=== PATIENT | female | born 1940 | race Caucasian/White ===

== ENCOUNTER 2021-09-23 14:32 | Emergency (ER) | payer MEDICARE, BC, SELFPAY ==
[2021-09-23 15:03] VITALS: BP 169/68; PULSE 57; RESP 18; TEMP 36.4; O2SAT 97; BMI 26.0
--- NOTE | 2021-09-23 16:29 | CRLHL7_ITS ---
For Patients: As a result of the Century Cures Act, medical imaging exams and procedure reports are released immediately into your electronic medical record. You may view this report before your referring provider. If you have questions, please contact your health care provider. Indication: Trauma. Technique: Three views of the left shoulder. Comparison: None. Findings/impression: Bones: Generalized demineralization of visualized bones. Displaced mildly comminuted fracture of the proximal humerus.. The humeral head appears to be in alignment with the glenoid. The fractured neck of the humerus is displace superior medially. Joint spaces: Unremarkable. Soft tissues: Soft tissue swelling surrounding the fracture site.. Dictated by Melissa De La Cruz MD @ 09/23/2021 6:46:20 PM (Electronically Signed)
--- NOTE | 2021-09-23 16:29 | CRLHL7_ITS ---
For Patients: As a result of the Century Cures Act, medical imaging exams and procedure reports are released immediately into your electronic medical record. You may view this report before your referring provider. If you have questions, please contact your health care provider. Indication: Wrist injury. Technique: Three views. Comparison: . Findings/impression: Bones: Demineralization of the visualized bones. There is comminuted intra-articular minimally displaced fracture of the distal radius and ulna.. Joint spaces: Severe degenerative changes in the visualized wrist and hand. . Soft tissues: Soft tissue swelling surrounding the fracture site.. Dictated by Melissa De La Cruz MD @ 09/23/2021 6:43:53 PM (Electronically Signed)
[2021-09-23] MEDS: ACETAMINOPHEN 500 MG TABLET 1000 MG PO (16:37)
[2021-09-23 17:14] VITALS: BP 135/79; PULSE 61; O2SAT 98
[2021-09-23 17:41] VITALS: BP 184/58; PULSE 59; O2SAT 98
[2021-09-23 18:00] VITALS: BP 177/54; PULSE 61; O2SAT 97
[2021-09-23 18:30] VITALS: BP 173/59; PULSE 60; O2SAT 96
[2021-09-23 19:00] VITALS: BP 176/61; PULSE 63; O2SAT 95
--- NOTE | 2021-09-23 19:06 | ED_ITS ---
HPI - General Adult General Date Seen: 09/23/21 Chief complaint: Shoulder Injury/Pain Stated complaint: Fall w/Head Lac, Left Shoulder Pain Time Seen by Provider: 09/23/21 16:21 Source: patient History of Present Illness HPI narrative: Patient is an 80-year-old woman who is here with her fiance, arrives from home after having a fall. She says that her legs got twisted together and she fell, she caught herself with her left arm, she complains of pain primarily in the left shoulder although her left wrist hurts as well. She hit her face on the ground as well and the left side of her glasses cut her eyebrow as well. She denies any loss of consciousness, she does not have any headache or neck pain. She does not take any blood thinners. She is right-handed. She denies any other traumatic complaints, such as chest or back pain, shortness of breath, abdominal pain. She does not have any complaints of weakness or numbness in the left arm. Related Data Home Medications Medication Instructions Recorded Confirmed alendronate 70 mg tablet mg PO 09/23/21 cefdinir 300 mg capsule mg 09/23/21 furosemide 40 mg tablet mg 09/23/21 hydroxychloroquine 200 mg tablet mg PO 09/23/21 methotrexate sodium 2.5 mg tablet mg 09/23/21 prednisone 1 mg tablet mg 09/23/21 Allergies Allergy/AdvReac Type Severity Reaction Status Date / Time Opioids - Morphine Analogues Allergy Verified 09/23/21 16:37 Review of Systems Status of ROS: Reports: 10 or more systems reviewed and unremarkable except as noted in History and below [facility] Social History Smoking Status: Never smoker Do you use any of these nicotine containing products: None Second hand tobacco smoke exposure: No How often do you have a drink containing alcohol: never How often do you have six or more drinks on one occasion: Never AUDIT-C Alcohol total score: 0 Non-prescribed substance use: denies use Exam Narrative: Exam Narrative: Vital signs as noted below. In general, an alert, nontoxic elderly woman. Head: Normocephalic. She has a 1 cm laceration along the left brow ridge laterally. The knee is controlled. Eyes: Pupils are equal reactive. Extraocular movements are full. Conjunctivae are normal. ENT: Mucous membranes are moist. She has bruising noted lateral to the left eye. She has no bony tenderness or deformity. Dentition is intact. Jaws nontender. Neck: Supple without lymphadenopathy. No bony tenderness. Heart: Regular rate and rhythm. No murmur or rub. Lungs: Clear bilaterally. No increased work of breathing, crackles or wheezes. Chest is atraumatic. Abdomen: Soft and nontender. No organomegaly. Back: Nontender to palpation. Extremities: Well perfused. Pulses intact bilaterally. On the left, she has swelling and tenderness of the left shoulder, swelling, bruising and tenderness of the left wrist. Radial pulses intact, distal CMS normal. Pain with range of motion of the left hand. Neurologic: Patient is alert and oriented to person and place. Speech is fluent. Face is symmetric. Moves all extremities equally. Affect: Normal. Skin: Warm and dry. Well perfused. Const: Vital Signs, click to edit/add: Vital Signs - 24 hr 09/23/21 15:03 09/23/21 17:14 09/23/21 17:41 Temperature 97.6 F Pulse Rate [Right Pulse Oximeter] 57 L 61 59 L Respiratory Rate 18 Blood Pressure [Ri ght Upper Arm] 169/68 H 135/79 184/58 H Pulse Oximetry 97 98 98 09/23/21 18:00 Temperature Pulse Rate [Right Pulse Oximeter] 61 Respiratory Rate Blood Pressure [Ri ght Upper Arm] 177/54 H Pulse Oximetry 97 Documenting provider has reviewed patient's vital signs: yes Course Course Hospital Course: Following initial evaluation, I ordered x-rays of the left shoulder and left wrist. In terms of pain management, she says she does not do well with anything stronger than Tylenol. She did have Tylenol 1000 mg here, and we had ice on her shoulder as well. X-rays of the shoulder by my review show a proximal humerus fracture. Final radiology report is likewise read as showing a mildly displaced proximal humerus fracture. With regard to the wrist, by my review she has a minimally displaced fracture of the radius and ulna, she does not have significant angulation. This does involve the articular surface. Final radi ology review is of a comminuted intra-articular minimally displaced fracture of the distal radius and ulna. I do not think this requires any reduction, therefore I splinted it in place, sandwich splint using Ortho Glass and to Narendra wraps. She tolerated this well. CMS is intact. Procedure note: The laceration on her eyebrow was amenable to Dermabond. I cleaned it using normal saline, approximated the edges and closed with Dermabond. She tolerated this well. No immediate complication. We discussed routine wound care, return for signs of infection. Orthopedic follow-up early to mid next week. Tylenol and ice as needed. Vital Signs Vital signs: Initial Vital Signs Temperature 97.6 F 09/23/21 15:03 Temperature Source Temporal Artery Scan 09/23/21 15:03 Pulse Rate 57 L 09/23/21 15:03 Respiratory Rate 18 09/23/21 15:03 Blood Pressure 169/68 H 09/23/21 15:03 Blood Pressure Mean 101 09/23/21 15:03 Pulse Oximetry 97 09/23/21 15:03 Oxygen Delivery Method 09/23/21 15:03 Vital Signs Temperature 97.6 F 09/23/21 15:03 Pulse Rate 57 L 09/23/21 15:03 Respiratory Rate 18 09/23/21 15:03 Blood Pressure 169/68 H 09/23/21 15:03 Pulse Oximetry 97 09/23/21 15:03 Temperature 97.6 F 09/23/21 15:03 Pulse Rate 61 09/23/21 18:00 Respiratory Rate 18 09/23/21 15:03 Blood Pressure 177/54 H 09/23/21 18:00 Pulse Oximetry 97 09/23/21 18:00 Discharge Plan Discharge Clinical Impression: Closed fracture of left distal radius, Closed fracture of left proximal humerus, Laceration of eyebrow, left Patient Disposition: Home, Self-Care Condition: Improved Instructions: Arm Fracture in Adults (ED), Wrist Fracture in Adults (ED), Skin Adhesive Care (ED) Additional Instructions: Splint to remain in place until follow-up with Orthopedics. Sling to left arm as well for shoulder fracture. Tylenol as needed for pain, ice will help with your shoulder fracture as well. Return for signs of infection of your laceration. Glue will slough off on its own, but if this is taking longer than you would like, acetone nail Azerbaijani remover will help with dissolving the glue. Laceration should be healed in 7-10 days. Prescriptions: No Action furosemide 40 mg tablet 0RF Label Comments: TAKE 1/2 TABLET BY MOUTH TWICE DAILY alendronate 70 mg tablet PO 0RF Label Comments: TAKE ONE TABLET BY MOUTH EVERY 7 DAYS TAKE WITH 8OZ OF WATER ON AN. EMPTY STOMACH REMAIN UPRIGHT FOR 30MIN methotrexate sodium 2.5 mg tablet 0RF Label Comments: TAKE 5 TABLETS BY MOUTH EVERY WEEK prednisone 1 mg tablet 0RF Label Comments: TAKE 1 TABLET BY MOUTH EVERY DAY hydroxychloroquine 200 mg tablet PO 0RF Label Comments: TAKE 1 TABLET BY MOUTH TWICE DAILY cefdinir 300 mg capsule 0RF Label Comments: TAKE 1 CAPSULE (300 MG TOTAL) BY MOUTH EVERY 12 (TWELVE) HOURS FOR 10 DAYS. Follow Up/Referrals: Provider,Not a Local [Primary Care Provider] - Stand Alone Forms: MyHealth Info Instructions
== END 2021-09-23 19:56 | disposition home or self-care (01) ==
PROVIDERS: Emergency Provider Emergency Medicine
DX: S01.112A Laceration without foreign body of left eyelid and periocular area, initial encounter (principal); S52.502A Unspecified fracture of the lower end of left radius, initial encounter for closed fracture; S42.202A Unspecified fracture of upper end of left humerus, initial encounter for closed fracture; W01.0XXA Fall on same level from slipping, tripping and stumbling without subsequent striking against object, initial encounter
CPT/HCPCS: 29105; 73030; 73110; 99284; A9270

== ENCOUNTER 2021-10-04 05:08 | Inpatient (IN) | payer MEDICARE, BC, SELFPAY ==
[2021-10-04] VITALS (14 sets, daily range): BP systolic 107–196; BP diastolic 46–73; PULSE 62–80; RESP 14–20; TEMP 36.1–37; O2SAT 94–100; BMI 27.8
--- NOTE | 2021-10-04 05:55 | ED.NAVMDI ---
HPI - Nausea/Vomiting/Diarrhea General Time Seen by Provider: 05:40 Date Seen: 10/04/21 Chief complaint: Nausea/Vomiting Stated complaint: nausea Time Seen by Provider: 10/04/21 05:17 Source: patient, RN notes reviewed and old records reviewed Mode of arrival: wheelchair History of Present Illness HPI Narrative: Vanessa is a very pleasant female with a history rheumatoid arthritis who comes to the emergency room with her niece for evaluation regarding nausea. Patient unfortunately fell on September 23 at which time she fractured her forearm as well as her left shoulder. She followed up with a preoperative physical but was told by orthopedics that her sodium was too low and therefore they could not operate. She initially attempted to control her pain with narcotics but these made her very sick and that she has been taking Tylenol every 4 hours. She notes at that nausea was intermittent but is now been persistent and she has not been eating. She also notes that she has not had a bowel movement in 4 days. She denies abdominal pain at this time. She has not had any vomiting. She denies a fever or chills. Patient also has continued left arm pain definitely worsened with any sort of movement. She also has itching of the skin on the volar distal humerus and volar forearm. Patient states that she is ?a mess?. She notes that she is not doing well alone at home but does not want to go to a chcf at this time. Associated nausea: Yes Related Data Home Medications Medication Instructions Recorded Confirmed alendronate 70 mg tablet 70 mg PO Q7D 09/23/21 10/04/21 cefdinir 300 mg capsule 300 mg PO Q12H 09/23/21 10/04/21 furosemide 40 mg tablet 20 mg PO BID 09/23/21 10/04/21 hydroxychloroquine 200 mg tablet 200 mg PO DAILY 09/23/21 10/04/21 methotrexate sodium 2.5 mg tablet 12.5 mg PO .weekly 09/23/21 10/04/21 prednisone 1 mg tablet 1 mg PO DAILY 09/23/21 10/04/21 carvedilol 25 mg tablet 25 mg PO BID 09/28/21 10/04/21 Previous Rx's Medication Instructions Recorded hydrocodone 5 mg-acetaminophen 325 1 - 2 tab PO Q4-6H PRN #25 tab 09/28/21 mg tablet Allergies Allergy/AdvReac Type Severity Reaction Status Date / Time Opioids - Morphine Analogues Allergy Verified 09/28/21 10:34 Review of Systems Status of ROS: Reports: 10 or more systems reviewed and unremarkable except as noted in History and below Const: Denies: fever or chills ENMT: Denies: throat pain Cardio: Denies: chest pain or shortness of breath with exertion Resp: Denies: shortness of breath or cough GI: Reports: nausea; Denies: abdominal pain or vomiting : Reports: other (Must cath herself.) Musculo: Denies: back pain Neuro: Denies: headache PFSH PFSH Medical History Back problem High blood pressure Osteoarthritis Rheumatoid arthritis Family History Mother Stroke Brother Diabetes Father No problems noted. Social History Smoking Status: Never smoker Do you use any of these nicotine containing products: None Second hand tobacco smoke exposure: No How often do you have a drink containing alcohol: never How often do you have six or more drinks on one occasion: Never AUDIT-C Alcohol total score: 0 Non-prescribed substance use: denies use Exam Const: Vital Signs, click to edit/add: Vital Signs - 24 hr 10/04/21 05:16 10/04/21 06:57 10/04/21 07:44 Temperature 98.6 F Pulse Rate [Right Pulse Oximeter] 62 65 68 Respiratory Rate 20 20 18 Blood Pressure [Ri ght Upper Arm] 186/62 H 162/58 H 149/57 H Pulse Oximetry 97 96 97 Documenting provider has reviewed patient's vital signs: yes Common normals: average body habitus and oriented x3 General appearance: other (Patient appears uncomfortable and is very guarded in movement of the left a) Other: Patient is very fatigued in appearance. HENMT: Common normals: normocephalic, head/scalp atraumatic and external ears normal Head and scalp: normocephalic and atraumatic External ear: external ears normal Eye: Common normals: PERRL and EOMs intact bilaterally Pupil: PERRL Other: healing laceration at left eyebrow. Resolving ecchymosis around left eye Neck & C-Spine: Common normals: full ROM and supple Resp: Common normals: normal respiratory effort and clear to auscultation bilaterally Effort & inspection: able to speak in complete sentences Auscultation: clear to auscultation bilaterally Cardio: Common normals: regular rate and regular rhythm Rate: regular rate Rhythm: regular rhythm GI: Common normals: Normal to inspection, nondistended, normoactive bowel sounds present, soft to palpation and non-tender Palpation: soft : Common normals: no CVA tenderness Bladder/kidney exam: no CVA tenderness Back & Pelvis: Common normals: no CVA tenderness Extremity: General: normal exam except as noted and other findings (Left arm ecchymosis and dependent hematoma left) Neuro: Anjana Coma Scale: document GCS findings [place] coma scale eye opening: Spontaneous (4) [place] coma scale verbal response: Orientated (5) [place]jana coma scale motor response: Obey commands (6) Anjana coma scale total score: 15 Common normals: oriented x3 Speech: speech normal Psych: Common normals: speech normal Appearance: grossly normal Activity/motor behavior: appropriate eye contact Speech: normal speech Insight: insight good Judgement: judgment good Course Course Hospital Course: Patient is noted to have had a fall 11 days ago and was told that she would not be able to have surgery because of hyponatremia. Unfortunately I cannot find any record of those values. Today we will check a comprehensive panel, CBC, amylase and lipase. Will also have an IV placed in give patient normal saline as she has had poor p.o. intake the past few days as well as Zofran. We did talk about the use of morphine and that she is intolerant to the narcotics but I do think with the Zofran pre dosing we may be able to adequately control her pain. In regards to her nausea this certainly could be related to constipation but may also be related to pain and consistent use of Tylenol. Will ensure recheck liver function test. Reevaluation(s) Reevaluation #1: Patient has had mild relief with 2 mg of morphine and 4 mg of Zofran. We will give her an additional 2 mg of morphine. Time: 06:50 Reevaluation #2: Patient noted to be feeling somewhat improved but nausea is returning. Will follow with 0 0.25 mg of Ativan. Laboratory values are returning but somewhat slowly. Will hold off on any abdominal radiological studies at this time. Patient does not think she can manage at home and yet is not interested in the possibility of chcf placement. Time: 07:15 Reevaluation #3: 0800: patient noted to now be vomiting. Will administer an additional 4mg of zofran. Sodium returns at 123. Awaiting POC creatinine as lab analyzer is down. patient signed out to Dr Lee for further lab and CT results Vital Signs Vital signs: Initial Vital Signs Temperature 98.6 F 10/04/21 05:16 Temperature Source Temporal Artery Scan 10/04/21 05:16 Pulse Rate 62 10/04/21 05:16 Respiratory Rate 20 10/04/21 05:16 Blood Pressure 186/62 H 10/04/21 05:16 Blood Pressure Mean 103 10/04/21 05:16 Blood Pressure Position Supine 10/04/21 05:16 Pulse Oximetry 97 10/04/21 05:16 Vital Signs Temperature 98.6 F 10/04/21 05:16 Pulse Rate 62 10/04/21 05:16 Respiratory Rate 20 10/04/21 05:16 Blood Pressure 186/62 H 10/04/21 05:16 Pulse Oximetry 97 10/04/21 05:16 Temperature 98.6 F 10/04/21 05:16 Pulse Rate 68 10/04/21 07:44 Respiratory Rate 18 10/04/21 07:44 Blood Pressure 149/57 H 10/04/21 07:44 Pulse Oximetry 97 10/04/21 07:44 MDM - Nausea/Vomiting/Diarrhea MDM Narrative Medical decision making narrative: Due to machine dysfunction in the lab we are still awaiting a lot of our chemistry values. Of note white count within normal limits with the exception of hemoglobin which is low at 9.2. Patient started vomiting in the ED. This had not been present previously. Will obtain CT of the abdomen and pelvis with contrast. Point of care troponin pending Given patient's hyponatremia will admit to the floor. Will speak with Dr. Oliva hospitalist. 1. Hyponatremia -123. Patient is receiving normal saline a 1000 mils over 2 hours. 2. Nausea vomiting-abdominal CT results pending 3. Pain from fracture-patient fractured left humerus and left forearm on September 23. Intolerant to narcotics at home and has been using Tylenol every 4 hours. Awaiting LFTs. Unable to tolerate NSAIDs given the use of methotrexate and prednisone for her rheumatoid arthritis. She has received morphine 2 mg x 2, Ativan 0.25 mg x 1, Zofran 4 mg x 2, and finally fentanyl 25 mcg IV. 4. Disposition-admit to [facility]. I have great concerns regarding her discharge status. I do believe she is in need of more care in the form of a chcf but she is adamant that she does not want to to the chcf. This patient is signed out to my partner Dr. Lee, for review of further available laboratory values and CT. Medical Records Attestation: I reviewed the patient's medical records. Medical records narrative: Have reviewed previous labs. Lab Data Lab results narrative: Laboratory values of CBC and lactate have been reviewed. Labs: Lab Results 10/04/21 10/04/21 10/04/21 Range/Units 06:17 06:17 06:17 WBC 6.34 (4.50-11.00) K/uL RBC 2.94 L (4.00-5.20) m/uL Hgb 9.2 L (12.0-16.0) gm/dL Hct 27.4 L (33.0-51.0) % MCV 93 (80-100) fL MCH 31 (26-34) pg MCHC 34 (32-36) gm/dL RDW Coeff of Randa 15.1 (11.5-15.5) % Plt Count 375 (140-440) K/uL Neut % (Auto) 72.2 H (42.0-72.0) % Lymph % (Auto) 16.1 L (20-44) % [place] % (Auto) 7.4 (0.0-11.0) % Eos % (Auto) 3.0 (0.0-7.0) % Baso % (Auto) 0.8 (0.0-3.0) % Neut # (Auto) 4.60 (1.7-7.0) K/uL Lymph # (Auto) 1.00 (0.90-2.90) K/uL [place] # (Auto) 0.50 (0.00-0.90) K/UL Eos # (Auto) 0.19 (0.00-0.50) K/uL Baso # (Auto) 0.05 (0.00-0.30) K/uL Abs Immat Gran (auto) 0.03 (0.00-0.30) K/uL Sodium 123 L* (135-149) mmol/L Potassium 3.8 (3.6-5.1) mmol/L Chloride 91 L (96-114) mmol/L Carbon Dioxide 25 (20-32) mmol/L Glucose 110 (60-115) mg/dL Lactate 0.7 (0.5-1.9) mmol/L POC Creatinine (0.6-1.3) mg/dl 10/04/21 Range/Units 08:30 WBC (4.50-11.00) K/uL RBC (4.00-5.20) m/uL Hgb (12.0-16.0) gm/dL Hct (33.0-51.0) % MCV (80-100) fL MCH (26-34) pg MCHC (32-36) gm/dL RDW Coeff of Randa (11.5-15.5) % Plt Count (140-440) K/uL Neut % (Auto) (42.0-72.0) % Lymph % (Auto) (20-44) % [place] % (Auto) (0.0-11.0) % Eos % (Auto) (0.0-7.0) % Baso % (Auto) (0.0-3.0) % Neut # (Auto) (1.7-7.0) K/uL Lymph # (Auto) (0.90-2.90) K/uL [place] # (Auto) (0.00-0.90) K/UL Eos # (Auto) (0.00-0.50) K/uL Baso # (Auto) (0.00-0.30) K/uL Abs Immat Gran (auto) (0.00-0.30) K/uL Sodium (135-149) mmol/L Potassium (3.6-5.1) mmol/L Chloride (96-114) mmol/L Carbon Dioxide (20-32) mmol/L Glucose (60-115) mg/dL Lactate (0.5-1.9) mmol/L POC Creatinine 0.8 (0.6-1.3) mg/dl Discharge Plan Discharge Clinical Impression: Pain due to fracture, Hyponatremia, Vomiting Patient Disposition: Admitted As Inpatient
[2021-10-04] MEDS: ONDANSETRON 2 MG/ML inj 4 MG IVP ×2 (06:10→08:22)
[2021-10-04] MEDS: 0.9 % SODIUM CHLORIDE 1000 ml 1,000 ML 500 ML IV (06:10)
[2021-10-04] MEDS: MORPHINE 4 MG/ML INJ 2 MG IVP (06:10)
[2021-10-04 06:25] LABS: Lactate* 0.7 mmol/L (0.5-1.9)
[2021-10-04 06:27] LABS: Basophils Absolute Auto 0.05 K/uL (0.00-0.30); Basophils Percent Auto 0.8 % (0.0-3.0); Eosinophils Absolute Auto 0.19 K/uL (0.00-0.50); Hematocrit 27.4 % (33.0-51.0); Hemoglobin* 9.2 gm/dL (12.0-16.0); Immature Granulocytes Abs Auto 0.03 K/uL (0.00-0.30); Lymphocytes Percent Auto 16.1 % (20-44); Mean Corpuscular HGB Conc 34 gm/dL (32-36); Mean Corpuscular Hemoglobin 31 pg (26-34); Mean Corpuscular Volume 93 fL (80-100); Monocytes Percent Auto 7.4 % (0.0-11.0); Neutrophils Percent Auto 72.2 % (42.0-72.0); Platelet Count* 375 K/uL (140-440); RDW Coefficient of Variation % 15.1 % (11.5-15.5); Red Blood Count 2.94 m/uL (4.00-5.20); White Blood Count* 6.34 K/uL (4.50-11.00)
[2021-10-04 06:29] LABS: Slide Review Reflex No
[2021-10-04] MEDS: MORPHINE 2 MG/ML inj IVP (06:56)
[2021-10-04] MEDS: LORazepam 2 MG/ML inj 0.25 MG IVP (07:41)
[2021-10-04 08:08] LABS: Chloride* 91 mmol/L (96-114); Potassium* 3.8 mmol/L (3.6-5.1)
[2021-10-04 08:09] LABS: Carbon Dioxide* 25 mmol/L (20-32); Sodium* 123 mmol/L (135-149)
--- NOTE | 2021-10-04 08:11 | ED.NURSE ---
dr house informed of na of 123. jean delgado aware of admission. was nauseated and retching. dr house was informed.
[2021-10-04 08:15] LABS: Glucose* 110 mg/dL (60-115)
--- NOTE | 2021-10-04 08:39 | CRLHL7_ITS ---
For Patients: As a result of the Century Cures Act, medical imaging exams and procedure reports are released immediately into your electronic medical record. You may view this report before your referring provider. If you have questions, please contact your health care provider. Indication: Abdominal pain and vomiting Technique: Postcontrast CT abdomen and pelvis. 69 cc Isovue 370 intravenous contrast. Please note that all CT scans at this facility use dose modulation, iterative reconstruction, and/or weight-based dosing when appropriate to reduce radiation dose to as low as reasonably achievable. Comparison: None Findings: In the right middle lobe, there is focal masslike opacity measuring 1.5 cm, series 3, image 21. Thickening of the interlobular septa in both lung bases also noted along with dependent atelectasis. No pleural effusion. There is cardiomegaly. Intrahepatic and extrahepatic biliary duct dilation is present with the common bile duct measuring up to 1.2 cm and the common hepatic duct measuring up to 2.3 cm. Gallbladder absent. Mild prominence of the pancreatic duct is also present. The pancreatic parenchyma is normal. The spleen is not enlarged. Adrenal glands normal. No hydronephrosis or solid renal mass. No adenopathy or free air. No free fluid or abscess. Bladder is distended. Postop changes to the pelvis noted including hysterectomy. Sigmoid diverticulosis. No bowel obstruction. No diverticulitis. Small bowel loops appear normal. Grade 1 degenerative spondylolisthesis of L4 on L5. Multilevel degenerative disc disease and facet degeneration. Fusion of the L1-2 vertebral bodies. Impression: Mild sigmoid diverticulosis. No diverticulitis. Moderate colonic stool particularly in the right abdomen. No mechanical bowel obstruction. Intrahepatic and extrahepatic biliary duct dilation. Recommend correlation with LFTs. 1.5 cm masslike opacity right middle lobe, indeterminate. Mild CHF. Please note that all CT scans at this facility use dose modulation, iterative reconstruction, and/or weight-based dosing when appropriate to reduce radiation dose to as low as reasonably achievable. Dictated by Eliseo Gutierrez MD @ 10/04/2021 9:49:25 AM (Electronically Signed)
[2021-10-04 08:43] LABS: Creatinine, Point-of-Care* 0.8 mg/dl (0.6-1.3)
[2021-10-04] MEDS: fentaNYL 100 MCG/2 ML inj 25 MCG IVP (09:22)
[2021-10-04 10:36] LABS: Appearance Urine Cloudy (Clear); Bilirubin Urine Negative (Negative); Blood Urine Trace-intact (Negative); Color Urine Yellow (Yellow); Glucose Urine Negative (Negative); Ketones Urine Negative (Negative); Nitrite Urine Positive (Negative); Protein Urine Negative (Negative); Urobilinogen Urine 0.2 (0.2-1.0)
[2021-10-04 10:37] LABS: Bacteria Urine Many; Leukocyte Esterase Urine 3+ (Negative); RBC Urine 0-2 (0-2); WBC Urine 25-50 (0-5)
[2021-10-04 11:18] LABS: SARS PCR* Negative SARS-CoV-2 (Negative)
[2021-10-04] MEDS: PROCHLORPERAZINE 10 MG TABLET 5 MG PO (11:23)
[2021-10-04 11:24] LABS: Alanine Aminotransferase* 60 U/L (4-35); Albumin* 2.9 g/dL (3.3-5.0); Aspartate Amino Transferase* 58 U/L (12-35); Bilirubin Total* 0.6 mg/dL (0.1-1.5); Blood Urea Nitrogen* 16 mg/dL (7-30); Calcium* 7.8 mg/dL (8.4-10.6); Creatinine* 0.8 mg/dL (0.5-1.5); Estimated Glomerular Filt Rate 73.98; Total Protein* 6.4 g/dL (6.0-8.3)
[2021-10-04 11:25] LABS: Alkaline Phosphatase* 75 U/L (40-150); Lipase* 163 U/L (23-300)
[2021-10-04 11:26] LABS: Amylase* 70 U/L (18-89)
--- NOTE | 2021-10-04 12:48 | ED.NURSE ---
awaiting admission. higginbotham catheter emptied of 1000 ml of cloudy urine.
--- NOTE | 2021-10-04 13:20 | ED.NURSE ---
report was given to adri houser to 256 via cart. abigail has gone home.
--- NOTE | 2021-10-04 14:51 | PC.NURSE ---
End of Shift: Patient arrived to the floor in a cart at about 1322, A/Ox3. Patient was two assist to ambulate to the floor, patient ambulates very slowly. Patient hypertensive but stable, lungs clear, BS WNL, IV intact. Patient rated left shoulder/arm pain a 3/10, active ice applied to left arm. Patient has a higginbotham, intact and draining. Patient has a cast on left arm. Patient's left arm is swollen above the arm and at the fingers. Patient has several bruises throughout the body, bilateral legs, arms, left arm.
--- NOTE | 2021-10-04 16:37 | PM.IMHP1 ---
Hospitalist- H&P: HPI History of Present Illness Time Seen by Provider: 16:37 Date Seen: 10/04/21 Chief complaint: nausea Narrative: Vanessa Andino is a 80 year old female who presents with 1 day of feeling poorly with fatigue, malaise, nausea, vomiting, weakness. She had fallen and fractured her proximal humerus and distal radius and ulna of her left upper extremity on September 23. She was managing at home with a sling and a splint on her forearm. She was seen in clinic 6 days ago where she had a cast put on her arm and a recommendation for conservative management of her proximal humerus fracture. She was also prescribed hydrocodone acetaminophen. It caused her to be quite nauseated so she stopped taking it after a couple days. she has only been taking acetaminophen for the last few days. Her pain is not well controlled but she is otherwise managing okay until the last day when she got severe nausea and recurrent dry heaving. She is not having abdominal pain. She is not having a fever. She has not had a recent bowel movement but she is not eating or drinking much. She has possibly going to have shoulder surgery this week for her humerus fracture. Review of Systems Narrative: She reports no recent illness, fever, cold, cough, chest pain, shortness of breath. She has no abdominal pain but severe nausea and loss of appetite. She has not had a bowel movement recently. She has not had any blood in her emesis. She reports she is primarily having dry heaves. Her stools have been normal but infrequent recently. No urinary problems. [facility] Medical History Back problem High blood pressure History of DVT (deep vein thrombosis) Hyperlipidemia Osteoarthritis Recurrent urinary tract infection Rheumatoid arthritis Sacral nerve stimulator present Stage 3 chronic kidney disease Surgical History H/O hysterectomy with oophorectomy History of cholecystectomy S/P total knee arthroplasty Family History (Updated 10/04/21 @ 16:50 by Jose Oliva MD) Mother Stroke Rheumatoid arthritis Brother Diabetes Coronary artery disease Father Pancreatic cancer Social History (Updated 10/04/21 @ 16:52 by Jose Oliva MD) Narrative: patient lives independently with her significant other, Cirilo Chambers. She has a niece, Peg. Those 2 would be healthcare power of personal injury attorney. Code status is full. Highest level of school completed/degree received: some college, no degree Smoking Status: Never smoker Do you use any of these nicotine containing products: None Second hand tobacco smoke exposure: No How often do you have a drink containing alcohol: never How often do you have six or more drinks on one occasion: Never AUDIT-C Alcohol total score: 0 Non-prescribed substance use: denies use Caffeine: Yes (1/2 cup of coffee a day) Gender Identity: female service: No Meds Home Medications and Allergies Home Medications Medication Instructions Recorded Confirmed Type alendronate 70 mg tablet 70 mg PO Q7D 09/23/21 10/04/21 History furosemide 40 mg tablet 20 mg PO BID 09/23/21 10/04/21 History hydroxychloroquine 200 mg tablet 200 mg PO BID 09/23/21 10/04/21 History methotrexate sodium 2.5 mg tablet 12.5 mg PO .weekly 09/23/21 10/04/21 History prednisone 1 mg tablet 1 - 2 mg PO DAILY 09/23/21 10/04/21 History carvedilol 25 mg tablet 25 mg PO BID 09/28/21 10/04/21 History aspirin 81 mg tablet,delayed 81 mg PO DAILY 10/04/21 10/04/21 History release (Adult Aspirin Regimen) calcium carbonate 600 mg-vitamin 1 tab PO DAILY 10/04/21 10/04/21 History D3 10 mcg (400 unit) tablet (Calcium 600 + D(3)) multivitamin 1 tab PO DAILY 10/04/21 10/04/21 History Allergies Allergy/AdvReac Type Severity Reaction Status Date / Time Opioids - Morphine Analogues Allergy Verified 09/28/21 10:34 Exam Narrative: Exam Narrative: She is alert and appears in no distress. She gives her own history. She is oriented to her circumstances. Head is notable for bruising and a laceration around her left eye. This has been repaired with medical glue. No other head trauma. Eyes are normal. Oropharynx with dry mucous membranes. Neck is supple without mass or adenopathy. Respirations are clear to auscultation. Left upper extremity has marked bruising from the glenohumeral joint all the way down to the elbow. This area is tender to fairly light touch. No gross malalignment. No evidence of infection or break in the skin. The forearm on the left is in a fiberglass cast. Fingers are with normal sensation and motion and capillary refill. Right upper extremity is normal. Cardiovascular: S1, S2, regular rate and rhythm. Abdomen: Bowel sounds active. Abdomen is soft without tenderness or mass. Lower extremities are normal. No significant edema. Intact pedal pulses. She moves her lower extremities well and symmetric strength. Const: Vital Signs, click to edit/add: Vital Signs - 24 hr 10/04/21 05:16 10/04/21 06:57 10/04/21 07:44 Temperature 98.6 F Pulse Rate [Pulse Oximeter] Pulse Rate [Right Brachial] Pulse Rate [Right Pulse Oximeter] 62 65 68 Respiratory Rate 20 20 18 Blood Pressure [Ri ght Arm] Blood Pressure [Ri ght Upper Arm] 186/62 H 162/58 H 149/57 H Pulse Oximetry 97 96 97 10/04/21 08:00 10/04/21 09:41 10/04/21 10:00 Temperature Pulse Rate [Pulse Oximeter] Pulse Rate [Right Brachial] Pulse Rate [Right Pulse Oximeter] 72 74 72 Respiratory Rate Blood Pressure [Ri ght Arm] Blood Pressure [Ri ght Upper Arm] 151/54 H 169/65 H 160/58 H Pulse Oximetry 97 94 97 10/04/21 11:00 10/04/21 12:35 10/04/21 13:38 Temperature 98.5 F Pulse Rate [Pulse Oximeter] 80 Pulse Rate [Right Brachial] Pulse Rate [Right Pulse Oximeter] 71 74 Respiratory Rate 18 20 14 Blood Pressure [Ri ght Arm] 196/73 H Blood Pressure [Ri ght Upper Arm] 148/55 H 158/69 H Pulse Oximetry 96 100 96 10/04/21 15:00 Temperature 98.4 F Pulse Rate [Pulse Oximeter] 80 Pulse Rate [Right Brachial] 71 Pulse Rate [Right Pulse Oximeter] Respiratory Rate 16 Blood Pressure [Ri ght Arm] 184/73 H Blood Pressure [Ri ght Upper Arm] Pulse Oximetry 96 Documenting provider has reviewed patient's vital signs: yes Hospitalist - H&P: Result Labs Labs: Short CBC 10/04/21 Range/Units 06:17 WBC 6.34 (4.50-11.00) K/uL Hgb 9.2 L (12.0-16.0) gm/dL Hct 27.4 L (33.0-51.0) % Plt Count 375 (140-440) K/uL BMP 10/04/21 06:17 Sodium 123 L* Potassium 3.8 Chloride 91 L Carbon Dioxide 25 BUN 16 Creatinine 0.8 Glucose 110 Calcium 7.8 L Liver Function 10/04/21 Range/Units 06:17 Total Bilirubin 0.6 (0.1-1.5) mg/dL AST 58 H (12-35) U/L ALT 60 H (4-35) U/L Alkaline Phosphatase 75 (40-150) U/L Albumin 2.9 L (3.3-5.0) g/dL Urine 10/04/21 Range/Units 10:20 Urine Color Yellow (Yellow) Urine Appearance Cloudy A (Clear) Urine pH 7.0 (5.0-8.5) Ur Specific [place] 1.020 (1.000-1.030) Urine Protein Negative (Negative) Urine Glucose (UA) Negative (Negative) Assessment and Plan Assessment and plan (1) Intractable vomiting: Problem comment: Cause is uncertain. Clearly she has poor tolerance for opioid medicines but has had none for the last few days. Status: Acute (2) Urinary retention: Problem comment: She does self catheterization at home. She tells me she is able to do it at home with some difficulty with her fracture. Status: Acute (3) Pain due to fracture: Problem comment: Pain control is not optimal. I am going to start a lower dose of naproxen to see if that will help. Very poorly tolerant of opioids Status: Acute (4) Hyponatremia: Problem comment: fluid restriction with normal saline and monitoring for recovery. Sodium 4 days ago was 129 Status: Acute (5) Closed fracture of left distal radius: Problem comment: 1. Closed treatment of a closed, acute left distal radius fracture, minimal displacement, neutral alignment on lateral view, dorsal comminution (date of injury 09/23/2021) Status: Acute (6) Closed fracture of left proximal humerus: Problem comment: 2. Closed treatment of a closed, acute left proximal humerus fracture (date of injury 09/23/2021) consult Ortho Status: Acute (7) Laceration of eyebrow, left: Problem comment: appears to be healing well Status: Acute
[2021-10-04] MEDS: predniSONE 1 MG TABLET PO (17:30)
[2021-10-04] MEDS: OMEPRAZOLE 20 MG CAPSULE DR PO (17:30)
[2021-10-04] MEDS: cefTRIAXone 1 GM in 0.9 % SODIUM CHLORIDE Mini-bag 100 ML IVPB (17:35)
[2021-10-04] MEDS: NAPROXEN 250 MG TABLET PO (17:36)
[2021-10-04 18:09] LABS: Sodium* 125 mmol/L (135-149)
[2021-10-04] MEDS: 0.9 % SODIUM CHLORIDE 1000 ml 1,000 ML 75 ML IV (19:13)
[2021-10-04] MEDS: carvediloL 25 MG TABLET PO (20:58)
[2021-10-04] MEDS: HYDROXYCHLOROQUINE 200 MG TABLET PO (20:58)
[2021-10-04] MEDS: ACETAMINOPHEN 325 MG TABLET 650 MG PO (20:58)
--- NOTE | 2021-10-04 22:53 | PC.NURSE ---
Patient has Vizcarra catheter in place that is patent and draining clear yellow urine. Encouraged to sit up in the chair - However patient is reluctant to move due to the pain in her left shoulder. Patient is turned and repositioned every 2 hours in bed. Denies nausea this evening and is able to have a yogurt and Ensure.
[2021-10-05] VITALS (7 sets, daily range): BP systolic 119–152; BP diastolic 32–59; PULSE 59–90; RESP 16–20; TEMP 36.6–36.8; O2SAT 97–98
[2021-10-05] MEDS: hydrOXYzine pamoate 25 MG CAPSULE PO (01:20)
--- NOTE | 2021-10-05 05:29 | PC.NURSE ---
Shift note 23-: Pt is A&O. Afebrile. Oxygen saturations >90% on RA. Pt initially restless and uncomfortable despite Tylenol, ice pack, and repositioning. Pt was unable to fall asleep and having pain to left shoulder/arm. updated and order received for PRN Vistaril x1, given to pt and pt has been sleeping soundly since. Vizcarra patent and draining. Denied N/V, SOB, and CP.
[2021-10-05] MEDS: OMEPRAZOLE 20 MG CAPSULE DR PO (06:16)
[2021-10-05] MEDS: ACETAMINOPHEN 325 MG TABLET 650 MG PO ×2 (06:18→21:40)
[2021-10-05 07:00] LABS: Basophils Absolute Auto 0.04 K/uL (0.00-0.30); Basophils Percent Auto 0.7 % (0.0-3.0); Eosinophils Absolute Auto 0.14 K/uL (0.00-0.50); Eosinophils Percent Auto 2.4 % (0.0-7.0); Hematocrit 26.2 % (33.0-51.0); Hemoglobin* 8.5 gm/dL (12.0-16.0); Immature Granulocytes Abs Auto 0.03 K/uL (0.00-0.30); Lymphocytes Absolute Auto 1.42 K/uL (0.90-2.90); Lymphocytes Percent Auto 24.8 % (20-44); Mean Corpuscular HGB Conc 32 gm/dL (32-36); Mean Corpuscular Hemoglobin 31 pg (26-34); Mean Corpuscular Volume 96 fL (80-100); Monocytes Percent Auto 9.8 % (0.0-11.0); Neutrophils Absolute Auto 3.54 K/uL (1.7-7.0); Neutrophils Percent Auto 61.8 % (42.0-72.0); Platelet Count* 351 K/uL (140-440); RDW Coefficient of Variation % 15.6 % (11.5-15.5); Red Blood Count 2.72 m/uL (4.00-5.20); White Blood Count* 5.73 K/uL (4.50-11.00)
[2021-10-05 07:24] LABS: Slide Review Reflex No
--- NOTE | 2021-10-05 07:31 | CRLHL7_ITS ---
For Patients: As a result of the Cures Act, medical imaging exams and procedure reports are released immediately into your electronic medical record. You may view this report before your referring provider. If you have questions, please contact your health care provider. Indication: Evaluate fracture Technique: Two views left humerus Comparison: Left shoulder 09/23/2021 Findings: Displaced proximal humeral fracture with mild comminution. The fracture is located at the surgical neck and does not appear to involve the tuberosities. Intact elbow with chronic spurring at lateral humeral epicondyle. Impression: Displaced and mildly comminuted fracture of the surgical neck proximal humerus. Dictated by Eliseo Gutierrez MD @ 10/05/2021 9:54:37 AM (Electronically Signed)
[2021-10-05 07:50] LABS: Chloride* 100 mmol/L (96-114)
[2021-10-05 07:51] LABS: Sodium* 128 mmol/L (135-149)
[2021-10-05 07:53] LABS: Est. Creatinine Clearance* 33.29
[2021-10-05 07:54] LABS: Blood Urea Nitrogen* 18 mg/dL (7-30); Calcium* 7.5 mg/dL (8.4-10.6); Carbon Dioxide* 26 mmol/L (20-32); Glucose* 95 mg/dL (60-115)
[2021-10-05 08:05] LABS: Albumin* 2.8 g/dL (3.3-5.0)
[2021-10-05 08:08] LABS: Alanine Aminotransferase* 39 U/L (4-35); Alkaline Phosphatase* 77 U/L (40-150); Aspartate Amino Transferase* 46 U/L (12-35); Bilirubin Direct* 0.4 mg/dL (0.0-0.5); Bilirubin Total* 0.5 mg/dL (0.1-1.5); Total Protein* 5.1 g/dL (6.0-8.3)
[2021-10-05] MEDS: MULTIVITAMIN/MINERALS 1 TABLET 1 TAB PO (08:54)
[2021-10-05] MEDS: HYDROXYCHLOROQUINE 200 MG TABLET PO ×2 (08:54→21:39)
[2021-10-05] MEDS: carvediloL 25 MG TABLET PO ×2 (08:54→21:39)
[2021-10-05] MEDS: predniSONE 1 MG TABLET 2 MG PO (08:55)
[2021-10-05] MEDS: NAPROXEN 250 MG TABLET PO ×2 (08:55→18:09)
[2021-10-05] MEDS: ASPIRIN 81 MG TABLET EC PO (08:55)
[2021-10-05] MEDS: 0.9 % SODIUM CHLORIDE 1000 ml 1,000 ML 75 ML IV (08:56)
[2021-10-05 10:13] LABS: Magnesium* 2.1 mg/dL (1.5-2.6)
--- NOTE | 2021-10-05 11:54 | PM.IMPN1 ---
Progress Note: A&P Assessment and plan (1) Intractable vomiting: Problem details: Appears to have resolved overnight. The cause remains uncertain. Continue to observe whether she can take in p.o. food and fluid today. Status: Acute (2) Urinary retention: Problem details: Vizcarra catheter removed today. Will assess whether she can self catheterization or needs nursing assistance. She does self catheterization at home. She tells me she is able to do it at home with some difficulty with her fracture. Status: Acute (3) Pain due to fracture: Problem details: Pain control is not optimal. I am going to start a lower dose of naproxen to see if that will help. Very poorly tolerant of opioids Status: Acute (4) Hyponatremia: Problem details: Gradually improving. DC normal saline. Monitor sodium. Sodium 4 days ago was 129 Status: Acute (5) Closed fracture of left distal radius: Problem details: 1. Closed treatment of a closed, acute left distal radius fracture, minimal displacement, neutral alignment on lateral view, dorsal comminution (date of injury 09/23/2021) Status: Acute (6) Closed fracture of left proximal humerus: Problem details: 2. Closed treatment of a closed, acute left proximal humerus fracture (date of injury 09/23/2021) consult Ortho Status: Acute (7) Laceration of eyebrow, left: Problem details: appears to be healing well Status: Acute (8) Prolonged QT interval: Problem details: Will use Phenergan for antiemetic. QTc is a 482. Status: Acute Time Spent With Patient Total time spent: Total time spent today is 40 minutes, 30 minutes in coordination of care and discussing with patient management of nausea vomiting, low sodium, humeral fracture. Subjective Date Seen: 10/05/21 Interval history: 80-year-old female seen in followup of hyponatremia, profound weakness, intractable nausea and vomiting, left humerus, distal radius and distal ulna fractures. She reports she slept well last night. This morning she reports her severe nausea and vomiting is better and she was able to eat breakfast. She feels stronger today. She has been seen by Physical therapy who sees that she needs the assist of 2 to get up and move. Exam Narrative: Exam Narrative: She is alert and appears in no distress. Mood and affect are brighter today. Respirations are clear to auscultation. Cardiovascular: S1, S2, regular rate and rhythm. Abdomen is soft without tenderness. Left upper extremity with marked bruising and swelling noted previously. Intact pulses and sensation. Const: Vital Signs, click to edit/add: Vital Signs - 24 hr 10/04/21 12:35 10/04/21 13:38 10/04/21 15:00 Temperature 98.5 F 98.4 F Pulse Rate [Pulse Oximeter] 80 80 Pulse Rate [Right Brachial] 71 Pulse Rate [Right Pulse Oximeter] 74 Respiratory Rate 20 14 16 Blood Pressure [Ri ght Arm] 196/73 H 184/73 H Blood Pressure [Ri ght Upper Arm] 158/69 H Pulse Oximetry 100 96 96 10/04/21 19:00 10/04/21 20:58 10/04/21 22:33 Temperature 97.0 F L 97.5 F L 97.5 F L Pulse Rate [Pulse Oximeter] 80 Pulse Rate [Right Brachial] Pulse Rate [Right Pulse Oximeter] Respiratory Rate 16 Blood Pressure [Ri ght Arm] 172/62 H Blood Pressure [Ri ght Upper Arm] Pulse Oximetry 97 10/04/21 23:45 10/05/21 03:00 10/05/21 07:34 Temperature 97.8 F 98.2 F Pulse Rate [Pulse Oximeter] 76 Pulse Rate [Right Brachial] 76 63 Pulse Rate [Right Pulse Oximeter] Respiratory Rate 18 16 20 Blood Pressure [Ri ght Arm] 107/46 L 152/55 H Blood Pressure [Ri ght Upper Arm] Pulse Oximetry 96 97 10/05/21 07:42 10/05/21 07:46 Temperature 98.2 F Pulse Rate [Pulse Oximeter] Pulse Rate [Right Brachial] 63 Pulse Rate [Right Pulse Oximeter] Respiratory Rate 20 Blood Pressure [Ri ght Arm] Blood Pressure [Ri ght Upper Arm] Pulse Oximetry Documenting provider has reviewed patient's vital signs: yes Labs Labs: Laboratory Results - last 24 hr 10/04/21 10/04/21 10/05/21 10:20 17:38 04:00 WBC RBC Hgb Hct MCV MCH MCHC RDW Coeff of Randa Plt Count Neut % (Auto) Lymph % (Auto) [place] % (Auto) Eos % (Auto) Baso % (Auto) Neut # (Auto) Lymph # (Auto) [place] # (Auto) Eos # (Auto) Baso # (Auto) Abs Immat Gran (auto) Sodium 125 L 128 L Potassium 4.0 Chloride 100 Carbon Dioxide 26 BUN 18 Creatinine 1.0 Estimated Creat Clear 33.29 Glucose 95 Calcium 7.5 L Magnesium 2.1 Total Bilirubin Direct Bilirubin AST ALT Alkaline Phosphatase Total Protein Albumin SARS-CoV-2 (PCR) Negative SARS-CoV-2 10/05/21 10/05/21 06:30 06:30 WBC 5.73 RBC 2.72 L Hgb 8.5 L Hct 26.2 L MCV 96 MCH 31 MCHC 32 RDW Coeff of Randa 15.6 H Plt Count 351 Neut % (Auto) 61.8 Lymph % (Auto) 24.8 [place] % (Auto) 9.8 Eos % (Auto) 2.4 Baso % (Auto) 0.7 Neut # (Auto) 3.54 Lymph # (Auto) 1.42 [place] # (Auto) 0.60 Eos # (Auto) 0.14 Baso # (Auto) 0.04 Abs Immat Gran (auto) 0.03 Sodium Potassium Chloride Carbon Dioxide BUN Creatinine Estimated Creat Clear Glucose Calcium Magnesium Total Bilirubin 0.5 Direct Bilirubin 0.4 AST 46 H ALT 39 H Alkaline Phosphatase 77 Total Protein 5.1 L Albumin 2.8 L SARS-CoV-2 (PCR)
--- NOTE | 2021-10-05 14:25 | PC.NURSE ---
Pt pain controlled with Naproxen and ice pack to shoulder. She is up with 2 assist cane and belt, unsteady this afternoon. Requires direction to move from chair to bed, puts weight on her heels and not towards her toes or the balls of her feet when standing. Updated shahnaz OBRIEN re plan of labs in AM and Thierno RINCON has spoken to dtr re: Monday shoulder surgery. Vizcarra cath removed at ~1230, after pt was up in the chair.
[2021-10-05 14:45] LABS: Sodium* 129 mmol/L (135-149)
--- NOTE | 2021-10-05 15:21 | PC.SOCIAL ---
Met with pt. to discuss discharge plans. Pt. normally is independent with all ADL's prior to her fall and arm fracture. Since then pt. has been getting assistance from her niece, great niece, and fiance. Pt. plans to discharge home and is scheduled for surgery on Monday. Therapies are recommending home care for PT, OT and senior care. Waiting to hear from the physician on his recommendations and if home care should be set up prior to surgery on Monday or after. Pt. knows a nurse at [facility] so prefers them for services. A message was left with [facility] on availability. consumer services consultant will continue to work on discharge planning needs.
[2021-10-05] MEDS: cefTRIAXone 1 GM in 0.9 % SODIUM CHLORIDE Mini-bag 100 ML IVPB (17:08)
[2021-10-05] MEDS: DOCUSATE SODIUM 100 MG CAPSULE PO (21:38)
[2021-10-05] MEDS: MELATONIN 3 MG TABLET PO (21:40)
--- NOTE | 2021-10-05 22:53 | PC.NURSE ---
Patient is up to the chair/BR this evening with assist of 1, cane and gait belt. Pt was assisted with self catheterization this evening - pt was unable to complete task independently due to the flexibility of our catheter supplied here. She states that at home she is able to due it with one hand due to the type of catheter she uses. Pt denies nausea. Rates pain in her arm 0-1/10. Scheduled Naproxen and PRN tylenol given for pain.
[2021-10-06] VITALS (9 sets, daily range): BP systolic 98–143; BP diastolic 36–65; PULSE 32–69; RESP 16–18; TEMP 36.4–36.8; O2SAT 92–98
--- NOTE | 2021-10-06 05:46 | PC.NURSE ---
Shift Note -: Pt pleasant and cooperative. Pt had difficulty sleeping last night, straight cath was performed by nurse @ 0300 with 250mL output. Pt has stated that she would like to start her home medication dose of Lasix as she's noticed her urinary output is low. L upper arm and fingers remain edematous and painful with motion. Pt consistently rates pain 0/10 @ rest. See eMAR for medication administration.
[2021-10-06] MEDS: OMEPRAZOLE 20 MG CAPSULE DR PO (06:39)
[2021-10-06 07:10] LABS: Chloride* 102 mmol/L (96-114); Potassium* 4.8 mmol/L (3.6-5.1); Sodium* 129 mmol/L (135-149)
[2021-10-06 07:12] LABS: Creatinine* 1.2 mg/dL (0.5-1.5); Est. Creatinine Clearance* 27.75; Estimated Glomerular Filt Rate 45.48
[2021-10-06 07:13] LABS: Blood Urea Nitrogen* 38 mg/dL (7-30); Calcium* 7.3 mg/dL (8.4-10.6); Carbon Dioxide* 23 mmol/L (20-32); Glucose* 100 mg/dL (60-115)
[2021-10-06] MEDS: NAPROXEN 250 MG TABLET PO (08:47)
[2021-10-06] MEDS: ASPIRIN 81 MG TABLET EC PO (08:47)
[2021-10-06] MEDS: predniSONE 1 MG TABLET PO (08:47)
[2021-10-06] MEDS: HYDROXYCHLOROQUINE 200 MG TABLET PO ×2 (08:48→20:42)
[2021-10-06] MEDS: carvediloL 25 MG TABLET PO (08:48)
[2021-10-06] MEDS: ACETAMINOPHEN 325 MG TABLET 650 MG PO ×2 (08:48→20:42)
[2021-10-06] MEDS: MULTIVITAMIN/MINERALS 1 TABLET 1 TAB PO (08:49)
--- NOTE | 2021-10-06 12:29 | PC.SOCIAL ---
Pt. will be able to have home care prior to surgery. A referral was made to [facility] and they can open pt. to home care on or Monday. [facility] just needs to be updated when pt. discharges to home.
--- NOTE | 2021-10-06 16:37 | P.IMPN_ITS ---
Progress Note: A&P Assessment and plan (1) Intractable vomiting: Problem details: Appears to have resolved. The cause remains uncertain. Continue to observe whether she can take in p.o. food and fluid today. Status: Acute (2) Urinary retention: Problem details: Continue self catheterization Status: Acute (3) Pain due to fracture: Problem details: Pain control is not optimal. acetaminophen and ice for pain. Surgery plans ORIF on Monday Status: Acute (4) Hyponatremia: Problem details: Sodium at 129 and stable. continue to monitor Status: Acute (5) Closed fracture of left distal radius: Problem details: 1. Closed treatment of a closed, acute left distal radius fracture, minimal displacement, neutral alignment on lateral view, dorsal comminution (date of injury 09/23/2021) Conservative management with cast Status: Acute (6) Closed fracture of left proximal humerus: Problem details: 2. Closed treatment of a closed, acute left proximal humerus fracture (date of injury 09/23/2021). ortho plans ORIF on Monday Status: Acute (7) Laceration of eyebrow, left: Problem details: appears to be healing well Status: Acute (8) Prolonged QT interval: Problem details: Will use Phenergan for antiemetic. QTc is a 482. Status: Acute (9) Lung mass: Problem details: Incidental 1.5 cm right middle lobe lung mass seen on abdominal CT scan at [facility] 02/13/2022. Needs outpatient follow-up Status: Acute (10) Urinary tract infection: Status: Acute Assessment and Plan: amoxicillin on discharge Time Spent With Patient Total time spent: total time spent today is 1 hour, 40 minutes in coordination of care and discussing with patient and other providers management of bradycardia, humerus fracture, pain Subjective Date Seen: 10/06/21 Interval history: patient was seen in followup of hospitalization for hyponatremia and weakness and left humerus fracture. She has been doing better for the last day and a half and the plan was to go home. Around noon today she appeared to be very pale and nursing noted that her pulse was 30. Electrocardiogram was obtained and showed that she had sinus bradycardia with premature atrial beats. By the time the electrocardiogram was obtained her heart rate was up to 54. Her bradycardia improved but did not completely resolve without specific treatment. Her carvedilol was discontinued at that time and she is placed on telemetry. Exam Narrative: Exam Narrative: She is alert and appears in Tired and pale. Speech is normal. She gives her own history. Respirations are clear to auscultation. Cardiovascular: S1, S2, bradycardic with somewhat irregular pulse. Abdomen is soft without tenderness or mass. Const: Vital Signs, click to edit/add: Vital Signs - 24 hr 10/05/21 20:45 10/06/21 00:12 10/06/21 04:14 Temperature 98.3 F 97.8 F 97.9 F Pulse Rate Pulse Rate [Pulse Oximeter] 66 68 67 Pulse Rate [Right Brachial] 68 67 Respiratory Rate 20 16 16 Blood Pressure [Ri ght Arm] 131/47 L 127/41 L 127/51 L Pulse Oximetry 97 96 97 10/06/21 08:28 10/06/21 12:19 10/06/21 12:20 Temperature 97.5 F L 98.0 F Pulse Rate 53 L Pulse Rate [Pulse Oximeter] 55 L 32 L Pulse Rate [Right Brachial] 55 L 32 L Respiratory Rate 16 16 Blood Pressure [Ri ght Arm] 143/44 H 98/65 Pulse Oximetry 98 92 10/06/21 15:38 10/06/21 15:48 Temperature 98.1 F 98.0 F Pulse Rate 65 Pulse Rate [Pulse Oximeter] 60 Pulse Rate [Right Brachial] 60 Respiratory Rate 18 Blood Pressure [Ri ght Arm] 136/65 Pulse Oximetry 95 Documenting provider has reviewed patient's vital signs: yes Labs Labs: Laboratory Results - last 24 hr 10/06/21 06:30 Sodium 129 L Potassium 4.8 Chloride 102 Carbon Dioxide 23 BUN 38 H Creatinine 1.2 Estimated Creat Clear 27.75 Glucose 100 Calcium 7.3 L
[2021-10-06] MEDS: cefTRIAXone 1 GM in 0.9 % SODIUM CHLORIDE Mini-bag 100 ML IVPB (17:11)
[2021-10-06 17:29] LABS: Troponin I* 0.01 ng/mL (0.01-0.04)
[2021-10-06 17:34] LABS: Troponin I* 0.01 ng/mL (0.01-0.04)
--- NOTE | 2021-10-06 18:37 | PC.NURSE ---
end of shift. Pt pleasant and cooperative. no pain. @ 1200 she was very weak and tired. BP was 90/50 and HR was 30's. EKG was done and tele was started. trop was done. md was updated. she is up with 1 assist she was a lift when HR was 30. she is doing better now. she got up and walked to chair,. she self caths once @ 0700 and again @ 1830. left arm is in a sling and a cast. she might have surgery on Monday per ortho.
[2021-10-06] MEDS: SODIUM CHLORIDE 0.9 % (FLUSH) 10 ML SYRINGE IVF (20:44)
--- NOTE | 2021-10-06 22:36 | PC.NURSE ---
19- Pt states improvement in weakness and drowsiness but still noted, tele remains 55-70 nsr w freq pac, pt unable to self cath thus helped straight cath with 850cc yellow output around 2100. Tylenol given at hs per request to help sleep. Left arm remains in sling/elevated, pain mild.
[2021-10-06] MEDS: MELATONIN 3 MG TABLET PO (23:42)
[2021-10-07 03:00] VITALS: PULSE 64; RESP 16
[2021-10-07] MEDS: OMEPRAZOLE 20 MG CAPSULE DR PO (06:41)
--- NOTE | 2021-10-07 06:52 | PC.NURSE ---
Shift Note -: Pt pleasant and cooperative, VSS, afebrile. Tele shows sinus arrhythmia. HR has remained in the mid 60s while asleep and 70s while awake. Pt denies pain and declines pain medication. Straight cath @ 0630 with 600mL output of clear yellow urine.
[2021-10-07 07:00] VITALS: BP 146/45; PULSE 60; PULSE 63; PULSE 97; RESP 16; TEMP 36.8; O2SAT 97
[2021-10-07 07:25] LABS: Basophils Absolute Auto 0.08 K/uL (0.00-0.30); Basophils Percent Auto 1.3 % (0.0-3.0); Eosinophils Absolute Auto 0.26 K/uL (0.00-0.50); Eosinophils Percent Auto 4.2 % (0.0-7.0); Hematocrit 25.7 % (33.0-51.0); Hemoglobin* 8.3 gm/dL (12.0-16.0); Immature Granulocytes Abs Auto 0.02 K/uL (0.00-0.30); Lymphocytes Percent Auto 16.7 % (20-44); Mean Corpuscular HGB Conc 32 gm/dL (32-36); Mean Corpuscular Hemoglobin 31 pg (26-34); Mean Corpuscular Volume 97 fL (80-100); Monocytes Percent Auto 8.8 % (0.0-11.0); Neutrophils Absolute Auto 4.29 K/uL (1.7-7.0); Neutrophils Percent Auto 68.7 % (42.0-72.0); Platelet Count* 324 K/uL (140-440); RDW Coefficient of Variation % 16.7 % (11.5-15.5); Red Blood Count 2.64 m/uL (4.00-5.20); White Blood Count* 6.24 K/uL (4.50-11.00)
[2021-10-07 07:31] LABS: Slide Review Reflex No
[2021-10-07 07:51] LABS: Chloride* 104 mmol/L (96-114); Potassium* 5.2 mmol/L (3.6-5.1); Sodium* 132 mmol/L (135-149)
[2021-10-07 07:54] LABS: Blood Urea Nitrogen* 37 mg/dL (7-30); Carbon Dioxide* 24 mmol/L (20-32); Creatinine* 1.1 mg/dL (0.5-1.5); Est. Creatinine Clearance* 30.27; Estimated Glomerular Filt Rate 50.48; Glucose* 105 mg/dL (60-115)
[2021-10-07 07:55] LABS: Calcium* 7.9 mg/dL (8.4-10.6)
[2021-10-07 08:09] LABS: Troponin I* < 0.01 ng/mL (0.01-0.04)
[2021-10-07] MEDS: carvediloL 25 MG TABLET 12.5 MG PO (08:58)
[2021-10-07] MEDS: HYDROXYCHLOROQUINE 200 MG TABLET PO (08:59)
[2021-10-07] MEDS: ASPIRIN 81 MG TABLET EC PO (08:59)
[2021-10-07] MEDS: MULTIVITAMIN/MINERALS 1 TABLET 1 TAB PO (09:00)
[2021-10-07] MEDS: predniSONE 1 MG TABLET 2 MG PO (09:00)
--- NOTE | 2021-10-07 09:18 | P.DS_ITS ---
DS: Providers Provider Date Seen: 10/07/21 Date of admission: 10/04/21 12:59 Primary care physician: Constanza Cardozo MD Admitting Clinician: Jose Oliva MD Consults: 10/04/21 16:31 Consult to Physician [CONS] Routine Comment: Consulting Provider: Luan Fregoso Has provider been notified: No Attending Physician on discharge: Jose Oliva MD Date of Discharge: 10/07/21 DS: Diagnosis Discharge Diagnosis (1) Neurocardiogenic pre-syncope: Status: Acute Problem details: Patient had an episode yesterday where she was feeling weak and appeared pale and diaphoretic. She did not lose consciousness. Her blood pressure was low and her pulse dropped to the 30s. She recovered fairly quickly without any intervention. Her carvedilol was reduced to 12.5 mg twice daily. This can probably be increased to 25 mg daily in the next few weeks if she is doing well. (2) Lung mass: Status: Acute Problem details: Incidental 1.5 cm right middle lobe lung mass seen on abdominal CT scan at [facility] 02/13/2022. Needs outpatient follow-up (3) Urinary tract infection: Status: Acute Problem details: Pansensitive E coli. Treat with amoxicillin. (4) Prolonged QT interval: Status: Acute Problem details: Will use Phenergan for antiemetic. QTc is a 482. (5) Intractable vomiting: Status: Acute Problem details: Appears to have resolved. The cause remains uncertain. Continue to observe whether she can take in p.o. food and fluid today. (6) Urinary retention: Status: Acute Problem details: Continue self catheterization (7) Pain due to fracture: Status: Acute Problem details: Pain control is not optimal. acetaminophen and ice for pain. Surgery plans ORIF on Monday (8) Hyponatremia: Status: Acute Problem details: Sodium at 129 and stable. continue to monitor (9) Vomiting: Status: Acute Problem details: Resolved, cause of this is unknown (10) Closed fracture of left distal radius: Status: Acute Problem details: 1. Closed treatment of a closed, acute left distal radius fracture, minimal displacement, neutral alignment on lateral view, dorsal comminution (date of injury 09/23/2021) Conservative management with cast (11) Closed fracture of left proximal humerus: Status: Acute Problem details: 2. Closed treatment of a closed, acute left proximal humerus fracture (date of injury 09/23/2021). ortho plans ORIF on Monday (12) Laceration of eyebrow, left: Status: Acute Problem details: appears to be healing well DS: Summary Hospital Course Hospital Course: Patient is noted to have had a fall 11 days ago and was told that she would not be able to have surgery because of hyponatremia. Unfortunately I cannot find any record of those values. Today we will check a comprehensive panel, CBC, amylase and lipase. Will also have an IV placed in give patient normal saline as she has had poor p.o. intake the past few days as well as Zofran. We did talk about the use of morphine and that she is intolerant to the narcotics but I do think with the Zofran pre dosing we may be able to adequately control her pain. In regards to her nausea this certainly could be related to constipation but may also be related to pain and consistent use of Tylenol. Will ensure recheck liver function test. Status at Discharge Overall status at discharge: patient is back to baseline Time Spent with Patient Time attestation: Total time spent providing and/or coordinating discharge services: 35 mins Time spent: Greater than 30 minutes Exam Narrative: Exam Narrative: She is alert and appears in no distress. Mood and affect are brighter today. Speech is normal. Respirations are clear to auscultation. Cardiovascular: S1, S2, regular rate and rhythm. Left upper extremity with marked bruising. Intact motion, sensation and capillary refill in her fingers Const: Vital Signs, click to edit/add: Vital Signs - 24 hr 10/06/21 12:19 10/06/21 12:20 10/06/21 15:38 Temperature 98.0 F 98.1 F Pulse Rate 53 L 65 Pulse Rate [Pulse Oximeter] 32 L 60 Pulse Rate [Right Brachial] 32 L 60 Respiratory Rate 16 18 Blood Pressure [Ri ght Arm] 98/65 136/65 Pulse Oximetry 92 95 10/06/21 15:48 10/06/21 19:44 10/06/21 23:00 Temperature 98.0 F 98.0 F 98.3 F Pulse Rate 69 Pulse Rate [Pulse Oximeter] 63 64 Pulse Rate [Right Brachial] 63 64 Respiratory Rate 18 18 Blood Pressure [Ri ght Arm] 121/36 L 135/43 L Pulse Oximetry 95 97 10/07/21 03:00 Temperature Pulse Rate Pulse Rate [Pulse Oximeter] Pulse Rate [Right Brachial] 64 Respiratory Rate 16 Blood Pressure [Ri ght Arm] Pulse Oximetry Documenting provider has reviewed patient's vital signs: yes DS: Data Data Completed and Pending Labs on day of discharge: Labs from last 24 hours 10/07/21 10/07/21 10/06/21 06:40 06:40 16:32 WBC 6.24 RBC 2.64 L Hgb 8.3 L Hct 25.7 L MCV 97 MCH 31 MCHC 32 RDW Coeff of Randa 16.7 H Plt Count 324 Neut % (Auto) 68.7 Lymph % (Auto) 16.7 L [place] % (Auto) 8.8 Eos % (Auto) 4.2 Baso % (Auto) 1.3 Neut # (Auto) 4.29 Lymph # (Auto) 1.00 [place] # (Auto) 0.50 Eos # (Auto) 0.26 Baso # (Auto) 0.08 Abs Immat Gran (auto) 0.02 Sodium 132 L Potassium 5.2 H Chloride 104 Carbon Dioxide 24 BUN 37 H Creatinine 1.1 Estimated Creat Clear 30.27 Glucose 105 Calcium 7.9 L Troponin I < 0.01 L 0.01 POC Troponin I 10/06/21 10/06/21 13:12 13:12 WBC RBC Hgb Hct MCV MCH MCHC RDW Coeff of Randa Plt Count Neut % (Auto) Lymph % (Auto) [place] % (Auto) Eos % (Auto) Baso % (Auto) Neut # (Auto) Lymph # (Auto) [place] # (Auto) Eos # (Auto) Baso # (Auto) Abs Immat Gran (auto) Sodium Potassium Chloride Carbon Dioxide BUN Creatinine Estimated Creat Clear Glucose Calcium Troponin I 0.01 POC Troponin I 0.00 L Discharge Plan Discharge Disposition: Home, Self-Care Date of Admission: 10/04/21 12:59 Attending Provider on Discharge: Jose Oliva Consulting Providers: Luan Fregoso Primary Care Provider: Constanza Cardozo I Condition: Improved Anticipated Discharge Date/Time: 10/07/21 00:30 Discharge Medications: New acetaminophen 325 mg Tablet 650 mg PO Q4H PRNQty: 100 0RF promethazine 25 mg Tablet 25 mg PO Q4H PRN (Reason: Nausea) Qty: 10 0RF amoxicillin 500 mg capsule 500 mg PO BID Qty: 10 0RF Continued calcium carbonate-vitamin D3 [Calcium 600 + D(3)] 600 mg-10 mcg (400 unit) tablet 1 tab PO DAILY 0RF multivitamin Tablet 1 tab PO DAILY 0RF furosemide 40 mg tablet 20 mg PO BID 0RF Label Comments: TAKE 1/2 TABLET BY MOUTH TWICE DAILY alendronate 70 mg tablet 70 mg PO Q7D 0RF Label Comments: TAKE ONE TABLET BY MOUTH EVERY 7 DAYS TAKE WITH 8OZ OF WATER ON AN. EMPTY STOMACH REMAIN UPRIGHT FOR 30MIN prednisone 1 mg tablet 1 - 2 mg PO DAILY 0RF Label Comments: PATIENT REPORTS THAT SHE TAKES 1-2 MG ON ALTERNATING DAYS TAKE 1 TABLET BY MOUTH EVERY DAY Rx Instructions: 1 MG DUE TODAY 10/04/21 hydroxychloroquine 200 mg tablet 200 mg PO BID 0RF Label Comments: TAKE 1 TABLET BY MOUTH TWICE DAILY Changed carvedilol 25 mg tablet 12.5 mg PO BID Qty: 30 0RF Rx Instructions: must administer with a meal/food Held aspirin [Adult Aspirin Regimen] 81 mg tablet,delayed release (DR/EC) 81 mg PO DAILY 0RF Hold Instructions: Resume on 10/12/21. methotrexate sodium 2.5 mg tablet 12.5 mg PO .weekly 0RF Hold Instructions: Resume on 10/15/21. Label Comments: TAKE 5 TABLETS BY MOUTH EVERY WEEK Discontinued hydrocodone-acetaminophen 5-325 mg tablet 1 - 2 tab PO Q4-6H PRN (Reason: pain) Qty: 25 0RF Rx Instructions: 1 tablet mild-moderate pain, 2 tablets severe pain. Discharge Orders: Discharge Order (Routine); Ordered 10/07/21 Ordered By: Jose Oliva Patient Education: Acetaminophen (By mouth), Promethazine (By mouth), Amoxicillin (By mouth) Activity Level: Activity as Tolerated and Wear Brace Discharge Diet: Regular Diet Detail: do not eat after midnight on Monday for surgery on Monday Follow Up Appointments: Luan Fregoso MD [Staff Physician] - ( follow-up with Dr. Fregoso on Monday at the hospital for surgery) Constanza Cardozo MD [Primary Care Provider] - Provider,Not a Local [Referring] - 10/14/21 Forms: [employer] Info Instructions
--- NOTE | 2021-10-07 12:38 | PC.NURSE ---
pt d/c via w/c accompanied by spouse. pt d/c home. IV removed and cath intact. d/c education and instructions reviewed, all questions answered. belongings form reviewed and signs. MD noted bradycardic episode during d/c education. MD decided to discontinue carvedilol and follow up with pt next week.
--- NOTE | 2021-10-07 14:09 | PC.SOCIAL ---
Discharge plan: Spoke with [facility]. They will be able to start ordered home care care on , 10/14/21, following surgery on Monday. MD aware and agrees with this plan.
--- NOTE | 2021-10-27 15:21 | P.ORCN_ITS ---
History of Present Illness HPI Date Seen: 10/05/21 Consult date: 10/05/21 Requesting physician: Jose Oliva Consult reason: fracture Chief complaint: LEFT DISTAL RADIUS/PROXIMAL HUMERUS Narrative: Pleasant 80-year-old presents to [facility] with feelings of fatigue, malaise, nausea vomiting, and weakness. This is accompanied by recent fracture to the left humerus and left wrist. I recently saw her in clinic the week prior. Decision at that time was to pursue non operative management of her fractures. Per staff, she has had difficulty with managing at home especially with pain management. Per the niece, she has not been taking the oral narcotics for pain due to nausea and vomiting. Because of these additional symptoms, she was brought to [facility] ED, and admitted for care, mostly due to intractable vomiting. Orthopedics was asked to consult the patient regarding the fractures. Patient tells me that she is feeling a little better since getting medication for her nausea and vomiting. Her left upper extremity, especially the shoulder is most painful. She reports feeling weak. Review of Systems Narrative: No recent fevers, chills, or aches; no numbness or tingling distally PFSH PFSH Medical History Back problem High blood pressure History of DVT (deep vein thrombosis) Hyperlipidemia Osteoarthritis Recurrent urinary tract infection Rheumatoid arthritis Sacral nerve stimulator present Stage 3 chronic kidney disease Surgical History H/O hysterectomy with oophorectomy History of cholecystectomy S/P total knee arthroplasty Family History Mother Stroke Rheumatoid arthritis Brother Diabetes Coronary artery disease Father Pancreatic cancer Social History Narrative: patient lives independently with her significant other, Cirilo Chambers. She has a niece, Peg. Those 2 would be healthcare power of claims attorney. Code status is full. Highest level of school completed/degree received: some college, no degree Smoking Status: Never smoker Do you use any of these nicotine containing products: None Second hand tobacco smoke exposure: No How often do you have a drink containing alcohol: never How often do you have six or more drinks on one occasion: Never AUDIT-C Alcohol total score: 0 Non-prescribed substance use: denies use Caffeine: Yes (1/2 cup of coffee a day) Gender Identity: female service: No Meds Home Medications and Allergies Home Medications Medication Instructions Recorded Confirmed Type alendronate 70 mg tablet 70 mg PO Q7D 09/23/21 10/21/21 History furosemide 40 mg tablet 20 mg PO BID 09/23/21 10/21/21 History hydroxychloroquine 200 mg tablet 200 mg PO BID 09/23/21 10/21/21 History methotrexate sodium 2.5 mg tablet 12.5 mg PO .weekly 09/23/21 10/21/21 History prednisone 1 mg tablet 1 - 2 mg PO DAILY 09/23/21 10/21/21 History aspirin 81 mg tablet,delayed 81 mg PO DAILY 10/04/21 10/21/21 History release (Adult Aspirin Regimen) calcium carbonate 600 mg-vitamin 1 tab PO DAILY 10/04/21 10/21/21 History D3 10 mcg (400 unit) tablet (Calcium 600 + D(3)) multivitamin 1 tab PO DAILY 10/04/21 10/21/21 History Home Medication Comments: Hydroxychloroquine, methotrexate and prednisone all for her rheumatoid arthritis. Allergies Allergy/AdvReac Type Severity Reaction Status Date / Time acetaminophen Allergy Unknown Vomiting Verified 10/21/21 10:53 hydrocodone Allergy Unknown Vomiting Verified 10/21/21 10:53 oxycodone Allergy Unknown Verified 10/21/21 10:53 Opioids - Morphine Analogues Allergy Verified 10/21/21 10:53 sulfa Allergy Unknown Uncoded 10/21/21 10:53 Ortho Exam Narrative Exam Narrative: General: Patient is A&O x3; she is a bit disheveled; patient typically has her hair done with makeup, and comments that she is embarrassed by her local today. Color is slightly pale. She appears well-nourished Pulmonary: Breathing pattern regular, even, without apparent distress or audible wheeze present. Left upper extremity: Ecchymosis throughout the upper arm and elbow, which is improved from our visit in clinic the week prior; prominent swelling throughout the same region Obvious deformity to the proximal humerus, valgus position of the proximal humerus Significantly tender palpation over the surgical neck of the proximal humerus No range of motion performed; no manipulation performed Short-arm non waterproof cast on the left wrist 2+ radial pulse, pink, warm digits with appropriate cap refill; intact dermatomes and myotomes including the radial, ulnar, median, and axillary nerve distributions Results Diagnostic results Shoulder x-ray: report reviewed and image reviewed Additional Comments: AP, lateral views of the left humerus ordered by different provider, obtained [facility] dated 10/05/2021. These images were reviewed (compared to previous images as of date 09/23/2021) and corroborated with the radiology report showing displaced proximal humerus surgical neck fracture. The diaphysis of the humerus is medial and anterior relative to the humeral head. Displacement appears to be approximately 50%. This is unchanged compared to previous images on 09/23/2021, as today's images show an increase in fracture displacement. Glenohumeral joint reduced concentrically. Assessment and Plan Assessment and plan (1) Closed fracture of left proximal humerus: Problem comment: 80-year-old female acute, closed left proximal humerus surgical neck fracture with significant displacement (date of injury 09/23/2021) - radiographically worsened since previous images. Status: Acute (2) Closed fracture of distal radius and ulna: Problem comment: One month post closed treatment of a closed, acute left distal radius and ulna fractures, with dorsal comminution of the distal radius and ulna; intra- articular distal radius into the lunate fossa (date of injury 09/23/2021) Status: Acute Plan We had a thorough discussion regarding pathology. Again, had a lengthy conversation with the patient regarding her fractures. We will continue non operative management for the wrist fracture. I also conversed with Dr. Fregoso regarding her proximal humerus, and my assessment of patient looking much weaker, and my concern that she will have an issue thriving at home due to both fractures, the proximal humerus being the greatest concern. Thus, we find it appropriate and indicated to pursue surgical intervention for her left proximal humerus fracture. Risk, benefits, and alternatives were provided in detail which include but not limited to neurovascular injury, bleeding risk, malunion of fracture, malreduction of fracture, failed components, anesthesia complications, infection, stroke, heart attack, and . The benefits include anatomic alignment of the fracture. Alternatives include non operative management, which patient is failing to thrive with this treatment modality. Patient understands the above risks, benefits, and alternatives, and would like to proceed with left proximal humerus ORIF. Our scheduling team will help coordinate this. Plan for same-day surgery left shoulder proximal humerus ORIF, performed under anesthesia, with Dr. Fregoso. She will be discharged from [facility] once medically appropriate, and follow-up same-day surgery next week for surgery. Remain in the sling left arm, and remain in the short-arm cast left arm. She has already had her preop history and physical. Thank you for allowing me to participate in this patient's care.
== END 2021-10-07 12:30 | disposition home or self-care (01) | DRG 641 ==
LOC: ED 12:18 → MEDSURG 10-06 10:46
PROVIDERS: Family Medicine; Admitting Provider Family Medicine; Emergency Provider Family Medicine; PCP Family Medicine; Visit Provider Family Medicine
DX: E87.1 Hypo-osmolality and hyponatremia (principal); N39.0 Urinary tract infection, site not specified; R10.9 Unspecified abdominal pain; R11.2 Nausea with vomiting, unspecified; R00.1 Bradycardia, unspecified; M06.9 Rheumatoid arthritis, unspecified; Z79.52 Long term (current) use of systemic steroids; I12.9 Hypertensive chronic kidney disease with stage 1 through stage 4 chronic kidney disease, or unspecified chronic kidney disease; N18.30 Chronic kidney disease, stage 3 unspecified; R33.9 Retention of urine, unspecified; S42.202D Unspecified fracture of upper end of left humerus, subsequent encounter for fracture with routine healing; S52.502D Unspecified fracture of the lower end of left radius, subsequent encounter for closed fracture with routine healing; S52.602D Unspecified fracture of lower end of left ulna, subsequent encounter for closed fracture with routine healing; R91.8 Other nonspecific abnormal finding of lung field; E78.5 Hyperlipidemia, unspecified; Z86.718 Personal history of other venous thrombosis and embolism; B96.20 Unspecified Escherichia coli [E. coli] as the cause of diseases classified elsewhere; R94.31 Abnormal electrocardiogram [ECG] [EKG]
CPT/HCPCS: 36415; 51702; 73060; 74177; 80048; 80053; 80076; 81001; 82150; 82565; 83605; 83690; 83735; 84295; 84484; 85025; 87086; 87186; 87635; 93005; 97116; 97161; 97166; 97535; 99284; 99285; G0378; A9153; A9270; J0696; J2060; J2270; J2405; J3010; J7030; J7512; Q9967

== ENCOUNTER 2021-10-11 08:42 | Day surgery (SDC) | payer MEDICARE, BC, SELFPAY ==
[2021-10-11] VITALS (7 sets, daily range): BP systolic 124–187; BP diastolic 52–88; PULSE 58–80; RESP 16; TEMP 36.2–36.8; O2SAT 94–100; BMI 26.4
[2021-10-11] MEDS: fentaNYL 100 MCG/2 ML inj IVP (08:53)
[2021-10-11] MEDS: LACTATED RINGERS 1000 ML 1,000 ML 35 ML IV ×2 (09:30→11:32)
[2021-10-11] MEDS: MIDAZOLAM HCL 1 MG/ML inj IVP (09:42)
--- NOTE | 2021-10-11 10:08 | CRLHL7_ITS ---
For Patients: As a result of the Cures Act, medical imaging exams and procedure reports are released immediately into your electronic medical record. You may view this report before your referring provider. If you have questions, please contact your health care provider. Indication: orif left shoulder Technique: Three fluoroscopic images of the left shoulder. Fluoroscopic time 44.9 seconds. IMPRESSION: Fluoroscopic guidance for ORIF left proximal humerus. Dictated by Eliseo Gutierrez MD @ 10/11/2021 4:04:43 PM (Electronically Signed)
--- NOTE | 2021-10-11 10:33 | W.PM.NB ---
Nerve Block Nerve Block Time Seen by Provider: 09:40 Date Seen: 10/11/21 Type of block requested by surgeon for post-operative analgesia: supraclavicular Side: left Time out performed: Yes Verification of patient name: Yes Verification of date of : Yes Site marking: site marked Name of person performing procedure: Ngozi Brooks Continuous monitoring Was continuous monitoring of O2 sat, B/P, monitor and storage bin tender, recorded every 15 minutes?: Yes Procedure Checklist: sterile prep, needles and gloves Ultrasound guided. Images saved: Yes Medications given in 5ml increments after negative aspiration: Ropivicaine %: 0.5 mL: 15 Needle gauge: 22 Decadron (mg): 10 Precedex (mcg): 20 Patient tolerated procedure well: Yes
[2021-10-11] MEDS: CEFAZOLIN 2 GM INJ IVP (10:35)
--- NOTE | 2021-10-11 12:15 | PM.ORPRC ---
Procedure Note Date of procedure: 10/11/21 Procedure: PREOPERATIVE DIAGNOSES: 1. Left proximal humerus fracture - comminuted, surgical neck. Three-part. Extra-articular. POSTOPERATIVE DIAGNOSES: 1. Left proximal humerus fracture - comminuted, surgical neck. Three-part. Extra-articular. NAME OF OPERATION: 1. Left proximal humerus open reduction internal fixation 2. 07226 - intraoperative fluoroscopy up to 1 hour. SURGEON: Luan Fregoso MD INDUSTRIAL MAINTENANCE REPAIRER: Mendle Carreno - Of note, a skilled help desk assistant was critical for this case to aide in patient positioning, limb manipulation, tissue retraction, closure, and splinting. ANESTHESIA: General endotracheal anesthetic plus supraclavicular block EBL: 100 mL IMPLANTS: Arthrex L of proximal humeral locking plate with 3.5 mm cortical locking and nonlocking shaft screws and 4.0 mm fully-threaded locking screws for proximal humeral head fixation TOURNIQUET: None. INDICATIONS: The patient is a pleasant, 80-year-old female who sustained a left distal radius fracture and proximal humerus fracture after a fall. They presented to [facility] where x-rays were obtained and revealed a proximal humerus fracture with significant translation of the shaft relative to the head. Initially, nonoperative management was elected as the fracture alignment seem to still be acceptable. However, upon follow-up radiographs, the shaft was found to be displaced further. In addition to her non tolerance of the nonoperative management, surgery was indicated. FINDINGS: Closed, three-part proximal humerus fracture primarily to the surgical neck. Comminution was noted with very thin frail humeral head eggshell like parts. PROCEDURE: Following a thorough discussion of risks, benefits, and alternatives, consent was obtained and the operative extremity was marked. The patient was brought to the operating room and placed supine on the operating table. Induction of anesthesia was achieved. Appropriate time out was performed identifying proper patient, site and procedure. 1 g IV Ancef was administered within 1 hour of incision preoperatively. The left upper extremity was prepped and draped in the appropriate sterile fashion using ChloraPrep prep. A longitudinal incision made for a deltopectoral approach. Sharp incision through skin and blunt dissection through subcutaneous tissue allowed us to identify the cephalic vein. The vein was spared in present at the end of the case and retracted laterally throughout the case.The vein was very fragile and up having a small rent within it and thus ligation was performed of the cephalic pain. The fracture was encountered and cleared of interposed periosteum and fracture hematoma. Early callus was visualized and cleared as well to help mobilize the fracture fragments and improve the alignment. Multiple splits within the humeral head were identified. After mobilizing the fragments, were able to close down these fracture gaps with the pointed tenaculum. This was temporally held with a K-wire. The Arthrex self of plate was then applied to the lateral humeral head and curved around to the slight anterolateral portion of the humeral shaft. Our dissection carried this down near to the deltoid insertion. We were able to stay anterior to the deltoid insertion and yet lateral to the biceps/pectoralis due to the plates contour. It cortical diaphyseal screw was 1st placed and the plate alignment and height assessed. It was found to be appropriate but the shaft of the humerus was still medialized relative the head. Thus, a 2nd cortical screw was placed slightly further proximal and with its threads engaging the far cortex allowed shaft to be brought lateral and opposed against the plate and improving the overall humerus alignment. Rotation was assessed and felt to be appropriate based on the long head of the biceps location and the bicipital groove which was readily palpable. C-arm fluoroscopic imaging in both AP and lateral planes was utilized throughout the case to help with identification of fracture improvement and plate location. Shoulder was placed through range of motion with no crepitation noted. At this stage, the wound was thoroughly irrigated with normal saline. Closure performed with 0 Vicryl for the deltoid reapproximation. Then, 3-0 Vicryl for the subcutaneous, and 4-0 Monocryl for subcuticular closure. Dressings were applied and the patient was awoken from anesthesia and transferred to PACU in stable condition. A skilled help desk assistant was critical for this case to aid in patient positioning, tissue retraction, limb manipulation/positioning, awareness and protection of critical structures, and closure. Of note, PA and lateral views of the left wrist were also obtained intraoperatively to confirm fracture alignment is still be in acceptable position. Indeed it was. Nonoperative management for this will be continued. We will remove her short-arm cast today and reapplied a short-arm splint with better compression and molding given swelling subsidence around the wrist and forearm. PLAN: 1. Sling to operative extremity. May come out of this for elbow, forearm, wrist, digit range of motion and pendulums of the shoulder. 2. Ice, acetominphen or ibuprofen PRN. 3. Tramadol for pain as needed. 4. Follow up with PA visit in 7-10 days for wound check and initiation of physical therapy for passive range of motion and edema control and periscapular strengthening.
--- NOTE | 2021-10-11 12:32 | SUR.OPER ---
LOWER ARM SPLINTED AFTER PROCEDURE COMPLETED AND POSITIONED INTO SLING
--- NOTE | 2021-10-11 12:47 | W.ANESCHARGE ---
Anesthesia Charges Start Date/Time Anesthesia Start Date: 10/11/21 Anesthesia Start Time: 10:19 Stop Date/Time Anesthesia Stop Date: 10/11/21 Anesthesia Stop Time: 12:43 Summary Emergency: No Extremes of Age: Over 69-CPT 90011
--- NOTE | 2021-10-27 15:21 | P.ORCN_ITS ---
History of Present Illness HPI Date Seen: 10/05/21 Consult date: 10/05/21 Requesting physician: Jose Oliva Consult reason: fracture Chief complaint: LEFT DISTAL RADIUS/PROXIMAL HUMERUS Narrative: Pleasant 80-year-old presents to [facility] with feelings of fatigue, malaise, nausea vomiting, and weakness. This is accompanied by recent fracture to the left humerus and left wrist. I recently saw her in clinic the week prior. Decision at that time was to pursue non operative management of her fractures. Per staff, she has had difficulty with managing at home especially with pain management. Per the niece, she has not been taking the oral narcotics for pain due to nausea and vomiting. Because of these additional symptoms, she was brought to [facility] ED, and admitted for care, mostly due to intractable vomiting. Orthopedics was asked to consult the patient regarding the fractures. Patient tells me that she is feeling a little better since getting medication for her nausea and vomiting. Her left upper extremity, especially the shoulder is most painful. She reports feeling weak. Review of Systems Narrative: No recent fevers, chills, or aches; no numbness or tingling distally PFSH PFSH Medical History Back problem High blood pressure History of DVT (deep vein thrombosis) Hyperlipidemia Osteoarthritis Recurrent urinary tract infection Rheumatoid arthritis Sacral nerve stimulator present Stage 3 chronic kidney disease Surgical History H/O hysterectomy with oophorectomy History of cholecystectomy S/P total knee arthroplasty Family History Mother Stroke Rheumatoid arthritis Brother Diabetes Coronary artery disease Father Pancreatic cancer Social History Narrative: patient lives independently with her significant other, Cirilo Chambers. She has a niece, Peg. Those 2 would be healthcare power of finance attorney. Code status is full. Highest level of school completed/degree received: some college, no degree Smoking Status: Never smoker Do you use any of these nicotine containing products: None Second hand tobacco smoke exposure: No How often do you have a drink containing alcohol: never How often do you have six or more drinks on one occasion: Never AUDIT-C Alcohol total score: 0 Non-prescribed substance use: denies use Caffeine: Yes (1/2 cup of coffee a day) Gender Identity: female service: No Meds Home Medications and Allergies Home Medications Medication Instructions Recorded Confirmed Type alendronate 70 mg tablet 70 mg PO Q7D 09/23/21 10/21/21 History furosemide 40 mg tablet 20 mg PO BID 09/23/21 10/21/21 History hydroxychloroquine 200 mg tablet 200 mg PO BID 09/23/21 10/21/21 History methotrexate sodium 2.5 mg tablet 12.5 mg PO .weekly 09/23/21 10/21/21 History prednisone 1 mg tablet 1 - 2 mg PO DAILY 09/23/21 10/21/21 History aspirin 81 mg tablet,delayed 81 mg PO DAILY 10/04/21 10/21/21 History release (Adult Aspirin Regimen) calcium carbonate 600 mg-vitamin 1 tab PO DAILY 10/04/21 10/21/21 History D3 10 mcg (400 unit) tablet (Calcium 600 + D(3)) multivitamin 1 tab PO DAILY 10/04/21 10/21/21 History Home Medication Comments: Hydroxychloroquine, methotrexate and prednisone all for her rheumatoid arthritis. Allergies Allergy/AdvReac Type Severity Reaction Status Date / Time acetaminophen Allergy Unknown Vomiting Verified 10/21/21 10:53 hydrocodone Allergy Unknown Vomiting Verified 10/21/21 10:53 oxycodone Allergy Unknown Verified 10/21/21 10:53 Opioids - Morphine Analogues Allergy Verified 10/21/21 10:53 sulfa Allergy Unknown Uncoded 10/21/21 10:53 Ortho Exam Narrative Exam Narrative: General: Patient is A&O x3; she is a bit disheveled; patient typically has her hair done with makeup, and comments that she is embarrassed by her local today. Color is slightly pale. She appears well-nourished Pulmonary: Breathing pattern regular, even, without apparent distress or audible wheeze present. Left upper extremity: Ecchymosis throughout the upper arm and elbow, which is improved from our visit in clinic the week prior; prominent swelling throughout the same region Obvious deformity to the proximal humerus, valgus position of the proximal humerus Significantly tender palpation over the surgical neck of the proximal humerus No range of motion performed; no manipulation performed Short-arm non waterproof cast on the left wrist 2+ radial pulse, pink, warm digits with appropriate cap refill; intact dermatomes and myotomes including the radial, ulnar, median, and axillary nerve distributions Results Diagnostic results Shoulder x-ray: report reviewed and image reviewed Additional Comments: AP, lateral views of the left humerus ordered by different provider, obtained [facility] dated 10/05/2021. These images were reviewed (compared to previous images as of date 09/23/2021) and corroborated with the radiology report showing displaced proximal humerus surgical neck fracture. The diaphysis of the humerus is medial and anterior relative to the humeral head. Displacement appears to be approximately 50%. This is unchanged compared to previous images on 09/23/2021, as today's images show an increase in fracture displacement. Glenohumeral joint reduced concentrically. Assessment and Plan Assessment and plan (1) Closed fracture of left proximal humerus: Problem comment: 80-year-old female acute, closed left proximal humerus surgical neck fracture with significant displacement (date of injury 09/23/2021) - radiographically worsened since previous images. Status: Acute (2) Closed fracture of distal radius and ulna: Problem comment: One month post closed treatment of a closed, acute left distal radius and ulna fractures, with dorsal comminution of the distal radius and ulna; intra- articular distal radius into the lunate fossa (date of injury 09/23/2021) Status: Acute Plan We had a thorough discussion regarding pathology. Again, had a lengthy conversation with the patient regarding her fractures. We will continue non operative management for the wrist fracture. I also conversed with Dr. Fregoso regarding her proximal humerus, and my assessment of patient looking much weaker, and my concern that she will have an issue thriving at home due to both fractures, the proximal humerus being the greatest concern. Thus, we find it appropriate and indicated to pursue surgical intervention for her left proximal humerus fracture. Risk, benefits, and alternatives were provided in detail which include but not limited to neurovascular injury, bleeding risk, malunion of fracture, malreduction of fracture, failed components, anesthesia complications, infection, stroke, heart attack, and . The benefits include anatomic alignment of the fracture. Alternatives include non operative management, which patient is failing to thrive with this treatment modality. Patient understands the above risks, benefits, and alternatives, and would like to proceed with left proximal humerus ORIF. Our scheduling team will help coordinate this. Plan for same-day surgery left shoulder proximal humerus ORIF, performed under anesthesia, with Dr. Fregoso. She will be discharged from [facility] once medically appropriate, and follow-up same-day surgery next week for surgery. Remain in the sling left arm, and remain in the short-arm cast left arm. She has already had her preop history and physical. Thank you for allowing me to participate in this patient's care.
== END 2021-10-11 14:03 | disposition home or self-care (01) ==
PROVIDERS: PCP Family Medicine; Visit Provider Orthopaedic Surgery Sports Medicine
PROC: (CPT 23615; principal; 2021-10-11 11:00)
DX: S42.232A 3-part fracture of surgical neck of left humerus, initial encounter for closed fracture (principal)
CPT/HCPCS: 23615; 01630; 64415; 73030; 76942; 99100; A4565; C1713; J0690; J1100; J2250; J2704; J2795; J3010; J7120

== ENCOUNTER 2021-12-06 06:53 | Day surgery (SDC) | payer MEDICARE, BC, SELFPAY ==
[2021-12-06] VITALS (24 sets, daily range): BP systolic 130–170; BP diastolic 57–75; PULSE 76–94; RESP 16; TEMP 36.4–36.9; O2SAT 88–97; BMI 29.0
[2021-12-06] MEDS: SODIUM CHLORIDE 0.9 % (FLUSH) 10 ML SYRINGE IVF (07:30)
[2021-12-06] MEDS: LACTATED RINGERS 1000 ML 1,000 ML 100 ML IV (07:30)
--- NOTE | 2021-12-06 08:30 | CRLHL7_ITS ---
For Patients: As a result of the Cures Act, medical imaging exams and procedure reports are released immediately into your electronic medical record. You may view this report before your referring provider. If you have questions, please contact your health care provider. Indication: ORIF REVISION Technique: Two fluoroscopic images of the left shoulder. Fluoroscopic time 4.5 seconds. IMPRESSION: Fluoroscopic guidance for open reduction internal fixation left proximal humerus. Dictated by Eliseo Gutierrez MD @ 12/06/2021 9:50:09 AM (Electronically Signed)
[2021-12-06] MEDS: CEFAZOLIN 1 GM in 0.9 % SODIUM CHLORIDE Mini-bag 100 ML IVPB (08:50)
[2021-12-06] MEDS: BUPIVACAINE 0.5% 30 ML INJECTION (09:31)
--- NOTE | 2021-12-06 09:45 | PM.ORPRC ---
Procedure Note Date of procedure: 12/06/21 Procedure: PREOPERATIVE DIAGNOSES: 1. Left proximal humerus fracture with prominent screws following previous ORIF 10/11/2021 2. Left shoulder stiffness following previous ORIF 10/11/2021 POSTOPERATIVE DIAGNOSES: 1. Left proximal humerus fracture with prominent screws following previous ORIF 10/11/2021 2. Left shoulder stiffness following previous ORIF 10/11/2021 NAME OF OPERATION: 1. Left proximal humerus revision open reduction internal fixation ( exchange of proud, prominent screws and replacement with shorter screws for ongoing stabilization 2. Left shoulder manipulation under anesthesia 3. 28583 - intraoperative fluoroscopy up to 1 hour. SURGEON: Luan Fregoso MD OUTPATIENT CODING SPECIALIST: Mendel Carreno - Of note, a skilled technical services assistant was critical for this case to aide in patient positioning, limb manipulation, tissue retraction, closure, and splinting. ANESTHESIA: General anesthetic EBL: 25 mL IMPLANTS: Arthrex alpha proximal humerus plating system with removal of proximal humeral locking screws and replacement by shorter proximal humeral locking screws TOURNIQUET: None. INDICATIONS: The patient is a pleasant, 81-year-old female who sustained a left shoulder injury after a fall. she originally underwent ORIF 10/11/2021. The plate and screws were in appropriate, acceptable position helping stabilize the proximal humeral fracture. Unfortunately, given poor bone quality, the humeral head articular surface impacted onto the cancellous bone into the metaphyseal region. This caused the proximal humeral screws to not be proud and extend out the humerus. She was at risk for wearing down the articular glenoid chondral surface. Thus, we discussed the pros and cons of ongoing nonoperative management verses ORIF revision verses transition to reverse shoulder arthroplasty. It was felt most appropriate to transition to revision ORIF. FINDINGS: Multiple prominent screws that remained proud by just a couple mm at most. It is possible these could still have been in the cartilage. However, on physical exam there was some reproducible crepitus felt with rotation of the shoulder consistent with prominent screws. Therefore, the screws removed without difficulty and exchanged for shorter screws. The diaphyseal screws remain intact. Overall, the shoulder. Healthy without any signs of infection. There was abundant scar tissue both of the surgical plane but also of the subdeltoid space. the shoulder was able to elevate approximately 45? after prominent screws removed. After gentle manipulation under anesthesia she could elevate to approximately 100?. Access to her head was now possible (which was not the case initially) PROCEDURE: Following a thorough discussion of risks, benefits, and alternatives, consent was obtained and the operative extremity was marked. The patient was brought to the operating room and placed supine on the operating table. Induction of anesthesia was achieved. Appropriate time out was performed identifying proper patient, site and procedure. 1 g IV Ancef was administered within 1 hour of incision preoperatively. The left upper extremity was prepped and draped in the appropriate sterile fashion using ChloraPrep prep. A longitudinal incision made for a deltopectoral approach. The same skin incision was utilized. The cephalic vein was identified and retracted laterally. The coracoid was palpated. This allowed us to find the deltopectoral interval proximally this was carried down distally. We were able to elevate the deltoid off of the humerus. The plate was readily palpable. Deltoid was elevated off of the proximal humeral plate. The proximal locking screws were removed without difficulty. New, shorter screws were placed. We elected to go 8 mm shorter in each of the screws to ensure that there is still some support of the humeral head but that they would not become prominent/ proud in the future. Following this, C-arm fluoroscopic imaging was utilized intraoperatively to confirm the screws to be in appropriate position and no evidence of prominence to the screw tips now. This is how he left the operating room last time, but I do believe that the humerus is now settled into a more stable position. At this stage, manipulation under anesthesia of the left shoulder was performed. This was done with 1 hand on the proximal humerus provided majority the force. It was gentle slow manipulation. Rotation was avoided. Elevation improved significantly as noted above. At this stage, the wound was thoroughly irrigated with normal saline. Closure performed with 0 Vicryl for the deltoid reapproximation. Then, 3-0 Vicryl for the subcutaneous, and 4-0 Monocryl for subcuticular closure. Dressings were applied and the patient was awoken from anesthesia and transferred to PACU in stable condition. A skilled technical services assistant was critical for this case to aid in patient positioning, tissue retraction, limb manipulation/positioning, awareness and protection of critical structures, and closure. PLAN: 1. Sling to operative extremity. May come out of this for elbow, forearm, wrist, digit range of motion and pendulums of the shoulder. 2. Ice, acetominphen or ibuprofen PRN. 3. Tramadol for pain as needed. 4. Follow up with PA visit in 7-10 days for wound check and initiation of physical therapy for passive range of motion and edema control and periscapular strengthening.
--- NOTE | 2021-12-06 10:07 | W.ANESCHARGE ---
Anesthesia Charges Start Date/Time Anesthesia Start Date: 12/06/21 Anesthesia Start Time: 08:35 Stop Date/Time Anesthesia Stop Date: 12/06/21 Anesthesia Stop Time: 10:03 Summary Emergency: No Extremes of Age: Over 69-CPT 32170
--- NOTE | 2021-12-06 10:55 | W.ANESCHARGE ---
Anesthesia Charges Start Date/Time Anesthesia Start Date: 12/06/21 Anesthesia Start Time: 08:35 Stop Date/Time Anesthesia Stop Date: 12/06/21 Anesthesia Stop Time: 10:03 Summary Emergency: No Extremes of Age: Over 69-CPT 40172
== END 2021-12-06 12:15 | disposition home or self-care (01) ==
PROVIDERS: PCP Family Medicine; Visit Provider Orthopaedic Surgery Sports Medicine
PROC: (CPT 23615; principal; 2021-12-06 08:30)
DX: T84.121A Displacement of internal fixation device of left humerus, initial encounter (principal); M25.612 Stiffness of left shoulder, not elsewhere classified
CPT/HCPCS: 23615; 23700; 20680; 01630; 73030; 99100; C1713; J0330; J0690; J1100; J2405; J2704; J2795; J3010; J3490; J7120

== ENCOUNTER 2022-01-24 10:07 | Outpatient (CLI) | payer MEDICARE, BC, SELFPAY ==
--- NOTE | 2022-01-24 10:15 | CRLHL7_ITS ---
For Patients: As a result of the Century Cures Act, medical imaging exams and procedure reports are released immediately into your electronic medical record. You may view this report before your referring provider. If you have questions, please contact your health care provider. INDICATION : Right thyroid lobe nodule TECHNIQUE : Routine fine needle aspiration of thyroid nodule. Comparison : 12/29/2021 FINDINGS : PROCEDURE: After the informed consent and time-out, multiple fine needle aspirations were obtained from the thyroid nodule. Fine needle performed. 25 gauge needles were used. An 18 gauge needle was used for the final pass. The 1st 3 passes with a 25 gauge needle were excellent. The 4th and 5th passes needed to be repeated several times due to lack of sample. Lidocaine was used for local anesthesia. The preliminary cytology was adequate for interpretation. Real-time imaging was used for guidance and needle placement. Post imaging ultrasound demonstrates no immediate complication. IMPRESSION : Successful fine needle aspiration of thyroid nodule. Dictated by Eliseo Gutierrez MD @ 01/24/2022 11:48:01 AM (Electronically Signed)
== END 2022-01-24 10:08 | disposition home or self-care (01) ==
LOC: US 10:07
PROVIDERS: PCP Family Medicine; Visit Provider Surgery
DX: E04.1 Nontoxic single thyroid nodule (principal)
CPT/HCPCS: 10005; 88173

== ENCOUNTER 2022-02-16 11:15 | Outpatient (RCR) | payer MEDICARE, BC, SELFPAY ==
--- NOTE | 2021-10-27 15:21 | PM.ORCN ---
History of Present Illness HPI Date Seen: 10/05/21 Consult date: 10/05/21 Requesting physician: Jose Oliva Consult reason: fracture Chief complaint: LEFT DISTAL RADIUS/PROXIMAL HUMERUS Narrative: Pleasant 80-year-old presents to [facility] with feelings of fatigue, malaise, nausea vomiting, and weakness. This is accompanied by recent fracture to the left humerus and left wrist. I recently saw her in clinic the week prior. Decision at that time was to pursue non operative management of her fractures. Per staff, she has had difficulty with managing at home especially with pain management. Per the niece, she has not been taking the oral narcotics for pain due to nausea and vomiting. Because of these additional symptoms, she was brought to [facility] ED, and admitted for care, mostly due to intractable vomiting. Orthopedics was asked to consult the patient regarding the fractures. Patient tells me that she is feeling a little better since getting medication for her nausea and vomiting. Her left upper extremity, especially the shoulder is most painful. She reports feeling weak. Review of Systems Narrative: No recent fevers, chills, or aches; no numbness or tingling distally PFSH PFSH Medical History Back problem High blood pressure History of DVT (deep vein thrombosis) Hyperlipidemia Osteoarthritis Recurrent urinary tract infection Rheumatoid arthritis Sacral nerve stimulator present Stage 3 chronic kidney disease Surgical History H/O hysterectomy with oophorectomy History of cholecystectomy S/P total knee arthroplasty Family History Mother Stroke Rheumatoid arthritis Brother Diabetes Coronary artery disease Father Pancreatic cancer Social History Narrative: patient lives independently with her significant other, Cirilo Chambers. She has a niece, Peg. Those 2 would be healthcare power of workers compensation attorney. Code status is full. Highest level of school completed/degree received: some college, no degree Smoking Status: Never smoker Do you use any of these nicotine containing products: None Second hand tobacco smoke exposure: No How often do you have a drink containing alcohol: never How often do you have six or more drinks on one occasion: Never AUDIT-C Alcohol total score: 0 Non-prescribed substance use: denies use Caffeine: Yes (1/2 cup of coffee a day) Gender Identity: female service: No Meds Home Medications and Allergies Home Medications Medication Instructions Recorded Confirmed Type alendronate 70 mg tablet 70 mg PO Q7D 09/23/21 10/21/21 History furosemide 40 mg tablet 20 mg PO BID 09/23/21 10/21/21 History hydroxychloroquine 200 mg tablet 200 mg PO BID 09/23/21 10/21/21 History methotrexate sodium 2.5 mg tablet 12.5 mg PO .weekly 09/23/21 10/21/21 History prednisone 1 mg tablet 1 - 2 mg PO DAILY 09/23/21 10/21/21 History aspirin 81 mg tablet,delayed 81 mg PO DAILY 10/04/21 10/21/21 History release (Adult Aspirin Regimen) calcium carbonate 600 mg-vitamin 1 tab PO DAILY 10/04/21 10/21/21 History D3 10 mcg (400 unit) tablet (Calcium 600 + D(3)) multivitamin 1 tab PO DAILY 10/04/21 10/21/21 History Home Medication Comments: Hydroxychloroquine, methotrexate and prednisone all for her rheumatoid arthritis. Allergies Allergy/AdvReac Type Severity Reaction Status Date / Time acetaminophen Allergy Unknown Vomiting Verified 10/21/21 10:53 hydrocodone Allergy Unknown Vomiting Verified 10/21/21 10:53 oxycodone Allergy Unknown Verified 10/21/21 10:53 Opioids - Morphine Analogues Allergy Verified 10/21/21 10:53 sulfa Allergy Unknown Uncoded 10/21/21 10:53 Ortho Exam Narrative Exam Narrative: General: Patient is A&O x3; she is a bit disheveled; patient typically has her hair done with makeup, and comments that she is embarrassed by her local today. Color is slightly pale. She appears well-nourished Pulmonary: Breathing pattern regular, even, without apparent distress or audible wheeze present. Left upper extremity: Ecchymosis throughout the upper arm and elbow, which is improved from our visit in clinic the week prior; prominent swelling throughout the same region Obvious deformity to the proximal humerus, valgus position of the proximal humerus Significantly tender palpation over the surgical neck of the proximal humerus No range of motion performed; no manipulation performed Short-arm non waterproof cast on the left wrist 2+ radial pulse, pink, warm digits with appropriate cap refill; intact dermatomes and myotomes including the radial, ulnar, median, and axillary nerve distributions Results Diagnostic results Shoulder x-ray: report reviewed and image reviewed Additional Comments: AP, lateral views of the left humerus ordered by different provider, obtained [facility] dated 10/05/2021. These images were reviewed (compared to previous images as of date 09/23/2021) and corroborated with the radiology report showing displaced proximal humerus surgical neck fracture. The diaphysis of the humerus is medial and anterior relative to the humeral head. Displacement appears to be approximately 50%. This is unchanged compared to previous images on 09/23/2021, as today's images show an increase in fracture displacement. Glenohumeral joint reduced concentrically. Assessment and Plan Assessment and plan (1) Closed fracture of left proximal humerus: Problem comment: 80-year-old female acute, closed left proximal humerus surgical neck fracture with significant displacement (date of injury 09/23/2021) - radiographically worsened since previous images. Status: Acute (2) Closed fracture of distal radius and ulna: Problem comment: One month post closed treatment of a closed, acute left distal radius and ulna fractures, with dorsal comminution of the distal radius and ulna; intra-articular distal radius into the lunate fossa (date of injury 09/23/2021) Status: Acute Plan We had a thorough discussion regarding pathology. Again, had a lengthy conversation with the patient regarding her fractures. We will continue non operative management for the wrist fracture. I also conversed with Dr. Fregoso regarding her proximal humerus, and my assessment of patient looking much weaker, and my concern that she will have an issue thriving at home due to both fractures, the proximal humerus being the greatest concern. Thus, we find it appropriate and indicated to pursue surgical intervention for her left proximal humerus fracture. Risk, benefits, and alternatives were provided in detail which include but not limited to neurovascular injury, bleeding risk, malunion of fracture, malreduction of fracture, failed components, anesthesia complications, infection, stroke, heart attack, and . The benefits include anatomic alignment of the fracture. Alternatives include non operative management, which patient is failing to thrive with this treatment modality. Patient understands the above risks, benefits, and alternatives, and would like to proceed with left proximal humerus ORIF. Our scheduling team will help coordinate this. Plan for same-day surgery left shoulder proximal humerus ORIF, performed under anesthesia, with Dr. Fregoso. She will be discharged from [facility] once medically appropriate, and follow-up same-day surgery next week for surgery. Remain in the sling left arm, and remain in the short-arm cast left arm. She has already had her preop history and physical. Thank you for allowing me to participate in this patient's care.
--- NOTE | 2021-11-12 12:05 | OT.OPOE ---
OT Outpatient Ortho Eval OT Outpatient Ortho Eval Start: 11/11/21 18:06 Freq: Status: Active Protocol: Document 11/12/21 11:39 AMB (Rec: 11/12/21 11:56 AMB [id number]) E-signed By Aliza Downey, OTR/L, CLT, [employer] SUPERVISOR OT OP Ortho Eval Details Type Type Eval Complexity Medium Outpatient History/Precautions Insurance Information Insurance Information Medicare B Current Condition/Medical Diagnosis Referring Provider Dr Fregoso Treatment Diagnosis Closed DR fx LUE, proximal hum fx with ORIF LUE Date of Onset DOi: 09/23/21, DOS: 10/11/21 Precautions Lifting Restrictions,Range of Motion Other Precautions Pt states the doctor told her she should not lift her arm yet but she could hang it at her side. Medical/Functional History Medical History Reviewed Yes Prior Level of Function/Mobility PMH includes urinary dysfunction (self caths), neurogenic bladder with stimulater, RLE TKA 4 years ago, Left knee pain, gastritis , encephalopathy due to infection, cellulitis of LLE, DVT left femoral vein, acute adrenal insufficiency, neurocardiogenic pre-syncompe, lung mass, needs f/u, UTI, pronlonged QT interval, urinary retention, hyponatremia, hx of back pain, high BP, hyperlipidemia, OA, RA, sacral nn stimulator, stage 3 CKD. 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 Pt states she really is not in any pain today, has pain when trying to lay in bed or with transitional movements. Average pain is 0/10 with transitional movements is 10/ 10. Pt and SO live in private home, niece has been assisting with bathing and cleaning. SO assists with dressing on a daily basis, also has taken over grocery shopping and cooking. Prior to injury, pt was able to do all of the cooking, cleaning and shopping and was independent with all self cares and transfers. Pt is currently using a SE in her RUE for gait and needs assistance with all transfers. SO has been needing to assist with cathetorization as well. 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 AAROM of the LUE shoulder flexion is 45 , abd is 30, ER is 20, IR is 20. All measurements were taken in supine. Rotations were measured with 30 deg of abduction. OT Objective Data Hand Hand Dominance Right Skin/Wounds Skin Integrity Comments Skin is very dry and scaley throughout the LUE. Upper arm is swollen and bruised as expected after surgery. OT Problems Problems Problems Decreased Strength,Decreased Range of Motion,Decreased Dexterity,Decreased Fine Motor ,Decreased Coordination,Other, Lifting,Gripping,Pinching Problems Comments Pt demonstrates significant deficts in self care activities such as bathing, dressing and toileting. Pt is also impaired with mobility, requires use of SEC and needs assist with all transfers. Other Problems Opening Containers,Dressing Patient Potential Good Assessment Assessment Assessment Pt demonstrates significant limitations in ROM and strength throughout the LUE. Pt also has pain with any and all attempts at shoulder ROM. These deficits impair pts ability to care for self and to complete IADLs around the home. Pt will benefit from skilled OT intervention to restore full, pain-free use of LUE in order to resume indepence in self care, mobility, and IADLs. OT Outpatient Treatment Plan Ortho Barriers Barriers to Goal Attainment Age, deconditioning. Occupational Therapy Treatment Plan - OP Potential Rehabilitation Potential Good Goals Goals 1. Pt will be independent and compliant with HEP in order to resume full, pain-free use of the involved UE. 3 weeks 2. Pt will demonstrate full, pain-free AROM of the involved UE in order to improve ability to grasp and hold. 6 weeks 3. 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 8 weeks. 4. Pt will be independent and safe in all aspectes of self care and ADL related mobility / transfers. 10 weeks. Target Date 02/12/22 Progress set Treatment Plan Treatment Plan Evaluation,Edema Control,Joint Mobilization,Manual Therapy, Splinting,Wound Care/Scar Management,Therapeutic Exercise,Therapeutic Activities,Self-Care/Home Management,Caregiver Training, Education Expected Frequency 1-2x Week Expected Duration 10-12 wks Certification Certification I Certify That: Therapy Services Provided, Therapy Plan Established, Therapy Plan Reviewed
== END 2022-06-10 16:02 | disposition home or self-care (01) ==
PROVIDERS: PCP Family Medicine; Visit Provider Physician Assistant Surgical
DX: S42.202A Unspecified fracture of upper end of left humerus, initial encounter for closed fracture (principal); S52.509A Unspecified fracture of the lower end of unspecified radius, initial encounter for closed fracture; S52.609A Unspecified fracture of lower end of unspecified ulna, initial encounter for closed fracture; Z51.89 Encounter for other specified aftercare
CPT/HCPCS: 97110; 97140; 97166; X5282

== ENCOUNTER 2022-02-27 23:37 | Outpatient (CLI) | payer MEDICARE, BC, SELFPAY | END 2022-02-27 23:38 | disposition home or self-care (01) | LOC: AMB 03-10 14:19 | PROVIDERS: PCP Family Medicine; Visit Provider Family Medicine | DX: R06.09 Other forms of dyspnea (principal) | CPT/HCPCS: A0425; A0427 ==

== ENCOUNTER 2022-02-28 00:10 | Inpatient (IN) | payer MEDICARE, BC, SELFPAY ==
[2022-02-28] VITALS (34 sets, daily range): BP systolic 90–155; BP diastolic 40–79; PULSE 72–104; RESP 18–25; TEMP 36.6–38.5; O2SAT 91–97; BMI 29.0
--- NOTE | 2022-02-28 00:17 | CRLHL7_ITS ---
For Patients: As a result of the Cures Act, medical imaging exams and procedure reports are released immediately into your electronic medical record. You may view this report before your referring provider. If you have questions, please contact your health care provider. INDICATION: Chest pain. TECHNIQUE: Chest 1 views. COMPARISON: None. FINDINGS: Cardiovascular and mediastinum: Heart size and vasculature are normal in caliber and appearance. Lungs and pleural spaces: Patchy right airspace opacity. No sign of pleural effusion. No pneumothorax. Bones and soft tissues: No significant findings. IMPRESSION: Patchy right airspace opacities concerning for pneumonia. Dictated by Timo Handley MD @ 02/28/2022 1:28:36 AM (Electronically Signed)
--- NOTE | 2022-02-28 00:25 | ED_ITS ---
HPI - General Adult General Time Seen by Provider: 00:25 Date Seen: 02/28/22 Chief complaint: Shortness of Breath/Dyspnea Stated complaint: Difficulty Breathing Time Seen by Provider: 02/28/22 00:16 Source: patient, EMS and RN notes reviewed Mode of arrival: EMS History of Present Illness HPI narrative: Edie is an 81-year-old female brought in by EMS from home where she was ill, O2 sats were found to be 76% on room air. She was initiated on BiPAP and brought to the ED. on arrival here, patient was alert albeit ill and frail- appearing. She was able to talk, we did initiate a trial off the BiPAP. We were able to transition her to 2 L nasal cannula oxygen at this time. She was in her bed, her fiance called 911. She states she has been sick with a respiratory infection coughing for 2 weeks. She was too weak to get out of bed. She was incontinent of stool in the bed. She is denying any pain anywhere. She states she has not fallen. She brings up that she did fall this summer and indeed she did have a fall with a fracture this summer I believe in August. She developed a flu-like illness about 2 weeks ago and has been in bed. She is telling me the last time she ate or drank anything was about 7:00 p.m. and is requesting water. I am not sure if that is the case given the appearance of her oropharynx, completely dry and parched, cracked lips. Her significant other does come back into the room a bit later. He states that she indeed has been sick for couple weeks, really feels like she worsened today. Gave her a little bit of whiskey was 7 up in it helped clear her throat. Related Data Home Medications Medication Instructions Recorded Confirmed methotrexate sodium 2.5 mg tablet 12.5 mg PO .weekly 09/23/21 02/28/22 prednisone 1 mg tablet 1 mg PO DAILY 09/23/21 02/28/22 aspirin 81 mg tablet,delayed 81 mg PO DAILY 10/04/21 02/28/22 release (Adult Aspirin Regimen) multivitamin (Multiple Vitamins 1 tab PO QDAY 11/26/21 02/28/22 tablet) amlodipine 10 mg tablet (Norvasc) 5 mg PO DAILY 12/03/21 02/28/22 acetaminophen 325 mg tablet 650 mg PO Q4H PRN 02/28/22 02/28/22 alendronate 70 mg tablet 70 mg PO SILVA 02/28/22 02/28/22 calcium carbonate 600 mg-vitamin 2 cap PO DAILY 02/28/22 02/28/22 D3 12.5 mcg (500 unit) capsule (Calcium 600 with Vitamin D3) ferrous sulfate 325 mg (65 mg 325 mg PO DAILY 02/28/22 02/28/22 iron) tablet,delayed release furosemide 20 mg tablet 20 mg PO DAILY 02/28/22 02/28/22 hydroxychloroquine 200 mg tablet 200 mg PO BID 02/28/22 02/28/22 losartan 50 mg tablet 50 mg PO DAILY 02/28/22 02/28/22 sennosides 8.6 mg-docusate sodium 1 tab-cap PO DAILY 02/28/22 02/28/22 50 mg tablet (Laxative Stool Softener With Senna) Previous Rx's Medication Instructions Recorded cephalexin 500 mg capsule 500 mg PO TID #21 caps 03/03/22 Allergies Allergy/AdvReac Type Severity Reaction Status Date / Time clonidine Allergy Mild Hallucinati Verified 02/28/22 01:15 ng leflunomide Allergy Mild Hallucinati Verified 02/28/22 01:15 ng lisinopril Allergy Mild increased Verified 02/28/22 01:15 creatinine methotrexate Allergy Mild did not Verified 02/28/22 01:15 feel well hydrocodone Allergy Unknown Vomiting Verified 02/28/22 01:15 oxycodone Allergy Unknown Verified 02/28/22 01:15 Opioids - Morphine Analogues Allergy Verified 02/28/22 01:15 Sulfa (Sulfonamide Allergy Verified 02/28/22 01:15 Antibiotics) surgical glue Allergy Uncoded 01/25/22 14:43 Review of Systems Status of ROS: Reports: 10 or more systems reviewed and unremarkable except as noted in History and below [facility] Medical History (Updated 03/03/22 @ 12:07 by Jose Oliva MD) Back problem Gram-negative bacteremia High blood pressure History of DVT (deep vein thrombosis) Hyperlipidemia Lung nodules Osteoarthritis Prediabetes Presence of neurostimulator Recurrent urinary tract infection Rheumatoid arthritis Sacral nerve stimulator present Sensorineural hearing loss, bilateral Sepsis Stage 3 chronic kidney disease Surgical History H/O hysterectomy with oophorectomy History of cholecystectomy S/P ORIF (open reduction internal fixation) fracture S/P total knee arthroplasty Family History Mother Stroke Rheumatoid arthritis Brother Diabetes Coronary artery disease Father Pancreatic cancer Social History Narrative: patient lives independently with her significant other, Cirilo Chambers. She has a niece, Peg. 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 Code status is full. Highest level of school completed/degree received: some college, no degree Smoking Status: Never smoker Do you use any of these nicotine containing products: None Second hand tobacco smoke exposure: No How often do you have a drink containing alcohol: never How often do you have six or more drinks on one occasion: Never AUDIT-C Alcohol total score: 0 Non-prescribed substance use: denies use Caffeine: Yes (1/2 cup of coffee a day) Gender Identity: female Are you using contraception or practicing any form of control: No service: No Exam Const: Vital Signs, click to edit/add: Vital Signs - 24 hr 02/28/22 00:10 02/28/22 01:45 02/28/22 01:00 Temperature 101.3 F H Pulse Rate Pulse Rate [Left P ulse Oximeter] 104 H 104 H Respiratory Rate 24 20 Blood Pressure Blood Pressure [Ri ght Upper Arm] 155/64 H 147/79 H Pulse Oximetry 91 94 Oxygen Delivery Me thod Room Air Oxygen Flow Rate 02/28/22 01:30 02/28/22 01:45 02/28/22 02:00 Temperature Pulse Rate Pulse Rate [Left P ulse Oximeter] 103 H 96 98 Respiratory Rate 25 H 24 25 H Blood Pressure Blood Pressure [Ri ght Upper Arm] 132/55 L 104/45 L 106/43 L Pulse Oximetry 95 95 95 Oxygen Delivery Me thod Nasal Cannula Nasal Cannula Nasal Cannula Oxygen Flow Rate 2 2 02/28/22 02:15 02/28/22 02:30 02/28/22 03:15 Temperature Pulse Rate Pulse Rate [Left P ulse Oximeter] 95 97 89 Respiratory Rate 25 H Blood Pressure Blood Pressure [Ri ght Upper Arm] 97/40 L 100/46 L 94/67 Pulse Oximetry 95 96 96 Oxygen Delivery Me thod Nasal Cannula Nasal Cannula Nasal Cannula Oxygen Flow Rate 2 1 1 02/28/22 03:39 02/28/22 03:29 02/28/22 03:30 Temperature 98.0 F Pulse Rate 85 85 Pulse Rate [Left P ulse Oximeter] Respiratory Rate Blood Pressure Blood Pressure [Ri ght Upper Arm] Pulse Oximetry 94 95 Oxygen Delivery Me thod Oxygen Flow Rate 02/28/22 03:35 02/28/22 03:45 02/28/22 04:00 Temperature Pulse Rate 85 83 85 Pulse Rate [Left P ulse Oximeter] Respiratory Rate Blood Pressure 90/48 L Blood Pressure [Ri ght Upper Arm] Pulse Oximetry 94 95 95 Oxygen Delivery Me thod Oxygen Flow Rate 02/28/22 04:15 02/28/22 04:30 02/28/22 04:45 Temperature Pulse Rate 84 83 81 Pulse Rate [Left P ulse Oximeter] Respiratory Rate Blood Pressure Blood Pressure [Ri ght Upper Arm] Pulse Oximetry 93 92 94 Oxygen Delivery Me thod Oxygen Flow Rate 02/28/22 05:00 02/28/22 05:06 02/28/22 05:15 Temperature Pulse Rate 83 83 79 Pulse Rate [Left P ulse Oximeter] Respiratory Rate Blood Pressure 113/55 L Blood Pressure [Ri ght Upper Arm] Pulse Oximetry 93 94 92 Oxygen Delivery Me thod Oxygen Flow Rate 02/28/22 05:46 02/28/22 05:17 02/28/22 05:30 Temperature Pulse Rate 79 81 Pulse Rate [Left P ulse Oximeter] Respiratory Rate Blood Pressure 103/50 L Blood Pressure [Ri ght Upper Arm] Pulse Oximetry 94 92 94 Oxygen Delivery Me thod Room Air Oxygen Flow Rate 02/28/22 05:31 02/28/22 05:45 02/28/22 05:46 Temperature Pulse Rate 80 80 80 Pulse Rate [Left P ulse Oximeter] Respiratory Rate Blood Pressure 114/54 L 106/61 Blood Pressure [Ri ght Upper Arm] Pulse Oximetry 94 95 95 Oxygen Delivery Me thod Oxygen Flow Rate On arrival, was on BiPAP. Was transitioned over to nasal cannula oxygen. Patient is frail and ill-appearing but is able to talk. Her voice is soft. She had stool down her lower extremities which nursing staff did clean up. Documenting provider has reviewed patient's vital signs: yes Common normals: average body habitus, oriented x3, no limitations and alert General appearance: cooperative, comfortable, ill appearing and frail appearing HENMT: Common normals: normocephalic, head/scalp atraumatic, hearing grossly normal bilaterally, external ears normal, external nose normal and nasal mucous membranes and turbinates normal Head and scalp: normocephalic and atraumatic Nose: external nose normal and nasal mucous membranes and turbinates normal External ear: external ears normal Other: Tongue and oral mucosa significantly dry. Lips with some cracking. Eye: Common normals: PERRL, EOMs intact bilaterally, conjunctivae normal and no scleral icterus Conjunctiva: conjunctiva(e) normal Pupil: PERRL Neck & C-Spine: Common normals: full ROM, no lymphadenopathy, supple, no meningeal signs, no JVD and thyroid normal Thyroid: thyroid normal Lymph: Lymphatic: no lymphadenopathy noted Chest: Common normals: inspection of chest normal and palpation of chest normal Resp: Common normals: normal respiratory effort, no retractions and no use of accessory muscles Effort & inspection: able to speak in complete sentences Auscultation: crackles and rhonchi Other: Crackles and rhonchi heard throughout lungs. Cardio: Common normals: no JVD, regular rate, regular rhythm, S1 normal heart sound, S2 normal heart sound, no gallops, no clicks and no murmurs (Do not appreciate any murmur but in context of respiratory sounds) Rate: regular rate Rhythm: regular rhythm Heart sounds: S1 normal and S2 normal GI: Common normals: Normal to inspection, nondistended, normoactive bowel sounds present, soft to palpation, non-tender, no hepatosplenomegaly, no masses and no bruits Palpation: soft and no hepatosplenomegaly Neuro: Common normals: oriented x3, CN's II-XII intact bilaterally, moves all extremities, no focal motor deficits and no sensory deficits noted Sensorium/orientation: alert Meningeal signs: no meningeal signs Course Course Hospital Course: Will get full complement of labs, she will be on pulse oximetry, cardiac monitoring and supplemental oxygen as needed. Seems to be stable off BiPAP at this point but will keep a close eye on her. If she has had an influenza like illness, could have a secondary pneumonia, sepsis, dehydration, metabolic derangements. Would like to look at a portable chest x-ray quickly so that I may see status of her lungs. Do wonder if she might be in possibly some congestive heart failure. Reevaluation(s) Reevaluation #1: Have reviewed with patient that she has COVID. She is quite upset about this. She states that when she goes out she has been wearing a mask, she does not think that there has been anywhere where she could of obtain this. I reviewed with her that it is highly contagious and can be easily caught. Reviewed that she will be getting a chest CT PE protocol to further look at her lungs in to rule out any pulmonary emboli. After talking to her, did call [facility] to see if any of the local hospitals surrounding might have beds. Everything in the [facility] is reportedly full. I know that all of the [facility] facilities are full as well. Contacted [facility] as they have some of the regional smaller hospital surrounding us but unfortunately these are full. We are currently full at our hospital as well. Patient is going to have to board in the ED until we can find a facility or place her in our hospital. Will initiate dexamethasone and remdesivir as she is with COVID pneumonia and hypoxic. Time: 01:54 Reevaluation #2: Have received her chest CT results. Will put her on DVT prophylaxis at this time. Will have ultrasound of both lower extremities done just to ensure no DVT. If DVT seen, will need to increase to treatment dosage obviously. Patient does potentially have a UTI, we will cover with IV Rocephin for the time being while we await the urine culture. She has COVID pneumonia with hypoxia, have initiated dexamethasone and remdesivir already. She is on low does nasal cannula oxygen at this time. We are still awaiting bed placement or facility that has capacity for admission. Will recheck point of care troponin. The troponin most definitely represents strain. Patient has no active chest pain. Time: 04:02 Reevaluation #3: The preliminary report on patient's lower extremity Dopplers is negative for DVT. Her follow-up point of care troponin is further up at 0.48. Repeat EKG actually looks better. Will discuss the case with Cardiology, marcin robison photographic platemaker at 5:12 a.m.. Patient is not symptomatic as far as chest pain. Time: 05:16 Consultations Consultation #1: Spoke with photographic platemaker on-call from [facility]. He agrees with management of this patient. He did remind me to order aspirin which I did do so. Patient is on a baseline 81 mg aspirin. He would obtain an echo, I have subsequently ordered 1. I do know her early on in COVID we were attempting to minimize exposure but he feels we should obtain the echo. If there was a significant regional wall motion abnormality, if patient has decompensation or symptoms concerning for ischemic disease, we are to contact their Cardiology back. Time: 05:52 Consultation #2: Have spoken with Dr. Oliva the hospitalist. They do not have beds at this time but he knows that they will have 1 later today. He agrees with management, did want to make sure the echo was ordered and I reviewed with him that I had already put that order in. Once there is a bed, she can move down to the floor, Dr. Morris does accept her. She will be in the ED until that time we have a bed for her. Time: 07:44 Vital Signs Vital signs: Initial Vital Signs Temperature 101.3 F H 02/28/22 00:10 Temperature Source Axillary 02/28/22 00:10 Pulse Rate 104 H 02/28/22 00:10 Respiratory Rate 24 02/28/22 00:10 Blood Pressure 155/64 H 02/28/22 00:10 Blood Pressure Mean 94 02/28/22 00:10 Blood Pressure Position Semi-Fowlers 02/28/22 00:10 Pulse Oximetry 91 02/28/22 00:10 Oxygen Delivery Method 02/28/22 00:10 Vital Signs Temperature 101.3 F H 02/28/22 00:10 Pulse Rate 104 H 02/28/22 00:10 Respiratory Rate 24 02/28/22 00:10 Blood Pressure 155/64 H 02/28/22 00:10 Pulse Oximetry 91 02/28/22 00:10 Oxygen Delivery Method 02/28/22 00:10 Temperature 98 F 03/03/22 07:58 Pulse Rate 64 03/03/22 07:58 Respiratory Rate 18 03/03/22 07:58 Blood Pressure 133/58 L 03/03/22 07:58 Pulse Oximetry 97 03/03/22 07:58 Oxygen Delivery Method 03/03/22 07:58 Oxygen Flow Rate 1 02/28/22 03:15 Fraction of Inspired Oxygen 0.40 02/28/22 08:27 Medical Decision Making Lab Data Lab results reviewed: Yes I reviewed the patient's lab results Labs: Lab Results 02/28/22 02/28/22 02/28/22 Range/Units 00:18 00:24 00:45 WBC 10.71 (4.50-11.00) K/uL RBC 3.46 L (4.00-5.20) m/uL Hgb 10.3 L (12.0-16.0) gm/dL Hct 31.7 L (33.0-51.0) % MCV 92 (80-100) fL MCH 30 (26-34) pg MCHC 33 (32-36) gm/dL RDW Coeff of Randa 15.3 (11.5-15.5) % Plt Count 299 (140-440) K/uL Neut % (Auto) 95.4 H (42.0-72.0) % Lymph % (Auto) 3.3 L (20-44) % Story % (Auto) 0.4 (0.0-11.0) % Eos % (Auto) 0.1 (0.0-7.0) % Baso % (Auto) 0.1 (0.0-3.0) % Neut # (Auto) 10.20 H (1.7-7.0) K/uL Lymph # (Auto) 0.40 L (0.90-2.90) K/uL Story # (Auto) 0.00 (0.00-0.90) K/UL Eos # (Auto) 0.01 (0.00-0.50) K/uL Baso # (Auto) 0.01 (0.00-0.30) K/uL Abs Immat Gran (auto) 0.08 (0.00-0.30) K/uL Imm/Tot Granulo (auto) 0.7 % D-Dimer Quant (PE/DVT) (0.00-0.50) ug/ml VBG pH (7.32-7.43) VBG pCO2 (40-50) mmHG VBG pO2 (25-47) mmHG VBG HCO3 (21-28) mmol/L Sodium (135-149) mmol/L Potassium (3.6-5.1) mmol/L Chloride (96-114) mmol/L Carbon Dioxide (20-32) mmol/L BUN (7-30) mg/dL Creatinine (0.5-1.5) mg/dL Estimated GFR ml/min Glucose (60-115) mg/dL Lactate (0.5-1.9) mmol/L Calcium (8.4-10.6) mg/dL Magnesium (1.5-2.6) mg/dL Total Bilirubin (0.1-1.5) mg/dL AST (12-35) U/L ALT (4-35) U/L Alkaline Phosphatase (40-150) U/L Total Creatine Kinase (41-117) U/L Troponin I (0.01-0.04) ng/mL C-Reactive Protein (0.5-1.0) mg/dL NT-Pro-B Natriuret Pep (0-450) PG/mL Total Protein (6.0-8.3) g/dL Albumin (3.3-5.0) g/dL Urine Color (Yellow) Urine Appearance (Clear) Urine pH (5.0-8.5) Ur Specific [place] (1.000-1.030) Urine Protein (Negative) Urine Glucose (UA) (Negative) Urine Ketones (Negative) Urine Blood (Negative) Urine Nitrite (Negative) Urine Bilirubin (Negative) Urine Urobilinogen (0.2-1.0) Ur Leukocyte Esterase (Negative) Urine RBC (0-2) Urine WBC (0-5) Ur Squamous Epith Cells (None-Few) Amorphous Sediment (None) Urine Bacteria (None) Ethyl Alcohol (0.01-0.03) % SARS-CoV-2 (PCR) POSITIVE SARS-CoV-2 A (Negative) Influenza Type A (PCR) Negative PCR FLU A (Negative) Influenza Type B (PCR) Negative PCR FLU B (Negative) RSV (PCR) Negative PCR RSV (Negative) POC Troponin I 0.12 H (0.01-0.04) ng/ml 02/28/22 02/28/22 02/28/22 Range/Units 00:45 00:45 00:45 WBC (4.50-11.00) K/uL RBC (4.00-5.20) m/uL Hgb (12.0-16.0) gm/dL Hct (33.0-51.0) % MCV (80-100) fL MCH (26-34) pg MCHC (32-36) gm/dL RDW Coeff of Randa (11.5-15.5) % Plt Count (140-440) K/uL Neut % (Auto) (42.0-72.0) % Lymph % (Auto) (20-44) % Story % (Auto) (0.0-11.0) % Eos % (Auto) (0.0-7.0) % Baso % (Auto) (0.0-3.0) % Neut # (Auto) (1.7-7.0) K/uL Lymph # (Auto) (0.90-2.90) K/uL Story # (Auto) (0.00-0.90) K/UL Eos # (Auto) (0.00-0.50) K/uL Baso # (Auto) (0.00-0.30) K/uL Abs Immat Gran (auto) (0.00-0.30) K/uL Imm/Tot Granulo (auto) % D-Dimer Quant (PE/DVT) 17.15 H (0.00-0.50) ug/ml VBG pH (7.32-7.43) VBG pCO2 (40-50) mmHG VBG pO2 (25-47) mmHG VBG HCO3 (21-28) mmol/L Sodium 133 L (135-149) mmol/L Potassium 3.8 (3.6-5.1) mmol/L Chloride 107 (96-114) mmol/L Carbon Dioxide 19 L (20-32) mmol/L BUN 18 (7-30) mg/dL Creatinine 1.0 (0.5-1.5) mg/dL Estimated GFR 56 ml/min Glucose 124 H (60-115) mg/dL Lactate 1.9 (0.5-1.9) mmol/L Calcium 8.0 L (8.4-10.6) mg/dL Magnesium 1.9 (1.5-2.6) mg/dL Total Bilirubin 0.8 (0.1-1.5) mg/dL AST 45 H (12-35) U/L ALT 30 (4-35) U/L Alkaline Phosphatase 214 H (40-150) U/L Total Creatine Kinase (41-117) U/L Troponin I (0.01-0.04) ng/mL C-Reactive Protein 8.0 H (0.5-1.0) mg/dL NT-Pro-B Natriuret Pep 2480 H (0-450) PG/mL Total Protein 6.5 (6.0-8.3) g/dL Albumin 3.4 (3.3-5.0) g/dL Urine Color (Yellow) Urine Appearance (Clear) Urine pH (5.0-8.5) Ur Specific [place] (1.000-1.030) Urine Protein (Negative) Urine Glucose (UA) (Negative) Urine Ketones (Negative) Urine Blood (Negative) Urine Nitrite (Negative) Urine Bilirubin (Negative) Urine Urobilinogen (0.2-1.0) Ur Leukocyte Esterase (Negative) Urine RBC (0-2) Urine WBC (0-5) Ur Squamous Epith Cells (None-Few) Amorphous Sediment (None) Urine Bacteria (None) Ethyl Alcohol < 0.01 L (0.01-0.03) % SARS-CoV-2 (PCR) (Negative) Influenza Type A (PCR) (Negative) Influenza Type B (PCR) (Negative) RSV (PCR) (Negative) POC Troponin I (0.01-0.04) ng/ml 02/28/22 02/28/22 02/28/22 Range/Units 00:45 00:45 02:00 WBC (4.50-11.00) K/uL RBC (4.00-5.20) m/uL Hgb (12.0-16.0) gm/dL Hct (33.0-51.0) % MCV (80-100) fL MCH (26-34) pg MCHC (32-36) gm/dL RDW Coeff of Randa (11.5-15.5) % Plt Count (140-440) K/uL Neut % (Auto) (42.0-72.0) % Lymph % (Auto) (20-44) % Story % (Auto) (0.0-11.0) % Eos % (Auto) (0.0-7.0) % Baso % (Auto) (0.0-3.0) % Neut # (Auto) (1.7-7.0) K/uL Lymph # (Auto) (0.90-2.90) K/uL Story # (Auto) (0.00-0.90) K/UL Eos # (Auto) (0.00-0.50) K/uL Baso # (Auto) (0.00-0.30) K/uL Abs Immat Gran (auto) (0.00-0.30) K/uL Imm/Tot Granulo (auto) % D-Dimer Quant (PE/DVT) (0.00-0.50) ug/ml VBG pH 7.429 (7.32-7.43) VBG pCO2 31 L (40-50) mmHG VBG pO2 40.9 (25-47) mmHG VBG HCO3 21 (21-28) mmol/L Sodium (135-149) mmol/L Potassium (3.6-5.1) mmol/L Chloride (96-114) mmol/L Carbon Dioxide (20-32) mmol/L BUN (7-30) mg/dL Creatinine (0.5-1.5) mg/dL Estimated GFR ml/min Glucose (60-115) mg/dL Lactate (0.5-1.9) mmol/L Calcium (8.4-10.6) mg/dL Magnesium (1.5-2.6) mg/dL Total Bilirubin (0.1-1.5) mg/dL AST (12-35) U/L ALT (4-35) U/L Alkaline Phosphatase (40-150) U/L Total Creatine Kinase 82 (41-117) U/L Troponin I (0.01-0.04) ng/mL C-Reactive Protein (0.5-1.0) mg/dL NT-Pro-B Natriuret Pep (0-450) PG/mL Total Protein (6.0-8.3) g/dL Albumin (3.3-5.0) g/dL Urine Color Yellow (Yellow) Urine Appearance Cloudy A (Clear) Urine pH 6.0 (5.0-8.5) Ur Specific [place] 1.015 (1.000-1.030) Urine Protein 2+ A (Negative) Urine Glucose (UA) Negative (Negative) Urine Ketones Negative (Negative) Urine Blood 2+ A (Negative) Urine Nitrite Positive A (Negative) Urine Bilirubin Negative (Negative) Urine Urobilinogen 0.2 (0.2-1.0) Ur Leukocyte Esterase 2+ A (Negative) Urine RBC 2-5 A (0-2) Urine WBC 10-25 A (0-5) Ur Squamous Epith Cells Few (None-Few) Amorphous Sediment Moderate A (None) Urine Bacteria Few A (None) Ethyl Alcohol (0.01-0.03) % SARS-CoV-2 (PCR) (Negative) Influenza Type A (PCR) (Negative) Influenza Type B (PCR) (Negative) RSV (PCR) (Negative) POC Troponin I (0.01-0.04) ng/ml 02/28/22 02/28/22 Range/Units 03:49 10:30 WBC (4.50-11.00) K/uL RBC (4.00-5.20) m/uL Hgb (12.0-16.0) gm/dL Hct (33.0-51.0) % MCV (80-100) fL MCH (26-34) pg MCHC (32-36) gm/dL RDW Coeff of Randa (11.5-15.5) % Plt Count (140-440) K/uL Neut % (Auto) (42.0-72.0) % Lymph % (Auto) (20-44) % Story % (Auto) (0.0-11.0) % Eos % (Auto) (0.0-7.0) % Baso % (Auto) (0.0-3.0) % Neut # (Auto) (1.7-7.0) K/uL Lymph # (Auto) (0.90-2.90) K/uL Story # (Auto) (0.00-0.90) K/UL Eos # (Auto) (0.00-0.50) K/uL Baso # (Auto) (0.00-0.30) K/uL Abs Immat Gran (auto) (0.00-0.30) K/uL Imm/Tot Granulo (auto) % D-Dimer Quant (PE/DVT) (0.00-0.50) ug/ml VBG pH (7.32-7.43) VBG pCO2 (40-50) mmHG VBG pO2 (25-47) mmHG VBG HCO3 (21-28) mmol/L Sodium (135-149) mmol/L Potassium (3.6-5.1) mmol/L Chloride (96-114) mmol/L Carbon Dioxide (20-32) mmol/L BUN (7-30) mg/dL Creatinine (0.5-1.5) mg/dL Estimated GFR ml/min Glucose (60-115) mg/dL Lactate (0.5-1.9) mmol/L Calcium (8.4-10.6) mg/dL Magnesium (1.5-2.6) mg/dL Total Bilirubin (0.1-1.5) mg/dL AST (12-35) U/L ALT (4-35) U/L Alkaline Phosphatase (40-150) U/L Total Creatine Kinase (41-117) U/L Troponin I 0.36 H* (0.01-0.04) ng/mL C-Reactive Protein (0.5-1.0) mg/dL NT-Pro-B Natriuret Pep (0-450) PG/mL Total Protein (6.0-8.3) g/dL Albumin (3.3-5.0) g/dL Urine Color (Yellow) Urine Appearance (Clear) Urine pH (5.0-8.5) Ur Specific [place] (1.000-1.030) Urine Protein (Negative) Urine Glucose (UA) (Negative) Urine Ketones (Negative) Urine Blood (Negative) Urine Nitrite (Negative) Urine Bilirubin (Negative) Urine Urobilinogen (0.2-1.0) Ur Leukocyte Esterase (Negative) Urine RBC (0-2) Urine WBC (0-5) Ur Squamous Epith Cells (None-Few) Amorphous Sediment (None) Urine Bacteria (None) Ethyl Alcohol (0.01-0.03) % SARS-CoV-2 (PCR) (Negative) Influenza Type A (PCR) (Negative) Influenza Type B (PCR) (Negative) RSV (PCR) (Negative) POC Troponin I 0.48 H (0.01-0.04) ng/ml Imaging Data Chest x-ray: Attestation: I have reviewed the pertinent imaging results. My impression: See right greater than left patchy opacities, parents concerns me for COVID like etiology. Will await Radiology over-read. Radiologist's impression: Patient: JACOB SINHA Facility:?[facility] Patient ID:?[id number] Site Patient ID:?[id number]. Site :?[id number] Study:?XRay Chest AP PORTABLE-02/28/2022 12:54:12 AM Ordering Physician:Klarissa Beck Final Report: INDICATION: Chest pain. TECHNIQUE: Chest 1 views. COMPARISON: None. FINDINGS: Cardiovascular and mediastinum: Heart size and vasculature are normal in caliber and appearance. Lungs and pleural spaces: Patchy right airspace opacity. No sign of pleural effusion. No pneumothorax. Bones and soft tissues: No significant findings. IMPRESSION: Patchy right airspace opacities concerning for pneumonia. Dictated by Timo Handley MD @ 02/28/2022 1:28:36 AM (Electronic Signature) CT scan - chest: Attestation: I have reviewed the pertinent imaging results. Radiologist's impression: Patient: JACOB SINHA Facility:?[facility] Patient ID:?[id number] Site Patient ID:?[id number]. Site :?[id number] Study:?CT Chest Angio with 95cc [id number] PE Protocol-02/28/2022 3:25:33 AM Ordering Physician:?Rosetta Beck Final Report: INDICATION: COVID positive, elevated D-dimer, hypoxia TECHNIQUE: CT chest pulmonary PE protocol acquired with 95 cc Isovue 370 IV contrast. COMPARISON: Chest CT December 17, 2021. This is under FINDINGS: Cardiovascular structures: Normal vascular enhancement of the pulmonary arteries, no sign of pulmonary embolism. Cardiomegaly. No sign of aneurysm in the thoracic aorta. Mediastinum and andres: No mass or adenopathy. Right thyroid lobe nodule measuring 2.4 cm in diameter. This has already been biopsied by ultrasound. Lungs: New ground-glass opacities in the right lung. 1.5 x 1.7 cm pulmonary mass in the right middle lobe, stable. 1.4 by 1.3 cm pulmonary nodule in the right lower lobe, previously 0.9 x 0.8 cm. Pleura and pericardium: Small right pleural effusion. Chest wall and axilla: No mass or adenopathy. Upper abdomen: Unremarkable. Bones: Internal fixation hardware in the proximal left humerus. Increased kyphosis of the thoracic spine. IMPRESSION: No pulmonary embolism. New ground-glass opacities in the right lung may represent COVID pneumonia. Stable pulmonary mass in the right upper middle lobe. Interval increase in size of pulmonary mass in the right lower lobe. PET-CT or CT-guided biopsy of these nodules would be useful for further evaluation. Small right pleural effusion. Right thyroid lobe nodule. This has already been biopsied. Correlate with biopsy results. Cardiomegaly. Please note that all CT scans at this facility use dose modulation, iterative reconstruction, and/or weight-based dosing when appropriate to reduce radiation dose to as low as reasonably achievable. Dictated by Kortney Ross MD @ 02/28/2022 3:57:07 AM (Electronic Signature) Venous US: Attestation: I have reviewed the pertinent imaging results. Radiologist's impression: Patient: JACOB SINHA Facility:?[facility] Patient ID:?[id number] Site Patient ID:?[id number]. Site :?[id number] Study:?US Extremity Bilateral -02/28/2022 5:18:25 AM Ordering Physician:?Rosetta Beck Final Report: INDICATION: COVID positive. Elevated D-dimer. History of DVT. TECHNIQUE: Ultrasound venous duplex bilateral lower extremity. Compression venous exam was performed using jacobsen-scale, color Doppler, and spectral Doppler analysis. COMPARISON: None. FINDINGS: Deep veins: Sonographic imaging demonstrates the right common femoral, deep femoral, superficial femoral, popliteal, posterior tibial and the contralateral right common femoral veins to be fully compressible with normal color Doppler blood flow. Superficial veins: Greater saphenous vein is fully compressible. No popliteal cyst. IMPRESSION: Normal bilateral lower extremity venous ultrasound, no sign of deep venous thrombosis. Dictated by Marcel Jc MD @ 02/28/2022 5:21:34 AM (Electronic Signature) ECG Data Attestation: I personally reviewed and interpreted this ECG as follows: (Sinus tachycardia, 105 beats per minute, nonspecific ST and T-wave abnormality.) Interpretation: Repeat EKG at 4:28 a.m. shows sinus rhythm 83 beats per minute. Prolonged QT at 491 milliseconds. No ischemic change. There are no ST T wave changes which were seen on arrival with her mild tachycardia. Critical Care Time Critical Care Time Critical Care Time: Yes Attestation: The patient required my highest level preparedness to intervene emergently and I personally spent this critical care time directly and personally managing the patient. This critical care time included: Obtaining a history; Examining the patient; Pulse oximetry; Ordering and reviewing of studies; Arranging urgent treatment with development of a management plan; Evaluation of patients response to treatment; Frequent reassessment discussions with other providers. This critical care time was performed to assess and manage the high probability of imminent life-threatening deterioration that could result in multiorgan failure. It was exclusive of separate billable procedures and treating other patients and teaching time. Total Critical Care Time in Minutes: 30 (Initial time in the ED was critical care as patient did come in from EMS on BiPAP, 1st 30 minutes were used for stabilization and obtaining appropriate history.) Discharge Plan Discharge Clinical Impression: Pneumonia due to COVID-19 virus, Elevated troponin I level, Hypoxia Patient Disposition: Admitted As Inpatient Condition: Improved Activity Level: Activity as Tolerated Discharge Diet: Regular
[2022-02-28 01:01] LABS: HCO3 VBG 21 mmol/L (21-28); PCO2 VBG 31 mmHG (40-50); PO2 VBG 40.9 mmHG (25-47); pH VBG 7.429 (7.32-7.43)
[2022-02-28 01:03] LABS: Basophils Absolute Auto 0.01 K/uL (0.00-0.30); Basophils Percent Auto 0.1 % (0.0-3.0); Eosinophils Absolute Auto 0.01 K/uL (0.00-0.50); Eosinophils Percent Auto 0.1 % (0.0-7.0); Hematocrit 31.7 % (33.0-51.0); Hemoglobin* 10.3 gm/dL (12.0-16.0); Immature Granulocytes Abs Auto 0.08 K/uL (0.00-0.30); Immature Granulocytes Pct Auto 0.7 %; Lymphocytes Percent Auto 3.3 % (20-44); Mean Corpuscular HGB Conc 33 gm/dL (32-36); Mean Corpuscular Hemoglobin 30 pg (26-34); Mean Corpuscular Volume 92 fL (80-100); Monocytes Percent Auto 0.4 % (0.0-11.0); Neutrophils Percent Auto 95.4 % (42.0-72.0); Platelet Count* 299 K/uL (140-440); RDW Coefficient of Variation % 15.3 % (11.5-15.5); Red Blood Count 3.46 m/uL (4.00-5.20); White Blood Count* 10.71 K/uL (4.50-11.00)
[2022-02-28 01:07] LABS: PCR FLU A Negative PCR FLU A (Negative); PCR FLU B Negative PCR FLU B (Negative); PCR RSV Negative PCR RSV (Negative)
[2022-02-28 01:09] LABS: Slide Review Reflex No
[2022-02-28 01:09] LABS: SARS PCR* POSITIVE SARS-CoV-2 (Negative)
[2022-02-28 01:10] LABS: Lactate* 1.9 mmol/L (0.5-1.9)
[2022-02-28 01:15] LABS: Troponin, Point-of-Care* 0.12 ng/ml (0.01-0.04)
[2022-02-28] MEDS: 0.9 % SODIUM CHLORIDE 250 ml 250 ML IV (01:21)
[2022-02-28] MEDS: ACETAMINOPHEN 325 MG TABLET 650 MG PO (01:24)
[2022-02-28 01:27] LABS: Creatine Kinase* 82 U/L (41-117)
[2022-02-28 01:35] LABS: D Dimer Quantitative* 17.15 ug/ml (0.00-0.50)
--- OUTSIDE RECORDS SUMMARY | 2022-02-28 01:36 | XMS_ITS | Encounter Summary ---
:1940 Author Organization [facility] Address [address] [place] [address] Care Team Providers Name Role Phone Vicente Plummer M.D. Primary Care Provider Encounter Details Date Type Department Care Team Description 09/30/2021 Clinical Communication Department of Rusty Alaniz, Medicine, Nicolasa Soria [facility], in [address], [address] [facility] [address] [place], [place] [phone] (Work) [phone] Social History Tobacco Use Types Packs/Day Years Used Date Smoking Tobacco: Never Smokeless Tobacco: Never Alcohol Use Standard Drinks/Week Comments No 0 (1 standard drink = 0.6 oz pure alcoho l) Sex Assigned at Date Recorded Female 09/25/2017 1:20 PM CDT documented as of this encounter Miscellaneous Notes Telephone Encounter - Shea Chapman, C.M.A. - 10/01/2021 5:01 PM CDT SUBJECTIVE CHIEF COMPLAINT / REASON FOR CALL No chief complaint on file. PLAN The following information was provided: Notified of recommendation. And per Dr. Batista was advised to increase salt intake to helpwith sodium. If no improvement after this weekend was told to call [facility] to get in to be seen. No further questions or concerns at this time. Information/Education: patient/caller able to teach back The following references were used: provider Dr. Batista/Dr. Thapa Telephone Encounter - Apple Guerin L.P.N. - 10/01/2021 3:29 PM CDT Need to speak with the patient and inform her that if she has any of the following symptoms: nausea,vomiting, headache or confusion: she needs to go to the ER. This is not normal. If she does not wantto be treated for this, then she needs to increase her Sodium intake this weekend. This can get bad.Where does she want to be treated for this? [facility] or [place]? Telephone Encounter - Jenny Thapa M.D. - 10/01/2021 3:19 PM CDT Please call this patient and let her know that her low sodium should be followed. Sounds like she does not want to be seen for this in [place] or [place]? Electronically signed by: Jenny Thapa M.D. 10/01/21 3:20 PM CDT Telephone Encounter - Netta Daugherty L.P.N. - 10/01/2021 1:32 PM CDT Any of the provider here could see her. Would just have to get her an appointment. How soon are you wanting her seen? Telephone Encounter - Jenny Thapa M.D. - 10/01/2021 1:24 PM CDT This patient is elderly with a sick elderly . She lives in [place]. She cannot wait until 10/25/[address] Plummer who is her listed PCP. Is there anyone in that clinic who can help this patient with her hyponatremia so that she doesn't have to drive to [place] to get her labs and follow up appointments done? Thanks. Electronically signed by: Jenny Thapa M.D. 10/01/21 1:21 PM CDT Telephone Encounter - Apple Guerin L.P.NRegina - 10/01/2021 8:[address] Thapa has sent a message to Dr. Plummer as well. So Dr. Thapa is wondering if she can transfer the care to Dr. Plummer (who is the PCP) because patient will be needing more follow up care and she lives in [place] with her elderly . Patient was seen with Dr. Thapa and her Sodium level is at 129 and not sure how long this has been going on for. Patient was brought in by her niece in a wheelchair. Telephone Encounter - Jenny Thapa M.D. - 09/30/2021 9:43 PM CDT Nurse: Please try to contact Dr. Vicente Plummer for me. I am not sure if she is located here in [place] or in [place]. I need to speak with her regarding this patient's hyponatremia. Thanks. Electronically signed by: Jenny Thapa M.D. 09/30/21 9:44 PM CDT documented in this encounter Plan of Treatment Not on filedocumented as of this encounter Visit Diagnoses Not on filedocumented in this encounter Care Teams Sales Branch Manager Relationship Specialty Start Date End Date Vicente Plummer M.D. PCP - General Family Medicine 12/15/[address] [place] [phone] documented as of this encounter
--- OUTSIDE RECORDS SUMMARY | 2022-02-28 01:36 | XMS_ITS | Encounter Summary ---
:1940 Author Organization [facility] Address [address] [place] [address] Care Team Providers Name Role Phone Vicente Plummer M.D. Primary Care Provider Reason for Visit Reason Comments Med Refill Encounter Details Date Type Department Care Team Description 01/12/2021 Refill Division of [facility], Noemi Lombardi M.D., Med Refill Internal Medicine, [facility] [place], [address] [place] [phone] [place] [address] [place] [address] [phone] Social History Tobacco Use Types Packs/Day Years Used Date Smoking Tobacco: Never Smokeless Tobacco: Never Alcohol Use Standard Drinks/Week Comments No 0 (1 standard drink = 0.6 oz pure alcoho l) Sex Assigned at Date Recorded Female 09/25/2017 1:20 PM CDT documented as of this encounter Plan of Treatment Not on filedocumented as of this encounter Visit Diagnoses Not on filedocumented in this encounter Care Teams Senior Analyst Relationship Specialty Start Date End Date Vicente Plummer M.D. PCP - General Family Medicine 12/15/[address] [place] [phone] documented as of this encounter
--- OUTSIDE RECORDS SUMMARY | 2022-02-28 01:36 | XMS_ITS | Encounter Summary ---
:1940 Author Organization [facility] Address [address] [place] [address] Care Team Providers Name Role Phone Vicente Plummer M.D. Primary Care Provider Reason for Referral Specialty Diagnoses / Procedures Referred By Contact Refer red To Contact Vicente Plummer M.D . [facility] [address] [place] [address] Referral ID Status Reason Start Date Expiration Date Visits Requ ested Visits Authorized Encounter Details Date Type Department Care Team Description 10/23/2021 Orders Only [facility] Therese Plummer M.D. [address] [place], [place] [phone] (Wo rk) Social History Tobacco Use Types Packs/Day Years Used Date Smoking Tobacco: Never Smokeless Tobacco: Never Alcohol Use Standard Drinks/Week Comments No 0 (1 standard drink = 0.6 oz pure alcoho l) Sex Assigned at Date Recorded Female 09/25/2017 1:20 PM CDT documented as of this encounter Plan of Treatment Scheduled Referrals Name Type Priority Associated Order Schedule Diagnoses Covid immunization Outpatient Referral Routine Ex pected: office visit 10/23/2021 Immuno/Booster (Approximate) , Expires: 10/23/2022 documented as of this encounter Visit Diagnoses Not on filedocumented in this encounter Care Teams Technical Aid Relationship Specialty Start Date End Date Vicente Plummer M.D. PCP - General Family Medicine 12/15/20 [address] [place] [address] documented as of this encounter
--- OUTSIDE RECORDS SUMMARY | 2022-02-28 01:36 | XMS_ITS | Encounter Summary ---
:1940 Author Organization [facility] Address [address] [place] [address] Care Team Providers Name Role Phone Vicente Plummer M.D. Primary Care Provider Reason for Referral Outpatient (Routine) - Closed Specialty Diagnoses / Procedures Referred By Contact Refer red To Contact Diagnoses Retention Urinary Infection Urinary Tract Recurrent Verónica Escalante APRN, [facility] Procedures US Kidneys Bilateral with Bladder C.N.P. [address] [place] [phone] Referral ID Status Reason Start Date Expiration Date Visits Requ ested Visits Authorized [id number] Closed 03/16/2020 03/16/2021 1 1 OSAL MANAGER Reason for Visit Outpatient (Routine) - Closed Specialty Diagnoses / Procedures Referred By Contact Refer red To Contact Diagnoses Retention Urinary Infection Urinary Tract Recurrent Verónica Escalante APRN, [facility] [place] [facility] Procedures US Kidneys Bilateral with Bladder C.N.P. [address] [place] [phone] Referral ID Status Reason Start Date Expiration Date Visits Requ ested Visits Authorized [id number] Closed 03/16/2020 03/16/2021 1 1 Encounter Details Date Type Department Care Team Description 03/22/2021 Hospital Encounter Department of Verónica Escalante Urinary; Radiology in [place], C.N.PRegina Infection Urinary Tract Recurrent [place], [address] [place] [address] [address] [facility] [address] [address] [place] [phone] (Work) [phone] Social History Tobacco Use Types Packs/Day Years Used Date Smoking Tobacco: Never Smokeless Tobacco: Never Alcohol Use Standard Drinks/Week Comments No 0 (1 standard drink = 0.6 oz pure alcoho l) Sex Assigned at Date Recorded Female 09/25/2017 1:20 PM CDT documented as of this encounter Medications at Time of Discharge Medication Sig Dispensed Refills Start Date End Date aspirin [address] tablet Take 81 mg by 0 mouth daily. CALCIUM CARB/VIT D3/MINERALS Take 1 tablet by 0 1 (CALCIUM-VITAMIN D ORAL) mouth daily. carvediloL (COREG) 25 mg TAKE 1 TABLET(25 180 tablet 3 01/17 tablet MG TOTAL) BY MOUTH 2(TWO) TIMES A DAY WITH MEALS. furosemide (LASIX) 40 mg TAKE ONE-HALF 90 tablet 3 01/16/20 21 tablet TABLET TWICE DAILY hydroxychloroquine 2 (two) times a 0 03/02/2018 (PLAQUENIL) 200 mg tablet day. methotrexate 2.5 mg tablet once a week. 0 019 MULTIVITAMIN ORAL Take 1 tablet by 0 01/11/2010 mouth daily. predniSONE (DELTASONE) 1 mg daily. 0 01/25/20 18 tablet alendronate (FOSAMAX) 70 mg Take 1 tablet 12 tablet 11 10/1412/10/2021 tablet (70 mg total) by mouth every 7 (seven) days. Take with 8oz of water, on an empty stomach. Remain upright for 30min. documented as of this encounter Plan of Treatment Not on filedocumented as of this encounter Procedures Procedure Name Priority Date/Time Associated Comments Diagnosis US KIDNEYS RAD - Routine 03/22/2021 1:52 Retention Urinar y Results for this BILATERAL WITH (most inpatients PM PROPOSAL MANAGER Infection Urinary proc edure are in BLADDER and all Tract Recurrent the results outpatients) section. documented in this encounter Results US Kidneys Bilateral with Bladder (03/22/2021 1:52 PM PROPOSAL MANAGER) Anatomical Region Laterality Modality Abdomen, Renal, Ultrasound RST LOS, Ultrasound ARZ LOS, Bila teral Ultrasound Ultrasound FLA LOS Specimen (Source) Anatomical Collection Method Collection Time Re ceived Time Location / / Volume Laterality 03/22/2021 2:11 PM PROPOSAL MANAGER Impressions 03/22/2021 2:14 PM PROPOSAL MANAGER No hydronephrosis. Narrative 03/22/2021 2:14 PM PROPOSAL MANAGER EXAM: US KIDNEYS BILATERAL WITH BLADDER COMPARISON: Prior ultrasound 12/07/2015 FINDINGS: Right kidney: 9.2 cm compared to 9.4 cm on the prior ultrasound Cortical thickness: Normal. ?? Parenchymal echogenicity: Normal. Collecting system: No hydronephrosis. Masses: None detected. Left kidney: 8.7 cm compared to 10.2 cm on the prior ultrasound Cortical thickness: Normal. ?? Parenchymal echogenicity: Normal. Collecting system: No hydronephrosis. Masses: None detected. Bladder: Small volume of urine in the ur inary bladder Procedure Note Ilir Lowery M.D. - 03/22/2021Formatti ng of this note might be different from the original. EXAM: US KIDNEYS BILATERAL WITH BLADDER COMPARISON: Prior ultrasound 12/07/2015 FINDINGS: Right kidney: 9.2 cm compared to 9.4 cm on the prior ultrasound Cortical thickness: Normal. Parenchymal echogenicity: Normal. Collecting system: No hydronephrosis. Masses: None detected. Left kidney: 8.7 cm compared to 10.2 cm on the prior ultrasound Cortical thickness: Normal. Parenchymal echogenicity: Normal. Collecting system: No hydronephrosis. Masses: None detected. Bladder: Small volume of urine in the ur inary bladder IMPRESSION: No hydronephrosis. Verónica Escalante APRN, C.N.P. IMG US PROCEDURES documented in this encounter Visit Diagnoses Diagnosis Retention Urinary Infection Urinary Tract Recurrent documented in this encounter Care Teams Buffing Turner And Counter Relationship Specialty Start Date End Date Vicente Plummer M.D. PCP - General Family Medicine 12/15/[address] [place] [phone] documented as of this encounter
--- OUTSIDE RECORDS SUMMARY | 2022-02-28 01:36 | XMS_ITS | Encounter Summary ---
:1940 Author Organization [facility] Address [address] [place] [address] Care Team Providers Name Role Phone Vicente Plummer M.D. Primary Care Provider Reason for Visit Reason Comments Form Review [employer] [id number] Encounter Details Date Type Department Care Team Description 01/22/2021 Clinical Communication Department of [facility], Form Review Community Internal Noemi Lombardi ([facility] [id number]) Medicine in M.DRegina, [facility] [place], [address] [place] [address] [address] [facility] [address] [place], [place] [phone] (Work) [phone] Social History Tobacco Use Types Packs/Day Years Used Date Smoking Tobacco: Never Smokeless Tobacco: Never Alcohol Use Standard Drinks/Week Comments No 0 (1 standard drink = 0.6 oz pure alcoho l) Sex Assigned at Date Recorded Female 09/25/2017 1:20 PM CDT documented as of this encounter Miscellaneous Notes Telephone Encounter - Joann Gutierrez - 01/25/2021 11:06 AM CDT Received back completed form. Form faxed back to the listed facility. Scanned into [facility] Telephone Encounter - Joann Gutierrez - 01/22/2021 2:16 PM CDT Form was emailed to Vicente Plummer M.D. for electronic review/signature. JAMMER OPERATOR: [facility] (Home Health Agency) PHONE NUMBER: [phone] INFO REQUESTED: Initial Date: 12-30-20 INSTRUCTIONS: Fax information to [phone] documented in this encounter Plan of Treatment Not on filedocumented as of this encounter Visit Diagnoses Not on filedocumented in this encounter Care Teams Oil Operator Relationship Specialty Start Date End Date Vicente Plummer M.D. PCP - General Family Medicine 12/15/[address] [place] [phone] documented as of this encounter
--- OUTSIDE RECORDS SUMMARY | 2022-02-28 01:36 | XMS_ITS | Encounter Summary ---
:[address] [facility] Address [address] [place] [address] Care Team Providers Name Role Phone Vicente Plummer M.D. Primary Care Provider Reason for Visit Reason Comments Med Refill Encounter Details Date Type Department Care Team Description 01/12/2021 Refill Department of Family Medicine, Jyalan Haines P.A.-C. Med Refill [facility], in [address] [place] [address] [place] [phone] [address] [facility] [place] [place] [address] [phone] Social History Tobacco Use Types Packs/Day Years [...] on filedocumented in this encounter Care Teams Reimbursement Analyst Relationship Specialty Start Date End Date Vicente Plummer M.D. PCP - General Family Medicine 12/15/[address] [place] [phone] documented as of this encounter
--- OUTSIDE RECORDS SUMMARY | 2022-02-28 01:36 | XMS_ITS | Encounter Summary ---
:1940 Author Organization [facility] Address [address] [place] [address] Care Team Providers Name Role Phone Vicente Plummer M.D. Primary Care Provider Reason for Visit Reason Comments [facility] ([facility] - Closed Specialty Diagnoses / Procedures Referred By Contact Refer red To Contact Urology Verónica Escalante APRN, C.N.P. [facility] [address] [phone] Referral ID Status Reason Start Date Expiration Date Visits Requ ested Visits Authorized [id number] Closed 03/16/2020 03/16/2021 1 1 Encounter Details Date Type Department Care Team Description 03/29/2021 Office Visit Department of Urology Verónica Escalante, Retention Urinary (Primary Dx); in [place], C.N.P. Infection Urinary Tract Recurrent [place] [address] [phone] Social History Tobacco Use Types Packs/Day Years Used Date Smoking Tobacco: Never Smokeless Tobacco: Never Alcohol Use Standard Drinks/Week Comments No 0 (1 standard drink = 0.6 oz pure alcoho l) Sex Assigned at Date Recorded Female 09/25/2017 1:20 PM CDT documented as of this encounter Last Filed Vital Signs Vital Sign Reading Time Taken Comments Blood Pressure - - Pulse 56 03/29/2021 10:17 AM SUBSCRIPTION CLERK Temperature - - Respiratory Rate - - Oxygen Saturation 97% 03/29/2021 10:17 AM SUBSCRIPTION CLERK RA Inhaled Oxygen Concentration - - Weight - - Height - - Body Mass Index - - documented in this encounter Progress Notes Verónica Escalante APRN, C.N.P. - 03/29/2021 10:30 AM CST SUBJECTIVE CHIEF COMPLAINT/REASON FOR VISIT Chief Complaint Patient presents with ??? 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 She does have InterStim in place that is working, she is able to feel stimulation. It is currently on program 3 at 2.2 ma. She performs intermittent catheterization 4-6 times daily. She usually does not urinate on her own. She has had some difficulty with DME supplies, her current supply company has been charging much more than previous, she wonders if there are more inexpensive options for this. She had four UTI's this year, the last in December. She does not feel that she has an infection at this time. Renal ultrasound and abdominal x-ray were performed prior to this visit, no abnormalities were noted. The following portions of the patient's history were reviewed and updated as appropriate: allergies,current medications, family history, medical history, social history, surgical history and problem list. REVIEW OF SYSTEMS Gastrointestinal: Negative for constipation. Musculoskeletal: Positive for arthralgias, pain or stiffness in the joints and joint swelling. OBJECTIVE Vitals: 03/29/21 1017 Pulse: (!) 56 SpO2: 97% PHYSICAL EXAM Vitals and nursing note reviewed. General: Well developed, well nourished, well groomed elderly female in no acute distress. Neurological: Alert, cooperative, oriented x3. Appropriate mood and affect. Head: Normal appearance, no abnormalities, normocephalic. Neck: Symmetrical and supple, trachea is midline. Cardiac: regular rate, regular rhythm Respiratory: Respirations are unlabored with normal respiratory rate and normal respiratory movements. Normal chest wall expansion without use of accessory muscles. Abdomen: Soft, non-tender, non-distended Extremities: Warm, without edema or ulcerations. ASSESSMENT / PLAN #1 Retention Urinary #2 Infection Urinary Tract Recurrent She should continue to perform intermittent catheterization 6 times daily, 180 per month, she has adequate refills of DME supplies. She is concerned that her current DME supplier is charging quite a bit more than her previous supplier. We can send referral to our colleagues at [employer] for mail orderdelivery for her at a better rich. Orders are placed for UA UC, this is a standing order and if shehas symptoms of infection she should bring a urine sample to the lab. Specimen cups are provided forher. Follow-up in 1 year with renal ultrasound and abdominal x-ray prior to visit, sooner if needed.All questions are answered today. Signed by: Verónica Escalante APRN, C.N.P. 03/30/2021 8:43 PM SUBSCRIPTION CLERK CRIPTION CLERK documented in this encounter Plan of Treatment Not on filedocumented as of this encounter Visit Diagnoses Diagnosis Retention Urinary - Primary Infection Urinary Tract Recurrent documented in this encounter Care Teams Cement Grinding Mill Operator Relationship Specialty Start Date End Date Vicente Plummer M.D. PCP - General Family Medicine 12/15/[address] [place], [place] [address] [phone] documented as of this encounter
--- OUTSIDE RECORDS SUMMARY | 2022-02-28 01:36 | XMS_ITS | Encounter Summary ---
:1940 Author Organization [facility] Address [address] [place] [address] Care Team Providers Name Role Phone Vicente Plummer M.D. Primary Care Provider Reason for Visit Reason Comments Pre-op Exam Left shoulder surgery at [facility] either 10/04 or 10/06. Appointment Request (Routine) - Closed Specialty Diagnoses / Procedures Referred By Contact Refer red To Contact Family Medicine Referral ID Status Reason Start Date Expiration Date Visits Requ ested Visits Authorized [id number] Closed 09/28/2021 09/28/2022 1 1 Encounter Details Date Type Department Care Team Description 09/30/2021 Office Visit Department of Family Monty Thapa Pre operative Exam (Primary Dx); Nicolasa Gann M.D. Hyponatremia; Clinic, in [facility] [address] Fracture Humerus Proximal Closed Initial Left; [facility] [place], Arthritis Rheumatoid (HCC); [address] [place] [address] Hypertension And Chronic Kidney Disease Stage 3 ([facility]); [place], [place] [phone] Infection Urina ry Tract Recurrent [id number] (Work) [phone] Social History Tobacco Use Types Packs/Day Years Used Date Smoking Tobacco: Never Smokeless Tobacco: Never Alcohol Use Standard Drinks/Week Comments No 0 (1 standard drink = 0.6 oz pure alcoho l) Sex Assigned at Date Recorded Female 09/25/2017 1:20 PM CDT documented as of this encounter Last Filed Vital Signs Vital Sign Reading Time Taken Comments Blood Pressure 152/68 09/30/2021 10:49 AM CDT Pulse 56 09/30/2021 10:49 AM CDT Temperature 36 ??C (96.8 ??F) 09/30/2021 10:49 AM CDT Respiratory Rate - - Oxygen Saturation - - Inhaled Oxygen Concentration - - Weight 65.8 kg (145 lb) 09/30/2021 10:49 AM CDT Height 157 cm (5' 1.81) 09/30/2021 10:49 AM CDT Body Mass Index 26.68 09/30/2021 10:49 AM CDT documented in this encounter Patient Instructions Patient InstructionsMonty Thapa M.D. - 09/30/2021 11:49 AM CDT Ur Stop all aspirin, ibuprofen, Aleve, fish oil, or herbal medicines from now until surgery date. documented in this encounter H&P Notes Monty Thapa M.D. - 09/30/2021 11:00 AM CDT DATE OF PREOPERATIVE EXAMINATION: 09/30/21 SURGEON'S NAME: Patient does not know. SURGERY DATE: Per patient, either 10/04/2021 or 10/06/2021 PROCEDURE: per patient, ORIF of left shoulder HISTORY OF PRESENT ILLNESS: This is a 80 y.o. female who is new to me. Her listed PCP is Dr. Scanlon. This patient was seen at [facility] last week where she was diagnosed with a fractured left wrist and left shoulder due to a fall a week ago. There are no records available for review on Care Everywhere. Patient states that she is scheduled for left shoulder surgery on either 10/04/2021 or 10/06/2021 at the [facility]. Patient does not know the name of the orthopedic surgeon who will be operating. REVIEW OF SYSTEMS: General: No recent fever, weight loss, or extreme fatigue. Eyes: No double vision or sudden loss of vision. ENT: No sore throat, runny nose, ear pain, or hearing loss. Heart:: No chest pain, pain in legs relieved with rest, irregular heartbeats Respiratory: No cough, wheezing, shortness of breath, or excessive snoring. Digestion: No nausea, vomiting, heartburn, abdominal pain, bloating, constipation, diarrhea, or blood in stools. Genito/Urinary: No irregular menses, vaginal bleeding after menopause, frequent or painful urination, or bloody urine. Patient self catheterizes. Skin: No rash, sores, excessive bruising, or change of a mole. Nerves/Brain: No headache, persistent weakness or numbness on one side of the body, or falling Muscle/Bone: No back pain. Mental Health: No depression, anxiety, or suicidal thoughts. Endocrine: No excessive thirst or urination, cold or heat intolerance, breast mass, swelling in legs, feet, or hands. Blood: No unusual bruising or bleeding, or enlarged lymph nodes. SURGICAL RISKS: 1. Sleep apnea: No, Stop Bang Total Score: 3 2. Cardiac risk: None 3. Stent in the past 12 months: No 4. History of bacterial endocarditis: No 5. History of heart valve replacement: No 6. History of joint replacement: Yes, right knee replacement in 2018. 7. Special diet: No 8. Dental issues: None 9. Oxygen at home: No 10. Anesthesia problems: Yes, vomiting when waking up from anesthesia. 11. Asthma: No 12. Recent cough: No 13. Reflux: No 14. Need antibiotics prior to surgery or dental procedures: No 15. Walking aid: Usually not except occasional cane. Today, on a wheelchair since unstable from the shoulder pain. 16: Steroids in the last 6 months: Yes, low dose for rheumatoid arthritis. 17. History of blood clots: Yes, in 2019. Was on Lovenox shots for a few weeks. 18. Anticoagulation: Baby aspirin daily. Patient will discontinue today. 19. History of MRSA skin infections: No 20. Diabetes: No , just prediabetes. 21. : No MEDICATIONS: Current Outpatient Medications Medication Sig Dispense Refill ??? alendronate (FOSAMAX) 70 mg tablet Take 1 tablet (70 mg total) by mouth every 7 (seven) days. Take with 8oz of water, on an empty stomach. Remain upright for 30min. 12 tablet 11 ??? aspirin [address] tablet Take 81 mg by mouth daily. ??? CALCIUM CARB/VIT D3/MINERALS (CALCIUM-VITAMIN D ORAL) Take 1 tablet by mouth daily. ??? carvediloL (COREG) 25 mg tablet TAKE 1 TABLET(25 MG TOTAL) BY MOUTH 2(TWO) TIMES A DAY WITH MEALS. 180 tablet 3 ??? furosemide (LASIX) 40 mg tablet TAKE ONE-HALF TABLET TWICE DAILY 90 tablet 3 ??? HYDROcodone-acetaminophen (NORCO) 5-325 mg per tablet Take 1 tablet by mouth every 6 (six) hoursas needed for pain (Taking as tolerated.). ??? hydroxychloroquine (PLAQUENIL) 200 mg tablet 2 (two) times a day. 0 ??? MULTIVITAMIN ORAL Take 1 tablet by mouth daily. ??? predniSONE (DELTASONE) 1 mg tablet daily. 0 ??? methotrexate 2.5 mg tablet once a week. 0 No current facility-administered medications for this visit. Allergies Allergen Reactions ??? Clonidine Hallucinations ??? Leflunomide Hallucinations ??? Lisinopril Other (see comments) Increased creatinine ??? Methotrexate Other (see comments) Did not feel well ??? Oxycodone Other (see comments) No reaction listed in Cerner ??? Sulfa (Sulfonamide Antibiotics) Other (see comments) No reaction listed in [facility]ner Patient Active Problem List Diagnosis ??? Hypertension And Chronic Kidney Disease Stage 3 ??? Hyperlipidemia Mixed ??? Pain Knee Left ??? Retention Urinary ??? Arthritis Rheumatoid (HCC) ??? Obesity Body Mass Index 30-39.9 Adult ??? Infection Urinary Tract Recurrent ??? Thrombosis Deep Vein Personal History ??? Loss Hearing Sensorineural Bilateral ??? Edema Leg ??? Primary Osteoarthritis Multiple Sites ??? PreDiabetes ??? Presence Of Neurostimulator PAST MEDICAL HISTORY: Past Medical History: Diagnosis Date ??? Cataract ??? Epicondylitis Medial Right 04/04/2017 ??? Fatigue 08/07/2013 ??? Gallbladder Disorder ??? Hyperlipidemia Mixed ??? Osteopenia 10/17/2018 Confirmed on DEXA scan ??? Other Specified Hearing Loss Bilateral Has hearing aids ??? Polymyalgia Rheumatica (HCC) ??? Presence Of Right Artificial Knee Joint 07/12/2017 ??? 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 Retention Urinary 02/01/2016 ??? Varicose Vein Lower Extremity With Edema 08/13/2013 PAST SURGICAL HISTORY: Past Surgical History: Procedure Laterality Date ??? BREAST BIOPSY Right 1971 ??? BREAST BIOPSY Right 1970 ??? BREAST SURGERY Right 1983 Benign x 2 ??? CATARACT EXTRACTION AND INSERTION OF INTRAOCULAR LENS Bilateral ??? CHOLECYSTECTOMY ??? FLEXIBLE SIGMOIDOSCOPY 11/2003 ??? HYSTERECTOMY ABDOMINAL WITH SALPINGO - OOPHORECTOMY Bilateral 1992 Nonmalignant reasons with associated bladder repair ??? REPLACEMENT TOTAL KNEE Right 06/2017 ??? SACRAL NERVE STIMULATOR PLACEMENT 05/04/2016 Advanced trial of InterStim SOCIAL HISTORY: Social History Socioeconomic History ??? Marital status: Spouse name: Not on file ??? Number of children: 5 ??? Years of education: Not on file ??? Highest education level: Not on file Occupational History Employer: [employer] Comment: REtired Tobacco Use ??? Smoking status: Never Smoker ??? Smokeless tobacco: Never Used Vaping Use ??? Vaping Use: never used Substance and Sexual Activity ??? Alcohol use: No ??? Drug use: No ??? Sexual activity: Not Currently Partners: Male control/protection: Post-menopausal Other Topics Concern ??? 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 Her from prostate cancer around 1994. [employer]: Bahai Social Determinants of Health Financial Resource Strain: Not on file Food Insecurity: Not on file Transportation Needs: Not on file Physical Activity: Not on file Stress: Not on file Social Connections: Not on file Intimate Partner Violence: Not on file Housing Stability: Not on file FAMILY HISTORY: Family History Problem Relation Age of Onset ??? Hypertension Brother ??? Diabetes Brother ??? Coronary artery disease Brother ??? Heart attack Brother In his 40s ??? Cataracts Father ??? Rheum arthritis Mother ??? Stroke Son Due to blood clot. ??? No Known Problems Son VITALS: Vitals: 09/30/21 1049 BP: 152/68 Pulse: (!) 56 Temp: 36 ??C Ht 157 cm Wt 65.8 kg Body mass index is 26.68 kg/m??. PHYSICAL EXAMINATION: General:: Well developed, well nourished female in no acute distress. She is sitting on a wheelchair. Skin:: No significant rashes. Eyes: No eyelid lesions. Conjunctiva clear. No eye discharge. Pupils equal, round and reactive to light. Extraocular movements intact. ENT: No external ear lesions. Wears hearing aids bilaterally. Right ear canal ceruminous. Left tympanic membrane clear with good light reflex, no erythema. Nasal passages patent. No sinus tenderness. Pharynx is clear with no erythema or tonsillar exudates. No postnasal drainage. Neck is supple. Trachea at midline. Lymph Nodes: No cervical lymphadenopathy. Thyroid: No masses/nodules. Nontender. Heart:: Regular rate and rhythm. No murmurs. No chest wall tenderness. Lungs: Clear to auscultation bilaterally with fair airflow. Abdomen: Nontender, soft. No masses. Back: No CVA tenderness. Extremities: Wearing a sling on her left arm. Left wrist is bandaged. No cyanosis or clubbing. Left ankle mildly edematous.. Gait:: Using a wheelchair today due to pain. Per niece who is with her today, she normally can walk with a cane. Mental Status: Affect appropriate. Recent and remote memory intact. Neuro: Alert, oriented. LABS: Recent Results (from the past 72 hour(s)) Urinalysis with Microscopic: Urine, Straight Catheter Collection Time: 09/30/21 12:55 PM Result Value Source Urine, Urine, Straight Catheter Clarity Cloudy (A) Color Yellow Blood Negative Nitrite Positive (A) Leukocyte Esterase Large (A) Protein Negative Glucose Negative Ketone Negative Bilirubin Negative pH 6.0 Specific [place] 1.009 Urobilinogen 0.2 White Blood Cells 51-100 (A) Red Blood Cells None Seen Bacteria Present (A) Basic Metabolic Panel Collection Time: 09/30/21 12:55 PM Result Value Potassium, P 4.8 Sodium, P 129 (L) Chloride, P 94 (L) Bicarbonate, P 24 Anion Gap, P 11 BUN (Blood Urea Nitrogen), P 16 Creatinine, P 0.94 eGFR-Black/ 66 eGFR Non-Black/ 57 (L) Calcium, Total, P 9.1 Glucose, P 142 (H) IMPRESSION / REPORT / PLAN: #1 Hyponatremia . Mild to moderate hyponatremia with sodium level at 129. . For comparison, sodium level in 04/16/2021 was 138 (normal range). It is unclear when her sodium level decreased, whether this is acute or chronic. . Since this is a late dictation, I did call this patient (approx 9PM today) to see how she is doing. She denied respiratory problems, headache, nausea, vomiting, tremors, confusion or increased gait problems. She also informed me that she had received a call from the orthopedic surgeon who had informed her that they are not going to do surgery in the next several days. She was instructed to continuewearing her sling and doing her exercises for now and she will follow-up with the orthopedic surgeonin 3 weeks to re-x-ray her shoulder. . Patient stated that she drinks about 42 oz of water per day. . Since patient is asymptomatic with no concerns tonight, I did inform this patient that I will contact her PCP, Dr. Plummer, tomorrow to discuss treatment of this patient's hyponatremia. #2 Preoperative Exam . As above, patient's surgery has been cancelled. #3 Fracture Humerus Proximal Closed Initial Left . In preparation for her surgery, COVID test was ordered today. - SARS Coronavirus-2 RNA, V Asymptomatic; Future; Expected date: This COVID-19 Screening Test is forhigh-risk outpatient appointments and procedures; test is to be done 2-5 days before any high-risk appointment or procedure. #4 Arthritis Rheumatoid (HCC) . Patient will hold methotrexate for surgery. . Surgeon was planning to discuss with her devops solutions architect whether she should hold Plaquenil for surgery as well. . Patient was to continue her low dose prednisone. #5 Hypertension And Chronic Kidney Disease Stage 3 (HCC) . Since she is on Lasix, basic metabolic panel was ordered today. - Basic Metabolic Panel; Future; Expected date: 09/30/2021 #6 Infection Urinary Tract Recurrent . Urinalysis and urine culture ordered today. - Urinalysis with Microscopic: Urine, Straight Catheter; Future; Expected date: 09/30/2021 - Bacterial Culture, Aerobic + Susc, Urine; Future; Expected date: 09/30/2021 - Urinalysis with Microscopic: Urine, Straight Catheter Total time spent with this patient was over 90 minutes, more than half the time was spent in recordsreview, counselling, documentation, and coordination of care. documented in this encounter Miscellaneous Notes Addendum Note - Monty Thapa M.D. - 09/30/2021 11:00 AM CDT Addended by: MONTY THAPA on: 10/04/2021 06:06 PM Modules accepted: Orders documented in this encounter Plan of Treatment Not on filedocumented as of this encounter Procedures Procedure Name Priority Date/Time Associated Diagnosis Comme nts URINALYSIS WITH Routine 09/30/2021 12:55 Preoperative Ex am Results for this MICROSCOPIC PM CDT Infection Urinary procedure are in Tract Recurrent the results section. documented in this encounter Results (ABNORMAL) Bacterial Culture, Aerobic + Susc, Urine (09/30/2021 12:55 PM CDT) [facility] gist Method Time Signature Urine Culture ESCHERICHIA COLI 10/03/2021 [place] >100,000 cfu/mL 9:01 AM CDT (A) Specimen Anatomical Collection Method Collection Time Receive d Time (Source) Location / / Volume Laterality Urine (Urine, 09/30/2021 12:55 09/30/2021 7:13 Straight PM CDT PM CDT Catheter) Comment: Specimen Source Site: Urine Organism Antibiotic Method Susceptibility Escherichia coli Ampicillin SUSCEPTIBILITY, REJI <=2 mcg/mL: Susceptible (MCG/ML) Escherichia coli Ampicillin + Sulbactam SUSCEPTIBILITY, REJI <=2 mcg/mL: Susceptible (MCG/ML) Escherichia coli Piperacillin + Tazobactam SUSCEPTIBILITY, REJI < =4 mcg/mL: Susceptible (MCG/ML) Escherichia coli Cefazolin SUSCEPTIBILITY, REJI <=4 mcg/mL: Susceptible (MCG/ML) Comment: The interpretation applies t o uncomplicated urinary tract infections only. It al so applies to these oral cephalosporins: cefuroxime, cephalexin, and cefprozil. Escherichia coli Ceftazidime SUSCEPTIBILITY, REJI <=1 mcg/mL: (MCG/ML) Susceptible Escherichia coli Ceftriaxone SUSCEPTIBILITY, REJI <=1 mcg/mL: (MCG/ML) Susceptible Escherichia coli Cefepime SUSCEPTIBILITY, REJI <=1 mcg/mL: (MCG/ML) Susceptible Escherichia coli Aztreonam SUSCEPTIBILITY, REJI <=1 mcg/mL: (MCG/ML) Susceptible Escherichia coli Ertapenem SUSCEPTIBILITY, REJI <=0.5 mcg/m L: (MCG/ML) Susceptible Escherichia coli Meropenem SUSCEPTIBILITY, REJI <=0.25 mcg/ mL: (MCG/ML) Susceptible Escherichia coli Gentamicin SUSCEPTIBILITY, REJI <=1 mcg/mL: (MCG/ML) Susceptible Escherichia coli Tobramycin SUSCEPTIBILITY, REJI <=1 mcg/mL: (MCG/ML) Susceptible Escherichia coli Levofloxacin SUSCEPTIBILITY, REJI <=0.12 mcg/ mL: (MCG/ML) Susceptible Escherichia coli Nitrofurantoin SUSCEPTIBILITY, REJI <=16 mcg/mL : (MCG/ML) Susceptible Escherichia coli Trimethoprim + SUSCEPTIBILITY, REJI <=20 mcg/mL : Sulfamethoxazole (MCG/ML) Susceptible Monty Thapa M.D. LAB MICROBIOLOGY - GENERAL O RDJOSUÉ Performing Organization Address City/State/ZIP Code Phon e Number [facility]- [address] [place] [id number] [place] [address] [address] (ABNORMAL) Urinalysis with Microscopic: Urine, Straight Catheter (09/30/2021 12:55 PM CDT) P athologist Signature Source Urine, Urine, 09/30/2021 [place] Straight 1:33 PM CDT Catheter Clarity Cloudy (A) Clear 09/30/2021 [place] 1:33 PM CDT Color Yellow 09/30/2021 [place] 1:33 PM CDT Comment: ----REFERENCE VALUE---- Colorless Yellow Janeth Blood Negative Negative 09/30/2021 1:33 PM CDT OW[facility] Nitrite Positive (A) Negative 09/30/2021 1:33 PM CDT OW[facility] Leukocyte Esterase Large (A) Negative 09/30/2021 1:33 PM CD T OW[facility] Protein Negative mg/dL 09/30/2021 1:33 PM CDT OWAT Comment: ----REFERENCE VALUE---- Negative Trace Glucose Negative Negative mg/dL 09/30/2021 1:33 PM CDT OW AT Ketone Negative Negative mg/dL 09/30/2021 1:33 PM CDT OW AT Bilirubin Negative Negative 09/30/2021 1:33 PM CDT OW[place] pH 6.0 5.0 - 8.0 09/30/2021 1:33 PM CDT [place] Specific [place] 1.009 1.001 - 1.035 09/30/2021 1:33 PM CDT OW[facility] Urobilinogen 0.2 0.2 - 1.0 mg/dL 09/30/2021 1:33 PM CD T OW[facility] White Blood Cells 51-100 (A) /hpf 09/30/2021 1:35 PM CD T OWAT Comment: ----REFERENCE VALUE---- Males: 0-3 Females: 0-10 Unknown: 0-10 Red Blood Cells None Seen 0 - 2 /hpf 09/30/2021 1:35 PM CDT [facility] Bacteria Present (A) None Seen 09/30/2021 1:35 PM CDT OW[facility] Specimen Anatomical Collection Method Collection Time Receive d Time (Source) Location / / Volume Laterality Urine (Urine, 09/30/2021 12:55 09/30/2021 1:26 Straight PM CDT PM CDT Catheter) Monty Thapa M.D. LAB URINE ORDERABLES Performing Organization Address City/State/ZIP Code Phon e Number [facility]- [address] [place] [address] [place] [address] System in [place] [address] (ABNORMAL) Basic Metabolic Panel (09/30/2021 12:55 PM CDT) P athologist Signature Potassium, P 4.8 3.6 - 5.2 09/30/2021 [facility] mmol/L 2:21 PM CDT Sodium, P 129 (L) 135 - 145 09/30/2021 [place] mmol/L 2:21 PM CDT Chloride, P 94 (L) 98 - 107 09/30/2021 [place] mmol/L 2:21 PM CDT Bicarbonate, P 24 22 - 29 09/30/2021 [facility] mmol/L 2:21 PM CDT Anion Gap, P 11 7 - 15 09/30/2021 [facility] 2:21 PM CDT BUN (Blood Urea 16 6 - 21 09/30/2021 [facility] Nitrogen), P mg/dL 2:21 PM CDT Creatinine 0.94 0.59 - 09/30/2021 [place] 1.04 mg/dL 2:21 PM CDT eGFR-Black/Afri 66 >=60 09/30/2021 [facility] can [place] mL/min/BSA 2:21 PM CDT Comment: ----ADDITIONAL INFORMATION---- Estimated GFR calculated using the 2009 CKD_EPI creatinine equation. eGFR Non-Black/ 57 (L) >=60 mL/min/BSA 09/30/2021 2:21 PM CDT [facility] [place] Comment: ----ADDITIONAL INFORMATION---- Estimated GFR calculated using the 2009 CKD_EPI creatinine equation. Calcium, Total, P 9.1 8.8 - 10.2 mg/dL 09/30/2021 2:21 PM CDT OW[place] Glucose, P 142 (H) 70 - 140 mg/dL 09/30/2021 2:21 PM CDT O KENNEDY Specimen Anatomical Collection Method Collection Time Receive d Time (Source) Location / / Volume Laterality Blood (Blood, 09/30/2021 12:55 09/30/2021 1:35 Venous) PM CDT PM CDT Monty Thapa M.D. 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 PCP - General Family Medicine 12/15/[address] [place] [address] [place] [id number] documented as of this encounter
--- OUTSIDE RECORDS SUMMARY | 2022-02-28 01:36 | XMS_ITS | Encounter Summary ---
:1940 Author Organization [facility] Address [address] [place] [address] Care Team Providers Name Role Phone Vicente Plummer M.D. Primary Care Provider Encounter Details Date Type Department Care Team Description 01/05/2021 Hospital Encounter Department of Verónica Escalante D ysuria Laboratory Medicine in [place], [place] [address] [address] [phone] Social History Tobacco Use Types Packs/Day Years [...] 0 1 (CALCIUM-VITAMIN D ORAL) mouth daily. hydroxychloroquine 2 (two) times a 0 03/02/2018 (PLAQUENIL) 200 mg tablet day. methotrexate 2.5 mg tablet once a week. 0 019 MULTIVITAMIN ORAL Take 1 tablet by 0 01/11/2010 mouth daily. predniSONE (DELTASONE) 1 mg daily. 0 01/25/20 18 tablet cefdinir (OMNICEF) 300 mg Take 1 capsule 20 capsule 0 202001/15/2021 capsule (300 mg total) by mouth every 12 (twelve) hours for 10 days. alendronate (FOSAMAX) 70 mg Take 1 tablet 12 tablet 11 10/1412/10/2021 tablet (70 mg total) by mouth every 7 (seven) days. Take with 8oz of water, on an empty stomach. Remain upright for 30min. carvediloL (COREG) 25 mg TAKE 1 TABLET 180 tablet 0 10/31/19 21 01/14/2021 tablet (25 MG TOTAL) BY MOUTH 2 (TWO) TIMES A DAY WITH MEALS. furosemide (LASIX) 40 mg TAKE ONE-HALF 90 tablet 2 07/02/19 21 01/14/2021 tablet TABLET TWICE DAILY documented as of this encounter Plan of Treatment Not on filedocumented as of this encounter Procedures Procedure Name Priority Date/Time Associated Comments Diagnosis BACTERIAL CULTURE, Routine 01/05/2021 8:20 AM Dysuria Res ults for this AEROBIC + SUSC, URINE CDT proced ure are in the results section. URINALYSIS WITH Routine 01/05/2021 8:20 AM Dysuria Result s for this MICROSCOPIC CDT procedure are i n the results section. documented in this encounter Results (ABNORMAL) Urinalysis with Microscopic: Urine, Straight Catheter (01/05/2021 8:20 AM CDT) P athologist Signature Source Catheter 01/05/2021 FB60 10:13 AM CDT Clarity Cloudy (A) Clear 01/05/2021 FB60 10:15 AM CDT Color Yellow 01/05/2021 FB60 10:15 AM CDT Comment: ----REFERENCE VALUE---- Colorless Yellow Janeth Blood Trace (A) Negative 01/05/2021 10:15 AM CDT FB60 Nitrite Positive (A) Negative 01/05/2021 10:15 AM CDT FB6 0 Leukocyte Esterase Large (A) Negative 01/05/2021 10:15 AM C DT FB60 Protein 30 (A) mg/dL 01/05/2021 10:15 AM CDT FB60 Comment: ----REFERENCE VALUE---- Negative Trace Glucose Negative Negative mg/dL 01/05/2021 10:15 AM CDT F B60 Ketones, QI(U) Negative Negative mg/dL 01/05/2021 10:15 AM CDT FB60 Bilirubin Negative Negative 01/05/2021 10:15 AM CDT FB60 pH 7.5 5.0 - 8.0 01/05/2021 10:15 AM CDT FB60 Specific [place] 1.015 1.001 - 1.035 01/05/2021 10:15 AM CDT FB60 Urobilinogen 0.2 0.2 - 1.0 mg/dL 01/05/2021 10:15 AM C DT FB60 White Blood Cells 31-40 (A) /hpf 01/05/2021 10:15 AM CD T FB60 Comment: ----REFERENCE VALUE---- Males: 0-3 Females: 0-10 Unknown: 0-10 Red Blood Cells 41-50 (A) 0 - 2 /hpf 01/05/2021 10:15 AM CDT FB60 Dysmorphic Red Blood Cells <=25 <=25 % 01/05/2021 10 :15 AM CDT FB60 Bacteria Present (A) None Seen 01/05/2021 10:15 AM CDT FB60 Specimen Anatomical Collection Method Collection Time Receive d Time (Source) Location / / Volume Laterality Urine (Urine, 01/05/2021 8:20 AM 01/06/20 21 Straight CDT 10:05 AM CDT Catheter) Verónica Escalante APRN C.N.P. LAB URINE ORDERABLES Performing Organization Address City/State/ZIP Code Phon e Number [place] [address] [place] [address] [facility] FB60 [place] [address] System [address] (ABNORMAL) Bacterial Culture, Aerobic + Susc, Urine (01/05/2021 8:20 AM CDT) [facility] Method Time Signature Urine Culture with mixed 01/08/2021 MKTO miriam (A) 7:07 AM CDT Urine Culture KLEBSIELLA PNEUMONIAE 01/08/2021 MKT O 10,000-100,000 cfu/mL 7:07 AM CDT (A) Urine Culture ESCHERICHIA COLI 01/08/2021 MKTO 10,000-100,000 cfu/mL 7:07 AM CDT (A) Specimen Anatomical Collection Method Collection Time Receive d Time (Source) Location / / Volume Laterality Urine (Urine, 01/05/2021 8:20 AM 01/06/20 21 2:23 Straight CDT PM CDT Catheter) Comment: Specimen Source Site: Urine Organism Antibiotic Method Susceptibility Klebsiella pneumoniae Ampicillin SUSCEPTIBILITY, >=32 mcg/m L: Resistant REJI (MCG/ML) Klebsiella pneumoniae Ampicillin + Sulbactam SUSCEPTIBILITY, 8 m cg/mL: Susceptible REJI (MCG/ML) Klebsiella pneumoniae Piperacillin + Tazobactam SUSCEPTIBILITY, <=4 mcg/mL: Susceptible REJI (MCG/ML) Klebsiella pneumoniae Cefazolin SUSCEPTIBILITY, <=4 mcg/mL : Susceptible REJI (MCG/ML) Klebsiella pneumoniae Ceftazidime SUSCEPTIBILITY, <=1 mcg/mL : Susceptible REJI (MCG/ML) Klebsiella pneumoniae Ceftriaxone SUSCEPTIBILITY, <=1 mcg/mL : Susceptible REJI (MCG/ML) Klebsiella pneumoniae Cefepime SUSCEPTIBILITY, <=1 mcg/mL : Susceptible REJI (MCG/ML) Klebsiella pneumoniae Aztreonam SUSCEPTIBILITY, <=1 mcg/mL : Susceptible REJI (MCG/ML) Klebsiella pneumoniae Ertapenem SUSCEPTIBILITY, <=0.5 mcg/ mL: REJI (MCG/ML) Susceptible Klebsiella pneumoniae Meropenem SUSCEPTIBILITY, <=0.25 mcg /mL: REJI (MCG/ML) Susceptible Klebsiella pneumoniae Gentamicin SUSCEPTIBILITY, <=1 mcg/mL : Susceptible REJI (MCG/ML) Klebsiella pneumoniae Tobramycin SUSCEPTIBILITY, <=1 mcg/mL : Susceptible REJI (MCG/ML) Klebsiella pneumoniae Levofloxacin SUSCEPTIBILITY, <=0.12 mcg /mL: REJI (MCG/ML) Susceptible Klebsiella pneumoniae Nitrofurantoin SUSCEPTIBILITY, 32 mcg/mL: Susceptible REJI (MCG/ML) Klebsiella pneumoniae Trimethoprim + SUSCEPTIBILITY, <=20 mcg/m L: Sulfamethoxazole REJI (MCG/ML) Susceptible Escherichia coli Ampicillin SUSCEPTIBILITY, <=2 mcg/mL: Rica ceptible REJI (MCG/ML) Escherichia coli Ampicillin + Sulbactam SUSCEPTIBILITY, <=2 mcg/ mL: Susceptible REJI (MCG/ML) Escherichia coli Piperacillin + Tazobactam SUSCEPTIBILITY, <=4 m cg/mL: Susceptible REJI (MCG/ML) Escherichia coli Cefazolin SUSCEPTIBILITY, <=4 mcg/mL: Rica ceptible REJI (MCG/ML) Escherichia coli Ceftazidime SUSCEPTIBILITY, <=1 mcg/mL: Rica ceptible REJI (MCG/ML) Escherichia coli Ceftriaxone SUSCEPTIBILITY, <=1 mcg/mL: Rica ceptible REJI (MCG/ML) Escherichia coli Cefepime SUSCEPTIBILITY, <=1 mcg/mL: Rica ceptible REJI (MCG/ML) Escherichia coli Aztreonam SUSCEPTIBILITY, <=1 mcg/mL: Rica ceptible REJI (MCG/ML) Escherichia coli Ertapenem SUSCEPTIBILITY, <=0.5 mcg/mL: REJI (MCG/ML) Susceptible Escherichia coli Meropenem SUSCEPTIBILITY, <=0.25 mcg/mL: REJI (MCG/ML) Susceptible Escherichia coli Gentamicin SUSCEPTIBILITY, <=1 mcg/mL: Rica ceptible REJI (MCG/ML) Escherichia coli Tobramycin SUSCEPTIBILITY, <=1 mcg/mL: Rica ceptible REJI (MCG/ML) Escherichia coli Levofloxacin SUSCEPTIBILITY, <=0.12 mcg/mL: REJI (MCG/ML) Susceptible Escherichia coli Nitrofurantoin SUSCEPTIBILITY, 32 mcg/mL: Susc eptible REJI (MCG/ML) Escherichia coli Trimethoprim + SUSCEPTIBILITY, <=20 mcg/mL: Sulfamethoxazole REJI (MCG/ML) Susceptible Verónica Escalante APRN CReginaNReginaPRegina LAB MICROBIOLOGY - GENE [facility] ORDERABLES Performing Organization Address City/State/[facility] Code Phon e Number [facility]- [address] [place] [address] [place] [address] System in [address] documented in this encounter Visit Diagnoses Diagnosis Dysuria documented in this encounter Care Teams Cleat Maker Relationship Specialty Start Date End Date Vicente Plummer M.D. PCP - General Family Medicine 12/15/[address] [place] [address] [place] [phone] documented as of this encounter
--- OUTSIDE RECORDS SUMMARY | 2022-02-28 01:36 | XMS_ITS | Encounter Summary ---
:1939 Author Organization [facility] Address [address] [place] [address] Care Team Providers Name Role Phone Vicente Plummer M.D. Primary Care Provider Reason for Referral Outpatient (Routine) - Closed Specialty Diagnoses / Procedures Referred By Contact Refer red To Contact Diagnoses Pain Low Back Chronic Sharif Nunez M.D. [facility] [place] [facility] Procedures DX Lumbar Spine 2-[address], [place] [address] [place] [address] Referral ID Status Reason Start Date Expiration Date Visits Requ ested Visits Authorized [id number] Closed 06/04/2021 06/04/2022 1 1 Reason for Visit Outpatient (Routine) - Closed Specialty Diagnoses / Procedures Referred By Contact Refer red To Contact Diagnoses Pain Low Back Chronic [facility]. [facility] [place] [facility] Procedures DX Lumbar Spine 2-[address], [place] [address] [place] [address] Referral ID Status Reason Start Date Expiration Date Visits Requ ested Visits Authorized [id number] Closed 06/04/2021 06/04/2022 1 1 Encounter Details Date Type Department Care Team Description 06/07/2021 Hospital Encounter Department of Sharif Nunez Low Back Radiology baldo Phipps M.D. [place], [place] [address], [place] [address] [place], [place] [address] [place] [address] [place] [address] [phone] Social History Tobacco Use Types Packs/Day Years [...] Procedure Name Priority Date/Time Associated Comments Diagnosis DX LUMBAR SPINE RAD - Routine 06/07/2021 2:19 Pain Low Back Results for this 2-3 VIEWS (most inpatients PM CDT Chronic procedure a re in and all the results outpatients) section. documented in this encounter Results DX Lumbar Spine 2-3 Views (06/07/2021 2:19 PM CDT) Anatomical Region Laterality Modality Lumbar Spine, Musculoskeletal RST LOS, Neuroradiology N/A Digital Radiography ARZ LOS, Muskuloskeletal FLA LOS Specimen (Source) Anatomical Collection Method Collection Time Re ceived Time Location / / Volume Laterality 06/07/2021 2:58 PM CDT Impressions 06/07/2021 2:59 PM CDT Compared to 12/14/2020. Very severe osteopenia is present. Marked disc space narrowing at the L2-L5 interspaces with hypertroph ic changes and lumbosacral facet arthritis. 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 Stimulator device is present traversing the sacrum at S3 on the right . No significant interval change. Narrative 06/07/2021 2:59 PM CDT EXAM: ??DX LUMBAR SPINE 2-3 VIEWS Procedure Note Lisa Rosenberg M.D. - 06/07/2021For matting of this note might be different from the original. EXAM: DX LUMBAR SPINE 2-3 VIEWS IMPRESSION: Compared to 12/14/2020. Very severe oste openia is present. Marked disc space narrowing at the L2-L5 interspaces with hypertroph ic changes and lumbosacral facet arthritis. 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 Stimulator device is present traversing the sacrum at S3 on the right . No significant interval change. Sharif SHER DIAGNOSTIC IMAGING PROCE SIRI documented in this encounter Visit Diagnoses Diagnosis Pain Low Back Chronic documented in this encounter Care Teams Surveillance Analyst Relationship Specialty Start Date End Date Vicente Plummer M.D. PCP - General Family Medicine 12/15/[address] [place] [phone] documented as of this encounter
--- OUTSIDE RECORDS SUMMARY | 2022-02-28 01:36 | XMS_ITS | Encounter Summary ---
:1939 Author Organization [facility] Address [address] [place] [address] Care Team Providers Name Role Phone Vicente Plummer M.D. Primary Care Provider Encounter Details Date Type Department Care Team Description 12/14/2020 Clinical Communication Department of Noemi Lopez M.D., M.P. H. Medicine in [address] [place] [address] [address] [facility] [address] [place], [place] [phone] [address] (Work) [phone] Social History Tobacco Use Types Packs/Day Years [...] on filedocumented in this encounter Care Teams Photo Retoucher Relationship Specialty Start Date End Date Vicente Plummer M.D. PCP - General Family Medicine 12/15/[address] [place] [phone] documented as of this encounter
--- OUTSIDE RECORDS SUMMARY | 2022-02-28 01:36 | XMS_ITS | Encounter Summary ---
:1939 Author Organization [facility] Address [address] [place] [address] Care Team Providers Name Role Phone Vicente Plummer M.D. Primary Care Provider Encounter Details Date Type Department Care Team Description 09/30/2021 Hospital Encounter Department of Jenny Thapa Hype rtension And Chronic Kidney Disease Stage 3 (HCC); Laboratory Medicine M.DRegina Preoperative Exam; in [facility] [address] Infection Urinary Tract Recurrent [facility], [address] [facility] [address] [place], [place] [phone] [address] (Work) [phone] Social History Tobacco Use Types Packs/Day Years [...] 3 01/16/20 21 tablet TABLET TWICE DAILY HYDROcodone-acetaminophen Take 1 tablet by 0 /0 07/2021 (NORCO) 5-325 mg per tablet mouth every 6 (six) hours as needed for pain (Taking as tolerated.). hydroxychloroquine 2 (two) times a 0 03/02/2018 (PLAQUENIL) 200 mg tablet day. methotrexate 2.5 mg tablet once a week. 0 019 MULTIVITAMIN ORAL Take 1 tablet by 0 01/11/2010 mouth daily. nitrofurantoin monohydrate Take 1 capsule 10 capsule 0 10/04 (MACROBID) 100 mg (100 mg total) capsuleIndications: by mouth 2 (two) Infection Urinary Tract times a day. Recurrent predniSONE (DELTASONE) 1 mg daily. 0 01/25/20 [...] Name Priority Date/Time Associated Diagnosis Comme nts BACTERIAL CULTURE, Routine 09/30/2021 12:55 Preoperative Exam Results for this AEROBIC + SUSC, PM CDT Infection Urinary procedu re are in URINE Tract Recurrent the results section. BASIC METABOLIC Routine 09/30/2021 12:55 Hypertension And Resu lts for this PANEL, S/P PM CDT Chronic Kidney procedure are in Disease Stage 3 (HCC) the re sults section. documented in this encounter Results (ABNORMAL) Bacterial Culture, Aerobic + Susc, Urine (09/30/2021 12:55 PM CDT) [facility] gist Method Time Signature Urine Culture [...] REJI <=20 mcg/mL : Sulfamethoxazole (MCG/ML) Susceptible Jenny Thapa M.D. LAB MICROBIOLOGY - GENERAL O RDERABLES Performing Organization Address City/State/ZIP Code Phon e Number [facility]- [address] [place] [address] [place] [address] System [address] (ABNORMAL) Basic Metabolic Panel (09/30/2021 12:55 PM [...] CDT eGFR-Black/Afri 66 >=60 09/30/2021 [place] can [place] mL/min/BSA 2:21 PM CDT Comment: ----ADDITIONAL INFORMATION---- Estimated GFR calculated using the 2009 CKD_EPI creatinine equation. eGFR Non-Black/ 57 (L) >=60 mL/min/BSA 09/30/2021 2:21 PM CDT [place] [place] Comment: ----ADDITIONAL INFORMATION---- Estimated GFR calculated using [...] 09/30/2021 1:35 Venous) PM CDT PM CDT Jenny Thapa M.D. LAB BLOOD ADD-ON Performing Organization Address City/State/ZIP Code Phon e Number [facility]- [address] [place] [address] [facility] [place] [address] System in [place] [address] documented in this encounter Visit Diagnoses Diagnosis Hypertension And Chronic Kidney Disease Stage 3 (HCC) Preoperative Exam Infection Urinary Tract Recurrent documented in this encounter Care Teams Opener Verifier Packer Customs Relationship Specialty Start Date End Date Vicente Plummer M.D. PCP - General Family Medicine 12/15/[address] [place] [address] [place] [phone] documented as of this encounter
--- OUTSIDE RECORDS SUMMARY | 2022-02-28 01:36 | XMS_ITS | Encounter Summary ---
:1939 Author Organization [facility] Address [address] [place] [address] Care Team Providers Name Role Phone Vicente Plummer M.D. Primary Care Provider Encounter Details Date Type Department Care Team Description 04/16/2021 Hospital Encounter Department of Noemi Lopez [facility] And Laboratory Medicine Estella Lombardi, M.P .H. Chronic Kidney in [place], [address] [place] [address] Disease Stage 3 (HCC) [place], [place] [address] [facility] [address] [place], [place] [phone] [address] (Work) [phone] Social History Tobacco Use Types Packs/Day Years [...] Name Priority Date/Time Associated Diagnosis Comme nts BASIC METABOLIC Routine 04/16/2021 9:37 AM Hypertension And Re sults for this PANEL, S/P RN DOCUMENT IMPROVEMENT SPECIALIST Chronic Kidney procedure are in Disease Stage 3 (HCC) the re sults section. documented in this encounter Results (ABNORMAL) Basic Metabolic Panel (04/16/2021 9:37 AM RN DOCUMENT IMPROVEMENT SPECIALIST) Analysis Performed At Patho logist Time Signature Potassium, P 4.4 3.6 - 5.2 04/16/2021 [place] mmol/L 11:20 AM RN DOCUMENT IMPROVEMENT SPECIALIST Sodium, P 138 135 - 145 04/16/2021 [place] mmol/L 11:20 AM RN DOCUMENT IMPROVEMENT SPECIALIST Chloride, P 101 98 - 107 04/16/2021 [place] mmol/L 11:20 AM RN DOCUMENT IMPROVEMENT SPECIALIST Bicarbonate, P 27 22 - 29 04/16/2021 [place] mmol/L 11:20 AM RN DOCUMENT IMPROVEMENT SPECIALIST Anion Gap, P 10 7 - 15 04/16/2021 [place] 11:20 AM RN DOCUMENT IMPROVEMENT SPECIALIST BUN (Blood Urea 29 (H) 6 - 21 04/16/2021 [place] Nitrogen), P mg/dL 11:20 AM RN DOCUMENT IMPROVEMENT SPECIALIST Creatinine 1.17 (H) 0.59 - 04/16/2021 [place] 1.04 mg/dL 11:20 AM RN DOCUMENT IMPROVEMENT SPECIALIST eGFR-Black/Afri 50 (L) >=60 04/16/2021 OW[place] can [place] Citizen mL/min/BSA 11:20 AM RN DOCUMENT IMPROVEMENT SPECIALIST Comment: ----ADDITIONAL INFORMATION---- Estimated GFR calculated using the 2009 CKD_EPI creatinine equation. eGFR Non-Black/ 44 (L) >=60 mL/min/BSA 04/16/2021 11:20 AM RN DOCUMENT IMPROVEMENT SPECIALIST [place] Citizen Comment: ----ADDITIONAL INFORMATION---- Estimated GFR calculated using the 2009 CKD_EPI creatinine equation. Calcium, Total, P 8.9 8.8 - 10.2 mg/dL 04/16/2021 11:2 0 AM RN DOCUMENT IMPROVEMENT SPECIALIST [place] Glucose, P 113 70 - 140 mg/dL 04/16/2021 11:20 AM RN DOCUMENT IMPROVEMENT SPECIALIST [place] Specimen Anatomical Collection Method Collection Time Receive d Time (Source) Location / / Volume Laterality Blood (Blood, 04/16/2021 9:37 AM 04/16/19 22 Venous) RN DOCUMENT IMPROVEMENT SPECIALIST 10:34 AM RN DOCUMENT IMPROVEMENT SPECIALIST Noemi Lopez M.D., M.P.H. LAB BLOOD ADD-ON Performing Organization Address City/State/ZIP Code Phon e Number [facility]- [address] [place] [address] [facility] [place] [address] System in [place] [address] documented in this encounter Visit Diagnoses Diagnosis Hypertension And Chronic Kidney Disease Stage 3 (HCC) documented in this encounter Care Teams Solar Installation Manager Relationship Specialty Start Date End Date Vicente Plummer M.D. PCP - General Family Medicine 12/15/[address] [place] [address] [place] [address] documented as of this encounter
--- OUTSIDE RECORDS SUMMARY | 2022-02-28 01:36 | XMS_ITS | Encounter Summary ---
:1939 Author Organization [facility] Address [address] [place] [address] Care Team Providers Name Role Phone Vicente Plummer M.D. Primary Care Provider Encounter Details Date Type Department Care Team Description 09/01/2021 Clinical Communication Department of Urology Ashely Escalante in [place] APRN, C.N.PRegina [place] [address] [place] [address] Social History Tobacco Use Types Packs/Day Years Used Date Smoking Tobacco: Never Smokeless Tobacco: Never Alcohol Use Standard Drinks/Week Comments No 0 (1 standard drink = 0.6 oz pure alcoho l) Sex Assigned at Date Recorded Female 09/25/2017 1:20 PM CDT documented as of this encounter Miscellaneous Notes Telephone Encounter - Yuliana Basilio R.N. - 09/03/2021 9:12 AM CDT Jazmin notified of response message,verbalized understanding. Will call back if any further questions. Telephone Encounter - Yuliana Basilio R.N. - 09/03/2021 9:02 AM CDT Left message for Jazmin to call back. Telephone Encounter - Verónica Escalante APRN, C.N.P. - 09/02/2021 4:25 PM CDT Evaluate and treat hip and back pain, increase strength and mobility. Telephone Encounter - Lizet Chavez - 09/01/2021 12:11 PM CDT Reason for Communication: Spoke with Jazmin Toure, physical therapist. She met with the patient yesterday for evaluation and is wondering what the expectations are for physical therapy are. Requesting a call back. Current - Request they page Jazmin Toure Can Nursing/Provider leave a detailed message?: yes Did the patient refuse triage through Nurse line? (for symptom based concerns): na Action Needed: Call back Name of Medication (if relevant): na Please send all scheduling replies to scheduling pool. documented in this encounter Plan of Treatment Not on filedocumented as of this encounter Visit Diagnoses Not on filedocumented in this encounter Care Teams Cross Country Coach Relationship Specialty Start Date End Date Vicente Plummer M.D. PCP - General Family Medicine 12/15/[address] [place] [phone] documented as of this encounter
--- OUTSIDE RECORDS SUMMARY | 2022-02-28 01:36 | XMS_ITS | Encounter Summary ---
:1939 Author Organization [facility] Address [address] [place] [address] Care Team Providers Name Role Phone Vicente Plummer M.D. Primary Care Provider Encounter Details Date Type Department Care Team Description 09/30/2021 Clinical Communication Department of Rusty Alaniz, Medicine, [facility], in [address], [address] [facility] [address] [place], [place] [phone] (Work) [phone] Social History Tobacco Use Types Packs/Day Years Used Date Smoking Tobacco: Never Smokeless Tobacco: Never Alcohol Use Standard Drinks/Week Comments No 0 (1 standard drink = 0.6 oz pure alcoho l) Sex Assigned at Date Recorded Female 09/25/2017 1:20 PM CDT documented as of this encounter Miscellaneous Notes Telephone Encounter - Jenny Thapa M.D. - 09/30/2021 9:[address] Plummer, I saw this patient for a preop visit today. She was originally scheduled for left shoulder surgery in [place] early next week. She did not know any details of the surgery or who was doing the surgery. However, during her preop work-up, she was found to be hyponatremic with a sodium level of 129. Her prior sodium level in March of this year was 138 (normal). She is completely asymptomatic except for her left shoulder and wrist pain. Since [facility] I was able to call her up around 9PM today. She indicated that her orthopedic surgeon had informed her today that she will not be undergoing surgery next week. I am contacting you regarding her hyponatremia and recommendations for treatment since it is unclear how long she has been hyponatremic. I am not sure if you are located here in [place] or in [place]. I will have one of the nurses tryto contact you by phone in the AM. Thanks. Electronically signed by: Jenny Thapa M.D. 09/30/21 9:41 PM CDT documented in this encounter Plan of Treatment Not on filedocumented as of this encounter Visit Diagnoses Not on filedocumented in this encounter Care Teams Mechanical Planner Relationship Specialty Start Date End Date Vicente Plummer M.D. PCP - General Family Medicine 12/15/[address] [place] [phone] documented as of this encounter
--- OUTSIDE RECORDS SUMMARY | 2022-02-28 01:36 | XMS_ITS | Encounter Summary ---
:1939 Author Organization [facility] Address [address] [place] [address] Care Team Providers Name Role Phone Vicente Pulmmer M.D. Primary Care Provider Reason for Visit Reason Comments Communication Encounter Details Date Type Department Care Team Description 08/31/2021 Clinical Communication Department of Urology Priti Cintron Communication in [facility] michelle Jain, R.N. [address] [place] [phone] Social History Tobacco Use Types Packs/Day Years Used Date Smoking Tobacco: Never Smokeless Tobacco: Never Alcohol Use Standard Drinks/Week Comments No 0 (1 standard drink = 0.6 oz pure alcoho l) Sex Assigned at Date Recorded Female 09/25/2017 1:20 PM CDT documented as of this encounter Miscellaneous Notes Telephone Encounter - Priti Cintron RPietro - 08/31/2021 12:44 PM CDT Patient called urology to inquire about cranberry pills or D mannose tablets in addition to her cranberry juice. Per therapist suggested the mentioned tablets and wanted to check with Provider Kaur. Provider Ava states either is ok, patient aware and no further needs at this time. documented in this encounter Plan of Treatment Not on filedocumented as of this encounter Visit Diagnoses Not on filedocumented in this encounter Care Teams Mine Manager Relationship Specialty Start Date End Date Vicente Plummer M.D. PCP - General Family Medicine 12/15/[address] [place] [address] [place] [phone] documented as of this encounter
--- OUTSIDE RECORDS SUMMARY | 2022-02-28 01:36 | XMS_ITS | Encounter Summary ---
:1939 Author Organization [facility] Address [address] [place] [address] Care Team Providers Name Role Phone Vicente Plummer M.D. Primary Care Provider Encounter Details Date Type Department Care Team Description 01/05/2021 Orders Only Department of Urology Verónica Escalante, Dysuria (Primary Dx) in [facility] CANCER REGISTRY MANAGER, C.N.P. [address] [place] [phone] (Wo rk) Social History Tobacco Use Types Packs/Day Years Used Date Smoking Tobacco: Never Smokeless Tobacco: Never Alcohol Use Standard Drinks/Week Comments No 0 (1 standard drink = 0.6 oz pure alcoho l) Sex Assigned at Date Recorded Female 09/25/2017 1:20 PM CDT documented as of this encounter Plan of Treatment Not on filedocumented as of this encounter Results (ABNORMAL) Urinalysis with Microscopic: [...] 8.0 01/05/2021 10:15 AM CDT FB60 Specific [place] 1.015 1.001 - 1.035 01/05/2021 10:15 AM [...] CDT 10:05 AM CDT Catheter) Verónica Escalante APRN, C.N.P. LAB URINE ORDERABLES Performing Organization Address City/State/ZIP Code Phon e Number [facility]- [address] [place] [address] [facility] [address] [place] [address] System in [place] [address] (ABNORMAL) Bacterial Culture, Aerobic + Susc, Urine (01/05/2021 8:20 AM CDT) [facility] gist Method Time Signature Urine Culture with [...] Klebsiella pneumoniae Levofloxacin SUSCEPTIBILITY, <=0.12 mcg /mL: RJEI (MCG/ML) Susceptible Klebsiella pneumoniae Nitrofurantoin SUSCEPTIBILITY, 32 [...] SUSCEPTIBILITY, <=20 mcg/mL: Sulfamethoxazole REJI (MCG/ML) Susceptible Bailee Brito APRNNSena LAB MICROBIOLOGY - GENE [facility] ORDERABLES Performing Organization Address City/[facility]/ZIP Code Phon e Number [facility]- [address] [place] [address] [place] [address] [address] documented in this encounter Visit Diagnoses Diagnosis Dysuria - Primary documented in this encounter Care Teams Pharmacy Operations Manager Relationship Specialty Start Date End Date Vicente Plummer M.D. PCP - General Family Medicine 12/15/[address] [place] [address] [place] [phone] documented as of this encounter
--- OUTSIDE RECORDS SUMMARY | 2022-02-28 01:36 | XMS_ITS | Encounter Summary ---
:1939 Author Organization [facility] Address [address] [place] [address] Care Team Providers Name Role Phone Vicente lPummer M.D. Primary Care Provider Encounter Details Date Type Department Care Team Description 03/22/2021 Hospital Encounter Department of Verónica Escalante Urinary; Radiology in A, COMPUTER VIDEO GAME DESIGNER, C.N.P. Infection Urinary Tract Recurrent [place], [address] [place], [place] [address] [facility] [address] [place], [place] [phone] (Work) [phone] Social History Tobacco Use Types Packs/Day Years [...] Name Priority Date/Time Associated Comments Diagnosis DX ABDOMEN 1 VIEW RAD - Routine 03/22/2021 2:10 Retention Urin gutierrez Results for this (most inpatients PM PRICING CLERK Infection Urinary proced ure are in and all Tract Recurrent the results outpatients) section. documented in this encounter Results DX Abdomen 1 View (03/22/2021 2:10 PM PRICING CLERK) Anatomical Region Laterality Modality Abdomen, Abdominal RST LOS, Abdominal ARZ LOS, N/A Digital Radiography Abdominal FLA LOS Specimen (Source) Anatomical Collection Method Collection Time Re ceived Time Location / / Volume Laterality 03/22/2021 3:57 PM PRICING CLERK Impressions 03/22/2021 4:03 PM PRICING CLERK 1. Implanted electronic generator device projected over the right iliac wing with the lead tip projected over the low er right sacrum. 2. 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 Narrative 03/22/2021 4:03 PM PRICING CLERK EXAM: DX ABDOMEN 1 VIEW COMPARISON: Lumbar spine 12/14/2020 FINDINGS: There is an implanted electron ic generator device projected over the right iliac wing with the lead tip proje cted over the lower right sacrum. There is some sclerosis about the iliac side o f both sacroiliac joints. 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 The vis ualized skeleton is demineralized. Procedure Note Mario Silverman M.D. - 03/22/2021Format ting of this note might be different from the original. EXAM: DX ABDOMEN 1 VIEW COMPARISON: Lumbar spine 12/14/2020 FINDINGS: There is an implanted electron ic generator device projected over the right iliac wing with the lead tip proje cted over the lower right sacrum. There is some sclerosis about the iliac side o f both sacroiliac joints. 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 The vis ualized skeleton is demineralized. IMPRESSION: 1. Implanted electronic generator device projected over the right iliac wing with the lead tip projected over the low er right sacrum. 2. 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 Verónica Escalante APRN C.N.PRegina IMG DIAGNOSTIC IMAGING PROCEDURES documented in this encounter Visit Diagnoses Diagnosis Retention Urinary Infection Urinary Tract Recurrent documented in this encounter Care Teams Ward Assistant Relationship Specialty Start Date End Date Vicente Plummer M.D. PCP - General Family Medicine 12/15/[address] [place] [phone] documented as of this encounter
--- OUTSIDE RECORDS SUMMARY | 2022-02-28 01:36 | XMS_ITS | Encounter Summary ---
:1939 Author Organization [facility] Address [address] [place] [address] Care Team Providers Name Role Phone Vicente Plummer M.D. Primary Care Provider Encounter Details Date Type Department Care Team Description 12/31/2020 Clinical Communication Department of [facility] Amilcar Plummer MedicineShyla M.D. [facility], in [address] [address] [place], [place] [phone] (Work) [phone] Social History Tobacco Use Types Packs/Day Years [...] on filedocumented in this encounter Care Teams Resource Teacher Relationship Specialty Start Date End Date Vicente Plummer M.D. PCP - General Family Medicine 12/15/[address] [place] [phone] documented as of this encounter
--- OUTSIDE RECORDS SUMMARY | 2022-02-28 01:36 | XMS_ITS | Encounter Summary ---
:1939 Author Organization [facility] Address [address] [place] [address] Care Team Providers Name Role Phone Vicente Plummer M.D. Primary Care Provider Encounter Details Date Type Department Care Team Description 09/21/2021 Clinical Communication Department of Urology Ashely Escalante in Ivan Baldwin APRN, C.N.P. [place] [address] [place] [phone] Social History Tobacco Use Types Packs/Day Years Used Date Smoking Tobacco: Never Smokeless Tobacco: Never Alcohol Use Standard Drinks/Week Comments No 0 (1 standard drink = 0.6 oz pure alcoho l) Sex Assigned at Date Recorded Female 09/25/2017 1:20 PM CDT documented as of this encounter Miscellaneous Notes Telephone Encounter - Yuliana Basilio R.N. - 09/21/2021 3:05 PM CDT Patient notified of response message,verbalized understanding. Telephone Encounter - Verónica Escalante APRN, C.N.P. - 09/21/2021 2:55 PM CDT Have her complete the antibiotics as prescribed. I am not sure why she is having such terrible flankpain. She may need to see primary care or be seen in same day care or emergency room if the pain is severe. Telephone Encounter - Yuliana Basilio R.N. - 09/21/2021 1:06 PM CDT Patient called Uro nurse and stated that she is having right sided back pain. The pain is worse whenshe gets up from laying down. She stated that she tried to call her physical therapist and was told that they couldn't help her. She also didn't realize that her antibiotics were supposed to be taken twice daily, so she was only taking one per day. Patient stated that she has four left. Also she can not tell if she is having any urinary symptoms. Please advise. documented in this encounter Plan of Treatment Not on filedocumented as of this encounter Visit Diagnoses Not on filedocumented in this encounter Care Teams Switchboard Operator Helper Relationship Specialty Start Date End Date Vicente Plummer M.D. PCP - General Family Medicine 12/15/[address] [place] [address] [place] [phone] documented as of this encounter
--- OUTSIDE RECORDS SUMMARY | 2022-02-28 01:36 | XMS_ITS | Encounter Summary ---
:1939 Author Organization [facility] Address [address] [place] [address] Care Team Providers Name Role Phone Vicente Plummer M.D. Primary Care Provider Reason for Visit Reason Comments Communication Encounter Details Date Type Department Care Team Description 08/09/2021 Clinical Communication Department of Urology Priti Cintron Communication in [facility] michelle C, R.N. [address] [place] [phone] Social History Tobacco Use Types Packs/Day Years Used Date Smoking Tobacco: Never Smokeless Tobacco: Never Alcohol Use Standard Drinks/Week Comments No 0 (1 standard drink = 0.6 oz pure alcoho l) Sex Assigned at Date Recorded Female 09/25/2017 1:20 PM CDT documented as of this encounter Miscellaneous Notes Telephone Encounter - Priti Cintron RReginaN. - 08/09/2021 1:35 PM CDT Patient encouraged to turn interstim to off and is scheduled with Provider Ava tomorrow, 08/10/21.Patient denies infection concerns. Telephone Encounter - Verónica Escalante APRN, C.N.P. - 08/09/2021 10:16 AM CDT First have her try to turn it off. If she isn't having any signs of infection, have her follow-up here in clinic with me this week if possible. Telephone Encounter - Priti Cintron R.N. - 08/09/2021 9:31 AM CDT Patient was called back, it's on, unsure what level, and has not trialed it off, I just can't do it; I don't know how to work it like her Verónica adjusts it and I just leave it. Telephone Encounter - Verónica Escalante APRN, C.N.P. - 08/09/2021 9:18 AM CDT Does she have it on or off? Telephone Encounter - Priti Cintron R.N. - 08/09/2021 8:48 AM CDT Patient called urology, hurt so bad where the stimulator is went to therapy that helped a little bit but it's back, I can't stand it pain and when it gets touched, I about go through the ceiling.Denies any other complains such as UTI, fever, site skin discoloration, numbness or tingling. I just don't know what to do, maybe it should come out; I get in bed and can hardly get out. Will forward to Provider Ava to review and contact patient back. documented in this encounter Plan of Treatment Not on filedocumented as of this encounter Visit Diagnoses Not on filedocumented in this encounter Care Teams Supply Chain Vice President Relationship Specialty Start Date End Date Vicente Plummer M.D. PCP - General Family Medicine 12/15/[address] [place] [address] [place], [place] [phone] documented as of this encounter
--- OUTSIDE RECORDS SUMMARY | 2022-02-28 01:36 | XMS_ITS | Encounter Summary ---
:1939 Author Organization [facility] Address [address] [place] [address] Care Team Providers Name Role Phone Vicente Plummer M.D. Primary Care Provider Reason for Referral Outpatient (Routine) - Closed Specialty Diagnoses / Procedures Referred By Contact Refer red To Contact Diagnoses Dyspnea On Exertion Noemi Lopez M.D., [facility] Procedures ECG 12 Lead M.[facility] [address] [place] [address] [phone] Referral ID Status Reason Start Date Expiration Date Visits Requ ested Visits Authorized [id number] Closed 12/14/2020 12/14/2021 1 1 Reason for Visit Outpatient (Routine) - Closed Specialty Diagnoses / Procedures Referred By Contact Refer red To Contact Diagnoses Dyspnea On Exertion Noemi Lopez M.D., [facility] Procedures ECG 12 Lead M[facility] [address] [place] [phone] Referral ID Status Reason Start Date Expiration Date Visits Requ ested Visits Authorized [id number] Closed 12/14/2020 12/14/2021 1 1 Encounter Details Date Type Department Care Team Description 12/30/2020 Hospital Encounter Department of Noemi Lopez wayne On Exertion Laboratory Medicine Estella Lombardi, M.P .H. in [address] [address] [place], [place] [phone] (Work) [phone] Social History Tobacco Use Types Packs/Day Years [...] Name Priority Date/Time Associated Diagnosis Comme nts ECG Routine 12/30/2020 9:31 AM Dyspnea On Exertion Re sults for this CDT procedure are i n the results section . documented in this encounter Results ECG 12 Lead (12/30/2020 9:31 AM CDT) P athologist Signature Ventricular Rate 59 BPM MUSE ECG/Min OR Interval 230 ms MUSE QRSD Interval 102 ms MUSE QT Interval 468 ms MUSE QTC Interval 463 ms MUSE P Ophelia 82 degrees MUSE R Ophelia 54 degrees MUSE T Wave Ophelia 30 degrees MUSE Specimen Anatomical Collection Method Collection Time Receive d Time (Source) Location / / Volume Laterality 12/30/2020 9:31 AM 9:36 CDT AM CDT Impressions MUSE - 12/30/2020 9:36 AM CDT Sinus bradycardia with 1st degree A-V block Otherwise normal ECG When compared with ECG of 29-AUG-2018 13 :13, No significant change was found Reviewed by OLI Garcia Narrative This result has an attachment that is no t available. Procedure Note Matt Jacobson M.D. - 12/30/2020Formatt ing of this note might be different from the original. IMPRESSION: Sinus bradycardia with 1st degree A-V bl ock Otherwise normal ECG When compared with ECG of 29-AUG-2018 13 :13, No significant change was found Reviewed by OLI Garcia Noemi Lopez M.D., M.P.H. ECG ORDERABLES Performing Organization Address City/State/ZIP Code Phon e Number MUSE MUSE NA documented in this encounter Visit Diagnoses Diagnosis Dyspnea On Exertion documented in this encounter Care Teams Loan And Credit Manager Relationship Specialty Start Date End Date Vicente Plummer M.D. PCP - General Family Medicine 12/15/[address] [place] [address] [place] [phone] documented as of this encounter
--- OUTSIDE RECORDS SUMMARY | 2022-02-28 01:36 | XMS_ITS | Encounter Summary ---
:1939 Author Organization [facility] Address [address] [place] [address] Care Team Providers Name Role Phone Vicente Plummer M.D. Primary Care Provider Encounter Details Date Type Department Care Team Description 01/05/2021 Orders Only [place] SUPERINTENDENT CONCRETE MIXING PLANT, C.N.P. [address] [place] [phone] [place] [phone] (Wo rk) Social History Tobacco Use Types [...] on filedocumented in this encounter Care Teams Life Tester [employer] Relationship Specialty Start Date End Date Vicente Plummer M.D. PCP - General Family Medicine 12/15/[address] [place] [phone] documented as of this encounter
--- OUTSIDE RECORDS SUMMARY | 2022-02-28 01:36 | XMS_ITS | Clinical Summary ---
:1940 Author Organization [facility] Address [address] [place] [address] Care Team Providers Name Role Phone Vicente Plummer M.D. Primary Care Provider Source Comments Patient records contain information from all sites at [facility]. For routine questions regarding patient records, call [phone] during business hours, M-F 8:00 AM - 5:00 PM Central Time. Record requests for emergency care only can be directed to [phone] at any time.[facility] Allergies Active Allergy Reactions Severity Noted Date Comments Clonidine Hallucinations 05/03/2018 Leflunomide Hallucinations 12/21/2017 Lisinopril Other (see comments) 05/23/2018 Increas ed creatinine Methotrexate Other (see comments) 12/21/2017 Did not feel well Oxycodone Other (see comments) 08/11/2011 No reac tion listed in [facility] Sulfa (Sulfonamide Other (see comments) 12/03/2015 N o reaction listed in Antibiotics) [facility] Medications Medication Sig Dispensed Refills Start Date End Date Status CALCIUM CARB/VIT Take 1 tablet 0 01/11/2010 Active D3/MINERALS by mouth (CALCIUM-VITAMIN D ORAL) daily. MULTIVITAMIN ORAL Take 1 tablet 0 01/11/2010 Active by mouth daily. predniSONE (DELTASONE) 1 daily. 0 01/24/2018 Active mg tablet hydroxychloroquine 2 (two) times 0 03/02/2018 Active (PLAQUENIL) 200 mg tablet a day. aspirin [address] tablet Take 81 mg by 0 Active mouth daily. methotrexate 2.5 mg once a week. 0 02/16/2019 Active tablet furosemide (LASIX) 40 mg TAKE ONE-HALF 90 tablet 3 01/15/2021 Active tablet TABLET TWICE DAILY carvediloL (COREG) 25 mg TAKE 1 180 tablet 3 01/17/2021 Active tablet TABLET(25 MG TOTAL) BY MOUTH 2(TWO) TIMES A DAY WITH MEALS. HYDROcodone-acetaminophen Take 1 tablet 0 09/28/2021 Active (NORCO) 5-325 mg per by mouth every tablet 6 (six) hours as needed for pain (Taking as tolerated.). nitrofurantoin Take 1 capsule 10 capsule 0 10/04/2021 Active monohydrate (MACROBID) (100 mg total) 100 mg by mouth 2 capsuleIndications: (two) times a Infection Urinary Tract day. Recurrent alendronate (FOSAMAX) 70 TAKE ONE 12 tablet 11 12/10/2021 Active mg tablet TABLET BY MOUTH EVERY 7 DAYS TAKE WITH 8OZ OF WATER ON AN. EMPTY STOMACH REMAIN UPRIGHT FOR 30MIN Active Problems Patient Care Coordination Note Formatting of this note might be differe nt from the original. Spouse: cirilo Children:2, 2 grandkids Work: no DIONNE on file for: cirilo Cell #: [phone] Problem Noted Date Presence Of Neurostimulator 08/25/2021 PreDiabetes 08/27/2020 Primary Osteoarthritis Multiple Sites 10/26/2018 Edema Leg 07/25/2018 Overview: She has intermittent chronic right leg s welling (knee replacement), which is managed with furosemide. Thrombosis Deep Vein Personal History 06/29/2018 Loss Hearing Sensorineural Bilateral 06/29/2018 Overview: She has hearing aids ([facility] [place]). Infection Urinary Tract Recurrent 02/07/2018 Last Assessment & Plan: Formatting of th is note might be different from the original. Last UTI months ago. If she starts to robles ve frequent UTIs again (less than every 6 months), then I recommend starting vaginal estrogen. Obesity Body Mass Index 30-39.9 Adult 12/21/2017 Arthritis Rheumatoid 08/17/2017 Overview: RA Sees Dr. Nunez at [facility] [phone] fax [phone] Last Assessment & Plan: I went over the results of her bone dens ity test and LS x ray done 09/30/20 She was glad to hear she did not have os teoporosis. I will forward the results per fax to Dr Regina Nunez Pain Knee Left 02/23/2017 Overview: She has intermittent left knee pain but defers replacement for now. She is s/p right knee replacement. Hyperlipidemia Mixed 12/26/2016 Overview: Hyperlipidemia Mixed Retention Urinary 02/01/2016 Overview: She has a medical need to catheterize 6x /day to prevent UTIs, to prevent kidney failure related to urinary retention, and to prevent discomfort related to urinary retention. Last Assessment & Plan: She is here today because [facility] will not supply her with 6 catheters /day. They told her that medicare would only cover 4 catheters/day. She only has 10 catheters left and needs a supply. I contacted Verónica Escalante MOTORCYCLE TECHNICIAN [facility]. She sees her on a routine basis. She will provide Vanessa with enough catheters to get by until her order from [employer] is delivered. She will drive to [place] to turkey picker th e catheters. I had sent Dr. Lopez's order and visit note to [facility] in [place]. Renay Renee will process the order and have the catheters sent to her home. She felt that they would arrive by next Monday. Vanessa had been up since 5:00 very conc erned that she would not be able to get the catheters. She voiced being grateful for the care today. Hypertension And Chronic Kidney Disease Stage 3 2009 Overview: She has had increased Cr with lisinopril /ARBs and hallucinations once with clonidine. In 2018, she saw Dr. Butler for high blood pressures. At that time, carvedilol was started with the intention to s top diltiazem. However, she continues on both medications. Furosemide was increase to bid at that time for blood pressure benefit. She had been on it once daily for leg edema. Currently blood pressures are optimized 120s/60s on: Carvedilol 25mg bid Furosemide 20mg bid Diltiazem 240mg daily I don't have current vital signs, but we should start reducing the dilitazem. If additional blood pressure control is needed, we could add amlodipine. I don't see that this has ever been trialed. With t he CKD, I would favor trying a low dose UGILLERMO/ARB if she is willing. Resolved Problems Problem Noted Date Resolved Date Other Specified Hearing Loss Bilateral 10/26/2018 0 08/27/2020 Care Home Anticoagulant Treatment [Z79.01] 03/30/2018 08/27/2020 Monitoring For Therapeutic Drug Therapy [Z51.81] 03/30/2018 08/27/2020 Thrombosis Deep Vein Acute Lower Leg Left 03/29/2018 07/05/2018 Arthroplasty Total Knee Replacement Status Post Left 018 06/29/2018 Neurogenic Bladder 12/21/2017 05/02/2018 Gastroesophageal Reflux Disease 12/21/2017 05/02/19 19 Presence Of Right Artificial Knee Joint 07/12/2017 08/27/2020 Epicondylitis Medial Right 04/04/2017 08/27/2020 Diabetes Mellitus Type 2 04/22/2015 08/27/2020 Overview: Diabetes Mellitus Type 2 Polymyalgia Rheumatica 03/18/2015 08/17/2017 Overview: Polymyalgia Rheumatica (PMR) Primary Osteoarthritis Knee Right 12/02/20132020 Varicose Vein Lower Extremity Bilateral 08/13/2013 08/08/2018 Fatigue 08/07/2013 05/02/2018 Encounters Date Type Specialty Care Team Description 01/25/2022 Orders Only Vicente Plummer M.D. 12/09/2021 Refill Community Internal Noemi Lopez Me d Refill Medicine MAbdoul, M.P.H. from Last 3 Months Immunizations Name Administration Dates Next Due DT, Pediatric 07/09/2005 Influenza, Quadrivalent, Adjuvanted, 01/02/2020 Preservative Free Influenza, Seasonal, Injectable 01/13/2014, 01/22/2013, 12/26 Influenza, Unspecified 12/24/2015, 01/19/2015 PCV13 01/19/2015 PPSV23 07/09/2005 SARS-COV-2 (COVID-19) - MODERNA 08/03/2020, 07/06/2020 Tdap 02/03/2016 influenza high dose (65 years or older) 01/21/2019, 01/12/20 18, 02/06/2017 (PF) Family History Medical History Relation Name Comments Coronary artery disease Brother Diabetes Brother Heart attack Brother In his 40s Hypertension Brother Cataracts Father Rheum arthritis Mother Stroke Son 1 Due to blood james t. No Known Problems Son 2 Relation Name Status Comments Brother Father Mother Son 1 Son 2 Social History Tobacco Use Types Packs/Day Years Used Date Smoking Tobacco: Never Smokeless Tobacco: Never Tobacco Cessation: Counseling Given: Yes Alcohol Use Standard Drinks/Week Comments No 0 (1 standard drink = 0.6 oz pure alcoho l) Sex Assigned at Date Recorded Female 09/25/2017 1:20 PM CDT Last Filed Vital Signs Vital Sign Reading Time Taken Comments Blood Pressure 152/68 09/30/2021 10:49 AM CDT Pulse 56 09/30/2021 10:49 AM CDT Temperature 36 ??C (96.8 ??F) 09/30/2021 10:49 AM CDT Respiratory Rate 16 12/30/2020 10:03 AM CDT Oxygen Saturation 97% 03/29/2021 10:17 AM CONDUIT CLEANER RA Inhaled Oxygen Concentration - - Weight 65.8 kg (145 lb) 09/30/2021 10:49 AM CDT Height 157 cm (5' 1.81) 09/30/2021 10:49 AM CDT Body Mass Index 26.68 09/30/2021 10:49 AM CDT Plan of Treatment Health Maintenance Due Date Last Done Comments Zoster Vaccines (1 of 2) 12/04/1959 Hepatitis B Vaccines (1 of 1999 3 - Risk 3-dose series) Depression Screening 03/27/2021 (Annual PHQ-2) COVID-19 Vaccine (5 - 10/20/2021 08/25/2021, 02/23/2021, Booster for Moderna series) 08/03/2020, Addition al history exists Influenza Vaccine (#1) 2021 01/26/2021, 01/02/2020, 01/02/2020, Additional history exists Office Visit for Blood 12/31/2021 09/30/2021 Pressure Check / Re-check Creatinine Level 09/30/2022 09/30/2021, 04/16/2021, 08/26/2020, Additional history exists Fasting Glucose for 09/30/2022 09/30/2021, 04/16/2021, Diabetes Screening 08/26/2020, Additional history exists Sodium Level 09/30/2022 09/30/2021, 04/16/2021, 08/26/2020, Additional history exists Visit: Chronic Disease, age 0709/30/2022 09/30/2021 18+ Potassium Level 12/02/2022 12/02/2021, 10/21/2021, 09/30/2021, Additional history exists DTaP,Tdap,and Td Vaccines 02/02/2026 02/03/2016, 07/09/2005 (3 - Td or Tdap) Pneumococcal vaccine (65+ Completed 01/19/2015, 07/09/2005 years) Fall Risk Screen (Annual) Completed 03/29/2021 HPV Vaccines Aged Out No longer eligib le based on patient 's age to complete this topic Medical Devices Implanted Type Area Feed Research Aide Device Shelf Model / Identifier Expiration Serial / Lot Date Knee Implant-07/12/2017 Knee Right: Dylan TRIATHLON / Implanted: 07/12/2017 by Ignacio Mead M.D. (Quantity not o n file) Implant Knee / Insurance Payer Benefit Plan Subscriber ID Effective Phone Address Typ e / Group Dates MEDICARE MEDICARE A [id number] 2011-Pre [address] [place] [address] BLUE CROSS BCBS TELIDA [id number] 2017-Pres [phone] PO KATHARINA X Cost Share BLUE SHIELD BLUE COST ent [phone] [place] [id number] (Home) N [phone] [place] (Work) [id number] Advance Directives For more information, please contact: [phone] Documents on File Type Date Recorded Patient Master Baker Explanati on Advance Directives 01/16/2017 12:00 AM Legacy do cument. See document viewer. Advance Directives 01/16/2017 12:00 AM Legacy do cument. See document viewer. Advance Directives 05/04/2016 12:00 AM Legacy docu ment. See document viewer. Care Teams Curtain Framer Relationship Specialty Start Date End Date Vicente Plummer M.D. PCP - General Family Medicine 12/15/[address] [place] [address] [place] [phone]
--- OUTSIDE RECORDS SUMMARY | 2022-02-28 01:36 | XMS_ITS | Encounter Summary ---
:1940 Author Organization [facility] Address [address] [place] [address] Care Team Providers Name Role Phone Vicente Plummer M.D. Primary Care Provider Reason for Referral Physical Therapy (Routine) - Authorized Specialty Diagnoses / Procedures Referred By Contact Carlos quinn To Contact Physical Therapy Diagnoses Infection Urinary Tract [facility] [address] [place], [place] [phone] Phone: [phone] Referral ID Status Reason Start Expiration Visits Visits Date Date Requested Authorized [id number] Authorized Continuity of 08/10/2021 08/10/2022 99 99 Care Reason for Visit Reason Comments Other Appointment Request (Routine) - Closed Specialty Diagnoses / Procedures Referred By Contact Carlos quinn To Contact Urology Referral ID Status Reason Start Date Expiration Date Visits Requ ested Visits Authorized [id number] Closed 08/09/2021 08/09/2022 1 Encounter Details Date Type Department Care Team Description 08/10/2021 Office Visit Department of Verónica Escalante Infection Urinary Tract Recurrent (Primary Dx); Urology in [place] APRN, C. N.P. Presence Of Neurostimulator [place] [address] [place] [phone] Social History Tobacco Use Types Packs/Day Years Used Date Smoking Tobacco: Never Smokeless Tobacco: Never Alcohol Use Standard Drinks/Week Comments No 0 (1 standard drink = 0.6 oz pure alcoho l) Sex Assigned at Date Recorded Female 09/25/2017 1:20 PM CDT documented as of this encounter Last Filed Vital Signs Vital Sign Reading Time Taken Comments Blood Pressure 147/43 08/10/2021 3:02 PM CDT Pulse 64 08/10/2021 3:02 PM CDT Temperature - - Respiratory Rate - - Oxygen Saturation - - Inhaled Oxygen Concentration - - Weight - - Height - - Body Mass Index - - documented in this encounter Progress Notes Verónica Escalante, LARS, C.N.P. - 08/10/2021 3:00 PM CDT SUBJECTIVE CHIEF COMPLAINT/REASON FOR VISIT Chief Complaint Patient presents with ??? Other HISTORY OF PRESENT ILLNESS Zoe is a pleasant 80-year-old female here today with her for an acute visit. She has history of chronic urinary retention, recurrent urinary tract infections, InterStim device. She also has significant rheumatoid arthritis and osteoarthritis. She recently completed physical therapy which wasvery helpful for her, since stopping physical therapy she is having more back and hip pain. She has been having pain at the site of her InterStim, she denies any redness or purulence drainage. When shewas doing physical therapy her pain was much better controlled. She has had recent imaging of her hips and low back which show InterStim has not been displaced. She has not had any falls or injuries. The following portions of the patient's history were reviewed and updated as appropriate: allergies,current medications, family history, medical history, social history, surgical history and problem list. REVIEW OF SYSTEMS Gastrointestinal: Negative for constipation. Genitourinary: Positive for difficulty urinating. Musculoskeletal: Positive for arthralgias, back pain, pain or stiffness in the joints and muscle pain/stiffness. OBJECTIVE Vitals: 08/10/21 1502 BP: (!) 147/43 Patient Position: Sitting Pulse: 64 PHYSICAL EXAM Vitals and nursing note reviewed. [...] use of accessory muscles. Abdomen: Soft, non-tender, non-distended. InterStim site is tender to palpation, clean, dry, no drainage, no redness, no erythema. Extremities: Warm, without edema or ulcerations. ASSESSMENT / PLAN 1. Infection Urinary Tract Recurrent 2. Presence Of Neurostimulator At this time, we will turn off her InterStim for a few weeks. She is assisted with this and will turn this back on when she starts feeling better. Prescription for Keflex 250 mg tablet twice daily for 7 days is sent to her pharmacy. She is also given orders for continued physical therapy. If her pain d oes not improve, she should contact us and we will discuss next steps going forward. All questions answered today. - External referral PT (non-[facility]) Signed by: Verónica Escalante APRN, C.N.P. 08/25/2021 8:54 AM CDT documented in this encounter Plan of Treatment Not on filedocumented as of this encounter Visit Diagnoses Diagnosis Infection Urinary Tract Recurrent - Prim gutierrez Presence Of Neurostimulator documented in this encounter Care Teams Coal Cutting Machine Operator Relationship Specialty Start Date End Date Vicente Plummer M.D. PCP - General Family Medicine 12/15/[address] [place] [phone] documented as of this encounter
--- OUTSIDE RECORDS SUMMARY | 2022-02-28 01:36 | XMS_ITS | Encounter Summary ---
:1940 Author Organization [facility] Address [address] [place] [address] Care Team Providers Name Role Phone Vicente Plummer M.D. Primary Care Provider Reason for Visit Reason Comments Med Refill Encounter Details Date Type Department Care Team Description 12/09/2021 Refill Division of [facility], Noemi Lombardi M.D., Med Refill Internal Medicine, [facility] in [place], [address] [place] [phone] [place] [address] [place] [address] [phone] Social History Tobacco Use Types Packs/Day Years [...] on filedocumented in this encounter Care Teams Computer Lab Para Professional Relationship Specialty Start Date End Date Vicente Plummer M.D. PCP - General Family Medicine 12/15/[address] [place] [phone] documented as of this encounter
--- OUTSIDE RECORDS SUMMARY | 2022-02-28 01:36 | XMS_ITS | Encounter Summary ---
:1940 Author Organization [facility] Address [address] [place] [address] Care Team Providers Name Role Phone Vicente Plummer M.D. Primary Care Provider Reason for Visit Reason Comments Communication Encounter Details Date Type Department Care Team Description 08/17/2021 Clinical Communication Department of Urology Priti Cintron Communication in [facility] michelle C, R.N. [address] [place] [phone] Social History Tobacco Use Types Packs/Day Years Used Date Smoking Tobacco: Never Smokeless Tobacco: Never Alcohol Use Standard Drinks/Week Comments No 0 (1 standard drink = 0.6 oz pure alcoho l) Sex Assigned at Date Recorded Female 09/25/2017 1:20 PM CDT documented as of this encounter Miscellaneous Notes Telephone Encounter - Verónica Escalante APRN, C.N.P. - 08/19/2021 7:38 AM CDT Noted Telephone Encounter - Priti Cintron, R.N. - 08/17/2021 8:22 AM CDT Patient called to inform urology feeling so much better! but I think the druggist made a mistake,I have 7 extra pills. When inquired, patient states she took one tablet daily for 7 days. Provider Ava aware, patient informed to take one tablet today and tomorrow and keep the remaining for laterdate, verbalized understanding. Patient then read aloud the pill bottle, oh my gosh, I took it wrong!. Patient reassured, reinformed to take one today and tomorrow and call if further concerns. Patient further states, I think I figured it out, I have it at 2.5, is that ok? regarding InterStim. Will inform Provider Ava. Patient appreciative. documented in this encounter Plan of Treatment Not on filedocumented as of this encounter Visit Diagnoses Not on filedocumented in this encounter Care Teams Cook Morning Relationship Specialty Start Date End Date Vicente Plummer M.D. PCP - General Family Medicine 12/15/[address] [place] [address] [place] [address] documented as of this encounter
--- OUTSIDE RECORDS SUMMARY | 2022-02-28 01:36 | XMS_ITS | Encounter Summary ---
:1940 Author Organization [facility] Address [address] [place] [address] Care Team Providers Name Role Phone Vicente Plummer M.D. Primary Care Provider Reason for Referral Outpatient (Routine) - Authorized Specialty Diagnoses / Procedures Referred By Contact Refer red To Contact Vicente Plummer M.D . [facility] [address] [place] [address] Referral ID Status Reason Start Date Expiration Date Visits V isits Requested Authorized [id number] Authorized 01/25/2022 01/24/2025 1 1 Encounter Details Date Type Department Care Team Description 01/25/2022 [facility] Therese Plummer M.D. [address] [place], [place] [phone] (Wo rk) Social History Tobacco Use Types Packs/Day Years Used Date Smoking Tobacco: Never Smokeless Tobacco: Never Alcohol Use Standard Drinks/Week Comments No 0 (1 standard drink = 0.6 oz pure alcoho l) Sex Assigned at Date Recorded Female 09/25/2017 1:20 PM CDT documented as of this encounter Plan of Treatment Scheduled Referrals Name Type Priority Associated Diagnoses Order S alex Primary Care nurse Outpatient Referral Routine Ex pected: visit (clinic) - 02/08/2022, [facility]; Expires: BP check; BP check 3 only (COMMUNITY MUSIC THERAPIST) documented as of this encounter Visit Diagnoses Not on filedocumented in this encounter Care Teams Industrial Maintenance Repairer Relationship Specialty Start Date End Date Vicente Plummer M.D. PCP - General Family Medicine 12/15/[address] [place] [address] [place] [phone] documented as of this encounter
--- OUTSIDE RECORDS SUMMARY | 2022-02-28 01:37 | XMS_ITS | Encounter Summary ---
:1940 Author Organization [facility] Address [address] [place] [address] Care Team Providers Name Role Phone Noemi Lopez M.D., M.P.H. Primary Care Provider [phone] Reason for Referral Outpatient (Routine) - Closed Specialty Diagnoses / Procedures Referred By Referred To Contact Contact Physical Medicine and Diagnoses Primary Osteoarthritis Knee Left Gurjit Batisat [facility] Danielle Holloway M.D. [address] [place] [address] Referral ID Status Reason Start Date Expiration Date Visits Requ ested Visits Authorized [id number] Closed 01/01/2020 12/31/2020 1 1 Reason for Visit Reason Comments Leg Pain L leg and knee pain Appointment Request (Routine) - Closed Specialty Diagnoses / Procedures Referred By Contact Refer red To Contact Community Internal Medicine Referral ID Status Reason Start Date Expiration Date Visits Requ ested Visits Authorized [id number] Closed 01/01/2020 12/31/2020 1 1 Encounter Details Date Type Department Care Team Description 01/01/2020 Office Visit [facility] of [facility] Gurjit Batista Osteoarthritis Medicine, Joey AguirreBReginaSRegina, Knee Le ft (Primary Dx) Clinic, in [place] [address] [facility] [address] [place] [phone] Social History Tobacco Use Types Packs/Day Years Used Date Smoking Tobacco: Never Smokeless Tobacco: Never Alcohol Use Standard Drinks/Week Comments No 0 (1 standard drink = 0.6 oz pure alcoho l) Sex Assigned at Date Recorded Female 09/25/2017 1:20 PM CDT documented as of this encounter Last Filed Vital Signs Vital Sign Reading Time Taken Comments Blood Pressure 134/72 01/01/2020 2:09 PM CDT Pulse 68 01/01/2020 2:09 PM CDT Temperature 36.7 ??C (98.1 ??F) 01/01/2020 2:09 PM CDT Respiratory Rate - - Oxygen Saturation - - Inhaled Oxygen Concentration - - Weight 66 kg (145 lb 8.1 oz) 01/01/2020 2:09 PM CDT Height - - Body Mass Index 26.78 10/26/2018 2:05 PM CDT documented in this encounter Progress Notes Gurjit Batista M.B.B.S., MAbdoul - 01/01/2020 2:15 PM CDT SUBJECTIVE CHIEF COMPLAINT / REASON FOR VISIT Vanessa Andino is a 79 y.o. female who presents for evaluation of Leg Pain (L leg and knee pain). HISTORY OF PRESENT ILLNESS Vanessa Andino is a pleasant 79-year-old female with a history of osteoarthritis here with left knee pain. She reports pain is worse with movement and now interferes with sleep. She has tried managing it with Tylenol on warm compresses. This works most of the time but occasionally is unsuccessful. History is significant for trauma to that knee. She received a cortisone injection in the left knee 1 year ago and she reports this worked well for several months. She has also had right knee arthroplasty for similar symptoms. The following portions of the patient's history were reviewed and updated as appropriate: allergies,current medications, family history, medical history, social history, surgical history and problem list. REVIEW OF SYSTEMS Pertinent items are noted in HPI. OBJECTIVE BP 134/72 (BP Location: Left arm, Patient Position: Sitting, Cuff Size: Regular) Pulse 68 Temp 36.7 ??C Wt 66 kg BMI 26.78 kg/m?? PHYSICAL EXAM General Appearance: healthy, alert, no distress, cooperative. Skin: skin color, texture, turgor normal, no suspicious rashes or lesions. Head: normocephalic, no masses, lesions, tenderness or abnormalities. Eyes: Anicteric sclera. Pupils are equally round and reactive to light. Extraocular movements are intact. Extremities: Discoloration noted on left knee. There is tenderness over the lateral and medial jointlines with some swelling. Range of motion is preserved. ASSESSMENT / PLAN #1 Primary Osteoarthritis Knee Left Patient has left knee pain with a history of osteoarthritis involving that knee. Pain responds well to Tylenol and warm compresses. However it has been getting worse. Reviewed her history, she received a cortisone injection in that knee in February 2019. I believe itwould be appropriate to attempt this again. I have referred to Physical Medicine for knee joint injection. In the meantime, she will continue with Tylenol and warm compresses. documented in this encounter Plan of Treatment Scheduled Referrals Name Type Priority Associated Diagnoses Order S chedule Physical Medicine and Outpatient Routine Primary Expect ed: Rehabilitation - Referral Osteoarthritis Knee 09/2019 General consult Left (Approximate ), (clinic) Expires: 12/31/2022 documented as of this encounter Visit Diagnoses Diagnosis Primary Osteoarthritis Knee Left - Prima ry documented in this encounter Care Teams [employer] Program Coordinator Relationship Specialty Start Date End Date Noemi Lopez M.D., M.P.H. PCP - General 12/27/19 12/14/20 [address] [place] [address] documented as of this encounter
--- OUTSIDE RECORDS SUMMARY | 2022-02-28 01:37 | XMS_ITS | Encounter Summary ---
:1940 Author Organization [facility] Address [address] [place] [address] Care Team Providers Name Role Phone Noemi Lopez M.D., M.P.H. Primary Care Provider [phone] Reason for Visit Reason Comments Urinary Symptom burning with cathing 5-6 eliud es but usually only does 4 times self cathing Follow-up interstim adjustment Encounter Details Date Type Department Care Team Description 05/13/2020 Office Visit Department of Urology Verónica Escalante, Retention Urinary (Primary Dx); in [place], C.N.P. Dysuria; [place] [address] [facility] [address] [place] [address] [phone] Social History Tobacco Use Types Packs/Day Years Used Date Smoking Tobacco: Never Smokeless Tobacco: Never Alcohol Use Standard Drinks/Week Comments No 0 (1 standard drink = 0.6 oz pure alcoho l) Sex Assigned at Date Recorded Female 09/25/2017 1:20 PM CDT documented as of this encounter Last Filed Vital Signs Vital Sign Reading Time Taken Comments Blood Pressure - - Pulse 62 05/13/2020 8:54 AM MINERAL SURVEYING TECHNICIAN Temperature 36.3 ??C (97.3 ??F) 05/13/2020 8:54 AM MINERAL SURVEYING TECHNICIAN Respiratory Rate - - Oxygen Saturation 98% 05/13/2020 8:54 AM MINERAL SURVEYING TECHNICIAN Inhaled Oxygen Concentration - - Weight - - Height - - Body Mass Index - - documented in this encounter Progress Notes Verónica Escalante APRN, C.N.P. - 05/13/2020 9:00 AM CST SUBJECTIVE CHIEF COMPLAINT/REASON FOR VISIT Chief Complaint Patient presents with ??? Urinary Symptom ??? Follow-up interstim adjustment HISTORY OF PRESENT ILLNESS Zoe is a very pleasant 79 year old female here today for an acute visit for dysuria, bladder pain,and increased urgency frequency. She states that she has been having to perform intermittent catheterization more often and her urethra has been more sensitive. She wonders if she has another infection. She also made some changes on her InterStim device and wonders if she needs to have this checked aswell. Her device is currently on program 3 and seems to be working well. We did increase this slightly during her visit today which she tolerated well. The following portions of the patient's history were reviewed and updated as appropriate: allergies,current medications, family history, medical history, social history, surgical history and problem list. REVIEW OF SYSTEMS Gastrointestinal: Negative for constipation and diarrhea. Genitourinary: Positive for difficulty urinating, pain with urination, urgency and frequent urination. OBJECTIVE Vitals: 05/13/20 0854 Pulse: 62 Temp: 36.3 ??C SpO2: 98% TempSrc: Temporal PHYSICAL EXAM Vitals and nursing note reviewed. General: Well developed, well nourished, well groomed female in no acute distress. Neurological: Alert, [...] edema or ulcerations. ASSESSMENT / PLAN #1 Atonic Bladder #2 Urinary Retention #3 Dysuria Increase catheterization to 6 times daily, revised DME prescription will be sent to her supply company. Urine sample is collected for urinalysis and urine culture, prescription for 10 day course of cefdinir is sent to her pharmacy. We will contact her if we need to make any changes when culture results are available. She should contact us if she has any other urological concerns. We will see her again at previously scheduled appointment. Signed by: Verónica Escalante APRN, C.N.P. 05/13/2020 8:54 AM MINERAL SURVEYING TECHNICIAN RAL SURVEYING TECHNICIAN documented in this encounter Plan of Treatment Not on filedocumented as of this encounter Procedures Procedure Name Priority Date/Time Associated Comments Diagnosis BACTERIAL CULTURE, Routine 05/13/2020 9:31 AM Retention Urinary Results for this AEROBIC + SUSC, URINE MINERAL SURVEYING TECHNICIAN Dysuria proced ure are in the results section. URINALYSIS WITH Routine 05/13/2020 9:31 AM Retention Uri nary Results for this MICROSCOPIC MINERAL SURVEYING TECHNICIAN Dysuria procedure are i n the results section. documented in this encounter Results (ABNORMAL) Urinalysis with Microscopic: Urine, Straight Catheter (05/13/2020 9:31 AM MINERAL SURVEYING TECHNICIAN) P athologist Signature Source Urine, Urine, 05/13/2020 [place] Straight 9:39 AM MINERAL SURVEYING TECHNICIAN Catheter Clarity Clear Clear 05/13/2020 [place] 9:39 AM MINERAL SURVEYING TECHNICIAN Color Yellow 05/13/2020 [place] 9:39 AM MINERAL SURVEYING TECHNICIAN Comment: ----REFERENCE VALUE---- Colorless Yellow Janeth Blood Negative Negative 05/13/2020 9:39 AM MINERAL SURVEYING TECHNICIAN [facility] Nitrite Negative Negative 05/13/2020 9:39 AM MINERAL SURVEYING TECHNICIAN OW[place] Leukocyte Esterase Large (A) Negative 05/13/2020 9:39 AM CS T OW[place] Protein Negative mg/dL 05/13/2020 9:39 AM MINERAL SURVEYING TECHNICIAN [facility] Comment: ----REFERENCE VALUE---- Negative Trace Glucose Negative Negative mg/dL 05/13/2020 9:39 AM MINERAL SURVEYING TECHNICIAN [place] Ketone Negative Negative mg/dL 05/13/2020 9:39 AM MINERAL SURVEYING TECHNICIAN OW [place] Bilirubin Negative Negative 05/13/2020 9:39 AM MINERAL SURVEYING TECHNICIAN [facility] pH 7.0 5.0 - 8.0 05/13/2020 9:39 AM MINERAL SURVEYING TECHNICIAN [facility] Specific Jonancy 1.007 1.001 - 1.035 05/13/2020 9:39 AM MINERAL SURVEYING TECHNICIAN [facility] Urobilinogen 0.2 0.2 - 1.0 mg/dL 05/13/2020 9:39 AM CS T OW[place] White Blood Cells 21-30 (A) /hpf 05/13/2020 9:55 AM MINERAL SURVEYING TECHNICIAN OW[place] Comment: ----REFERENCE VALUE---- Males: 0-3 Females: 0-10 Unknown: 0-10 Red Blood Cells None Seen 0 - 2 /hpf 05/13/2020 9:55 AM MINERAL SURVEYING TECHNICIAN [facility] Crystals Amorphous None Seen /lpf 05/13/2020 9:55 AM MINERAL SURVEYING TECHNICIAN [place] Bacteria Present (A) None Seen 05/13/2020 9:55 AM MINERAL SURVEYING TECHNICIAN OW[facility] Specimen Anatomical Collection Method Collection Time Receive d Time (Source) Location / / Volume Laterality Urine (Urine, 05/13/2020 9:31 AM 05/13/19 9:36 Straight MINERAL SURVEYING TECHNICIAN AM MINERAL SURVEYING TECHNICIAN Catheter) Verónica Escalante APRN CReginaNReginaPRegina LAB URINE ORDERABLES Performing Organization Address City/State/ZIP Code Phon e Number [facility]- [address] [place] [address] [place] [address] System in [place] [address] (ABNORMAL) Bacterial Culture, Aerobic + Susc, Urine (05/13/2020 9:31 AM MINERAL SURVEYING TECHNICIAN) Patholo gist Method Time Signature Urine Culture with mixed 05/17/2020 MKTO miriam (A) 8:33 AM MINERAL SURVEYING TECHNICIAN Urine Culture KLEBSIELLA PNEUMONIAE 05/17/2020 MKT O >100,000 cfu/mL 8:33 AM MINERAL SURVEYING TECHNICIAN (A) Urine Culture ESCHERICHIA COLI 05/17/2020 MKTO >100,000 cfu/mL 8:33 AM MINERAL SURVEYING TECHNICIAN (A) Comment: ??Unable to perform susceptibility test ing due to insufficient growth in positive test con trol well. Notify Microbiology if organism is to be referred to [facility] for further testin g. Specimen Anatomical Collection Method Collection Time Receive d Time (Source) Location / / Volume Laterality Urine (Urine, 05/13/2020 9:31 AM 05/13/19 2:37 Straight MINERAL SURVEYING TECHNICIAN PM MINERAL SURVEYING TECHNICIAN Catheter) Comment: Specimen Source Site: Urine Organism Antibiotic Method Susceptibility Klebsiella Ampicillin SUSCEPTIBILITY, >=32 mcg/mL: Res istant pneumoniae REJI (MCG/ML) Klebsiella Ampicillin + Sulbactam SUSCEPTIBILITY, 8 mcg/mL: Susceptible pneumoniae RJEI (MCG/ML) Klebsiella Piperacillin + Tazobactam SUSCEPTIBILITY, <=4 mc g/mL: Susceptible pneumoniae REJI (MCG/ML) Klebsiella Cefazolin SUSCEPTIBILITY, <=4 mcg/mL: Susc eptible pneumoniae REJI (MCG/ML) Klebsiella Ceftazidime SUSCEPTIBILITY, <=1 mcg/mL: Susc eptible pneumoniae REJI (MCG/ML) Klebsiella Ceftriaxone SUSCEPTIBILITY, <=1 mcg/mL: Susc eptible pneumoniae REJI (MCG/ML) Klebsiella Cefepime SUSCEPTIBILITY, <=1 mcg/mL: Susc eptible pneumoniae REJI (MCG/ML) Klebsiella Aztreonam SUSCEPTIBILITY, <=1 mcg/mL: Susc eptible pneumoniae REJI (MCG/ML) Klebsiella Ertapenem SUSCEPTIBILITY, <=0.5 mcg/mL: pneumoniae REJI (MCG/ML) Susceptible Klebsiella Meropenem SUSCEPTIBILITY, <=0.25 mcg/mL: pneumoniae REJI (MCG/ML) Susceptible Klebsiella Gentamicin SUSCEPTIBILITY, <=1 mcg/mL: Susc eptible pneumoniae REJI (MCG/ML) Klebsiella Tobramycin SUSCEPTIBILITY, <=1 mcg/mL: Susc eptible pneumoniae REJI (MCG/ML) Klebsiella Levofloxacin SUSCEPTIBILITY, <=0.12 mcg/mL: pneumoniae REJI (MCG/ML) Susceptible Klebsiella Nitrofurantoin SUSCEPTIBILITY, 64 mcg/mL: Inter mediate pneumoniae REJI (MCG/ML) Klebsiella Trimethoprim + SUSCEPTIBILITY, <=20 mcg/mL: pneumoniae Sulfamethoxazole REJI (MCG/ML) Susceptible Verónica Escalante APRN CReginaNReginaPRegina LAB MICROBIOLOGY - GENE RAL ORDERABLES Performing Organization Address City/State/ZIP Code Phon e Number [facility]- [address] [place] [address] [place] [address] System in [address] documented in this encounter Visit Diagnoses Diagnosis Retention Urinary - Primary Dysuria Atonic Bladder documented in this encounter Care Teams Surface Grinder Relationship Specialty Start Date End Date Noemi Lopez M.D., M.P.H. PCP - General 12/27/19 12/14/20 [address] [place] [address] documented as of this encounter
--- OUTSIDE RECORDS SUMMARY | 2022-02-28 01:37 | XMS_ITS | Encounter Summary ---
:1940 Author Organization [facility] Address [address] [place] [address] Care Team Providers Name Role Phone Noemi Lopez M.D., M.P.H. Primary Care Provider [phone] Encounter Details Date Type Department Care Team Description 05/28/2020 Orders Only Department of Urology Verónica Escalante, Retention Urinary (Primary Dx); in [facility] C.N.PRegina Atonic Bladder [place] [address] [place] [phone] Social History Tobacco Use Types Packs/Day Years Used Date Smoking Tobacco: Never Smokeless Tobacco: Never Alcohol Use Standard Drinks/Week Comments No 0 (1 standard drink = 0.6 oz pure alcoho l) Sex Assigned at Date Recorded Female 09/25/2017 1:20 PM CDT documented as of this encounter Plan of Treatment Not on filedocumented as of this encounter Visit Diagnoses Diagnosis Retention Urinary - Primary Atonic Bladder documented in this encounter Care Teams Bioinformatics Associate Relationship Specialty Start Date End Date Noemi Lopez M.D., M.P.H. PCP - General 12/27/19 12/14/20 [address] [place] [address] documented as of this encounter
--- OUTSIDE RECORDS SUMMARY | 2022-02-28 01:37 | XMS_ITS | Encounter Summary ---
:1940 Author Organization [facility] Address [address] [place] [address] Care Team Providers Name Role Phone Noemi Lopez M.D., M.P.H. Primary Care Provider [phone] Reason for Visit Reason Comments Med Refill Encounter Details Date Type Department Care Team Description 04/28/2020 Refill Department of Family Medicine, Gurjit Batista I., Med Refill [facility], in [place], [place] [address] [facility] [address] [place] [address] [place] [address] [phone] Social History Tobacco Use Types Packs/Day Years [...] on filedocumented in this encounter Care Teams Technology Resource Teacher Relationship Specialty Start Date End Date Noemi Lopez M.D., M.P.H. PCP - General 12/27/19 12/14/20 [address] [place] [address] documented as of this encounter
--- OUTSIDE RECORDS SUMMARY | 2022-02-28 01:37 | XMS_ITS | Encounter Summary ---
:[address] [facility] Address [address] [place] [address] Care Team Providers Name Role Phone Noemi Lopez M.D., M.P.H. Primary Care Provider [phone] Encounter Details Date Type Department Care Team Description 08/26/2020 Hospital Encounter Department of Noemi Lopez Arth diane Rheumatoid (HCC); Laboratory Medicine Estella Lombardi, M.P .H. Diabetes Mellitus Type 2 (HCC) in [place], [address] [place] [address] 300 [facility] [address] [place], [place] [phone] [address] (Work) [phone] Social History Tobacco Use Types Packs/Day Years [...] daily. 0 01/25/20 18 tablet alendronate (FOSAMAX) 35 mg TAKE ONE TABLET 12 tablet 0 08/27/2020 tablet BY MOUTH EVERY WEEK TAKE WITH 8OZ OF WATER ON AN. EMPTY STOMACH REMAIN UPRIGHT FOR 30 MINUTES carvediloL (COREG) 25 mg TAKE 1 TABLET 180 tablet 1 05/02/19 21 10/30/2020 tablet (25 MG TOTAL) BY MOUTH 2 (TWO) TIMES A DAY WITH MEALS. dilTIAZem (TIAZAC/TAZTIA XT) Take 240 mg by 0 12/30/2020 240 mg ER capsule mouth. furosemide (LASIX) 40 mg TAKE ONE-HALF 90 tablet 2 07/02/19 21 01/14/2021 tablet TABLET TWICE DAILY documented as of this encounter Plan of Treatment Not on filedocumented as of this encounter Procedures Procedure Name Priority Date/Time Associated Comments Diagnosis PERNICIOUS ANEMIA Routine 08/26/2020 10:02 Arthritis Result s for this CASCADE, S AM CDT Rheumatoid (HCC) procedure a re in the results section. CBC WITH DIFFERENTIAL, Routine 08/26/2020 10:02 Arthritis R esults for this B AM CDT Rheumatoid (HCC) procedure a re in the results section. HEMOGLOBIN A1C, B Routine 08/26/2020 10:02 Arthritis Result s for this AM CDT Rheumatoid (HCC) procedure are in Diabetes Mellitus the result s Type 2 (HCC) section. FOLATE, S Routine 08/26/2020 10:02 Arthritis Results for this AM CDT Rheumatoid (HCC) procedure a re in the results section. COMPREHENSIVE Routine 08/26/2020 10:02 Arthritis Results fo r this METABOLIC PANEL, S/P AM CDT Rheumatoid (HCC) pro cedure are in the results section. documented in this encounter Results (ABNORMAL) Hemoglobin A1c (08/26/2020 10:02 AM CDT) P athologist Signature Hemoglobin A1c, 6.0 (H) 4.2 - 5.6 08/26/2020 [place] B % 2:25 PM CDT Comment: Hemoglobin A1c values of 5.7-6.4 percent indicate an increased risk for developing diabetes cluadia cabral. In diabetic patients, HbA1c goals should be discussed with healthcare provider. Specimen Anatomical Collection Method Collection Time Receive d Time (Source) Location / / Volume Laterality Blood (Blood, 08/26/2020 10:02 08/26/2020 1:29 Venous) AM CDT PM CDT Noemi Lopez M.D., M.P.H. LAB BLOOD ADD-ON Performing Organization Address City/State/ZIP Code Phon e Number [facility]- [address] [place] [address] [place] [address] System in [place] [address] Pernicious Anemia [place] (08/26/2020 10:02 AM CDT) athologist Signature Vitamin B12 597 180 - 914 08/27/2020 [facility] Assay, S ng/L 8:57 AM CDT Specimen Anatomical Collection Method Collection Time Receive d Time (Source) Location / / Volume Laterality Blood (Blood, 08/26/2020 10:02 08/27/2020 7:18 Venous) AM CDT AM CDT Noemi Lopez M.D., M.P.H. LAB BLOOD NON ADD-ON Performing Organization Address City/[facility]/ZIP Code Phon e Number [facility] [address] [place], [place] [address] [place] [address] [place] [address] Laboratory Medicine and Pathology [address] [place] Folate (08/26/2020 10:02 AM CDT) athologist Signature Folate, S >20.0 >=4.0 mcg/L 08/26/2020 4:20 [place] PM CDT Comment: Biotin has been identified by the gwen mendez as a potential interfering substance. ??Higher concentr ations of biotin may be found in multivitamins, hair/nail supple ments, and workout supplements. ??If the result does not [facility] clinical observations, repeat testing after patient refrains fr om the use of supplements for at least 12 hours. Specimen Anatomical Collection Method Collection Time Receive d Time (Source) Location / / Volume Laterality Blood (Blood, 08/26/2020 10:02 08/26/2020 3:13 Venous) AM CDT PM CDT Noemi Lopez M.D., M.P.H. LAB BLOOD ADD-ON Performing Organization Address City/State/ZIP Code Phon e Number [facility]- [address] [place] [address] [facility] [place] [address] [facility] [address] (ABNORMAL) CBC with Differential, Blood (08/26/2020 10:02 AM CDT) [facility] gist Method Time Signature Hemoglobin 11.7 11.6 - 08/26/2020 FB60 15.0 g/dL 11:09 AM CDT Hematocrit 35.6 35.5 - 08/26/2020 FB60 44.9 % 11:09 AM CDT Erythrocytes 3.78 (L) 3.92 - 08/26/2020 FB60 5.13 11:09 AM CDT x10(12)/L MCV 94.2 78.2 - 08/26/2020 FB60 97.9 fL 11:09 AM CDT RBC Distrib Width 14.5 12.2 - 08/26/2020 FB60 16.1 % 11:09 AM CDT Platelet Count 291 157 - 371 08/26/2020 FB60 x10(9)/L 11:09 AM CDT Leukocytes 7.7 3.4 - 9.6 08/26/2020 FB60 x10(9)/L 11:09 AM CDT Neutrophils 5.07 1.56 - 08/26/2020 FB60 6.45 11:09 AM CDT x10(9)/L Lymphocytes 1.68 0.95 - 08/26/2020 FB60 3.07 11:09 AM CDT x10(9)/L Monocytes 0.67 0.26 - 08/26/2020 FB60 0.81 11:09 AM CDT x10(9)/L Eosinophils 0.20 0.03 - 08/26/2020 FB60 0.48 11:09 AM CDT x10(9)/L Basophils 0.06 0.01 - 08/26/2020 FB60 0.08 11:09 AM CDT x10(9)/L Specimen Anatomical Collection Method Collection Time Receive d Time (Source) Location / / Volume Laterality Blood (Blood, 08/26/2020 10:02 08/26/2020 Venous) AM CDT 10:03 AM CDT Noemi Lopez M.D., M.P.H. LAB BLOOD ADD-ON Performing Organization Address City/State/ZIP Code Phon e Number [facility]- [address] [place] [address] [facility] [address] [place] [address] System in [place] [address] (ABNORMAL) Comprehensive Metabolic Panel (08/26/2020 10:02 AM CDT) Analysis Performed At Patho logist Time Signature Potassium, P 4.1 3.6 - 5.2 08/26/2020 [place] mmol/L 2:15 PM CDT Sodium, P 140 135 - 145 08/26/2020 [place] mmol/L 2:15 PM CDT Chloride, P 101 98 - 107 08/26/2020 [place] mmol/L 2:15 PM CDT Bicarbonate, P 30 (H) 22 - 29 08/26/2020 [place] mmol/L 2:15 PM CDT Anion Gap, P 9 7 - 15 08/26/2020 [place] 2:15 PM CDT BUN (Blood Urea 26 (H) 6 - 21 08/26/2020 [place] Nitrogen), P mg/dL 2:15 PM CDT Creatinine 1.25 (H) 0.59 - 08/26/2020 [place] 1.04 mg/dL 2:15 PM CDT eGFR-Black/Afri 47 (L) >=60 08/26/2020 [facility] can [place] mL/min/BSA 2:15 PM CDT Comment: ----ADDITIONAL INFORMATION---- Estimated GFR calculated using the 2009 CKD_EPI creatinine equation. eGFR Non-Black/ 41 (L) >=60 mL/min/BSA 08/26/2020 2:15 PM CDT [place] Comment: ----ADDITIONAL INFORMATION---- Estimated GFR calculated using the 2009 CKD_EPI creatinine equation. Calcium, Total, P 8.8 8.8 - 10.2 mg/dL 08/26/2020 2:15 PM CDT [place] Glucose, P 114 70 - 140 mg/dL 08/26/2020 2:15 PM CDT O KENNEDY Protein, Total, P 6.8 6.3 - 7.9 g/dL 08/26/2020 2:15 P M CDT [place] Albumin, P 4.0 3.5 - 5.0 g/dL 08/26/2020 2:15 PM CDT O KENNEDY Aspartate Aminotransferase 40 8 - 43 U/L 08/26/2020 2 :15 PM CDT [place] (AST), P Alkaline Phosphatase, P 78 35 - 104 U/L 08/26/2020 2: 15 PM CDT [place] Alanine Aminotransferase (ALT), 22 7 - 45 U/L 021 2:15 PM CDT [place] P Bilirubin, Total, P 0.4 <=1.2 mg/dL 08/26/2020 2:15 PM CDT [place] Specimen Anatomical Collection Method Collection Time Receive d Time (Source) Location / / Volume Laterality Blood (Blood, 08/26/2020 10:02 08/26/2020 1:29 Venous) AM CDT PM CDT Noemi Lopez M.D., M.P.H. LAB BLOOD ADD-ON Performing Organization Address City/State/ZIP Code Phon e Number [facility]- [address] [place] [address] [place] [address] System in [place] [address] documented in this encounter Visit Diagnoses Diagnosis Arthritis Rheumatoid (HCC) Diabetes Mellitus Type 2 (HCC) documented in this encounter Care Teams Hearing Screener Relationship Specialty Start Date End Date Noemi Lopez M.D., M.P.H. PCP - General 12/27/19 12/14/[address] [place] [phone] documented as of this encounter
--- OUTSIDE RECORDS SUMMARY | 2022-02-28 01:37 | XMS_ITS | Encounter Summary ---
:1940 Author Organization [facility] Address [address] [place] [address] Care Team Providers Name Role Phone Noemi Lopez M.D., M.P.H. Primary Care Provider Encounter Details Date Type Department Care Team Description 02/07/2020 Clinical Communication Department of Urology Ashely Escalante in [place] APRN, C.N.P. [place] [address] [place] [phone] Social History Tobacco Use Types Packs/Day Years Used Date Smoking Tobacco: Never Smokeless Tobacco: Never Alcohol Use Standard Drinks/Week Comments No 0 (1 standard drink = 0.6 oz pure alcoho l) Sex Assigned at Date Recorded Female 09/25/2017 1:20 PM CDT documented as of this encounter Miscellaneous Notes Telephone Encounter - Aliza England L.P.N. - 02/07/2020 2:55 PM CST Contacted patient and she is aware of the recommendations and medication sent in. Patient will call if needing to have a urine sample collected. No further questions at time of call end. T MARKER Telephone Encounter - Verónica Escalante APRN, C.N.P. - 02/07/2020 2:42 PM SHIRT MARKER I sent a prescription for cefdinir to her pharmacy. If her symptoms do not improve, we will collect urine sample. Please notify the patient. T MARKER Telephone Encounter - Aliza England L.P.N. - 02/07/2020 7:59 AM CST Patient is calling today in regards to having UTI symptoms and needing to get some medication. Patient self catheterizes 3 times a day but has had to do more lately, has pain when cathing. Patient denies any fever, chills, abdomen pain, back pain or blood in urine. Patient would like to get this taken care of, as she does not wish to end up in the ER for this overthe weekend. Nurse will send message to Verónica Escalante and let patient know. Nurse did state to patient she will more than likely need to give a urine sample to make sure we cangive her the correct antibiotics. Patient verbalized understandings and will await a call. T MARKER documented in this encounter Plan of Treatment Not on filedocumented as of this encounter Visit Diagnoses Not on filedocumented in this encounter Care Teams Hand Candle Dipper Relationship Specialty Start Date End Date Noemi Lopez M.D., M.P.H. PCP - General 12/27/19 12/14/[address] [place] [address] documented as of this encounter
--- OUTSIDE RECORDS SUMMARY | 2022-02-28 01:37 | XMS_ITS | Encounter Summary ---
:[address] [facility] Address [address] [place] [address] Care Team Providers Name Role Phone Noemi Lopez M.D., M.P.H. Primary Care Provider Encounter Details Date Type Department Care Team Description 03/03/2020 Orders Only Department of Urology Verónica Escalante, Retention Urinary (Primary Dx); in [facility], C.N.P. Atonic Bladder [place] [address] [place] [phone] Social History Tobacco Use Types Packs/Day Years [...] Bladder documented in this encounter Care Teams Fnp Relationship Specialty Start Date End Date Noemi Lopez M.D., M.P.H. PCP - General 12/27/19 12/14/20 [address] [place] [address] documented as of this encounter
--- OUTSIDE RECORDS SUMMARY | 2022-02-28 01:37 | XMS_ITS | Encounter Summary ---
:1940 Author Organization [facility] Address [address] [place] [address] Care Team Providers Name Role Phone Noemi Lopez M.D., M.P.H. Primary Care Provider [phone] Encounter Details Date Type Department Care Team Description 10/14/2020 Clinical Communication Division of Noemi Hager Internal MedicineHarjit M.D., M.P. H. [place], in [address] [place] [address] [place] [address] [place], [place] [phone] [address] (Work) [phone] Social History Tobacco Use Types Packs/Day Years Used Date Smoking Tobacco: Never Smokeless Tobacco: Never Alcohol Use Standard Drinks/Week Comments No 0 (1 standard drink = 0.6 oz pure alcoho l) Sex Assigned at Date Recorded Female 09/25/2017 1:20 PM CDT documented as of this encounter Miscellaneous Notes Telephone Encounter - Netta Dauhgerty L.P.N. - 10/14/2020 2:50 PM CDT SUBJECTIVE CHIEF COMPLAINT / REASON FOR CALL No chief complaint on file. Information Discussed Called and spoke to patient she is going to increase her weekly dose to 70mg and will call to make an appointment for her labs in March of 2021. PLAN Disposition/Recommendation: patient to schedule appointment and will call Information/Education: patient/caller able to teach back Caller agreeable to plan of care: yes The following references were used: provider John Telephone Encounter - Noemi Lopez M.D., M.P.H. - 10/14/2020 2:35 PM CDT Please let Mrs. Andino know that endocrinology reviewed her care. As far as the osteoporosis and bone health, they feel we can continue with the fosamax, and increase the dose to 70mg weekly. I havesent the new dose to the [place] pharmacy. We will check her kidney function every 6 months to make sure she can continue to safely use this medication. documented in this encounter Plan of Treatment Not on filedocumented as of this encounter Results (ABNORMAL) Basic Metabolic Panel (04/16/2021 9:37 AM EVENTS ASSOCIATE) Analysis Performed At Patho logist Time Signature Potassium, P 4.4 3.6 - 5.2 04/16/2021 [place] mmol/L 11:20 AM EVENTS ASSOCIATE Sodium, P 138 135 - 145 04/16/2021 [place] mmol/L 11:20 AM EVENTS ASSOCIATE Chloride, P 101 98 - 107 04/16/2021 [place] mmol/L 11:20 AM EVENTS ASSOCIATE Bicarbonate, P 27 22 - 29 04/16/2021 [place] mmol/L 11:20 AM EVENTS ASSOCIATE Anion Gap, P 10 7 - 15 04/16/2021 [place] 11:20 AM EVENTS ASSOCIATE BUN (Blood Urea 29 (H) 6 - 21 04/16/2021 [place] Nitrogen), P mg/dL 11:20 AM EVENTS ASSOCIATE Creatinine 1.17 (H) 0.59 - 04/16/2021 [place] 1.04 mg/dL 11:20 AM EVENTS ASSOCIATE eGFR-Black/Afri 50 (L) >=60 04/16/2021 [place] can [place] mL/min/BSA 11:20 AM EVENTS ASSOCIATE Comment: ----ADDITIONAL INFORMATION---- Estimated GFR calculated using the 2009 CKD_EPI creatinine equation. eGFR Non-Black/ 44 (L) >=60 mL/min/BSA 04/16/2021 11:20 AM EVENTS ASSOCIATE [facility] Comment: ----ADDITIONAL INFORMATION---- Estimated GFR calculated using the 2009 CKD_EPI creatinine equation. Calcium, Total, P 8.9 8.8 - 10.2 mg/dL 04/16/2021 11:2 0 AM EVENTS ASSOCIATE [place] Glucose, P 113 70 - 140 mg/dL 04/16/2021 11:20 AM EVENTS ASSOCIATE [place] Specimen Anatomical Collection Method Collection Time Receive d Time (Source) Location / / Volume Laterality Blood (Blood, 04/16/2021 9:37 AM 04/16/19 22 Venous) EVENTS ASSOCIATE 10:34 AM EVENTS ASSOCIATE Noemi Lopez M.D., M.P.H. LAB BLOOD ADD-ON Performing Organization Address City/State/ZIP Code Phon e Number [facility]- [address] [place] [address] [facility] [place] [address] System in [place] [address] documented in this encounter Visit Diagnoses Diagnosis Hypertension And Chronic Kidney Disease Stage 3 (HCC) - Primary documented in this encounter Care Teams Property Analyst Relationship Specialty Start Date End Date Noemi Lopez M.D., M.P.H. PCP - General 12/27/19 12/14/[address] [place] [address] documented as of this encounter
--- OUTSIDE RECORDS SUMMARY | 2022-02-28 01:37 | XMS_ITS | Encounter Summary ---
:1940 Author Organization [facility] Address [address] [place] [address] Care Team Providers Name Role Phone Noemi Lopez M.D., M.P.H. Primary Care Provider [phone] Encounter Details Date Type Department Care Team Description 11/10/2020 Orders Only [facility] PCP [facility] Sa jerad Santizo M.D. [address] [place] [phone] (Wo rk) Social History Tobacco Use Types [...] filedocumented in this encounter Care Teams Oil And Gas Recruiter Relationship Specialty Start Date End Date Noemi Lopez M.D., M.P.H. PCP - General 12/27/19 12/14/[address] [place] [phone] documented as of this encounter
--- OUTSIDE RECORDS SUMMARY | 2022-02-28 01:37 | XMS_ITS | Encounter Summary ---
:1940 Author Organization [facility] Address [address] [place] [address] Care Team Providers Name Role Phone Noemi Lopez M.D., M.P.H. Primary Care Provider [phone] Reason for Referral Outpatient (Routine) - Closed Specialty Diagnoses / Procedures Referred By Contact Refer red To Contact Diagnoses Osteoporosis Noemi Lopez M.D., [facility] Procedures BMD Bone Density Spine Hips M.P.H. [address] [place] [phone] Referral ID Status Reason Start Date Expiration Date Visits Requ ested Visits Authorized [id number] Closed 08/27/2020 08/27/2021 1 1 Reason for Visit Reason Comments Follow-up review labs. Outpatient (Routine) - Closed Specialty Diagnoses / Procedures Referred By Contact Refer red To Contact Community Internal Noemi Lopez, [facility] Medicine [place], M.P.H. [address] [place] [phone] Referral ID Status Reason Start Date Expiration Date Visits Requ ested Visits Authorized [id number] Closed 08/20/2020 08/20/2021 1 1 Encounter Details Date Type Department Care Team Description 08/27/2020 Virtual Visit Video Medicine Noemi Lopez (Primary Dx); Department in [place] Lombardi, M.P.H. Hypertension And Chronic Kidney Disease Stage 3; [place], [place] [address] [facility] Arthritis Rheumatoid (HCC); [address] [place], [place] Hyperlipidemia Mixed; [place] [address] Infection Urinary Tract Recurrent; [phone] Retention Urina ry; (Work) Pain Knee Left; [phone] Loss Hearing Se nsorineural Bilateral; (Fax) Edema Leg; PreDiabetes Social History Tobacco Use Types Packs/Day Years Used Date Smoking Tobacco: Never Smokeless Tobacco: Never Alcohol Use Standard Drinks/Week Comments No 0 (1 standard drink = 0.6 oz pure alcoho l) Sex Assigned at Date Recorded Female 09/25/2017 1:20 PM CDT documented as of this encounter Progress Notes Noemi Lopez M.D., M.P.H. - 08/27/2020 10:15 AM CDT SUBJECTIVE Ms. Andino is a 79 y.o. female who presents via telephone visit for evaluation of Follow-up (review labs.). She follows with Dr. Nunez in [place] (private practice at [address] [place] [address]) every 3 months with labs. She is due to see him in October 15. She reports she has never been on folic acid. She sees Dr. Sanches in Urology and self caths 4 times a day. No dysuria. She isn't able to empty urine on her own. She was having frequent UTIs for a while. She hasn't had one for several months. Shehas started drinking cranberry juice. She has no symptoms of atrophic vaginitis and has never used vaginal estrogen for prevention of UTIs. She takes furosemide 20mg twice daily with a mild to moderate response. She occasionally has overflow incontinence. Home blood pressures are around 120/60. She has a history of difficult to control blood pressure while on higher doses of prednisone. In 2018, carvedilol was started with the intention to stop diltiazem. However, she continues on both medications. Blood sugars dropped to the prediabetes range with the decrease in prednisone dose. She has chronic left knee pain due to OA and defers further treatment for now. ROS as in HPI, all others negative. The patient's allergies, current medications, problem list and medical history portions of the patient's history were reviewed and updated as appropriate. ASSESSMENT / PLAN #1 Osteoporosis - BMD Bone Density Spine Hips; Future; Expected date: 08/27/2020 Osteopenia in 10/16/2018 with elevated fracture risk. She iwas started on fosamax 35mg weekly, which she has tolerated without side effects. Given the high fracture risk, she should be receiving treatment doses of alendronate, rather than the preventive dose. Her CrCl is 37 based on an old body weight m easurement. Bisphophonates should only be used on a case by case bases when CrCl 25-35. --obtain current weight --if CrCl remains > 35, increase fosamax to 70mg weekly --if CrCl 25-35, obtain endocrinology e-consult for input on risks/benefits of bisphosphonates vs. Need to utilize prolia --repeat DEXA 10/16/2020 for f/u; if bone denisity stable to improving and therapy is continued, willuse for 5 years, with every 6 month monitoring of CrCl. #2 Hypertension And Chronic Kidney Disease Stage 3 She has had increased Cr with lisinopril/ARBs and hallucinations once with clonidine. In 2019, she saw Dr. Butler for high blood pressures. At that time, carvedilol was started with the intention to stop diltiazem. However, she continues on both medications. [...] that this has ever been trialed. With the CKD, I would favor trying a low dose GUILLERMO/ARB if she is willing. #3 Arthritis Rheumatoid (HCC) Managed by Dr. Nunez in [facility]. She reports labs every 3 months and well controlled symptoms on methotrexate, prednisone 1mg bid, and plaquenil. Serum Folic Acid > 20, though she has never takenfolic acid with the methotrexate. I will defer the need for folic acid to Dr. Nunez. She doesn'thave an anemia or any liver function abnormalities on today's labs. #4 Hyperlipidemia Mixed #5 Infection Urinary Tract Recurrent Last UTI months ago. If she starts to have frequent UTIs again (less than every 6 months), then I recommend starting vaginal estrogen. #6 Retention Urinary She straight caths 4x/day. #7 Left Knee Pain --consider voltaren gel QID and steroid injections if pain worsens #8 Prediabetes Since reducing prednisone to 1mg bid, A1C is down to 6.0, in the prediabetes range. Reassess annually. BILLIN minutes spent in a combination of the following activities: phone visit with the patient; reviewing records; interpreting test results; discussing plans with the patient and/or family; discussing and coordinating care with other team members. Noemi Lopez M.D., M.P.H. documented in this encounter Consult Notes Jody Huynh R.MJose Manuel. - 08/27/2020 10:15 AM CDT The patient was present for a consult via real-time audio/video technology by Dr. Noemi Lopez on08/27/2020.. documented in this encounter Miscellaneous Notes Assessment & Plan Note - Noemi Lopez M.D., M.P.H. - 08/27/2020 1:45 PM CDTAssociated Problem(s): Infection Urinary Tract Recurrent Last UTI months ago. If she starts to have frequent UTIs again (less than every 6 months), then I recommend starting vaginal estrogen. documented in this encounter Plan of Treatment Not on filedocumented as of this encounter Results BMD Bone Density Spine Hips (10/01/2020 1:47 PM CDT) Anatomical Region Laterality Modality Hip, Lumbar Spine, Nuclear Medicine RST LOS, N/A Radiographic Imaging Musculoskeletal ARZ LOS, Muskuloskeletal FLA LOS Specimen (Source) Anatomical Collection Method Collection Time Re ceived Time Location / / Volume Laterality 10/01/2020 2:14 PM CDT Impressions 10/01/2020 2:14 PM CDT Low bone density (Osteopenia) DualFemur (region: Total Right) ?? Narrative 10/01/2020 2:14 PM CDT EXAM: ??BMD BONE DENSITY SPINE HIPS Bone Mineral Density (BMD) analysis perf ormed on TotalTakeout with serial number [id number]. COMPARISON: Serial Comparisons Left Total Hip results: Exam Date ? BMD ? T-sco re ? 02/25/2008 ?0.918 g/cm2 ?? -0.7 ? 10/16/2018 ?0.766 g/cm2 ?? -1.9 ? 10/01/2020 ?0.779 g/cm2 ?? -1.8 ? Change vs. Previous (difference): 0.013 g/cm2 Change vs. Previous (%): 1.7 % The absolute BMD change from previous, 0 .013 g/cm2, is greater than least significant change : No The absolute BMD change from baseline, - 0.139 g/cm2, is greater than least significant change : Yes Right Total Hip results: Exam Date ? BMD ? T-sco re ? 02/25/2008 ?0.900 g/cm2 ?? -0.9 ? 10/16/2018 ?0.784 g/cm2 ?? -1.8 ? 10/01/2020 ?0.738 g/cm2 ?? -2.1 ? Change vs. Previous (difference): -0.046 g/cm2 *Change vs. Previous (%): -5.9 % The absolute BMD change from previous, - 0.046 g/cm2, is greater than least significant change : Yes The absolute BMD change from baseline, - 0.162 g/cm2, is greater than least significant change : Yes Combined Total Hip results: Exam Date ? BMD ? T-sco re ? 02/25/2008 ?0.900 g/cm2 ?? -0.9 ? 10/16/2018 ?0.784 g/cm2 ?? -1.8 ? 10/01/2020 ?0.738 g/cm2 ?? -2.1 ? Change vs. Previous (difference): -0.046 g/cm2 *Change vs. Previous (%): -5.9 % The absolute BMD change from previous, - 0.046 g/cm2, is greater than least significant change : Yes The absolute BMD change from baseline, - 0.162 g/cm2, is greater than least significant change : Yes Spine results: Exam Date ? BMD ? T-sco re ? 02/25/2008 ?1.128 g/cm2 ?? -0.5 ? 10/16/2018 ?1.137 g/cm2 ?? -0.5 ? 10/01/2020 ?1.211 g/cm2 ?? 0.1 ? Change vs. Previous (difference): 0.074 g/cm2 Change vs. Previous (%): 6.5 % The absolute BMD change from previous, 0 .074 g/cm2, is greater than the least significant ch justen: Yes The absolute BMD change from baseline, 0 .083 g/cm2, is greater than the least significant ch justen: Yes FINDINGS: Left Hip: Femur Neck: BMD = 0.844 g/cm2 T-score = -1.4 ?Z-score = 0.8 Total Hip: BMD = 0.779 g/cm2 T-score = -1.8 ?Z-score = 0.2 Right Hip: Femur Neck: BMD = 0.837 g/cm2 T-score = -1.4 ?? Z-score = 0.7 Total Hip: BMD = 0.738 g/cm2 T-score = -2.1 ?Z-score = -0.1 Lumbar Spine: L1: BMD = 0.925 g/cm2 L2: BMD = 1.240 g/cm2 L3: BMD = 1.454 g/cm2 L4: BMD = 1.148 g/cm2 Total Lumbar Spine (L1-L4): BMD = 1.211 g/cm2 T-score = 0.1 ?Z-score = 2.0 Trabecular Bone Score: ??L1-L4: TBS = 1.368 Please note: A more comprehensive DXA re port, including images and graphs, is available in Digify. In the absence of other causes of low BM D or demonstrated skeletal fragility, osteoporosis may be diagnosed in post-me nopausal women and men at or above age 50 when the T-score is at or below -2.5 as defined by the WHO. Low bone density is present at T-scores between -1 and -2 .5. The diagnosis in pre-menopausal women and men < age 50 can be based on l ow bone density or evidence of skeletal fragility in the appropriate clinical se tting. Based on the bone density results, and o n the patient's answers to the Fracture Risk Assessment questionnaire (please re nicola to appropriate image stored in the BMD study in WebaloEAVillij), the calculated ten year probability of fracture is: FRAX Risk Factors: Rheumatoid Arthritis FRAX (10 yr probability) adjusted for TB S: Major Osteoporotic Fracture: ??15.4 % Hip Fracture: ?4.8 % ?? Procedure Note Janie Hill M.D. - 10/01/2020Form atting of this note might be different from the original. EXAM: BMD BONE DENSITY SPINE HIPS Bone Mineral Density (BMD) analysis perf ormed on TotalTakeout with serial number [id number]. COMPARISON: Serial Comparisons Left Total Hip results: Exam Date BMD T-score 02/25/2008 0.918 g/cm2 -0.7 10/16/2018 0.766 g/cm2 -1.9 10/01/2020 0.779 g/cm2 -1.8 Change vs. Previous (difference): 0.013 g/cm2 Change vs. Previous (%): 1.7 % The absolute BMD change from previous, 0 .013 g/cm2, is greater than least significant change : No The absolute BMD change from baseline, - 0.139 g/cm2, is greater than least significant change : Yes Right Total Hip results: Exam Date BMD T-score 02/25/2008 0.900 g/cm2 -0.9 10/16/2018 0.784 g/cm2 -1.8 10/01/2020 0.738 g/cm2 -2.1 Change vs. Previous (difference): -0.046 g/cm2 *Change vs. Previous (%): -5.9 % The absolute BMD change from previous, - 0.046 g/cm2, is greater than least significant change : Yes The absolute BMD change from baseline, - 0.162 g/cm2, is greater than least significant change : Yes Combined Total Hip results: Exam Date BMD T-score 02/25/2008 0.900 g/cm2 -0.9 10/16/2018 0.784 g/cm2 -1.8 10/01/2020 0.738 g/cm2 -2.1 Change vs. Previous (difference): -0.046 g/cm2 *Change vs. Previous (%): -5.9 % The absolute BMD change from previous, - 0.046 g/cm2, is greater than least significant change : Yes The absolute BMD change from baseline, - 0.162 g/cm2, is greater than least significant change : Yes Spine results: Exam Date BMD T-score 02/25/2008 1.128 g/cm2 -0.5 10/16/2018 1.137 g/cm2 -0.5 10/01/2020 1.211 g/cm2 0.1 Change vs. Previous (difference): 0.074 g/cm2 Change vs. Previous (%): 6.5 % The absolute BMD change from previous, 0 .074 g/cm2, is greater than the least significant ch justen: Yes The absolute BMD change from baseline, 0 .083 g/cm2, is greater than the least significant ch justen: Yes FINDINGS: Left Hip: Femur Neck: BMD = 0.844 g/cm2 T-score = -1.4 Z-score = 0.8 Total Hip: BMD = 0.779 g/cm2 T-score = -1.8 Z-score = 0.2 Right Hip: Femur Neck: BMD = 0.837 g/cm2 T-score = -1.4 Z-score = 0.7 Total Hip: BMD = 0.738 g/cm2 T-score = -2.1 Z-score = -0.1 Lumbar Spine: L1: BMD = 0.925 g/cm2 L2: BMD = 1.240 g/cm2 L3: BMD = 1.454 g/cm2 L4: BMD = 1.148 g/cm2 Total Lumbar Spine (L1-L4): BMD = 1.211 g/cm2 T-score = 0.1 Z-score = 2.0 Trabecular Bone Score: L1-L4: TBS = 1.368 Please note: A more comprehensive DXA re port, including images and graphs, is available in Digify. In the absence of other causes of low BM D or demonstrated skeletal fragility, osteoporosis may be diagnosed in post-me nopausal women and men at or above age 50 when the T-score is at or below -2.5 as defined by the WHO. Low bone density is present at T-scores between -1 and -2 .5. The diagnosis in pre-menopausal women and men < age 50 can be based on l ow bone density or evidence of skeletal fragility in the appropriate clinical se tting. Based on the bone density results, and o n the patient's answers to the Fracture Risk Assessment questionnaire (please re nicola to appropriate image stored in the BMD study in QREADS), the calculated ten year probability of fracture is: FRAX Risk Factors: Rheumatoid Arthritis FRAX (10 yr probability) adjusted for TB S: Major Osteoporotic Fracture: 15.4 % Hip Fracture: 4.8 % IMPRESSION: Low bone density (Osteopenia) DualFemur (region: Total Right) Noemi Lopez M.D., M.P.H. IMG DXA PROCEDURES documented in this encounter Visit Diagnoses Diagnosis Osteoporosis - Primary Hypertension And Chronic Kidney Disease Stage 3 (HCC) Arthritis Rheumatoid (HCC) Hyperlipidemia Mixed Infection Urinary Tract Recurrent Retention Urinary Pain Knee Left Loss Hearing Sensorineural Bilateral Edema Leg PreDiabetes Osteoporosis documented in this encounter Care Teams Foreign Legal Consultant Relationship Specialty Start Date End Date Noemi Lopez M.D., M.P.H. PCP - General 12/27/19 12/14/20 [address] [place] [address] documented as of this encounter
--- OUTSIDE RECORDS SUMMARY | 2022-02-28 01:37 | XMS_ITS | Encounter Summary ---
:1940 Author Organization [facility] Address [address] [place] [address] Care Team Providers Name Role Phone Noemi Lopez M.D., M.P.H. Primary Care Provider [phone] Reason for Visit Reason Comments Med Refill Encounter Details Date Type Department Care Team Description 06/30/2020 Refill Division of Community Internal T Pedro villeda M.D. Med Refill Medicine, [facility] [address] [place] [address] [place] [address] [place] [facility] [place] [address] Social History Tobacco Use Types Packs/Day Years [...] on filedocumented in this encounter Care Teams Field Radio Operator Relationship Specialty Start Date End Date Noemi Lopez M.D., M.P.H. PCP - General 12/27/19 12/14/[address] [place] [phone] documented as of this encounter
--- OUTSIDE RECORDS SUMMARY | 2022-02-28 01:37 | XMS_ITS | Encounter Summary ---
:1940 Author Organization [facility] Address [address] [place] [address] Care Team Providers Name Role Phone Noemi Lopez M.D., M.P.H. Primary Care Provider [phone] Encounter Details Date Type Department Care Team Description 02/07/2020 Orders Only [facility] [place] [employer]ER [employer] GR[employer], C.N.P. [address] [place] [address] [place] [address] [phone] (Wo rk) Social History Tobacco Use Types [...] on filedocumented in this encounter Care Teams Fiberglass Autobody Repairer Relationship Specialty Start Date End Date Noemi Lopez M.D., M.P.H. PCP - General 12/27/19 12/14/20 [address] [place] [address] documented as of this encounter
--- OUTSIDE RECORDS SUMMARY | 2022-02-28 01:37 | XMS_ITS | Encounter Summary ---
:1940 Author Organization [facility] Address [address] [place] [address] Care Team Providers Name Role Phone Noemi Lopez M.D., M.P.H. Primary Care Provider [phone] Reason for Referral Outpatient (Routine) - Closed Specialty Diagnoses / Procedures Referred By Contact Refer red To Contact Diagnoses Osteoporosis Noemi Lopez M.D., [facility] Region Procedures BMD Bone Density Spine Hips [facility] 200 [place] [address] Referral ID Status Reason Start Date Expiration Date Visits Requ ested Visits Authorized [id number] Closed 08/27/2020 08/27/2021 1 1 Reason for Visit Outpatient (Routine) - Closed Specialty Diagnoses / Procedures Referred By Contact Refer red To Contact Diagnoses Osteoporosis Noemi Lopez M.D., [facility] Region Procedures BMD Bone Density Spine Hips [facility] 200 [place] [address] Referral ID Status Reason Start Date Expiration Date Visits Requ ested Visits Authorized [id number] Closed 08/27/2020 08/27/2021 1 1 Encounter Details Date Type Department Care Team Description 10/01/2020 Hospital Encounter Department of Radiology Anne-Marie Lopez, Osteoporosis in [place], Radha martinez M.D., M.P.H. [address] [place] [address] [place], [place] [phone] (Wo rk) Social History Tobacco Use Types [...] 1 mg daily. 0 01/25/20 18 tablet carvediloL (COREG) 25 mg TAKE 1 TABLET [...] Procedure Name Priority Date/Time Associated Comments Diagnosis BMD BONE DENSITY RAD - Routine 10/01/2020 1:47 Osteoporosis Results for this SPINE HIPS (most inpatients PM CDT procedure a re in and all the results outpatients) section. documented in this encounter Results BMD Bone Density Spine [...] Mineral Density (BMD) analysis perf ormed on VouchAR with serial number [id number]. COMPARISON: Serial Comparisons Left Total Hip results: [...] including images and graphs, is available in Pathable. In the absence of other causes of [...] image stored in the BMD study in MulliganPlusEADS), the calculated ten year probability of fracture is: FRAX Risk Factors: Rheumatoid Arthritis FRAX (10 yr probability) adjusted for TB S: Major Osteoporotic Fracture: ??15.4 % Hip Fracture: ?4.8 % ?? Procedure Note Janie Hill M.D. - 10/01/2020Form atting of this note might be different from the original. EXAM: BMD BONE DENSITY SPINE HIPS Bone Mineral Density (BMD) analysis perf Loteritymed on VouchAR with serial number [id number]. COMPARISON: Serial Comparisons Left Total Hip results: [...] including images and graphs, is available in MulliganPlusEAZapnip. In the absence of other causes of [...] in this encounter Visit Diagnoses Diagnosis Osteoporosis documented in this encounter Care Teams Pattern Vault Clerk Relationship Specialty Start Date End Date Noemi Lopez M.D., M.P.H. PCP - General 12/27/19 12/14/20 [address] [place] [address] documented as of this encounter
--- OUTSIDE RECORDS SUMMARY | 2022-02-28 01:37 | XMS_ITS | Encounter Summary ---
:1940 Author Organization [facility] Address [address] [place] [address] Care Team Providers Name Role Phone Noemi Lopez M.D., M.P.H. Primary Care Provider Reason for Visit Reason Comments Med Refill Encounter Details Date Type Department Care Team Description 08/03/2020 Refill Department of [facility] Noemi Lopez M.D., Med Refill Internal Medicine in [facility] [place], [place] [address] [place] [phone] [place] [address] [phone] Social History Tobacco Use Types Packs/Day Years Used Date Smoking Tobacco: Never Smokeless Tobacco: Never Alcohol Use Standard Drinks/Week Comments No 0 (1 standard drink = 0.6 oz pure alcoho l) Sex Assigned at Date Recorded Female 09/25/2017 1:20 PM CDT documented as of this encounter Miscellaneous Notes Telephone Encounter - Jeri Morales - 08/04/2020 7:58 AM CDT Pharmacy notes on request that they last filled 05/04/20 so they should have refill remaining from 05/02/20 RX of 180 tabs/1 refills escribed to [facility] pharmacy. documented in this encounter Plan of Treatment Not on filedocumented as of this encounter Visit Diagnoses Not on filedocumented in this encounter Care Teams Pipe Insulator Helper Relationship Specialty Start Date End Date Noemi Lopez M.D., M.P.H. PCP - General 12/27/19 12/14/20 [address] [place] [phone] documented as of this encounter
--- OUTSIDE RECORDS SUMMARY | 2022-02-28 01:37 | XMS_ITS | Encounter Summary ---
:1940 Author Organization [facility] Address [address] [place] [address] Care Team Providers Name Role Phone Joseph Lopez M.D., M.P.H. Primary Care Provider [phone] Reason for Referral Outpatient (Routine) - Closed Specialty Diagnoses / Procedures Referred By Contact Refer red To Contact Endocrinology Diagnoses [facility]osis [facility]ology - Osteoporosis eConsult Estella, M.P.H. [address] [place] [phone] Referral ID Status Reason Start Date Expiration Date Visits Requ ested Visits Authorized [id number] Closed 10/01/2020 10/01/2021 1 1 Encounter Details Date Type Department Care Team Description 10/01/2020 Clinical Communication Division of [facility] Joseph Lopez Internal MedicineHarjit M.D., M.P. H. [place], in [address] [place] [address] [place] [address] [place], [place] [phone] (Work) [phone] Social History Tobacco Use Types Packs/Day Years Used Date Smoking Tobacco: Never Smokeless Tobacco: Never Alcohol Use Standard Drinks/Week Comments No 0 (1 standard drink = 0.6 oz pure alcoho l) Sex Assigned at Date Recorded Female 09/25/2017 1:20 PM CDT documented as of this encounter Miscellaneous Notes Telephone Encounter - Nissa lOson L.PReginaN. - 10/02/2020 8:27 AM CDT SUBJECTIVE CHIEF COMPLAINT / REASON FOR CALL No chief complaint on file. PLAN The following information was provided: Notified Vanessa of Dr Lopez's information and she informed me of her weight this morning being 135lbs/61kg Information/Education: patient/caller able to teach back The following references were used: provider Dr Lopez Addendum Note - Joseph Lopez M.D., M.P.H. - 10/01/2020 4:33 PM CDT Addended by: JOSEPH LOPEZ on: 10/01/2020 04:33 PM Modules accepted: Orders Telephone Encounter - Joseph Lopez M.D., M.P.H. - 10/01/2020 4:30 PM CDT Please call Mrs. Andino and let her know that I've placed an e-consult to endocrinology to comment on whether we should continue the fosamax (alendronate) or switch to a different therapy, based on the kidney function. I will reach out to her again once I hear back from Endocrinology. Telephone Encounter - Kriss Marcus L.P.N. - 10/01/2020 3:37 PM CDT Contacted patient and she stated that they took her weight today and did not know what it was. Foundin Qreads on report. Weight was 64.7 and Height was 154.0. Telephone Encounter - Joseph Lopez M.D., M.P.H. - 10/01/2020 2:36 PM CDT I was not able to reach Mrs. Andino at her listed telephone number to review the DEXA Scan results. The DEXA shows continued decline of her bone density. Density remains in the osteopenia range, but she has an elevated fracture risk. I need to determine her current body weight to calculate an accurate creatinine clearance and assesswhether it is appropriate to continue bisphosphonate therapy. Please call Mrs. Andnio. If she can provide us with a weight from her home scale, that will work.Otherwise, we should bring her into click for a blood pressure and weight check. Her CrCl is 37 based on an old body weight measurement, and bisphophonates should only be used on a case by case bases when CrCl 25-35. ?? --obtain current weight --if CrCl remains > 35, increase fosamax to 70mg weekly --if CrCl 25-35, obtain endocrinology e-consult for input on risks/benefits of bisphosphonates vs. Need to utilize prolia Electronically signed by: Joseph Lopez M.D., M.P.H. 10/01/20 2:41 PM CDT documented in this encounter Plan of Treatment Not on filedocumented as of this encounter Visit Diagnoses Diagnosis Osteoporosis - Primary documented in this encounter Care Teams Movable Bulkhead Installer Relationship Specialty Start Date End Date Joseph Lopez M.D., M.P.H. PCP - General 12/27/19 12/14/20 [address] [place] [address] documented as of this encounter
--- OUTSIDE RECORDS SUMMARY | 2022-02-28 01:37 | XMS_ITS | Encounter Summary ---
:1940 Author Organization [facility] Address [address] [place] [address] Care Team Providers Name Role Phone Noemi Lopez M.D., M.P.H. Primary Care Provider [phone] Encounter Details Date Type Department Care Team Description 09/03/2020 Orders Only Department of Urology in [facility] Verónica[place], [place] SHORT HAUL DRIVER, C.N.P. [address] [place] [address] [place] [address] [phone] (Wo rk) Social History Tobacco Use Types [...] on filedocumented in this encounter Care Teams Wind Turbine Erector Relationship Specialty Start Date End Date Noemi Lopez M.D., M.P.H. PCP - General 12/27/19 12/14/20 [address] [place] [address] documented as of this encounter
--- OUTSIDE RECORDS SUMMARY | 2022-02-28 01:37 | XMS_ITS | Encounter Summary ---
:1940 Author Organization [facility] Address [address] [place] [address] Care Team Providers Name Role Phone Noemi Lopez M.D., M.P.H. Primary Care Provider [phone] Reason for Referral Outpatient (Routine) - Closed Specialty Diagnoses / Procedures Referred By Contact Refer red To Contact Community Internal Noemi Lopez, [facility] Estella, M.P.H. [address] [place] [address] Referral ID Status Reason Start Date Expiration Date Visits Requ ested Visits Authorized [id number] Closed 08/20/2020 08/20/2021 1 1 Scheduling Instructions F/u chronic conditions. Visit jamilah royal ded to safely prescribe medications. If she is getting care outside of [facility], then we can update that in our records. Reason for Visit Reason Comments Med Refill Encounter Details Date Type Department Care Team Description 08/19/2020 Refill Department of Internal Monse Stern M.D. Med Refill Medicine in [place], [address] [facility] [place] [address] [address] [facility] THOMAS ELIZAB[place] [address] [phone] Social History Tobacco Use Types Packs/Day Years Used Date Smoking Tobacco: Never Smokeless Tobacco: Never Alcohol Use Standard Drinks/Week Comments No 0 (1 standard drink = 0.6 oz pure alcoho l) Sex Assigned at Date Recorded Female 09/25/2017 1:20 PM CDT documented as of this encounter Plan of Treatment Scheduled Referrals Name Type Priority Associated Diagnoses Order [facility] Internal Outpatient Referral Routine Ex pected: Medicine Video 08/20/2020 facility or phone ([place] [facility]), visit (clinic) Expires: 08/21/2023 documented as of this encounter Results (ABNORMAL) Hemoglobin A1c (08/26/2020 10:02 AM CDT) athologist Signature Hemoglobin A1c, 6.0 (H) 4.2 - 5.6 08/26/2020 [facility] B % 2:25 PM CDT Comment: Hemoglobin A1c values of 5.7-6.4 percent indicate an increased risk for developing diabetes claudia cabral. In diabetic patients, HbA1c goals should be discussed with healthcare provider. Specimen Anatomical Collection Method Collection Time Receive d Time (Source) Location / / Volume Laterality Blood (Blood, 08/26/2020 10:02 08/26/2020 1:29 Venous) AM CDT PM CDT Noemi Lopez M.D., M.P.H. LAB BLOOD ADD-ON Performing Organization Address City/[facility]/ZIP Code Phon e Number [facility]- [address] [place] [address] [facility] [place] [address] System in [place] [address] Pernicious Anemia Hegins (08/26/2020 10:02 AM CDT) athologist Signature Vitamin B12 597 180 - 914 08/27/[address] [facility] Assay, S ng/L 8:57 AM CDT Specimen Anatomical Collection Method Collection Time Receive d Time (Source) Location / / Volume Laterality Blood (Blood, 08/26/2020 10:02 08/27/2020 7:18 Venous) AM CDT AM CDT Noemi Lopez M.D., M.P.H. LAB BLOOD NON ADD-ON Performing Organization Address City/[facility]/ZIP Code Phon e Number [facility] [address] [place] [phone] [facility] [place] [address] Laboratory Medicine and Pathology [address] [place] Folate (08/26/2020 10:02 AM CDT) P athologist Signature Folate, S >20.0 >=4.0 mcg/L 08/26/2020 4:20 AUST PM CDT Comment: Biotin has been identified by the gwen mendez as a potential interfering substance. ??Higher concentr ations of biotin may be found in multivitamins, hair/nail supple ments, and workout supplements. ??If the result does not ma [facility] clinical observations, repeat testing after patient refrains fr om the use of supplements for at least 12 hours. Specimen Anatomical Collection Method Collection Time Receive d Time (Source) Location / / Volume Laterality Blood (Blood, 08/26/2020 10:02 08/26/2020 3:13 Venous) AM CDT PM CDT Noemi Lopez M.D., M.P.H. LAB BLOOD ADD-ON Performing Organization Address City/State/ZIP Code Phon e Number [facility]- [address] [place] [address] [facility] [place] [address] [facility] [address] (ABNORMAL) CBC with Differential, Blood (08/26/2020 10:02 AM CDT) [facility] gist Method Time Signature Hemoglobin 11.7 11.6 [...] Organization Address City/State/ZIP Code Phon e Number [address] [place] [address] [facility] [place] [address] System [address] (ABNORMAL) Comprehensive Metabolic Panel (08/26/2020 10:02 AM [...] eGFR-Black/Afri 47 (L) >=60 08/26/2020 [facility] can [place] mL/min/BSA 2:15 PM CDT Comment: ----ADDITIONAL INFORMATION---- Estimated GFR calculated using the 2009 CKD_EPI creatinine equation. eGFR Non-Black/ 41 (L) >=60 mL/min/BSA 08/26/2020 2:15 PM CDT [facility] [place] Comment: ----ADDITIONAL INFORMATION---- Estimated GFR calculated using [...] Address City/State/ZIP Code Phon e Number [facility]- [address] [place] [address] [place] [address] System in [place] [address] documented in this encounter Visit Diagnoses Diagnosis Arthritis Rheumatoid (HCC) - Primary Diabetes Mellitus Type 2 (HCC) documented in this encounter Care Teams Java Portal Developer Relationship Specialty Start Date End Date Noemi Lopez M.D., M.P.H. PCP - General 12/27/19 12/14/[address] [place] [address] documented as of this encounter
--- OUTSIDE RECORDS SUMMARY | 2022-02-28 01:37 | XMS_ITS | Encounter Summary ---
:1940 Author Organization [facility] Address [address] [place] [address] Care Team Providers Name Role Phone Noemi Lopez M.D., M.P.H. Primary Care Provider [phone] Encounter Details Date Type Department Care Team Description 08/25/2020 Clinical Communication Department of Noemi Lopez M.D., M.P. H. Medicine in [address] [place] [address] 300 [facility] [address] [place], [place] [phone] (Work) [phone] Social History Tobacco Use Types Packs/Day Years Used Date Smoking Tobacco: Never Smokeless Tobacco: Never Alcohol Use Standard Drinks/Week Comments No 0 (1 standard drink = 0.6 oz pure alcoho l) Sex Assigned at Date Recorded Female 09/25/2017 1:20 PM CDT documented as of this encounter Miscellaneous Notes Telephone Encounter - Eun Simon - 08/25/2020 9:38 AM CDT Patient is scheduled for a phone visit with Dr. Lopez on 08/27/20. Telephone Encounter - Nicole Christensen - 08/25/2020 8:52 AM CDT Reason for Communication: Patient called in and scheduled labs and wants to do a follow up visit viaphone. Please call the patient back to schedule the phone visit. Current Can Nursing/Provider leave a detailed message?: n/a Did the patient refuse triage through Nurse line? (for symptom based concerns): n/a Action Needed: Please call patient to schedule a phone follow up visit after labs. Name of Medication (if relevant): n/a documented in this encounter Plan of Treatment Not on filedocumented as of this encounter Visit Diagnoses Not on filedocumented in this encounter Care Teams Hospital Admissions Clerk Relationship Specialty Start Date End Date Noemi Lopez M.D., M.P.H. PCP - General 12/27/19 12/14/20 [address] [place] [address] documented as of this encounter
--- OUTSIDE RECORDS SUMMARY | 2022-02-28 01:37 | XMS_ITS | Encounter Summary ---
:1940 Author Organization [facility] Address [address] [place] [address] Care Team Providers Name Role Phone Noemi Lopez M.D., M.P.H. Primary Care Provider [phone] Reason for Visit Reason Comments Communication Encounter Details Date Type Department Care Team Description 09/01/2020 Clinical Communication Department of Urology Priti Cintron Communication in [facility] michelle Jain, R.N. [address] [place] [phone] Social History Tobacco Use Types Packs/Day Years Used Date Smoking Tobacco: Never Smokeless Tobacco: Never Alcohol Use Standard Drinks/Week Comments No 0 (1 standard drink = 0.6 oz pure alcoho l) Sex Assigned at Date Recorded Female 09/25/2017 1:20 PM CDT documented as of this encounter Miscellaneous Notes Telephone Encounter - Priti Cintron RJeff. - 09/01/2020 8:19 AM CDT Patient called urology stating having burning and frequency. UA/UC orders have been placed. Patient will self cath for sample collection and go to [place] lab. Will look for results. documented in this encounter Plan of Treatment Not on filedocumented as of this encounter Results (ABNORMAL) Bacterial Culture, Aerobic + Susc, Urine (09/01/2020 9:00 AM CDT) Patholo gist Method Time Signature Urine Culture with mixed 09/03/2020 MKTO miriam (A) 8:25 AM CDT Urine Culture KLEBSIELLA PNEUMONIAE 09/03/2020 MKT O 10,000-100,000 cfu/mL 8:25 AM CDT (A) Specimen Anatomical Collection Method Collection Time Receive d Time (Source) Location / / Volume Laterality Urine (Urine, 09/01/2020 9:00 AM 09/02/19 21 2:21 Straight CDT PM CDT Catheter) Comment: Specimen Source Site: Urine Organism Antibiotic Method Susceptibility Klebsiella Ampicillin SUSCEPTIBILITY, >=32 mcg/mL: Res istant pneumoniae REJI (MCG/ML) Klebsiella Ampicillin + Sulbactam SUSCEPTIBILITY, 8 mcg/mL: Susceptible pneumoniae REJI (MCG/ML) Klebsiella Piperacillin + Tazobactam SUSCEPTIBILITY, <=4 [...] pneumoniae Sulfamethoxazole REJI (MCG/ML) Susceptible Verónica Escalante APRN, C.N.P. LAB MICROBIOLOGY - GENE RAL ORDERABLES Performing Organization Address City/State/ZIP Code Phon e Number [facility]- [address] [place] [address] [place] [address] System in [place] [address] [place] [address] (ABNORMAL) Urinalysis with Microscopic if Indicated (09/01/2020 9:00 AM CDT) P athologist Signature Source Catheter 09/01/2020 FB60 9:47 AM CDT Clarity Cloudy (A) Clear 09/01/2020 FB60 9:49 AM CDT Color Yellow 09/01/2020 FB60 9:49 AM CDT Comment: ----REFERENCE VALUE---- Colorless Yellow Janeth Blood Trace (A) Negative 09/01/2020 9:49 AM CDT FB60 Nitrite Positive (A) Negative 09/01/2020 9:49 AM CDT FB60 Leukocyte Esterase Large (A) Negative 09/01/2020 9:49 AM CD T FB60 Protein 30 (A) mg/dL 09/01/2020 9:49 AM CDT FB60 Comment: ----REFERENCE VALUE---- Negative Trace Glucose Negative Negative mg/dL 09/01/2020 9:49 AM CDT FB 60 Ketones, QI(U) Negative Negative mg/dL 09/01/2020 9:49 AM C DT FB60 Bilirubin Negative Negative 09/01/2020 9:49 AM CDT FB60 pH 8.5 (A) 5.0 - 8.0 09/01/2020 9:49 AM CDT FB60 Specific Norton 1.015 1.001 - 1.035 09/01/2020 9:49 AM CDT FB60 Urobilinogen 0.2 0.2 - 1.0 mg/dL 09/01/2020 9:49 AM CD T FB60 Specimen Anatomical Collection Method Collection Time Receive d Time (Source) Location / / Volume Laterality Urine (Urine, 09/01/2020 9:00 AM 09/02/19 9:40 Straight CDT AM CDT Catheter) Verónica Escalante APRN, C.N.P. LAB URINE ORDERABLES Performing Organization Address City/State/ZIP Code Phon e Number [facility]- [address] [facility] [address] [place] [address] [facility] [address] [place] [address] System in [place] [address] documented in this encounter Visit Diagnoses Diagnosis Symptom Urinary - Primary documented in this encounter Care Teams Value Analysis Coordinator Relationship Specialty Start Date End Date Noemi Lopez M.D., M.P.H. PCP - General 12/27/19 12/14/[address] [place] [address] documented as of this encounter
--- OUTSIDE RECORDS SUMMARY | 2022-02-28 01:37 | XMS_ITS | Encounter Summary ---
:1940 Author Organization [facility] Address [address] [place] [address] Care Team Providers Name Role Phone Noemi Lopez M.D., M.P.H. Primary Care Provider [phone] Encounter Details Date Type Department Care Team Description 03/04/2020 Clinical Communication Department of Noemi Lopez M.D., M.P. H. Medicine in [address] [place] [address] 300 [facility] [address] [place], [place] [phone] (Work) [phone] Social History Tobacco Use Types Packs/Day Years [...] on filedocumented in this encounter Care Teams Bottom Buffer Relationship Specialty Start Date End Date Noemi Lopez M.D., M.P.H. PCP - General 12/27/19 12/14/[address] [place] [phone] documented as of this encounter
--- OUTSIDE RECORDS SUMMARY | 2022-02-28 01:37 | XMS_ITS | Encounter Summary ---
:1940 Author Organization [facility] Address [address] [place] [address] Care Team Providers Name Role Phone Noemi Lopez M.D., M.P.H. Primary Care Provider [phone] Encounter Details Date Type Department Care Team Description 04/21/2020 Orders Only [facility] PCP [facility] Sa jerad Santizo M.D. [address] [place] [phone] (Wo rk) Social History Tobacco [...] on filedocumented in this encounter Care Teams Educational Aid Relationship Specialty Start Date End Date Noemi Lopez M.D., M.P.H. PCP - General 12/27/19 12/14/[address] [place] [phone] documented as of this encounter
--- OUTSIDE RECORDS SUMMARY | 2022-02-28 01:37 | XMS_ITS | Encounter Summary ---
:1940 Author Organization [facility] Address [address] [place] [address] Care Team Providers Name Role Phone Noemi Lopez M.D., M.P.H. Primary Care Provider [phone] Reason for Visit Reason Comments Med Refill Encounter Details Date Type Department Care Team Description 10/30/2020 Refill Video Medicine Department in Lluvia Lopez M.D., Med Refill [place], [place] M.P.H. 300 [facility] [address] [place] [address] [place] [phone] (Wo rk) Social History Tobacco Use Types [...] on filedocumented in this encounter Care Teams Dining Services Manager Relationship Specialty Start Date End Date Noemi Lopez M.D., M.P.H. PCP - General 12/27/19 12/14/20 [address] [place] [phone] documented as of this encounter
--- OUTSIDE RECORDS SUMMARY | 2022-02-28 01:37 | XMS_ITS | Encounter Summary ---
:1940 Author Organization [facility] Address [address] [place] [address] Care Team Providers Name Role Phone Noemi Lopez M.D., M.P.H. Primary Care Provider [phone] Reason for Visit Outpatient (Routine) - Closed Specialty Diagnoses / Procedures Referred By Contact Refer red To Contact Endocrinology Diagnoses Osteoporosis Noemi Lopez, [facility] Procedures Endocrinology - Osteoporosis eConsult Estella, M.P.H. [address] [place] [phone] Referral ID Status Reason Start Date Expiration Date Visits Requ ested Visits Authorized [id number] Closed 10/01/2020 10/01/2021 1 1 Encounter Details Date Type Department Care Team Description 10/09/2020 Internal E-Consult Division of Endocrinology Gage Cannon, Osteoporosis in [facility] herve [place] [address] [facility] [address] [place] [address] [place], [place] [phone] Social History Tobacco Use Types Packs/Day Years Used Date Smoking Tobacco: Never Smokeless Tobacco: Never Alcohol Use Standard Drinks/Week Comments No 0 (1 standard drink = 0.6 oz pure alcoho l) Sex Assigned at Date Recorded Female 09/25/2017 1:20 PM CDT documented as of this encounter Consult Notes Lewis Cannon M.D. - 10/09/2020 11:45 AM CDT SUBJECTIVE REFERRAL SOURCE Noemi Lopez MD, Division of Community Internal Medicine. This is an e-Consultation. REASON FOR CONSULT Moderate postmenopausal osteopenia, without recent fractures. HISTORY OF PRESENT ILLNESS The patient is an 79-year-old female referred for evaluation and management of moderate postmenopausal osteopenia, without recent fractures. The patient's most recent bone density test at home at [facility] on October 01, 2020, showed her lowest T-score to be -2.1 at her right total hip site, diagnostic of moderate osteopenia. Her remaining hip T-scores ranged between - 1.4 and -1.8, in the mildly to moderately osteopenic range. Her L1-L4 lumbar spine T-score was +0.1, diagnostic of normal bone density. Comparison to her previous values there on October 16, 2018, showed that her left total hip bone density increased by 1.7%, right total hip bone density decreased by 5.9%, and lumbar spine bone density increased by 6.5%. The decrease at her right total hip site and the increase at her lumbar spine were both statistically significant, indicating mild right hip bone loss with increased lumbar spine bone density. The smaller change at her left total hip site was nonsignificant and, therefore, stable. The patient's L1-L4 lumbar spine trabecular bone score was 1.368, above the upper limit of the normal range for women her age. The patient's FRAX 10-year estimate of absolute hip fracture risk was 4.8%, with 10-year absolute risk of major osteoporotic fracture 15.4%. U.[place]. National Osteoporosis guidelines recommend treatment ifrisk of hip fracture is greater than 3.0%, or risk of major osteoporotic fracture greater than 20.0%. The patient has not had recent low-trauma fractures by report. She previously underwent right total knee arthroplasty, presumably for osteoarthritis. She has not had recent spine films to document asymptomatic vertebral compression fractures or rib fractures. The patient has continued alendronate 35 mg once a week since October 16, 2018, without side effects. Fosamax is safe to take if EGFR is greater than 35 mL/minute. The patient currently takes calcium carbonate + D unknown doses one tablet each day, with one multivitamin each day. She also takes prednisone 2 mg a day, with hydroxychloroquine 200 mg two times a day, with methotrexate 2.5 mg once a week. Her serum 25-hydroxyvitamin D has not been checked recently. The patient's laboratory studies on August 26, 2020, showed low-normal serum calcium at 8.8 mg/dL, phosphorus not checked, creatinine increased at 1.25 mg/dL, eGFR 41 mL/minute, and albumin 4.0 g/dL. Her parathyroid hormone and TSH levels were not checked. The patient's family history is apparently unremarkable for osteoporosis, other metabolic bone disease, calcium-containing kidney stones, blue sclerae, or hyperextensible joints. She has not previouslyhad calcium-containing kidney stones. No previous treatment with high-dose glucocorticoid therapy, anti- seizure medication, or over-replacement with L-thyroxine therapy. ASSESSMENT / PLAN #1 Moderate postmenopausal osteopenia, without recent fractures The patient has been treated with alendronate 35 mg once a week since October 16, 2018. Her left total hip bone density has increased by 1.7%, right total hip bone density decreased by 5.9%, and lumbar spine bone density increased by 6.5%. Given that her current lowest T-score is only -2.1, it appears that Fosamax has increased her bone density at her left total hip and lumbar spine sites. It is not clear why her right total hip bone density decreased, but sometimes this is due to right hip pain or right leg pain causing difficulty with weightbearing. Right hip or leg pain is not mentioned in her recent clinical notes. Given her current findings, and given her current [facility] eGFR of 41 mL/minute, noreason not to continue Fosamax and to increase this to 70 mg once a week. Normally Fosamax should becontinued for five years before taking a 3-5 year drug holiday. [facility] uses the Cockcroft-Gault equation to estimate eGFR to my knowledge, whereas the [facility] uses the MDRD or CKD-EPI equation, which not infrequently give discrepant results. I usually rely on the [facility] estimated GFR for clinical purposes, but the [facility] uses the MDRD equation to my knowledge. If Fosamax is felt to be unsafe for any reason, her next best option in this range of stage 3 chronic kidney disease would be Prolia 60 mg by subcutaneous injection twice a year. She is advised to maintain total daily calcium intake at 1200 mg elemental calcium, with vitamin D intake of at least 800 International Units each day. Presumably she is receiving these doses through her unspecified calcium carbonate + D and multivitamin doses. Her serum 25-hydroxyvitamin D should be c hecked with her next blood draw to make sure that this is in the optimal range of 20 to 50 ng/mL. She is advised to continue to use care in situations likely to provoke falls. She will be cautious when lifting more than 15-20 pounds. Walking for exercise 3-4 days each week for 30-45 minutes each day should help protect her skeletal integrity. Her bone density test should be rechecked in two years. No additional recommendations for now. Lewis Cannon M.D. CT CT Job ID: [id number] documented in this encounter Plan of Treatment Not on filedocumented as of this encounter Visit Diagnoses Diagnosis Osteoporosis documented in this encounter Care Teams Riveter Hand Relationship Specialty Start Date End Date Noemi Lopez M.D., M.P.H. PCP - General 12/27/19 12/14/20 [address] [place] [address] documented as of this encounter
--- OUTSIDE RECORDS SUMMARY | 2022-02-28 01:37 | XMS_ITS | Encounter Summary ---
:1940 Author Organization [facility] Address [address] [place] [address] Care Team Providers Name Role Phone Noemi Lopez M.D., M.P.H. Primary Care Provider [phone] Reason for Referral Outpatient (Routine) - Closed Specialty Diagnoses / Procedures Referred By Contact Refer red To Contact Diagnoses Retention Urinary Infection Urinary Tract Recurrent Verónica Escalante APRN, [facility] Region Procedures US Kidneys Bilateral with Bladder C.N.P. [address] [place] [address] Referral ID Status Reason Start Date Expiration Date Visits Requ ested Visits Authorized [id number] Closed 03/16/2020 03/16/2021 1 1 utpatient (Routine) - Closed Specialty Diagnoses / Procedures Referred By Contact Refer red To Contact Urology Verónica Escalante APRN, C.N.P. [facility] Region [address] [place] [phone] Referral ID Status Reason Start Date Expiration Date Visits Requ ested Visits Authorized [id number] Closed 03/16/2020 03/16/2021 1 1 OON ARTIST Reason for Visit Reason Comments Follow-up 9 month cathing 3 times a da y Outpatient (Routine) - Closed Specialty Diagnoses / Procedures Referred By Contact Refer red To Contact Urology Verónica Escalante APRN C.N.P. [facility] [address] [place] [phone] Referral ID Status Reason Start Date Expiration Date Visits Requ ested Visits Authorized [id number] Closed 01/21/2019 01/21/2020 1 1 Encounter Details Date Type Department Care Team Description 03/16/2020 Office Visit Department of Urology Verónica Escalante, Retention Urinary (Primary Dx); in [place] [facility] Infection Urinary Tract Recurrent [place] [address] [place] [address] [place] [address] [phone] Social History Tobacco Use Types Packs/Day Years Used Date Smoking Tobacco: Never Smokeless Tobacco: Never Alcohol Use Standard Drinks/Week Comments No 0 (1 standard drink = 0.6 oz pure alcoho l) Sex Assigned at Date Recorded Female 09/25/2017 1:20 PM CDT documented as of this encounter Last Filed Vital Signs Vital Sign Reading Time Taken Comments Blood Pressure - - Pulse 64 03/16/2020 3:19 PM CARTOON ARTIST Temperature 36.4 ??C (97.5 ??F) 03/16/2020 3:19 PM CARTOON ARTIST Respiratory Rate - - Oxygen Saturation 98% 03/16/2020 3:19 PM CARTOON ARTIST Inhaled Oxygen Concentration - - Weight - - Height - - Body Mass Index - - documented in this encounter Progress Notes Verónica Escalante APRN, C.N.P. - 03/16/2020 3:30 PM CST SUBJECTIVE CHIEF COMPLAINT/REASON FOR VISIT Chronic Urinary Retention HISTORY OF PRESENT ILLNESS Zoe is a pleasant 79-year-old female here today for follow-up for chronic urinary retention. She had difficulty with a cluster of urinary tract infections this fall, she does feel that her infectionsis completely resolved at this time. Her driver medic has been titrating her prednisone and at 1 point she was requiring catheterization 4 or 5 times daily. We have increased her catheterization to 4times daily. She rarely urinates on her own, she typically caths 500-800 mL of urine each day. She does not get up in the night to urinate. She does have an InterStim in place, this is working well. She keeps it on program 3 at 2.9 and has not had any difficulties with this. She can feel some tapping or fluttering at times. The following portions of the patient's history were reviewed and updated as appropriate: allergies,current medications, family history, medical history, social history, surgical history and problem list. REVIEW OF SYSTEMS Gastrointestinal: Negative for constipation and diarrhea. Genitourinary: Positive for difficulty urinating. Negative for incontinence, pain with urination, hematuria, urgency and frequent urination. OBJECTIVE Vitals: 03/16/20 1519 Pulse: 64 Temp: 36.4 ??C SpO2: 98% TempSrc: Temporal PHYSICAL EXAM [...] edema or ulcerations. ASSESSMENT / PLAN #1 Chronic Urinary Retention Continue intermittent catheterization 4 times daily. If she has need for more catheters she will contact us. She will also contact us if she has signs and symptoms of urinary tract infection. She is due for upper tract imaging, renal ultrasound and abdominal x-ray ordered for 1 year from now. We will follow up in 1 year, sooner if needed. Signed by: Veórnica Escalante APRN, C.N.P. 03/16/2020 3:19 PM CARTOON ARTIST OON ARTIST documented in this encounter Plan of Treatment Scheduled Referrals Name Type Priority Associated Diagnoses Order S [facility] Urology office Outpatient Referral Routine Expect ed: visit (clinic) 03/16/2021 (Approximate), Expires: 03/16/2023 documented as of this encounter Results DX Abdomen 1 View (03/22/2021 2:10 PM CARTOON ARTIST) Anatomical Region Laterality Modality Abdomen, Abdominal RST LOS, Abdominal ARZ LOS, N/A Digital Radiography Abdominal FLA LOS Specimen (Source) Anatomical Collection Method Collection Time Re ceived Time Location / / Volume Laterality 03/22/2021 3:57 PM CARTOON ARTIST Impressions 03/22/2021 4:03 PM CARTOON ARTIST 1. Implanted electronic generator device projected over the right iliac wing with the lead tip projected over the low er right sacrum. 2. 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 Narrative 03/22/2021 4:03 PM CARTOON ARTIST EXAM: DX ABDOMEN 1 VIEW COMPARISON: Lumbar [...] spine and both sacroiliac joints. Verónica Escalante APRN, C.N.P. IMG DIAGNOSTIC IMAGING PROCEDURES US Kidneys Bilateral with Bladder (03/22/2021 1:52 PM CARTOON ARTIST) Anatomical Region Laterality Modality Abdomen, Renal, Ultrasound RST LOS, Ultrasound ARZ LOS, Bila teral Ultrasound Ultrasound FLA LOS Specimen (Source) Anatomical Collection Method Collection Time Re ceived Time Location / / Volume Laterality 03/22/2021 2:11 PM CARTOON ARTIST Impressions 03/22/2021 2:14 PM CARTOON ARTIST No hydronephrosis. Narrative 03/22/2021 2:14 PM CARTOON ARTIST EXAM: US KIDNEYS BILATERAL WITH BLADDER COMPARISON: [...] Urinary - Primary Infection Urinary Tract Recurrent Retention Urinary Infection Urinary Tract Recurrent Retention Urinary Infection Urinary Tract Recurrent documented in this encounter Care Teams Jogger Operator Relationship Specialty Start Date End Date Noemi Lopez M.D., M.P.H. PCP - General 12/27/19 12/14/[address] [place] [address] documented as of this encounter
--- OUTSIDE RECORDS SUMMARY | 2022-02-28 01:37 | XMS_ITS | Encounter Summary ---
:1940 Author Organization [facility] Address [address] [place] [address] Care Team Providers Name Role Phone Noemi Lopez M.D., M.P.H. Primary Care Provider [phone] Encounter Details Date Type Department Care Team Description 09/01/2020 Hospital Encounter Department of Verónica Escalante Urinary Laboratory Medicine [facility] [place] C.N ReginaPRegina in [facility] [address] [place] [address] [address] [facility] [address] [place], [place] [phone] [address] (Work) [phone] Social History Tobacco Use Types Packs/Day Years [...] Procedure Name Priority Date/Time Associated Comments Diagnosis URINALYSIS WITH Routine 09/01/2020 9:00 AM Symptom Urinary Res ults for this MICROSCOPIC IF CDT procedure are in INDICATED, U the results section. AR URINALYSIS AUTO WO Routine 09/01/2020 9:00 AM Results for this MICRO CDT procedure are i n the results section. BACTERIAL CULTURE, Routine 09/01/2020 9:00 AM Symptom Urinary Results for this AEROBIC + SUSC, URINE CDT proced ure are in the results section. documented in this encounter Results (ABNORMAL) Microscopic Manual (09/01/2020 9:00 AM CDT) Analysis Performed At Patho logist Time Signature White Blood 41-50 (A) /hpf 09/01/2020 FB60 Cells 9:54 AM CDT Comment: ----REFERENCE VALUE---- Males: 0-3 Females: 0-10 Unknown: 0-10 Red Blood Cells 3-10 (A) 0 - 2 /hpf 09/01/2020 9:54 AM CDT FB60 Dysmorphic Red Blood Cells <=25 <=25 % 09/01/2020 9: 54 AM CDT FB60 Squamous Cells Occ-3 /hpf 09/01/2020 9:54 AM CDT FB 60 Bacteria Present (A) None Seen 09/01/2020 9:54 AM CDT FB60 Specimen Anatomical Collection Method Collection Time Receive d Time (Source) Location / / Volume Laterality Urine 09/01/2020 9:00 AM 9:40 CDT AM CDT Verónica Escalante APRN, C.N.P. LAB URINE ORDERABLES Performing Organization Address City/State/ZIP Code Phon e Number [facility] [address] [place] [address] [facility] FB60 [facility] [place] [address] System in [place] [address] (ABNORMAL) Bacterial Culture, Aerobic + Susc, Urine (09/01/2020 9:00 AM CDT) [facility] Method Time Signature Urine Culture with mixed [...] Escalante APRN, C.N.P. LAB MICROBIOLOGY - GENE [facility] ORDERABLES Performing Organization Address City/State/ZIP Code Phon e Number [facility]- [address] [place] [address] [place] [address] System [address] (ABNORMAL) Urinalysis with Microscopic if Indicated (09/01/2020 [...] 8.0 09/01/2020 9:49 AM CDT FB60 Specific [place] 1.015 1.001 - 1.035 09/01/2020 9:49 AM CDT FB60 Urobilinogen 0.2 0.2 - 1.0 mg/dL 09/01/2020 9:49 AM CD T FB60 Specimen Anatomical Collection Method Collection Time Receive d Time (Source) Location / / Volume Laterality Urine (Urine, 09/01/2020 9:00 AM 09/02/19 9:40 Straight CDT AM CDT Catheter) Verónica Escalante APRN, C.N.P. LAB URINE ORDERABLES Performing Organization Address City/State/ZIP Code Phon e Number [facility]- [address] [place], [place] [id number] [place] [address] LAB [address] [place] [address] System in [place] [address] documented in this encounter Visit Diagnoses Diagnosis Symptom Urinary documented in this encounter Care Teams Clerical Receptionist Relationship Specialty Start Date End Date Noemi Lopez M.D., M.P.H. PCP - General 12/27/19 12/14/[address] [place] [address] documented as of this encounter
--- OUTSIDE RECORDS SUMMARY | 2022-02-28 01:37 | XMS_ITS | Encounter Summary ---
:1940 Author Organization [facility] Address [address] [place] [address] Care Team Providers Name Role Phone Noemi Lopez M.D., M.P.H. Primary Care Provider [phone] Reason for Referral Outpatient (Routine) - Closed Specialty Diagnoses / Procedures Referred By Contact Refer red To Contact Diagnoses Dyspnea On Exertion Noemi Lopez M.D., [facility] Procedures ECG 12 Lead M.P.H. [address] [place] [address] Referral ID Status Reason Start Date Expiration Date Visits Requ ested Visits Authorized [id number] Closed 12/14/2020 12/14/2021 1 1 Reason for Visit Reason Comments Results would like to go over bone d ensity results. Appointment Request (Routine) - Closed Specialty Diagnoses / Procedures Referred By Contact Refer red To Contact Community Internal Medicine Referral ID Status Reason Start Date Expiration Date Visits Requ ested Visits Authorized [id number] Closed 12/14/2020 12/14/2021 1 1 Encounter Details Date Type Department Care Team Description 12/14/2020 Telemedicine Video Medicine Noemi Lopez Pain Low Back Unspecified (Primary Dx); Department in Estella Lombardi, M.P.H. Infection Urinary Tract Recurrent; [place], [place] [address] [facility] Retention Urinary; [address] [place], [place] Dyspnea On Exertion; [place] [address] Thrombosis Deep Vein Personal History [id number] Social History Tobacco Use Types Packs/Day [...] Sign Reading Time Taken Comments Blood Pressure 126/74 12/14/2020 10:09 AM CDT Pulse 69 12/14/2020 10:09 AM CDT Temperature 36.4 ??C (97.5 ??F) 12/14/2020 10:09 AM CDT Respiratory Rate 16 12/14/2020 10:09 AM CDT Oxygen Saturation - - Inhaled Oxygen Concentration - - Weight 65 kg (143 lb 4.8 oz) 12/14/2020 10:09 AM CDT Height 157 cm (5' 1.81) 12/14/2020 10:09 AM CDT Body Mass Index 26.37 12/14/2020 10:09 AM CDT documented in this encounter Progress Notes Noemi Lopez M.D., M.P.H. - 12/14/2020 10:15 AM CDT SUBJECTIVE CHIEF COMPLAINT / REASON FOR VISIT Vanessa Andino is a 80 y.o. who presents for Results (would like to go over bone density results.). HISTORY OF PRESENT ILLNESS #1 Back Pain She reports several months of right low back pain. She is down to prednisone 1mg. She thinks this has gotten worse as the prednisone has tapered. The pain is worse with walking and bending over. This is making it hard to do the gardening. She has tried tylenol with minimal benefit and pain patches. She isn't interested in physical therapy. She does home exercises daily. She isn't interested in acupuncture. #2 Bladder discomfort Going to the restroom is also difficult as she is only allowed to self cath 4x/day (medicare won't cover more than 4 per day). She is having increased urinary urgency. She has been drinking more water since April. No blood in the urine. She needs to catheterize 6x/day to avoid this discomfort. #3 Osteoporosis Using Fosamax 70mg without problem. OBJECTIVE BP 126/74 (BP Location: Left arm, Patient Position: Sitting, Cuff Size: Regular) Pulse 69 Temp 36.4 ??C (Temporal) Resp 16 Ht 157 cm Wt 65 kg No BMI 26.37 kg/m?? ASSESSMENT / PLAN #1 Pain Low Back She has chronic low back pain, currently managed with daily exercise, tylenol 1000mg/day, and lidocaine patches. She defers PT, acupuncture, and advanced interventions such as injections. Xray today did not show any fractures or lytic lesions. --trial of voltaren gel to low back --follow up for in person visit with musculoskeletal exam --consider facet joint injections (can refer for this without MRI, can discuss with spine clinic after exam to get input on recommended joint to target) --consider PT, acupuncture, restorative care technician, massage when pt willing - DX Lumbar Spine 2-3 Views; Future; Expected date: 12/14/2020 #2 Infection Urinary Tract Recurrent #3 Retention Urinary She has a medical need to catheterize 6x/day to prevent UTIs, to prevent kidney failure related to urinary retention, and to prevent discomfort related to urinary retention. I have reordered the supplies and referenced the medical need. #4 Osteoporosis Continue fosamax 70mg weekly for 3-5 years then stop Other orders - Return to provider in another specialty; Future; Expected date: 12/14/2020 - [facility] [place] supplies; Intermittent; Catheters; Coloplast Self-Cath straight tip, General (non-product); Female Coloplast Self-Cath straight tip, luer end 14 FR/6 in A4351 (240); Every 4 hours; 30 days; 180; sterile water soluble lubricant A4402... - DME Medical Justification: Urological supplies BILLIN minutes spent in a combination of the following activities: visit with the patient; reviewing records; interpreting test results; discussing plans with the patient and/or family; discussingand coordinating care with other team members. documented in this encounter Plan of Treatment Not on filedocumented as of this encounter Results ECG 12 Lead (12/30/2020 9:31 AM CDT) P athologist Signature Ventricular Rate 59 BPM MUSE ECG/Min SC Interval 230 ms MUSE QRSD Interval 102 ms MUSE QT Interval 468 ms MUSE QTC Interval 463 ms MUSE P [place] 82 degrees MUSE R [place] 54 degrees MUSE T Wave [place] 30 degrees MUSE Specimen Anatomical Collection Method [...] Code Phon e Number MUSE MUSE NA DX Lumbar Spine 2-3 Views (12/14/2020 11:51 AM CDT) Anatomical Region Laterality Modality Lumbar Spine, Musculoskeletal RST LOS, Neuroradiology N/A Digital Radiography ARZ LOS, Muskuloskeletal FLA LOS Specimen (Source) Anatomical Collection Method Collection Time Re ceived Time Location / / Volume Laterality 12/14/2020 1:38 PM CDT Impressions 12/14/2020 1:39 PM CDT Osteopenia. Thoracolumbar curve. Multilevel lumbar degenerative disk disease with associated hypertrophi c changes, facet arthropathy and low-grade subluxations, most marked at L 4 on L5. Degenerative changes both SI joints. Sacral stimulation device. Narrative 12/14/2020 1:39 PM CDT EXAM: ??DX LUMBAR SPINE 2-3 VIEWS Procedure Note Riley Drummond M.D. - 12/14/2020Format ting of this note might be different from the original. EXAM: DX LUMBAR SPINE 2-3 VIEWS IMPRESSION: Osteopenia. Thoracolumbar curve. Multile birgit lumbar degenerative disk disease with associated hypertrophi c changes, facet arthropathy and low-grade subluxations, most marked at L 4 on L5. Degenerative changes both SI joints. Sacral stimulation device. Noemi Lopez M.D., M.P.H. IMG DIAGNOSTIC IMAGING PROCEDURES documented in this encounter Visit Diagnoses Diagnosis Pain Low Back Unspecified - Primary Infection Urinary Tract Recurrent Retention Urinary Dyspnea On Exertion Thrombosis Deep Vein Personal History Pain Low Back Unspecified Dyspnea On Exertion documented in this encounter Care Teams Scrap Hooker Relationship Specialty Start Date End Date Noemi Lopez M.D., M.P.H. PCP - General 12/27/19 12/14/[address] [place] [address] documented as of this encounter
--- OUTSIDE RECORDS SUMMARY | 2022-02-28 01:37 | XMS_ITS | Encounter Summary ---
:1940 Author Organization [facility] Address [address] [place] [address] Care Team Providers Name Role Phone Neomi Lopez M.D., M.P.H. Primary Care Provider [phone] Encounter Details Date Type Department Care Team Description 05/12/2020 Clinical Communication Department of Urology Ashely Escalante in Ivan Baldwin APRN, C.N.P. [place] [address] [place] [phone] Social History Tobacco Use Types Packs/Day Years Used Date Smoking Tobacco: Never Smokeless Tobacco: Never Alcohol Use Standard Drinks/Week Comments No 0 (1 standard drink = 0.6 oz pure alcoho l) Sex Assigned at Date Recorded Female 09/25/2017 1:20 PM CDT documented as of this encounter Miscellaneous Notes Telephone Encounter - Verónica Escalante APRN, C.N.P. - 05/12/2020 4:17 PM CARBONATING STONE CLEANER Noted. ONATING STONE CLEANER Telephone Encounter - Aliza England L.P.N. - 05/12/2020 2:55 PM CST Called patient today and asked her about her concerns. Patient stated she just finished with a infection and antibiotics a couple of weeks ago and is having burning with urination at catheter times. Patient is self cathing 5-6 times a day and is normally doing it 4 times a day. Patient stated she does not have any odor or blood in urine. Patient stated her urine is cloudy thisafternoon. No pain in abdomen or back. Patient has been drinking plenty of water and cranberry juice. Patient also stated she adjusted her Interstim as it was too high and now it is not working well. Nurse stated she will speak with Verónica Escalante for any recommendations. Nurse stated she will schedule patient with Verónica tomorrow morning to check her Interstim and maycollect a urine at time of visit. Patient is aware of this and will bring her controller for her Interstim. Nurse will call patient is there is anything changing from the current plan of care. Patient had no further questions at time of call end. ONATING STONE CLEANER Telephone Encounter - Na Ross - 05/12/2020 8:19 AM CST Reason for Communication: Patient calling, is having burning pain from using catheter. Is also having problems with her battery. Current Can Nursing/Provider leave a detailed message?: yes Did the patient refuse triage through Nurse line? (for symptom based concerns): Action Needed: Name of Medication (if relevant): ONATING STONE CLEANER documented in this encounter Plan of Treatment Not on filedocumented as of this encounter Visit Diagnoses Not on filedocumented in this encounter Care Teams Data Migration Lead Relationship Specialty Start Date End Date Noemi Lopez M.D., M.P.H. PCP - General 12/27/19 12/14/20 [address] [place] [address] documented as of this encounter
--- OUTSIDE RECORDS SUMMARY | 2022-02-28 01:37 | XMS_ITS | Encounter Summary ---
:1940 Author Organization [facility] Address [address] [place] [address] Care Team Providers Name Role Phone Noemi Lopez M.D., M.P.H. Primary Care Provider [phone] Encounter Details Date Type Department Care Team Description 12/14/2020 Hospital Encounter Department of Noemi Lopez Pain Low Back Radiology in Estella Lombardi, M.P.H. Unspecified [place], [address] [place] [address] [address] [facility] [address] [place], [place] [phone] [address] (Work) [phone] Social History Tobacco Use Types Packs/Day Years [...] Diagnosis DX LUMBAR SPINE RAD - Routine 12/14/2020 11:51 Pain Low Back Result s for this 2-3 VIEWS (most inpatients AM CDT Unspecified procedure a re in and all the results outpatients) section. documented in this encounter Results DX Lumbar Spine 2-3 Views (12/14/2020 11:51 [...] Visit Diagnoses Diagnosis Pain Low Back Unspecified documented in this encounter Care Teams Blender Machine Operator Relationship Specialty Start Date End Date Noemi Lopez M.D., M.P.H. PCP - General 12/27/19 12/14/[address] [place] [address] documented as of this encounter
--- OUTSIDE RECORDS SUMMARY | 2022-02-28 01:37 | XMS_ITS | Encounter Summary ---
:1940 Author Organization [facility] Address [address] [place] [address] Care Team Providers Name Role Phone Noemi Lopez M.D., M.P.H. Primary Care Provider Reason for Visit Reason Comments Knee Pain Left Outpatient (Routine) - Closed Specialty Diagnoses / Procedures Referred By Referred To Contact Contact Physical Medicine and Diagnoses Primary Osteoarthritis Knee Left Gurjit Batista [facility] Rehabilitation Danielle Ny M.D. [address] [place] [address] Referral ID Status Reason Start Date Expiration Date Visits Requ ested Visits Authorized [id number] Closed 01/01/2020 12/31/2020 1 1 Encounter Details Date Type Department Care Team Description 01/06/2020 Comprehensive Visit Department of Johnathan Lowery, Pain K nee Left (Primary Dx); Physical Medicine D.O. Primary Osteoarthritis Knee Left; and Rehabilitation [id number] [address] eg; [place] Thrombosis Deep Vein Personal History [place], [place] [address] [facility] [address] [place], [place] [phone] [address] (Work) [phone] Social History Tobacco Use Types Packs/Day Years Used Date Smoking Tobacco: Never Smokeless Tobacco: Never Alcohol Use Standard Drinks/Week Comments No 0 (1 standard drink = 0.6 oz pure alcoho l) Sex Assigned at Date Recorded Female 09/25/2017 1:20 PM CDT documented as of this encounter Last Filed Vital Signs Vital Sign Reading Time Taken Comments Blood Pressure 145/48 01/06/2020 11:46 AM CDT Pulse 59 01/06/2020 11:46 AM CDT Temperature 36.4 ??C (97.5 ??F) 01/06/2020 11:46 AM CDT Respiratory Rate - - Oxygen Saturation - - Inhaled Oxygen Concentration - - Weight 66.5 kg (146 lb 9.7 oz) 01/06/2020 11:46 AM CDT Height - - Body Mass Index 26.98 10/26/2018 2:05 PM CDT documented in this encounter Patient Instructions Patient InstructionsJohnathan Lowery D.O. - 01/06/2020 11:30 AM CDT Follow-Up Plan: __ Prescription medication(s): None __ Sport/school/work note __ Referrals/labs/imaging/procedures/DME (orders): None __ Follow-up phone call/portal message: If interested in aqua therapy, physical therapy, repeat or further injection therapy, etc as discussed __ Follow-up clinic appointment: As needed for further evaluation/medical care __ Scheduling desk Please feel free to call ([phone]) or message me on the [facility] Patient Portal if you have any questions related to your medical care/treatment (clinic days - Monday-). Call Patient Account Services ( ) if you have questions regarding your account. Your feedback is very important to us. You may soon receive either a paper survey by mail or an electronic survey. Please complete this survey if you are able as your input provides us information to improve the services we provide to you and other patients at [facility]. I want to thank you for coming into the clinic today. I enjoyed meeting you and am happy that you have trusted us to provide medical care for you today and beyond. I take pride in getting to know to mypatients and understanding their medical history and conditions. This allows me to work with each individual patient on designing an individualized treatment plan to provide the best medical care to optimize improving pain and/or function. As a PM&R (physical medicine & rehabilitation) and sports medicine physician/lay out machine operator (expert in bone, joint, ligament, tendon, muscle, and nerve), my main goal is to help patients like you restore movement and function so you can remain as active as possible. I treat non-surgical/non-operative musculoskeletal, orthopedic, and sports medicine conditions including, but not limited to: ??? Neck pain (disc disease/arthritis, herniated disc, spinal stenosis, strain) ??? Shoulder pain (rotator cuff tears, tendonitis, bursitis, frozen shoulder, impingement) ??? Elbow pain (tennis elbow, golfers elbow, bursitis) ??? Wrist/hand pain (tendonitis, trigger finger, ganglion cysts) ??? Low back pain (disc disease/arthritis, herniated disc, spinal stenosis, strain) ??? Hip pain (bursitis, tendonitis, piriformis syndrome, impingement, strain) ??? Foot/ankle pain (sprains, tendonitis, plantar fasciitis, mo splints) ??? Fractures (stress fractures, compression fractures) ??? Arthritis (knee, shoulder, hip, wrist/hand, elbow, foot/ankle) ??? Adult and pediatric sports medicine ??? Sports-related concussions ??? Ligament, joint and tendon injuries, conditions and disorders ??? Nerve disorders (sciatica, carpal tunnel, tarsal tunnel) Advanced technology that I use to treat patients like yourself includes musculoskeletal ultrasound, steroid injections, platelet rich plasma (PRP) injections, and TENEX, that have benefits that includeimproving pain and providing faster recovery times. For more information about the services I offer or for my full profile, I invite you to visit [email or web address]. If you are in need of a clinic appointment for any of the additional services I provide, please call to schedule an appointment at your convenience. documented in this encounter Consult Notes Johnathan Lowery D.O. - 01/06/2020 11:30 AM CDT Physical Medicine & Rehabilitation Clinic Note Vanessa Andino (Vanessa) is a 79 y.o. female who is seen in consultation [id number] at the request of Joey Matias* for evaluation of left knee pain/swelling/bruising. SUBJECTIVE Symptoms began approximately 1 month ago, came on gradually, and have been staying about the same. Does note that she fell approximately 2 years ago with bruising/discoloration noted at that time of the left lower extremity. Has had left knee intra-articular corticosteroid injections completed in July 2017, May 2017, and most recently in February 2019 with improvement of symptoms for a couple monthsper the patient with orthopedic surgery. Currently notes diffuse left knee pain that is worse in the morning, with stairs, with kneeling, in the evening, when in bed at night, and with walking and better with rest, heat, ice, and medication use which has included Tylenol as needed. Denies any weakness of the lower extremities. Notes bruising/swelling of the left leg. Denies any fevers or chills. Denies any numbness/tingling of the left lower extremity. Denies any recent weight loss. Denies any locking, popping, catching, or clicking of theleft knee. History of a right total knee arthroplasty with Dr. Mead in the past. Currently on Plaquenil, Prednisone, and Methotrexate for her outsole compressor for treatment of arthritis. Denies any curre nt long periods of immobilization in a car/plain/train, etc. History of cellulitis in the past alongwith a deep venous thrombosis of the left leg. Denies any previous left knee surgeries. Constitutional: Negative for fever. Skin: Negative for skin rash. Eyes: Negative for visual problems. ENT: Negative for difficulty hearing. Respiratory: Negative for dyspnea. Cardiovascular: Negative for chest pain, pressure or tightness. Hematologic: Positive for bruises or bleeds easily. Musculoskeletal: Positive for arthralgias and pain or stiffness in the joints. Neurological: Negative for numbness or shooting pain in hands, arms, legs, or feet. Psychiatric/Behavioral: Negative for sleep disturbance. The following systems were negative: GI, The following portions of the patient's history were reviewed and updated as appropriate: allergies,social history, current medications, surgical history, family history, problem list and medical history OBJECTIVE Vitals: 01/06/20 1146 BP: (!) 145/48 Pulse: (!) 59 Temp: 36.4 ??C BMI Readings from Last 3 Encounters: 01/06/20 26.98 kg/m?? 10/07/20 26.78 kg/m?? 10/26/18 28.34 kg/m?? Wt Readings from Last 3 Encounters: 01/01/20 66 kg 10/26/18 69.8 kg 08/08/18 74 kg Physical Exam General: alert and in no acute distress Eyes: anicteric eyes ENT: mucous membranes moist Skin: no suspicious lesions or rashes Hematologic: no bruising or ecchymosis Psych: no acute distress Cardiovascular: no pedal edema Respiratory: normal respiratory effort without conversational dyspnea Neurologic: motor strength as noted below Musculoskeletal: Left knee Inspection: Swelling along with diffuse discoloration noted of the anterior knee/leg region Palpation: Tenderness - medial joint line and medial tibial plateau No tenderness - patellar tendon, distal quadriceps insertion, lateral femoral condyle, lateral jointline and lateral tibial plateau Effusion - absent Active Range of Motion: -5 0 extension Passive Range of Motion: 105-110 0 flexion Strength: Extension - 5/5 Extensor mechanism intact Special Tests: Positive: Catie's Negative: lateral patella apprehension, patellar grind, ballottement, Mayela's, valgus stress (Grade I), varus stress (Grade I) and bounce home Diagnostics no x-rays indicated during today's clinical visit and previous film(s) were reviewed today, independent interpretation/visualization of images was completed, and results were discussed with the patient Right knee x-rays - 08/07/18 IMPRESSION: Right TKA. No evidence for hardware failure. Small knee effusion versus synovitis. Left knee arthropathy and chondrocalcinosis. Lab Results Component Value Date HGBA1C 6.4 (H) 12/26/2016 HGBA1C 6.7 (H) 07/05/2016 HGBA1C 6.5 (H) 05/24/2016 Lab Results Component Value Date NA 140 05/23/2018 K 4.1 05/23/2018 CL 101 05/23/2018 HCO3 28 05/23/2018 CREATININE 1.18 (H) 02/26/2019 EGFR 44 (L) 02/26/2019 BUN 20 05/23/2018 ANIONGAP 11 05/23/2018 GLUCOSE 120 05/23/2018 CALCIUM 9.2 05/23/2018 Lab Results Component Value Date ALT 16 02/26/2019 AST 32 02/26/2019 ALKPHOS 86 02/03/2018 BILITOT 0.5 02/03/2018 ASSESSMENT / PLAN #1 Left knee pain #2 Primary left knee osteoarthrosis #3 Chondrocalcinosis of the left knee #4 History of cellulitis and deep venous thrombosis Patient's primary concern at this time is discoloration of the left lower extremity, not pain/discomfort. Offered treatment options to the patient today for improvement of pain/function including medication management, formal physical therapy, aqua therapy, repeat injection therapy (left knee intra-art icular corticosteroid injection with ultrasound guidance), further injection therapy (left knee intra-articular viscosupplementation injection with ultrasound guidance), etc along potential need for further diagnostic imaging and operative intervention. Patient wished to proceed forward to be using Tyl enol as needed for improvement pain/discomfort. Instructed the patient to call if interested in moving forward with any of the treatment options as noted above moving forward. Patient is not interestedin any operative intervention including a left total knee arthroplasty at this time, thus will deferreferral back to orthopedic surgery for consideration of operative intervention. Follow-up in clinicas needed at this time for further evaluation/medical care. Johnathan Lowery DO, ARIANNA Instructor/Screen Printing Machine Operator Helper Bark Spudder Department of Physical Medicine & Rehabilitation Division of Sports Medicine, Department of Orthopedics PPE use information for possible contact monitoring: PPE used during visit: Provider was wearing a mask and eye protection throughout entire session. Patient was wearing a mask throughout entire session. documented in this encounter Plan of Treatment Not on filedocumented as of this encounter Visit Diagnoses Diagnosis Pain Knee Left - Primary Primary Osteoarthritis Knee Left Edema Leg Thrombosis Deep Vein Personal History documented in this encounter Care Teams Java Grails Developer Relationship Specialty Start Date End Date Noemi Lopez M.D., M.P.H. PCP - General 12/27/19 12/14/20 [address] [place] [address] documented as of this encounter
--- OUTSIDE RECORDS SUMMARY | 2022-02-28 01:38 | XMS_ITS | Encounter Summary ---
:1940 Author Organization [facility] Address [address] [place] [address] Care Team Providers Name Role Phone Kathy Gibson M.D. Primary Care Provider Reason for Visit Appointment Request (Routine) - Closed Specialty Diagnoses / Procedures Referred By Contact Refer red To Contact Family Medicine Referral ID Status Reason Start Date Expiration Date Visits Requ ested Visits Authorized [id number] Closed 11/06/2018 11/06/2019 1 1 Encounter Details Date Type Department Care Team Description 11/07/2018 Office Visit Department of Family [place] Person Instruction Exam Medicine, Jules FontenotPReginaNRegina (Primary Dx) Clinic, in [facility] [address] [place] [address] [place], [place] [phone] (Work) [phone] Social History Tobacco Use Types Packs/Day Years Used Date Smoking Tobacco: Never Smokeless Tobacco: Never Alcohol Use Standard Drinks/Week Comments No 0 (1 standard drink = 0.6 oz pure alcoho l) Sex Assigned at Date Recorded Female 09/25/2017 1:20 PM CDT documented as of this encounter Last Filed Vital Signs Vital Sign Reading Time Taken Comments Blood Pressure 131/46 11/07/2018 2:08 PM CDT Pulse 69 11/07/2018 2:08 PM CDT Temperature 36.3 ??C (97.3 ??F) 11/07/2018 2:03 PM CDT Respiratory Rate 16 11/07/2018 2:03 PM CDT Oxygen Saturation 96% 11/07/2018 2:03 PM CDT Inhaled Oxygen Concentration - - Weight - - Height - - Body Mass Index - - documented in this encounter Progress Notes [place] Person L.P.N. - 11/07/2018 2:15 PM CDT The patient came in today with her home B/P machine. We waited five minutes took her B/P and it was 148/44 p 71. Wh waited one minute and checked her B/P with her machine which was 138/71 p 68. We thenwaited another minute and rechecked with ort unit and her reading was 131/46 p 69. The patient wanted Dr. Gibson to know the two readings she took at home today, this am prior to her coreg. At 0730 her 1st reading was 144/63 p 64, 2nd reading 138/59 p 63. documented in this encounter Plan of Treatment Not on filedocumented as of this encounter Visit Diagnoses Diagnosis Health Instruction Exam - Primary documented in this encounter Care Teams Cam Specialist Relationship Specialty Start Date End Date Kathy Gibson M.D. PCP - General Family Medicine 12/15/17 02/24/19 documented as of this encounter
--- OUTSIDE RECORDS SUMMARY | 2022-02-28 01:38 | XMS_ITS | Encounter Summary ---
:1939 Author Organization [facility] Address [address] [place] [address] Care Team Providers Name Role Phone Kathy Gibson M.D. Primary Care Provider Encounter Details Date Type Department Care Team Description 01/15/2019 Hospital Encounter Department of Kathy Gibson Mammogram Radiology in [facility] [place], [place] [address] [facility] [address] [place], [place] [phone] Social History Tobacco Use Types Packs/Day [...] mg by 0 mouth daily. CALCIUM CARB/VIT Take 1 tablet by 0 01/11/2010 D3/MINERALS mouth daily. (CALCIUM-VITAMIN D ORAL) hydroxychloroquine 2 (two) times a 0 03/02/2018 (PLAQUENIL) 200 mg tablet day. MULTIVITAMIN ORAL Take 1 tablet by 0 01/11/2010 mouth daily. predniSONE (DELTASONE) 1 mg daily. 0 01/25/20 18 tablet alendronate (FOSAMAX) 35 mg Take 1 tablet (35 4 tablet 11 0 10/26/2018 09/18/2019 tablet mg total) by mouth once a week. Take with 8oz of water, on an empty stomach. Remain upright for 30min. carvedilol (COREG) 25 mg Take 1 tablet (25 360 tablet 1 10/2510/29/2019 tablet mg total) by mouth 2 (two) times a day with meals. diclofenac sodium 1 01/03/2019 020 (VOLTAREN) 1 % gel furosemide (LASIX) 40 mg Take 0.5 tablets 90 tablet 1 10/0303/28/2019 tabletIndications: (20 mg total) by Hypertension And Chronic mouth 2 (two) Kidney Disease Stage 3 times a day. (HCC) predniSONE (DELTASONE) 5 mg Start 17.5 mg( 109 tablet 3 08/2601/01/2020 tabletIndications: 3.5 tablets) on Rheumatoid Arthritis With September 24, 2017 Rheumatoid Factor Multiple then 15 mg(3 Sites Without Organ Or tablets daily) Systems Involvement (HCC) daily for Oct 2017 then 12.5 mg(2.5 tablets) daily in November . documented as of this encounter Plan of Treatment Not on filedocumented as of this encounter Procedures Procedure Name Priority Date/Time Associated Comments Diagnosis BI BREAST RAD - Routine 01/15/2019 2:23 Screening Results for this SCREENING (most inpatients PM CDT Mammogram Breast procedu re are in BILATERAL and all Cancer the results outpatients) section. documented in this encounter Results BI Breast Screening Bilateral (01/15/2019 2:23 PM CDT) Anatomical Region Laterality Modality Breast, Breast Imaging RST LOS, Breast Imaging ARZ LOS, [address] Bilateral Mammography Imaging [facility] Specimen (Source) Anatomical Collection Method Collection Time Re ceived Time Location / / Volume Laterality 01/15/2019 2:53 PM CDT Impressions 01/15/2019 2:53 PM CDT Negative. RECOMMENDATION: ??Annual Screening Mammo gram ASSESSMENT: ??BI-RADS: 1: Negative. Narrative 01/15/2019 2:53 PM CDT EXAM: ??BI BREAST SCREENING BILATERAL Current study was evaluated with a Compu ter Aided Detection (CAD) system. INDICATION: ??Screening mammogram. COMPARISON: ??Prior exam(s) were availab le and reviewed for comparison. DENSITY: ??c. The breast(s) are heteroge neously dense, which may obscure small masses. FINDINGS: ??No mammographic findings of malignancy. Procedure Note Johnathan Walsh M.D. - 01/15/2019Forma tting of this note might be different from the original. EXAM: BI BREAST SCREENING BILATERAL Current study was evaluated with a Compu ter Aided Detection (CAD) system. INDICATION: Screening mammogram. COMPARISON: Prior exam(s) were available and reviewed for comparison. DENSITY: c. The breast(s) are heterogene ously dense, which may obscure small masses. FINDINGS: No mammographic findings of ma lignancy. IMPRESSION: Negative. RECOMMENDATION: Annual Screening Mammogr am ASSESSMENT: BI-RADS: 1: Negative. Kathy Gibson M.D. IMG BI PROCEDURES documented in this encounter Visit Diagnoses Diagnosis Screening Mammogram Breast Cancer documented in this encounter Care Teams Director Retail Brand Development Relationship Specialty Start Date End Date Kathy Gibson M.D. PCP - General Family Medicine 12/15/17 02/24/19 documented as of this encounter
--- OUTSIDE RECORDS SUMMARY | 2022-02-28 01:38 | XMS_ITS | Encounter Summary ---
:1939 Author Organization [facility] Address [address] [place] [address] Care Team Providers Name Role Phone Terrence Christine M.D. Primary Care Provider Reason for Visit Reason Comments Communication Encounter Details Date Type Department Care Team Description 12/03/2019 Clinical Communication Department of Urology Priti Cintron Communication in [facility] C, R.N. [address] [place] [phone] Social History Tobacco Use Types Packs/Day Years Used Date Smoking Tobacco: Never Smokeless Tobacco: Never Alcohol Use Standard Drinks/Week Comments No 0 (1 standard drink = 0.6 oz pure alcoho l) Sex Assigned at Date Recorded Female 09/25/2017 1:20 PM CDT documented as of this encounter Miscellaneous Notes Telephone Encounter - Aliza England L.P.N. - 12/03/2019 1:06 PM CDT Spoke with patient and she is aware of the recommendations. Patient will call with any questions or concerns. No further questions at time of call end. Telephone Encounter - Verónica Escalante APRN, C.N.P. - 12/03/2019 8:33 AM CDT If symptoms of UTI don't improve, she should let us know and we can discuss options. Telephone Encounter - Priti Cintron R.N. - 12/03/2019 8:23 AM CDT Patient called to update urology, Provider Ava, that she was seen in [place] ED on 11/30/19 just couldn't take it anymore, the pain and pressure was so bad waiting for the culture results to come back but was prescribed and taking ciprofloxacin 500 mg BID and noticing improvement. She is also taking stool softener to control constipation. Self cathing three times daily, which DME orders are for. Patient does state she occasionally self caths more frequently. Patient informed will call her back if Provider Ava would like a follow up or make any changes, otherwise continue set out by [place] ED team. Verbalized understanding. documented in this encounter Plan of Treatment Not on filedocumented as of this encounter Visit Diagnoses Not on filedocumented in this encounter Care Teams Knitting Machine Fixer Head Relationship Specialty Start Date End Date Terrence Christine M.D. PCP - General 02/25/19 12/26/19 documented as of this encounter
--- OUTSIDE RECORDS SUMMARY | 2022-02-28 01:38 | XMS_ITS | Encounter Summary ---
:[address] [facility] Address [address] [place] [address] Care Team Providers Name Role Phone Terrence Christine M.D. Primary Care Provider Reason for Visit Reason Onset Date Comments injection follow up 03/13/2019 Encounter Details Date Type Department Care Team Description 03/13/2019 Clinical Communication Department of fanny Polanco follow up Orthopedic Surgery Nic Lund M.D. in [facility] [address] [place] [address] [address] [place] [phone] Social History Tobacco Use Types Packs/Day Years Used Date Smoking Tobacco: Never Smokeless Tobacco: Never Alcohol Use Standard Drinks/Week Comments No 0 (1 standard drink = 0.6 oz pure alcoho l) Sex Assigned at Date Recorded Female 09/25/2017 1:20 PM CDT documented as of this encounter Miscellaneous Notes Telephone Encounter - Sigrid Bonner - 03/13/2019 4:41 PM CST Patient returning call to nurse Santoyo. Unable to reach nurse. Patient wishing to state her left knee is doing good and Doctor Sherri did a fine job (very good). Patient stating she may be reached regarding this at [phone]. Patient stating a detailed message may be left at this number SUPPRESSION CAPTAIN Telephone Encounter - Jeanne Antonio, C.M.ARegina - 03/13/2019 1:36 PM FIRE SUPPRESSION CAPTAIN S - Cortisone injection follow up B - Patient had left kneecortisone injection on 02/27/[address] Polanco. A - Courtesy call R - Left message for patient to call back. SUPPRESSION CAPTAIN documented in this encounter Plan of Treatment Not on filedocumented as of this encounter Visit Diagnoses Not on filedocumented in this encounter Care Teams Quick Mixer Operator Relationship Specialty Start Date End Date Terrence Christine M.D. PCP - General 02/25/19 12/26/19 documented as of this encounter
--- OUTSIDE RECORDS SUMMARY | 2022-02-28 01:38 | XMS_ITS | Encounter Summary ---
:1939 Author Organization [facility] Address [address] [place] [address] Care Team Providers Name Role Phone Kathy Gibson M.D. Primary Care Provider Reason for Visit Reason Onset Date Comments pharm need rx dosage clarification 01/28/2019 Encounter Details Date Type Department Care Team Description 01/28/2019 Clinical Department of Kathy Gibson pharm need rx dosage Communication Family Medicine, [facility] clarification [facility], [address] [place] [address] in [facility] [address] [address] [facility] [phone] [place], [place] (Work) [phone] Social History Tobacco Use Types Packs/Day Years Used Date Smoking Tobacco: Never Smokeless Tobacco: Never Alcohol Use Standard Drinks/Week Comments No 0 (1 standard drink = 0.6 oz pure alcoho l) Sex Assigned at Date Recorded Female 09/25/2017 1:20 PM CDT documented as of this encounter Miscellaneous Notes Telephone Encounter - Martha Loomis R.N. - 01/29/2019 10:27 AM ENERGY ECONOMIST SUBJECTIVE CHIEF COMPLAINT / REASON FOR CALL pharm need rx dosage clarification INFORMATION DISCUSSED Contacted pharmacy to inform they should contact the yarn weight and strength tester to clarify the dose. PLAN Disposition/Recommendation: pharmacy notified Education: patient/caller able to teach back Caller agreeable to plan of care: yes The following references were used: provider Dr. Gibson GY ECONOMIST Telephone Encounter - Kathy Gibson M.D. - 01/28/2019 5:13 PM CST Please forward to yarn weight and strength tester who has prescribed this medication. GY ECONOMIST Telephone Encounter - Pat Schmid - 01/28/2019 2:10 PM CST Reason for Communication: [facility] called. Pt's Coreg rx, pt says she is taking 2 tablets twice a day of 25 mg tablets. Pharmacy will need need to clarify dosage and a new order. Current ext 0 Can Nursing/Provider leave a detailed message: no please speak with pharmacist Did the patient refuse triage through Nurse line? (for symptom based concerns): Action Needed: please call Name of Medication (if relevant): GY ECONOMIST documented in this encounter Plan of Treatment Not on filedocumented as of this encounter Visit Diagnoses Not on filedocumented in this encounter Care Teams Ball Points Inspector Relationship Specialty Start Date End Date Kathy Gibson M.D. PCP - General Family Medicine 12/15/17 02/24/19 documented as of this encounter
--- OUTSIDE RECORDS SUMMARY | 2022-02-28 01:38 | XMS_ITS | Encounter Summary ---
:1939 Author Organization [facility] Address [address] [place] [address] Care Team Providers Name Role Phone Kathy Gibson M.D. Primary Care Provider Reason for Visit Reason Onset Date Comments blood pressure readings 10/29/2018 Encounter Details Date Type Department Care Team Description 10/29/2018 Clinical Department of Luke blood pressure Communication Cardiovascular Tarsha Joseph M.D. readings Diseases in [address] [address] [place], [place] [phone] (Work) [phone] Social History Tobacco Use Types Packs/Day Years Used Date Smoking Tobacco: Never Smokeless Tobacco: Never Alcohol Use Standard Drinks/Week Comments No 0 (1 standard drink = 0.6 oz pure alcoho l) Sex Assigned at Date Recorded Female 09/25/2017 1:20 PM CDT documented as of this encounter Miscellaneous Notes Addendum Note - Tarsha Nascimento M.D. - 11/05/2018 2:39 PM CDT Addended by: TARSHA NASCIMENTO on: 11/05/2018 02:39 PM Modules accepted: Orders Telephone Encounter - Tarsha Nascimento M.D. - 11/05/2018 2:39 PM CDT Refilled. Addendum Note - Analy Swanson R.N. - 11/05/2018 2:07 PM CDT Addended by: ANALY SWANSON on: 11/05/2018 02:07 PM Modules accepted: Orders Telephone Encounter - Analy Swanson R.N. - 11/05/2018 2:06 PM CDT Spoke with Vanessa on the phone. Patient in agreement with Dr. Nascimento's recommendation of 25 mg twice a day and to recheck his blood pressure/heart rate log 2-3 weeks. No further questions or concerns at this time. Telephone Encounter - Tarsha Nascimento M.D. - 11/05/2018 1:08 PM CDT Yes it does. Please propose up titration of the dose of carvedilol to 25 mg p.o. twice a day. She should call me back with blood pressure/heart rate log in 2-3 weeks. Thank you, Tarsha Nascimento Telephone Encounter - Julia Stallings L.P.N. - 11/05/2018 11:50 AM CDT I spoke with Vanessa today and she confirmed that she is already taking 18.75 mg Carvedilol twice daily. Does this change what you recommend that she titrate up to? Please advise. Thanks, Julia Telephone Encounter - Tarsha Nascimento M.D. - 11/04/2018 12:09 PM CDT Please confirm the patient's currently taking carvedilol 12.5 mg twice a day. If that is the case and she is having side effects, please offer further up titration of carvedilol to 18.75 mg twice a day(or 1 table and a half twice a day). Call me with another repeat blood pressure log in 2-3 weeks. Thank you, Tarsha Nascimento Telephone Encounter - Pat Schmid - 10/29/2018 1:27 PM CDT Reason for Communication: Patient called. 10/07 133/72 65 pulse 140/70 64 pulse 133/63 64 pulse 10/08 141/70 72 pulse 139/70 69 pulse, 134/67 62 pulse 10/09 152/73 70 pulse 145/72 69 pulse 142/69 67 pulse 10/10 150/73 67 pulse, 145/67 65 pulse 136/66 66 pulse 10/11 140/70 66 pulse, 134/68 67 pulse 131/66 66 pulse 10/12 129/68 64 pulse, 131/61 61 pulse 124/63 62 pulse 10/13 142/69 63 pulse, 142/66 62 poulse 140/69 61 pulse 10/14 152/72 76 pulse 144/68 71 pulse 144/65 68 pulse 10/15 137/65 62 pulse 10/16 140/71 71 pulse 10/17 144/67 69 pulse 10/18 140/77 66 pulse 145/68 63 pulse 135/67 61 pulse 10/19 145/74 67 pulse 145/68 63 pulse 142/70 66 pulse 10/20 143/69 60 pulse 130/65 59 pulse 134/65 60 pulse 10/21 138/69 61 pulse, 140/68 60 pulse 129/63 62 pulse 7 138/74 63 pulse 139/62 62 pulse 128/65 65 pulse 7/ 137/68 67 pulse 145/67 66 pulse 132/64 66 pulse 7/ 142/65 68 125/69 66 pulse 133/60 62 pulse 8/1 148/72 62 pulse 142/66 65 pulse 139/70 63 pulse 8/2 143/68 69 pulse 139/68 68 pulse 136/65 65 pulse 8/3 157/77 68 pulse 146/69 63 pulse 152/68 62 pulse 10/4136/68 62 pulse 129/68 62 pulse 128/65 61 pulse 8/5 141/63 62 pulse 138/61 60 pulse 132/62 60 pulse Current Can Nursing/Provider leave a detailed message: Did the patient refuse triage through Nurse line? (for symptom based concerns): Action Needed: Name of Medication (if relevant): documented in this encounter Plan of Treatment Not on filedocumented as of this encounter Visit Diagnoses Not on filedocumented in this encounter Care Teams Customer Support Assistant Relationship Specialty Start Date End Date Kathy Gibson M.D. PCP - General Family Medicine 12/15/17 02/24/19 documented as of this encounter
--- OUTSIDE RECORDS SUMMARY | 2022-02-28 01:38 | XMS_ITS | Encounter Summary ---
:1939 Author Organization [facility] Address [address] [place] [address] Care Team Providers Name Role Phone Kathy Gibson M.D. Primary Care Provider Reason for Referral Outpatient (Routine) - Closed Specialty Diagnoses / Procedures Referred By Contact Refer red To Contact Urology Verónica Escalante APRN, C.N.P. [facility] [address] [phone] Referral ID Status Reason Start Date Expiration Date Visits Requ ested Visits Authorized [id number] Closed 01/21/2019 01/21/2020 1 1 Reason for Visit Reason Comments Follow-up 6 month, self cath 3x daily Outpatient (Routine) - Closed Specialty Diagnoses / Procedures Referred By Contact Refer red To Contact Urology Verónica Escalante APRN, C.N.P. [facility] [address] [phone] Referral ID Status Reason Start Date Expiration Date Visits Requ ested Visits Authorized [id number] Closed 05/28/2018 05/28/2019 1 1 Encounter Details Date Type Department Care Team Description 01/21/2019 Office Visit Department of Urology Veróncia Escalante, Retention Urinary (Primary Dx); in [place], C.N.PRegina Infection Urinary Tract Recurrent [place] [address] [address] [phone] Social History Tobacco Use Types Packs/Day Years Used Date Smoking Tobacco: Never Smokeless Tobacco: Never Alcohol Use Standard Drinks/Week Comments No 0 (1 standard drink = 0.6 oz pure alcoho l) Sex Assigned at Date Recorded Female 09/25/2017 1:20 PM CDT documented as of this encounter Last Filed Vital Signs Vital Sign Reading Time Taken Comments Blood Pressure 107/39 01/21/2019 8:50 AM CDT Pulse 67 01/21/2019 8:50 AM CDT Temperature 36.9 ??C (98.4 ??F) 01/21/2019 8:50 AM CDT Respiratory Rate - - Oxygen Saturation - - Inhaled Oxygen Concentration - - Weight - - Height - - Body Mass Index - - documented in this encounter Progress Notes Verónica Escalante, LARS, C.N.P. - 01/21/2019 9:00 AM CDT SUBJECTIVE CHIEF COMPLAINT/REASON FOR VISIT Chief Complaint Patient presents with ??? Follow-up 6 month, self cath 3x daily HISTORY OF PRESENT ILLNESS Zoe is a pleasant 78 year old female here today with her significant other, Arun, for a follow-up of urinary retention. She has an InterStim in place, she typically does not adjust this. She does feel this intermittently. She performs self intermittent catheterization 3 times daily, this has been going well for her and she denies any symptoms of urinary tract infection. She states that she does of occasionally void a small amount of urine. She is currently on a steroid taper and sees her home lending officer later this week. She is in significant amount of pain today and is not her usual self. The following portions of the patient's history were reviewed and updated as appropriate: allergies,current medications, family history, medical history, social history, surgical history and problem list. REVIEW OF SYSTEMS Gastrointestinal: Negative for constipation and diarrhea. Genitourinary: Positive for difficulty urinating. Negative for incontinence, pain with urination, hematuria, urgency and frequent urination. Musculoskeletal: Positive for arthralgias, pain or stiffness in the joints and joint swelling. OBJECTIVE Vitals: 10/28/19 0850 BP: (!) 107/39 Patient Position: Sitting Pulse: 67 Temp: 36.9 ??C TempSrc: Temporal PHYSICAL EXAM Vitals and nursing note reviewed. General: Well developed, well nourished, well groomed elderly female in no acute distress. Neurological: Alert, cooperative, oriented x3. Appropriate mood and affect. She is moving slowly today, it is obvious that she is stiff and in pain. Head: Normal appearance, no abnormalities, normocephalic. Neck: Symmetrical and supple, trachea is midline. Cardiac: regular rate, regular rhythm Respiratory: Respirations are unlabored with normal respiratory rate and normal respiratory movements. Normal chest wall expansion without use of accessory muscles. Abdomen: Soft, non-tender, non-distended Extremities: Warm, without edema or ulcerations. ASSESSMENT / PLAN #1 Atonic Bladder #2 Urinary Retention She should continue to perform self intermittent catheterization 3 times daily, 90 catheters per month. We will send refills to her catheter company when necessary. She understands that she will likelyneed to perform self intermittent catheterization for the rest of her life. We will see her again inclinic in approximately 9 months, sooner if needed. All of her questions are answered today and she is in agreement plans we have made. Signed by: Verónica Escalante APRN, C.N.P. 01/21/2019 8:58 AM documented in this encounter Plan of Treatment Scheduled Referrals Name Type Priority Associated Diagnoses Order S [facility] Urology office Outpatient Referral Routine Expect ed: visit (clinic) 10/22/2019 (Approximate), Expires: 01/21/2022 documented as of this encounter Visit Diagnoses Diagnosis Retention Urinary - Primary Infection Urinary Tract Recurrent documented in this encounter Care Teams Life Insurance Specialist Relationship Specialty Start Date End Date Kathy Gibson M.D. PCP - General Family Medicine 12/15/17 02/24/19 documented as of this encounter
--- OUTSIDE RECORDS SUMMARY | 2022-02-28 01:38 | XMS_ITS | Encounter Summary ---
:1939 Author Organization [facility] Address [address] [place] [address] Care Team Providers Name Role Phone Kathy Gibson M.D. Primary Care Provider Reason for Visit Appointment Request (Routine) - Closed Specialty Diagnoses / Procedures Referred By Contact Refer red To Contact Family Medicine Referral ID Status Reason Start Date Expiration Date Visits Requ ested Visits Authorized [id number] Closed 01/09/2019 01/09/2020 1 1 Encounter Details Date Type Department Care Team Description 01/21/2019 Immunization Department of [facility] Dawn Mcrae L.P.N. Medicine, [facility], [address] [place], [place] [address] [facility] [place] [address] [place] [address] [phone] Social History Tobacco Use Types Packs/Day Years [...] on filedocumented in this encounter Care Teams Lumber Loader Relationship Specialty Start Date End Date Kathy Gibson M.D. PCP - General Family Medicine 12/15/17 02/24/19 documented as of this encounter
--- OUTSIDE RECORDS SUMMARY | 2022-02-28 01:38 | XMS_ITS | Encounter Summary ---
:1939 Author Organization [facility] Address [address] [place] [address] Care Team Providers Name Role Phone Kathy Gibson M.D. Primary Care Provider Encounter Details Date Type Department Care Team Description 11/20/2018 Clinical Communication Department of Brando Butler Cardiovascular Diseases Estella Joseph in [address], [place] [address] [facility] [phone] Social History Tobacco Use Types Packs/Day Years Used Date Smoking Tobacco: Never Smokeless Tobacco: Never Alcohol Use Standard Drinks/Week Comments No 0 (1 standard drink = 0.6 oz pure alcoho l) Sex Assigned at Date Recorded Female 09/25/2017 1:20 PM CDT documented as of this encounter Miscellaneous Notes Telephone Encounter - Analy Swanson R.N. - 11/22/2018 3:51 PM CDT Spoke with patient on the phone. Informed her of the information from Dr. Butler regarding no changes at this time. Patient verbalized understanding. No further questions or concerns at this time. Telephone Encounter - Brando Butler M.D. - 11/22/2018 3:40 PM CDT The blood pressure seems improved on carvedilol. We would not make any additional changes at this time. Thank you, Brando Butler Telephone Encounter - Ngozi Amin R.N. - 11/20/2018 11:49 AM CDT 10/30/18 146/69 P64 Julio Butler, Please see attached blood pressure log per patient verbal report via phone: 10/31/18 144/73 P 63 11/01/18 138/67 P 69 11/02/18 142/78 P 64 11/03/18 144/65 P 62 11/04/18 145/70 P 66 11/05/18 133/63 P 63 11/06/18 142/65 P 62 11/07/18 138/59 P 63 11/08/18 132/66 P 58 11/09/18 124/62 P 58 11/10/18 118/59 P 59 (medication change, carvedilol increased) 11/11/18 128/70 P 65 11/12/18 122/60 P 58 11/13/18 127/65 P 63 11/14/18 135/66 P 62 11/15/18 143/70 P 62 (patient stated did not sleep well night before) 11/16/18 130/65 P 66 11/17/18 132/73 P 57 11/18/18 132/65 P 61 11/19/18 137/68 P 59 11/20/18 130/64 P 63 (notes slept well last night, remains on prednisone) Thank you, Ngozi Telephone Encounter - Na Ross - 11/20/2018 11:27 AM CDT Reason for Communication: Patient calling, is needing to let you know about blood pressure readings. Current Can Nursing/Provider leave a detailed message: yes Did the patient refuse triage through Nurse line? (for symptom based concerns): Action Needed: Name of Medication (if relevant): documented in this encounter Plan of Treatment Not on filedocumented as of this encounter Visit Diagnoses Not on filedocumented in this encounter Care Teams Corporate Strategy Analyst Relationship Specialty Start Date End Date Kathy Gibson M.D. PCP - General Family Medicine 12/15/17 02/24/19 documented as of this encounter
--- OUTSIDE RECORDS SUMMARY | 2022-02-28 01:38 | XMS_ITS | Encounter Summary ---
:1939 Author Organization [facility] Address [address] [place] [address] Care Team Providers Name Role Phone Kathy Gibson M.D. Primary Care Provider Encounter Details Date Type Department Care Team Description 02/15/2019 Clinical Communication Department of Bibi Murray, Medicine, [facility], in [address] [phone] (Work) [phone] Social History Tobacco Use Types Packs/Day Years Used Date Smoking Tobacco: Never Smokeless Tobacco: Never Alcohol Use Standard Drinks/Week Comments No 0 (1 standard drink = 0.6 oz pure alcoho l) Sex Assigned at Date Recorded Female 09/25/2017 1:20 PM CDT documented as of this encounter Miscellaneous Notes Telephone Encounter - Nissa Olson, L.P.N. - 02/19/2019 1:34 PM CERTIFIED MEDICAL RECORDS CODER SUBJECTIVE CHIEF COMPLAINT / REASON FOR CALL No chief complaint on file. PLAN The following information was provided: Verified with Rena that her lab appt is set for 02/26 Information/Education: patient/caller able to teach back The following references were used: none IFIED MEDICAL RECORDS CODER Telephone Encounter - Shea Chapman C.M.A. - 02/15/2019 1:19 PM CERTIFIED MEDICAL RECORDS CODER Left message to figure out labs that patient is exactly needing. IFIED MEDICAL RECORDS CODER Telephone Encounter - Jacquelin Cheung - 02/15/2019 1:09 PM CST Reason for Communication: [place]she would like them down here instead, she said a lipid panel and for her arthritis Current Can Nursing/Provider leave a detailed message: na Did the patient refuse triage through Nurse line? (for symptom based concerns): na Action Needed: please call pt and advise Name of Medication (if relevant): na IFIED MEDICAL RECORDS CODER documented in this encounter Plan of Treatment Not on filedocumented as of this encounter Visit Diagnoses Not on filedocumented in this encounter Care Teams Peoplesoft Fscm Developer Relationship Specialty Start Date End Date Kathy Gibson M.D. PCP - General Family Medicine 12/15/17 02/24/19 documented as of this encounter
--- OUTSIDE RECORDS SUMMARY | 2022-02-28 01:38 | XMS_ITS | Encounter Summary ---
:1939 Author Organization [facility] Address [address] [place] [address] Care Team Providers Name Role Phone Terrence Christine M.D. Primary Care Provider Reason for Referral Outpatient (Routine) - Closed Specialty Diagnoses / Procedures Referred By Contact Refer red To Contact Diagnoses Primary Osteoarthritis Knee Left Nic Polanco M.D. [facility] Region Procedures frs-xdac-wpfbrkdf-elbow arthrocentesis: L knee joint [address] [place] [address] Referral ID Status Reason Start Date Expiration Date Visits Requ ested Visits Authorized [id number] Closed 02/27/2019 02/27/2020 1 1 ET OPENINGS INSPECTOR Reason for Visit Reason Comments Injection Visit left knee, pain started retu rning last month gradually getting worse Pain Appointment Request (Routine) - Closed Specialty Diagnoses / Procedures Referred By Contact Refer red To Contact Orthopedic Surgery Referral ID Status Reason Start Date Expiration Date Visits Requ ested Visits Authorized [id number] Closed 02/25/2019 02/25/2020 1 1 Encounter Details Date Type Department Care Team Description 02/27/2019 Office Visit Department of Nic Polanco Primary Os teoarthritis Orthopedic Surgery in Estella Lund Knee Left (Primary Dx) [place], [place] [address] [place] [phone] Social History Tobacco Use Types Packs/Day Years Used Date Smoking Tobacco: Never Smokeless Tobacco: Never Alcohol Use Standard Drinks/Week Comments No 0 (1 standard drink = 0.6 oz pure alcoho l) Sex Assigned at Date Recorded Female 09/25/2017 1:20 PM CDT documented as of this encounter Progress Notes Nic Polanco M.D. - 02/27/2019 3:45 PM CST HPI: Vanessa is a pleasant 78-year-old female comes in today for evaluation of left knee pain. She has previously been a patient of Dr. Mead. She underwent a right total knee arthroplasty about a year and half ago. She has known degenerative changes in her left knee. She last had an injection 2 years ago that worked very well. This has since worn off in the past month or so has been quite painful. She would like another injection today. PHYSICAL EXAM: She is a healthy-appearing female in no acute distress. Examination of her left knee reveals benign skin. Range of motion is 5-105 degrees. She has significant tenderness over both medial and lateral joint lines. She is neurovascular intact. IMAGING: X-rays demonstrate moderate degenerative changes of her left knee. ASSESSMENT AND PLAN: Vanessa is a pleasant 78-year-old female with moderate left knee osteoarthritis. We discussed options and she elected to proceed with a cortisone injection today. ET OPENINGS INSPECTOR documented in this encounter Procedure Notes Nic Polanco M.D. - 02/27/2019 3:45 PM CSTAssociated Order(s): cjm-nxpj-nrgxjnpg-elbow arthrocentesis: L knee joint Post-Procedure Diagnose(s): Primary Osteoarthritis Knee Left Knee site- L knee joint : injection only Date/Time: 02/27/2019 12:25 PM Performed by: Nic Polanco M.D. Authorized by: Nic Polanco M.D. PROCEDURE DETAILS Procedure Location knee Knee site: L knee joint Site prep: patient was prepped and draped in usual sterile fashion Patient position: seated Procedural approach: anterolateral Procedure performed: injection only Needle gauge: 21 G Procedural Medication The following medications were administered at the target site(s) Local anesthetic: 8 mL lidocaine 10 mg/mL (1 %) Corticosteroid: 40 mg triamcinolone acetonide 40 mg/mL CONSENT Consent obtained: written UNIVERSAL PROTOCOL All relevant documentation and testing were reviewed and available. All required blood products, implants, devices and or special equipment were made available as applicable. Pre-procedure verificationwas conducted and the correct site was marked if required. A fire risk assessment was done as applicable. The procedural time-out was conducted prior to performing the procedure and confirmed in a procedural pause. PRE-PROCEDURE DETAILS Procedure purpose: therapeutic Indications: Pain Appropriate hand hygiene, gown, cap, mask, protective eyewear, sterile gloves, skin preparation, sterile drape, and strict aseptic technique were utilized as applicable for the procedure: yes Skin preparation: chlorhexidine SEDATION / ANESTHESIA Anesthesia method: none POST-PROCEDURE DETAILS Procedure completed successfully: yes Complications: no apparent complications Discharge instructions: ice area as needed for comfort ET OPENINGS INSPECTOR documented in this encounter Plan of Treatment Not on filedocumented as of this encounter Procedures Procedure Name Priority Date/Time Associated Diagnosis Comme nts OK ARTHCS ASP/INJ Routine 02/27/2019 3:45 PM Primary Osteoarth ritis Results for this MJR JT WO US STREET OPENINGS INSPECTOR Knee Left procedure are i n the results section. documented in this encounter Results OK ARTHCS ASP/INJ MJR JT WO US (02/27/2019 3:[address] OPENINGS INSPECTOR) Narrative MMODAL - 02/27/2019 3:[address] OPENINGS INSPECTOR Nic Polanco M.D. ? 02/27/2019 ??3:46 PM Knee site- L knee joint : injection only Date/Time: 02/27/2019 12:25 PM Performed by: Nic Polanco M.D. Authorized by: Nic Polanco M.D. PROCEDURE DETAILS Procedure Location knee Knee site: L knee joint Site prep: patient was prepped and drape d in usual sterile fashion ?? Patient position: seated Procedural approach: anterolateral Procedure performed: injection only Needle gauge: 21 G Procedural Medication The following medications were administe red at the target site(s) Local anesthetic: 8 mL lidocaine 10 mg/m L (1 %) Corticosteroid: 40 mg triamcinolone acet onide 40 mg/mL CONSENT Consent obtained: written UNIVERSAL PROTOCOL All relevant documentation and testing w ere reviewed and available. All required blood products, implants, devic es and or special equipment were made available as applicable. Pre-proced ure verification was conducted and the correct site was marked if required. A fire risk assessment was done as applicable. The procedural time-out w as conducted prior to performing the procedure and confirmed in a procedu ral pause. PRE-PROCEDURE DETAILS Procedure purpose: therapeutic Indications: Pain Appropriate hand hygiene, gown, cap, mas k, protective eyewear, sterile gloves, skin preparation, sterile drape, and strict aseptic technique were utilized as applicable for the procedure : yes ?? Skin preparation: chlorhexidine SEDATION / ANESTHESIA Anesthesia method: none POST-PROCEDURE DETAILS Procedure completed successfully: yes Complications: no apparent complications ?? Discharge instructions: ice area as need ed for comfort Nic Polanco M.D. PROCEDURE/MINOR SURGICAL ORD ERABLES Performing Organization Address City/State/ZIP Code Phon e Number MMODAL MMODAL NA documented in this encounter Visit Diagnoses Diagnosis Primary Osteoarthritis Knee Left - Prima ry documented in this encounter Administered Medications Inactive Administered Medications - up to 3 most recent administrations Medication Order MAR Action Action Date Dose Rate Site lidocaine 10 mg/mL (1 %) injection Given 02/27/2019 12:[address] OPENINGS INSPECTOR 8 mL 8 mL (XYLOCAINE) 8 mL, infiltration, One-Time Injection, Starting on Mon02/27/19 at 1225, For 1 dose triamcinolone acetonide injection 40 mg Given 02/27/2019 12:[address] OPENINGS INSPECTOR 40 mg (KENALOG-40) 40 mg, intra-articular, One-Time Injection, Starting on Mon02/27/19 at 1225, For 1 dose documented in this encounter Care Teams Manufacture Specialist Relationship Specialty Start Date End Date Terrence Christine M.D. PCP - General 02/25/19 12/26/19 documented as of this encounter
--- OUTSIDE RECORDS SUMMARY | 2022-02-28 01:38 | XMS_ITS | Encounter Summary ---
:1939 Author Organization [facility] Address [address] [place] [address] Care Team Providers Name Role Phone Terrence Christine M.D. Primary Care Provider Encounter Details Date Type Department Care Team Description 03/22/2019 Clinical Communication Department of Urology [place]he[place]alante [place] APRN, C.N.P. [place] [address] [place] [phone] Social History Tobacco Use Types Packs/Day Years Used Date Smoking Tobacco: Never Smokeless Tobacco: Never Alcohol Use Standard Drinks/Week Comments No 0 (1 standard drink = 0.6 oz pure alcoho l) Sex Assigned at Date Recorded Female 09/25/2017 1:20 PM CDT documented as of this encounter Miscellaneous Notes Telephone Encounter - Soheila Vides L.PReginaN. - 03/22/2019 4:40 PM CST Faxed to [facility] at [phone] OXIDE MILL TENDER Telephone Encounter - Verónica Escalante APRN, C.N.P. - 03/22/2019 4:25 PM LEAD OXIDE MILL TENDER Orders written for catheter supplies, please fax to her supplier. OXIDE MILL TENDER Telephone Encounter - Soheila Vides L.P.N. - 03/22/2019 4:12 PM CST Pt calling in and she states that she did not receive her catheters from [place] [employer]. I contacted pt and she states they need documentation from the provider. She is catheterizing three times daily. Her last rx was sent in 2018. OXIDE MILL TENDER documented in this encounter Plan of Treatment Not on filedocumented as of this encounter Visit Diagnoses Not on filedocumented in this encounter Care Teams Upper Lining Cementer Relationship Specialty Start Date End Date Terrence Christine M.D. PCP - General 02/25/19 12/26/19 documented as of this encounter
--- OUTSIDE RECORDS SUMMARY | 2022-02-28 01:38 | XMS_ITS | Encounter Summary ---
:1939 Author Organization [facility] Address [address] [place] [address] Care Team Providers Name Role Phone Terrence Christine M.D. Primary Care Provider Encounter Details Date Type Department Care Team Description 11/15/2019 Hospital Encounter Department of Verónica Escalante Urinary; Laboratory Medicine LARS Love C.N ReginaPRegina Dysuria in [place], [address] [place], [place] [address] [facility] [address] [address] [place], [place] [phone] [phone] (Work) [phone] Social History Tobacco Use Types Packs/Day Years [...] mg Take 1 capsule 20 capsule 0 201911/25/2019 capsule (300 mg total) by mouth every 12 (twelve) hours for 10 days. alendronate (FOSAMAX) 35 mg Take 1 tablet (35 12 tablet 3 0 09/18/2019 08/20/2020 tablet mg total) by mouth once a week. Take with 8oz of water, on an empty stomach. Remain upright for 30min. carvediloL (COREG) 25 mg TAKE 1 TABLET (25 180 tablet 0 06/201901/01/2020 tablet MG TOTAL) BY MOUTH 2 (TWO) TIMES A DAY WITH MEALS. diclofenac sodium 1 01/03/2019 020 (VOLTAREN) 1 % gel furosemide (LASIX) 40 mg TAKE ONE-HALF 90 tablet 3 06/24/19 20 07/01/2020 tabletIndications: TABLET BID Hypertension And Chronic Kidney Disease Stage 3 (HCC) predniSONE (DELTASONE) 5 mg Start 17.5 [...] Date/Time Associated Comments Diagnosis BACTERIAL CULTURE, Routine 11/15/2019 10:30 Retention Ur inary Results for this AEROBIC + SUSC, URINE AM CDT Dysuria proced ure are in the results section. URINALYSIS WITH Routine 11/15/2019 10:30 Retention Urina ry Results for this MICROSCOPIC AM CDT Dysuria procedure are i n the results section. documented in this encounter Results (ABNORMAL) Urinalysis with Microscopic: Urine, Catheter (11/15/2019 10:30 AM CDT) P athologist Signature Source Midstream 11/15/2019 FB60 5:28 PM CDT Clarity Cloudy (A) Clear 11/15/2019 FB60 5:33 PM CDT Color Yellow 11/15/2019 FB60 5:33 PM CDT Comment: ----REFERENCE VALUE---- Colorless Yellow Jaenth Blood Trace (A) Negative 11/15/2019 5:33 PM CDT FB60 Nitrite Negative Negative 11/15/2019 5:33 PM CDT FB60 Leukocyte Esterase Large (A) Negative 11/15/2019 5:33 PM CD T FB60 Protein Negative mg/dL 11/15/2019 5:33 PM CDT FB60 Comment: ----REFERENCE VALUE---- Negative Trace Glucose Negative Negative mg/dL 11/15/2019 5:33 PM CDT FB 60 Ketones, QI(U) Negative Negative mg/dL 11/15/2019 5:33 PM C DT FB60 Bilirubin Negative Negative 11/15/2019 5:33 PM CDT FB60 pH 7.0 5.0 - 8.0 11/15/2019 5:33 PM CDT FB60 Specific [place] 1.010 1.001 - 1.035 11/15/2019 5:33 PM CDT FB60 Urobilinogen 0.2 0.2 - 1.0 mg/dL 11/15/2019 5:33 PM CD T FB60 White Blood Cells 11-20 (A) /hpf 11/15/2019 5:33 PM CDT FB60 Comment: ----REFERENCE VALUE---- Males: 0-3 Females: 0-10 Unknown: 0-10 Red Blood Cells None Seen 0 - 2 /hpf 11/15/2019 5:33 PM CDT FB60 Squamous Cells Occ-3 /hpf 11/15/2019 5:33 PM CDT FB 60 Bacteria Present (A) None Seen 11/15/2019 5:33 PM CDT FB60 Specimen Anatomical Collection Method Collection Time Receive d Time (Source) Location / / Volume Laterality Urine (Urine, 11/15/2019 10:30 11/15/2019 5:18 Catheter) AM CDT PM CDT Verónica Escalante APRN C.N.P. LAB URINE ORDERABLES Performing Organization Address City/State/ZIP Code Phon e Number [facility]- [address] [place] [address] [facility] [address] [place] [address] System in [place] [address] (ABNORMAL) Bacterial Culture, Aerobic + Susc, Urine (11/15/2019 10:30 AM CDT) [facility] gist Method Time Signature Urine Culture ESCHERICHIA COLI 11/17/2019 MKTO >100,000 cfu/mL 10:45 AM CDT (A) Specimen Anatomical Collection Method Collection Time Receive d Time (Source) Location / / Volume Laterality Urine (Urine, 11/15/2019 10:30 11/15/2019 7:11 Straight AM CDT PM CDT Catheter) Comment: Specimen Source Site: Urine Organism Antibiotic Method Susceptibility Escherichia coli Ampicillin SUSCEPTIBILITY, >=32 mcg/mL: Re sistant REJI (MCG/ML) Escherichia coli Ampicillin + Sulbactam SUSCEPTIBILITY, 16 mcg/m L: Intermediate REJI (MCG/ML) Escherichia coli Piperacillin + Tazobactam [...] REJI (MCG/ML) Susceptible Escherichia coli Gentamicin SUSCEPTIBILITY, 8 mcg/mL: Inter mediate REJI (MCG/ML) Escherichia coli Tobramycin SUSCEPTIBILITY, 4 mcg/mL: Susce ptible REJI (MCG/ML) Escherichia coli Levofloxacin SUSCEPTIBILITY, 0.25 mcg/mL: Xie sceptible REJI (MCG/ML) Escherichia coli Nitrofurantoin SUSCEPTIBILITY, <=16 mcg/mL: Xie sceptible REJI (MCG/ML) Escherichia coli Trimethoprim + SUSCEPTIBILITY, >=320 mcg/mL: R esistant Sulfamethoxazole REJI (MCG/ML) Verónica Escalante APRN C.N.PRegina LAB MICROBIOLOGY - GENE RAL ORDERABLES Performing Organization Address City/State/ZIP Code Phon e Number [facility]- [address] [place] [address] [facility] [address] System [address] documented in this encounter Visit Diagnoses Diagnosis Retention Urinary Dysuria documented in this encounter Care Teams Plasterer Spot Relationship Specialty Start Date End Date Terrence Christine M.D. PCP - General 02/25/19 12/26/19 documented as of this encounter
--- OUTSIDE RECORDS SUMMARY | 2022-02-28 01:38 | XMS_ITS | Encounter Summary ---
:1939 Author Organization [facility] Address [address] [place] [address] Care Team Providers Name Role Phone Terrence Christine M.D. Primary Care Provider Reason for Visit Reason Comments Med Refill Encounter Details Date Type Department Care Team Description 09/18/2019 Refill Department of [facility] Minh Christine M.D. Med Refill Internal Medicine in [address] [place] [address], [facility] [address] [place] [address] [address] [facility] [address] Social History Tobacco Use Types Packs/Day Years Used Date Smoking Tobacco: Never Smokeless Tobacco: Never Alcohol Use Standard Drinks/Week Comments No 0 (1 standard drink = 0.6 oz pure alcoho l) Sex Assigned at Date Recorded Female 09/25/2017 1:20 PM CDT documented as of this encounter Miscellaneous Notes Telephone Encounter - Arielle Boyd - 09/18/2019 3:16 PM CDT Nurse review: Unable to forward request to provider; Former Dr. Gibson patient Primary Provider: Terrence Christine M.D. documented in this encounter Plan of Treatment Not on filedocumented as of this encounter Visit Diagnoses Not on filedocumented in this encounter Care Teams Career Services Manager Relationship Specialty Start Date End Date Terrence Christine M.D. PCP - General 02/25/19 12/26/19 documented as of this encounter
--- OUTSIDE RECORDS SUMMARY | 2022-02-28 01:38 | XMS_ITS | Encounter Summary ---
:1939 Author Organization [facility] Address [address] [place] [address] Care Team Providers Name Role Phone Terrence Christine M.D. Primary Care Provider Reason for Visit Reason Comments Med Refill Encounter Details Date Type Department Care Team Description 10/28/2019 Refill Department of Cardiovascular Pes Brando duran M.D. Med Refill Diseases in [place], [place] [address] [address] [facility] [phone] (Wo rk) Social History Tobacco Use Types Packs/Day Years Used Date Smoking Tobacco: Never Smokeless Tobacco: Never Alcohol Use Standard Drinks/Week Comments No 0 (1 standard drink = 0.6 oz pure alcoho l) Sex Assigned at Date Recorded Female 09/25/2017 1:20 PM CDT documented as of this encounter Miscellaneous Notes Telephone Encounter - Analy Swanson R.N. - 10/31/2019 11:00 AM CDT I informed patient of the information provided by Elbert Henry. Telephone Encounter - Elbert Henry APRN, C.N.P. - 10/29/2019 4:07 PM CDT I refilled her medication for three months. Her last visit with Dr. Butler was over a year ago andhe was not planning on seeing her back for continued follow- up. This medicine needs to be renewed byher primary care physician moving forward. Telephone Encounter - Analy Swanson R.N. - 10/29/2019 3:27 PM CDT Elbert, Would you be able to fill in Dr. Butler's absence? Thank you, Analy HILLS Telephone Encounter - Jeri Morales - 10/29/2019 3:08 PM CDT Luke appears to be out of office-please forward to covering provider documented in this encounter Plan of Treatment Not on filedocumented as of this encounter Visit Diagnoses Not on filedocumented in this encounter Care Teams Butadiene Converter Helper Relationship Specialty Start Date End Date Terrence Christine M.D. PCP - General 02/25/19 12/26/19 documented as of this encounter
--- OUTSIDE RECORDS SUMMARY | 2022-02-28 01:38 | XMS_ITS | Encounter Summary ---
:1940 Author Organization [facility] Address [address] [place] [address] Care Team Providers Name Role Phone Terrence Christine M.D. Primary Care Provider Encounter Details Date Type Department Care Team Description 11/15/2019 Orders Only Department of Urology Verónica Escalante, Retention Urinary (Primary Dx[facility] Dysuria [place] [address] [place] [id number] [phone] Social History Tobacco Use Types Packs/Day Years [...] Colorless Yellow Janeth Blood Trace (A) Negative 11/15/2019 5:33 PM [...] 8.0 11/15/2019 5:33 PM CDT FB60 Specific Penrose 1.010 1.001 - 1.035 11/15/2019 5:33 PM [...] C.N.P. LAB URINE ORDERABLES Performing Organization Address City/[facility]/ZIP Code Phon e Number [place] [address] [place] [address] [facility]60 [place] [address] System [address] (ABNORMAL) Bacterial Culture, Aerobic + Susc, Urine (11/15/2019 10:30 AM CDT) [facility] gist Method Time Signature Urine Culture ESCHERICHIA [...] >=320 mcg/mL: R esistant Sulfamethoxazole REJI (MCG/ML) Bailee Brito APRNNSena LAB MICROBIOLOGY - GENE RAL ORDERABLES Performing Organization Address City/State/ZIP Code Phon e Number [facility]- [address] [place] [address] [place] [address] System [address] documented in this encounter Visit Diagnoses Diagnosis Retention Urinary - Primary Dysuria documented in this encounter Care Teams Second Facing Baster Relationship Specialty Start Date End Date Terrence Christine M.D. PCP - General 02/25/19 12/26/19 documented as of this encounter
--- OUTSIDE RECORDS SUMMARY | 2022-02-28 01:38 | XMS_ITS | Encounter Summary ---
:1940 Author Organization [facility] Address [address] [place] [address] Care Team Providers Name Role Phone Terrence Christine M.D. Primary Care Provider Encounter Details Date Type Department Care Team Description 03/28/2019 Orders Only Department of Family Kristy Hunter, Hyp ertension And Medicine, [place] [facility], in [place], [address] Stage 3 (HCC) [address] [address] [place], [place] [phone] (Work) [phone] Social History Tobacco Use Types Packs/Day Years Used Date Smoking Tobacco: Never Smokeless Tobacco: Never Alcohol Use Standard Drinks/Week Comments No 0 (1 standard drink = 0.6 oz pure alcoho l) Sex Assigned at Date Recorded Female 09/25/2017 1:20 PM CDT documented as of this encounter Plan of Treatment Not on filedocumented as of this encounter Visit Diagnoses Diagnosis Hypertension And Chronic Kidney Disease Stage 3 (HCC) documented in this encounter Care Teams Animal Nursery Worker Relationship Specialty Start Date End Date Terrence Christine M.D. PCP - General 02/25/19 12/26/19 documented as of this encounter
--- OUTSIDE RECORDS SUMMARY | 2022-02-28 01:38 | XMS_ITS | Encounter Summary ---
:1940 Author Organization [facility] Address [address] [place] [address] Care Team Providers Name Role Phone Terrence Christine M.D. Primary Care Provider Reason for Visit Reason Comments Med Refill Encounter Details Date Type Department Care Team Description 01/28/2019 Refill Department of Family Medicine, Kathy joyner M.D. Med Refill [facility], in [address] [place] [address] [place] [address] [place] [address] [place] [address] [phone] Social History Tobacco Use Types Packs/Day Years Used Date Smoking Tobacco: Never Smokeless Tobacco: Never Alcohol Use Standard Drinks/Week Comments No 0 (1 standard drink = 0.6 oz pure alcoho l) Sex Assigned at Date Recorded Female 09/25/2017 1:20 PM CDT documented as of this encounter Miscellaneous Notes Telephone Encounter - Arielle Boyd - 01/29/2019 9:49 AM CST Patient now says 2 tabs bid. Please verify and send new Rx if correct. Last filled by Dr. Butler. OR REPORT DEVELOPER documented in this encounter Plan of Treatment Not on filedocumented as of this encounter Visit Diagnoses Not on filedocumented in this encounter Care Teams Engineering Group Leader Relationship Specialty Start Date End Date Terrence Christine M.D. PCP - General 02/25/19 12/26/19 documented as of this encounter
--- OUTSIDE RECORDS SUMMARY | 2022-02-28 01:38 | XMS_ITS | Encounter Summary ---
:1940 Author Organization [facility] Address [address] [place] [address] Care Team Providers Name Role Phone Terrence Christine M.D. Primary Care Provider Reason for Visit Appointment Request (Routine) - Closed Specialty Diagnoses / Procedures Referred By Contact Refer red To Contact Family Medicine Referral ID Status Reason Start Date Expiration Date Visits Requ ested Visits Authorized [id number] Closed 02/18/2019 02/18/2020 1 1 Encounter Details Date Type Department Care Team Description 02/26/2019 Hospital Encounter Department of Sharif Nunez ation Therapy Custodial Not Anticoagulant; Laboratory Medicine F, MAbdoul Arthritis Rheumatoid (HCC) in [address] [phone] Social History Tobacco Use Types Packs/Day Years [...] Procedure Name Priority Date/Time Associated Comments Diagnosis MISCELLANEOUS SENT OUT Routine 02/26/2019 12:44 Medication The rapy Results for this LAB TEST PM [facility] Custodial Not procedure are in Anticoagulant the results Arthritis section. Rheumatoid (HCC) CBC WITH DIFFERENTIAL, B Routine 02/26/2019 12:44 Medication T herapy Results for this PM [facility] Spike Driver Not procedure are in Anticoagulant the results Arthritis section. Rheumatoid (HCC) ALANINE AMINOTRANSFERASE Routine 02/26/2019 12:44 Medication T herapy Results for this (ALT), S/P PM [facility] Spike Driver Not procedure are in Anticoagulant the results Arthritis section. Rheumatoid (HCC) ASPARTATE Routine 02/26/2019 12:44 Medication Therapy Resul ts for this AMINOTRANSFERASE (AST), PM [facility] Spike Driver Not pro cedure are in S/P Anticoagulant the results Arthritis section. Rheumatoid (HCC) CREATININE WITH EGFR, Routine 02/26/2019 12:44 Medication Ther apy Results for this S/P PM [facility] Custodial Not procedure are in Anticoagulant the results Arthritis section. Rheumatoid (HCC) ALBUMIN, S/P Routine 02/26/2019 12:44 Medication Therapy Resul ts for this PM [facility] Spike Driver Not procedure are in Anticoagulant the results Arthritis section. Rheumatoid (HCC) documented in this encounter Results ALT (Alanine Aminotransferase) (02/26/2019 12:44 PM [facility]) Patholo gist Method Time Signature Alanine 16 7 - 45 02/26/2019 [facility] Aminotransferase U/L 4:24 PM [facility] (ALT), S Specimen Anatomical Collection Method Collection Time Receive d Time (Source) Location / / Volume Laterality Blood (Blood, 02/26/2019 12:44 02/26/2019 3:48 Venous) PM [facility] PM [facility] Sharif Nunez M.D. LAB BLOOD ADD-ON Performing Organization Address City/State/ZIP Code Phon e Number [facility]- [address] [place] [address] [facility] [place] [address] System in [place] [address] AST (Aspartate Aminotransferase) (02/26/2019 12:44 PM [facility]) [facility] gist Method Time Signature Aspartate 32 8 - 43 02/26/2019 [place] Aminotransferase U/L 4:24 PM [facility] (AST), S Specimen Anatomical Collection Method Collection Time Receive d Time (Source) Location / / Volume Laterality Blood (Blood, 02/26/2019 12:44 02/26/2019 3:48 Venous) PM [facility] PM [facility] Sharif Nunez M.D. LAB BLOOD ADD-ON Performing Organization Address City/State/ZIP Code Phon e Number [facility]- [address] [place] [address] [facility] [place] [address] System in [place] [address] (ABNORMAL) Creatinine with Estimated GFR (02/26/2019 12:44 PM [facility]) Analysis Performed At Patho logist Time Signature Creatinine 1.18 (H) 0.59 - 02/26/2019 [place] 1.04 mg/dL 4:24 PM [facility] eGFR-Non 44 (L) >=60 02/26/2019 [facility] Black/ mL/min/BSA 4:24 PM [facility] [place] Comment: ----ADDITIONAL INFORMATION---- Estimated GFR calculated using the 2009 CKD_EPI creatinine equation. eGFR-Black/ 51 (L) >=60 mL/min/BSA 2018 4:24 PM [facility] Comment: ----ADDITIONAL INFORMATION---- Estimated GFR calculated using the 2009 CKD_EPI creatinine equation. Specimen Anatomical Collection Method Collection Time Receive d Time (Source) Location / / Volume Laterality Blood (Blood, 02/26/2019 12:44 02/26/2019 3:48 Venous) PM [facility] PM [facility] Sharif Nunez M.D. LAB BLOOD ADD-ON Performing Organization Address City/State/ZIP Code Phon e Number [facility]- [address] [place] [address] [place] [address] System [address] Albumin (02/26/2019 12:44 PM [facility]) P athologist Signature Albumin, S 3.8 3.5 - 5.0 02/26/2019 [place] g/dL 4:24 PM [facility] Specimen Anatomical Collection Method Collection Time Receive d Time (Source) Location / / Volume Laterality Blood (Blood, 02/26/2019 12:44 02/26/2019 3:48 Venous) PM [facility] PM [facility] Sharif Nunez M.D. LAB BLOOD ADD-ON Performing Organization Address City/State/ZIP Code Phon e Number [facility]- [address] [place] [address] [place] [address] System [address] (ABNORMAL) CBC with Differential, Blood (02/26/2019 12:44 PM [facility]) Patholo gist Method Time Signature Hemoglobin 11.1 (L) 11.6 - 02/26/2019 FB60 15.0 g/dL 1:54 PM [facility] Hematocrit 35.8 35.5 - 02/26/2019 FB60 44.9 % 1:54 PM [facility] Erythrocytes 4.03 3.92 - 02/26/2019 FB60 5.13 1:54 PM [facility] x10(12)/L MCV 88.8 78.2 - 02/26/2019 FB60 97.9 fL 1:54 PM [facility] RBC Distrib Width 14.5 12.2 - 02/26/2019 FB60 16.1 % 1:54 PM [facility] Platelet Count 456 (H) 157 - 371 02/26/2019 FB60 x10(9)/L 1:54 PM [facility] Leukocytes 10.9 (H) 3.4 - 9.6 02/26/2019 FB60 x10(9)/L 1:54 PM [facility] Neutrophils 8.53 (H) 1.56 - 02/26/2019 FB60 6.45 1:54 PM [facility] x10(9)/L Lymphocytes 1.30 0.95 - 02/26/2019 FB60 3.07 1:54 PM [facility] x10(9)/L Monocytes 0.92 (H) 0.26 - 02/26/2019 FB60 0.81 1:54 PM [facility] x10(9)/L Eosinophils 0.09 0.03 - 02/26/2019 FB60 0.48 1:54 PM [facility] x10(9)/L Basophils 0.05 0.01 - 02/26/2019 FB60 0.08 1:54 PM [facility] x10(9)/L Specimen Anatomical Collection Method Collection Time Receive d Time (Source) Location / / Volume Laterality Blood (Blood, 02/26/2019 12:44 02/26/2019 Venous) PM [facility] 12:44 PM [facility] Sharif Nunez M.D. LAB BLOOD ADD-ON Performing Organization Address City/State/ZIP Code Phon e Number [address] [place] [address] [facility] [address] [place] [address] System [address] CRP - Miscellaneous Test (02/26/2019 12:44 PM [facility]) athologist Signature Test Name crp 02/26/2019 [facility] 7:17 PM [facility] Result 25.7 mg/L 02/26/2019 [facility] 7:17 PM [facility] Comment: Reference Range <=8 mg/L Performing Site: [facility] [address], [place] [address] Kitchen Steward: Meena Merida M.D. Specimen Anatomical Collection Method Collection Time Receive d Time (Source) Location / / Volume Laterality Varies (Blood, 02/26/2019 12:44 9 Venous) PM [facility] 12:44 PM [facility] Sharif Nunez M.D. LAB MISC ORDERABLES Performing Organization Address City/State/ZIP Code Phon e Number [facility]- [address] [place] [address] [facility] [place] [address] System in [place] [address] documented in this encounter Visit Diagnoses Diagnosis Medication Therapy Spike Driver Not Anticoa gulant Arthritis Rheumatoid (HCC) documented in this encounter Care Teams Straightener Hand Relationship Specialty Start Date End Date Terrence Christine M.D. PCP - General 02/25/19 12/26/19 documented as of this encounter
--- OUTSIDE RECORDS SUMMARY | 2022-02-28 01:38 | XMS_ITS | Encounter Summary ---
:1939 Author Organization [facility] Address [address] [place] [address] Care Team Providers Name Role Phone Kathy Gibson M.D. Primary Care Provider Reason for Visit Reason Comments Results Bone Density Appointment Request (Routine) - Closed Specialty Diagnoses / Procedures Referred By Contact Refer red To Contact Family Medicine Referral ID Status Reason Start Date Expiration Date Visits Requ ested Visits Authorized [id number] Closed 10/24/2018 10/24/2019 1 1 Encounter Details Date Type Department Care Team Description 10/26/2018 Office Visit Department of [facility] Kathy Gibson Obe sity Body Mass Index 30-39.9 Adult (Primary Dx); Medicine, Shyla Soria Osteopenia; Clinic, in [address] Hypertension And Chronic Kidney Disease Stage 3 ([facility]); [place], [place] Arthritis Rheumatoid (HCC); [address] [facility] [address] Other Specified Hearing Loss Bilateral; [place], [place] [phone] Primary Osteoa rthritis Multiple Sites [id number] (Work) [phone] Social History Tobacco Use Types Packs/Day Years Used Date Smoking Tobacco: Never Smokeless Tobacco: Never Alcohol Use Standard Drinks/Week Comments No 0 (1 standard drink = 0.6 oz pure alcoho l) Sex Assigned at Date Recorded Female 09/25/2017 1:20 PM CDT documented as of this encounter Last Filed Vital Signs Vital Sign Reading Time Taken Comments Blood Pressure 152/64 10/26/2018 2:10 PM CDT Pulse 64 10/26/2018 2:10 PM CDT Temperature 36.8 ??C (98.2 ??F) 10/26/2018 2:05 PM CDT Respiratory Rate 20 10/26/2018 2:05 PM CDT Oxygen Saturation - - Inhaled Oxygen Concentration - - Weight 69.8 kg (153 lb 15.9 oz) 10/26/2018 2:05 PM CDT Height 157 cm (5' 1.81) 10/26/2018 2:05 PM CDT Body Mass Index 28.34 10/26/2018 2:05 PM CDT documented in this encounter Progress Notes Kathy Gibson M.D. - 10/26/2018 2:15 PM CDT CHIEF COMPLAINT/REASON FOR VISIT Several issues HISTORY OF PRESENT ILLNESS This 77-year old female presents to clinic secondary to review her DEXA scan. Her study reveals osteopenia. She has known rheumatoid arthritis and is being treated for this issue. She has a follow-up appointment with her pot annealer Dr. Nunez 11/22/2018. She continues to have back pain. She trialed tramadol but it led to GI distress despite cutting it in quarters. She wonders what her options might be. Her blood pressure has been elevated in the clinic, but she brings in a reading of 135/65 from her home unit which she obtained this a.m.. She has not had her home unit correlated to a clinic unit. She would be happy to consider this option. She is taking other medications as prescribed. DAMASO whitten. CURRENT MEDICATIONS Current Outpatient Medications: ??? aspirin [address] tablet, Take 81 mg by mouth daily., Disp: , Rfl: ??? CALCIUM CARB/VIT D3/MINERALS (CALCIUM-VITAMIN D ORAL), Take 1 tablet by mouth daily. , Disp: , Rfl: ??? carvedilol (COREG) 12.5 mg tablet, Take 1 tablet (12.5 mg total) by mouth 2 (two) times a day with meals., Disp: 180 tablet, Rfl: 1 ??? furosemide (LASIX) 40 mg tablet, Take 0.5 tablets (20 mg total) by mouth 2 (two) times a day., Disp: 90 tablet, Rfl: 1 ??? hydroxychloroquine (PLAQUENIL) 200 mg tablet, , Disp: , Rfl: 0 ??? MULTIVITAMIN ORAL, Take 1 tablet by mouth daily. , Disp: , Rfl: ??? predniSONE (DELTASONE) 1 mg tablet, , Disp: , Rfl: 0 ??? predniSONE (DELTASONE) 5 mg tablet, Start 17.5 mg( 3.5 tablets) on September 24, 2017 then 15 mg(3 tablets daily) daily for Oct 2017 then 12.5 mg(2.5 tablets) daily in November . (Patient taking differently: Take 5 mg by mouth daily. Start 17.5 mg( 3.5 tablets) on September 24, 2017 then 15 mg(3 tablets daily) daily for Oct 2017 then 12.5 mg(2.5 tablets) daily in November . ), Disp: 109 tablet, Rfl: 3 ??? alendronate (FOSAMAX) 35 mg tablet, Take 1 tablet (35 mg total) by mouth once a week. Take with 8oz of water, on an empty stomach. Remain upright for 30min., Disp: 4 tablet, Rfl: 11 Allergies Allergen Reactions ??? Clonidine Hallucinations ??? Leflunomide Hallucinations ??? Lisinopril Other (see comments) Increased creatinine ??? Methotrexate Other (see comments) Did not feel well ??? Oxycodone Other (see comments) No reaction listed in [facility] ??? Sulfa (Sulfonamide Antibiotics) Other (see comments) No reaction listed in [facility] REVIEW OF SYSTEMS Negative review of major organ systems apart from that noted in the HPI and past medical surgical history. Past Medical History: Diagnosis Date ??? Cataract ??? Diabetes Mellitus NOS ??? Epicondylitis Medial Right 04/04/2017 ??? Fatigue 08/07/2013 ??? Gallbladder Disorder ??? Hyperlipidemia Mixed ??? Hypertension And Chronic Kidney Disease Stage 3 (HCC) ??? Osteopenia 10/17/2018 Confirmed on DEXA scan ??? Polymyalgia Rheumatica (HCC) ??? 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 Retention Urinary 02/01/2016 ??? Varicose Vein Lower Extremity With Edema 08/13/2013 Past Surgical History: Procedure Laterality Date ??? BREAST BIOPSY Right 1971 ??? BREAST BIOPSY Right 1970 ??? BREAST SURGERY Right 1983 Benign x 2 ??? CATARACT EXTRACTION AND INSERTION OF INTRAOCULAR LENS Bilateral ??? CHOLECYSTECTOMY ??? FLEXIBLE SIGMOIDOSCOPY 11/2003 ??? HYSTERECTOMY ABDOMINAL WITH SALPINGO - OOPHORECTOMY Bilateral 1991 Nonmalignant reasons with associated bladder repair ??? REPLACEMENT TOTAL KNEE Right 06/2017 ??? SACRAL NERVE STIMULATOR PLACEMENT 05/04/2016 Advanced trial of InterStim PREVENTIVE SERVICES Tobacco none Mammogram 01/11/2018 Pap smear nonapplicable secondary to stated age Colon screen 11/19/[address] Dominguez low risk,??currently declining additional evaluation?? Depression no Asthma no Lipids 12/26/2016,??increased Tdap 02/03/2016 Pneumovax 07/09/2005 Prevnar 01/19/2015 Influenza 01/11/2018 DEXA scan 10/16/2018, osteopenia ?? SOCIAL HISTORY Alcohol none Caffeine 1 cup of coffee each day with occasional tea Family History Problem Relation Age of Onset ??? Hypertension Brother ??? Diabetes Brother ??? Coronary artery disease Brother ??? Heart attack Brother In his 40s ??? Cataracts Father ??? Rheum arthritis Mother ??? Stroke Son Due to blood clot. ??? No Known Problems Son Vitals: 10/26/18 1405 10/26/18 1410 BP: (!) 170/64 152/64 BP Location: Left arm Left arm Patient Position: Sitting Sitting Cuff Size: Regular Regular Pulse: 64 64 Resp: 20 Temp: 36.8 ??C TempSrc: Temporal Weight: 69.8 kg Height: 157 cm PHYSICAL EXAM General: Neatly dressed well groomed. HEENT: Ears:TMs are jacobsen, good visualization of landmarks. Subjectively decreased hearing despite the use of hearing aids. Nose: Mucosal membranes pink and moist. Oral: No exudates. Teeth in fair/poor condition. No pharyngeal erythema. Neck: Range of motion consistent with patient's stated age body hab itus. Trachea midline. Lymph nodes: No cervical adenopathy. Thyroid: No thyroid masses, tenderness or enlargement. Heart: Regular rate and rhythm. No clicks, rubs or murmurs. Lungs: Clear to auscultation. No palpable chest wall masses. Abdomen: Soft, nontender, bowel sounds present, no organomegaly. Extremities: obvious degenerative changes of major and minor joints ASSESSMENT/PLAN 1. Rheumatoid arthritis superimposed on osteopenia and primary osteoarthritis with treatment and evaluation in process 2. Hypertension superimposed on chronic renal disease stage III with evaluation and treatment in process 3. Bilateral hearing loss with some but limited improvement with hearing aids 4. Obesity-stable Supportive measures discussed in detail. Reviewed her recent evaluations in detail. [facility] is given. Will consider trialing [id number] lidocaine patch. Hand wrote out this option for patient to purchase at the pharmacy. Follow up with her pot annealer as planned. She will have her blood pressure cuff correlated to a clinic unit. If it is stable she will continue onher current dose. If it is not correlating well will recommend increasing her carvedilol to 25 mg orally twice per day Risks and benefits of medications discussed. All questions answered. Signs and symptoms to lead to emergent evaluation are reviewed. See the medication reconciliation and preventive services. She will consider her options. Spent 15 of the 25 minute visit in discussion. documented in this encounter Plan of Treatment Not on filedocumented as of this encounter Visit Diagnoses Diagnosis Obesity Body Mass Index 30-39.9 Adult - Primary Osteopenia Hypertension And Chronic Kidney Disease Stage 3 (HCC) Arthritis Rheumatoid (HCC) Other Specified Hearing Loss Bilateral Primary Osteoarthritis Multiple Sites documented in this encounter Care Teams Irrigationist Relationship Specialty Start Date End Date Kathy Gibson M.D. PCP - General Family Medicine 12/15/17 02/24/19 documented as of this encounter
--- OUTSIDE RECORDS SUMMARY | 2022-02-28 01:38 | XMS_ITS | Encounter Summary ---
:1940 Author Organization [facility] Address [address] [place] [address] Care Team Providers Name Role Phone Noemi Lopez M.D., M.P.H. Primary Care Provider [phone] Reason for Visit Reason Comments Leg Pain Encounter Details Date Type Department Care Team Description 01/01/2020 Nurse Triage Department of [facility] Candi Morales R.N. Leg Pain Medicine, [facility], in [place], [place] [address] [place] [address] Social History Tobacco Use Types Packs/Day Years Used Date Smoking Tobacco: Never Smokeless Tobacco: Never Alcohol Use Standard Drinks/Week Comments No 0 (1 standard drink = 0.6 oz pure alcoho l) Sex Assigned at Date Recorded Female 09/25/2017 1:20 PM CDT documented as of this encounter Miscellaneous Notes Telephone Encounter - Candi Morales R.N. - 01/01/2020 9:07 AM CDT COVID-19 Nurse Line Screening ASSESSMENT COVID 19 Screening Have you had close contact with a person who has a LABORATORY CONFIRMED case of COVID-19 in the past14 days?: No - Continue screening. In the last 48 hours have you had any of the following symptoms?: No - Complete screening. Testing is not recommended at this time. May consider asymptomatic testing if advised for public health, work,school and travel related purposes PLAN Endpoint recommendation: Screening negative, testing not indicated at this time Care Points provided: STANDARD PRECAUTIONS FOR ALL PATIENTS: Wash hands often with soap and water for at least 20 seconds, especially after blowing your nose, coughing, sneezing, or having been in a public place. If soap and water aren't available, use a hand diagnostic radiologic technologist that contains at least 60% alcohol. Avoid close contact with anyone who may be exhibiting respiratory symptoms such as coughing and sneezing. Avoid touching your eyes, nose and mouth. Clean and disinfect frequently touched surfaces daily. Cover your mouth and nose with a cloth face cover when around others or in public. The cloth face cover is not a substitute for social distancing. Continue to keep about 6 feet between yourself andothers. Monitor for symptoms. Do not take your temperature within 30 minutes of exercise. If your test or screen is negative and new symptoms develop please contact your provider if it has been greaterthan 72 hours since you were tested. Educational Resource: https://www.cdc.gov/coronavirus/2019-ncov/ pvjleea-aiyunvc-hvfc/index.html Education: Patient/caregiver able to teach back Patient agreeable to plan of care: Yes The following references were used: [facility] novel coronavirus (COVID- 19) resources Telephone Encounter - Candi Morales R.N. - 01/01/2020 9:01 AM CDT Chief Complaint / Reason for Call Patient is a 79 y.o. female calling regarding Leg Pain. Assessment Concern: Ongoing LLE pain, burning sensation, for quite awhile. She reports red discoloration to same. Denies warmth, drainage, or swelling. Reports hx of prior cellulitis to area. Present for: awhile Home cares tried: Tylenol Calling to request: visit The recommended disposition is See a health care provider within 4 hours. Call warm transferred to scheduling to arrange visit. SEE PCP WITHIN 4 HOURS (OR PCP TRIAGE): * IF OFFICE WILL BE OPEN: You need to be seen within the next 3 or 4 hours. CALL BACK IF: * You become worse. Patient/Caregiver understands and will follow care advice? Yes, able to teach back Reason for Disposition ??? History of prior blood clot in leg or lungs (i.e., deep vein thrombosis, pulmonary embolism) Protocols used: LEG [id number]-SE documented in this encounter Plan of Treatment Not on filedocumented as of this encounter Visit Diagnoses Not on filedocumented in this encounter Care Teams Scanning Supervisor Relationship Specialty Start Date End Date Noemi Lopez M.D., M.P.H. PCP - General 12/27/19 12/14/[address] [place] [address] documented as of this encounter
--- OUTSIDE RECORDS SUMMARY | 2022-02-28 01:38 | XMS_ITS | Encounter Summary ---
:1940 Author Organization [facility] Address [address] [place] [address] Care Team Providers Name Role Phone Terrence Christine M.D. Primary Care Provider Reason for Visit Reason Comments Med Refill Encounter Details Date Type Department Care Team Description 03/28/2019 Refill Department of Family Medicine, Megha Hunter APRN, Med Refill [facility], in [place], [place] [address] [address] [place] [address] [phone] Social History Tobacco Use Types Packs/Day Years Used Date Smoking Tobacco: Never Smokeless Tobacco: Never Alcohol Use Standard Drinks/Week Comments No 0 (1 standard drink = 0.6 oz pure alcoho l) Sex Assigned at Date Recorded Female 09/25/2017 1:20 PM CDT documented as of this encounter Miscellaneous Notes Telephone Encounter - Yue Baldwin - 03/29/2019 10:31 AM CST 90 day suppply given 03/28/19 REPORT DEVELOPER documented in this encounter Plan of Treatment Not on filedocumented as of this encounter Visit Diagnoses Diagnosis Hypertension And Chronic Kidney Disease Stage 3 (HCC) documented in this encounter Care Teams Front Desk Representative Relationship Specialty Start Date End Date Terrence Christine M.D. PCP - General 02/25/19 12/26/19 documented as of this encounter
--- OUTSIDE RECORDS SUMMARY | 2022-02-28 01:38 | XMS_ITS | Encounter Summary ---
:1939 Author Organization [facility] Address [address] [place] [address] Care Team Providers Name Role Phone Terrence Christine M.D. Primary Care Provider Encounter Details Date Type Department Care Team Description 01/28/2019 Clinical Communication Department of Bibi Murray, Medicine, [place] [facility], in [address] [phone] [address] (Work) [phone] Social History Tobacco Use Types Packs/Day Years [...] on filedocumented in this encounter Care Teams Cat Driver Relationship Specialty Start Date End Date Terrence Christine M.D. PCP - General 02/25/19 12/26/19 documented as of this encounter
--- OUTSIDE RECORDS SUMMARY | 2022-02-28 01:38 | XMS_ITS | Encounter Summary ---
:1940 Author Organization [facility] Address [address] [place] [address] Care Team Providers Name Role Phone Terrence Christine M.D. Primary Care Provider Reason for Visit Reason Onset Date Comments Medication Question 01/28/2019 Encounter Details Date Type Department Care Team Description 01/28/2019 Clinical Communication Department of Kathy Gibson ication Question Family MedicineMonse M.D. [facility], [address] [place] [address] [facility] [address] [address] [facility] [phone] [place], [place] (Work) [phone] Social History Tobacco Use Types Packs/Day Years Used Date Smoking Tobacco: Never Smokeless Tobacco: Never Alcohol Use Standard Drinks/Week Comments No 0 (1 standard drink = 0.6 oz pure alcoho l) Sex Assigned at Date Recorded Female 09/25/2017 1:20 PM CDT documented as of this encounter Miscellaneous Notes Telephone Encounter - Julia Stallings, LReginaP.N. - 01/29/2019 9:41 AM CST Patient notified that she should be taking Coreg 25 mg in the morning and Coreg 25 mg in the pm. [facility] is aware of this information as well. ER AUTOMATIC Telephone Encounter - Denilson Burkett - 01/28/2019 4:55 PM CST Patient would like a call tonight so she know what to take, please advise. ER AUTOMATIC Telephone Encounter - Brando Butler M.D. - 01/28/2019 3:54 PM CST I would like the patient to be on Coreg 25 mg p.o. twice a day. Please refill at that dosage. Ask the patient call me with blood pressure and pulse log in a week so that we can decide if additional adjustments are needed. In regards to labs, she can check with her primary care provider to see if they would order Rheumatology labs in [place]. Thank you, Brando Butler ER AUTOMATIC Telephone Encounter - Julia Stallings L.P.N. - 01/28/2019 3:20 PM CST Vanessa called today because she is unable to get refills of her Coreg. Apparently she is taking two25 mg tablets in the morning and two 25 mg tablets in the afternoon/evening. According to what I last see, she was instructed to take one 25 mg tablet in the morning and one 25 tablet in the evening so essentially she is taking twice what was recommended. Her last three day BP readings are as follows: Monday: 129/60 Monday: 128/68 Monday: 138/73 Because she has been taking twice as much medication as recommended, she has exceeded the quantity limit on which insurance will pay. Please advise on recommendations. We will likely need to contact her pharmacy on this. Julia Em ER AUTOMATIC Telephone Encounter - Jacquelin Cheung - 01/28/2019 8:14 AM CST Reason for Communication: Pt called and and is confused about her Coreg 25 mg and 12.5 mg dose, and also she stated that her science analyst would like some blood work done But it is expensive for her to go to the [facility] and she was wondering if she could have those test done in [place] Current Can Nursing/Provider leave a detailed message: na Did the patient refuse triage through Nurse line? (for symptom based concerns): na Action Needed: please call pt and advise Name of Medication (if relevant): Coreg ER AUTOMATIC documented in this encounter Plan of Treatment Not on filedocumented as of this encounter Visit Diagnoses Not on filedocumented in this encounter Care Teams Data Warehouse Manager Relationship Specialty Start Date End Date Terrence Christine M.D. PCP - General 02/25/19 12/26/19 documented as of this encounter
--- OUTSIDE RECORDS SUMMARY | 2022-02-28 01:38 | XMS_ITS | Encounter Summary ---
:1939 Author Organization [facility] Address [address] [place] [address] Care Team Providers Name Role Phone Terrence Christine M.D. Primary Care Provider Encounter Details Date Type Department Care Team Description 04/23/2019 Clinical Communication Department of Urology Ashely Escalante in [place], , LIME PLANT OPERATOR, C.N.P. [place] [address] [place] [address] Social History Tobacco Use Types Packs/Day Years Used Date Smoking Tobacco: Never Smokeless Tobacco: Never Alcohol Use Standard Drinks/Week Comments No 0 (1 standard drink = 0.6 oz pure alcoho l) Sex Assigned at Date Recorded Female 09/25/2017 1:20 PM CDT documented as of this encounter Miscellaneous Notes Telephone Encounter - Soheila Vides LReginaP.N. - 04/23/2019 3:12 PM CST Urine catheter prescription faxed to [facility] [place] DEFENCE OFFICER documented in this encounter Plan of Treatment Not on filedocumented as of this encounter Visit Diagnoses Not on filedocumented in this encounter Care Teams Statistics Intern Relationship Specialty Start Date End Date Terrence Christine M.D. PCP - General 02/25/19 12/26/19 documented as of this encounter
--- OUTSIDE RECORDS SUMMARY | 2022-02-28 01:38 | XMS_ITS | Encounter Summary ---
:1939 Author Organization [facility] Address [address] [place] [address] Care Team Providers Name Role Phone Kathy Gibson M.D. Primary Care Provider Encounter Details Date Type Department Care Team Description 01/24/2019 Abstract [facility] THOMAS Aguayo ea Provider, Historical [address] [place] [address] Social History Tobacco Use Types Packs/Day Years [...] Name Priority Date/Time Associated Diagnosis Comme nts CBC WITH Routine 11/22/2018 9:10 AM Results f or this DIFFERENTIAL, B CDT procedure ar e in the results section. C-REACTIVE PROTEIN Routine 11/22/2018 9:10 AM Res ults for this (CRP), S/P CDT procedure are i n the results section. HEPATIC FUNCTION Routine 11/22/2018 9:10 AM Resul ts for this PANEL CDT procedure are i n the results section. BASIC METABOLIC Routine 11/22/2018 9:10 AM Result s for this PANEL, S/P CDT procedure are i n the results section. documented in this encounter Results CRP (C-Reactive Protein) (11/22/2018 9:10 AM CDT) P athologist Signature C-Reactive 2.07 EXTERNAL Protein (CRP), NON-INTERFACED S LAB Specimen (Source) Anatomical Location Collection Method / Collectio n Time Received Time / Laterality Volume Blood (Blood, Venous) Ordering Provider External M.D. LAB BLOOD ADD-ON Performing Organization Address [facility] Phon e Number EXTERNAL NON-INTERFACED LAB [address] [place], [place] [address] Hepatic function panel (11/22/2018 9:10 AM CDT) [facility] Method Time Signature Alanine 18 7 - 35 EXTERNAL Amniotransferase, LD NON-INTER FACE D LAB Aspartate 31 13 - 35 EXTERNAL Aminotransferase NON-INTERFACE (AST), S D LAB Specimen (Source) Anatomical Location Collection Method / Collectio n Time Received Time / Laterality Volume Blood (Blood, Venous) Ordering Provider External M.D. LAB BLOOD ADD-ON Performing Organization Address [facility] Phon e Number EXTERNAL NON-INTERFACED LAB [address] [place], [place] [address] (ABNORMAL) Basic Metabolic Panel (11/22/2018 9:10 AM CDT) athologist Signature Creatinine 1.110 (A) 0.5 - 1.1 EXTERNAL NON-INTERFACED LAB Specimen (Source) Anatomical Location Collection Method / Collectio n Time Received Time / Laterality Volume Blood (Blood, Venous) Ordering Provider External M.D. LAB BLOOD ADD-ON Performing Organization Address [facility] Phon e Number EXTERNAL NON-INTERFACED LAB [address] [place], [place] [address] (ABNORMAL) CBC with Differential, Blood (11/22/2018 9:10 AM CDT) [facility] Method Time Signature Hemoglobin 12.0 12.0 - EXTERNAL 16.0 NON-INTERFACE D LAB Hematocrit 35 (A) 36 - 46 % EXTERNAL NON-INTERFACE D LAB Absolute 9.26 (A) 1.30 - EXTERNAL Neutrophils 8.30 NON-INTERFACE D LAB Platelet Count 387 150 - 399 EXTERNAL NON-INTERFACE D LAB Auto WBC 11.7 (A) 3.3 - 10.0 EXTERNAL 10*3/mL NON-INTERFACE D LAB Specimen (Source) Anatomical Location Collection Method / Collectio n Time Received Time / Laterality Volume Blood (Blood, Venous) Ordering Provider External M.D. LAB BLOOD ADD-ON Performing Organization Address [facility] Phon e Number EXTERNAL NON-INTERFACED LAB [address] [place], [place] [address] documented in this encounter Visit Diagnoses Not on filedocumented in this encounter Care Teams Lens Polisher Hand Relationship Specialty Start Date End Date Kathy Gibson M.D. PCP - General Family Medicine 12/15/17 02/24/19 documented as of this encounter
--- OUTSIDE RECORDS SUMMARY | 2022-02-28 01:38 | XMS_ITS | Encounter Summary ---
:1939 Author Organization [facility] Address [address] [place] [address] Care Team Providers Name Role Phone Terrence Christine M.D. Primary Care Provider Encounter Details Date Type Department Care Team Description 11/15/2019 Orders Only Department of [place]rology [place], [place] RADIOISOTOPE TECHNOLOGIST, C.N.P. [address] [place] [address] [place] [address] (Wo rk) Social History Tobacco Use Types [...] on filedocumented in this encounter Care Teams Database Analyst Relationship Specialty Start Date End Date Terrence Christine M.D. PCP - General 02/25/19 12/26/19 documented as of this encounter
--- OUTSIDE RECORDS SUMMARY | 2022-02-28 01:38 | XMS_ITS | Encounter Summary ---
:[address] [facility] Address [address] [place] [address] Care Team Providers Name Role Phone Terrence Christine M.D. Primary Care Provider Encounter Details Date Type Department Care Team Description 03/22/2019 Orders Only Department of Urology Verónica Escalante, Retention Urinary (Primary Dx); in [facility] LARS, C.N.P. Atonic Bladder [place] [address] [place] [address] [phone] Social History Tobacco Use Types Packs/Day Years [...] Bladder documented in this encounter Care Teams Glass Products Inspector Relationship Specialty Start Date End Date Terrence Christine M.D. PCP - General 02/25/19 12/26/19 documented as of this encounter
--- OUTSIDE RECORDS SUMMARY | 2022-02-28 01:38 | XMS_ITS | Encounter Summary ---
:1939 Author Organization [facility] Address [address] [place] [address] Care Team Providers Name Role Phone Kathy Gibson M.D. Primary Care Provider Reason for Visit Reason Comments Med Refill Encounter Details Date Type Department Care Team Description 01/26/2019 Refill Department of Cardiovascular Kathy Madsen M.D. Med Refill Diseases in [place], [place] [address], [place] [address] [place] [address] [facility] [phone] Social History Tobacco Use Types Packs/Day Years Used Date Smoking Tobacco: Never Smokeless Tobacco: Never Alcohol Use Standard Drinks/Week Comments No 0 (1 standard drink = 0.6 oz pure alcoho l) Sex Assigned at Date Recorded Female 09/25/2017 1:20 PM CDT documented as of this encounter Miscellaneous Notes Telephone Encounter - Analy Swanson R.N. - 01/28/2019 10:59 AM HORSE STUD MANAGER Patient reports that she is currently taking carvedilol 50 mg (2 tablets) twice a day. She is not having any symptoms. E STUD MANAGER Telephone Encounter - Brando Butler M.D. - 01/28/2019 10:17 AM HORSE STUD MANAGER Please confirm with the patient the current dosage of carvedilol she is using so that we can properly refill the medication. My impression was that she was taking 25 mg twice a day but the dosage may be higher (based on routing comments received). Please also confirm if she is having any side effects with the medication. Thank you, Brando Butler. E STUD MANAGER Telephone Encounter - Kathy Gibson M.D. - 01/28/2019 8:10 AM CST Please forward to Cardiology who ordered the medication. E STUD MANAGER documented in this encounter Plan of Treatment Not on filedocumented as of this encounter Visit Diagnoses Not on filedocumented in this encounter Care Teams Meal Temperer Relationship Specialty Start Date End Date Kathy Gibson M.D. PCP - General Family Medicine 12/15/17 02/24/19 documented as of this encounter
--- OUTSIDE RECORDS SUMMARY | 2022-02-28 01:38 | XMS_ITS | Encounter Summary ---
:1939 Author Organization [facility] Address [address] [place] [address] Care Team Providers Name Role Phone Kathy Gibson M.D. Primary Care Provider Encounter Details Date Type Department Care Team Description 10/03/2018 Orders Only Department of [facility] Kathy Gibson, Hyp ertension And Medicine, [facility], in [address] Stage 3 (HCC) [place], [place] [address] [address] [place], [place] [phone] [address] (Work) [phone] Social History Tobacco Use Types Packs/Day Years [...] (HCC) documented in this encounter Care Teams Marketing Project Manager Relationship Specialty Start Date End Date Kathy Gibson M.D. PCP - General Family Medicine 12/15/17 02/24/19 documented as of this encounter
--- OUTSIDE RECORDS SUMMARY | 2022-02-28 01:38 | XMS_ITS | Encounter Summary ---
:1940 Author Organization [facility] Address [address] [place] [address] Care Team Providers Name Role Phone Kathy Gibson M.D. Primary Care Provider Encounter Details Date Type Department Care Team Description 10/16/2018 Hospital Encounter Department of Kathy Gibson Radiology in [facility] Shea Osteoporosis [place], [place] [address] [address] [phone] Social History Tobacco Use Types Packs/Day Years [...] 1 mg daily. 0 01/25/20 18 tablet carvedilol (COREG) 12.5 mg Take 1 tablet 180 tablet 1 201811/05/2018 tablet (12.5 mg total) by mouth 2 (two) times a day with meals. furosemide (LASIX) 40 mg Take 0.5 tablets [...] Diagnosis BMD BONE DENSITY RAD - Routine 10/16/2018 1:13 Screening Results for this SPINE HIPS (most inpatients PM CDT Osteoporosis procedure a re in and all the results outpatients) section. documented in this encounter Results BMD Bone Density Spine Hips (10/16/2018 1:13 PM CDT) Anatomical Region Laterality Modality Hip, Lumbar Spine, Nuclear Medicine RST LOS, N/A Radiographic Imaging Musculoskeletal ARZ LOS, Muskuloskeletal FLA LOS Specimen (Source) Anatomical Collection Method Collection Time Re ceived Time Location / / Volume Laterality 10/16/2018 1:15 PM CDT Impressions 10/16/2018 1:17 PM CDT Low bone density (osteopenia). Narrative 10/16/2018 1:17 PM CDT EXAM: BMD BONE DENSITY SPINE HIPS COMPARISON: 02/25/2008 Clinical Informatics Physician/Model: [facility] FINDINGS: ?? LUMBAR SPINE L1-L4 included unless otherwise indicate d. Lumbar BMD: 1.137 gm/cm2 T-score: -0.5 HIP(S) Lowest femoral BMD: 0.834 gm/cm 2 Lowest T-score: -1.5 FRAX 10 year probability of major osteop orotic fracture 24.4 % FRAX 10 year probability of hip fracture ??7.0 % FRAX scores: Not clinically validated fo r patients with history of therapy with bisphosphonates in the past two years, c alcitonin in the last year, PTH in the last year, Denosumab in the last year. ? ?Calcium and vitamin D do NOT constitute treatment' in this context. ??All treat ment decisions require clinical judgement and consideration of individual patient factors which may not be captured in the FRAX model and the risk of fracture may be over- or under-estimated by FRAX. Treatment recommended for: Patients with hip or vertebral fracture (clinical or morphometric). Patients with osteoporosis at the spine and/or hip as defined by T-score <= -2.5. Postmenopausal women or men age 50 and o lder with low bone mass (T-score -1 to -2.5, osteopenia) at the femoral neck, t otal hip, or spine and 10 year hip fracture probability >3% or a 10 year al l major osteoporosis related fracture probability of >20% based on the [place] ad apted WHO absolute risk model. Exclude secondary causes of low bone den sity in the appropriate clinical setting. Follow-up exams should be performed at n o sooner than two-year intervals. Direct comparison can only be performed on exams performed at the same facility. World Health Organization T-score criter ia: 0 to -1.0 ?? Normal range < -1.0 to > -2.5 ?? Low bone density (os teopenia) -2.5 or less ?? Osteoporosis Procedure Note Johnathan Walsh M.D. - 10/16/2018Forma tting of this note might be different from the original. EXAM: BMD BONE DENSITY SPINE HIPS COMPARISON: 02/25/2008 Clinical Informatics Physician/Model: [facility] FINDINGS: LUMBAR SPINE L1-L4 included unless otherwise indicate d. Lumbar BMD: 1.137 gm/cm2 T-score: -0.5 HIP(S) Lowest femoral BMD: 0.834 gm/cm 2 Lowest T-score: -1.5 FRAX 10 year probability of major osteop orotic fracture 24.4 % FRAX 10 year probability of hip fracture 7.0 % FRAX scores: Not clinically validated fo r patients with history of therapy with bisphosphonates in the past two years, c alcitonin in the last year, PTH in the last year, Denosumab in the last year. C alcium and vitamin D do NOT constitute treatment' in this context. All treatme nt decisions require clinical judgement and consideration of individual patient factors which may not be captured in the FRAX model and the risk of fracture may be over- or under-estimated by FRAX. Treatment recommended for: Patients with hip or vertebral fracture (clinical or morphometric). Patients with osteoporosis at the spine and/or hip as defined by T-score <= -2.5. Postmenopausal women or men age 50 and o lder with low bone mass (T-score -1 to -2.5, osteopenia) at the femoral neck, t otal hip, or spine and 10 year hip fracture probability >3% or a 10 year al l major osteoporosis related fracture probability of >20% based on the [place] ad apted WHO absolute risk model. Exclude secondary causes of low bone den sity in the appropriate clinical setting. Follow-up exams should be performed at n o sooner than two-year intervals. Direct comparison can only be performed on exams performed at the same facility. World Health Organization T-score criter ia: 0 to -1.0 Normal range < -1.0 to > -2.5 Low bone density (osteo penia) -2.5 or less Osteoporosis IMPRESSION: Low bone density (osteopenia). Kathy Gibson M.D. IMG DXA PROCEDURES documented in this encounter Visit Diagnoses Diagnosis Screening Osteoporosis documented in this encounter Care Teams Wax Pattern Assembler Relationship Specialty Start Date End Date Kathy Gibson M.D. PCP - General Family Medicine 12/15/17 02/24/19 documented as of this encounter
--- OUTSIDE RECORDS SUMMARY | 2022-02-28 01:38 | XMS_ITS | Encounter Summary ---
:1940 Author Organization [facility] Address [address] [place] [address] Care Team Providers Name Role Phone Kathy Gibson M.D. Primary Care Provider Encounter Details Date Type Department Care Team Description 10/03/2018 Clinical Communication Department of Brando Butler Cardiovascular Diseases [place] in [address], [place] [address] [facility] [phone] Social History Tobacco Use Types Packs/Day Years Used Date Smoking Tobacco: Never Smokeless Tobacco: Never Alcohol Use Standard Drinks/Week Comments No 0 (1 standard drink = 0.6 oz pure alcoho l) Sex Assigned at Date Recorded Female 09/25/2017 1:20 PM CDT documented as of this encounter Miscellaneous Notes Telephone Encounter - Teetee Cespedes R.N. - 10/03/2018 5:08 PM CDT INFORMATION DISCUSSED Reviewed Dr. Butler's note with patient. Patient states she has no side effects from increase in carvedilol. Patient stated she is already taking 18.75mg per day (1.5 tabs of 12.5mg of carvedilol twice a day). Patient states she was informed by a nurse to do this last time. Unable to find this docu mentation. Had patient read carvedilol bottle - confirmed it was 12.5mg tabs. Did not propose increase in carvedilol. Patient notes she is taking 20mg of lasix twice a day. She is splitting her 40mg tabs to do so. Patient states she is eating healthier and lost ten pounds of weight in the last 2 months. Patient states she feels healthier at this time. Patient stated her last systolic blood pressure in a clinic setting (rheumatology) was 126 when it was previously 140 at home. Informed patient to keep a daily weight diary along with a blood pressure log for the next 2-3 weeks as referred to in Dr. Butler's note. Reviewed how to take daily weights. Encouraged patient to continue with good documentation of vital signs. PLAN Disposition/Recommendation: Will notify Dr. Butler - await further instruction Education: patient/caller able to teach back Caller agreeable to plan of care: yes The following references were used: provider - Dr. Butler Telephone Encounter - Brando Butler M.D. - 10/03/2018 4:09 PM CDT I just received the patient's blood pressure log from August 2018. She has done a good job documentingher vitals. The log shows that the patient's blood pressure has been persistently elevated, around 140 over 60-70 mmHg. Heart rate has been around 60-70 beats per minute. Please check with the patient on how she is tolerating the higher dosage of carvedilol. Any side effects? Please confirm she is currently taking 12.5 mg p.o. twice a day. If that is the case, I will recommend further up titration to18.75 mg twice a day with repeat blood pressure log in 2-3 weeks. Please propose. Also make sure sheis taking furosemide 20 mg twice a day. If blood pressure is persistently elevated, may consider ambulatory blood pressure monitor to make sure we are not missing a white coat hypertension component. Thank you, Brando Butler documented in this encounter Plan of Treatment Not on filedocumented as of this encounter Visit Diagnoses Not on filedocumented in this encounter Care Teams Retention Representative Relationship Specialty Start Date End Date Kathy Gibson M.D. PCP - General Family Medicine 12/15/17 02/24/19 documented as of this encounter
--- OUTSIDE RECORDS SUMMARY | 2022-02-28 01:38 | XMS_ITS | Encounter Summary ---
:1940 Author Organization [facility] Address [address] [place] [address] Care Team Providers Name Role Phone Terrence Christine M.D. Primary Care Provider Reason for Visit Reason Comments Med Refill Encounter Details Date Type Department Care Team Description 06/24/2019 Refill Department of Family Medicine, Megha Hunter APRN, Med Refill [facility], in [place], [place] [address] [address] [place] [address] [phone] Social History Tobacco Use Types Packs/Day Years Used Date Smoking Tobacco: Never Smokeless Tobacco: Never Alcohol Use Standard Drinks/Week Comments No 0 (1 standard drink = 0.6 oz pure alcoho l) Sex Assigned at Date Recorded Female 09/25/2017 1:20 PM CDT documented as of this encounter Miscellaneous Notes Telephone Encounter - Jrei Morales - 06/24/2019 3:16 PM CDT Nurse review: Unable to forward request to provider; Previous Dr. Gibson patient whom has yet to see new assigned PCP documented in this encounter Plan of Treatment Not on filedocumented as of this encounter Visit Diagnoses Diagnosis Hypertension And Chronic Kidney Disease Stage 3 (HCC) documented in this encounter Care Teams Maintenance Repairman Relationship Specialty Start Date End Date Terrence Christine M.D. PCP - General 02/25/19 12/26/19 documented as of this encounter
[2022-02-28 01:39] LABS: Blood Urea Nitrogen* 18 mg/dL (7-30); Carbon Dioxide* 19 mmol/L (20-32); Chloride* 107 mmol/L (96-114); Estimated Glomerular Filt Rate 56 ml/min; Glucose* 124 mg/dL (60-115); Potassium* 3.8 mmol/L (3.6-5.1); Sodium* 133 mmol/L (135-149)
--- OUTSIDE RECORDS SUMMARY | 2022-02-28 01:39 | XMS_ITS | Encounter Summary ---
:1940 Author Organization [facility] Address [address] [place] [address] Care Team Providers Name Role Phone Kathy Gibson M.D. Primary Care Provider Reason for Visit Reason Onset Date Comments Communication 07/26/2018 Encounter Details Date Type Department Care Team Description 07/26/2018 Clinical Communication Department of Urology Priti Cintron Communication in [facility] michelle Jain, R.N. [address] [place] [phone] Social History Tobacco Use Types Packs/Day Years Used Date Smoking Tobacco: Never Smokeless Tobacco: Never Alcohol Use Standard Drinks/Week Comments No 0 (1 standard drink = 0.6 oz pure alcoho l) Sex Assigned at Date Recorded Female 09/25/2017 1:20 PM CDT documented as of this encounter Miscellaneous Notes Telephone Encounter - Soheila Vides L.P.NRegina - 07/27/2018 9:34 AM CDT Pt notified of recommendations Telephone Encounter - Priti Cintron, RReginaNRegina - 07/26/2018 4:44 PM CDT Patient left a message inquiring about having to turn interstim battery off for upcoming bone density scan or echocardiogram. Discussed with Provider Ava, no need to turn batter off for either tests. Attempted to call patient back and inform, but received busy signal. documented in this encounter Plan of Treatment Not on filedocumented as of this encounter Visit Diagnoses Not on filedocumented in this encounter Care Teams Heel Seat Laster Relationship Specialty Start Date End Date Kathy Gibson M.D. PCP - General Family Medicine 12/15/17 02/24/19 documented as of this encounter
--- OUTSIDE RECORDS SUMMARY | 2022-02-28 01:39 | XMS_ITS | Encounter Summary ---
:1940 Author Organization [facility] Address [address] [place] [address] Care Team Providers Name Role Phone Kathy Gibson M.D. Primary Care Provider Encounter Details Date Type Department Care Team Description 08/07/2018 Hospital Encounter Department of Ignacio Mead Arthmoriah plasty Total Radiology in [place] Knee Replacement [place], [address]t [facility] [address] [place], [place] [phone] Social History Tobacco Use Types Packs/Day [...] daily. 0 01/25/20 18 tablet carvedilol (COREG) 6.25 mg Take 1 tablet 60 tablet 11 201808/10/2018 tablet (6.25 mg total) by mouth 2 (two) times a day with meals. furosemide (LASIX) 40 mg Take 0.5 tablets 90 tablet 3 07/2510/03/2018 tabletIndications: (20 mg total) by Hypertension And [...] Name Priority Date/Time Associated Comments Diagnosis DX KNEE RIGHT RAD - Routine 08/07/2018 10:25 Arthroplasty Total Res ults for this STANDING RIGHT 3 (most inpatients AM CDT Knee Replacement pro cedure are in VIEWS and all Status Post Right the result s outpatients) section. documented in this encounter Results DX Knee Right Standing Right 3 Views (08/07/2018 10:25 AM CDT) Anatomical Region Laterality Modality Lower Extremity, Knee, Musculoskeletal RST LOS, Right Digital Radiography Musculoskeletal ARZ LOS, Muskuloskeletal FLA LOS Specimen (Source) Anatomical Collection Method Collection Time Re ceived Time Location / / Volume Laterality 08/07/2018 10:52 AM CDT Impressions 08/07/2018 10:54 AM CDT IMPRESSION: Right TKA. No evidence for hardware failure. Small knee effusion versus synovitis. Left knee arthropathy and chondrocalcino sis. Narrative 08/07/2018 10:54 AM CDT EXAM: DX KNEE RIGHT STANDING RIGHT 3 VIEWS Procedure Note Robson Carver M.D. - 08/07/2018Formatt ing of this note might be different from the original. EXAM: DX KNEE RIGHT STANDING RIGHT 3 VIE WS IMPRESSION: Right TKA. No evidence for h ardware failure. Small knee effusion versus synovitis. Left knee arthropathy and chondrocalcino sis. Ignacio Mead M.D. [facility]JA HORNER documented in this encounter Visit Diagnoses Diagnosis Arthroplasty Total Knee Replacement Stat us Post Right documented in this encounter Care Teams Metal Moulder Relationship Specialty Start Date End Date Kathy Gibson M.D. PCP - General Family Medicine 12/15/17 02/24/19 documented as of this encounter
--- OUTSIDE RECORDS SUMMARY | 2022-02-28 01:39 | XMS_ITS | Encounter Summary ---
:[address] [facility] Address [address] [place] [address] Care Team Providers Name Role Phone Kathy Gibson M.D. Primary Care Provider Encounter Details Date Type Department Care Team Description 06/22/2018 Clinical Communication Department of Sheyla Aguilar, Orthopedic Surgery [place], [place] [address] [phone] Social History Tobacco Use Types Packs/Day Years Used Date Smoking Tobacco: Never Smokeless Tobacco: Never Alcohol Use Standard Drinks/Week Comments No 0 (1 standard drink = 0.6 oz pure alcoho l) Sex Assigned at Date Recorded Female 09/25/2017 1:20 PM CDT documented as of this encounter Miscellaneous Notes Telephone Encounter - Sheyla Aguilar L.PReginaN. - 06/22/2018 8:22 AM CDT Completed 1 year right TKA OKS form documented in this encounter Plan of Treatment Not on filedocumented as of this encounter Visit Diagnoses Not on filedocumented in this encounter Care Teams Tractor Trailer Driver Relationship Specialty Start Date End Date Kathy Gibson M.D. PCP - General Family Medicine 12/15/17 02/24/19 documented as of this encounter
--- OUTSIDE RECORDS SUMMARY | 2022-02-28 01:39 | XMS_ITS | Encounter Summary ---
:1940 Author Organization [facility] Address [address] [place] [address] Care Team Providers Name Role Phone Kathy Gibson M.D. Primary Care Provider Reason for Referral Outpatient (Routine) - Closed Specialty Diagnoses / Procedures Referred By Contact Refer red To Contact Urology Verónica Escalante APRN, C.N.P. [facility] [address] [place] [phone] Referral ID Status Reason Start Date Expiration Date Visits Requ ested Visits Authorized [id number] Closed 05/28/2018 05/28/2019 1 1 ESTING MANAGER Reason for Visit Reason Comments Follow-up 3 month, urinary retention, self cath tid Appointment Request (Routine) - Closed Specialty Diagnoses / Procedures Referred By Contact Refer red To Contact Urology Referral ID Status Reason Start Date Expiration Date Visits Requ ested Visits Authorized [id number] Closed 05/09/2018 05/09/2019 1 1 Encounter Details Date Type Department Care Team Description 05/28/2018 Office Visit Department of Urology Verónica Escalante, Retention Urinary (Primary Dx); in [place], C.N.PRegina Infection Urinary Tract Recurrent [place] [address] [phone] Social History Tobacco Use Types Packs/Day Years Used Date Smoking Tobacco: Never Smokeless Tobacco: Never Alcohol Use Standard Drinks/Week Comments No 0 (1 standard drink = 0.6 oz pure alcoho l) Sex Assigned at Date Recorded Female 09/25/2017 1:20 PM CDT documented as of this encounter Last Filed Vital Signs Vital Sign Reading Time Taken Comments Blood Pressure 166/67 05/28/2018 11:17 AM HARVESTING MANAGER Pulse 78 05/28/2018 11:17 AM HARVESTING MANAGER Temperature 36.8 ??C (98.2 ??F) 05/28/2018 11:17 AM HARVESTING MANAGER Respiratory Rate - - Oxygen Saturation - - Inhaled Oxygen Concentration - - Weight - - Height - - Body Mass Index - - documented in this encounter Progress Notes Verónica Escalante, LARS, C.N.P. - 05/28/2018 11:30 AM CST SUBJECTIVE CHIEF COMPLAINT/REASON FOR VISIT Urinary Retention, Self intermittent catheterization HISTORY OF PRESENT ILLNESS Zoe is a very pleasant 77 year old female here today for a follow-up for urinary retention, recurrent UTI, and self intermittent catheterization. She also had InterStim implantation, this has been onprogram 3 at 1.8. She states that she has not felt any stimulation, she does have her net developer programmer with her today. She has not had any symptoms of urinary tract infection. She did have a fall earlier this year and is now on Coumadin. The following portions of the patient's history were reviewed and updated as appropriate: allergies,current medications, family history, medical history, social history, surgical history and problem list. REVIEW OF SYSTEMS Gastrointestinal: Negative for constipation and diarrhea. Genitourinary: Positive for difficulty urinating. Negative for incontinence, pain with urination, hematuria, urgency and frequent urination. She caths 3 times daily, only voids a few drops before cathing. OBJECTIVE Vitals: 05/28/18 1117 BP: (!) 166/67 Patient Position: Sitting Pulse: 78 Temp: 36.8 ??C PHYSICAL EXAM Vitals and nursing note reviewed. [...] edema or ulcerations. ASSESSMENT / PLAN #1 Urinary Retention, InterStim in place At this time, she is doing quite well. She is cathing 3 times each day and is satisfied with her supplies. She did use her controller to increase her InterStim voltage to 2.4. She does not have any issues or concerns at this time. We will see her again in 6 months, sooner if needed. Signed by: Verónica Escalante APRN, C.N.P. 05/28/2018 11:55 AM ESTING MANAGER documented in this encounter Plan of Treatment Scheduled Referrals Name Type Priority Associated Diagnoses Order S [facility] Urology office Outpatient Referral Routine Expect ed: visit (clinic) 11/28/2018 (Approximate), Expires: 05/28/2021 documented as of this encounter Visit Diagnoses Diagnosis Retention Urinary - Primary Infection Urinary Tract Recurrent documented in this encounter Care Teams Package Handler Relationship Specialty Start Date End Date Kathy Gibson M.D. PCP - General Family Medicine 12/15/17 02/24/19 documented as of this encounter
--- OUTSIDE RECORDS SUMMARY | 2022-02-28 01:39 | XMS_ITS | Encounter Summary ---
:1940 Author Organization [facility] Address [address] [place] [address] Care Team Providers Name Role Phone Kathy Gibson M.D. Primary Care Provider Reason for Referral Outpatient (Routine) - Closed Specialty Diagnoses / Referred By Contact Referred To Contact Procedures Cardiovascular Diseases / Diagnoses Hypertension And Chronic Kidney Disease Stage 3 (HCC) Kathy Gibson, [facility] Cardiovascular Disease [place] [address] [place] [address] Referral ID Status Reason Start Date Expiration Date Visits Requ ested Visits Authorized [id number] Closed 05/23/2018 05/23/2019 1 1 LANCE GRAPHIC DESIGNER Reason for Visit Reason Comments Follow-up Encounter Details Date Type Department Care Team Description 05/23/2018 Office Visit Department of Family Kathy Gibson, Hyp ertension And Chronic Kidney Disease Stage 3 (HCC) (Primary Dx); Medicine, Shyla Soria Arthritis Rheumatoid ([facility]); Clinic, in [address] Diabetes Mellitus Type 2 ([facility]); [place], [place] Hyperlipidemia Mixed; [address] [facility] [address] Obesity Body Mass Index 30-39.9 Adult; [place], [place] [phone] Senior [facility] Anti coagulant Treatment [Z79.01]; [address] (Work) Thrombosis Deep Vein Personal History [phone] Social History Tobacco Use Types Packs/Day Years Used Date Smoking Tobacco: Never Smokeless Tobacco: Never Alcohol Use Standard Drinks/Week Comments No 0 (1 standard drink = 0.6 oz pure alcoho l) Sex Assigned at Date Recorded Female 09/25/2017 1:20 PM CDT documented as of this encounter Last Filed Vital Signs Vital Sign Reading Time Taken Comments Blood Pressure 178/80 05/23/2018 10:19 AM FREELANCE GRAPHIC DESIGNER Pulse 76 05/23/2018 10:16 AM FREELANCE GRAPHIC DESIGNER Temperature 36.1 ??C (97 ??F) 05/23/2018 10:16 AM FREELANCE GRAPHIC DESIGNER Respiratory Rate 16 05/23/2018 10:16 AM FREELANCE GRAPHIC DESIGNER Oxygen Saturation - - Inhaled Oxygen Concentration - - Weight 76.6 kg (168 lb 14 oz) 05/23/2018 10:16 AM FREELANCE GRAPHIC DESIGNER Height - - Body Mass Index 31.88 04/05/2018 10:00 AM FREELANCE GRAPHIC DESIGNER documented in this encounter Progress Notes Kathy Gibson M.D. - 05/23/2018 10:30 AM CST CHIEF COMPLAINT/REASON FOR VISIT Follow-up HISTORY OF PRESENT ILLNESS This 77-year old female presents to clinic secondary to follow-up of her blood pressure. She has marked sensitivities to multiple medications. She has increased her diltiazem to 300 mg and so far is tolerating it fairly well although she continues to have labile hypertension. This is been a longstanding problem. She has never seen a wall worker for this issue. She is having no shortness of breath. She is having no palpitations. She is having no change in her bowel or bladder function. She is in process of having a prednisone wean in terms of her rheumatoid arthritis and has an appointment to see her carton forming machine adjuster to 11/13/2018. She is taking her medications as prescribed EMR reviewed. CURRENT MEDICATIONS Current Outpatient Prescriptions: ??? CALCIUM CARB/VIT D3/MINERALS (CALCIUM-VITAMIN D ORAL), Take 1 tablet by mouth daily. , Disp: , Rfl: ??? dilTIAZem CD (CARDIZEM CD/CARTIA XT) 300 mg 24 hr capsule, Take 1 capsule (300 mg total) by mouth daily., Disp: 30 capsule, Rfl: 0 ??? furosemide (LASIX) 40 mg tablet, Take 1 tablet (40 mg total) by mouth daily., Disp: 90 tablet, Rfl: 3 ??? hydroxychloroquine (PLAQUENIL) 200 mg tablet, , [...] in November . (Patient taking differently: Take 8 mg by mouth daily. Start 17.5 mg( 3.5 tablets) on September 24, 2017 then 15 mg(3 tablets daily) daily for Oct 2017 then 12.5 mg(2.5 tablets) daily in November . ), Disp: 109 tablet, Rfl: 3 ??? raNITIdine (ZANTAC) 150 mg tablet, Take 1 tablet (150 mg total) by mouth 2 (two) times a day., Disp: 60 tablet, Rfl: 0 ??? warfarin (COUMADIN) 2.5 mg tablet, 2tab(5mg) Mon,Sat and 3 tab(7.5mg) all the other days of weekTake warfarin in evening, Disp: 60 tablet, Rfl: 1 ??? amoxicillin-pot clavulanate (AUGMENTIN) 875-125 mg per tablet, , Disp: , Rfl: 0 Allergies Allergen Reactions ??? Clonidine Hallucinations ??? Leflunomide Hallucinations ??? Methotrexate Other (see comments) Did not [...] Chronic Kidney Disease Stage 3 (HCC) ??? Polymyalgia Rheumatica (HCC) ??? Primary Osteoarthritis [...] secondary to stated age Colon screen 11/19/[address] Dominguez low risk,??currently declining additional evaluation?? Depression no Asthma no Lipids 12/26/2016,??increased Tdap 02/03/2016 Pneumovax 07/09/2005 Prevnar 01/19/2015 Influenza 01/11/2018 DEXA scan 07/18/2005 ?? SOCIAL HISTORY Alcohol none Caffeine a cup of coffee each day Family History Problem Relation Age of Onset ??? Hypertension Brother ??? Diabetes Brother ??? Coronary artery disease Brother ??? Heart attack Brother In his 40s ??? Cataracts Father ??? Rheum arthritis Mother ??? Stroke Son Due to blood clot. ??? No Known Problems Son Vitals: 05/23/18 1016 05/23/18 1019 BP: (!) 170/74 (!) 178/80 Patient Position: Sitting Sitting Pulse: 76 Temp: 36.1 ??C Resp: 16 Weight: 76.6 kg TempSrc: Temporal Repeat blood pressure 178/80 PHYSICAL EXAM General: Neatly dressed well groomed. HEENT: PERRL. EOMs are full. Ears: TMs are jacobsen, good visualization of landmarks. Nose: Mucosal membranes pink and moist. Oral: No exudates. Teeth in good condition. No pharyngeal erythema. Neck: Rangeof motion consistent with patient's stated age body habitus. Trachea midline. Lymph nodes: No cervical adenopathy. Thyroid: No thyroid masses, tenderness or enlargement. Heart: Regular rate and rhythm. No clicks, rubs or murmurs. Lungs: Clear to auscultation. No palpable chest wall masses. Abdomen: Soft, nontender, bowel sounds present, no organomegaly although exam is somewhat limited secondary to body habitus. ASSESSMENT/PLAN 1. Hypertension superimposed on chronic renal disease stage III with evaluation in process 2. Rheumatoid arthritis in process of a steroid wean followed closely by her carton forming machine adjuster 3. Diabetes mellitus type 2 currently clinically stable with periodic evaluations in process 4. Mixed hyperlipidemia at baseline 5. Obesity-progressive 6. 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 She does recall when she increase the diltiazem to higher dosages she had hallucinations and did not feel well and is not interested in trialing this option. Diana did have marked increased renal insufficiency with an GUILLERMO-inhibitor space scheduler is somewhat hesitant to trial an ARB. Will recheck her basic metabolic profile since she has discontinued the GUILLERMO-inhibitor to be sure it does return to her former stable baseline. She had been followed for many years by her internal medicine provider and has never had stabilized blood pressure. As she is 77 she has obviously tolerated it fairly well. Will arrange for additional evaluation with Cardiology for opinions in regards to her treatment protocol as she is a vibrant 77-year-old female. Risks and benefitsof medications discussed. All questions answered. Signs and symptoms to lead to emergent evaluation are reviewed. See the medication reconciliation and preventive services. She will consider her options. LANCE GRAPHIC DESIGNER documented in this encounter Plan of Treatment Scheduled Referrals Name Type Priority Associated Diagnoses Order S chedule Cardiovascular Disease Outpatient Routine Hypertension And E xpected: - General cardiology Referral Chronic Kidney 05/23 consult (clinic) Disease Stage 3 (Approxi mate), (HCC) Expires: 05/23/2021 documented as of this encounter Procedures Procedure Name Priority Date/Time Associated Diagnosis Comme nts BASIC METABOLIC Routine 05/23/2018 10:45 Hypertension And Resu lts for this PANEL, S/P AM FREELANCE GRAPHIC DESIGNER Chronic Kidney procedure are in Disease Stage 3 (HCC) the results Diabetes Mellitus section. Type 2 (HCC) Hyperlipidemia M ixed Obesity Body Mass Index 30-39.9 Adult documented in this encounter Results (ABNORMAL) BMP (Basic Metabolic Panel) (05/23/2018 10:45 AM FREELANCE GRAPHIC DESIGNER) Analysis Performed At Patho logist Time Signature Potassium, S 4.1 3.6 - 5.2 05/23/2018 [facility] mmol/L 1:57 PM [facility] Sodium, S 140 135 - 145 05/23/2018 [facility] mmol/L 1:57 PM FREELANCE GRAPHIC DESIGNER [facility] Chloride, S 101 98 - 107 05/23/2018 [facility] mmol/L 1:57 PM [facility] Bicarbonate, S 28 22 - 29 05/23/2018 [facility] mmol/L 1:[address] [facility] Anion Gap 11 7 - 15 05/23/2018 [facility] 1:[address] [facility] BUN (Blood Urea 20 6 - 21 05/23/2018 [facility] Nitrogen), S mg/dL 1:[address] [facility] Creatinine 1.18 (H) 0.59 - 05/23/2018 [facility] 1.04 mg/dL 1:[address] [facility] eGFR-Non 44 (L) >=60 05/23/2018 [facility] Black/ mL/min/BSA 1:57 PM [facility] Comment: ----ADDITIONAL INFORMATION---- Estimated GFR calculated using the 2009 CKD_EPI creatinine equation. eGFR-Black/ 51 (L) >=60 mL/min/BSA 05/23/2018 1:57 [facility] [place] PM [facility] Comment: ----ADDITIONAL INFORMATION---- Estimated GFR calculated using the 2009 CKD_EPI creatinine equation. Calcium, Total, S 9.2 8.8 - 10.2 mg/dL 05/23/2018 1 :57 PM [facility] Glucose, S 120 70 - 140 mg/dL 05/23/2018 1:57 PM [facility] Specimen Anatomical Collection Method Collection Time Receive d Time (Source) Location / / Volume Laterality Blood (Blood, 05/23/2018 10:45 05/23/2018 1:04 Venous) AM FREELANCE GRAPHIC DESIGNER PM FREELANCE GRAPHIC DESIGNER Kathy Gibson M.D. LAB BLOOD ADD-ON Performing Organization Address City/State/ZIP Code Phon e Number [facility] [address] [place] [address] LAB documented in this encounter Visit Diagnoses Diagnosis Hypertension And Chronic Kidney Disease Stage 3 (HCC) - Primary Arthritis Rheumatoid (HCC) Diabetes Mellitus Type 2 (HCC) Hyperlipidemia Mixed Obesity Body Mass Index 30-39.9 Adult Senior Care Anticoagulant Treatment [Z79.0 1] Thrombosis Deep Vein Personal History documented in this encounter Care Teams Dope Edger Relationship Specialty Start Date End Date Kathy Gibson M.D. PCP - General Family Medicine 12/15/17 02/24/19 documented as of this encounter
--- OUTSIDE RECORDS SUMMARY | 2022-02-28 01:39 | XMS_ITS | Encounter Summary ---
:1940 Author Organization [facility] Address [address] [place] [address] Care Team Providers Name Role Phone Kathy Gibson M.D. Primary Care Provider Encounter Details Date Type Department Care Team Description 06/08/2018 Anticoagulation Visit Department of Yonas Gibson Deep Vein Acute Lower Leg Left (HCC); Anticoagulation in Kathy Shea, Care Home Anticoagulant Treatment; Bruce Mansfield M.D. Monitoring For Therapeutic Drug Therapy [address] [facility] [place] [address] [facility] [phone] [place] [address] Social History Tobacco Use Types Packs/Day Years Used Date Smoking Tobacco: Never Smokeless Tobacco: Never Alcohol Use Standard Drinks/Week Comments No 0 (1 standard drink = 0.6 oz pure alcoho l) Sex Assigned at Date Recorded Female 09/25/2017 1:20 PM CDT documented as of this encounter Progress Notes Mónica Knox, R.N. - 06/08/2018 10:00 AM CDT Warfarin Maintenance Nursing Protocol Goal Range 2.0-3.0 (version approved 11/25/16) Visit Type: Patient presents for Dzvd-ik-Djvh visit in Anticoagulation Service. Primary reason for visit: Routine f/u OR f/u per previous visit recommendations Information provided by: patient Inclusion Criteria: All inclusion criteria met. Proceeded to exclusion criteria. Exclusion Criteria: No exclusion criteria, proceeded to screening criteria. Screening Criteria: -Current INR value has changed by = or > 1 since last INR check: Dose change was made within last7 days. Protocol does not apply. Provider input required. Additional info: INR decrease of 2.1 over 3 days due to dose change. Denies any bleeding at this time. Previous INR was supratherapeutic. 4.1 Today???s INR is Therapeutic. 2.0 Dosing and follow up recommendation: INR 2.0-3.0 MMador-RPh consulted. Dose ordered: Decrease 10% from weekly dose of 45mg.. Next INR: 10 days per PharmD/Rph consulted Warfarin 40mg/week. 7.5mg x 2 days and 5mg x 5 days/week. Pt on LMWH: No Patient Visit summary provided to: Patient provided with handout of warfarin dosing and next INR appointment. patient repeats back dosing instructions and has no further questions at this time. Patient is agreeable to the plan of care . documented in this encounter Plan of Treatment Not on filedocumented as of this encounter Procedures Procedure Name Priority Date/Time Associated Diagnosis Comme nts INR, POCT, B Routine 06/08/2018 9:42 AM Results f or this CDT procedure are i n the results section . documented in this encounter Results INR, POCT (06/08/2018 9:42 AM CDT) P athologist Signature INR, POCT, B 2.0 06/08/2018 [facility] 9:42 AM CDT [facility] Comment: ----ADDITIONAL INFORMATION---- Standard intensity warfarin therapeutic range: 2.0 to 3.0 ?? High intensity warfarin therapeutic rang e: 2.5 to 3.5 Specimen Anatomical Collection Method Collection Time Receive d Time (Source) Location / / Volume Laterality 06/08/2018 9:42 AM 9 9:44 CDT AM CDT Generic [facility] LAB POCT ORDERABLES - DEVICE Performing Organization Address City/State/ZIP Code Phon e Number [facility] [address] [place] [address] LAB documented in this encounter Visit Diagnoses Diagnosis Thrombosis Deep Vein Acute Lower Leg Lef t (HCC) Laundrette Owner (Current) Anticoagulant Treatm ent Monitoring For Therapeutic Drug Therapy documented in this encounter Care Teams Server Service Assistant Relationship Specialty Start Date End Date Kathy Gibson M.D. PCP - General Family Medicine 12/15/17 02/24/19 documented as of this encounter
--- OUTSIDE RECORDS SUMMARY | 2022-02-28 01:39 | XMS_ITS | Encounter Summary ---
:1940 Author Organization [facility] Address [address] [place] [address] Care Team Providers Name Role Phone Kathy Gibson M.D. Primary Care Provider Reason for Visit Reason Onset Date Comments Anticoagulation 06/19/2018 duration of anticoag therapy Encounter Details Date Type Department Care Team Description 06/19/2018 Clinical Department of Joana Knox Communication Anticoagulation in Mónica Lozano (duratio n of anticoag [place], [place] R.N. therapy) [address] [facility] [address] [place], [place] [phone] [address] Social History Tobacco Use Types Packs/Day Years Used Date Smoking Tobacco: Never Smokeless Tobacco: Never Alcohol Use Standard Drinks/Week Comments No 0 (1 standard drink = 0.6 oz pure alcoho l) Sex Assigned at Date Recorded Female 09/25/2017 1:20 PM CDT documented as of this encounter Miscellaneous Notes Telephone Encounter - Kathy Gibson M.D. - 07/04/2018 7:05 AM CDT Thank you for your care. Telephone Encounter - Mónica Knox, R.N. - 07/03/2018 2:[address] Gibson, I see in your 06/29/18 pt visit note anticoagulation was discontinued. I will resolve the anticoag episode and complete warfarin in med record if you agree. Thank you. Telephone Encounter - Emma Crocker - 06/21/2018 9:55 AM CDT Patient is scheduled for 06/[address] at [address] Gibson Telephone Encounter - Mónica Knox R.N. - 06/21/2018 8:06 AM CDT Please call pt and schedule appt with Dr Ray for reassessment of Left Lower Leg DVT status. You may tell the pt this in addition to- this is to determine the duration of time anticoagulation therapy(warfarin) is needed. Between now and first week of June if poss. Thank you Telephone Encounter - Kathy Gibson M.D. - 06/20/2018 7:07 AM CDT Yes, follow-up would be advised. Telephone Encounter - Mónica Knox R.N. - 06/19/2018 3:[address] Gibson Indication for anticoagulation - DVT LLE Range 2.0-3.0 Duration - Per your 03/29/18 Office Visit with pt - Anticipate treatment with warfarin for 3-6 months. Will reassess the DVT status in about 3 months to determine whether not a 6 month treatment coursewould be appropriate. Pt will be at 3 months anticoagulation 03/30/18. Would you like to see her for assessment of dvt, anticoag treatment, duration? Thank you. documented in this encounter Plan of Treatment Not on filedocumented as of this encounter Visit Diagnoses Diagnosis Marketing Co Op (Current) Anticoagulant Treatm ent Monitoring For Therapeutic Drug Therapy Thrombosis Deep Vein Acute Lower Leg Lef t (HCC) documented in this encounter Care Teams Business Ethics Professor Relationship Specialty Start Date End Date Kathy Gibson M.D. PCP - General Family Medicine 12/15/17 02/24/19 documented as of this encounter
--- OUTSIDE RECORDS SUMMARY | 2022-02-28 01:39 | XMS_ITS | Encounter Summary ---
:1940 Author Organization [facility] Address [address] [place] [address] Care Team Providers Name Role Phone Kathy Gibson M.D. Primary Care Provider Encounter Details Date Type Department Care Team Description 06/18/2018 Anticoagulation Visit Department of Yonas Gibson Deep Vein Acute Lower Leg Left (HCC); Anticoagulation in Kathy Shea, [place] Anticoagulant Treatment; Bruce Mansfield M.D. Monitoring For Therapeutic Drug Therapy [address] 200 [facility] [address] [facility] [phone] [place] [address] Social History Tobacco Use Types Packs/Day Years Used Date Smoking Tobacco: Never Smokeless Tobacco: Never Alcohol Use Standard Drinks/Week Comments No 0 (1 standard drink = 0.6 oz pure alcoho l) Sex Assigned at Date Recorded Female 09/25/2017 1:20 PM CDT documented as of this encounter Progress Notes Mónica Knox, R.N. - 06/18/2018 1:30 PM CDT Warfarin Maintenance Nursing Protocol Goal Range 2.0-3.0 (version approved 11/25/16) Visit Type: Patient presents for Vfiz-oc-Scrt visit in Anticoagulation Service. Primary reason for visit: Routine f/u OR f/u per previous visit recommendations Information provided by: patient Inclusion Criteria: All inclusion criteria met. Proceeded to exclusion criteria. Exclusion Criteria: No exclusion criteria, proceeded to screening criteria. Screening Criteria: All screening criteria negative. Proceeded to maintenance warfarin dosing and follow-up Additional info: None Previous INR was therapeutic.2.0 Today???s INR is Therapeutic. 2.6 Dosing and follow up recommendation: INR 2.0-3.0 No change in weekly dose. Next INR: Twice amount oftime since last INR (max 4-6 weeks): 21 days warfarin 7.5mg mon,Fri and 5mg all the other days of week. Recheck 3 week Pt on LMWH: No Patient Visit summary [...] Diagnosis Comme nts INR, POCT, B Routine 06/18/2018 1:51 PM Results f or this CDT procedure are i n the results section . documented in this encounter Results INR, POCT (06/18/2018 1:51 PM CDT) P athologist Signature INR, POCT, B 2.6 06/18/2018 [facility] 1:[address] [facility] Comment: ----ADDITIONAL INFORMATION---- Standard intensity warfarin therapeutic range: 2.0 to 3.0 ?? High intensity warfarin therapeutic rang e: 2.5 to 3.5 Specimen Anatomical Collection Method Collection Time Receive d Time (Source) Location / / Volume Laterality 06/18/2018 1:51 PM 9 1:54 CDT PM CDT Generic [facility] LAB POCT ORDERABLES - DEVICE Performing Organization Address City/State/ZIP Code Phon e Number [facility] [address] [place] [address] LAB documented in this encounter Visit Diagnoses Diagnosis Thrombosis Deep Vein Acute Lower Leg Lef t (HCC) Horticultural Therapist (Current) Anticoagulant Treatm ent Monitoring For Therapeutic Drug Therapy documented in this encounter Care Teams Seed Core Operator Relationship Specialty Start Date End Date Kathy Gibson M.D. PCP - General Family Medicine 12/15/17 02/24/19 documented as of this encounter
--- OUTSIDE RECORDS SUMMARY | 2022-02-28 01:39 | XMS_ITS | Encounter Summary ---
:1939 Author Organization [facility] Address [address] [place] [address] Care Team Providers Name Role Phone Kathy Gibson M.D. Primary Care Provider Encounter Details Date Type Department Care Team Description 08/29/2018 Hospital Encounter Department of Riki Butler And Laboratory Medicine Demetrius Márquez Chronic Kidney in [address] Disease Stage 3 (HCC) [place], [place] [address] [facility] [address] [place], [place] [phone] [address] (Work) [phone] Social History Tobacco Use Types Packs/Day Years [...] Date/Time Associated Diagnosis Comme nts ECG Routine 08/29/2018 1:13 PM Hypertension And Resul ts for this CDT Chronic Kidney Disease proce dure are in Stage 3 (HCC) the results section. documented in this encounter Results ECG 12 Lead (08/29/2018 1:13 PM CDT) P athologist Signature Ventricular Rate 71 BPM MUSE ECG/Min MT Interval 212 ms MUSE QRSD Interval 100 ms MUSE QT Interval 448 ms MUSE QTC Interval 486 ms MUSE P [place] 66 degrees MUSE R [place] 49 degrees MUSE T Wave [place] 43 degrees MUSE Specimen Anatomical Collection Method Collection Time Receive d Time (Source) Location / / Volume Laterality 08/29/2018 1:13 PM 9 1:26 CDT PM CDT Impressions MUSE - 08/29/2018 1:26 PM CDT Sinus rhythm with 1st degree A-V block Prolonged QT When compared with ECG of 04-JUL-2017 15 :29, Significant changes have occurred Narrative This result has an attachment that is no t available. Procedure Note Dean Ross M.D., Ph.D. - 9 IMPRESSION: Sinus rhythm with 1st degree A-V block Prolonged QT When compared with ECG of 04-JUL-2017 15 :29, Significant changes have occurred Brando Butler M.D. ECG ORDERABLES Performing Organization Address City/State/ZIP Code Phon e Number MUSE MUSE NA documented in this encounter Visit Diagnoses Diagnosis Hypertension And Chronic Kidney Disease Stage 3 (HCC) documented in this encounter Care Teams Carpenter Assistant Relationship Specialty Start Date End Date Kathy Gibson M.D. PCP - General Family Medicine 12/15/17 02/24/19 documented as of this encounter
--- OUTSIDE RECORDS SUMMARY | 2022-02-28 01:39 | XMS_ITS | Encounter Summary ---
:1939 Author Organization [facility] Address [address] [place] [address] Care Team Providers Name Role Phone Kathy Gibson M.D. Primary Care Provider Reason for Visit Reason Comments Post-op 1 YR postop right TKA done o n 07/12/17 Follow-up Post-op Arthroplasty Outpatient (Routine) - Closed Specialty Diagnoses / Procedures Referred By Contact Refer red To Contact Orthopedic Surgery Ignacio Mead M.D. [facility] Region [address], [address] [place] [address] Referral ID Status Reason Start Date Expiration Date Visits Requ ested Visits Authorized [id number] Closed 08/22/2017 08/22/2018 1 1 Encounter Details Date Type Department Care Team Description 08/07/2018 Office Visit Department of Ignacio Mead, Primary Oste oarthritis Orthopedic Surgery in M.DRegina Knee Right (Primary Dx) [place], [place] [address], [address] [place] [address] 1 [place] [id number] [phone] Social History Tobacco Use Types Packs/Day Years Used Date Smoking Tobacco: Never Smokeless Tobacco: Never Alcohol Use Standard Drinks/Week Comments No 0 (1 standard drink = 0.6 oz pure alcoho l) Sex Assigned at Date Recorded Female 09/25/2017 1:20 PM CDT documented as of this encounter Last Filed Vital Signs Vital Sign Reading Time Taken Comments Blood Pressure 130/60 08/07/2018 10:35 AM CDT Pulse 60 08/07/2018 10:35 AM CDT Temperature - - Respiratory Rate 20 08/07/2018 10:35 AM CDT Oxygen Saturation - - Inhaled Oxygen Concentration - - Weight - - Height - - Body Mass Index - - documented in this encounter Progress Notes Ignacio Mead M.D. 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 She has no complaints. Objective: Her knee has full extension with good stability. Flexion well past 110?? also with good stability. X-rays show her implants to be in good position well aligned and well fixed. No areas of lucency or lysis. Patellofemoral joint is well centered. Assessment: Doing very well. Plan: Continue activity as tolerated. Follow-up about every 2 years for x-rays. documented in this encounter Plan of Treatment Not on filedocumented as of this encounter Visit Diagnoses Diagnosis Primary Osteoarthritis Knee Right - Prim gutierrez documented in this encounter Care Teams Silver Buffer Relationship Specialty Start Date End Date Kathy Gibson M.D. PCP - General Family Medicine 12/15/17 02/24/19 documented as of this encounter
--- OUTSIDE RECORDS SUMMARY | 2022-02-28 01:39 | XMS_ITS | Encounter Summary ---
:1939 Author Organization [facility] Address [address] [place] [address] Care Team Providers Name Role Phone Kathy Gibson M.D. Primary Care Provider Reason for Visit Reason Onset Date Comments Medication Question 07/18/2018 Encounter Details Date Type Department Care Team Description 07/18/2018 Clinical Communication Department of Kathy Gibson ication Question Family MedicineMonse M.D. [facility], [address] [place] [address] in [facility] [id number] [place] [address] [place], [place] (Work) [phone] Social History Tobacco Use Types Packs/Day Years Used Date Smoking Tobacco: Never Smokeless Tobacco: Never Alcohol Use Standard Drinks/Week Comments No 0 (1 standard drink = 0.6 oz pure alcoho l) Sex Assigned at Date Recorded Female 09/25/2017 1:20 PM CDT documented as of this encounter Miscellaneous Notes Telephone Encounter - [place] Person LReginaPReginaNRegina - 07/18/2018 10:13 AM CDT SUBJECTIVE CHIEF COMPLAINT / REASON FOR CALL Medication Question Patient is requesting the following information: Asprin PLAN The following information was provided : Per Dr. Gibson okay to resume Aspirin. Information: patient/caller able to repeat back in their own words The following references were used: provider Kathy Gibson MD Telephone Encounter - Kathy Gibson M.D. - 07/18/2018 9:58 AM CDT Yes, she should resume The aspirin. Telephone Encounter - Eun Simon - 07/18/2018 9:13 AM CDT Patient is wondering if she should go back to taking baby aspirin?She is seeing Dr. Butler 07/25/18,patient stated she called last week and hasn't heard back, please call her. documented in this encounter Plan of Treatment Not on filedocumented as of this encounter Visit Diagnoses Not on filedocumented in this encounter Care Teams Professor Of Biology Relationship Specialty Start Date End Date Kathy Gibson M.D. PCP - General Family Medicine 12/15/17 02/24/19 documented as of this encounter
--- OUTSIDE RECORDS SUMMARY | 2022-02-28 01:39 | XMS_ITS | Encounter Summary ---
:1939 Author Organization [facility] Address [address] [place] [address] Care Team Providers Name Role Phone Kathy Gibson M.D. Primary Care Provider Encounter Details Date Type Department Care Team Description 08/29/2018 Clinical Communication Department of Brando Butler Cardiovascular Diseases Estella Joseph in [address], [place] [address] [facility] [phone] Social History Tobacco Use Types Packs/Day Years Used Date Smoking Tobacco: Never Smokeless Tobacco: Never Alcohol Use Standard Drinks/Week Comments No 0 (1 standard drink = 0.6 oz pure alcoho l) Sex Assigned at Date Recorded Female 09/25/2017 1:20 PM CDT documented as of this encounter Miscellaneous Notes Telephone Encounter - Ericka Yao, C.M.A. - 08/29/2018 4:37 PM CDT See echo result note Telephone Encounter - Na Ross - 08/29/2018 4:13 PM CDT Patient returning call, documented in this encounter Plan of Treatment Not on filedocumented as of this encounter Visit Diagnoses Not on filedocumented in this encounter Care Teams Mailroom Personnel Relationship Specialty Start Date End Date Kathy Gibson M.D. PCP - General Family Medicine 12/15/17 02/24/19 documented as of this encounter
--- OUTSIDE RECORDS SUMMARY | 2022-02-28 01:39 | XMS_ITS | Encounter Summary ---
:1939 Author Organization [facility] Address [address] [place] [address] Care Team Providers Name Role Phone Kathy Gibson M.D. Primary Care Provider Encounter Details Date Type Department Care Team Description 08/09/2018 Clinical Communication Department of Brando Butler Cardiovascular Diseases Estella Joseph in [address], [place] [address] [facility] [phone] Social History Tobacco Use Types Packs/Day Years Used Date Smoking Tobacco: Never Smokeless Tobacco: Never Alcohol Use Standard Drinks/Week Comments No 0 (1 standard drink = 0.6 oz pure alcoho l) Sex Assigned at Date Recorded Female 09/25/2017 1:20 PM CDT documented as of this encounter Miscellaneous Notes Telephone Encounter - Brando Butler M.D. - 08/10/2018 8:54 AM CDT Refilled. Telephone Encounter - Yasmin Mansfield R.N. - 08/10/2018 8:28 AM CDT Spoke to patient via telephone call. Reviewed Dr. Butler's notes/recommendations with patient. Sheis in agreement to increase her dose of Carvedilol to 12.5 mg, 2 times daily with meals. She stated her edema is good. She is just worried about getting her blood pressures down. She will turn in another blood pressure log after 2 weeks. She will contact Cardiology if her edema increases or worsens. Telephone Encounter - Brando Butler M.D. - 08/09/2018 4:33 PM CDT Blood pressure log reviewed. Her blood pressure could be further optimized. Please propose up titration of carvedilol to 12.5 mg twice a day (make sure she is currently taking 6.25 mg twice a day). Repeat blood pressure log 2 weeks after the medication is changed. Please ask her to let us know how hislower extremity edema is doing as well as I could potentially increase his furosemide dosage further. Thank you, Brando Butler documented in this encounter Plan of Treatment Not on filedocumented as of this encounter Visit Diagnoses Not on filedocumented in this encounter Care Teams Clinical Coordinator Relationship Specialty Start Date End Date Kathy Gibson M.D. PCP - General Family Medicine 12/15/17 02/24/19 documented as of this encounter
--- OUTSIDE RECORDS SUMMARY | 2022-02-28 01:39 | XMS_ITS | Encounter Summary ---
:1939 Author Organization [facility] Address [address] [place] [address] Care Team Providers Name Role Phone Kathy Gibson M.D. Primary Care Provider Reason for Visit Reason Comments Med Refill Encounter Details Date Type Department Care Team Description 07/05/2018 Refill Department of Anticoagulation in Jam[place]ónica rankin, RReginaNRegina Med Refill [place], [place] [address] [address] [place] [address] [phone] Social History Tobacco Use Types Packs/Day Years [...] on filedocumented in this encounter Care Teams Automatic Profile Sander Operator Relationship Specialty Start Date End Date Kathy Gibson M.D. PCP - General Family Medicine 12/15/17 02/24/19 documented as of this encounter
--- OUTSIDE RECORDS SUMMARY | 2022-02-28 01:39 | XMS_ITS | Encounter Summary ---
:1939 Author Organization [facility] Address [address] [place] [address] Care Team Providers Name Role Phone Kathy Gibson M.D. Primary Care Provider Encounter Details Date Type Department Care Team Description 05/14/2018 Anticoagulation Visit Department of Yonas Gibson Deep Vein Acute Lower Leg Left (HCC); Anticoagulation in Kathy Shea, Health Workers Anticoagulant Treatment; Bruce Mansfield M.D. Monitoring For Therapeutic Drug Therapy [address] [facility] [place] [address] [place], [place] [address] Social History Tobacco Use Types Packs/Day Years Used Date Smoking Tobacco: Never Smokeless Tobacco: Never Alcohol Use Standard Drinks/Week Comments No 0 (1 standard drink = 0.6 oz pure alcoho l) Sex Assigned at Date Recorded Female 09/25/2017 1:20 PM CDT documented as of this encounter Progress Notes Paulette Chaudhary - 05/14/2018 11:15 AM CST Warfarin Maintenance Nursing Protocol Goal Range 2.0-3.0 (version approved 11/25/16) Visit Type: Patient presents for Qdrt-io-Acgq visit in Anticoagulation Service. Primary reason for visit: Routine f/u OR f/u per previous visit recommendations Information provided by: patient and spouse Inclusion Criteria: All inclusion criteria met. Proceeded to exclusion criteria. Exclusion Criteria: No exclusion criteria, proceeded to screening criteria. Screening Criteria: -Patient within first 12 weeks of warfarin therapy: INR in range, check weekly for 2 checks Additional info: Coordinated her appointment with others. Previous INR was subtherapeutic. Today???s INR is Therapeutic. Dosing and follow up recommendation: INR 2.0-3.0 No change in weekly dose. Next INR: 7 days per Screening Criteria because prompts INR recheck sooner than indicated by maintenance warfarin dosing and follow-up table. Pt on LMWH: No Patient Visit summary provided to: Patient provided with handout of warfarin dosing and next INR appointment. patient and spouse repeats back dosing instructions and has no further questions at this time. Patient is agreeable to the plan of care Yes. INSTALLER documented in this encounter Plan of Treatment Not on filedocumented as of this encounter Procedures Procedure Name Priority Date/Time Associated Diagnosis Comme nts INR, POCT, B Routine 05/14/2018 11:11 AM Results for this TIRE INSTALLER procedure are i n the results section . documented in this encounter Results INR, POCT (05/14/2018 11:11 AM TIRE INSTALLER) P athologist Signature INR, POCT, B 2.5 05/14/2018 [facility] 11:11 AM TIRE INSTALLER [facility] Comment: ----ADDITIONAL INFORMATION---- Standard intensity warfarin therapeutic range: 2.0 to 3.0 ?? High intensity warfarin therapeutic rang e: 2.5 to 3.5 Specimen Anatomical Collection Method Collection Time Receive d Time (Source) Location / / Volume Laterality 05/14/2018 11:11 05/14/2018 AM TIRE INSTALLER 11:12 AM TIRE INSTALLER [facility] POCT ORDERABLES - DEVICE Performing Organization Address City/State/ZIP Code Phon e Number [facility] [address] [place] [address] LAB documented in this encounter Visit Diagnoses Diagnosis Thrombosis Deep Vein Acute Lower Leg Lef t (HCC) Health Workers (Current) Anticoagulant Treatm ent Monitoring For Therapeutic Drug Therapy documented in this encounter Care Teams Ledger Poster Relationship Specialty Start Date End Date Kathy Gibson M.D. PCP - General Family Medicine 12/15/17 02/24/19 documented as of this encounter
--- OUTSIDE RECORDS SUMMARY | 2022-02-28 01:39 | XMS_ITS | Encounter Summary ---
:1939 Author Organization [facility] Address [address] [place] [address] Care Team Providers Name Role Phone Kathy Gibson M.D. Primary Care Provider Reason for Visit Reason Comments Follow-up Appointment Request (Routine) - Closed Specialty Diagnoses / Procedures Referred By Contact Refer red To Contact Family Medicine Referral ID Status Reason Start Date Expiration Date Visits Requ ested Visits Authorized [id number] Closed 06/21/2018 06/21/2019 1 Encounter Details Date Type Department Care Team Description 06/29/2018 Office Visit Department of Family Kathy Gibson, Shanda savage Impacted Left (Primary Dx); MedicineShyla M.D. Thrombosis Deep Vein Personal History; Clinic, in [address] Arthritis Rheumatoid (HCC); [place], [place] Diabetes Mellitus Type 2 (HC C); [address] [facility] [address] Hypertension And Chronic Kidney Disease Stage 3 (HCC); [place], [place] [phone] Obesity Body M ass Index 30-39.9 Adult; [address] (Work) Presence Of Right Artificial Knee Joint; [phone] Loss Hearing Se nsorineural Bilateral (Fax) Social History Tobacco Use Types Packs/Day Years Used Date Smoking Tobacco: Never Smokeless Tobacco: Never Alcohol Use Standard Drinks/Week Comments No 0 (1 standard drink = 0.6 oz pure alcoho l) Sex Assigned at Date Recorded Female 09/25/2017 1:20 PM CDT documented as of this encounter Last Filed Vital Signs Vital Sign Reading Time Taken Comments Blood Pressure 160/76 06/29/2018 10:58 AM CDT Pulse 84 06/29/2018 10:55 AM CDT Temperature 36.4 ??C (97.5 ??F) 06/29/2018 10:55 AM CDT Respiratory Rate 16 06/29/2018 10:55 AM CDT Oxygen Saturation - - Inhaled Oxygen Concentration - - Weight 76.1 kg (167 lb 10.6 oz) 06/29/2018 10:55 AM CDT Height - - Body Mass Index 31.65 04/05/2018 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 - 06/29/2018 11:15 AM CDT CHIEF COMPLAINT/REASON FOR VISIT Multiple issues HISTORY OF PRESENT ILLNESS This 77-year old female presents to clinic secondary to multiple issues. She would like to discontinue anticoagulation with warfarin as it has been over 3 months since she had her DVT associated with cellulitis in her left lower extremity in February of 2018. She is doing all of her activities of daily living. She is wearing her support stockings. She has had no recurrence. Her blood pressures been elevated but her e commerce merchandising coordinator has made no changes in her medication regimen as she is currently being weaned from prednisone. She has no shortness of breath, palpitations or chest pain. She has follow-upplanned for September 2018 with Cardiology. She will be seeing her flue gas analyst in a couple of weeks. She has decreased hearing and is trying to have her hearing aid refitted but she had so much wax this was not possible. She has been working on an outpatient basis to eliminate the wax and was advised byher hearing aid provider to have this rechecked when she came in the clinic today. She is accompanied by her significant other. EMR reviewed. CURRENT MEDICATIONS Current Outpatient Prescriptions on File Prior to Visit Medication Sig Dispense Refill ??? CALCIUM CARB/VIT D3/MINERALS (CALCIUM-VITAMIN D ORAL) Take 1 tablet by mouth daily. ??? dilTIAZem CD (CARDIZEM CD/CARTIA XT) 300 mg 24 hr capsule Take 1 capsule (300 mg total) by mouthdaily. 90 capsule 3 ??? furosemide (LASIX) 40 mg tablet Take 1 tablet (40 mg total) by mouth daily. 90 tablet 3 ??? hydroxychloroquine (PLAQUENIL) 200 mg tablet 0 ??? MULTIVITAMIN ORAL Take 1 tablet by mouth daily. ??? predniSONE (DELTASONE) 5 mg tablet Start 17.5 mg( 3.5 tablets) on September 24, 2017 then 15 mg(3 tablets daily) daily for Oct 2017 then 12.5 mg(2.5 tablets) daily in November . (Patient taking differently: Take 6 mg by mouth daily. Start 17.5 mg( 3.5 tablets) on September 24, 2017 then 15 mg(3 tablets daily) daily for Oct 2017 then 12.5 mg(2.5 tablets) daily in November . ) 109 tablet 3 ??? warfarin (COUMADIN) 2.5 mg tablet 7.5mg PO Monday/Monday; 5mg PO all other days of the week. 192tablet 0 ??? predniSONE (DELTASONE) 1 mg tablet 0 No current facility-administered medications on file prior to visit. Allergies Allergen Reactions ??? Clonidine Hallucinations [...] NERVE STIMULATOR PLACEMENT 05/04/2016 Advanced trial of [facility] PREVENTIVE SERVICES Tobacco none Mammogram 01/11/2018 Pap smear nonapplicable secondary to stated age Colon screen 11/19/[address] Dominguez low risk,??currently declining additional [...] clot. ??? No Known Problems Son Vitals: 06/29/18 1055 06/29/18 1058 BP: 160/80 160/76 Patient Position: Sitting Sitting Pulse: 84 Temp: 36.4 ??C Resp: 16 Weight: 76.1 kg TempSrc: Temporal PHYSICAL EXAM General: Neatly dressed well groomed. HEENT: PERRL. EOMs are full. Ears: TMs are jacobsen, good visualization of landmarks after a moderate amount of cerumen is irrigated from the left ear by nursing staff. Subjectively decreased hearing despite her hearing aid on the right. Nose: Mucosal membranes pink and moist. Oral: No exudates. Teeth in fair condition. No pharyngeal erythema. Neck: Range of motion consistent with patient's stated age body habitus. Trachea midline. Lymph nodes: No cervical adenopathy. Thyroid: No thyroid masses, tenderness or enlargement. Heart: Regular rate and rhythm. No clicks, rubs or murmurs. Lungs: Clear to auscultation. No palpable chest wall masses. Musculoskeletal: Marked degenerative changes of major and minor joints. Support stockings are in place.. Neuro: Slow steady gait. Peripheral pulses: Positive femoral, dorsal pedal, and posterior tibial pulses. ASSESSMENT/PLAN 1. Personal history of provoked DVT with 4 months of anticoagulation with plans for discontinuation of this treatment in the near future 2. Rheumatoid arthritis with plans for wean off the prednisone in process 3. Hypertension superimposed on chronic renal disease stage III-elevated with multifactorial etiology with no change in medications advised by Cardiology at this time 4. Diabetes mellitus type 2 at clinical baseline 5. Obesity-progressive 6. 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 Cerumen impaction on the left with sensorineural bilateral hearing loss-with treatment in process Supportive measures discussed in detail. Follow up with all of her specialty care providers as planned. Will discontinue the anticoagulation as her DVT was provoked and she has had nearly 4 months of treatment. Did discuss possibility she could have recurrence and this may need to be reconsidered in the future. Risks and benefits of medications discussed. All questions answered. Signs and symptoms tolead to emergent evaluation are reviewed. See the medication reconciliation and preventive services.She and her significant other comfortable with plan. Spent 15 of the 25 minute visit in discussion. documented in this encounter Procedure Notes Yoana Rossi L.P.N. - 06/29/2018 11:15 AM CDTAssociated Order(s): EAR CERUMEN REMOVAL Post-Procedure Diagnose(s): Cerumen Impacted Left Ear cerumen removal Date/Time: 06/29/2018 11:43 AM Performed by: YOANA ROSSI Authorized by: KATHY GIBSON Pre-procedural details: Indication: cerumen impaction Procedure details: Location: Left ear Procedure type: irrigation Microscope used: no Post-procedure details: Inspection: Complete impaction removal Hearing quality: Normal Procedure completed successfully: yes Complications: no immediate complications documented in this encounter Plan of Treatment Not on filedocumented as of this encounter Procedures Procedure Name Priority Date/Time Associated Diagnosis Comme nts MO RMVL IMPACT Routine 06/29/2018 11:15 AM Cerumen Impacted Re sults for this CERUMEN IRRIG CDT Left procedure are in UNILAT the results section. documented in this encounter Results MO RMVL IMPACT CERUMEN IRRIG UNILAT (06/29/2018 11:15 AM CDT) Narrative [facility]AL - 06/29/2018 11:15 AM CDT Yoana Rossi L.P.N. ? 06/29/2018 ??6:49 PM Ear cerumen removal Date/Time: 06/29/2018 11:43 AM Performed by: YOANA ROSSI Authorized by: KATHY GIBSON Pre-procedural details: ??Indication: cerumen impaction ?? Procedure details: ??Location: ??Left ear ??Procedure type: irrigation ?Microscope used: no ?? Post-procedure details: ??Inspection: ??Complete impaction dina franky ??Hearing quality: ??Normal ??Procedure completed successfully: yes ?Complications: no immediate complicat ions ?? Kathy Gibson M.D. PROCEDURE/MINOR SURGICAL ORD ERABLES Performing Organization Address City/State/ZIP Code Phon e Number [facility] NA documented in this encounter Visit Diagnoses Diagnosis Cerumen Impacted Left - Primary Thrombosis Deep Vein Personal History Arthritis Rheumatoid (HCC) Diabetes Mellitus Type 2 (HCC) Hypertension And Chronic Kidney Disease Stage 3 (HCC) Obesity Body Mass Index 30-39.9 Adult Presence Of Right Artificial Knee Joint Loss Hearing Sensorineural Bilateral documented in this encounter Care Teams Electrical Power Station Technician Relationship Specialty Start Date End Date Kathy Gibson M.D. PCP - General Family Medicine 12/15/17 02/24/19 documented as of this encounter
--- OUTSIDE RECORDS SUMMARY | 2022-02-28 01:39 | XMS_ITS | Encounter Summary ---
:1939 Author Organization [facility] Address [address] [place] [address] Care Team Providers Name Role Phone Kathy Gibson M.D. Primary Care Provider Reason for Visit Reason Comments Med Refill Encounter Details Date Type Department Care Team Description 10/01/2018 Refill Department of Family Medicine, Kathy joyner M.D. Med Refill [facility], in [address] [place] [address] [address] [place] [address] [place] [address] [phone] Social History Tobacco Use Types Packs/Day Years Used Date Smoking Tobacco: Never Smokeless Tobacco: Never Alcohol Use Standard Drinks/Week Comments No 0 (1 standard drink = 0.6 oz pure alcoho l) Sex Assigned at Date Recorded Female 09/25/2017 1:20 PM CDT documented as of this encounter Miscellaneous Notes Telephone Encounter - Brando Butler M.D. - 10/03/2018 8:01 AM CDT During my previous note I suggest patient to take furosemide 20 mg twice a day. This will help better control blood pressure levels. The prescription should be filled by her primary care provider who initially ordered the medication. Thank you, Brando Butler Telephone Encounter - Yasmin Mansfield R.N. - 10/02/2018 3:[address] Butler, Current med list states furosemide 40 mg tablets, take 0.5 tablet (20 mg) two times daily and the requested medication refill is for Furosemide 40 mg, take one tablet daily. Please clarify furosemide dose. Telephone Encounter - Jeri Morales - 10/02/2018 10:51 AM CDT Appears this medication may have been attempted to be refilled 07/25/18 but it was neither e-scribed or printed so it did not go to a pharmacy Nurse review: Unable to pend medication sent via [employer]; discrepancy in dose and frequency Provider: Gail Butler Name of medication: Furosemide Pharmacy: [facility] documented in this encounter Plan of Treatment Not on filedocumented as of this encounter Visit Diagnoses Diagnosis Hypertension And Chronic Kidney Disease Stage 3 (HCC) documented in this encounter Care Teams Line Assigner Relationship Specialty Start Date End Date Kathy Gibson M.D. PCP - General Family Medicine 12/15/17 02/24/19 documented as of this encounter
--- OUTSIDE RECORDS SUMMARY | 2022-02-28 01:39 | XMS_ITS | Encounter Summary ---
:1940 Author Organization [facility] Address [address] [place] [address] Care Team Providers Name Role Phone Kathy Gibson M.D. Primary Care Provider Encounter Details Date Type Department Care Team Description 07/27/2018 Clinical Communication Department of Bibi Murray, Medicine, Nicolasa Soria [facility], in [address] [facility] [address] [place], [place] [phone] (Work) [phone] Social History Tobacco Use Types Packs/Day Years Used Date Smoking Tobacco: Never Smokeless Tobacco: Never Alcohol Use Standard Drinks/Week Comments No 0 (1 standard drink = 0.6 oz pure alcoho l) Sex Assigned at Date Recorded Female 09/25/2017 1:20 PM CDT documented as of this encounter Miscellaneous Notes Telephone Encounter - Dawn Olivia L.P.N. - 07/30/2018 5:25 PM CDT SUBJECTIVE CHIEF COMPLAINT / REASON FOR CALL No chief complaint on file. Patient is requesting the following information: Referral request PLAN The following information was provided : Patient was notified that she would need to have an appointment with provider. Patient agreed to call back tomorrow morning to schedule the appointment. Information: patient/caller able to repeat back in their own words The following references were used: provider Kathy Gibson Telephone Encounter - Kathy Gibson M.D. - 07/30/2018 7:10 AM CDT She will need an appointment has a waiver needs to be completed for her insurance. Telephone Encounter - Dawn Olivia L.P.N. - 07/27/2018 4:52 PM CDT Patient is requesting a bone density test to be completed in [place]. Please advise Telephone Encounter - Dawn Olivia L.P.N. - 07/27/2018 4:29 PM CDT Attempted to return call to patient, phone is busy Telephone Encounter - Belen Waggoner - 07/27/2018 10:14 AM CDT Reason for Communication: Patient called, stated her industrial chemistry teacher, Dr. Nunez, was going to contact Dr. Gibson about getting a bone density order. Current Can Nursing/Provider leave a detailed message: Did the patient refuse triage through Nurse line? (for symptom based concerns): Action Needed: Please call patient back. Name of Medication (if relevant): documented in this encounter Plan of Treatment Not on filedocumented as of this encounter Visit Diagnoses Not on filedocumented in this encounter Care Teams Child Development Director Relationship Specialty Start Date End Date Kathy Gibson M.D. PCP - General Family Medicine 12/15/17 02/24/19 documented as of this encounter
--- OUTSIDE RECORDS SUMMARY | 2022-02-28 01:39 | XMS_ITS | Encounter Summary ---
:1940 Author Organization [facility] Address [address] [place] [address] Care Team Providers Name Role Phone Kathy Gibson M.D. Primary Care Provider Encounter Details Date Type Department Care Team Description 05/23/2018 Anticoagulation Visit Department of Yonas Gibson Deep Vein Acute Lower Leg Left (HCC); Anticoagulation in [facility], [facility] Anticoagulant Treatment; Bruce Mansfield M.D. Monitoring For Therapeutic Drug Therapy [address] [facility] [id number] [place], [place] [address] Social History Tobacco Use Types Packs/Day Years Used Date Smoking Tobacco: Never Smokeless Tobacco: Never Alcohol Use Standard Drinks/Week Comments No 0 (1 standard drink = 0.6 oz pure alcoho l) Sex Assigned at Date Recorded Female 09/25/2017 1:20 PM CDT documented as of this encounter Progress Notes Paulette Chaudhary - 05/23/2018 10:00 AM CST Warfarin Maintenance Nursing Protocol Goal Range 2.0-3.0 (version approved 11/25/16) Visit Type: Patient presents for [id number] visit in Anticoagulation Service. Primary reason for visit: Routine f/u OR f/u per previous visit recommendations Information provided by: patient and spouse Inclusion Criteria: All inclusion criteria met. Proceeded to exclusion criteria. Exclusion Criteria: No exclusion criteria, proceeded to screening criteria. Screening Criteria: -Patient within first 12 weeks of warfarin therapy: Weekly INRs remained in goal range, check every other week (biweekly) for 2 checks Additional info: Due to the 0.5 increase in value and being at the upper limit, I encouraged patientto have one serving of a high vitamin K product in the next day or two. She likes [employer]. Previous INR was therapeutic. Today???s INR is Therapeutic. Dosing and follow up recommendation: INR 2.0-3.0 No change in weekly dose. Next INR: 14 days per Screening Criteria because prompts INR recheck sooner than indicated by maintenance warfarin dosing and follow-up table. Pt on LMWH: No Patient Visit summary provided to: Patient provided with handout of warfarin dosing and next INR appointment. patient and spouse repeats back dosing instructions and has no further questions at this time. Patient is agreeable to the plan of care Yes. IFIED MEDICAL ASSISTANT documented in this encounter Plan of Treatment Not on filedocumented as of this encounter Procedures Procedure Name Priority Date/Time Associated Diagnosis Comme nts INR, POCT, B Routine 05/23/2018 9:53 AM Results f or this CERTIFIED MEDICAL ASSISTANT procedure are i n the results section . documented in this encounter Results INR, POCT (05/23/2018 9:53 AM CERTIFIED MEDICAL ASSISTANT) P athologist Signature INR, POCT, B 3.0 05/23/2018 [facility] 9:53 AM CERTIFIED MEDICAL ASSISTANT [facility] Comment: ----ADDITIONAL INFORMATION---- Standard intensity warfarin therapeutic range: 2.0 to 3.0 ?? High intensity warfarin therapeutic rang e: 2.5 to 3.5 Specimen Anatomical Collection Method Collection Time Receive d Time (Source) Location / / Volume Laterality 05/23/2018 9:53 AM 9 9:55 CERTIFIED MEDICAL ASSISTANT AM CERTIFIED MEDICAL ASSISTANT [facility] POCT ORDERABLES - DEVICE Performing Organization Address City/State/ZIP Code Phon [facility] Number [facility] [address] [facility] [place] [address] LAB documented in this encounter Visit Diagnoses Diagnosis Thrombosis Deep Vein Acute Lower Leg Lef t (HCC) Product Architect (Current) Anticoagulant Treatm ent Monitoring For Therapeutic Drug Therapy documented in this encounter Care Teams Data Modeler Relationship Specialty Start Date End Date Kathy Gibson M.D. PCP - General Family Medicine 12/15/17 02/24/19 documented as of this encounter
--- OUTSIDE RECORDS SUMMARY | 2022-02-28 01:39 | XMS_ITS | Encounter Summary ---
:1940 Author Organization [facility] Address [address] [place] [address] Care Team Providers Name Role Phone Kathy Gibson M.D. Primary Care Provider Reason for Visit Reason Comments New Patient Dr Gibson Outpatient (Routine) - Closed Specialty Diagnoses / Referred By Contact Referred To Contact Procedures Cardiovascular Diseases / Diagnoses Hypertension And Chronic Kidney Disease Stage 3 (HCC) Kathy Gibson, [facility] Cardiovascular Disease Nichole[address] [place] [address] Referral ID Status Reason Start Date Expiration Date Visits Requ ested Visits Authorized [id number] Closed 05/23/2018 05/23/2019 1 1 Encounter Details Date Type Department Care Team Description 07/25/2018 Comprehensive Visit Department of Jesscia Butler eg (Primary Dx); Cardiovascular Brando Joseph M.D. Hypertension And Chronic Kidney Disease Stage 3 (HCC) Diseases in [address] [address] [place], [place] [phone] (Work) [phone] Social History Tobacco Use Types Packs/Day Years Used Date Smoking Tobacco: Never Smokeless Tobacco: Never Alcohol Use Standard Drinks/Week Comments No 0 (1 standard drink = 0.6 oz pure alcoho l) Sex Assigned at Date Recorded Female 09/25/2017 1:20 PM CDT documented as of this encounter Last Filed Vital Signs Vital Sign Reading Time Taken Comments Blood Pressure 176/61 07/25/2018 11:55 AM CDT Pulse 78 07/25/2018 11:55 AM CDT Temperature - - Respiratory Rate - - Oxygen Saturation 96% 07/25/2018 11:53 AM CDT Inhaled Oxygen Concentration - - Weight 76 kg (167 lb 8.8 oz) 07/25/2018 11:53 AM CDT Height 159 cm (5' 2.6) 07/25/2018 11:53 AM CDT Body Mass Index 30.06 07/25/2018 11:53 AM CDT documented in this encounter Consult Notes Brando Butler M.D. - 07/25/2018 12:15 PM CDT ASSESSMENT / PLAN 1. Hypertension, difficult to control. 2. Lower extremity edema. - Anticoagulated for DVT and cellulitis 02/2018, provoked based on records ([place]). Anticoagulation discontinued and now on aspirin. 3. Diabetes mellitus type 2 4. Chronic kidney disease, stage III 5. Obesity, BMI 30. 6. Rheumatoid arthritis 6. 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 Hypertension. Difficult to control. This may have at least a partial secondary cause from prednisoneuse. This is being slowly weaned off but still using 4 mg daily. Issues with worsening renal function with GUILLERMO inhibitors. Already careful with her diet. She reports no symptoms to suggest sleep apnea.I believe there is room for improvement on her pharmacologic therapy. I have proposed discontinuing diltiazem and starting the patient on carvedilol twice a day. This should help decrease the patient'sblood pressure, heart rate and minimize lower extremity edema (which could be a side effect of the calcium channel jason). I have also suggested utilizing short-acting furosemide twice a day to potentiate reduction of the blood pressure. The patient agrees to call us back with blood pressure in 2 weeks and, if not improved after optimization of beta-blockers, additional diuresis may need to take place. We will consider spironolactone use. She had used chlorthalidone in the past but was switched tofurosemide for lower extremity edema, based on records. If the addition of spironolactone is needed, we will assess for the possibility of hyperaldosteronism as well as renal artery stenosis prior to initiation of the medication. Even though ideally blood pressure be less than 130/80, would accept a blood pressure less than 140/90 on this patient while she is on prednisone, which hopefully will indeed be used short-term. I recommended continued follow-up with her primary care provider and consideration of repeating the lipid profile (last done in 2017) for additional risk stratification. This should help determine if statin therapy is required for primary prevention. No indication for secondary prevention at this time. Lower extremity edema. This possibly secondary to postoperative changes, venous insufficiency, post phlebitic syndrome and medication side effects. Still, I would like to rule out the possibility of a cardiac etiology. Other than for her lower extremity edema, she is euvolemic otherwise. An echocardiogram and electrocardiogram will be performed to assess the patient's systolic as well as diastolic function and look for any significant valvular abnormalities. Otherwise, no additional cardiovascular workup is needed at this time. PLAN: 1. Check and electrocardiogram has well as echocardiogram. 2. Stop diltiazem and start carvedilol 6.25 mg twice a day. Switch furosemide to 20 mg twice a day. 3. Call me with a BP log and symptoms (including weight/lower extremity edema) in 2 weeks. I will leave follow-up cardiology open at this time, may reconsider depending on test results and response to treatment. Continue regular follow-up primary care provider. CARDIOLOGY CONSULTATION Location: [facility] [place] Referring Provider: Kathy Gibson M.D. CHIEF COMPLAINT/REASON FOR CONSULT New Patient (Dr Gibson) HISTORY OF PRESENT ILLNESS Ms. Vanessa Andino is a very pleasant 77 y.o. female who presents to [facility] for hypertension. Her primary care provider is Kathy Gibson M.D.. Previously seen by Cardiology: No. Presenting with her fiance. The patient presents today reporting that she is having difficulty with her blood pressure control. Hypertension has been present for the past 2 years or so. Blood pressures at home are around 140-150 mmHg. She describes lower extremity edema but no chest pain, lightheadedness, shortness of breath, pal pitations or loss of consciousness. She states she has never had a myocardial infarction or stroke. She is compliant with medical therapy. She reports being unable to tolerate GUILLERMO inhibitors due to worsening renal function. She does not recall being on a beta-jason in the past. She is careful and following a low sodium diet already. She has been diagnosed with rheumatoid arthritis and has been on prednisone for the past 4 years. She states the dosages being slowly weaned off. Currently she is on 4mg daily and her veneer splicer decreasing the dosage or mg per month. She is also on Plaquenil. Herlast lipids were performed on 2016 and showed LDL 75, HDL 71, triglycerides 108. No snoring or daytime sleepiness. She describes worsening of her lower extremity edema, particularly on the right, aftertotal knee replacement performed June 2017. History of DVT and cellulitis in February based on records. Cardiovascular Risk Factors: 1. Smoking status: has never smoked 2. Type II Diabetes Mellitus: no. 3. Hypertension: no 4. Dyslipidemia: no. 5. Family history of early Coronary Artery Disease in a first degree relative (Male less than 55 years of age; Female less than 65 years of age): no 6. Obesity and/or Metabolic Syndrome: yes 7. Sedentary lifestyle: yes 8. Menopausal status: postmenopausal Current Outpatient Medications Medication Sig ??? aspirin [address] tablet Take 81 mg by mouth daily. ??? CALCIUM CARB/VIT D3/MINERALS (CALCIUM-VITAMIN D ORAL) Take 1 tablet by mouth daily. ??? dilTIAZem CD (CARDIZEM CD/CARTIA XT) 300 mg 24 hr capsule Take 1 capsule (300 mg total) by mouthdaily. ??? furosemide (LASIX) 40 mg tablet Take 1 tablet (40 mg total) by mouth daily. ??? hydroxychloroquine (PLAQUENIL) 200 mg tablet ??? MULTIVITAMIN ORAL Take 1 tablet by [...] mg(2.5 tablets) daily in November . ) ??? predniSONE (DELTASONE) 1 mg tablet Allergies Allergen Reactions ??? Clonidine Hallucinations ??? Leflunomide Hallucinations ??? Lisinopril Other (see comments) Increased creatinine ??? Methotrexate Other (see comments) Did not feel well ??? Oxycodone Other (see comments) No reaction listed in [facility] ??? Sulfa (Sulfonamide Antibiotics) Other (see comments) No reaction listed in [employer] Social History Social History ??? Marital status: Spouse name: N/A ??? Number of children: 5 ??? Years of education: N/A Occupational History ??? [employer] Social History Main Topics ??? Smoking status: Never Smoker ??? Smokeless tobacco: Never Used ??? Alcohol use No ??? Drug use: No ??? Sexual activity: Not Currently Partners: Male control/ protection: Post-menopausal Other Topics Concern ??? 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 Her from prostate cancer around 1994. Family History Problem Relation Age of Onset ??? Hypertension Brother ??? Diabetes Brother ??? Coronary artery disease Brother ??? Heart attack Brother In his 40s ??? Cataracts Father ??? Rheum arthritis Mother ??? Stroke Son Due to blood clot. ??? No Known Problems Son REVIEW OF SYSTEMS Constitutional: Negative for fatigue, fever, weight gain of more than 10 pounds and weight loss of more than 10 pounds. Skin: Negative for skin rash. Eyes: Negative for double vision and visual problems. ENT: Negative for persistent hoarse voice. Respiratory: Negative for coughing up blood, coughing up mucus (phlegm), dry cough, dyspnea and sleep disturbances due to breathing. Cardiovascular: Negative for chest pain, pressure or tightness, swelling in the legs or feet, rapid or fluttering heart beat, pain in the calf muscles when walking and shortness of breath when lying flat. Gastrointestinal: Negative for abdominal (belly) pain or cramping, blood in stool, heartburn and difficulty swallowing. Genitourinary: Negative for hematuria. Hematologic: Positive for bruises or bleeds easily. Musculoskeletal: Positive for arthralgias and pain or stiffness in the joints. Negative for muscle pain/stiffness. Neurological: Negative for seizures, loss of consciousness, light-headedness, numbness or shooting pain in hands, arms, legs, or feet, excessive daytime sleepiness, loss of balance or tendency to fall easily, headaches and weakness in arms or legs. Psychiatric/Behavioral: Negative for excessive daytime sleepiness/tiredness, snores loudly and stop breathing, choking, or gasping while asleep. The following systems were negative: Eyes The following portions of the patient's history were reviewed and updated as appropriate: allergies,current medications, family history, medical history, social history, surgical history and problem list. OBJECTIVE Vitals: 07/25/18 1153 07/25/18 1155 BP: (!) 168/57 (!) 176/61 BP Location: Left arm Right arm Patient Position: Sitting Sitting Cuff Size: Regular Regular Pulse: 76 78 SpO2: 96% Weight: 76 kg Height: 159 cm BP Readings from Last 3 Encounters: 07/25/18 (!) 176/61 06/29/18 160/76 05/28/18 (!) 166/67 Body mass index is 30.06 kg/m??. PHYSICAL EXAMINATION GENERAL: Patient is awake, alert, oriented x3. No acute distress. EYES: Pupils are equal and symmetric in size, normal extraocular movements. No pallor. No icterus. No xanthelasma. ENT: Normal dentition, tongue is not enlarged. No drainage from the ear canals bilaterally. NECK: No jugular venous distention. No carotid bruits, 2+ carotid upstroke bilaterally. CHEST/LUNGS: No chest deformity. Normal respiratory effort. Good entry bilaterally. No adventitious sounds. CARDIOVASCULAR: Normal rate and regular rhythm. Normal S1 and S2. There is a 2/6 systolic ejection murmur at the right upper sternal border, early peaking, no radiation. No rubs, or gallops. Negative hepatojugular reflux. ABDOMEN: Soft, nontender, nondistended. Positive bowel sounds. No pulsatile masses. LOWER EXTREMITIES: Lower extremity warm with 2+ pitting edema on the right and 1+ on the left. Wearing compression stockings. UPPER EXTREMITIES: 2+ Radial pulses bilaterally. Normal capillary refill. No clubbing, no cyanosis. NEUROLOGIC: Weakness in the joints, particularly in the hands. DIAGNOSTICS I have reviewed the patient's current laboratory, imaging, and other diagnostic studies. Pertinent laboratory studies have been reviewed and are notable for: Anticoagulation Visit on 06/18/2018 Component Date Value ??? INR, POCT, B 06/18/2018 2.6 Anticoagulation Visit on 06/08/2018 Component Date Value ??? INR, POCT, B 06/08/2018 2.0 Anticoagulation Visit on 06/05/2018 Component Date Value ??? INR, POCT, B 06/05/2018 4.1 Office Visit on 05/23/2018 Component Date Value ??? Potassium, S 05/23/2018 4.1 ??? Sodium, S 05/23/2018 140 ??? Chloride, S 05/23/2018 101 ??? Bicarbonate, S 05/23/2018 28 ??? Anion Gap 05/23/2018 11 ??? Bld Urea Nitrog(BUN), S 05/23/2018 20 ??? Creatinine, S 05/23/2018 1.18* ??? eGFR-Non Black 05/23/2018 44* ??? eGFR-Black 05/23/2018 51* ??? Calcium, Total 05/23/2018 9.2 ??? Glucose, S 05/23/2018 120 Anticoagulation Visit on 05/23/2018 Component Date Value ??? INR, POCT, B 05/23/2018 3.0 Anticoagulation Visit on 05/14/2018 Component Date Value ??? INR, POCT, B 05/14/2018 2.5 Anticoagulation Visit on 05/09/2018 Component Date Value ??? INR, POCT, B 05/09/2018 1.9 Anticoagulation Visit on 05/02/2018 Component Date Value ??? INR, POCT, B 05/02/2018 3.5 Office Visit on 05/02/2018 Component Date Value ??? Potassium, S 05/02/2018 4.5 ??? Sodium, S 05/02/2018 139 ??? Chloride, S 05/02/2018 102 ??? Bicarbonate, S 05/02/2018 27 ??? Anion Gap 05/02/2018 10 ??? Bld Urea Nitrog(BUN), S 05/02/2018 31* ??? Creatinine, S 05/02/2018 1.28* ??? eGFR-Non Black 05/02/2018 40* ??? eGFR-Black 05/02/2018 46* ??? Calcium, Total 05/02/2018 9.7 ??? Glucose, S 05/02/2018 115 Anticoagulation Visit on 04/27/2018 Component Date Value ??? INR, POCT, B 04/27/2018 3.1 There may be more visits with results that are not included. Lab Results Component Value Date CHOL 168 12/26/2016 TRIG 108 12/26/2016 HDL 71 12/26/2016 Pertinent cardiac (or related) studies have been reviewed and are notable for: Electrocardiogram June 2017: Sinus rhythm, 87 BPM, Premature ventricular complexes Nonspecific ST and T wave abnormality When compared with ECG of 27-APR-2016 13:27, Premature ventricular complexes are now present IMPRESSION/REPORT/PLAN See above. documented in this encounter Plan of Treatment Not on filedocumented as of this encounter Results ECG 12 Lead (08/29/2018 1:13 PM CDT) P athologist Signature Ventricular Rate 71 BPM MUSE ECG/Min CA Interval 212 ms MUSE QRSD Interval 100 ms MUSE QT Interval 448 ms MUSE QTC Interval 486 ms MUSE P [place] 66 degrees MUSE R [place] 49 degrees MUSE T Wave [place] 43 degrees MUSE Specimen Anatomical Collection Method [...] Code Phon e Number MUSE MUSE NA (TTE) 2D ECHO DOPPLER COLOR (08/29/2018 1:08 PM CDT) Patholo gist Method Time Signature Ejection Fraction 61 MC CV EIMS Sinus of Valsalva 34 MC CV EIMS Mid-Ascending Aorta 32 MC CV EIMS LV Mass Index 69 MC CV EIMS LV End-Diastolic 47 MC CV EIMS Diameter LV End-Systolic 31 MC CV EIMS Diameter LV End-Diastolic 106 MC CV EIMS Volume LV End-Systolic 45 MC CV EIMS Volume MV E Velocity 0.8 MC CV EIMS MV A Velocity 1.1 MC CV EIMS MV E/A 0.73 MC CV EIMS MV e' Velocity 0.08 MC CV EIMS Medial MV e' Velocity 0.11 MC CV EIMS Lateral MV E/e' Medial 10.0 MC CV EIMS MV E/e' Lateral 7.3 MC CV EIMS Left ventricular 48 MC CV EIMS stroke volume index Cardiac Output 6.09 MC CV EIMS Cardiac Index 3.44 MC CV EIMS LV Interventricular 8 MC CV EIMS Septal Wall Thickness LV Posterior Wall 8 MC CV EIMS Thickness LV Relative Wall 34 MC CV EIMS Thickness Tricuspid Annular S? 0.14 MC CV EIMS TR Vmax 2.72 MC CV EIMS RA Pressure 5 MC CV EIMS RV Systolic Pressure 35 MC CV EIM S AV mean gradient 6 MC CV EIMS Aortic valve area 2.14 MC CV EIMS Aortic Valve 0.68 MC CV EIMS Dimensionless Index MV regurgitant 24 MC CV EIMS volume LA Volume Index 41 MC CV EIMS Anatomical Region Laterality Modality Echocardiography Specimen (Source) Anatomical Collection Method Collection Time Re ceived Time Location / / Volume Laterality 08/29/2018 12:16 PM CDT Narrative 08/29/2018 2:46 PM CDT For the complete report, see the [employer] Documents below. Final Impressions 1. Normal left ventricular chamber size. ??Calculated ejection fraction 61%. ??No regional wall motion abnormalities. 2. Findings consistent with normal left ventricular filling pressure. 3. Normal right ventricular size and sys tolic function. ??Estimated right ventricular systolic pressure 35 mmHg. 4. Normal inferior vena cava size with n ormal inspiratory collapse (>50%). 5. Mild-moderate left atrial enlargement . ??Left atrial volume index 41 ml/m^2. 6. Mildly thickened mitral valve with mi ld (possibly [id number]) mitral regurgitation. 7. No pericardial effusion. Findings Transthoracic outreach echo interpretati on. ??LEFT VENTRICLE: ??Normal left ventricular chamber size. ??Normal left ventricular wall thi ckness. ??Calculated left ventricular ejection fraction 61 %. ??Left ventricular volumes were pe rformed but not reported based on site interpreter's judgment. ??No regional wall motion abno rmalities. ??Findings consistent with normal left ventricular filling pressure. ??Anomalou s left ventricular chord. ??RIGHT VENTRICLE: ??Normal right ventricular size. ??Normal right v entricular systolic function. ??Estimated right ventricular systolic pressure 35 mmHg (s ystolic blood pressure 154 mmHg). ??ATRIA: Mild-moderate left atrial enlargement. ? ?Left atrial volume index 41 ml/m^2. ??Mild right atrial enlargement. ??CARDIAC VALVES: ??Trileaf let aortic valve. ??Mildly thickened aortic valve. ??No aortic valve regurgitation. ??Mildly thi ckened mitral valve. ??Mild mitral valve regurgitation. Mitral regurgitation ERO (PISA) 0.12 cm^ 2. ??Mitral regurgitant volume (PISA) 24 ml. ??Mildly thickened pulmonary valve. ??Normal pulm onary valve systolic velocity. ??Trivial pulmonary valve regurgitation. ??Normal tricuspid valve. ??Mild tricuspid valve regurgitation. ??OTHER ECHO FINDINGS: ??Normal inferior vena cava si ze with normal inspiratory collapse (>50%). ??Normal ascending aorta dimension. ??No abdomina l aortic aneurysm. ??Normal abdominal aorta Doppler flow pattern. ??No atrial level shunt by colo r flow imaging. ??No intracardiac mass or thrombus, but the left atrial appendage cannot be visu alized adequately with transthoracic echo to exclude thrombus in this location. ??No pericard ial effusion. For the complete report, see the [facility] Documents below. See PDF For Result Procedure Note Brando Butler M.D. - 08/29/2018Form atting of this note might be different from the original. For the complete report, see the [employer] Documents below. Final Impressions 1. Normal left ventricular chamber size. Calculated ejection fraction 61%. No regional wall motion abnormalities. 2. Findings consistent with normal left ventricular filling pressure. 3. Normal right ventricular size and sys tolic function. Estimated right ventricular systolic pressure 35 mmHg. 4. Normal inferior vena cava size with n ormal inspiratory collapse (>50%). 5. Mild-moderate left atrial enlargement . Left atrial volume index 41 ml/m^2. 6. Mildly thickened mitral valve with mi ld (possibly [id number]) mitral regurgitation. 7. No pericardial effusion. Findings Transthoracic outreach echo interpretati on. LEFT VENTRICLE: Normal left ventricular chamber size. Normal left ventricular wall thick ness. Calculated left ventricular ejection fraction 61 %. Left ventricular volumes were perf ormed but not reported based on site interpreter's judgment. No regional wall motion abnorm alities. Findings consistent with normal left ventricular filling pressure. Anomalous left ventricular chord. RIGHT VENTRICLE: Normal right ventricular size. Normal right alonso tricular systolic function. Estimated right ventricular systolic pressure 35 mmHg (s ystolic blood pressure 154 mmHg). ATRIA: Mild-moderate left atrial enlargement. L eft atrial volume index 41 ml/m^2. Mild right atrial enlargement. CARDIAC VALVES: Trileaflet aortic valve. Mildly thickened aortic valve. No aortic valve regurgitation. Mildly thick ened mitral valve. Mild mitral valve regurgitation. Mitral regurgitation ERO (PISA) 0.12 cm^ 2. Mitral regurgitant volume (PISA) 24 ml. Mildly thickened pulmonary valve. Normal pulmon gutierrez valve systolic velocity. Trivial pulmonary valve regurgitation. Normal tricuspid valve. M ild tricuspid valve regurgitation. OTHER ECHO FINDINGS: Normal inferior vena cava size with normal inspiratory collapse (>50%). Normal ascending aorta dimension. No abdominal aortic aneurysm. Normal abdominal aorta Doppler flow pattern. No atrial level shunt by color flow imaging. No intracardiac mass or thrombus, but the left atrial appendage cannot be visu alized adequately with transthoracic echo to exclude thrombus in this location. No pericardia l effusion. For the complete report, see the [employer] [facility] Documents below. See PDF For Result Brando Butler M.D. CV ECHO PROCEDURES documented in this encounter Visit Diagnoses Diagnosis Edema Leg - Primary Hypertension And Chronic Kidney Disease Stage 3 (HCC) Hypertension And Chronic Kidney Disease Stage 3 (HCC) Edema Leg Hypertension And Chronic Kidney Disease Stage 3 (HCC) documented in this encounter Care Teams Loss Prevention/Safety District Manager Relationship Specialty Start Date End Date Kathy Gibson M.D. PCP - General Family Medicine 12/15/17 02/24/19 documented as of this encounter
--- OUTSIDE RECORDS SUMMARY | 2022-02-28 01:39 | XMS_ITS | Encounter Summary ---
:1940 Author Organization [facility] Address [address] [place] [address] Care Team Providers Name Role Phone Kathy Gibson M.D. Primary Care Provider Encounter Details Date Type Department Care Team Description 08/29/2018 Hospital Encounter Department of Pessanha, Hyperten alona And Chronic Kidney Disease Stage 3 (HCC); Cardiovascular Diseases Brando Joseph M.D. Edema Leg in [facility] [address] [facility] [address] [place] [phone] Social History Tobacco Use [...] Taken Comments Blood Pressure - - Pulse - - Temperature - - Respiratory Rate - - Oxygen Saturation - - Inhaled Oxygen Concentration - - Weight - - Height 159 cm (5' 2.6) 08/29/2018 12:16 PM CDT Body Mass Index - - documented in this encounter Medications at Time of Discharge [...] November . documented as of this encounter Miscellaneous Notes Result Encounter Note - Ericka Yao CReginaMReginaARegina - 08/29/2018 4:36 PM CDT Name of person contacted: Patient Relationship to patient: Not applicable Call back number: [phone] Medical Officer: Not applicable Information provided: patient notifed of results and Doctors recommendations She said she has enough pills to increase to 1.5 tabs twice a day. storeperson/patient received and understood education/information provided: Yes storeperson/patient agreed to the Plan of Care: Yes Result Encounter Note - Ericka Yao C.M.A. - 08/29/2018 2:58 PM CDT Left message for Patient to call back No need to ask about BP Dr. Butler has reviewed her BP log that she has dropped off she will need to increase her carvedilol to 9.375 taking one and a half tabs twice a day. Make sure she is taking 6.25mg twice a day first. Result Encounter Note - Brando Butler M.D. - 08/29/2018 2:51 PM CDT Please call the patient with stable results on electrocardiogram. Echo showed no significant abnormalities. Please check with the patient how his blood pressure is running at home. If blood pressures are persistently above 140/90, please propose further up titration of carvedilol to 9.375 mg twice a day (the patient should be currently taking 6.25 mg twice a day; if the dosages different, please let me know). If we have to change the medication, please ask the patient to call me with blood pressure log in 3 weeks (start measuring blood pressures 1 week after the dosage has been increased). Thank you, rBando Butler documented in this encounter Plan of Treatment Not on filedocumented as of this encounter Procedures Procedure Name Priority Date/Time Associated Diagnosis Comme nts (TTE) 2D ECHO Routine 08/29/2018 1:08 PM Hypertension And Resu lts for this DOPPLER COLOR CDT Chronic Kidney procedure ar e in Disease Stage 3 (HCC) the results Edema Leg section. documented in this encounter Results (TTE) 2D ECHO DOPPLER COLOR (08/29/2018 1:08 PM CDT) [facility] Method Time Signature Ejection Fraction 61 MC [...] thickened mitral valve with mi ld (possibly lhfo-yn-ertzoily) mitral regurgitation. 7. No pericardial effusion. Findings Transthoracic outreach echo interpretati on. ??LEFT VENTRICLE: ??Normal left ventricular chamber size. ??Normal left ventricular wall thi ckness. ??Calculated left ventricular ejection fraction 61 %. ??Left ventricular volumes were pe rformed but not reported based on electrician office's judgment. ??No regional wall motion abno rmalities. [...] effusion. For the complete report, see the [employer] Documents below. See PDF For Result Procedure Note Brando Butler M.D. - 08/29/2018Form atting of this note might be different from the original. For the complete report, see the [employer] Documents below. Final Impressions 1. Normal left [...] thickened mitral valve with mi ld (possibly fexn-dm-cqekxxkz) mitral regurgitation. 7. No pericardial effusion. Findings Transthoracic outreach echo interpretati on. LEFT VENTRICLE: Normal left ventricular chamber size. Normal left ventricular wall thick ness. Calculated left ventricular ejection fraction 61 %. Left ventricular volumes were perf ormed but not reported based on electrician office's judgment. No regional wall motion abnorm alities. [...] Kidney Disease Stage 3 (HCC) Edema Leg documented in this encounter Care Teams Bench Lay Out Technician Relationship Specialty Start Date End Date Kathy Gibson M.D. PCP - General Family Medicine 12/15/17 02/24/19 documented as of this encounter
--- OUTSIDE RECORDS SUMMARY | 2022-02-28 01:39 | XMS_ITS | Encounter Summary ---
:1940 Author Organization [facility] Address [address] [place] [address] Care Team Providers Name Role Phone Kathy Gibson M.D. Primary Care Provider Reason for Visit Reason Comments Follow-up Appointment Request (Routine) - Closed Specialty Diagnoses / Procedures Referred By Contact Refer red To Contact Family Medicine Referral ID Status Reason Start Date Expiration Date Visits Requ ested Visits Authorized [id number] Closed 07/31/2018 07/31/2019 1 Encounter Details Date Type Department Care Team Description 08/08/2018 Office Visit Department of [facility] Kathy Gibson Obe sity Body Mass Index 30-39.9 Adult (Primary Dx); MedicineShyla M.D. Primary Osteoarthritis Multiple Sites; Clinic, [address] Arthritis Rheumatoid ([facility]); [place], [place] Hypertension And Chronic Kid oracio Disease Stage 3 (HCC); [address] [facility] [address] Thrombosis Deep Vein Personal History; [place], [place] [phone] Screening Oste oporosis [phone] (Work) [phone] Social History Tobacco Use Types Packs/Day Years Used Date Smoking Tobacco: Never Smokeless Tobacco: Never Alcohol Use Standard Drinks/Week Comments No 0 (1 standard drink = 0.6 oz pure alcoho l) Sex Assigned at Date Recorded Female 09/25/2017 1:20 PM CDT documented as of this encounter Last Filed Vital Signs Vital Sign Reading Time Taken Comments Blood Pressure 154/72 08/08/2018 1:45 PM CDT Pulse 76 08/08/2018 1:42 PM CDT Temperature 36.6 ??C (97.9 ??F) 08/08/2018 1:42 PM CDT Respiratory Rate 16 08/08/2018 1:42 PM CDT Oxygen Saturation - - Inhaled Oxygen Concentration - - Weight 74 kg (163 lb 2.3 oz) 08/08/2018 1:42 PM CDT Height - - Body Mass Index 29.27 07/25/2018 11:53 AM CDT documented in this encounter Progress Notes Kathy Gibson M.D. - 08/08/2018 2:00 PM CDT CHIEF COMPLAINT/REASON FOR VISIT Multiple issues HISTORY OF PRESENT ILLNESS This 77-year old female presents to clinic secondary to multiple issues. She states her vegetable specker advises a bone density study. She would be happy to pursue this recommendation. She is on a prednisone wean and is planning to go down to 4 mg of prednisone from 5 mg 08/25/2018. Blood pressure has been quite variable and she has a telephone call planned for later today with her Cardiology Department. She states her blood pressure was stable yesterday when she was seen in the orthopedist department. She is taking all of her medications as prescribed. She is not short of breath. She is having no palpitations. She has multiple comorbidities. EMR reviewed. CURRENT MEDICATIONS Current Outpatient Prescriptions: ??? aspirin [address] tablet, Take 81 mg by mouth daily., Disp: , Rfl: ??? CALCIUM CARB/VIT D3/MINERALS (CALCIUM-VITAMIN D ORAL), Take 1 tablet by mouth daily. , Disp: , Rfl: ??? carvedilol (COREG) 6.25 mg tablet, Take 1 tablet (6.25 mg total) by mouth 2 (two) times a day with meals., Disp: 60 tablet, Rfl: 11 ??? furosemide (LASIX) 40 mg tablet, Take 0.5 tablets (20 mg total) by mouth 2 (two) times a day., Disp: 90 tablet, Rfl: 3 ??? hydroxychloroquine (PLAQUENIL) 200 mg tablet, , Disp: , Rfl: 0 ??? MULTIVITAMIN ORAL, Take 1 tablet by mouth daily. , Disp: , Rfl: ??? predniSONE (DELTASONE) 5 mg tablet, Start [...] ), Disp: 109 tablet, Rfl: 3 ??? predniSONE (DELTASONE) 1 mg tablet, , Disp: , Rfl: 0 Allergies [...] Procedure Laterality Date ??? BREAST BIOPSY Right 1972 ??? BREAST BIOPSY Right 1971 ??? BREAST SURGERY Right 1983 Benign x 2 ??? CATARACT EXTRACTION AND INSERTION OF INTRAOCULAR LENS Bilateral ??? CHOLECYSTECTOMY ??? FLEXIBLE SIGMOIDOSCOPY 11/2003 ??? HYSTERECTOMY ABDOMINAL WITH SALPINGO - OOPHORECTOMY Bilateral 1991 Nonmalignant reasons with associated bladder repair ??? REPLACEMENT TOTAL KNEE Right 06/2017 ??? SACRAL NERVE STIMULATOR PLACEMENT 05/04/2016 Advanced trial of [facility] PREVENTIVE SERVICES Tobacco none Mammogram 01/11/2018 Pap smear nonapplicable secondary to stated age Colon screen 11/19/[address] Dominguez low risk,??currently declining additional [...] clot. ??? No Known Problems Son Vitals: 08/08/18 1342 08/08/18 1345 BP: 160/70 154/72 Patient Position: Sitting Sitting Pulse: 76 Temp: 36.6 ??C Resp: 16 Weight: 74 kg TempSrc: Temporal Repeat blood pressure 154/72 PHYSICAL EXAM General: Neatly dressed well groomed. HEENT: Ears: TMs are jacobsen, good visualization of landmarks. Nose: Mucosal membranes pink and moist. Oral: No exudates. Teeth in fair condition. No pharyngeal erythema. Neck: Range of motion consistent with patient's stated age body habitus. Trachea midline. Lymph nodes: No cervical adenopathy. Thyroid: No thyroid masses, tenderness or enlargement. Heart: Regular rate and rhythm. No clicks, rubs or murmurs. Lungs: Clear to auscultation with slightly increased expiratory phase. No palpable chest wall masses. Abdomen: Soft, nontender, bowel sounds present, no organomegaly. Extremities: 1+ ankle edema with support stockings in place ASSESSMENT/PLAN 1. Hypertension superimposed on chronic kidney disease stage 3 with evaluation and treatment in process 2. Rheumatoid arthritis superimposed on primary osteoarthritis multiple sites with steroid wean in process with plans for bone density study in the near future 3. Obesity-progressive 4. Personal history of DVTs currently clinically stable Supportive measures discussed in detail. As patient does have cardiology involved in the phone call is planned for later today MD will defer the decision making in terms of her medication adjustments to that department. Will arrange for bone density study. EMR documentation is completed. Follow-up is planned with her vegetable specker September 20, 2018. She will continue on her other medications in the interim. Risks and benefits of medications discussed. All questions answered. Signs and symptoms to lead to emergent evaluation are reviewed. See the medication reconciliation and preventive services. She is comfortable with the above plan. documented in this encounter Plan of Treatment [...] BMD BONE DENSITY SPINE HIPS COMPARISON: 02/25/2008 Clay Plant Treater/Model: GE FINDINGS: ?? LUMBAR SPINE L1-L4 included unless [...] BMD BONE DENSITY SPINE HIPS COMPARISON: 02/25/2008 Clay Plant Treater/Model: GE FINDINGS: LUMBAR SPINE L1-L4 included unless otherwise [...] documented in this encounter Visit Diagnoses Diagnosis Obesity Body Mass Index 30-39.9 Adult - Primary Primary Osteoarthritis Multiple Sites Arthritis Rheumatoid (HCC) Hypertension And Chronic Kidney Disease Stage 3 (HCC) Thrombosis Deep Vein Personal History Screening Osteoporosis Screening Osteoporosis documented in this encounter Care Teams Dehydrogenation Supervisor Relationship Specialty Start Date End Date Kathy Gibson M.D. PCP - General Family Medicine 12/15/17 02/24/19 documented as of this encounter
--- OUTSIDE RECORDS SUMMARY | 2022-02-28 01:39 | XMS_ITS | Encounter Summary ---
:1940 Author Organization [facility] Address [address] [place] [address] Care Team Providers Name Role Phone Kathy Gibson M.D. Primary Care Provider Reason for Visit Reason Comments Med Refill Encounter Details Date Type Department Care Team Description 06/14/2018 Refill Department of Family Medicine, Kathy joyner M.D. Med Refill [facility], in [address] [place] [id number] [place] [address] [place] [address] [phone] Social History Tobacco Use Types Packs/Day Years Used Date Smoking Tobacco: Never Smokeless Tobacco: Never Alcohol Use Standard Drinks/Week Comments No 0 (1 standard drink = 0.6 oz pure alcoho l) Sex Assigned at Date Recorded Female 09/25/2017 1:20 PM CDT documented as of this encounter Miscellaneous Notes Telephone Encounter - Jeri Morales - 06/14/2018 12:40 PM CDT Nurse review: Unable to pend medication; anti-coag request sent via [employer] Note it appears this may have been attempted to be re-ordered 06/08/18 but it was but it was neither e-scribed or printed so it did not go to a pharmacy Primary Provider: Kathy Gibson M.D. Name of medication: Warfarin Pharmacy: [facility] documented in this encounter Plan of Treatment Not on filedocumented as of this encounter Visit Diagnoses Not on filedocumented in this encounter Care Teams Manager Of Case Management Relationship Specialty Start Date End Date Kathy Gibson M.D. PCP - General Family Medicine 12/15/17 02/24/19 documented as of this encounter
--- OUTSIDE RECORDS SUMMARY | 2022-02-28 01:39 | XMS_ITS | Encounter Summary ---
:1940 Author Organization [facility] Address [address] [place] [address] Care Team Providers Name Role Phone Kathy Gibson M.D. Primary Care Provider Reason for Visit Reason Comments Med Refill Encounter Details Date Type Department Care Team Description 05/25/2018 Refill Department of Family Medicine, Kathy joyner M.D. Med Refill [facility], in [address] [place] [address] [place] [address] [place] [address] [phone] Social History Tobacco Use Types Packs/Day Years [...] on filedocumented in this encounter Care Teams Aviation Technical Systems Specialist Relationship Specialty Start Date End Date Kathy Gisbon M.D. PCP - General Family Medicine 12/15/17 02/24/19 documented as of this encounter
--- OUTSIDE RECORDS SUMMARY | 2022-02-28 01:39 | XMS_ITS | Encounter Summary ---
:1940 Author Organization [facility] Address [address] [place] [address] Care Team Providers Name Role Phone Kathy Gibson M.D. Primary Care Provider Encounter Details Date Type Department Care Team Description 06/05/2018 Anticoagulation Visit Department of Yonas Gibson Deep Vein Acute Lower Leg Left (HCC); Anticoagulation in [facility], Group Home Anticoagulant Treatment; Bruce Mansfield M.D. Monitoring For Therapeutic Drug Therapy [address] [facility] [address] [facility] [phone] [place] [address] Social History Tobacco Use Types Packs/Day Years Used Date Smoking Tobacco: Never Smokeless Tobacco: Never Alcohol Use Standard Drinks/Week Comments No 0 (1 standard drink = 0.6 oz pure alcoho l) Sex Assigned at Date Recorded Female 09/25/2017 1:20 PM CDT documented as of this encounter Progress Notes Mónica Knox, R.N. - 06/05/2018 11:00 AM CDT Warfarin Maintenance Nursing Protocol Goal Range 2.0-3.0 (version approved 11/25/16) Visit Type: Patient presents for Ncyq-ii-Mgzi visit in Anticoagulation Service. Primary reason for visit: Routine f/u OR f/u per previous visit recommendations Information provided by: patient Inclusion Criteria: All inclusion criteria met. Proceeded to exclusion criteria. Exclusion Criteria: No exclusion criteria, proceeded to screening criteria. Screening Criteria: -Patient has had a change in diet, lifestyle, alcohol intake, or health status in the last 3 days. Proceeded to maintenance warfarin dosing. Patient to return for follow-up INR in 7-10 days or sooner if indicated by protocol follow-up. Additional info: - Pt reports 05/28/18 visit with her eye drRegina Solo, [place], [place]. States she was told she has blood in her eye and this is due to warfarin. States she did have blood tinged mucous in her nose. Denies any other bleeding. Reviewed signs/symptoms of bleeding and what to do if this occurs. Reviewed with Dr Gibson, pts PCP. Will request notes from 05/28/18 Dr Solo visit for PCP review. Pharm consult due to plan out of protocol. Previous INR was therapeutic. Today???s INR is Supratherapeutic, Causes: Unknown. Dosing and follow up recommendation: INR 4.1-5 MMador-RPh consulted. Dose ordered: Hold warfarin today and decrease 50%x1 dose. .. Next INR: Recheck within 5 days No warfarin today then 5mg Mon, and recheck inr Mon. Pt on LMWH: No Patient Visit summary [...] Diagnosis Comme nts INR, POCT, B Routine 06/05/2018 11:02 AM Results for this CDT procedure are i n the results section . documented in this encounter Results INR, POCT (06/05/2018 11:02 AM CDT) P athologist Signature INR, POCT, B 4.1 06/05/2018 [facility] 11:02 AM CDT [facility] Comment: ----ADDITIONAL INFORMATION---- Standard intensity warfarin therapeutic range: 2.0 to 3.0 ?? High intensity warfarin therapeutic rang e: 2.5 to 3.5 Specimen Anatomical Collection Method Collection Time Receive d Time (Source) Location / / Volume Laterality 06/05/2018 11:02 06/05/2018 AM CDT 11:10 AM CDT [facility] POCT ORDERABLES - DEVICE Performing Organization Address City/State/ZIP Code Phon e Number [facility] [address] [facility] [place] [address] LAB documented in this encounter Visit Diagnoses Diagnosis Thrombosis Deep Vein Acute Lower Leg Lef t (HCC) Group Home (Current) Anticoagulant Treatm ent Monitoring For Therapeutic Drug Therapy documented in this encounter Care Teams Stone Polisher Relationship Specialty Start Date End Date Kathy Gibson M.D. PCP - General Family Medicine 12/15/17 02/24/19 documented as of this encounter
[2022-02-28 01:40] LABS: Alanine Aminotransferase* 30 U/L (4-35); Albumin* 3.4 g/dL (3.3-5.0); Alkaline Phosphatase* 214 U/L (40-150); Aspartate Amino Transferase* 45 U/L (12-35); Bilirubin Total* 0.8 mg/dL (0.1-1.5); Ethanol* < 0.01 % (0.01-0.03); Magnesium* 1.9 mg/dL (1.5-2.6); NT Pro B Type NatriureticPept* 2480 PG/mL (0-450); Total Protein* 6.5 g/dL (6.0-8.3)
--- OUTSIDE RECORDS SUMMARY | 2022-02-28 01:40 | XMS_ITS | Encounter Summary ---
:1940 Author Organization [facility] Address [address] [place] [address] Care Team Providers Name Role Phone Kathy Gibson M.D. Primary Care Provider Reason for Referral Outpatient (Routine) - Closed Specialty Diagnoses / Procedures Referred By Contact Refer red To Contact Urology Diagnoses Retention Urinary Infection Urinary Tract Recurrent Kathy Gibson M.D. [facility] Region [address] [place] [address] Referral ID Status Reason Start Date Expiration Date Visits Requ ested Visits Authorized [id number] Closed 02/07/2018 02/07/2019 1 1 NT BABYSITTER Reason for Visit Reason Comments Post Hospital Follow-up bladder infection Encounter Details Date Type Department Care Team Description 02/07/2018 Office Visit Department of [facility] Kathy Gibson Dia betes Mellitus Type 2 (HCC) (Primary Dx); Medicine, Shyla Soria Arthritis Rheumatoid (HCC); Clinic, in [address] Hypertension And Chronic Kidney Disease Stage 3 (HCC); [place], [place] Obesity Body Mass Index 30-3 9.9 Adult; [address] [address] Retention Urinary; [place], [place] [phone] Infection Urin gutierrez Tract Recurrent [id number] (Work) [phone] Social History Tobacco Use Types Packs/Day Years Used Date Smoking Tobacco: Never Smokeless Tobacco: Never Alcohol Use Standard Drinks/Week Comments No 0 (1 standard drink = 0.6 oz pure alcoho l) Sex Assigned at Date Recorded Female 09/25/2017 1:20 PM CDT documented as of this encounter Last Filed Vital Signs Vital Sign Reading Time Taken Comments Blood Pressure 170/56 02/07/2018 2:02 PM INFANT BABYSITTER Pulse 78 02/07/2018 1:58 PM INFANT BABYSITTER Temperature - - Respiratory Rate 16 02/07/2018 1:58 PM INFANT BABYSITTER Oxygen Saturation - - Inhaled Oxygen Concentration - - Weight 77.2 kg (170 lb 1.4 oz) 02/07/2018 1:58 PM INFANT BABYSITTER Height - - Body Mass Index 30.33 01/11/2018 10:23 AM CDT documented in this encounter Progress Notes Kathy Gibson M.D. - 02/07/2018 2:00 PM CST CHIEF COMPLAINT/REASON FOR VISIT Hospital follow-up HISTORY OF PRESENT ILLNESS [id number] old female presents to clinic secondary to hospital follow-up. She was admitted with urinary tract infection. It came on quite suddenly and quite severe to the point her significant other dialed 911 [address] her to the [facility]. She is currently taking cefadroxil twice per dayand is feeling much better. 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 She straight caths 3-4 times per day on average but occasionally will be up to 6-7 times per day if she feels uncomfortable. She has had no additional fevers or chills. She last saw her urology nurse practitioner in November. Follow-up was planned about 6 months. She is not short of breath. She is having no palpitations. Her musculoskeletal issues are being stabilized with her residential sales manager and she has an appointment coming up with Dr. Nunez in February 2018. Her prednisone has been increased to 9 mg each day. EMR reviewed. MEDICATION RECONCILIATION Current Outpatient Prescriptions: ??? ASPIRIN ORAL, Take 1 tablet by mouth daily. , Disp: , Rfl: ??? CALCIUM CARB/VIT D3/MINERALS (CALCIUM-VITAMIN D ORAL), Take 1 tablet by mouth daily. , Disp: , Rfl: ??? cefadroxil (DURICEF) 500 mg capsule, , Disp: , Rfl: 0 ??? dilTIAZem CD (for_CARDIZEM CD/CARTIA XT) 240 mg 24 hr capsule, Take 1 capsule (240 mg total) by mouth every morning., Disp: 90 capsule, Rfl: 3 ??? furosemide (LASIX) 40 mg tablet, Take 1 tablet (40 mg total) by mouth daily., Disp: 90 tablet, Rfl: 3 ??? MULTIVITAMIN ORAL, Take 1 tablet by mouth daily. , Disp: , Rfl: ??? predniSONE (DELTASONE) 1 mg tablet, , Disp: , Rfl: 0 ??? predniSONE (DELTASONE) 5 mg tablet, Start 17.5 mg( 3.5 tablets) on September 24, 2017 then 15 mg(3 tablets daily) daily for Oct 2017 then 12.5 mg(2.5 tablets) daily in November . (Patient taking differently: Take 10 mg by mouth daily. Start 17.5 mg( 3.5 tablets) on September 24, 2017 then 15 mg(3 tabletsdaily) daily for Oct 2017 then 12.5 mg(2.5 tablets) daily in November . ), Disp: 109 tablet, Rfl: 3 ??? raNITIdine (ZANTAC) 150 mg tablet, Take 1 tablet (150 mg total) by mouth 2 (two) times a day., Disp: 60 tablet, Rfl: 0 Allergies Allergen Reactions ??? Leflunomide Hallucinations ??? Methotrexate Other (see [...] NERVE STIMULATOR PLACEMENT 05/04/2016 Advanced trial of InterSti PREVENTIVE SERVICES Tobacco none Mammogram 01/11/2018 Pap smear nonapplicable secondary to stated age Colon screen 11/19/[address] Dominguez low risk Depression no Asthma no Lipids 12/26/2016 increased Tdap 02/03/2016 Pneumovax 07/09/2005 Prevnar 01/19/2015 Influenza [...] clot. ??? No Known Problems Son Vitals: 02/07/18 1358 02/07/18 1402 BP: (!) 180/64 (!) 170/56 Patient Position: Sitting Sitting Pulse: 78 Resp: 16 Weight: 77.2 kg Repeat blood pressure 170/56 but please note she has had stable blood pressure readings in recent past PHYSICAL EXAM General: Neatly dressed well groomed. HEENT: PERRL. EOMs are full. Ears: TMs are jacobsen, good visualization of landmarks. Nose: Mucosal membranes pink and moist. Oral: No exudates. Teeth in fair condition. No pharyngeal erythema. Neck: Rangeof motion consistent with patient's stated age body habitus. Trachea midline. Lymph nodes: No cervical adenopathy. Thyroid: No thyroid masses, tenderness or enlargement. Heart: Regular rate and rhythm. No clicks, rubs or murmurs. Lungs: Clear to auscultation. No palpable chest wall masses. Abdomen: Soft, nontender, bowel sounds present, no organomegaly. ASSESSMENT/PLAN 1. Recent rare urinary tract infection with hospitalizations superimposed on urinary retention with evaluation and treatment in process 2. Hypertension superimposed on chronic renal disease stage III with flare aggravated by 1. 3. Diabetes mellitus type 2-stable 4. Rheumatoid arthritis with treatment regimen in process with close follow-up with her urologist inplace Supportive measures discussed in detail. Reviewed her recent hospitalization records and copy will be made for her EMR record. Complete her course of antibiotics. Follow up with her specialty care providers as planned and arrange for an earlier appointment with her urology provider. Will defer the decision whether not prophylactic antibiotics might be appropriate to her Urology Department. Risks and benefits of medications discussed. All questions answered. Signs and symptoms to lead to emergent evaluation are reviewed. See the medication reconciliation and preventive services. She and her significant other are comfortable with the plan. Spent 15 of the 25 minute visit in discussion. NT BABYSITTER documented in this encounter Plan of Treatment Scheduled Referrals Name Type Priority Associated Diagnoses Order S [facility] Urology - General Outpatient Referral Routine Retention Urinary Expected: - lower urinary Infection Urinary 018 symptoms consult Tract Recurrent (Approxi mate), (clinic) Expires: 02/07/2021 documented as of this encounter Visit Diagnoses Diagnosis Diabetes Mellitus Type 2 (HCC) - Primary Arthritis Rheumatoid (HCC) Hypertension And Chronic Kidney Disease Stage 3 (HCC) Obesity Body Mass Index 30-39.9 Adult Retention Urinary Infection Urinary Tract Recurrent documented in this encounter Care Teams Finishing Tunnel Operator Relationship Specialty Start Date End Date Kathy Gibson M.D. PCP - General Family Medicine 12/15/17 02/24/19 documented as of this encounter
--- OUTSIDE RECORDS SUMMARY | 2022-02-28 01:40 | XMS_ITS | Encounter Summary ---
:1940 Author Organization [facility] Address [address] [place] [address] Care Team Providers Name Role Phone Kathy Gibson M.D. Primary Care Provider Reason for Visit Reason Comments Follow-up Appointment Request (Routine) - Closed Specialty Diagnoses / Procedures Referred By Contact Refer red To Contact Family Medicine Referral ID Status Reason Start Date Expiration Date Visits Requ ested Visits Authorized [id number] Closed 03/29/2018 03/29/2019 1 Encounter Details Date Type Department Care Team Description 04/05/2018 Office Visit Department of [facility] Kathy Gibson, Art hroplasty Total Knee Replacement Status Post Left (Primary Dx); MedicineShyla M.D. Assisted Anticoagulant Treatment [Z79.0 1]; Clinic, in [address] Hypertension And Chronic Kidney Disease Stage 3 ([facility]); [place], [place] Obesity Body Mass Index 30-3 9.9 Adult; [address] [address] Thrombosis Deep Vein Acute Lower Leg Lef t ([facility]); [place], [place] [phone] Diabetes Melli tus Type 2 ([facility]); [address] (Work) Arthritis Rheumatoid ([facility]) [phone] Social History Tobacco Use Types Packs/Day Years Used Date Smoking Tobacco: Never Smokeless Tobacco: Never Alcohol Use Standard Drinks/Week Comments No 0 (1 standard drink = 0.6 oz pure alcoho l) Sex Assigned at Date Recorded Female 09/25/2017 1:20 PM CDT documented as of this encounter Last Filed Vital Signs Vital Sign Reading Time Taken Comments Blood Pressure 156/68 04/05/2018 10:07 AM MOTOR HOTEL MANAGER Pulse 80 04/05/2018 10:00 AM MOTOR HOTEL MANAGER Temperature 36.3 ??C (97.3 ??F) 04/05/2018 10:00 AM MOTOR HOTEL MANAGER Respiratory Rate 16 04/05/2018 10:00 AM MOTOR HOTEL MANAGER Oxygen Saturation - - Inhaled Oxygen Concentration - - Weight 77.5 kg (170 lb 13.7 oz) 04/05/2018 10:00 AM MOTOR HOTEL MANAGER Height 155 cm (5' 1.02) 04/05/2018 10:00 AM MOTOR HOTEL MANAGER Body Mass Index 32.26 04/05/2018 10:00 AM MOTOR HOTEL MANAGER documented in this encounter Progress Notes Kathy Gibson M.D. - 04/05/2018 10:15 AM CST CHIEF COMPLAINT/REASON FOR VISIT Follow-up multiple issues HISTORY OF PRESENT ILLNESS This 77-year old female presents to clinic secondary to follow-up multiple issues. She is slowly improving. The area at the site of her former biopsy continues to be a bit scaly but it is slowly improving. She has not been applying any emollients to this area as she was fearful she might injure the are a. She is not short of breath. She is having no palpitations. She continues on Lovenox. She has an appointment with the INR clinic later today. She is in process of weaning off her prednisone and has an appointment with her brusher and shearer Dr. Nunez 05/02/2018. Her blood pressure continues to be oren vated. She is taking her medications as prescribed. EMR reviewed. CURRENT MEDICATIONS Current Outpatient Prescriptions: ??? CALCIUM CARB/VIT D3/MINERALS (CALCIUM-VITAMIN D ORAL), Take 1 tablet by mouth daily. , Disp: , Rfl: ??? dilTIAZem CD (for_CARDIZEM CD/CARTIA XT) 240 [...] day., Disp: 60 tablet, Rfl: 0 ??? amoxicillin-pot clavulanate (AUGMENTIN) 875-125 mg per tablet, , Disp: , Rfl: 0 ??? enoxaparin (LOVENOX) 80 mg/0.8 mL injection, Give 70mg enoxaparin subq every 12 hour., Disp: 10 Syringe, Rfl: 1 ??? lisinopril (PRINIVIL,ZESTRIL) 10 mg tablet, Take 1 tablet (10 mg total) by mouth daily., Disp: 90 tablet, Rfl: 0 ??? warfarin (COUMADIN) 2.5 mg tablet, 2 tab(5mg) Mon,Mon,Mon and 3tab(7.5mg) all the other days of week Take warfarin in evening, Disp: 30 tablet, Rfl: 1 Allergies Allergen Reactions ??? Leflunomide Hallucinations ??? [...] BIOPSY Right 1972 ??? BREAST BIOPSY Right 1970 ??? BREAST [...] secondary to stated age Colon screen 11/19/[address] Dominguez low risk, currently declining additional evaluation Depression no Asthma no Lipids 12/26/2016, increased Tdap 02/03/2016 Pneumovax 07/09/2005 Prevnar 01/19/2015 [...] clot. ??? No Known Problems Son Vitals: 04/05/18 1000 04/05/18 1007 BP: 154/74 156/68 Patient Position: Sitting Sitting Pulse: 80 Temp: 36.3 ??C Resp: 16 Height: 155 cm Weight: 77.5 kg TempSrc: Temporal PHYSICAL EXAM General: Neatly dressed well groomed. HEENT: Neck: Range of motion consistent with patient's stated age body habitus. Trachea midline. Lymph nodes: No cervical adenopathy. Thyroid: No thyroid masses, tenderness or enlargement. Heart: Regular rate and rhythm. No clicks, rubs or murmurs. Lungs: Clear to auscultation. No palpable chest wall masses. Abdomen: Soft, nontender, bowel sounds present, no organomegaly. Neuro: Slow steady gait with the use of her walker Musculoskeletal: Chronic venous stasis changes noted in the left lower extremity. The scaly eschar at the site of the former biopsy site is slowly resolving. The foot is warm and dry. Support stocking is in place on the right leg. ASSESSMENT/PLAN 1. 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 Cellulitis slowly stabilizing 3. Hypertension superimposed on chronic renal disease with treatment in process 4. Rheumatoid arthritis with follow-up planned with her brusher and shearer 5. Diabetes mellitus type 2- stable Supportive measures discussed in detail. Agree with follow-up with the INR clinic. Will add a low dose of lisinopril. Recheck is planned for about a month and will recheck her labs at that time. As sheis on a calcium channel jason, a beta-jason would not be appropriate. She is already on a diuretic. Therefore the options in terms of an additional blood pressure medication were limited at best. Given her kidney disease this may need to be reconsidered, but close follow-up is planned. Increased emollients are planned. Area of concern is healing but consideration for follow-up with wound specialty care may need to be reconsidered in the future. Risks and benefits of medications discussed. All questions answered. Signs and symptoms to lead to emergent evaluation are reviewed. See the medication reconciliation and preventive services. She will consider her options. R HOTEL MANAGER documented in this encounter Plan of Treatment Not on filedocumented as of this encounter Visit Diagnoses Diagnosis Arthroplasty Total Knee Replacement Stat us Post Left - Primary Assisted Anticoagulant Treatment [Z79.0 1] Hypertension And Chronic Kidney Disease Stage 3 (HCC) Obesity Body Mass Index 30-39.9 Adult Thrombosis Deep Vein Acute Lower Leg Lef t (HCC) Diabetes Mellitus Type 2 (HCC) Arthritis Rheumatoid (HCC) documented in this encounter Care Teams Coil Assembler Relationship Specialty Start Date End Date Kathy Gibson M.D. PCP - General Family Medicine 12/15/17 02/24/19 documented as of this encounter
--- OUTSIDE RECORDS SUMMARY | 2022-02-28 01:40 | XMS_ITS | Encounter Summary ---
:1940 Author Organization [facility] Address [address] [place] [address] Care Team Providers Name Role Phone Kathy Gibson M.D. Primary Care Provider Encounter Details Date Type Department Care Team Description 04/16/2018 Anticoagulation Visit Department of [facility] Gibson Deep Vein Acute Lower Leg Left (HCC); Anticoagulation in Kathy Shea, Alf Anticoagulant Treatment; Bruce Mansfield M.D. Monitoring For Therapeutic Drug Therapy [address] [facility] [address] [facility] [phone] [facility] Social History Tobacco Use Types Packs/Day Years Used Date Smoking Tobacco: Never Smokeless Tobacco: Never Alcohol Use Standard Drinks/Week Comments No 0 (1 standard drink = 0.6 oz pure alcoho l) Sex Assigned at Date Recorded Female 09/25/2017 1:20 PM CDT documented as of this encounter Progress Notes Mónica Knox, R.N. - 04/16/2018 10:15 AM CST Warfarin Maintenance Nursing Protocol Goal Range 2.0-3.0 (version approved 11/25/16) Visit Type: Patient presents for [id number] visit in Anticoagulation Service. Primary reason for visit: Routine f/u OR f/u per previous visit recommendations Information provided by: patient Inclusion Criteria: All inclusion criteria met. Proceeded to exclusion criteria. Exclusion Criteria: No exclusion criteria, proceeded to screening criteria. Screening Criteria: -Patient within first 12 weeks of warfarin therapy: INR out of range. Proceed to maintenance warfarin dosing and follow up for dosing. Additional info: None Previous INR was therapeutic. 2.3 Today???s INR is 3.1 Supratherapeutic, Causes: Unknown. Dosing and follow up recommendation: INR 3.1-3.2 No change in weekly dose. . Next INR: Patient is inthe first 12 weeks of warfarin therapy, recheck in 8-10 days. Warfarin 7.5mg daily. Pt requests to continue with 2.5mg tabs. Recheck one week Pt on LMWH: No Patient Visit summary provided to: Patient provided with handout of warfarin dosing and next INR appointment. patient and caregiver repeats back dosing instructions and has no further questions at thistime. Patient is agreeable to the plan of care . NTURE EDUCATION TEACHER documented in this encounter Plan of Treatment Not on filedocumented as of this encounter Procedures Procedure Name Priority Date/Time Associated Diagnosis Comme nts INR, POCT, B Routine 04/16/2018 10:26 AM Results for this ADVENTURE EDUCATION TEACHER procedure are i n the results section . documented in this encounter Results INR, POCT (04/16/2018 10:26 AM ADVENTURE EDUCATION TEACHER) P athologist Signature INR, POCT, B 3.1 04/16/2018 [facility] 10:26 AM ADVENTURE EDUCATION TEACHER [facility]- [facility] Comment: ----ADDITIONAL INFORMATION---- Standard intensity warfarin therapeutic range: 2.0 to 3.0 ?? High intensity warfarin therapeutic rang e: 2.5 to 3.5 Specimen Anatomical Collection Method Collection Time Receive d Time (Source) Location / / Volume Laterality 04/16/2018 10:26 04/16/2018 AM ADVENTURE EDUCATION TEACHER 10:28 AM ADVENTURE EDUCATION TEACHER Generic [facility] POCT ORDERABLES - DEVICE Performing Organization Address City/State/ZIP Code Phon e Number [facility] [address] [place] [address] LAB documented in this encounter Visit Diagnoses Diagnosis Thrombosis Deep Vein Acute Lower Leg Lef t (HCC) Alf (Current) Anticoagulant Treatm ent Monitoring For Therapeutic Drug Therapy documented in this encounter Care Teams Intern Product Marketing Manager Relationship Specialty Start Date End Date Kathy Gibson M.D. PCP - General Family Medicine 12/15/17 02/24/19 documented as of this encounter
--- OUTSIDE RECORDS SUMMARY | 2022-02-28 01:40 | XMS_ITS | Encounter Summary ---
:1940 Author Organization [facility] Address [address] [place] [address] Care Team Providers Name Role Phone Kathy Gibson M.D. Primary Care Provider Encounter Details Date Type Department Care Team Description 03/08/2018 Abstract [facility] THOMAS Aguayo ea Provider, Historical [address] [place] [address] Social History Tobacco Use Types Packs/Day [...] Associated Diagnosis Comme nts CBC WITH Routine 02/03/2018 6:38 AM Results f or this DIFFERENTIAL, B SET UP INSPECTOR procedure ar e in the results section. C-REACTIVE PROTEIN Routine 02/03/2018 6:38 AM Res ults for this (CRP), S/P SET UP INSPECTOR procedure are i n the results section. HEPATIC FUNCTION Routine 02/03/2018 6:38 AM Resul ts for this PANEL SET UP INSPECTOR procedure are i n the results section. BASIC METABOLIC Routine 02/03/2018 6:38 AM Result s for this PANEL, S/P SET UP INSPECTOR procedure are i n the results section. documented in this encounter Results CRP (C-Reactive Protein) (02/03/2018 6:38 AM SET UP INSPECTOR) P athologist Signature C-Reactive 2.30 EXTERNAL Protein (CRP), NON-INTERFACED S LAB Specimen (Source) Anatomical Location Collection Method / Collectio n Time Received Time / Laterality Volume Blood (Blood, Venous) Ordering Provider External M.D. LAB BLOOD ADD-ON Performing Organization Address [facility] Phon e Number EXTERNAL NON-INTERFACED LAB [address] [place], [place] [address] Hepatic function panel (02/03/2018 6:38 AM SET UP INSPECTOR) [facility] Method Time Signature Alkaline 86 25 - 125 EXTERNAL Phosphatase, S NON-INTERFACE D LAB Alanine 26 7 - 35 EXTERNAL Amniotransferase, LD NON-INTER FACE D LAB Aspartate 27 13 - 35 EXTERNAL Aminotransferase NON-INTERFACE (AST), S D LAB Bilirubin, Total, S 0.5 0.1 - 1.4 EXTERNAL NON-INTERFACE D LAB Bilirubin, Direct, S 0.3 0.01 - EXTERNAL 0.4 NON-INTERFACE D LAB Specimen (Source) Anatomical Location Collection Method / Collectio n Time Received Time / Laterality Volume Blood (Blood, Venous) Ordering Provider External M.D. LAB BLOOD ADD-ON Performing Organization Address [facility] Phon e Number EXTERNAL NON-INTERFACED LAB [address] [place], [place] [address] (ABNORMAL) Basic Metabolic Panel (02/03/2018 6:38 AM SET UP INSPECTOR) athologist Signature Glucose 158 mg/dL EXTERNAL NON-INTERFACE D LAB BUN (Blood Urea 30 (A) 4 - 21 EXTERNAL Nitrogen), S NON-INTERFACE D LAB Creatinine 0.8 0.5 - 1.1 EXTERNAL NON-INTERFACE D LAB Potassium, S 4.3 3.4 - 5.3 EXTERNAL NON-INTERFACE D LAB Sodium, S 136 (A) 137 - 147 EXTERNAL NON-INTERFACE D LAB Specimen (Source) Anatomical Location Collection Method / Collectio n Time Received Time / Laterality Volume Blood (Blood, Venous) Ordering Provider External M.D. LAB BLOOD ADD-ON Performing Organization Address [facility] Phon e Number EXTERNAL NON-INTERFACED LAB [address] [place], [place] [address] (ABNORMAL) CBC with Differential, Blood (02/03/2018 6:38 AM SET UP INSPECTOR) [facility] gist Method Time Signature Hemoglobin 11.0 (A) 12.0 - EXTERNAL 16.0 NON-INTERFACE D LAB Hematocrit 35 (A) 36 - 46 % EXTERNAL NON-INTERFACE D LAB Absolute 9.38 (A) 1.30 - EXTERNAL Neutrophils 8.30 NON-INTERFACE D LAB Platelet Count 285 150 - 399 EXTERNAL NON-INTERFACE D LAB Auto WBC 11.6 (A) 3.3 - 10.0 EXTERNAL 10*3/mL NON-INTERFACE D LAB Specimen (Source) Anatomical Location Collection Method / Collectio n Time Received Time / Laterality Volume Blood (Blood, Venous) Ordering Provider External M.D. LAB BLOOD ADD-ON Performing Organization Address City/State/ZIP Code Phon e Number EXTERNAL NON-INTERFACED LAB [address] [place], [place] [address] documented in this encounter Visit Diagnoses Not on filedocumented in this encounter Care Teams Hydroelectric Station Operator Relationship Specialty Start Date End Date Kathy Gibson M.D. PCP - General Family Medicine 12/15/17 02/24/19 documented as of this encounter
--- OUTSIDE RECORDS SUMMARY | 2022-02-28 01:40 | XMS_ITS | Encounter Summary ---
:1939 Author Organization [facility] Address [address] [place] [address] Care Team Providers Name Role Phone Kathy Gibosn M.D. Primary Care Provider Encounter Details Date Type Department Care Team Description 04/09/2018 Anticoagulation Visit Department of Yonas Gibson Deep Vein Acute Lower Leg Left (HCC); Anticoagulation in Kathy Shea, [facility] Anticoagulant Treatment; Bruce Mansfield M.D. Monitoring For Therapeutic Drug Therapy [address] [facility] [id number] [facility] [phone] [place] [address] Social History Tobacco Use Types Packs/Day Years Used Date Smoking Tobacco: Never Smokeless Tobacco: Never Alcohol Use Standard Drinks/Week Comments No 0 (1 standard drink = 0.6 oz pure alcoho l) Sex Assigned at Date Recorded Female 09/25/2017 1:20 PM CDT documented as of this encounter Progress Notes Mónica Knox, RReginaN. - 04/09/2018 10:30 AM CST Warfarin Maintenance Nursing Protocol Goal Range 2.0-3.0 (version approved 11/25/16) Visit Type: Patient presents for Ejga-mg-Hfgg visit in Anticoagulation Service. Primary reason for visit: Routine f/u OR f/u per previous visit recommendations Information provided by: patient Inclusion Criteria: All inclusion criteria met. Proceeded to exclusion criteria. Exclusion Criteria: No exclusion criteria, proceeded to screening criteria. Screening Criteria: All screening criteria negative. Proceeded to maintenance warfarin dosing and follow-up Additional info: stop enoxaparin Previous INR was subtherapeutic.1.6 Today???s INR is Therapeutic. 2.3 Dosing and follow up recommendation: INR 2.0-3.0 No change in weekly dose. Next INR: Twice amount oftime since last INR (max 4-6 weeks): 7 days warfarin 7.5mg daily. Recheck one week Plan to change to 5mg tab when completes current 2.5mg she has at home Pt on LMWH: No Patient Visit summary provided to: Patient provided with handout of warfarin dosing and next INR appointment. patient and friend repeats back dosing instructions and has no further questions at this time. Patient is agreeable to the plan of care . HASING INTERN documented in this encounter Plan of Treatment Not on filedocumented as of this encounter Procedures Procedure Name Priority Date/Time Associated Diagnosis Comme nts INR, POCT, B Routine 04/09/2018 10:44 AM Results for this PURCHASING INTERN procedure are i n the results section . documented in this encounter Results INR, POCT (04/09/2018 10:44 AM PURCHASING INTERN) P athologist Signature INR, POCT, B 2.3 04/09/2018 [facility] 10:44 AM PURCHASING INTERN [employer] LAB Comment: ----ADDITIONAL INFORMATION---- Standard intensity warfarin therapeutic range: 2.0 to 3.0 ?? High intensity warfarin therapeutic rang e: 2.5 to 3.5 Specimen Anatomical Collection Method Collection Time Receive d Time (Source) Location / / Volume Laterality 04/09/2018 10:44 04/09/2018 AM PURCHASING INTERN 10:46 AM PURCHASING INTERN Generic Rals LAB POCT ORDERABLES - DEVICE Performing Organization Address City/State/ZIP Code Phon e Number [facility] [address] [place] [address] LAB documented in this encounter Visit Diagnoses Diagnosis Thrombosis Deep Vein Acute Lower Leg Lef t (HCC) Gas Brazer (Current) Anticoagulant Treatm ent Monitoring For Therapeutic Drug Therapy documented in this encounter Care Teams Web Press Operator Relationship Specialty Start Date End Date Kathy Gibson M.D. PCP - General Family Medicine 12/15/17 02/24/19 documented as of this encounter
--- OUTSIDE RECORDS SUMMARY | 2022-02-28 01:40 | XMS_ITS | Encounter Summary ---
:1939 Author Organization [facility] Address [address] [place] [address] Care Team Providers Name Role Phone Kathy Gibson M.D. Primary Care Provider Encounter Details Date Type Department Care Team Description 04/02/2018 Clinical Communication Department of Hetal Mead, Orthopedic Surgery in [place], [place] [address], [address] [place], [place] [phone] Social History Tobacco Use Types Packs/Day Years Used Date Smoking Tobacco: Never Smokeless Tobacco: Never Alcohol Use Standard Drinks/Week Comments No 0 (1 standard drink = 0.6 oz pure alcoho l) Sex Assigned at Date Recorded Female 09/25/2017 1:20 PM CDT documented as of this encounter Miscellaneous Notes Telephone Encounter - Sheyla Aguilar L.PReginaNRegina - 04/03/2018 12:50 PM ASSISTANT PROFESSOR OF SPANISH Called pt and notified her that Dr Mead sent Augmentin rx into [facility] for her upcomingdental appt, pt states that she already went and picked up rx. STANT PROFESSOR OF SPANISH Addendum Note - Hetal Mead M.D. - 04/02/2018 1:59 PM ASSISTANT PROFESSOR OF SPANISH Addended by: HETAL MEAD on: 04/02/2018 01:59 PM Modules accepted: Orders STANT PROFESSOR OF SPANISH Telephone Encounter - Sheyla Aguilar L.P.N. - 04/02/2018 10:35 AM ASSISTANT PROFESSOR OF SPANISH Pt presents to clinic today to ask about taking an antibiotic before she goes to the dentist, pt states that she went to the dentist in December and took an antibiotic from Dr Uribe, informed pt that sheneeds to take an antibiotic before each dental appt until she is one year past her right TKA done on07/12/17, pt verbalized understanding and agreement, she is unsure if she has refills on the antibiotic that was given to her, she will check her bottle at home, and I will call [facility] where she had this refilled to check. Called [facility] and they state that pt was given Augmentin 500 mg 1 tablet before dental appt 1 tablet and no refills on 12/05/[address] Mead pt is requesting refills of antibiotics for upcoming dental appt, please review and advise STANT PROFESSOR OF SPANISH documented in this encounter Plan of Treatment Not on filedocumented as of this encounter Visit Diagnoses Not on filedocumented in this encounter Care Teams Quiller Runner Relationship Specialty Start Date End Date Kathy Gibson M.D. PCP - General Family Medicine 12/15/17 02/24/19 documented as of this encounter
--- OUTSIDE RECORDS SUMMARY | 2022-02-28 01:40 | XMS_ITS | Encounter Summary ---
:1939 Author Organization [facility] Address [address] [place] [address] Care Team Providers Name Role Phone Kathy Gibson M.D. Primary Care Provider Reason for Visit Reason Onset Date Comments Post Hospital Follow-up 03/26/2018 Encounter Details Date Type Department Care Team Description 03/26/2018 Clinical Communication Department of Kathy Gibson [facility] Family MedicineMonse M.D. Follow-up [facility], [address] [place] [address] in [facility] [address] [address] [facility] [phone] [place], [place] (Work) [phone] Social History Tobacco Use Types Packs/Day Years Used Date Smoking Tobacco: Never Smokeless Tobacco: Never Alcohol Use Standard Drinks/Week Comments No 0 (1 standard drink = 0.6 oz pure alcoho l) Sex Assigned at Date Recorded Female 09/25/2017 1:20 PM CDT documented as of this encounter Miscellaneous Notes Telephone Encounter - Giselle Cabrera - 03/26/2018 11:24 AM CST Hospital: [facility] Diagnosis: Cellulitis and DVT Discharge date: 03/26/18 When to be seen: 03/29/18 Comments: WELL PUMPER documented in this encounter Plan of Treatment Not on filedocumented as of this encounter Visit Diagnoses Not on filedocumented in this encounter Care Teams Care Transition Manager Relationship Specialty Start Date End Date Kathy Gibson M.D. PCP - General Family Medicine 12/15/17 02/24/19 documented as of this encounter
--- OUTSIDE RECORDS SUMMARY | 2022-02-28 01:40 | XMS_ITS | Encounter Summary ---
:1939 Author Organization [facility] Address [address] [place] [address] Care Team Providers Name Role Phone Kathy Gibson M.D. Primary Care Provider Reason for Visit Reason Comments Follow-up Appointment Request (Routine) - Closed Specialty Diagnoses / Procedures Referred By Contact Refer red To Contact Family Medicine Referral ID Status Reason Start Date Expiration Date Visits Requ ested Visits Authorized [id number] Closed 04/05/2018 04/05/2019 1 1 Encounter Details Date Type Department Care Team Description 05/02/2018 Office Visit Department of [facility] Kahty Gibson, Hyp ertension And Chronic Kidney Disease Stage 3 (HCC) (Primary Dx); Medicine, Shyla Soria Arthritis Rheumatoid ([facility]); Clinic, in [address] Diabetes Mellitus Type 2 ([facility]); [place], [place] Thrombosis Deep Vein Acute L ower Extremity Left (HCC); [address] [address] Primary Osteoarthritis Multiple Sites [place], [place] [phone] (Work) [phone] Social History Tobacco Use Types Packs/Day Years Used Date Smoking Tobacco: Never Smokeless Tobacco: Never Alcohol Use Standard Drinks/Week Comments No 0 (1 standard drink = 0.6 oz pure alcoho l) Sex Assigned at Date Recorded Female 09/25/2017 1:20 PM CDT documented as of this encounter Last Filed Vital Signs Vital Sign Reading Time Taken Comments Blood Pressure 150/66 05/02/2018 10:19 AM HIDE SORTER Pulse 76 05/02/2018 10:08 AM HIDE SORTER Temperature 36.4 ??C (97.5 ??F) 05/02/2018 10:08 AM HIDE SORTER Respiratory Rate 16 05/02/2018 10:08 AM HIDE SORTER Oxygen Saturation - - Inhaled Oxygen Concentration - - Weight 76.8 kg (169 lb 3.3 oz) 05/02/2018 10:08 AM HIDE SORTER Height - - Body Mass Index 31.95 04/05/2018 10:00 AM HIDE SORTER documented in this encounter Progress Notes Kathy Gibson M.D. - 05/02/2018 10:15 AM CST CHIEF COMPLAINT/REASON FOR VISIT Multiple issues HISTORY OF PRESENT ILLNESS This 77-year old female presents to clinic secondary to multiple issues. Her INR is stabilizing. Shewill be seeing the INR clinic following her appointment today. She has a new DVT which is slowly resolving and giving her no pain in her left lower leg at this time. She has known renal disease stage III with uncontrolled hypertension. She was recently trialed on a low dose of an GUILLERMO- inhibitor. She ishaving no side effects of which she can recall. She is regaining her energy but with the recent weather has not started her exercise program. She is not short of breath. She is having no palpitations. She is having no true bowel or bladder changes of which she can recall. She is taking her other medications as prescribed. She is accompanied by her support system. EMR reviewed. CURRENT MEDICATIONS Current Outpatient Prescriptions: [...] tablet, , Disp: , Rfl: 0 ??? cloNIDine (CATAPRES) 0.1 mg tablet, Take 1 tablet (0.1 mg total) by mouth daily., Disp: 30 tablet, Rfl: 0 Allergies Allergen Reactions ??? [...] BIOPSY Right 1971 ??? BREAST BIOPSY Right 1971 ??? BREAST [...] secondary to stated age Colon screen 11/19/[address] Dominguez low risk,??currently declining additional [...] clot. ??? No Known Problems Son Vitals: 05/02/18 1008 05/02/18 1012 05/02/18 1019 BP: 150/76 148/68 150/66 Patient Position: Sitting Sitting Sitting Pulse: 76 Temp: 36.4 ??C Resp: 16 Weight: 76.8 kg TempSrc: Temporal PHYSICAL EXAM General: Neatly [...] expiratory phase. No palpable chest wall masses. LABS AND PROCEDURES Results for orders placed or performed in visit on 05/02/18 BMP (Basic Metabolic Panel) Result Value Ref Range Potassium, S 4.5 3.6 - 5.2 mmol/L Sodium, S 139 135 - 145 mmol/L Chloride, S 102 98 - 107 mmol/L Bicarbonate, S 27 22 - 29 mmol/L Anion Gap 10 7 - 15 Bld Urea Nitrog(BUN), S 31 (H) 6 - 21 mg/dL Creatinine, S 1.28 (H) 0.59 - 1.04 mg/dL eGFR-Non Black 40 (L) >=60 mL/min/BSA eGFR-Black 46 (L) >=60 mL/min/BSA Calcium, Total 9.7 8.8 - 10.2 mg/dL Glucose, S 115 70 - 140 mg/dL ASSESSMENT/PLAN 1. Hypertension with chronic renal disease stage III with treatment in process 2. Rheumatoid arthritis slowly weaning off prednisone with plans to cancel appointment today plannedfor tomorrow secondary to weather conditions 3. DVT in the left lower extremities slowly resolving on anticoagulation followed by the INR clinic 4. Diabetes mellitus type 2 currently clinically stable 5. Primary osteoarthritis multiple sites-progressive Supportive measures discussed in detail. Various options of managing her blood pressure are reviewed. As her creatinine has become worse with the addition of the GUILLERMO-inhibitor will discontinue the product and changed to clonidine. New Rx for clonidine given. This information was sent a letter and reviewed with her over the telephone with nursing staff as well when the lab report was available. Follow-up is planned for 3-4 weeks with green hide inspector. Close follow-up with the INR clinic is in process.Risks and benefits of medications discussed. All questions answered. Signs and symptoms to lead to emergent evaluation are reviewed. See the medication reconciliation and preventive services. She will c onsider her options. SORTER documented in this encounter Miscellaneous Notes Addendum Note - Kathy Gibson M.D. - 05/02/2018 10:15 AM HIDE SORTER Addended by: KATHY GIBSON on: 05/03/2018 09:19 AM Modules accepted: Orders SORTER documented in this encounter Plan of Treatment Not on filedocumented as of this encounter Procedures Procedure Name Priority Date/Time Associated Diagnosis Comme nts BASIC METABOLIC Routine 05/02/2018 10:38 Hypertension And Resu lts for this PANEL, S/P AM HIDE SORTER Chronic Kidney procedure are in Disease Stage 3 (HCC) the re sults section. documented in this encounter Results (ABNORMAL) BMP (Basic Metabolic Panel) (05/02/2018 10:38 AM HIDE SORTER) Analysis Performed At Patho logist Time Signature Potassium, S 4.5 3.6 - 5.2 05/02/2018 [facility] mmol/L 1:44 PM [facility] Sodium, S 139 135 - 145 05/02/2018 [facility] mmol/L 1:44 PM [facility] Chloride, S 102 98 - 107 05/02/2018 [facility] mmol/L 1:44 PM [facility] Bicarbonate, S 27 22 - 29 05/02/2018 [facility] mmol/L 1:44 PM [facility] Anion Gap 10 7 - 15 05/02/2018 [facility] 1:44 PM [facility] BUN (Blood Urea 31 (H) 6 - 21 05/02/2018 [facility] Nitrogen), S mg/dL 1:44 PM [facility] Creatinine 1.28 (H) 0.59 - 05/02/2018 [facility] 1.04 mg/dL 1:44 PM [facility] eGFR-Non 40 (L) >=60 05/02/2018 [facility] Black/ mL/min/BSA 1:[address] [facility] Comment: ----ADDITIONAL INFORMATION---- Estimated GFR calculated using the 2009 CKD_EPI creatinine equation. eGFR-Black/ 46 (L) >=60 mL/min/BSA 05/02/2018 1:44 [facility] Comment: ----ADDITIONAL INFORMATION---- Estimated GFR calculated using the 2009 CKD_EPI creatinine equation. Calcium, Total, S 9.7 8.8 - 10.2 mg/dL 05/02/2018 1 :44 PM [facility] Glucose, S 115 70 - 140 mg/dL 05/02/2018 1:44 PM [facility] Specimen Anatomical Collection Method Collection Time Receive d Time (Source) Location / / Volume Laterality Blood (Blood, 05/02/2018 10:38 05/02/2018 1:26 Venous) AM [facility] PM HIDE SORTER Kathy Gibson M.D. LAB BLOOD ADD-ON Performing Organization Address City/State/ZIP Code Phon e Number [facility] [address] [place] [address] LAB documented in this encounter Visit Diagnoses Diagnosis Hypertension And Chronic Kidney Disease Stage 3 (HCC) - Primary Arthritis Rheumatoid (HCC) Diabetes Mellitus Type 2 (HCC) Thrombosis Deep Vein Acute Lower Extremi ty Left (HCC) Primary Osteoarthritis Multiple Sites documented in this encounter Care Teams Continuous Washer Operator Relationship Specialty Start Date End Date Kathy Gibson M.D. PCP - General Family Medicine 12/15/17 02/24/19 documented as of this encounter
--- OUTSIDE RECORDS SUMMARY | 2022-02-28 01:40 | XMS_ITS | Encounter Summary ---
:1939 Author Organization [facility] Address [address] [place] [address] Care Team Providers Name Role Phone Kathy Gibson M.D. Primary Care Provider Encounter Details Date Type Department Care Team Description 03/29/2018 Orders Only Department of Mónica Knox Thrombosis D eep Vein Anticoagulation in D, R.N. Acute Lower Leg Left [place], [place] [address] [facility] (Primary Dx) [address] [place] [phone] Social History Tobacco Use Types Packs/Day Years Used Date Smoking Tobacco: Never Smokeless Tobacco: Never Alcohol Use Standard Drinks/Week Comments No 0 (1 standard drink = 0.6 oz pure alcoho l) Sex Assigned at Date Recorded Female 09/25/2017 1:20 PM CDT documented as of this encounter Plan of Treatment Not on filedocumented as of this encounter Visit Diagnoses Diagnosis Thrombosis Deep Vein Acute Lower Leg Lef t (HCC) - Primary documented in this encounter Care Teams National Sales Relationship Specialty Start Date End Date Kathy Gibson M.D. PCP - General Family Medicine 12/15/17 02/24/19 documented as of this encounter
--- OUTSIDE RECORDS SUMMARY | 2022-02-28 01:40 | XMS_ITS | Encounter Summary ---
:1939 Author Organization [facility] Address [address] [place] [address] Care Team Providers Name Role Phone Kathy Gibson M.D. Primary Care Provider Encounter Details Date Type Department Care Team Description 04/24/2018 Anticoagulation Visit Department of Benji Gibson For Therapeutic Drug Therapy (Primary Dx); Anticoagulation in Noni Valero s Deep Vein Acute Lower Leg Left (HCC); Bruce Mansfield M.D. Half-Way Anticoagulant Treatment [address] [place] [address] [facility] [phone] [place] [address] Social History Tobacco Use Types Packs/Day Years Used Date Smoking Tobacco: Never Smokeless Tobacco: Never Alcohol Use Standard Drinks/Week Comments No 0 (1 standard drink = 0.6 oz pure alcoho l) Sex Assigned at Date Recorded Female 09/25/2017 1:20 PM CDT documented as of this encounter Progress Notes Mónica Knox, R.N. - 04/24/2018 10:30 AM CST Warfarin Maintenance Nursing Protocol Goal Range 2.0-3.0 (version approved 11/25/16) Visit Type: Patient presents for Mamc-ie-Ezwk visit in Anticoagulation Service. Primary reason for visit: Routine f/u OR f/u per previous visit recommendations Information provided by: patient Inclusion Criteria: All inclusion criteria met. Proceeded to exclusion criteria. Exclusion Criteria: No exclusion criteria, proceeded to screening criteria. Screening Criteria: -Patient within first 12 weeks of warfarin therapy: INR out of range. Proceed to maintenance warfarin dosing and follow up for dosing. -Current INR value has changed by = or > 1 since last INR check: NO dose change was made within the last 7 days. Proceeded to maintenance warfarin dosing and follow-up -Patient has had vomiting and/or diarrhea that lasted longer than 24 hours in the last 3 days. Proceeded to maintenance warfarin dosing. Patient to return for follow-up INR in 7-10 days or sooner if indicated by protocol follow-up. Additional info: pt reports diarrhea twice within the last few days. Also had 2 tylenol 2 days ago, which should not affect inr. INR/POC >5.0 Pt sent for INR per venous draw for verification. Tenative plan, pt will hold warfarin today, Once venous draw resulted today I will call her with further instruction. Pt denies bleeding. Denies epistaxis, hematemesis, hemoptysis, hematuria, melana. Reviewed signs/symptoms of bleeding and what to do if this occurs. Pharm consult due to pt within first 12 week, establishing dose. Previous INR was supratherapeutic. 3.1 Today???s INR is Supratherapeutic, Causes: Health change: diarrhea x 2 episodes within the last few days. and New to warfarin, still establishing dose. INR /POC>5.0 Venous draw result 5.1 Dosing and follow up recommendation: INR 5.1-6. Confirmatory draw: yes. MMador- RPh consulted. Dose ordered: Hold warfarin today, decrease weekly dose 25%.. Next INR: within 3 days. Pt on LMWH: No Patient Visit summary provided to: Patient provided with handout of warfarin dosing and next INR appointment. patient repeats back dosing instructions and has no further questions at this time. and patient repeats back dosing instructions and has no further questions at this time. Patient is agreeable to the plan of care . PROJECT MANAGER documented in this encounter Plan of Treatment Not on filedocumented as of this encounter Procedures Procedure Name Priority Date/Time Associated Diagnosis Comme nts PROTHROMBIN TIME Routine 04/24/2018 10:43 Thrombosis Deep Vein Results for this (PT), P AM SAP PROJECT MANAGER Acute Lower Leg Left procedu re are in (HCC) the results Fingerprint Technician section. Anticoagulant Treatment Monitoring For Therapeutic Drug Therapy INR, POCT, B Routine 04/24/2018 10:24 Results for this AM SAP PROJECT MANAGER procedure are i n the results section. documented in this encounter Results (ABNORMAL) PT (Prothrombin Time) with INR (04/24/2018 10:43 AM SAP PROJECT MANAGER) Patholo gist Method Time Signature Prothrombin 57.6 (H) 8.8 - 11.9 04/24/2018 [facility] ER Time, P sec 2:27 PM [facility] INR 5.1 (CH) 0.9 - 1.2 04/24/2018 [facility] ER 2:27 PM [facility] Comment: Standard intensity warfarin therapeutic range: 2.0 to 3.0 High intensity warfarin therapeutic rang e: 2.5 to 3.5 Results repeated. Specimen Anatomical Collection Method Collection Time Receive d Time (Source) Location / / Volume Laterality Blood (Blood, 04/24/2018 10:43 04/24/2018 1:02 Venous) AM SAP PROJECT MANAGER PM SAP PROJECT MANAGER Kathy Gibson M.D. LAB BLOOD ADD-ON Performing Organization Address City/[facility]/ZIP Code Phon e Number [facility] [employer] [address] [place] [address] LAB (ABNORMAL) INR, POCT (04/24/2018 10:24 AM SAP PROJECT MANAGER) P athologist Signature INR, POCT, B >5.0 (CH) 04/24/2018 [facility] ER 10:24 AM [facility] Comment: ----ADDITIONAL INFORMATION---- Standard intensity warfarin therapeutic range: 2.0 to 3.0 ?? High intensity warfarin therapeutic rang e: 2.5 to 3.5 Specimen Anatomical Collection Method Collection Time Receive d Time (Source) Location / / Volume Laterality 04/24/2018 10:24 04/24/2018 AM SAP PROJECT MANAGER 10:25 AM SAP PROJECT MANAGER Generic Rals LAB POCT ORDERABLES - DEVICE Performing Organization Address City/[facility]/ZIP [facility] Phon e Number [facility] Tooling [facility] [address] [facility] [place] [address] LAB documented in this encounter Visit Diagnoses Diagnosis Monitoring For Therapeutic Drug Therapy - Primary Thrombosis Deep Vein Acute Lower Leg Lef t (HCC) Half-Way (Current) Anticoagulant Treatm ent documented in this encounter Care Teams Lead Software Tester Relationship Specialty Start Date End Date Kathy Gibson M.D. PCP - General Family Medicine 12/15/17 02/24/19 documented as of this encounter
--- OUTSIDE RECORDS SUMMARY | 2022-02-28 01:40 | XMS_ITS | Encounter Summary ---
:1940 Author Organization [facility] Address [address] [place] [address] Care Team Providers Name Role Phone Kathy Gibson M.D. Primary Care Provider Encounter Details Date Type Department Care Team Description 05/09/2018 Anticoagulation Visit Department of Yonas Gibson Deep Vein Acute Lower Leg Left (HCC); Anticoagulation in Kathy Shea, Director Market Intelligence Anticoagulant Treatment; Bruce Mansfield M.D. Monitoring For Therapeutic Drug Therapy [address] [facility] [id number] [place], [place] [address] Social History Tobacco Use Types Packs/Day Years Used Date Smoking Tobacco: Never Smokeless Tobacco: Never Alcohol Use Standard Drinks/Week Comments No 0 (1 standard drink = 0.6 oz pure alcoho l) Sex Assigned at Date Recorded Female 09/25/2017 1:20 PM CDT documented as of this encounter Progress Notes Rosemary Aldridge R.N. - 05/09/2018 9:30 AM CST Warfarin Maintenance Nursing Protocol Goal Range 2.0-3.0 (version approved 11/25/16) Visit Type: Patient presents for Wthh-tv-Jnmr visit in Anticoagulation Service. Primary reason for [...] not apply. Provider input required. Additional info: Diarrhea has improved, Pt thinks the oranges she was eating had caused that. Previous INR was supratherapeutic. Today???s INR is Subtherapeutic, Causes: New to warfarin, still establishing dose. Dosing and follow up recommendation: INR 1.8-1.9 S. Kary-RPh consulted. Dose ordered: 7.5mg Mon, , Sat, 5 mg Mon, Mon, recheck Mon. Next INR: 5 days per PharmD/Rph consulted Pt on LMWH: No Patient Visit summary provided to: Patient provided with handout of warfarin dosing and next INR appointment. patient repeats back dosing instructions and has no further questions at this time. Patient is agreeable to the plan of care ,yes documented in this encounter Plan of Treatment Not on filedocumented as of this encounter Procedures Procedure Name Priority Date/Time Associated Diagnosis Comme nts INR, POCT, B Routine 05/09/2018 9:21 AM Results f or this PSYCH THERAPIST procedure are i n the results section . documented in this encounter Results INR, POCT (05/09/2018 9:21 AM PSYCH THERAPIST) P athologist Signature INR, POCT, B 1.9 05/09/2018 [facility] 9:21 AM [facility]Out[facility] Water SolutionsAD[facility] Comment: ----ADDITIONAL INFORMATION---- Standard intensity warfarin therapeutic range: 2.0 to 3.0 ?? High intensity warfarin therapeutic rang e: 2.5 to 3.5 Specimen Anatomical Collection Method Collection Time Receive d Time (Source) Location / / Volume Laterality 05/09/2018 9:21 AM 9 9:23 PSYCH THERAPIST AM PSYCH THERAPIST Generic Rals LAB POCT ORDERABLES - DEVICE Performing Organization Address City/State/ZIP Code Phon e Number [facility] [employer] [address] [place] [address] LAB documented in this encounter Visit Diagnoses Diagnosis Thrombosis Deep Vein Acute Lower Leg Lef t (HCC) Director Market Intelligence (Current) Anticoagulant Treatm ent Monitoring For Therapeutic Drug Therapy documented in this encounter Care Teams Electrical Tester Relationship Specialty Start Date End Date Kathy Gibson M.D. PCP - General Family Medicine 12/15/17 02/24/19 documented as of this encounter
--- OUTSIDE RECORDS SUMMARY | 2022-02-28 01:40 | XMS_ITS | Encounter Summary ---
:1940 Author Organization [facility] Address [address] [place] [address] Care Team Providers Name Role Phone Kathy Gibson M.D. Primary Care Provider Encounter Details Date Type Department Care Team Description 05/02/2018 Clinical Communication Department of Bibi Murray, MedicineShyla M.D. [facility], in [address] [phone] (Work) [phone] Social History Tobacco Use Types Packs/Day Years [...] on filedocumented in this encounter Care Teams Business Analysis Professional Relationship Specialty Start Date End Date Kathy Gibson M.D. PCP - General Family Medicine 12/15/17 02/24/19 documented as of this encounter
--- OUTSIDE RECORDS SUMMARY | 2022-02-28 01:40 | XMS_ITS | Encounter Summary ---
:[address] [facility] Address [address] [place] [address] Care Team Providers Name Role Phone Kathy Gibson M.D. Primary Care Provider Reason for Visit Reason Onset Date Comments q 05/02/2018 Question Encounter Details Date Type Department Care Team Description 05/02/2018 Clinical Communication Department of [facility] Negro Escalante (Question) Medicine, Shyla Love APRN, C.N .P. [facility], in [address] [address] [place], [place] [phone] (Work) [phone] Social History Tobacco Use Types Packs/Day Years Used Date Smoking Tobacco: Never Smokeless Tobacco: Never Alcohol Use Standard Drinks/Week Comments No 0 (1 standard drink = 0.6 oz pure alcoho l) Sex Assigned at Date Recorded Female 09/25/2017 1:20 PM CDT documented as of this encounter Miscellaneous Notes Telephone Encounter - Soheila Vides L.PReginaNRegina - 05/04/2018 8:28 AM CST Pt notified and she will call to set up appt with Verónica Escalante. R WINDER Telephone Encounter - Verónica Escalante APRN, C.N.PRegina - 05/03/2018 3:03 PM PAPER WINDER We can wait on the ultrasound if that works better for her. If she is having any other urinary tractinfections or other issues, we would want to get the renal ultrasound done. We can talk about it further at her appointment. R WINDER Telephone Encounter - Priti Cintron R.N. - 05/02/2018 11:08 AM CST Forwarding to Provider Ava to review and advise. R WINDER Telephone Encounter - Eun Simon - 05/02/2018 10:41 AM CST Patient is wondering if she can just see Verónica in May and not do the Ultrasound at this time due to cost, she has been having to do a lot of lab work at this time, please advise and call her. R WINDER documented in this encounter Plan of Treatment Not on filedocumented as of this encounter Visit Diagnoses Not on filedocumented in this encounter Care Teams Business Process Consultant Relationship Specialty Start Date End Date Kathy Gibson M.D. PCP - General Family Medicine 12/15/17 02/24/19 documented as of this encounter
--- OUTSIDE RECORDS SUMMARY | 2022-02-28 01:40 | XMS_ITS | Encounter Summary ---
:1940 Author Organization [facility] Address [address] [place] [address] Care Team Providers Name Role Phone Kathy Gibson M.D. Primary Care Provider Reason for Visit Reason Onset Date Comments medication alternative needed, cannot take one that was pres 05/02/2018 Encounter Details Date Type Department Care Team Description 05/02/2018 Clinical Communication Department of Kathy Gibson [facility] Family MedicineMonse M.D. alternative needed, [facility], in [address] [place] [address] Av e cannot take one [place], [place] that was pres [address] [address] [place], [place] [phone] (Work) [phone] Social History Tobacco Use Types Packs/Day Years Used Date Smoking Tobacco: Never Smokeless Tobacco: Never Alcohol Use Standard Drinks/Week Comments No 0 (1 standard drink = 0.6 oz pure alcoho l) Sex Assigned at Date Recorded Female 09/25/2017 1:20 PM CDT documented as of this encounter Miscellaneous Notes Telephone Encounter - Jacquelin Rossi L.P.N. - 05/03/2018 9:46 AM OIL BURNER SUBJECTIVE CHIEF COMPLAINT / REASON FOR CALL medication alternative needed, cannot take one that was pres INFORMATION DISCUSSED: Notified of Dr. Gibson's recommendations. PLAN Disposition/Recommendation: NA Information: patient/caller able to repeat back in their own words Caller agreeable to plan of care: yes The following references were used: provider Dr. Gibson BURNER Telephone Encounter - Kathy Gibson M.D. - 05/03/2018 9:19 AM CST We will discontinue the clonidine and update her allergy/sensitivity records. Options are limited secondary to her kidney disease. Therefore we will give trial to increasing the diltiazem. She should take the new dose only. She should not take both diltiazem tablets together only the new diltiazem CD 300 mg tablet orally once each day. Follow-up as planned. BURNER Telephone Encounter - Nidhi Skelton L.P.N. - 05/03/2018 9:07 AM CST SUBJECTIVE CHIEF COMPLAINT / REASON FOR CALL medication alternative needed, cannot take one that was pres Patient is requesting the following information: Wants Clonidine changed to something different PLAN The following information was provided : Pharmacist states that when patient came to the pharmacy to diamond picker the medication she stated that she has been on Clonidine in the past and it caused her to hallucinate. Patient refused to take the medication and states it needs to be changed to something different. Please advise. Information: patient/caller able to repeat back in their own words The following references were used: other Pharmacist BURNER Telephone Encounter - Pat Schmid - 05/03/2018 8:48 AM CST Reason for Communication: Patient called and said she went to pharmacy yesterday and the rx prescribed is one she cannot take. She needs something different Current Can Nursing/Provider leave a detailed message: yes Did the patient refuse triage through Nurse line? (for symptom based concerns) Action Needed: Name of Medication (if relevant): Colnidine BURNER Telephone Encounter - Madison Chavez - 05/02/2018 4:00 PM CST Reason for Communication: [facility] calling concerning a Rx ordered today with a drug interaction with another medication Current Phone Number: rob- [phone] Can Nursing/Provider leave a detailed message: yes Did the patient refuse triage through Nurse line? (for symptom based concerns) Action Needed: Please call Name of Medication (if relevant): Colnidine BURNER documented in this encounter Plan of Treatment Not on filedocumented as of this encounter Visit Diagnoses Not on filedocumented in this encounter Care Teams Ic Designer Custom Relationship Specialty Start Date End Date Kathy Gibson M.D. PCP - General Family Medicine 12/15/17 02/24/19 documented as of this encounter
--- OUTSIDE RECORDS SUMMARY | 2022-02-28 01:40 | XMS_ITS | Encounter Summary ---
:1939 Author Organization [facility] Address [address] [place] [address] Care Team Providers Name Role Phone Kathy Gibson M.D. Primary Care Provider Encounter Details Date Type Department Care Team Description 03/29/2018 Abstract [facility] THOMAS Aguayo ea Provider, Historical [address] [place] [address] Social History Tobacco Use Types Packs/Day [...] on filedocumented in this encounter Care Teams Explosive Operator Bomb Relationship Specialty Start Date End Date Kathy Gibson M.D. PCP - General Family Medicine 12/15/17 02/24/19 documented as of this encounter
--- OUTSIDE RECORDS SUMMARY | 2022-02-28 01:40 | XMS_ITS | Encounter Summary ---
:1940 Author Organization [facility] Address [address] [place] [address] Care Team Providers Name Role Phone Kathy Gibson M.D. Primary Care Provider Encounter Details Date Type Department Care Team Description 05/03/2018 Orders Only Department of Family Stacey Gibson M.D. Medicine, [facility], [address] [place] [address] [address] [facility] [place] [address] [phone] Social History Tobacco Use Types Packs/Day Years [...] filedocumented in this encounter Care Teams Senior Applications Architect Relationship Specialty Start Date End Date Kathy Gibson M.D. PCP - General Family Medicine 12/15/17 02/24/19 documented as of this encounter
--- OUTSIDE RECORDS SUMMARY | 2022-02-28 01:40 | XMS_ITS | Encounter Summary ---
:1940 Author Organization [facility] Address [address] [place] [address] Care Team Providers Name Role Phone Kathy Gibson M.D. Primary Care Provider Reason for Visit Reason Onset Date Comments returning your call 03/28/2018 Encounter Details Date Type Department Care Team Description 03/28/2018 Clinical Communication Department of Kathy Gibson ret urning your call Family MedicineMonse M.D. [facility], in [address] [place] [phone] [place] [address] [phone] (Work) [phone] Social History Tobacco Use Types Packs/Day Years Used Date Smoking Tobacco: Never Smokeless Tobacco: Never Alcohol Use Standard Drinks/Week Comments No 0 (1 standard drink = 0.6 oz pure alcoho l) Sex Assigned at Date Recorded Female 09/25/2017 1:20 PM CDT documented as of this encounter Miscellaneous Notes Telephone Encounter - Jacquelin Rossi, L.P.N. - 03/28/2018 5:19 PM BUSINESS INTELLIGENCE CONSULTANT SUBJECTIVE CHIEF COMPLAINT / REASON FOR CALL returning your call Patient is requesting the following information: Returning call PLAN The following information was provided : Notified that no one from Dr. Gibson's office tried to call her. She will keep her appointment on 03-29-[address] Gibson as planned. Information: patient/caller able to repeat back in their own words The following references were used: provider Dr. Gibson NESS INTELLIGENCE CONSULTANT Telephone Encounter - Pat Schmid - 03/28/2018 12:16 PM CST Reason for Communication: Patient called, returning your call, she thought it was from a Jaelyn. Pt is aware she has a post hosp appt tomorrow. She thought the hospital said she would have an INR appt also but none is scheduled for tomorrow. Current Can Nursing/Provider leave a detailed message: no Did the patient refuse triage through Nurse line? (for symptom based concerns)NA Action Needed: please call again Name of Medication (if relevant): NA NESS INTELLIGENCE CONSULTANT documented in this encounter Plan of Treatment Not on filedocumented as of this encounter Visit Diagnoses Not on filedocumented in this encounter Care Teams Rail Car Painter/Sandblaster Relationship Specialty Start Date End Date Kathy Gibson M.D. PCP - General Family Medicine 12/15/17 02/24/19 documented as of this encounter
--- OUTSIDE RECORDS SUMMARY | 2022-02-28 01:40 | XMS_ITS | Encounter Summary ---
:1940 Author Organization [facility] Address [address] [place] [address] Care Team Providers Name Role Phone Kathy Gibson M.D. Primary Care Provider Reason for Referral Outpatient (Routine) - Closed Specialty Diagnoses / Referred By Contact Referred To Contact Procedures Hematology / Diagnoses Thrombosis Deep Vein Acute Lower Leg Left (HCC) Kathy Gibson Anticoagulation M.D. [address] [place] [address] Referral ID Status Reason Start Date Expiration Date Visits V isits Requested Authorized [id number] Closed Specialty 03/29/2018 03/29/2019 1 1 Services Required RETE SWIMMING POOL INSTALLER Reason for Visit Reason Comments Post Hospital Follow-up Encounter Details Date Type Department Care Team Description 03/29/2018 Office Visit Department of [employer] Kathy Gibson, Hyp ertension And Chronic Kidney Disease Stage 3 (HCC) (Primary Dx); MedicineShyla M.D. Diabetes Mellitus Type 2 ([facility]); Clinic, in [address] [facility] Primary Osteoarthritis Knee Right; [place], [place] Retention Urinary; [address] [address] Varicose Vein Lower Extremity Bilateral; [place], [place] [phone] Presence Of Ri ght Artificial Knee Joint; [phone] (Work) Obesity Body Mass Index 30-39.9 Adult; [phone] Arthroplasty To cassie Knee Replacement Status Post Left; (Fax) Gastroesophagea l Reflux Disease; Arthritis Rheum atoid (HCC); Cellulitis Leg Left; Thrombosis Deep Vein Acute Lower Leg Left (HCC) Social History Tobacco Use Types Packs/Day Years Used Date Smoking Tobacco: Never Smokeless Tobacco: Never Alcohol Use Standard Drinks/Week Comments No 0 (1 standard drink = 0.6 oz pure alcoho l) Sex Assigned at Date Recorded Female 09/25/2017 1:20 PM CDT documented as of this encounter Last Filed Vital Signs Vital Sign Reading Time Taken Comments Blood Pressure 156/68 03/29/2018 10:05 AM CONCRETE SWIMMING POOL INSTALLER Pulse 80 03/29/2018 10:01 AM CONCRETE SWIMMING POOL INSTALLER Temperature 36.3 ??C (97.3 ??F) 03/29/2018 10:01 AM CONCRETE SWIMMING POOL INSTALLER Respiratory Rate 16 03/29/2018 10:01 AM CONCRETE SWIMMING POOL INSTALLER Oxygen Saturation - - Inhaled Oxygen Concentration - - Weight 78.4 kg (172 lb 15.2 oz) 03/29/2018 10:01 AM CONCRETE SWIMMING POOL INSTALLER Height - - Body Mass Index 30.84 01/11/2018 10:23 AM CDT documented in this encounter Progress Notes Kathy Gibson M.D. - 03/29/2018 10:15 AM CST CHIEF COMPLAINT/REASON FOR VISIT Hospital follow-up HISTORY OF PRESENT ILLNESS This 77-year old female presents to clinic secondary to hospital follow-up. She was hospitalized at the [facility] 03/24/2018 through 03/26/2018 secondary to a cellulitis complicated by a DVT.Further discussion reveals she had fall, slipping on the ice about 2 weeks prior to her hospitalization. She was started on Lovenox and is in process of transitioning to warfarin for empiric treatment for a duration to be determined today. She has been holding her aspirin. She is seeing her mixing tank operator Dr. Nunez on a regular basis and has an appointment scheduled for 05/02/2018. Her prednisoneis being adjusted and she is currently taking 8 mg each day. She is tolerating the Augmentin which was prescribed for the cellulitis but she does feel a bit nauseated. While her cellulitis is healing she has had a bit peeling of the skin and has been applying some of anal lotion on a near daily basis.She does have some skin breakdown at the site of a formal biopsy of 20 years ago. This area is demarc ated with a skin pen line. She has a daily bowel regimen with no loose stools. Her her oral intake is adequate but decreased from her baseline. She is not short of breath. She is having no palpitations. She is taking her other medications as prescribed. EMR reviewed. CURRENT MEDICATIONS Current Outpatient Prescriptions: ??? amoxicillin-pot clavulanate (AUGMENTIN) 875-125 mg per tablet, , Disp: , Rfl: 0 ??? CALCIUM CARB/VIT D3/MINERALS (CALCIUM-VITAMIN D ORAL), [...] 0 ??? warfarin (COUMADIN) 2.5 mg tablet, , Disp: , Rfl: 0 ??? predniSONE (DELTASONE) 1 mg tablet, , Disp: , Rfl: 0 Allergies Allergen Reactions ??? Leflunomide [...] secondary to stated age Colon screen 11/19/[address] Dominguez low risk, currently declining [...] clot. ??? No Known Problems Son Vitals: 03/29/18 1001 03/29/18 1005 BP: (!) 170/76 156/68 Patient Position: Sitting Sitting Pulse: 80 Temp: 36.3 ??C Resp: 16 Weight: 78.4 kg TempSrc: Temporal Repeat blood pressure 156/68 blood pressure was stable during her recent hospitalization. PHYSICAL EXAM General: Neatly dressed well groomed. [...] nontender, bowel sounds present, no organomegaly. Extremities: Erythema with peeling of the skin of the left lower extremity with some dried eschar inthe medial aspect of the left ankle at the former biopsy site demarcated with a skin pen about 4 x 2in in diameter. Neuro: Gait slow but steady. ASSESSMENT/PLAN 1. Cellulitis with treatment in process superimposed on a wound infection 2. DVT of the left lower leg with anticoagulation in process 3. Primary osteoarthritis multiple sites aggravating above health issues 4. Diabetes mellitus type 2 currently stable 5. Hypertension superimposed on chronic renal disease stage III with flare today but in recent past has been stable 6. Urinary retention currently stable 7. Varicose veins at baseline 8. 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 Rheumatoid arthritis steroid dependent with treatment in process 10. Obesity-progressive 11. GERD aggravated by antibiotic treatment Supportive measures discussed in detail. Reviewed her recent hospitalized record in detail. Will arrange for follow-up in the INR clinic in and appointment is arranged for later today. Anticipate treatment with warfarin for 3-6 months. Will reassess the DVT status in about 3 months to determine whether not a 6 month treatment course would be appropriate. Will recheck the wound and reassess blood pressure in about 1 week. May need to see local hub inventory specialist if wound does not resolve in expected fashion. Continue on her current medication regimen in the interim. Risks and benefits of medications discussed. All questions answered. Signs and symptoms to lead to emergent evaluation are reviewed. Seethe medication reconciliation and preventive services. She will consider her options. Spent 20 of the 35 minute visit in discussion. RETE SWIMMING POOL INSTALLER documented in this encounter Plan of Treatment Scheduled Referrals Name Type Priority Associated Order Schedule Diagnoses Anticoagulation Outpatient Routine Thrombosis Deep Ordered: monitoring consult Referral Vein Acute Lower 03/29 (clinic) Leg Left (HCC) documented as of this encounter Visit Diagnoses Diagnosis Hypertension And Chronic Kidney Disease Stage 3 (HCC) - Primary Diabetes Mellitus Type 2 (HCC) Primary Osteoarthritis Knee Right Retention Urinary Varicose Vein Lower Extremity Bilateral Presence Of Right Artificial Knee Joint Obesity Body Mass Index 30-39.9 Adult Arthroplasty Total Knee Replacement Stat us Post Left Gastroesophageal Reflux Disease Arthritis Rheumatoid (HCC) Cellulitis Leg Left Thrombosis Deep Vein Acute Lower Leg Lef t (HCC) documented in this encounter Care Teams Supervisor Rough End Relationship Specialty Start Date End Date Kathy Gibson M.D. PCP - General Family Medicine 12/15/17 02/24/19 documented as of this encounter
--- OUTSIDE RECORDS SUMMARY | 2022-02-28 01:40 | XMS_ITS | Encounter Summary ---
:1940 Author Organization [facility] Address [address] [place] [address] Care Team Providers Name Role Phone Kathy Gibson M.D. Primary Care Provider Encounter Details Date Type Department Care Team Description 05/02/2018 Anticoagulation Visit Department of Yonas Gibson Deep Vein Acute Lower Leg Left (HCC); Anticoagulation in Kathy Shea, Consulting Business Developer Anticoagulant Treatment; Bruce Mansfield M.D. Monitoring For Therapeutic Drug Therapy [address] 200 [facility] [place] [facility] [address] [facility] [phone] [place] [address] Social History Tobacco Use Types Packs/Day Years Used Date Smoking Tobacco: Never Smokeless Tobacco: Never Alcohol Use Standard Drinks/Week Comments No 0 (1 standard drink = 0.6 oz pure alcoho l) Sex Assigned at Date Recorded Female 09/25/2017 1:20 PM CDT documented as of this encounter Progress Notes Mónica Knox, ReRginaN. - 05/02/2018 11:15 AM CST Warfarin Maintenance Nursing Protocol Goal Range 2.0-3.0 (version approved 11/25/16) Visit Type: Patient presents for Tduj-iv-Zfse visit in Anticoagulation Service. Primary reason for visit: Routine f/u OR f/u per previous visit recommendations Information provided by: patient Inclusion Criteria: All inclusion criteria met. Proceeded to exclusion criteria. Exclusion Criteria: No exclusion criteria, proceeded to screening criteria. Screening Criteria: -Patient within first 12 weeks of warfarin therapy: INR out of range. Proceed to maintenance warfarin dosing and follow up for dosing. -Patient has had vomiting and/or diarrhea that lasted longer than 24 hours in the last 3 days. Proceeded to maintenance warfarin dosing. Patient to return for follow-up INR in 7-10 days or sooner if indicated by protocol follow-up. Additional info: diarrhea x 1 episode yesterday. Pt denies bleeding. Previous INR was supratherapeutic.3.1 Today???s INR is 3.5 Supratherapeutic, Causes: Health change: diarrhea x 1.and establishing weekly dose Dosing and follow up recommendation: INR 3.3-3.5 Third (or more) consecutive INR above goal range. MMador-RPh consulted. Dose ordered: warfarin 7.5mg Mon and 5mg all the other days of week. .. Next INR: 7 days per PharmD/Rph consult. 42.5mg/last 7 days. Decrease 10% =37.5mg/week Pt on LMWH: No Patient Visit summary provided to: Patient provided with handout of warfarin dosing and next INR appointment. patient repeats back dosing instructions and has no further questions at this time. Patient is agreeable to the plan of care . SUBJECTIVE CHIEF COMPLAINT / REASON FOR CALL No chief complaint on file. INFORMATION DISCUSSED S - Pt reports she forgot to tell PCP about recent hallucinations she has had. B - Pt had visit with PCP today. States she forgot to tell Dr Gibson about recent hallucinations she has had at [facility]. PLAN Disposition/Recommendation: instructed pt to contact PCP and report this information today to her. Education: patient/caller able to teach back Caller agreeable to plan of care: yes The following references were used: nursing clinical judgement TORIAL ACCOUNT MANAGER documented in this encounter Plan of Treatment Not on filedocumented as of this encounter Procedures Procedure Name Priority Date/Time Associated Diagnosis Comme nts INR, POCT, B Routine 05/02/2018 10:51 AM Results for this JANITORIAL ACCOUNT MANAGER procedure are i n the results section . documented in this encounter Results INR, POCT (05/02/2018 10:51 AM JANITORIAL ACCOUNT MANAGER) P athologist Signature INR, POCT, B 3.5 05/02/2018 [facility] 10:51 AM [facility] Comment: ----ADDITIONAL INFORMATION---- Standard intensity warfarin therapeutic range: 2.0 to 3.0 ?? High intensity warfarin therapeutic rang e: 2.5 to 3.5 Specimen Anatomical Collection Method Collection Time Receive d Time (Source) Location / / Volume Laterality 05/02/2018 10:51 05/02/2018 AM JANITORIAL ACCOUNT MANAGER 10:53 AM JANITORIAL ACCOUNT MANAGER Generic [facility] POCT ORDERABLES - DEVICE Performing Organization Address City/State/ZIP Code Phon e Number [facility] [address] [place] [address] LAB documented in this encounter Visit Diagnoses Diagnosis Thrombosis Deep Vein Acute Lower Leg Lef t (HCC) Consulting Business Developer (Current) Anticoagulant Treatm ent Monitoring For Therapeutic Drug Therapy documented in this encounter Care Teams Behavioral Health Assistant Relationship Specialty Start Date End Date Kathy Gibson M.D. PCP - General Family Medicine 12/15/17 02/24/19 documented as of this encounter
--- OUTSIDE RECORDS SUMMARY | 2022-02-28 01:40 | XMS_ITS | Encounter Summary ---
:1940 Author Organization [facility] Address [address] [place] [address] Care Team Providers Name Role Phone Kathy Gibson M.D. Primary Care Provider Encounter Details Date Type Department Care Team Description 03/29/2018 Anticoagulation Visit Department of Benji Gibson For Therapeutic Drug Therapy (Primary Dx); Anticoagulation in Noni Valero Deep Vein Acute Lower Leg Left (HCC); Bruce Mansfield M.D. Custodial Anticoagulant Treatment [address] [place] [address] [facility] [phone] [place] [address] Social History Tobacco Use Types Packs/Day Years Used Date Smoking Tobacco: Never Smokeless Tobacco: Never Alcohol Use Standard Drinks/Week Comments No 0 (1 standard drink = 0.6 oz pure alcoho l) Sex Assigned at Date Recorded Female 09/25/2017 1:20 PM CDT documented as of this encounter Progress Notes Mónica Knox, R.N. - 03/29/2018 1:45 PM CST Warfarin Initiation Nursing Protocol Goal Range 2.0-3.0 (version approved 11/25/16) Visit Type: Patient presents for Olde-ek-Jxsk visit in Anticoagulation Service. Primary reason for visit: Post-hospital: Patient hospitalized from 03/24/18 to 03/26/18 for diagnosis of DVT LLE, cellulitis, wound infection. Information provided by: patient and friend Today is Day 4 warfarin initiation. . Inclusion Criteria: All inclusion criteria met. Proceeded to exclusion criteria. Exclusion Criteria: No exclusion criteria, proceed to screening criteria Screening Criteria: One or more screening criteria positive: Follow instructions of positive screening criteria: -[facility] Additional info: Warfarin initiated on 03/26/18 Baseline INR result was 1.1 Diet: reviewed food intake and vit k content affect on inr's. Need for consistency Patient has warfarin and confirms strength 2.5 mg and green color. Current Outpatient Medications Medication Sig ??? amoxicillin-pot clavulanate (AUGMENTIN) 875-125 mg per tablet ??? CALCIUM CARB/VIT D3/MINERALS (CALCIUM-VITAMIN D ORAL) Take 1 tablet by mouth daily. ??? dilTIAZem CD (for_CARDIZEM CD/CARTIA XT) 240 mg 24 hr capsule Take 1 capsule (240 mg total) by mouth every morning. ??? furosemide (LASIX) 40 mg tablet Take 1 tablet (40 mg total) by mouth daily. ??? hydroxychloroquine (PLAQUENIL) 200 mg tablet ??? MULTIVITAMIN ORAL Take 1 tablet by mouth daily. ??? predniSONE (DELTASONE) 1 mg tablet ??? predniSONE (DELTASONE) 5 mg tablet Start [...] tablets) daily in November . ) ??? raNITIdine (ZANTAC) 150 mg tablet Take 1 tablet (150 mg total) by mouth 2 (two) times a day. ??? warfarin (COUMADIN) 2.5 mg tablet Previous INR was subtherapeutic. Baseline inr 1.1 on 03/26/18 Today???s INR is 1.3 Subtherapeutic, Causes: New to warfarin, still establishing dose. Dosing and follow up recommendation: 1.2-1.5 Repeat starting dose until next INR check 2-4 days ?? 5mg daily. Continue with enoxaparin 70mg every 12 hour subq. Pt was given 80mg syringes and expelling 10mg to equal 70mg medication/injection. This was reordered and pt instructed to continue with this plan. Recheck 4 days- 04/02/18 Patient Visit summary provided to: Patient provided with handout of warfarin dosing and next INR appointment. patient and caregiver repeats back dosing instructions and has no further questions at thistime. and Other careproviders involved: patient and caregiver Patient is agreeable to the plan of care. D CROP GROWER documented in this encounter Plan of Treatment Not on filedocumented as of this encounter Procedures Procedure Name Priority Date/Time Associated Diagnosis Comme nts INR, POCT, B Routine 03/29/2018 1:39 PM Results f or this FIELD CROP GROWER procedure are i n the results section . documented in this encounter Results INR, POCT (03/29/2018 1:39 PM FIELD CROP GROWER) P athologist Signature INR, POCT, B 1.3 03/29/2018 [facility] 1:39 PM FIELD CROP GROWER [facility] Comment: ----ADDITIONAL INFORMATION---- Standard intensity warfarin therapeutic range: 2.0 to 3.0 ?? High intensity warfarin therapeutic rang e: 2.5 to 3.5 Specimen Anatomical Collection Method Collection Time Receive d Time (Source) Location / / Volume Laterality 03/29/2018 1:39 PM 9 1:44 FIELD CROP GROWER PM FIELD CROP GROWER Generic [facility] POCT ORDERABLES - DEVICE Performing Organization Address City/State/ZIP Code Phon e Number [facility] [employer] [address] [place] [address] LAB documented in this encounter Visit Diagnoses Diagnosis Monitoring For Therapeutic Drug Therapy - Primary Thrombosis Deep Vein Acute Lower Leg Lef t (HCC) Insole Coverer (Current) Anticoagulant Treatm ent documented in this encounter Care Teams Optometrist Relationship Specialty Start Date End Date Kathy Gibson M.D. PCP - General Family Medicine 12/15/17 02/24/19 documented as of this encounter
--- OUTSIDE RECORDS SUMMARY | 2022-02-28 01:40 | XMS_ITS | Encounter Summary ---
:1940 Author Organization [facility] Address [address] [place] [address] Care Team Providers Name Role Phone Kathy Gibson M.D. Primary Care Provider Reason for Visit Reason Comments Follow-up post hospital, urinary tract infection, self cath 3-4/daily Outpatient (Routine) - Closed Specialty Diagnoses / Procedures Referred By Contact Refer red To Contact Urology Diagnoses Retention Urinary Infection Urinary Tract Recurrent Kathy Gibson M.D. [facility] [address] [place] [address] Referral ID Status Reason Start Date Expiration Date Visits Requ ested Visits Authorized [id number] Closed 02/07/2018 02/07/2019 1 1 Encounter Details Date Type Department Care Team Description 02/19/2018 Comprehensive Visit Department of Juan Gibson M.D. [address] [place] [address] Retention Urinary (Primary Dx); Urology in Verónica Escalante APRN, C.N.P. [address] [place] [phone] Infection Urinary Tract Recurrent [place], [place] [address] [place] [phone] Social History Tobacco Use Types Packs/Day Years Used Date Smoking Tobacco: Never Smokeless Tobacco: Never Alcohol Use Standard Drinks/Week Comments No 0 (1 standard drink = 0.6 oz pure alcoho l) Sex Assigned at Date Recorded Female 09/25/2017 1:20 PM CDT documented as of this encounter Last Filed Vital Signs Vital Sign Reading Time Taken Comments Blood Pressure 140/64 02/19/2018 2:09 PM MEAL ROOM HAND Pulse - - Temperature 36.6 ??C (97.9 ??F) 02/19/2018 2:09 PM MEAL ROOM HAND Respiratory Rate - - Oxygen Saturation - - Inhaled Oxygen Concentration - - Weight - - Height - - Body Mass Index - - documented in this encounter Progress Notes Verónica Escalante, LARS, C.N.P. - 02/19/2018 2:30 PM CST SUBJECTIVE CHIEF COMPLAINT/REASON FOR VISIT Chief Complaint Patient presents with ??? Follow-up post hospital, urinary tract infection, self cath 3-4/daily HISTORY OF PRESENT ILLNESS Zoe is a pleasant 69-year-old female here today with her significant other for a follow-up after hospitalization. She was recently hospitalized and had elevated white count, urinary tract infection, and lactate elevation. She has been feeling much better and completed a prescription for Duricef 500 mg oral tablet, twice daily for 7 days. She has been cathing 3 times per day with volumes of 400-700 mL each time. She typically only voids 50-150 mL. Last night she cathed 800 at bedtime and 700 mL when she woke up this morning. She has an InterStim that she would like checked today as well. The following portions of the patient's history were reviewed and updated as appropriate: allergies,current medications, family history, medical history, social history, surgical history and problem list. REVIEW OF SYSTEMS Gastrointestinal: Negative for constipation and diarrhea. Genitourinary: Positive for difficulty urinating. Negative for incontinence, pain with urination, hematuria, urgency and frequent urination. OBJECTIVE Vitals: 02/19/18 1409 BP: 140/64 Patient Position: Sitting Temp: 36.6 ??C TempSrc: Temporal PHYSICAL EXAM Vitals and [...] non-distended Extremities: Warm, without edema or ulcerations. 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 This was turned back onprogram 3 at 1.8 and she was able to feel stimulation. She will continue to intermittent catheterization 3-5 times daily, she has adequate supplies of catheters. If she has any signs or symptoms of Urinary Tract Infection, she will contact us. We will see her again in approximately 3 months, she will have a renal ultrasound prior to that visit. If she has any other questions or concerns prior to thattime, she will contact us. Signed by: Verónica Escalante APRN, C.N.P. 02/19/2018 2:16 PM ROOM HAND documented in this encounter Plan of Treatment Not on filedocumented as of this encounter Visit Diagnoses Diagnosis Retention Urinary - Primary Infection Urinary Tract Recurrent documented in this encounter Care Teams Shop Fitter Relationship Specialty Start Date End Date Kathy Gibson M.D. PCP - General Family Medicine 12/15/17 02/24/19 documented as of this encounter
--- OUTSIDE RECORDS SUMMARY | 2022-02-28 01:40 | XMS_ITS | Encounter Summary ---
:1940 Author Organization [facility] Address [address] [place] [address] Care Team Providers Name Role Phone Kathy Gibson M.D. Primary Care Provider Encounter Details Date Type Department Care Team Description 04/27/2018 Anticoagulation Visit Department of Yonas Gibson Deep Vein Acute Lower Leg Left (HCC); Anticoagulation in Kathy Shea, Assisted Anticoagulant Treatment; Bruce Mansfield M.D. Monitoring For Therapeutic Drug Therapy [address] [facility] [address] [facility] [phone] [place] [address] Social History Tobacco Use Types Packs/Day Years Used Date Smoking Tobacco: Never Smokeless Tobacco: Never Alcohol Use Standard Drinks/Week Comments No 0 (1 standard drink = 0.6 oz pure alcoho l) Sex Assigned at Date Recorded Female 09/25/2017 1:20 PM CDT documented as of this encounter Progress Notes Mónica Knox, RReginaN. - 04/27/2018 10:30 AM CST Warfarin Maintenance Nursing Protocol Goal Range 2.0-3.0 (version approved 11/25/16) Visit Type: Patient presents for Kowa-vk-Npvm visit in Anticoagulation Service. Primary reason for [...] not apply. Provider input required. Additional info: - Pt denies bleeding. previous inr of >5.0 due to diarrhea x 2 episodes and fairly new pt/establishing weekly dose. Would like to decrease weekly dose 10% . Warfarin 5mg Mon,Sat and 7.5mg all the other days of week. Recheck 5 days(pt in clinic for pcp visit) Previous INR was supratherapeutic.5.1 Today???s INR is 3.1 Supratherapeutic, Causes: pt has been taking warfarin x a month, establishing weekly dose. . Dosing and follow up recommendation: INR 3.1-3.2 MMador-RPh consulted. Dose: Dose ordered: warfarin 5mg Mon,Sat and 7.5mg all the other days of week.. Next INR: 5 days per Rph consulted Pt on LMWH: No Patient Visit summary provided to: Patient provided with handout of warfarin dosing and next INR appointment. patient repeats back dosing instructions and has no further questions at this time. Patient is agreeable to the plan of care . S C DRIVER documented in this encounter Plan of Treatment Not on filedocumented as of this encounter Procedures Procedure Name Priority Date/Time Associated Diagnosis Comme nts INR, POCT, B Routine 04/27/2018 10:56 AM Results for this CLASS C DRIVER procedure are i n the results section . documented in this encounter Results INR, POCT (04/27/2018 10:56 AM CLASS C DRIVER) P athologist Signature INR, POCT, B 3.1 04/27/2018 [facility] 10:56 AM CLASS C DRIVER [facility] Comment: ----ADDITIONAL INFORMATION---- Standard intensity warfarin therapeutic range: 2.0 to 3.0 ?? High intensity warfarin therapeutic rang e: 2.5 to 3.5 Specimen Anatomical Collection Method Collection Time Receive d Time (Source) Location / / Volume Laterality 04/27/2018 10:56 04/27/2018 AM CLASS C DRIVER 10:59 AM CLASS C DRIVER Generic [facility] POCT ORDERABLES - DEVICE Performing Organization Address City/State/ZIP Code Phon e Number [facility] [address] [place] [address] LAB documented in this encounter Visit Diagnoses Diagnosis Thrombosis Deep Vein Acute Lower Leg Lef t (HCC) Ic Designer Gate Arrays (Current) Anticoagulant Treatm ent Monitoring For Therapeutic Drug Therapy documented in this encounter Care Teams Shoe Designer Relationship Specialty Start Date End Date Kathy Gibson M.D. PCP - General Family Medicine 12/15/17 02/24/19 documented as of this encounter
--- OUTSIDE RECORDS SUMMARY | 2022-02-28 01:40 | XMS_ITS | Encounter Summary ---
:[address] [facility] Address [address] [place] [address] Care Team Providers Name Role Phone Kathy Gibson M.D. Primary Care Provider Encounter Details Date Type Department Care Team Description 05/02/2018 Clinical Communication Department of Bibi Murray, Medicine, Shyla Soria [facility], in [address] [phone] (Work) [phone] Social History Tobacco Use Types Packs/Day Years Used Date Smoking Tobacco: Never Smokeless Tobacco: Never Alcohol Use Standard Drinks/Week Comments No 0 (1 standard drink = 0.6 oz pure alcoho l) Sex Assigned at Date Recorded Female 09/25/2017 1:20 PM CDT documented as of this encounter Miscellaneous Notes Telephone Encounter - Jacquelin Rossi LReginaP.N. - 05/02/2018 2:34 PM CENTER MACHINE SET UP OPERATOR SUBJECTIVE CHIEF COMPLAINT / REASON FOR CALL No chief complaint on file. Patient is requesting the following information: Returning call regarding lab work today. PLAN The following information was provided : Patient was notified per Dr. Gibson that she is not tolerating the lisinopril. Advised to discontinueand start new clonidine once daily at bedtime that was discussed at her appointment today and followup in 3-4 weeks as discussed. Information: patient/caller able to repeat back in their own words The following references were used: provider Dr. Gibson ER MACHINE SET UP OPERATOR Telephone Encounter - Sigrid Bonner - 05/02/2018 2:15 PM CST Reason for Communication: Patient stating she was in to see PCP today and was advised that PCP wouldbe calling her back later today. Patient received call but unsure who it was that called her. No note found regarding call. Unable to reach nurse for PCP Current Can Nursing/Provider leave a detailed message: No Did the patient refuse triage through Nurse line? (for symptom based concerns) N/A Action Needed: Please advise and contact patient Name of Medication (if relevant): N/A ER MACHINE SET UP OPERATOR documented in this encounter Plan of Treatment Not on filedocumented as of this encounter Visit Diagnoses Not on filedocumented in this encounter Care Teams Manager Water Relationship Specialty Start Date End Date Kahty Gibson M.D. PCP - General Family Medicine 12/15/17 02/24/19 documented as of this encounter
--- OUTSIDE RECORDS SUMMARY | 2022-02-28 01:40 | XMS_ITS | Encounter Summary ---
:1940 Author Organization [facility] Address [address] [place] [address] Care Team Providers Name Role Phone Kathy Gibson M.D. Primary Care Provider Encounter Details Date Type Department Care Team Description 04/05/2018 Anticoagulation Visit Department of Yonas Gibson Deep Vein Acute Lower Leg Left (HCC); Anticoagulation in Kathy Shea, Correction Anticoagulant Treatment; Bruce Mansfield M.D. Monitoring For Therapeutic Drug Therapy [address] 200 [facility] [address] [facility] [phone] [place] [address] Social History Tobacco Use Types Packs/Day Years Used Date Smoking Tobacco: Never Smokeless Tobacco: Never Alcohol Use Standard Drinks/Week Comments No 0 (1 standard drink = 0.6 oz pure alcoho l) Sex Assigned at Date Recorded Female 09/25/2017 1:20 PM CDT documented as of this encounter Progress Notes Mónica Knox, R.N. - 04/05/2018 11:30 AM CST Warfarin Initiation Nursing Protocol Goal Range 2.0-3.0 (version approved 11/25/16) Visit Type: Patient presents for Dnbk-jl-Kqly visit in Anticoagulation Service. Primary reason for visit: Warfarin initiation f/u Information provided by: patient and caregiver - Today is Day 11 warfarin initiation.. Inclusion Criteria: All inclusion criteria met. Proceeded to exclusion criteria. Exclusion Criteria: No exclusion criteria, proceed to screening criteria Screening Criteria: All screening criteria negative (Baseline INR completed or not applicable, has not had 2 consecutive outpatient INRs in goal range, no medication changes/added medication since initiation of warfarin (or amiodarone change in last 4 weeks), no change in warfarin adherence in last 3 days) Additional info: Diet: reviewed diet and vitK intake, need for consistency Patient has warfarin and confirms strength 2.5 mg and green color. Patient states understanding that a prescription is being sent to pharmacy and will be 2.5 mg, greencolor tabs. Pt reports a small bump under the skin at an injection site. Notes it is itchy. Small hematoma in subq, approximately size of a marble on mid/left portion of abdomen. Dry,Clean, no sign of infection. Reviewed sign/symptom of bleeding and infection and what to do if this occurs. Plan to change to 5mg tab in near future. Current Outpatient Medications Medication Sig ??? amoxicillin-pot clavulanate (AUGMENTIN) 875-125 mg per tablet ??? CALCIUM CARB/VIT D3/MINERALS (CALCIUM-VITAMIN D ORAL) Take 1 tablet by mouth daily. ??? dilTIAZem CD (for_CARDIZEM CD/CARTIA XT) 240 mg 24 hr capsule Take 1 capsule (240 mg total) by mouth every morning. ??? enoxaparin (LOVENOX) 80 mg/0.8 mL injection Give 70mg enoxaparin subq every 12 hour. ??? furosemide (LASIX) 40 mg tablet Take 1 tablet (40 mg total) by mouth daily. ??? hydroxychloroquine (PLAQUENIL) 200 mg tablet ??? lisinopril (PRINIVIL,ZESTRIL) 10 mg tablet Take 1 tablet (10 mg total) by mouth daily. ??? MULTIVITAMIN ORAL Take 1 tablet by [...] day. ??? warfarin (COUMADIN) 2.5 mg tablet 2 tab(5mg) daily, to be taken in the evening Previous INR was subtherapeutic.1.4 Today???s INR is 1.6 Subtherapeutic, Causes: New to warfarin, still establishing dose. Dosing and follow up recommendation: 1.5-1.7 Increase average daily dose by 50% x 1 dose and then resume current dose until next INR check. ?? If bridged at initiation and previous INR was therapeutic but current INR was below 2, seek providerinput for bridging 2-4 days Increase per Pharm consult to 7.5mg daily. Continue with enoxaparin as instructed. Recheck INR 4 days. Patient Visit summary provided to: Patient provided with handout of warfarin dosing and next INR appointment. patient and caregiver repeats back dosing instructions and has no further questions at thistime. and patient and caregiver repeats back dosing instructions and has no further questions at this time. Spoke with pt on the phone re dosing of 7.5mg daily. She did write this down and verbalized instructions accurately to me. Patient is agreeable to the plan of care. D CARE ATTENDANT Mónica Knox R.N. - 04/05/2018 11:30 AM CST That would be a 12.5mg/week increase. 30% correct. D CARE ATTENDANT documented in this encounter Plan of Treatment Not on filedocumented as of this encounter Procedures Procedure Name Priority Date/Time Associated Diagnosis Comme nts INR, POCT, B Routine 04/05/2018 10:43 AM Results for this CHILD CARE ATTENDANT procedure are i n the results section . INR, POCT, B Routine 04/05/2018 10:41 AM Results for this CHILD CARE ATTENDANT procedure are i n the results section . documented in this encounter Results INR, POCT (04/05/2018 10:43 AM CHILD CARE ATTENDANT) P athologist Signature INR, POCT, B 1.5 04/05/2018 [facility] 10:43 AM [facility] Comment: ----ADDITIONAL INFORMATION---- Standard intensity warfarin therapeutic range: 2.0 to 3.0 ?? High intensity warfarin therapeutic rang e: 2.5 to 3.5 Specimen Anatomical Collection Method Collection Time Receive d Time (Source) Location / / Volume Laterality 04/05/2018 10:43 04/05/2018 AM CHILD CARE ATTENDANT 10:45 AM CHILD CARE ATTENDANT [facility] POCT ORDERABLES - DEVICE Performing Organization Address City/State/ZIP Code Phon e Number [facility] [address] [place] [address] LAB INR, POCT (04/05/2018 10:41 AM CHILD CARE ATTENDANT) P athologist Signature INR, POCT, B 1.6 04/05/2018 [facility] 10:41 AM [facility]ILD CARE [facility]ENDANT [facility] Comment: ----ADDITIONAL INFORMATION---- Standard intensity warfarin therapeutic range: 2.0 to 3.0 ?? High intensity warfarin therapeutic rang e: 2.5 to 3.5 Specimen Anatomical Collection Method Collection Time Receive d Time (Source) Location / / Volume Laterality 04/05/2018 10:41 04/05/2018 AM CHILD CARE ATTENDANT 10:45 AM CHILD CARE ATTENDANT Generic [facility] POCT ORDERABLES - DEVICE Performing Organization Address City/[facility]/ZIP Code Phon e Number [facility] [address] [place] [address] LAB documented in this encounter Visit Diagnoses Diagnosis Thrombosis Deep Vein Acute Lower Leg Lef t (HCC) Ball Thread Machine Tender (Current) Anticoagulant Treatm ent Monitoring For Therapeutic Drug Therapy documented in this encounter Care Teams Monument Installer Relationship Specialty Start Date End Date Kathy Gibson M.D. PCP - General Family Medicine 12/15/17 02/24/19 documented as of this encounter
--- OUTSIDE RECORDS SUMMARY | 2022-02-28 01:40 | XMS_ITS | Encounter Summary ---
:1940 Author Organization [facility] Address [address] [place] [address] Care Team Providers Name Role Phone Kathy Gibson M.D. Primary Care Provider Encounter Details Date Type Department Care Team Description 05/02/2018 Orders Only Department of Family Stacey Gibson M.D. Medicine, [facility], [address] [place] [address] [address] [facility] [address] [phone] Social History Tobacco Use Types Packs/Day Years [...] on filedocumented in this encounter Care Teams General Partner Relationship Specialty Start Date End Date Kathy Gibson M.D. PCP - General Family Medicine 12/15/17 02/24/19 documented as of this encounter
--- OUTSIDE RECORDS SUMMARY | 2022-02-28 01:40 | XMS_ITS | Encounter Summary ---
:1940 Author Organization [facility] Address [address] [place] [address] Care Team Providers Name Role Phone Kathy Gibson M.D. Primary Care Provider Encounter Details Date Type Department Care Team Description 04/02/2018 Anticoagulation Visit Department of Yonas Gibson Deep Vein Acute Lower Leg Left (HCC); Anticoagulation in Kathy Shea, Fpc Anticoagulant Treatment; Bruce Mansfield M.D. Monitoring For Therapeutic Drug Therapy [address] [facility] [address] [facility] [phone] [place] [address] Social History Tobacco Use Types Packs/Day Years Used Date Smoking Tobacco: Never Smokeless Tobacco: Never Alcohol Use Standard Drinks/Week Comments No 0 (1 standard drink = 0.6 oz pure alcoho l) Sex Assigned at Date Recorded Female 09/25/2017 1:20 PM CDT documented as of this encounter Progress Notes Mónica Knox, RReginaN. - 04/02/2018 10:15 AM CST Warfarin Initiation Nursing Protocol Goal Range 2.0-3.0 (version approved 11/25/16) Visit Type: Patient presents for Lyvv-ux-Nuoz visit in Anticoagulation Service. Primary reason for visit: Warfarin initiation f/u Information provided by: patient and caregiver - Today is Day 8 warfarin initiation.. Inclusion Criteria: All inclusion criteria [...] adherence in last 3 days) Additional info: Warfarin initiated on 03/26/18. Site of zubq injections shows large ecchymotic areas present. Abdomen soft, non tender, clean, dry. No signs of infection or hematoma present. Current Outpatient Medications Medication Sig ??? amoxicillin-pot [...] taken in the evening Previous INR was subtherapeutic.1.3 Today???s INR is 1.4 Subtherapeutic, Causes: New to warfarin, still establishing dose. Dosing and follow up recommendation: 1.3 to 1.4 Increase average daily dose by 50% until next INR check. ?? If bridged at initiation and previous INR was therapeutic but current INR was below 2, seek providerinput for bridging 2-4 days Warfarin 7.5mg Mon,e,Wed and recheck INR 04/05/18. Same day as PCP appt. Continue with enoxaparin 70mg subq every 12hour until inr therapeutic. Patient Visit summary provided to: Patient provided with handout of warfarin dosing and next INR appointment. patient and caregiver repeats back dosing instructions and has no further questions at thistime. Patient is agreeable to the plan of care. GENCY RESPONSE COORDINATOR documented in this encounter Plan of Treatment Not on filedocumented as of this encounter Procedures Procedure Name Priority Date/Time Associated Diagnosis Comme nts INR, POCT, B Routine 04/02/2018 10:35 AM Results for this EMERGENCY RESPONSE COORDINATOR procedure are i n the results section . INR, POCT, B Routine 04/02/2018 10:32 AM Results for this EMERGENCY RESPONSE COORDINATOR procedure are i n the results section . documented in this encounter Results INR, POCT (04/02/2018 10:35 AM EMERGENCY RESPONSE COORDINATOR) P athologist Signature INR, POCT, B 1.4 04/02/2018 [facility] 10:35 AM EMERGENCY RESPONSE COORDINATOR [facility] Comment: ----ADDITIONAL INFORMATION---- Standard intensity warfarin therapeutic range: 2.0 to 3.0 ?? High intensity warfarin therapeutic rang e: 2.5 to 3.5 Specimen Anatomical Collection Method Collection Time Receive d Time (Source) Location / / Volume Laterality 04/02/2018 10:35 04/02/2018 AM EMERGENCY RESPONSE COORDINATOR 10:37 AM EMERGENCY RESPONSE COORDINATOR Generic [facility] POCT ORDERABLES - DEVICE Performing Organization Address City/State/ZIP Code Phon e Number [facility] [address] [place] [address] LAB INR, POCT (04/02/2018 10:32 AM EMERGENCY RESPONSE COORDINATOR) P athologist Signature INR, POCT, B 1.3 04/02/2018 [facility] 10:32 AM EMERGENCY RESPONSE COORDINATOR [facility] Comment: ----ADDITIONAL INFORMATION---- Standard intensity warfarin therapeutic range: 2.0 to 3.0 ?? High intensity warfarin therapeutic rang e: 2.5 to 3.5 Specimen Anatomical Collection Method Collection Time Receive d Time (Source) Location / / Volume Laterality 04/02/2018 10:32 04/02/2018 AM EMERGENCY RESPONSE COORDINATOR 10:37 AM EMERGENCY RESPONSE COORDINATOR Generic [facility] POCT ORDERABLES - DEVICE Performing Organization Address City/State/ZIP Code Phon e Number [facility] [address] [place] [address] LAB documented in this encounter Visit Diagnoses Diagnosis Thrombosis Deep Vein Acute Lower Leg Lef t (HCC) Fpc (Current) Anticoagulant Treatm ent Monitoring For Therapeutic Drug Therapy documented in this encounter Care Teams Supply Chain Analyst Relationship Specialty Start Date End Date Kathy Gibson M.D. PCP - General Family Medicine 12/15/17 02/24/19 documented as of this encounter
--- OUTSIDE RECORDS SUMMARY | 2022-02-28 01:41 | XMS_ITS | Encounter Summary ---
:1940 Author Organization [facility] Address [address] [place] [address] Care Team Providers Name Role Phone Eliseo Hoffman M.D. Primary Care Provider Encounter Details Date Type Department Care Team Description 11/06/2017 Clinical Communication Department of [facility] Sherry Murray, MedicineShyla M.D. Clinic, in [address] [facility] [address] [place], [place] [phone] [address] (Work) [phone] Social History Tobacco Use Types Packs/Day Years Used Date Smoking Tobacco: Never Smokeless Tobacco: Never Alcohol Use Standard Drinks/Week Comments No 0 (1 standard drink = 0.6 oz pure alcoho l) Sex Assigned at Date Recorded Female 09/25/2017 1:20 PM CDT documented as of this encounter Miscellaneous Notes Telephone Encounter - Angeles Person LReginaP.N. - 11/07/2017 9:07 AM CDT Patient is aware. She is out of the medication she thinks is causing the eye problems. Call was transferred to make an appointment with Dr. Murray prior to refilling the medication to see what the doctor suggest. Telephone Encounter - Sherry Murray M.D. - 11/07/2017 8:31 AM CDT She will need to schedule an appointment either this week or next week. Sherry Murray MD Telephone Encounter - Martha Loomis R.N. - 11/06/2017 5:01 PM CDT Patient wants to see you prior to you having your baby, when do you suggest she should schedule?? Telephone Encounter - Martha Loomis R.N. - 11/06/2017 4:48 PM CDT Called patient to get more information. Patient feels that the methotrexate is causing eye problems:focusing and feeling she is not all together. This has been going on about a month. Is due for a refill on this but wanted to talk to you first. Telephone Encounter - Emma Crocker - 11/06/2017 1:27 PM CDT Please contact patient on Tuesday 11/07, regarding a medication question. She said one of her medications is bothering her eyes. documented in this encounter Plan of Treatment Not on filedocumented as of this encounter Visit Diagnoses Not on filedocumented in this encounter Care Teams Primer Assembler Relationship Specialty Start Date End Date Eliseo Hoffman M.D. PCP - General 09/08/16 11/16/[address] [place], [place] [address] [address] documented as of this encounter
--- OUTSIDE RECORDS SUMMARY | 2022-02-28 01:41 | XMS_ITS | Encounter Summary ---
:1940 Author Organization [facility] Address [address] [place] [address] Care Team Providers Name Role Phone Eliseo Hoffman M.D. Primary Care Provider Encounter Details Date Type Department Care Team Description 10/09/2017 Clinical Communication Department of [facility] Negro Escalante [facility] LARS Love C.N .P. [facility], in [place], [address] [place], [place] [address] [address] [place], [place] [phone] [address] (Work) [phone] Social History Tobacco Use Types Packs/Day Years Used Date Smoking Tobacco: Never Smokeless Tobacco: Never Alcohol Use Standard Drinks/Week Comments No 0 (1 standard drink = 0.6 oz pure alcoho l) Sex Assigned at Date Recorded Female 09/25/2017 1:20 PM CDT documented as of this encounter Miscellaneous Notes Telephone Encounter - Teetee Villareal - 10/09/2017 4:04 PM CDT Left message for patient to call back and schedule her appointment. (with Verónica). documented in this encounter Plan of Treatment Not on filedocumented as of this encounter Visit Diagnoses Not on filedocumented in this encounter Care Teams Golf Ball Marker Relationship Specialty Start Date End Date Eliseo Hoffman M.D. PCP - General 09/08/16 11/16/[address] [place], [place] [phone] documented as of this encounter
--- OUTSIDE RECORDS SUMMARY | 2022-02-28 01:41 | XMS_ITS | Encounter Summary ---
:1940 Author Organization [facility] Address [address] [place] [address] Care Team Providers Name Role Phone Kathy Gibson M.D. Primary Care Provider Reason for Visit Appointment Request (Routine) - Closed Specialty Diagnoses / Procedures Referred By Contact Refer red To Contact Family Medicine Referral ID Status Reason Start Date Expiration Date Visits Requ ested Visits Authorized [id number] Closed 01/05/2018 01/05/2019 1 Encounter Details Date Type Department Care Team Description 01/11/2018 Office Visit Department of Family Martha Loomis al Medicare Examination Return (Primary Dx); MedicineShyla R.N. [facility], in [place] [address] [place] [phone] Social History Tobacco Use Types Packs/Day Years Used Date Smoking Tobacco: Never Smokeless Tobacco: Never Alcohol Use Standard Drinks/Week Comments No 0 (1 standard drink = 0.6 oz pure alcoho l) Sex Assigned at Date Recorded Female 09/25/2017 1:20 PM CDT documented as of this encounter Last Filed Vital Signs Vital Sign Reading Time Taken Comments Blood Pressure 170/58 01/11/2018 10:25 AM CDT Pulse 64 01/11/2018 10:25 AM CDT Temperature - - Respiratory Rate 16 01/11/2018 10:23 AM CDT Oxygen Saturation - - Inhaled Oxygen Concentration - - Weight 76.2 kg (168 lb 1.6 oz) 01/11/2018 10:23 AM CDT Height 159.5 cm (5' 2.8) 01/11/2018 10:23 AM CDT Body Mass Index 29.97 01/11/2018 10:23 AM CDT documented in this encounter Patient Instructions Patient InstructionsMartha Loomis R.N. - 01/11/2018 9:45 AM CDT Treatment plan: maintain a healthy diet and continue your daily exercise. see provider as needed. Follow up in one year for an annual wellness visit with an RN. Recommendations: see above Provider follow up appt: will schedule after rheumotologist visit documented in this encounter Progress Notes Martha Loomis R.N. - 01/11/2018 9:45 AM CDT HEALTH ASSESSMENT SUBJECTIVE REASON FOR VISIT: Subsequent Annual Wellness Visit REVIEW OF SYSTEMS: Patient reported pain symptoms: No Cardiovascular: none Respiratory:negative Gastrointestinal symptoms: None Genitourinary symptoms: patient self caths Arthritis LANGUAGES: Beninese VITALS: There were no vitals taken for this visit. ALLERGIES: Allergies Allergen Reactions ??? Leflunomide Hallucinations ??? Methotrexate Other (see comments) Did not feel well ??? Oxycodone Other (see comments) No reaction listed in [employer] ??? Sulfa (Sulfonamide Antibiotics) Other (see comments) No reaction listed in [employer] MEDICATION MANAGEMENT: How do you set up your medications? Without help On how may days over the past week did you forget to take 1 or more medications as prescribed? 0 Current Outpatient Prescriptions Medication Sig Dispense Refill ??? ASPIRIN ORAL Take 1 tablet by mouth daily. ??? CALCIUM CARB/VIT D3/MINERALS (CALCIUM-VITAMIN D ORAL) Take 1 tablet by mouth daily. ??? dilTIAZem CD (for_CARDIZEM CD/CARTIA XT) 240 mg 24 hr capsule Take 1 capsule (240 mg total) by mouth every morning. 90 capsule 3 ??? furosemide (LASIX) 40 mg tablet Take 1 tablet (40 mg total) by mouth daily. 90 tablet 3 ??? MULTIVITAMIN ORAL Take 1 tablet by [...] November . ) 109 tablet 3 ??? raNITIdine (ZANTAC) 150 mg tablet Take 1 tablet (150 mg total) by mouth 2 (two) times a day. 60 tablet 0 No current facility-administered medications for this visit. HISTORY: Past Medical History: Diagnosis Date ??? [...] Surgical History: Procedure Laterality Date ??? BREAST SURGERY Right 1983 Benign x 2 ??? CATARACT EXTRACTION AND INSERTION OF INTRAOCULAR LENS Bilateral ??? CHOLECYSTECTOMY ??? FLEXIBLE SIGMOIDOSCOPY 11/2003 ??? HYSTERECTOMY ABDOMINAL WITH SALPINGO - OOPHORECTOMY Bilateral 1992 Nonmalignant reasons with associated bladder repair ??? REPLACEMENT TOTAL KNEE Right 06/2017 ??? SACRAL NERVE STIMULATOR PLACEMENT 05/04/2016 Advanced trial of InterStim Family History Problem Relation Age of Onset ??? Hypertension Brother ??? Diabetes Brother ??? Coronary artery disease Brother ??? Heart attack Brother In his 40s ??? Cataracts Father ??? Rheum arthritis Mother ??? Stroke Son Due to blood clot. ??? No Known Problems Son DEPENDENT HABITS: Social History Substance Use Topics ??? Smoking status: Never Smoker ??? Smokeless tobacco: Never Used ??? Alcohol use No FAMILY/SOCIAL: Domestic abuse: Domestic Abuse Concerns: None Marital status: Marital Status: Years of Marriage: 17 years Emotional Support Available: yes Chronically or Terminally Ill with Frequent Visits: no Financial Concerns: no Occupation/Employment Status: Employment Status: Retired Stressors: none Education: College Graduate Limitations on the Ability to Enjoy Recreation: Other: no concerns PHQ-2 PHQ-2 Score: 0 PHQ-9 PHQ-9 Total Score (max 27): 0 Mini Cog Mini Cognitive Exam Word Version: 1 Clock Draw (CTD): CDT Normal Word Recall: 2 Mini Cog Exam Result: 4 Mini Cog Exam Comment: diana clock appropriately NUTRITION: Perception of body size: Too fat Nutrition risk factors by history: Active eating disorder Home diet: Low carbohydrate Meal pattern: Breakfast everyday or most days and 2-3 meals per day Feeding ability: Complete independence Eating difficulties:None Appetite: Good Nutritional Plan: Limit dietary fat/cholesterol EXERCISE: other - 7 days/week for 15 minutes/day FUNCTIONAL/HOME ENVIRONMENT History of falls: Fall Risk Scale and Assessments Have you fallen in the last year?: No Home Environment note: has handrails on steps at home, has a chairlift, has working smoke and carbonmonoxide detectors, uses seatbelts in vehicles, no guns. Lives in a rambler. Has a few rugs in home.Live in a safe environment. Timed Up and Go Test: Timed Up and Go (TUG): 11 seconds ADVANCE DIRECTIVE: Yes - not on file Goals None Treatment plan: maintain a healthy diet and continue your daily exercise. see provider as needed. Follow up in one year for an annual wellness visit with an RN. Recommendations: see above Provider follow up appt: will schedule after rheumotologist visit Preventative screening checklist reviewed and updated: yes Provider notified: No Margie Loomis R.N. documented in this encounter Plan of Treatment Not on filedocumented as of this encounter Visit Diagnoses Diagnosis Annual Medicare Examination Return - Thuy brendon Need Vaccine Immunization documented in this encounter Care Teams Waiter/Waitress Head Relationship Specialty Start Date End Date Kathy Gibson M.D. PCP - General Family Medicine 12/15/17 02/24/19 documented as of this encounter
--- OUTSIDE RECORDS SUMMARY | 2022-02-28 01:41 | XMS_ITS | Encounter Summary ---
:1940 Author Organization [facility] Address [address] [place] [address] Care Team Providers Name Role Phone Eliseo Hoffman M.D. Primary Care Provider Reason for Visit Reason Comments Urinary Catheter Change patient was unable to void a fter trial catheter placed back Appointment Request (Routine) - Closed Specialty Diagnoses / Procedures Referred By Contact Refer red To Contact Urology Referral ID Status Reason Start Date Expiration Date Visits Requ ested Visits Authorized [id number] Closed 10/09/2017 10/09/2018 1 1 Encounter Details Date Type Department Care Team Description 10/09/2017 Office Visit Department of Urology in Airam Monzon [place], [place] A, L.P.N. [address] [place] [address] [place], [place] [phone] Social History Tobacco Use Types Packs/Day Years Used Date Smoking Tobacco: Never Smokeless Tobacco: Never Alcohol Use Standard Drinks/Week Comments No 0 (1 standard drink = 0.6 oz pure alcoho l) Sex Assigned at Date Recorded Female 09/25/2017 1:20 PM CDT documented as of this encounter Progress Notes Zenaida Monzon L.P.N. - 10/09/2017 2:00 PM CDT 16F silicone straight urethral higginbotham catheter changed without difficulty. Urine return. Balloon inflated to 10 ml. Of sterile water. Catheter is secured with a leg strap and is connected to straight drainage with a leg bag. Patient tolerated procedure well. documented in this encounter Plan of Treatment Not on filedocumented as of this encounter Visit Diagnoses Diagnosis Retention Urinary documented in this encounter Care Teams Imagery Analyst Relationship Specialty Start Date End Date Eliseo Hoffman M.D. PCP - General 09/08/16 11/16/17 [address] [facility] [place] [address] documented as of this encounter
--- OUTSIDE RECORDS SUMMARY | 2022-02-28 01:41 | XMS_ITS | Encounter Summary ---
:1940 Author Organization [facility] Address [address] [place] [address] Care Team Providers Name Role Phone Kathy Gibson M.D. Primary Care Provider Encounter Details Date Type Department Care Team Description 01/08/2018 Clinical Communication Department of [facility] Bibi Gibson, Medicine, [place], in [address] [phone] (Work) [phone] Social History Tobacco Use Types Packs/Day Years Used Date Smoking Tobacco: Never Smokeless Tobacco: Never Alcohol Use Standard Drinks/Week Comments No 0 (1 standard drink = 0.6 oz pure alcoho l) Sex Assigned at Date Recorded Female 09/25/2017 1:20 PM CDT documented as of this encounter Miscellaneous Notes Letter - Kathy Gibson M.D. - 01/08/2018 12:00 PM CDT January 11, 2018 DR. NACHO JAMES [address] [place] [address], [address] [place] [address] RE: JACOB ANDINO #: [id number] : 1940 RE: Jacob Andino Dear Dr. James: This letter is in regards to Jacob Andino, a 77-year-old female, who will be seeing you secondary to an atypical arthritis. She has been on methotrexate and leflunomide in the past. She is interested in reassessment of her health issues. At the present time, she is currently taking prednisone. Her current medications include: aspirin 81 mg orally each day, calcium with vitamin D each day, diltiazem CD 240 mg each day, furosemide 40 mg each day, multivitamin each day, prednisone 12.5 mg dailyand ranitidine 150 mg twice per day. She has sensitivities to oxycodone and sulfa, but the details are not clear. She is status post cataract extraction, cholecystectomy, total abdominal hysterectomy, sacral nerve stimulator placement, as well as benign breast surgery x2. She has diabetes mellitus, epicondylitis, chronic fatigue, mixed hyperlipidemia, hypertension superimposed on chronic renal disease, polymyalgia rheumatica and the inflammatory arthritis, primary osteoarthritis, urinary retention, and varicose veins. She does not smoke or use alcohol. She is up to date in terms of her health care maintenance. Family history is pertinent for mother who has rheumatoid arthritis. Her father had cataracts. She has a brother with hypertension, diabetes, coronary artery disease, as well as an AK in his 40s. She has a son who has had a stroke due to blood clots. Thank you for your care in regards to this patient. If you have any questions, please contact our office. Sincerely, Kathy Gibson M.D. Job ID: [id number]/[id number] documented in this encounter Plan of Treatment Not on filedocumented as of this encounter Visit Diagnoses Not on filedocumented in this encounter Care Teams Communicable Disease Specialist Relationship Specialty Start Date End Date Kathy Gibson M.D. PCP - General Family Medicine 12/15/17 02/24/19 documented as of this encounter
--- OUTSIDE RECORDS SUMMARY | 2022-02-28 01:41 | XMS_ITS | Encounter Summary ---
:1940 Author Organization [facility] Address [address] [place] [address] Care Team Providers Name Role Phone Eliseo Hoffman M.D. Primary Care Provider Reason for Visit Reason Comments follow up ER patient stated she ended up with a catheter and she had 2.5 liters in her bladder Encounter Details Date Type Department Care Team Description 09/25/2017 Office Visit Department of Urology Verónica Escalante, Retention Urinary in [place], C.N.P. (Primary Dx) [address] [phone] Social History Tobacco Use Types Packs/Day Years Used Date Smoking Tobacco: Never Smokeless Tobacco: Never Alcohol Use Standard Drinks/Week Comments No 0 (1 standard drink = 0.6 oz pure alcoho l) Sex Assigned at Date Recorded Female 09/25/2017 1:20 PM CDT documented as of this encounter Last Filed Vital Signs Vital Sign Reading Time Taken Comments Blood Pressure 156/68 09/25/2017 1:11 PM CDT Pulse 68 09/25/2017 1:11 PM CDT Temperature 36.4 ??C (97.5 ??F) 09/25/2017 1:11 PM CDT Respiratory Rate - - Oxygen Saturation - - Inhaled Oxygen Concentration - - Weight - - Height - - Body Mass Index - - documented in this encounter Progress Notes Verónica Escalante APRN, C.N.P. - 09/25/2017 1:30 PM CDT SUBJECTIVE CHIEF COMPLAINT/REASON FOR VISIT Urinary Retention HISTORY OF PRESENT ILLNESS Zoe is a pleasant 76 year old female here today for an acute visit for Urinary Retention. She has a long history of urinary retention and actually has an InterStim device placed to assist with this. In June 2017, she had her knee replaced, her InterStim was turned off at this time. This caused her to have urinary retention well hospitalized. She was straight cathed several times but preferred to not have an indwelling Vizcarra catheter. Last month, she was started on methotrexate and prednisone for her rheumatoid arthritis. She was seen at the [facility] on September 16, 2017 as shewas having difficulty voiding and states that she was swollen all over. A full catheter was placed and more than 2 L of urine were removed from her bladder. She has had an indwelling Vizcarra catheter since that time. She has stopped taking her methotrexate because she feels this was what caused her inability to void. She would like to have her catheter removed today. The following portions of the patient's history were reviewed and updated as appropriate: allergies,current medications, family history, medical history, social history, surgical history and problem list. REVIEW OF SYSTEMS ENT: Positive for difficulty hearing. Gastrointestinal: Positive for constipation. Genitourinary: Positive for incontinence, urgency and frequent urination. Hematologic: Positive for bruises or bleeds easily. The following systems were negative: Constitutional, Skin, Eyes, CV, Respiratory, Musculoskeletal, Neuro, Psych OBJECTIVE Vitals: 09/25/17 1311 BP: 156/68 Patient Position: Sitting Pulse: 68 Temp: 36.4 ??C TempSrc: Temporal PHYSICAL EXAM Vitals and [...] non-distended Extremities: Warm, without edema or ulcerations. DIAGNOSTIC Postvoid residual 479 mL ASSESSMENT / PLAN #1 Retention Urinary, acute on chronic #2 Interstim Placement 05/11/2016 We had an in-depth discussion about her urinary retention. She does not feel that her bladder is full at this time, I agree with her. We discussed that she essentially has 3 options at this time. We can teach her to self intermittent catheterize, she can have an indwelling Vizcarra catheter, or we can give her more time to fill her bladder and therefore empty it. If she has difficulty emptying her bladder, she should contact us and we will see her in the morning to replace her Vizcarra or teach intermittent catheterization. All of her questions are answered today and she is in agreement with the plan that we have made. Signed by: Verónica Escalante APRN, C.N.P. 09/25/2017 3:38 PM documented in this encounter Plan of Treatment Not on filedocumented as of this encounter Visit Diagnoses Diagnosis Retention Urinary - Primary documented in this encounter Care Teams Strategic Solutions Consultant Relationship Specialty Start Date End Date Eliseo Hoffman M.D. PCP - General 09/08/16 11/16/[address] [place] [address] documented as of this encounter
--- OUTSIDE RECORDS SUMMARY | 2022-02-28 01:41 | XMS_ITS | Encounter Summary ---
:1940 Author Organization [facility] Address [address] [place] [address] Care Team Providers Name Role Phone Eliseo Hoffman M.D. Primary Care Provider Encounter Details Date Type Department Care Team Description 11/06/2017 Clinical Communication Department of [facility] Mirza L[facility], in [place], [place] [address] [place] [address] Social History Tobacco Use Types Packs/Day Years [...] on filedocumented in this encounter Care Teams Seo Strategist Relationship Specialty Start Date End Date Eliseo Hoffman M.D. PCP - General 09/08/16 11/16/17 [address] [place] [address] documented as of this encounter
--- OUTSIDE RECORDS SUMMARY | 2022-02-28 01:41 | XMS_ITS | Encounter Summary ---
:1940 Author Organization [facility] Address [address] [place] [address] Care Team Providers Name Role Phone Eliseo Hoffman M.D. Primary Care Provider Reason for Referral Outpatient (Routine) - Closed Specialty Diagnoses / Procedures Referred By Contact Refer red To Contact Urology Verónica Escalante APRN, C.N.P. [facility] [address] [place] [phone] Referral ID Status Reason Start Date Expiration Date Visits Requ ested Visits Authorized [id number] Closed 11/06/2017 11/06/2018 1 1 Reason for Visit Reason Comments Urinary Retention patient is wanting to do a t rial of void Outpatient (Routine) - Closed Specialty Diagnoses / Procedures Referred By Contact Carlos quinn To Contact Urology Verónica Escalante APRN, C.N.P. [facility] [address] [place] [phone] Referral ID Status Reason Start Date Expiration Date Visits Requ ested Visits Authorized [id number] Closed 10/09/2017 10/09/2018 1 1 Encounter Details Date Type Department Care Team Description 11/06/2017 Office Visit Department of Urology Verónica Escalante, Retention Urinary in [place], C.N.P. (Primary Dx) [address] [phone] Social History Tobacco Use Types Packs/Day Years Used Date Smoking Tobacco: Never Smokeless Tobacco: Never Alcohol Use Standard Drinks/Week Comments No 0 (1 standard drink = 0.6 oz pure alcoho l) Sex Assigned at Date Recorded Female 09/25/2017 1:20 PM CDT documented as of this encounter Last Filed Vital Signs Vital Sign Reading Time Taken Comments Blood Pressure 158/53 11/06/2017 1:58 PM CDT Pulse 80 11/06/2017 1:58 PM CDT Temperature 37 ??C (98.6 ??F) 11/06/2017 1:58 PM CDT Respiratory Rate - - Oxygen Saturation - - Inhaled Oxygen Concentration - - Weight - - Height - - Body Mass Index - - documented in this encounter Progress Notes Verónica Escalante, [place]ARS, C.N.P. - 11/06/2017 2:00 PM CDT SUBJECTIVE CHIEF COMPLAINT/REASON FOR VISIT Urinary retention HISTORY OF PRESENT ILLNESS Zoe is a pleasant 76-year-old female here today for a voiding trial. She has a long history urinary retention and urinary tract infections. She had InterStim placement in April 2016. She was stillhaving some retention at that point, but it was greatly improved and she was able to void without complication. She had knee replacement surgery in June 2017. Since that time, she has had urinary retention and has been completely unable to empty her bladder. She has had Vizcarra catheters placed at the emergency department. She failed trial of void twice in September. She would like a voiding trial today and to discuss the possibility of self intermittent catheterization. The following portions of the patient's history were reviewed and updated as appropriate: allergies,current medications, family history, medical history, social history, surgical history and problem list. REVIEW OF SYSTEMS ENT: Positive for difficulty hearing. Gastrointestinal: Positive for constipation. Genitourinary: Positive for difficulty urinating and frequent urination. Hematologic: Positive for bruises or bleeds easily. The following systems were negative: Constitutional, Skin, Eyes, CV, Respiratory, Musculoskeletal, Neuro, Psych OBJECTIVE Vitals: 11/06/17 1358 BP: (!) 158/53 Patient Position: Sitting Pulse: 80 Temp: 37 ??C TempSrc: Temporal PHYSICAL EXAM Vitals and [...] of accessory muscles. Abdomen: Soft, non-tender, non-distended : No abnormalities noted, no skin changes, no lesions or rashes. Extremities: Warm, without edema or ulcerations. ASSESSMENT / PLAN #1 Retention Urinary The patient's bladder was filled prior to removal of her catheter. She was unable to empty her bladder at all. Instruction and patient demonstration of mastery for self intermittent catheterization. She was able to perform this without any problems or issues. I would like her to self intermittent catheterize at least 3 times daily. I would like her to try tokeep track of the volume that is catheterized. If she has difficulty with catheterization, she will contact us. If she starts to urinate on her own and has catheterized residual of less than 200 mL, wewould discuss discontinuation of self intermittent catheterization. I would like to see her back in approximately 1 month to see how things are going and make any changes to her plan as needed at that time. If she has any questions or concerns prior to that end, she will contact us. Catheter supplies will be sent to [facility] in [place]. All of her questions are answered today and she is in agreement with the plan that we have made. More than 30 min is spent with this patient today, approximately 20 min spent with catheter education by this provider. Signed by: Verónica Escalante APRN, C.N.P. 11/07/2017 12:36 PM documented in this encounter Plan of Treatment Scheduled Referrals Name Type Priority Associated Diagnoses Order [facility] Urology office Outpatient Referral Routine Expect ed: visit (clinic) 12/07/2017 (Approximate), Expires: 11/06/2020 documented as of this encounter Visit Diagnoses Diagnosis Retention Urinary - Primary documented in this encounter Care Teams Enrollment Management Manager Relationship Specialty Start Date End Date Eliseo Hoffman M.D. PCP - General 09/08/16 11/16/[address] [place] [address] [place] [address] documented as of this encounter
--- OUTSIDE RECORDS SUMMARY | 2022-02-28 01:41 | XMS_ITS | Encounter Summary ---
:1940 Author Organization [facility] Address [address] [place] [address] Care Team Providers Name Role Phone Kathy Gibson M.D. Primary Care Provider Encounter Details Date Type Department Care Team Description 01/11/2018 Hospital Encounter Department of Kathy Gibson Mammogram Radiology in [facility] [place], [place] [address] [facility] [address] [place], [place] [phone] Social History Tobacco Use Types Packs/Day Years Used Date Smoking Tobacco: Never Smokeless Tobacco: Never Alcohol Use Standard Drinks/Week Comments No 0 (1 standard drink = 0.6 oz pure alcoho l) Sex Assigned at Date Recorded Female 09/25/2017 1:20 PM CDT documented as of this encounter Medications at Time of Discharge Medication Sig Dispensed Refills Start Date End Date CALCIUM CARB/VIT Take 1 tablet by 0 01/11/2010 D3/MINERALS mouth daily. (CALCIUM-VITAMIN D ORAL) MULTIVITAMIN ORAL Take 1 tablet by 0 01/11/2010 mouth daily. raNITIdine (ZANTAC) 150 Take 1 tablet (150 60 tablet 0 11/2606/19/2018 mg tablet mg total) by mouth 2 (two) times a day. ASPIRIN ORAL Take 1 tablet by 0 08/02/20162018 mouth daily. dilTIAZem CD Take 1 capsule (240 90 capsule 3 07/04/201709/2018 (for_CARDIZEM CD/CARTIA mg total) by mouth XT) 240 mg 24 hr capsule every morning. furosemide (LASIX) 40 mg Take 1 tablet (40 mg 90 tablet 3 0 09/22/2017 07/25/2018 tabletIndications: total) by mouth Hypertension And Chronic daily. Kidney Disease Stage 3 (HCC) predniSONE (DELTASONE) 5 Start 17.5 mg( 3.5 109 tablet 3 01/01/2020 mg tabletIndications: tablets) on September Rheumatoid Arthritis 2017 then 15 With Rheumatoid Factor mg(3 tablets daily) Multiple Sites Without daily for Oct 2017 [employer] then 12.5 mg(2.5 Involvement (HCC) tablets) daily in November . documented as of this encounter Plan of Treatment Not on filedocumented as of this encounter Procedures Procedure Name Priority Date/Time Associated Comments Diagnosis BI BREAST RAD - Routine 01/11/2018 11:08 Screening Results fo r this SCREENING (most inpatients AM CDT Mammogram Breast procedu re are in BILATERAL and all Cancer the results outpatients) section. documented in this encounter Results BI Breast Screening Bilateral (01/11/2018 11:08 AM CDT) Anatomical Region Laterality Modality Breast, Breast Imaging RST LOS, Breast Imaging ARZ LOS, [address] Bilateral Mammography Imaging FLA LOS Specimen (Source) Anatomical Collection Method Collection Time Re ceived Time Location / / Volume Laterality 01/11/2018 11:59 AM CDT Impressions 01/11/2018 12:00 PM CDT IMPRESSION: ??Negative. RECOMMENDATION: ??Annual Screening Mammo gram ASSESSMENT: ??BI-RADS: 1: Negative. Narrative 01/11/2018 12:00 PM CDT EXAM: ??BI BREAST SCREENING BILATERAL Current study was evaluated with a Cloud Direct[employer] HBCS Aided Detection (CAD) system. INDICATION: ??Screening mammogram. COMPARISON: ??Prior exam(s) were availab le and reviewed for comparison. DENSITY: ??b. There are scattered areas of fibroglandular density. FINDINGS: ??No mammographic findings of malignancy. Procedure Note Johnathan Walsh M.D. - 01/11/2018Forma tting of this note might be different from the original. EXAM: BI BREAST SCREENING BILATERAL Current study was evaluated with a [employer] HBCS Aided Detection (CAD) system. INDICATION: Screening mammogram. COMPARISON: Prior exam(s) were available and reviewed for comparison. DENSITY: b. There are scattered areas of fibroglandular density. FINDINGS: No mammographic findings of ma lignancy. IMPRESSION: Negative. RECOMMENDATION: Annual Screening Mammogr am ASSESSMENT: BI-RADS: 1: Negative. Kathy Gibson M.D. IMG BI PROCEDURES documented in this encounter Visit Diagnoses Diagnosis Screening Mammogram Breast Cancer documented in this encounter Care Teams Grease Worker Relationship Specialty Start Date End Date Kathy Gibson M.D. PCP - General Family Medicine 12/15/17 02/24/19 documented as of this encounter
--- OUTSIDE RECORDS SUMMARY | 2022-02-28 01:41 | XMS_ITS | Encounter Summary ---
:1940 Author Organization [facility] Address [address] [place] [address] Care Team Providers Name Role Phone Eliseo Hoffman M.D. Primary Care Provider Encounter Details Date Type Department Care Team Description 09/12/2017 Clinical Communication Department of [facility] Sherry Murray, Medicine, [facility], in [address] [address] [place], [place] [phone] (Work) [phone] Social History Tobacco Use Types Packs/Day Years Used Date Smoking Tobacco: Never Smokeless Tobacco: Never Alcohol Use Standard Drinks/Week Comments No 0 (1 standard drink = 0.6 oz pure alcoho l) Sex Assigned at Date Recorded Female 09/25/2017 1:20 PM CDT documented as of this encounter Miscellaneous Notes Telephone Encounter - Sherry Murray M.D. - 09/12/2017 9:25 AM CDT I called the patient and discussed with her regarding her symptoms. Patient reports she has been dealing with dysuria, urinary frequency, urgency and hematuria for the past 2 days. She feels like she has another urinary tract infection. Patient reports she has dealing with lower extremity swelling since she started methotrexate and cannot barely put her shoes on due to swelling. Explained to patient that I don't think methotrexate will cause peripheral edema, but its likely that peripheral edema is due to high-dose of prednisone that she is currently taking for RA(20 mg). Patient was offered to come to clinic for lab only appointment for dysuria, but she states she knows that she has UTI and wouldprefer to start antibiotic. She has an appointment with me next Monday. I have sent a prescription of Keflex 500 mg twice daily for 7 days to her pharmacy([facility]). Sherry Murray MD Telephone Encounter - Clemencia Sanches L.P.N. - 09/12/2017 8:34 AM CDT Spoke with patient, she states that she has been having a hard time urinating and when she does it parekh sometimes that started yesterday. She also states that her feet are so swollen that she can barely put shoes on, and she has a back ache. She feels that this is all being caused by the new medication that she has been taking. I suggested that she come in to the clinic for an appointment to discussthis with you but she would like you to call and talk with her about this instead. Telephone Encounter - Soheila Jose - 09/12/2017 8:11 AM CDT PT called about the new RX's she started 2 weeks ago. She is having bad side effects. Feet are swollen, back hurts, little blood when she goes to the bathroom. Olease call PT at [phone] documented in this encounter Plan of Treatment Not on filedocumented as of this encounter Visit Diagnoses Not on filedocumented in this encounter Care Teams [facility] Shift Lead Relationship Specialty Start Date End Date Eliseo Hoffman M.D. PCP - General 09/08/16 11/16/[address] [place] [address] THOM[place] Guajardo [id number] documented as of this encounter
--- OUTSIDE RECORDS SUMMARY | 2022-02-28 01:41 | XMS_ITS | Encounter Summary ---
:1940 Author Organization [facility] Address [address] [place] [address] Care Team Providers Name Role Phone Eliseo Hoffman M.D. Primary Care Provider Reason for Visit Outpatient (Routine) - Closed Specialty Diagnoses / Procedures Referred By Contact Refer red To Contact Family Medicine Diagnoses Polymyalgia Rheumatica (HCC) Sherry Murray M.D. [facility] [address] [place] [phone] Referral ID Status Reason Start Date Expiration Date Visits Requ ested Visits Authorized [id number] Closed 08/14/2017 02/10/2018 1 1 Encounter Details Date Type Department Care Team Description 09/14/2017 Office Visit Department of Sherry Padilla Cancel ed (Provider: Shyla Gann M.D. Request) Clinic, in [address] [facility] [address] [place], [place] [phone] (Work) [phone] Social History Tobacco Use Types Packs/Day Years [...] on filedocumented in this encounter Care Teams Strawhat Blocking Operator Relationship Specialty Start Date End Date Eliseo Hoffman M.D. PCP - General 09/08/16 11/16/[address] [place] [address] documented as of this encounter
--- OUTSIDE RECORDS SUMMARY | 2022-02-28 01:41 | XMS_ITS | Encounter Summary ---
:1940 Author Organization [facility] Address [address] [place] [address] Care Team Providers Name Role Phone Terrence Christine M.D. Primary Care Provider Reason for Visit Reason Comments Follow-up catheterizing up to 5x per d ay Urinary Retention Urinary Tract Infection Outpatient (Routine) - Closed Specialty Diagnoses / Procedures Referred By Contact Refer red To Contact Urology Verónica Escalante APRN, C.N.P. [facility] [address] [phone] Referral ID Status Reason Start Date Expiration Date Visits Requ ested Visits Authorized [id number] Closed 11/06/2017 11/06/2018 1 1 Encounter Details Date Type Department Care Team Description 12/04/2017 Office Visit Department of Urology Verónica Escalante, Retention Urinary in [place], C.N.P. (Primary Dx) [address] [phone] Social History Tobacco Use Types Packs/Day Years Used Date Smoking Tobacco: Never Smokeless Tobacco: Never Alcohol Use Standard Drinks/Week Comments No 0 (1 standard drink = 0.6 oz pure alcoho l) Sex Assigned at Date Recorded Female 09/25/2017 1:20 PM CDT documented as of this encounter Last Filed Vital Signs Vital Sign Reading Time Taken Comments Blood Pressure 138/62 12/04/2017 12:48 PM CDT Pulse 60 12/04/2017 12:48 PM CDT Temperature 36.7 ??C (98.1 ??F) 12/04/2017 12:48 PM CDT Respiratory Rate 14 12/04/2017 12:48 PM CDT Oxygen Saturation - - Inhaled Oxygen Concentration - - Weight - - Height - - Body Mass Index - - documented in this encounter Progress Notes Verónica Escalante APRN, CReginaNReginaP. - 12/04/2017 1:30 PM CDT SUBJECTIVE CHIEF COMPLAINT/REASON FOR VISIT Urinary Retention, Self-intermittent Catheterization HISTORY OF PRESENT ILLNESS Zoe is a pleasant 77 year old female here today for a recheck of self intermittent catheterization. 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 She has been performing self intermittent catheterization 4-5 times daily and is doing well. She feels the urge to urinate, for the first time today she was actually able to void a small amount. She denies any symptoms of urinary tract infection. The following portions of the patient's history [...] CV, Respiratory, Musculoskeletal, Neuro, Psych OBJECTIVE Vitals: 12/04/17 1248 BP: 138/62 Patient Position: Sitting Pulse: 60 Temp: 36.7 ??C Resp: 14 TempSrc: Temporal PHYSICAL EXAM Vitals and nursing [...] or ulcerations. ASSESSMENT / PLAN #1 Urinary Retention #2 Self intermittent Catheterization At this time, she will continue self-intermittent catheterization 5 times daily, 150 times per month. She had difficulty obtaining catheters at her local pharmacy and would like to be connected with the mail-order catheter supply company. If she has any signs or symptoms of UTI she will contact us. Otherwise we will see her in approximately 6 months. All of her questions have been answered, she is inagreement with this plan. Signed by: Verónica Escalante APRN, C.N.P. 12/04/2017 12:56 PM documented in this encounter Plan of Treatment Not on filedocumented as of this encounter Visit Diagnoses Diagnosis Retention Urinary - Primary documented in this encounter Care Teams Polisher Apprentice Relationship Specialty Start Date End Date Terrence Christine M.D. PCP - General Internal Medicine 11/17/17 12/14/17 documented as of this encounter
--- OUTSIDE RECORDS SUMMARY | 2022-02-28 01:41 | XMS_ITS | Encounter Summary ---
:1940 Author Organization [facility] Address [address] [place] [address] Care Team Providers Name Role Phone Eliseo Hoffman M.D. 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 [facility] Procedures Rheumatology - Management questions eConsult [address] [place] [phone] Referral ID Status Reason Start Date Expiration Date Visits Requ ested Visits Authorized [id number] Closed 11/12/2017 11/12/2018 1 1 Reason for Visit Reason Comments Blurred Vision Appointment Request (Routine) - Closed Specialty Diagnoses / Procedures Referred By Contact Refer red To Contact Family Medicine Referral ID Status Reason Start Date Expiration Date Visits Requ ested Visits Authorized [id number] Closed 11/07/2017 11/07/2018 1 1 Encounter Details Date Type Department Care Team Description 11/07/2017 Office Visit Department of Family Sherry Murray Rheuma toid Arthritis With Rheumatoid Factor Multiple Sites Without Organ Or Systems Involvement (HCC) (Primary Dx); MedicineShyla M.D. Hypertension And Chronic Kidney Disease Stage 3 (HCC) Clinic, in [address] [facility] [address] [address] [place], [place] [phone] (Work) [phone] Social History Tobacco Use Types Packs/Day Years Used Date Smoking Tobacco: Never Smokeless Tobacco: Never Alcohol Use Standard Drinks/Week Comments No 0 (1 standard drink = 0.6 oz pure alcoho l) Sex Assigned at Date Recorded Female 09/25/2017 1:20 PM CDT documented as of this encounter Last Filed Vital Signs Vital Sign Reading Time Taken Comments Blood Pressure 160/60 11/07/2017 2:09 PM CDT Pulse 80 11/07/2017 2:06 PM CDT Temperature 36.6 ??C (97.9 ??F) 11/07/2017 2:06 PM CDT Respiratory Rate 16 11/07/2017 2:06 PM CDT Oxygen Saturation - - Inhaled Oxygen Concentration - - Weight 74.6 kg (164 lb 9.2 oz) 11/07/2017 2:06 PM CDT Height - - Body Mass Index 30.29 07/04/2017 2:00 PM CDT documented in this encounter Patient Instructions Patient InstructionsSherry Murray M.D. - 11/07/2017 2:30 PM CDT 1. 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 -Will place E-consult for rheumatology to help medication management since you are having side-effect with methotrexate. -Continue prednisone taper( 12.5 mg(2.5 tablets) daily in October 2017 and 2 tablets(10 mg daily) in November 2017. 2. Hypertension And Chronic Kidney Disease Stage 3: Patient has been checking his blood pressure at home and has been less than 140/90. Goal of 150/90. -Continue Diltiazem and furosemide daily -If blood pressure is elevated and above 150/90 then schedule an appointment. documented in this encounter Progress Notes Sherry Murray M.D. - 11/07/2017 2:30 PM CDT DEPARTMENT OF FAMILY [facility]ICINE IN [place] Chief Complaint Chief Complaint Patient presents with ??? Blurred Vision HPI Rheumatoid arthritis: Patient reports she has been taking methotrexate 7.5 mg(3 tablets) every Monday and Folic 1 mg daily. Patient reports her vision has been getting blurry since she started taking methotrexate. Patient is having difficulty with reading books or newspaper. Patient states she did nothave any issues with her vision prior to taking methotrexate. Patient is currently on prednisone taper and has been taking 12.5 mg daily since Oct 25, 2017. Patient states she feels much better and does not have any joint pain. Denies any morning stiffness or joint swelling. Patient had an appointment with eye doctor last month and everything was good. Her eye doctor thinks her blurry vision is due to methotrexate. Patient reports she cannot travel to [place] to see a rheumatology and does not have anyone to drive her there. The following portions of the patient's history were reviewed and updated as appropriate in the EMR:allergies, current medications and problem list on 11/07/17 REVIEW OF SYSTEMS Negative review of major organ systems apart from that noted in the HPI PHSYCIAL EXAM Temperature: 36.6 ??C Resp Rate: 16 Blood Pressure: 160/60 Weight: 74.6 kg Constitutional: She is oriented to person, place, and time. She appears well- developed and well-nourished. No distress. HENT: Head: Normocephalic and atraumatic. Cardiovascular: Normal rate and regular rhythm. No murmur heard. Pulmonary/Chest: Effort normal and breath sounds normal. No respiratory distress. She has no wheezes. She has no rales. Musculoskeletal: Right shoulder: She exhibits normal range of motion, no tenderness and no bony tenderness. Left shoulder: She exhibits normal range of motion, no tenderness and no bony tenderness. Right wrist: She exhibits normal range of motion, no tenderness, no bony tenderness, no swelling and no effusion. Left wrist: She exhibits normal range of motion, no tenderness, no bony tenderness and no swelling. Neurological: She is alert and oriented to person, place, and time. LABS/IMAGING No results found for this or any previous visit (from the past 24 hour(s)). ASSESSMENT AND PLAN Patient Instructions 1. 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 Patient was started on prednisone 20 mg daily, methotrexate 7.5 mg weekly and folic acid 1 mg daily. Patient is currently on prednisone taper and she is taking 12.5 mg daily for the month of Oct and we are going down by 2.5mg every month. Patient has been dealing with blurry vision and has been getting worse. Her eye doctor feels this is due to methotrexate. She is doing well otherwise. She has no symptoms. Denies any joint pain, stiffness or swelling. -Hold off methotrexate and folic acid for now until we hear from rheumatology via E-consult -Will place E-consult for rheumatology to help with medication management since patient is having side-effect with methotrexate. -Continue prednisone taper( 12.5 mg(2.5 tablets) daily in October 2017 and 2 tablets(10 mg daily) in November 2017. 2. Hypertension And Chronic Kidney Disease Stage 3: Patient has been checking her blood pressure at home and has been less than 140/90. Goal of 150/90. -Continue Diltiazem and furosemide daily -If blood pressure is elevated and above 150/90 then schedule an appointment. Options for treatment and follow-up care were reviewed with the patient . Vanessa Andino and/or guardian engaged in the decision making process and verbalized understanding of the options discussed and agreed with the final plan. A total of 25 minutes were spent [id number] with the patient during this encounter and 20 minutes were spent on counseling, discussing the plan and coordination of care. Sherry Murray M.D. documented in this encounter Plan of Treatment Not on filedocumented as of this encounter Visit Diagnoses Diagnosis Rheumatoid Arthritis With Rheumatoid Fac tor Multiple Sites Without Organ Or Systems Involvement (HCC) - Primary Hypertension And Chronic Kidney Disease Stage 3 (HCC) documented in this encounter Care Teams Department [employer] Relationship Specialty Start Date End Date Eliseo Hoffman M.D. PCP - General 09/08/16 11/16/[address] [place] [phone] documented as of this encounter
--- OUTSIDE RECORDS SUMMARY | 2022-02-28 01:41 | XMS_ITS | Encounter Summary ---
:1940 Author Organization [facility] Address [address] [place] [address] Care Team Providers Name Role Phone Kathy Gibson M.D. Primary Care Provider Reason for Visit Reason Onset Date Comments Medicare Annual Wellness Visit 01/05/2018 Encounter Details Date Type Department Care Team Description 01/05/2018 Clinical Communication Department of Carla Rios Annual Community Internal L, R.NRegina Wellness Visit Medicine in [address] [address] [place], [place] [phone] (Work) [phone] Social History Tobacco Use Types Packs/Day Years Used Date Smoking Tobacco: Never Smokeless Tobacco: Never Alcohol Use Standard Drinks/Week Comments No 0 (1 standard drink = 0.6 oz pure alcoho l) Sex Assigned at Date Recorded Female 09/25/2017 1:20 PM CDT documented as of this encounter Miscellaneous Notes Telephone Encounter - Carla Rios R.N. - 01/05/2018 2:48 PM CDT Called patient to discuss scheduling a Medicare Annual Wellness Visit. Patient interested, transferred to scheduling to make appt. documented in this encounter Plan of Treatment Not on filedocumented as of this encounter Visit Diagnoses Not on filedocumented in this encounter Care Teams Outdoor Education Teacher Relationship Specialty Start Date End Date Kathy Gibson M.D. PCP - General Family Medicine 12/15/17 02/24/19 documented as of this encounter
--- OUTSIDE RECORDS SUMMARY | 2022-02-28 01:41 | XMS_ITS | Encounter Summary ---
:1940 Author Organization [facility] Address [address] [place] [address] Care Team Providers Name Role Phone Eliseo Hoffman M.D. Primary Care Provider Encounter Details Date Type Department Care Team Description 10/05/2017 Abstract [facility] THOMAS Aguayo ea Provider, Historical [address] [place] [address] Social History Tobacco Use Types Packs/Day [...] on filedocumented in this encounter Care Teams Development Expert Relationship Specialty Start Date End Date lEiseo Hoffman M.D. PCP - General 09/08/16 11/16/[address] [place] [address] documented as of this encounter
--- OUTSIDE RECORDS SUMMARY | 2022-02-28 01:41 | XMS_ITS | Encounter Summary ---
:1940 Author Organization [facility] Address [address] [place] [address] Care Team Providers Name Role Phone Terrence Christine M.D. Primary Care Provider Reason for Visit Reason Onset Date Comments returning call 12/04/2017 Encounter Details Date Type Department Care Team Description 12/04/2017 Clinical Communication Department of [facility] Mead, returning call MedicineNicolasa M.D. [facility], in [address] [place] [phone] Social History Tobacco Use Types Packs/Day Years Used Date Smoking Tobacco: Never Smokeless Tobacco: Never Alcohol Use Standard Drinks/Week Comments No 0 (1 standard drink = 0.6 oz pure alcoho l) Sex Assigned at Date Recorded Female 09/25/2017 1:20 PM CDT documented as of this encounter Miscellaneous Notes Telephone Encounter - Sheyla Aguilar L.PReginaN. - 12/04/2017 2:43 PM CDT Called pt see other encounter note from today Telephone Encounter - Jeanne Antonio C.MReginaARegina - 12/04/2017 2:41 PM CDT Please advise, there is also another full message on this in the messages :). I'll forward that to you also Telephone Encounter - Kortney Nguyễn - 12/04/2017 2:34 PM CDT Patient returned Nurse call, please call back [phone] documented in this encounter Plan of Treatment Not on filedocumented as of this encounter Visit Diagnoses Not on filedocumented in this encounter Care Teams Recreational Therapist Relationship Specialty Start Date End Date Terrence Christine M.D. PCP - General Internal Medicine 11/17/17 12/14/17 documented as of this encounter
--- OUTSIDE RECORDS SUMMARY | 2022-02-28 01:41 | XMS_ITS | Encounter Summary ---
:1940 Author Organization [facility] Address [address] [place] [address] Care Team Providers Name Role Phone Terrence Christine M.D. Primary Care Provider Encounter Details Date Type Department Care Team Description 12/04/2017 Clinical Communication Department of [facility] Sherry Murray, Medicine, [facility], in [address] [facility] [address] [place], [place] [phone] (Work) [phone] Social History Tobacco Use Types Packs/Day Years Used Date Smoking Tobacco: Never Smokeless Tobacco: Never Alcohol Use Standard Drinks/Week Comments No 0 (1 standard drink = 0.6 oz pure alcoho l) Sex Assigned at Date Recorded Female 09/25/2017 1:20 PM CDT documented as of this encounter Miscellaneous Notes Telephone Encounter - Sherry Murray M.D. - 12/11/2017 1:10 PM CDT I called the patient and discussed with her regarding rheumatology e-consult recommendations. Patient reports her blurry vision resolved when she stopped methotrexate. Reviewed with the patient that rheumatology would like to try new medication(leflunomide 10 mg daily for 4 weeks then increase it to 20 mg daily). Patient will need monthly labs(cbc with diff, AST, creatinine) for the first 3 months once she starts Leflunomide then every 3 months thereafter. Discussed with the patient that our goal isto taper down prednisone. Patient is currently taking 2.5 tablets of prednisone(12.5 mg daily) for the month of November. Goal is to go down by 2.5 mg every month. Prednisone taper down: 2.5 tablets(12.5 mg)-November 2017 2 tablets(10 mg) - December 2017 1.5 tablets( 7.5 mg)- January 2018 Discussed with the patient that I will send a prescription(leflunomide 10 mg daily) to her pharmacy.Advised to schedule an appt with Dr. Gibson in December 2017. Patient verbalized understanding the plan. Sherry Murray MD Telephone Encounter - Sherry Murray M.D. - 12/04/2017 11:37 AM CDT I called the patient but I couldn't leave any voicemail. I will try again this afternoon. Sherry Murray MD documented in this encounter Plan of Treatment Not on filedocumented as of this encounter Visit Diagnoses Not on filedocumented in this encounter Care Teams Knowledge Analyst Relationship Specialty Start Date End Date Terrence Christine M.D. PCP - General Internal Medicine 11/17/17 12/14/17 documented as of this encounter
--- OUTSIDE RECORDS SUMMARY | 2022-02-28 01:41 | XMS_ITS | Encounter Summary ---
:1939 Author Organization [facility] Address [address] [place] [address] Care Team Providers Name Role Phone Kathy Gibson M.D. Primary Care Provider Encounter Details Date Type Department Care Team Description 01/11/2018 Clinical Communication Department of [facility] Mirza Loomis [facility], Shyla Lund R.N. [facility], in [address] [phone] Social History Tobacco Use Types Packs/Day Years Used Date Smoking Tobacco: Never Smokeless Tobacco: Never Alcohol Use Standard Drinks/Week Comments No 0 (1 standard drink = 0.6 oz pure alcoho l) Sex Assigned at Date Recorded Female 09/25/2017 1:20 PM CDT documented as of this encounter Miscellaneous Notes Telephone Encounter - Martha Loomis R.N. - 01/11/2018 10:51 AM CDT Annual wellness visit done today. Patient states she should return to see you after she sees the health evaluator. Her blood pressures today were 176/66, 170/58, pulse 64, resp 16. She is on prednisone. She takes her Blood pressures at home daily and the systolic pressures run in the 140 or 150's. documented in this encounter Plan of Treatment Not on filedocumented as of this encounter Visit Diagnoses Not on filedocumented in this encounter Care Teams Stagecraft Professor Relationship Specialty Start Date End Date Kathy Gibson M.D. PCP - General Family Medicine 12/15/17 02/24/19 documented as of this encounter
--- OUTSIDE RECORDS SUMMARY | 2022-02-28 01:41 | XMS_ITS | Encounter Summary ---
:1939 Author Organization [facility] Address [address] [place] [address] Care Team Providers Name Role Phone Eliseo Hoffman M.D. 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 [facility] Procedures Rheumatology - Management questions eConsult [address] [place] [phone] Referral ID Status Reason Start Date Expiration Date Visits Requ ested Visits Authorized [id number] Closed 11/12/2017 11/12/2018 1 1 Encounter Details Date Type Department Care Team Description 11/13/2017 Internal E-Consult Division of Jen Rosas Rheumat oid Arthritis Rheumatology in [facility] With Rheumatoid [place], [place] [address] [facility] Factor Multiple [address] [place] [address] [place] [address] Or Systems [id number] Involvement ([facility]) Social History Tobacco Use Types Packs/Day Years Used Date Smoking Tobacco: Never Smokeless Tobacco: Never Alcohol Use Standard Drinks/Week Comments No 0 (1 standard drink = 0.6 oz pure alcoho l) Sex Assigned at Date Recorded Female 09/25/2017 1:20 PM CDT documented as of this encounter Consult Notes Jen Rosas M.B.B.S. - 11/13/2017 11:30 AM CDT SUBJECTIVE CHIEF COMPLAINT / REASON FOR CONSULT Vanessa Andino is a 76 y.o. female who was referred by Sherry Murray M.D. for evaluation ofrheumatoid arthritis. HISTORY OF PRESENT ILLNESS This is a virtual consultation. I have reviewed Mrs. Andino's [facility] record available to me electronically. I have not personally interviewed or examined the patient. Mrs. Andino is a 76 year old female with a diagnosis of seropositive rheumatoid arthritis. This was made on the basis of positive serologies, elevated inflammatory markers, polyarticular joint painand morning stiffness. A virtual consult was completed in July 2017 outlining management recommendations. Most recent primary care notes from November 07, 2017 indicate that she has been taking methotrexate 7.5 mg once per week and is on prednisone 12.5 mg per day. She has been seen recently by Ophthalmology elsewhere with concerns for blurry vision which has beenattributed to the side effect of methotrexate. Previous Reports Reviewed:outside records REVIEW OF SYSTEMS Pertinent positives and negatives as documented in the above history of present illness. REVIEW OF SYSTEMS OBJECTIVE PHYSICAL EXAM Physical Exam Documented physical examination findings from November 07, 2017 indicate that there is no tenderness on examination of the peripheral joint Lab: Lab investigations from August 25, 2017 show a normal AST and ALT. Complete blood count was last checked in June 2017 and at that time hemoglobin was normal. There was leukocytosis with a white cell count of 13.1. Platelet count was elevated to 588. The last documented ESR was on August 14 and was elevated at 62. CRP on August 14 was elevated at 22.5. Imaging: Disease Activity ASSESSMENT / PLAN #1 Seropositive rheumatoid arthritis #2 History of blurry vision since starting on methotrexate It is important for Mrs. Andino to establish care with a business office specialist for the purpose of monitoring response to treatment and making adjustments to treatment going forward. If the side effects of blurry vision have correlated with being on methotrexate it would be reasonable to initially hold the next dose of methotrexate to see if this improves. If so then an alternate disease modifying agent may need to be considered. If the blood revision does not improve it would be appropriate to be re-evaluated by Ophthalmology to determine if there may be an alternate explanation. One option for treatment would be leflunomide (10 mg daily for the 1st 4 weeks then increasing to 20 mg daily). The monitoring parameters would be similar to those with initially starting on methotrexate (complete blood count, AST and creatinine monthly for the 1st 3 months and then every 3 months thereafter). It will be important for her to have updated inflammatory markers as well to ensure that these improve once she does start on an alternate disease modifying agent. Recommendations for tapering prednisone as previously outlined would be appropriate to follow through with. documented in this encounter Plan of Treatment Not on filedocumented as of this encounter Visit Diagnoses Diagnosis Rheumatoid Arthritis With Rheumatoid Fac tor Multiple Sites Without Organ Or Systems Involvement (HCC) documented in this encounter Care Teams Vulcanizer Relationship Specialty Start Date End Date Eliseo Hoffman M.D. PCP - General 09/08/16 11/16/[address] [place] [phone] documented as of this encounter
--- OUTSIDE RECORDS SUMMARY | 2022-02-28 01:41 | XMS_ITS | Encounter Summary ---
:1940 Author Organization [facility] Address [address] [place] [id number] Care Team Providers Name Role Phone Eliseo Hoffman M.D. Primary Care Provider Reason for Visit Reason Comments Follow-up Outpatient (Routine) - Closed Specialty Diagnoses / Procedures Referred By Contact Refer red To Contact Family Medicine Diagnoses Polymyalgia Rheumatica (HCC) Sherry Murray M.D. 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 Hypertension And Chronic Kidney Disease Stage 3 (HCC) Clinic, in [address] [address] [place], [place] [phone] (Work) [phone] Social History Tobacco Use Types Packs/Day Years Used Date Smoking Tobacco: Never Smokeless Tobacco: Never Alcohol Use Standard Drinks/Week Comments No 0 (1 standard drink = 0.6 oz pure alcoho l) Sex Assigned at Date Recorded Female 09/25/2017 1:20 PM CDT documented as of this encounter Last Filed Vital Signs Vital Sign Reading Time Taken Comments Blood Pressure 144/62 09/22/2017 1:29 PM CDT Pulse 76 09/22/2017 1:19 PM CDT Temperature 36.7 ??C (98.1 ??F) 09/22/2017 1:19 PM CDT Respiratory Rate - - Oxygen Saturation - - Inhaled Oxygen Concentration - - Weight 72 kg (158 lb 11.7 oz) 09/22/2017 1:19 PM CDT Height - - Body Mass Index 29.21 07/04/2017 2:00 PM CDT documented in this encounter Patient Instructions Patient InstructionsSherry Murray M.D. - 09/22/2017 1:30 PM CDT 1. 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 -Encouraged to call if she develop side-effects related to methotrexate or folic acid - Family Medicine office visit (clinic) - Self - predniSONE (DELTASONE) 5 mg tablet; Start 17.5 mg( 3.5 tablets) on September 24, 2017 then 15 mg(3 tablets daily) daily for Oct 2017 then 12.5 mg(2.5 tablets) daily in November . Dispense: 109 tablet; Refill: 3 2. Urinary retention: Patient was seen on September 16, 2017 for urinary retention and 2000 ml urine output after higginbotham catheter was placed. She has an appointment with urology on Monday. Continue higginbotham catheter until the appointment on Monday. 3. Hypertension And Chronic Kidney Disease Stage 3 - Family Medicine office visit (clinic) - furosemide (LASIX) 40 mg tablet; Take 1 tablet (40 mg total) by mouth daily. Dispense: 90 tablet; Refill: 3 documented in this encounter Progress Notes Sherry Murray M.D. - 09/22/2017 1:30 PM CDT SUBJECTIVE Chief Complaint Chief Complaint Patient presents with ??? Follow-up HPI Rheumatoid arthritis follow-up: Patient is here for RA follow-up. Patient reports she was seen at [facility] emergency department on September 16, 2017. Patient states she notices she was having difficulty with urination and developed generalized body swelling since she was started on methotrexate 7.5 mg weekly and folic 1 mg daily. She has history of urinary retention and has InterStim assistance. Her device was on but did not help with her urinary retention. She took methotrexate 7.5 mg weekly and folic acid for only three weeks. Patient reports she was found to severe urinary retention and higginbotham saeed ter was placed. Based on records from [facility], bladder scan demonstrated over 999 ml [id number] ml of urine output after catheter was placed. Patient states she is feeling better since she stopped methotrexate and folic acid. She feels her symptoms are related to methotrexate and folic. She has an appointment with urology on Monday. She is currently taking prednisone 20 mg daily and feels her joint pain is getting better. Problem list Patient Active Problem List Diagnosis ??? Hypertension And Chronic Kidney Disease Stage 3 ??? Hyperlipidemia Mixed ??? Pain Knee Right ??? Primary Osteoarthritis Knee Right ??? Fatigue ??? Retention Urinary ??? Varicose Vein Lower Extremity With Edema ??? Epicondylitis Medial Right ??? Presence Of Right Artificial Knee Joint ??? 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 ASPIRIN ORAL Take 1 tablet by mouth daily. ??? CALCIUM CARB/VIT D3/MINERALS (CALCIUM-VITAMIN D ORAL) Take 1 tablet by mouth daily. ??? dilTIAZem CD (for_CARDIZEM CD/CARTIA XT) 240 mg 24 hr capsule Take 1 capsule (240 mg total) by mouth every morning. 90 capsule 3 ??? furosemide (for_LASIX) 40 mg tablet Take 0.5 tablets (20 mg total) by mouth every morning. 15 tablet 11 ??? MULTIVITAMIN ORAL Take 1 tablet by mouth daily. ??? folic acid 1 mg tablet Take 1 tablet (1 mg total) by mouth daily. (Patient not taking: Reported on 09/22/2017 ) 90 tablet 3 ??? methotrexate 2.5 mg tablet Take 3 tablets (7.5 mg total) by mouth once a week. (Patient not taking: Reported on 09/22/2017 ) 12 tablet 3 ??? predniSONE (DELTASONE) 5 mg tablet Take 4 tablets (20 mg total) by mouth daily with breakfast. 120 tablet 0 No current facility-administered medications for this visit. Past medical history Past Medical History: Diagnosis Date ??? Cataract ??? Diabetes Mellitus NOS ??? Epicondylitis Medial Right 04/04/2017 ??? Fatigue 08/07/2013 ??? Gallbladder Disorder ??? Hyperlipidemia Mixed ??? Hypertension And Chronic Kidney Disease Stage 3 ??? Polymyalgia Rheumatica (HCC) ??? 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 Retention Urinary 02/01/2016 ??? Varicose Vein Lower Extremity With Edema 08/13/2013 Past surgical history Past Surgical History: Procedure Laterality Date ??? BREAST SURGERY Right 1984 Benign x 2 ??? CATARACT EXTRACTION AND INSERTION OF INTRAOCULAR LENS Bilateral ??? CHOLECYSTECTOMY ??? FLEXIBLE SIGMOIDOSCOPY 11/2003 ??? HYSTERECTOMY ABDOMINAL WITH SALPINGO - OOPHORECTOMY Bilateral 1991 Nonmalignant reasons with associated bladder repair ??? SACRAL NERVE STIMULATOR PLACEMENT 05/04/2016 Advanced trial of InterStim Family History Family History Problem Relation Age of Onset ??? Hypertension Brother ??? Diabetes Brother ??? Coronary artery disease Brother ??? Heart attack Brother In his 40s ??? Cataracts Father ??? Rheum arthritis Mother ??? Stroke Son Due to blood clot. ??? No Known Problems Son Allergies Allergies Allergen Reactions ??? Oxycodone Other (see comments) No reaction listed in [employer] ??? Sulfa (Sulfonamide Antibiotics) Other (see comments) No reaction listed in [employer] SOCIAL HISTORY Social History Social History ??? Marital status: Spouse name: N/A ??? Number of children: 5 ??? Years of education: N/A Occupational History ??? [employer] Social History Main Topics ??? Smoking status: Never Smoker ??? Smokeless tobacco: Never Used ??? Alcohol use No ??? Drug use: No ??? Sexual activity: Not Currently Partners: Male control/ protection: Post-menopausal Other Topics Concern ??? 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 Her from prostate cancer around 1994. REVIEW OF SYSTEMS Negative review of major organ systems apart from that noted in the HPI and the Past Medical/Surgical History. PHSYCIAL EXAM Vitals: 09/22/17 1329 BP: 144/62 Pulse: Temp: Constitutional: She is oriented to person, place, and time. She appears well- developed and well-nourished. No distress. HENT: Head: Normocephalic and atraumatic. Cardiovascular: Normal rate, regular rhythm and normal heart sounds. She exhibits edema. No murmur heard. Pulmonary/Chest: Effort normal and breath sounds normal. No respiratory distress. She has no wheezes. She has no rales. Neurological: She is alert and oriented to person, place, and time. LABS/IMAGING No results found for this or any previous visit (from the past 24 hour(s)). ASSESSMENT AND PLAN Patient Instructions 1. 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 -Encouraged to call if she develop side-effects related to methotrexate or folic acid - Family Medicine office visit (clinic) - Self - predniSONE (DELTASONE) 5 mg tablet; Start 17.5 mg( 3.5 tablets) on September 24, 2017 then 15 mg(3 tablets daily) daily for Oct 2017 then 12.5 mg(2.5 tablets) daily in November . Dispense: 109 tablet; Refill: 3 2. Urinary retention, InterStim assistance: Patient was seen on September 16, 2017 at [facility] emergency department for urinary retention and 2000 ml urine output after higginbotham catheter was placed. She has an appointment with urology on Monday. Continue higginbotham catheter until the appointment on Monday. 3. Hypertension And Chronic Kidney Disease Stage 3: well-controlled. -Continue diltiazem and furosemide - [facility] Medicine office visit (clinic) - furosemide (LASIX) 40 mg tablet; Take 1 tablet (40 mg total) by mouth daily. Dispense: 90 tablet; Refill: 3 Options for treatment and follow-up care were reviewed with the patient . Vanessa Andino and/or guardian engaged in the decision making process and verbalized understanding of the options discussed and agreed with the final plan. A total of 40 minutes were spent [id number] with the patient during this encounter and 30 minutes were spent on counseling, discussing the plan and coordination of care. Sherry Murray M.D. ?? documented in this encounter Plan of Treatment Not on filedocumented as of this encounter Visit Diagnoses Diagnosis Rheumatoid Arthritis With Rheumatoid Fac tor Multiple Sites Without Organ Or Systems Involvement (HCC) - Primary Hypertension And Chronic Kidney Disease Stage 3 (HCC) documented in this encounter Care Teams Field Training Agent Relationship Specialty Start Date End Date Eliseo Hoffman M.D. PCP - General 09/08/16 11/16/[address] [place] [id number] documented as of this encounter
--- OUTSIDE RECORDS SUMMARY | 2022-02-28 01:41 | XMS_ITS | Encounter Summary ---
:1940 Author Organization [facility] Address [address] [place] [address] Care Team Providers Name Role Phone Kathy Gibson M.D. Primary Care Provider Encounter Details Date Type Department Care Team Description 12/15/2017 Clinical Communication Department of Terrence Camacho M.D. [address], in [address] [phone] Social History Tobacco Use Types Packs/Day Years Used Date Smoking Tobacco: Never Smokeless Tobacco: Never Alcohol Use Standard Drinks/Week Comments No 0 (1 standard drink = 0.6 oz pure alcoho l) Sex Assigned at Date Recorded Female 09/25/2017 1:20 PM CDT documented as of this encounter Miscellaneous Notes Telephone Encounter - Cristal Saldivar L.P.NRegina - 12/18/2017 9:46 AM CDT Patient notified. Telephone Encounter - Kathy Gibson M.D. - 12/18/2017 9:36 AM CDT She should consider follow-up prior to discontinuing the methotrexate. Telephone Encounter - Cristal Saldivar L.P.N. - 12/18/2017 9:09 AM CDT Patient says she is switching her PCP to Dr. Gibson. She is taking the med that Dr. Murray prescribed toher but it is upsetting her stomach too much so she is wondering what she should do? She wants to stop taking it. Telephone Encounter - Dacia Matta - 12/15/2017 12:54 PM CDT Patient is calling she has a new prescription that was being calling in by Dr. Murray before she was leaving. Patient isn't sure what the name is but it was new from someone in [place]- please call her back at [phone] today while she has no power at her home - documented in this encounter Plan of Treatment Not on filedocumented as of this encounter Visit Diagnoses Not on filedocumented in this encounter Care Teams Sales Representative Wire Rope Relationship Specialty Start Date End Date Kathy Gibson M.D. PCP - General Family Medicine 12/15/17 02/24/19 documented as of this encounter
--- OUTSIDE RECORDS SUMMARY | 2022-02-28 01:41 | XMS_ITS | Encounter Summary ---
:[address] [facility] Address [address] [place] [address] Care Team Providers Name Role Phone Eliseo Hoffman M.D. Primary Care Provider Reason for Visit Reason Onset Date Comments Communication 11/07/2017 Encounter Details Date Type Department Care Team Description 11/07/2017 Clinical Communication Department of Urology Priti Cintron Communication in [facility] michelle Jain, R.N. [address] [place] [phone] Social History Tobacco Use Types Packs/Day Years Used Date Smoking Tobacco: Never Smokeless Tobacco: Never Alcohol Use Standard Drinks/Week Comments No 0 (1 standard drink = 0.6 oz pure alcoho l) Sex Assigned at Date Recorded Female 09/25/2017 1:20 PM CDT documented as of this encounter Miscellaneous Notes Telephone Encounter - Priti Ramirez RReginaNRegina - 11/07/2017 1:00 PM CDT Patient informed catheter Rx has been faxed to [facility] in [place], verbalized understanding. Telephone Encounter - Priti Ramirez R.N. - 11/07/2017 12:59 PM CDT Faxed DME medical justification and urological supplies to [facility] with confirmation receipt received. Telephone Encounter - Verónica Escalante APRN, C.N.P. - 11/07/2017 12:33 PM CDT Completed please fax Telephone Encounter - Priti Ramirez R.N. - 11/07/2017 12:14 PM CDT Patient called inquiring about Rx for catheter supplies. Patient was at pharmacy and pharmacy informed her they did not receive a prescription. Patient states only has one catheter left. Michael Joseph. documented in this encounter Plan of Treatment Not on filedocumented as of this encounter Visit Diagnoses Not on filedocumented in this encounter Care Teams Health Social Work Professor Relationship Specialty Start Date End Date Eliseo Hoffman M.D. PCP - General 09/08/16 11/16/[address] [place] [phone] documented as of this encounter
--- OUTSIDE RECORDS SUMMARY | 2022-02-28 01:41 | XMS_ITS | Encounter Summary ---
:1940 Author Organization [facility] Address [address] [place] [address] Care Team Providers Name Role Phone Eliseo Hoffman M.D. Primary Care Provider Reason for Referral Outpatient (Routine) - Closed Specialty Diagnoses / Procedures Referred By Contact Refer red To Contact Urology Verónica Escalante APRN, C.N.P. [facility] [address] [place] [phone] Referral ID Status Reason Start Date Expiration Date Visits Requ ested Visits Authorized [id number] Closed 10/09/2017 10/09/2018 1 1 Reason for Visit Reason Comments Urinary Retention patient states she was unabl e to urinate and still has a higginbotham catheter in Outpatient (Routine) - Closed Specialty Diagnoses / Procedures Referred By Contact Carlos quinn To Contact Urology Verónica Escalante APRN, C.N.P. [facility] [address] [place] [phone] Referral ID Status Reason Start Date Expiration Date Visits Requ ested Visits Authorized [id number] Closed 04/03/2017 09/30/2017 1 1 Encounter Details Date Type Department Care Team Description 10/09/2017 Office Visit Department of Urology Verónica Escalante, Retention Urinary in [place], C.N.P. (Primary Dx) [place] [address] [place] [phone] Social History Tobacco Use Types Packs/Day Years Used Date Smoking Tobacco: Never Smokeless Tobacco: Never Alcohol Use Standard Drinks/Week Comments No 0 (1 standard drink = 0.6 oz pure alcoho l) Sex Assigned at Date Recorded Female 09/25/2017 1:20 PM CDT documented as of this encounter Last Filed Vital Signs Vital Sign Reading Time Taken Comments Blood Pressure 160/58 10/09/2017 1:18 PM CDT Pulse 78 10/09/2017 1:18 PM CDT Temperature 36.5 ??C (97.7 ??F) 10/09/2017 1:18 PM CDT Respiratory Rate - - Oxygen Saturation - - Inhaled Oxygen Concentration - - Weight - - Height - - Body Mass Index - - documented in this encounter Progress Notes Verónica Escalante, [facility], C.N.P. - 10/09/2017 1:30 PM CDT SUBJECTIVE CHIEF COMPLAINT/REASON FOR VISIT Chief Complaint Patient presents with ??? Urinary Retention patient states she was unable to urinate and still has a higginbotham catheter in HISTORY OF PRESENT ILLNESS Zoe is a pleasant 76-year-old female here today for a follow-up after urinary retention. Trial of void at her last visit was unsuccessful and she required placement of indwelling Higginbotham catheter again. She is very frustrated with this and is hopeful that she will be able to void. She does have a longhistory of urinary retention and has an InterStim device to assist with urinary retention. The following portions of the patient's history were reviewed and updated as appropriate: allergies,current medications, family history, medical history, social history, surgical history and problem list. REVIEW OF SYSTEMS ENT: Positive for difficulty hearing. Gastrointestinal: Positive for constipation. Genitourinary: Positive for incontinence, difficulty urinating, urgency and frequent urination. Hematologic: Positive for bruises or bleeds easily. The following systems were negative: Constitutional, Skin, Eyes, CV, Respiratory, Musculoskeletal, Neuro, Psych OBJECTIVE Vitals: 10/09/17 1318 BP: 160/58 Patient Position: Sitting Pulse: 78 Temp: 36.5 ??C TempSrc: Temporal PHYSICAL EXAM Vitals and nursing note reviewed. General: Well developed, well nourished, well groomed female in mild distress. Neurological: Alert, cooperative, oriented x3. Appropriate mood and affect. Head: Normal appearance, no abnormalities, normocephalic. Neck: Symmetrical and supple, trachea is midline. Cardiac: regular rate, regular rhythm Respiratory: Respirations are unlabored with normal respiratory rate and normal respiratory movements. Normal chest wall expansion without use of accessory muscles. Abdomen: Soft, non-tender, non-distended Extremities: Warm, without edema or ulcerations. DIAGNOSTIC Postvoid residual 632 mL ASSESSMENT / PLAN #1 Urinary Retention #2 Interstim Device Placement We had an in-depth discussion about her elevated residual of urine. We discussed indwelling Higginbotham catheter verses a self intermittent catheterization. At this time, she prefers to have a Higginbotham catheterplaced. We will see her back in approximately 4 weeks to have this changed. At that time, we will also have another voiding trial to see if she is able to void. We did make changes to her InterStim device. We switched her to program 3 at 2.6. She is able to feel stimulation and we will recheck this at her next visit as well. All of her questions have been answered today and she is in agreement with the plan that we have made. Signed by: Verónica Escalante APRN, C.N.P. 10/09/2017 1:51 PM documented in this encounter Plan of Treatment Scheduled Referrals Name Type Priority Associated Diagnoses Order [facility] Urology office Outpatient Referral Routine Expect ed: visit (clinic) 11/09/2017 (Approximate), Expires: 10/09/2020 documented as of this encounter Visit Diagnoses Diagnosis Retention Urinary - Primary documented in this encounter Care Teams Clerical Associate Relationship Specialty Start Date End Date Eliseo Hoffman M.D. PCP - General 09/08/16 11/16/[address] [place] [address] [place] Guajardo [id number] documented as of this encounter
--- OUTSIDE RECORDS SUMMARY | 2022-02-28 01:41 | XMS_ITS | Encounter Summary ---
:1940 Author Organization [facility] Address [address] [place] [address] Care Team Providers Name Role Phone Kathy Gibson M.D. Primary Care Provider Reason for Visit Reason Comments Medication Visit Appointment Request (Routine) - Closed Specialty Diagnoses / Procedures Referred By Contact Refer red To Contact Family Medicine Referral ID Status Reason Start Date Expiration Date Visits Requ ested Visits Authorized [id number] Closed 12/18/2017 12/18/2018 1 Encounter Details Date Type Department Care Team Description 12/21/2017 Office Visit Department of [facility] Kathy Gibson, Ret ention Urinary (Primary Dx); MedicineShyla M.D. Hypertension And Chronic Kidney Disease Stage 3 ([facility]); Clinic, in [address] Hyperlipidemia Mixed; [place], [place] Fatigue; [address] [address] Varicose Vein Lower Extremity Bilateral; [place], [place] [phone] Obesity Body M ass Index 30-39.9 Adult; [id number] (Work) Diabetes Mellitus Type 2 ([facility]); [phone] Neurogenic Blad bibiana; (Fax) Arthroplasty To cassie Knee Replacement Status Post Left; Gastroesophagea l Reflux Disease; Arthritis Rheum atoid ([facility]) Social History Tobacco Use Types Packs/Day Years Used Date Smoking Tobacco: Never Smokeless Tobacco: Never Alcohol Use Standard Drinks/Week Comments No 0 (1 standard drink = 0.6 oz pure alcoho l) Sex Assigned at Date Recorded Female 09/25/2017 1:20 PM CDT documented as of this encounter Last Filed Vital Signs Vital Sign Reading Time Taken Comments Blood Pressure 150/66 12/21/2017 10:33 AM CDT Pulse 76 12/21/2017 10:10 AM CDT Temperature 36.5 ??C (97.7 ??F) 12/21/2017 10:10 AM CDT Respiratory Rate 12 12/21/2017 10:10 AM CDT Oxygen Saturation - - Inhaled Oxygen Concentration - - Weight 76.3 kg (168 lb 3.4 oz) 12/21/2017 10:10 AM CDT Height - - Body Mass Index 30.95 07/04/2017 2:00 PM CDT documented in this encounter Progress Notes Kathy Gibson M.D. - 12/21/2017 10:15 AM CDT CHIEF COMPLAINT/REASON FOR VISIT Multiple issues HISTORY OF PRESENT ILLNESS This 77-year-old female presents to the clinic secondary to multiple issues. She is recently diagnosed with rheumatoid arthritis. She has trialed methotrexate and leflunomide, both with side effects. She has not had an appointment arranged to see meat press operator. She is not interested in driving to [place], but she does have a family member who will drive her to the [facility].?? She has been having more heartburn for which she takes Rolaids daily with some relief. She episodically will have a sensation of fevers and chills in the middle of the night which will slowly resolve and leave her feeling fatigued the next day on and off since her knee surgery. She has not sought evaluation for this issue during 1 of the spells. She recently saw urology specialist December 04, 2017 secondary to her urinary retention and neurogenic bladder aggravated by her recent knee surgery. She does episodic straight caths. Follow-up is planned for 6 months. She had a stable ophthalmological evaluation September 2017.She has a history of diabetes mellitus diet controlled. She has a history of polymyalgia rheumatica and has been on long-standing prednisone. She is planning to get her flu shot at the pharmacy next month. She had followed with Dr. Hobbs who was no longer in the clinic. She is not short of breath. She is having no palpitations. She is having no change in her bowel regimen. EMR reviewed. MEDICATIONS RECONCILIATION? Current Outpatient Prescriptions: ??? ASPIRIN ORAL, Take [...] then 12.5 mg(2.5 tablets) daily in November ., Disp: 109 tablet, Rfl: 3 ??? raNITIdine (ZANTAC) 150 mg tablet, Take 1 tablet (150 mg total) by mouth 2 (two) times a day., Disp: 60 tablet, Rfl: 0 Allergies Allergen Reactions ??? Oxycodone Other (see comments) No reaction listed in [employer] ??? Sulfa (Sulfonamide Antibiotics) Other (see comments) No reaction listed in [employer] REVIEW OF SYSTEMS CONSTITUTIONAL: No fevers, chills, night sweats, or weight change.?? EYES: No difficulties with blurred vision.?? ENT: No hearing loss or oral problems.?? CARDIOVASCULAR: No chest pain, palpitations, edema or true claudication.?? RESPIRATORY: No cough, wheeze, hemoptysis or shortness of breath.?? GASTR OINTESTINAL: No abdominal pain, hematemesis, melena, dysphagia or change in bowel habits.?? GENITOURINARY: No nocturia, hematuria, incontinence or dysuria.?? MUSCULOSKELETAL: No joint pain, swelling, stiffness or obvious deformities.?? INTEGUMENTARY: No rashes or pruritus.?? NEURO: No seizures or syncopal events.? PSYCHIATRIC: No history of anxiety or depression.?? No problems with sleep.?? ENDOCRINE: No history of diabetes or thyroid problems.?? HEMATOLOGIC/LYMPHATIC: No history of anemia or bleeding.?? ALLERGIC/IMMUNOLOGIC: Please see above Past Medical History: Diagnosis Date ??? Cataract [...] PLACEMENT 05/04/2016 Advanced trial of InterStim PREVENTIVE SERVICES: Tobacco none Mammogram 01/09/2017 planning to update in the near future Pap smear nonapplicable secondary to stated age Colon screen 11/19/[address] Dominguez low risk Depression no Asthma no Lipids 12/26/2016 increased Tdap 02/03/2016 Pneumovax 07/09/2005 Prevnar 01/19/2015 Influenza 02/06/2017 DEXA scan 07/18/2005 SOCIAL HISTORY Alcohol none Caffeine a cup of coffee each day Family History Problem Relation Age of Onset ??? Hypertension Brother ??? Diabetes Brother ??? Coronary artery disease Brother ??? Heart attack Brother In his 40s ??? Cataracts Father ??? Rheum arthritis Mother ??? Stroke Son Due to blood clot. ??? No Known Problems Son Vitals: 12/21/17 1010 12/21/17 1011 12/21/17 1033 BP: (!) 170/74 (!) 168/70 150/66 Patient Position: Sitting Sitting Sitting Pulse: 76 Temp: 36.5 ??C Resp: 12 Weight: 76.3 kg TempSrc: Temporal Repeat blood pressure 150/66 PHYSICAL EXAMINATION GENERAL:?? Neatly dressed.?? Well groo despite hearing in med. HEAD:?? No evidence of trauma, tenderness or masses.?? EYES: ??PERRL.?? Full EOM.?? Funduscopic examgrossly normal.??ENT:?? Ears: Tympanic membranes are jacobsen.?? Subjectively slightly decreased hearing, despite hearing aids.?? Nose: Mucosal membranes pink and moist.?? Septum is midline.?? Oral: No exudates.?? Teeth in fair condition with a large amount of dental work.?? No pharyngeal erythema.?? Neck: Range of motion consistent with patient's stated age body habitus. Trachea midline.?? LYMPH NODES:?? No cervical or femoral adenopathy.?? THYROID:?? No thyroid masses, tenderness or enlargement. HEART:?? Regular rate and rhythm.? No clicks, rubs or murmurs.?? LUNGS:?? Clear to auscultation.?? No palpable chest wall masses.?? ABDOMEN:?? Soft, nontender, bowel sounds present, no organomegaly although exam is somewhat limited secondary to body habitus.?? EXTREMITIES:?? Right ankle edema 2+ in nature. Healed incision site on the right knee. Obvious degenerative changes of major and minor joints. Bilateral lower extremity varicosities with no evidence ofthrombosis. MENTAL:?? Oriented times three. NEURO:?? Reflexes 2+ triceps, biceps, knees and ankles. ASSESSMENT/PLAN 1. Rheumatoid arthritis new onset with medication intolerance with treatment in process 2. History of PMR currently stable-steroid dependent 3. Hypertension superimposed on chronic renal disease stage III-with elevation noted today, multifactorial in nature with evaluation in process 4. Obesity-progressive 5. Diabetes mellitus type 2 dietary control 6. Urinary retention superimposed on neurogenic bladder with a multifactorial etiology 7. Total knee arthroplasty with postop bladder issues with treatment in process 8. GERD with treatment in process 9. Lower extremity bilateral varicosities-progressive 10. Chronic fatigue multifactorial 11. Mixed hyperlipidemia-stable Supportive measures discussed in detail. Reviewed her recent laboratory evaluations and evaluations with other providers. Will not begin any other rheumatologic medications secondary to her increased side effects as well as her ongoing use of prednisone at this time. Will arrange for follow-up with [facility] umatologist appointment is scheduled with Dr. Nunez January 24, 2018. Continue close follow-upwith her other specialty care providers. Update immunizations as planned. Risks and benefits of medications discussed. All questions answered. Signs and symptoms to lead to emergent evaluation are revie wed. See the medication reconciliation and preventive services. She will consider her options. Spent20 of the 35 minute visit in discussion. documented in this encounter Plan of Treatment Not on filedocumented as of this encounter Visit Diagnoses Diagnosis Retention Urinary - Primary Hypertension And Chronic Kidney Disease Stage 3 ([facility]) Hyperlipidemia Mixed Fatigue Varicose Vein Lower Extremity Bilateral Obesity Body Mass Index 30-39.9 Adult Diabetes Mellitus Type 2 ([facility]) Neurogenic Bladder Arthroplasty Total Knee Replacement Stat us Post Left Gastroesophageal Reflux Disease Arthritis Rheumatoid ([facility]) documented in this encounter Care Teams Paperhanger Apprentice Relationship Specialty Start Date End Date Kathy Gibson M.D. PCP - General Family Medicine 12/15/17 02/24/19 documented as of this encounter
--- OUTSIDE RECORDS SUMMARY | 2022-02-28 01:41 | XMS_ITS | Encounter Summary ---
:1940 Author Organization [facility] Address [address] [place] [address] Care Team Providers Name Role Phone Kathy Gibson M.D. Primary Care Provider Encounter Details Date Type Department Care Team Description 01/08/2018 Orders Only Department of Family Stacey Gibson M.D. Medicine, [facility], [address] [place] [address] [address] [place] [address] [phone] Social History Tobacco Use Types Packs/Day Years [...] filedocumented in this encounter Care Teams Statistics Professor Relationship Specialty Start Date End Date Kathy Gibson M.D. PCP - General Family Medicine 12/15/17 02/24/19 documented as of this encounter
--- OUTSIDE RECORDS SUMMARY | 2022-02-28 01:41 | XMS_ITS | Encounter Summary ---
:1940 Author Organization [facility] Address [address] [place] [address] Care Team Providers Name Role Phone Eliseo Hoffman M.D. Primary Care Provider Encounter Details Date Type Department Care Team Description 09/12/2017 Orders Only Department of [facility] Sherry Murray, Infect ion Urinary Tract Medicine, Shyla Soria (Primary Dx) Clinic, in [place], [address] [place] [address] [address] [address] [address] [place], [place] [phone] (Work) [phone] Social History Tobacco Use Types Packs/Day Years Used Date Smoking Tobacco: Never Smokeless Tobacco: Never Alcohol Use Standard Drinks/Week Comments No 0 (1 standard drink = 0.6 oz pure alcoho l) Sex Assigned at Date Recorded Female 09/25/2017 1:20 PM CDT documented as of this encounter Plan of Treatment Not on filedocumented as of this encounter Visit Diagnoses Diagnosis Infection Urinary Tract - Primary documented in this encounter Care Teams Powerhouse Laborer Relationship Specialty Start Date End Date Eliseo Hoffman M.D. PCP - General 09/08/16 11/16/[address] [place] [address] documented as of this encounter
--- OUTSIDE RECORDS SUMMARY | 2022-02-28 01:41 | XMS_ITS | Encounter Summary ---
:1940 Author Organization [facility] Address [address] [place] [address] Care Team Providers Name Role Phone Eliseo Hoffman M.D. Primary Care Provider Reason for Visit Reason Onset Date Comments Medication Question 09/22/2017 pharm needs clarific ation on med Encounter Details Date Type Department Care Team Description 09/22/2017 Clinical Communication Department of Sherry Murray, Med ication Question Family MedicineEstella (pharm needs [facility], [address] [place] [address] clarification on med) in [facility] [phone] [address] [place], [place] (Work) [phone] Social History Tobacco Use Types Packs/Day Years Used Date Smoking Tobacco: Never Smokeless Tobacco: Never Alcohol Use Standard Drinks/Week Comments No 0 (1 standard drink = 0.6 oz pure alcoho l) Sex Assigned at Date Recorded Female 09/25/2017 1:20 PM CDT documented as of this encounter Miscellaneous Notes Telephone Encounter - Nissa Martines, L.P.N. - 09/22/2017 2:26 PM CDT Clarified prednisone script with pharmacist Telephone Encounter - Pat Schmid - 09/22/2017 2:10 PM CDT [facility] called for clarification on rx, Perdisone. Please call [phone] documented in this encounter Plan of Treatment Not on filedocumented as of this encounter Visit Diagnoses Not on filedocumented in this encounter Care Teams Natural Resources Extension Educator Relationship Specialty Start Date End Date Eliseo Hoffman M.D. PCP - General 09/08/16 11/16/17 [address] [place] [address] documented as of this encounter
--- OUTSIDE RECORDS SUMMARY | 2022-02-28 01:41 | XMS_ITS | Encounter Summary ---
:1940 Author Organization [facility] Address [address] [place] [address] Care Team Providers Name Role Phone Kathy Gibson M.D. Primary Care Provider Reason for Visit Reason Onset Date Comments Post Hospital Follow-up 02/05/2018 Encounter Details Date Type Department Care Team Description 02/05/2018 Clinical Communication Department of Kathy Gibson [facility] Family MedicineMonse M.D. Follow-up [facility], in [address] [place] [address] [address] [address] [place], [place] [phone] (Work) [phone] Social History Tobacco Use Types Packs/Day Years Used Date Smoking Tobacco: Never Smokeless Tobacco: Never Alcohol Use Standard Drinks/Week Comments No 0 (1 standard drink = 0.6 oz pure alcoho l) Sex Assigned at Date Recorded Female 09/25/2017 1:20 PM CDT documented as of this encounter Miscellaneous Notes Telephone Encounter - Carla Rios R.N. - 02/05/2018 8:37 AM CST Not a TCM, patient not discharged from [facility] or [place]. Does not qualify. ETIC TAPE COMPOSER OPERATOR Telephone Encounter - Giselle Cabrera - 02/05/2018 8:16 AM CST Post Hospital F/up Appt date: 02/07/2018 Discharged: 02/03/2018 Diagnosis: Bladder infection ETIC TAPE COMPOSER OPERATOR documented in this encounter Plan of Treatment Not on filedocumented as of this encounter Visit Diagnoses Not on filedocumented in this encounter Care Teams Back Shoe Worker Relationship Specialty Start Date End Date Kathy Gibson M.D. PCP - General Family Medicine 12/15/17 02/24/19 documented as of this encounter
--- OUTSIDE RECORDS SUMMARY | 2022-02-28 01:41 | XMS_ITS | Encounter Summary ---
:1940 Author Organization [facility] Address [address] [place] [address] Care Team Providers Name Role Phone Terrence Christine M.D. Primary Care Provider Reason for Visit Reason Onset Date Comments Communication 12/07/2017 Encounter Details Date Type Department Care Team Description 12/07/2017 Clinical Communication Department of Urology Priti Cintron Communication in [facility] michelle Jain, R.N. [address] [place] [phone] Social History Tobacco Use Types Packs/Day Years Used Date Smoking Tobacco: Never Smokeless Tobacco: Never Alcohol Use Standard Drinks/Week Comments No 0 (1 standard drink = 0.6 oz pure alcoho l) Sex Assigned at Date Recorded Female 09/25/2017 1:20 PM CDT documented as of this encounter Miscellaneous Notes Telephone Encounter - Priti Ramirez RPietro - 12/07/2017 11:13 AM CDT DME medical justification and urological supplies and [employer] form has been faxed with confirmation receipt received. documented in this encounter Plan of Treatment Not on filedocumented as of this encounter Visit Diagnoses Not on filedocumented in this encounter Care Teams Narrow Gauge Operator Relationship Specialty Start Date End Date Terrence Christine M.D. PCP - General Internal Medicine 11/17/17 12/14/17 documented as of this encounter
--- OUTSIDE RECORDS SUMMARY | 2022-02-28 01:41 | XMS_ITS | Encounter Summary ---
:1940 Author Organization [facility] Address [address] [place] [address] Care Team Providers Name Role Phone Eliseo Hoffman M.D. Primary Care Provider Reason for Visit Reason Onset Date Comments Communication 09/26/2017 Encounter Details Date Type Department Care Team Description 09/26/2017 Clinical Communication Department of Urology Priti Cintron Communication in [facility] michelle Jain, R.N. [address] [place] [phone] Social History Tobacco Use Types Packs/Day Years Used Date Smoking Tobacco: Never Smokeless Tobacco: Never Alcohol Use Standard Drinks/Week Comments No 0 (1 standard drink = 0.6 oz pure alcoho l) Sex Assigned at Date Recorded Female 09/25/2017 1:20 PM CDT documented as of this encounter Miscellaneous Notes Telephone Encounter - Priti Ramirez RPietro - 09/26/2017 1:54 PM CDT Patient will keep indwelling catheter in place and plan prior arranged appointment of 10/09/17. Telephone Encounter - Verónica Escalante APRN, C.N.P. - 09/26/2017 1:37 PM CDT If she would like to discuss self intermittent catheterization prior to her upcoming visit, she can make an appointment. Otherwise, I will see her again on October 09 and we can discuss this further at that time. Telephone Encounter - Priti Ramirez R.N. - 09/26/2017 11:37 AM CDT Patient called urology phone line and left message stating went to the emergency room last night and had a catheter placed. Patient was called back. Patient states just couldn't go on my own; hurt so back; backache, pain infront they put in a catheter and got 1900 out. Patient currently has an indwelling catheter. Last visit, 09/25/17 with Provider Ava notes discussion with self cath and indwelling catheter. Patient then states I'm not a big fan of self cath but will think about it . Upcoming appointment 10/09/17 with Provider Ava. documented in this encounter Plan of Treatment Not on filedocumented as of this encounter Visit Diagnoses Not on filedocumented in this encounter Care Teams In School Suspension Coordinator Relationship Specialty Start Date End Date Eliseo Hoffman M.D. PCP - General 09/08/16 11/16/[address] [place] [address] documented as of this encounter
--- OUTSIDE RECORDS SUMMARY | 2022-02-28 01:41 | XMS_ITS | Encounter Summary ---
:1939 Author Organization [facility] Address [address] [place] [address] Care Team Providers Name Role Phone Kathy Gibson M.D. Primary Care Provider Encounter Details Date Type Department Care Team Description 12/12/2017 Orders Only Department of Family Stacey Gibson M.D. Medicine, [facility], [address] [place] [address] [address] [facility] [place] [address] [phone] Social History Tobacco Use Types Packs/Day Years [...] on filedocumented in this encounter Care Teams Mail Order Biller Relationship Specialty Start Date End Date Kathy Gibson M.D. PCP - General Family Medicine 12/15/17 02/24/19 documented as of this encounter
--- OUTSIDE RECORDS SUMMARY | 2022-02-28 01:41 | XMS_ITS | Encounter Summary ---
:1940 Author Organization [facility] Address [address] [place] [address] Care Team Providers Name Role Phone Eliseo Hoffman M.D. Primary Care Provider Reason for Visit Reason Onset Date Comments followup injection 08/29/2017 Encounter Details Date Type Department Care Team Description 08/29/2017 Clinical Communication Department of Ignacio Mead fo llowup injection Orthopedic Surgery [facility] in [address] [place] [phone] Social History Tobacco Use Types Packs/Day Years Used Date Smoking Tobacco: Never Smokeless Tobacco: Never Alcohol Use Standard Drinks/Week Comments No 0 (1 standard drink = 0.6 oz pure alcoho l) Sex Assigned at Date Recorded Female 09/25/2017 1:20 PM CDT documented as of this encounter Miscellaneous Notes Telephone Encounter - Sheyla Aguilar LReginaP.N. - 08/29/2017 9:19 AM CDT Called pt for followup of left knee cortisone injection done on 08/22/[address] Mead, pt reports that she has had no pain since injection. documented in this encounter Plan of Treatment Not on filedocumented as of this encounter Visit Diagnoses Not on filedocumented in this encounter Care Teams Telepathist Relationship Specialty Start Date End Date Eliseo Hoffman M.D. PCP - General 09/08/16 11/16/[address] [place] [address] Ijeoma [place], [place] [address] documented as of this encounter
--- NOTE | 2022-02-28 01:42 | CRLHL7_ITS ---
For Patients: As a result of the Century Cures Act, medical imaging exams and procedure reports are released immediately into your electronic medical record. You may view this report before your referring provider. If you have questions, please contact your health care provider. INDICATION: COVID positive, elevated D-dimer, hypoxia TECHNIQUE: CT chest pulmonary PE protocol acquired with 95 cc Isovue 370 IV contrast. COMPARISON: Chest CT December 17, 2021. This is under FINDINGS: Cardiovascular structures: Normal vascular enhancement of the pulmonary arteries, no sign of pulmonary embolism. Cardiomegaly. No sign of aneurysm in the thoracic aorta. Mediastinum and andres: No mass or adenopathy. Right thyroid lobe nodule measuring 2.4 cm in diameter. This has already been biopsied by ultrasound. Lungs: New ground-glass opacities in the right lung. 1.5 x 1.7 cm pulmonary mass in the right middle lobe, stable. 1.4 by 1.3 cm pulmonary nodule in the right lower lobe, previously 0.9 x 0.8 cm. Pleura and pericardium: Small right pleural effusion. Chest wall and axilla: No mass or adenopathy. Upper abdomen: Unremarkable. Bones: Internal fixation hardware in the proximal left humerus. Increased kyphosis of the thoracic spine. IMPRESSION: No pulmonary embolism. New ground-glass opacities in the right lung may represent COVID pneumonia. Stable pulmonary mass in the right upper middle lobe. Interval increase in size of pulmonary mass in the right lower lobe. PET-CT or CT-guided biopsy of these nodules would be useful for further evaluation. Small right pleural effusion. Right thyroid lobe nodule. This has already been biopsied. Correlate with biopsy results. Cardiomegaly. Please note that all CT scans at this facility use dose modulation, iterative reconstruction, and/or weight-based dosing when appropriate to reduce radiation dose to as low as reasonably achievable. Dictated by Kortney Ross MD @ 02/28/2022 3:57:07 AM (Electronically Signed)
--- OUTSIDE RECORDS SUMMARY | 2022-02-28 01:42 | XMS_ITS | Encounter Summary ---
:1940 Author Organization [facility] Address [address] [place] [address] Care Team Providers Name Role Phone Eliseo Hoffman M.D. 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 Comments Follow-up Hypertension Knee Pain Right knee pain last injecti on 02/23/17 Outpatient (Routine) - Closed Specialty Diagnoses / Procedures Referred By Contact Refer red To Contact [facility] Eliseo Hoffman [facility] Medicine [address] [place] [address] Referral ID Status Reason Start Date Expiration Date Visits Requ ested Visits Authorized [id number] Closed 05/04/2017 10/31/2017 1 1 Encounter Details Date Type Department Care Team Description 05/31/2017 Office Visit Department of Eliseo Hoffman Pain Knee R ight (Primary Dx); [facility] [place] Varela Hypertension And Chronic Kidney Disease Stage 3 (HCC); Medicine in [address] Polymyalgia Rheumatica (HCC) [place], [place] [address] [facility] [id number] [place] [phone] (Work) [phone] Social History Tobacco Use Types Packs/Day Years Used Date Smoking Tobacco: Never Smokeless Tobacco: Never Alcohol Use Standard Drinks/Week Comments No 0 (1 standard drink = 0.6 oz pure alcoho l) Sex Assigned at Date Recorded Female 09/25/2017 1:20 PM CDT documented as of this encounter Last Filed Vital Signs Vital Sign Reading Time Taken Comments Blood Pressure 206/74 05/31/2017 3:43 PM [employer]Y C[employer] WORKER Pulse 100 05/31/2017 3:36 PM [employer] C[employer] WORKER Temperature 37.6 ??C (99.7 ??F) 05/31/2017 3:36 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 - 05/31/2017 12:00 AM CST SUBJECTIVE CHIEF COMPLAINT/REASON FOR VISIT Swollen right knee and other issues. HISTORY OF PRESENT ILLNESS Patient has developed an acutely swollen right knee. It is very tender and painful for her. She did not know what to do. It makes her blood pressure go up, and her blood pressure certainly does go up. She has been intolerant of virtually every pill we try, and she cannot take the Cardura because she gets swelling in her legs, which is a side effect I have never heard of with Cardura. In any event, she was able to take clonidine. It was only that she had hallucinations at night, and then we had her up at one point to 0.3 mg. I will try her at 0.1 mg because she was able to tolerate half of that at 0.15. We have to get her on something. We will have to see her weekly until the blood pressure comes under control. She had prednisone 5 mg from her polymyalgia at home, and she took 5, and the pain is manageable today. The computer has changed, and we cannot really do joint injections until I get the computer fixed for the macro charge capture and so on, so I will temporize with prednisone and have her come back next week. I am going to get the computer fixed to this tomorrow and will inject in 1 week when she comes back, and then she can come off the prednisone. She tapered down to 1 mg, was going to come off prednisone completely for her PMR, which has been under control, but the flare of pain inthe knee caused her to go to a 5 mg pill she had at home, and that did work. CURRENT MEDICATIONS Per EMR. ALLERGIES/CONTRAINDICATIONS Per EMR. MEDICAL HISTORY Significant for: 1. 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 2. Degenerative arthritis in both knees. 3. Polymyalgia rheumatica. 4. 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 5. 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 6. Mixed hyperlipidemia. 7. Hyperglycemia exacerbated by steroids. SOCIAL HISTORY She is . She does not smoke or drink. OBJECTIVE PHYSICAL EXAMINATION Vital Signs: Temperature is 37.6, heart rate 96 on one check, then 100 on another. Blood pressure 206/74, weight 70.6, respiratory rate 16, O2 saturation 96%. HEENT: Eyes: Conjunctivae and lids normal. Pupils equal, round, reactive to light and accommodation.Extraocular movements normal. Sclerae nonicteric. Ophthalmologic exam grossly normal. ENT: Tympanic membranes look okay bilaterally. Nares without erythema or congestion. Mouth without erythema or exudate, no leuko or erythroplakia. Neck: Supple, no adenopathy or thyromegaly. Carotid upstrokes brisk, no bruits. Chest: Lung mitchell clear to auscultation and percussion with normal respiratory rate and effort. Cardiac: Central venous pressure is normal at 7 to 8 cm of water or less; there is a normal systoliccollapse of the jugular venous pulse; there is not a positive hepatojugular reflex. Heart tones are in sinus rhythm; S1 and S2 normal, physiologic splitting of the second heart tone, no third or fourthsound, no significant murmur, no gallop. Abdomen: Soft, nondistended. No organomegaly. No focal mass or tenderness. Extremities: Warm, dry, noncyanotic. She has swelling in her right knee, and it is obviously painfulto push over the joint sutures and move it. Neurologic: She is alert, oriented and grossly nonfocal. ASSESSMENT / PLAN #1 She has hypertension that is significant Will have to see her weekly until it is improved. Patient will go on clonidine 0.1 mg at bedtime today, maintaining her furosemide 40 mg a day and her diltiazem, Cartia XT 240 mg once a day. Her medicines are very simple, just prednisone 5 mg a day for 7 days. Then I will inject the knee, and she willstop prednisone altogether. Multivitamin once a day, Lasix 40 mg a day, Cardizem CD 240 mg a day, clonidine 0.1 mg at bedtime, calcium with D once a day and baby aspirin once a day. She is adamant about having a knee x-ray done, although there is no trauma, and it is going to show bland degenerative arthritis, but I will order that for her. #2 Pain in the right knee She will take prednisone 5 mg for 7 days, and when she returns in 1 week, I will inject the knee. #3 Polymyalgia rheumatica She had gotten down to 1 mg of prednisone before she had to go up to 5. In 1 week when I inject corticosteroid, she will stop prednisone altogether. 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 PCP - General 09/08/16 11/16/[address] [place] [address] [place] [address] documented as of this encounter
--- OUTSIDE RECORDS SUMMARY | 2022-02-28 01:42 | XMS_ITS | Encounter Summary ---
:1940 Author Organization [facility] Address [address] [place] [address] Care Team Providers Name Role Phone Eliseo Hoffman M.D. Primary Care Provider Encounter Details Date Type Department Care Team Description 08/22/2017 Hospital Encounter Department of Ignacio Mead Primar y Osteoarthritis Radiology in M.DRegina Knee Right [place], [address] [facility], [facility] [address] [place], [place] [phone] Social History Tobacco Use Types Packs/Day [...] 1 tablet by 0 01/11/2010 mouth daily. ASPIRIN ORAL Take 1 tablet by 0 08/02/20162018 mouth daily. dilTIAZem CD Take 1 capsule (240 90 capsule 3 07/04/201709/2018 (for_CARDIZEM CD/CARTIA mg total) by mouth XT) 240 mg 24 hr capsule every morning. docusate sodium (COLACE) Take 100 mg by 0 018 08/25/2017 100 mg capsule mouth. furosemide (for_LASIX) 40 Take 0.5 tablets 15 tablet 11 06/2509/22/2017 mg tablet (20 mg total) by mouth every morning. polyethylene glycol Take 1 packet (17 g 30 packet 0 018 08/25/2017 (MIRALAX) 17 gram powder total) by mouth 2 packetIndications: Drug (two) times a day. Induced Constipation predniSONE (DELTASONE) 5 Take 4 tablets (20 120 tablet 0 09/22/2017 mg tabletIndications: mg total) by mouth Polymyalgia Rheumatica daily with (HCC) breakfast. tiZANidine (ZANAFLEX) 2 Take 1 tablet (2 mg 30 tablet 0 08/25/2017 mg tabletIndications: total) by mouth at Arthroplasty Total Knee bedtime as needed Replacement Status Post for muscle spasms. Right documented as of this encounter Plan of Treatment Not on filedocumented as of this encounter Procedures Procedure Name Priority Date/Time Associated Diagnosis Comme nts DX KNEE RIGHT 3 RAD - Routine 08/22/2017 12:42 Primary Results for VIEWS (most inpatients PM CDT Osteoarthritis Knee this procedure and all Right are in the outpatients) results section. documented in this encounter Results DX Knee Right 3 Views (08/22/2017 12:42 PM CDT) Anatomical Region Laterality Modality Lower Extremity, Knee, Musculoskeletal RST LOS Right Computed Radiography Specimen (Source) Anatomical Collection Method Collection Time Re ceived Time Location / / Volume Laterality 08/22/2017 1:40 PM CDT Impressions 08/22/2017 1:41 PM CDT IMPRESSION: Right total knee arthroplast y. Narrative 08/22/2017 1:41 PM CDT EXAM: DX KNEE RIGHT 3 VIEWS COMPARISON: 07/12/2017 FINDINGS: Right total knee arthroplasty with patellar resurfacing, unchanged. No apparent hardware complication. ??Sof t tissue swelling and moderate right knee joint effusion. ??Mild degenerative jennings ge left knee. Procedure Note David Knott M.D. - 08/22/2017Formatti ng of this note might be different from the original. EXAM: DX KNEE RIGHT 3 VIEWS COMPARISON: 07/12/2017 FINDINGS: Right total knee arthroplasty with patellar resurfacing, unchanged. No apparent hardware complication. Soft tissue swelling and moderate right knee joint effusion. Mild degenerative change left knee. IMPRESSION: Right total knee arthroplast y. Anthony Alyce M.D. 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 PCP - General 09/08/16 11/16/[address] [place] [id number] documented as of this encounter
--- OUTSIDE RECORDS SUMMARY | 2022-02-28 01:42 | XMS_ITS | Encounter Summary ---
:1940 Author Organization [facility] Address [address] [place] [address] Care Team Providers Name Role Phone Eliseo Hoffman M.D. Primary Care Provider Reason for Visit Reason Comments Pre-op Exam right total knee replacement with Dr. Mead at [facility] on 07/12/2017 Arthritis patient had prednisone at [facility] at starting taking 5mg daily three days ago Outpatient (Routine) - Closed Specialty Diagnoses / Procedures Referred By Contact Refer red To Contact Family Medicine Diagnoses Primary Osteoarthritis Knee Right Ignacio Mead M.D. [facility] [address] [place] [address] Referral ID Status Reason Start Date Expiration Date Visits Requ ested Visits Authorized [id number] Closed 06/19/2017 12/16/2017 1 1 Encounter Details Date Type Department Care Team Description 07/04/2017 Office Visit Department of Ignacio Mead M .D. [address] [place] [address] Preoperative Exam (Primary Dx); [facility] Internal Terrence Christine M.D. 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); [place], [place] Polymyalgia Rheumatica (HCC) ; [facility] [address] Hypertension And Chronic Kid oracio Disease Stage 3 (HCC) [place] [address] Social History Tobacco Use Types Packs/Day Years Used Date Smoking Tobacco: Never Smokeless Tobacco: Never Alcohol Use Standard Drinks/Week Comments No 0 (1 standard drink = 0.6 oz pure alcoho l) Sex Assigned at Date Recorded Female 09/25/2017 1:20 PM CDT documented as of this encounter Last Filed Vital Signs Vital Sign Reading Time Taken Comments Blood Pressure 169/62 07/04/2017 2:03 PM CDT Pulse 91 07/04/2017 2:03 PM CDT Temperature 36.9 ??C (98.4 ??F) 07/04/2017 2:00 PM CDT Respiratory Rate 16 07/04/2017 2:00 PM CDT Oxygen Saturation 97% 07/04/2017 2:00 PM CDT Inhaled Oxygen Concentration - - Weight 71.7 kg (158 lb 1.1 oz) 07/04/2017 2:00 PM CDT Height 157 cm (5' 1.81) 07/04/2017 2:00 PM CDT Body Mass Index 29.09 07/04/2017 2:00 PM CDT documented in this encounter Patient Instructions Patient InstructionsTerrence Christine M.D. - 07/04/2017 2:15 PM CDT Please stop aspirin 7 days prior to the procedure. Please continue other medications until the evening before surgery, 07/11/2017. Please take clonidine, diltiazem and prednisone with sip of water on the morning of surgery, 07/12/2017. The hospitalist will restart all the medications following after hwang rgery. You will be given blood thinner after surgery to prevent blood clot formation in legs. Pleasecome back to see Dr. Eliseo Hoffman to discuss prednisone therapy and management of polymyalgia rheumatica or possible referral to turbogenerator operator. documented in this encounter Progress Notes Terrence Christine M.D. - 07/04/2017 2:15 PM CDT Please call. Electrolytes and kidney function are OK. Glucose is high. Sed rate (Test for inflammation) is high. Blood counts show high WBC. Terrence Christine M.D. - 07/04/2017 2:15 PM CDT Please call. EKG is OK. documented in this encounter H&P Notes Terrence Christine M.D. - 07/04/2017 2:15 PM CDT SUBJECTIVE CHIEF COMPLAINT/REASON FOR VISIT Proposed surgery date: 07/12/2017. Surgeon: Dr. Ignacio Mead. Proposed surgery: Right total knee arthroplasty. Location: [facility]. HISTORY OF PRESENT ILLNESS Vanessa Andino is a 76 y.o. female who presents to the clinic today for a preanesthetic medical evaluation. Her primary care provider is Dr. Eliseo Hoffman. I am asked by Dr. Mead to assess whether Vanessa Andino is an adequate candidate for anesthesia for right total knee arthroplasty on 07/12/2017. They discussed with Dr. Mead regarding risks, benefits, alternative therapy. Patient iswilling to proceed because the benefits outweigh the risks. She saw Dr. Ignacio Mead, Orthopedic Surgeon, on 06/19/2017 for right knee pain. She has bilateral degenerative joint disease. Right total knee arthroplasty was discussed and recommended. There have been no complications during or after previous surgeries. Patient denies any family history intolerance to general anesthesia. She had postoperative nausea. She denies any reaction to blood transfusions. There is no personal history of hepatitis, jaundice, bleeding disorder, or drug resistant infection like MRSA or VRE. There was no family or personal history of blood clots in legs or lungs. She has polymyalgia rheumatica. She was off Prednisone for about one month and then she developed body aches and pains, so she restarted Prednisone 5 mg daily three days ago. Her symptoms are improved after taking medication. She needs prescription refill. Patient has hypertension. She is on Clonidine, Diltiazem CD, and Lasix. Her systolic blood pressure is high today. She checks her blood pressure occasionally at home. It is usually controlled, 130/70 mmHg. She denies any chest pain or shortness of breath. She denies history of coronary artery disease and congestive heart failure. I reviewed and updated her medication list. We discussed potential side effects. There are no additional questions, concerns, or complaints. CURRENT MEDICATIONS Current Outpatient Prescriptions Medication Sig Dispense Refill ??? ASPIRIN ORAL Take 1 tablet by mouth daily. ??? CALCIUM CARB/VIT D3/MINERALS (CALCIUM-VITAMIN D ORAL) Take 1 tablet by mouth daily. ??? cloNIDine (for_CATAPRES) 0.1 mg tablet Take 0.2 mg by mouth every morning. At bedtime 30 tablet 5 ??? dilTIAZem CD (for_CARDIZEM CD/CARTIA XT) 240 mg 24 hr capsule Take 1 capsule (240 mg total) by mouth every morning. 90 capsule 3 ??? furosemide (for_LASIX) 40 mg tablet Take 0.5 tablets (20 mg total) by mouth every morning. 15 tablet 11 ??? MULTIVITAMIN ORAL Take 1 tablet by mouth daily. ??? predniSONE (for_DELTASONE) 5 mg tablet Take 1 tablet (5 mg total) by mouth daily with breakfast.90 tablet 0 ??? traMADol (for_ULTRAM) 50 mg tablet Take 0.5 tablets (25 mg total) by mouth every 6 (six) hours as needed for pain. (Patient not taking: Reported on 07/04/2017 ) 30 tablet 3 No current facility-administered medications for this visit. ALLERGIES/CONTRAINDICATIONS Allergies Allergen Reactions ??? Oxycodone Other (see comments) No reaction listed in [employer]ner ??? Sulfa (Sulfonamide Antibiotics) Other (see comments) No reaction listed in [employer] REVIEW OF SYSTEMS Please see history of present illness for pertinent positives, otherwise rest of review of systems negative. PAST MEDICAL/SURGICAL HISTORY Past Medical History: Diagnosis Date ??? Cataract [...] PLACEMENT 05/04/2016 Advanced trial of InterStim SOCIAL HISTORY Social History Social History ??? Marital status: Spouse name: N/A ??? Number of children: 5 ??? Years of education: N/A Occupational History ??? [employer] Social History Main Topics ??? Smoking status: Never Smoker ??? Smokeless tobacco: Never Used ??? Alcohol use No ??? Drug use: No ??? Sexual activity: Not Currently Partners: Male control/ protection: Post-menopausal Other Topics Concern ??? 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 Her from prostate cancer around 1994. FAMILY HISTORY Family History Problem Relation Age of Onset ??? Hypertension Brother ??? Diabetes Brother ??? Coronary artery disease Brother ??? Heart attack Brother In his 40s ??? Cataracts Father ??? Rheum arthritis Mother ??? Stroke Son Due to blood clot. ??? No Known Problems Son OBJECTIVE VITAL SIGNS Vitals: 07/04/17 1400 07/04/17 1403 BP: (!) 174/66 (!) 169/62 Patient Position: Sitting Sitting Pulse: 91 91 Temp: 36.9 ??C Resp: 16 Height: 157 cm Weight: 71.7 kg SpO2: 97% TempSrc: Temporal PHYSICAL EXAMINATION GENERAL: Patient is sitting. No distress. Able to talk without interruption. HEAD: No facial rash, asymmetry or sinus tenderness. EYES: PERRLA. EOMI. No pallor, icterus or conjunctivitis. Bilateral cataract surgery. ENT: No nasal congestion, discharge or bleeding. There is no ear infection or discharge. No mastoid tenderness. Tongue is moist and midline. No oral lesions. LYMPH NODES: No cervical or supraclavicular lymphadenopathy. THYROID: No thyromegaly. No thyroid thrill or bruit. PERIPHERAL VESSELS: Good radial pulses. HEART: No carotid bruit. No JVD. Regular rhythm. There is no S3, gallop, murmur or thrill. LUNGS: Normal respiratory effort. Clear to auscultation. Normal percussion. ABDOMEN: Moves with respiration. Bowel sounds present. Soft. No rebound tenderness, guarding or rigidity. No organomegaly. SPINE: No scoliosis or kyphosis. No spinous tenderness or mass. JOINTS: She has pain and swelling over right knee joint. EXTREMITIES: No clubbing, cyanosis, infection or calf tenderness. There is puffiness with mild pitting edema in bilateral lower extremities, more on the right. Compression stockings bilaterally. MENTAL: Alert and oriented x 3. Normal mood and affect. NEURO: Grossly nonfocal. ASSESSMENT / PLAN #1 Preoperative Exam #2 Primary Osteoarthritis Knee Right Preoperative medical evaluation prior to right total knee arthroplasty on 07/12/2017. The patient isstable from a cardiac and respiratory standpoint. There is no absolute contraindication for planned procedure. They discussed with Dr. Mead regarding risks, benefits and alternative therapy. Patient is willing to proceed because the benefits outweigh the risks. EKG from today showed sinus rhythm withventricular rate 87 BPM. In regards to medications, patient should stop over the counter medication and Aspirin 7 days prior to procedure. Need to be nothing by mouth the night before surgery. Patient will take Clonidine, Diltiazem, and Prednisone with a sip of water the morning of surgery and restart all medication after surgery. She will take blood thinner after surgery to prevent blood clot formation. #3 Diabetes Mellitus Type 2 Without Complication (HCC) She was advised to continue current [employer] diet, regular exercise, and lifestyle modification. Self-management goals of diabetes mellitus were reviewed. Follow with Dr. Hoffman for regular diabetic checks. #4 Polymyalgia Rheumatica (HCC) She can continue Prednisone 5 mg daily. She should discuss with Dr. Hoffman regarding continuing Prednisone and alternative medications. She may need to see [facility] in the near future. #5 Hypertension And Chronic Kidney Disease Stage 3 Her systolic blood pressure is high. Patient is stable from a cardiac standpoint. Need to continue sodium controlled diet and current medications. Monitor blood pressure regularly at home. Blood pressure goal is less than 140/90 mmHg. Need to continue cardiovascular risk factors modification. #6 Renew Medications The following medications were renewed: Diltiazem, Lasix, and Prednisone. #7 Today Studies Patient had following studies done today: BMP, CBC, Sedimentation rate, and EKG. Patient will be notified with results & recommendations. #8 Followup Visit Return to the clinic for followup with Dr. Hoffman. Please send a copy to Dr. Ignacio Mead and [facility]. Thank you for allowingme to participate in the care of this patient. Administrative Billing 30 minutes of this 35 minute visit was spent in face to face counseling and coordination of care. This document serves as a record of services personally performed by Dr. Terrence Christine. It was created on their behalf by Ambrose Contreras, a trained medical assisting instructor. The creation of this record is based on the scribe's personal observations and the provider's statements to them. This document has been checked and approved by the attending provider. documented in this encounter Plan of Treatment Not on filedocumented as of this encounter Procedures Procedure Name Priority Date/Time Associated Diagnosis Comme nts ECG Routine 07/04/2017 3:29 Preoperative Exam Results for this PM CDT procedure are i n the results section. SEDIMENTATION RATE, B Routine 07/04/2017 3:25 Preoperati ve Exam Results for this PM CDT Polymyalgia procedure are i n Rheumatica (HCC) the results section. CBC WITHOUT Routine 07/04/2017 3:25 Preoperative Exa m Results for this DIFFERENTIAL, B PM CDT Polymyalgia procedure ar e in Rheumatica (HCC) the results Hypertension And section. Chronic Kidney Disease Stage 3 (HCC) BASIC METABOLIC PANEL, Routine 07/04/2017 3:25 Preoperat edna Exam Results for this S/P PM CDT Diabetes Mellitus procedure are in Type 2 Without the results Complication (HC C) section. Hypertension And Chronic Kidney Disease Stage 3 (HCC) documented in this encounter Results ECG 12 Lead (07/04/2017 3:29 PM CDT) P athologist Signature Ventricular Rate 87 BPM MUSE ECG/Min W[place] Interval 178 ms MUSE QRSD Interval 88 ms MUSE QT Interval 394 ms MUSE QTC Interval 474 ms MUSE P Media 48 degrees MUSE R Media 50 degrees MUSE T Wave Media 43 degrees MUSE Specimen Anatomical Collection Method Collection Time Receive d Time (Source) Location / / Volume Laterality 07/04/2017 3:29 PM 8 3:36 CDT PM CDT Impressions MUSE - 07/04/2017 3:36 PM CDT Sinus rhythm Premature ventricular complexes Nonspecific ST and T wave abnormality When compared with ECG of 27-APR-2016 13 :27, Premature ventricular complexes are now present Narrative This result has an attachment that is no t available. Terrence Varela.D. ECG ORDERABLES Performing Organization Address City/State/ZIP Code Phon e Number [facility] NA (ABNORMAL) Sedimentation Rate (07/04/2017 3:25 PM CDT) Patholo gist Method Time Signature Sedimentation 88 (H) 0 - 29 07/04/2017 [facility] Rate, B mm/1 h 4:21 PM CDT [facility] [place] [facility] Specimen Anatomical Collection Method Collection Time Receive d Time (Source) Location / / Volume Laterality Blood (Blood, 07/04/2017 3:25 PM 07/05/19 18 3:28 Venous) CDT PM CDT Phpop Christine M.Marta. LAB BLOOD ADD-ON Performing Organization Address City/State/ZIP Code Phon e Number [facility] [address] [facility] [place] [address] [place] [facility] [address] [place] [address] [place] [address] [place] [facility] (ABNORMAL) BMP (Basic Metabolic Panel) (07/04/2017 3:25 PM CDT) P athologist Signature Potassium, S 4.5 3.6 - 5.2 07/04/2017 [facility] mmol/L 6:40 PM CDT [facility] [place] [facility] Sodium, S 139 135 - 145 07/04/2017 [facility] mmol/L 6:40 PM CDT [facility] [place] [facility] Chloride, S 96 (L) 98 - 107 07/04/2017 [facility] mmol/L 6:40 PM CDT [facility] [place] [facility] Bicarbonate, S 30 (H) 22 - 29 07/04/2017 [facility] mmol/L 6:40 PM CDT [facility] [place] [facility] Anion Gap 13 7 - 15 07/04/2017 [facility] 6:40 PM CDT [facility] [place] [facility] BUN (Blood Urea 21 6 - 21 07/04/2017 [facility] Nitrogen), S mg/dL 6:40 PM CDT [facility] [place] [facility] Creatinine 0.89 0.59 - 07/04/2017 [facility] 1.04 mg/dL 6:40 PM T [facility] [place] [facility] eGFR-Non 63 >=60 07/04/2017 [facility] Black/ mL/min/BSA 6:40 PM CDT [facility] [place] [facility] Comment: ----ADDITIONAL INFORMATION---- Estimated GFR calculated using the 2009 CKD_EPI creatinine equation. eGFR-Black/ 72 >=60 mL/min/BSA 2017 6:[address] [facility] [place] [facility] Comment: ----ADDITIONAL INFORMATION---- Estimated GFR calculated using the 2009 CKD_EPI creatinine equation. Calcium, Total, S 10.0 8.9 - 10.1 mg/dL 07/04/2017 6:40 PM [facility] [place] [facility] Glucose, S 180 (H) 70 - 140 mg/dL 07/04/2017 6:40 PM [facility] [place] [facility] Specimen Anatomical Collection Method Collection Time Receive d Time (Source) Location / / Volume Laterality Blood 07/04/2017 3:25 PM 8 6:28 CDT PM CDT Terrence Christine M.D. LAB BLOOD ADD-ON Performing Organization Address City/State/ZIP Code Phon e Number [facility] [employer] [facility] [address] [place] [address] LAB (ABNORMAL) CBC without Differential (07/04/2017 3:25 PM CDT) [facility] Method Time Signature Hemoglobin 12.9 11.6 - 07/04/2017 [facility] 15.0 g/dL 3:47 PM CDT [facility] Hematocrit 40.0 35.5 - 07/04/2017 [facility] 44.9 % 3:47 PM CDT [facility] Erythrocytes 4.47 3.92 - 07/04/2017 [facility] 5.13 3:47 PM CDT [facility](12[facility] [employer] LAB MCV 89.5 78.2 - 07/04/2017 [facility] 97.9 fL 3:47 PM CDT [facility] RBC Distrib Width 14.4 12.2 - 07/04/2017 [facility] 16.1 % 3:47 PM CDT [facility] [employer] [facility] Platelet Count 588 (H) 157 - 371 07/04/2017 [facility] x10(9)/L 3:[address] [facility] Leukocytes 13.1 (H) 3.4 - 9.6 07/04/2017 [facility] x10(9)/L 3:[address] [facility] Specimen Anatomical Collection Method Collection Time Receive d Time (Source) Location / / Volume Laterality Blood 07/04/2017 3:25 PM 8 3:28 CDT PM CDT Terrence Christine M.D. LAB BLOOD ADD-ON Performing Organization Address City/State/ZIP Code Phon e Number [facility]- [address] [place] [address] [facility] [facility]- [address] [place] [address] [place] [address] [employer] [facility] documented in this encounter Visit Diagnoses Diagnosis Preoperative Exam - Primary Primary Osteoarthritis Knee Right Diabetes Mellitus Type 2 Without Complic ation (HCC) Polymyalgia Rheumatica (HCC) Hypertension And Chronic Kidney Disease Stage 3 (HCC) documented in this encounter Care Teams Core Stripper Relationship Specialty Start Date End Date Eliseo Hoffman M.D. PCP - General 09/08/16 11/16/17 [address] [place] [address] documented as of this encounter
--- OUTSIDE RECORDS SUMMARY | 2022-02-28 01:42 | XMS_ITS | Encounter Summary ---
:1940 Author Organization [facility] Address [address] [place] [address] Care Team Providers Name Role Phone Eliseo Hoffman M.D. Primary Care Provider Encounter Details Date Type Department Care Team Description 05/31/2017 Hospital Encounter Department of Eliseo Hoffman Pain Knee Right Radiology in [place] Varela [place], [place] [address] [facility] [address] [place] [id number] Social History Tobacco Use Types Packs/Day [...] 1 tablet by 0 08/02/20162018 mouth daily. cloNIDine (for_CATAPRES) Take 1 tablet (0.1 30 tablet 5 09/201706/05/2017 0.1 mg tablet mg total) by mouth daily. At bedtime dilTIAZem CD Take 1 capsule (240 90 capsule 3 05/04/201712/2017 (for_CARDIZEM CD/CARTIA mg total) by mouth XT) 240 mg 24 hr capsule daily. furosemide (for_LASIX) 40 Take 0.5 tablets 15 tablet 11 03/2807/04/2017 mg tablet (20 mg total) by mouth daily. predniSONE Take 1 tablet (5 mg 7 tablet 0 05/31/201706/07 (for_DELTASONE) 5 mg total) by mouth tablet daily for 7 days. documented as of this encounter Plan of Treatment Not on filedocumented as of this encounter Procedures Procedure Name Priority Date/Time Associated Comments Diagnosis DX KNEE RIGHT 3 RAD - Routine 05/31/2017 4:33 Pain Knee Right Resul ts for this VIEWS (most inpatients PM RAIL GRINDER procedure a re in and all the results outpatients) section. documented in this encounter Results DX Knee Right 3 Views (05/31/2017 4:33 PM RAIL GRINDER) Anatomical Region Laterality Modality Lower Extremity, Knee Right Computed Radiograp hy Specimen (Source) Anatomical Collection Method Collection Time Re ceived Time Location / / Volume Laterality 05/31/2017 4:44 PM RAIL GRINDER Impressions 05/31/2017 4:45 PM RAIL GRINDER IMPRESSION: Degenerative changes bilateral knees and large right knee joint effusion. Narrative 05/31/2017 4:45 PM RAIL GRINDER EXAM: DX KNEE RIGHT 3 VIEWS COMPARISON: None FINDINGS: Moderate tricomponent mild deg enerative change bilateral knees, right greater than left. ??Large right knee aisha int effusion. ??No acute fracture. Procedure Note David Knott M.D. - 05/31/2017Formatti ng of this note might be different from the original. EXAM: DX KNEE RIGHT 3 VIEWS COMPARISON: None FINDINGS: Moderate tricomponent mild deg enerative change bilateral knees, right greater than left. Large right knee join t effusion. No acute fracture. IMPRESSION: Degenerative changes bilater al knees and large right knee joint effusion. Eliseo Hoffman M.D. [facility] documented in this encounter Visit Diagnoses Diagnosis Pain Knee Right documented in this encounter Care Teams Radio Station Manager Relationship Specialty Start Date End Date Eliseo Hoffman M.D. PCP - General 09/08/16 11/16/[address] [place], [place] [address] [address] documented as of this encounter
--- OUTSIDE RECORDS SUMMARY | 2022-02-28 01:42 | XMS_ITS | Encounter Summary ---
:1940 Author Organization [facility] Address [address] [place] [address] Care Team Providers Name Role Phone Eliseo Hoffman M.D. Primary Care Provider Encounter Details Date Type Department Care Team Description 04/29/2017 Orders Only Department of [facility] Eliseo Hoffman , Internal Medicine in [place], [place] 100 [facility] [address] [place] [address] [place] [address] [phone] Social History Tobacco Use Types Packs/Day Years [...] on filedocumented in this encounter Care Teams Supervisor Kennel Relationship Specialty Start Date End Date Eliseo Hoffman M.D. PCP - General 09/08/16 11/16/17 [address] [place] [address] documented as of this encounter
--- OUTSIDE RECORDS SUMMARY | 2022-02-28 01:42 | XMS_ITS | Encounter Summary ---
:1940 Author Organization [facility] Address [address] [place] [address] Care Team Providers Name Role Phone Eliseo Hoffman M.D. Primary Care Provider Reason for Referral Outpatient (Routine) - Closed Specialty Diagnoses / Procedures Referred By Contact Refer red To Contact [facility] Internal Eliseo Hoffman [facility] Medicine [place] [address] [place] [id number] Referral ID Status Reason Start Date Expiration Date Visits Requ ested Visits Authorized [id number] Closed 06/05/2017 12/02/2017 1 1 Reason for Visit Reason Comments Knee Pain Right knee injection Outpatient (Routine) - Closed Specialty Diagnoses / Procedures Referred By Contact Refer red To Contact [facility] Internal Eliseo Hoffman [facility] M.Dilan [address] [place] [id number] Referral ID Status Reason Start Date Expiration Date Visits Requ ested Visits Authorized [id number] Closed 05/31/2017 11/27/2017 1 1 Encounter Details Date Type Department Care Team Description 06/05/2017 Office Visit Department of Eliseo Hoffman Pain Knee R ight (Primary Dx); [facility] Graham Varela M.D. Hypertension And Chronic Kidney Disease Stage 3 (HCC) Medicine in [address] [phone] (Work) [phone] Social History Tobacco Use Types Packs/Day Years Used Date Smoking Tobacco: Never Smokeless Tobacco: Never Alcohol Use Standard Drinks/Week Comments No 0 (1 standard drink = 0.6 oz pure alcoho l) Sex Assigned at Date Recorded Female 09/25/2017 1:20 PM CDT documented as of this encounter Last Filed Vital Signs Vital Sign Reading Time Taken Comments Blood Pressure 200/90 06/05/2017 9:29 AM CDT Pulse 84 06/05/2017 9:22 AM CDT Temperature 37 ??C (98.6 ??F) 06/05/2017 9:22 AM CDT Respiratory Rate 16 06/05/2017 9:22 AM CDT Oxygen Saturation - - Inhaled Oxygen Concentration - - Weight 69.7 kg (153 lb 10.6 oz) 06/05/2017 9:22 AM CDT Height - - Body Mass Index 27.57 01/12/2017 2:16 PM CDT documented in this encounter Progress Notes Eliseo Hoffman M.D. - 06/05/2017 12:00 AM CDT SUBJECTIVE CHIEF COMPLAINT/REASON FOR VISIT Right knee pain and hypertension. HISTORY OF PRESENT ILLNESS The patient returns after starting clonidine 0.1 mg. She is tolerating that okay, but her blood pressure remains very elevated, 200/90, so I am going to increase it to 0.2 mg and have her come back in a week. Otherwise, she comes for right knee injection and this is performed today and please see the injection note separately. CURRENT MEDICATIONS Per EMR. ALLERGIES/CONTRAINDICATIONS Per EMR. REVIEW OF SYSTEMS Complete review of systems is negative. She does not really feel any symptoms from her hypertension but is concerned that it is so high. She is unfortunately intolerant to many medications. MEDICAL HISTORY 1. 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 2. Urinary retention with UROstim device. 3. Polymyalgia rheumatica and now finally off prednisone. 4. 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 5. Hypertension. 6. Chronic kidney disease, stage 3. 7. Mixed hyperlipidemia. SOCIAL HISTORY She is . She does not smoke or drink. OBJECTIVE PHYSICAL EXAMINATION Vital Signs: Temperature is 37, heart rate 84, blood pressure 200/90. Weight 69.7. Respiratory rate 16. Pain is 10 in the right knee. HEENT Eyes: Conjunctivae and lids normal. Pupils equal, round, reactive to light and accommodation. Extraocular movements normal. Sclerae nonicteric. Ophthalmologic exam grossly normal. ENT: Tympanic membranes look okay bilaterally. Nares without erythema or congestion. Mouth without erythema or exudate, noleuko or erythroplakia. NECK Supple, no adenopathy or thyromegaly. Carotid upstrokes brisk, no bruits. CHEST Lung mitchell clear to auscultation and percussion with normal respiratory rate and effort. CARDIAC Central venous pressure is normal at 7 to 8 cm of water or less; there is a normal systolic collapseof the jugular venous pulse; there is not a positive hepatojugular reflex. Heart tones are in sinus rhythm; S1 and S2 normal, physiologic splitting of the second heart tone, no third or fourth sound, no significant murmur, no gallop. Extremities: Her right knee is somewhat swollen. It is not red or warm. ASSESSMENT / PLAN #1 Formidable right knee degenerative joint disease It was injected today and she felt better immediately. #2 Hypertension Increase clonidine to 0.2 mg today by taking two 0.1 mg pills. The patient will return in 1 week to see the effect of the higher dose of clonidine. Job ID: [id number] documented in this encounter Procedure Notes Eliseo Hoffman M.D. - 06/05/2017 9:45 AM CDTAssociated Order(s): LARGE JOINT INJECTION Post-Procedure Diagnose(s): Pain Knee Right Large Joint Injection Date/Time: 06/05/2017 10:18 AM Performed by: Eliseo Hoffman Authorized by: Eliseo Hoffman Make Ready Worker utilized: translator/interpreter not needed Risks discussed with: patient Procedural risks discussed, including (but not limited to) the following: allergic reaction and infection The benefits, risks and alternatives to the procedure and the potential need for sedation or anesthesia as well as the names, roles, and responsibilities of healthcare team members performing significant interventional tasks were discussed with the patient and/or decision maker: yes The benefits, risks and alternatives to the possible need for blood products were discussed with thepatient and/or decision maker: not addressed All relevant documentation and testing were reviewed and available. All required blood products, implants, devices and/or special equipment were made available as applicable. The pre-procedure verification was conducted, the correct site was marked if required, and the procedural time out was conducted prior to performing the procedure and confirmed in a procedural pause: yes Procedure purpose: therapeutic Appropriate hand hygiene, gown, cap, mask, protective eyewear, sterile gloves, skin preparation, sterile drape, and strict aseptic technique were utilized as applicable for the procedure: yes Skin preparation: povidone-iodine Anesthesia method: pre-procedure local infiltration Procedure location: knee - Knee site: R knee joint Patient position: prone Procedural approach: medial Procedure performed: injection only Needle gauge: 22 G The following medications were administered at the target site(s): Local anesthetic: 3 mL lidocaine 10 mg/mL (1 %) Corticosteroid: 40 mg triamcinolone acetonide Procedure completed successfully: yes Complications: no apparent complications Post-procedure instructions: avoid strenuous activity for 2 days documented in this encounter Plan of Treatment Scheduled Referrals Name Type Priority Associated Diagnoses Order [facility] Internal Outpatient Referral Routine Ex pected: Medicine office 06/12/2017 visit (clinic) (Approximate) , Expires: 06/05/2020 documented as of this encounter Procedures Procedure Name Priority Date/Time Associated Diagnosis Comme nts DC ARTHCS ASP/INJ Routine 06/05/2017 9:45 AM Pain Knee Right R esults for this MJR JT WO US CDT procedure are i n the results section. documented in this encounter Results DC ARTHCS ASP/INJ MJR JT WO US (06/05/2017 9:45 AM CDT) Narrative MMODAL - 06/05/2017 9:45 AM CDT Eliseo Hoffman M.D. ? 06/06/2017 ??9:07 AM Large Joint Injection Date/Time: 06/05/2017 10:18 AM Performed by: Eliseo Hoffman Authorized by: Eliseo Hoffman Make Ready Worker utilized: translator/interpreter not ne eded ?? Risks discussed with: patient Procedural risks discussed, including (b ut not limited to) the following: allergic reaction and infection The benefits, risks and alternatives to the procedure and the potential need for sedation or anesthesia as well as the names, roles, and responsibilities of healthcare team memb ers performing significant interventional tasks were discussed with the patient and/or decision maker: yes ?? The benefits, risks and alternatives to the possible need for blood products were discussed with the patient and/or decision maker: not addressed All relevant documentation and testing w ere reviewed and available. All required blood products, implants, devic es and/or special equipment were made available as applicable. The pre-pr ocedure verification was conducted, the correct site was marked i f required, and the procedural time out was conducted prior to performi ng the procedure and confirmed in a procedural pause: yes ?? Procedure purpose: therapeutic Appropriate hand hygiene, gown, cap, mas k, protective eyewear, sterile gloves, skin preparation, sterile drape, and strict aseptic technique were utilized as applicable for the procedure : yes ?? Skin preparation: povidone-iodine Anesthesia method: pre-procedure local i nfiltration Procedure location: knee - Knee site: R knee joint Patient position: prone Procedural approach: medial Procedure performed: injection only Needle gauge: 22 G The following medications were administe red at the target site(s): ??Local anesthetic: 3 mL lidocaine 10 m g/mL (1 %) ??Corticosteroid: 40 mg triamcinolone a cetonide Procedure completed successfully: yes Complications: no apparent complications ?Post-procedure instructions: avoid st renuous activity for 2 days Eliseo Hoffman M.D. PROCEDURE/MINOR SURGICAL ORD ERABLES Performing Organization Address City/State/ZIP Code Phon e Number MMODAL MMODAL NA documented in this encounter Visit Diagnoses Diagnosis Pain Knee Right - Primary Hypertension And Chronic Kidney Disease Stage 3 (HCC) documented in this encounter Administered Medications Inactive Administered Medications - up to 3 most recent administrations Medication Order MAR Action Action Date Dose Rate Site lidocaine 10 mg/mL (1 %) injection Given 06/05/2017 10:18 AM CDT 3 mL 3 mL (for_XYLOCAINE) 3 mL, infiltration, One-Time, Starting on 06/05/17 at 1018, For 1 dose triamcinolone acetonide injection 40 mg Given 06/05/2017 10:18 A M CDT 40 mg (for_KENALOG-40) 40 mg, intra-articular, One-Time, Starting on 06/05/17 at 1018, For 1 dose documented in this encounter Care Teams Tire Molder Relationship Specialty Start Date End Date Eliseo Hoffman M.D. PCP - General 09/08/16 11/16/17 100 [facility] [place] [id number] documented as of this encounter
--- OUTSIDE RECORDS SUMMARY | 2022-02-28 01:42 | XMS_ITS | Encounter Summary ---
:1940 Author Organization [facility] Address [address] [place] [address] Care Team Providers Name Role Phone Eliseo Hoffman M.D. Primary Care Provider Encounter Details Date Type Department Care Team Description 07/25/2017 Orders Only Department of Ignacio Mead, Arthroplasty Total Knee Orthopedic Surgery in [place] Replacement Status Post [place], [place] [address], Right (Primary Dx) [address] [facility] [place] [phone] Social History Tobacco Use Types Packs/Day Years Used Date Smoking Tobacco: Never Smokeless Tobacco: Never Alcohol Use Standard Drinks/Week Comments No 0 (1 standard drink = 0.6 oz pure alcoho l) Sex Assigned at Date Recorded Female 09/25/2017 1:20 PM CDT documented as of this encounter Plan of Treatment Not on filedocumented as of this encounter Results DX Knee Right Standing [...] arthropathy and chondrocalcino sis. Ignacio Mead M.D. IMG DIAGNOSTIC IMAGING PROCE SIRI documented in this encounter Visit Diagnoses Diagnosis Arthroplasty Total Knee Replacement Stat us Post Right - Primary Arthroplasty Total Knee Replacement Stat us Post Right documented in this encounter Care Teams Control Room Operator Relationship Specialty Start Date End Date Eliseo Hoffman M.D. PCP - General 09/08/16 11/16/[address] [place] [id number] documented as of this encounter
--- OUTSIDE RECORDS SUMMARY | 2022-02-28 01:42 | XMS_ITS | Encounter Summary ---
:1940 Author Organization [facility] Address [address] [place] [address] Care Team Providers Name Role Phone Eliseo Hoffman M.D. Primary Care Provider Reason for Visit Reason Comments Follow-up post R knee replacement last Wed Encounter Details Date Type Department Care Team Description 07/18/2017 Office Visit Department of Sherry Padilla, Arthro plasty Total Knee Replacement Status Post Right (Primary Dx); Shyla Gann M.D. Drug [facility] Constipation [facility], in [address] [address] [place], [place] [phone] (Work) [phone] Social History Tobacco Use Types Packs/Day Years Used Date Smoking Tobacco: Never Smokeless Tobacco: Never Alcohol Use Standard Drinks/Week Comments No 0 (1 standard drink = 0.6 oz pure alcoho l) Sex Assigned at Date Recorded Female 09/25/2017 1:20 PM CDT documented as of this encounter Last Filed Vital Signs Vital Sign Reading Time Taken Comments Blood Pressure 154/80 07/18/2017 9:05 AM CDT Pulse 84 07/18/2017 8:58 AM CDT Temperature 36.7 ??C (98.1 ??F) 07/18/2017 8:58 AM CDT Respiratory Rate - - Oxygen Saturation - - Inhaled Oxygen - - Concentration Weight 72.6 kg (160 lb 0.9 07/18/2017 9:05 AM wt on 06/25 8 in oz) CDT hospital Height - - Body Mass Index 29.45 07/04/2017 2:00 PM CDT documented in this encounter Patient Instructions Patient InstructionsSherry Murray M.D. - 07/18/2017 9:15 AM CDT 1. Arthroplasty Total Knee Replacement Status Post Right -Continue [place] every 6 hours as needed for pain-control -Reviewed with the patient that she needs to take aspirin 325 mg twice daily for 30 days -Refill [place] today 2. Drug Induced Constipation _Will do aggressive bowel regimen. - lactulose (CHRONULAC) 10 gram/15 mL solution; Take 30 mL (20 g total) by mouth daily for 3 days. Dispense: 236 mL; Refill: 0 - polyethylene glycol (MIRALAX) 17 gram powder packet; Take 1 packet (17 g total) by mouth 2 (two) times a day. Dispense: 30 packet; Refill: 0 documented in this encounter Progress Notes Sherry Murray M.D. - 07/18/2017 9:15 AM CDT SUBJECTIVE Chief Complaint Chief Complaint Patient presents with ??? Follow-up post R knee replacement last Mon Post-op follow-up: Patient reports she underwent right knee replacement on July 12, [address] Mead. Patient states she did not have any bowel movements since Monday. She has been taking stool softener(Docusate 1 tablet daily). Endorses poor appetite. Her pain is getting better. She is currently staying at home and her friend(Ibis) is staying with her and helping with chores. Patient is able towalk to the bathroom and living room. Patient states she has been taking [place] 1 tablet every 6 hours as needed for pain-control. Her bladder stimulator was turned off and she has no issues with urinary retention. Patient states she has been taking aspirin 325 mg once daily even though she was supposed to take aspirin 325 mg twice daily for VTE prophylaxis. Denies any shortness of breath or difficulty with breathing. Problem list Patient Active Problem List Diagnosis ??? Hypertension And Chronic Kidney Disease Stage 3 ??? Polymyalgia Rheumatica (HCC) ??? Hyperlipidemia Mixed ??? Pain Knee Right ??? Primary Osteoarthritis Knee Right ??? Fatigue ??? Retention Urinary ??? Varicose Vein Lower Extremity With Edema ??? Epicondylitis Medial Right ??? Presence Of Right Artificial Knee Joint Current Medications Current Outpatient Prescriptions Medication Sig Dispense Refill ??? ASPIRIN ORAL Take 1 tablet by mouth daily. ??? CALCIUM CARB/VIT D3/MINERALS (CALCIUM-VITAMIN D ORAL) Take 1 tablet by mouth daily. ??? dilTIAZem CD (for_CARDIZEM CD/CARTIA XT) 240 mg 24 hr capsule Take 1 capsule (240 mg total) by mouth every morning. 90 capsule 3 ??? docusate sodium (COLACE) 100 mg capsule Take 100 mg by mouth. ??? furosemide (for_LASIX) 40 mg tablet Take 0.5 tablets (20 mg total) by mouth every morning. 15 tablet 11 ??? HYDROcodone-acetaminophen (NORCO) 5-325 mg per tablet Take 1 tablet by mouth. ??? MULTIVITAMIN ORAL Take 1 tablet by mouth daily. ??? predniSONE (for_DELTASONE) 5 mg tablet Take 1 tablet (5 mg total) by mouth daily with breakfast.90 tablet 0 ??? cloNIDine (for_CATAPRES) 0.1 mg tablet Take 0.2 mg by mouth every morning. At bedtime 30 tablet 5 No current facility-administered medications for this visit. [...] Years of education: N/A Occupational History ??? [employer] Social History Main Topics ??? Smoking status: Never Smoker ??? Smokeless tobacco: Never Used ??? Alcohol use No ??? Drug use: No ??? Sexual activity: Not Currently Partners: Male control/ protection: Post-menopausal Other Topics Concern ??? 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 Her from prostate cancer around 1994. REVIEW OF SYSTEMS Negative review of major organ systems apart from that noted in the HPI and the Past Medical/Surgical History. PHSYCIAL EXAM Vitals: 07/18/17 0905 BP: 154/80 Pulse: Temp: Constitutional: She appears well-developed and well-nourished. No distress. She is sitting on a wheelchair. Hard of hearing. HENT: Head: Normocephalic and atraumatic. Cardiovascular: Normal rate, regular rhythm and normal heart sounds. No murmur heard. Pulmonary/Chest: Effort normal and breath sounds normal. No respiratory distress. She has no wheezes. She has no rales. Abdominal: Soft. She exhibits no distension. Bowel sounds are decreased. There is no tenderness. There is no guarding. Musculoskeletal: Right knee: Limited range of motion. Sirena intact. Clear and no signs of infection. LABS/IMAGING No results found for this or any previous visit (from the past 24 hour(s)). Outside Dx Skeletal Result Date: 07/13/2017 Narrative: This order has been created and auto-finalized to support the import of outside images. If available, original interpretation can be found on the Media Tab in Chart Review or as an image in QREADS. If a re-interpretation or overread is required please follow defined workflow. ASSESSMENT AND PLAN Patient Instructions 1. Arthroplasty Total Knee Replacement Status Post Right: doing well. Her blood pressure is elevatedlikely due to pain. -Continue [place] every 6 hours as needed for pain-control -Reviewed with the patient that she needs to take aspirin 325 mg twice daily for 30 days -Refill Worcester today and patient was given 30 tablets of [place]. 2. Drug Induced Constipation _Will do aggressive bowel regimen to help with constipation. - lactulose (CHRONULAC) 10 gram/15 mL solution; Take 30 mL (20 g total) by mouth daily for 3 days. Dispense: 236 mL; Refill: 0 - polyethylene glycol (MIRALAX) 17 gram powder packet; Take 1 packet (17 g total) by mouth 2 (two) times a day. Dispense: 30 packet; Refill: 0 Options for treatment and follow-up care were reviewed with the patient . Vanessa Andino and/or guardian engaged in the decision making process and verbalized understanding of the options discussed and agreed with the final plan. Sherry Murray M.D. documented in this encounter Plan of Treatment Not on filedocumented as of this encounter Visit Diagnoses Diagnosis Arthroplasty Total Knee Replacement Stat us Post Right - Primary Drug Induced Constipation documented in this encounter Care Teams Whiskey Proof Reader Relationship Specialty Start Date End Date Eliseo Hoffman M.D. PCP - General 09/08/16 11/16/[address] [place] [address] [place] [id number] documented as of this encounter
--- OUTSIDE RECORDS SUMMARY | 2022-02-28 01:42 | XMS_ITS | Encounter Summary ---
:1940 Author Organization [facility] Address [address] [place] [address] Care Team Providers Name Role Phone Eliseo Hoffman M.D. Primary Care Provider Reason for Visit Reason Onset Date Comments Tramadol 06/06/2017 Encounter Details Date Type Department Care Team Description 06/06/2017 Clinical Communication Department of Donna Castillo Tramadol [facility] Internal L.P.N. Medicine in [address] [place] [address] [address] [facility] [address] [place], [place] [phone] (Wo rk) [address] [phone] Social History Tobacco Use Types Packs/Day Years Used Date Smoking Tobacco: Never Smokeless Tobacco: Never Alcohol Use Standard Drinks/Week Comments No 0 (1 standard drink = 0.6 oz pure alcoho l) Sex Assigned at Date Recorded Female 09/25/2017 1:20 PM CDT documented as of this encounter Miscellaneous Notes Telephone Encounter - Donna Castillo L.P.N. - 06/06/2017 11:08 AM CDT Rx faxed to pharmacy documented in this encounter Plan of Treatment Not on filedocumented as of this encounter Visit Diagnoses Not on filedocumented in this encounter Care Teams Family Law Specialist Relationship Specialty Start Date End Date Eliseo Hoffman M.D. PCP - General 09/08/16 11/16/17 [address] [place], [place] [id number] (work) documented as of this encounter
--- OUTSIDE RECORDS SUMMARY | 2022-02-28 01:42 | XMS_ITS | Encounter Summary ---
:1940 Author Organization [facility] Address [address] [place] [address] Care Team Providers Name Role Phone Eliseo Hoffman M.D. Primary Care Provider Encounter Details Date Type Department Care Team Description 07/24/2017 Orders Only Department of Orthopedic Ignacio Mead M.D. Surgery in [place], [address] [place] [address] [place], Carlos [address] [place] [address] [address] [facility] [address] [phone] Social History Tobacco Use Types Packs/Day Years [...] on filedocumented in this encounter Care Teams Mixing Machine Tender Relationship Specialty Start Date End Date Eliseo Hoffman M.D. PCP - General 09/08/16 11/16/17 [address] [place] [address] documented as of this encounter
--- OUTSIDE RECORDS SUMMARY | 2022-02-28 01:42 | XMS_ITS | Encounter Summary ---
:1940 Author Organization [facility] Address [address] [place] [address] Care Team Providers Name Role Phone Eliseo Hoffman M.D. Primary Care Provider Reason for Referral Outpatient (Routine) - Closed Specialty Diagnoses / Procedures Referred By Contact Refer red To Contact Family Medicine Diagnoses Primary Osteoarthritis Knee Right Ignacio Mead M.D. [facility] [place] [address] [facility], [address] [address] Referral ID Status Reason Start Date Expiration Date Visits Requ ested Visits Authorized [id number] Closed 06/19/2017 12/16/2017 1 1 utpatient (Routine) - Closed Specialty Diagnoses / Procedures Referred By Contact Refer red To Contact Orthopedic Surgery Diagnoses Primary Osteoarthritis Knee Right [facility] [address] [place] [address] [facility], [address] [address] Referral ID Status Reason Start Date Expiration Date Visits Requ ested Visits Authorized [id number] Closed 06/19/2017 12/16/2017 1 1 utpatient (Routine) - Closed Specialty Diagnoses / Procedures Referred By Contact Refer red To Contact Orthopedic Surgery Diagnoses Primary Osteoarthritis Knee Right Ignacio Mead M.D. [facility] [address] [facility], [address] [address] Referral ID Status Reason Start Date Expiration Date Visits Requ ested Visits Authorized [id number] Closed 06/19/2017 12/16/2017 1 1 Reason for Visit Reason Comments Knee Pain referral from Dr Hoffman- [place] ight knee pain x 2 years Pain Outpatient (Routine) - Closed Specialty Diagnoses / Procedures Referred By Contact Refer red To Contact Orthopedic Surgery Diagnoses Pain Knee Right Eliseo Hoffman, [facility] [place] [address] [place] [address] Referral ID Status Reason Start Date Expiration Date Visits Requ ested Visits Authorized [id number] Closed 06/15/2017 12/12/2017 1 1 Encounter Details Date Type Department Care Team Description 06/19/2017 Comprehensive Visit Department of Regulo Hoffman M.D. [address] [place] [address] Primary Osteoarthritis Knee Right (Prima ry Dx); Orthopedic Surgery Ignacio Mead M.D. [address] [address] Pain Knee Right in [place], [place] [address] [place] [address] Social History Tobacco Use Types Packs/Day Years Used Date Smoking Tobacco: Never Smokeless Tobacco: Never Alcohol Use Standard Drinks/Week Comments No 0 (1 standard drink = 0.6 oz pure alcoho l) Sex Assigned at Date Recorded Female 09/25/2017 1:20 PM CDT documented as of this encounter Last Filed Vital Signs Vital Sign Reading Time Taken Comments Blood Pressure 174/70 06/19/2017 12:47 PM CDT Pulse 84 06/19/2017 12:44 PM CDT Temperature - - Respiratory Rate - - Oxygen Saturation - - Inhaled Oxygen Concentration - - Weight 70.6 kg (155 lb 10.3 oz) 06/19/2017 12:44 PM CDT Height - - Body Mass Index 27.93 01/12/2017 2:16 PM CDT documented in this encounter Patient Instructions Patient InstructionsSheyla Aguilar L.P.N. - 06/19/2017 1:00 PM CDT Surgical Education was given to the patient today for R TKA, to be scheduled with Dr. Mead. All questions were answered and the pateint verbalized understanding of all information and instructions given. Patient was povided with the total joint packet including information about before and after surge ry, and temporary parking permit. Surgery scheduling then met with patient and scheduled surgery andpre and post operative appointments. documented in this encounter Consult Notes Ignacio Mead M.D. - 06/19/2017 1:00 PM CDT SUBJECTIVE Pain reported: REASON FOR CONSULT Vanessa Andino is a 76 y.o. female who presents for evaluation of Pain of the Right Knee and Knee Pain (referral from Dr Hoffman- right knee pain x 2 years) and is under the care of Eliseo Hoffman M.D.. HISTORY OF PRESENT ILLNESS This is a 76-year-old lady with complaints of right knee pain which has been present for several years and getting gradually worse. She has been treated with injections and oral medications. She uses [employer] to get around with home. She has a very difficult time even going grocery shopping and walking very short distances. She is not even sure she could walk 1 block. 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 BREAST SURGERY ??? GALLBLADDER SURGERY ??? HYSTERECTOMY Tobacco history is History Smoking Status ??? Never Smoker Smokeless Tobacco ??? Never Used . REVIEW OF SYSTEMS All other systems reviewed and are negative. OBJECTIVE PHYSICAL EXAM Orthopedic Physical Examination General Appearance She appears to be their stated age and healthy. Body habitus: normal. The patient's mood appears good. She seems reliable as a historian. The patient's affect is appropriate for situation. Patient's right knee has full extension can flex to about 100??. She has no laxity with varus or valgus stress. There is crepitus throughout the range of motion. She has global pain with palpation. Her skin is in generally good condition. Her motor and sensory exams distally are intact. DIAGNOSTICS Hemoglobin A1c, B Date Value Ref Range Status 12/26/2016 6.4 (H) <=5.6 A1C Final Sedimentation Rate, B Date Value Ref Range Status 02/06/2017 36 (H) 0 - 29 mm/1 h Final IMAGING He did have x-rays obtained which I reviewed personally independently and she does have advanced osteoarthritis in the right knee. ASSESSMENT / PLAN #1 Pain Knee Right #2 Primary Osteoarthritis Knee Right The patient had a very thorough course of conservative care and has disabling pain despite that. Think she would be a good candidate for total knee arthroplasty. I discussed with the patient the details of the total knee arthroplasty. We discussed alternative treatments such as physical therapy, NSAIDs, injections, braces, and ambulatory aids. We discussed some of the potential risks of the procedureincluding but not limited to wound complications, infection, venous thromboembolic disease which could be life threatening, nerve injury, bleeding which could require transfusion, swelling of the knee,partial or non-resolution of pain, stiffness, anesthetic complications, and that there is usually numbness on the lateral side of the knee after surgery which is generally permanent. We discussed that the expected benefit of surgery is improvement in pain and improvement in function, but that it will not restore the feeling of a normal unaffected knee. The patient had no questions after our discussion, voiced understanding, and wishes to proceed with surgical treatment. We will plan on using ASA forVTE prophylaxis and TXA for hemoconservation.The procedure will be scheduled at the patient's convenience. documented in this encounter Plan of Treatment Scheduled Referrals Name Type Priority Associated Diagnoses Order S chedule Orthopedic Surgery Outpatient Routine Primary Osteoarthritis 1 Occurrences Post Op (clinic) Referral Knee Right starting 06/19/2017 unti l 06/19/2020 Orthopedic Surgery Outpatient Routine Primary Osteoarthritis 1 Occurrences Post Op (clinic) Referral Knee Right starting 06/19/2017 unti l 12/20/2017 Primary Care - [facility] Outpatient Routine Primary Osteoarthritis Expected: consult (clinic) Referral Knee Right 06/19/2017 (Approximate), Expires: 06/19/2020 documented as of this encounter Visit Diagnoses Diagnosis Primary Osteoarthritis Knee Right - Prim gutierrez Pain Knee Right documented in this encounter Care Teams Weed Inspector Relationship Specialty Start Date End Date Eliseo Hoffman M.D. PCP - General 09/08/16 11/16/[address] [place] [id number] documented as of this encounter
--- OUTSIDE RECORDS SUMMARY | 2022-02-28 01:42 | XMS_ITS | Encounter Summary ---
:1940 Author Organization [facility] Address [address] [place] [address] Care Team Providers Name Role Phone Eliseo Hoffman M.D. Primary Care Provider Reason for Visit Reason Comments shuting off interstim patient is having surgery do ne and is needing it off Appointment Request (Routine) - Closed Specialty Diagnoses / Procedures Referred By Contact Refer red To Contact Urology Ignacio Mead M.D. [address] [address] Referral ID Status Reason Start Date Expiration Date Visits Requ ested Visits Authorized [id number] Closed 07/04/2017 12/31/2017 1 1 Encounter Details Date Type Department Care Team Description 07/11/2017 Office Visit Department of Urology Verónica Escalante, [facility] (Primary Dx) [place] [address] [place] [address] [phone] Social History Tobacco Use Types Packs/Day Years Used Date Smoking Tobacco: Never Smokeless Tobacco: Never Alcohol Use Standard Drinks/Week Comments No 0 (1 standard drink = 0.6 oz pure alcoho l) Sex Assigned at Date Recorded Female 09/25/2017 1:20 PM CDT documented as of this encounter Last Filed Vital Signs Vital Sign Reading Time Taken Comments Blood Pressure 158/88 07/11/2017 11:07 AM CDT Pulse 78 07/11/2017 11:07 AM CDT Temperature 36 ??C (96.8 ??F) 07/11/2017 11:07 AM CDT Respiratory Rate - - Oxygen Saturation - - Inhaled Oxygen Concentration - - Weight - - Height - - Body Mass Index - - documented in this encounter Progress Notes Verónica Escalante APRN, C.N.P. - 07/11/2017 11:00 AM CDT SUBJECTIVE CHIEF COMPLAINT/REASON FOR VISIT Interstim HISTORY OF PRESENT ILLNESS Zoe is a pleasant 76-year-old female here today with her fiancee to have her InterStim turned off.She of is having knee replacement and wants to verify that she is able to turn this off prior to hersurgery. She has no other urological concerns at this time. The following portions of the patient's history were reviewed and updated as appropriate: allergies,current medications, family history, medical history, social history, surgical history and problem list. REVIEW OF SYSTEMS Musculoskeletal: Positive for arthralgias and pain or stiffness in the joints. OBJECTIVE Vitals: 07/11/17 1107 BP: 158/88 Patient Position: Sitting Pulse: 78 Temp: 36 ??C TempSrc: Temporal PHYSICAL EXAM Vitals and [...] ulcerations. ASSESSMENT / PLAN #1 Urinary Retention, Interstim Assistance Her InterStim is turned off. Instructions are written out so that her fiancee can help her to restart this after surgery. If there are any questions or concerns when attempting to re-start her InterStim, they will contact us. We will see her again in the Urology Department at her next regularly scheduled appointment. All of their questions have been answered today and they are in agreement with the plan that we have made. Signed by: Verónica Escalante APRN, C.N.P. 08/07/2017 7:24 AM documented in this encounter Plan of Treatment Not on filedocumented as of this encounter Visit Diagnoses Diagnosis Retention Urinary - Primary documented in this encounter Care Teams Internet Project Manager Relationship Specialty Start Date End Date Eliseo Hoffman M.D. PCP - General 09/08/16 11/16/[address] [place] [id number] documented as of this encounter
--- OUTSIDE RECORDS SUMMARY | 2022-02-28 01:42 | XMS_ITS | Encounter Summary ---
:1940 Author Organization [facility] Address [address] [place] [address] Care Team Providers Name Role Phone Eliseo Hoffman M.D. Primary Care Provider Reason for Visit Reason Onset Date Comments Pre-op Faxed 07/11/2017 Encounter Details Date Type Department Care Team Description 07/11/2017 Clinical Communication Department of Nidhi Skelton, Pre-op Faxed [facility] Internal L.P.N. Medicine in [address] [address] [place], [place] [phone] (Work) [phone] Social History Tobacco Use Types Packs/Day Years Used Date Smoking Tobacco: Never Smokeless Tobacco: Never Alcohol Use Standard Drinks/Week Comments No 0 (1 standard drink = 0.6 oz pure alcoho l) Sex Assigned at Date Recorded Female 09/25/2017 1:20 PM CDT documented as of this encounter Miscellaneous Notes Telephone Encounter - Nidhi Skelton, L.P.N. - 07/11/2017 9:17 AM CDT Patient's pre-op information including office note from 07/04/2017, EKG, sleep apnea screening, and lab results faxed to [facility] for patient's upcoming surgery with Dr. Mead. documented in this encounter Plan of Treatment Not on filedocumented as of this encounter Visit Diagnoses Not on filedocumented in this encounter Care Teams Forging Press Setter Up Relationship Specialty Start Date End Date Eliseo Hoffman M.D. PCP - General 09/08/16 11/16/[address] [place] [address] [place] [address] documented as of this encounter
--- OUTSIDE RECORDS SUMMARY | 2022-02-28 01:42 | XMS_ITS | Encounter Summary ---
:1940 Author Organization [facility] Address [address] [place] [id number] Care Team Providers Name Role Phone Eliseo Hoffman M.D. Primary Care Provider Reason for Referral Outpatient (Routine) - Closed Specialty Diagnoses / Procedures Referred By Contact Refer red To Contact Rheumatology Diagnoses Polymyalgia Rheumatica (HCC) Dee Dee Murray M.D. [facility] Procedures Rheumatology - Diagnosis eConsult [address] [place] [phone] Referral ID Status Reason Start Date Expiration Date Visits Requ ested Visits Authorized [id number] Closed 08/17/2017 08/17/2018 1 1 utpatient (Routine) - Closed Specialty Diagnoses / Procedures Referred By Contact Refer red To Contact Family Medicine Diagnoses Polymyalgia Rheumatica (HCC) Dee Dee Murray M.D. [facility] [address] [place] [phone] Referral ID Status Reason Start Date Expiration Date Visits Requ ested Visits Authorized [id number] Closed 08/14/2017 02/10/2018 1 1 Scheduling Instructions Polymyalgia rheumatica Reason for Visit Reason Comments Other joint pain all over Encounter Details Date Type Department Care Team Description 08/14/2017 Office Visit Department of Family Dee Dee Murray, Polymy algia Rheumatica (HCC) (Primary Dx); Shyla Gann M.D. Arthroplasty Total Knee Replacement Stat us Post Right [facility], in [place], [address] [place] [address] [id number] THOMAS DUVAL [phone] (Work) [phone] Social History Tobacco Use Types Packs/Day Years Used Date Smoking Tobacco: Never Smokeless Tobacco: Never Alcohol Use Standard Drinks/Week Comments No 0 (1 standard drink = 0.6 oz pure alcoho l) Sex Assigned at Date Recorded Female 09/25/2017 1:20 PM CDT documented as of this encounter Last Filed Vital Signs Vital Sign Reading Time Taken Comments Blood Pressure 160/60 08/14/2017 1:48 PM CDT Pulse 84 08/14/2017 1:44 PM CDT Temperature 37 ??C (98.6 ??F) 08/14/2017 1:44 PM CDT Respiratory Rate 20 08/14/2017 1:44 PM CDT Oxygen Saturation - - Inhaled Oxygen Concentration - - Weight 72.9 kg (160 lb 11.5 oz) 08/14/2017 1:44 PM CDT Height - - Body Mass Index 29.58 07/04/2017 2:00 PM CDT documented in this encounter Patient Instructions Patient InstructionsDee Dee Murray M.D. - 08/14/2017 2:15 PM CDT 1. Polymyalgia Rheumatica (HCC) -Case discussed with Rheumatology on-call at [facility] and recommended to go up to 20 mg of prednisone and continue at that dose for one month -Will check inflammatory markers and added RA workup -Follow up in 2 weeks - predniSONE (DELTASONE) 5 mg tablet; Take 4 tablets (20 mg total) by mouth daily with breakfast. Dispense: 120 tablet; Refill: 0 - Rheumatoid Factor - Cyclic Citrullinated Peptide Antibodies, IgG - CRP (C-Reactive Protein) - Sedimentation Rate - Family Medicine office visit (clinic); Future 2. 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 Dispense: 30 tablet; Refill: 0 documented in this encounter Progress Notes Dee Dee Murray M.D. - 08/14/2017 2:15 PM CDT [facility]ILY [facility]IC[facility] IN [place], [place] Chief Complaint Chief Complaint Patient presents with ??? Other joint pain all over HPI Joint pain: Vanessa Torres is a 76 years old female who is here with her friend. Patient reportsshe has been dealing with pain all over shoulder joints, arm, pelvic and thighs for the past one week and pain has been getting worse. Patient has history of polymyalgia rheumatica and has been on prednisone 5 mg daily for the past one month. Patient reports she was diagnosed with PMR since 2014 and has been on prednisone since then. Her sed rate was elevated at 88 on July 04, 2017. Patient reports she went up to 15 mg of prednisone daily since she has pain all over her joint. Patient states the high dose of prednisone provides a relief until 12:00 pm then her symptoms starts all over again. Patien t states her pain is getting worse and not able to do anything due to pain. Patient states she notices a muscle spasm on the left knee pain since she had right knee replacement on 3.5 weeks ago. Positive for nausea. The following portions of the patient's history were reviewed and updated as appropriate in the EMR:allergies, current medications and problem list on 08/14/17 REVIEW OF SYSTEMS Negative review of major organ systems apart from that noted in the HPI PHSYCIAL EXAM Temperature: 37 ??C Resp Rate: 20 Blood Pressure: 160/60 Weight: 72.9 kg Constitutional: She is oriented to person, place, and time. She appears well- developed and well-nourished. Distressed: mild Cardiovascular: Normal rate, regular rhythm and normal heart sounds. No murmur heard. Pulmonary/Chest: Effort normal and breath sounds normal. No respiratory distress. She has no wheezes. She has no rales. Musculoskeletal: Right shoulder: She exhibits tenderness. Left shoulder: She exhibits tenderness. Right elbow: Tenderness found. Left elbow: Tenderness found. Right hip: She exhibits tenderness. Left hip: She exhibits tenderness. Right upper arm: She exhibits tenderness. Left upper arm: She exhibits tenderness. Right forearm: She exhibits bony tenderness. Left forearm: She exhibits tenderness. Right upper leg: She exhibits tenderness. She exhibits no bony tenderness. Left upper leg: She exhibits tenderness. Neurological: She is alert and oriented to person, place, and time. LABS/IMAGING No results found for this or any previous visit (from the past 24 hour(s)). ASSESSMENT AND PLAN Patient Instructions 1. Polymyalgia Rheumatica (HCC) -Case discussed with rheumatology on-call physician at [facility] and recommended to go up to 20 mg of prednisone and continue at that dose for one month. Will then taper down by 2.5 mg every 2 weeks. Once patient reaches at 10 mg then will continue on 10 mg for one month. Will taper by 1 mg every [address] Patient [address] drive to [place] and does not have anyone to drive to [facility] for rheumatology consult. -Will check inflammatory markers and added RA workup -Follow up in 2 weeks - predniSONE (DELTASONE) 5 mg tablet; Take 4 tablets (20 mg total) by mouth daily with breakfast. Dispense: 120 tablet; Refill: 0 - Rheumatoid Factor - Cyclic Citrullinated Peptide Antibodies, IgG - CRP (C-Reactive Protein) - Sedimentation Rate - [facility] Medicine office visit (clinic); Future 2. 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 Dispense: 30 tablet; Refill: 0 Options for treatment and follow-up care were reviewed with the patient . Vanessa Andino and/or guardian engaged in the decision making process and verbalized understanding of the options discussed and agreed with the final plan. A total of 40 minutes were spent [id number] with the patient during this encounter and 35 minutes were spent on counseling, discussing the plan and coordination of care. Dee Dee Murray M.D. ?? Dee Dee Murray M.D. - 08/14/2017 2:15 PM CDT I called the patient and discussed with her that her labs are abnormal and consistent with possible rheumatoid arthritis(positive RF and elevated CCP antibody). I have placed E-consult for rheumatologyfor the next step since patient cannot drive to [facility] for appointment. Discussed with the patient that her insurance will get charge for E-consult for rheumatology. Patient verbalized understandingthe plan and agrees with E-consult. Dee Dee Murray MD documented in this encounter Miscellaneous Notes Addendum Note - Dee Dee Murray M.D. - 08/14/2017 2:15 PM CDT Addended by: DEE DEE MURRAY on: 08/17/2017 09:04 AM Modules accepted: Orders documented in this encounter Plan of Treatment Scheduled Referrals Name Type Priority Associated Diagnoses Order S [facility] Medicine Outpatient Referral Routine Polymyalgia Expec sheryl: office visit Rheumatica (HCC) 08/14/2017 (clinic) (Approximate), Expires: 08/14/2020 documented as of this encounter Procedures Procedure Name Priority Date/Time Associated Comments Diagnosis CYCLIC CITRULLINATED Routine 08/14/2017 2:59 PM Polymyalgia R esults for this PEPTIDE ABS, IGG, S CDT Rheumatica ([facility]) proc edure are in the results section. SEDIMENTATION RATE, B Routine 08/14/2017 2:59 PM Polymyalgia Results for this CDT Rheumatica (HCC) procedure a re in the results section. RHEUMATOID FACTOR, S/P Routine 08/14/2017 2:59 PM Polymyalgia Results for this CDT Rheumatica (HCC) procedure a re in the results section. C-REACTIVE PROTEIN Routine 08/14/2017 2:59 PM Polymyalgia Res ults for this (CRP), S/P CDT Rheumatica ([facility]) procedure a re in the results section. documented in this encounter Results (ABNORMAL) Sedimentation Rate (08/14/2017 2:59 PM CDT) [facility] gist Method Time Signature Sedimentation 62 (H) 0 - 29 08/14/2017 [facility] Rate, B mm/1 h 3:46 PM CDT [facility] Specimen Anatomical Collection Method Collection Time Receive d Time (Source) Location / / Volume Laterality Blood (Blood, 08/14/2017 2:59 PM 08/15/19 18 3:00 Venous) CDT PM CDT Dee Dee Murray M.D. LAB BLOOD ADD-ON Performing Organization Address City/State/ZIP Code Phon e Number [facility]- [address] [place] [address] [place] [facility]- [address] [place], [place] [address], [facility] (ABNORMAL) CRP (C-Reactive Protein) (08/14/2017 2:59 PM CDT) P athologist Signature C-Reactive 22.5 (H) <=8.0 mg/L 08/14/2017 [facility] Protein (CRP), 9:36 PM CDT [facility] Specimen Anatomical Collection Method Collection Time Receive d Time (Source) Location / / Volume Laterality Blood (Blood, 08/14/2017 2:59 PM 08/15/19 18 9:17 Venous) CDT PM CDT Dee Dee Murray M.D. LAB BLOOD ADD-ON Performing Organization Address City/[facility]/ZIP Code Phon e Number [facility]- [address] [place] [address] [place] [facility] (ABNORMAL) Cyclic Citrullinated Peptide Antibodies, IgG (08/14/2017 2:59 PM CDT) [facility] gist Method Time Signature Cyclic 36.8 (H) <20.0 08/16/2017 [facility] Citrullinated (Negative 11:06 AM LABORATORIES - Peptide Ab, S ) U CDT [facility] Comment: Interpretation: Weak Positive ( 20.0-39.9) Specimen Anatomical Collection Method Collection Time Receive d Time (Source) Location / / Volume Laterality Blood (Blood, 08/14/2017 2:59 PM 08/17/19 18 6:27 Venous) CDT AM CDT Dee Dee Murray M.D. LAB BLOOD ADD-ON Performing Organization Address City/State/ZIP Code Phon e Number [facility] - [address] [place], [place] [address] [facility] (ABNORMAL) Rheumatoid Factor (08/14/2017 2:59 PM CDT) P athologist Signature Rheumatoid 95 (H) <15 IU/mL 08/14/2017 [facility] Factor, S 9:36 PM CDT [facility] Specimen Anatomical Collection Method Collection Time Receive d Time (Source) Location / / Volume Laterality Blood (Blood, 08/14/2017 2:59 PM 08/15/19 18 9:17 Venous) CDT PM CDT Dee Dee Murray M.D. LAB BLOOD ADD-ON Performing Organization Address City/State/ZIP Code Phon e Number [facility]- [address] [place] [address] [place] [facility] documented in this encounter Visit Diagnoses Diagnosis Polymyalgia Rheumatica (HCC) - Primary Arthroplasty Total Knee Replacement Stat us Post Right documented in this encounter Care Teams Industrial Maintenance Tech Relationship Specialty Start Date End Date Eliseo Hoffman M.D. PCP - General 09/08/16 11/16/[address] [place] [id number] documented as of this encounter
--- OUTSIDE RECORDS SUMMARY | 2022-02-28 01:42 | XMS_ITS | Encounter Summary ---
:1940 Author Organization [facility] Address [address] [place] [address] Care Team Providers Name Role Phone Eliseo Hoffman M.D. 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 [facility] [address] [place] [id number] Referral ID Status Reason Start Date Expiration Date Visits Requ ested Visits Authorized [id number] Closed 08/25/2017 08/25/2018 1 1 Scheduling Instructions Rheumatoid arthritis follow-up Reason for Visit Reason Comments Follow-up rheumatology recommendations Encounter Details Date Type Department Care Team Description 08/25/2017 Office Visit Department of Sherry Padilla Rheuma toid Arthritis MedicineShyla M.D. With [facility], in [address] Multiple Sites Without [place], [place] Organ Or Systems [address] [place] [phone] Involvement (HCC) [place], [place] [phone] (Primary Dx) [phone] (Work) [phone] Social History Tobacco Use Types Packs/Day Years Used Date Smoking Tobacco: Never Smokeless Tobacco: Never Alcohol Use Standard Drinks/Week Comments No 0 (1 standard drink = 0.6 oz pure alcoho l) Sex Assigned at Date Recorded Female 09/25/2017 1:20 PM CDT documented as of this encounter Last Filed Vital Signs Vital Sign Reading Time Taken Comments Blood Pressure 152/64 08/25/2017 1:20 PM CDT Pulse 72 08/25/2017 1:17 PM CDT Temperature 36.5 ??C (97.7 ??F) 08/25/2017 1:17 PM CDT Respiratory Rate 16 08/25/2017 1:17 PM CDT Oxygen Saturation - - Inhaled Oxygen Concentration - - Weight 72.2 kg (159 lb 2.8 oz) 08/25/2017 1:17 PM CDT Height - - Body Mass Index 29.29 07/04/2017 2:00 PM CDT documented in this encounter Patient Instructions Patient InstructionsSherry Murray M.D. - 08/25/2017 1:30 PM CDT 1. 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 Folic 1 mg daily. -Continue prednisone 20 mg daily for now until 4 weeks -Follow up in 4 weeks -Will check hepatic panel and hepatitis workup today. - Hepatic Function Panel - HCV Ab Scrn w/Reflex to HCV PCR, Serum - Hepatitis B Surface Antigen - Hepatitis B Core IgM Ab - HBs Antibody, Serum - Hepatitis B Core Total Ab - methotrexate 2.5 mg tablet; Take 3 tablets (7.5 mg total) by mouth once a week. Dispense: 12 tablet; Refill: 3 - folic acid 1 mg tablet; Take 1 tablet (1 mg total) by mouth daily. Dispense: 90 tablet; Refill: 3 - Family Medicine office visit (clinic) - Self; Future documented in this encounter Progress Notes Sherry Murray M.D. - 08/25/2017 1:30 PM CDT DEPARTMENT OF FAMILY MEDICINE IN [place] Chief Complaint Chief Complaint Patient presents with ??? Follow-up rheumatology recommendations HPI Rheumatoid arthritis: Patient was on August 14, 2017 for multiple joint pain and has been progressivelygetting worse. Patient states she has been feeling better since we increased her prednisone to 20 mgdaily. We did E-consult for rheumatology since she had laboratory blood testing revealed positive results for anti-CCP antibodies, rheumatoid factor, sed rate, C-reactive protein. Patient was diagnosedwith rheumatoid arthritis. Patient is not able to drive to [place] and does not have anyone to drive her to [place] for rheumatology appointment. Home Health Care Case Manager recommended to start methotrexate 7.5 mg weekly and titrate up by 2.5 mg every 2-4 weeks. Discussed manager port recommendations with the patient. We will continue prednisone and will start methotrexate. Will also check hepatitis serology and hepatic panel today. ?? The following portions of the patient's history were reviewed and updated as appropriate in the EMR:allergies, current medications, medical history and problem list on 08/25/17 REVIEW OF SYSTEMS Negative review of major organ systems apart from that noted in the HPI PHSYCIAL EXAM Temperature: 36.5 ??C Resp Rate: 16 Blood Pressure: 152/64 Weight: 72.2 kg Constitutional: She is oriented to person, place, and time. She appears well- developed and well-nourished. HENT: Head: Normocephalic and atraumatic. Cardiovascular: Normal rate, regular rhythm and normal heart sounds. No murmur heard. Pulmonary/Chest: Effort normal and breath sounds normal. No respiratory distress. She has no wheezes. She has no rales. Neurological: She is alert and oriented to person, place, and time. LABS/IMAGING Component Latest Ref Rng & Units 08/14/2017 Rheumatoid Factor, S <15 IU/mL 95 (H) Cyclic Citrullinated Peptide Ab, S <20.0 (Negative) U 36.8 (H) C-Reactive Protein (CRP), S <=8.0 mg/L 22.5 (H) Sedimentation Rate, B 0 - 29 mm/1 h 62 (H) ASSESSMENT AND PLAN Patient Instructions 1. 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 Anti CCP positive at 36.8 units. Rheumatoid factor 95 IU/mL. EGFR 63. E-consult manager port recommended to start methotrexate 7.5 mg weekly and titrate up by 2.5 mg every 2-4 weeks as needed. Discussed rheumatology recommendations with the patient. We will continue prednisone 20 mg daily and will start methotrexate 7.5 mg weekly. Will also check hepatitis serology and hepatic panel today. -Will start methotrexate 7.5 mg weekly. Added folic 1 mg daily. -Continue prednisone 20 mg daily for now until 4 weeks -Follow up in 4 weeks -Will check hepatic panel and hepatitis workup today. - Hepatic Function Panel - HCV Ab Scrn w/Reflex to HCV PCR, Serum - Hepatitis B Surface Antigen - Hepatitis B Core IgM Ab - HBs Antibody, Serum - Hepatitis B Core Total Ab - methotrexate 2.5 mg tablet; Take 3 tablets (7.5 mg total) by mouth once a week. Dispense: 12 tablet; Refill: 3 - folic acid 1 mg tablet; Take 1 tablet (1 mg total) by mouth daily. Dispense: 90 tablet; Refill: 3 - Family Medicine office visit (clinic) - Self; Future Options for treatment and follow-up care were reviewed with the patient . Vanessa Chowdaryt and/or guardian engaged in the decision making process and verbalized understanding of the options discussed and agreed with the final plan. A total of 25 minutes were spent [id number] with the patient during this encounter and 20 minutes were spent on counseling, discussing the plan and coordination of care. Sherry Murray M.D. documented in this encounter Plan of Treatment Scheduled Referrals Name Type Priority Associated Diagnoses Order S [facility] Medicine Outpatient Referral Routine Rheumatoid Arthrit is Expected: office visit With Rheumatoid 09/24/2017 (clinic) - Self Factor Multiple Sites (Ap proximate), Without Organ Or Expires: Systems Involvement 08/26/19 21 (HCC) documented as of this encounter Procedures Procedure Name Priority Date/Time Associated Diagnosis Comme nts HEPATIC FUNCTION Routine 08/25/2017 2:00 PM Rheumatoid Arthrit is Results for this PANEL, S CDT With Rheumatoid procedure ar e in Factor Multiple the results Sites Without Organ section. Or Systems Involvement (HCC) HCV AB SCRN Routine 08/25/2017 2:00 PM Rheumatoid Arthritis R esults for this W/REFLEX TO HCV CDT With Rheumatoid procedure are in PCR, S Factor Multiple the results Sites Without Organ section. Or Systems Involvement (HCC) HEP B CORE AB, IGM Routine 08/25/2017 2:00 PM Rheumatoid Arthr itis Results for this CDT With Rheumatoid procedure ar e in Factor Multiple the results Sites Without Organ section. Or Systems Involvement (HCC) HBC TOTAL AB, SERUM Routine 08/25/2017 2:00 PM Rheumatoid Arth ritis Results for this CDT With Rheumatoid procedure ar e in Factor Multiple the results Sites Without Organ section. Or Systems Involvement (HCC) HBS ANTIBODY, SERUM Routine 08/25/2017 2:00 PM Rheumatoid Arth ritis Results for this CDT With Rheumatoid procedure ar e in Factor Multiple the results Sites Without Organ section. Or Systems Involvement (HCC) HEPATITIS B SURFACE Routine 08/25/2017 2:00 PM Rheumatoid Arth ritis Results for this ANTIGEN CDT With Rheumatoid procedure ar e in Factor Multiple the results Sites Without Organ section. Or Systems Involvement (HCC) documented in this encounter Results Hepatitis B Core Total Ab (08/25/2017 2:00 PM CDT) athologist Signature HBc Total Ab, Negative Negative 08/26/2017 [facility] 8:11 AM CDT [facility] [place] Specimen Anatomical Collection Method Collection Time Receive d Time (Source) Location / / Volume Laterality Blood (Blood, 08/25/2017 2:00 PM 08/27/19 18 6:58 Venous) CDT AM CDT Sherry Murray M.D. LAB MICROBIOLOGY - BLOOD ORD ERABLES Performing Organization Address City/State/ZIP Code Phon e Number [facility] [address] [place], [place] [address] HBs Antibody, Serum (08/25/2017 2:00 PM CDT) athologist Signature HBs Antibody, Positive 08/25/2017 [facility] 10:19 PM CDT [facility] Comment: Biotin has been identified by the gwen mendez as a potential interfering substance. ??Higher concentr ations of biotin may be found in multivitamins, hair/nail supple ments, and workout supplements. ??If the result does not [facility] clinical observations, repeat testing after patient refrains fr om the use of supplements for at least 12 hours. ----REFERENCE VALUE---- Unvaccinated: Negative Vaccinated: Positive HBs Antibody, Quantitative, 252.5 08/25/2017 1 0:19 PM CDT [facility] Comment: ----REFERENCE VALUE---- <8.50: Negative 8.50-11.49: Indeterminate >=11.50: Positive Specimen Anatomical Collection Method Collection Time Receive d Time (Source) Location / / Volume Laterality Blood (Blood, 08/25/2017 2:00 PM 08/26/19 18 9:55 Venous) CDT PM CDT Sherry Murray M.D. LAB MICROBIOLOGY - BLOOD ORD ERAMATTY Performing Organization Address City/[facility]/ZIP Code Phon e Number [address] [address] [place] [facility] Hepatitis B Core IgM Ab (08/25/2017 2:00 PM CDT) athologist Signature HBc IgM Ab, S Negative Negative 08/26/2017 [facility] 7:58 AM CDT [facility] Specimen Anatomical Collection Method Collection Time Receive d Time (Source) Location / / Volume Laterality Blood (Blood, 08/25/2017 2:00 PM 08/27/19 18 6:58 Venous) CDT AM CDT Sherry Murray M.D. LAB MICROBIOLOGY - BLOOD ORD ERAMATTY Performing Organization Address [facility]/ZIP Code Phon e Number [facility] [address] [place], [place] [address] [place] [address] Hepatitis B Surface Antigen (08/25/2017 2:00 PM CDT) [facility] Method Time Signature HBs Antigen, Nonreactive Nonreactive 08/25/2017 [facility] S 10:19 PM CDT [facility] Comment: Biotin has been identified by the gwen mendez as a potential interfering substance. ??Higher concentr ations of biotin may be found in multivitamins, hair/nail supple ments, and workout supplements. ??If the result does not [facility] clinical observations, repeat testing after patient refrains fr om the use of supplements for at least 12 hours. Specimen Anatomical Collection Method Collection Time Receive d Time (Source) Location / / Volume Laterality Blood (Blood, 08/25/2017 2:00 PM 08/26/19 18 9:55 Venous) CDT PM CDT Sherry Murray M.D. LAB MICROBIOLOGY - BLOOD ORD JOSUÉ Performing Organization Address City/[facility]/ZIP Code Phon e Number [address] [address] [place] [facility] HCV Ab Scrn w/Reflex to HCV PCR, Serum (08/25/2017 2:00 PM CDT) athologist Signature HCV Ab Screen, Negative Negative 08/26/2017 [facility] S 8:11 AM CDT [facility] Comment: Kmoule-ka-ktpgae ratio is <1.00 . Specimen Anatomical Collection Method Collection Time Receive d Time (Source) Location / / Volume Laterality Blood (Blood, 08/25/2017 2:00 PM 08/27/19 18 6:58 Venous) CDT AM CDT Sherry Murray M.D. LAB MICROBIOLOGY - BLOOD ORD ERABLES Performing Organization Address City/State/[facility] Code Phon e Number [facility] [address] [place], [place] [address] [facility] Hepatic Function Panel (08/25/2017 2:00 PM CDT) [facility] gist Method Time Signature Bilirubin, Total, S 0.4 <=1.2 08/25/2017 [facility] mg/dL 3:55 PM CDT [facility] Bilirubin, Direct, S <0.2 0.0 - 0.3 08/25/2017 [facility] RAZ mg/dL 4:32 PM CDT [facility] Aspartate 21 8 - 43 08/25/2017 [facility] Aminotransferase U/L 3:55 PM CDT [facility] [place] [facility] Alanine 24 7 - 45 08/25/2017 [facility] Aminotransferase U/L 3:55 PM CDT [facility] [place] Alkaline 84 55 - 142 08/25/2017 [facility] Phosphatase, S U/L 3:55 PM CDT [facility] Albumin, S 4.0 3.5 - 5.0 08/25/2017 [facility] g/dL 3:55 PM CDT [facility] Protein, Total, S 6.9 6.3 - 7.9 08/25/2017 [facility] g/dL 3:55 PM CDT [facility] Specimen Anatomical Collection Method Collection Time Receive d Time (Source) Location / / Volume Laterality Blood (Blood, 08/25/2017 2:00 PM 08/26/19 18 3:35 Venous) CDT PM CDT Sherry Murray M.D. LAB BLOOD ADD-ON Performing Organization Address City/State/ZIP Code Phon e Number [facility] [address] [place] [address] LAB documented in this encounter Visit Diagnoses Diagnosis Rheumatoid Arthritis With Rheumatoid Fac tor Multiple Sites Without Organ Or Systems Involvement (HCC) - Primary documented in this encounter Care Teams Production Expert Relationship Specialty Start Date End Date Eliseo Hoffman M.D. PCP - General 09/08/16 11/16/17 [address] [facility] [place] [address] documented as of this encounter
--- OUTSIDE RECORDS SUMMARY | 2022-02-28 01:42 | XMS_ITS | Encounter Summary ---
:1940 Author Organization [facility] Address [address] [place] [address] Care Team Providers Name Role Phone Eliseo Hoffman M.D. Primary Care Provider Encounter Details Date Type Department Care Team Description 08/22/2017 Clinical Communication Department of [facility] Sherry Murray, Medicine, [facility], in [address] [facility] [address] [place], [place] [phone] [phone] (Work) [phone] Social History Tobacco Use Types Packs/Day Years Used Date Smoking Tobacco: Never Smokeless Tobacco: Never Alcohol Use Standard Drinks/Week Comments No 0 (1 standard drink = 0.6 oz pure alcoho l) Sex Assigned at Date Recorded Female 09/25/2017 1:20 PM CDT documented as of this encounter Miscellaneous Notes Telephone Encounter - Farhana Loomis L.PReginaNRegina - 08/22/2017 10:32 AM CDT Contacted patient. Transferred to scheduling. Telephone Encounter - Sherry Murray M.D. - 08/22/2017 10:09 AM CDT Please call the patient and ask her to schedule an appointment with me either tomorrow or next week if possible. We will need to go over rheumatology recommendations. Sherry Murray MD documented in this encounter Plan of Treatment Not on filedocumented as of this encounter Visit Diagnoses Not on filedocumented in this encounter Care Teams Marketing Ambassador Relationship Specialty Start Date End Date Eliseo Hoffman M.D. PCP - General 09/08/16 11/16/[address] [place] [address] [place] [address] documented as of this encounter
--- OUTSIDE RECORDS SUMMARY | 2022-02-28 01:42 | XMS_ITS | Encounter Summary ---
:1940 Author Organization [facility] Address [address] [place] [address] Care Team Providers Name Role Phone Eliseo Hoffman M.D. Primary Care Provider Reason for Visit Reason Onset Date Comments Medtronic Interstim device/Right TKA surgery on 07/12/17 with 07/04/2017 Encounter Details Date Type Department Care Team Description 07/04/2017 Clinical Department of Verónica Escalante Medtronic Interstim Communication Orthopedic Surgery LARS Love C.NRegina PRegina device/Right TKA in [address] surgery on 07/12/17 [place], [place] with [address] [address] [place], [place] [phone] [phone] (Work) [phone] Social History Tobacco Use Types Packs/Day Years Used Date Smoking Tobacco: Never Smokeless Tobacco: Never Alcohol Use Standard Drinks/Week Comments No 0 (1 standard drink = 0.6 oz pure alcoho l) Sex Assigned at Date Recorded Female 09/25/2017 1:20 PM CDT documented as of this encounter Miscellaneous Notes Telephone Encounter - Priti Ramirez R.N. - 07/05/2017 5:02 PM CDT Patient called urology and inquired about appointment with Verónica to turn off her device. Confirmed her appointment for July 11 at 11 am with 10:45 am check in time. Verbalized understanding and no further questions/concerns. Telephone Encounter - Sheyla Aguilar L.P.N. - 07/04/2017 3:00 PM CDT Pt notified in person at appt with Dr Christine that Verónica in Urology would be happy to see her to help shut off bladder device. Pt verbalized understanding and agreement, Echo from scheduling made apptfor 07/11/17 for this with Verónica Telephone Encounter - Kayleigh Nation CReginaN.ARegina - 07/04/2017 2:10 PM CDT [email or web address] Telephone Encounter - Verónica Escalante APRN CReginaN.PRegina - 07/04/2017 9:35 AM CDT I am more than willing to see her to help with this. Telephone Encounter - Sheyla Aguilar L.P.N. - 07/04/2017 8:33 AM CDT Vanessa Sanches is scheduled for a right TKA on 07/12/[address] Mead at [facility] and she is wondering if you could see her the day before surgery and help her shut off her Medtronic Interstim bladder device, she states she has a hard time doing it herself at home. Please advise. Pt has her pre-op physical with Dr Christine at 2 pm today and is wanting to know your advice by then documented in this encounter Plan of Treatment Not on filedocumented as of this encounter Visit Diagnoses Not on filedocumented in this encounter Care Teams Horse Race Timer Relationship Specialty Start Date End Date Eliseo Hoffman M.D. PCP - General 09/08/16 11/16/17 [address] [place] [id number] documented as of this encounter
--- OUTSIDE RECORDS SUMMARY | 2022-02-28 01:42 | XMS_ITS | Encounter Summary ---
:1940 Author Organization [facility] Address [address] [place] [address] Care Team Providers Name Role Phone Eliseo Hoffman M.D. Primary Care Provider Reason for Referral Outpatient (Routine) - Closed Specialty Diagnoses / Procedures Referred By Contact Refer red To Contact Orthopedic Surgery Hetal Mead M.D. [facility] [address] [facility] [address], [address] [place] [address] Referral ID Status Reason Start Date Expiration Date Visits Requ ested Visits Authorized [id number] Closed 08/22/2017 08/22/2018 1 1 Reason for Visit Reason Comments Post-op 6 WK right TKA done on Post-op Follow-up Outpatient (Routine) - Closed Specialty Diagnoses / Procedures Referred By Contact Refer red To Contact Orthopedic Surgery Diagnoses Primary Osteoarthritis Knee Right Hetal Mead M.D. [facility] [address] [facility] [address], [facility] [address] [place] [address] Referral ID Status Reason Start Date Expiration Date Visits Requ ested Visits Authorized [id number] Closed 06/19/2017 12/16/2017 1 1 Encounter Details Date Type Department Care Team Description 08/22/2017 Office Visit Department of Hetal Mead, Primary Oste oarthritis Knee Left (Primary Dx); Orthopedic Surgery in [place] Primary Osteoarthritis Knee Right [place], [place] [address], [address] [place] [address] [address] [place] [id number] Social History Tobacco Use Types Packs/Day Years Used Date Smoking Tobacco: Never Smokeless Tobacco: Never Alcohol Use Standard Drinks/Week Comments No 0 (1 standard drink = 0.6 oz pure alcoho l) Sex Assigned at Date Recorded Female 09/25/2017 1:20 PM CDT documented as of this encounter Progress Notes Hetal Mead M.D. - 08/22/2017 1:00 PM CDT Subjective: Patient is 6 weeks status post total knee and doing very well. She occasionally uses her cane but isoften going without any assistive device at this point. She thinks the physical therapy has been over doing it on her left knee. Objective: Right knee has full extension no extensor lag and flexion to about 120??. X-rays were taken today are reviewed these personally independently. There is a total knee arthroplasty in place. There is mild lateral tilt of the patella. Alignment otherwise are in good position. Assessment: Six weeks postop and doing very well. Plan: Continue activity as tolerated for her right knee. She may discontinue her physical therapy at this point. Her left knee was injected without difficulty. Follow-up at her 1 year anniversary. documented in this encounter Procedure Notes Hetal Mead M.D. - 08/22/2017 1:00 PM CDTAssociated Order(s): LARGE JOINT INJECTION Post-Procedure Diagnose(s): Primary Osteoarthritis Knee Right Large joint asp-inject Date/Time: 08/22/2017 12:59 PM Performed by: HETAL MEAD Authorized by: HETAL MEAD Chief Meteorologist utilized: interpreter and translator not needed Risks discussed with: patient Procedural risks discussed, including (but not limited to) the following: hyperglycemia, transient increased pain, bruising, possible continued pain, soft tissue reaction, stiffness, hematoma and bleeding Consent obtained: written All relevant documentation and testing were reviewed [...] applicable for the procedure: yes Skin preparation: alcohol Anesthesia method: none Procedure location: knee - Knee site: L knee joint Site prep: patient was prepped and draped in usual sterile fashion Patient position: seated Procedural approach: anteromedial Procedure performed: injection only Needle gauge: 21 G The following medications were administered at the target site(s): Local anesthetic: 4 mL lidocaine 10 mg/mL (1 %) Corticosteroid: 9 mg betamethasone acetate & sodium phosphate 6 mg/mL Procedure completed successfully: yes Complications: no apparent complications Discharge instructions: ice area as needed for comfort documented in this encounter Plan of Treatment Scheduled Referrals Name Type Priority Associated Order Schedule Diagnoses Orthopedic Surgery Outpatient Referral Routine Ex pected: office visit 08/22/2018 (clinic) (Approximate), Expires: 08/22/2020 documented as of this encounter Procedures Procedure Name Priority Date/Time Associated Diagnosis Comme nts [place] ARTHCS ASP/INJ Routine 08/22/2017 1:00 PM Primary Osteoarth ritis Results for this MJR JT WO US CDT Knee Right procedure are i n the results section. documented in this encounter Results [facility] ARTHCS ASP/INJ MJR JT WO US (08/22/2017 1:00 PM CDT) Narrative MMODAL - 08/22/2017 1:00 PM CDT Hetal Mead M.D. ? 08/22/2017 ??1:10 PM Large joint asp-inject Date/Time: 08/22/2017 12:59 PM Performed by: HETAL MEAD Authorized by: HETAL MEAD Chief Meteorologist utilized: interpreter and translator not ne eded ?? Risks discussed with: patient Procedural risks discussed, including (b ut not limited to) the following: hyperglycemia, transient increased pain, bruising, possible continued pain, soft tissue reaction, stiffness, h ematoma and bleeding Consent obtained: written All relevant documentation and testing w ere [...] the procedure : yes ?? Skin preparation: alcohol Anesthesia method: none Procedure location: knee - Knee site: L knee joint Site prep: patient was prepped and drape d in usual sterile fashion ?? Patient position: seated Procedural approach: anteromedial Procedure performed: injection only Needle gauge: 21 G The following medications were administe red at the target site(s): ??Local anesthetic: 4 mL lidocaine 10 m g/mL (1 %) ??Corticosteroid: 9 mg betamethasone ac etate & sodium phosphate 6 mg/mL Procedure completed successfully: yes Complications: no apparent complications ?Discharge instructions: ice area as n eeded for comfort Hetal Mead M.D. PROCEDURE/MINOR SURGICAL ORD ERABLES Performing Organization Address City/State/ZIP Code Phon e Number MMODAL MMODAL NA documented in this encounter Visit Diagnoses Diagnosis Primary Osteoarthritis Knee Left - Prima ry Primary Osteoarthritis Knee Right documented in this encounter Administered Medications Inactive Administered Medications - up to 3 most recent administrations Medication Order MAR Action Action Date Dose Rate Site betamethasone acetate & sodium Given 08/22/2017 12:59 PM CDT 9 m g phosphate injection 9 mg (CELESTONE SOLUSPAN) 9 mg, intra-articular, One-Time Injection, Starting on Mon08/22/17 at 1259, For 1 dose lidocaine 10 mg/mL (1 %) injection 4 mL Given 08/22/2017 12:59 P M CDT 4 mL (XYLOCAINE) 4 mL, infiltration, One-Time Injection, Starting on Mon08/22/17 at 1259, For 1 dose documented in this encounter Care Teams Plastic Welding Machine Operator Relationship Specialty Start Date End Date Eliseo Hoffman M.D. PCP - General 09/08/16 11/16/[address] [place] [phone] (work) documented as of this encounter
--- OUTSIDE RECORDS SUMMARY | 2022-02-28 01:42 | XMS_ITS | Encounter Summary ---
:1940 Author Organization [facility] Address [address] [place] [address] Care Team Providers Name Role Phone Eliseo Hoffman M.D. Primary Care Provider Reason for Visit Reason Comments Joint Swelling discussed with physician a ifrah rial of higher prednisone at 20 mg daily with taper by 2.5 mg every 2 -4 weeks. If no better, then consider GCA. Also recommended that she ch fred RF, CCP abs Encounter Details Date Type Department Care Team Description 08/14/2017 Clinical Division of Ernste, Joint Swelling Communication Rheumatology in [place] (discussed with [place], [place] Estella physician a trial [address] of higher [place], [place]one [place] 20 [phone] mg daily with [phone] taper by 2.5 mg (Work) every 2-4 weeks. [phone] If no better, t eduardo (Fax) consider GCA. A lso recommended roro t she check RF, C CP abs) Social History Tobacco Use Types Packs/Day Years [...] on filedocumented in this encounter Care Teams Equity Sales Assistant Relationship Specialty Start Date End Date Eliseo Hoffman M.D. PCP - General 09/08/16 11/16/[address] [place] [phone] documented as of this encounter
--- OUTSIDE RECORDS SUMMARY | 2022-02-28 01:42 | XMS_ITS | Encounter Summary ---
:1940 Author Organization [facility] Address [address] [place] [address] Care Team Providers Name Role Phone Eliseo Hoffman M.D. Primary Care Provider Reason for Referral Outpatient (Routine) - Closed Specialty Diagnoses / Procedures Referred By Contact Refer red To Contact Orthopedic Surgery Diagnoses Pain Knee Right Eliseo Hoffman [facility] M.[place] [address] [place] [address] Referral ID Status Reason Start Date Expiration Date Visits Requ ested Visits Authorized [id number] Closed 06/15/2017 12/12/2017 1 1 Scheduling Instructions Schedule after imaging orders Reason for Visit Reason Comments Follow-up on R knee pain- injected 10 days ago Outpatient (Routine) - Closed Specialty Diagnoses / Procedures Referred By Contact Refer red To Contact Community Internal Eliseo Hoffman [facility] Medicine [place] [address] [place] [address] Referral ID Status Reason Start Date Expiration Date Visits Requ ested Visits Authorized [id number] Closed 06/05/2017 12/02/2017 1 1 Encounter Details Date Type Department Care Team Description 06/15/2017 Office Visit Department of Eliseo Hoffman Pain Knee R ight (Primary Dx); [facility] Internal Estella Varela Hypertension And Chronic Kidney Disease Stage 3 (HCC); Medicine in [address] Retention Urinary [place], [place] [address] [phone] (Work) [phone] Social History Tobacco Use Types Packs/Day Years Used Date Smoking Tobacco: Never Smokeless Tobacco: Never Alcohol Use Standard Drinks/Week Comments No 0 (1 standard drink = 0.6 oz pure alcoho l) Sex Assigned at Date Recorded Female 09/25/2017 1:20 PM CDT documented as of this encounter Last Filed Vital Signs Vital Sign Reading Time Taken Comments Blood Pressure 160/64 06/15/2017 2:43 PM CDT Pulse 76 06/15/2017 2:38 PM CDT Temperature 36.8 ??C (98.2 ??F) 06/15/2017 2:38 PM CDT Respiratory Rate - - Oxygen Saturation - - Inhaled Oxygen Concentration - - Weight 70 kg (154 lb 5.2 oz) 06/15/2017 2:38 PM CDT Height - - Body Mass Index 27.69 01/12/2017 2:16 PM CDT documented in this encounter Progress Notes Eliseo Hoffman M.D. - 06/15/2017 12:00 AM CDT SUBJECTIVE CHIEF COMPLAINT/REASON FOR VISIT Vanessa has reached the point where she is probably going to consider right total knee arthroplasty. HISTORY OF PRESENT ILLNESS She has had Synvisc injections which only worked for 2 months. She has gone back to corticosteroid injections which have some effect but minimal. She thinks it is time to replace her knee and since herblood pressure has gradually come under control, I think she is medically stable to do that. She is currently taking 0.2 mg of clonidine and 240 mg of long-acting Cardizem and furosemide, and the blood pressures that she has from home are pretty good. Her blood pressure is a full 40 points better today than it was on the last 2 visits and clonidine has had a very salutary effect. She is tolerating the medicines without difficulty. CURRENT MEDICATIONS Per EMR. ALLERGIES/CONTRAINDICATIONS Per EMR. REVIEW OF SYSTEMS Complete review of systems is negative except for right knee pain. MEDICAL HISTORY Significant for: 1. Polymyalgia rheumatica. Burned out and off prednisone for some time now. 2. Urinary retention with InterStim device placed. 3. Varicose veins with edema. 4. Chronic knee pain and right knee pain in particular from osteoarthritis. 5. Hypertension, chronic renal disease stage 3. 6. Mixed hyperlipidemia. SOCIAL HISTORY She lives alone. She feels she can get lots of help her if she was to have a knee replacement from her children. She does not smoke. Does not drink. OBJECTIVE VITAL SIGNS Temperature is 36.8, heart rate 76, blood pressure 160/64. Weight 70 kg. PHYSICAL EXAMINATION EENT: Conjunctivae and lids normal. PERRLA. EOMs normal. Sclerae nonicteric. Ophthalmologic exam grossly normal. TMs look okay bilaterally. Nares without erythema or congestion. Mouth without erythema or exudate, no leuko or erythroplakia. Hearing grossly normal to scratch test bilaterally. Neck: Supple, no adenopathy or thyromegaly. Carotid [...] No organomegaly. No focal mass or tenderness. Right Knee: Minimal effusion. Is tender to flexion and extension. ASSESSMENT / PLAN #1 She has degenerative joint disease in both her knees but the right knee is quite formidable and she has reached the point she thinks this should be surgically replaced I will refer her to Dr. Mead and we will see what he thinks. She would like to do this a week when I am hospitalist and I have such a week in July and I have such a week in August, so when she decides what month she wants to operate, I can let her know those weeks and she can see if it can be scheduled on one of those weeks. We will have to do a preoperative as well. #2 Hypertension Her blood pressure is coming under control. We have no urgency at the moment. We can let the blood pressure medicines cook for a while, get used to these things before trying a higher dose of clonidine. I would like to see if we can go to 0.3 ultimately, but I do not care to do that yet today. #3 Urinary retention Her urinary stimulatory device is working very well and she no longer catheterizes for residual and she had no problems with the surgery to implant that. Vanessa is scheduled with the orthopedic surgeon. Job ID: [id number]/[id number] documented in this encounter Plan of Treatment Scheduled Referrals Name Type Priority Associated Order Schedule Diagnoses Orthopedic Surgery Outpatient Referral Routine Pain Knee Right 1 Occurrences - Knee (no prior starting replacement) until 1 surgical consult (clinic) documented as of this encounter Visit Diagnoses Diagnosis Pain Knee Right - Primary Hypertension And Chronic Kidney Disease Stage 3 (HCC) Retention Urinary documented in this encounter Care Teams Sagger Soak Relationship Specialty Start Date End Date Eliseo Hoffman M.D. PCP - General 09/08/16 11/16/[address] [place] [phone] documented as of this encounter
--- OUTSIDE RECORDS SUMMARY | 2022-02-28 01:42 | XMS_ITS | Encounter Summary ---
:1940 Author Organization [facility] Address [address] [place] [address] Care Team Providers Name Role Phone Eliseo Hoffman M.D. Primary Care Provider Reason for Visit Reason Comments Communication Encounter Details Date Type Department Care Team Description 07/05/2017 Clinical Communication Department of Eliseo Medrano MedicineNicolasa M.D. [facility], in [address] [address] [place], [place] [phone] (Work) [phone] Social History Tobacco Use Types Packs/Day Years Used Date Smoking Tobacco: Never Smokeless Tobacco: Never Alcohol Use Standard Drinks/Week Comments No 0 (1 standard drink = 0.6 oz pure alcoho l) Sex Assigned at Date Recorded Female 09/25/2017 1:20 PM CDT documented as of this encounter Miscellaneous Notes Telephone Encounter - Teetee Duron L.P.N. - 07/06/2017 4:25 PM CDT Patient called and informed she will receive IV antibiotics at the time of surgery. Nothing needed prior to arrival at the hospital. Telephone Encounter - Elsi Costa - 07/06/2017 2:00 PM CDT Patient called back about the antibiotic, please return call. Telephone Encounter - Terrence Christine M.D. - 07/06/2017 11:43 AM CDT Please call her. It is usually IV antibiotic given at the hospital prior to knee surgery. She needs to check with Orthopedic. Telephone Encounter - Juliette Bear RPietro - 07/05/2017 8:34 AM CDT Contacted patient and she is unsure of what antibiotic she has taken in the past prior to surgery. Aware Dr. Hoffman is out and would like Dr. Christine to advise when he is back in office on . Telephone Encounter - Brissa Ochoa - 07/05/2017 8:10 AM CDT Pt called was suppose to get an antibiotic before her knee surgery on the 12 of July. It is not at the pharmacy. Please call back at [phone] documented in this encounter Plan of Treatment Not on filedocumented as of this encounter Visit Diagnoses Not on filedocumented in this encounter Care Teams Shop Worker Relationship Specialty Start Date End Date Eliseo Hoffman M.D. PCP - General 09/08/16 11/16/[address] [place] [phone] documented as of this encounter
--- OUTSIDE RECORDS SUMMARY | 2022-02-28 01:42 | XMS_ITS | Encounter Summary ---
:1940 Author Organization [facility] Address [address] [place] [address] Care Team Providers Name Role Phone Eliseo Hoffman M.D. Primary Care Provider Reason for Visit Reason Comments Pain Appointment Request (Routine) - Closed Specialty Diagnoses / Procedures Referred By Contact Refer red To Contact Community Internal Medicine Referral ID Status Reason Start Date Expiration Date Visits Requ ested Visits Authorized [id number] Closed 06/20/2017 12/17/2017 1 1 Encounter Details Date Type Department Care Team Description 06/20/2017 Office Visit Department of Ignacio Mead, Primary Oste oarthritis Orthopedic Surgery in [place] Knee Left (Primary Dx) [place], [place] [address], [address] [place] [phone] Social History Tobacco Use Types Packs/Day Years Used Date Smoking Tobacco: Never Smokeless Tobacco: Never Alcohol Use Standard Drinks/Week Comments No 0 (1 standard drink = 0.6 oz pure alcoho l) Sex Assigned at Date Recorded Female 09/25/2017 1:20 PM CDT documented as of this encounter Progress Notes Ignacio Mead M.D. - 06/20/2017 10:15 AM CDT Subjective: This patient is known to have osteoarthritis in both of her knees somewhat more severe on the right and she actually some yesterday to have a total knee scheduled on the right side. However, her left knee yesterday after she left the office became quite a bit more painful. Objective: Limited range of motion and crepitus is noted in the left knee. Assessment: Acute exacerbation of osteoarthritis left knee Plan: Injection was recommended and the procedure carried out for her. documented in this encounter Procedure Notes Ignacio Mead M.D. - 06/20/2017 10:15 AM CDTAssociated Order(s): LARGE JOINT INJECTION Post-Procedure Diagnose(s): Primary Osteoarthritis Knee Left Large joint aspir-inject Date/Time: 06/20/2017 9:55 AM Performed by: Ignacio Mead Authorized by: Ignacio Mead Manager Emergency utilized: interpreter deaf not needed Risks discussed with: patient Procedural [...] prep: patient was prepped and draped in unsual sterile fashion Patient position: seated Procedural approach: [...] Name Priority Date/Time Associated Diagnosis Comme nts [place] ARTHCS ASP/INJ Routine 06/20/2017 10:15 Primary Osteoarthri tis Results for this MJR JT WO US AM CDT Knee Left procedure are i n the results section. documented in this encounter Results [place] ARTHCS ASP/INJ MJR JT WO US (06/20/2017 10:15 AM CDT) Narrative MMODAL - 06/20/2017 10:15 AM CDT Ignacio Mead M.D. ? 06/20/2017 ??9:56 AM Large joint aspir-inject Date/Time: 06/20/2017 9:55 AM Performed by: Ignacio Mead Authorized by: Ignacio Mead Manager Emergency utilized: interpreter deaf not ne eded ?? Risks discussed with: [...] patient was prepped and drape d in unsual sterile fashion ?? Patient position: seated Procedural [...] ice area as n eeded for comfort Ignacio Mead M.D. PROCEDURE/MINOR SURGICAL ORD ERABLES Performing Organization Address City/State/ZIP Code Phon e Number MMODAL MMODAL NA documented in this encounter Visit Diagnoses Diagnosis Primary Osteoarthritis Knee Left - Prima ry documented in this encounter Administered Medications Inactive Administered Medications - up to 3 most recent administrations Medication Order MAR Action Action Date Dose Rate Site betamethasone acetate & sodium Given 06/20/2017 9:55 AM CDT 9 mg phosphate injection 9 mg (for_CELESTONE SOLUSPAN) 9 mg, intra-articular, One-Time Injection, Starting on Mon06/20/17 at 0955, For 1 dose lidocaine 10 mg/mL (1 %) injection 4 mL Given 06/20/2017 9:55 AM CDT 4 mL (for_XYLOCAINE) 4 mL, infiltration, One-Time Injection, Starting on Mon06/20/17 at 0955, For 1 dose documented in this encounter Care Teams Scrape Gatherer Relationship Specialty Start Date End Date Eliseo Hoffman M.D. PCP - General 09/08/16 11/16/[address] [place], [place] [address] [address] documented as of this encounter
--- OUTSIDE RECORDS SUMMARY | 2022-02-28 01:42 | XMS_ITS | Encounter Summary ---
:1940 Author Organization [facility] Address [address] [place] [address] Care Team Providers Name Role Phone Eliseo Hoffman M.D. Primary Care Provider Reason for Visit Reason Onset Date Comments Surgery Date 06/19/2017 Encounter Details Date Type Department Care Team Description 06/19/2017 Clinical Communication Department of [facility] Abel Mead, Surgery Date MedicineShyla M.D. [facility], in [id number] [place] [address] [phone] (Work) [phone] Social History Tobacco Use Types Packs/Day Years Used Date Smoking Tobacco: Never Smokeless Tobacco: Never Alcohol Use Standard Drinks/Week Comments No 0 (1 standard drink = 0.6 oz pure alcoho l) Sex Assigned at Date Recorded Female 09/25/2017 1:20 PM CDT documented as of this encounter Miscellaneous Notes Telephone Encounter - Tracy West R.T.(Nicki) - 06/20/2017 9:50 AM CDT Knee images have been sent to [facility] Telephone Encounter - Echo Kennedy - 06/19/2017 2:55 PM CDT PHYSICIAN: Alyce REASON FOR CALL: Preop 07/04/17 Phyo S: SURG DATE: 07/12/17 Right TKA Alyce B: REQUEST FOR SURG: A: ANESTHESIA: General R: HOSP WILL CALL WITH TIME documented in this encounter Plan of Treatment Not on filedocumented as of this encounter Visit Diagnoses Not on filedocumented in this encounter Care Teams Inspector And Unloader Relationship Specialty Start Date End Date Eliseo Hoffman M.D. PCP - General 09/08/16 11/16/[address] [place] [address] [place] [address] documented as of this encounter
--- OUTSIDE RECORDS SUMMARY | 2022-02-28 01:42 | XMS_ITS | Encounter Summary ---
:1940 Author Organization [facility] Address [address] [place] [address] Care Team Providers Name Role Phone Eliseo Hoffman M.D. Primary Care Provider Reason for Visit Reason Comments Rheumatoid Arthritis Outpatient (Routine) - Closed Specialty Diagnoses / Procedures Referred By Contact Refer red To Contact Rheumatology Diagnoses Polymyalgia Rheumatica (HCC) Sherry Murray M.D. [facility] Procedures Rheumatology - Diagnosis eConsult [address] [place] [address] [phone] Referral ID Status Reason Start Date Expiration Date Visits Requ ested Visits Authorized [id number] Closed 08/17/2017 08/17/2018 1 1 Encounter Details Date Type Department Care Team Description 08/17/2017 Internal E-Consult Division of Ignacio England id Arthritis Rheumatology in [place] With Rheumatoid [place], [place] [address] [facility] Factor Multiple [address] [place] [address] [place] [address] Or Systems [id number] Involvement (HCC) (Primary Dx) Social History Tobacco Use Types Packs/Day Years Used Date Smoking Tobacco: Never Smokeless Tobacco: Never Alcohol Use Standard Drinks/Week Comments No 0 (1 standard drink = 0.6 oz pure alcoho l) Sex Assigned at Date Recorded Female 09/25/2017 1:20 PM CDT documented as of this encounter Consult Notes Ignacio England III, M.D. - 08/17/2017 4:00 PM CDT The patient was not personally interviewed or examined. The history and examination findings are based on the clinical documentation provided and/or discussed with a physician or provider who had personally interviewed and examined the patient. Referring Physician: Sherry Murray M.D. CHIEF COMPLAINT / REASON FOR VISIT Vanessa Andino is a 76 y.o. female with a history of polymyalgia rheumatica on steroids since 2014. HISTORY OF PRESENT ILLNESS During this past year, prednisone has been weaned down to 5 mg daily. Recently she complained of multiple joint pains and morning stiffness. Her prednisone was raised to 20 mg daily. Laboratory blood testing revealed positive results for anti-CCP antibodies, rheumatoid factor, sed rate, C-reactive protein. Apparently, the patient is unable to travel to [place] for consultation. She lives in [place], [place]. ASSESSMENT / PLAN Review the results of laboratory testing on August 14, 2017. Sed rate 62 mm/hour. Anti CCP positive at 36.8 units. Rheumatoid factor 95 IU/mL. EGFR 63. #1 Rheumatoid Arthritis With Rheumatoid Factor Multiple Sites Without Organ Or Systems Involvement (HCC) Based on the available data, it is likely that the best diagnosis is seropositive rheumatoid arthritis as opposed to polymyalgia rheumatica. Ideally this patient should be seen by sole cutter as soon as possible. If this is not feasible for the patient, then I would have the following recommendations. RECOMMENDATIONS 1. Check baseline AST, ALT, alkaline phosphatase, total bilirubin, direct bilirubin, and hepatitis Band C serologies. 2. Recommend updating PCV-13 and PPSV-23 pneumococcal vaccinations if not already done. Consider herpes zoster vaccination. 3. Would recommend initiating methotrexate 7.5 mg by mouth once weekly along with folic acid 1 mg daily. The dose of methotrexate can be titrated by 2.5 mg increments every 2-4 weeks as needed and tolerated. 4. Methotrexate laboratory monitoring protocol: Complete blood count with differential, AST and serum creatinine every month for 3 months, then every 3 months thereafter while taking methotrexate. 5. Happy to discuss with the referring physician. documented in this encounter Plan of Treatment Not on filedocumented as of this encounter Visit Diagnoses Diagnosis Rheumatoid Arthritis With Rheumatoid Fac tor Multiple Sites Without Organ Or Systems Involvement (HCC) - Primary documented in this encounter Care Teams Mining Plant Operator Relationship Specialty Start Date End Date Eliseo Hoffman M.D. PCP - General 09/08/16 11/16/17 [address] [place] [address] documented as of this encounter
--- OUTSIDE RECORDS SUMMARY | 2022-02-28 01:42 | XMS_ITS | Encounter Summary ---
:1939 Author Organization [facility] Address [address] [place] [address] Care Team Providers Name Role Phone Eliseo Hoffman M.D. Primary Care Provider Reason for Referral Outpatient (Routine) - Closed Specialty Diagnoses / Procedures Referred By Contact Refer red To Contact Community Internal Eliseo Hoffman, [facility] Medicine [place] [address] [place] [address] Referral ID Status Reason Start Date Expiration Date Visits Requ ested Visits Authorized [id number] Closed 05/04/2017 10/31/2017 1 1 EXAMINER Reason for Visit Reason Comments med check Encounter Details Date Type Department Care Team Description 05/04/2017 Office Visit Department of Eliseo Hoffman And Chronic Kidney Disease Stage 3 (HCC) (Primary Dx); [facility], [facility] Internal [place] Retention Urinary; Medicine in [address] Polymyalgia Rheumatica (HCC) [place], [place] [address] [facility] [id number] [place] [phone] (Work) [phone] Social History Tobacco Use Types Packs/Day Years Used Date Smoking Tobacco: Never Smokeless Tobacco: Never Alcohol Use Standard Drinks/Week Comments No 0 (1 standard drink = 0.6 oz pure alcoho l) Sex Assigned at Date Recorded Female 09/25/2017 1:20 PM CDT documented as of this encounter Last Filed Vital Signs Vital Sign Reading Time Taken Comments Blood Pressure 184/67 05/04/2017 4:15 PM LENS EXAMINER Pulse 96 05/04/2017 4:06 PM LENS EXAMINER Temperature 36.8 ??C (98.2 ??F) 05/04/2017 4:06 PM LENS EXAMINER Respiratory Rate 16 05/04/2017 4:06 PM LENS EXAMINER Oxygen Saturation 98% 05/04/2017 4:06 PM LENS EXAMINER Inhaled Oxygen Concentration - - Weight 72.2 kg (159 lb 2.8 oz) 05/04/2017 4:06 PM LENS EXAMINER Height - - Body Mass Index 28.56 01/12/2017 2:16 PM CDT documented in this encounter Progress Notes Eliseo Hoffman M.D. - 05/04/2017 12:00 AM CST SUBJECTIVE CHIEF COMPLAINT/REASON FOR VISIT Hypertension, poorly controlled. HISTORY OF PRESENT ILLNESS The patient presents today with her blood pressure high again. We have never really gotten it under control. She is intolerant or dystonic to practically every medicine we use. She cannot take clonidine. She cannot take nifedipine. She cannot take GUILLERMO inhibitor. She cannot take ARBs. It is very difficult. She is stuck at the dose of Cardizem she can take which is 240. When we went to 300 mg she couldnot take that. We were able to start doxazosin at 2 mg a day and she seems able to take that. That can be increased depending on her blood pressure at the next visit, but I am going to do it very slowly because she has all these intolerances. She is on a diuretic, an alpha jason and a calcium channel jason thus far The next problem is her polymyalgia rheumatica. She has no symptoms and we dropped her from 2.5 mg to 1 mg. probably discontinue her in 3 weeks when she comes back because it is probably time to get off that. I think that is completely resolved. She had urinary retention which I cannot understand when she went on nifedipine. She does have a UROstim device and is now urinating fine. CURRENT MEDICATIONS Per EMR. ALLERGIES/CONTRAINDICATIONS Per EMR. REVIEW OF SYSTEMS Complete review of systems is obtained and is negative. MEDICAL HISTORY Significant for: 1. Urinary retention with the UROstim device. 2. Polymyalgia rheumatica. 3. Hypertension and chronic kidney disease. 4. Mixed hyperlipidemia. 5. Type 2 diabetes treated with diet and somewhat exacerbated by prednisone which is another reason to get her off that. 6. Varicose veins in the lower extremity with edema. SOCIAL HISTORY She is . She does not smoke or drink to excess. OBJECTIVE PHYSICAL EXAMINATION Vital Signs: Temperature is 36.8, heart rate 96, blood pressure 180/67. Weight 72.2, respiratory rate 16, O2 saturation 98%. HEENT: Eyes: Conjunctivae and lids normal. Pupils [...] No organomegaly. No focal mass or tenderness. Genitourinary/Rectal: Deferred. Extremities: Warm, dry, noncyanotic. No clubbing or peripheral edema. Neurologic: She is alert, oriented, and grossly nonfocal. ASSESSMENT / PLAN #1 Hypertension, poorly controlled Because she is so intolerant to medicines, continue doxazosin at the dose it is currently at and have the patient come back in 3 weeks. Cautiously increase it if the blood pressure is not controlled. 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 #3 Polymyalgia rheumatica We will reduce from 2.5 mg of prednisone to 1 mg and potentially discontinue it when she returns. She was comfortable with that approach. I scheduled her for 3 weeks. Job ID: [id number] EXAMINER documented in this encounter Plan of Treatment Scheduled Referrals Name Type Priority Associated Diagnoses Order S [facility] Internal Outpatient Referral Routine Ex pected: Medicine office 05/30/2017 visit (clinic) (Approximate) , Expires: 05/04/2020 documented as of this encounter Visit Diagnoses Diagnosis Hypertension And Chronic Kidney Disease Stage 3 (HCC) - Primary Retention Urinary Polymyalgia Rheumatica (HCC) documented in this encounter Care Teams Skiver Blockers Relationship Specialty Start Date End Date Eliseo Hoffman M.D. PCP - General 09/08/16 11/16/[address] [place] [address] documented as of this encounter
--- OUTSIDE RECORDS SUMMARY | 2022-02-28 01:42 | XMS_ITS | Encounter Summary ---
:1940 Author Organization [facility] Address [address] [place] [address] Care Team Providers Name Role Phone Eliseo Hoffman M.D. Primary Care Provider Reason for Visit Reason Comments Post-op 2 WK postop R TKA on 07/12/[address] Mead Post-op Outpatient (Routine) - Closed Specialty Diagnoses / Procedures Referred By Contact Refer red To Contact Orthopedic Surgery Diagnoses Primary Osteoarthritis Knee Right Hetal Mead M.D. [facility] Region [address] [facility] [address], [facility] 1 [place] [address] Referral ID Status Reason Start Date Expiration Date Visits Requ ested Visits Authorized [id number] Closed 06/19/2017 12/16/2017 1 1 Encounter Details Date Type Department Care Team Description 07/25/2017 Office Visit Department of Hetal Mead, Primary Oste oarthritis Orthopedic Surgery in M.DRegina Knee Right [place], [place] [address] [facility] [address], [address] [place] [address] 1 [place] [phone] Social History Tobacco Use Types Packs/Day Years Used Date Smoking Tobacco: Never Smokeless Tobacco: Never Alcohol Use Standard Drinks/Week Comments No 0 (1 standard drink = 0.6 oz pure alcoho l) Sex Assigned at Date Recorded Female 09/25/2017 1:20 PM CDT documented as of this encounter Last Filed Vital Signs Vital Sign Reading Time Taken Comments Blood Pressure 182/70 07/25/2017 1:01 PM CDT Pulse 80 07/25/2017 12:59 PM CDT Temperature - - Respiratory Rate - - Oxygen Saturation - - Inhaled Oxygen Concentration - - Weight - - Height - - Body Mass Index - - documented in this encounter Progress Notes Hetal Mead M.D. - 07/25/2017 1:00 PM CDT Subjective: Patient is 2 weeks status post total knee arthroplasty and doing well. Objective: Her surgical incisions healing fine. Sirena were taken out. Range of motion is 0-99 degrees. Her foot is a bit swollen likely because of a compressive circumferential bandages she has been wearing up to her foot. Assessment: Two weeks postop doing well. Plan: Continue PT continue cane ambulation weaning from the cane as she is able to. Follow-up 1 month for x-rays. documented in this encounter Miscellaneous Notes Addendum Note - Hetal Mead M.D. - 07/25/2017 1:00 PM CDT Addended by: HETAL MEAD on: 07/25/2017 01:37 PM Modules accepted: Orders documented in this encounter Plan of Treatment Not on filedocumented as of this encounter Results DX Knee Right 3 [...] knee. IMPRESSION: Right total knee arthroplast y. Hetal Mead M.D. 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 PCP - General 09/08/16 11/16/[address] [place] [address] documented as of this encounter
--- OUTSIDE RECORDS SUMMARY | 2022-02-28 01:42 | XMS_ITS | Encounter Summary ---
:1939 Author Organization [facility] Address [address] [place] [address] Care Team Providers Name Role Phone Eliseo Hoffman M.D. Primary Care Provider Reason for Visit Reason Comments Communication Encounter Details Date Type Department Care Team Description 04/27/2017 Clinical Communication Department of Eliseo Medrano [place] M, M.D. [facility], in [address] [place] [id number] [place] [address] [phone] (Work) [phone] Social History Tobacco Use Types Packs/Day Years Used Date Smoking Tobacco: Never Smokeless Tobacco: Never Alcohol Use Standard Drinks/Week Comments No 0 (1 standard drink = 0.6 oz pure alcoho l) Sex Assigned at Date Recorded Female 09/25/2017 1:20 PM CDT documented as of this encounter Miscellaneous Notes Telephone Encounter - Carla Rios R.N. - 05/03/2017 10:40 AM CST Patient notified. She will bring her medications with her to her appointment. ANGIOGRAPHY Telephone Encounter - Eliseo Hoffman M.D. - 05/03/2017 10:12 AM RN ANGIOGRAPHY Be seen electively I cannot keep straight what she is taking. And bring her meds with. ANGIOGRAPHY Telephone Encounter - Carla Rios R.N. - 05/03/2017 9:06 AM CST Patient had stopped the Nifedipine. She was still taking all of the other medications. Since talking to her last week she decreased her Diltiazem back to her previous dose of 240 from [id number] it had been increased to. ANGIOGRAPHY Telephone Encounter - Eliseo Hoffman M.D. - 05/02/2017 6:38 PM CST Not really sure what this means. I was told she did not tolerate the pill. So I assume its stopped and sent the other? ANGIOGRAPHY Telephone Encounter - Carla Rios R.N. - 05/02/2017 9:17 AM CST Patient informed of the Cardura. She notes she decreased her Diltiazem back down to 240mg (her previous dose) on also. She said she couldn't take it anymore. She is still taking the Clonidine and Lasix as prescribed. 240 mg of diltiazem and will pickling operator the new Rx for Cardura. Has not taken Nifedipine since Monday. She notes she has an appointment scheduled for later this month. ANGIOGRAPHY Telephone Encounter - Eliseo Hoffman M.D. - 04/29/2017 10:26 AM RN ANGIOGRAPHY done ANGIOGRAPHY Telephone Encounter - Eliseo Hoffman M.D. - 04/27/2017 3:49 PM CST I will ty cardura ANGIOGRAPHY Telephone Encounter - Carla Rios R.N. - 04/27/2017 10:48 AM CST Patient has a few concerns in regards to her medications. She notes that the Nifedipine made her heart beat too fast and she couldn't take it anymore so she stopped taking it on Monday. She also notesthat while taking it her legs and feet swelled up. Since stopping it the swelling has gone down and her heart rate did also. She notes since increasing the Diltiazem she is noticing that she is not able to empty her bladder like she was able to prior. She is concerned about this. She took her BP this AM and it was 162/71 and her HR was 67. No symptoms but this high of a number scared her. She would like to know what you would recommend. She is taking the rest of her medications as you prescribed, only stopped the nifedipine. ANGIOGRAPHY Telephone Encounter - Carla Loomis - 04/27/2017 8:52 AM CST Patient talked with nurse line she is not taking the weight off like she though and not urinating asoften as she thinks she should be. She would like call back [phone] ANGIOGRAPHY documented in this encounter Plan of Treatment Not on filedocumented as of this encounter Visit Diagnoses Not on filedocumented in this encounter Care Teams Sand Slinger Operator Relationship Specialty Start Date End Date Eliseo Hoffman M.D. PCP - General 09/08/16 11/16/[address] [place], [place] [address] [place] [id number] documented as of this encounter
--- OUTSIDE RECORDS SUMMARY | 2022-02-28 01:42 | XMS_ITS | Encounter Summary ---
:1939 Author Organization [facility] Address [address] [place] [address] Care Team Providers Name Role Phone Eliseo Hoffman M.D. Primary Care Provider Reason for Visit Reason Comments Communication Encounter Details Date Type Department Care Team Description 07/04/2017 Clinical Communication Department of Ignacio Mead Co mmunication Orthopedic Surgery in [place], [place] [address], [address] [place] [address] [phone] Social History Tobacco Use Types Packs/Day Years Used Date Smoking Tobacco: Never Smokeless Tobacco: Never Alcohol Use Standard Drinks/Week Comments No 0 (1 standard drink = 0.6 oz pure alcoho l) Sex Assigned at Date Recorded Female 09/25/2017 1:20 PM CDT documented as of this encounter Miscellaneous Notes Telephone Encounter - Sheyla Aguilar L.PReginaNRegina - 07/04/2017 3:02 PM CDT Pt notified in person at [facility] Dr Mead;s recommendations, she would like to treat left knee conservatively for now. Dr Mead recommends Tylenol and ice, and topical analgesics. Telephone Encounter - Jeanne Antonio C.M.A. - 07/04/2017 12:20 PM CDT Left message for patient to call clinic back Telephone Encounter - Ignacio Mead M.D. - 07/04/2017 9:13 AM CDT She's scheduled for a right TKA next week. Is her left knee pain bad enough she wants to get both knees done? I'm not necessarily recommending it, but it's an option. I got the impression her left kneepain only became bad recently, so I'd probably recommend conservative care for now. Telephone Encounter - Sheyla Aguilar L.P.N. - 07/04/2017 8:31 AM CDT Called pt for followup of left knee cortisone injection done on 06/20/[address] Mead, pt states that pain improved after injection until last Monday, then pain came back with walking only, pt rates pain 5/10 today. documented in this encounter Plan of Treatment Not on filedocumented as of this encounter Visit Diagnoses Not on filedocumented in this encounter Care Teams X Ray Operator Relationship Specialty Start Date End Date Eliseo Hoffman M.D. PCP - General 09/08/16 11/16/[address] [place] [id number] documented as of this encounter
--- OUTSIDE RECORDS SUMMARY | 2022-02-28 01:43 | XMS_ITS | Encounter Summary ---
:1940 Author Organization [facility] Address [address] [place] [address] Care Team Providers Name Role Phone Eliseo Hoffman M.D. Primary Care Provider Reason for Referral Outpatient (Routine) - Closed Specialty Diagnoses / Procedures Referred By Contact Refer red To Contact Urology Verónica Escalante APRN, C.N.P. [facility] [address] [place] [address] Referral ID Status Reason Start Date Expiration Date Visits Requ ested Visits Authorized [id number] Closed 04/03/2017 09/30/2017 1 1 FILTER OPERATOR HELPER Reason for Visit Reason Comments Follow-up Interstem Outpatient (Routine) - Closed Specialty Diagnoses / Procedures Referred By Contact Refer red To Contact Diagnoses Retention Urinary Verónica Escalante APRN, C.N.P. [address] [place] [address] Referral ID Status Reason Start Date Expiration Date Visits Requ ested Visits Authorized [id number] Closed 01/06/2017 07/05/2017 1 1 Encounter Details Date Type Department Care Team Description 04/03/2017 Office Visit Department of Urology Verónica Escalante, Encounter For Adjustment And Management Of Unspecified Implanted Device (Primary Dx); in [place], C.N.P. Retention Urinary [place] [address] [phone] Social History Tobacco Use Types Packs/Day Years Used Date Smoking Tobacco: Never Smokeless Tobacco: Never Alcohol Use Standard Drinks/Week Comments No 0 (1 standard drink = 0.6 oz pure alcoho l) Sex Assigned at Date Recorded Female 09/25/2017 1:20 PM CDT documented as of this encounter Last Filed Vital Signs Vital Sign Reading Time Taken Comments Blood Pressure 160/70 04/03/2017 2:45 PM CHAR FILTER OPERATOR HELPER Pulse 88 04/03/2017 2:45 PM CHAR FILTER OPERATOR HELPER Temperature 36.9 ??C (98.4 ??F) 04/03/2017 2:45 PM CHAR FILTER OPERATOR HELPER Respiratory Rate - - Oxygen Saturation - - Inhaled Oxygen Concentration - - Weight - - Height - - Body Mass Index - - documented in this encounter Progress Notes Verónica Escalante, LARS, C.N.P. - 04/03/2017 2:45 PM CST SUBJECTIVE CHIEF COMPLAINT/REASON FOR VISIT Urinary Retention, Interstim management HISTORY OF PRESENT ILLNESS Zoe is a pleasant 76 year old female here today with her fiance for a recheck of her Interstim device. This was implanted on May 11, [address] Groves. She continues to have some urinary retention, but is having very little incontinence. She brings her device remote with her and has some qu estions about using it properly. The following portions of the patient's history were reviewed and updated as appropriate: allergies,current medications, family history, medical history, social history, surgical history and problem list. REVIEW OF SYSTEMS Gastrointestinal: Negative for constipation and diarrhea. Genitourinary: Negative for incontinence, difficulty urinating, pain with urination, hematuria, urgency and frequent urination. Musculoskeletal: Positive for arthralgias and pain or stiffness in the joints. All other systems reviewed and are negative. OBJECTIVE Vitals: 04/03/17 1445 BP: 160/70 Patient Position: Sitting Pulse: 88 Temp: 36.9 ??C TempSrc: Tympanic PHYSICAL EXAM Constitutional: She is oriented to person, place, and time. She appears well- developed and well-nourished. HENT: Head: Normocephalic and atraumatic. Eyes: Pupils are equal, round, and reactive to light. Neck: Normal range of motion. Neck supple. Cardiovascular: Regular rhythm. Abdominal: Abdomen appears normal. Musculoskeletal: Normal range of motion. Neurological: She is alert and oriented to person, place, and time. Skin: Skin is warm and dry. Psychiatric: She has a normal mood and affect. Her behavior is normal. Judgment and thought content normal. Vitals and nursing note reviewed. ASSESSMENT / PLAN #1 Retention Urinary #2 Encounter For Adjustment And Management Of Unspecified Implanted Device After the remote was activated, her Interstim device was actually turned off. The device was turned back on and she was able to feel stimulation in the sacral area. Labels were placed on the remote so that she would be able to easily make changes. She is generally happy with her urinary symptoms. We will see her again in 6 months, and will perform a postvoid residual at that time. If she has any difficulties with her device management or urinary issues, she will contact us. Otherwise, we will see her again in 6 months. All of their questions have been answered, they are in agreement with this plan. Signed by: Verónica Escalante APRN, C.N.P. 04/03/2017 6:48 PM FILTER OPERATOR HELPER documented in this encounter Plan of Treatment Scheduled Referrals Name Type Priority Associated Diagnoses Order S [facility] Urology office Outpatient Referral Routine Expect ed: visit (clinic) 10/01/2017 (Approximate), Expires: 04/03/2019 documented as of this encounter Visit Diagnoses Diagnosis Encounter For Adjustment And Management Of Unspecified Implanted Device - Primary Retention Urinary documented in this encounter Care Teams Director Economic Relationship Specialty Start Date End Date Eliseo Hoffman M.D. PCP - General 09/08/16 11/16/[address] [place] [phone] documented as of this encounter
--- OUTSIDE RECORDS SUMMARY | 2022-02-28 01:43 | XMS_ITS | Encounter Summary ---
:1940 Author Organization [facility] Address [address] [place] [address] Care Team Providers Name Role Phone Neda Hoffman M.D. Primary Care Provider Encounter Details Date Type Department Care Team Description 01/16/2017 Hospital Encounter HX [facility] Javier Knowles, HOT STONE SETTER, C.N.P. [address] [phone] (Wo rk) Social History Tobacco Use Types Packs/Day Years Used Date Smoking Tobacco: Never Sex Assigned at Date Recorded Female 09/25/2017 1:20 PM CDT documented as of this encounter Last Filed Vital Signs Vital Sign Reading Time Taken Comments Blood Pressure 186/72 01/16/2017 1:24 PM CDT Pulse 70 01/16/2017 1:18 PM CDT Temperature - - Respiratory Rate - - Oxygen Saturation - - Inhaled Oxygen Concentration - - Weight - - Height - - Body Mass Index - - documented in this encounter Medications at Time of Discharge Medication Sig Dispensed Refills Start Date End Date CALCIUM CARB/VIT Take 1 tablet by mouth 0 010 D3/MINERALS daily. (CALCIUM-VITAMIN D ORAL) MULTIVITAMIN ORAL Take 1 tablet by mouth 0 2009 daily. ASPIRIN ORAL Take 1 tablet by mouth 0 08/02/2016 03/29/2018 daily. cloNIDine Take 0.5 tablets by 0 05/24/201604/19 (for_CATAPRES) 0.3 mg mouth at bedtime. tablet desonide (for_DESOWEN) Apply 1 application 0 06/0 05/201205/04/2017 0.05 % cream topically 2 (two) times a day. dilTIAZem LA Take 1 tablet by mouth 0 01/12/2017 04/19/2017 (for_CARDIZEM LA) 240 daily. mg 24 hr tablet furosemide (for_LASIX) Take 0.5 tablets by 0 06/2504/19/2017 40 mg tablet mouth daily. labetalol Take 1 tablet by mouth 0 11/29/2016 (for_NORMODYNE) 200 mg 2 (two) times a day. tablet losartan (for_COZAAR) Take 1 tablet by mouth 0 02/09/2017 100 mg tablet daily. predniSONE Take 1.5 tablets by 0 05/11/201604/19 (for_DELTASONE) 5 mg mouth daily. tablet documented as of this encounter Progress Notes Chadwick Knowles, LARS, R.N. - 01/16/2017 1:48 PM CDT URO-LE CHIEF COMPLAINT/REASON FOR VISIT Check of Interstim HISTORY OF PRESENT ILLNESS Zoe is a pleasant 76 year old female here today for a recheck of her Interstim Device. 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 She is not currently able to feel the stimulator and is having trouble with her remote. MEDICATIONS aspirin 81 mg oral tablet, 81 mg, 1 tab(s), PO, Daily Calcium 600+D, PO, Daily cloNIDine 0.3 mg oral tablet, 1/2 tab(s), PO, Bedtime, 3 refills dilTIAZem 240 mg/24 hours oral tablet, extended release, 240 mg, 1 tab(s), PO, Daily, 1 refills furosemide 40 mg oral tablet, 40 mg, 1 tab(s), PO, Daily, 3 refills multivitamin, PO, Daily predniSONE 5 mg oral tablet, 5 mg, 1 tab(s), PO, Daily, 1 refills ALLERGIES oxyCODONE sulfa drugs PAST MEDICAL HISTORY Chronic Diabetes Mellitus Type 2 DJD (OA) NOS Fatigue* HTN [Hypertension] Hyperlipidemia Mixed Polymyalgia Rheumatica (PMR) Varicose veins of leg with edema Historical No historical problems PROCEDURES/SURGICAL HISTORY Implantable incontinence control 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 SOCIAL HISTORY Date Time: 01/16/2017 13:18 Tobacco: Smoking Status: Never smoker Exposure: Care provider denies smoking in home, Other: Never Alcohol: Use: No Results Found Recreational Drugs: Use: None Type: No Results Found FAMILY HISTORY Mother:Positive: Rheumatoid arthritis Father:Positive: Cataract Brother:Positive: Diabetes mellitus; Hypertension SYSTEMS REVIEW Negative except as stated above. VITAL SIGNS T: 36.9 ??C (Core) HR: 70 BP: 186 / 72 PHYSICAL EXAMINATION General: Well developed, well nourished, well groomed female in no acute distress. Neurological: Alert, cooperative, oriented x3. Appropriate mood and affect. Head: Normal appearance, no abnormalities, normocephalic. Neck: Symmetrical and supple, trachea is midline. Cardiac: regular rate, regular rhythm Respiratory: Respirations are unlabored with normal respiratory rate and normal respiratory movements. Abdomen: Soft, non-tender, non-distended Extremities: Warm, without edema or ulcerations. IMPRESSION/REPORT/PLAN Other MechComplic Implant Electr Neurostim Generator Init Ordered: OV Est Pt Level 3 - 56487 - 15 min Retention Urinary NOS Ordered: OV Est Pt Level 3 - 78148 - 15 min Orders: Return Visit Urology PLAN: When her remote was synced with the Interstim device, the device was actually turned off. We turnedthe device on, it is on Program 2 at 1.8 milliamps. She is able to feel this in her sacrum. I would like to see her again in about 2 months to see how her symptoms are. If she has any questions or issues, she will contact us. All of her questions are answered today, she is in agreement with this plan. Electronically Signed By: CHADWICK KNOWLES APRN, RN On: 01/16/2017 02:19 PM Source: [facility] POWERCHART Document Id: [id number] documented in this encounter Miscellaneous Notes Miscellaneous - Chadwick Knowles APRN, R.N. - 01/16/2017 1:38 PM CDT Ambulatory Patient Summary [address] [id number] Visit Information Name: VANESSA ANDINO [facility] Number: [id number] Current Date: 01/16/2017 13:38:40 Physicians Attending Provider: CHADWICK KNOWLES APRN tractor operator Provider: NEDA HOFFMAN MD VANESSA ANDINO has been given the following list of follow-up instructions, medication list, and patient education materials: Follow-up Instructions Your Medications Here is a list of your medications. It is important to take your medications as directed. Use a pillbox or chart to help remind you to take your medications. Please let your doctor or nurse know if you have problems taking your medications. Medication/Strength How to Take Indications/Special Instructions/Comments/Notes for Patient Medication Changes/Routing aspirin (aspirin 81 mg oral tablet) 1 Tablet(s), Oral, once a day calcium-vitamin D (Calcium 600+D) Oral, once a day cloNIDine (cloNIDine 0.3 mg oral tablet) 1/2 tab(s), Oral, once a day (at bedtime) dilTIAZem (dilTIAZem 240 mg/24 hours oral tablet, extended release) 1 Tablet(s), Oral, once a day furosemide (furosemide 40 mg oral tablet) 1 Tablet(s), Oral, once a day multivitamin (multivitamin) Oral, once a day predniSONE (predniSONE 5 mg oral tablet) 1 Tablet(s), Oral, once a day Stop Taking the Following Medications: Medication list as of 01-16-17 13:38 Attention: If you have any medications at home that are not on this list, DO NOT take them until youcontact your provider for clarification. Give a copy of your medication list to your primary care provider. Update your medication list any time medications or doses are changed and carry your medication list at all times in case of emergency. Electronically Signed By: CHADWICK KNOWLES APRN, RN Signed On:16-JAN-2017 13:38:07 Your Allergies & Intolerances Substance Reaction Symptoms Category Comments sulfa drugs Drug oxyCODONE Drug Your Problem List Problem Status Onset Comments Fatigue* Active 01/11/2010 HTN [Hypertension] Active 01/11/2010 Varicose veins of leg with edema Active 07/19/2010 DJD (OA) NOS Active Polymyalgia Rheumatica (PMR) Active Diabetes Mellitus Type 2 Active Retention Urinary NOS Active Hyperlipidemia Mixed Active Your Upcoming Appointments Date Time Location Provider 01/18/2017 10:45 [facility] Audiology Dawn Skinner 02/06/2017 10:45 [facility] 02/06[facility]2017 11[facility] Nurse Attention: Contact your local Clinic if further appointment detail needed. Consider Using Patient Online Services Patient Online Services is a secure online and Mobile application that lets you: ?? View lab and test results ?? View portions of your medical record including clinical notes, immunizations and discharge summaries ?? Request an appointment or medication refill ?? Review your appointment schedule ?? Send secure messages to your care team Its easy to create an account if you dont have one. Go to [email or web address] and click on Create Your Account. Then, follow the directions to complete the online form. Youll be asked for your [facility] number which you can find at the top of this document. Your Goals/Additional instructions: Source: [facility] POWERCHART Document Id: [id number] Miscellaneous - Chadwick Knowles APRN, R.N. - 01/16/2017 1:38 PM CDT Ambulatory Discharge Medication List [address] [id number] Visit Information Name: HARRISON ANDINOHRRAE ANDREW [facility] Number: [id number] Current Date: 01/16/2017 13:38:39 Attending Provider: CHADWICK KNOWLES APRN, tractor operator Provider: NEDA HOFFMAN MD VANESSA ANDINO KAMRAN has been given the following list of medications: Your Medications It is important to take your medications as directed. Use a pill box or chart to help remind you to take your medications. Please let your doctor or nurse know if you have problems taking your medications. Medication/Strength How to Take Indications/Special Instructions/Comments/Notes for Patient Medication Changes/Routing aspirin (aspirin 81 mg oral tablet) 1 Tablet(s), Oral, once a day calcium-vitamin D (Calcium 600+D) Oral, once a day cloNIDine (cloNIDine 0.3 mg oral tablet) 1/2 tab(s), Oral, once a day (at bedtime) dilTIAZem (dilTIAZem 240 mg/24 hours oral tablet, extended release) 1 Tablet(s), Oral, once a day furosemide (furosemide 40 mg oral tablet) 1 Tablet(s), Oral, once a day multivitamin (multivitamin) Oral, once a day predniSONE (predniSONE 5 mg oral tablet) 1 Tablet(s), Oral, once a day Stop Taking the Following Medications: Medication list as of 01-16-17 13:38 Attention: If you have any medications at home that are not on this list, DO NOT take them until youcontact your provider for clarification. Give a copy of your medication list to your primary care provider. Update your medication list any time medications or doses are changed and carry your medication list at all times in case of emergency. Electronically Signed By: CHADWICK KNOWLES APRN, RN Signed On:16-JAN-2017 13:38:07 Additional Information: Source: [employer] Document Id: [id number] Miscellaneous - Zenaida Kellogg, L.P.N. - 01/16/2017 1:24 PM CDT Ambulatory Vitals Height Weight Ambulatory Vitals Height Weight Entered On: 01/16/2017 13:24 CDT Performed On: 01/16/2017 13:24 CDT by ZENAIDA KELLOGG LPN Vitals/Ht/Wt Systolic Blood Pressure : 186 mmHg (>HHI) Diastolic Blood Pressure : 72 mmHg NIBP Mean : 110 mmHg BP Location : Right upper extremity Blood Pressure Cuff Size : Regular ZENAIDA EKLLOGG LPN - 01/16/2017 13:24 CDT [facility] Document Id: [id number] CDT!7 Miscellaneous - Zenaida Kellogg L.P.N. - 01/16/2017 1:18 PM CDT Adult Card Hanger Intake/History Adult Card Hanger Intake/History Entered On: 01/16/2017 13:21 CDT Performed On: 01/16/2017 13:18 CDT by ZENAIDA KELLOGG [facility] Intake Chief Complaint : recheck interstim-patient is needing help controlling the remote Temperature Core : 36.9 DegC(Converted to: 98.4 DegF) Peripheral Pulse Rate : 70 /min Systolic Blood Pressure : 193 mmHg (>HHI) Diastolic Blood Pressure : 56 mmHg NIBP Mean : 102 mmHg BP Location : Left upper extremity Blood Pressure Cuff Size : Regular BESSZENAIDA Ivan [facility] - 01/16/2017 13:18 CDT General Info Languages : Upper Sorbian Is Patient Female and 13-50 no hysterectomy : No ZENAIDA KELLOGG [facility] - 01/16/2017 13:18 CDT Subjective Pain Symptoms : No BESS, ZENAIDA Ivan CARRILLO - 01/16/2017 13:18 CDT Dependent Habits Exposure to Tobacco Smoke : Care provider denies smoking in home, Other: Never Smoking Status : Never smoker Tobacco 2A : No Tobacco Use/Currently Using : No Tobacco Use/Last 30 Days : No Tobacco Use/Last 12 months : No BESS ZENAIDA Ivan CARRILLO - 01/16/2017 13:18 CDT Caffeine Use Grid Caffeine Use : Current Type : Coffee Frequency : Daily ZENAIDA KELLOGG LPN - 01/16/2017 13:18 CDT Recreational Drug Use Grid Drug Use : None BESS ZENAIDA Ivan CARRILLO - 01/16/2017 13:18 CDT [facility] Document Id: [id number] CDT!30 documented in this encounter Plan of Treatment Not on filedocumented as of this encounter Visit Diagnoses Not on filedocumented in this encounter Additional Health Concerns Assessment Noted Time PHQ-9 Depression Total Score: 1 02/03/2016 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 PCP - General 09/08/16 11/16/17 [address] [facility] [place] [id number] documented as of this encounter
--- OUTSIDE RECORDS SUMMARY | 2022-02-28 01:43 | XMS_ITS | Encounter Summary ---
:1940 Author Organization [facility] Address [address] [place] [address] Care Team Providers Name Role Phone Eliseo Hoffman M.D. Primary Care Provider Reason for Visit Reason Comments Knee Pain Injection Outpatient (Routine) - Closed Specialty Diagnoses / Procedures Referred By Contact Refer red To Contact Community Internal Eliseo Hoffman Medicine M.D. [address] [place] [id number] Referral ID Status Reason Start Date Expiration Date Visits Requ ested Visits Authorized [id number] Closed 01/12/2017 07/11/2017 1 1 Encounter Details Date Type Department Care Team Description 02/09/2017 Office Visit Department of Eliseo Hoffman Knee R ight (Primary Dx); [facility] Graham Varela M.D. Hypertension And Chronic Kidney Disease Stage 3 (HCC) Medicine in [address] [facility] [id number] [place] [address] [phone] (Work) [phone] Social History Tobacco Use Types Packs/Day Years Used Date Smoking Tobacco: Never Smokeless Tobacco: Never Sex Assigned at Date Recorded Female 09/25/2017 1:20 PM CDT documented as of this encounter Last Filed Vital Signs Vital Sign Reading Time Taken Comments Blood Pressure 178/74 02/09/2017 1:29 PM PROJECT LEADER Pulse 78 02/09/2017 1:21 PM PROJECT LEADER Temperature 36.8 ??C (98.2 ??F) 02/09/2017 1:21 PM PROJECT LEADER Respiratory Rate 16 02/09/2017 1:21 PM PROJECT LEADER Oxygen Saturation - - Inhaled Oxygen Concentration - - Weight 71.7 kg (158 lb 2.9 oz) 02/09/2017 1:21 PM PROJECT LEADER Height - - Body Mass Index 28.38 01/12/2017 2:16 PM CDT documented in this encounter Progress Notes Eliseo Hoffman M.D. - 02/09/2017 12:00 AM CST SUBJECTIVE CHIEF COMPLAINT/REASON FOR VISIT Synvisc injection to the right knee. The patient has failed corticosteroid injections so she is a candidate for synthetic viscosity. She presents today to have that knee injected. She has very high blood pressure and it is not well controlled. She is unable to take losartan because she had some kind of back pain with it and she is unableto take labetalol because it made her nauseated. She is only able to take half of her clonidine dosebecause otherwise she hallucinates so it is a difficult problem. She does have Cardizem CD at 240 mga day, furosemide at 40 mg a day and clonidine at bedtime at 0.15 mg. It is very unusual to have side effects to GUILLERMO and ARB inhibitors and I am going to try her on lisinopril, maybe she will not get aside-effect and because we are doing 3 Synvisc injections at 1 week intervals, I will have plenty oftime, 2 visits, to recheck her, so I will give her 20 mg of lisinopril and we will see her in a week. I will send only 14 pills to the pharmacy because she often reacts to medicines. CURRENT MEDICATIONS Per EMR. ALLERGIES/CONTRAINDICATIONS Per EMR. 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 SOCIAL HISTORY She is . She does not smoke or drink. OBJECTIVE PHYSICAL EXAMINATION VITAL SIGNS: Temperature was 36.8, heart rate 78, blood pressure 178/74, weight 71.7 and respiratoryrate 16. EENT: Conjunctivae and lids normal. PERRLA. EOMs normal. Sclerae nonicteric. Ophthalmologic exam grossly normal. TMs look okay bilaterally. Nares without erythema or congestion. Mouth without erythema or exudate, no leuko or erythroplakia. Hearing grossly normal to scratch test bilaterally. NECK: Supple, no adenopathy or thyromegaly. Carotid upstrokes brisk, no bruits. CHEST: Lung mitchell clear to auscultation and percussion with normal respiratory rate and effort. CARDIAC: Central venous pressure is normal at 7 to 8 cm of water or less; there is a normal systoliccollapse of the jugular venous pulse; there is not a positive hepatojugular reflex. Heart tones are in sinus rhythm; S1 and S2 normal, physiologic splitting of the second heart tone, no third or fourthsound, no significant murmur, no gallop. MUSCULOSKELETAL: Her right knee is not red, warm or inflamed. It is tender to movement. ASSESSMENT / PLAN #1 RIGHT KNEE PAIN FROM DEGENERATIVE JOINT DISEASE OF THE RIGHT KNEE, FAILED CORTICOSTEROID INJECTIONS We will do Synvisc shot 1 today. Following universal protocol, we injected 2 mL of Synvisc into the medial aspect of the right knee. There was no complication. Band-Aid applied. She should not feel anyimprovement with that but maybe after the 2nd shot she will feel better. She is scheduled to come back in a week. #2 HYPERTENSION, POORLY CONTROLLED, THIS IS WITH RENAL DISEASE STAGE 3 The patient will try lisinopril 20 mg a day. Sent 14 pills and we will check her in a week when she returns. The dose could be increased if she tolerates it. If she does not tolerate it, we will have to find a different pill. Job ID: [id number] ECT LEADER documented in this encounter Procedure Notes Eliseo Hoffman M.D. - 02/09/2017 1:30 PM CSTAssociated Order(s): LARGE JOINT INJECTION Post-Procedure Diagnose(s): Pain Knee Right Large Joint Injection Date/Time: 02/09/2017 1:42 PM Performed by: Eliseo Hoffman Authorized by: Eliseo Hoffman Resource Engineer utilized: cv/cvn cv tsc system operator not needed Risks discussed with: patient Procedural risks discussed, including (but not limited to) the following: allergic reaction, infection and reaction to medication Consent obtained: verbal, given by: patient The benefits, risks and alternatives to the [...] a procedural pause: yes Procedure purpose: therapeutic Indications: knee pain Skin preparation: povidone-iodine Anesthesia method: none Procedure location: knee - Knee site: R knee joint Patient position: supine Procedure performed: injection only Needle gauge: 22 G, length: 1 1/2 in The following medications were administered at the target site(s): Viscosupplement: 16 mg hylan g-f 20 16 mg/2 mL Post-procedure instructions: avoid strenuous activity for 2 days Discharge instructions: follow-up with ordering provider ECT LEADER documented in this encounter Plan of Treatment Not on filedocumented as of this encounter Procedures Procedure Name Priority Date/Time Associated Diagnosis Comme nts [facility]CS ASP/INJ Routine 02/09/2017 1:30 PM Pain Knee Right R esults for this MJR JT WO US PROJECT LEADER procedure are i n the results section. documented in this encounter Results [facility] ARTHCS ASP/INJ MJR JT WO US (02/09/2017 1:30 PM PROJECT LEADER) Narrative MMODAL - 02/09/2017 1:30 PM PROJECT LEADER Eliseo Hoffman M.D. ? 02/09/2017 ??1:46 PM Large Joint Injection Date/Time: 02/09/2017 1:42 PM Performed by: Eliseo Hoffman Authorized by: Eliseo Hoffman Resource Engineer utilized: cv/cvn cv tsc system operator not ne eded ?? Risks discussed with: patient Procedural risks discussed, including (b ut not limited to) the following: allergic reaction, infection and reactio n to medication Consent obtained: verbal, given by: az ent The benefits, risks and alternatives to the [...] procedural pause: yes ?? Procedure purpose: therapeutic Indications: knee pain Skin preparation: povidone-iodine Anesthesia method: none Procedure location: knee - Knee site: R knee joint Patient position: supine Procedure performed: injection only Needle gauge: 22 G, length: 1 1/2 in The following medications were administe red at the target site(s): ??Viscosupplement: 16 mg hylan g-f 20 1 6 mg/2 mL ??Post-procedure instructions: avoid st renuous activity for 2 days ??Discharge instructions: follow-up wit h ordering provider Eliseo Hoffman M.D. PROCEDURE/MINOR SURGICAL ORD ERABLES Performing Organization Address City/State/ZIP Code Phon e Number MMODAL MMODAL NA documented in this encounter Visit Diagnoses Diagnosis Pain Knee Right - Primary Hypertension And Chronic Kidney Disease Stage 3 (HCC) documented in this encounter Administered Medications Inactive Administered Medications - up to 3 most recent administrations Medication Order MAR Action Action Date Dose Rate Site hylan g-f 20 injection 16 mg Given 02/09/2017 1:42 PM PROJECT LEADER 16 mg (for_SYNVISC) 16 mg, intra-articular, One-Time, Starting on Ria 02/09/17 at 1342, For 1 dose documented in this encounter Additional Health Concerns Assessment Noted Time PHQ-9 Depression Total Score: 1 02/03/2016 8:15 AM PROJECT LEADER documented as of this encounter Care Teams Refrigerated National Truck Driver Relationship Specialty Start Date End Date Eliseo Hoffman M.D. PCP - General 09/08/16 11/16/17 [address] [place] [address] documented as of this encounter
--- OUTSIDE RECORDS SUMMARY | 2022-02-28 01:43 | XMS_ITS | Encounter Summary ---
:1940 Author Organization [facility] Address [address] [place] [address] Care Team Providers Name Role Phone Eliseo Hoffman M.D. 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 PCP - General 09/08/16 11/16/[address] [place] [id number] documented as of this encounter
--- OUTSIDE RECORDS SUMMARY | 2022-02-28 01:43 | XMS_ITS | Encounter Summary ---
:[address] [facility] Address [address] [place] [address] Care Team Providers Name Role Phone Neda Hoffman M.D. Primary Care Provider Encounter Details Date Type Department Care Team Description 01/12/2017 Hospital Encounter HX [facility] INTERNMED Regulo Hoffman M.D. [address] [place] [address] [phone] (Wo rk) Social History Tobacco Use Types Packs/Day Years Used Date Smoking Tobacco: Never Sex Assigned at Date Recorded Female 09/25/2017 1:20 PM CDT documented as of this encounter Last Filed Vital Signs Vital Sign Reading Time Taken Comments Blood Pressure 152/78 01/12/2017 2:16 PM CDT Pulse 60 01/12/2017 2:07 PM CDT Temperature - - Respiratory Rate 16 01/12/2017 2:07 PM CDT Oxygen Saturation - - Inhaled Oxygen Concentration - - Weight 72.5 kg (159 lb 13.3 oz) 01/12/2017 2:07 PM CDT Height 159 cm (5' 2.6) 01/12/2017 2:16 PM CDT Body Mass Index 28.68 01/12/2017 2:07 PM CDT documented in this encounter Medications at Time [...] documented as of this encounter Progress Notes Neda Hoffman M.D. - 01/12/2017 1:56 PM CDT [id number] CHIEF COMPLAINT/REASON FOR VISIT Blood pressure not well controlled and side effects. The patient is being made sick by labetalol. She feels nausea and taking it even with milk and food does not make a difference. She is nauseated for several hours after taking the pill and wants to stop it. It is not really controlling her blood pressure anyway. We have tried all manner of pills and she seems to have side effects to all of them. In any event, she is able to take her 0.15 of clonidineat bedtime. She is able to take the furosemide. Will try diltiazem and see if that will work. It is not a very powerful blood pressure pill but on the other hand, it is largely devoid of any side effects so we will give it a try. I will check her in about 6 weeks on the blood pressure front. Her right knee is problematic for her and I have given her a cortisone injection there and within a month it had failed so she is a candidate for Synvisc. Synthetic viscosity gone through with the patient and she would like to make a try of that so I will schedule her in 3 weeks for her first Synvisc shot and then we will check the blood pressure weekly for 3 weeks while she comes in for those shots and that will give us a good way to check her blood pressure. She is going down to Urology to have a check of her urinary retention. She has an InterStim device and that is the one successful front that has worked very well for her. Finally she wishes to fill outan advanced directive and a POLST form was given to her. I signed it and will put it in the chart. MEDICATIONS Per EMR. ALLERGIES Per EMR. SYSTEMS REVIEW Complete review of systems is performed and is negative except as mentioned above. PAST MEDICAL/SURGICAL HISTORY 1. Chronic urinary retention with InterStim device. 2. Varicose veins of the lower extremity. 3. PMR. 4. Hypertension. 5. Mixed dyslipidemia. 6. DJD. 7. Type 2 diabetes. SOCIAL HISTORY She is . She does not smoke or drink. PHYSICAL EXAMINATION VITAL SIGNS: Temperature is 36.1, heart rate 60, respiratory rate 16, blood pressure 150/78, BMI 28.68. Actual weight 72.5. HEENT: Eyes: Conjunctivae and lids normal. Pupils equal, round, reactive to light and accommodation.Extraocular movements normal. Sclerae nonicteric. Ophthalmologic exam grossly normal. ENT: Tympanic membranes look okay bilaterally. Nares without erythema or congestion. Mouth without erythema or exudate, no leuko or erythroplakia. NECK: Supple, no adenopathy or thyromegaly. Carotid upstrokes plus 2 bilaterally, no bruits. CHEST: Lung mitchell clear to [...] or fourthsound, no significant murmur, no gallop. ABDOMEN: Soft, nondistended. No organomegaly. No focal mass or tenderness. EXTREMITIES: Warm, dry, noncyanotic. No clubbing or peripheral edema. NEUROLOGIC: Hard of hearing but otherwise alert, oriented and grossly nonfocal. IMPRESSION/REPORT/PLAN 1. Hypertension poor control and side effect. Stop labetalol. Put her on Cardizem long-acting 240 mgonce a day. Recheck her when she has her Synvisc shots. 2. 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 3. Hearing loss bilaterally. We will schedule with audiology as she would wish to consider hearing aids. 4. Pain in her right knee. Will schedule her for Synvisc shots. 5. Urinary retention. Continue to follow very closely with Nicolasa regarding her InterStim device. Neda Hoffman M.D./kimmie Electronically Signed By: NEDA HOFFMAN MD On: 01/12/2017 04:38 PM Source: [facility] MHSDOLBEYNONRADSYS Document Id: [id number] documented in this encounter Miscellaneous Notes Miscellaneous - Kary Pitts CReginaMReginaARegina - 01/16/2017 11:43 AM CDT Advance Directive Advance Directive Entered On: 01/16/2017 11:44 CDT Performed On: 01/16/2017 11:43 CDT by KARY PITTS CMA Advance Directive Advanced Directives : Yes Advance Directive Date : 01/16/2017 Advance Directive Type : Other: Health Care Directive , Provider Orders for Life- Sustaining Treatment Advance Directive Location : Scanned into EMR Advance Directive Comments : [place] [address] Phone# [phone] KARY Morel [facility] - 01/16/2017 11:43 CDT Source: [facility] POWERCHART Document Id: [id number] CDT!7 Miscellaneous - Kary Pitts C.MReginaARegina - 01/16/2017 11:41 AM CDT Advance Directive Advance Directive Entered On: 01/16/2017 11:43 CDT Performed On: 01/16/2017 11:41 CDT by KARY PITTS [facility] Advance Directive Advanced Directives : Yes Advance Directive Date : 01/16/2017 Advance Directive Type : Other: Health Care Directive Advance Directive Location : Scanned into EMR Advance Directive Comments : 1) Kary Elio 2) Cirilo Chambers KARY PITTS [facility] - 01/16/2017 11:41 CDT [facility] Document Id: [id number] CDT!7 Miscellaneous - Neda Hoffman M.D. - 01/12/2017 2:56 PM CDT Ambulatory Patient Summary [address] [id number] Visit Information Name: KELLEEVANESSA DE LEON KAMRAN [facility] Number: [id number] Current Date: 01/12/2017 14:56:55 Physicians Attending Provider: NEDA HOFFMAN MD Primary Care Provider: NEDA HOFFMAN MD BHARATH VANESSARAE ANDREW has been given the following list of [...] release) 1 Tablet(s), Oral, once a day New Routed to [address] [place] [address] furosemide (furosemide 40 mg oral tablet) 1 Tablet(s), Oral, once a day multivitamin (multivitamin) Oral, once a day predniSONE (predniSONE 5 mg oral tablet) 1 Tablet(s), Oral, once a day Stop Taking the Following Medications: Medication list as of 01-12-17 14:56 Attention: If you have any medications at home that are not on this list, DO NOT take them until youcontact your provider for clarification. Give a copy of your medication list to your primary care provider. Update your medication list any time medications or doses are changed and carry your medication list at all times in case of emergency. Electronically Signed By: NEDA HOFFMAN MD Signed On:12-JAN-2017 14:55:01 Your Allergies & Intolerances Substance Reaction Symptoms Category Comments sulfa drugs Drug oxyCODONE Drug Your Problem List Problem Status Onset Comments Combined hyperlipidemia Active 01/11/2010 Fatigue* Active 01/11/2010 HTN [Hypertension] Active 01/11/2010 Varicose veins of leg with edema Active 07/19/2010 DJD (OA) NOS Active Polymyalgia Rheumatica (PMR) Active Diabetes Mellitus Type 2 Active Retention Urinary NOS Active Hyperlipidemia Mixed Active Your Upcoming Appointments Date Time Location Provider 02/06/2017 10:45 [facility]06[facility]2017 11[facility] SENIOR PRODUCT MARKETING MANAGER Nurse Attention: Contact your local Clinic if [...] if you dont have one. Go to [email or web address] and click on Create Your Account. Then, follow the directions to complete the online form. Youll be asked for your [facility] number which you can find at the top of this document. Your Goals/Additional instructions: Source: [facility] POWERCHART Document Id: [id number] Miscellaneous - Neda Hoffman M.D. - 01/12/2017 2:56 PM CDT Ambulatory Discharge Medication List [address] [id number] Visit Information Name: VANESSA ANDINO [facility] Number: [id number] Current Date: 01/12/2017 14:56:54 Attending Provider: NEDA HOFFMAN MD Primary Care Provider: NEDA HOFFMAN MD VANESSA ANDINO has [...] release) 1 Tablet(s), Oral, once a day New Routed to [address] [address] furosemide (furosemide 40 mg oral tablet) 1 Tablet(s), Oral, once a day multivitamin (multivitamin) Oral, once a day predniSONE (predniSONE 5 mg oral tablet) 1 Tablet(s), Oral, once a day Stop Taking the Following Medications: Medication list as of 01-12-17 14:56 Attention: If you have any medications at home that are not on this list, DO NOT take them until youcontact your provider for clarification. Give a copy of your medication list to your primary care provider. Update your medication list any time medications or doses are changed and carry your medication list at all times in case of emergency. Electronically Signed By: NEDA HOFFMAN MD Signed On:12-JAN-2017 14:55:01 Additional Information: Source: [facility] Bubbl Document Id: [id number] Miscellaneous - Monica Caldera L.P.NRegina - 01/12/2017 2:16 PM CDT Ambulatory Vitals Height Weight Ambulatory Vitals Height Weight Entered On: 01/12/2017 14:16 CDT Performed On: 01/12/2017 14:16 CDT by MONICA CALDERA LPN Vitals/Ht/Wt Systolic Blood Pressure : 152 mmHg (HI) Diastolic Blood Pressure : 78 mmHg NIBP Mean : 103 mmHg BP Location : Left upper extremity Blood Pressure Cuff Size : Regular Height : 159 cm(Converted to: 5 ft 3 inch(es), 63 inch(es)) MONICA CALDERA LPN - 01/12/2017 14:16 CDT Source: [facility] Bubbl Document Id: [id number] CDT!8 Miscellaneous - Monica Caldera L.P.NRegina - 01/12/2017 2:07 PM CDT Adult Facility Operations Manager Intake/History Adult Facility Operations Manager Intake/History Entered On: 01/12/2017 14:14 CDT Performed On: 01/12/2017 14:07 CDT by MONICA CALDERA LPN Intake Chief Complaint : 1. Reaction from labetalol, nausea and lightheaded 2. Low back pain 3. Right knee pain Temperature Core : 36.1 DegC(Converted to: 97.0 DegF) (LOW) Peripheral Pulse Rate : 60 /min Respiratory Rate : 16 /min Systolic Blood Pressure : 150 mmHg (HI) Diastolic Blood Pressure : 72 mmHg NIBP Mean : 98 mmHg BP Location : Left upper extremity Blood Pressure Cuff Size : Regular Height : 159 cm(Converted to: 5 ft 3 inch(es), 63 inch(es)) Actual Weight : 72.50 kg(Converted to: 159 lb 13 oz) Dosing Weight Clinic : 72.5 kg Clinic BSA : 1.79 Body Mass Index : 28.68 kg/m2 MONICA CALDERA [facility] - 01/12/2017 14:07 CDT General Info Information Given By : Patient Preferred Communication Mode : Verbal, Written Languages : Danish Is Patient Female and 13-50 no hysterectomy : No MONICA CALDERA LPN - 01/12/2017 14:07 CDT Subjective Pain Symptoms : Yes MONICA CALDERA [facility] - 01/12/2017 14:07 CDT Pain Scale Pain Scale Verbal 0-10 : Open MONICA CALDERA [facility] - 01/12/2017 14:07 CDT Pain Pain Assessment Grid Pain 1 Pain 2 Location : Lower back Knee Laterality : Right MONICA CALDERA [facility] - 01/12/2017 14:07 CDT MONICA CALDERA [facility] - 01/12/2017 14:07 CDT Dependent Habits Exposure to Tobacco Smoke : Care provider denies smoking in home, Other: Never Smoking Status : Never smoker Tobacco 2A : No Tobacco Use/Currently Using : No Tobacco Use/Last 30 Days : No Tobacco Use/Last 12 months : No MONICA CALDERA [facility] - 01/12/2017 14:07 CDT Caffeine Use Grid Caffeine Use : Current Type : Coffee Frequency : Daily MONICA CALDERA SENIOR PRODUCT MARKETING MANAGER - 01/12/2017 14:07 CDT Recreational Drug Use Grid Drug Use : None MONICA CALDERA [facility] - 01/12/2017 14:07 CDT Source: [facility] Bubbl Document Id: [id number] CDT!47 documented in this encounter Plan of Treatment Not on filedocumented as of this encounter Visit Diagnoses Not on filedocumented in this encounter Additional Health Concerns Assessment Noted Time PHQ-9 Depression Total Score: 1 02/03/2016 8:15 AM 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 PCP - General 09/08/16 11/16/[address] [place] [address] [place] [address] documented as of this encounter
--- OUTSIDE RECORDS SUMMARY | 2022-02-28 01:43 | XMS_ITS | Encounter Summary ---
:1940 Author Organization [facility] Address [address] [place] [address] Care Team Providers Name Role Phone Eliseo Hoffman M.D. Primary Care Provider Encounter Details Date Type Department Care Team Description 12/15/2016 Hospital Encounter HX [facility] INTERNMED Franchesca Christine M.D. [address] [facility], [facility] [address] [address] 761 Social History Tobacco Use Types Packs/Day Years Used Date Smoking Tobacco: Never Sex Assigned at Date Recorded Female 09/25/2017 1:20 PM CDT documented as of this encounter Last Filed Vital Signs Vital Sign Reading Time Taken Comments Blood Pressure 179/59 12/15/2016 1:44 PM CDT Pulse 71 12/15/2016 1:41 PM CDT Temperature - - Respiratory Rate 20 12/15/2016 1:41 PM CDT Oxygen Saturation - - Inhaled Oxygen Concentration - - Weight 72.9 kg (160 lb 11.5 oz) 12/15/2016 1:41 PM CDT Height - - Body Mass Index 28.84 11/29/2016 11:14 AM CDT documented in this encounter Medications at [...] tablet desonide (for_DESOWEN) Apply 1 application 0 05/201205/04/2017 0.05 % cream topically 2 (two) times a day. furosemide (for_LASIX) Take 0.5 tablets by 0 06/2504/19/2017 40 mg tablet mouth daily. labetalol Take 1 tablet by mouth 0 11/29/2016 (for_NORMODYNE) 200 mg 2 (two) times a day. tablet losartan (for_COZAAR) Take 1 tablet by mouth 0 02/09/2017 100 mg tablet daily. predniSONE Take 1.5 tablets by 0 05/11/201604/19 (for_DELTASONE) 5 mg mouth daily. tablet documented as of this encounter Miscellaneous Notes Miscellaneous - Francehsca Christine M.D. - 12/19/2016 10:40 AM CDT Results Notification Document Contains Addenda Addendum by EDGAR KERN LPN on December 19, 2016 11:18:27 CDT Spoke with: ( x_ ) Patient ( _ ) Parent ( _ ) Spouse ( _ ) Child ( ) Other: _ Call back telephone number: _ Reason for Call: -Results_ Chief Complaint: patient was reached and notified of results _ Patient/Caller response to Education/Information given: ( _x ) Verbalizes understanding of instructions ( _ ) Provide intervention per provider instruction ( x_ ) Reinforce information already given ( _ ) Reinforce Plan of Care ( _ ) Provide preprinted information by mail (if applicable) Source/Reference used (if applicable): Dr. Christine_ OK to leave message on voice mail? _ OK to send message via patient portal? _ Patient told to expect return call: ( _ ) today ( _ ) tomorrow ( _ ) next work day Callers preferred language for Healthcare discussion: English_ Was an client advocate used for this call? no_ Other ( --_ ) From: FRANCHESCA CHRISTINE MD To: ANDRIA Christine Nurse; Sent: 12/19/2016 10:40:28 CDT ! Show up: 12/19/2016 10:41:00 CDT Subject: Results Notification Actions: Notify patient of results Please call. Urine culture showed mixed miriam, most likely contamination. 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 PCP - General 09/08/16 11/16/[address] [place] [address] documented as of this encounter
--- OUTSIDE RECORDS SUMMARY | 2022-02-28 01:43 | XMS_ITS | Encounter Summary ---
:1939 Author Organization [facility] Address [address] [place] [address] Care Team Providers Name Role Phone Eliseo Hoffman M.D. Primary Care Provider Reason for Visit Reason Comments Communication Encounter Details Date Type Department Care Team Description 04/19/2017 Clinical Communication Department of Eliseo Medrano MedicineNicolasa M.D. [facility], in [address] [id number] [place] [address] [phone] (Work) [phone] Social History Tobacco Use Types Packs/Day Years Used Date Smoking Tobacco: Never Smokeless Tobacco: Never Alcohol Use Standard Drinks/Week Comments No 0 (1 standard drink = 0.6 oz pure alcoho l) Sex Assigned at Date Recorded Female 09/25/2017 1:20 PM CDT documented as of this encounter Miscellaneous Notes Telephone Encounter - Juliette Bear RReginaN. - 04/20/2017 9:30 AM CST Pharmacy notified. ORT ELECTRICIAN Telephone Encounter - Eliseo Hoffman M.D. - 04/20/2017 7:28 AM CST Will not call him back. I know what I am doing. Fill the script. ORT ELECTRICIAN Telephone Encounter - Juliette Bear RReginaNRegina - 04/19/2017 4:48 PM CST Pharmacist wanted to verify that provider wants patient to be on 2 calcium channel blockers together, pharmacist notes that patient is not on a beta jason. Please call pharmacist back to verify. ORT ELECTRICIAN Telephone Encounter - Brissa Ochoa - 04/19/2017 3:47 PM CST Beulah from pharm called regarding RX diltiazem and nifedipine. These are both from the same family. Please call back ORT ELECTRICIAN documented in this encounter Plan of Treatment Not on filedocumented as of this encounter Visit Diagnoses Not on filedocumented in this encounter Care Teams Blind Eyeletter Relationship Specialty Start Date End Date Eliseo Hoffman M.D. PCP - General 09/08/16 11/16/[address] [place] [address] documented as of this encounter
--- OUTSIDE RECORDS SUMMARY | 2022-02-28 01:43 | XMS_ITS | Encounter Summary ---
:[address] [facility] Address [address] [place] [address] Care Team Providers Name Role Phone Eliseo Hoffman M.D. Primary Care Provider Encounter Details Date Type Department Care Team Description 02/06/2017 Hospital Encounter Department of Eliseo Hoffman Laboratory Medicine Estella Varela Rheumatica (HCC) in [address] [phone] (Work) [phone] Social History Tobacco Use Types Packs/Day Years [...] tablet desonide (for_DESOWEN) Apply 1 application 0 /0 05/201205/04/2017 0.05 % cream topically 2 (two) [...] documented as of this encounter Progress Notes Donna Castillo L.P.N. - 02/06/2017 11:59 PM CST Patient was advised CLERK documented in this encounter Plan of Treatment Not on filedocumented as of this encounter Procedures Procedure Name Priority Date/Time Associated Comments Diagnosis SEDIMENTATION RATE, B Routine 02/06/2017 10:57 Polymyalgia Re sults for this AM UNIT CLERK Rheumatica (HCC) procedure a re in the results section. documented in this encounter Results (ABNORMAL) Sedimentation Rate (02/06/2017 10:57 AM UNIT CLERK) [facility] gist Method Time Signature Sedimentation 36 (H) 0 - 29 02/06/2017 [facility] Rate, B mm/1 h 12:04 PM UNIT CLERK [facility] Specimen Anatomical Collection Method Collection Time Receive d Time (Source) Location / / Volume Laterality Blood 02/06/2017 10:57 02/06/2017 AM UNIT CLERK 11:11 AM UNIT CLERK Eliseo Hoffman M.D. LAB BLOOD ADD-ON Performing Organization Address City/State/ZIP Code Phon e Number [facility]- [address] [place] [address] [facility] [address] [place] [address] [place] [address] [place] [address] [facility] documented in this encounter Visit Diagnoses Diagnosis Polymyalgia Rheumatica (HCC) documented in this encounter Additional Health Concerns Assessment Noted Time PHQ-9 Depression Total Score: 1 02/03/2016 8:15 AM UNIT CLERK documented as of this encounter Care Teams Mutual Fund Accountant Relationship Specialty Start Date End Date Eliseo Hoffman M.D. PCP - General 09/08/16 11/16/[address] [place] [address] [place], [place] [address] documented as of this encounter
--- OUTSIDE RECORDS SUMMARY | 2022-02-28 01:43 | XMS_ITS | Encounter Summary ---
:1939 Author Organization [facility] Address [address] [place] [address] Care Team Providers Name Role Phone Eliseo Hoffman M.D. Primary Care Provider Reason for Visit Reason Comments Synvisc injection Outpatient (Routine) - Closed Specialty Diagnoses / Procedures Referred By Contact Refer red To Contact Community Internal Eliseo Hoffman Medicine M.D. [address] [place] [phone] Referral ID Status Reason Start Date Expiration Date Visits Requ ested Visits Authorized [id number] Closed 01/12/2017 07/11/2017 1 1 Encounter Details Date Type Department Care Team Description 02/15/2017 Office Visit Department of Eliseo Hoffman Pain Knee R ight (Primary Dx); [facility] Graham Varela M.D. Hypertension And Chronic Kidney Disease Stage 3 (HCC) Medicine in [address] [phone] [phone] (Work) [phone] Social History Tobacco Use Types Packs/Day Years Used Date Smoking Tobacco: Never Smokeless Tobacco: Never Sex Assigned at Date Recorded Female 09/25/2017 1:20 PM CDT documented as of this encounter Last Filed Vital Signs Vital Sign Reading Time Taken Comments Blood Pressure 150/66 02/15/2017 1:54 PM GAME TECHNICIAN Pulse 72 02/15/2017 1:49 PM GAME TECHNICIAN Temperature 36.8 ??C (98.2 ??F) 02/15/2017 1:49 PM GAME TECHNICIAN Respiratory Rate 16 02/15/2017 1:49 PM GAME TECHNICIAN Oxygen Saturation - - Inhaled Oxygen Concentration - - Weight 71.3 kg (157 lb 3 oz) 02/15/2017 1:49 PM GAME TECHNICIAN Height - - Body Mass Index 28.2 01/12/2017 2:16 PM CDT documented in this encounter Progress Notes Eliseo Hoffman M.D. - 02/15/2017 12:00 AM CST SUBJECTIVE She is coming for Synvisc #2. It is the right knee. The patient is also saying that the furosemide she has got is making her urinate all day and gives her a back ache. I told her to try a half pill. Her blood pressure remains elevated. If 20 mg is stillgiving her these kind of troubles, I am going to change her to spironolactone and see if we cannot get her blood pressure finally controlled. She has got to be able to take some kind of pill. Her knee is starting to feel better after 1 shot which is a good sign. CURRENT MEDICATIONS Per EMR. ALLERGIES/CONTRAINDICATIONS Per EMR. MEDICAL HISTORY 1. Hypertension. 2. Chronic kidney disease stage 3, 3. Polymyalgia rheumatica. 4. Type 2 diabetes. 5. Mixed dyslipidemia. 6. DJD of the right knee. SOCIAL HISTORY She is . She does not smoke or drink. OBJECTIVE PHYSICAL EXAMINATION Vital Signs: Her temperature is 36.8, heart rate 72, blood pressure 150/66, weight 71.3 and respiratory rate 16. Knee: Her knee reveals no warmth or redness. We followed the universal protocol and injected. Please see procedure note. ASSESSMENT / PLAN I have instructed her to take 1/2 of her furosemide pill and will see what her blood pressure is in a week when she comes back and whether her side effects have mitigated by a lower dose. Job ID: [id number] TECHNICIAN documented in this encounter Procedure Notes Eliseo Hoffman M.D. - 02/15/2017 2:00 PM CSTAssociated Order(s): LARGE JOINT INJECTION Post-Procedure Diagnose(s): Pain Knee Right Large Joint Injection Date/Time: 02/15/2017 2:06 PM Performed by: Eliseo Hoffman Authorized by: Eliseo Hoffman Waffle Machine Operator utilized: weed controller not needed Risks discussed with: patient Procedural risks discussed, including (but not limited to) the following: allergic reaction, hematoma and infection Consent obtained: verbal The benefits, risks and alternatives to the [...] a procedural pause: yes Procedure purpose: therapeutic Skin preparation: povidone-iodine Anesthesia method: none Procedure location: knee - Knee site: R knee joint Patient position: supine Procedural approach: medial Needle gauge: 22 G, length: 1 1/2 in The following medications were administered at the target site(s): Viscosupplement: 16 mg hylan g-f 20 16 mg/2 mL Procedure completed successfully: yes Complications: no apparent complications Post-procedure instructions: avoid strenuous activity for 2 days TECHNICIAN documented in this encounter Plan of Treatment Not on filedocumented as of this encounter Procedures Procedure Name Priority Date/Time Associated Diagnosis Comme nts CA ARTHCS ASP/INJ Routine 02/15/2017 2:00 PM Pain Knee Right R esults for this MJR JT WO US GAME TECHNICIAN procedure are i n the results section. documented in this encounter Results CA ARTHCS ASP/INJ MJR JT WO US (02/15/2017 2:00 PM GAME TECHNICIAN) Narrative MMODAL - 02/15/2017 2:00 PM GAME TECHNICIAN Eliseo Hoffman M.D. ? 02/20/2017 ??7:21 AM Large Joint Injection Date/Time: 02/15/2017 2:06 PM Performed by: Eliseo Hoffman Authorized by: Eliseo Hoffman Waffle Machine Operator utilized: weed controller not ne eded ?? Risks discussed with: patient Procedural risks discussed, including (b ut not limited to) the following: allergic reaction, hematoma and infectio n Consent obtained: verbal The benefits, risks and alternatives to the [...] procedural pause: yes ?? Procedure purpose: therapeutic Skin preparation: povidone-iodine Anesthesia method: none Procedure location: knee - Knee site: R knee joint Patient position: supine Procedural approach: medial Needle gauge: 22 G, length: 1 1/2 in The following medications were administe red at the target site(s): ??Viscosupplement: 16 mg hylan g-f 20 1 6 mg/2 mL Procedure completed successfully: yes Complications: no apparent [...] hylan g-f 20 injection 16 mg Given 02/15/2017 2:06 PM GAME TECHNICIAN 16 mg (for_SYNVISC) 16 mg, intra-articular, One-Time, Starting on Mon02/15/17 at 1406, For 1 dose documented in this encounter Care Teams Director Of Strategic Initiatives Relationship Specialty Start Date End Date Eliseo Hoffman M.D. PCP - General 09/08/16 11/16/[address] [place] [address] [place] [address] (work) documented as of this encounter
--- OUTSIDE RECORDS SUMMARY | 2022-02-28 01:43 | XMS_ITS | Encounter Summary ---
:1939 Author Organization [facility] Address [address] [place] [address] Care Team Providers Name Role Phone Eliseo Hoffman M.D. Primary Care Provider Encounter Details Date Type Department Care Team Description 01/18/2017 Hospital Encounter HX [facility] AUDIOLOGY Dawn Heredia Au.D., M.A. Social History Tobacco Use Types Packs/Day Years [...] tablet desonide (for_DESOWEN) Apply 1 application 0 /05/201205/04/2017 0.05 % cream topically 2 (two) times [...] daily. tablet documented as of this encounter Procedure Notes Dawn Heredia Au.D. - 01/18/2017 11:24 AM CDT Audiologic Evaluation CHIEF COMPLAINT/REASON FOR VISIT The patient was referred by Dr. Eliseo Hoffman for an audiologic evaluation. HISTORY The patient reported that she has noted gradually increasing difficulty with her hearing. 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 The patient denied experiencing any dizziness, tinnitus, or aural discomfort. PHYSICIAL EXAMINATION (EARS) Otoscopy revealed excessive, but non-occlusive cerumen on the left side such that the tympanic membrane could not be visualized. The right ear canal was clear. ASSESSMENT/ PLAN Today's audiogram indicated a moderate sensorineural hearing loss, bilaterally. Word recognition abilities were good. Immittance testing indicated normal middle ear pressure and slight hypercompliance at the tympanic membranes on both sides. CARE PLAN: The patient would likely benefit from amplification. Her insurance may include a hearing aid benefit and I advised her to check into that before she schedules a hearing aid consultation. A copy of today's audiogram was given to the patient. It is advised that her hearing be monitored every few years or sooner if symptoms increase. Results and recommendations were discussed with the patient and her spouse. Electronically Signed By: DAWN HEREDIA, C.C.C.-A On: 01/18/2017 11:28 AM Source: [facility] POWERCHART Document Id: [id number] documented in this encounter Plan of Treatment Not on filedocumented as of this encounter Visit Diagnoses Not on filedocumented in this encounter Additional Health Concerns Assessment Noted Time PHQ-9 Depression Total Score: 1 02/03/2016 8:15 AM SANDER PORTABLE MACHINE documented as of this encounter Care Teams Kerfer Machine Operator Relationship Specialty Start Date End Date Eliseo Hoffman M.D. PCP - General 09/08/16 11/16/17 [address] [place], [place] [address] documented as of this encounter
--- OUTSIDE RECORDS SUMMARY | 2022-02-28 01:43 | XMS_ITS | Encounter Summary ---
:1939 Author Organization [facility] Address [address] [place] [address] Care Team Providers Name Role Phone Eliseo Hoffman M.D. Primary Care Provider Encounter Details Date Type Department Care Team Description 02/25/2017 Orders Only Department of [facility] Eliseo Hoffman , Internal Medicine in [place], [place] 100 [facility] 300 [place] [address] [place] [address] [phone] Social History Tobacco Use Types Packs/Day Years Used Date Smoking Tobacco: Never Smokeless Tobacco: Never Sex Assigned at Date Recorded Female 09/25/2017 1:20 PM CDT documented as of this encounter Plan of Treatment Not on filedocumented as of this encounter Visit Diagnoses Not on filedocumented in this encounter Care Teams Digital Operations Analyst Relationship Specialty Start Date End Date Eliseo Hoffman M.D. PCP - General 09/08/16 11/16/17 100 [place] [address] documented as of this encounter
--- OUTSIDE RECORDS SUMMARY | 2022-02-28 01:43 | XMS_ITS | Encounter Summary ---
:1939 Author Organization [facility] Address [address] [place] [address] Care Team Providers Name Role Phone Eliseo Hoffman M.D. Primary Care Provider Encounter Details Date Type Department Care Team Description 02/09/2017 Orders Only Department of [facility] Eliseo Hoffman , Internal Medicine in [place], [place] 100 [facility] 300 [place] [address] [place] [address] [phone] Social History Tobacco Use Types Packs/Day Years Used Date Smoking Tobacco: Never Smokeless Tobacco: Never Sex Assigned at Date Recorded Female 09/25/2017 1:20 PM CDT documented as of this encounter Plan of Treatment Not on filedocumented as of this encounter Visit Diagnoses Not on filedocumented in this encounter Additional Health Concerns Assessment Noted Time PHQ-9 Depression Total Score: 1 02/03/2016 8:15 AM TARE WORKER documented as of this encounter Care Teams School Photographer Relationship Specialty Start Date End Date Eliseo Hoffman M.D. PCP - General 09/08/16 11/16/17 [address] [place] [address] documented as of this encounter
--- OUTSIDE RECORDS SUMMARY | 2022-02-28 01:43 | XMS_ITS | Encounter Summary ---
:1939 Author Organization [facility] Address [address] [place] [address] Care Team Providers Name Role Phone Eliseo Hoffman M.D. Primary Care Provider Reason for Referral Outpatient (Routine) - Closed Specialty Diagnoses / Procedures Referred By Contact Refer red To Contact Community Internal Eliseo Hoffman Medicine M.D. [address] [place] [address] Referral ID Status Reason Start Date Expiration Date Visits Requ ested Visits Authorized [id number] Closed 01/12/2017 07/11/2017 1 1 Outpatient (Routine) - Closed Specialty Diagnoses / Procedures Referred By Contact Refer red To Contact Diagnoses Retention Urinary Verónica Escalante APRN, C.N.P. [address] [place] [phone] Referral ID Status Reason Start Date Expiration Date Visits Requ ested Visits Authorized [id number] Closed 01/06/2017 07/05/2017 1 1 Encounter Details Date Type Department Care Team Description 01/06/2017 Orders Only Department of Eliseo Hoffman Polymyalgia Rheumatica (HCC); Community Internal Estella Varela Retention Urinary Medicine in [address] [phone] (Work) [phone] Social History Tobacco Use Types Packs/Day Years Used Date Smoking Tobacco: Never Sex Assigned at Date Recorded Female 09/25/2017 1:20 PM CDT documented as of this encounter Plan of Treatment Scheduled Referrals Name Type Priority Associated Diagnoses Order S chedule Urology office Outpatient Referral Routine Retention Urinary E xpected: visit (clinic) 07/25/2017 (Approximate), Expires: 07/29/2022 [facility] Internal Outpatient Referral Routine Ex pected: Medicine office 02/02/2017 visit (clinic) (Approximate) , Expires: 02/06/2022 documented as of this encounter Results (ABNORMAL) Sedimentation Rate (02/06/2017 10:57 AM CHANGE ATTENDANT) [facility] gist Method Time Signature Sedimentation 36 (H) 0 - 29 02/06/2017 [facility] Rate, B mm/1 h 12:04 PM CHANGE ATTENDANT [facility] [employer] [facility] Specimen Anatomical Collection Method Collection Time Receive d Time (Source) Location / / Volume Laterality Blood 02/06/2017 10:57 02/06/2017 AM CHANGE ATTENDANT 11:11 AM CHANGE ATTENDANT Eliseo Hoffman M.D. LAB BLOOD ADD-ON Performing Organization Address City/State/ZIP Code Phon e Number [facility] [address] [place] [address] [employer] [facility] [facility]- [address] [place] [address] [facility] documented in this encounter Visit Diagnoses Diagnosis Polymyalgia Rheumatica (HCC) Retention Urinary documented in this encounter Additional Health Concerns Assessment Noted Time PHQ-9 Depression Total Score: 1 02/03/2016 8:15 AM CHANGE ATTENDANT documented as of this encounter Care Teams Industrial Machine System Technician Relationship Specialty Start Date End Date Eliseo Hoffman M.D. PCP - General 09/08/16 11/16/17 [address] [place] [address] documented as of this encounter
--- OUTSIDE RECORDS SUMMARY | 2022-02-28 01:43 | XMS_ITS | Encounter Summary ---
:1939 Author Organization [facility] Address [address] [place] [address] Care Team Providers Name Role Phone Eliseo Hoffman M.D. Primary Care Provider Reason for Visit Reason Comments Communication Rx Clarification Encounter Details Date Type Department Care Team Description 02/23/2017 Clinical Communication Department of Yonny Hoffman (Rx Community Internal Eliseo Varela M.D. Clarification) Medicine in [address] [place] [address] [address] [facility] [phone] [place], [place] (Work) [phone] Social History Tobacco Use Types Packs/Day Years Used Date Smoking Tobacco: Never Smokeless Tobacco: Never Sex Assigned at Date Recorded Female 09/25/2017 1:20 PM CDT documented as of this encounter Miscellaneous Notes Telephone Encounter - Eliseo Hoffman M.D. - 02/25/2017 2:48 PM CST done SITTER Telephone Encounter - Carla Rios R.N. - 02/24/2017 10:40 AM CST Please clarify which medications the patient should be taking. Lisinopril is no longer on her active med list. SITTER Telephone Encounter - Nakia Shabazz - 02/23/2017 3:07 PM CST Jaelyn state an RX came through today for the pt to get Losartan 50 mg, pt was switched to Lisinopril on 02/09/17 20 mg. And she was told today that was being cut in half today to 10 mg. They need the rx for the lisinopril 10 mg. SITTER documented in this encounter Plan of Treatment Not on filedocumented as of this encounter Visit Diagnoses Not on filedocumented in this encounter Care Teams Document Control Assistant Relationship Specialty Start Date End Date Eliseo Hoffman M.D. PCP - General 09/08/16 11/16/[address] [place] [address] documented as of this encounter
--- OUTSIDE RECORDS SUMMARY | 2022-02-28 01:43 | XMS_ITS | Encounter Summary ---
:1940 Author Organization [facility] Address [address] [place] [address] Care Team Providers Name Role Phone Eliseo Hoffman M.D. Primary Care Provider Encounter Details Date Type Department Care Team Description 12/26/2016 Hospital Encounter HX NO MAPPING Sherif Hoffman M.D. [address] [place] [address] [phone] (Wo rk) Social History Tobacco [...] of this encounter Miscellaneous Notes Miscellaneous - Conversion, Historical Provider Ser - 12/26/2016 11:59 PM CDT Coding Summary-Paper Based CODING DATE: 01/05/2017 FINAL [facility] STATUS: * Discharged to Home or Self Care PAYOR: Medicare Advantage ADMIT DX: REASON FOR VISIT DX: FINAL DX: PRINCIPAL: I10 Essential (primary) hypertension SECONDARY: PROCEDURES DOCTOR NAME DATE NOTE: The code number assigned matches the documented diagnosis and / or procedure in the patient's chart. However, the narrative phrase printed from the coding software may appear abbreviated, or result in slightly different terminology. Coded By: MENDEZ PRIETO Date Saved: 01/05/2017 10:36 am Source: Quo[employer]ad[employer] Document Id: [id number] documented in this encounter Plan of Treatment Not on filedocumented as of this encounter Visit Diagnoses Not on filedocumented in this encounter Additional Health Concerns Assessment Noted Time PHQ-9 Depression Total Score: 1 02/03/2016 8:15 AM HAND LASTER documented as of this encounter Care Teams Rod Greaser Relationship Specialty Start Date End Date Eliseo Hoffman M.D. PCP - General 09/08/16 11/16/[address] [place] [phone] documented as of this encounter
--- OUTSIDE RECORDS SUMMARY | 2022-02-28 01:43 | XMS_ITS | Encounter Summary ---
:1940 Author Organization [facility] Address [address] [place] [address] Care Team Providers Name Role Phone Eliseo Hoffman M.D. Primary Care Provider Encounter Details Date Type Department Care Team Description 02/07/2017 Orders Only Department of Eliseo Hoffman Polymyalgia Rheumatica [facility] Estella Varela (HCC) (Primary Dx) Medicine in [address] [facility] [address] [place], [place] [phone] (Work) [phone] Social History Tobacco Use Types Packs/Day Years Used Date Smoking Tobacco: Never Sex Assigned at Date Recorded Female 09/25/2017 1:20 PM CDT documented as of this encounter Plan of Treatment Not on filedocumented as of this encounter Visit Diagnoses Diagnosis Polymyalgia Rheumatica (HCC) - Primary documented in this encounter Additional Health Concerns Assessment Noted Time PHQ-9 Depression Total Score: 1 02/03/2016 8:15 AM FIRE PREVENTION FORESTER documented as of this encounter Care Teams Electronic Assembler Relationship Specialty Start Date End Date Eliseo Hoffman M.D. PCP - General 09/08/16 11/16/17 [address] [place] [address] documented as of this encounter
--- OUTSIDE RECORDS SUMMARY | 2022-02-28 01:43 | XMS_ITS | Encounter Summary ---
:1940 Author Organization [facility] Address [address] [place] [address] Care Team Providers Name Role Phone Eliseo Hoffman M.D. Primary Care Provider Reason for Referral Outpatient (Routine) - Closed Specialty Diagnoses / Procedures Referred By Contact Refer red To Contact Community Internal Eliseo Hoffman [facility] Medicine [place] [address] [place] [address] Referral ID Status Reason Start Date Expiration Date Visits Requ ested Visits Authorized [id number] Closed 04/04/2017 10/01/2017 1 1 ILL EQUIPMENT OPERATOR Reason for Visit Reason Comments Follow-up 02/23/17 Arm Pain upper arm pain Outpatient (Routine) - Closed Specialty Diagnoses / Procedures Referred By Contact Refer red To Contact [facility] Internal Eliseo Hoffman [facility] Azeem Soria [address] [place] [address] Referral ID Status Reason Start Date Expiration Date Visits Requ ested Visits Authorized [id number] Closed 02/23/2017 08/22/2017 1 1 Encounter Details Date Type Department Care Team Description 04/04/2017 Office Visit Department of Eliseo Hoffman Epicondylit is Medial Right (Primary Dx); [facility] Graham Varela M.D. Retention Urinary; Medicine in [address] [place] [address] Hypertension And Chronic Kidney Disease Stage 3 (HCC) [place], [place] [address] [facility] [employer] [address] [place], [place] [phone] (Work) [phone] Social History Tobacco Use Types Packs/Day Years Used Date Smoking Tobacco: Never Smokeless Tobacco: Never Alcohol Use Standard Drinks/Week Comments No 0 (1 standard drink = 0.6 oz pure alcoho l) Sex Assigned at Date Recorded Female 09/25/2017 1:20 PM CDT documented as of this encounter Last Filed Vital Signs Vital Sign Reading Time Taken Comments Blood Pressure 154/72 04/04/2017 10:42 AM SAWMILL EQUIPMENT OPERATOR Pulse - - Temperature 36.9 ??C (98.4 ??F) 04/04/2017 10:35 AM SAWMILL EQUIPMENT OPERATOR Respiratory Rate 16 04/04/2017 10:35 AM SAWMILL EQUIPMENT OPERATOR Oxygen Saturation 96% 04/04/2017 10:35 AM SAWMILL EQUIPMENT OPERATOR Inhaled Oxygen Concentration - - Weight 69.6 kg (153 lb 7 oz) 04/04/2017 10:35 AM SAWMILL EQUIPMENT OPERATOR Height - - Body Mass Index 27.53 01/12/2017 2:16 PM CDT documented in this encounter Progress Notes Eliseo Hoffman M.D. - 04/04/2017 12:00 AM CST SUBJECTIVE CHIEF COMPLAINT/REASON FOR VISIT Intense pain in the right elbow region. Also hypertension. HISTORY OF PRESENT ILLNESS Her blood pressure is higher but she says she stopped one of her pills and I do not know exactly which pill she stopped. The med rec is completely confusing. She has had multiple interventions and whenshe returns in 2 weeks she is going to have to bring her pills so we can get clarity on this. The blood pressure is not urgent today but it is poorly controlled. She did not really do anything with her arm or hurt it in any way. There has been no trauma. CURRENT MEDICATIONS Per EMR. ALLERGIES/CONTRAINDICATIONS Per EMR. REVIEW OF SYSTEMS Otherwise negative. MEDICAL HISTORY Significant for: 1. 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 2. 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 3. Polymyalgia rheumatica. 4. Chronic knee pain, osteoarthritis. 5. Hypertension, chronic kidney disease stage 3. 6. Mixed hyperlipidemia. 7. Diabetes mellitus type 2. SOCIAL HISTORY She is . She does not smoke. Has rare social alcohol. OBJECTIVE VITAL SIGNS Temperature 36.9, blood pressure 154/72. Weight 69.6. Respiratory rate 16, O2 saturation 97. PHYSICAL EXAMINATION Examination of her arm reveals a medial epicondylitis. There is no lateral epicondylitis. There is no pain over the elbow joint. There is no warmth or redness. ASSESSMENT / PLAN #1 We will perform injection of that and for details please see the procedure note which is also in place #2 Hypertension with stage 3 kidney disease The patient should return in 2 weeks with her pills so we can sort out her medication record and make decisions on her hypertension. She was comfortable with that. Job ID: [id number] ILL EQUIPMENT OPERATOR documented in this encounter Procedure Notes Eliseo Hoffman M.D. - 04/04/2017 11:15 AM CSTAssociated Order(s): JOINT ASPIRATION/INJECTION; LARGE JOINT INJECTION Post-Procedure Diagnose(s): Epicondylitis Medial Right Arthrocentesis Date/Time: 04/04/2017 11:06 AM Performed by: Eliseo Hoffman Authorized by: Eliseo Hoffman Pre-procedure details: Location: Elbow Elbow: Right elbow Procedure details: Ultrasound guidance: no Approach: Medial Steroid injected: yes Large Joint Injection Date/Time: 04/04/2017 11:07 AM Performed by: Eliseo Hoffman Authorized by: Eliseo Hoffman Piece Dyeing Machine Tender utilized: newspaper peddler not needed Risks discussed with: patient Procedural risks discussed, including (but not limited to) the following: infection, allergic reaction and bleeding Consent obtained: verbal, given by: patient The [...] for the procedure: yes Skin preparation: chlorhexidine Anesthesia method: pre-procedure local infiltration Procedure location: knee and elbow - Elbow site: R medial epicondyle Patient position: seated Procedural approach: medial Procedure performed: injection only Needle gauge: 22 G, length: 1 1/2 in The following medications were administered at the target site(s): Local anesthetic: 3 mL lidocaine 10 mg/mL (1 %); 2 mL lidocaine 10 mg/mL (1 %) Corticosteroid: 40 mg triamcinolone acetonide 40 mg/mL Procedure completed successfully: yes Complications: no apparent complications Post-procedure instructions: avoid strenuous activity for 2 days ILL EQUIPMENT OPERATOR documented in this encounter Plan of Treatment Scheduled Referrals Name Type Priority Associated Diagnoses Order S [facility] Internal Outpatient Referral Routine Ex pected: Medicine office 04/24/2017 visit (clinic) (Approximate) , Expires: 04/04/2020 documented as of this encounter Procedures Procedure Name Priority Date/Time Associated Diagnosis Comme nts ID ARTHCS ASP/INJ Routine 04/04/2017 11:15 Epicondylitis Media l Results for this INT JT WO US AM SAWMILL EQUIPMENT OPERATOR Right procedure are i n the results section. JOINT Routine 04/04/2017 11:15 Epicondylitis Medial Res ults for this ASPIRATION/INJECTI AM SAWMILL EQUIPMENT OPERATOR Right procedure are in ON the results section. documented in this encounter Results ID ARTHCS ASP/INJ INT JT WO US (04/04/2017 11:15 AM SAWMILL EQUIPMENT OPERATOR) Narrative MMODAL - 04/04/2017 11:15 AM SAWMILL EQUIPMENT OPERATOR Eliseo Hoffman M.D. ? 04/04/2017 ??2:15 PM Large Joint Injection Date/Time: 04/04/2017 11:07 AM Performed by: Eliseo Hoffman Authorized by: Eliseo Hoffman Piece Dyeing Machine Tender utilized: newspaper peddler not ne eded ?? Risks discussed with: patient Procedural risks discussed, including (b ut not limited to) the following: infection, allergic reaction and bleedin g Consent obtained: verbal, given by: az ent [...] procedure : yes ?? Skin preparation: chlorhexidine Anesthesia method: pre-procedure local i nfiltration Procedure location: knee and elbow - Elbow site: R medial epicondyle Patient position: seated Procedural approach: medial Procedure performed: injection only Needle gauge: 22 G, length: 1 1/2 in The following medications were administe red at the target site(s): ??Local anesthetic: 3 mL lidocaine 10 m g/mL (1 %); 2 mL lidocaine 10 mg/mL (1 %) ??Corticosteroid: 40 mg triamcinolone a cetonide 40 mg/mL Procedure completed successfully: yes Complications: no apparent complications ?Post-procedure instructions: avoid st renuous activity for 2 days Eliseo Hoffman M.D. PROCEDURE/MINOR SURGICAL ORD ERABLES Performing Organization Address City/State/ZIP Code Phon e Number MMODAL MM[facility] NA JOINT ASPIRATION/INJECTION (04/04/2017 11:15 AM SAWMILL EQUIPMENT OPERATOR) Narrative MMODAL - 04/04/2017 11:15 AM SAWMILL EQUIPMENT OPERATOR Eliseo Hoffman M.D. ? 04/04/2017 ??2:15 PM Arthrocentesis Date/Time: 04/04/2017 11:06 AM Performed by: Eliseo Hoffman Authorized by: Eliseo Hoffman Pre-procedure details: ??Location: ??Elbow ??Elbow: ??Right elbow Procedure details: ??Ultrasound guidance: no ?Approach: ??Medial ??Steroid injected: yes ?? Eliseo Hoffman M.D. PROCEDURE/MINOR SURGICAL ORD ERABLES Performing Organization Address City/State/ZIP Code Phon e Number MMODAL MMODAL NA documented in this encounter Visit Diagnoses Diagnosis Epicondylitis Medial Right - Primary Retention Urinary Hypertension And Chronic Kidney Disease Stage 3 (HCC) documented in this encounter Administered Medications Inactive Administered Medications - up to 3 most recent administrations Medication Order MAR Action Action Date Dose Rate Site lidocaine 10 mg/mL (1 %) injection Given 04/04/2017 11:07 AM SAWMILL EQUIPMENT OPERATOR 2 mL 2 mL (for_XYLOCAINE) 2 mL, infiltration, One-Time, Starting on Mon04/04/17 at 1107, For 1 dose lidocaine 10 mg/mL (1 %) injection 3 mL Given 04/04/2017 11:07 A M SAWMILL EQUIPMENT OPERATOR 3 mL (for_XYLOCAINE) 3 mL, infiltration, One-Time, Starting on Mon04/04/17 at 1107, For 1 dose triamcinolone acetonide injection 40 mg Given 04/04/2017 11:07 A M SAWMILL EQUIPMENT OPERATOR 40 mg (for_KENALOG-40) 40 mg, intra-articular, One-Time, Starting on Mon04/04/17 at 1107, For 1 dose documented in this encounter Care Teams Church History Teacher Relationship Specialty Start Date End Date Eliseo Hoffman M.D. PCP - General 09/08/16 11/16/[address] [place] [phone] documented as of this encounter
--- OUTSIDE RECORDS SUMMARY | 2022-02-28 01:43 | XMS_ITS | Encounter Summary ---
:1940 Author Organization [facility] Address [address] [place] [address] Care Team Providers Name Role Phone Neda Hoffman M.D. Primary Care Provider Encounter Details Date Type Department Care Team Description 12/26/2016 Hospital Encounter HX [facility] INTERNMED Regulo Hoffman M.D. [address] [place] [address] [phone] (Wo rk) Social History Tobacco Use Types Packs/Day Years Used Date Smoking Tobacco: Never Sex Assigned at Date Recorded Female 09/25/2017 1:20 PM CDT documented as of this encounter Last Filed Vital Signs Vital Sign Reading Time Taken Comments Blood Pressure 130/82 12/26/2016 8:32 AM CDT Pulse 64 12/26/2016 8:32 AM CDT Temperature - - Respiratory Rate 16 12/26/2016 8:32 AM CDT Oxygen Saturation - - Inhaled Oxygen Concentration - - Weight 73.1 kg (161 lb 4.3 oz) 12/26/2016 8:32 AM CDT Height 159 cm (5' 2.6) 12/26/2016 8:32 AM CDT Body Mass Index 28.94 12/26/2016 8:32 AM CDT documented in this encounter Medications [...] daily. tablet documented as of this encounter H&P Notes Neda Hoffman M.D. - 12/26/2016 8:24 AM CDT [id number] CHIEF COMPLAINT/REASON FOR VISIT Preventive medicine with acute problems. ACUTE PROBLEMS: 1. Malaise and fatigue. The patient is experiencing some malaise and fatigue. She is not very concerned about this. She feels it is probably constitutional or related to aging, but she wants to be surethere are no metabolic abnormalities. 2. Polymyalgia rheumatica. She feels good and has no symptoms of polymyalgia rheumatica at the moment. A sedimentation rate will be checked and will reduce her prednisone if possible. 3. Hypertension. The blood pressure was anomalously very elevated on the last visit. It is completely normal today. I cannot recommend any change based on that. 4. Mixed dyslipidemia, controlled by diet. We will be monitoring her lipids today. 5. 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 Will check an A1c. She has no polyuria, polyphagia or polydipsia. MEDICATIONS Per EMR. ALLERGIES Per EMR. SYSTEMS REVIEW Review of systems in all areas is complete and is negative except as mentioned above. PAST MEDICAL/SURGICAL HISTORY 1. DJD. 2. Varicose veins of the lower extremity. 3. 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 4. PMR. 5. Hypertension. 6. Mixed dyslipidemia. 7. AODM type 2. FAMILY HISTORY/SOCIAL HISTORY She is . She does not smoke. Has rare social alcohol. PHYSICAL EXAMINATION VITAL SIGNS: Temperature 36.7, heart rate 64, respiratory rate 16, blood pressure 130/82. Actual weight 73.15. HEENT: Eyes: Conjunctivae and lids normal. Pupils equal, round, reactive to light and accommodation.Extraocular movements normal. Sclerae nonicteric. Ophthalmologic exam grossly normal. ENT: Tympanic membranes look okay bilaterally. Nares without erythema or congestion. Mouth without erythema or exudate, no leuko or erythroplakia. [place] teeth top and bottom. NECK: Supple, no adenopathy or thyromegaly. Carotid [...] or fourthsound, no significant murmur, no gallop. BREAST: Palpation of the breasts is without mass or discharge, there is no axillary supraclavicular adenopathy, there is no nipple inversion, or dimpling of the skin. ABDOMEN: Soft and nondistended. No organomegaly. No focal mass or tenderness. PERIPHERAL VASCULAR: There are good femoral, popliteal and dorsalis pedis pulses bilaterally; no bruits over the femoral arteries. GENITOURINARY: Deferred. RECTAL: Deferred. EXTREMITIES: Warm, dry, and noncyanotic without clubbing or peripheral edema. NEUROLOGICAL: Cranial nerves II to XII are grossly intact. Reflexes in the upper and lower extremities are bilaterally symmetric. Toes are downgoing. There is no dysmetria. Gait is normal. SKIN: Inspection of the skin and subcutaneous tissue reveals nothing inconsistent with age. IMPRESSION/REPORT/PLAN ACTIVE PROBLEMS: 1. Malaise and fatigue. The patient is experiencing some malaise and fatigue. She is not very concerned about this. She feels it is probably constitutional or related to aging, but she wants to be surethere are no metabolic abnormalities. 2. Mixed hyperlipidemia. She watches her diet. We will check lipid panel today. 3. Type 2 diabetes. Check A1c and urine microalbumin. She is asymptomatic. 4. Polymyalgia rheumatica. She has absolutely no symptoms so hopefully her sedimentation rate will be normal and we can reduce the prednisone. Since she has no symptoms, even if the sedimentation rate is minimally elevated, I would probably reduce the prednisone. Current dose is 7.5 mg. INACTIVE PROBLEMS: Please see Past Medical History. HEALTH MAINTENANCE CONCERNS Instructed to have a complete physical examination once a year, to see an machine sign writer or jammer operator once a year for glaucoma screening, and see the dentist at least once or twice a year. Instructed to wear seatbelts when in a motor vehicle . Questioned about symptoms of domestic abuse and there are none. She will have mammograms performed once a year and she will do breast self- examinations oncea month. She was instructed in the principles of breast self- examination and demonstrated competencyin the office. The patient was recommended to drink at least 6 glasses of plain water each day, have6 servings of fruits and vegetables each day, and get good aerobic exercise. I also recommended she take a generic multivitamin without iron once a day. She is scheduled for a mammogram. She is currenton colonoscopy and she had today the following labs: BMP, a hemoglobin, a hemoglobin A1c, a lipid panel, a sedimentation rate, a thyroid function cascade, a urine with reflex to culture and a urine microalbumin. We will call her with results. Recommended for a flu shot at the end of December. Neda Hoffman M.D./kimmie Electronically Signed By: NEDA HOFFMAN MD On: 12/26/2016 11:18 AM Source: [facility] MHSDOLBEYNONRADSYS Document Id: [id number] documented in this encounter Miscellaneous Notes Miscellaneous - Neda Hoffman M.D. - 12/27/2016 8:24 AM CDT Results Notification Document Contains Addenda Addendum by ARUN MAR CMA on December 27, 2016 15:30:21 CDT Patient was notified yesterday. No questions or concerns. From: NEDA HOFFMAN MD To: Neda Hoffman Nurse; Sent: 12/27/2016 08:24:07 CDT ! Show up: 12/27/2016 08:24:07 CDT Subject: Results Notification Actions: Notify patient of results Reminder Comments: normal Results: Date Result Name Value Ref Range 12/26/2016 09:29 TSH, Sensitive-Wick 0.8 mIU/L (0.3-4.2 - ) [facility] Document Id: [id number] Telephone Encounter - Conversion, Historical Provider Ser - 12/26/2016 2:54 PM CDT *Phone Message/Dr. Neda Hoffman Document Contains Addenda Addendum by ARUN MAR CMA on December 26, 2016 15:42:43 CDT Notified patient. No further questions or concerns Addendum by NEDA HOFFMAN MD on December 26, 2016 15:25:55 CDT From: NEDA HOFFMAN MD To: Neda Hoffman Nurse; Sent: 12/26/2016 15:25:55 CDT Subject: RE: *Phone Message/Dr. Neda Hoffman take 5 mg a day and recheck in 6 weeks with a sed rate. Addendum by ARUN MAR CMA on December 26, 2016 14:56:50 CDT From: ARUN MAR CMA ( Neda Hoffman Nurse) To: NEDA HOFFMAN MD; Sent: 12/26/2016 14:56:50 CDT Subject: FW: *Phone Message/Dr. Neda Hoffman Addendum by ARUN MAR CMA on December 26, 2016 14:56:44 CDT Please advise. From: AGNES LEA ( Boyce Mixer Machine Feeder) To: ANDRIA Hoffman Nurse; Sent: 12/26/2016 14:54:48 CDT Subject: *Phone Message/Dr. Neda Hoffman Caller is: ( x) Patient ( ) Mother ( ) Father ( ) Spouse ( ) Daughter ( ) Son ( ) Pharmacy ( ) Other: Physician: Dr. Neda Hoffman Patient MRN #: Reason for Call: Message: Patient states that she needs to speak with the nurse regarding her prednisone. She is not sure if she should be decreasing it. Please call her back at [phone] to advise. Advice/Action: Source used: ( ) Verbalizes understanding of instructions ( ) Instructed to call back if symptoms worsen or do not resolve ( ) Refused to see provider ( ) Appointment Scheduled ( ) OK to leave message on voice mail ( ) Patient told to expect return call: ( ) today ( ) tomorrow ( ) next work day ( ) Patient's email ( ) Patient told physician out of office, will call upon return call on ( ) ( ) Patient told physician out of office, routed to other physician ( ) Other ( ) Call back telephone number ( ) Call back cell phone number ( ) Source: [facility] [employer] Document Id: [id number] Miscellaneous - Ndea Hoffman M.D. - 12/26/2016 9:09 AM CDT Ambulatory Patient Summary [address] [id number] Visit Information Name: JACOB ANDINO [facility] Number: [id number] Current Date: 12/26/2016 09:09:19 Physicians Attending Provider: NEDA HOFFMAN MD Primary Care Provider: NEDA HOFFMAN MD JACOB ANDINO has been given the following list [...] tab(s), Oral, once a day (at bedtime) *desonide topical (desonide 0.05% topical cream) 1 ciara, Topical, two times a day furosemide (furosemide 40 mg oral tablet) 1 Tablet(s), Oral, once a day labetalol (labetalol 200 mg oral tablet) 1 Tablet(s), Oral, two times a day multivitamin (multivitamin) Oral, once a day predniSONE (predniSONE 5 mg oral tablet) 1.5 Tablet(s), Oral, once a day * You have let us know that you are not taking this medication as listed. Please talk with your primary care provider or the health care provider who prescribed the medication as soon as possible. Stop Taking the Following Medications: Medication list as of 12-26-16 09:09 Attention: If you have any medications at [...] Electronically Signed By: NEDA HOFFMAN MD Signed On:26-DEC-2016 09:06:56 Your Allergies & Intolerances Substance Reaction Symptoms [...] Your Upcoming Appointments Date Time Location Provider 01/09/2017 11:30 [facility] Mammo [facility] MA Exam RM 1 Attention: Contact your local Clinic if further [...] if you dont have one. Go to [email or web address] and click on Create Your Account. Then, follow the directions to complete the online form. Youll be asked for your [facility] number which you can find at the top of this document. Your Goals/Additional instructions: Source: [facility] POWERCHART Document Id: [id number] Miscellaneous - Neda Hoffman M.D. - 12/26/2016 9:09 AM CDT Ambulatory Discharge Medication List [address] [id number] Visit Information Name: JACOB ANDINO [facility] Number: [id number] Current Date: 12/26/2016 09:09:18 Attending Provider: NEDA HOFFMAN MD Primary Care Provider: NEDA HOFFMAN MD JACOB ANDINO has been given the following list [...] tab(s), Oral, once a day (at bedtime) *desonide topical (desonide 0.05% topical cream) 1 ciara, Topical, two times a day furosemide (furosemide 40 mg oral tablet) 1 Tablet(s), Oral, once a day labetalol (labetalol 200 mg oral tablet) 1 Tablet(s), Oral, two times a day multivitamin (multivitamin) Oral, once a day predniSONE (predniSONE 5 mg oral tablet) 1.5 Tablet(s), Oral, once a day * You have let us know that you are not taking this medication as listed. Please talk with your primary care provider or the health care provider who prescribed the medication as soon as possible. Stop Taking the Following Medications: Medication list as of 12-26-16 09:09 Attention: If you have any medications at [...] Electronically Signed By: NEDA HOFFMAN MD Signed On:26-DEC-2016 09:06:56 Additional Information: Source: [facility] POWERCHART Document Id: [id number] Miscellaneous - Arun Mar, C.MReginaARegina - 12/26/2016 8:32 AM CDT Adult Marketing Technologist Intake/History Adult Marketing Technologist Intake/History Entered On: 12/26/2016 8:37 CDT Performed On: 12/26/2016 8:32 CDT by ARUN MAR [facility] Intake Chief Complaint : 1. Physical 2. Saw Dr. Christine a couple weeks ago for being sick and bad UTI symptoms Temperature Core : 36.7 DegC(Converted to: 98.1 DegF) Peripheral Pulse Rate : 64 /min Respiratory Rate : 16 /min Heart Rhythm : Regular Systolic Blood Pressure : 130 mmHg Diastolic Blood Pressure : 82 mmHg NIBP Mean : 98 mmHg BP Location : Left upper extremity Blood Pressure Cuff Size : Regular Height : 159 cm(Converted to: 5 ft 3 inch(es), 63 inch(es)) Actual Weight : 73.15 kg(Converted to: 161 lb 4 oz) Weight Source : Standing scale Dosing Weight Clinic : 73.15 kg Clinic BSA : 1.8 Body Mass Index : 28.93 kg/m2 ARUN MAR [facility] - 12/26/2016 8:32 CDT General Info Information Given By : Patient Preferred Communication Mode : Verbal Languages : Kyrgyz Is Patient Female and 13-50 no hysterectomy : No ARUN MAR [facility] - 12/26/2016 8:32 CDT Subjective Pain Symptoms : No ARUN MAR [facility] - 12/26/2016 8:32 CDT Dependent Habits Exposure to Tobacco Smoke : Care provider denies smoking in home, Other: Never Smoking Status : Never smoker Tobacco 2A : No Tobacco Use/Currently Using : No Tobacco Use/Last 30 Days : No Tobacco Use/Last 12 months : No ARUN MAR [facility] 12/26/2016 8:32 CDT Caffeine Use Grid Caffeine Use : Current Type : Coffee Frequency : Daily ARUN MAR [facility] - 12/26/2016 8:32 CDT Recreational Drug Use Grid Drug Use : None ARUN MAR [facility] 12/26/2016 8:32 CDT Source: [employer] Document Id: [id number] documented in this encounter Plan of Treatment Not on filedocumented as of this encounter Procedures Procedure Name Priority Date/Time Associated Comments Diagnosis BACTERIAL CULTURE, Routine 12/26/2016 9:43 AM Res ults for this AEROBIC, URINE CDT procedure are in the results section. URINALYSIS, DIPSTICK Routine 12/26/2016 9:29 AM R esults for this CDT procedure are i n the results section. LIPID PANEL, S Routine 12/26/2016 9:29 AM Results for this CDT procedure are i n the results section. THYROID FUNCTION Routine 12/26/2016 9:29 AM Resul ts for this CASCADE, S CDT procedure are i n the results section. ALBUMIN, RANDOM, U Routine 12/26/2016 9:29 AM Res ults for this CDT procedure are i n the results section. SEDIMENTATION RATE, B Routine 12/26/2016 9:29 AM Results for this CDT procedure are i n the results section. HEMOGLOBIN, B Routine 12/26/2016 9:29 AM Results for this CDT procedure are i n the results section. HEMOGLOBIN A1C, B Routine 12/26/2016 9:29 AM Resu lts for this CDT procedure are i n the results section. BASIC METABOLIC PANEL, Routine 12/26/2016 9:29 AM Results for this S/P CDT procedure are i n the results section. documented in this encounter Results Bacterial Culture, Aerobic, Urine (12/26/2016 9:43 AM CDT) [facility] Bacterial POWERCHART Culture, Aerobic, Urine HXFinal No growth POWERCHART Specimen Anatomical Collection Method Collection Time Receive d Time (Source) Location / / Volume Laterality Urine, First 12/26/2016 9:43 AM 7 9:43 Voided CDT AM CDT Neda Hoffman M.D. LAB MICROBIOLOGY - GENERAL O RDERABLES Performing Organization Address City/[facility] Phon e Number POWERCHART POWERCHART NA (ABNORMAL) Sedimentation Rate (12/26/2016 9:29 AM CDT) [facility] Method Time Signature Sedimentation 31 (H) 0 - 29 POWERCHART Rate, B MMHR Specimen (Source) Anatomical Collection Method Collection Time Re ceived Time Location / / Volume Laterality Blood 12/26/2016 9:29 AM CDT Neda Hoffman M.D. LAB BLOOD ADD-ON Performing Organization Address City/[facility] Code Phon e Number POWERCHART POWERCHART NA Hemoglobin (12/26/2016 9:29 AM CDT) P athologist Signature Hemoglobin 12.3 12.0 - 15.5 POWERCHART GDL Specimen (Source) Anatomical Collection Method Collection Time Re ceived Time Location / / Volume Laterality Blood 12/26/2016 9:29 AM CDT Neda Hoffman M.D. LAB BLOOD ADD-ON Performing Organization Address [facility] Phon e Number POWERCHART POWERCHART NA Microalbumin, Random, Urine (12/26/2016 9:29 AM CDT) [facility] Method Time Signature Creatinine, 74 29 - 226 POWERCHART Random, U MGDL HXU Albumin % <7.0 MGL POWERCHART Albumin/Creati See Comment 0 - 25 POWERCHART nine Ratio MGG Comment: Result is below the linear limit of test method. No calculation performed. 12/26/2016 13:59:49 CDT ajb Specimen (Source) Anatomical Collection Method Collection Time Re ceived Time Location / / Volume Laterality Urine 12/26/2016 9:29 AM CDT Neda Hoffman M.D. LAB URINE ORDERABLES Performing Organization Address [facility] Code Phon e Number POWERCHART POWERCHART NA (ABNORMAL) Hemoglobin A1c (12/26/2016 9:29 AM CDT) athologist Signature Hemoglobin A1c, 6.4 (H) <=5.6 A1C POWERCHART B Specimen (Source) Anatomical Collection Method Collection Time Re ceived Time Location / / Volume Laterality Blood 12/26/2016 9:29 AM CDT Neda Hoffman M.D. LAB BLOOD ADD-ON Performing Organization Address [facility] Phon e Number POWERCHART POWERCHART NA (ABNORMAL) Urinalysis no Reflex (12/26/2016 9:29 AM CDT) [facility] gist Method Time Signature Clarity Slightly Clear POWERCHART Cloudy (A) HXUr Color Yellow Colorless POWERCHART Specific <=1.005 POWERCHART [place], POCT, U Comment: Reference Range Specific [place]: 1.000-1.035 pH, POCT, Urine 6.5 <5.0 POWERCHART Comment: Reference Range pH: 5.0-8.0 Protein, Ur, Dip Negative Negative MGDL POWERCHAR T Glucose Negative Negative MGDL POWERCHART Ketones, QL(U) Negative Negative MGDL POWERCHART HXBILIRUBIN Negative Negative POWERCHART HXBLOOD Negative Negative POWERCHART Leukocyte Esterase Moderate (A) Negative POWERCHA RT HXNITRITE Negative Negative POWERCHART Urobilinogen 0.2 0.2 MGDL POWERCHART Comment: Reference Range Urobilinogen: 0.2-1.0 mg/dL HXUR WBC. 11-20 (A) None Seen HPF POWERCHART HXUR RBC. Occ-2 None Seen HPF POWERCHART Transitional Cells Occ-3 (A) None Seen HPF POWERCH ART Squamous Epithelial 4-10 (A) None Seen HPF POWERC CIFUENTES HXUR Bacteria, None Seen None Seen POWERCHART Specimen (Source) Anatomical Collection Method Collection Time Re ceived Time Location / / Volume Laterality Urine, First 12/26/2016 9:29 AM Voided CDT Neda Hoffman M.D. LAB URINE ORDERABLES Performing Organization Address [facility] Phon e Number POWERCHART POWERCHART NA Thyroid Function [place] (12/26/2016 9:29 AM CDT) P athologist Signature TSH, Sensitive 0.8 0.3 - 4.2 POWERCHART ROBBIEUL Comment: Test Performed by: [address] [address] Specimen (Source) Anatomical Collection Method Collection Time Re ceived Time Location / / Volume Laterality Blood 12/26/2016 9:29 AM CDT Neda Hoffman M.D. LAB BLOOD ADD-ON Performing Organization Address City/State/ZIP Code Phon e Number POWERCHART POWERCHART NA Lipid Panel (12/26/2016 9:29 AM CDT) P athologist Signature Cholesterol, 168 <=199 MGDL POWERCHART Total Comment: 2013 National Lipid Association recommen dations for Total Cholesterol in adults ages 18 and up: Desirable <200 mg/dL Borderline high 200-239 mg/dL High 240 mg/dL 2014 National Lipid Association recommen dations for Total Cholesterol in children ages 2 to 17. Acceptable <170 mg/dL Borderline High 170-199 mg/dL High 200 mg/dL HX HDL 71 >=50 MGDL POWERCHART Comment: 2014 National Lipid Association recommen dations for HDL-C in adults ages 18 and up: Low <40 mg/dL (Men) Low <50 mg/dL (Women) 2014 National Lipid Association recommen dations for HDL-C in children ages 2 to 17. Low <40 mg/dL Borderline Low 40-45 mg/dL Acceptable >45 mg/dL Triglycerides 108 <=149 MGDL POWERCHART Comment: 2014 National Lipid Association recommen dations for Triglycerides in adults ages 18 and up: Normal <150 mg/dL Borderline High 150-199 mg/dL High 200-499 mg/dL Very High 500 mg/dL 2014 National Lipid Association recommen dations for Triglycerides in children ages 2 to 9. Acceptable <75 mg/dL Borderline High 75-99 mg/dL High 100 mg/dL 2014 National Lipid Association recommen dations for Triglycerides in children ages 10 to 17. Acceptable <90 mg/dL Borderline High 90-129 mg/dL High 130 mg/dL Trigs >400mg/dL: Triglycerides >400 mg/ dL. Calculated LDL cholesterol is not valid. Non-HDL cholesterol may be used for risk assessment when triglycerides are >400mg/dL. Calculated LDL 75 <=129 MGDL POWERCHART Comment: 2014 National Lipid Association recommen dations for LDL-C in adults ages 18 and up: Desirable <100 mg/dL Above desirable 100-129 mg/dL Borderline high 130-159 mg/dL High 160-189 mg/dL Very High 190 mg/dL 2014 National Lipid Association recommen dations for LDL-C in children ages 2 to 17. Acceptable <110 mg/dL Borderline High 110-129mg/dL High 130 mg/dL LDL-C >190mg/dL: The markedly elevated LDL level is suggestive of a genetic condition such as familial hypercholesterolemia(FH) or familial defective apolipoprotein B-100 (FDB). Molecular genetic t esting for FH and FDB is available [facility]: FH/ADH Genetic Reflex Pinedo el (test ADHP). Acquired (non-genetic) causes of markedly increased LDL cholesterol include cholestatic liver disease due to the presence of LpX. If a genetic form of hypercholesterolemia is suspected, family studies including biochemical testing fo r lipids (total cholesterol,triglycerides, LDL cholesterol and HDL cholesterol) are recommended. ??Please contact the laboratory at or the on-line test catalog at [employer] for information about how to order these [place] ts or to speak with a genetic counselor. Further interpretation would require clinical information. Total Cholesterol/HDL Ratio 2.00 PO WERCHART HXLDL/HDL 1 POWERCHART Specimen (Source) Anatomical Collection Method Collection Time Re ceived Time Location / / Volume Laterality Blood 12/26/2016 9:29 AM CDT Neda Hoffman M.D. LAB BLOOD ADD-ON Performing Organization Address City/State/ZIP Code Phon e Number POWERCHART POWERCHART NA (ABNORMAL) BMP (Basic Metabolic Panel) (12/26/2016 9:29 AM CDT) P athologist Signature Sodium, S 142 135 - 145 POWERCHART MMOLL Potassium, S 4.1 3.6 - 5.2 POWERCHART MMOLL Chloride, S 102 98 - 107 POWERCHART MMOLL CO2 Total 29 22 - 29 POWERCHART MMOLL Comment: Reference ranges have not been established for patients that are <12 months of age. Glucose, Fasting, S 109 (H) 70 - 99 MGDL POWERCH ART BUN (Blood Urea Nitrogen), S 24 (H) 6 - 21 MGDL POWERCHART Creatinine 0.97 0.60 - 1.10 MGDL POWERCHART Calcium, Total, S 9.2 8.8 - 10.3 MGDL POWERC CIFUENTES Anion Gap 11 7 - 15 MMOLL POWERCHART HXeGFR (MDRD) 56 (L) >=60 [id number] POWERCHART eGFR Black/ >60 >=60 [id number] POWERCHART Specimen (Source) Anatomical Collection Method Collection Time Re ceived Time Location / / Volume Laterality Blood 12/26/2016 9:29 AM CDT Neda Hoffman M.D. LAB BLOOD ADD-ON Performing Organization Address City/State/ZIP Code Phon e Number POWERCHART POWERCHART NA documented in this encounter Visit Diagnoses Not on filedocumented in this encounter Additional Health Concerns Assessment Noted Time PHQ-9 Depression Total Score: 1 02/03/2016 8:15 AM TOPSTITCHER LOCKSTITCH documented as of this encounter Care Teams Ambulance Driver Paramedic Relationship Specialty Start Date End Date Neda Hoffman M.D. PCP - General 09/08/16 11/16/[address] [place] [address] THOMAS Guajardo [id number] documented as of this encounter
--- OUTSIDE RECORDS SUMMARY | 2022-02-28 01:43 | XMS_ITS | Encounter Summary ---
:1940 Author Organization [facility] Address [address] [place] [address] Care Team Providers Name Role Phone Eliseo Hoffman M.D. Primary Care Provider Encounter Details Date Type Department Care Team Description 02/06/2017 Nurse Only Department of Family Kary Dennison, C.M .ARegina Medicine, [facility], in [facility] [address] [place] [address] Social History Tobacco Use Types Packs/Day Years Used Date Smoking Tobacco: Never Sex Assigned at Date Recorded Female 09/25/2017 1:20 PM CDT documented as of this encounter Plan of Treatment Not on filedocumented as of this encounter Visit Diagnoses Not on filedocumented in this encounter Additional Health Concerns Assessment Noted Time PHQ-9 Depression Total Score: 1 02/03/2016 8:15 AM PERMIT TECHNICIAN documented as of this encounter Care Teams Fitness And Wellness Manager Relationship Specialty Start Date End Date Eliseo Hoffman M.D. PCP - General 09/08/16 11/16/17 [address] [place] [address] documented as of this encounter
--- OUTSIDE RECORDS SUMMARY | 2022-02-28 01:43 | XMS_ITS | Encounter Summary ---
:1940 Author Organization [facility] Address [address] [place] [address] Care Team Providers Name Role Phone Eliseo Hoffman M.D. Primary Care Provider Encounter Details Date Type Department Care Team Description 01/09/2017 Hospital Encounter HX [facility] M[facility] Eliseo Hoffman M.D. [address] [place] [phone] (Wo rk) Social History Tobacco [...] furosemide (for_LASIX) Take 0.5 tablets by 0 /05/201604/19/2017 40 mg tablet mouth daily. labetalol Take 1 tablet by mouth 0 11/29/2016 (for_NORMODYNE) 200 mg 2 (two) times a day. tablet losartan (for_COZAAR) Take 1 tablet by mouth 0 02/09/2017 100 mg tablet daily. predniSONE Take 1.5 tablets by 0 05/11/201604/19 (for_DELTASONE) 5 mg mouth daily. tablet documented as of this encounter Plan of Treatment Not on filedocumented as of this encounter Procedures Procedure Name Priority Date/Time Associated Diagnosis Comme nts BI BREAST SCREENING Routine 01/09/2017 11:40 AM R esults for this BILATERAL CDT procedure are i n the results section. documented in this encounter Results BI Breast Screening Bilateral (01/09/2017 11:40 AM CDT) Anatomical Region Laterality Modality Breast Bilateral Mammography Specimen (Source) Anatomical Collection Method Collection Time Re ceived Time Location / / Volume Laterality 01/09/2017 11:40 AM CDT Addenda Addendum by Provider, Estella Kagn 01/09/2017 11:40 AM CDT RAD^^^OW MA Mammo Screening w ??CADD 01/09/2017 11:40:55 MA Mammo Screening w ??CADD Impressions 01/09/2017 2:11 PM CDT Negative. No mammographic findings of malignancy. ?? RECOMMENDATIONS: Annual screening mammog jory. ?? BI-RADS ASSESSMENT: CODE: 1-NEGATIVE Full field digital mammography is used a nd Computer Aided Detection is performed on the digital mammogram image s. LETTER SENT: L1/2 - negative screen Narrative 01/09/2017 2:11 PM CDT EXAM: MA Mammo Screening w/ CADD INDICATION: Screening. ? COMPARISON: Prior examination(s) are joaquina ilable for comparison. ?? DENSITY: b. There are scattered areas of fibroglandular density. FINDINGS: No findings of malignancy. No significant change since prior exams. Procedure Note Taty Paniagua M.D. / Provider, Jase mack M.D. - 01/18/2017 EXAM: MA Mammo Screening w/ CADD INDICATION: Screening. COMPARISON: Prior examination(s) are joaquina ilable for comparison. DENSITY: b. There are scattered areas of fibroglandular density. FINDINGS: No findings of malignancy. No significant change since prior exams. IMPRESSION: Negative. No mammographic fi ndings of malignancy. RECOMMENDATIONS: Annual screening mammog jory. BI-RADS ASSESSMENT: CODE: 1-NEGATIVE Full field digital mammography is used a nd Computer Aided Detection is performed on the digital mammogram image s. LETTER SENT: L1/2 - negative screen Lisa Tsang(R), Trinh(R)(M) IMG BI PROCEDU RES documented in this encounter Visit Diagnoses Not on filedocumented in this encounter Additional Health Concerns Assessment Noted Time PHQ-9 Depression Total Score: 1 02/03/2016 8:15 AM HANDLE ASSEMBLER documented as of this encounter Care Teams Cold Press Operator Relationship Specialty Start Date End Date Eliseo Hoffman M.D. PCP - General 09/08/16 11/16/[address] [place] [phone] documented as of this encounter
--- OUTSIDE RECORDS SUMMARY | 2022-02-28 01:43 | XMS_ITS | Encounter Summary ---
:1940 Author Organization [facility] Address [address] [place] [address] Care Team Providers Name Role Phone Eliseo Hoffman M.D. Primary Care Provider Reason for Referral Outpatient (Routine) - Closed Specialty Diagnoses / Procedures Referred By Contact Refer red To Contact Community Internal Eliseo Hoffman, [facility] [address] [place] [address] Referral ID Status Reason Start Date Expiration Date Visits Requ ested Visits Authorized [id number] Closed 02/23/2017 08/22/2017 1 1 MATIC BLOCKER Reason for Visit Reason Comments Synvisc injection Right knee Encounter Details Date Type Department Care Team Description 02/23/2017 Office Visit Department of Eliseo Hoffman Pain Knee R ight (Primary Dx); [facility] Internal Estella Varela Hypertension And Chronic Kidney Disease Stage 3 (HCC) Medicine in [address] [phone] (Work) [phone] Social History Tobacco Use Types Packs/Day Years Used Date Smoking Tobacco: Never Smokeless Tobacco: Never Sex Assigned at Date Recorded Female 09/25/2017 1:20 PM CDT documented as of this encounter Last Filed Vital Signs Vital Sign Reading Time Taken Comments Blood Pressure 142/62 02/23/2017 10:03 AM AUTOMATIC BLOCKER Pulse 72 02/23/2017 10:00 AM AUTOMATIC BLOCKER Temperature 36.4 ??C (97.5 ??F) 02/23/2017 10:00 AM AUTOMATIC BLOCKER Respiratory Rate - - Oxygen Saturation - - Inhaled Oxygen Concentration - - Weight 72.3 kg (159 lb 8 oz) 02/23/2017 10:00 AM AUTOMATIC BLOCKER Height - - Body Mass Index 28.62 01/12/2017 2:16 PM CDT documented in this encounter Progress Notes Eliseo Hoffman M.D. - 02/23/2017 12:00 AM CST SUBJECTIVE CHIEF COMPLAINT/REASON FOR VISIT Third Synvisc shot and hypertension. Her blood pressure is reasonable today at 142/62. I think we could finally got things under pretty good control. She is taking a half of everything, so she takes half of a losartan at 50 mg because shehas a 100 mg pill. She takes a half of clonidine, 0.3 mg pill, and half of a furosemide pill, which is half of a 40, which is 20 mg, so basically we have Lasix at 20 mg, Cozaar at 50 mg, and Catapres at 0.15 mg for her blood pressure and looks reasonable. I am going to tell her next time if it is borderline like this if she can tolerate to try a full Cozaar pill but will leave things be at the momentbecause it is looking good. Otherwise, she is here for Synvisc, too. CURRENT MEDICATIONS Per EMR. ALLERGIES/CONTRAINDICATIONS Per EMR. REVIEW OF SYSTEMS Otherwise negative. MEDICAL HISTORY Significant for: 1. Polymyalgia rheumatica. 2. Pain in the right knee from DJD. 3. Hypertension and chronic kidney disease. 4. Mixed dyslipidemia. 5. Type 2 diabetes. SOCIAL HISTORY She is . She does not smoke or drink. OBJECTIVE PHYSICAL EXAMINATION Vital signs: Her blood pressure is 142/60. Weight 72.3. Pulse 72. Temperature is 36.4. HEENT: Eyes: Conjunctivae and lids normal. Pupils [...] or fourthsound, no significant murmur, no gallop. Extremities: Right knee is non-swollen and looks good. She is feeling much better after 2 Synvisc shots. ASSESSMENT / PLAN #1 hypertension Control is excellent. Continue current medications. Recheck in a month. Make further adjustments at that point. #2 right knee pain Final Synvisc was given. The knee is better already, which is a good sign. Please see the procedure note. Job ID: [id number] MATIC BLOCKER documented in this encounter Procedure Notes Eliseo Hoffman M.D. - 02/23/2017 10:30 AM CSTAssociated Order(s): LARGE JOINT INJECTION Post-Procedure Diagnose(s): Pain Knee Right Large Joint Injection Date/Time: 02/23/2017 10:46 AM Performed by: Eliseo Hoffman Authorized by: Eliseo Hoffman Salesperson Parts utilized: paraprofessional interpreter not needed Risks discussed with: patient Procedural risks discussed, including (but not limited to) the following: infection, allergic reaction, bleeding and hematoma Consent obtained: verbal, given by: patient The [...] knee - Knee site: R knee joint Site prep: patient was prepped and draped in unsual sterile fashion Patient position: supine Procedural approach: medial Procedure performed: injection only Needle gauge: 21 G, length: 1 1/2 in The following medications were administered at the target site(s): Viscosupplement: 16 mg hylan g-f 20 16 mg/2 mL Procedure completed successfully: yes Complications: no apparent complications Post-procedure instructions: avoid strenuous activity for 2 days MATIC BLOCKER documented in this encounter Plan of Treatment Scheduled Referrals Name Type Priority Associated Diagnoses Order [facility] Internal Outpatient Referral Routine Ex pected: Medicine office 03/25/2017 visit (clinic) (Approximate) , Expires: 02/24/2020 documented as of this encounter Procedures Procedure Name Priority Date/Time Associated Diagnosis Comme nts [facility] ARTHCS ASP/INJ Routine 02/23/2017 10:30 AM Pain Knee Right Results for this MJR JT WO US AUTOMATIC BLOCKER procedure are i n the results section. documented in this encounter Results [place] ARTHCS ASP/INJ MJR JT WO US (02/23/2017 10:30 AM AUTOMATIC BLOCKER) Narrative [facility]AL - 02/23/2017 10:30 AM AUTOMATIC BLOCKER Eliseo Hoffman M.D. ? 02/25/2017 ??2:50 PM Large Joint Injection Date/Time: 02/23/2017 10:46 AM Performed by: Eliseo Hoffman Authorized by: Eliseo Hoffman Salesperson Parts utilized: paraprofessional interpreter not ne eded ?? Risks discussed with: patient Procedural risks discussed, including (b ut not limited to) the following: infection, allergic reaction, bleeding a nd hematoma Consent obtained: verbal, given by: az ent [...] knee - Knee site: R knee joint Site prep: patient was prepped and drape d in unsual sterile fashion ?? Patient position: supine Procedural approach: medial Procedure performed: injection only Needle gauge: 21 G, length: 1 1/2 in The following [...] hylan g-f 20 injection 16 mg Given 02/23/2017 10:46 AM AUTOMATIC BLOCKER 16 mg (for_SYNVISC) 16 mg, intra-articular, One-Time, Starting on Ria 02/23/17 at 1046, For 1 dose documented in this encounter Care Teams Chemical Plant Worker Relationship Specialty Start Date End Date Eliseo Hoffman M.D. PCP - General 09/08/16 11/16/[address] [place] [address] documented as of this encounter
--- OUTSIDE RECORDS SUMMARY | 2022-02-28 01:43 | XMS_ITS | Encounter Summary ---
:1940 Author Organization [facility] Address [address] [place] [address] Care Team Providers Name Role Phone Eliseo Hoffman M.D. Primary Care Provider Reason for Visit Reason Comments Follow-up BP Outpatient (Routine) - Closed Specialty Diagnoses / Procedures Referred By Contact Refer red To Contact Community Internal Eliseo Hoffman, [facility] Medicine [address] [address] [place] [address] Referral ID Status Reason Start Date Expiration Date Visits Requ ested Visits Authorized [id number] Closed 04/04/2017 10/01/2017 1 1 Encounter Details Date Type Department Care Team Description 04/19/2017 Office Visit Department of Eliseo Hoffman Hypertensclaire n And Chronic Kidney Disease Stage 3 (HCC) (Primary Dx); [facility] Internal Estella Varela Polymyalgia Rheumatica (HCC); Medicine in [address] Retention Urinary [place], [place] [address] [facility] [address] [place], [place] [phone] (Work) [phone] Social History Tobacco Use Types Packs/Day Years Used Date Smoking Tobacco: Never Smokeless Tobacco: Never Alcohol Use Standard Drinks/Week Comments No 0 (1 standard drink = 0.6 oz pure alcoho l) Sex Assigned at Date Recorded Female 09/25/2017 1:20 PM CDT documented as of this encounter Last Filed Vital Signs Vital Sign Reading Time Taken Comments Blood Pressure 158/72 04/19/2017 2:02 PM DRAFTER CIVIL ENGINEERING Pulse 80 04/19/2017 1:55 PM DRAFTER CIVIL ENGINEERING Temperature 36.6 ??C (97.9 ??F) 04/19/2017 1:55 PM DRAFTER CIVIL ENGINEERING Respiratory Rate 16 04/19/2017 1:55 PM DRAFTER CIVIL ENGINEERING Oxygen Saturation 98% 04/19/2017 1:55 PM DRAFTER CIVIL ENGINEERING Inhaled Oxygen Concentration - - Weight 70.4 kg (155 lb 1.5 oz) 04/19/2017 1:55 PM DRAFTER CIVIL ENGINEERING Height - - Body Mass Index 27.83 01/12/2017 2:16 PM CDT documented in this encounter Progress Notes Eliseo Hoffman M.D. - 04/19/2017 12:00 AM CST SUBJECTIVE CHIEF COMPLAINT/REASON FOR VISIT Hypertension and chronic kidney disease stage. The injection of her elbow worked very well. By 2 days she was pain-free and her knees are doing very well as well, so the injections that we have done have been very successful. The patient's blood pressure remains problematic. She cannot tolerate more than a certain dose of some of her pills. For example, it turns out that she can only take 0.15 of clonidine and still has some hallucination from itso I am going to drop her to a dose that she cannot do with her 0.3 mg pill, 0.1. I will send a new script for it; it is lower than what she is taking already. She is able to tolerate Cardizem without trouble so I am going to increase Cardizem to the maximum dose of 300 mg and a new script will be sent for that. She is able to take her Lasix as half of a 40 mg pill, or 20 mg a day. Not able to take losartan or lisinopril because of side effects. Will try Procardia XL 30 mg a day. She has never had that before and at that dose is reasonably free of side effects and any propensity to tachycardia fromit should be balanced by the increase in her Cardizem to 300 mg a day. So I think that would be a nice combination if she can take those 2 calcium blockers. We will have a lower dose of Catapres and will continue her diuretic at the same strength. She is not really having any symptoms consistent with polymyalgia rheumatica at the moment. Sed rates have been minimally elevated in the 30 to 50 range. I am going to have her drop from her current 5 mg to 2.5 mg of prednisone and will see her in a month and see how she is doing. Her urinary retention is doing very well and she has got a UROstim device and follows with Urology so she passes urine and has not any big residuals. CURRENT MEDICATIONS Per EMR. ALLERGIES/CONTRAINDICATIONS Per EMR. REVIEW OF SYSTEMS Complete review of systems is obtained, is negative except as mentioned above. MEDICAL HISTORY Significant for: 1. Urinary retention with a UROstim device. 2. Polymyalgia rheumatica. 3. Osteoarthritis of the knees. 4. Hypertension, chronic kidney disease stage III. 5. Mixed hyperlipidemia. 6. Type 2 diabetes treated with diet but improving very much as she gets off prednisone. 7. 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 SOCIAL HISTORY She is . She does not smoke or drink to excess. OBJECTIVE PHYSICAL EXAMINATION Vital Signs: Her temperature is 36.6, heart rate 80, blood pressure 158/72, weight 70.4, respiratoryrate 16, O2 saturation 98%. HEENT: Eyes: Conjunctivae [...] percussion with normal respiratory rate and effort. Abdomen: Soft, nondistended. No organomegaly. No focal mass or tenderness. Extremities: Warm, dry, noncyanotic. No clubbing or peripheral edema. Neurologic: She is alert, oriented and grossly nonfocal. ASSESSMENT / PLAN #1 Hypertension, chronic kidney disease stage 3, not meeting goals We reduced Catapres because of side effects to a single 0.1 mg tablet at bedtime. Increased CardizemCD to 300 mg capsule once a day and will keep her furosemide at the same dose and add Procardia XL 30 mg a day. #2 Polymyalgia rheumatica, very stable Drop from 5 to 2.5 mg a day and drop further when I see her in a month. #3 Urinary retention Continue to follow with her UROstim device down at [place]. Job ID: [id number] TER CIVIL ENGINEERING documented in this encounter Plan of Treatment Not on filedocumented as of this encounter Visit Diagnoses Diagnosis Hypertension And Chronic Kidney Disease Stage 3 (HCC) - Primary Polymyalgia Rheumatica (HCC) Retention Urinary documented in this encounter Care Teams Talent Advisor Relationship Specialty Start Date End Date Eliseo Hoffman M.D. PCP - General 09/08/16 11/16/[address] [place] [phone] documented as of this encounter
--- OUTSIDE RECORDS SUMMARY | 2022-02-28 01:44 | XMS_ITS | Encounter Summary ---
:1939 Author Organization [facility] Address [address] [place] [address] Care Team Providers Name Role Phone Unavailable Primary Care Provider Unavailable Encounter Details Date Type Department Care Team Description 05/16/2016 Hospital Encounter HX [facility] UROLOGY Javier Knowles, LARS, C.N.P. [address] [phone] (Wo rk) Social History Tobacco Use Types Packs/Day Years Used Date Smoking Tobacco: Never Sex Assigned at Date Recorded Female 09/25/2017 1:20 PM CDT documented as of this encounter Last Filed Vital Signs Vital Sign Reading Time Taken Comments Blood Pressure 128/52 05/16/2016 1:55 PM DIRECTOR HR COMMUNICATIONS Pulse 76 05/16/2016 1:26 PM DIRECTOR HR COMMUNICATIONS Temperature - - Respiratory Rate - - [...] 1 tablet by mouth 0 2009 daily. desonide (for_DESOWEN) Apply 1 application 0 /0 05/201205/04/2017 0.05 % cream topically 2 (two) times a day. predniSONE Take 1.5 tablets by 0 05/11/201604/19 (for_DELTASONE) 5 mg mouth daily. tablet documented as of this encounter Progress Notes Chadwick Knowles APRN, R.N. - 05/16/2016 12:36 PM CST [id number] CHIEF COMPLAINT/REASON FOR VISIT Follow up status post InterStim placement. HISTORY OF PRESENT ILLNESS Zoe is a pleasant 75-year-old female here today for a postoperative check after full InterStim implantation. She is doing fairly well with this. She is using the bathroom quite regularly. She states that she voids between 200 and 300 mL every 2 hours. She does use Crede maneuvers at the end of her stream. She feels like this is helping. MEDICATIONS Reviewed per EMR. ALLERGIES Reviewed per EMR. PAST MEDICAL/SURGICAL HISTORY Reviewed per EMR. VITAL SIGNS Temperature 36.2, heart rate 76, blood pressure 128/52. Not a tobacco user. PHYSICAL EXAMINATION GENERAL: Well-developed well-nourished well-groomed 75-year-old female in no acute distress. Alert, cooperative, oriented x3. HEAD: Normal appearance. No abnormalities. NECK: Symmetrical and supple. CARDIAC: Regular rate regular rhythm. RESPIRATORY: Respirations unlabored. Normal respiratory rate. Normal respiratory movement. ABDOMEN: Soft, nontender, nondistended. Incision is clean, dry, and intact. Dressing is removed. DIAGNOSTICS Postvoid residual 428 mL. IMPRESSION/REPORT/PLAN Status post InterStim placement. At this time she is still having a bit of urinary retention. We didmake adjustments. She is still on program 1. Increased her to voltage of 2.1. We did review usage ofher remote control. If she has issues or questions she will contact us. Otherwise we will see her inclinic in 1 month. All of her questions are answered. She is in agreement with the plans that we have made. Chadwick Knowles N.P./kimmie Electronically Signed By: CHADWICK KNOWLES APRN, RN On: 05/23/2016 09:22 AM Source: [facility] MHSDOLBEYNONRADSYS Document Id: [id number] CTOR HR COMMUNICATIONS documented in this encounter Miscellaneous Notes Miscellaneous - Dexter Santana L.P.N. - 05/16/2016 1:55 PM CST Ambulatory Vitals Height Weight Ambulatory Vitals Height Weight Entered On: 05/16/2016 13:55 DIRECTOR HR COMMUNICATIONS Performed On: 05/16/2016 13:55 DIRECTOR HR COMMUNICATIONS by DEXTER SANTANA LPN Vitals/Ht/Wt Systolic Blood Pressure : 128 mmHg Diastolic Blood Pressure : 52 mmHg NIBP Mean : 77 mmHg BP Location : Left upper extremity Blood Pressure Cuff Size : Regular DEXTER SANTANA LPN - 05/16/2016 13:55 DIRECTOR HR COMMUNICATIONS [facility] Document Id: [id number] DIRECTOR HR COMMUNICATIONS!7 CTOR HR COMMUNICATIONS Miscellaneous - Dexter Santana L.P.N. - 05/16/2016 1:26 PM CST Adult Dairy Husbandman Intake/History Adult Dairy Husbandman Intake/History Entered On: 05/16/2016 13:29 DIRECTOR HR COMMUNICATIONS Performed On: 05/16/2016 13:26 DIRECTOR HR COMMUNICATIONS by DEXTER SANTANA LPN Intake Chief Complaint : Interstim follow up ,voiding frequently Temperature Core : 36.2 DegC(Converted to: 97.2 DegF) (LOW) Peripheral Pulse Rate : 76 /min Heart Rhythm : Regular Systolic Blood Pressure : 160 mmHg (HI) Diastolic Blood Pressure : 52 mmHg NIBP Mean : 88 mmHg BP Location : Left upper extremity Blood Pressure Cuff Size : Regular DEXTER SANTANA LPN - 05/16/2016 13:26 DIRECTOR HR COMMUNICATIONS General Info Information Given By : Patient Preferred Communication Mode : Verbal Languages : Luxembourgish Is Patient Female and 13-50 no hysterectomy : No DEXTER SANTANA LPN - 05/16/2016 13:26 DIRECTOR HR COMMUNICATIONS Subjective Pain Symptoms : No DEXTER SANTANA LPN - 05/16/2016 13:26 DIRECTOR HR COMMUNICATIONS Dependent Habits Exposure to Tobacco Smoke : Care provider denies smoking in home, Other: Never Smoking Status : Never smoker Tobacco 2A : No Tobacco Use/Currently Using : No Tobacco Use/Last 30 Days : No Tobacco Use/Last 12 months : No DEXTER SANTANA LPN - 05/16/2016 13:26 DIRECTOR HR COMMUNICATIONS Caffeine Use Grid Caffeine Use : Current Type : Coffee Frequency : Daily DEXTER SANTANA LPN - 05/16/2016 13:26 DIRECTOR HR COMMUNICATIONS Recreational Drug Use Grid Drug Use : None DEXTER SANTANA LPN - 05/16/2016 13:26 DIRECTOR HR COMMUNICATIONS Source: [facility] POWERCHART Document Id: [id number] DIRECTOR HR COMMUNICATIONS!33 CTOR HR COMMUNICATIONS documented in this encounter Plan of Treatment Not on filedocumented as of this encounter Visit Diagnoses Not on filedocumented in this encounter Additional Health Concerns Assessment Noted Time PHQ-9 Depression Total Score: 1 02/03/2016 8:15 AM DIRECTOR HR COMMUNICATIONS documented as of this encounter
--- OUTSIDE RECORDS SUMMARY | 2022-02-28 01:44 | XMS_ITS | Encounter Summary ---
:1940 Author Organization [facility] Address [address] [place] [address] Care Team Providers Name Role Phone Unavailable Primary Care Provider Unavailable Encounter Details Date Type Department Care Team Description 05/04/2016 Hospital Encounter HX NO MAPPING Susy Groves M.D. [address] [place], [place] [phone] (Wo rk) Social History Tobacco Use Types [...] daily. desonide (for_DESOWEN) Apply 1 application 0 06/0 05/201205/04/2017 0.05 % cream topically 2 (two) times a day. documented as of this encounter Plan of Treatment Not on filedocumented as of this encounter Visit Diagnoses Not on filedocumented in this encounter Additional Health Concerns Assessment Noted Time PHQ-9 Depression Total Score: 1 02/03/2016 8:15 AM PROJECT DESIGNER documented as of this encounter
--- OUTSIDE RECORDS SUMMARY | 2022-02-28 01:44 | XMS_ITS | Encounter Summary ---
:[address] [facility] Address [address] [place] [address] Care Team Providers Name Role Phone Unavailable Primary Care Provider Unavailable Encounter Details Date Type Department Care Team Description 05/11/2016 Hospital Encounter HX NO MAPPING Susy Groves M.D. [address] [place], [place] [phone] (Wo rk) Social History [...] daily. desonide (for_DESOWEN) Apply 1 application 0 06/05/201205/04/2017 0.05 % cream topically 2 (two) times a day. predniSONE Take 1.5 tablets by 0 05/11/201604/19 (for_DELTASONE) 5 mg mouth daily. 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
--- OUTSIDE RECORDS SUMMARY | 2022-02-28 01:44 | XMS_ITS | Encounter Summary ---
:1940 Author Organization [facility] Address [address] [place] [address] Care Team Providers Name Role Phone Unavailable Primary Care Provider Unavailable Encounter Details Date Type Department Care Team Description 05/05/2016 Hospital Encounter HX [facility] Tory Groves M.D. [address] [place] [address] (Wo rk) Social History Tobacco Use Types Packs/Day Years Used Date Smoking Tobacco: Never Sex Assigned at Date Recorded Female 09/25/2017 1:20 PM CDT documented as of this encounter Last Filed Vital Signs Vital Sign Reading Time Taken Comments Blood Pressure 138/68 05/05/2016 9:52 AM BARREL ROLLER OPERATOR Pulse 84 05/05/2016 9:52 AM BARREL ROLLER OPERATOR Temperature - - Respiratory Rate - - [...] a day. documented as of this encounter Progress Notes Tory Groves M.D. - 05/05/2016 10:23 AM CST Free Text Note Chief complaint: Urinary retention She is 1 day status post placement of sacral nerve stimulator leads. The actual control device was not passed, as we do not yet have evidence of at least 50% improvement in her bladder emptying. When a postvoid residual was checked in the immediate postoperative period it was 600 mL. She has no complaints. She brings in a voiding diary indicating that she is voiding between 102 100 mL at anyone time. She tells me that she does not feel of the electrical impulses at all. The original settings were at 1.0. She is instructed to go to the bathroom, to lean forward and proceed with a coude maneuver. A bladder scan postvoid residual documents a residual of 444 mL, this in essence represent 25% improvement. The voltage on her device was increased to 1.7 at which time she was beginning to notice some perirectal fluttering. We have asked her to return to clinic tomorrow to check another postvoid residual, and if necessary readjust her electrical settings. Electronically Signed By: TORY GROVES MD On: 05/05/2016 10:27 AM Source: [facility] POWERCHART Document Id: [id number] EL ROLLER OPERATOR documented in this encounter Miscellaneous Notes Miscellaneous - Tory Groves M.D. - 05/05/2016 10:21 AM CST Ambulatory Patient Summary [place] [id number] [place] [phone] Visit Information Name: JACOB ANDINO [facility] Number: [id number] Current Date: 05/05/2016 10:21:52 Physicians Attending Provider: TORY GROVES MD Primary Care Provider: NEDA BECK MD JCAOB ANDINO has been given the following list [...] day cloNIDine (cloNIDine 0.3 mg oral tablet) 1 Tablet(s), Oral, once a day (at bedtime) desonide topical (desonide 0.05% topical cream) 1 ciara, Topical, two times a day furosemide (furosemide 40 mg oral tablet) 1 Tablet(s), Oral, once a day losartan (losartan 100 mg oral tablet) 1 Tablet(s), Oral, once a day multivitamin (multivitamin) Oral, once a day predniSONE (predniSONE 5 mg oral tablet) 2 Tablet(s), Oral, once a day spironolactone (spironolactone 50 mg oral tablet) 1 Tablet(s), Oral, once a day Stop Taking the Following Medications: Medication list as of 05-05-16 10:21 Attention: If you have any medications at home that are not on this list, DO NOT take them until youcontact your provider for clarification. Give a copy of your medication list to your primary care provider. Update your medication list any time medications or doses are changed and carry your medication list at all times in case of emergency. Electronically Signed By: TORY GROVES MD Signed On:05-MAY-2016 10:21:47 Your Allergies & Intolerances Substance Reaction Symptoms Category Comments sulfa drugs Drug oxyCODONE Drug Your Problem List Problem Status Onset Comments Combined hyperlipidemia Active 01/11/2010 Fatigue* Active 01/11/2010 HTN [Hypertension] Active 01/11/2010 Varicose veins of leg with edema Active 07/19/2010 DJD (OA) NOS Active Polymyalgia Rheumatica (PMR) Active Diabetes Mellitus Type 2 Active Retention Urinary NOS Active Your Upcoming Appointments Date Time Location Provider 05/09/2016 09:15 [facility] Verónica Escalante CNP 05/16/2016 13:15 [facility] Verónica Escalante CNP 05/24/2016 13:30 [facility] GENTILE, Neda Varela Attention: Contact your local Clinic if further [...] online form. Youll be asked for your [facility] number which you can find at the top of this document. Your Goals/Additional instructions: Source: [facility] POWERCHART Document Id: [id number] EL ROLLER OPERATOR Miscellaneous - Tory Groves M.D. - 05/05/2016 10:21 AM CST Ambulatory Discharge Medication List [facility] [address] [place] [phone] Visit Information Name: JACOB ANDINO [facility] Number: [id number] Current Date: 05/05/2016 10:21:51 Attending Provider: TORY GROVES MD Primary Care Provider: NEDA BECK MD JACOB ANDINO has been given the [...] day cloNIDine (cloNIDine 0.3 mg oral tablet) 1 Tablet(s), Oral, once a day (at bedtime) desonide topical (desonide 0.05% topical cream) 1 ciara, Topical, two times a day furosemide (furosemide 40 mg oral tablet) 1 Tablet(s), Oral, once a day losartan (losartan 100 mg oral tablet) 1 Tablet(s), Oral, once a day multivitamin (multivitamin) Oral, once a day predniSONE (predniSONE 5 mg oral tablet) 2 Tablet(s), Oral, once a day spironolactone (spironolactone 50 mg oral tablet) 1 Tablet(s), Oral, once a day Stop Taking the Following Medications: Medication list as of 05-05-16 10:21 Attention: If you have any medications at home that are not on this list, DO NOT take them until youcontact your provider for clarification. Give a copy of your medication list to your primary care provider. Update your medication list any time medications or doses are changed and carry your medication list at all times in case of emergency. Electronically Signed By: TORY GROVES MD Signed On:05-MAY-2016 10:21:47 Additional Information: Source: [facility] POWERCHART Document Id: [id number] EL ROLLER OPERATOR Miscellaneous - Shelby Agarwal L.P.N. - 05/05/2016 9:52 AM CST Adult Poultry Pinner Intake/History Adult Poultry Pinner Intake/History Entered On: 05/05/2016 9:55 BARREL ROLLER OPERATOR Performed On: 05/05/2016 9:52 BARREL ROLLER OPERATOR by SHELBY AGARWAL LPN Intake Chief Complaint : Per GZ, PVR Temperature Core : 36.4 DegC(Converted to: 97.5 DegF) (LOW) Peripheral Pulse Rate : 84 /min Systolic Blood Pressure : 138 mmHg Diastolic Blood Pressure : 68 mmHg NIBP Mean : 91 mmHg BP Location : Left upper extremity Blood Pressure Cuff Size : Large SHELBY AGARWAL LPN - 05/05/2016 9:52 BARREL ROLLER OPERATOR General Info Information Given By : Patient Preferred Communication Mode : Verbal Languages : Icelandic Is Patient Female and 13-50 no hysterectomy : No SHELBY AGARWAL LPN - 05/05/2016 9:52 BARREL ROLLER OPERATOR Subjective Pain Symptoms : SHELBY Posadas LPN - 05/05/2016 9:52 BARREL ROLLER OPERATOR Dependent Habits Exposure to Tobacco Smoke : Care provider denies smoking in home, Other: Never Smoking Status : Never smoker Tobacco 2A : No Tobacco Use/Currently Using : No Tobacco Use/Last 30 Days : No Tobacco Use/Last 12 months : No SHELBY AGARWAL LPN - 05/05/2016 9:52 BARREL ROLLER OPERATOR Caffeine Use Grid Caffeine Use : Current Type : Coffee Frequency : Daily SHELBY AGARWAL LPN - 05/05/2016 9:52 BARREL ROLLER OPERATOR Recreational Drug Use Grid Drug Use : None SHELBY GAARWAL LPN - 05/05/2016 9:52 BARREL ROLLER OPERATOR Source: [facility] Instilling Values Document Id: [id number] BARREL ROLLER OPERATOR!32 EL ROLLER OPERATOR documented in this encounter Plan of Treatment Not on filedocumented as of this encounter Visit Diagnoses Not on filedocumented in this encounter Additional Health Concerns Assessment Noted Time PHQ-9 Depression Total Score: 1 02/03/2016 8:15 AM BARREL ROLLER OPERATOR documented as of this encounter
--- OUTSIDE RECORDS SUMMARY | 2022-02-28 01:44 | XMS_ITS | Encounter Summary ---
:1940 Author Organization [facility] Address [address] [place] [address] Care Team Providers Name Role Phone Unavailable Primary Care Provider Unavailable Encounter Details Date Type Department Care Team Description 04/27/2016 Hospital Encounter HX NO MAPPING Sherif Hoffman M.D. [address] [place] [address] [phone] (Wo rk) Social History Tobacco Use [...] daily. desonide (for_DESOWEN) Apply 1 application 0 /05/201205/04/2017 0.05 % cream topically 2 (two) times a day. documented as of this encounter Miscellaneous Notes Miscellaneous - Conversion, Historical Provider Ser - 04/27/2016 11:59 PM MUSIC MINISTRIES DIRECTOR Coding Summary-Paper Based CODING DATE: 05/09/2016 FINAL [facility] STATUS: * Discharged to Home or Self Care PAYOR: Medicare Advantage ADMIT DX: REASON FOR VISIT DX: FINAL DX: PRINCIPAL: Z01.818 Encounter for other preprocedural examination SECONDARY: R33.9 Retention of urine, unspecified PROCEDURES DOCTOR NAME DATE NOTE: The code number assigned matches the documented diagnosis and / or procedure in the patient's chart. However, the narrative phrase printed from the coding software may appear abbreviated, or result in slightly different terminology. Coded By: MENDEZ PRIETO Date Saved: 05/09/2016 01:44 pm Source: [facility] POWERCHART Document Id: [id number] documented in this encounter Plan of Treatment Not on filedocumented as of this encounter Visit Diagnoses Not on filedocumented in this encounter Additional Health Concerns Assessment Noted Time PHQ-9 Depression Total Score: 1 02/03/2016 8:15 AM MUSIC MINISTRIES DIRECTOR documented as of this encounter
--- OUTSIDE RECORDS SUMMARY | 2022-02-28 01:44 | XMS_ITS | Encounter Summary ---
:1940 Author Organization [facility] Address [address] [place] [address] Care Team Providers Name Role Phone Unavailable Primary Care Provider Unavailable Encounter Details Date Type Department Care Team Description 07/25/2016 Hospital Encounter HX [facility] Javier Knowles, SHAP[employer] MACHINE [employer], C.N.P. [address] [id number] (Wo rk) Social History Tobacco Use Types Packs/Day Years Used Date Smoking Tobacco: Never Sex Assigned at Date Recorded Female 09/25/2017 1:20 PM CDT documented as of this encounter Last Filed Vital Signs Vital Sign Reading Time Taken Comments Blood Pressure 132/60 07/25/2016 2:05 PM CDT Pulse 80 07/25/2016 1:20 PM CDT Temperature - - Respiratory Rate 16 07/25/2016 1:20 PM CDT Oxygen Saturation - - Inhaled Oxygen Concentration - - Weight - - Height - - Body Mass Index - - documented in this encounter Medications at Time of Discharge Medication Sig Dispensed Refills Start Date End Date CALCIUM CARB/VIT Take 1 tablet by mouth 0 010 D3/MINERALS daily. (CALCIUM-VITAMIN D ORAL) MULTIVITAMIN ORAL Take 1 tablet by mouth 0 2009 daily. cloNIDine Take 0.5 tablets by 0 05/24/201604/19 (for_CATAPRES) 0.3 mg mouth at bedtime. tablet desonide (for_DESOWEN) Apply 1 application 0 06/0 05/201205/04/2017 0.05 % cream topically 2 (two) times a day. furosemide (for_LASIX) Take 0.5 tablets by 0 04/1 05/201604/19/2017 40 mg tablet mouth daily. losartan (for_COZAAR) Take 1 tablet by mouth 0 02/09/2017 100 mg tablet daily. predniSONE Take 1.5 tablets by 0 05/11/201604/19 (for_DELTASONE) 5 mg mouth daily. tablet documented as of this encounter Progress Notes Chadwick Knowles APRN, RReginaN. - 07/25/2016 5:21 PM CDT Clinic Full Note CHIEF COMPLAINT/REASON FOR VISIT Rck: interstim - pt states that she is doing well HISTORY OF PRESENT ILLNESS This is a pleasant 75-year-old female here today for a recheck of her InterStim. She has urinary retention for which we have been utilizing sacral nerve stimulator. She states that she can feel the stimulator and it is not painful. She was previously hospitalized for some knee pain and they wanted todo an MRI. She had her card with her from [facility] and an MRI was not performed. She states that most often she is double voiding where she will void 3 or 400 mL is. Approximately 15 minutes later shewill void another 200 mL or more. She is only having trouble with leakage if she has outside working. If she is bending and lifting it causes her to leak more. She is otherwise very happy with her results and is glad that things are going so well. She is currently on program 3 at 2.54 and she feels this under her rectum. MEDICATIONS aspirin 81 mg oral tablet, 1 tab(s), PO, Daily Calcium 600+D, PO, Daily cloNIDine 0.3 mg oral tablet, 0.3 mg, 1 tab(s), PO, Bedtime, 3 refills desonide 0.05% topical cream, 1 ciara, Topical, 2xDay, 1 refills furosemide 40 mg oral tablet, 40 mg, 1 tab(s), PO, Daily, 3 refills losartan 100 mg oral tablet, 100 mg, 1 tab(s), PO, Daily, 3 refills multivitamin, PO, Daily predniSONE 5 mg oral tablet, 10 mg, 2 tab(s), PO, Daily, 1 refills ALLERGIES oxyCODONE sulfa drugs PAST MEDICAL HISTORY Chronic Combined hyperlipidemia Diabetes Mellitus Type 2 DJD (OA) NOS Fatigue* HTN [Hypertension] Polymyalgia Rheumatica (PMR) Varicose veins of leg with edema Historical No historical problems PROCEDURES/SURGICAL HISTORY Colonoscopy (11/19/2007). SOCIAL HISTORY Date Time: 07/25/2016 13:20 Tobacco: Smoking Status: Never smoker Exposure: Care provider denies smoking in home, Other: Never Alcohol: Use: No Results Found Recreational Drugs: Use: None Type: No Results Found FAMILY HISTORY Mother:Positive: Rheumatoid arthritis Negative: Alzheimer's disease; Amyotrophic lateral sclerosis; Aneurysm; Asthma; Bipolar disorder; Bleeding disorder; Blindness AND/OR vision impairment level; CA - Breast cancer; CA - Cancer of colon;CA - Cancer of ovary; CA - Cancer of prostate; CA - Lung cancer; CA - Renal cancer; Cataract; Celiacdisease; Congestive heart failure; Coronary artery disease; Crohn's disease; Deep vein thrombosis; Degenerative joint disease; Dementia; Depression; Diabetes mellitus; Diabetic retinopathy; Ear infection; Eczema; Endometriosis; GERD - Gastro- esophageal reflux disease; Glaucoma; Gout; Hay fever; Hearing loss; Kathy's chorea; Hypertension; Hyperthyroidism; Hypothyroidism; IBS - Irritable bowel syndrome; Incontinence; Kidney disease; Kidney stone; Leukemia; Lupus erythematosus; Lymphoma; Macular disease; Myocardial infarction; Osteoporosis; Parkinson's disease; Peripheral vascular disease; Psoriasis; Rosacea; Schizophrenia; Seizure disorder; Skin cancer; Sleep apnea; Stroke; Ulcerative colitis; Vertigo; Vitamin B12 deficiency Father:Positive: Cataract Negative: Alzheimer's disease; Amyotrophic lateral sclerosis; Aneurysm; Asthma; Bipolar disorder; Bleeding disorder; Blindness AND/OR vision impairment level; CA - Breast cancer; CA - Cancer of colon;CA - Cancer of ovary; CA - Cancer of prostate; CA - Lung cancer; CA - Renal cancer; Celiac disease; Congestive heart failure; Coronary artery disease; Crohn's disease; Deep vein thrombosis; Degenerative joint disease; Dementia; Depression; Diabetes mellitus; Diabetic retinopathy; Ear infection; Eczema; Endometriosis; GERD - Gastro-esophageal reflux disease; Glaucoma; Gout; Hay fever; Hearing loss; Cyrus's chorea; Hypertension; Hyperthyroidism; Hypothyroidism; IBS - Irritable bowel syndrome; Incontinence; Kidney disease; Kidney stone; Leukemia; Lupus erythematosus; Lymphoma; Macular disease; Myocardial infarction; Osteoporosis; Parkinson's disease; Peripheral vascular disease; Psoriasis; Rheumatoid arthritis; Rosacea; Schizophrenia; Seizure disorder; Skin cancer; Sleep apnea; Stroke; Ulcerative colitis; Vertigo; Vitamin B12 deficiency Sister: Negative: Alzheimer's disease; Amyotrophic lateral sclerosis; Aneurysm; Asthma; Bipolar disorder; Bleeding disorder; Blindness AND/OR vision impairment level; CA - Breast cancer; CA - Cancer of colon;CA - Cancer of ovary; CA - Cancer of prostate; CA - Lung cancer; CA - Renal cancer; Cataract; Celiacdisease; Congestive heart failure; Coronary artery disease; Crohn's disease; Deep vein thrombosis; Degenerative joint disease; Dementia; Depression; Diabetes mellitus; Diabetic retinopathy; Ear infection; Eczema; Endometriosis; GERD - Gastro- esophageal reflux disease; Glaucoma; Gout; Hay fever; Hearing loss; Cyrus's chorea; Hypertension; Hyperthyroidism; Hypothyroidism; IBS - Irritable bowel syndrome; Incontinence; Kidney disease; Kidney stone; Leukemia; Lupus erythematosus; Lymphoma; Macular disease; Myocardial infarction; Osteoporosis; Parkinson's disease; Peripheral vascular disease; Psoriasis; Rheumatoid arthritis; Rosacea; Schizophrenia; Seizure disorder; Skin cancer; Sleep apnea; Stroke; Ulcerative colitis; Vertigo; Vitamin B12 deficiency Brother:Positive: Diabetes mellitus; Hypertension Negative: Alzheimer's disease; Amyotrophic lateral sclerosis; Aneurysm; Asthma; Bipolar disorder; Bleeding disorder; Blindness AND/OR vision impairment level; CA - Breast cancer; CA - Cancer of colon;CA - Cancer of ovary; CA - Cancer of prostate; CA - Lung cancer; CA - Renal cancer; Cataract; Celiacdisease; Congestive heart failure; Coronary artery disease; Crohn's disease; Deep vein thrombosis; Degenerative joint disease; Dementia; Depression; Diabetic retinopathy; Ear infection; Eczema; Endometriosis; GERD - Gastro-esophageal reflux disease; Glaucoma; Gout; Hay fever; Hearing loss; Kathy's chorea; Hyperthyroidism; Hypothyroidism; IBS - Irritable bowel syndrome; Incontinence; Kidney disease; Kidney stone; Leukemia; Lupus erythematosus; Lymphoma; Macular disease; Myocardial infarction; Osteoporosis; Parkinson's disease; Peripheral vascular disease; Psoriasis; Rheumatoid arthritis; Rosacea; Schizophrenia; Seizure disorder; Skin cancer; Sleep apnea; Stroke; Ulcerative colitis; Vertigo; Vitamin B12 deficiency SYSTEMS REVIEW Negative except for stated above VITAL SIGNS HR: 80 RR: 16 BP: 132 / 60 PHYSICAL EXAMINATION General: Well developed, well nourished, [...] Extremities: Warm, without edema or ulcerations. DIAGNOSTIC RESULTS Postvoid residual 554 mL IMPRESSION/REPORT/PLAN Retention Urinary NOS At this time she is doing quite well even though she has double voiding. With double voiding it seems that that is how she is able to empty her bladder. She does not have any concerns and would like to keep things as they are. She will contact us if she needs anything further otherwise we will see her again in 1 year for a recheck of her InterStim device. If she has any questions or concerns prior to that time she will let us know. Ordered: OV Est Pt Level 4 - 27659 - 25 min Orders: Return Visit Urology Electronically Signed By: CHADWICK KNOWLES APRN, RN On: 07/25/2016 05:26 PM Source: [facility] Document Id: [id number] documented in this encounter Miscellaneous Notes Miscellaneous - Chadwick Knowles APRN, R.N. - 07/25/2016 5:21 PM CDT Ambulatory Patient Summary [facility] [address] [place] [id number] Visit Information Name: VANESSA ANDINO [facility] Number: [id number] Current Date: 07/25/2016 17:21:06 Physicians Attending Provider: CHADWICK KNOWLES APRN, finish carpenter Provider: NEDA BECK MD VANESSA ANDINO KAMRAN has been given [...] tablet) 2 Tablet(s), Oral, once a day Stop Taking the Following Medications: Medication list as of 07-25-16 17:21 Attention: If you have any medications at home that are not on this list, DO NOT take them until youcontact your provider for clarification. Give a copy of your medication list to your primary care provider. Update your medication list any time medications or doses are changed and carry your medication list at all times in case of emergency. Electronically Signed By: Signed On: Your Allergies & Intolerances Substance Reaction Symptoms [...] Your Upcoming Appointments Date Time Location Provider 08/02/2016 13:15 [facility] GENTILE, Neda Varela Attention: Contact [...] if you dont have one. Go to [email or web address] and click on Create Your Account. Then, follow the directions to complete the online form. Youll be asked for your [facility] number which you can find at the top of this document. Your Goals/Additional instructions: Source: [facility] POWERCHART Document Id: [id number] Miscellaneous - Chadwick Knowles APRN RJeff. - 07/25/2016 5:21 PM CDT Ambulatory Discharge Medication List [address] [phone] Visit Information Name: VANESSA ANDINO [facility] Number: [id number] Current Date: 07/25/2016 17:21:05 Attending Provider: CHADWICK KNOWLES APRN finish carpenter Provider: NEDA BECK MD VANESSA ANDINOEN has been given the following list of [...] tablet) 2 Tablet(s), Oral, once a day Stop Taking the Following Medications: Medication list as of 07-25-16 17:21 Attention: If you have any medications at home that are not on this list, DO NOT take them until youcontact your provider for clarification. Give a copy of your medication list to your primary care provider. Update your medication list any time medications or doses are changed and carry your medication list at all times in case of emergency. Electronically Signed By: Signed On: Additional Information: [facility] Document Id: [id number] Miscellaneous - Dexter Santana L.PReginaNRegina - 07/25/2016 2:05 PM CDT Ambulatory Vitals Height Weight Ambulatory Vitals Height Weight Entered On: 07/25/2016 14:06 CDT Performed On: 07/25/2016 14:05 CDT by DEXTER SANTANA LPN Vitals/Ht/Wt Systolic Blood Pressure : 132 mmHg Diastolic Blood Pressure : 60 mmHg NIBP Mean : 84 mmHg BP Location : Left upper extremity Blood Pressure Cuff Size : Regular DEXTER SANTANA LPN - 07/25/2016 14:05 CDT [facility] Document Id: [id number] CDT!7 Miscellaneous - Jaja Still CReginaMEliane - 07/25/2016 1:20 PM CDT Adult Transition Program Manager Intake/History Adult Transition Program Manager Intake/History Entered On: 07/25/2016 13:24 CDT Performed On: 07/25/2016 13:20 CDT by JAJA STILL [facility] Intake Chief Complaint : Rck: interstim - pt states that she is doing well Peripheral Pulse Rate : 80 /min Respiratory Rate : 16 /min Heart Rhythm : Regular Systolic Blood Pressure : 140 mmHg Diastolic Blood Pressure : 60 mmHg NIBP Mean : 87 mmHg BP Location : Left upper extremity Blood Pressure Cuff Size : Large [facility] - 07/25/2016 13:20 CDT General Info Information Given By : Patient Preferred Communication Mode : Verbal Languages : Tamazight Is Patient Female and 13-50 no hysterectomy : No [facility] - 07/25/2016 13:20 CDT Subjective Pain Symptoms : No [facility] - 07/25/2016 13:20 CDT Dependent Habits Exposure to Tobacco Smoke : Care provider denies smoking in home, Other: Never Smoking Status : Never smoker Tobacco 2A : No Tobacco Use/Currently Using : No Tobacco Use/Last 30 Days : No Tobacco Use/Last 12 months : No [facility] - 07/25/2016 13:20 CDT Caffeine Use Grid Caffeine Use : Current Type : Coffee Frequency : Daily [facility] - 07/25/2016 13:20 CDT Recreational Drug Use Grid Drug Use : None [facility] - 07/25/2016 13:20 CDT [facility] Document Id: [id number] CDT!33 documented in this encounter Plan of Treatment Not on filedocumented as of this encounter Visit Diagnoses Not on filedocumented in this encounter Additional Health Concerns Assessment Noted Time PHQ-9 Depression Total Score: 1 02/03/2016 8:15 AM TRUCK LOADER documented as of this encounter
--- OUTSIDE RECORDS SUMMARY | 2022-02-28 01:44 | XMS_ITS | Encounter Summary ---
:1940 Author Organization [facility] Address [address] [place] [address] Care Team Providers Name Role Phone Unavailable Primary Care Provider Unavailable Encounter Details Date Type Department Care Team Description 08/02/2016 Hospital Encounter HX [facility] JAMESMED Regulo Hoffman M.D. [address] [place] [address] [phone] (Wo rk) Social History Tobacco Use Types Packs/Day Years Used Date Smoking Tobacco: Never Sex Assigned at Date Recorded Female 09/25/2017 1:20 PM CDT documented as of this encounter Last Filed Vital Signs Vital Sign Reading Time Taken Comments Blood Pressure 130/46 08/02/2016 12:54 PM CDT Pulse 64 08/02/2016 12:54 PM CDT Temperature - - Respiratory Rate 16 08/02/2016 12:54 PM CDT Oxygen Saturation - - Inhaled Oxygen Concentration - - Weight 73.7 kg (162 lb 7.7 oz) 08/02/2016 12:54 PM CDT Height 159 cm (5' 2.6) 08/02/2016 12:54 PM CDT Body Mass Index 29.15 08/02/2016 12:54 PM CDT documented in this encounter Medications [...] tablet desonide (for_DESOWEN) Apply 1 application 0 06/05/201205/04/2017 0.05 % cream topically 2 (two) times a day. furosemide (for_LASIX) Take 0.5 tablets by 0 06/2504/19/2017 40 mg tablet mouth daily. losartan (for_COZAAR) Take 1 tablet by mouth 0 02/09/2017 100 mg tablet daily. predniSONE Take 1.5 tablets by 0 05/11/201604/19 (for_DELTASONE) 5 mg mouth daily. tablet documented as of this encounter Progress Notes Neda Hoffman M.D. - 08/02/2016 12:36 PM CDT [id number] Recheck on polymyalgia rheumatica. The patient returns today to recheck on her PMR. She has other issues as well. In any event, her sedimentation rate was high at 71, but she has had a lot of unusual difficulties on the last visit. Her knee had swollen without reason and it got better within 2 days without reason. She had bladder stimulator placed and so on. So I do not know that, that sed rate reflects her PMR. Now, today she has no symptoms reflective of PMR. It would appear an opportune time for her to lower her prednisone and follow symptoms more than sed rate. She can go to 7-1/2 mg today. We will check a sed rate today and then I will schedule 1 in 6 weeks and we will see what that 1 is and make decisions then. I am inclined if it does not budge going up or down simply to taper her off over 2 to 3 months. Her diabetes is well controlled. She does not use any medications and her A1c is 6.7, so that is quite acceptable and if we can get off the prednisone it would be much improved. Her knee for whatever reason is staying quite normal and has not swollen again. If it does, I shouldtry to do an aspiration. It could be gout. The only thing I can think of that would have been consistent with her symptom complex is speed of onset and speed of resolution would be a crystal arthropathy. Her urinary retention is the big success. She is not having to see the urologist for a year and she feels very good because it is totally resolved and she does not do any cathing anymore. Finally, her blood pressure is under good control and we will leave the medicines there alone. MEDICATIONS Per EMR. ALLERGIES Per EMR. SYSTEMS REVIEW In others is negative. PAST MEDICAL/SURGICAL HISTORY Significant for: 1. Hypertension. 2. Mixed dyslipidemia. 3. Varicose veins of the lower extremity. 4. Chronic fatigue. 5. DJD. 6. PMR. 7. AODM, type 2 diabetes. 8. Urinary retention treated with an InterStim device. FAMILY HISTORY/SOCIAL HISTORY She is . She does not smoke or drink. She lives in [place] and is retired. PHYSICAL EXAMINATION VITAL SIGNS: The temperature is 36.6, heart rate 64, respiratory rate 16, blood pressure 130/70, weight is 73.1, BMI 29.15. HEENT: Eyes: Conjunctivae and lids normal. Pupils [...] or fourthsound, no significant murmur, no gallop. IMPRESSION/REPORT/PLAN Doing very well. Problems as follows: 1. Hypertension under excellent control. Continue current medications. 2. Polymyalgia rheumatica, sedimentation rate elevated but no symptoms at all. Reduce prednisone. Check sedimentation rate today and in 6 weeks. Reduce again if sedimentation rate unchanged. 3. Adult-onset diabetes mellitus. Excellent control with A1c at 6.7 and 6.4. No need for medicines at this point. Try to taper the prednisone. 4. Urinary retention, tremendous improvement with InterStim with great success. She has blood today,a sedimentation rate. She has a sedimentation rate, in 6 weeks and I will see her in 3 months. Neda Hoffman M.D./kimmie Electronically Signed By: NEDA HOFFMAN MD On: 08/03/2016 08:59 AM Source: [facility] MHSDOLBEYNONRADSYS Document Id: [id number] documented in this encounter Miscellaneous Notes Miscellaneous - Neda Hoffman M.D. - 08/02/2016 3:46 PM CDT Results Notification Document Contains Addenda Addendum by LEVI OLIVAS LPN on August 02, 2016 16:44:30 CDT Spoke with: ( _x ) Patient ( _ ) Parent ( _ ) Spouse ( _ ) Child ( ) Other: _ Call back telephone number: _ Reason for Call: -_ test results Chief Complaint: called with results _ Patient/Caller response to Education/Information given: ( x ) Verbalizes understanding of instructions ( _ ) Provide intervention per provider instruction ( _ ) Reinforce information already given ( _ ) Reinforce Plan of Care ( _ ) Provide preprinted information by mail (if applicable) Source/Reference used (if applicable): _ OK to leave message on voice mail? _ OK to send message via patient portal? _ Patient told to expect return call: ( _ ) today ( _ ) tomorrow ( _ ) next work day Callers preferred language for Healthcare discussion: _ Was an wide area network administrator used for this call? _ Other ( --x_ ) no further action needed From: NEDA HOFFMAN MD To: ANDRIA Hoffman Nurse; Sent: 08/02/2016 15:46:39 CDT ! Show up: 08/02/2016 15:46:39 CDT Subject: Results Notification Actions: Notify patient of results Reminder Comments: good Results: Date Result Name Ind Value Ref Range 08/02/2016 13:49 Sed Rate (H) 48 mm/hr (0 - 29) Source: [facility] POWERCHART Document Id: [id number] Electronically signed by [facility] Early Childhood Services Coordinator [id number] at 09/06/2016 4:40 AM CDT Miscellaneous - Neda Hoffman M.D. - 08/02/2016 1:39 PM CDT Ambulatory Patient Summary [address] [id number] Visit Information Name: JACOB ANDINO [facility] Number: [id number] Current Date: 08/02/2016 13:39:47 Physicians Attending Provider: NEDA HOFFMAN MD Primary [...] tablet) 1.5 Tablet(s), Oral, once a day This is a CHANGE Stop Taking the Following Medications: Medication list as of 08-02-16 13:39 Attention: If you have any medications at [...] Electronically Signed By: NEDA HOFFMAN MD Signed On:02-AUG-2016 13:37:09 Your Allergies & Intolerances Substance Reaction Symptoms [...] Your Upcoming Appointments Date Time Location Provider No Appointments found Attention: Contact your local Clinic if further [...] if you dont have one. Go to [email or web address] and click on Create Your Account. Then, follow the directions to complete the online form. Youll be asked for your [facility] number which you can find at the top of this document. Your Goals/Additional instructions: Source: [facility] POWERCHART Document Id: [id number] Miscellaneous - Neda Hoffman M.D. - 08/02/2016 1:39 PM CDT Ambulatory Discharge Medication List [facility] [address] [place] [phone] Visit Information Name: JACOB ANDINO [facility] Number: [id number] Current Date: 08/02/2016 13:39:45 Attending Provider: NEDA HOFFMAN MD Primary Care Provider: NDEA HOFFMAN MD JACOB ANDINO has been given [...] tablet) 1.5 Tablet(s), Oral, once a day This is a CHANGE Stop Taking the Following Medications: Medication list as of 08-02-16 13:39 Attention: If you have any medications at [...] Electronically Signed By: NEDA HOFFMAN MD Signed On:02-AUG-2016 13:37:09 Additional Information: Source: [facility] POWERCHART Document Id: [id number] Miscellaneous - Sven Loomis, L.P.N. - 08/02/2016 12:54 PM CDT Adult [employer] Intake/History Adult [employer] Intake/History Entered On: 08/02/2016 12:59 CDT Performed On: 08/02/2016 12:54 CDT by SVEN LOOMIS LPN Intake Chief Complaint : recheck- arthritis Temperature Core : 36.6 DegC(Converted to: 97.9 DegF) Peripheral Pulse Rate : 64 /min Respiratory Rate : 16 /min Systolic Blood Pressure : 130 mmHg Diastolic Blood Pressure : 46 mmHg (<LLOW) NIBP Mean : 74 mmHg BP Location : Left upper extremity Blood Pressure Cuff Size : Regular Height : 159 cm(Converted to: 5 ft 3 inch(es), 63 inch(es)) Actual Weight : 73.7 kg(Converted to: 162 lb 8 oz) Weight Source : Standing scale Dosing Weight Clinic : 73.7 kg Clinic BSA : 1.8 Body Mass Index : 29.15 kg/m2 SVEN LOOMIS LPN - 08/02/2016 12:54 CDT General Info Information Given By : Patient Languages : Maltese Is Patient Female and 13-50 no hysterectomy : No SVEN LOOMIS LPN - 08/02/2016 12:54 CDT Subjective Pain Symptoms : No SVEN LOOMIS LPN - 08/02/2016 12:54 CDT Dependent Habits Exposure to Tobacco Smoke : Care provider denies smoking in home, Other: Never Smoking Status : Never smoker Tobacco 2A : No Tobacco Use/Currently Using : No Tobacco Use/Last 30 Days : No Tobacco Use/Last 12 months : No SVEN LOOMIS LPN - 08/02/2016 12:54 CDT Caffeine Use Grid Caffeine Use : Current Type : Coffee Frequency : Daily SVEN LOOMIS LPN - 08/02/2016 12:54 CDT Recreational Drug Use Grid Drug Use : None SVEN LOOMIS LPN - 08/02/2016 12:54 CDT Source: [facility] POWERCHART Document Id: [id number]!38 documented in this encounter Plan of Treatment Not on filedocumented as of this encounter Procedures Procedure Name Priority Date/Time Associated Comments Diagnosis SEDIMENTATION RATE, B Routine 08/02/2016 1:49 PM Results for this CDT procedure are i n the results section. documented in this encounter Results (ABNORMAL) Sedimentation Rate (08/02/2016 1:49 PM CDT) [facility] gist Method Time Signature Sedimentation 48 (H) 0 - 29 POWERCHART Rate, B MM[facility] Specimen (Source) Anatomical Collection Method Collection Time Re ceived Time Location / / Volume Laterality Blood 08/02/2016 1:49 PM CDT Neda Hoffman M.D. LAB BLOOD ADD-ON Performing Organization Address City/State/ZIP Code Phon e Number POWERCHART documented in this encounter Visit Diagnoses Not on filedocumented in this encounter Additional Health Concerns Assessment Noted Time PHQ-9 Depression Total Score: 1 02/03/2016 8:15 AM WATCH ENGINE OPERATOR documented as of this encounter
--- OUTSIDE RECORDS SUMMARY | 2022-02-28 01:44 | XMS_ITS | Encounter Summary ---
:1940 Author Organization [facility] Address [address] [place] [address] Care Team Providers Name Role Phone Unavailable Primary Care Provider Unavailable Encounter Details Date Type Department Care Team Description 05/04/2016 Hospital Encounter HX NO MAPPING Susy Groves M.D. [address] [place], [place] [phone] (Wo rk) Social History [...] Name Priority Date/Time Associated Diagnosis Comme nts FL FLUORO LESS THAN Routine 05/04/2016 11:09 AM R esults for this 1 HOUR LITIGATION ASSISTANT procedure are i n the results section. documented in this encounter Results FL Fluoro Less Than 1 Hour (05/04/2016 11:09 AM LITIGATION ASSISTANT) Anatomical Region Laterality Modality Radiographic Imaging Specimen (Source) Anatomical Collection Method Collection Time Re ceived Time Location / / Volume Laterality 05/04/2016 11:09 AM LITIGATION ASSISTANT Addenda Addendum by Provider, Estella Kang 05/04/2016 11:09 AM LITIGATION ASSISTANT RAD^^^OW XR Gisselle less than 1 hour 05/04/2016 11:09:04 Impressions 05/04/2016 10:28 AM LITIGATION ASSISTANT Intraoperative fluoroscopic guidance purposes. Narrative 05/04/2016 10:28 AM LITIGATION ASSISTANT EXAM: ??XR Gisselle less than 1 hour. DEMOGRAPHICS: ??75 years Female. INDICATION: ??stage 1 interstim. COMPARISON: ??None available FINDINGS: ??23.8 seconds of fluoroscopy time was utilized. Selective static fluoroscopic images obt ained during sacral stimulator wire placement. Please refer to operative note for discu ssion of dynamic intraprocedural findings. Procedure Note Johnathan Walsh M.D. / ProviderJase M.D. - 09/12/2016 EXAM: XR Gisselle less than 1 hour. DEMOGRAPHICS: 75 years Female. INDICATION: stage 1 interstim. COMPARISON: None available FINDINGS: 23.8 seconds of fluoroscopy ti me was utilized. Selective static fluoroscopic images obt ained during sacral stimulator wire placement. Please refer to operative note for discu ssion of dynamic intraprocedural findings. IMPRESSION: Intraoperative fluoroscopic guidance purposes. Ericka FernandoTRegina(R)(CT), R.T.(R) IMG FLUOROSCOPY P ROCEDURES documented in this encounter Visit Diagnoses Not on filedocumented in this encounter Additional Health Concerns Assessment Noted Time PHQ-9 Depression Total Score: 1 02/03/2016 8:15 AM LITIGATION ASSISTANT documented as of this encounter
--- OUTSIDE RECORDS SUMMARY | 2022-02-28 01:44 | XMS_ITS | Encounter Summary ---
:1940 Author Organization [facility] Address [address] [place] [address] Care Team Providers Name Role Phone Unavailable Primary Care Provider Unavailable Encounter Details Date Type Department Care Team Description 04/27/2016 Hospital Encounter HX [facility] INTERNMED Regulo Hoffman M.D. [address] [place] [address] 021 (Wo rk) Social History Tobacco Use Types Packs/Day Years Used Date Smoking Tobacco: Never Sex Assigned at Date Recorded Female 09/25/2017 1:20 PM CDT documented as of this encounter Last Filed Vital Signs Vital Sign Reading Time Taken Comments Blood Pressure 138/72 04/27/2016 12:50 PM RECLAMATION FURNACE OPERATOR Pulse 80 04/27/2016 12:50 PM RECLAMATION FURNACE OPERATOR Temperature - - Respiratory Rate 16 04/27/2016 12:50 PM RECLAMATION FURNACE OPERATOR Oxygen Saturation - - Inhaled Oxygen Concentration - - Weight 72.5 kg (159 lb 13.3 oz) 04/27/2016 12:50 PM RECLAMATION FURNACE OPERATOR Height 159 cm (5' 2.6) 04/27/2016 12:50 PM RECLAMATION FURNACE OPERATOR Body Mass Index 28.68 04/27/2016 12:50 PM RECLAMATION FURNACE OPERATOR documented in this encounter Medications at Time of Discharge Medication Sig Dispensed Refills Start Date End Date CALCIUM CARB/VIT Take 1 tablet by mouth 0 010 D3/MINERALS daily. (CALCIUM-VITAMIN D ORAL) MULTIVITAMIN ORAL Take 1 tablet by mouth 0 2009 daily. desonide (for_DESOWEN) Apply 1 application 0 06/0 05/201205/04/2017 0.05 % cream topically 2 (two) times a day. documented as of this encounter H&P Notes Neda Hoffman M.D. - 04/27/2016 12:34 PM CST [id number] She is having an InterStim device placed further in at the [facility] with Dr. Groves next week. Vanessa had the office placement of an InterStim device and the leads were felt to be not in far enough so when she did her external battery and so on it did not seem to work, so they re-evaluatedand felt the leads were not in far enough to properly stimulate the bladder and she is scheduled fora surgical procedure to implant them further. She is a little bit depressed because there then has to be another procedure to place a permanent battery in the device if the temporary external leads andbattery and remote device show that she does empty her balder well. So it is kind of an involved process but if this could all be done within one month then the preop today would cover it all. MEDICATIONS 1. Prednisone 10 mg every morning. 2. Furosemide 40 mg a day. 3. Losartan 100 mg a day. 4. Spironolactone 50 mg a day. 5. Clonidine 0.3 mg at bedtime. 6. Calcium with D 1 times daily. 7. Multivitamin once daily. 8. Aspirin 81 mg daily, stopped today. ALLERGIES She gets a rash with sulfa and vomiting with oxycodone. SPECIFIC PRESURGICAL REVIEW OF SYSTEMS She has dystonia to oxycodone and rash to sulfa as aforementioned. She has no history of bleeding complications or bleeding diathesis. She is on chronic corticosteroid for polymyalgia rheumatica and her dose is currently 10 mg a day. she is not diabetic. Never had DVT or pulmonary emboli. She does nothave glaucoma or use eye drops. No familial history of untoward reaction to anesthesia and she has never had any adverse reactions to anesthesia. She richardson shave hypertension which is well controlled. She does not have angina, orthopnea, PND or palpation. She has no pulmonary symptomatology and no infect edna symptomatology. FAMILY HISTORY/SOCIAL HISTORY She is . She does not smoke. She has no familial history of untoward reaction anesthesia. Shedoes not drink alcohol. VITAL SIGNS Temperature 36.6, heart 80, respiratory rat 16, blood pressure 135/72, O2 sat 98% room air, BMI 28.68. No tobacco. Sleep apnea score 4.0. PHYSICAL EXAMINATION HEENT: Eyes: Conjunctivae and lids normal. Pupils equal, round, reactive to light and accommodation.Extraocular movements normal. Sclerae nonicteric. Ophthalmologic exam grossly normal. ENT: Tympanic membranes look okay bilaterally. Nares without erythema or congestion. Mouth without erythema or exudate, no leuko or erythroplakia. [place] teeth top and bottom. She richardson snot open her mouth that widely. NECK: Flexes fully, extends and flexes. Carotid upstrokes are brisk and without bruits. LUNGS: Clear to auscultation. Percussion and respiratory rate and effort are normal CARDIAC: CVP is normal. The heart tones are in sinus rhythm with no significant murmur, gallop, rub. ABDOMEN: Soft, nondistended. No organomegaly, No focal mass or tenderness. EXTREMITIES: Warm, dry, noncyanotic, no clubbing or peripheral edema. NEUROLOGICAL: Neurologically she is alert, oriented and grossly nonfocal. IMPRESSION/REPORT/PLAN Patient with formidable urinary retention having an InterStim device placed deeper. Instructions to the patient today: 1. Call promptly for any intercurrent medical illness particularly an illness with a fever. 2. Patient is instructed to stop her aspirin today. She will otherwise take her medicines up though the day before surgery. Now the morning of surgery after midnight she should be nothing by mouth but will take prednisone with just the water to swallow it. 3. Any preoperative defects found on laboratory testing will be corrected prior to surgery. She willtoday have an UA with reflex to culture, a BMP, a CBC and an electrocardiogram. 4. This is a same-day procedure so she should listen very carefully to the follow up directions of the surgeon and postoperative directions and follow them to the letter. eNda Hoffman M.D./kimmie Electronically Signed By: NEDA HOFFMAN MD On: 04/27/2016 02:48 PM Source: [facility] MHSDOLBEYNONRADSYS Document Id: [id number] AMATION FURNACE OPERATOR documented in this encounter Nursing Notes Levi Maloney L.P.N. - 04/28/2016 9:30 AM CST pre-op pre-op faxed to [facility] Electronically Signed By: LEVI MALONEY LPN On: 04/28/2016 09:31 AM Source: [facility] Acclaimd Document Id: [id number] AMATION FURNACE OPERATOR documented in this encounter Miscellaneous Notes Miscellaneous - Neda Hoffman M.D. - 04/29/2016 1:04 PM CST Results Notification From: NEDA HOFFMAN MD To: ANDRIA Hoffman Nurse; Sent: 04/29/2016 13:04:57 RECLAMATION FURNACE OPERATOR ! Show up: 04/29/2016 13:04:57 RECLAMATION FURNACE OPERATOR Subject: Results Notification Actions: Notify patient of results Reminder Comments: Urology will treat her Results: Date Result Type Ind Result Name MBO POS Culture Urine Source: [facility] Acclaimd Document Id: [id number] Miscellaneous - Neda Hoffman M.D. - 04/28/2016 7:21 AM CST Results Notification Document Contains Addenda Addendum by LEVI MALONEY LPN on April 28, 2016 08:58:50 RECLAMATION FURNACE OPERATOR Spoke with: ( x_ ) Patient ( _ ) Parent ( _ ) Spouse ( _ ) Child ( ) Other: _ Call back telephone number: _ Reason for Call:test results Chief Complaint: called with results _ [...] language for Healthcare discussion: _ Was an associate product manager used for this call? _ Other ( --x_ ) no further action needed Addendum by BRENDON LEVI LALITHA GERARDO on April 28, 2016 08:40:33 RECLAMATION FURNACE OPERATOR message left for patient to return call From: NEDA HOFFMAN MD To: ANDRIA Hoffman Nurse; Sent: 04/28/2016 07:21:13 RECLAMATION FURNACE OPERATOR ! Show up: 04/28/2016 07:21:13 RECLAMATION FURNACE OPERATOR Subject: Results Notification Actions: Notify patient of results Reminder Comments: ok Results: Date Result Name Ind Value Ref Range 04/27/2016 13:46 Sodium Lvl 141 mmol/L (135 - 145) 04/27/2016 13:46 Potassium Lvl 4.4 mmol/L (3.6 - 5.2) 04/27/2016 13:46 Chloride 101 mmol/L (98 - 107) 04/27/2016 13:46 CO2 24 mmol/L (22 - 29) 04/27/2016 13:46 AGAP (H) 16 mmol/L (7 - 15) 04/27/2016 13:46 Glucose Lvl 119 mg/dL (70 - 139) 04/27/2016 13:46 Creatinine 0.98 mg/dL (0.60 - 1.10) 04/27/2016 13:46 EGFR (MDRD) (L) 55 mL/min/1.73m2 (>=60 - ) 04/27/2016 13:46 EGFR (MDRD) >60 mL/min/1.73m2 (>=60 - ) 04/27/2016 13:46 BUN 17 mg/dL (6 - 21) 04/27/2016 13:46 Calcium Lvl 9.6 mg/dL (8.8 - 10.3) Source: [facility] POWERCHART Document Id: [id number] Electronically signed by Conversion, [facility] Ball Thread Machine Tender [id number] at 09/05/2016 11:36 PM CDT Miscellaneous - Neda Hoffman M.D. - 04/27/2016 2:11 PM CST Results Notification Document Contains Addenda Addendum by NEDA HOFFMAN MD on April 28, 2016 08:57:58 RECLAMATION FURNACE OPERATOR From: NEDA HOFFMAN MD To: Neda Hoffman Nurse; Sent: 04/28/2016 08:57:58 RECLAMATION FURNACE OPERATOR Show up: 04/28/2016 08:57:00 RECLAMATION FURNACE OPERATOR Subject: RE: Results Notification ok Addendum by LEVI MALONEY LPN on April 28, 2016 08:57:08 RECLAMATION FURNACE OPERATOR From: LEVI MALONEY LPN ( Neda Hoffman Nurse) To: NEDA HOFFMAN MD; Sent: 04/28/2016 08:57:07 RECLAMATION FURNACE OPERATOR Show up: 04/28/2016 08:56:00 RECLAMATION FURNACE OPERATOR Subject: RE: Results Notification yes they are From: NEDA HOFFMAN MD To: Neda Hoffman Nurse; Sent: 04/27/2016 14:11:16 RECLAMATION FURNACE OPERATOR ! Show up: 04/27/2016 14:11:16 RECLAMATION FURNACE OPERATOR Subject: Results Notification Actions: Notify patient of results Reminder Comments: ask her if the uro are going to be putting her on antibiotic? Results: Date Result Name Ind Value Ref Range 04/27/2016 14:05 UA Color Yellow (Colorless - ) 04/27/2016 14:05 UA Clarity (*) Cloudy (Clear - ) 04/27/2016 14:05 UA Spec Grav 1.015 04/27/2016 14:05 UA pH 7.0 (<5.0 - ) 04/27/2016 14:05 UA Protein Negative mg/dL (Negative - ) 04/27/2016 14:05 UA Glucose Negative mg/dL (Negative - ) 04/27/2016 14:05 UA Ketones Negative mg/dL (Negative - ) 04/27/2016 14:05 UA Bili Negative (Negative - ) 04/27/2016 14:05 UA Urobilinogen 0.2 mg/dL (0.2 - ) 04/27/2016 14:05 UA Blood (*) Small (Negative - ) 04/27/2016 14:05 UA Nitrite Negative (Negative - ) 04/27/2016 14:05 UA Leuk Est (*) Large (Negative - ) 04/27/2016 14:05 UR WBC (*) 31-40 /HPF (None Seen - ) 04/27/2016 14:05 UR RBC (*) 11-20 /HPF (None Seen - ) 04/27/2016 14:05 UR % Dysmorphic RBC <=25 % (<=25 - ) 04/27/2016 14:05 UR Squamous Epi Cells (*) 4-10 /HPF (None Seen - ) 04/27/2016 14:05 UR Bacteria (*) Present (None Seen - ) Source: [facility] Acclaimd Document Id: [id number] Electronically signed by Conversion, [facility] Ball Thread Machine Tender [id number] at 09/05/2016 11:36 PM CDT Miscellaneous - Neda Hoffman M.D. - 04/27/2016 2:07 PM CST Results Notification Document Contains Addenda Addendum by LEVI MALONEY LPN on April 28, 2016 08:59:43 RECLAMATION FURNACE OPERATOR Spoke with: ( _x ) Patient ( _ ) Parent ( _ ) Spouse ( _ ) Child ( ) Other: _ Call back telephone number: _ Reason for Call: -_ test results Chief Complaint: called with results _ Patient/Caller response to Education/Information given: ( _ x) Verbalizes understanding of test results ( _ ) Provide intervention per provider [...] language for Healthcare discussion: _ Was an associate product manager used for this call? _ Other ( --_x ) no further action needed From: NEDA HOFFMAN MD To: ANDRIA Hoffman Nurse; Sent: 04/27/2016 14:07:08 RECLAMATION FURNACE OPERATOR ! Show up: 04/27/2016 14:07:08 RECLAMATION FURNACE OPERATOR Subject: Results Notification Actions: Notify patient of results Reminder Comments: ok Results: Date Result Type Result Name 04/27/2016 13:46 Document - mdoc Electrocardiogram Source: [facility] POWERCHART Document Id: [id number] Electronically signed by Conversion, [facility] Ball Thread Machine Tender [id number] at 09/05/2016 11:36 PM CDT Miscellaneous - Neda Hoffman M.D. - 04/27/2016 2:06 PM CST Results Notification Document Contains Addenda Addendum by LEVI MALONEY LPN on April 28, 2016 09:01:08 RECLAMATION FURNACE OPERATOR Spoke with: ( _x ) Patient ( [...] language for Healthcare discussion: _ Was an associate product manager used for this call? _ Other ( --x_ ) no further action needed From: NEDA HOFFMAN MD To: ANDRIA Hoffman Nurse; Sent: 04/27/2016 14:06:53 RECLAMATION FURNACE OPERATOR ! Show up: 04/27/2016 14:06:53 RECLAMATION FURNACE OPERATOR Subject: Results Notification Actions: Notify patient of results Reminder Comments: ok Results: Date Result Name Ind Value Ref Range 04/27/2016 13:46 Hgb 12.5 g/dL (12.0 - 15.5) 04/27/2016 13:46 Hct 39.1 % (34.9 - 44.5) 04/27/2016 13:46 WBC (H) 11.5 x10(9)/L (3.4 - 10.5) 04/27/2016 13:46 RBC 4.44 x10(12)/L (3.90 - 5.03) 04/27/2016 13:46 MCV 88.1 fL (82.0 - 98.0) 04/27/2016 13:46 RDW 14.7 % (11.9 - 15.5) 04/27/2016 13:46 Platelet 438 x10(9)/L (150 - 450) 04/27/2016 13:46 Neutro Absolute (H) 9.63 10(9)/L (1.70 - 7.00) 04/27/2016 13:46 Lymph Absolute 1.17 x10(9)/L (0.90 - 2.90) 04/27/2016 13:46 [place] Absolute 0.59 x10(9)/L (0.30 - 0.90) 04/27/2016 13:46 Eos Absolute (L) 0.02 x10(9)/L (0.05 - 0.50) 04/27/2016 13:46 Baso Absolute 0.06 x10(9)/L (0.00 - 0.30) Source: [facility] POWERCHART Document Id: [id number] Electronically signed by Pj, [facility] Ball Thread Machine Tender [id number] at 09/05/2016 11:36 PM CDT Miscellaneous - Neda Hoffman M.D. - 04/27/2016 12:55 PM CST Ambulatory Patient Summary [address] [id number] Visit Information Name: KELLEEVANESSA DE LEON KAMRAN [facility] Number: [id number] Current Date: 04/27/2016 12:55:08 Physicians Attending Provider: NEDA HOFFMAN MD Primary Care Provider: NEDA HOFFMAN MD BHARATH VANESSA ANDREW has been given the following list [...] the Following Medications: Medication list as of 04-27-16 12:55 Attention: If you have any medications at [...] [facility] Verónica Escalante CNP 05/16/2016 13:15 [facility] Verónica Escalante CNP Attention: Contact your local Clinic if further [...] if you dont have one. Go to [email or web address] and click on Create Your Account. Then, follow the directions to complete the online form. Youll be asked for your [facility] number which you can find at the top of this document. Your Goals/Additional instructions: Source: [facility] POWERCHART Document Id: [id number] AMATION FURNACE OPERATOR Miscellaneous - Neda Hoffman M.D. - 04/27/2016 12:55 PM CST Ambulatory Discharge Medication List [address] [id number] Visit Information Name: KELLEEVANESSA DE LEON KAMRAN [facility] Number: [id number] Current Date: 04/27/2016 12:55:07 Attending Provider: NEDA HOFFMAN MD Primary Care [...] the Following Medications: Medication list as of 04-27-16 12:55 Attention: If you have any medications at [...] Signed By: Signed On: Additional Information: Source: [facility] Acclaimd Document Id: [id number] AMATION FURNACE OPERATOR Levi Cheng L.PReginaNRegina - 04/27/2016 12:55 PM CST Obstructive Sleep Apnea Obstructive Sleep Apnea Entered On: 04/27/2016 12:56 RECLAMATION FURNACE OPERATOR Performed On: 04/27/2016 12:55 RECLAMATION FURNACE OPERATOR by LEVI MALONEY LPN TIEN Screening Known Obstructive Sleep Apnea : No - NOT diagnosed with TIEN TIEN Score : No qualifying data available. TIEN Results : No qualifying data available. LEVI MALONEY LPN - 04/27/2016 12:55 RECLAMATION FURNACE OPERATOR TIEN Assessment Do you have high blood pressure or have you been told to take medication for high blood pressure? : Yes Frequency of Snoring HTN : I don't know Frequency of Gasping, Choking, Snorting HTN : Never Total Number of Historical Features HTN : 0 Neck Circumference - TIEN - HTN : 36/37 Total Sleep Apnea Clinical Score HTN Calc : 4 LEVI MALONEY LPN - 04/27/2016 12:55 RECLAMATION FURNACE OPERATOR Source: [facility] Clicks2CustomersCHART Document Id: [id number] RECLAMATION FURNACE OPERATOR!12 AMATION FURNACE OPERATOR Levi Cheng L.PReginaNRegina - 04/27/2016 12:50 PM CST Adult Supervisor [facility] Intake/History Adult Supervisor [facility] Intake/History Entered On: 04/27/2016 12:55 RECLAMATION FURNACE OPERATOR Performed On: 04/27/2016 12:50 RECLAMATION FURNACE OPERATOR by LEVI MALONEY LPN Intake Chief Complaint : pre-op Dr Groves 05/04/16 Temperature Core : 36.6 DegC(Converted to: 97.9 DegF) Peripheral Pulse Rate : 80 /min Respiratory Rate : 16 /min Heart Rhythm : Regular Systolic Blood Pressure : 138 mmHg Diastolic Blood Pressure : 72 mmHg NIBP Mean : 94 mmHg BP Location : Left upper extremity Blood Pressure Cuff Size : Regular SpO2 : 98 % Oxygen Therapy : Room air Height : 159 cm(Converted to: 5 ft 3 inch(es), 63 inch(es)) Actual Weight : 72.50 kg(Converted to: 159 lb 13 oz) Weight Source : Standing scale Dosing Weight Clinic : 72.5 kg Clinic BSA : 1.79 Body Mass Index : 28.68 kg/m2 LEVI MALONEY LPN - 04/27/2016 12:50 RECLAMATION FURNACE OPERATOR General Info Information Given By : Patient Languages : Uzbek Is Patient Female and 13-50 no hysterectomy : No LEVI MALONEY LPN - 04/27/2016 12:50 RECLAMATION FURNACE OPERATOR Subjective Pain Symptoms : No LEVI MALONEY LPN - 04/27/2016 12:50 RECLAMATION FURNACE OPERATOR Dependent Habits Exposure to Tobacco Smoke : Care provider denies smoking in home, Other: Never Smoking Status : Never smoker Tobacco 2A : No Tobacco Use/Currently Using : No Tobacco Use/Last 30 Days : No Tobacco Use/Last 12 months : No LEVI MALONEY LPN - 04/27/2016 12:50 RECLAMATION FURNACE OPERATOR Caffeine Use Grid Caffeine Use : Current Type : Coffee Frequency : Daily LEVI MALONEY LPN - 04/27/2016 12:50 RECLAMATION FURNACE OPERATOR Recreational Drug Use Grid Drug Use : None LEVI MALONEY LPN 04/27/2016 12:50 RECLAMATION FURNACE OPERATOR Source: [facility] POWERCHART Document Id: [id number] RECLAMATION FURNACE OPERATOR!41 AMATION FURNACE OPERATOR documented in this encounter Plan of Treatment Not on filedocumented as of this encounter Procedures Procedure Name Priority Date/Time Associated Comments Diagnosis BACTERIAL CULTURE, Routine 04/27/2016 2:06 PM Res ults for this AEROBIC, URINE RECLAMATION FURNACE OPERATOR procedure are in the results section. HXUR % DYSMORPHIC Routine 04/27/2016 2:05 PM Resu lts for this RBC RECLAMATION FURNACE OPERATOR procedure are i n the results section. URINALYSIS, Routine 04/27/2016 2:05 PM Results f or this MIDSTREAM, WITH RECLAMATION FURNACE OPERATOR procedure ar e in CULTURE IF INDICATED the res ults section. AUTOMATED Routine 04/27/2016 1:46 PM Results f or this DIFFERENTIAL, B RECLAMATION FURNACE OPERATOR procedure ar e in the results section. CBC WITH Routine 04/27/2016 1:46 PM Results f or this DIFFERENTIAL, B RECLAMATION FURNACE OPERATOR procedure ar e in the results section. BASIC METABOLIC Routine 04/27/2016 1:46 PM Result s for this PANEL, S/P RECLAMATION FURNACE OPERATOR procedure are i n the results section. ECG Routine 04/27/2016 1:27 PM Results f or this RECLAMATION FURNACE OPERATOR procedure are i n the results section. documented in this encounter Results (ABNORMAL) Bacterial Culture, Aerobic, Urine (04/27/2016 2:06 PM RECLAMATION FURNACE OPERATOR) Analysis Performed At Patho logist Time Signature Bacterial EC 4 POWERCHART Culture, (POSITIVE) Aerobic, Urine HXPre EC POWERCHART Comment: 10,000 - 50,000 cfu/mL Escheric hia coli with Mixed miriam (multiple species present) HXFinal EC POWERCHART Comment: 10,000 - 50,000 cfu/mL Escheric hia coli with Mixed miriam (multiple species present) Specimen Anatomical Collection Method Collection Time Receive d Time (Source) Location / / Volume Laterality Urine, First 04/27/2016 2:06 PM 7 2:06 Voided RECLAMATION FURNACE OPERATOR PM RECLAMATION FURNACE OPERATOR Organism Antibiotic Method Susceptibility Escherichia coli Ampicillin SUSCEPTIBILITY, REJI 4: Suscepti ble (MCG/ML) Escherichia coli Ampicillin + Sulbactam SUSCEPTIBILITY, REJI <=2: Susceptible (MCG/ML) Escherichia coli Aztreonam SUSCEPTIBILITY, REJI <=1: Suscep tible (MCG/ML) Escherichia coli Cefazolin SUSCEPTIBILITY, REJI <=4: Suscep tible (MCG/ML) Escherichia coli Cefepime SUSCEPTIBILITY, REJI <=1: Suscep tible (MCG/ML) Escherichia coli Ceftazidime SUSCEPTIBILITY, REJI <=1: Suscep tible (MCG/ML) Escherichia coli Ceftriaxone SUSCEPTIBILITY, REJI <=1: Suscep tible (MCG/ML) Escherichia coli ESBL Confirmation Test SUSCEPTIBILITY, REJI Neg: Negative (MCG/ML) Escherichia coli Ertapenem SUSCEPTIBILITY, REJI <=0.5: Susc eptible (MCG/ML) Escherichia coli Gentamicin SUSCEPTIBILITY, REJI <=1: Suscep tible (MCG/ML) Escherichia coli Levofloxacin SUSCEPTIBILITY, REJI <=0.12: Rica ceptible (MCG/ML) Escherichia coli Meropenem SUSCEPTIBILITY, REJI <=0.25: Rica ceptible (MCG/ML) Escherichia coli Nitrofurantoin SUSCEPTIBILITY, REJI <=16: Susce ptible (MCG/ML) Escherichia coli Piperacillin + Tazobactam SUSCEPTIBILITY, REJI < =4: Susceptible (MCG/ML) Escherichia coli Trimethoprim + SUSCEPTIBILITY, REJI <=20: Susce ptible Sulfamethoxazole (MCG/ML) Escherichia coli Tobramycin SUSCEPTIBILITY, REJI <=1: Suscep tible (MCG/ML) Neda Hoffman M.D. LAB MICROBIOLOGY - GENERAL O RDERABLES Performing Organization Address City/State/ZIP Code Phon e Number POWERCHART HXUR % DYSMORPHIC RBC (04/27/2016 2:05 PM RECLAMATION FURNACE OPERATOR) athologist Signature Dysmorphic RBC <=25 <=25 POWERCHART Specimen Anatomical Collection Method Collection Time Receive d Time (Source) Location / / Volume Laterality Urine, First 04/27/2016 2:05 PM 7 2:05 Voided RECLAMATION FURNACE OPERATOR PM RECLAMATION FURNACE OPERATOR Neda Hoffman M.D. LAB HISTORICAL ORDERS Performing Organization Address City/State/ZIP Code Phon e Number POWERCHART (ABNORMAL) Urinalysis, Midstream, with culture if indicated (04/27/2016 2:05 PM RECLAMATION FURNACE OPERATOR) [facility] gist Method Time Signature Clarity Cloudy (A) Clear POWERCHART HXUr Color Yellow Colorless POWERCHART Specific 1.015 POWERCHART [place], POCT, U Comment: Reference Range Specific [place]: 1.000-1.035 pH, POCT, Urine 7.0 <5.0 POWERCHART Comment: Reference Range pH: 5.0-8.0 Protein, Ur, Dip Negative Negative MGDL POWERCHAR T Glucose Negative Negative MGDL POWERCHART Ketones, QL(U) Negative Negative MGDL POWERCHART HXBILIRUBIN Negative Negative POWERCHART HXBLOOD Small (A) Negative POWERCHART Leukocyte Esterase Large (A) Negative POWERCHART HXNITRITE Negative Negative POWERCHART Urobilinogen 0.2 0.2 MGDL POWERCHART Comment: Reference Range Urobilinogen: 0.2-1.0 mg/dL HXUR WBC. 31-40 (A) None Seen HPF POWERCHART HXUR RBC. 11-20 (A) None Seen HPF POWERCHART Squamous Epithelial 4-10 (A) None Seen HPF POWERC CIFUENTES HXUR Bacteria, Present (A) None Seen POWERCHART Specimen (Source) Anatomical Collection Method Collection Time Re ceived Time Location / / Volume Laterality Urine, First 04/27/2016 2:05 PM Voided RECLAMATION FURNACE OPERATOR Neda Hoffman M.D. LAB URINE ORDERABLES Performing Organization Address City/[facility] Code Phon e Number POWERCHART (ABNORMAL) Automated Differential (04/27/2016 1:46 PM RECLAMATION FURNACE OPERATOR) Patholo gist Method Time Signature Absolute 9.63 (H) 1.70 - POWERCHART Neutrophils 7.00 109L Lymphocytes 1.17 0.90 - POWERCHART 2.90 X109L Monocytes 0.59 0.30 - POWERCHART 0.90 X109L Eosinophils 0.02 (L) 0.05 - POWERCHART 0.50 X109L Absolute 0.06 0.00 - POWERCHART Basophil 0.30 X109L Specimen Anatomical Collection Method Collection Time Receive d Time (Source) Location / / Volume Laterality Blood 04/27/2016 1:46 PM 7 1:46 RECLAMATION FURNACE OPERATOR PM RECLAMATION FURNACE OPERATOR Neda Hoffman M.D. LAB BLOOD ADD-ON Performing Organization Address City/[facility] Phon e Number POWERCHART (ABNORMAL) CBC with Differential (04/27/2016 1:46 PM RECLAMATION FURNACE OPERATOR) Analysis Performed At Patho logist Time Signature Leukocytes 11.5 (H) 3.4 - 10.5 POWERCHART X109L Erythrocytes 4.44 3.90 - POWERCHART 5.03 [id number] Hemoglobin 12.5 12.0 - POWERCHART 15.5 GDL Hematocrit 39.1 34.9 - POWERCHART 44.5 MCV 88.1 82.0 - POWERCHART 98.0 FL HX RDW 14.7 11.9 - POWERCHART 15.5 Platelet Count 438 150 - 450 POWERCHART X109L Specimen (Source) Anatomical Collection Method Collection Time Re ceived Time Location / / Volume Laterality Blood 04/27/2016 1:46 PM RECLAMATION FURNACE OPERATOR Nead Hoffman M.D. LAB BLOOD ADD-ON Performing Organization Address City/[facility] Phon e Number POWERCHART (ABNORMAL) BMP (Basic Metabolic Panel) (04/27/2016 1:46 PM RECLAMATION FURNACE OPERATOR) P athologist Signature Sodium, S 141 135 - 145 POWERCHART MMOLL Potassium, S 4.4 3.6 - 5.2 POWERCHART MMOLL Chloride, S 101 98 - 107 POWERCHART MMOLL CO2 Total 24 22 - 29 POWERCHART MMOLL Comment: Reference ranges have not been established for patients that are <12 months of age. BUN (Blood Urea Nitrogen), S 17 6 - 21 MGDL POWERCHART Creatinine 0.98 0.60 - 1.10 MGDL POWERCHART Calcium, Total, S 9.6 8.8 - 10.3 MGDL POWERC CIFUENTES Anion Gap 16 (H) 7 - 15 MMOLL POWERCHART HXeGFR (MDRD) 55 (L) >=60 [id number] POWERCHART eGFR Black/ >60 >=60 [id number] POWERCHART Glucose 119 70 - 139 MGDL POWERCHART Specimen (Source) Anatomical Collection Method Collection Time Re ceived Time Location / / Volume Laterality Blood 04/27/2016 1:46 PM RECLAMATION FURNACE OPERATOR Neda Hoffman M.D. LAB BLOOD ADD-ON Performing Organization Address City/State/ZIP Code Phon e Number POWERCHART ECG 12 Lead (04/27/2016 1:27 PM RECLAMATION FURNACE OPERATOR) Specimen (Source) Anatomical Collection Method Collection Time Re ceived Time Location / / Volume Laterality 04/27/2016 1:27 PM RECLAMATION FURNACE OPERATOR [facility] - 04/27/2016 1:27 PM RECLAMATION FURNACE OPERATOR Test Reason : PRE OP Blood Pressure : / mmHG Vent. Rate : 078 BPM ? Atrial Rate : 078 BPM ?? P-R Int : 182 ms ?QRS D ur : 090 ms ?QT Int : 400 ms ? P-R-T Axe s : 069 057 040 degrees ?? QTc Int : 456 ms Normal sinus rhythm Normal ECG No previous ECGs available Referred By: NEDA HOFFMAN ? Confirmed By:LAURI JACOBSON MD Procedure Note Provider, Estella Kang - 09/13/2016F ormatting of this note might be different from the original. Test Reason : PRE OP Blood Pressure : / mmHG Vent. Rate : 078 BPM Atrial Rate : 078 B PM P-R Int : 182 ms QRS Dur : 090 ms QT Int : 400 ms P-R-T Axes : 069 057 04 0 degrees QTc Int : 456 ms Normal sinus rhythm Normal ECG No previous ECGs available Referred By: NEDA HOFFMAN Confirmed By :LAURI JACOBSON MD Lauri Jacobson M.D. ECG ORDERABLES Performing Organization Address City/State/ZIP Code Phon e Number [facility] [address] [place] [phone] documented in this encounter Visit Diagnoses Not on filedocumented in this encounter Additional Health Concerns Assessment Noted Time PHQ-9 Depression Total Score: 1 02/03/2016 8:15 AM RECLAMATION FURNACE OPERATOR documented as of this encounter
--- OUTSIDE RECORDS SUMMARY | 2022-02-28 01:44 | XMS_ITS | Encounter Summary ---
:1940 Author Organization [facility] Address [address] [place] [address] Care Team Providers Name Role Phone Neda Hoffman M.D. Primary Care Provider Encounter Details Date Type Department Care Team Description 09/13/2016 Hospital Encounter HX [facility] Regulo Hoffman M.D. [address] [place] [address] [phone] (Wo rk) Social History Tobacco [...] of this encounter Miscellaneous Notes Miscellaneous - Neda Hoffman M.D. - 09/14/2016 7:29 AM CDT Results Notification Document Contains Addenda Addendum by LEVI OLIVAS LPN on September 14, 2016 10:12:42 CDT patient called Addendum by NEDA HOFFMAN MD on September 14, 2016 09:22:28 CDT From: NEDA HOFFMAN MD To: Neda Hoffman Nurse; Sent: 09/14/2016 09:22:28 CDT Show up: 09/14/2016 09:22:00 CDT Subject: RE: Results Notification would neither increase or decrease at this time. See me in a month Addendum by LEVI OLIVAS LPN on September 14, 2016 09:09:29 CDT From: LEVI OLIVAS LPN ( Neda Hoffman Nurse) To: NEDA HOFFMAN MD; Sent: 09/14/2016 09:09:29 CDT Show up: 09/14/2016 09:08:00 CDT Subject: RE: Results Notification patient called having pain in right hand taking 7mg predisone daily From: NEDA HOFFMAN MD To: Neda Hoffman Nurse; Sent: 09/14/2016 07:29:21 CDT ! Show up: 09/14/2016 07:29:21 CDT Subject: Results Notification Actions: Notify patient of results Reminder Comments: elavated. What are her symptoms? Results: Date Result Name Ind Value Ref Range 09/13/2016 12:45 Sed Rate (H) 53 mm/hr (0 - 29) Source: [facility] [employer] Document Id: [id number] Electronically signed by Conversion, [facility] [employer] [id number] at 09/28/2016 11:13 AM CDT documented in this encounter Plan of Treatment Not on filedocumented as of this encounter Procedures Procedure Name Priority Date/Time Associated Comments Diagnosis SEDIMENTATION RATE, B Routine 09/13/2016 12:45 Re sults for this PM CDT procedure are i n the results section. documented in this encounter Results (ABNORMAL) Sedimentation Rate (09/13/2016 12:45 PM CDT) [facility] gist Method Time Signature Sedimentation 53 (H) 0 - 29 POWERCHART Rate, B MMHR Specimen (Source) Anatomical Collection Method Collection Time Re ceived Time Location / / Volume Laterality Blood 09/13/2016 12:45 PM CDT Neda Hoffman M.D. 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 PCP - General 09/08/16 11/16/[address] [place] [phone] documented as of this encounter
--- OUTSIDE RECORDS SUMMARY | 2022-02-28 01:44 | XMS_ITS | Encounter Summary ---
:1940 Author Organization [facility] Address [address] [place] [address] Care Team Providers Name Role Phone Unavailable Primary Care Provider Unavailable Encounter Details Date Type Department Care Team Description 06/13/2016 Hospital Encounter HX [facility] Javire Escalante, [facility], C.N.P. [address] [phone] (Wo rk) Social History Tobacco Use Types Packs/Day Years Used Date Smoking Tobacco: Never Sex Assigned at Date Recorded Female 09/25/2017 1:20 PM CDT documented as of this encounter Last Filed Vital Signs Vital Sign Reading Time Taken Comments Blood Pressure 132/58 06/13/2016 1:27 PM CDT Pulse 86 06/13/2016 1:27 PM CDT Temperature - - Respiratory Rate [...] cream topically 2 (two) times a day. losartan (for_COZAAR) Take 1 tablet by mouth 0 02/09/2017 100 mg tablet daily. predniSONE Take 1.5 tablets by 0 05/11/201604/19 (for_DELTASONE) 5 mg mouth daily. tablet documented as of this encounter Progress Notes Chadwick Escalante APRN, R.N. - 06/13/2016 1:23 PM CDT UROL-LE CHIEF COMPLAINT/REASON FOR VISIT Urinary retention. HISTORY OF PRESENT ILLNESS Zoe is a pleasant 75-year-old female here today for a recheck of her InterStim. She has had difficulties with urinary retention. With her InterStim she initially had very good results. Now she is having continued retention but her urgency and frequency is improved. She is only getting up 2 times in the night and each time she is going approximately 400 mL. She goes 4 to 5 times during the day. Eachtime is 3:00 to 350 mL. She is currently measuring her urine daily. She has had her stimulator on program 2 and she is wondering if we should switch it to see if that will help with her retention. MEDICATIONS Reviewed per EMR. ALLERGIES Oxycodone and sulfa drugs. PAST MEDICAL/SURGICAL HISTORY Reviewed per EMR. VITAL SIGNS Temperature 36.5, heart rate 86, respiratory rate 18, blood pressure 132/58. Not a tobacco user. PHYSICAL EXAMINATION GENERAL: Well-developed well-nourished well-groomed, 75-year-old female, in no acute distress. Alert, cooperative, oriented x3. HEAD: Normal appearance. No abnormalities. NECK: Symmetrical and supple. CARDIAC: Regular rate, regular rhythm. RESPIRATORY: Respirations unlabored. Normal respiratory rate. Normal respiratory movement. ABDOMEN: Soft, nontender, nondistended. EXTREMITIES: Warm without edema or ulcerations. DIAGNOSTICS Postvoid residual 562 mL. IMPRESSION/REPORT/PLAN Urinary retention. We did switch her InterStim back to program 1 at 1.9. She is able to feel the stimulation. We will see how this goes and keep making changes in her in her degree of stimulation and programming until we get better results. We will see her again in approximately 6 weeks for a recheck of her postvoid residual. All of her questions are answered today. Chadwick Escalante N.P./kimmie Electronically Signed By: ZICHADWICK SAGASTUME APRN, RN On: 06/22/2016 05:24 PM Source: [facility]SDOLBEYNONRADSYS Document Id: [id number] documented in this encounter Miscellaneous Notes Miscellaneous - Shelby Agarwal L.P.N. - 06/13/2016 1:27 PM CDT Adult Manager Marketing Sales Intake/History Adult Manager Marketing Sales Intake/History Entered On: 06/13/2016 13:30 CDT Performed On: 06/13/2016 13:27 CDT by SHELBY AGARWAL LPN Intake Temperature Core : 36.5 DegC(Converted to: 97.7 DegF) SHELBY AGARWAL LPN - 06/13/2016 13:36 CDT Chief Complaint : Recheck interstim, PVR Peripheral Pulse Rate : 86 /min Systolic Blood Pressure : 132 mmHg Diastolic Blood Pressure : 58 mmHg NIBP Mean : 83 mmHg BP Location : Left upper extremity Blood Pressure Cuff Size : Regular SHELBY AGARWAL LPN - 06/13/2016 13:27 CDT General Info Information Given By : Patient Preferred Communication Mode : Verbal Languages : Wolof Is Patient Female and 13-50 no hysterectomy : No SHELBY AGARWAL LPN - 06/13/2016 13:27 CDT Subjective Pain Symptoms : SHELBY Posadas LPN - 06/13/2016 13:27 CDT Dependent Habits Exposure to Tobacco Smoke : Care provider denies smoking in home, Other: Never Smoking Status : Never smoker Tobacco 2A : No Tobacco Use/Currently Using : No Tobacco Use/Last 30 Days : No Tobacco Use/Last 12 months : No SHELBY AGARWAL LPN - 06/13/2016 13:27 CDT Caffeine Use Grid Caffeine Use : Current Type : Coffee Frequency : Daily SHELBY AGARWAL LPN - 06/13/2016 13:27 CDT Recreational Drug Use Grid Drug Use : None SHELBY AGARWAL LPN - 06/13/2016 13:27 CDT Source: [facility] POWERCHART Document Id: [id number] CDT!32 documented in this encounter Plan of Treatment Not on filedocumented as of this encounter Visit Diagnoses Not on filedocumented in this encounter Additional Health Concerns Assessment Noted Time PHQ-9 Depression Total Score: 1 02/03/2016 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
--- OUTSIDE RECORDS SUMMARY | 2022-02-28 01:44 | XMS_ITS | Encounter Summary ---
:1940 Author Organization [facility] Address [address] [place] [address] Care Team Providers Name Role Phone Unavailable Primary Care Provider Unavailable Encounter Details Date Type Department Care Team Description 07/05/2016 Hospital Encounter HX [facility] JAMESMED Regulo Hoffman M.D. [address] [place] [address] 021 (Wo rk) Social History Tobacco Use Types Packs/Day Years Used Date Smoking Tobacco: Never Sex Assigned at Date Recorded Female 09/25/2017 1:20 PM CDT documented as of this encounter Last Filed Vital Signs Vital Sign Reading Time Taken Comments Blood Pressure 128/62 07/05/2016 12:50 PM CDT Pulse 80 07/05/2016 12:50 PM CDT Temperature - - Respiratory Rate 16 07/05/2016 12:50 PM CDT Oxygen Saturation - - Inhaled Oxygen Concentration - - Weight 70.5 kg (155 lb 5 oz) 07/05/2016 12:50 PM CDT Height 159 cm (5' 2.6) 07/05/2016 12:50 PM CDT Body Mass Index 27.87 07/05/2016 12:50 PM CDT documented in this encounter Medications [...] encounter Progress Notes Neda Hoffman M.D. - 07/05/2016 12:32 PM CDT [id number] CHIEF COMPLAINT/REASON FOR VISIT Post hospital visit. The patient, 4 to 5 days ago, was hospitalized in [place]. She arrived by ambulance at the hospital after finding sudden severe knee pain with which she could not walk. They could not find anything wrong with her in the emergency room and they admitted her to the hospital for several days because of inability to ambulate and knee pain. She was seen in consultation by Dr. Cantrell, the orthopedist,and, to the best my knowledge, nothing could be found with her knee. No injection was performed. Shedid get better and she now has no pain of any kind in the knee. There was no specific treatment thatI can see. It is very and strange and we talked about that in some detail. They made big points about how many blood pressure pills she was on in [facility] and why she was on prednisone and so on. It is very difficult because you cannot tell them these things and they cannot access the records. She is on prednisone because she has polymyalgia rheumatica. We have not recently been able to check her sedimentation rate and go by it because she has been having urologic procedures and urologic infections in [place]. In any event, she is out from these things a bit and I will see if I can check it today. If it is normal we come down on the prednisone. The patient herself has decided the spironolactone, which was added because she had fairly resistant hypertension, is making her nauseated and she may certainly stop that and I will see her in a month and see if her blood pressure is still well controlled. We will have to examine today and see how she is doing on all these fronts because I have no discharge summary. Just a bunch of paper she brings from her discharge, which basically talk about her medications and such. There are no records from the [facility] in the chart. I cannot review thembecause they are an independent hospital that have nothing to do with either [facility] or [place]. MEDICATIONS Per EMR. ALLERGIES Per EMR. PAST MEDICAL/SURGICAL HISTORY Significant for: 1. Polymyalgia rheumatica. 2. Urinary retention status post placement of a bladder stimulator. 3. AODM. 4. Fatigue. 5. DJD. 6. Hypertension. 7. Mixed dyslipidemia. SOCIAL HISTORY She is . She comes with a male friend today but he lives 20 miles away from her. He has been helping her a lot. She does not smoke. She has the rarest of social alcohol. PHYSICAL EXAMINATION VITAL SIGNS: Temperature 36.8, heart rate 80, respiratory rate 18, blood pressure 128/62. Weight 70.45. PHYSICAL EXAMINATION HEENT: Eyes: Conjunctiva and lids normal. Pupils equal, round, reactive to light and accommodation. Extraocular movements normal. Sclera nonicteric. Ophthalmologic exam grossly normal. ENT: Tympanic membranes look okay bilaterally. Nares without erythema or congestion. Mouth without erythema or exudate, no leuko or erythroplakia. NECK: Supple, no adenopathy or thyromegaly. Carotid upstrokes +2 bilaterally. No carotid bruits. LUNGS: Clear to auscultation and percussion with normal respiratory rate and effort. HEART: Central venous pressure is normal at 7 to 8 cm of water or less; there is a normal systolic collapse of the jugular venous pulse; there is not a positive hepatojugular reflex. Heart tones are insinus rhythm; S1 and S2 normal, physiologic splitting of the second heart tone, no third or fourth sound, no significant murmur, no gallop. MUSCULOSKELETAL: Her left knee is carefully examined. It fully flexes and extends. There is no tenderness over the joints sutures and no tenderness to the meniscal maneuvers either. IMPRESSION/REPORT/PLAN 1. Left knee pain. I have no idea what this represents. Knee pain that is so severe you cannot walk and is gone in 2 days without treatment is a diagnostic dilemma to me as it was to the doctors in thehospital. In any event, she is better and there is no point in looking backwards. If it happens again perhaps the knee should be aspirated. That is the one thing I do not think was done. 2. Hypertension. The blood pressure is well controlled today. She may discontinue the spironolactoneand I will check her in a month and see how she is doing. 3. Polymyalgia rheumatica. We will see what her sedimentation rate is today. I suspect it will be elevated and we will still be stuck in the decision to reduce the prednisone. I may try a lower dose and see if the sedimentation rate goes up at all. If it does not then we will have to accept a higher sedimentation rate, and, as long as it does not increase, continue the taper of her prednisone. 4. Adult-onset diabetes mellitus. I will check laboratories today and get a feel for how she is doing with an A1c. 5. Urinary retention with a bladder stimulator. That is the one success story. It is working well for her. Laboratories today: She had a BMP, CBC, A1c, hepatic function panel, sedimentation rate, and thyroidfunction cascade. Will call her with test results. She is scheduled to return in 4 weeks. Time component was 40 minutes, 35 minutes of it counseling on PMR, AODM, knee pain and hypertension. Neda Hoffman M.D./kimmie Electronically Signed By: NEDA HOFFMAN MD On: 07/06/2016 11:51 AM Source: [facility] MHSDOLBEYNONRADSYS Document Id: [id number] documented in this encounter Miscellaneous Notes Miscellaneous - Neda Hoffman M.D. - 07/06/2016 8:00 AM CDT Results Notification Document Contains Addenda Addendum by LEVI MALONEY LPN on July 07, 2016 10:02:04 CDT Spoke with: ( x_ ) Patient ( _ ) Parent ( _ ) Spouse ( _ ) Child ( ) Other: _ Call back telephone number: _ Reason for Call: -_test results Chief Complaint: called with results _ [...] language for Healthcare discussion: _ Was an contractor general engineering used for this call? _ Other ( --x_ ) no further action needed Addendum by CHERELLE NICHOLS on July 07, 2016 07:43:05 CDT Patient returned call Addendum by LEVI MALONEY LPN on July 06, 2016 10:58:24 CDT message left for patient to return call From: NEDA HOFFMAN MD To: ANDRIA Hoffman Nurse; Sent: 07/06/2016 08:00:57 CDT ! Show up: 07/06/2016 08:00:57 CDT Subject: Results Notification Actions: Notify patient of results Reminder Comments: ok Results: Date Result Name Value Ref Range 07/05/2016 13:37 TSH, Sensitive-Wick 0.4 mIU/L (0.3-4.2 - ) Source: [facility] POWERCHART Document Id: [id number] Electronically signed by Conversion, [facility] Twine Reeling Machine Operator [id number] at 09/06/2016 6:59 AM CDT Miscellaneous - Neda Hoffman M.D. - 07/06/2016 7:16 AM CDT Results Notification Document Contains Addenda Addendum by LEVI MALONEY LPN on July 07, 2016 10:02:31 CDT Spoke with: ( _x ) Patient [...] language for Healthcare discussion: _ Was an contractor general engineering used for this call? _ Other (x --_ ) no further action needed From: NEDA HOFFMAN MD To: ANDRIA Hoffman Nurse; Sent: 07/06/2016 07:16:39 CDT ! Show up: 07/06/2016 07:16:39 CDT Subject: Results Notification Actions: Notify patient of results Reminder Comments: all good Results: Date Result Name Ind Value Ref Range 07/05/2016 13:37 Sodium Lvl 137 mmol/L (135 - 145) 07/05/2016 13:37 Potassium Lvl 3.9 mmol/L (3.6 - 5.2) 07/05/2016 13:37 Chloride (L) 95 mmol/L (98 - 107) 07/05/2016 13:37 CO2 26 mmol/L (22 - 29) 07/05/2016 13:37 AGAP (H) 16 mmol/L (7 - 15) 07/05/2016 13:37 Alkaline Phosphatase 74 U/L (35 - 105) 07/05/2016 13:37 Glucose Lvl 113 mg/dL (70 - 139) 07/05/2016 13:37 Creatinine (H) 1.16 mg/dL (0.60 - 1.10) 07/05/2016 13:37 EGFR (MDRD) (L) 45 mL/min/1.73m2 (>=60 - ) 07/05/2016 13:37 EGFR (MDRD) (L) 55 mL/min/1.73m2 (>=60 - ) 07/05/2016 13:37 BUN (H) 22 mg/dL (6 - 21) 07/05/2016 13:37 Calcium Lvl 9.7 mg/dL (8.8 - 10.3) 07/05/2016 13:37 Protein Total 6.8 g/dL (6.4 - 8.3) 07/05/2016 13:37 Albumin Lvl 4.1 G/DL (3.2 - 5.2) 07/05/2016 13:37 AST 26 unit/L (8 - 43) 07/05/2016 13:37 ALT 20 unit/L (7 - 45) 07/05/2016 13:37 Bili Total 0.3 mg/dL ( - <=1.2) 07/05/2016 13:37 Bili Direct <0.2 mg/dL ( - <=0.3) 07/05/2016 13:37 Hgb A1c (H) 6.7 % A1C ( - <=5.6) Source: [facility] POWERCHART Document Id: [id number] Electronically signed by Pj, [facility] Twine Reeling Machine Operator [id number] at 09/06/2016 6:59 AM CDT Miscellaneous - Neda Hoffman M.D. - 07/05/2016 3:27 PM CDT Results Notification Document Contains Addenda Addendum by LEVI MALONEY LPN on July 07, 2016 10:03:03 CDT Spoke with: ( _ x) Patient ( _ ) Parent ( _ ) Spouse ( _ ) Child ( ) Other: _ Call back telephone number: _ Reason for Call: -_test results Chief Complaint: called with results _ [...] language for Healthcare discussion: _ Was an contractor general engineering used for this call? _ Other ( --_x ) no further action needed Addendum by LEVI MALONEY LPN on July 06, 2016 09:40:52 CDT message left for patient to return call From: NEDA HOFFMAN MD To: ANDRIA Hoffman Nurse; Sent: 07/05/2016 15:27:20 CDT ! Show up: 07/05/2016 15:27:20 CDT Subject: Results Notification Actions: Notify patient of results Reminder Comments: hold pred the same Results: Date Result Name Ind Value Ref Range 07/05/2016 13:37 Sed Rate (H) 71 mm/hr (0 - 29) Source: [facility] PPI Document Id: [id number] Electronically signed by Conversion, [facility] Twine Reeling Machine Operator [id number] at 09/06/2016 6:59 AM CDT Miscellaneous - Neda Hoffman M.D. - 07/05/2016 2:30 PM CDT Results Notification Document Contains Addenda Addendum by LEVI MALONEY LPN on July 07, 2016 09:30:47 CDT Spoke with: ( _x ) Patient ( _ ) Parent ( _ ) Spouse ( _ ) Child ( ) Other: _ Call back telephone number: _ Reason for Call: -_ test results Chief Complaint: called with results _ Patient/Caller response to Education/Information given: ( x_ ) Verbalizes understanding of instructions ( _ [...] language for Healthcare discussion: _ Was an contractor general engineering used for this call? _ Other ( --_x ) no further action needed Addendum by LEVI MALONEY LPN on July 06, 2016 09:41:02 CDT message left for patient to return call From: NEDA HOFFMAN MD To: ANDRIA Hoffman Nurse; Sent: 07/05/2016 14:30:38 CDT ! Show up: 07/05/2016 14:30:38 CDT Subject: Results Notification Actions: Notify patient of results Reminder Comments: ok Results: Date Result Name Ind Value Ref Range 07/05/2016 13:37 Hgb 12.1 g/dL (12.0 - 15.5) 07/05/2016 13:37 Hct 36.9 % (34.9 - 44.5) 07/05/2016 13:37 WBC 6.0 x10(9)/L (3.4 - 10.5) 07/05/2016 13:37 RBC 4.12 x10(12)/L (3.90 - 5.03) 07/05/2016 13:37 MCV 89.6 fL (82.0 - 98.0) 07/05/2016 13:37 RDW 14.9 % (11.9 - 15.5) 07/05/2016 13:37 Platelet (H) 464 x10(9)/L (150 - 450) 07/05/2016 13:37 Neutro Absolute 2.28 10(9)/L (1.70 - 7.00) 07/05/2016 13:37 Lymph Absolute 2.65 x10(9)/L (0.90 - 2.90) 07/05/2016 13:37 [place] Absolute (H) 0.93 x10(9)/L (0.30 - 0.90) 07/05/2016 13:37 Eos Absolute 0.06 x10(9)/L (0.05 - 0.50) 07/05/2016 13:37 Baso Absolute 0.05 x10(9)/L (0.00 - 0.30) Source: [facility] POWERCHART Document Id: [id number] Electronically signed by Pj, [facility] Twine Reeling Machine Operator [id number] at 09/06/2016 6:59 AM CDT Miscellaneous - Neda Hoffman M.D. - 07/05/2016 1:26 PM CDT Ambulatory Patient Summary [facility] [address] [place] [address] [id number] Visit Information Name: JACOB ANDINO KAMRAN [facility] Number: [id number] Current Date: 07/05/2016 13:26:38 Physicians Attending Provider: NEDA HOFFMAN MD Primary [...] the Following Medications: Medication list as of 07-05-16 13:26 Attention: If you have any medications at [...] Your Upcoming Appointments Date Time Location Provider 07/25/2016 13:15 [facility] Urology Verónica Escalante CNP Attention: Contact your [...] if you dont have one. Go to [email or web address] and click on Create Your Account. Then, follow the directions to complete the online form. Youll be asked for your [facility] number which you can find at the top of this document. Your Goals/Additional instructions: Source: [facility] POWERCHART Document Id: [id number] Miscellaneous - Neda Hoffman M.D. - 07/05/2016 1:26 PM CDT Ambulatory Discharge Medication List [address] [id number] Visit Information Name: JACOB ANDINO [facility] Number: [id number] Current Date: 07/05/2016 13:26:37 Attending Provider: NEDA HOFFMAN MD Primary Care Provider: NEDA HOFFMAN MD KELLEEJACOB DE LEON KAMRAN has been given the following list [...] the Following Medications: Medication list as of 07-05-16 13:26 Attention: If you have any medications at [...] Signed By: Signed On: Additional Information: Source: [facility] POWERCHART Document Id: [id number] Miscellaneous - Levi Maloney L.P.N. - 07/05/2016 12:50 PM CDT Adult Director Of Application Development Intake/History Adult Director Of Application Development Intake/History Entered On: 07/05/2016 12:54 CDT Performed On: 07/05/2016 12:50 CDT by LEVI MALONEY LPN Intake Chief Complaint : recheck and post ER visit knee pain Temperature Core : 36.8 DegC(Converted to: 98.2 DegF) Peripheral Pulse Rate : 80 /min Respiratory Rate : 16 /min Heart Rhythm : Regular Systolic Blood Pressure : 128 mmHg Diastolic Blood Pressure : 62 mmHg NIBP Mean : 84 mmHg BP Location : Left upper extremity Blood Pressure Cuff Size : Regular Height : 159 cm(Converted to: 5 ft 3 inch(es), 63 inch(es)) Actual Weight : 70.45 kg(Converted to: 155 lb 5 oz) Weight Source : Standing scale Dosing Weight Clinic : 70.45 kg Clinic BSA : 1.76 Body Mass Index : 27.87 kg/m2 LEVI MALONEY LPN - 07/05/2016 12:50 CDT General Info Information Given By : Patient Languages : Lao Is Patient Female and 13-50 no hysterectomy : No LEVI MALONEY LPN - 07/05/2016 12:50 CDT Subjective Pain Symptoms : No LEVI MALONEY LPN - 07/05/2016 12:50 CDT Dependent Habits Exposure to Tobacco Smoke : Care provider denies smoking in home, Other: Never Smoking Status : Never smoker Tobacco 2A : No Tobacco Use/Currently Using : No Tobacco Use/Last 30 Days : No Tobacco Use/Last 12 months : No LEVI MALONEY LPN - 07/05/2016 12:50 CDT Caffeine Use Grid Caffeine Use : Current Type : Coffee Frequency : Daily LEVI MALONEY ENROLLMENT MANAGEMENT DIRECTOR - 07/05/2016 12:50 CDT Recreational Drug Use Grid Drug Use : None LEVI MALONEY GERARDO - 07/05/2016 12:50 CDT Source: [facility] POWERCHART Document Id: [id number]!39 documented in this encounter Plan of Treatment Not on filedocumented as of this encounter Procedures Procedure Name Priority Date/Time Associated Comments Diagnosis HEPATIC FUNCTION Routine 07/05/2016 1:37 PM Resul ts for this PANEL, S CDT procedure are i n the results section. THYROID FUNCTION Routine 07/05/2016 1:37 PM Resul ts for this CASCADE, S CDT procedure are i n the results section. AUTOMATED Routine 07/05/2016 1:37 PM Results f or this DIFFERENTIAL, B CDT procedure ar e in the results section. SEDIMENTATION RATE, B Routine 07/05/2016 1:37 PM Results for this CDT procedure are i n the results section. CBC WITH DIFFERENTIAL, Routine 07/05/2016 1:37 PM Results for this B CDT procedure are i n the results section. HEMOGLOBIN A1C, B Routine 07/05/2016 1:37 PM Resu lts for this CDT procedure are i n the results section. BASIC METABOLIC PANEL, Routine 07/05/2016 1:37 PM Results for this S/P CDT procedure are i n the results section. documented in this encounter Results (ABNORMAL) Automated Differential (07/05/2016 1:37 PM CDT) [facility] gist Method Time Signature Absolute 2.28 1.70 - POWERCHART Neutrophils 7.00 109L Lymphocytes 2.65 0.90 - POWERCHART 2.90 X109L Monocytes 0.93 (H) 0.30 - POWERCHART 0.90 X109L Eosinophils 0.06 0.05 - POWERCHART 0.50 X109L Absolute 0.05 0.00 - POWERCHART Basophil 0.30 X109L Specimen Anatomical Collection Method Collection Time Receive d Time (Source) Location / / Volume Laterality Blood 07/05/2016 1:37 PM 7 1:37 CDT PM CDT Neda Hoffman M.D. LAB BLOOD ADD-ON Performing Organization Address City/[facility]/ZIP Code Phon e Number POWERCHART (ABNORMAL) CBC with Differential (07/05/2016 1:37 PM CDT) athologist Signature Leukocytes 6.0 3.4 - 10.5 POWERCHART X109L Erythrocytes 4.12 3.90 - POWERCHART 5.03 [id number] Hemoglobin 12.1 12.0 - POWERCHART 15.5 GDL Hematocrit 36.9 34.9 - POWERCHART 44.5 MCV 89.6 82.0 - POWERCHART 98.0 FL HX RDW 14.9 11.9 - POWERCHART 15.5 Platelet Count 464 (H) 150 - 450 POWERCHART X109L Specimen (Source) Anatomical Collection Method Collection Time Re ceived Time Location / / Volume Laterality Blood 07/05/2016 1:37 PM CDT Neda Hoffman M.D. LAB BLOOD ADD-ON Performing Organization Address City/[facility] Phon e Number POWERCHART (ABNORMAL) Sedimentation Rate (07/05/2016 1:37 PM CDT) [facility] gist Method Time Signature Sedimentation 71 (H) 0 - 29 POWERCHART Rate, B MMHR Specimen (Source) Anatomical Collection Method Collection Time Re ceived Time Location / / Volume Laterality Blood 07/05/2016 1:37 PM CDT Neda Hoffman M.D. LAB BLOOD ADD-ON Performing Organization Address [facility] Phon e Number POWERCHART Hepatic Function Panel (07/05/2016 1:37 PM CDT) [facility] gist Method Time Signature Alanine 20 7 - 45 POWERCHART Amniotransferase, LD UNITL Albumin, S 4.1 3.2 - 5.2 POWERCHART GDL Alkaline 74 35 - 105 POWERCHART Phosphatase, S UL Aspartate 26 8 - 43 POWERCHART Aminotransferase UNITL (AST), S Bilirubin, Direct, S <0.2 <=0.3 POWERCHAR T MGDL Bilirubin, Total, S 0.3 <=1.2 POWERCHART MGDL Total Protein, S 6.8 6.4 - 8.3 POWERCHART GDL Specimen (Source) Anatomical Collection Method Collection Time Re ceived Time Location / / Volume Laterality Blood 07/05/2016 1:37 PM CDT Neda Hoffman M.D. LAB BLOOD ADD-ON Performing Organization Address City/State/ZIP Code Phon e Number POWERCHART Thyroid Function [place] (07/05/2016 1:37 PM CDT) P athologist Signature TSH, Sensitive 0.4 0.3 - 4.2 POWERCHART MIUL Comment: Test Performed by: [address] [address] Specimen (Source) Anatomical Collection Method Collection Time Re ceived Time Location / / Volume Laterality Blood 07/05/2016 1:37 PM CDT Neda Hoffman M.D. LAB BLOOD ADD-ON Performing Organization Address City/[facility] Code Phon e Number POWERCHART (ABNORMAL) Hemoglobin A1c (07/05/2016 1:37 PM CDT) athologist Signature Hemoglobin A1c, 6.7 (H) <=5.6 A1C POWERCHART B Specimen (Source) Anatomical Collection Method Collection Time Re ceived Time Location / / Volume Laterality Blood 07/05/2016 1:37 PM CDT Neda Hoffman M.D. LAB BLOOD ADD-ON Performing Organization Address City/[facility]/ZIP Code Phon e Number POWERCHART (ABNORMAL) BMP (Basic Metabolic Panel) (07/05/2016 1:37 PM CDT) P athologist Signature Sodium, S 137 135 - 145 POWERCHART MMOLL Potassium, S 3.9 3.6 - 5.2 POWERCHART MMOLL Chloride, S 95 (L) 98 - 107 POWERCHART MMOLL CO2 Total 26 22 - 29 POWERCHART MMOLL Comment: Reference ranges have not been established for patients that are <12 months of age. BUN (Blood Urea Nitrogen), S 22 (H) 6 - 21 MGDL POWERCHART Creatinine 1.16 (H) 0.60 - 1.10 MGDL POWERCHART Calcium, Total, S 9.7 8.8 - 10.3 MGDL POWERC CIFUENTES Anion Gap 16 (H) 7 - 15 MMOLL POWERCHART HXeGFR (MDRD) 45 (L) >=60 [id number] POWERCHART eGFR Black/ 55 (L) >=60 [id number] POWERCHART Glucose 113 70 - 139 MGDL POWERCHART Specimen (Source) Anatomical Collection Method Collection Time Re ceived Time Location / / Volume Laterality Blood 07/05/2016 1:37 PM CDT Neda Hoffman M.D. LAB BLOOD ADD-ON Performing Organization Address City/State/ZIP Code Phon e Number POWERCHART documented in this encounter Visit Diagnoses Not on filedocumented in this encounter Additional Health Concerns Assessment Noted Time PHQ-9 Depression Total Score: 1 02/03/2016 8:15 AM CONTINUOUS MINER documented as of this encounter
--- OUTSIDE RECORDS SUMMARY | 2022-02-28 01:44 | XMS_ITS | Encounter Summary ---
:1940 Author Organization [facility] Address [address] [place] [address] Care Team Providers Name Role Phone Unavailable Primary Care Provider Unavailable Encounter Details Date Type Department Care Team Description 05/09/2016 Hospital Encounter HX [facility] Javier Knowles, LARS, C.N.P. [address] [phone] (Wo rk) Social History Tobacco Use Types Packs/Day Years Used Date Smoking Tobacco: Never Sex Assigned at Date Recorded Female 09/25/2017 1:20 PM CDT documented as of this encounter Last Filed Vital Signs Vital Sign Reading Time Taken Comments Blood Pressure 152/74 05/09/2016 9:12 AM SIGN HANGER SUPERVISOR Pulse 78 05/09/2016 9:12 AM SIGN HANGER SUPERVISOR Temperature - - Respiratory Rate - - [...] Progress Notes Chadwick Knowles APRN, R.N. - 05/09/2016 8:57 AM CST [id number] CHIEF COMPLAINT/REASON FOR VISIT Urinary retention status post InterStim trial. HISTORY OF PRESENT ILLNESS Zoe is a pleasant 75-year-old female here today for a recheck of her advanced trial of InterStim. She has been doing quite well. On she had a postvoid residual of 400. On Monday she had a postvoid residual of around 200. She is here today to have another postvoid residual and to discuss whether we are going to implant. She states that last night when she was called regarding her progress by the [employer] folks that she was switched to a different program, Program 2, and her current voltage is 2.1. She did have a little bit of trouble making the change to a different program on her own but her friend was able to help her. She is worried that if we implant she will have trouble using the remote. She is reassured that the remote that she will be given after full implantation is different than the remote she has now so I do not want her to worry about it at this time. She brings bladder diaries with her. She has been having a little bit more frequency and she does not feel that Program 2has been working well for her. MEDICATIONS Reviewed per EMR. ALLERGIES Oxycodone and sulfa drugs. PAST MEDICAL/SURGICAL HISTORY Reviewed today per EMR. VITAL SIGNS Temperature 36.1, heart rate 78, blood pressure 152/74. Not a tobacco user. PHYSICAL EXAMINATION GENERAL: Well-developed well-nourished well-groomed 75-year-old female, in no acute distress. Alert,cooperative, oriented x3. HEAD: Normal appearance. No abnormalities. NECK: Symmetrical and supple. CARDIAC: Regular rate, regular rhythm. RESPIRATORY: Respirations unlabored. Normal respiratory rate. Normal respiratory movement. ABDOMEN: Soft, nontender, nondistended. EXTREMITIES: Warm without edema or ulcerations. DIAGNOSTICS Postvoid residual 561 mL. IMPRESSION/REPORT/PLAN Urinary retention status post advanced trial of InterStim. At this time she states that she does notfeel that Program 2 is working for her. I agree we will put her back on Program 1, voltage 1.7, at this time. We decided that she would like to have full implantation. She is hopeful that this will be quite helpful for her. All of her questions are answered today. Surgery Scheduling is notified and daniela see her on Monday. We will follow up afterwards. Chadwick Knowles N.P./kimmie Electronically Signed By: CHADWICK KNOWLES APRN, RN On: 05/16/2016 04:25 PM Source: [facility] MHSDOLBEYNONRADSYS Document Id: [id number] HANGER SUPERVISOR documented in this encounter Miscellaneous Notes Miscellaneous - Zenaida Kellogg LReginaPReginaN. - 05/09/2016 9:12 AM CST Adult Core Mounter Intake/History Adult Core Mounter Intake/History Entered On: 05/09/2016 9:16 SIGN HANGER SUPERVISOR Performed On: 05/09/2016 9:12 SIGN HANGER SUPERVISOR by ZENAIDA KELLOGG LPN Intake Chief Complaint : post op Interstim-patient states she has problems with electronics which is hard to operate the device Temperature Core : 36.1 DegC(Converted to: 97.0 DegF) (LOW) Peripheral Pulse Rate : 78 /min Systolic Blood Pressure : 152 mmHg (HI) Diastolic Blood Pressure : 74 mmHg NIBP Mean : 100 mmHg BP Location : Right upper extremity Blood Pressure Cuff Size : Regular ZENAIDA KELLOGG Ivan [facility] - 05/09/2016 9:12 SIGN HANGER SUPERVISOR General Info Information Given By : Patient Preferred Communication Mode : Verbal Languages : Peruvian Is Patient Female and 13-50 no hysterectomy : No BESS, ZENAIDA Ivan MANAGER OF SOFTWARE - 05/09/2016 9:12 SIGN HANGER SUPERVISOR Subjective Pain Symptoms : No GENEVIEVE KELLOGGYL Ivan MANAGER OF SOFTWARE - 05/09/2016 9:12 SIGN HANGER SUPERVISOR Dependent Habits Exposure to Tobacco Smoke : Care provider denies smoking in home, Other: Never Smoking Status : Never smoker Tobacco 2A : No Tobacco Use/Currently Using : No Tobacco Use/Last 30 Days : No Tobacco Use/Last 12 months : No Alcohol Use : No ZENAIDA KELLOGG MANAGER OF SOFTWARE - 05/09/2016 9:12 SIGN HANGER SUPERVISOR Caffeine Use Grid Caffeine Use : Current Type : Coffee Frequency : Daily BESS ZENAIDA Ivan [facility] - 05/09/2016 9:12 SIGN HANGER SUPERVISOR Recreational Drug Use Grid Drug Use : None ZENAIDA KELLOGG MANAGER OF SOFTWARE - 05/09/2016 9:12 SIGN HANGER SUPERVISOR Source: [facility] POWERCHART Document Id: [id number] SIGN HANGER SUPERVISOR!33 HANGER SUPERVISOR documented in this encounter Plan of Treatment Not on filedocumented as of this encounter Visit Diagnoses Not on filedocumented in this encounter Additional Health Concerns Assessment Noted Time PHQ-9 Depression Total Score: 1 02/03/2016 8:15 AM SIGN HANGER SUPERVISOR documented as of this encounter
--- OUTSIDE RECORDS SUMMARY | 2022-02-28 01:44 | XMS_ITS | Encounter Summary ---
:1940 Author Organization [facility] Address [address] [place] [address] Care Team Providers Name Role Phone Unavailable Primary Care Provider Unavailable Encounter Details Date Type Department Care Team Description 05/11/2016 Hospital Encounter HX NO MAPPING Susy Groves M.D. [address] [place], [place] [phone] (Wo rk) Social History [...] Depression Total Score: 1 02/03/2016 8:15 AM SLUDGE FILTRATION ATTENDANT documented as of this encounter
--- OUTSIDE RECORDS SUMMARY | 2022-02-28 01:44 | XMS_ITS | Encounter Summary ---
:1940 Author Organization [facility] Address [address] [place] [address] Care Team Providers Name Role Phone Neda Hoffman M.D. Primary Care Provider Encounter Details Date Type Department Care Team Description 10/13/2016 Hospital Encounter HX [facility] Regulo Hoffman M.D. [address] [place] [phone] (Wo rk) Social History Tobacco Use Types Packs/Day Years Used Date Smoking Tobacco: Never Sex Assigned at Date Recorded Female 09/25/2017 1:20 PM CDT documented as of this encounter Last Filed Vital Signs Vital Sign Reading Time Taken Comments Blood Pressure 138/72 10/13/2016 10:36 AM CDT Pulse 80 10/13/2016 10:36 AM CDT Temperature - - Respiratory Rate 16 10/13/2016 10:36 AM CDT Oxygen Saturation - - Inhaled Oxygen Concentration - - Weight 71.9 kg (158 lb 6.4 oz) 10/13/2016 10:36 AM CDT Height 159 cm (5' 2.6) 10/13/2016 10:36 AM CDT Body Mass Index 28.42 10/13/2016 10:36 AM CDT documented in this encounter Medications [...] encounter Progress Notes Neda Hoffman M.D. - 10/13/2016 10:30 AM CDT [id number] CHIEF COMPLAINT/REASON FOR VISIT Pain in the right hand. Jacob presents today with pain in her right hand. She is localizing it to the wrist and also to the 3rd MCP joint. It is swollen. The wrist has swelling and tenderness as well. 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 A long discussion was held about her polymyalgia. I do not feel, at the moment, it is siegel to do a sed rate because she has active inflammation from non polymyalgia issues in her wrist. She is coming back in a month and if she is feeling pretty good at that time with no active joints and so on we can do a sed rate. If the sed rate is stuck, as it chronically is on her, in the 40s and 50s I may just reduce the prednisone and if it does not go up, leave it alone because she has been on it almost 2 years now and we can never get a normal sedimentation rate. This was discussed in detail with her. MEDICATIONS Per EMR. ALLERGIES Per EMR. SYSTEMS REVIEW Negative in all areas except as mentioned above. PAST MEDICAL/SURGICAL HISTORY 1. DJD, inflammatory. 2. Hypertension. 3. AODM, diet controlled. 4. Mixed dyslipidemia. 5. PMR. 6. 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 7. 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 SOCIAL HISTORY She is . She does not smoke. Has rare social alcohol. PHYSICAL EXAMINATION VITAL SIGNS: Temperature 36.5, heart rate 80, respiratory rate 16, blood pressure 138/72. BMI 28.42. PHYSICAL EXAMINATION Confined to her hand. Her right hand has swelling of the right wrist with tenderness and swelling ofthe 3rd MCP with tenderness but no warmth or redness. IMPRESSION/REPORT/PLAN 1. Polymyalgia rheumatica. We had a long discussion about this and I am going to drop her prednisoneon the next visit probably, regardless of sedimentation rate. 2. Local joint swelling. Will treat these with an injection. After obtaining verbal consent and prepping with Betadine, I injected 1.5 mL of 1% lidocaine and 20 mg of Kenalog into the right wrist and then also 1.5 mL of 1% lidocaine and 20 mg of Kenalog into the 3rd metacarpophalangeal joint. Immediate relief. Band- Aid applied. Call if redness, pain, or swelling. Otherwise she returns in a month. The time component today discussing polymyalgia rheumatica was 25 minutes, with 20 minutes counseling on polymyalgia rheumatica, sedimentation rates and how to proceed given the fact that they do not fall. Neda Hoffman M.D./kimmie Electronically Signed By: NEDA HOFFMAN MD On: 10/15/2016 02:15 PM Source: [facility] MHSDOLBEYNONRADSYS Document Id: [id number] documented in this encounter Miscellaneous Notes Miscellaneous - Neda Hoffman M.D. - 10/13/2016 11:04 AM CDT Ambulatory Patient Summary [address] [id number] Visit Information Name: JACOB ANDINO [facility] Number: [id number] Current Date: 10/13/2016 11:04:19 Physicians Attending Provider: NEDA HOFFMAN MD Primary [...] tablet) 1.5 Tablet(s), Oral, once a day Stop Taking the Following Medications: Medication list as of 10-13-16 11:04 Attention: If you have any medications at [...] Electronically Signed By: NEDA HOFFMAN MD Signed On:13-OCT-2016 11:03:37 Your Allergies & Intolerances Substance Reaction Symptoms [...] Your Upcoming Appointments Date Time Location Provider 10/31/2016 13:15 [facility] Neda Hoffman MD Attention: Contact your local Clinic if further [...] you dont have one. Go to [email or web address] and click on Create Your Account. Then, follow the directions to complete the online form. Youll be asked for your [facility] number which you can find at the top of this document. Your Goals/Additional instructions: Source: [facility] POWERCHART Document Id: [id number] Miscellaneous - Neda Hoffman M.D. - 10/13/2016 11:04 AM CDT Ambulatory Discharge Medication List [address] [id number] Visit Information Name: JACOB ANDINO [facility] Number: [id number] Current Date: 10/13/2016 11:04:18 Attending Provider: NEDA HOFFMAN MD Primary Care [...] tablet) 1.5 Tablet(s), Oral, once a day Stop Taking the Following Medications: Medication list as of 10-13-16 11:04 Attention: If you have any medications at [...] Electronically Signed By: NEDA HOFFMAN MD Signed On:13-OCT-2016 11:03:37 Additional Information: Source: [facility] POWERCHART Document Id: [id number] Miscellaneous - Levi Maloney L.P.N. - 10/13/2016 10:36 AM CDT Adult Utility Teller Intake/History Document Has Been Updated Adult Utility Teller Intake/History Entered On: 10/13/2016 10:40 CDT Performed On: 10/13/2016 10:36 CDT by LEVI MALONEY LPN Intake Chief Complaint : recheck polymalgia rheumatica Temperature Core : 36.5 DegC(Converted to: 97.7 DegF) LEVI MALOENY LPN - 10/13/2016 10:36 CDT Peripheral Pulse Rate : 80 /min LEVI MALONEY LPN - 10/13/2016 10:44 CDT Respiratory Rate : 16 /min Heart Rhythm : Regular Systolic Blood Pressure : 138 mmHg Diastolic Blood Pressure : 72 mmHg NIBP Mean : 94 mmHg BP Location : Left upper extremity Blood Pressure Cuff Size : Regular Height : 159 cm(Converted to: 5 ft 3 inch(es), 63 inch(es)) Actual Weight : 71.85 kg(Converted to: 158 lb 6 oz) Weight Source : Standing scale Dosing Weight Clinic : 71.85 kg Clinic BSA : 1.78 Body Mass Index : 28.42 kg/m2 LEVI MALONEY LPN - 10/13/2016 10:36 CDT General Info Information Given By : Patient Languages : Singaporean Is Patient Female and 13-50 no hysterectomy : No LEVI MALONEY LPN - 10/13/2016 10:36 CDT Subjective Pain Symptoms : No ELVI MALONEY CHRONOMETER ASSEMBLER - 10/13/2016 10:36 CDT Dependent Habits Exposure to Tobacco Smoke : Care provider denies smoking in home, Other: Never Smoking Status : Never smoker Tobacco 2A : No Tobacco Use/Currently Using : No Tobacco Use/Last 30 Days : No Tobacco Use/Last 12 months : No LEVI MALONEY CHRONOMETER ASSEMBLER - 10/13/2016 10:36 CDT Caffeine Use Grid Caffeine Use : Current Type : Coffee Frequency : Daily LEVI MALONEY GERARDO - 10/13/2016 10:36 CDT Recreational Drug Use Grid Drug Use : None LEVI MALONEY CHRONOMETER ASSEMBLER - 10/13/2016 10:36 CDT [facility] Document Id: [id number] CDT!3 documented in this encounter Plan of Treatment Not on filedocumented as of this encounter Visit Diagnoses Not on filedocumented in this encounter Additional Health Concerns Assessment Noted Time PHQ-9 Depression Total Score: 1 02/03/2016 8:15 AM CERTIFIED PEDIATRIC NURSE PRACTITIONER documented as of this encounter Care Teams Geotechnical Engineering Technician Relationship Specialty Start Date End Date Neda Hoffman M.D. PCP - General 09/08/16 11/16/[address] [place] [id number] documented as of this encounter
--- OUTSIDE RECORDS SUMMARY | 2022-02-28 01:44 | XMS_ITS | Encounter Summary ---
:1940 Author Organization [facility] Address [address] [place] [address] Care Team Providers Name Role Phone Neda Hoffman M.D. Primary Care Provider Encounter Details Date Type Department Care Team Description 11/29/2016 Hospital Encounter HX [facility] Regulo Hoffman M.D. [address] [place] [phone] (Wo rk) Social History Tobacco Use Types Packs/Day Years Used Date Smoking Tobacco: Never Sex Assigned at Date Recorded Female 09/25/2017 1:20 PM CDT documented as of this encounter Last Filed Vital Signs Vital Sign Reading Time Taken Comments Blood Pressure 180/88 11/29/2016 11:14 AM CDT Pulse 80 11/29/2016 11:08 AM CDT Temperature - - Respiratory Rate 16 11/29/2016 11:08 AM CDT Oxygen Saturation - - Inhaled Oxygen Concentration - - Weight 73.6 kg (162 lb 4.1 oz) 11/29/2016 11:08 AM CDT Height 159 cm (5' 2.6) 11/29/2016 11:14 AM CDT Body Mass Index 29.11 11/29/2016 11:08 AM CDT documented in this encounter Medications [...] encounter Progress Notes Neda Hoffman M.D. - 11/29/2016 10:59 AM CDT [id number] CHIEF COMPLAINT/REASON FOR VISIT Recheck on arthritic pains. Vanessa's blood pressure is very high today, but it turns out that she got sick when she took the losartan. She just could not take it with unusual symptoms, back ache, muscle pains and so on, so she stopped it and in stopping it she did get better. She has been off it about 2 weeks ago. Also, she became with terrible dreams on 0.3 mg of clonidine, so she cut it in half and at a half tablet she does well, but her blood pressure is very high today. Will have to use a completely different medicine. Her knee is hurting her today and she threw her knee out, she thinks, would like an injection there,but when there is any inflammation going on I do want to check her sedimentation rate and she has got a physical in 3 weeks and we can both recheck her blood pressure and her sedimentation rate at thattime presuming that there are no active joints. On the positive side, her hands are not hurting her and she otherwise feels reasonably well. It is only her right knee which is giving trouble. MEDICATIONS Per EMR. ALLERGIES Per EMR. SYSTEMS REVIEW Obtained, is negative except as mentioned above. PAST MEDICAL/SURGICAL HISTORY 1. Type 2 diabetes mellitus. 2. Mixed dyslipidemia. 3. Formidable DJD. 4. Malaise and fatigue. 5. Hypertension. 6. Polymyalgia rheumatica. 7. 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 8. Varicose veins in the leg with pedal edema. FAMILY HISTORY/SOCIAL HISTORY She is . She does not smoke or have anything but the rarest of social alcohol. PHYSICAL EXAMINATION VITAL SIGNS: Temperature is 36.7, heart rate 80, respiratory rate 16, blood pressure 180/88, and BMI29.11. HEENT: Conjunctivae and lids normal. PERRLA. EOMs normal. Sclerae nonicteric. Ophthalmologic exam grossly normal. TMs look okay bilaterally. Nares without erythema or congestion. Mouth without erythemaor exudate, no leuko or erythroplakia. Hearing grossly [...] or fourthsound, no significant murmur, no gallop. RIGHT KNEE: Reveals tenderness over the joint suture without redness or warmth. IMPRESSION/REPORT/PLAN 1. Hypertension, but the patient really is not taking any of her pills, so she will stay on a half of a clonidine pill at bedtime. Will add labetalol 200 mg 2 times a day and I will check her in 3 weeks. 2. Right knee pain. We will inject. I prepped with chlorhexidine and under aseptic conditions injected 3 mL of 1% lidocaine and 40 mg of Kenalog. There was immediate relief. Band-Aid applied. Call if pain, redness or swelling. 3. Polymyalgia rheumatica. When any joint is inflamed such as her knee I do not want to do a sedimentation rate, so presuming in 3 weeks that she is stable in her other joints and the knee has improved, we will check the sedimentation rate at that time. Prednisone will stay the same for the time being. There are no labs today. The patient has a physical scheduled in 3 weeks where we can recheck on these issues. Neda Hoffman M.D./kimmie Electronically Signed By: NEDA HOFFMAN MD On: 11/29/2016 01:05 PM Source: [facility] MHSDOLBEYNONRADSYS Document Id: [id number] documented in this encounter Miscellaneous Notes Miscellaneous - Donna Caldera L.PReginaNRegina - 11/29/2016 11:14 AM CDT Ambulatory Vitals Height Weight Ambulatory Vitals Height Weight Entered On: 11/29/2016 11:14 CDT Performed On: 11/29/2016 11:14 CDT by DONNA CALDERA LPN Vitals/Ht/Wt Systolic Blood Pressure : 180 mmHg (>HHI) Diastolic Blood Pressure : 88 mmHg NIBP Mean : 119 mmHg BP Location : Left upper extremity Blood Pressure Cuff Size : Regular Height : 159 cm(Converted to: 5 ft 3 inch(es), 63 inch(es)) DONNA CALDERA LPN - 11/29/2016 11:14 CDT Source: [facility] POWERCHART Document Id: [id number] CDT!8 Miscellaneous - Donna Caldera L.P.NRegina - 11/29/2016 11:08 AM CDT Adult Email Administrator Intake/History Adult Email Administrator Intake/History Entered On: 11/29/2016 11:12 CDT Performed On: 11/29/2016 11:08 CDT by DONNA CALDERA LPN Intake Chief Complaint : 1. Recheck 10/13/16 2. Stopped taking losartan 2 weeks ago 3. Right knee pain Temperature Core : 36.7 DegC(Converted to: 98.1 DegF) Peripheral Pulse Rate : 80 /min Respiratory Rate : 16 /min Heart Rhythm : Regular Systolic Blood Pressure : 188 mmHg (>HHI) Diastolic Blood Pressure : 90 mmHg (HI) NIBP Mean : 123 mmHg BP Location : Left upper extremity Blood Pressure Cuff Size : Regular Height : 159 cm(Converted to: 5 ft 3 inch(es), 63 inch(es)) Actual Weight : 73.60 kg(Converted to: 162 lb 4 oz) Weight Source : Standing scale Dosing Weight Clinic : 73.6 kg Clinic BSA : 1.8 Body Mass Index : 29.11 kg/m2 DONNA CALDERA PLUGGING MACHINE OPERATOR - 11/29/2016 11:08 CDT General Info Information Given By : Patient Preferred Communication Mode : Verbal, Written Languages : Japanese Is Patient Female and 13-50 no hysterectomy : No DONNA CALDERA [facility] - 11/29/2016 11:08 CDT Subjective Pain Symptoms : Yes DONNA CALDERA [facility] - 11/29/2016 11:08 CDT Pain Scale Pain Scale Verbal 0-10 : Open DONNA CALDERA [facility] - 11/29/2016 11:08 CDT Pain Pain Assessment Grid Pain 1 Location : Knee Laterality : Right Intensity : 9 DONNA CALDERA [facility] [address] - 11/29/2016 11:08 CDT Dependent Habits Exposure to Tobacco Smoke : Care provider denies smoking in home, Other: Never Smoking Status : Never smoker Tobacco 2A : No Tobacco Use/Currently Using : No Tobacco Use/Last 30 Days : No Tobacco Use/Last 12 months : No DONNA CALDERA [facility] [address] - 11/29/2016 11:08 CDT Caffeine Use Grid Caffeine Use : Current Type : Coffee Frequency : Daily DONNA CALDERA [facility] - 11/29/2016 11:08 CDT Recreational Drug Use Grid Drug Use : None DONNA CALDERA LPN - 11/29/2016 11:08 CDT Source: [employer] Document Id: [id number] CDT!48 documented in this encounter Plan of Treatment Not on filedocumented as of this encounter Visit Diagnoses Not on filedocumented in this encounter Additional Health Concerns Assessment Noted Time PHQ-9 Depression Total Score: 1 02/03/2016 8:15 AM RECOIL SPRING WINDER documented as of this encounter Care Teams Wash Tub Machine Operator Relationship Specialty Start Date End Date Neda Hoffman M.D. PCP - General 09/08/16 11/16/[address] [place] [address] THOMAS Guajardo [id number] documented as of this encounter
--- OUTSIDE RECORDS SUMMARY | 2022-02-28 01:44 | XMS_ITS | Encounter Summary ---
:1940 Author Organization [facility] Address [address] [place] [address] Care Team Providers Name Role Phone Eliseo Hoffman M.D. Primary Care Provider Encounter Details Date Type Department Care Team Description 12/15/2016 Hospital Encounter HX NO MAPPING Terrence Christine M.D. [address] [facility], [facility] [address] [phone] Social History Tobacco Use Types Packs/Day [...] Miscellaneous - Conversion, Historical Provider Ser - 12/15/2016 11:59 PM CDT Coding Summary-Paper Based CODING DATE: 12/29/2016 FINAL [facility] STATUS: * Discharged to Home or Self Care PAYOR: Medicare Advantage ADMIT DX: REASON FOR VISIT DX: FINAL DX: PRINCIPAL: R30.0 Dysuria SECONDARY: R35.0 Frequency of micturition PROCEDURES DOCTOR NAME DATE NOTE: The code number assigned matches the documented diagnosis and / or procedure in the patient's chart. However, the narrative phrase printed from the coding software may appear abbreviated, or result in slightly different terminology. Coded By: MENDEZ PRIETO Date Saved: 12/29/2016 12:20 pm Source: [employer] Document Id: [id number] documented in this encounter Plan of Treatment Not on filedocumented as of this encounter Visit Diagnoses Not on filedocumented in this encounter Additional Health Concerns Assessment Noted Time PHQ-9 Depression Total Score: 1 02/03/2016 8:15 AM CERAMIC COATER MACHINE documented as of this encounter Care Teams Boatwright Relationship Specialty Start Date End Date Eliseo Hoffman M.D. PCP - General 09/08/16 11/16/[address] [place] [phone] documented as of this encounter
--- OUTSIDE RECORDS SUMMARY | 2022-02-28 01:44 | XMS_ITS | Encounter Summary ---
:1940 Author Organization [facility] Address [address] [place] [address] Care Team Providers Name Role Phone Unavailable Primary Care Provider Unavailable Encounter Details Date Type Department Care Team Description 05/24/2016 Hospital Encounter HX [facility] JAMESMED Regulo Hoffman M.D. [address] [place] [address] 021 (Wo rk) Social History Tobacco Use Types Packs/Day Years Used Date Smoking Tobacco: Never Sex Assigned at Date Recorded Female 09/25/2017 1:20 PM CDT documented as of this encounter Last Filed Vital Signs Vital Sign Reading Time Taken Comments Blood Pressure 128/50 05/24/2016 1:22 PM [facility] [employer] [facility] [employer] Pulse 61 05/24/2016 1:22 PM [facility] [facility] Temperature - - Respiratory Rate 18 05/24/2016 1:22 PM [facility] [facility] Oxygen Saturation - - Inhaled Oxygen Concentration - - Weight 71.6 kg (157 lb 13.6 oz) 05/24/2016 1:22 PM [facility] [facility] [facility] Height 159 cm (5' 2.6) 05/24/2016 1:22 PM [employer] Body Mass Index 28.32 05/24/2016 1:22 PM [employer] documented in this encounter Medications at Time [...] encounter Progress Notes Neda Hoffman M.D. - 05/24/2016 12:48 PM CST [id number] CHIEF COMPLAINT/REASON FOR VISIT She is rechecking after her stimulation device implantation. 1. The patient has had her bladder implantation device placed and she is doing quite well. She has now got a remote control of that and she is emptying the bladder quite nicely. After a lot of fiddlingaround, the patient is impressed that the outcome is very good so I am happy for her on that. She has avoided self catheterization and other issues. Seems to be working well and the scar has healed nicely. 2. Hypertension. Her blood pressure control is excellent. If her electrolytes are balanced today, weare going to keep that the same and I will send in her medicines for her. She has complicated program however of all ARB and a spironolactone and we will have to make sure there is not hyperkalemia. 3. Polymyalgia rheumatica. I will check a sedimentation rate today. She is remote enough from her surgery and I am hoping we can start to lower her prednisone a little bit. She is still at 10 mg. 4. Adult-onset diabetes mellitus. I will check an A1c and make sure that the prednisone is not perturbing her sugars. She is completely diet-controlled. Last A1c was 6.5. MEDICATIONS See medicine list in EHR. ALLERGIES See EHR allergy list. SYSTEMS REVIEW Review of systems in all areas except as mentioned above is negative. PREVENTIVE SERVICES Per the Preventive Service component of the EMR. Handwashing done prior to patient contact. PAST MEDICAL/SURGICAL HISTORY Per the diagnosis and problem section of the EHR. VITAL SIGNS Per the nurses' documentation form for this visit. PHYSICAL EXAMINATION EENT: Conjunctivae and lids normal. [...] or fourthsound, no significant murmur, no gallop. SKIN: The scar over her right low back is well healed from her implantation. IMPRESSION/REPORT/PLAN Problems as follows: 1. Urinary retention, very much helped by implantation. Continue to follow with Urology. 2. Hypertension, well controlled. Check electrolytes today. 3. Adult-onset diabetes mellitus, diet-controlled at the moment but on prednisone for polymyalgia rheumatica. Check A1c and urine microalbumin. 4. Polymyalgia rheumatica. Check sedimentation rate and see if we can start lowering the prednisone.Patient today had a BMP, a sedimentation rate, an A1c and an urine microalbumin. We will call her with results. She will return in 6 weeks. Neda Hoffman M.D./kimmie Electronically Signed By: NEDA HOFFMAN MD On: 05/25/2016 07:31 AM Source: [facility] MHSDOLBEYNONRADSYS Document Id: [id number] [employer] documented in this encounter Miscellaneous Notes Miscellaneous - Neda Hoffman M.D. - 05/25/2016 7:32 AM CST Results Notification Document Contains Addenda Addendum by NEDA HOFFMAN MD on May 25, 2016 12:01:58 [employer] From: NEDA HOFFMAN MD To: NEDA HOFFMAN MD; Sent: 05/25/2016 12:01:58 [employer] Show up: 05/25/2016 12:01:00 [employer] Subject: RE: Results Notification its a micro albumin test and is normal. Addendum by ARUN MAR CMA on May 25, 2016 11:22:48 [employer] Spoke with: (X) Patient ( _ ) Parent ( _ ) Spouse ( _ ) Child ( ) Other: _ Call back telephone number: [phone] Reason for Call: -Results Chief Complaint: Told patient results below. Patient however wanted to know her UA results as well. Patient/Caller response to Education/Information given: (X) Verbalizes understanding of instructions ( _ ) Provide intervention per provider instruction ( _ ) Reinforce information already given ( _ ) Reinforce Plan of Care ( _ ) Provide preprinted information by mail (if applicable) Source/Reference used (if applicable): Dr. Neda Hoffman OK to leave message on voice mail? Yes OK to send message via patient portal? No Patient told to expect return call: ( _ ) today ( _ ) tomorrow ( _ ) next work day Callers preferred language for Healthcare discussion: Slovak Was an alley worker used for this call? No Other ( --_ ) From: NEDA HOFFMAN MD To: ANDRIA Hoffman Nurse; Sent: 05/25/2016 07:32:22 [employer] ! Show up: 05/25/2016 07:32:22 [employer] Subject: Results Notification Actions: Notify patient of results Reminder Comments: normal Results: Date Result Name Value Ref Range 05/24/2016 13:53 U Albumin <7.0 mg/L 05/24/2016 13:53 U Creatinine 39 mg/dL (29 - 226) 05/24/2016 13:53 U Alb/Creatinine Ratio notperformed mg/g (0 - 25) Source: [facility] POWERCHART Document Id: [id number] Miscellaneous - Neda Hoffman M.D. - 05/24/2016 4:12 PM CST Results Notification Document Contains Addenda Addendum by ARUN MAR CMA on May 25, 2016 11:21:41 [employer] Spoke with: (X) Patient ( _ ) Parent ( _ ) Spouse ( _ ) Child ( ) Other: _ Call back telephone number: [phone] Reason for Call: -Results Chief Complaint: Told patient results shown below. No further questions or concerns at this time. Patient/Caller response to Education/Information given: (X) Verbalizes understanding of instructions ( _ ) Provide intervention per provider instruction ( _ ) Reinforce information already given ( _ ) Reinforce Plan of Care ( _ ) Provide preprinted information by mail (if applicable) Source/Reference used (if applicable): Dr. Neda Hoffman OK to leave message on voice mail? Yes OK to send message via patient portal? No Patient told to expect return call: ( _ ) today ( _ ) tomorrow ( _ ) next work day Callers preferred language for Healthcare discussion: Slovak Was an alley worker used for this call? No Other ( --_ ) From: NEDA HOFFMAN MD To: ANDRIA Hoffman Nurse; Sent: 05/24/2016 16:12:01 [employer] ! Show up: 05/24/2016 16:12:01 [employer] Subject: Results Notification Actions: Notify patient of results Reminder Comments: ok no change in prednisone yet Results: Date Result Name Ind Value Ref Range 05/24/2016 13:53 Sodium Lvl 139 mmol/L (135 - 145) 05/24/2016 13:53 Potassium Lvl 4.6 mmol/L (3.6 - 5.2) 05/24/2016 13:53 Chloride (L) 92 mmol/L (98 - 107) 05/24/2016 13:53 CO2 28 mmol/L (22 - 29) 05/24/2016 13:53 AGAP (H) 19 mmol/L (7 - 15) 05/24/2016 13:53 Glucose Lvl 86 mg/dL (70 - 139) 05/24/2016 13:53 Creatinine (H) 1.15 mg/dL (0.60 - 1.10) 05/24/2016 13:53 EGFR (MDRD) (L) 46 mL/min/1.73m2 (>=60 - ) 05/24/2016 13:53 EGFR (MDRD) (L) 56 mL/min/1.73m2 (>=60 - ) 05/24/2016 13:53 BUN (H) 23 mg/dL (6 - 21) 05/24/2016 13:53 Calcium Lvl (H) 10.9 mg/dL (8.8 - 10.3) 05/24/2016 13:53 Hgb A1c (H) 6.5 % A1C ( - <=5.6) 05/24/2016 13:53 Sed Rate (H) 51 mm/hr (0 - 29) Source: [facility] POWERCHART Document Id: [id number] Miscellaneous - Neda Hoffman M.D. - 05/24/2016 1:45 PM CST Ambulatory Patient Summary [address] [id number] Visit Information Name: VANESSA ANDINO [facility] Number: [id number] Current Date: 05/24/2016 13:45:25 Physicians Attending Provider: NEDA HOFFMAN MD Primary [...] Tablet(s), Oral, once a day (at bedtime) Routed to [address] [address] desonide topical (desonide 0.05% topical cream) 1 ciara, Topical, two times a day furosemide (furosemide 40 mg oral tablet) 1 Tablet(s), Oral, once a day losartan (losartan 100 mg oral tablet) 1 Tablet(s), Oral, once a day Routed to [address] [address] multivitamin (multivitamin) Oral, once a day predniSONE (predniSONE 5 mg oral tablet) 2 Tablet(s), Oral, once a day spironolactone (spironolactone 50 mg oral tablet) 1 Tablet(s), Oral, once a day Routed to [address] [id number] Stop Taking the Following Medications: Medication list as of 05-24-16 13:45 Attention: If you have any medications at [...] Electronically Signed By: NEDA HOFFMAN MD Signed On:24-MAY-2016 13:45:10 Your Allergies & Intolerances Substance Reaction Symptoms [...] Your Upcoming Appointments Date Time Location Provider 06/13/2016 13:45 [facility] Urology Verónica Escalante CNP 07/05/2016 13:15 [facility] Neda Hoffman MD Attention: [...] if you dont have one. Go to [email or web address] and click on Create Your Account. Then, follow the directions to complete the online form. Youll be asked for your [facility] number which you can find at the top of this document. Your Goals/Additional instructions: Source: [facility] POWERCHART Document Id: [id number] [employer] Miscellaneous - Neda Hoffman M.D. - 05/24/2016 1:45 PM CST Ambulatory Discharge Medication List [address] [id number] Visit Information Name: OBINNAEARL BlueRAE ANDUJAREN [facility] Number: [id number] Current Date: 05/24/2016 13:45:24 Attending Provider: NEDA HOFFMAN MD Primary Care Provider: NEDA HOFFMAN MD KELLEEVANESSA DE LEON KAMRAN has been given the [...] Tablet(s), Oral, once a day (at bedtime) Routed to [address] [address] desonide topical (desonide 0.05% topical cream) 1 ciara, Topical, two times a day furosemide (furosemide 40 mg oral tablet) 1 Tablet(s), Oral, once a day losartan (losartan 100 mg oral tablet) 1 Tablet(s), Oral, once a day Routed to [address] [address] multivitamin (multivitamin) Oral, once a day predniSONE (predniSONE 5 mg oral tablet) 2 Tablet(s), Oral, once a day spironolactone (spironolactone 50 mg oral tablet) 1 Tablet(s), Oral, once a day Routed to [address] [address] Stop Taking the Following Medications: Medication list as of 05-24-16 13:45 Attention: If you have any medications at [...] Electronically Signed By: NEDA HOFFMAN MD Signed On:24-MAY-2016 13:45:10 Additional Information: Source: [facility] POWERCHART Document Id: [id number] [employer] Miscellaneous - Arun Edwards, C.MReginaARegina - 05/24/2016 1:22 PM CST 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 Entered On: 05/24/2016 13:25 [employer] Performed On: 05/24/2016 13:22 [employer] by ARUN MAR [facility] Intake Chief Complaint : Follow up Temperature Core : 36.4 DegC(Converted to: 97.5 DegF) (LOW) Peripheral Pulse Rate : 61 /min Respiratory Rate : 18 /min Heart Rhythm : Regular Systolic Blood Pressure : 128 mmHg Diastolic Blood Pressure : 50 mmHg (LOW) NIBP Mean : 76 mmHg BP Location : Left upper extremity Blood Pressure Cuff Size : Regular Height : 159 cm(Converted to: 5 ft 3 inch(es), 63 inch(es)) Actual Weight : 71.60 kg(Converted to: 157 lb 14 oz) Weight Source : Standing scale Dosing Weight Clinic : 71.6 kg Clinic BSA : 1.78 Body Mass Index : 28.32 kg/m2 ARUN MAR CMA - 05/24/2016 13:22 [employer] General Info Information Given By : Patient Preferred Communication Mode : Verbal Languages : Slovak Is Patient Female and 13-50 no hysterectomy : No ARUN MAR CMA - 05/24/2016 13:22 [employer] Subjective Pain Symptoms : No ARUN MAR [facility] - 05/24/2016 13:22 [employer] Dependent Habits Exposure to Tobacco Smoke : Care provider denies smoking in home, Other: Never Smoking Status : Never smoker Tobacco 2A : No Tobacco Use/Currently Using : No Tobacco Use/Last 30 Days : No Tobacco Use/Last 12 months : No ARUN MAR [facility] - 05/24/2016 13:22 [employer] Caffeine Use Grid Caffeine Use : Current Type : Coffee Frequency : Daily ARUN MAR [facility] - 05/24/2016 13:22 [employer] Recreational Drug Use Grid Drug Use : None ARUN MAR [facility] 05/24/2016 13:22 [employer] Source: [facility] POWERCHART Document Id: [id number] [employer]!40 [employer] documented in this encounter Plan of Treatment Not on filedocumented as of this encounter Procedures Procedure Name Priority Date/Time Associated Comments Diagnosis ALBUMIN, RANDOM, U Routine 05/24/2016 1:53 PM Res ults for this [employer] procedure are i n the results section. SEDIMENTATION RATE, B Routine 05/24/2016 1:53 PM Results for this [employer] procedure are i n the results section. HEMOGLOBIN A1C, B Routine 05/24/2016 1:53 PM Resu lts for this [employer] procedure are i n the results section. BASIC METABOLIC PANEL, Routine 05/24/2016 1:53 PM Results for this S/P [employer] procedure are i n the results section. documented in this encounter Results (ABNORMAL) Sedimentation Rate (05/24/2016 1:53 PM [employer]) Patholo gist Method Time Signature Sedimentation 51 (H) 0 - 29 POWERCHART Rate, B MMHR Specimen (Source) Anatomical Collection Method Collection Time Re ceived Time Location / / Volume Laterality Blood 05/24/2016 1:53 PM [employer] Neda Hoffman M.D. LAB BLOOD ADD-ON Performing Organization Address City/State/ZIP Code Phon e Number POWERCHART Microalbumin, Random, Urine (05/24/2016 1:53 PM [employer]) P athologist Signature Creatinine, 39 29 - 226 POWERCHART Random, U MGDL HXU Albumin % <7.0 MGL POWERCHART Comment: Result is below the linear limi t of test method.Calculation not performed. Albumin/Creatinine Ratio notperformed 0 - 25 MGG P OWERCHART Specimen (Source) Anatomical Collection Method Collection Time Re ceived Time Location / / Volume Laterality Urine 05/24/2016 1:53 PM [employer] Neda Hoffman M.D. LAB URINE ORDERABLES Performing Organization Address City/State/[facility] Code Phon e Number POWERCHART (ABNORMAL) BMP (Basic Metabolic Panel) (05/24/2016 1:53 PM [employer]) athologist Signature Sodium, S 139 135 - 145 POWERCHART MMOLL Potassium, S 4.6 3.6 - 5.2 POWERCHART MMOLL Chloride, S 92 (L) 98 - 107 POWERCHART MMOLL CO2 Total 28 22 - 29 POWERCHART MMOLL Comment: Reference ranges have not been established for patients that are <12 months of age. BUN (Blood Urea Nitrogen), S 23 (H) 6 - 21 MGDL POWERCHART Creatinine 1.15 (H) 0.60 - 1.10 MGDL POWERCHART Calcium, Total, S 10.9 (H) 8.8 - 10.3 MGDL POWERC CIFUENTES Anion Gap 19 (H) 7 - 15 MMOLL POWERCHART HXeGFR (MDRD) 46 (L) >=60 [id number] POWERCHART eGFR Black/ 56 (L) >=60 [id number] POWERCHART Glucose 86 70 - 139 MGDL POWERCHART Specimen (Source) Anatomical Collection Method Collection Time Re ceived Time Location / / Volume Laterality Blood 05/24/2016 1:53 PM [employer] Neda Hoffman M.D. LAB BLOOD ADD-ON Performing Organization Address City/State/ZIP Code Phon e Number POWERCHART (ABNORMAL) Hemoglobin A1c (05/24/2016 1:53 PM [employer]) athologist Signature Hemoglobin A1c, 6.5 (H) <=5.6 A1C POWERCHART B Specimen (Source) Anatomical Collection Method Collection Time Re ceived Time Location / / Volume Laterality Blood 05/24/2016 1:53 PM [employer] Neda M Dalton M.D. LAB BLOOD ADD-ON Performing Organization Address City/State/ZIP Code Phon e Number POWERCHART documented in this encounter Visit Diagnoses Not on filedocumented in this encounter Additional Health Concerns Assessment Noted Time PHQ-9 Depression Total Score: 1 02/03/2016 8:15 AM [employer] documented as of this encounter
--- OUTSIDE RECORDS SUMMARY | 2022-02-28 01:44 | XMS_ITS | Encounter Summary ---
:1940 Author Organization [facility] Address [address] [place] [address] Care Team Providers Name Role Phone Unavailable Primary Care Provider Unavailable Encounter Details Date Type Department Care Team Description 04/22/2016 Hospital Encounter HX [facility] Javier Knowles, LARS, C.N.P. [address] [place] [address] (Wo rk) Social History Tobacco Use Types Packs/Day Years Used Date Smoking Tobacco: Never Sex Assigned at Date Recorded Female 09/25/2017 1:20 PM CDT documented as of this encounter Last Filed Vital Signs Vital Sign Reading Time Taken Comments Blood Pressure 126/74 04/22/2016 8:07 AM BOBBIN DUMPER Pulse 80 04/22/2016 8:07 AM BOBBIN DUMPER Temperature - - Respiratory Rate - - [...] Progress Notes Chadwick Knowles APRN, R.N. - 04/22/2016 7:40 AM CST [id number] CHIEF COMPLAINT/REASON FOR VISIT Urinary urgency and frequency with urinary retention. HISTORY OF PRESENT ILLNESS Vanessa is a pleasant 75-year-old female here today for a recheck after and an office InterStim trial. She had bilateral leads placed on MondayApril [address] Groves. She feels that she was able to empty her bladder better. She feels that her urgency and frequency were improved and she feels that she does not have to hurry to get to the bathroom as much. She did report that she was having some diarrhea and chills but she thinks that she had a virus at the time. This resolved without any intervention or medication changes. This did cause her some anxiety just because she was worried that itwould dislodge or come out of place but otherwise she thought that it was quite helpful. She really does not want to catheterize and because of this we are not able to see what her postvoid residuals are but she does feel that she had quite an improvement with this trial. MEDICATIONS Aspirin 81 mg 1 tablet daily. Calcium 600 plus D daily. Clonidine 0.3 mg oral tablet 1 tablet at bedtime. Desonide 0.05% topical cream 2 times a day. Furosemide 40 mg oral tablet 1 tablet daily. Losartan 100 mg oral tablet 1 tablet daily. Multivitamin daily. Prednisone 5 mg oral tablet 2 tablets daily. Spironolactone 50 mg oral tablet 1 tablet daily. ALLERGIES Oxycodone and sulfa drugs. PAST MEDICAL/SURGICAL HISTORY Hyperlipidemia, type 2 diabetes, degenerative joint disease, fatigue, hypertension, polymyalgia rheumatica, urinary retention, varicose veins of the legs with edema. VITAL SIGNS Temperature 36.8, heart rate 80, blood pressure 126/74. Not a tobacco user. PHYSICAL EXAMINATION GENERAL: Well-developed well-nourished well-groomed 75-year-old female, in no acute distress. She isalert, cooperative and oriented x3. HEAD: Normal appearance with no abnormalities. NECK: Symmetrical and supple. CARDIAC: Regular rate. Regular rhythm. RESPIRATORY: Respirations unlabored. Normal respiratory rate. Normal respiratory movement. ABDOMEN: Soft, nontender, nondistended. EXTREMITIES: Warm without edema or ulcerations. DIAGNOSTICS Please see bladder diary which will be scanned into EMR. Postvoid residual 526 mL. PROCEDURE: Guidewires are removed bilaterally without incident. Patient tolerated the procedure well. IMPRESSION/REPORT/PLAN Urinary retention with urgency and frequency status post office trial of sacral nerve neuromodulation. At this time Vanessa seems to have good improvement of her symptoms; however, she is still not emptying her bladder well. We did discuss that because we did not do postvoid residuals during the earlierdays of the trial that it could have been that she was emptying her bladder towards the beginning. We discussed that there are 3 possible options now. First is we could do nothing and keep things as they are and wait for them to get worse. The second option would be that we could do an advanced trial where we would place the actual lead that is kept in after full implementation and the third thing that we could do is we could implant. This is heard choice. We discussed the actual procedure, medications that would be used, benefits and side effects. She would like to think about this. She has an appointment to see me again on May 16 in [place] and we will discuss this again at that time. Any time that she decides that she is ready to go forward with full implantation she will let us know and we can go forward with that. We would like to keep following her regardless in the event that herurinary retention gets worse. She is in agreement with the plans that we have made today. Chadwick Knowles NSena/kimmie Electronically Signed By: CHADWICK KNOWLES APRN, RN On: 04/22/2016 03:30 PM Source: [facility] MHSDOLBEYNONRADSYS Document Id: [id number] IN DUMPER documented in this encounter Miscellaneous Notes Miscellaneous - Conversion, Historical Provider Ser - 04/26/2016 9:52 AM BOBBIN DUMPER SURGERY DATE Document Contains Addenda Addendum by ZENAIDA KELLOGG LPN on April 26, 2016 10:35:16 BOBBIN DUMPER Noted. From: YOANA AQUINO ( Surgery Coordinator) To: Urology Nurse; NEDA BECK MD; Sent: 04/26/2016 09:52:31 BOBBIN DUMPER Subject: SURGERY DATE Caller is: ( ) Patient ( ) Mother ( ) Father ( ) Spouse ( ) Daughter ( ) Son ( ) Pharmacy ( ) Other: Physician: GRETTA Patient MRN #: Reason for Call: PRE OP 04/27/16 KIRAN Message: S: SURGERY DATE: 05/04/16 STAGE ONE NILOM GRETTA B: REQUEST FOR SURGERY: A: RISK ASSESMENT:NOT NOTED ANESTHESIA:GENERAL R: HOSPITAL WILL CALL WITH ARRIVAL TIME Advice/Action: Source used: ( ) Verbalizes understanding [...] back cell phone number ( ) Source: [facility] StudyBlue Document Id: [id number] Miscellaneous - Chadwick Knowles APRN, R.N. - 04/22/2016 9:42 AM BOBBIN DUMPER Ambulatory Patient Summary [address] [id number] Visit Information Name: VANESSA ANDINO [facility] Number: [id number] Current Date: 04/22/2016 09:42:41 Physicians Attending Provider: CHADWICK KNOWLES APRN, production machine shop supervisor Provider: NEDA BECK MD BHARATHEARLRAE ANDREW has been given the following list [...] the Following Medications: Medication list as of 04-22-16 09:42 Attention: If you have any medications at [...] Signed By: CHADWICK KNOWLES APRN, RN Signed On:22-APR-2016 09:42:36 Your Allergies & Intolerances Substance Reaction Symptoms [...] Your Upcoming Appointments Date Time Location Provider 05/16/2016 13:15 [facility] Chadwick Knowles CNP Attention: Contact your local Clinic if [...] if you dont have one. Go to [email or web address] and click on Create Your Account. Then, follow the directions to complete the online form. Youll be asked for your [facility] number which you can find at the top of this document. Your Goals/Additional instructions: Source: [facility] POWERCHART Document Id: [id number] IN DUMPER Miscellaneous - Chadwick Knowles APRN RJeff. - 04/22/2016 9:42 AM BOBBIN DUMPER Ambulatory Discharge Medication List [address] [id number] Visit Information Name: BHARATH VANESSACHARLEY ANDUJAREN [facility] Number: [id number] Current Date: 04/22/2016 09:42:38 Attending Provider: CHADWICK KNOWLES APRN, production machine shop supervisor Provider: NEDA BECK MD VANESSA ANDINO has been given the [...] the Following Medications: Medication list as of 04-22-16 09:42 Attention: If you have any medications at [...] Signed By: CHADWICK KNOWLES APRN, RN Signed On:22-APR-2016 09:42:36 Additional Information: Source: [facility] POWERCHART Document Id: [id number] IN DUMPER Miscellaneous - Zenaida Kellogg L.PReginaN. - 04/22/2016 8:07 AM CST Adult Time Broker Intake/History Adult Time Broker Intake/History Entered On: 04/22/2016 8:15 BOBBIN DUMPER Performed On: 04/22/2016 8:07 BOBBIN DUMPER by ZENAIDA KELLOGG LPN Intake Chief Complaint : recheck interstim-patient states easier to urinate without straining and urgency is gone Temperature Core : 36.8 DegC(Converted to: 98.2 DegF) Peripheral Pulse Rate : 80 /min Systolic Blood Pressure : 126 mmHg Diastolic Blood Pressure : 74 mmHg NIBP Mean : 91 mmHg BP Location : Left upper extremity Blood Pressure Cuff Size : Regular ZENAIDA KELLOGG LPN - 04/22/2016 8:07 BOBBIN DUMPER General Info Information Given By : Patient Preferred Communication Mode : Verbal Languages : Lithuanian Is Patient Female and 13-50 no hysterectomy : No ZENAIDA KELLOGG LPN - 04/22/2016 8:07 BOBBIN DUMPER Subjective Pain Symptoms : No ZENAIDA KELLOGG LPN - 04/22/2016 8:07 BOBBIN DUMPER Dependent Habits Exposure to Tobacco Smoke : Care provider denies smoking in home, Other: Never Smoking Status : Never smoker Tobacco 2A : No Tobacco Use/Currently Using : No Tobacco Use/Last 30 Days : No Tobacco Use/Last 12 months : No Alcohol Use : No ZENAIDA KELLOGG LPN - 04/22/2016 8:07 BOBBIN DUMPER Caffeine Use Grid Caffeine Use : Current Type : Coffee Frequency : Daily ZENAIDA KELLOGG LPN - 04/22/2016 8:07 BOBBIN DUMPER Recreational Drug Use Grid Drug Use : None ZENAIDA KELLOGG LPN - 04/22/2016 8:07 BOBBIN DUMPER Source: [facility] StudyBlue Document Id: [id number] BOBBIN DUMPER!33 IN DUMPER documented in this encounter Plan of Treatment Not on filedocumented as of this encounter Visit Diagnoses Not on filedocumented in this encounter Additional Health Concerns Assessment Noted Time PHQ-9 Depression Total Score: 1 02/03/2016 8:15 AM BOBBIN DUMPER documented as of this encounter
--- OUTSIDE RECORDS SUMMARY | 2022-02-28 01:44 | XMS_ITS | Encounter Summary ---
:1940 Author Organization [facility] Address [address] [place] [address] Care Team Providers Name Role Phone Unavailable Primary Care Provider Unavailable Encounter Details Date Type Department Care Team Description 05/06/2016 Hospital Encounter HX [facility] Javier Knowles, LARS, C.N.P. [address] [place] [address] (Wo rk) Social History Tobacco Use Types Packs/Day Years Used Date Smoking Tobacco: Never Sex Assigned at Date Recorded Female 09/25/2017 1:20 PM CDT documented as of this encounter Last Filed Vital Signs Vital Sign Reading Time Taken Comments Blood Pressure 134/72 05/06/2016 1:[address] OPERATIONS CLERK Pulse 84 05/06/2016 1:[address] OPERATIONS CLERK Temperature - - Respiratory Rate - [...] Progress Notes Chadwick Knowles APRN, R.N. - 05/06/2016 1:30 PM CST [id number] CHIEF COMPLAINT/REASON FOR VISIT Urinary retention. HISTORY OF PRESENT ILLNESS Zoe is a pleasant 75-year-old female here today for a recheck of her InterStim. She had an advanced trial placement performed on Monday. At that time she had a postvoid residual of 600. On day 2, she had a postvoid residual of approximately 400. She is here today to recheck her postvoid residual. MEDICATIONS Reviewed per EMR. ALLERGIES Reviewed per EMR. PAST MEDICAL/SURGICAL HISTORY Reviewed per EMR. VITAL SIGNS Temperature 37.0, heart rate 84, blood pressure 134/72. Not a tobacco user. DIAGNOSTICS Postvoid residual is 212 mL. IMPRESSION/REPORT/PLAN Urinary retention status post advanced trial of InterStim. Her postvoid residuals have continued to improve. She is doing quite well. Last night she actually slept 8 hours without having to get up and use the bathroom. She is quite pleased with this. She is not having a lot of trouble with urgency and frequency. She has never really felt that she has urinary retention because she has a bit of an atonic bladder. However, her urinary retention has continued toimprove. We will see her again in clinic on Monday and at that time we will decide if we are going to remove the InterStim or if we are going to continue with it. At this point if she continues to haveimprovement, I would recommend full implantation of the InterStim device. All of her questions are answered today. She is in agreement with the plans that we have made. She did note that she was havinga bit of incisional pain and took a Tylenol. This is absolutely fine. If she needs more Tylenol, sheis definitely welcome to take that. She will contact us if she needs anything else. Otherwise, we will see her on Monday. Chadwick Knowles, N.Shanta/kimmie Electronically Signed By: CHADWICK KNOWLES APRN, RN On: 05/16/2016 03:31 PM Source: [facility] MHSDOLBEYNAMRILUZSYJake Document Id: [id number] T OPERATIONS CLERK documented in this encounter Miscellaneous Notes Miscellaneous - Chadwick Knowles APRN, R.N. - 05/08/2016 6:[address] OPERATIONS CLERK Ambulatory Patient Summary [facility] [address] [place], [place] [phone] Visit Information Name: VANESSA ANDINO [facility] Number: [id number] Current Date: 05/08/2016 18:33:30 Physicians Attending Provider: CHADWICK KNOWLES APRN casing worker Provider: NEDA BECK MD VANESSA ANDINO has [...] the Following Medications: Medication list as of 05-08-16 18:33 Attention: If you have any medications at [...] Signed By: CHADWICK KNOWLES APRN, RN Signed On:08-MAY-2016 18:33:24 Your Allergies & Intolerances Substance Reaction Symptoms [...] Appointments Date Time Location Provider 05/09/2016 09:15 [facility] Chadwick Knowles CNP 05/16/2016 13:15 [facility] Chadwick Knowles CNP 05/24/2016 13:30 [facility] GENTILE, Neda Varela Attention: [...] Youll be asked for your [facility] number which you can find at the top of this document. Your Goals/Additional instructions: Source: [facility] POWERCHART Document Id: [id number] T OPERATIONS CLERK Miscellaneous - Chadwick Knowles APRN, R.N. - 05/08/2016 6:[address] OPERATIONS CLERK Ambulatory Discharge Medication List [facility] [address] [place] [id number] Visit Information Name: VANESSA ANDINO [facility] Number: [id number] Current Date: 05/08/2016 18:33:28 Attending Provider: CHADWICK KNOWLES APRN, casing worker Provider: NEDA BECK MD VANESSA ANDINOEN has [...] the Following Medications: Medication list as of 05-08-16 18:33 Attention: If you have any medications at [...] Signed By: CHADWICK KNOWLES APRN, RN Signed On:08-MAY-2016 18:33:24 Additional Information: Source: [facility] POWERCHART Document Id: [id number] T OPERATIONS CLERK Miscellaneous - Spencer Nation C.NReginaARegina - 05/06/2016 1:42 PM CST Adult Web Analytics Developer Intake/History Document Has Been Updated Adult Web Analytics Developer Intake/History Entered On: 05/06/2016 13:44 [address] OPERATIONS CLERK Performed On: 05/06/2016 13:42 COURT OPERATIONS CLERK by SPENCER NATION CNA Intake Chief Complaint : recheck Temperature Core : 37.0 DegC(Converted to: 98.6 DegF) Peripheral Pulse Rate : 84 /min SHAN, SPENCER Varela CNA - 05/06/2016 13:42 [address] OPERATIONS CLERK Systolic Blood Pressure : 134 mmHg Diastolic Blood Pressure : 72 mmHg NIBP Mean : 93 mmHg SHAN, SPENCER Varela CNA - 05/06/2016 13:45 [address] OPERATIONS CLERK General Info Information Given By : Patient Languages : Polish Is Patient Female and 13-50 no hysterectomy : SPENCER Lamb CNA - 05/06/2016 13:42 [address] OPERATIONS CLERK Subjective Pain Symptoms : SPENCER Lamb CNA - 05/06/2016 13:42 [address] OPERATIONS CLERK Dependent Habits Exposure to Tobacco Smoke : Care provider denies smoking in home, Other: Never Smoking Status : Never smoker Tobacco 2A : No Tobacco Use/Currently Using : No Tobacco Use/Last 30 Days : No Tobacco Use/Last 12 months : SPENCER Lamb CNA - 05/06/2016 13:42 [address] OPERATIONS CLERK Caffeine Use Grid Caffeine Use : Current Type : Coffee Frequency : Daily SPENCER NATION CNA - 05/06/2016 13:42 [address] OPERATIONS CLERK Recreational Drug Use Grid Drug Use : None SPENCER NATION CNA - 05/06/2016 13:42 [address] OPERATIONS CLERK Source: [facility] POWERCHART Document Id: [id number] COURT OPERATIONS CLERK!5 T OPERATIONS CLERK documented in this encounter Plan of Treatment Not on filedocumented as of this encounter Visit Diagnoses Not on filedocumented in this encounter Additional Health Concerns Assessment Noted Time PHQ-9 Depression Total Score: 1 02/03/2016 8:[address] OPERATIONS CLERK documented as of this encounter
--- OUTSIDE RECORDS SUMMARY | 2022-02-28 01:45 | XMS_ITS | Encounter Summary ---
:1940 Author Organization [facility] Address [address] [place] [address] Care Team Providers Name Role Phone Unavailable Primary Care Provider Unavailable Encounter Details Date Type Department Care Team Description 11/10/2015 Hospital Encounter HX [facility] Regulo Hoffman M.D. [address] [place] [address] 021 (Wo rk) Social History Tobacco Use Types Packs/Day Years Used Date Smoking Tobacco: Never Assessed Sex Assigned at Date Recorded Female 09/25/2017 [...] Notes Miscellaneous - Neda Hoffman M.D. - 11/10/2015 2:37 PM CDT Results Notification Document Contains Addenda Addendum by LEVI OLIVAS LPN on November 10, 2015 14:58:07 CDT patient called will schedule appt to be seen From: NEDA HOFFMAN MD To: ANDRIA Hoffman Nurse; Sent: 11/10/2015 14:37:12 CDT ! Show up: 11/10/2015 14:37:12 CDT Subject: Results Notification Actions: Notify patient of results Reminder Comments: dsregard and see rosalian 3 to 4 weeks Results: Date Result Name Ind Value Ref Range 11/10/2015 11:07 Sed Rate (H) 54 mm/hr (0 - 29) Source: [facility] POWERCHART Document Id: [id number] Electronically signed by Conversion, [facility] Billboard Poster [id number] at 08/21/2016 1:14 AM CDT documented in this encounter Plan of Treatment Not on filedocumented as of this encounter Procedures Procedure Name Priority Date/Time Associated Comments Diagnosis SEDIMENTATION RATE, B Routine 11/10/2015 11:07 Re sults for this AM CDT procedure are i n the results section. documented in this encounter Results (ABNORMAL) Sedimentation Rate (11/10/2015 11:07 AM CDT) [facility] gist Method Time Signature Sedimentation 54 (H) 0 - 29 POWERCHART Rate, B MMHR Specimen (Source) Anatomical Collection Method Collection Time Re ceived Time Location / / Volume Laterality Blood 11/10/2015 11:07 AM CDT Neda Hoffman M.D. LAB BLOOD ADD-ON Performing Organization Address City/State/ZIP Code Phon e Number POWERCHART documented in this encounter Visit Diagnoses Not on filedocumented in this encounter
--- OUTSIDE RECORDS SUMMARY | 2022-02-28 01:45 | XMS_ITS | Encounter Summary ---
:1940 Author Organization [facility] Address [address] [place] [address] Care Team Providers Name Role Phone Unavailable Primary Care Provider Unavailable Encounter Details Date Type Department Care Team Description 08/18/[address] [facility] [place]HB INTERNMED Regulo Hoffman M.D. [address] [place] [address] 021 (Wo rk) Social History Tobacco Use Types Packs/Day Years Used Date Smoking Tobacco: Never Assessed Sex Assigned at Date Recorded Female 09/25/2017 1:20 PM CDT documented as of this encounter Last Filed Vital Signs Vital Sign Reading Time Taken Comments Blood Pressure 134/78 08/18/2015 12:51 PM CDT Pulse 88 08/18/2015 12:51 PM CDT Temperature - - Respiratory Rate 16 08/18/2015 12:51 PM CDT Oxygen Saturation - - Inhaled Oxygen Concentration - - Weight 73 kg (160 lb 15 oz) 08/18/2015 12:51 PM CDT Height 156 cm (5' 1.42) 08/18/2015 12:51 PM CDT Body Mass Index 30 08/18/2015 12:51 PM CDT documented in this encounter Medications [...] encounter Progress Notes Neda Hoffman M.D. - 08/18/2015 12:40 PM CDT [id number] CHIEF COMPLAINT/REASON FOR VISIT Recheck on polymyalgia rheumatica. The patient has done very well with the prednisone. Her aches and pains are gone. She feels good. Unfortunately she is gaining weight and getting most of the side effects of prednisone. She has also developed glucose intolerance. She does watch her diet as best she can and if the sedimentation rate isgood today we will be able to drop down on the prednisone. She is at 12.5 mg at the moment but I would like the sedimentation rate to be checked before we do that. I will check some other labs as well.She otherwise is constipated and I told her to try MiraLAX and gave her some pointers on that. MEDICATIONS See medicine list in EHR. ALLERGIES [...] documentation form for this visit. PHYSICAL EXAMINATION HEENT: Eyes: Conjunctiva and lids [...] fourth sound, no significant murmur, no gallop. IMPRESSION/REPORT/PLAN She has gained weight from prednisone, also glucose intolerance and diabetes. Will check a fructosamine level today, a BMP and a sedimentation rate. If the sedimentation rate is acceptable will drop to10 mg of prednisone and then recheck the sedimentation rate in 6 weeks. She will use MiraLAX as needed for constipation. Neda Hoffman M.D./kimmie Electronically Signed By: NEDA HOFFMAN MD On: 08/19/2015 08:59 AM Source: [facility] MHSDOLBEYNONRADSYS Document Id: [id number] documented in this encounter Miscellaneous Notes Miscellaneous - Neda Hoffman M.D. - 08/19/2015 8:19 AM CDT Results Notification Document Contains Addenda Addendum by LEVI MALONEY LPN on August 19, 2015 08:27:17 CDT called with results From: NEDA HOFFMAN MD To: ANDRIA Hoffman Nurse; Sent: 08/19/2015 08:19:22 CDT ! Show up: 08/19/2015 08:19:22 CDT Subject: Results Notification Actions: Notify patient of results Reminder Comments: ok Results: Date Result Name Value Ref Range 08/18/2015 13:17 Fructosamine-Wick 249 mcmol/L (200 - 285 - ) Source: [facility] POWERCHART Document Id: [id number] Miscellaneous - Neda Hoffman M.D. - 08/18/2015 4:11 PM CDT Results Notification Document Contains Addenda Addendum by LEVI MALONEY LPN on August 18, 2015 16:44:06 CDT called with results From: NEDA HOFFMAN MD To: ANDRIA Hoffman Nurse; Sent: 08/18/2015 16:11:58 CDT ! Show up: 08/18/2015 16:11:58 CDT Subject: Results Notification Actions: Notify patient of results Reminder Comments: ok Results: Date Result Name Ind Value Ref Range 08/18/2015 13:17 Sodium Lvl 137 mmol/L (135 - 145) 08/18/2015 13:17 Potassium Lvl 4.9 mmol/L (3.6 - 5.2) 08/18/2015 13:17 Chloride (L) 96 mmol/L (98 - 107) 08/18/2015 13:17 CO2 24 mmol/L (22 - 29) 08/18/2015 13:17 AGAP (H) 17 mmol/L (7 - 15) 08/18/2015 13:17 Glucose Lvl (H) 173 mg/dL (70 - 139) 08/18/2015 13:17 Creatinine 1.1 mg/dL (0.6 - 1.1) 08/18/2015 13:17 EGFR (MDRD) (L) 49 mL/min/1.73m2 (>=60 - ) 08/18/2015 13:17 EGFR (MDRD) (L) 59 mL/min/1.73m2 (>=60 - ) 08/18/2015 13:17 BUN (H) 25 mg/dL (6 - 21) 08/18/2015 13:17 Calcium Lvl 10.0 mg/dL (8.8 - 10.3) Source: [facility] tribrCHART Document Id: [id number] Electronically signed by Pj, [facility] Spout Worker [id number] at 08/20/2016 2:20 PM CDT Miscellaneous - Neda Hoffman M.D. - 08/18/2015 3:21 PM CDT Results Notification Document Contains Addenda Addendum by LEVI MAOLNEY LPN on August 18, 2015 16:44:24 CDT patient called From: NEDA HOFFMAN MD To: ANDRIA Hoffman Nurse; Sent: 08/18/2015 15:21:05 CDT ! Show up: 08/18/2015 15:21:05 CDT Subject: Results Notification Actions: Notify patient of results Reminder Comments: try 10 mg and recheck 6 weeksa with a sed rate Results: Date Result Name Ind Value Ref Range 08/18/2015 13:17 Sed Rate (H) 32 mm/hr (0 - 29) Source: [facility] POWERCHART Document Id: [id number] Electronically signed by Pj, [facility] Spout Worker [id number] at 08/20/2016 2:20 PM CDT Miscellaneous - Neda Hoffman M.D. - 08/18/2015 1:07 PM CDT Ambulatory Patient Summary [address] [place], [place] [id number] Visit Information Name: VANESSA ANDINO [facility] Number: [id number] Current Date: 08/18/2015 13:07:58 Physicians Attending Provider: NEDA HOFFMAN MD Primary [...] day predniSONE (predniSONE 5 mg oral tablet) 2.5 Tablet(s), Oral, once a day spironolactone (spironolactone 50 mg oral tablet) 1 Tablet(s), Oral, once a day Stop Taking the Following Medications: Medication list as of 08-18-15 13:07 Attention: If you have any medications at home that are not on this list, DO NOT take them until youcontact your provider for clarification. Give a copy of your medication list to your primary care provider. Update your medication list any time medications or doses are changed and carry your medication list at all times in case of emergency. 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 Your Diabetes Toolkit Do you find it hard to keep track of your supplies? Make it easy by creating a diabetes toolkit. Find a small makeup or travel bag. Then fill it with what you need to care for your diabetes. The list of supplies below can help you get started. What to Include in Your Toolkit ?? [id number] insulin, syringes, pens, or insulin pump supplies ?? Other medications you take for diabetes-related problems ?? Copies of all prescriptions ?? The pharmacy label that came with your insulin (this is needed for air travel) ?? Fast-acting sugar, such as glucose tablets, for hypoglycemia ?? Glucagon for severe hypoglycemia ?? A blood glucose meter, lancets, test strips, and a log book ?? Extra batteries for your meter ?? An ID card that says you have diabetes and lists emergency contact numbers ?? [id number] [facility], [address] [place] [address]. All rights reserved. This information is not intended as a substitute for professional medical care. Always follow your healthcare professional's instructions. Consider Using Patient Online Services Patient Online [...] if you dont have one. Go to [email or web address] and click on Create Your Account. Then, follow the directions to complete the online form. Youll be asked for your [facility] number which you can find at the top of this document. Your Goals/Additional instructions: This document has images extracted. Please consider using [employer] for all your patient education needs. Source: [facility] POWERCHART Document Id: [id number] Miscellaneous - Neda Hoffman M.D. - 08/18/2015 1:07 PM CDT Ambulatory Discharge Medication List [address] [id number] Visit Information Name: VANESSA ANDINO [facility] Number: [id number] Visit Date: 08/18/2015 13:07:57 Attending Provider: NEDA HOFFMAN MD Primary Care Provider: NEDA HOFFMAN MD VANESSA ANDINOEN has been given the [...] day predniSONE (predniSONE 5 mg oral tablet) 2.5 Tablet(s), Oral, once a day spironolactone (spironolactone 50 mg oral tablet) 1 Tablet(s), Oral, once a day Stop Taking the Following Medications: Medication list as of 08-18-15 13:07 Attention: If you have any medications at [...] Electronically Signed By: NEDA HOFFMAN MD Signed On:18-AUG-2015 13:06:15 Additional Information: Source: [facility] POWERCHART Document Id: [id number] Miscellaneous - Levi Maloney L.P.NRegina - 08/18/2015 12:51 PM CDT 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 Intake/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 Entered On: 08/18/2015 12:53 CDT Performed On: 08/18/2015 12:51 CDT by LEVI MALNOEY LPN Intake Chief Complaint : recheck Temperature Core : 36.8 DegC(Converted to: 98.2 DegF) Peripheral Pulse Rate : 88 /min Respiratory Rate : 16 /min Systolic Blood Pressure : 134 mmHg Diastolic Blood Pressure : 78 mmHg NIBP Mean : 97 mmHg BP Location : Left upper extremity Blood Pressure Cuff Size : Large Height : 156 cm(Converted to: 5 ft 1 inch(es), 61 inch(es)) Actual Weight : 73 kg(Converted to: 160 lb 15 oz) Weight Source : Standing scale Dosing Weight Clinic : 73 kg Clinic BSA : 1.78 Body Mass Index : 30 kg/m2 LEVI MALONEY LPN - 08/18/2015 12:51 CDT General Info Information Given By : Patient Languages : Pashto Is Patient Female and 13-50 no hysterectomy : No LEVI MALONEY LPN - 08/18/2015 12:51 CDT Subjective Pain Symptoms : No LEVI MALONEY LPN - 08/18/2015 12:51 CDT Dependent Habits Exposure to Tobacco Smoke : Care provider denies smoking in home Smoking Status : Never smoker Tobacco 2A : No Tobacco Use/Currently Using : No Tobacco Use/Last 30 Days : No Tobacco Use/Last 12 months : No LEVI MALONEY GERARDO - 08/18/2015 12:51 CDT Caffeine Use Grid Caffeine Use : Current Type : Coffee Frequency : Daily LEVI MALONEY HEALTH AND NUTRITION SPECIALIST - 08/18/2015 12:51 CDT Recreational Drug Use Grid Drug Use : None LEVI MALONEY LPN - 08/18/2015 12:51 CDT Source: [facility] POWERCHART Document Id: [id number] CDT!38 documented in this encounter Plan of Treatment Not on filedocumented as of this encounter Procedures Procedure Name Priority Date/Time Associated Comments Diagnosis FRUCTOSAMINE, S/P Routine 08/18/2015 1:17 PM Resu lts for this CDT procedure are i n the results section. SEDIMENTATION RATE, B Routine 08/18/2015 1:17 PM Results for this CDT procedure are i n the results section. BASIC METABOLIC PANEL, Routine 08/18/2015 1:17 PM Results for this S/P CDT procedure are i n the results section. documented in this encounter Results (ABNORMAL) Sedimentation Rate (08/18/2015 1:17 PM CDT) Patholo gist Method Time Signature Sedimentation 32 (H) 0 - 29 POWERCHART Rate, B MMHR Specimen (Source) Anatomical Collection Method Collection Time Re ceived Time Location / / Volume Laterality Blood 08/18/2015 1:17 PM CDT Neda Hoffman M.D. LAB BLOOD ADD-ON Performing Organization Address City/State/ZIP Code Phon e Number POWERCHART Fructosamine (08/18/2015 1:17 PM CDT) P athologist Signature Fructosamine, S 249 200 - 285 POWERCHART [place]LL Comment: Test Performed by: [address] [address] [place] Operator: Tyrell Enriquez II, M.D., Ph.D. Specimen (Source) Anatomical Collection Method Collection Time Re ceived Time Location / / Volume Laterality Blood 08/18/2015 1:17 PM CDT Neda Hoffman M.D. LAB BLOOD ADD-ON Performing Organization Address City/State/ZIP Code Phon e Number POWERCHART (ABNORMAL) BMP (Basic Metabolic Panel) (08/18/2015 1:17 PM CDT) P athologist Signature Sodium, S 137 135 - 145 POWERCHART MMOLL Potassium, S 4.9 3.6 - 5.2 POWERCHART MMO[place] Chloride, S 96 (L) 98 - 107 POWERCHART [place] CO2 Total 24 22 - 29 POWERCHART [place] BUN (Blood Urea 25 (H) 6 - 21 POWERCHART Nitrogen), S MGDL Creatinine 1.1 0.6 - 1.1 POWERCHART MGDL Calcium, Total, 10.0 8.8 - 10.3 POWERCHART S MGDL Anion Gap 17 (H) 7 - 15 POWERCHART MMO[facility] HXeGFR (MDRD) 49 (L) >=60 POWERCHART [id number] eGFR 59 (L) >=60 POWERCHART Black/ [id number] Hungarian Glucose 173 (H) 70 - 139 POWERCHART MGDL Specimen (Source) Anatomical Collection Method Collection Time Re ceived Time Location / / Volume Laterality Blood 08/18/2015 1:17 PM CDT Neda Hoffman M.D. LAB BLOOD ADD-ON Performing Organization Address City/State/ZIP Code Phon e Number POWERCHART documented in this encounter Visit Diagnoses Not on filedocumented in this encounter
--- OUTSIDE RECORDS SUMMARY | 2022-02-28 01:45 | XMS_ITS | Encounter Summary ---
:1940 Author Organization [facility] Address [address] [place] [address] Care Team Providers Name Role Phone Unavailable Primary Care Provider Unavailable Encounter Details Date Type Department Care Team Description 12/24/[address] [facility] INTERNMED Regulo Hoffman M.D. [address] [place] [address] 021 (Wo rk) Social History Tobacco Use Types Packs/Day Years Used Date Smoking Tobacco: Never Assessed Sex Assigned at Date Recorded Female 09/25/2017 1:20 PM CDT documented as of this encounter Last Filed Vital Signs Vital Sign Reading Time Taken Comments Blood Pressure 128/72 12/24/2015 2:23 PM CDT Pulse 80 12/24/2015 2:23 PM CDT Temperature - - Respiratory Rate 16 12/24/2015 2:23 PM CDT Oxygen Saturation - - Inhaled Oxygen Concentration - - Weight 75 kg (165 lb 5.5 oz) 12/24/2015 2:23 PM CDT Height - - Body Mass Index 30.82 08/18/2015 12:51 PM CDT documented in this encounter Medications at Time of Discharge Medication Sig Dispensed Refills Start Date End Date CALCIUM CARB/VIT Take 1 tablet by mouth 0 010 D3/MINERALS daily. (CALCIUM-VITAMIN D ORAL) MULTIVITAMIN ORAL Take 1 tablet by mouth 0 2009 daily. desonide (for_DESOWEN) Apply 1 application 0 05/201205/04/2017 0.05 % cream topically 2 (two) times a day. documented as of this encounter Progress Notes Neda Hoffman M.D. - 12/24/2015 2:18 PM CDT [id number] CHIEF COMPLAINT/REASON FOR VISIT Left knee pain. Patient has had, in the last week, increased pain in the left knee. It is giving her trouble to walk. A year ago I injected her right knee and she is good ever since so she would like to see if she could get an injection of her left knee. An ultrasound of her renal system to investigate recurring urinary tract infections with the same organism revealed formidable urinary retention. In a female this is always an enigmatic and difficult diagnosis so I am going to refer her to Urology who can work it up and she is agreeable to that. MEDICATIONS See medicine list in EHR. [...] documentation form for this visit. PHYSICAL EXAMINATION The knee is painful over the joint sutures without warmth or redness. IMPRESSION/REPORT/PLAN She has degenerative joint disease of the left knee. We will inject. I prepped with chlorhexidine and, under aseptic conditions, infiltrated 3 mL of 1% lidocaine and 40 mg of Kenalog into the left kneewith no complications and immediate relief. Call if redness, pain or swelling. Otherwise she is referred to Urology for her urinary retention with recurrent urinary infections. Neda Hoffman M.D./kimmie Electronically Signed By: NEDA HOFFMAN MD On: 12/25/2015 07:20 PM Source: [facility] MHSDOLBEYNONRADSYS Document Id: [id number] documented in this encounter Miscellaneous Notes Miscellaneous - Neda Hoffman M.D. - 12/24/2015 3:11 PM CDT Ambulatory Discharge Medication List [address] [id number] Visit Information Name: JACOB ANDINO [facility] Number: [id number] Visit Date: 12/24/2015 15:11:31 Attending Provider: NEDA HOFFMAN MD Primary Care [...] the Following Medications: Medication list as of 12-24-15 15:11 Attention: If you have any medications at [...] Electronically Signed By: NEDA HOFFMAN MD Signed On:24-DEC-2015 15:11:04 Additional Information: Source: [facility] POWERCHART Document Id: [id number] Miscellaneous - Neda Hoffman M.D. - 12/24/2015 3:11 PM CDT Ambulatory Patient Summary [id number] [place], [place] [id number] Visit Information Name: JACOB ANDINO [facility] Number: [id number] Current Date: 12/24/2015 15:11:32 Physicians Attending Provider: NEDA HOFFMAN MD Primary [...] the Following Medications: Medication list as of 12-24-15 15:11 Attention: If you have any medications at [...] Electronically Signed By: NEDA HOFFMAN MD Signed On:24-DEC-2015 15:11:04 Your Allergies & Intolerances Substance Reaction Symptoms Category Comments sulfa drugs Drug oxyCODONE Drug Your Problem List Problem Status Onset Comments Combined hyperlipidemia Active 01/11/2010 Fatigue* Active 01/11/2010 HTN [Hypertension] Active 01/11/2010 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 Knee Pain [Uncertain Cause] There are several common causes for knee pain. These include a sprain of the ligaments that support the joint; an injury to the cartilage lining of the joint; arthritis from ubot-dxw-zhqb or inflammation; and other causes. There may also be swelling, reduced movement of the knee joint and pain with walking. A definite diagnosis was not made today. If your symptoms do not improve, further follow-up and testing may be needed. 00Home Care: Stay off the injured leg as much as possible until pain improves. Apply an ice pack (ice cubes in a plastic bag, wrapped in a towel) over the injured area for 20 minutes every 1-2 hours the first day. Continue with ice packs 3-4 times a day for the next two days, then as needed for the relief of pain and swelling. You may use acetaminophen (Tylenol) or ibuprofen (Motrin, Advil) to control pain, unless another pain medicine was prescribed. [NOTE: If you have chronic liver or kidney disease or ever had a stomach ulcer or GI bleeding, talk with your doctor before using these medicines.] If CRUTCHES or a walker have been recommended, do not bear full weight on the injured leg until you can do so without pain. Check with your doctor before returning to sports or full work duties. If you have a VELCRO KNEE BRACE: ?? You may open the splint to apply ice. ?? You may remove the splint to bathe and sleep, unless told otherwise. Follow Up with your doctor within 1-2 weeks or as advised if not improving. [NOTE: If X-rays were taken, they will be reviewed by a radiologist. You will be notified of any newfindings that may affect your care.] Get Prompt Medical Attention if any of the following occur: ?? Toes or foot becomes swollen, cold, blue, numb or tingly ?? Pain or swelling increases in the knee or calf ?? Warmth or redness appears over the knee or calf ?? Other joints become painful ?? Fever or rash appears ?? Shortness of breath or chest pain ?? Fever of 100.4?F (38?C) or higher, or as directed by your healthcare provider ?? [id number] [facility], [address] [place] [address], [place] [address]. All rights reserved. This information is not [...] if you dont have one. Go to [email or web address] and click on Create Your Account. Then, follow the directions to complete the online form. Youll be asked for your [facility] number which you can find at the top of this document. Your Goals/Additional instructions: This document has images extracted. Please consider using [employer] for all your patient education needs. Source: [facility] POWERCHART Document Id: [id number] Miscellaneous - Levi Maloney L.P.N. 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 Entered On: 12/24/2015 14:27 CDT Performed On: 12/24/2015 14:23 CDT by LEVI MALONEY LPN Intake Chief Complaint : test results and pain in left knee Temperature Core : 36.7 DegC(Converted to: 98.1 DegF) Peripheral Pulse Rate : 80 /min Respiratory Rate : 16 /min Heart Rhythm : Regular Systolic Blood Pressure : 128 mmHg Diastolic Blood Pressure : 72 mmHg NIBP Mean : 91 mmHg BP Location : Left upper extremity Blood Pressure Cuff Size : Large Actual Weight : 75 kg(Converted to: 165 lb 6 oz) Weight Source : Standing scale Dosing Weight Clinic : 75 kg MALONEYLEVI [facility] - 12/24/2015 14:23 CDT General Info Information Given By : Patient Languages : Romansh Is Patient Female and 13-50 no hysterectomy : No LEVI MALONEY [facility] - 12/24/2015 14:23 CDT Subjective Pain Symptoms : Yes LEVI MALONEY [facility] - 12/24/2015 14:23 CDT Pain Scale Pain Scale Verbal 0-10 : Open LEVI MALONEY [facility] - 12/24/2015 14:23 CDT Pain Pain Assessment Grid Pain 1 Location : Knee Laterality : Left LEVI MALONEY [facility] - 12/24/2015 14:23 CDT Dependent Habits Exposure to Tobacco Smoke : Care provider denies smoking in home Smoking Status : Never smoker Tobacco 2A : No Tobacco Use/Currently Using : No Tobacco Use/Last 30 Days : No Tobacco Use/Last 12 months : No LEVI MALONEY [facility] - 12/24/2015 14:23 CDT Caffeine Use Grid Caffeine Use : Current Type : Coffee Frequency : Daily LEVI MALONEY [facility] - 12/24/2015 14:23 CDT Recreational Drug Use Grid Drug Use : None LEVI MALONEY [facility] 12/24/2015 14:23 CDT Source: [facility] POWERCHART Document Id: [id number] CDT!43 documented in this encounter Plan of Treatment Not on filedocumented as of this encounter Visit Diagnoses Not on filedocumented in this encounter
--- OUTSIDE RECORDS SUMMARY | 2022-02-28 01:45 | XMS_ITS | Encounter Summary ---
:1940 Author Organization [facility] Address [address] [place] [address] Care Team Providers Name Role Phone Unavailable Primary Care Provider Unavailable Encounter Details Date Type Department Care Team Description 02/03/2016 Hospital Encounter HX [facility] INTERNMED Regulo Hoffman M.D. [address] [place] [address] 021 (Wo rk) Social History Tobacco Use Types Packs/Day Years Used Date Smoking Tobacco: Never Assessed Sex Assigned at Date Recorded Female 09/25/2017 1:20 PM CDT documented as of this encounter Last Filed Vital Signs Vital Sign Reading Time Taken Comments Blood Pressure 124/62 02/03/2016 8:12 AM SHEET CUTTING OPERATOR Pulse 76 02/03/2016 8:12 AM SHEET CUTTING OPERATOR Temperature - - Respiratory Rate 16 02/03/2016 8:12 AM SHEET CUTTING OPERATOR Oxygen Saturation - - Inhaled Oxygen Concentration - - Weight 73.5 kg (161 lb 14.9 oz) 02/03/2016 8:12 AM SHEET CUTTING OPERATOR Height 159 cm (5' 2.6) 02/03/2016 8:12 AM SHEET CUTTING OPERATOR Body Mass Index 29.05 02/03/2016 8:12 AM SHEET CUTTING OPERATOR documented in this encounter Medications at [...] encounter H&P Notes Neda Hoffman M.D. - 02/03/2016 8:03 AM CST [id number] Preventive medicine with acute problems. 1. Urinary retention. This is a new problem for her but has caused 2 serious infections in her bladder both with the same organism. She at the moment is completely free of urinary symptoms. Has no dysuria and feels she is emptying the bladder but recent tests at the [facility] suggest she has big postvoid residuals. This is a difficult problem. Two options available for her would seem to be intermittent self catheterization, which for a 75-year-old woman is going to be formidable. The 2nd would be a suprapubic catheter and that is the option that I would prefer. In any event, she is seeing urology in the next couple weeks and they will help her to make decisions about what to do. I think it is inevitable that with the residual volume she ismanifesting at the moment that there will be another serious infection soon. 1. AODM. This is diet controlled and basically has been caused by the prednisone she has to take forpolymyalgia rheumatica. 2. Polymyalgia rheumatica. Currently on 10 mg a day with prednisone. We will check a sedimentation rate and see if we can decrease it. She does not have many symptoms at the moment. 3. Malaise and fatigue. The patient is experiencing some malaise and fatigue. She is not very concerned about this. She feels it is probably constitutional or related to aging, but she wants to be surethere are no metabolic abnormalities. 4. Hypertension. Spironolactone has really helped her blood pressure and we will check electrolytes today as she has got excellent control of her blood pressure using a combination of clonidine, furosemide and spironolactone. 5. The patient has had elevated cholesterol's in the past. They are working on diet to try to improve this. Will check cholesterol today and see how they are doing. MEDICATIONS Per EMR. ALLERGIES Per EMR. SYSTEMS REVIEW In all areas except as mentioned above is negative. PAST MEDICAL/SURGICAL HISTORY 1. Mixed dyslipidemia. 2. AODM, provoked by steroids. 3. Hypertension. 4. Urinary retention. 5. Polymyalgia rheumatica. 6. DJD. FAMILY HISTORY/SOCIAL HISTORY She is . She does not smoke. She has no first-degree relative with a history of colorectal cancer, cervical, ovarian or uterine cancer. She has no family history of breast cancer and is current on mammography and colonoscopy. VITAL SIGNS Per EMR. PHYSICAL EXAMINATION HEENT: Eyes: Conjunctivae and lids normal. Pupils equal, round, reactive to light and accommodation.Extraocular movements normal. Sclerae nonicteric. Ophthalmologic exam grossly normal. ENT: Tympanic membranes look okay bilaterally. Nares without erythema or congestion. Mouth without erythema or exudate, no leuko or erythroplakia. [place] teeth top and bottom. NECK: Supple, no adenopathy or thyromegaly. Carotid upstrokes plus 2 bilaterally, no bruits. CHEST: Lung mitchell clear to auscultation and percussion with normal respiratory rate and effort. BREAST: Palpation of the breasts is without mass or discharge, there is no axillary supraclavicular adenopathy, there is no nipple inversion, or dimpling of the skin. CARDIAC: Central venous pressure is normal at 7 to 8 cm of water or less; there is a normal systoliccollapse of the jugular venous pulse; there is not a positive hepatojugular reflex. Heart tones are in sinus rhythm; S1 and S2 normal, physiologic splitting of the second heart tone, no third or fourthsound, no significant murmur, no gallop. ABDOMEN: Soft and nondistended. No organomegaly. No focal mass or tenderness. The bladder does not appear to be enlarged. There is no costovertebral angle tenderness. EXTREMITIES: Warm, dry, noncyanotic. Mild lymphedema and mild DJD in the knees bilaterally. NEUROLOGICALLY: Alert, oriented and grossly nonfocal. SKIN: Inspection of the skin and subcutaneous tissue reveals nothing inconsistent with age. IMPRESSION/REPORT/PLAN 1. Urinary retention. This is a very formidable problem with 2 serious infections already. Postvoid residuals at the [facility]rology Clinic not suggesting she is improving. I would favor suprapubic catheter for permanent resolution of this issue. 2. Polymyalgia rheumatica. Check sedimentation rate and adjust prednisone accordingly. 3. Hypertension. Control is excellent. Blood pressure 124/62. Check electrolytes and renal function today. 4. Dyslipidemia diet controlled. Patient is working on diet. Lipid panel is done today to assess whether they are successful. 5. Malaise and fatigue, probably constitutional. Nothing clearly found on examination, but we will check a hemoglobin, TSH and glucose to rule out metabolic problems. 6. Adult-onset diabetes mellitus. Adult-onset precipitated by age and her steroids for polymyalgia rheumatica. She has an A1c of 6.6 and that will be repeated today. She is to ascertain her control. Aslong as she remains less than 7 without medicines we will leave her on diet control. Inactive problems: Please see past medical history. HEALTH MAINTENANCE CONCERNS Instructed to have a complete physical examination once a year, to see an radon inspector or overseamer once a year for glaucoma screening, and [...] without iron once a day. She is due for a tetanus shot and she will get that today and we will call her with test results. She had an A1c, a BMP, hemoglobin, lipid panel, sedimentation rate and thyroid function cascade. We will call with these tests. Neda Hoffman M.D./kimmie Electronically Signed By: NEDA HOFFMAN MD On: 02/03/2016 01:10 PM Source: [facility] MHSDOLBEYNONRADSYS Document Id: [id number] T CUTTING OPERATOR documented in this encounter Miscellaneous Notes Miscellaneous - Neda Hoffman M.D. - 02/04/2016 8:57 AM CST Results Notification Document Contains Addenda Addendum by LEVI MALONEY LPN on February 04, 2016 10:51:31 SHEET CUTTING OPERATOR called with results From: NEDA HOFFMAN MD To: ANDRIA Hoffman Nurse; Sent: 02/04/2016 08:57:27 SHEET CUTTING OPERATOR ! Show up: 02/04/2016 08:57:27 SHEET CUTTING OPERATOR Subject: Results Notification Actions: Notify patient of results Reminder Comments: ok Results: Date Result Name Value Ref Range 02/03/2016 09:05 TSH, Sensitive-Wick 0.9 mIU/L (0.3-4.2 - ) Source: [facility] [employer] Document Id: [id number] Electronically signed by Conversion, [facility] Automobile Dealer [id number] at 08/21/2016 7:53 AM CDT Neda Alegre M.D. - 02/03/2016 1:10 PM CST Results Notification Document Contains Addenda Addendum by LEVI MALONEY LPN on February 03, 2016 16:46:58 SHEET CUTTING OPERATOR called with results Addendum by OZZIE GAN on February 03, 2016 16:24:38 SHEET CUTTING OPERATOR Patient called back. Please call. Addendum by ZAYRA AMOR CMA on February 03, 2016 13:46:43 SHEET CUTTING OPERATOR Left message for patient to call back. From: NEDA HOFFMAN MD To: ANDRIA Hoffman Nurse; Sent: 02/03/2016 13:10:47 SHEET CUTTING OPERATOR ! Show up: 02/03/2016 13:10:47 SHEET CUTTING OPERATOR Subject: Results Notification Actions: Notify patient of results Reminder Comments: ok Results: Date Result Name Ind Value Ref Range 02/03/2016 09:05 Hgb A1c (H) 6.5 % A1C ( - <=5.6) [facility] Document Id: [id number] Electronically signed by Conversion, [facility] Autom[employer] Dealer [id number] at 08/21/2016 7:53 AM CDT Neda Alegre M.D. - 02/03/2016 12:46 PM CST Results Notification Document Contains Addenda Addendum by LEVI MALONEY LPN on February 03, 2016 16:47:05 SHEET CUTTING OPERATOR called with results Addendum by ZAYRA AMOR CMA on February 03, 2016 13:46:33 SHEET CUTTING OPERATOR Left message for patient to call back. From: NEDA HOFFMAN MD To: ANDRIA Hoffman Nurse; Sent: 02/03/2016 12:46:43 SHEET CUTTING OPERATOR ! Show up: 02/03/2016 12:46:43 SHEET CUTTING OPERATOR Subject: Results Notification Actions: Notify patient of results Reminder Comments: ok Results: Date Result Name Ind Value Ref Range 02/03/2016 09:05 Sodium Lvl 139 mmol/L (135 - 145) 02/03/2016 09:05 Potassium Lvl 4.3 mmol/L (3.6 - 5.2) 02/03/2016 09:05 Chloride 99 mmol/L (98 - 107) 02/03/2016 09:05 CO2 26 mmol/L (22 - 29) 02/03/2016 09:05 AGAP 14 mmol/L (7 - 15) 02/03/2016 09:05 Glucose Fasting (H) 124 mg/dL (70 - 99) 02/03/2016 09:05 Creatinine 1.00 mg/dL (0.60 - 1.10) 02/03/2016 09:05 EGFR (MDRD) (L) 54 mL/min/1.73m2 (>=60 - ) 02/03/2016 09:05 EGFR (MDRD) >60 mL/min/1.73m2 (>=60 - ) 02/03/2016 09:05 BUN 20 mg/dL (6 - 21) 02/03/2016 09:05 Calcium Lvl 9.3 mg/dL (8.8 - 10.3) 02/03/2016 09:05 Cholesterol 167 mg/dL ( - <=199) 02/03/2016 09:05 Trig 121 mg/dL ( - <=149) 02/03/2016 09:05 HDL 61 mg/dL (>=50 - ) 02/03/2016 09:05 LDL/HDL 1 Source: [facility] POWERCHART Document Id: [id number] Electronically signed by Conversion, [facility] Autom[employer] Dealer [id number] at 08/21/2016 7:53 AM CDT Miscellaneous - Neda Hoffman M.D. - 02/03/2016 12:31 PM CST Results Notification Document Contains Addenda Addendum by LEVI MALONEY LPN on February 03, 2016 16:47:14 SHEET CUTTING OPERATOR called with results Addendum by ZAYRA AMOR CMA on February 03, 2016 13:46:24 SHEET CUTTING OPERATOR Left message for patient to call back. From: NEDA HOFFMAN MD To: ANDRIA Hoffman Nurse; Sent: 02/03/2016 12:31:16 SHEET CUTTING OPERATOR ! Show up: 02/03/2016 12:31:16 SHEET CUTTING OPERATOR Subject: Results Notification Actions: Notify patient of results Reminder Comments: ok Results: Date Result Name Value Ref Range 02/03/2016 09:05 LDL Calculated 82 mg/dL ( - <=129) 02/03/2016 09:05 Chol/HDL Ratio 2.74 Source: [employer] Document Id: [id number] Electronically signed by Conversion, [facility] Autom[employer] Dealer [id number] at 08/21/2016 7:53 AM CDT Neda Alegre M.D. - 02/03/2016 10:02 AM CST Results Notification Document Contains Addenda Addendum by LEVI MALONEY LPN on February 03, 2016 16:47:21 SHEET CUTTING OPERATOR called with results Addendum by ZAYRA AMOR CMA on February 03, 2016 13:46:12 SHEET CUTTING OPERATOR Left message for patient to call back. From: NEDA HOFFMAN MD To: ANDRIA Hoffman Nurse; Sent: 02/03/2016 10:02:14 SHEET CUTTING OPERATOR ! Show up: 02/03/2016 10:02:14 SHEET CUTTING OPERATOR Subject: Results Notification Actions: Notify patient of results Reminder Comments: lower prednisone to 7.5mg or 1.5 pills. I think sed rate is elevated secondary to her bladder issues. recheck in 2 months. Results: Date Result Name Ind Value Ref Range 02/03/2016 09:05 Sed Rate (H) 62 mm/hr (0 - 29) Source: [employer] Document Id: [id number] Electronically signed by Conversion, [facility] Autom[employer] Dealer [id number] at 08/21/2016 7:53 AM CDT Neda Alegre M.D. - 02/03/2016 9:22 AM CST Results Notification Document Contains Addenda Addendum by LEVI MALONEY LPN on February 03, 2016 16:47:28 SHEET CUTTING OPERATOR called with results From: NEDA HOFFMAN MD To: ANDRIA Hoffman Nurse; Sent: 02/03/2016 09:22:47 SHEET CUTTING OPERATOR ! Show up: 02/03/2016 09:22:47 SHEET CUTTING OPERATOR Subject: Results Notification Actions: Notify patient of results Reminder Comments: ok Results: Date Result Name Value Ref Range 02/03/2016 09:05 Hgb 12.7 g/dL (12.0 - 15.5) Source: [facility] [employer] Document Id: [id number] Electronically signed by Conversion, [facility] Autom[employer] Dealer [id number] at 08/21/2016 7:53 AM CDT Miscellaneous - Neda Hoffman M.D. - 02/03/2016 8:38 AM CST Ambulatory Patient Summary [address] [id number] Visit Information Name: VANESSA ANDINO KAMRAN [facility] Number: [phone] Current Date: 02/03/2016 08:38:54 Physicians Attending Provider: NEDA HOFFMAN MD Primary [...] D (Calcium 600+D) Oral, once a day cefuroxime (Ceftin 250 mg oral tablet) 1 Tablet(s), Oral, two times a day x 7 day(s) cloNIDine (cloNIDine 0.3 mg oral tablet) 1 [...] the Following Medications: Medication list as of 02-03-16 08:38 Attention: If you have any medications at [...] Electronically Signed By: NEDA HOFFMAN MD Signed On:03-FEB-2016 08:37:55 Your Allergies & Intolerances Substance Reaction Symptoms [...] Your Upcoming Appointments Date Time Location Provider 02/15/2016 09:15 [facility]rology Cesar Groves MD Attention: Contact your local Clinic if [...] What to Include in Your Toolkit ?? Extra insulin, syringes, pens, or insulin pump supplies [...] diabetes and lists emergency contact numbers ?? [phone] Dale Frazier, [address] [place] [address], [place] [address]. All rights reserved. This information is not [...] if you dont have one. Go to [email or web address] and click on Create Your Account. Then, follow the directions to complete the online form. Youll be asked for your [facility] number which you can find at the top of this document. Your Goals/Additional instructions: This document has images extracted. Please consider using [facility] for all your patient education needs. Source: [facility] POWERCHART Document Id: [id number] T CUTTING OPERATOR Miscellaneous - Neda Hoffman M.D. - 02/03/2016 8:38 AM CST Ambulatory Discharge Medication List [address] [id number] Visit Information Name: VANESSA ANDINO [facility] Number: [phone] Current Date: 02/03/2016 08:38:54 Attending Provider: NEDA HOFFMAN MD Primary Care [...] D (Calcium 600+D) Oral, once a day cefuroxime (Ceftin 250 mg oral tablet) 1 Tablet(s), Oral, two times a day x 7 day(s) cloNIDine (cloNIDine 0.3 mg oral tablet) 1 [...] the Following Medications: Medication list as of 02-03-16 08:38 Attention: If you have any medications at [...] Electronically Signed By: NEDA HOFFMAN MD Signed On:03-FEB-2016 08:37:55 Additional Information: Source: [facility] POWERCHART Document Id: [id number] T CUTTING OPERATOR Miscellaneous - Levi Maloney L.P.N. - 02/03/2016 8:15 AM CST PHQ-9 PHQ-9 Entered On: 02/03/2016 8:15 SHEET CUTTING OPERATOR Performed On: 02/03/2016 8:15 SHEET CUTTING OPERATOR by LEVI MALONEY LPN PHQ-9 Little interest or pleasure in doing things : Not at all Feeling down, depressed, or hopeless : Not at all Trouble falling or staying asleep, or sleeping too much : Not at all Feeling tired or having little energy : Not at all Poor appetite or overeating : Several days Feeling bad about yourself or that you are a failure : Not at all Trouble concentrating on things : Not at all Moving or speaking slowly; restless or fidgety : Not at all Thoughts that you would be better off /hurting self : Not at all PHQ-9 Calculated Score : 1 Problems make work, home, or dealing with others : Not difficult at all LEVI MALONEY LPN - 02/03/2016 8:15 SHEET CUTTING OPERATOR Source: [facility] [employer] Document Id: [id number] SHEET CUTTING OPERATOR!13 T CUTTING OPERATOR Miscellaneous - Levi Maloney L.P.N. - 02/03/2016 8:12 AM CST Adult Expense Clerk Intake/History Adult Expense Clerk Intake/History Entered On: 02/03/2016 8:15 SHEET CUTTING OPERATOR Performed On: 02/03/2016 8:12 SHEET CUTTING OPERATOR by LEVI MALONEY LPN Intake Chief Complaint : complete exam Temperature Core : 36.6 DegC(Converted to: 97.9 DegF) Peripheral Pulse Rate : 76 /min Respiratory Rate : 16 /min Heart Rhythm : Regular Systolic Blood Pressure : 124 mmHg Diastolic Blood Pressure : 62 mmHg NIBP Mean : 83 mmHg BP Location : Left upper extremity Blood Pressure Cuff Size : Large Height : 159 cm(Converted to: 5 ft 3 inch(es), 63 inch(es)) Actual Weight : 73.45 kg(Converted to: 161 lb 15 oz) Weight Source : Standing scale Dosing Weight Clinic : 73.45 kg Clinic BSA : 1.8 Body Mass Index : 29.05 kg/m2 LEVI MALONEY LPN - 02/03/2016 8:12 SHEET CUTTING OPERATOR General Info Information Given By : Patient Languages : Sammarinese Is Patient Female and 13-50 no hysterectomy : No LEVI MALONEY LPN - 02/03/2016 8:12 SHEET CUTTING OPERATOR Subjective Pain Symptoms : LEVI Samayoa LPN - 02/03/2016 8:12 SHEET CUTTING OPERATOR Dependent Habits Exposure to Tobacco Smoke : Care provider denies smoking in home Smoking Status : Never smoker Tobacco 2A : No Tobacco Use/Currently Using : No Tobacco Use/Last 30 Days : No Tobacco Use/Last 12 months : No Alcohol Use : No LEVI MALONEY LPN - 02/03/2016 8:12 SHEET CUTTING OPERATOR Caffeine Use Grid Caffeine Use : Current Type : Coffee Frequency : Daily BRENDON LEVIFREDRICK DOTY LPN - 02/03/2016 8:12 SHEET CUTTING OPERATOR Recreational Drug Use Grid Drug Use : None BRENDON LEVIFREDRICK DOTY LPN - 02/03/2016 8:12 SHEET CUTTING OPERATOR Source: [facility] [employer] Document Id: [id number] SHEET CUTTING OPERATOR!40 T CUTTING OPERATOR Miscellaneous - Levi Maloney L.PReginaNRegina - 02/03/2016 8:11 AM CST Health Assessment Health Assessment Entered On: 02/03/2016 8:12 SHEET CUTTING OPERATOR Performed On: 02/03/2016 8:11 SHEET CUTTING OPERATOR by LEVI MALONEY LPN Health Assessment Complete Health Assessment Complete or Modified : Annual Health Assessment Annual Health Assessment Completed : Yes LEVI MALONEY LPN - 02/03/2016 8:11 SHEET CUTTING OPERATOR Nutrition Nutrition Risk Factors by History Adult : None MALONEYSHAHNAZLEVIFREDRICK DOTY LPN - 02/03/2016 8:11 SHEET CUTTING OPERATOR Functional Current Daily Living Assistance : None LEVI MALONEY LPN - 02/03/2016 8:11 SHEET CUTTING OPERATOR Dependent Habits Exposure to Tobacco Smoke : Care provider denies smoking in home Smoking Status : Never smoker Tobacco 2A : No Tobacco Use/Currently Using : No Tobacco Use/Last 30 Days : No Tobacco Use/Last 12 months : No Alcohol Use : No BRENDON LEVIFREDRICK DOTY LPN - 02/03/2016 8:11 SHEET CUTTING OPERATOR Caffeine Use Grid Caffeine Use : Current Type : Coffee Frequency : Daily LEVI MALONEY LPN - 02/03/2016 8:11 SHEET CUTTING OPERATOR Recreational Drug Use Grid Drug Use : None LEVI MALONEY LPN - 02/03/2016 8:11 SHEET CUTTING OPERATOR Psychosocial Domestic Abuse Concerns : None Behavioral Health Screen/Safety Assmt : No Sabianism Preference : Unknown LEVI MALONEY GERARDO - 02/03/2016 8:11 SHEET CUTTING OPERATOR Advance Directive Advanced Directives : No Advance Directive Additional Information : No LEVI MALONEY METAL FURNITURE ASSEMBLY SUPERVISOR - 02/03/2016 8:11 SHEET CUTTING OPERATOR Educ Needs Learning Style Preference Adult Grid Patient : Verbal explanation, Printed materials Family : Verbal explanation, Printed materials LEVI MALONEY METAL FURNITURE ASSEMBLY SUPERVISOR - 02/03/2016 8:11 SHEET CUTTING OPERATOR Source: [facility] [employer] Document Id: [id number] SHEET CUTTING OPERATOR!35 T CUTTING OPERATOR documented in this encounter Plan of Treatment Not on filedocumented as of this encounter Procedures Procedure Name Priority Date/Time Associated Comments Diagnosis LIPID PANEL, S Routine 02/03/2016 9:05 AM Results for this SHEET CUTTING OPERATOR procedure are i n the results section. THYROID FUNCTION Routine 02/03/2016 9:05 AM Resul ts for this CASCADE, S SHEET CUTTING OPERATOR procedure are i n the results section. SEDIMENTATION RATE, B Routine 02/03/2016 9:05 AM Results for this SHEET CUTTING OPERATOR procedure are i n the results section. HEMOGLOBIN, B Routine 02/03/2016 9:05 AM Results for this SHEET CUTTING OPERATOR procedure are i n the results section. HEMOGLOBIN A1C, B Routine 02/03/2016 9:05 AM Resu lts for this SHEET CUTTING OPERATOR procedure are i n the results section. BASIC METABOLIC PANEL, Routine 02/03/2016 9:05 AM Results for this S/P SHEET CUTTING OPERATOR procedure are i n the results section. documented in this encounter Results (ABNORMAL) Sedimentation Rate (02/03/2016 9:05 AM SHEET CUTTING OPERATOR) Patholo gist Method Time Signature Sedimentation 62 (H) 0 - 29 POWERCHART Rate, B MMHR Specimen (Source) Anatomical Collection Method Collection Time Re ceived Time Location / / Volume Laterality Blood 02/03/2016 9:05 AM SHEET CUTTING OPERATOR Neda Hoffman M.D. LAB BLOOD ADD-ON Performing Organization Address City/State/ZIP Code Phon e Number POWERCHART Hemoglobin (02/03/2016 9:05 AM SHEET CUTTING OPERATOR) P athologist Signature Hemoglobin 12.7 12.0 - 15.5 POWERCHART GDL Specimen (Source) Anatomical Collection Method Collection Time Re ceived Time Location / / Volume Laterality Blood 02/03/2016 9:05 AM SHEET CUTTING OPERATOR Neda Hoffman M.D. LAB BLOOD ADD-ON Performing Organization Address City/State/ZIP Code Phon e Number POWERCHART (ABNORMAL) Hemoglobin A1c (02/03/2016 9:05 AM SHEET CUTTING OPERATOR) P athologist Signature Hemoglobin A1c, 6.5 (H) <=5.6 A1C POWERCHART B Specimen (Source) Anatomical Collection Method Collection Time Re ceived Time Location / / Volume Laterality Blood 02/03/2016 9:05 AM SHEET CUTTING OPERATOR Neda Hoffman M.D. LAB BLOOD ADD-ON Performing Organization Address City/State/ZIP Code Phon e Number POWERCHART Lipid Panel (02/03/2016 9:05 AM SHEET CUTTING OPERATOR) P athologist Signature Calculated LDL 82 <=129 MGDL POWERCHART Comment: 2014 National Lipid [...] esting for FH and FDB is available throu [facility]: FH/ADH Genetic Reflex Pinedo el (test ADHP). Acquired (non-genetic) causes of markedly increased LDL cholesterol include cholestatic liver disease due to the presence of LpX. If a genetic form of hypercholesterolemia is suspected, family studies including biochemical testing fo r lipids (total cholesterol,triglycerides, LDL cholesterol and HDL cholesterol) are recommended. ??Please contact the laboratory at or the on-line test catalog at [employer] for information about how to order these [place] ts or to speak with a genetic counselor. Further interpretation would require clinical information. Total Cholesterol/HDL Ratio 2.74 PO WERCHART Cholesterol, Total 167 <=199 MGDL POWERCHART Comment: 2013 National Lipid Association recommen dations for Total Cholesterol in adults ages 18 and up: Desirable <200 mg/dL Borderline high 200-239 mg/dL High 240 mg/dL 2014 National Lipid Association recommen dations for Total Cholesterol in children ages 2 to 17. Acceptable <170 mg/dL Borderline High 170-199 mg/dL High 200 mg/dL HX HDL 61 >=50 MGDL POWERCHART Comment: 2013 National Lipid Association recommen dations for HDL-C in adults ages 18 and up: Low <40 mg/dL (Men) Low <50 mg/dL (Women) 2014 National Lipid Association recommen dations for HDL-C in children ages 2 to 17. Low <40 mg/dL Borderline Low 40-45 mg/dL Acceptable >45 mg/dL Triglycerides 121 <=149 MGDL POWERCHART Comment: 2013 National Lipid Association recommen dations for Triglycerides [...] for risk assessment when triglycerides are >400mg/dL. HXLDL/HDL 1 POWERCHART Specimen (Source) Anatomical Collection Method Collection Time Re ceived Time Location / / Volume Laterality Blood 02/03/2016 9:05 AM SHEET CUTTING OPERATOR Neda Hoffman M.D. LAB BLOOD ADD-ON Performing Organization Address City/State/ZIP Code Phon e Number POWERCHART Thyroid Function [place] (02/03/2016 9:05 AM SHEET CUTTING OPERATOR) P athologist Signature TSH, Sensitive 0.9 0.3 - 4.2 POWERCHART ROBBIEUL Comment: Test Performed by: [address] [address] Ammunition Supervisor: Tyrell Enriquez II, M.D., Ph.D. Specimen (Source) Anatomical Collection Method Collection Time Re ceived Time Location / / Volume Laterality Blood 02/03/2016 9:05 AM SHEET CUTTING OPERATOR Neda Hoffman M.D. LAB BLOOD ADD-ON Performing Organization Address City/State/ZIP Code Phon e Number POWERCHART (ABNORMAL) BMP (Basic Metabolic Panel) (02/03/2016 9:05 AM SHEET CUTTING OPERATOR) P athologist Signature Sodium, S 139 135 - 145 POWERCHART MMOLL Potassium, S 4.3 3.6 - 5.2 POWERCHART MMOLL Chloride, S 99 98 - 107 POWERCHART MMOLL CO2 Total 26 22 - 29 POWERCHART MMOLL Glucose, 124 (H) 70 - 99 POWERCHART Fasting, S MGDL BUN (Blood Urea 20 6 - 21 POWERCHART Nitrogen), S MGDL Creatinine 1.00 0.60 - POWERCHART 1.10 MGDL Calcium, Total, 9.3 8.8 - 10.3 POWERCHART S MGDL Anion Gap 14 7 - 15 POWERCHART MMOLL HXeGFR (MDRD) 54 (L) >=60 POWERCHART [id number] eGFR >60 >=60 POWERCHART Black/ [id number] Egyptian Specimen (Source) Anatomical Collection Method Collection Time Re ceived Time Location / / Volume Laterality Blood 02/03/2016 9:05 AM SHEET CUTTING OPERATOR Neda Hoffman M.D. LAB BLOOD ADD-ON Performing Organization Address City/State/ZIP Code Phon e Number POWERCHART documented in this encounter Visit Diagnoses Not on filedocumented in this encounter Additional Health Concerns Assessment Noted Time PHQ-9 Depression Total Score: 1 02/03/2016 8:15 AM SHEET CUTTING OPERATOR documented as of this encounter
--- OUTSIDE RECORDS SUMMARY | 2022-02-28 01:45 | XMS_ITS | Encounter Summary ---
:1940 Author Organization [facility] Address [address] [place] [address] Care Team Providers Name Role Phone Unavailable Primary Care Provider Unavailable Encounter Details Date Type Department Care Team Description 02/29/2016 Hospital Encounter HX [facility] Javier Knowles, LARS, C.N.P. [address] [phone] (Wo rk) Social History Tobacco Use Types Packs/Day Years Used Date Smoking Tobacco: Never Assessed Sex Assigned at Date Recorded Female 09/25/2017 1:20 PM CDT documented as of this encounter Last Filed Vital Signs Vital Sign Reading Time Taken Comments Blood Pressure - - Pulse 92 02/29/2016 2:11 PM IRRIGATOR SPRINKLING SYSTEM Temperature - - Respiratory Rate 20 02/29/2016 2:11 PM IRRIGATOR SPRINKLING SYSTEM Oxygen Saturation - - Inhaled Oxygen Concentration [...] Progress Notes Chadwick Knowles APRN, R.N. - 02/29/2016 1:37 PM CST [id number] CHIEF COMPLAINT/REASON FOR VISIT Urinary retention. HISTORY OF PRESENT ILLNESS This is a 75-year-old female here today with a friend to discuss the possibility of an InterStim. 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 She does not feel that there is a problem, she does not feel that she is leaving urine behind. At her last visit she was taught to self-catheterize, this is something that she is no longer interested in doing. She states that she had burning with urination for 2 days afterwards. She does not wish to have any procedures that will cause her to need catheterization. She feels like she has not had any leakage and she is interested in learning more about InterStim. She states that at her appointment with Dr. Hoffman, Dr. Hoffman recommended InterStim to her. However, according to his note what he had recommended to her was actually a suprapubic catheter. This isnot something that she is interested in and she is quite adamant about this. MEDICATIONS Aspirin 81 mg 1 tablet daily. Calcium 600+ D. Clonidine 0.3 mg oral tablet, 1 tablet at bedtime. Desonide 0.05% topical cream 1 application 2 times daily. Furosemide 40 mg oral tablet, 1 tablet daily. Losartan 100 mg oral tablet, 1 tablet daily. Multivitamin daily. Prednisone 5 mg oral tablet, 2 tablets daily. Spironolactone 50 mg oral tablet, 1 tablet daily. ALLERGIES Oxycodone and sulfa drugs. 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 VITAL SIGNS Temperature 36.8, heart rate 92, respiratory rate 20, not a tobacco user. PHYSICAL EXAMINATION GENERAL: Patient is well-developed, well-nourished, well-groomed 75-year-old female, in no acute distress. She is alert, cooperative and oriented x3. HEAD: Normal appearance. No evidence of abnormalities. NECK: Symmetrical and supple. CARDIAC: Regular rate, regular rhythm. RESPIRATORY: Respirations unlabored. Normal respiratory rate. Normal respiratory movement. ABDOMEN: Soft, nontender, nondistended. EXTREMITIES: Warm without edema or ulcerations. IMPRESSION/REPORT/PLAN Urinary retention. At this time we had an in-depth discussion regarding the process of trialing InterStim. We discussed that the reason that we would be using InterStim on her would be because of her urinary retention. Because she is not catheterizing, it will be difficult to tell how much improvementshe is having as she does not feel that she is leaving urine behind right now. She is not willing tocatheterize at all. We discussed in detail the process of placing the leads both in the office and in the operating room. She is not sure about this. She is given the website so that she can look at it. She also would like us to mail some information to her, which we can. She has an appointment with Dr Regina Hoffman again in March and will discuss this further with Dr. Hoffman. If she decides that this is something she would like to do, she will contact us. Otherwise, we will see her again on an as-needed basis. Chadwick Knowles N.P./kimmie Electronically Signed By: CHADWICK KNOWLES APRN, RN On: 03/02/2016 11:44 AM Source: [facility] MHSDOLBEYNONRADSYS Document Id: [id number] GATOR SPRINKLING SYSTEM documented in this encounter Miscellaneous Notes Miscellaneous - Moose England, LReginaP.N. - 02/29/2016 2:11 PM CST Adult Commercial Lines Account Assistant Intake/History Adult Commercial Lines Account Assistant Intake/History Entered On: 02/29/2016 14:13 IRRIGATOR SPRINKLING SYSTEM Performed On: 02/29/2016 14:11 IRRIGATOR SPRINKLING SYSTEM by MOOSE ENGLAND LPN Intake Chief Complaint : discus interstim Temperature Core : 36.8 DegC(Converted to: 98.2 DegF) Peripheral Pulse Rate : 92 /min Respiratory Rate : 20 /min Oxygen Therapy : Room air MOOSE ENGLAND LPN - 02/29/2016 14:11 IRRIGATOR SPRINKLING SYSTEM General Info Information Given By : Patient Preferred Communication Mode : Verbal Languages : Citizen Of [place] Is Patient Female and 13-50 no hysterectomy : MOOSE Pfeiffer LPN - 02/29/2016 14:11 IRRIGATOR SPRINKLING SYSTEM Subjective Pain Symptoms : MOOSE Pfeiffer LPN - 02/29/2016 14:11 IRRIGATOR SPRINKLING SYSTEM Dependent Habits Exposure to Tobacco Smoke : Care provider denies smoking in home, Other: Never Smoking Status : Never smoker Tobacco 2A : No Tobacco Use/Currently Using : No Tobacco Use/Last 30 Days : No Tobacco Use/Last 12 months : No MOOSE ENGLAND LPN - 02/29/2016 14:11 IRRIGATOR SPRINKLING SYSTEM Caffeine Use Grid Caffeine Use : Current Type : Coffee Frequency : Daily MOOSE ENGLAND LPN - 02/29/2016 14:11 IRRIGATOR SPRINKLING SYSTEM Recreational Drug Use Grid Drug Use : None MOOSE ENGLAND LPN - 02/29/2016 14:11 IRRIGATOR SPRINKLING SYSTEM Source: [facility] ImageBrief Document Id: [id number] IRRIGATOR SPRINKLING SYSTEM!29 GATOR SPRINKLING SYSTEM documented in this encounter Plan of Treatment Not on filedocumented as of this encounter Visit Diagnoses Not on filedocumented in this encounter Additional Health Concerns Assessment Noted Time PHQ-9 Depression Total Score: 1 02/03/2016 8:15 AM IRRIGATOR SPRINKLING SYSTEM documented as of this encounter
--- OUTSIDE RECORDS SUMMARY | 2022-02-28 01:45 | XMS_ITS | Encounter Summary ---
:1940 Author Organization [facility] Address [address] [place] [address] Care Team Providers Name Role Phone Unavailable Primary Care Provider Unavailable Encounter Details Date Type Department Care Team Description 02/15/2016 Hospital Encounter HX NO MAPPING Verónica Escalante A PRN, C.N.P. [address] [place], [place] [phone] (Wo rk) Social History [...] Miscellaneous - Conversion, Historical Provider Ser - 02/15/2016 11:59 PM TABLE KEEPER Coding Summary-Paper Based CODING DATE: 02/25/2016 FINAL [facility] STATUS: * Discharged to Home or Self Care PAYOR: Medicare Advantage ADMIT DX: REASON FOR VISIT DX: FINAL DX: PRINCIPAL: R33.9 Retention of urine, unspecified SECONDARY: PROCEDURES DOCTOR NAME DATE NOTE: The code number assigned matches the documented diagnosis and / or procedure in the patient's chart. However, the narrative phrase printed from the coding software may appear abbreviated, or result in slightly different terminology. Coded By: DARREL MANUEL Date Saved: 02/25/2016 07:47 am Source: [facility] POWERCHART Document Id: [id number] documented in this encounter Plan of Treatment Not on filedocumented as of this encounter Visit Diagnoses Not on filedocumented in this encounter Additional Health Concerns Assessment Noted Time PHQ-9 Depression Total Score: 1 02/03/2016 8:15 AM TABLE KEEPER documented as of this encounter
--- OUTSIDE RECORDS SUMMARY | 2022-02-28 01:45 | XMS_ITS | Encounter Summary ---
:1940 Author Organization [facility] Address [address] [place] [address] Care Team Providers Name Role Phone Unavailable Primary Care Provider Unavailable Encounter Details Date Type Department Care Team Description 07/06/2015 Hospital Encounter HX [facility]NM[facility] Regulo Hoffman M.D. [address] [place] [address] 021 (Wo rk) Social History Tobacco Use Types Packs/Day Years Used Date Smoking Tobacco: Never Assessed Sex Assigned at Date Recorded Female 09/25/2017 1:20 PM CDT documented as of this encounter Last Filed Vital Signs Vital Sign Reading Time Taken Comments Blood Pressure 136/78 07/06/2015 1:46 PM CDT Pulse 80 07/06/2015 1:46 PM CDT Temperature - - Respiratory Rate 16 07/06/2015 1:46 PM CDT Oxygen Saturation - - Inhaled Oxygen Concentration - - Weight 73 kg (160 lb 15 oz) 07/06/2015 1:46 PM CDT Height - - Body Mass Index 30 01/19/2015 7:57 AM CDT documented in this encounter Medications [...] encounter Progress Notes Neda Hoffman M.D. - 07/06/2015 1:35 PM CDT [id number] CHIEF COMPLAINT/REASON FOR VISIT Recheck on polymyalgia rheumatica. The patient feels great and wants to cut down her prednisone. We will do that. Her last sed rate was normal and I suspect it will be normal again today, and so we will drop from 15 mg to 12.5 mg of prednisone. She will do that by stopping taking 3 pills a day and going to 2-1/2 pills a day. We will then check a sed rate, presuming this one is normal, in 6 weeks and continue to taper at 2.5 mg increments until we get less than 10 mg, then will go at 1 mg increments. The patient is very comfortable with this as she feels back to normal and is very happy with how shefeels. MEDICATIONS See medicine list in EHR. ALLERGIES [...] documentation form for this visit. PHYSICAL EXAMINATION She has no proximal muscle tenderness or weakness in any of the proximal shoulders or the lower extremity muscle girdle. IMPRESSION/REPORT/PLAN Good response to prednisone on polymyalgia rheumatica. A sedimentation rate today. She will drop to prednisone 12.5 mg a day. Will recheck it again, presuming it is normal today, in 6 weeks and then goto 10 mg. Beyond that, will have to taper more slowly. Neda Hoffman M.D./kimmie Electronically Signed By: NEDA HOFFMAN MD On: 07/07/2015 10:19 AM Source: [facility] MHSDOLBEYNONRADSYS Document Id: [id number] documented in this encounter Miscellaneous Notes Miscellaneous - Neda Hoffman M.D. - 07/06/2015 3:32 PM CDT Results Notification Document Contains Addenda Addendum by LEVI MALONEY LPN on July 07, 2015 08:37:21 CDT called with results From: NEDA HOFFMAN MD To: ANDRIA Hoffman Nurse; Sent: 07/06/2015 15:32:12 CDT ! Show up: 07/06/2015 15:32:12 CDT Subject: Results Notification Actions: Notify patient of results Reminder Comments: recheck in 6 weeks scheduled. It ok Results: Date Result Name Value Ref Range 07/06/2015 14:33 Sed Rate 27 mm/hr (0 - 29) Source: [facility] POWERCHART Document Id: [id number] Electronically signed by Conversion, [employer] Cashier [id number] at 08/20/2016 7:28 PM CDT Miscellaneous - Neda Hoffman M.D. - 07/06/2015 2:08 PM CDT Ambulatory Patient Summary [address] [id number] Visit Information Name: JACOB ANDINO KAMRAN [facility] Number: [id number] Current Date: 07/06/2015 14:08:33 Physicians Attending Provider: NEDA HOFFMAN MD Primary [...] tablet) 2.5 Tablet(s), Oral, once a day This is a CHANGE spironolactone (spironolactone 50 mg oral tablet) 1 Tablet(s), Oral, once a day Stop Taking the Following Medications: Medication list as of 07-06-15 14:08 Attention: If you have any medications at [...] if you dont have one. Go to [email or web address] and click on Create Your Account. Then, follow the directions to complete the online form. Youll be asked for your [facility] number which you can find at the top of this document. Your Goals/Additional instructions: Source: [facility] POWERCHART Document Id: [id number] Miscellaneous - Neda Hoffman M.D. - 07/06/2015 2:08 PM CDT Ambulatory Discharge Medication List [place] [id number] [facility] [place] [phone] Visit Information Name: JACOB ANDINO [facility] Number: [id number] Visit Date: 07/06/2015 14:08:33 Attending Provider: NEDA HOFFMAN MD Primary Care [...] tablet) 2.5 Tablet(s), Oral, once a day This is a CHANGE spironolactone (spironolactone 50 mg oral tablet) 1 Tablet(s), Oral, once a day Stop Taking the Following Medications: Medication list as of 07-06-15 14:08 Attention: If you have any medications at [...] Signed By: Signed On: Additional Information: Source: [facility] POWERCHART Document Id: [id number] Miscellaneous - Levi Maloney L.P.N. - 07/06/2015 1:46 PM CDT Adult Component Prep Operator Intake/History Adult Component Prep Operator Intake/History Entered On: 07/06/2015 13:50 CDT Performed On: 07/06/2015 13:46 CDT by LEVI MALONEY LPN Intake Chief Complaint : recheck Temperature Core : 36.7 DegC(Converted to: 98.1 DegF) Peripheral Pulse Rate : 80 /min Respiratory Rate : 16 /min Heart Rhythm : Regular Systolic Blood Pressure : 136 mmHg Diastolic Blood Pressure : 78 mmHg NIBP Mean : 97 mmHg BP Location : Left upper extremity Blood Pressure Cuff Size : Regular Actual Weight : 73 kg(Converted to: 160 lb 15 oz) Weight Source : Standing scale Dosing Weight Clinic : 73 kg LEVI MALONEY LPN - 07/06/2015 13:46 CDT General Info Information Given By : Patient Languages : Malay Is Patient Female and 13-50 no hysterectomy : No LEVI MALONEY LPN - 07/06/2015 13:46 CDT Subjective Pain Symptoms : No LEVI MALONEY LPN - 07/06/2015 13:46 CDT Dependent Habits Exposure to Tobacco Smoke : Care provider denies smoking in home Smoking Status : Never smoker Tobacco 2A : No Tobacco Use/Currently Using : No Tobacco Use/Last 30 Days : No Tobacco Use/Last 12 months : No LEVI MALONEY LPN - 07/06/2015 13:46 CDT Caffeine Use Grid Caffeine Use : Current Type : Coffee Frequency : Daily LEVI MALONEY LPN - 07/06/2015 13:46 CDT Recreational Drug Use Grid Drug Use : None LEVI MALONEY LPN - 07/06/2015 13:46 CDT [facility] Document Id: [id number]!36 documented in this encounter Plan of Treatment Not on filedocumented as of this encounter Procedures Procedure Name Priority Date/Time Associated Comments Diagnosis SEDIMENTATION RATE, B Routine 07/06/2015 2:33 PM Results for this CDT procedure are i n the results section. documented in this encounter Results Sedimentation Rate (07/06/2015 2:33 PM CDT) [facility] Time Signature Sedimentation 27 0 - 29 POWERCHART Rate, B MMHR Specimen (Source) Anatomical Collection Method Collection Time Re ceived Time Location / / Volume Laterality Blood 07/06/2015 2:33 PM CDT Neda Hoffman M.D. LAB BLOOD ADD-ON Performing Organization Address City/State/ZIP Code Phon e Number POWERCHART documented in this encounter Visit Diagnoses Not on filedocumented in this encounter
--- OUTSIDE RECORDS SUMMARY | 2022-02-28 01:45 | XMS_ITS | Encounter Summary ---
:1940 Author Organization [facility] Address [address] [place] [address] Care Team Providers Name Role Phone Unavailable Primary Care Provider Unavailable Encounter Details Date Type Department Care Team Description 12/07/2015 Hospital Encounter HX [facility] Regulo Castano M.D. [address] [place] [address]21 (Wo rk) Social History Tobacco Use [...] Notes Miscellaneous - Neda Hoffman M.D. - 12/11/2015 8:08 PM CDT Results Notification Document Contains Addenda Addendum by LEVI OLIVAS LPN on December 15, 2015 15:50:37 CDT patient called and scheduled to be seen From: NEDA HOFFMAN MD To: ANDRIA Hoffman Nurse; Sent: 12/11/2015 20:08:44 CDT ! Show up: 12/11/2015 20:08:44 CDT Subject: Results Notification Actions: Notify patient of results Reminder Comments: be seen electively Results: Date Result Type Result Name 12/07/2015 12:14 Radiology US Renal Source: [facility] POWERCHART Document Id: [id number] Electronically signed by Conversion, [facility] Nuclear Security Officer [id number] at 08/21/2016 5:25 AM CDT documented in this encounter Plan of Treatment Not on filedocumented as of this encounter Procedures Procedure Name Priority Date/Time Associated Diagnosis Comme nts US KIDNEYS Routine 12/07/2015 11:30 AM Results for this BILATERAL WITH CDT procedure are in BLADDER the results section. documented in this encounter Results US Retroperitoneum Kidney Bilateral (12/07/2015 11:30 AM CDT) Anatomical Region Laterality Modality Abdomen, Renal Bilateral Ultrasound Specimen (Source) Anatomical Collection Method Collection Time Re ceived Time Location / / Volume Laterality 12/07/2015 11:30 AM CDT Addenda Addendum by Jorge Luis Ashraf M.D. o karon 12/07/2015 11:30 AM CDT RAD^^^OW US Renal 12/07/2015 11:30:00 Impressions 12/07/2015 12:11 PM CDT Post void residual is 260 mL. Narrative 12/07/2015 12:11 PM CDT EXAM: US Renal INDICATION: hemorragic cysttis episode AGE: 75 years-old COMPARISON: None. FINDINGS: Right kidney: No suspicious masses. No h ydronephrosis. No atrophy. No calcifications seen. Left kidney: No suspicious masses. No hy dronephrosis. No atrophy. No calcifications seen. Bladder: Prevoid bladder volume 419 mL. Postvoid volume 260 mL. Normal bilateral ureter jets into the ur inary bladder. Procedure Note Neda Adkins M.D. / ProviderJorge Luis M.D. - 07/30/2016 EXAM: US Renal INDICATION: hemorragic cysttis episode AGE: 75 years-old COMPARISON: None. FINDINGS: Right kidney: No suspicious masses. No h ydronephrosis. No atrophy. No calcifications seen. Left kidney: No suspicious masses. No hy dronephrosis. No atrophy. No calcifications seen. Bladder: Prevoid bladder volume 419 mL. Postvoid volume 260 mL. Normal bilateral ureter jets into the ur inary bladder. IMPRESSION: Post void residual is 260 mL . Jacquelin Pope R.V.T., FabiS. IMG US PROCEDURES documented in this encounter Visit Diagnoses Not on filedocumented in this encounter
--- OUTSIDE RECORDS SUMMARY | 2022-02-28 01:45 | XMS_ITS | Encounter Summary ---
:1940 Author Organization [facility] Address [address] [place] [address] Care Team Providers Name Role Phone Unavailable Primary Care Provider Unavailable Encounter Details Date Type Department Care Team Description 02/01/2016 Hospital Encounter HX NO MAPPING Susy Groves M.D. [address] [place], [place] [phone] (Wo rk) Social History [...] Miscellaneous - Conversion, Historical Provider Ser - 02/01/2016 11:59 PM CLOSING SPECIALIST Coding Summary-Paper Based CODING DATE: 02/10/2016 FINAL [facility] [...] terminology. Coded By: DARREL MANUEL Date Saved: 02/10/2016 04:56 pm Source: [facility] POWERCHART Document Id: [id number] documented in this encounter Plan of Treatment Not on filedocumented as of this encounter Visit Diagnoses Not on filedocumented in this encounter
--- OUTSIDE RECORDS SUMMARY | 2022-02-28 01:45 | XMS_ITS | Encounter Summary ---
:1940 Author Organization [facility] Address [address] [place] [address] Care Team Providers Name Role Phone Unavailable Primary Care Provider Unavailable Encounter Details Date Type Department Care Team Description 09/29/2015 Hospital Encounter HX [facility] Regulo Hoffman M.D. [address] [place] [address] 021 (Wo rk) Social History Tobacco Use [...] Notes Miscellaneous - Neda Hoffman M.D. - 09/29/2015 3:23 PM CDT Results Notification Document Contains Addenda Addendum by LEVI OLIVAS LPN on September 29, 2015 15:51:40 CDT called with results From: NEDA HOFFMAN MD To: ANDRIA Hoffman Nurse; Sent: 09/29/2015 15:23:49 CDT ! Show up: 09/29/2015 15:23:49 CDT Subject: Results Notification Actions: Notify patient of results Reminder Comments: ok go to 10mg and recheck in 6 weeks scheduled Results: Date Result Name Value Ref Range 09/29/2015 12:54 Sed Rate 26 mm/hr (0 - 29) Source: [facility] POWERCHART Document Id: [id number] Electronically signed by Conversion, [facility] Corporate Safety Director [id number] at 08/20/2016 10:30 PM CDT documented in this encounter Plan of Treatment Not on filedocumented as of this encounter Procedures Procedure Name Priority Date/Time Associated Comments Diagnosis SEDIMENTATION RATE, B Routine 09/29/2015 12:54 Re sults for this PM CDT procedure are i n the results section. documented in this encounter Results Sedimentation Rate (09/29/2015 12:54 PM CDT) Analysis Performed At Patho logist Time Signature Sedimentation 26 0 - 29 POWERCHART Rate, B MMHR Specimen (Source) Anatomical Collection Method Collection Time Re ceived Time Location / / Volume Laterality Blood 09/29/2015 12:54 PM CDT Neda Hoffman M.D. LAB BLOOD ADD-ON Performing Organization Address City/State/ZIP Code Phon e Number POWERCHART documented in this encounter Visit Diagnoses Not on filedocumented in this encounter
--- OUTSIDE RECORDS SUMMARY | 2022-02-28 01:45 | XMS_ITS | Encounter Summary ---
:1940 Author Organization [facility] Address [address] [place] [address] Care Team Providers Name Role Phone Unavailable Primary Care Provider Unavailable Encounter Details Date Type Department Care Team Description 12/03/2015 Hospital Encounter HX NO MAPPING Sherif Hoffman M.D. [address] [place] [phone] (Wo rk) Social History Tobacco Use [...] Miscellaneous - Conversion, Historical Provider Ser - 12/03/2015 11:59 PM CDT Coding Summary-Paper Based CODING DATE: 12/14/[address] [facility] STATUS: * Discharged to Home or Self Care PAYOR: Medicaid ADMIT DX: REASON FOR VISIT DX: FINAL DX: PRINCIPAL: N30.01 Acute cystitis with hematuria SECONDARY: M35.3 Polymyalgia rheumatica R53.83 Other fatigue E11.9 Type 2 diabetes mellitus without complications PROCEDURES DOCTOR NAME DATE NOTE: The code number assigned matches the documented diagnosis and / or procedure in the patient's chart. However, the narrative phrase printed from the coding software may appear abbreviated, or result in slightly different terminology. Coded By: DARREL MANUEL Date Saved: 12/14/2015 07:47 am Source: [facility] SustainationCHART Document Id: [id number] documented in this encounter Plan of Treatment Not on filedocumented as of this encounter Visit Diagnoses Not on filedocumented in this encounter
--- OUTSIDE RECORDS SUMMARY | 2022-02-28 01:45 | XMS_ITS | Encounter Summary ---
:1940 Author Organization [facility] Address [address] [place] [address] Care Team Providers Name Role Phone Unavailable Primary Care Provider Unavailable Encounter Details Date Type Department Care Team Description 02/15/2016 Hospital Encounter HX [facility] Javier Knowles, LARS, C.N.P. [address] [phone] (Wo rk) Social History Tobacco Use Types Packs/Day Years Used Date Smoking Tobacco: Never Assessed Sex Assigned at Date Recorded Female 09/25/2017 1:20 PM CDT documented as of this encounter Last Filed Vital Signs Vital Sign Reading Time Taken Comments Blood Pressure 155/71 02/15/2016 10:01 AM STRATEGIC ACCOUNTS MANAGER Pulse - - Temperature - - Respiratory [...] Progress Notes Chadwick Knowles, LARS, R.N. - 02/15/2016 9:01 AM CST [id number] CHIEF COMPLAINT/REASON FOR VISIT Urinary retention. HISTORY OF PRESENT ILLNESS Zoe is a pleasant 75-year-old female here today for a recheck of her urinary tract infections as well as elevated postvoid residual. She has had some urinary tract infections with urinary leakage. She states that she is going to the bathroom quite often, after she takes her Lasix, approximately every 20 minutes. She is getting up a few times in the night. She is hoping to get some relief from this.She had a hysterectomy in 1987 and was found to have some fibroids. She also states that her bladderwas tied up. At her appointment with Dr. Groves, they did discuss the possibility of inter stim. This is not something that she is interested in at this time. MEDICATIONS Aspirin 81 mg 1 tablet daily. Calcium 600 plus D daily. Clonidine 0.3 mg oral tablet 1 tablet at bedtime. Desonide 0.05% topical cream 2 times a day. Furosemide 40 mg oral tablet 1 tablet daily. Losartan 100 mg oral tablet 1 tablet daily. Multivitamins daily. Prednisone 5 mg oral tablet 2 tablets daily. Spironolactone 50 mg oral tablet 1 tablet daily. ALLERGIES Oxycodone and sulfa drugs. 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 VITAL SIGNS Blood pressure 151/71. Not a tobacco user. PHYSICAL EXAMINATION GENERAL: Patient is well-developed, well-nourished, well-groomed 75-year-old female, in no acute distress. Alert, cooperative, oriented x3. HEAD: Normal appearance. No evidence of abnormalities. NECK: Symmetrical and supple. CARDIAC: Regular rate, regular rhythm. RESPIRATORY: Respirations unlabored. Normal respiratory rate. Normal respiratory movement. ABDOMEN: Soft, nontender, nondistended. EXTREMITIES: Warm without edema or ulcerations. DIAGNOSTICS Postvoid residual 482 mL. IMPRESSION/REPORT/PLAN Urinary retention. We discussed etiology of recurrent urinary tract infections in postmenopausal woman and it can be either vaginal atrophy or incomplete bladder emptying. She is having difficulty emptying her bladder. At this time she has a very large postvoid residual and no desire to void. At this time, after discussion, she is not interested in inter stim, which gives us the option of self intermittent catheterization. Education using the teach-back method is done by nursing staff. Catheters will be ordered for her. She will catheterize once in the morning and once at bedtime. All of her questions are answered today. She is in agreement with the plans that we have made. I will see her back in 3 months for recheck. Chadwick Knowles N.P./kimmie Electronically Signed By: CHADWICK KNOWLES APRN, RN On: 02/17/2016 01:53 PM Source: [facility] Document Id: [id number] TEGIC ACCOUNTS MANAGER documented in this encounter Miscellaneous Notes Miscellaneous - Chadwick Knowles APRN RPietro - 02/17/2016 3:41 PM STRATEGIC ACCOUNTS MANAGER Results Notification Document Contains Addenda Addendum by CAMILLA KELLOGG LPN on February 19, 2016 08:36:32 STRATEGIC ACCOUNTS MANAGER Patient was informed of normal results. Addendum by JAJA STILL CMA on February 17, 2016 17:01:59 STRATEGIC ACCOUNTS MANAGER TCB From: CHADWICK KNOWLES APRN, RN To: Urology Nurse; Sent: 02/17/2016 15:41:10 STRATEGIC ACCOUNTS MANAGER ! Show up: 02/17/2016 15:41:10 STRATEGIC ACCOUNTS MANAGER Subject: Results Notification Actions: Notify patient of results Reminder Comments: ua/uc ok, no infection Results: Date Result Type Ind Result Name MBO Review Culture Urine Source: [facility] POWERCHART Document Id: [id number] Telephone Encounter - Dexter Santana L.P.N. - 02/15/2016 5:20 PM CST *Phone Message Document Contains Addenda Addendum by CAMILLA KELLOGG LPN on February 16, 2016 14:11:00 STRATEGIC ACCOUNTS MANAGER Patient agreed to meet with Chadwick Feb.28 at 2:00. Addendum by CHADWICK KNOWLES APRN, REINIER on February 16, 2016 09:23:33 STRATEGIC ACCOUNTS MANAGER From: CHADWICK KNOWLES APRN, RN To: Urology Nurse; Sent: 02/16/2016 09:23:33 STRATEGIC ACCOUNTS MANAGER Subject: RE: *Phone Message Please make an appointment with me to discuss interstim and we can possibly do an office trial in February. Chadwick From: DEXTER SANTANA LPN ( Urology Nurse) To: CHADWICK KNOWLES APRN, RN; Sent: 02/15/2016 17:20:18 STRATEGIC ACCOUNTS MANAGER Subject: *Phone Message Caller is: ( x ) Patient ( ) Mother ( ) Father ( ) Spouse ( ) Daughter ( ) Son ( ) Pharmacy ( ) Other: Physician: Chadwick Knowles APRN Patient MRN #: Reason for Call:Does not want to cathetrize. Message: Patient would like to talk about Interstim. She is afraid of infection from trying to catheterize. Advice/Action: Source used: ( ) Verbalizes understanding [...] back cell phone number ( ) Source: [facility] POWERCHART Document Id: [id number] Miscellaneous - Chadwick Knowles APRN, R.N. - 02/15/2016 1:02 PM STRATEGIC ACCOUNTS MANAGER Ambulatory Patient Summary [address] [id number] Visit Information Name: VANESSA ANDINO [facility] Number: [id number] Current Date: 02/15/2016 13:02:36 Physicians Attending Provider: CHADWICK KNOWLES APRN, RN Primary Care Provider: NEDA HOFFMAN MD VANESSA ANDINO KAMRAN [...] the Following Medications: Medication list as of 02-15-16 13:02 Attention: If you have any medications at [...] Signed By: CHADWICK KNOWLES APRN, RN Signed On:15-FEB-2016 13:02:32 Your Allergies & Intolerances Substance Reaction Symptoms [...] Your Upcoming Appointments Date Time Location Provider 04/05/2016 12:30 [facility] 04/05/2016 12:45 [facility] Neda Hoffman MD 05/16/2016 13:15 [facility] Urology Chadwick Knowles CNP [...] if you dont have one. Go to [email or web address] and click on Create Your Account. Then, follow the directions to complete the online form. Youll be asked for your [facility] number which you can find at the top of this document. Your Goals/Additional instructions: Source: [facility] POWERCHART Document Id: [id number] TEGIC ACCOUNTS MANAGER Miscellaneous - Chadwick Knowles APRN, R.N. - 02/15/2016 1:02 PM STRATEGIC ACCOUNTS MANAGER Ambulatory Discharge Medication List [address] [id number] Visit Information Name: BHARATHHARRISONVANESSACHARLEY ANDREW [facility] Number: [id number] Current Date: 02/15/2016 13:02:35 Attending Provider: CHADWICK KNOWLES APRN, fitness and wellness instructor Provider: NEDA HOFFMAN MD VANESSA ANDINOEN has [...] the Following Medications: Medication list as of 02-15-16 13:02 Attention: If you have any medications at [...] Signed By: CHADWICK KNOWLES APRN, RN Signed On:15-FEB-2016 13:02:32 Additional Information: Source: [facility] POWERCHART Document Id: [id number] TEGIC ACCOUNTS MANAGER Miscellaneous - Jaja Still, C.M.A. - 02/15/2016 10:01 AM CST Adult Television Parts Tester Intake/History Adult Television Parts Tester Intake/History Entered On: 02/15/2016 10:06 STRATEGIC ACCOUNTS MANAGER Performed On: 02/15/2016 10:01 STRATEGIC ACCOUNTS MANAGER by JAJA STILL CMA Intake Chief Complaint : Rck: incomplete emptying and UTI - no concerns Heart Rhythm : Regular Systolic Blood Pressure : 155 mmHg (HI) Diastolic Blood Pressure : 71 mmHg NIBP Mean : 99 mmHg BP Location : Left upper extremity Blood Pressure Cuff Size : Regular JAJA STILL CMA - 02/15/2016 10:01 STRATEGIC ACCOUNTS MANAGER General Info Information Given By : Patient Preferred Communication Mode : Verbal Languages : German Is Patient Female and 13-50 no hysterectomy : No JAJA STILL [facility] - 02/15/2016 10:01 STRATEGIC ACCOUNTS MANAGER Subjective Pain Symptoms : No JAJA STILL [facility] - 02/15/2016 10:01 STRATEGIC ACCOUNTS MANAGER Dependent Habits Exposure to Tobacco Smoke : Care provider denies smoking in home Smoking Status : Never smoker Tobacco 2A : No Tobacco Use/Currently Using : No Tobacco Use/Last 30 Days : No Tobacco Use/Last 12 months : No Alcohol Use : No JAJA STILL [facility] - 02/15/2016 10:01 STRATEGIC ACCOUNTS MANAGER Caffeine Use Grid Caffeine Use : Current Type : Coffee Frequency : Daily JAJA STILL [facility] - 02/15/2016 10:01 STRATEGIC ACCOUNTS MANAGER Recreational Drug Use Grid Drug Use : None JAJA STILL [facility] 02/15/2016 10:01 STRATEGIC ACCOUNTS MANAGER Source: [facility] POWERCHART Document Id: [id number] STRATEGIC ACCOUNTS MANAGER!32 TEGIC ACCOUNTS MANAGER documented in this encounter Plan of Treatment Not on filedocumented as of this encounter Procedures Procedure Name Priority Date/Time Associated Comments Diagnosis URINALYSIS WITH Routine 02/15/2016 10:40 Results for this MICROSCOPIC AM STRATEGIC ACCOUNTS MANAGER procedure are i n the results section. BACTERIAL CULTURE, Routine 02/15/2016 10:40 Resul ts for this AEROBIC, URINE AM STRATEGIC ACCOUNTS MANAGER procedure are in the results section. documented in this encounter Results (ABNORMAL) Urinalysis, Complete, Includes Microscopic (02/15/2016 10:40 AM STRATEGIC ACCOUNTS MANAGER) P athologist Signature Clarity Clear Clear POWERCHART HXUr Color Yellow Colorless POWERCHART Specific 1.015 POWERCHART [place], POCT, U Comment: Reference Range Specific [place]: 1.000-1.035 pH, POCT, Urine 7.0 <5.0 POWERCHART Comment: Reference Range pH: 5.0-8.0 Protein, Ur, Dip Negative Negative MGDL POWERCHAR T Glucose Negative Negative MGDL POWERCHART Ketones, QL(U) Negative Negative MGDL POWERCHART HXBILIRUBIN Negative Negative POWERCHART HXBLOOD Negative Negative POWERCHART Leukocyte Esterase Small (A) Negative POWERCHART HXNITRITE Negative Negative POWERCHART Urobilinogen 0.2 0.2 MGDL POWERCHART Comment: Reference Range Urobilinogen: 0.2-1.0 mg/dL HXUR WBC. 4-10 None Seen HPF POWERCHART HXUR RBC. None Seen None Seen HPF POWERCHART Squamous Epithelial Occ-3 (A) None Seen HPF POWERC CIFUENTES HXUR Bacteria, None Seen None Seen POWERCHART Specimen (Source) Anatomical Collection Method Collection Time Re ceived Time Location / / Volume Laterality Urine, First 02/15/2016 10:40 Voided AM STRATEGIC ACCOUNTS MANAGER Chadwick Knowles APRN, C.N.P. LAB URINE ORDERABLES Performing Organization Address City/State/ZIP Code Phon e Number POWERCHART Bacterial Culture, Aerobic, Urine (02/15/2016 10:40 AM STRATEGIC ACCOUNTS MANAGER) [facility] gist Method Time Signature Bacterial POWERCHART Culture, Aerobic, Urine HXFinal Mixed miriam. No POWERCHART further studies unless notified. HXFinal [place] POWERCHART Microbiology laboratory [phone]. Specimen (Source) Anatomical Collection Method Collection Time Re ceived Time Location / / Volume Laterality Urine, First 02/15/2016 10:40 Voided AM STRATEGIC ACCOUNTS MANAGER Chadwick Knowles APRN, C.N.P. LAB MICROBIOLOGY - GENE RAL ORDERABLES Performing Organization Address City/State/ZIP Code Phon e Number POWERCHART documented in this encounter Visit Diagnoses Not on filedocumented in this encounter Additional Health Concerns Assessment Noted Time PHQ-9 Depression Total Score: 1 02/03/2016 8:15 AM STRATEGIC ACCOUNTS MANAGER documented as of this encounter
--- OUTSIDE RECORDS SUMMARY | 2022-02-28 01:45 | XMS_ITS | Encounter Summary ---
:1940 Author Organization [facility] Address [address] [place] [address] Care Team Providers Name Role Phone Unavailable Primary Care Provider Unavailable Encounter Details Date Type Department Care Team Description 11/02/2015 Hospital Encounter HX [facility] INTERNMED Regulo Hoffman M.D. [address] [place] [address] 021 (Wo rk) Social History Tobacco Use Types Packs/Day Years Used Date Smoking Tobacco: Never Assessed Sex Assigned at Date Recorded Female 09/25/2017 1:20 PM CDT documented as of this encounter Last Filed Vital Signs Vital Sign Reading Time Taken Comments Blood Pressure 138/72 11/02/2015 4:01 PM CDT Pulse 88 11/02/2015 4:01 PM CDT Temperature - - Respiratory Rate 16 11/02/2015 4:01 PM CDT Oxygen Saturation - - Inhaled Oxygen Concentration - - Weight 72.5 kg (159 lb 13.3 oz) 11/02/2015 4:01 PM CDT Height - - Body Mass Index 29.79 08/18/2015 12:51 PM CDT documented in this [...] encounter Progress Notes Neda Hoffman M.D. - 11/02/2015 3:46 PM CDT [id number] CHIEF COMPLAINT/REASON FOR VISIT Burning and frequency. Patient has had 2 days of frequency, burning and some hematuria. Has felt a little nauseated this morning then drank some water and felt better. She has no fever or chills. No upper back pain. MEDICATIONS See medicine list in EHR. ALLERGIES [...] documentation form for this visit. PHYSICAL EXAMINATION Costovertebral angles are nontender. Suprapubic areas a little tender. IMPRESSION/REPORT/PLAN Acute cystitis, nothing unusual. It is just that she has never had it before so I explained it to her. We will do an UA with reflex to culture and empirically place her on <__IM_1: VERIFY__>TMP/SFX DS 1 by mouth 2 times a day x5 days. She has no allergies. Should drink lots of water with that medicine and we will call and make sure that the antibiotic matches the bug that has grown. Neda Hoffman M.D./kimmie Electronically Signed By: NEDA HOFFMAN MD On: 11/03/2015 04:06 PM Source: [facility] MHSDOLBEYNONRADSYS Document Id: [id number] documented in this encounter Miscellaneous Notes Telephone Encounter - Yumi Solano R.N. - 11/16/2015 4:47 PM CDT prednisone. Document Contains Addenda Addendum by CARMEN CABRERA RN on November 17, 2015 08:16:29 CDT proposal sent to dr. Christine Addendum by FRANCHESCA CHRISTINE MD on November 16, 2015 19:09:40 CDT From: FRANCHESCA CHRISTINE MD To: ANDRIA Mansfield Medication Refill; Cc: LEVI MALONEY LALITHA GERARDO; Sent: 11/16/2015 19:09:40 CDT ! Subject: RE: prednisone. I don't find any change in dosage. She's been taking Prednisone 10 mg daily since September 2015, after lab on 09/29/2015. Her recent sed rate was high, 54 on 11/10/2015. She was called to schedule appointmentwith Dr. Hoffman for follow up, per Reminder note from 11/10/2015. From: YUMI SOLANO RN ( [facility] Medication Refill) To: FRANCHESCA CHRISTINE MD; Sent: 11/16/2015 16:47:18 CDT Subject: prednisone. Caller is: ( ) Patient ( ) Mother ( ) Father ( ) Spouse ( ) Daughter ( ) Son ( Holt ) Pharmacy( ) Other: Physician: Marta Hoffman Patient MRN #: Reason for Call: Message: S Prednisone 5 mg B Script directions changed. Need new script sent to pharmacy. Please and thank you. Advice/Action: Source used: ( ) Verbalizes understanding [...] back cell phone number ( ) Source: [facility] POWERCHART Document Id: [id number] Electronically signed by Conversion, [facility] Plant Guide [id number] at 08/21/2016 2:53 AM CDT Telephone Encounter - Conversion, Historical Provider Ser - 11/09/2015 7:50 AM CDT *Phone Message Document Contains Addenda Addendum by NEDA HOFFMAN MD on November 09, 2015 09:21:02 CDT From: NEDA HOFFMAN MD To: ANDRIA Hoffman Nurse; Sent: 11/09/2015 09:21:02 CDT Subject: RE: *Phone Message elyse florentindidier then Addendum by LEVI MALONEY LPN on November 09, 2015 09:11:42 CDT From: LEVI MALONEY LPN (ANDRIA Hoffman Nurse) To: NEDA HOFFMAN MD; Sent: 11/09/2015 09:11:42 CDT Subject: FW: *Phone Message patient called went to ER was treated with cipro blood in urine now cleared up From: ABHISHEK DUMONT ( Neda Hoffman Nurse) To: ANDRIA Hoffman Nurse; Sent: 11/09/2015 07:50:30 CDT Subject: *Phone Message Caller is: ( ) Patient ( ) Mother ( ) Father ( ) Spouse ( ) Daughter ( ) Son ( ) Pharmacy ( ) Other: Physician: Patient MRN #: Reason for Call: Message: has questions about lab work to be done call Viri at [phone] Advice/Action: Source used: ( ) Verbalizes understanding [...] back cell phone number ( ) Source: [facility] E Ink Document Id: [id number] Telephone Encounter - Conversion, Historical Provider Ser - 11/04/2015 3:11 PM CDT *Phone Message/Dilan Hoffman Document Contains Addenda Addendum by LEVI MALONEY LPN on November 04, 2015 15:53:04 CDT patient called will stop bactium and callwith update Monday Addendum by NEDA HOFFMAN MD on November 04, 2015 15:44:43 CDT From: NEDA HOFFMAN MD To: ANDRIA Hoffman Nurse; Sent: 11/04/2015 15:44:43 CDT Subject: RE: *Phone Message/DRegina Hobbsn can stop if she has laready taken 2 days Addendum by LEVI MALONEY LPN on November 04, 2015 15:31:09 CDT From: LEVI MALONEY LPN ( Neda Hoffman Nurse) To: NEDA HOFFMAN MD; Sent: 11/04/2015 15:31:09 CDT Subject: FW: *Phone Message/Dilan Hoffman patient called Bactium is making her feel sick to stomach . From: SAM ANDUJAR To: ANDRIA Hoffman Nurse; Sent: 11/04/2015 15:11:23 CDT ! Subject: *Phone Message/Dilan Hoffman Caller is: ( x ) Patient ( ) Mother ( ) Father ( ) Spouse ( ) Daughter ( ) Son ( ) Pharmacy ( ) Other: Physician: Dilan Hoffman Patient MRN #: Reason for Call: Message: Vanessa was transferred from the [facility] to leave a message to speak with Dr Hoffman's nurse today. Vanessa was in to see Dr Hoffman on Monday11/02/15 and was given a new medication that is making her very sick to her stomach and just an over-all ill feeling. She can be reached back at Advice/Action: Source used: ( ) Verbalizes understanding [...] back cell phone number ( ) Source: [facility] POWERCHART Document Id: [id number] Miscellaneous - Neda Hoffman M.D. - 11/02/2015 4:25 PM CDT Ambulatory Patient Summary [address] [id number] Visit Information Name: BHARATHHARRISONVANESSACHARLEY ANDREW [facility] Number: [id number] Current Date: 11/02/2015 16:25:04 Physicians Attending Provider: NEDA HOFFMAN MD Primary [...] tablet) 1 Tablet(s), Oral, once a day sulfamethoxazole-trimethoprim (Bactrim DS 800 mg-160 mg oral tablet) 1 Tablet(s), Oral, two times a day x 5 day(s) New Routed to [address] [address] Stop Taking the Following Medications: Medication list as of 11-02-15 16:25 Attention: If you have any medications at [...] Electronically Signed By: NEDA HOFFMAN MD Signed On:02-NOV-2015 16:24:01 Your Allergies & Intolerances Substance Reaction Symptoms Category Comments oxyCODONE Drug Your Problem List Problem Status Onset Comments Combined hyperlipidemia Active 01/11/2010 Fatigue* Active 01/11/2010 HTN [Hypertension] Active 01/11/2010 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 Bladder Infection, Female (Child) Your child has an infection of the bladder. Common causes for this problem include: -- Not keeping the genital area clean and dry promotes the growth of bacteria. -- Wiping in the wrong direction (back to front) in young girls. This drags bacteria from the rectumtoward the urinary opening (urethra). -- Wearing tight pants or underwear allows moisture to build up in the genital area, which helps bacteria grow. -- Some children are sensitive to the chemicals in bubble baths. These can enter the urinary openingand can lead to a urinary infection. -- Holding the urine for long periods of time -- Dehydration A first-time urinary tract infection is not unusual in a female child. However, recurrent infectionsrequire further testing for more serious causes. Home Care: 1) Give your child plenty of fluid to drink. This will help flush the bacteria through the urinary tract. 2) Take all of the antibiotics until they are gone. 3) Use Tylenol (acetaminophen) for fever, fussiness or discomfort, unless another medicine was prescribed. In infants over six months of age, you may use ibuprofen (Childrens Motrin) instead of Tylenol. [NOTE: If your child has chronic liver or kidney disease or has ever had a stomach ulcer or GI bleeding, talk with your doctor before using these medicines.] (Aspirin should never be used in anyone under 18 years of age who is ill with a fever. It may cause severe liver damage.) Preventing Future Infections: 1) Change soiled diapers promptly. 2) Teach your daughter to wipe from front to back. 3) Teach your child to empty their bladder as soon as they feel the urge. 4) Keep the genital region clean and dry. 5) Use cotton underwear. Avoid tight fitting pants. 6) Avoid dehydration by giving plenty of liquids every day. Follow Up with your doctor or this facility as advised. Get Prompt Medical Attention if any of the following occur: ?? No improvement after 24 hours of treatment ?? Any symptoms that continue after three days of treatment ?? Fever of 100.4?F (38?C) oral or 101.4?F (38.5?C) rectal or higher, not better with fever medication ?? Nausea, vomiting or unable to keep down medicines ?? Abdominal or back pain ?? Vaginal discharge ?? Pain, swelling or redness in the labia (outer vaginal area) ?? [id number] [facility], [address] [place] [address]. All rights reserved. This information is not [...] if you dont have one. Go to [email or web address] and click on Create Your Account. Then, follow the directions to complete the online form. Youll be asked for your [facility] number which you can find at the top of this document. Your Goals/Additional instructions: This document has images extracted. Please consider using [employer] for all your patient education needs. Source: [facility] POWERCHART Document Id: [id number] Miscellaneous - Neda Hoffman M.D. - 11/02/2015 4:25 PM CDT Ambulatory Discharge Medication List [address] [id number] Visit Information Name: VANESSA ANDINO [facility] Number: [id number] Visit Date: 11/02/2015 16:25:04 Attending Provider: NEDA HOFFMAN MD Primary Care Provider: NEDA HOFFMAN MD BHARATHEARLRAE ANDREW has been given the [...] tablet) 1 Tablet(s), Oral, once a day sulfamethoxazole-trimethoprim (Bactrim DS 800 mg-160 mg oral tablet) 1 Tablet(s), Oral, two times a day x 5 day(s) New Routed to [address] [address] Stop Taking the Following Medications: Medication list as of 11-02-15 16:25 Attention: If you have any medications at [...] Electronically Signed By: NEDA HOFFMAN MD Signed On:02-NOV-2015 16:24:01 Additional Information: Source: [facility] POWERCHART Document Id: [id number] Miscellaneous - Levi Maloney L.P.N. 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 Intake/History Adult [employer] Helic[employer] Intake/History Entered On: 11/02/2015 16:03 CDT Performed On: 11/02/2015 16:01 CDT by LEVI MALONEY LPN Intake Chief Complaint : blood in urine burning and freq Temperature Core : 36.7 DegC(Converted to: 98.1 DegF) Peripheral Pulse Rate : 88 /min Respiratory Rate : 16 /min Systolic Blood Pressure : 138 mmHg Diastolic Blood Pressure : 72 mmHg NIBP Mean : 94 mmHg BP Location : Left upper extremity Blood Pressure Cuff Size : Large Actual Weight : 72.5 kg(Converted to: 159 lb 13 oz) Weight Source : Standing scale Dosing Weight Clinic : 72.5 kg LEVI MALONEY LPN - 11/02/2015 16:01 CDT General Info Information Given By : Patient Languages : Tuvaluan Is Patient Female and 13-50 no hysterectomy : No LEVI MALONEY LPN - 11/02/2015 16:01 CDT Subjective Pain Symptoms : No LEVI MALONEY LPN - 11/02/2015 16:01 CDT Dependent Habits Exposure to Tobacco Smoke : Care provider denies smoking in home Smoking Status : Never smoker Tobacco 2A : No Tobacco Use/Currently Using : No Tobacco Use/Last 30 Days : No Tobacco Use/Last 12 months : No LEVI MALONEY LPN - 11/02/2015 16:01 CDT Caffeine Use Grid Caffeine Use : Current Type : Coffee Frequency : Daily LEVI MALONEY LPN - 11/02/2015 16:01 CDT Recreational Drug Use Grid Drug Use : None LEVI MALONEY LPN - 11/02/2015 16:01 CDT Source: [facility] E Ink Document Id: [id number] CDT!35 documented in this encounter Plan of Treatment Not on filedocumented as of this encounter Visit Diagnoses Not on filedocumented in this encounter
--- OUTSIDE RECORDS SUMMARY | 2022-02-28 01:45 | XMS_ITS | Encounter Summary ---
:1940 Author Organization [facility] Address [address] [place] [address] Care Team Providers Name Role Phone Unavailable Primary Care Provider Unavailable Encounter Details Date Type Department Care Team Description 04/05/2016 Hospital Encounter HX [facility] INTERNMED Regulo Hoffman M.D. [address] [place] [address] 021 (Wo rk) Social History Tobacco Use Types Packs/Day Years Used Date Smoking Tobacco: Never Sex Assigned at Date Recorded Female 09/25/2017 1:20 PM CDT documented as of this encounter Last Filed Vital Signs Vital Sign Reading Time Taken Comments Blood Pressure 132/64 04/05/2016 12:50 PM REFINERY PIPELINE OPERATOR Pulse 60 04/05/2016 12:50 PM REFINERY PIPELINE OPERATOR Temperature - - Respiratory Rate 16 04/05/2016 12:50 PM REFINERY PIPELINE OPERATOR Oxygen Saturation - - Inhaled Oxygen Concentration - - Weight 71.5 kg (157 lb 10.1 oz) 04/05/2016 12:50 PM REFINERY PIPELINE OPERATOR Height - - Body Mass Index 28.28 02/03/2016 8:12 AM REFINERY PIPELINE OPERATOR documented in this encounter Medications at [...] encounter Progress Notes Neda Hoffman M.D. - 04/05/2016 12:01 PM CST [id number] CHIEF COMPLAINT/REASON FOR VISIT Urinary retention. The patient has urinary retention which is a difficult problem in females however, they have talked to her about a device called an InterStim device and I researched that. I think it is a very good idea and that she should try it otherwise, she is going to be stuck with an indwelling catheter of some kind. She cannot and refuses to do straight cath. Residuals have been charted as high in [place]. She says as much as 300. At some point, her kidneys will be affected. MEDICATIONS See medicine list in EHR. ALLERGIES [...] documentation form for this visit. PHYSICAL EXAMINATION Is not performed. IMPRESSION/REPORT/PLAN She has significant urinary retention, wanted my opinion of what they have been talking about in [place] I think an InterStim device would be an excellent solution for her, if it works then we are done with it. If it does not, then I still believe suprapubic catheter is the way to go. I will do a today, make sure the kidneys or staying okay and I set her with Urology. Neda Hoffman M.D./kimmie Electronically Signed By: NEDA HOFFMAN MD On: 04/05/2016 04:16 PM Source: [facility] MHSDOLBEYNONRADSYS Document Id: [id number] NERY PIPELINE OPERATOR documented in this encounter Miscellaneous Notes Miscellaneous - Neda Hoffman M.D. - 04/06/2016 7:46 AM CST Results Notification Document Contains Addenda Addendum by LEVI MALONEY LPN on April 06, 2016 11:16:26 REFINERY PIPELINE OPERATOR Spoke with: ( _x ) Patient ( _ ) Parent ( _ ) Spouse ( _ ) Child ( ) Other: _ Call back telephone number: _ Reason for Call: -_ test results Chief Complaint: _ Patient/Caller response to Education/Information given: ( _x ) Verbalizes understanding of test results ( _ [...] language for Healthcare discussion: _ Was an personal care assistant used for this call? _ Other ( --_ ) From: NEDA HOFFMAN MD To: ANDRIA Hoffman Nurse; Sent: 04/06/2016 07:46:52 REFINERY PIPELINE OPERATOR ! Show up: 04/06/2016 07:46:52 REFINERY PIPELINE OPERATOR Subject: Results Notification Actions: Notify patient of results Reminder Comments: ok Results: Date Result Name Ind Value Ref Range 04/05/2016 13:26 Sodium Lvl (L) 132 mmol/L (135 - 145) 04/05/2016 13:26 Potassium Lvl (H) 5.3 mmol/L (3.6 - 5.2) 04/05/2016 13:26 Chloride (L) 93 mmol/L (98 - 107) 04/05/2016 13:26 CO2 25 mmol/L (22 - 29) 04/05/2016 13:26 AGAP 14 mmol/L (7 - 15) 04/05/2016 13:26 Glucose Lvl 136 mg/dL (70 - 139) 04/05/2016 13:26 Creatinine 1.09 mg/dL (0.60 - 1.10) 04/05/2016 13:26 EGFR (MDRD) (L) 49 mL/min/1.73m2 (>=60 - ) 04/05/2016 13:26 EGFR (MDRD) (L) 59 mL/min/1.73m2 (>=60 - ) 04/05/2016 13:26 BUN 21 mg/dL (6 - 21) 04/05/2016 13:26 Calcium Lvl 10.3 mg/dL (8.8 - 10.3) [facility] POWERCHART Document Id: [id number] Miscellaneous - Neda Hoffman M.D. - 04/05/2016 1:16 PM CST Ambulatory Patient Summary [address] [id number] Visit Information Name: JACOB ANDINO [facility] Number: [id number] Current Date: 04/05/2016 13:16:21 Physicians Attending Provider: NEDA HOFFMAN MD Primary Care Provider: NEDA HOFFMAN MD BHARATH JACOB ANDREW has been given the following list [...] the Following Medications: Medication list as of 04-05-16 13:16 Attention: If you have any medications at [...] Electronically Signed By: NEDA HOFFMAN MD Signed On:05-APR-2016 13:16:07 Your Allergies & Intolerances Substance Reaction Symptoms [...] Time Location Provider 05/16/2016 13:15 [facility] Urology Verónica Escalante CNP Attention: [...] if you dont have one. Go to [email or web address] and click on Create Your Account. Then, follow the directions to complete the online form. Youll be asked for your [facility] number which you can find at the top of this document. Your Goals/Additional instructions: Source: [facility] POWERCHART Document Id: [id number] NERY PIPELINE OPERATOR Miscellaneous - Neda Hoffman M.D. - 04/05/2016 1:16 PM CST Ambulatory Discharge Medication List [address] [id number] Visit Information Name: JACOB ANDINO [facility] Number: [id number] Current Date: 04/05/2016 13:16:20 Attending Provider: NEDA HOFFMAN MD Primary Care [...] the Following Medications: Medication list as of 04-05-16 13:16 Attention: If you have any medications at [...] Electronically Signed By: NEDA HOFFMAN MD Signed On:05-APR-2016 13:16:07 Additional Information: Source: [facility] POWERCHART Document Id: [id number] NERY PIPELINE OPERATOR Miscellaneous - Levi Maloney L.PReginaN. - 04/05/2016 12:50 PM CST Adult Investigation Division Captain Intake/History Adult Investigation Division Captain Intake/History Entered On: 04/05/2016 12:54 REFINERY PIPELINE OPERATOR Performed On: 04/05/2016 12:50 REFINERY PIPELINE OPERATOR by LEVI MALONEY LPN Intake Chief Complaint : recheck Temperature Core : 36.2 DegC(Converted to: 97.2 DegF) (LOW) Peripheral Pulse Rate : 60 /min Respiratory Rate : 16 /min Heart Rhythm : Regular Systolic Blood Pressure : 132 mmHg Diastolic Blood Pressure : 64 mmHg NIBP Mean : 87 mmHg BP Location : Left upper extremity Blood Pressure Cuff Size : Regular Actual Weight : 71.50 kg(Converted to: 157 lb 10 oz) Weight Source : Standing scale Dosing Weight Clinic : 71.5 kg LEVI MALONEY GAME AUTHOR - 04/05/2016 12:50 REFINERY PIPELINE OPERATOR General Info Information Given By : Patient Languages : Amharic Is Patient Female and 13-50 no hysterectomy : No LEVI MALONEY GAME AUTHOR - 04/05/2016 12:50 REFINERY PIPELINE OPERATOR Subjective Pain Symptoms : No LEVI MALONEY LPN 04/05/2016 12:50 REFINERY PIPELINE OPERATOR Dependent Habits Exposure to Tobacco Smoke : Care provider denies smoking in home, Other: Never Smoking Status : Never smoker Tobacco 2A : No Tobacco Use/Currently Using : No Tobacco Use/Last 30 Days : No Tobacco Use/Last 12 months : No LEVI MALONEY GAME AUTHOR - 04/05/2016 12:50 REFINERY PIPELINE OPERATOR Caffeine Use Grid Caffeine Use : Current Type : Coffee Frequency : Daily LEVI MALONEY [facility] 04/05/2016 12:50 REFINERY PIPELINE OPERATOR Recreational Drug Use Grid Drug Use : None LEVI MALONEY GAME AUTHOR 04/05/2016 12:50 REFINERY PIPELINE OPERATOR Source: [facility] POWERCHART Document Id: [id number] REFINERY PIPELINE OPERATOR!36 NERY PIPELINE OPERATOR documented in this encounter Plan of Treatment Not on filedocumented as of this encounter Procedures Procedure Name Priority Date/Time Associated Diagnosis Comme nts BASIC METABOLIC Routine 04/05/2016 1:26 PM Result s for this PANEL, S/P REFINERY PIPELINE OPERATOR procedure are i n the results section. documented in this encounter Results (ABNORMAL) BMP (Basic Metabolic Panel) (04/05/2016 1:26 PM REFINERY PIPELINE OPERATOR) P athologist Signature Sodium, S 132 (L) 135 - 145 POWERCHART MMOLL Potassium, S 5.3 (H) 3.6 - 5.2 POWERCHART MMOLL Chloride, S 93 (L) 98 - 107 POWERCHART MMOLL CO2 Total 25 22 - 29 POWERCHART MMOLL Comment: Reference ranges have not been established for patients that are <12 months of age. BUN (Blood Urea Nitrogen), S 21 6 - 21 MGDL POWERCHART Creatinine 1.09 0.60 - 1.10 MGDL POWERCHART Calcium, Total, S 10.3 8.8 - 10.3 MGDL POWERC CIFUENTES Anion Gap 14 7 - 15 MMOLL POWERCHART HXeGFR (MDRD) 49 (L) >=60 [id number] POWERCHART eGFR Black/ 59 (L) >=60 [id number] POWERCHART Glucose 136 70 - 139 MGDL POWERCHART Specimen (Source) Anatomical Collection Method Collection Time Re ceived Time Location / / Volume Laterality Blood 04/05/2016 1:26 PM REFINERY PIPELINE OPERATOR Neda Hoffman M.D. LAB BLOOD ADD-ON Performing Organization Address City/State/ZIP Code Phon e Number POWERCHART documented in this encounter Visit Diagnoses Not on filedocumented in this encounter Additional Health Concerns Assessment Noted Time PHQ-9 Depression Total Score: 1 02/03/2016 8:15 AM REFINERY PIPELINE OPERATOR documented as of this encounter
--- OUTSIDE RECORDS SUMMARY | 2022-02-28 01:45 | XMS_ITS | Encounter Summary ---
:1940 Author Organization [facility] Address [address] [place] [address] Care Team Providers Name Role Phone Unavailable Primary Care Provider Unavailable Encounter Details Date Type Department Care Team Description 12/03/2015 Hospital Encounter HX [facility]HB INTERNMED Regulo Hoffman M.D. [address] [place] [address] 021 (Wo rk) Social History Tobacco Use Types Packs/Day Years Used Date Smoking Tobacco: Never Assessed Sex Assigned at Date Recorded Female 09/25/2017 1:20 PM CDT documented as of this encounter Last Filed Vital Signs Vital Sign Reading Time Taken Comments Blood Pressure 134/78 12/03/2015 2:40 PM CDT Pulse 80 12/03/2015 2:40 PM CDT Temperature - - Respiratory Rate 16 12/03/2015 2:40 PM CDT Oxygen Saturation - - Inhaled Oxygen Concentration - - Weight 134 kg (295 lb 6.7 oz) 12/03/2015 2:40 PM CDT Height - - Body Mass Index 55.06 08/18/2015 12:51 PM CDT documented in this [...] encounter Progress Notes Neda Hoffman M.D. - 12/03/2015 2:31 PM CDT [id number] CHIEF COMPLAINT/REASON FOR VISIT Recheck on cystitis. This is a rather complicated history of what happened here. I saw her on 11/04 and she had uncomplicated cystitis. I gave her Bactrim and 48 hours into that she developed severe dystonia with nausea, vomiting and stomachaches. She was told to stop the medicine and she got better but then a day or 2 later the cystitis came back with gross clots coming out of her urine and she went to the emergency room where she was given cephalexin. She took cephalexin 500 mg, the cephalexin resolved her problem andnow she just feels tired but she does have extreme complaints during the illness of large amounts ofblood coming out of her urine. This is obviously a very unusual case of cystitis because some blood is possible but large amounts of hematuria are not always classic for cystitis and I wonder if there is something wrong with her kidneys. As aforementioned, blood and burning of urination and so on have completely gone away, as have the stomach symptoms. Her only complaint at the moment is fatigue. She is chronically on 10 mg of prednisone a day for polymyalgia rheumatica and otherwise her old medicines are unchanged. MEDICATIONS See medicine list in EHR. ALLERGIES [...] documentation form for this visit. PHYSICAL EXAMINATION ENT: Conjunctivae and lids normal. PERRLA. EOMs normal. [...] fourthsound, no significant murmur, no gallop. MUSCULOSKELETAL: Costovertebral angles are nontender. Suprapubic area is nontender. IMPRESSION/REPORT/PLAN She will be examined today in the laboratory with a BMP, a CBC, a UA with reflex to culture, screening for both microscopic hematuria and any residual infection and a sedimentation rate. The patient will be scheduled for renal ultrasound to image the kidneys and then for her physical and mammogram I will schedule her in 6 weeks when she is due and at that time we can give her a flu shot as well. We will call her with the results of the tests. No medicines are prescribed today. Neda Hoffman M.D./kimmie Electronically Signed By: NEDA HOFFMAN MD On: 12/03/2015 04:51 PM Source: [facility] [email or web address] Document Id: [id number] documented in this encounter Miscellaneous Notes Telephone Encounter - Conversion, Historical Provider Ser - 12/07/2015 1:26 PM CDT *Phone Message Document Contains Addenda Addendum by JILLIAN HILLS PA-C on December 07, 2015 15:36:00 CDT From: JILLIAN HILLS PA-C To: ANDRIA Hoffman Nurse; Sent: 12/07/2015 15:36:00 CDT Subject: RE: *Phone Message I called in Cipro which is also sensative Addendum by PAOLA SANTILLAN LPN on December 07, 2015 14:49:15 CDT From: PAOLA SANTILLAN LPN (ANDRIA Hoffman Nurse) To: JILLIAN HILLS PA-C; Sent: 12/07/2015 14:49:15 CDT Subject: FW: *Phone Message Addendum by PAOLA SANTILLAN LPN on December 07, 2015 14:49:07 CDT Called and spoke to pharmacist. They do not stoke Ampicillin 500mg. They are wondering if it is okay for patient to wait to start taking medication until they can get it in or if something else can besent in. Please advise. From: PREM CABRERA (ANDRIA Hoffman Nurse) To: ANDRIA Hoffman Nurse; Sent: 12/07/2015 13:26:19 CDT ! Subject: *Phone Message Caller is: ( ) Patient ( ) Mother ( ) Father ( ) Spouse ( ) Daughter ( ) Son ( x-[place] ) Pharmacy ( ) Other: Physician: Patient MRN #: Reason for Call: Message: Pharmacy Ampicillin and pharmacy is wondering what to do they can order it for tomorrow or is there something else she should fill so paitnet can start today. [phone] Advice/Action: Source used: ( ) Verbalizes understanding [...] back cell phone number ( ) Source: [facility] POWERCHART Document Id: [id number] Miscellaneous - Neda Hoffman M.D. - 12/06/2015 8:19 PM CDT Results Notification Document Contains Addenda Addendum by PAOLA SANTILLAN LPN on December 07, 2015 10:36:32 CDT Patient notified. Patient is scheduled for an ultrasound today at 11:30am. From: NEDA HOFFMAN MD To: ANDRIA Hoffman Nurse; Sent: 12/06/2015 20:19:52 CDT ! Show up: 12/06/2015 20:19:52 CDT Subject: Results Notification Actions: Notify patient of results Reminder Comments: will send antibiotic and she needs renal US which i will schedule. All done . call and tell her Results: Date Result Type Ind Result Name MBO POS Culture Urine Source: [facility] POWERCHART Document Id: [id number] Electronically signed by Conversion, [facility] Travel Assistant [id number] at 08/21/2016 5:25 AM CDT Miscellaneous - Franchesca Christine M.D. - 12/04/2015 6:20 PM CDT Results Notification 12/03/2015 Document Contains Addenda Addendum by PAOLA SANTILLAN LPN on December 07, 2015 10:38:49 CDT Patient notified of results and Dr. Christine's recommendations. From: FRANCHESCA CHRISTINE MD To: Internal Medicine Nurse; Sent: 12/04/2015 18:20:43 CDT Show up: 12/04/2015 18:18:00 CDT Subject: Results Notification 12/03/2015 Actions: Notify patient of results, Notify Patient of Future Order Please call. Sodium is low, not new. Potassium is high. She needs to stop Spironolactone. Kidney function is declined since 04/22/2015. It could be due to diuretic Rx. Calcium is slightly high, which is new. She needs to recheck BMP next week. Order is in EHR. Results: Date Result Name Ind Value Ref Range 12/03/2015 15:19 Sodium Lvl (L) 132 mmol/L (135 - 145) 12/03/2015 15:19 Potassium Lvl (H) 5.7 mmol/L (3.6 - 5.2) 12/03/2015 15:19 Chloride (L) 93 mmol/L (98 - 107) 12/03/2015 15:19 CO2 23 mmol/L (22 - 29) 12/03/2015 15:19 AGAP (H) 16 mmol/L (7 - 15) 12/03/2015 15:19 Glucose Lvl (H) 171 mg/dL (70 - 139) 12/03/2015 15:19 Creatinine (H) 1.38 mg/dL (0.60 - 1.10) 12/03/2015 15:19 EGFR (MDRD) (L) 37 mL/min/1.73m2 (>=60 - ) 12/03/2015 15:19 EGFR (MDRD) (L) 45 mL/min/1.73m2 (>=60 - ) 12/03/2015 15:19 BUN (H) 45 mg/dL (6 - 21) 12/03/2015 15:19 Calcium Lvl (H) 10.5 mg/dL (8.8 - 10.3) Source: [facility] POWERCHART Document Id: [id number] Electronically signed by Conversion, [facility] Travel Assistant [id number] at 08/21/2016 5:25 AM CDT Miscellaneous - Neda Hoffman M.D. - 12/03/2015 4:35 PM CDT Results Notification Document Contains Addenda Addendum by LEVI MALONEY LPN on December 03, 2015 16:39:28 CDT called with results From: NEDA HOFFMAN MD To: ANDRIA Hoffman Nurse; Sent: 12/03/2015 16:35:26 CDT ! Show up: 12/03/2015 16:35:26 CDT Subject: Results Notification Actions: Notify patient of results Reminder Comments: quite abnormal but asymptomatic. proceed with renal eval Results: Date Result Name Ind Value Ref Range 12/03/2015 15:19 Hgb 15.1 g/dL (12.0 - 15.5) 12/03/2015 15:19 Hct (H) 45.5 % (34.9 - 44.5) 12/03/2015 15:19 WBC (H) 13.9 x10(9)/L (3.4 - 10.5) 12/03/2015 15:19 RBC (H) 5.24 x10(12)/L (3.90 - 5.03) 12/03/2015 15:19 MCV 86.8 fL (82.0 - 98.0) 12/03/2015 15:19 RDW 14.3 % (11.9 - 15.5) 12/03/2015 15:19 Platelet 431 x10(9)/L (150 - 450) 12/03/2015 15:19 Neutro Absolute (H) 11.90 10(9)/L (1.70 - 7.00) 12/03/2015 15:19 Lymph Absolute 1.48 x10(9)/L (0.90 - 2.90) 12/03/2015 15:19 [place] Absolute 0.49 x10(9)/L (0.30 - 0.90) 12/03/2015 15:19 Eos Absolute (L) 0.01 x10(9)/L (0.05 - 0.50) 12/03/2015 15:19 Baso Absolute 0.04 x10(9)/L (0.00 - 0.30) 12/03/2015 15:19 Sed Rate (H) 30 mm/hr (0 - 29) 12/03/2015 15:19 UA Color Yellow (Colorless - ) 12/03/2015 15:19 UA Clarity (*) Cloudy (Clear - ) 12/03/2015 15:19 UA Spec Grav 1.015 12/03/2015 15:19 UA pH 6.5 (<5.0 - ) 12/03/2015 15:19 UA Protein Negative mg/dL (Negative - ) 12/03/2015 15:19 UA Glucose Negative mg/dL (Negative - ) 12/03/2015 15:19 UA Ketones Negative mg/dL (Negative - ) 12/03/2015 15:19 UA Bili Negative (Negative - ) 12/03/2015 15:19 UA Urobilinogen 0.2 mg/dL (0.2 - ) 12/03/2015 15:19 UA Blood (*) Trace (Negative - ) 12/03/2015 15:19 UA Nitrite (*) Positive (Negative - ) 12/03/2015 15:19 UA Leuk Est (*) Moderate (Negative - ) 12/03/2015 15:19 UR WBC (*) 41-50 /HPF (None Seen - ) 12/03/2015 15:19 UR RBC Occ-2 /HPF (None Seen - ) 12/03/2015 15:19 UR Bacteria (*) Present (None Seen - ) Source: [facility] POWERCHART Document Id: [id number] Electronically signed by Conversion, [facility] Travel Assistant [id number] at 08/21/2016 5:25 AM CDT Miscellaneous - Neda Hoffman M.D. - 12/03/2015 3:09 PM CDT Ambulatory Patient Summary [address] [id number] Visit Information Name: VANESSA ANDINO [facility] Number: [id number] Current Date: 12/03/2015 15:09:18 Physicians Attending Provider: NEDA HOFFMAN MD Primary [...] the Following Medications: Medication list as of 12-03-15 15:09 Attention: If you have any medications at [...] Electronically Signed By: NEDA HOFFMAN MD Signed On:03-DEC-2015 15:08:35 Your Allergies & Intolerances Substance Reaction Symptoms [...] diabetes and lists emergency contact numbers ?? [phone] [place] [address]. All rights reserved. This information is not [...] if you dont have one. Go to [email or web address] and click on Create Your Account. Then, follow the directions to complete the online form. Youll be asked for your [facility] number which you can find at the top of this document. Your Goals/Additional instructions: This document has images extracted. Please consider using eduClipper for all your patient education needs. Source: [facility] POWERCHART Document Id: [id number] Miscellaneous - Neda Hoffman M.D. - 12/03/2015 3:09 PM CDT Ambulatory Discharge Medication List [address] [id number] Visit Information Name: VANESSA ANDINO KAMRAN [facility] Number: [id number] Visit Date: 12/03/2015 15:09:17 Attending Provider: NEDA HOFFMAN MD Primary Care [...] the Following Medications: Medication list as of 12-03-15 15:09 Attention: If you have any medications at [...] Electronically Signed By: NEDA HOFFMAN MD Signed On:03-DEC-2015 15:08:35 Additional Information: Source: [facility] POWERCHART Document Id: [id number] Miscellaneous - Levi Maloney L.P.N. - 12/03/2015 2:40 PM CDT Adult Technical Support Professional Intake/History Adult Technical Support Professional Intake/History Entered On: 12/03/2015 14:42 CDT Performed On: 12/03/2015 14:40 CDT by LEVI MALONEY LPN Intake Chief Complaint : post hospital Temperature Core : 36.8 DegC(Converted to: 98.2 DegF) Peripheral Pulse Rate : 80 /min Respiratory Rate : 16 /min Systolic Blood Pressure : 134 mmHg Diastolic Blood Pressure : 78 mmHg NIBP Mean : 97 mmHg BP Location : Left upper extremity Blood Pressure Cuff Size : Regular Actual Weight : 134 kg(Converted to: 295 lb 7 oz) Weight Source : Standing scale Dosing Weight Clinic : 134 kg LEVI MALONEY LPN - 12/03/2015 14:40 CDT General Info Information Given By : Patient Languages : Albanian Is Patient Female and 13-50 no hysterectomy : No LEVI MALONEY LPN - 12/03/2015 14:40 CDT Subjective Pain Symptoms : No LEVI MALONEY LPN - 12/03/2015 14:40 CDT Dependent Habits Exposure to Tobacco Smoke : Care provider denies smoking in home Smoking Status : Never smoker Tobacco 2A : No Tobacco Use/Currently Using : No Tobacco Use/Last 30 Days : No Tobacco Use/Last 12 months : No LEVI MALONEY LPN - 12/03/2015 14:40 CDT Caffeine Use Grid Caffeine Use : Current Type : Coffee Frequency : Daily LEVI MALONEY LPN - 12/03/2015 14:40 CDT Recreational Drug Use Grid Drug Use : None BRENDONLEVI EXHIBITS CURATOR - 12/03/2015 14:40 CDT Source: [facility] POWERCHART Document Id: [id number] CDT!35 documented in this encounter Plan of Treatment Not on filedocumented as of this encounter Procedures Procedure Name Priority Date/Time Associated Comments Diagnosis BACTERIAL CULTURE, Routine 12/03/2015 3:29 PM Res ults for this AEROBIC, URINE CDT procedure are in the results section. AUTOMATED Routine 12/03/2015 3:19 PM Results f or this DIFFERENTIAL, B CDT procedure ar e in the results section. URINALYSIS, MIDSTREAM, Routine 12/03/2015 3:19 PM Results for this WITH CULTURE IF CDT procedure ar e in INDICATED the results section. SEDIMENTATION RATE, B Routine 12/03/2015 3:19 PM Results for this CDT procedure are i n the results section. CBC WITH DIFFERENTIAL, Routine 12/03/2015 3:19 PM Results for this B CDT procedure are i n the results section. BASIC METABOLIC PANEL, Routine 12/03/2015 3:19 PM Results for this S/P CDT procedure are i n the results section. documented in this encounter Results (ABNORMAL) Bacterial Culture, Aerobic, Urine (12/03/2015 3:29 PM CDT) Analysis Performed At Patho logist Time Signature Bacterial EC 8 POWERCHART Culture, (POSITIVE) Aerobic, Urine HXPre GNR POWERCHART Comment: >100,000 cfu/mL Gram Negative R ods HXFinal EC POWERCHART Comment: >100,000 cfu/mL Escherichia col i Specimen Anatomical Collection Method Collection Time Receive d Time (Source) Location / / Volume Laterality Urine, First 12/03/2015 3:29 PM 6 3:29 Voided CDT PM CDT Organism Antibiotic Method Susceptibility Escherichia coli Ampicillin SUSCEPTIBILITY, REJI 8: Suscepti ble (MCG/ML) Escherichia coli Ampicillin + Sulbactam SUSCEPTIBILITY, REJI 4: S usceptible (MCG/ML) Escherichia coli Aztreonam SUSCEPTIBILITY, REJI <=1: [...] - GENERAL O RDERABLES Performing Organization Address City/State/[facility] Code Phon e Number POWERCHART (ABNORMAL) Automated Differential (12/03/2015 3:19 PM CDT) [facility] Method Time Signature Absolute 11.90 (H) 1.70 - POWERCHART Neutrophils 7.00 109L Lymphocytes 1.48 0.90 - POWERCHART 2.90 X109L Monocytes 0.49 0.30 - POWERCHART 0.90 X109L Eosinophils 0.01 (L) 0.05 - POWERCHART 0.50 X109L Absolute 0.04 0.00 - POWERCHART Basophil 0.30 X109L Specimen Anatomical Collection Method Collection Time Receive d Time (Source) Location / / Volume Laterality Blood 12/03/2015 3:19 PM 6 3:19 CDT PM CDT Neda Hoffman M.D. LAB BLOOD ADD-ON Performing Organization Address City/State/[facility] Code Phon e Number POWERCHART (ABNORMAL) Sedimentation Rate (12/03/2015 3:19 PM CDT) [facility] gist Method Time Signature Sedimentation 30 (H) 0 - 29 POWERCHART Rate, B MMHR Specimen (Source) Anatomical Collection Method Collection Time Re ceived Time Location / / Volume Laterality Blood 12/03/2015 3:19 PM CDT Neda Hoffman M.D. LAB BLOOD ADD-ON Performing Organization Address City/[facility]/ZIP Code Phon e Number POWERCHART (ABNORMAL) CBC with Differential (12/03/2015 3:19 PM CDT) [facility] Time Signature Leukocytes 13.9 (H) 3.4 - 10.5 POWERCHART X109L Erythrocytes 5.24 (H) 3.90 - POWERCHART 5.03 [id number] Hemoglobin 15.1 12.0 - POWERCHART 15.5 GDL Hematocrit 45.5 (H) 34.9 - POWERCHART 44.5 MCV 86.8 82.0 - POWERCHART 98.0 FL Platelet Count 431 150 - 450 POWERCHART X109L HX RDW 14.3 11.9 - POWERCHART 15.5 Specimen (Source) Anatomical Collection Method Collection Time Re ceived Time Location / / Volume Laterality Blood 12/03/2015 3:19 PM CDT Neda Hoffman M.D. LAB BLOOD ADD-ON Performing Organization Address City/[facility] Phon e Number POWERCHART (ABNORMAL) Urinalysis, Midstream, with culture if indicated (12/03/2015 3:19 PM CDT) [facility] gist Method Time Signature Clarity Cloudy (A) Clear POWERCHART HXUr Color Yellow Colorless POWERCHART Specific 1.015 POWERCHART [place], POCT, U pH, POCT, Urine 6.5 <5.0 POWERCHART Protein, Ur, Negative Negative POWERCHART Dip MGDL Glucose Negative Negative POWERCHART MGDL Ketones, QL(U) Negative Negative POWERCHART MGDL HXBILIRUBIN Negative Negative POWERCHART HXBLOOD Trace (A) Negative POWERCHART Leukocyte Moderate Negative POWERCHART Esterase (A) HXNITRITE Positive Negative POWERCHART (A) Urobilinogen 0.2 0.2 MGDL POWERCHART HXUR WBC. 41-50 (A) None Seen POWERCHART HPF HXUR RBC. Occ-2 None Seen POWERCHART HPF HXUR Bacteria, Present (A) None Seen POWERCHART Specimen (Source) Anatomical Collection Method Collection Time Re ceived Time Location / / Volume Laterality Urine, First 12/03/2015 3:19 PM Voided CDT Neda Hoffman M.D. LAB URINE ORDERABLES Performing Organization Address City/State/ZIP Code Phon e Number POWERCHART (ABNORMAL) BMP (Basic Metabolic Panel) (12/03/2015 3:19 PM CDT) Analysis Performed At Patho logist Time Signature Sodium, S 132 (L) 135 - 145 POWERCHART MMOLL Potassium, S 5.7 (H) 3.6 - 5.2 POWERCHART MMOLL Chloride, S 93 (L) 98 - 107 POWERCHART MMOLL CO2 Total 23 22 - 29 POWERCHART MMOLL BUN (Blood Urea 45 (H) 6 - 21 POWERCHART Nitrogen), S MGDL Creatinine 1.38 (H) 0.60 - POWERCHART 1.10 MGDL Calcium, Total, 10.5 (H) 8.8 - 10.3 POWERCHART S MGDL Anion Gap 16 (H) 7 - 15 POWERCHART MMOLL HXeGFR (MDRD) 37 (L) >=60 POWERCHART [id number] eGFR 45 (L) >=60 POWERCHART [place]/ [id number] [place] Glucose 171 (H) 70 - 139 POWERCHART MGDL Specimen (Source) Anatomical Collection Method Collection Time Re ceived Time Location / / Volume Laterality Blood 12/03/2015 3:19 PM CDT Neda Hoffman M.D. LAB BLOOD ADD-ON Performing Organization Address City/State/ZIP Code Phon e Number POWERCHART documented in this encounter Visit Diagnoses Not on filedocumented in this encounter
--- OUTSIDE RECORDS SUMMARY | 2022-02-28 01:45 | XMS_ITS | Encounter Summary ---
:1940 Author Organization [facility] Address [address] [place] [address] Care Team Providers Name Role Phone Unavailable Primary Care Provider Unavailable Encounter Details Date Type Department Care Team Description 04/05/2016 Hospital Encounter HX [facility] Regulo Hoffman M.D. [address] [place] [address] 021 (Wo rk) Social History Tobacco Use [...] Associated Comments Diagnosis SEDIMENTATION RATE, B Routine 04/05/2016 11:58 Re sults for this AM [facility] OUTSOLE procedure are i n the results section. documented in this encounter Results (ABNORMAL) Sedimentation Rate (04/05/2016 11:58 AM CH[facility]ER OUTSOLE) [facility] gist Method Time Signature Sedimentation 43 (H) 0 - 29 POWERCHART Rate, B MMHR Specimen (Source) Anatomical Collection Method Collection Time Re ceived Time Location / / Volume Laterality Blood 04/05/2016 11:58 AM [facility]SOLE Eliseo Hoffman M.D. LAB BLOOD ADD-ON Performing Organization Address City/State/ZIP Code Phon e Number POWERCHART documented in this encounter Visit Diagnoses Not on filedocumented in this encounter Additional Health Concerns Assessment Noted Time PHQ-9 Depression Total Score: 1 02/03/2016 8:15 AM CH[facility]SOLE documented as of this encounter
--- OUTSIDE RECORDS SUMMARY | 2022-02-28 01:45 | XMS_ITS | Encounter Summary ---
:1940 Author Organization [facility] Address [address] [place] [address] Care Team Providers Name Role Phone Unavailable Primary Care Provider Unavailable Encounter Details Date Type Department Care Team Description 04/18/2016 Hospital Encounter HX [facility] Tory Groves M.D. [address] [phone] (Wo rk) Social History Tobacco Use Types Packs/Day Years Used Date Smoking Tobacco: Never Sex Assigned at Date Recorded Female 09/25/2017 1:20 PM CDT documented as of this encounter Last Filed Vital Signs Vital Sign Reading Time Taken Comments Blood Pressure 138/76 04/18/2016 2:22 PM DIRECTOR OF HEMOPHILIA Pulse 84 04/18/2016 2:22 PM DIRECTOR OF HEMOPHILIA Temperature - - Respiratory Rate - - [...] a day. documented as of this encounter Procedure Notes Tory Groves M.D. - 04/18/2016 3:11 PM CST Basic Peripheral Nerve Evaluation Basic Evaluation (PNE) without fluoroscopy (CPT Code 37798) Indications: Markedly elevated post void residuals (in the 500-600 ml range), bordering on urinary retention. During this procedure the universal protocol was utilized. The patient's identity was confirmed by no less than two patient identifiers, correct procedure was verified, correct site was verified and marked as applicable and a final pause was completed. She was properly identified and placed in prone p osition. Pillows were placed under lower abdomen to flatten sacrum and under shins to allow the toesto dangle freely. A ground pad was placed on the bottom of the patients foot and the long test stimulation cable was connected to the ground pad and the external test stimulator. Patient was prepped and draped in usual sterile fashion. The sciatic notches and sacral midline were identified via palpation. The level of S3 was identified by measuring 9cm from the tip of the coccyx. Local injection of lidocaine was administered at foramen needle entry point located 2cm lateral to the sacral midline and 2cm cephalad of sciatic notch level. A 3.5foramen needle was introduced at an approximate 60 degree angle, feeling for the foraminal margins until S3 was identified. Proper needle position was confirmed by the patient identifying location of stimulation sensation; and direct observation of the lifting of the perineum or bellowing, and plantar flexion of the great toe utilizing the j-hook patient cable and the external test stimulator. The foramen needle stylet was removed and a percutaneous lead was inserted to proper depth identified by markers on the lead. The lead was tested by connecting the j-hook patient cable to the proximallead electrode and the external test stimulator. Upon response confirmation, the foramen needle was r emoved by sliding over the percutaneous lead. The foramen needle and lead stylet were removed while securing lead location. Retesting to confirm appropriate lead response was completed. The above procedure was performed again on the contralateral side. The leads were connected to the short test stimulation cables which were connected to ground pads placed on the patients lower back. Patient was cleaned and external cabling was secured by covering with transparent dressing. Estimated blood loss was minimal. Post procedure, the patient was programmed with the external test stimulator to optimum sensation via the lead and provided utilization instructions prior to discharge. Patient will complete a voidingdiary during testing period to help document results of this procedure. Electronically Signed By: TORY GROVES MD On: 04/18/2016 03:13 PM Source: [employer] POWERCHART Document Id: [id number] CTOR OF HEMOPHILIA documented in this encounter Miscellaneous Notes Miscellaneous - Tory Groves M.D. - 04/18/2016 3:11 PM CST Ambulatory Patient Summary [facility] [address] [place] [id number] Visit Information Name: JACOB ANDINO [facility] Number: [id number] Current Date: 04/18/2016 15:11:28 Physicians Attending Provider: TORY GROVES MD Primary Care Provider: NEDA BECK MD KELLEESANDEEPMirzaJACOBEN has been given the following list of [...] the Following Medications: Medication list as of 04-18-16 15:11 Attention: If you have any medications [...] Electronically Signed By: TORY GROVES MD Signed On:18-APR-2016 15:11:25 Your Allergies & Intolerances Substance Reaction Symptoms [...] Your Upcoming Appointments Date Time Location Provider 04/22/2016 08:15 [facility] Verónica Escalante CNP 05/16/2016 13:15 [facility] Verónica Escalante CNP [...] if you dont have one. Go to [email or web address] and click on Create Your Account. Then, follow the directions to complete the online form. Youll be asked for your [facility] number which you can find at the top of this document. Your Goals/Additional instructions: Source: [facility] POWERCHART Document Id: [id number] CTOR OF HEMOPHILIA Miscellaneous - Tory Groves M.D. - 04/18/2016 3:11 PM CST Ambulatory Discharge Medication List [facility] [address] [place], [place] [id number] Visit Information Name: JACOB ANDINO [facility] Number: [id number] Current Date: 04/18/2016 15:11:27 Attending Provider: TORY GROVES MD Primary Care Provider: NEDA BECK MD JACOB ANDINOEN has been given the following list [...] the Following Medications: Medication list as of 04-18-16 15:11 Attention: If you have any medications [...] Electronically Signed By: TORY GROVES MD Signed On:18-APR-2016 15:11:25 Additional Information: Source: [facility] POWERCHART Document Id: [id number] CTOR OF HEMOPHILIA Miscellaneous - Hilda Santana L.PReginaN. - 04/18/2016 2:22 PM CST Adult Operations Research Scientist Intake/History Adult Operations Research Scientist Intake/History Entered On: 04/18/2016 14:26 DIRECTOR OF HEMOPHILIA Performed On: 04/18/2016 14:22 DIRECTOR OF HEMOPHILIA by HILDA SANTANA LPN Intake Chief Complaint : Interstim procedure Temperature Core : 36.6 DegC(Converted to: 97.9 DegF) Peripheral Pulse Rate : 84 /min Heart Rhythm : Regular Systolic Blood Pressure : 138 mmHg Diastolic Blood Pressure : 76 mmHg NIBP Mean : 97 mmHg BP Location : Left upper extremity Blood Pressure Cuff Size : Regular HILDA SANTANA LPN - 04/18/2016 14:22 DIRECTOR OF HEMOPHILIA General Info Languages : Japanese Is Patient Female and 13-50 no hysterectomy : No HILDA SANTANA LPN - 04/18/2016 14:22 DIRECTOR OF HEMOPHILIA Subjective Pain Symptoms : No HILDA SANTANA LPN - 04/18/2016 14:22 DIRECTOR OF HEMOPHILIA Dependent Habits Exposure to Tobacco Smoke : Care provider denies smoking in home, Other: Never Smoking Status : Never smoker Tobacco 2A : No Tobacco Use/Currently Using : No Tobacco Use/Last 30 Days : No Tobacco Use/Last 12 months : No HILDA SANTANA LPN - 04/18/2016 14:22 DIRECTOR OF HEMOPHILIA Caffeine Use Grid Caffeine Use : Current Type : Coffee Frequency : Daily HILDA SANTANA LPN - 04/18/2016 14:22 DIRECTOR OF HEMOPHILIA Recreational Drug Use Grid Drug Use : None HILDA SANTANA LPN - 04/18/2016 14:22 DIRECTOR OF HEMOPHILIA [facility] Document Id: [id number] DIRECTOR OF HEMOPHILIA!31 CTOR OF HEMOPHILIA documented in this encounter Plan of Treatment Not on filedocumented as of this encounter Visit Diagnoses Not on filedocumented in this encounter Additional Health Concerns Assessment Noted Time PHQ-9 Depression Total Score: 1 02/03/2016 8:15 AM DIRECTOR OF HEMOPHILIA documented as of this encounter
--- OUTSIDE RECORDS SUMMARY | 2022-02-28 01:45 | XMS_ITS | Encounter Summary ---
:1940 Author Organization [facility] Address [address] [place] [address] Care Team Providers Name Role Phone Unavailable Primary Care Provider Unavailable Encounter Details Date Type Department Care Team Description 02/01/2016 Hospital Encounter HX [facility] Tory Groves M.D. [address] [place] [phone] (Wo rk) Social History Tobacco Use Types Packs/Day Years Used Date Smoking Tobacco: Never Assessed Sex Assigned at Date Recorded Female 09/25/2017 1:20 PM CDT documented as of this encounter Last Filed Vital Signs Vital Sign Reading Time Taken Comments Blood Pressure 138/72 02/01/2016 11:01 AM STORAGE RECEIPT POSTER Pulse 68 02/01/2016 11:01 AM STORAGE RECEIPT POSTER Temperature - - Respiratory Rate - - [...] a day. documented as of this encounter Consult Notes Tory Groves M.D. - 02/01/2016 10:40 AM CST [id number] CHIEF COMPLAINT/REASON FOR VISIT Urinary tract infection. HISTORY OF PRESENT ILLNESS This is a 75-year-old female who I was asked to see by Neda Hoffman MD. The patient has had 2 documented urinary tract infections in the last 12 months, both of which were E. coli. Symptoms usually presented with foul-smelling urine and if this was ignored she presented with hematuria. She recentlyhad a renal ultrasound which demonstrates an elevated postvoid residual of 260 mL. There is no evidence of hydronephrosis or upper tract changes. The patient admits to urinary urgency with some leakage. She denies stress incontinence. She does not otherwise have a history of hematuria. Denies frequency, urgency and nocturia. She feels as though she empties her bladder well. She does try leaning forward and pushing on her bladder when she voids. PAST MEDICAL/SURGICAL HISTORY 1. Hyperlipidemia. 2. Hypertension. 3. Varicose veins. 4. Degenerative joint disease. 5. Diabetes mellitus type 2. 6. Polymyalgia rheumatica. MEDICATIONS Aspirin 81 mg daily. Calcium with vitamin D daily. Clonidine 0.3 mg at bedtime. Desonide cream as directed. Furosemide 40 mg daily. Losartan 100 mg daily. Multivitamin once daily. Prednisone 10 mg daily. Spironolactone 50 mg daily. ALLERGIES Oxycodone and sulfa. FAMILY HISTORY Negative for urological disease in parents and siblings. SOCIAL HISTORY The patient is . 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 She does not use tobacco, alcohol, or recreational drugs. SYSTEMS REVIEW See personal history form dated 02/01/2016. PHYSICAL EXAMINATION VITAL SIGNS: Temperature 36.2, heart rate 68, blood pressure 138/72. GENERAL: Alert, oriented, cooperative female in no apparent distress. No communication barriers. Well nourished, well developed. HEAD: Normocephalic, atraumatic. Normal facies. NECK: Supple. RESPIRATORY: Normal respiratory effort. No shortness of breath. ABDOMEN: Soft. EXTREMITIES: Normal gait. No cyanosis, clubbing or edema. DIAGNOSTICS Bladder scan postvoid residual was performed, it was 370 mL. About 10 minutes later she was asked tovoid again so we could recheck a residual, it was 406 mL. IMPRESSION/REPORT/PLAN 1. Incomplete bladder emptying, essentially at the point of being urinary retention. 2. Occasional urinary tract infections. RECOMMENDATIONS: At this point, the patient is not convinced that there is actually a problem. As such, we have decided to go slow. We will have her come back in a week or 2 and recheck a postvoid residual. She feels that the residual may have been elevated artificially because she was quite anxious about this appointment. In the event that her residual continues to be as elevated as it is we will need to proceed with a pelvic exam to see if there is any evidence of significant prolapse or other causes to cause poor bladder emptying. In the event that her bladder empties this poorly will need to consider intermittent catheterization, potential of an InterStim, or simply leaving things alone until they get worse. She may also be a candidate for a pessary if there is significant bladder prolapse asa contributing factor to urinary leakage. At this time the patient was not real anxious to proceed with any further investigation but does agree to come back in the near future. Tory Groves M.D./kimmie cc: Neda Hoffman M.D. [facility] [place] [address] Electronically Signed By: TORY GROVES MD On: 02/03/2016 02:39 PM Modified by and Electronically Signed by: TORY GROVES MD On: 02/03/2016 02:39 PM Source: [facility] MHSDOLBEYNONRADSYS Document Id: [id number] AGE RECEIPT POSTER documented in this encounter Nursing Notes Zenaida Kellogg L.P.N. - 02/01/2016 11:04 AM CST Urology Intake Urology Intake Entered On: 02/01/2016 11:06 STORAGE RECEIPT POSTER Performed On: 02/01/2016 11:04 STORAGE RECEIPT POSTER by ZENAIDA KELLOGG LPN Urology Intake Incontinent of Urine : No ZENAIDA KELLOGG LPN - 02/01/2016 11:04 STORAGE RECEIPT POSTER Urology Intake Grid Does coughing cause you to lose urine? : Never Does coughing hard cause you to lose urine? : Never Does sneezing cause you to lose urine? : Never Does lifting things cause you to lose urine? : Never Does bending cause you to lose urine? : Never Does laughing cause you to lose urine? : Never Does walking briskly or jogging cause you to lose urine? : Never Does straining if you are constipated cause you to lose urine? : Never Does getting up from a sitting to standing position cause you to lose urine? : Never ZENAIDA KELLOGG LPN - 02/01/2016 11:04 STORAGE RECEIPT POSTER Have or Had the Following : Bladder surgery, Hematuria, Menopause, Diagnosed with Frequent UTIs : No More than Two UTI's in 12 Months : Yes ZENAIDA KELLOGG LPN - 02/01/2016 11:04 STORAGE RECEIPT POSTER Source: [facility] adhoclabsCHART Document Id: [id number] STORAGE RECEIPT POSTER!15 AGE RECEIPT POSTER documented in this encounter Miscellaneous Notes Miscellaneous - Tory Groves M.D. - 02/01/2016 3:42 PM CST Results Notification Document Contains Addenda Addendum by DEXTER ALMARAZ LPN on February 01, 2016 16:57:59 STORAGE RECEIPT POSTER Patient aware and prescription to [facility]. From: TORY GROVES MD To: Urology Nurse; Sent: 02/01/2016 15:42:59 STORAGE RECEIPT POSTER ! Show up: 02/01/2016 15:42:59 STORAGE RECEIPT POSTER Subject: Results Notification Actions: Notify patient of results Reminder Comments: UTI - Ceftin 250 mg po bid #14 Results: Date Result Name Ind Value Ref Range 02/01/2016 11:26 UA Color Yellow (Colorless - ) 02/01/2016 11:26 UA Clarity (*) Cloudy (Clear - ) 02/01/2016 11:26 UA Spec Grav 1.015 02/01/2016 11:26 UA pH 7.0 (<5.0 - ) 02/01/2016 11:26 UA Protein Negative mg/dL (Negative - ) 02/01/2016 11:26 UA Glucose Negative mg/dL (Negative - ) 02/01/2016 11:26 UA Ketones Negative mg/dL (Negative - ) 02/01/2016 11:26 UA Bili Negative (Negative - ) 02/01/2016 11:26 UA Urobilinogen 0.2 mg/dL (0.2 - ) 02/01/2016 11:26 UA Blood (*) Small (Negative - ) 02/01/2016 11:26 UA Nitrite Negative (Negative - ) 02/01/2016 11:26 UA Leuk Est (*) Large (Negative - ) 02/01/2016 11:26 UR WBC (*) 51-100 /HPF (None Seen - ) 02/01/2016 11:26 UR RBC None Seen /HPF (None Seen - ) 02/01/2016 11:26 UR Transitional Cells (*) Occ-3 /HPF (None Seen - ) 02/01/2016 11:26 UR Squamous Epi Cells (*) 11-20 /HPF (None Seen - ) 02/01/2016 11:26 UR Bacteria (*) Present (None Seen - ) Source: [facility] POWERCHART Document Id: [id number] Miscellaneous - Tory Groves M.D. - 02/01/2016 12:06 PM CST Ambulatory Patient Summary [address] [id number] Visit Information Name: KELLEESANDEEPMirzaVANESSA KAMRAN [facility] Number: [id number] Current Date: 02/01/2016 12:06:57 Physicians Attending Provider: TORY GROVES MD Primary Care Provider: NEDA HOFFMAN MD [...] the Following Medications: Medication list as of 02-01-16 12:06 Attention: If you have any medications at [...] Electronically Signed By: TORY GROVES MD Signed On:01-FEB-2016 12:06:53 Your Allergies & Intolerances Substance Reaction Symptoms [...] Your Upcoming Appointments Date Time Location Provider 02/03/2016 08:15 [facility] Neda Hoffman MD 02/15/2016 09:15 [facility] Tory Groves MD Attention: Contact your local Clinic [...] if you dont have one. Go to [email or web address] and click on Create Your Account. Then, follow the directions to complete the online form. Youll be asked for your [facility] number which you can find at the top of this document. Your Goals/Additional instructions: Source: [facility] POWERCHART Document Id: [id number] AGE RECEIPT POSTER Miscellaneous - Tory Groves M.D. - 02/01/2016 12:06 PM CST Ambulatory Discharge Medication List [address] [id number] Visit Information Name: VANESSA ANDINO [facility] Number: [id number] Current Date: 02/01/2016 12:06:56 Attending Provider: TORY GROVES MD Primary Care Provider: NEDA HOFFMAN MD KELLEESANDEEPMirzaVANESSA KAMRAN has been given the following list [...] the Following Medications: Medication list as of 02-01-16 12:06 Attention: If you have any medications at [...] Electronically Signed By: TORY GROVES MD Signed On:01-FEB-2016 12:06:53 Additional Information: Source: [facility] adhoclabsCHART Document Id: [id number] AGE RECEIPT POSTER Miscellaneous - Zenaida Kellogg, L.P.N. - 02/01/2016 11:01 AM CST Adult Dispatcher Maintenance Service Intake/History Adult Dispatcher Maintenance Service Intake/History Entered On: 02/01/2016 11:04 STORAGE RECEIPT POSTER Performed On: 02/01/2016 11:01 STORAGE RECEIPT POSTER by ZENAIDA KELLOGG LPN Intake Chief Complaint : consult uti-patient states she got really sick from a past uti had blood in her urine and she could barely walk Temperature Core : 36.2 DegC(Converted to: 97.2 DegF) (LOW) Peripheral Pulse Rate : 68 /min Systolic Blood Pressure : 138 mmHg Diastolic Blood Pressure : 72 mmHg NIBP Mean : 94 mmHg BP Location : Left upper extremity Blood Pressure Cuff Size : Regular BESS ZENAIDACHRISTY Love LPN - 02/01/2016 11:01 STORAGE RECEIPT POSTER General Info Information Given By : Patient Preferred Communication Mode : Verbal Languages : Honduran Is Patient Female and 13-50 no hysterectomy : No ZENAIDA KELLOGG LPN - 02/01/2016 11:01 STORAGE RECEIPT POSTER Subjective Pain Symptoms : No ZENAIDA KELLOGG LPN - 02/01/2016 11:01 STORAGE RECEIPT POSTER Dependent Habits Exposure to Tobacco Smoke : Care provider denies smoking in home Smoking Status : Never smoker Tobacco 2A : No Tobacco Use/Currently Using : No Tobacco Use/Last 30 Days : No Tobacco Use/Last 12 months : No Alcohol Use : No ZENAIDA KELLOGG LPN - 02/01/2016 11:01 STORAGE RECEIPT POSTER Caffeine Use Grid Caffeine Use : Current Type : Coffee Frequency : Daily ZENAIDA KELLOGG LPN - 02/01/2016 11:01 STORAGE RECEIPT POSTER Recreational Drug Use Grid Drug Use : None ZENAIDA KELLOGG LPN - 02/01/2016 11:01 STORAGE RECEIPT POSTER Source: [facility] PlanGrid Document Id: [id number] STORAGE RECEIPT POSTER!32 AGE RECEIPT POSTER documented in this encounter Plan of Treatment Not on filedocumented as of this encounter Procedures Procedure Name Priority Date/Time Associated Comments Diagnosis URINALYSIS WITH Routine 02/01/2016 11:26 Results for this MICROSCOPIC AM STORAGE RECEIPT POSTER procedure are i n the results section. BACTERIAL CULTURE, Routine 02/01/2016 11:26 Resul ts for this AEROBIC, URINE AM STORAGE RECEIPT POSTER procedure are in the results section. documented in this encounter Results (ABNORMAL) Urinalysis, Complete, Includes Microscopic (02/01/2016 11:26 AM STORAGE RECEIPT POSTER) Patholo gist Method Time Signature Clarity Cloudy (A) Clear POWERCHART HXUr Color Yellow Colorless POWERCHART Specific 1.015 POWERCHART [place], POCT, U Comment: Reference Range Specific [place]: 1.000-1.035 pH, POCT, Urine 7.0 <5.0 POWERCHART Comment: Reference Range pH: 5.0-8.0 Protein, Ur, Dip Negative Negative MGDL POWERCHAR T Glucose Negative Negative MGDL POWERCHART Ketones, QL(U) Negative Negative MGDL POWERCHART HXBILIRUBIN Negative Negative POWERCHART HXBLOOD Small (A) Negative POWERCHART Leukocyte Esterase Large (A) Negative POWERCHART HXNITRITE Negative Negative POWERCHART Urobilinogen 0.2 0.2 MGDL POWERCHART Comment: Reference Range Urobilinogen: 0.2-1.0 mg/dL HXUR WBC. 51-100 (A) None Seen HPF POWERCHART HXUR RBC. None Seen None Seen HPF POWERCHART Transitional Cells Occ-3 (A) None Seen HPF POWERCH ART Squamous Epithelial 11-20 (A) None Seen HPF POWERC CIFUENTES HXUR Bacteria, Present (A) None Seen POWERCHART Specimen (Source) Anatomical Collection Method Collection Time Re ceived Time Location / / Volume Laterality Urine, First 02/01/2016 11:26 Voided AM STORAGE RECEIPT POSTER Tory Groves M.D. LAB URINE ORDERABLES Performing Organization Address City/State/ZIP Code Phon e Number POWERCHART (ABNORMAL) Bacterial Culture, Aerobic, Urine (02/01/2016 11:26 AM STORAGE RECEIPT POSTER) Analysis Performed At Patho logist Time Signature Bacterial EC <=2 POWERCHART Culture, (POSITIVE) Aerobic, Urine HXPre EC POWERCHART Comment: 50,000 - 100,000 cfu/mL Escherichia coli Including Mixed miriam (multiple species present) HXFinal EC POWERCHART Comment: 50,000 - 100,000 cfu/mL Escherichia coli Including Mixed miriam (multiple species present) Specimen (Source) Anatomical Collection Method Collection Time Re ceived Time Location / / Volume Laterality Urine, First 02/01/2016 11:26 Voided AM STORAGE RECEIPT POSTER Organism Antibiotic Method Susceptibility Escherichia coli Ampicillin SUSCEPTIBILITY, REJI <=2: Suscep tible (MCG/ML) Escherichia coli Ampicillin + Sulbactam SUSCEPTIBILITY, [...] (MCG/ML) Escherichia coli Piperacillin + Tazobactam SUSCEPTIBILITY, RJEI < =4: Susceptible (MCG/ML) Escherichia coli Trimethoprim + SUSCEPTIBILITY, REJI <=20: Susce ptible Sulfamethoxazole (MCG/ML) Escherichia coli Tobramycin SUSCEPTIBILITY, REJI <=1: Suscep tible (MCG/ML) Tory Groves M.D. LAB MICROBIOLOGY - GENERAL O RDERABLES Performing Organization Address City/State/ZIP Code Phon e Number POWERCHART documented in this encounter Visit Diagnoses Not on filedocumented in this encounter
--- OUTSIDE RECORDS SUMMARY | 2022-02-28 01:45 | XMS_ITS | Encounter Summary ---
:1940 Author Organization [facility] Address [address] [place] [address] Care Team Providers Name Role Phone Unavailable Primary Care Provider Unavailable Encounter Details Date Type Department Care Team Description 01/07/2016 Hospital Encounter HX [facility] MAMMO Eliseo Hoffman M.D. [address] [place] [address] [phone] (Wo rk) Social History Tobacco [...] Diagnosis Comme nts BI BREAST SCREENING Routine 01/07/2016 10:47 AM R esults for this BILATERAL CDT procedure are i n the results section. documented in this encounter Results BI Breast Screening Bilateral (01/07/2016 10:47 AM CDT) Anatomical Region Laterality Modality Breast Bilateral Mammography Specimen (Source) Anatomical Collection Method Collection Time Re ceived Time Location / / Volume Laterality 01/07/2016 10:47 AM CDT Addenda Addendum by Provider, Estella Kang 01/07/2016 10:47 AM CDT RAD^^^OW [place] Mammo Screening w ??CADD 01/07/2016 10:47:38 Impressions 01/07/2016 12:05 PM CDT 1. Negative, normal mammogram, ACR categ ory 1. 2. I recommend routine yearly mammograms on this patient. BREAST MAMMOGRAPHY-GENERAL OBSERVATION: The false negative rate for mammography is 10 to 15%. It cannot be u sed, therefore, to replace regular physical examination. A normal o r noncontributory mammogram report should also not deter the aggress edna further workup of any suspected palpable masses. Narrative 01/07/2016 12:05 PM CDT EXAM: [facility] Mammo Screening w/ CADD Bilateral craniocaudal and oblique views of the breasts were obtained digitally, and compared to the patient's prior studies of 12/22/2014 and prior. Computer Aided Detection was utilized during the interpretation of this exam. The breast parenchyma remains predominan tly fatty and fibroglandular in appearance. There are no suspicious g rouping of calcifications, dominant nodules, areas of skin thickeni ng or nipple retraction to suggest malignancy. Procedure Note Cirilo James D.O. / Jaye Ashraf M.D. - 07/30/2016 EXAM: [facility] Mammo Screening w/ CADD Bilateral craniocaudal and oblique views of the breasts were obtained digitally, and compared to the patient's prior studies of 12/22/2014 and prior. Computer Aided Detection was utilized during the interpretation of this exam. The breast parenchyma remains predominan tly fatty and fibroglandular in appearance. There are no suspicious g rouping of calcifications, dominant nodules, areas of skin thickeni ng or nipple retraction to suggest malignancy. IMPRESSION: 1. Negative, normal mammogram, ACR categ ory 1. 2. I recommend routine yearly mammograms on this patient. BREAST MAMMOGRAPHY-GENERAL OBSERVATION: The false negative rate for mammography is 10 to 15%. It cannot be u sed, therefore, to replace regular physical examination. A normal o r noncontributory mammogram report should also not deter the aggress edna further workup of any suspected palpable masses. Historical Provider IMG BI PROCEDURES documented in this encounter Visit Diagnoses Not on filedocumented in this encounter
--- OUTSIDE RECORDS SUMMARY | 2022-02-28 01:45 | XMS_ITS | Encounter Summary ---
:1940 Author Organization [facility] Address [address] [place] [id number] Care Team Providers Name Role Phone Unavailable Primary Care Provider Unavailable Encounter Details Date Type Department Care Team Description 12/14/2015 Hospital Encounter HX [facility] FB LAB Terrence Christine M.D. [address] [facility], [facility] [address] [phone] Social History Tobacco Use Types Packs/Day [...] of this encounter Miscellaneous Notes Miscellaneous - Terrence Christine M.D. - 12/15/2015 2:51 PM CDT Results Notification From: TERRENCE CHRISTINE MD To: NEDA BECK MD; Cc: LEVI OLIVAS LPN; Sent: 12/15/2015 14:51:48 CDT Show up: 12/15/2015 14:52:00 CDT Subject: Results Notification Results: Date Result Name Ind Value Ref Range 12/14/2015 10:25 Sodium Lvl (L) 134 mmol/L (135 - 145) 12/14/2015 10:25 Potassium Lvl 3.9 mmol/L (3.6 - 5.2) 12/14/2015 10:25 Chloride (L) 95 mmol/L (98 - 107) 12/14/2015 10:25 CO2 25 mmol/L (22 - 29) 12/14/2015 10:25 AGAP 14 mmol/L (7 - 15) 12/14/2015 10:25 Glucose Lvl 133 mg/dL (70 - 139) 12/14/2015 10:25 Creatinine 0.95 mg/dL (0.60 - 1.10) 12/14/2015 10:25 EGFR (MDRD) (L) 57 mL/min/1.73m2 (>=60 - ) 12/14/2015 10:25 EGFR (MDRD) >60 mL/min/1.73m2 (>=60 - ) 12/14/2015 10:25 BUN (H) 28 mg/dL (6 - 21) 12/14/2015 10:25 Calcium Lvl 9.2 mg/dL (8.8 - 10.3) Source: [facility] GuideWallCHART Document Id: [id number] Electronically signed by Conversion, [facility] Job Service Consultant [id number] at 08/21/2016 4:12 AM CDT documented in this encounter Plan of Treatment Not on filedocumented as of this encounter Procedures Procedure Name Priority Date/Time Associated Diagnosis Comme nts BASIC METABOLIC Routine 12/14/2015 10:25 AM Resul ts for this PANEL, S/P CDT procedure are i n the results section. documented in this encounter Results (ABNORMAL) BMP (Basic Metabolic Panel) (12/14/2015 10:25 AM CDT) P athologist Signature Sodium, S 134 (L) 135 - 145 POWERCHART MMOLL Potassium, S 3.9 3.6 - 5.2 POWERCHART MMOLL Chloride, S 95 (L) 98 - 107 POWERCHART MMOLL CO2 Total 25 22 - 29 POWERCHART MMOLL BUN (Blood Urea 28 (H) 6 - 21 POWERCHART Nitrogen), S MGDL Creatinine 0.95 0.60 - POWERCHART 1.10 MGDL Calcium, Total, 9.2 8.8 - 10.3 POWERCHART S MGDL Anion Gap 14 7 - 15 POWERCHART MMOLL HXeGFR (MDRD) 57 (L) >=60 POWERCHART [id number] eGFR >60 >=60 POWERCHART Black/ [id number] Nauruan Glucose 133 70 - 139 POWERCHART MGDL Specimen (Source) Anatomical Collection Method Collection Time Re ceived Time Location / / Volume Laterality Blood 12/14/2015 10:25 AM CDT Terrence Christine M.D. LAB BLOOD ADD-ON Performing Organization Address City/State/ZIP Code Phon e Number POWERCHART documented in this encounter Visit Diagnoses Not on filedocumented in this encounter
--- OUTSIDE RECORDS SUMMARY | 2022-02-28 01:46 | XMS_ITS | Encounter Summary ---
:1940 Author Organization [facility] Address [address] [place] [id number] Care Team Providers Name Role Phone Unavailable Primary Care Provider Unavailable Encounter Details Date Type Department Care Team Description 12/02/2013 Hospital Encounter HX [facility] INTERNMED Regulo Hoffman M.D. [address] [place] [address] 021 (Wo rk) Social History Tobacco Use Types Packs/Day Years Used Date Smoking Tobacco: Never Assessed Sex Assigned at Date Recorded Female 09/25/2017 1:20 PM CDT documented as of this encounter Last Filed Vital Signs Vital Sign Reading Time Taken Comments Blood Pressure 138/76 12/02/2013 8:17 AM CDT Pulse - - Temperature - - Respiratory Rate - - Oxygen Saturation - - Inhaled Oxygen Concentration - - Weight 69 kg (152 lb 1.9 oz) 12/02/2013 8:17 AM CDT Height 155 cm (5' 1.02) 12/02/2013 8:17 AM CDT Body Mass Index 28.72 12/02/2013 8:17 AM CDT documented in this encounter Medications [...] encounter H&P Notes Neda Hoffman M.D. - 12/02/2013 8:11 AM CDT [id number] CHIEF COMPLAINT/REASON FOR VISIT Preventive medicine visit with acute problems. HISTORY OF PRESENT ILLNESS Acute problems: 1. Hypertension. The patient's blood pressure is well controlled with just a diuretic pill. She has no evidence of target organ damage or clinical cardiovascular disease. Electrolytes will be checked. 2. Pain in the right wrist. This has been a problem. We have injected in the past. If she wishes, I can inject again. The last time was about 8 months ago. We had a very good result. 3. Dyslipidemia, diet controlled. Lipid panel will be checked, see how she is doing. 4. DJD. This is predominantly in her carpometacarpal joint of the right hand and her right wrist. Examination will disclose which is painful for her at the moment. 5. Malaise and fatigue. The patient is experiencing some malaise and fatigue. She is not very concerned about this. She feels it is probably constitutional or related to aging, but she wants to be surethere are no metabolic abnormalities. MEDICATIONS Per EMR. ALLERGIES Per EMR. SYSTEMS REVIEW Review of systems in all areas except as mentioned above is negative. She is basically well and continuing to work at [employer]. PAST MEDICAL/SURGICAL HISTORY Per [facility] electronic medical record. PREVENTIVE SERVICES: Per [facility] electronic medical record. Handwashing done prior to patient contact. SOCIAL HISTORY She is . She does not smoke. She has the rarest of social alcohol. FAMILY HISTORY There are no first-degree relatives with colorectal cancer, breast cancer, cervical, ovarian or uterine cancer. VITAL SIGNS Per EMR. PHYSICAL EXAMINATION SKIN: Inspection of the skin and subcutaneous tissue reveals nothing inconsistent with age. EYES: Conjunctiva and lids are normal. Pupils are equal, round, reactive to light and accommodation.Extraocular movements normal. Sclera nonicteric. Fundi sharp discs bilaterally without diabetic or hypertensive changes. ENT: Tympanic membranes okay on both sides. Hearing grossly normal to scratch test. Nasal mucosa without erythema or congestion. No sinus tenderness. Mouth without erythema or exudate, no leuko or erythroplakia. [place] teeth, top and bottom. Dental hygiene is good. LYMPH NODES: Neck is supple. Carotid upstrokes +2 bilaterally. No carotid bruits. No adenopathy. THYROID: No thyromegaly. BREASTS: Palpation of the breasts is without mass or discharge. There is no axillary or supraclavicular adenopathy. There is no nipple inversion or dimpling of the skin. PERIPHERAL VESSELS: There are good femoral, popliteal and dorsalis pedis pulses bilaterally. There are no bruits over the femoral arteries. HEART: Central venous pressure is normal at 7 to 8 centimeters of water or less; there is a normal systolic collapse of the jugular venous pulse; there is not a positive hepatojugular reflex. Heart tones are in sinus rhythm; S1 and S2 normal, physiologic splitting of the second heart tone, no third orfourth sound, no significant murmur, no gallop. LUNGS: Lung mitchell are clear to auscultation and percussion with normal respiratory rate and effort. ABDOMEN: Soft and nondistended. No organomegaly. No focal mass or tenderness. The abdominal aorta isnot enlarged to palpation. There are no bruits over the abdomen. There are no hernias. There is no costovertebral angle tenderness. RECTUM: Deferred. GENITALIA: Deferred. SPINE: No cervical, thoracic or lumbar tenderness to deep palpation. EXTREMITIES: Warm, dry and noncyanotic without clubbing or peripheral edema. GAIT: Normal. NEUROLOGIC: Cranial nerves II to XII are grossly intact. Reflexes in the upper and lower extremitiesare bilaterally symmetric. Toes are downgoing. There is no dysmetria. Light touch testing in the lower extremities is normal. MUSCULOSKELETAL: She does have pain, not over the carpometacarpal joint today, but over the right wrist joint. IMPRESSION/REPORT/PLAN ACTIVE PROBLEMS: 1. Wrist osteoarthritis. After discussion risks versus benefit and advantages/disadvantages, she wishes to have an injection. I prepped with Betadine and, following the universal protocol and aseptic conditions, injected 0.5 mL of 1% lidocaine and 10 mg of Kenalog. There was immediate relief. Band-aidapplied. No complications. Call if redness, pain, or swelling. 2. Hypertension, well controlled. Check electrolytes. Continue current medication. 3. Dyslipidemia, diet controlled. Patient is working on diet. Lipid panel is done today to assess whether they are successful. 4. Malaise and fatigue, probably constitutional. Nothing clearly found on examination, but we will check a hemoglobin, TSH and glucose to rule out metabolic problems. INACTIVE PROBLEMS: Please see past medical history. HEALTH MAINTENANCE CONCERNS: Instructed to have a complete physical examination once a year, to see an manager multicultural or surgical services manager once a year for glaucoma screening, and see the dentist at least once or twice a year. Instructed to wear seatbelts when in a motor vehicle . Questioned about symptoms of domestic abuse and there are none. She will have mammograms performed once a year and she will do breast self-examinations once a month. She was instructed in the principles of breast self-examination and demonstrated competency in the office. The patient was recommended to drink at least 6 glasses of plain water each day, have 5 servings of fruits and vegetables each day, and get good aerobic exerc ise. I also recommended she take a generic multivitamin without iron once a day. She is due for a mammogram in about 2 weeks, but she has a card already so that she can schedule that. We do not want todo that too early or Medicare will not pay for it. She will get a flu shot between January 08 and February 08, and will call her with the results of her tests. STUDIES DONE TODAY: She had today a BMP, a hemoglobin, a TSH, a UA with micro, a lipid panel. Will call her with test results. Neda Hoffman M.D./kimmie Electronically Signed By: NEDA HOFFMAN MD On: 12/02/2013 10:14 AM Source: [facility] MHSDOLBEYNONRADSYS Document Id: [id number] documented in this encounter Nursing Notes Neda Hoffman M.D. - 12/02/2013 8:20 AM CDT Ambulatory Patient Education The following Patient Education Materials have been given to the patient: Patient Education Materials: VARICOSE VEINS Varicose Veins Arteries carry oxygenated blood from the heart to the organs of the body, and veins carry blood backto the heart. Varicose veins are enlarged twisted veins, most often found in the legs. Tiny one-way valves normally prevent the blood from flowing backward in the vein. In varicose veins these valves dont work properly and the excess blood stretches the vein wall, causing this condition. Usually, varicose veins cause no symptoms, but in some people there is aching, throbbing, and discomfort. Sometimes a vein close to the skin may break and cause bleeding. Prolonged sitting or standing may make these symptoms worse. Older women are more likely to develop varicose veins. Prolonged standing also increases your risk. Varicose veins can occur during , but usually go away a few months after delivery. Treatment begins with simple self-help measures (see below). If these dont help, there are many different procedures that can be done to shrink or remove varicose veins. Home Care: Walk regularly. This improves circulation in your legs. Lose weight if you are overweight. This reduces the strain on your veins. Avoid tight clothing around your waist, legs, or groin (such as tight panty- girdles, garters, tight socks or stockings). Avoid high heels. Low-heeled shoes work the calf muscles more. Take breaks throughout the day to elevate your legs. Change positions often. Avoid long periods of standing or sitting. Do not sit with your legs crossed. This can worsen circulation problems. Talk to your doctor about the use of specialized compression stockings. Follow Up with your doctor or as advised by our staff. Get Prompt Medical Attention if any of the following occur: ?? Swelling, pain, or redness in the legs ?? Chest pain, shortness of breath, painful breathing, or coughing up blood ?? Dizziness, weakness, or fainting ?? Appearance of an ulcer in the lower leg ?? Bleeding from a varicose vein, not controlled by 5 minutes of direct pressure ?? [id number] [place] [address]. All rights reserved. This information is not intended as a substitute for professional medical care. Always follow your healthcare professional's instructions. This document has images extracted. Please consider using [employer] for all your patient education needs. Source: [facility] POWERCHART Document Id: [id number] documented in this encounter Miscellaneous Notes Miscellaneous - Neda Hoffman M.D. - 12/02/2013 2:35 PM CDT Results Notification Document Contains Addenda Addendum by EDGAR KERN on 02 December 2013 15:18:05 CDT Patient was called and notified. From: NEDA HOFFMAN MD Sent: 12/02/2013 14:35:41 CDT ! Show up: 12/02/2013 14:35:41 CDT Subject: Results Notification Actions: Notify patient of results Reminder Comments: ok Results: Date Result Name Value Ref Range 12/02/2013 08:43 HDL 60.0 mg/dL (40.0 - 60.0) 12/02/2013 08:43 LDL Calculated 77 mg/dL (0 - 100) Source: [facility] [employer]L Document Id: [id number] Electronically signed by Conversion, [facility] [employer] Supervisor [id number] at 08/23/2016 10:45 AM CDT Neda Alegre M.D. - 12/02/2013 1:41 PM CDT Results Notification Document Contains Addenda Addendum by LEVI MALONEY LPN on 03 December 2013 16:47:44 CDT called with results From: NEDA HOFFMAN MD Sent: 12/02/2013 13:41:11 CDT ! Show up: 12/02/2013 13:41:11 CDT Subject: Results Notification Actions: Notify patient of results Reminder Comments: ok Results: Date Result Name Value Ref Range 12/02/2013 08:43 TSH 1.48 mIU/L (0.30 - 5.00) Source: [facility] [employer] Document Id: [id number] Electronically signed by Conversion, [facility] [employer] Supervisor [id number] at 08/23/2016 10:45 AM CDT Neda Alegre M.D. - 12/02/2013 10:13 AM CDT Results Notification Document Contains Addenda Addendum by LEVI MALONEY LPN on 03 December 2013 16:48:02 CDT called with results From: NEDA HOFFMAN MD Sent: 12/02/2013 10:13:41 CDT ! Show up: 12/02/2013 10:13:41 CDT Subject: Results Notification Actions: Notify patient of results Reminder Comments: watch the carbs and the weight! Results: Date Result Name Ind Value Ref Range 12/02/2013 08:43 Sodium Lvl 138 mmol/L (135 - 145) 12/02/2013 08:43 Potassium Lvl 4.4 mmol/L (3.5 - 4.8) 12/02/2013 08:43 Chloride 104 mmol/L (100 - 108) 12/02/2013 08:43 CO2 27 mmol/L (22 - 30) 12/02/2013 08:43 Glucose Fasting (H) 116 mg/dL (70 - 99) 12/02/2013 08:43 Creatinine 0.7 mg/dL (0.7 - 1.2) 12/02/2013 08:43 EGFR (MDRD) >60 mL/min 12/02/2013 08:43 EGFR (MDRD) >60 mL/min 12/02/2013 08:43 BUN 19 mg/dL (6 - 20) 12/02/2013 08:43 Calcium Lvl 9.3 mg/dL (8.5 - 10.5) 12/02/2013 08:43 Cholesterol 155 mg/dL (0 - 200) 12/02/2013 08:43 Trig 88 mg/dL (0 - 150) Source: [facility] POWERCHART Document Id: [id number] Electronically signed by Conversion, [facility] [employer] Supervisor [id number] at 08/23/2016 10:45 AM CDT Miscellaneous - Neda Hoffman M.D. - 12/02/2013 9:08 AM CDT Results Notification Document Contains Addenda Addendum by LEVI MALONEY LPN on 03 December 2013 16:48:16 CDT called with results From: NEDA HOFFMAN MD Sent: 12/02/2013 09:08:59 CDT ! Show up: 12/02/2013 09:08:59 CDT Subject: Results Notification Actions: Notify patient of results Reminder Comments: ok Results: Date Result Name Ind Value Ref Range 12/02/2013 08:53 UR WBC (*) 31-40 /HPF 12/02/2013 08:53 UR RBC Occ-2 /HPF 12/02/2013 08:53 UR Squamous Epi Cells 4-10 /HPF 12/02/2013 08:53 UR Bacteria (*) Present 12/02/2013 08:53 UR Crystals (*) Present 12/02/2013 08:43 Hgb 12.7 g/dL (12.0 - 15.5) Source: [employer] Document Id: [id number] Miscellaneous - Neda Hoffman M.D. - 12/02/2013 8:56 AM CDT Results Notification Document Contains Addenda Addendum by LEVI MALONEY LPN on 03 December 2013 16:47:25 CDT called with results patient reports no symptons From: NEDA HOFFMAN MD Sent: 12/02/2013 08:56:36 CDT ! Show up: 12/02/2013 08:56:36 CDT Subject: Results Notification Actions: Notify patient of results Reminder Comments: any symptoms? if not leave alone Results: Date Result Name Ind Value 12/02/2013 08:53 UA Color Yellow 12/02/2013 08:53 UA Clarity (*) Slightly Cloudy 12/02/2013 08:53 UA Spec Grav 1.015 12/02/2013 08:53 UA pH 7.0 12/02/2013 08:53 UA Protein Negative mg/dL 12/02/2013 08:53 UA Glucose Negative mg/dL 12/02/2013 08:53 UA Ketones Negative mg/dL 12/02/2013 08:53 UA Bili Negative 12/02/2013 08:53 UA Urobilinogen 0.2 mg/dL 12/02/2013 08:53 UA Blood (*) Trace 12/02/2013 08:53 UA Nitrite (*) Positive 12/02/2013 08:53 UA Leuk Est (*) Moderate Source: [employer] Document Id: [id number] Electronically signed by Conversion, [facility] [employer] Supervisor [id number] at 08/23/2016 10:45 AM CDT Miscellaneous Levi Bear L.PReginaNRegina - 12/02/2013 8:19 AM CDT Health Assessment Health Assessment Entered On: 12/02/2013 8:20 CDT Performed On: 12/02/2013 8:19 CDT by LEVI MALONEY LPN Health Assessment Complete Health Assessment Complete or Modified : Annual Health Assessment Annual Health Assessment Completed : Yes BRENDON LEVIFREDRICK DOTY LPN - 12/02/2013 8:19 CDT Nutrition Nutrition Risk Factors by History Adult : None LEVI MALONEY LALITHA RECEIVING SPECIALIST - 12/02/2013 8:19 CDT Functional Current Daily Living Assistance : None BRENDONSHAHNAZLEVIFREDRICK DOTY LPN - 12/02/2013 8:19 CDT Dependent Habits Tobacco Use/Currently Using : No Smoking Status : Never smoker MALONEY LEVIFREDRICK DOTY RECEIVING SPECIALIST - 12/02/2013 8:19 CDT Tobacco Use Grid Last Use : never BRENDON LEVIFREDRICK DOTY RECEIVING SPECIALIST - 12/02/2013 8:19 CDT Caffeine Use Grid Caffeine Use : Current Type : Coffee Frequency : Daily LEVI MALONEY LALITHA RECEIVING SPECIALIST - 12/02/2013 8:19 CDT Recreational Drug Use Grid Drug Use : None MALONEYSHAHNAZLEVIFREDRICK DOTY RECEIVING SPECIALIST - 12/02/2013 8:19 CDT Psychosocial Domestic Abuse Concerns : None Adventism Preference : Unknown LEVI MALONEY LALITHA RECEIVING SPECIALIST - 12/02/2013 8:19 CDT Advance Directive Advanced Directives : No BRENDON LEVIFREDRICK DOTY LPN - 12/02/2013 8:19 CDT Educ Needs Learning Style Preference Adult Grid Patient : Verbal explanation, Printed materials Family : Verbal explanation, Printed materials LEVI MALONEY LALITHA RECEIVING SPECIALIST - 12/02/2013 8:19 CDT [facility] Document Id: [id number] CDT!31 Miscellpatsy - Levi Maloney L.PReginaNRegina - 12/02/2013 8:17 AM CDT Adult Credit Interviewer Intake/History Adult Credit Interviewer Intake/History Entered On: 12/02/2013 8:19 CDT Performed On: 12/02/2013 8:17 CDT by LEVI MALONEY LPN Intake Chief Complaint : complete exam Temperature Core : 36.4 DegC(Converted to: 97.5 DegF) (LOW) Apical Heart Rate : 167 /min (>HHI) Heart Rhythm : Regular Systolic Blood Pressure : 138 mmHg Diastolic Blood Pressure : 76 mmHg NIBP Mean : 97 mmHg BP Location : Left upper extremity Blood Pressure Cuff Size : Regular Height : 155 cm(Converted to: 5 ft 1 inch(es), 61 inch(es)) Actual Weight : 69 kg(Converted to: 152 lb 2 oz) Weight Source : Standing scale Dosing Weight Clinic : 69 kg Clinic BSA : 1.72 Body Mass Index : 28.72 kg/m2 LEVI MALONEY RECEIVING SPECIALIST - 12/02/2013 8:17 CDT General Info Information Given By : Patient Languages : Tanzanian Is Patient Female and 13-50 no hysterectomy : No LEVI MALONEY RECEIVING SPECIALIST - 12/02/2013 8:17 CDT Subjective Pain Symptoms : No LEVI MALONEY LPN - 12/02/2013 8:17 CDT Dependent Habits Tobacco Use/Currently Using : No Smoking Status : Never smoker LEVI MALONEY RECEIVING SPECIALIST - 12/02/2013 8:17 CDT Tobacco Use Grid Last Use : never LEVI MALONEY LPN - 12/02/2013 8:17 CDT Alcohol Use : No LEVI MALONEY LPN - 12/02/2013 8:17 CDT Caffeine Use Grid Caffeine Use : Current Type : Coffee Frequency : Daily LEVI MALONEY LPN - 12/02/2013 8:17 CDT Recreational Drug Use Grid Drug Use : None LEVI MALONEY LPN - 12/02/2013 8:17 CDT Source: [facility] POWERCHART Document Id: [id number] CDT!38 documented in this encounter Plan of Treatment Not on filedocumented as of this encounter Procedures Procedure Name Priority Date/Time Associated Comments Diagnosis URINALYSIS WITH Routine 12/02/2013 8:53 AM Result s for this MICROSCOPIC CDT procedure are i n the results section. LIPID PANEL, S Routine 12/02/2013 8:43 AM Results for this CDT procedure are i n the results section. HEMOGLOBIN, B Routine 12/02/2013 8:43 AM Results for this CDT procedure are i n the results section. THYROID-STIMULATING Routine 12/02/2013 8:43 AM Re sults for this HORMONE-SENSITIVE CDT procedure are in (S-TSH) the results section. BASIC METABOLIC Routine 12/02/2013 8:43 AM Result s for this PANEL, S/P CDT procedure are i n the results section. documented in this encounter Results (ABNORMAL) Urinalysis, Complete, Includes Microscopic (12/02/2013 8:53 AM CDT) Patholo gist Method Time Signature Protein, Ur, Dip Negative MGDL POWERCHART Source Clean Void POWERCHART Urine HXUr Color Yellow POWERCHART Glucose Negative MGDL POWERCHART HXBILIRUBIN Negative POWERCHART Ketones, QL(U) Negative MGDL POWERCHART Specific 1.015 POWERCHART [place], POCT, U Clarity Slightly POWERCHART Cloudy (A) pH, POCT, Urine 7.0 POWERCHART HXBLOOD Trace (A) POWERCHART Urobilinogen 0.2 MGDL POWERCHART HXNITRITE Positive (A) POWERCHART Leukocyte Moderate (A) POWERCHART Esterase HXUR WBC. 31-40 (A) HPF POWERCHART HXUR RBC. Occ-2 HPF POWERCHART HXUR Bacteria, Present (A) POWERCHART Crystals Present (A) POWERCHART Comment: amorphous Squamous Epithelial 4-10 HPF POWERCHART Specimen (Source) Anatomical Collection Method Collection Time Re ceived Time Location / / Volume Laterality Urine 12/02/2013 8:53 AM CDT Neda Hoffman M.D. LAB URINE ORDERABLES Performing Organization Address City/State/ZIP Code Phon e Number POWERCHART Hemoglobin (12/02/2013 8:43 AM CDT) P athologist Signature Hemoglobin 12.7 12.0 - 15.5 POWERCHART GDL Specimen (Source) Anatomical Collection Method Collection Time Re ceived Time Location / / Volume Laterality Blood 12/02/2013 8:43 AM CDT Neda Hoffman M.D. LAB BLOOD ADD-ON Performing Organization Address City/State/ZIP Code Phon e Number POWERCHART Lipid Panel (12/02/2013 8:43 AM CDT) Analysis Performed At Patho logist Time Signature Cholesterol, Total 155 0 - 200 POWERCHART MGDL Triglycerides 88 0 - 150 POWERCHART MGDL HX HDL 60.0 40.0 - POWERCHART 60.0 MGDL Calculated LDL 77 0 - 100 POWERCHART MGDL Specimen (Source) Anatomical Collection Method Collection Time Re ceived Time Location / / Volume Laterality Blood 12/02/2013 8:43 AM CDT Neda Hoffman M.D. LAB BLOOD ADD-ON Performing Organization Address City/[facility]/ZIP Code Phon e Number POWERCHART Thyroid-Stimulating Hormone-Sensitive (s-TSH) (12/02/2013 8:43 AM CDT) P athologist Signature TSH 1.48 0.30 - 5.00 POWERCHART (Thyrotropin) MIUL Specimen (Source) Anatomical Collection Method Collection Time Re ceived Time Location / / Volume Laterality Blood 12/02/2013 8:43 AM CDT Neda Hoffman M.D. LAB BLOOD ADD-ON Performing Organization Address City/State/ZIP Code Phon e Number POWERCHART (ABNORMAL) BMP (Basic Metabolic Panel) (12/02/2013 8:43 AM CDT) P athologist Signature BUN (Blood Urea 19 6 - 20 POWERCHART Nitrogen), S MGDL Creatinine 0.7 0.7 - 1.2 POWERCHART MGDL Potassium, S 4.4 3.5 - 4.8 POWERCHART MMOLL Sodium, S 138 135 - 145 POWERCHART MMOLL Chloride, S 104 100 - 108 POWERCHART MMOLL CO2 Total 27 22 - 30 POWERCHART MMOLL Calcium, Total, 9.3 8.5 - 10.5 POWERCHART S MGDL Glucose, 116 (H) 70 - 99 POWERCHART Fasting, S MGDL HXeGFR (MDRD) >60 MLMIN POWERCHART eGFR >60 MLMIN POWERCHART Black/ Specimen (Source) Anatomical Collection Method Collection Time Re ceived Time Location / / Volume Laterality Blood 12/02/2013 8:43 AM CDT Neda Hoffman M.D. LAB BLOOD ADD-ON Performing Organization Address City/State/ZIP Code Phon e Number POWERCHART documented in this encounter Visit Diagnoses Not on filedocumented in this encounter
--- OUTSIDE RECORDS SUMMARY | 2022-02-28 01:46 | XMS_ITS | Encounter Summary ---
:1940 Author Organization [facility] Address [address] [place] [address] Care Team Providers Name Role Phone Unavailable Primary Care Provider Unavailable Encounter Details Date Type Department Care Team Description 03/04/2013 Hospital Encounter HX [facility]ILY[facility] Suki Darling i, M.D. [address] [place] [phone] (Wo rk) Social History Tobacco Use Types Packs/Day Years Used Date Smoking Tobacco: Never Assessed Sex Assigned at Date Recorded Female 09/25/2017 1:20 PM CDT documented as of this encounter Last Filed Vital Signs Vital Sign Reading Time Taken Comments Blood Pressure 156/64 03/04/2013 3:54 PM [facility] Pulse 72 03/04/2013 3:51 PM [facility] Temperature - - Respiratory Rate 16 03/04/2013 3:51 PM [facility] Oxygen Saturation - - Inhaled Oxygen Concentration - - Weight 71 kg (156 lb 8.4 oz) 03/04/2013 3:51 PM [facility] Height 159 cm (5' 2.6) 03/04/2013 3:51 PM [facility] Body Mass Index 28.08 03/04/2013 3:51 PM [facility] documented in this encounter Medications at Time [...] documented as of this encounter Progress Notes Suki Cunha M.D. - 03/04/2013 3:02 PM CST [id number] CHIEF COMPLAINT/ REASON FOR VISIT Neck pain. HISTORY OF PRESENT ILLNESS Jacob is a 72 year old female who presents to the clinic with neck and wrist pain. She has had neck pain in the past due to arthritis and it has recently worsened again. She has been treated with prednisone and muscle relaxants in the past with success. She is currently taking ibuprofen with no painrelief. Jacob sprained her right wrist recently and received an injection of Kenalog on 01/01. The pain wasrelieved following the injection, but she had a recent flare-up, which has now resolved. She now haspain in her left wrist. She does not recall an injury to this wrist. She denies a history of gout. The patient denies any additional questions or concerns at this time. MEDICATIONS Post-visit Medication Reconciliation Reviewed and are as outlined in the EMR including 1. Prednisone 50mg once daily for 7 days, prescribed today. 2. Flexeril 10mg t.i.d. as needed for spasm, prescribed today. ALLERGIES Oxycodone. SYSTEMS REVIEW See HPI. PAST MEDICAL/SURGICAL HISTORY 1. Hypertension. 2. Dyslipidemia, diet controlled. 3. Severe sciatica with response to physical therapy. 4. Seborrheic dermatitis in the ears requiring cream occasionally. 5. Venous stasis with peripheral dermatitis in the lower extremities. 6. Status post total abdominal hysterectomy/bilateral salpingo-oophorectomy for nonmalignant reasons with associated bladder repair 19 to 20 years ago. 7. Status post two right breast biopsies in 1983, both benign. 8. Status post bilateral cataract surgery with lens implant. 9. Status post cholecystectomy. PREVENTIVE SERVICES Tobacco use: None. VITAL SIGNS HEIGHT: 159 cm WEIGHT: 71 kg BMI: 28.08 kg/m2 TEMPERATURE: 36.9 DegC PULSE: 72 /min RESPIRATORY RATE: 16 /min BLOOD PRESSURE: 156 mmHg/66 mmHg PHYSICAL EXAMINATION GENERAL: Patient is alert and oriented times three, in no acute distress, good hygiene and is dressed appropriately. EXTREMITIES: Within normal limits. Soft tissue swelling on the dorsum of the left wrist without redness or warmth. She has tenderness to palpation in this area. NECK: She has paraspinous spasm bilaterally, right greater than left. IMPRESSION/REPORT/PLAN 1. Left wrist pain: This is similar in nature to a right wrist strain that was treated with intraarticular cortisone. Will treat today with oral Prednisone, 50mg once daily for 7 days. She is providedwith a wrist brace for immobilization. She will follow up with Dr. Hoffman to discuss possible injec tions. She will return in 2 weeks for a recheck. 2. Cervical spasm: Flexeril 10mg t.i.d. is prescribed and the above prednisone may also be helpful. 3. Follow up: The patient will contact the clinic with any new or worsening symptoms. This document serves as a record of services personally performed by Suki Macias MD. It was created on their behalf by Jasmin Aranda, a trained medical office assistant. The creation of this record is based on the scribe's personal observations and the provider's statements to them. This document has been carmelita cked and approved by the attending provider. Suki Macias M.D./salvador Electronically Signed By: SUKI MACIAS MD On: 03/06/2013 06:12 PM Source: [facility] [email or web address] Document Id: [id number] [facility] documented in this encounter Nursing Notes Conversion, Historical Provider Ser - 03/28/2013 11:03 AM CST [facility] the necessary adjustments have been made to allow for coverage of the prescription of the cyclobenzaprine HCL.. Electronically Signed By: FÉLIX HERNANDEZ On: 03/28/2013 11:05 AM Source: [facility] POWERCHART Document Id: [id number] Conversion, Historical Provider Ser - 03/21/2013 11:48 AM CST prior authorization Prior authorization form fill out to [facility] for the medication cyclobenzaprine 10 mg. Electronically Signed By: FÉLIX HERNANDEZ On: 03/21/2013 11:49 AM Source: [facility] POWERCHART Document Id: [id number] documented in this encounter Miscellaneous Notes Miscellaneous - Suki Cunha M.D. - 03/04/2013 4:08 PM [facility] Ambulatory Patient Summary [address] [id number] Visit Information Name: JACOB ANDINO [facility] Number: [id number] Current Date: 03/04/2013 16:08:55 Physicians Attending Provider: SUKI MACIAS MD Primary Care Provider: NEDA HOFFMAN MD KELLEEEARL DE LEONRAE ANDREW has been given the following list [...] D (Calcium 600+D) Oral, once a day desonide topical (desonide 0.05% topical cream) 1 ciara, Topical, two times a day furosemide (furosemide 20 mg oral tablet) 1 Tablet(s), Oral, once a day multivitamin (multivitamin) Oral, once a day predniSONE (predniSONE 50 mg oral tablet) 1 Tablet(s), Oral, once a day x 7 day(s) New Routed to [address] [address] Stop Taking the Following Medications: Medication list as of 03-04-13 16:08 Attention: If you have any medications at home that are not on this list, DO NOT take them until youcontact your provider for clarification. Give a copy of your medication list to your primary care provider. Update your medication list any time medications or doses are changed and carry your medication list at all times in case of emergency. 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 Your Goals/Additional instructions: Source: [facility] POWERCHART Document Id: [id number] [facility] Miscellaneous - Suki Cunha M.D. - 03/04/2013 4:08 PM [facility] Ambulatory Depart Summary [address] [address] Visit Information Name: JACOB ANDINO [facility] Number: [id number] Visit Date: 03/04/2013 16:08:53 Attending Provider: SUKI MACIAS MD Primary Care Provider: NEDA HOFFMAN MD [...] D (Calcium 600+D) Oral, once a day desonide topical (desonide 0.05% topical cream) 1 ciara, Topical, two times a day furosemide (furosemide 20 mg oral tablet) 1 Tablet(s), Oral, once a day multivitamin (multivitamin) Oral, once a day predniSONE (predniSONE 50 mg oral tablet) 1 Tablet(s), Oral, once a day x 7 day(s) New Routed to [address] [address] Stop Taking the Following Medications: Medication list as of 03-04-13 16:08 Attention: If you have any medications at home that are not on this list, DO NOT take them until youcontact your provider for clarification. Give a copy of your medication list to your primary care provider. Update your medication list any time medications or doses are changed and carry your medication list at all times in case of emergency. Additional Information: Source: [facility] [employer] Document Id: [id number] [facility] Miscellaneous - Conversion, Historical Provider Ser - 03/04/2013 3:54 PM [facility] Ambulatory Vitals Height Weight Ambulatory Vitals Height Weight Entered On: 03/04/2013 15:54 [facility] Performed On: 03/04/2013 15:54 [facility] by MABEL HERNANDES LPN Vitals/Ht/Wt Systolic Blood Pressure : 156 mmHg (HI) Diastolic Blood Pressure : 64 mmHg NIBP Mean : 95 mmHg BP Location : Left upper extremity Blood Pressure Cuff Size : Regular MABEL HERNANDES LPN - 03/04/2013 15:54 [facility] Document Id: [id number] [facility]!7 Miscellaneous - Conversion, Historical Provider Ser - 03/04/2013 3:51 PM [facility] Adult Home Health Aide Intake/History Adult Home Health Aide Intake/History Entered On: 03/04/2013 15:54 [facility] Performed On: 03/04/2013 15:51 [facility] by MABEL HERNANDES LPN Intake Chief Complaint : siff neck Temperature Core : 36.9 DegC(Converted to: 98.4 DegF) Peripheral Pulse Rate : 72 /min Respiratory Rate : 16 /min Systolic Blood Pressure : 156 mmHg (HI) Diastolic Blood Pressure : 66 mmHg NIBP Mean : 96 mmHg BP Location : Left upper extremity Blood Pressure Cuff Size : Regular Height : 159 cm(Converted to: 5 ft 3 inch(es), 62.60 inch(es)) Actual Weight : 71 kg(Converted to: 156 lb 8 oz) Dosing Weight Clinic : 71 kg Clinic BSA : 1.77 Body Mass Index : 28.08 kg/m2 MABEL HERNANDES [facility] 03/04/2013 15:51 [facility] General Info Information Given By : Patient Languages : Northern Irish MABEL HERNANDES [facility] 03/04/2013 15:51 [facility] Subjective Pain Symptoms : Yes MABEL HERNANDES [facility] 03/04/2013 15:51 [facility] Pain Pain Assessment Grid Pain 1 Location : Neck MABEL HERNANDES [facility] 03/04/2013 15:51 [facility] Dependent Habits Tobacco Use/Currently Using : No Smoking Status : Never smoker MABEL HERNANDES [facility] 03/04/2013 15:51 [facility] Tobacco Use Grid Last Use : never MABEL HERNANDES [facility] 03/04/2013 15:51 [facility] Caffeine Use Grid Caffeine Use : Current Type : Coffee Frequency : Daily MABEL HERNANDES [facility] 03/04/2013 15:51 [facility] Recreational Drug Use Grid Drug Use : None MABEL HERNANDES [facility] 03/04/2013 15:51 [facility] Document Id: [id number] [facility]!39 documented in this encounter Plan of Treatment Not on filedocumented as of this encounter Visit Diagnoses Not on filedocumented in this encounter
--- OUTSIDE RECORDS SUMMARY | 2022-02-28 01:46 | XMS_ITS | Encounter Summary ---
:1940 [address] [facility] Address [address] [place] [address] Care Team Providers Name Role Phone Unavailable Primary Care Provider Unavailable Encounter Details Date Type Department Care Team Description 12/22/2014 [facility] Eliseo Hoffman M.D. [address] [place] [address] [phone] (Wo rk) Social History Tobacco Use [...] Diagnosis Comme nts BI BREAST SCREENING Routine 12/22/2014 9:55 AM Re sults for this BILATERAL CDT procedure are i n the results section. documented in this encounter Results BI Breast Screening Bilateral (12/22/2014 9:55 AM CDT) Anatomical Region Laterality Modality Breast Bilateral Mammography Specimen (Source) Anatomical Collection Method Collection Time Re ceived Time Location / / Volume Laterality 12/22/2014 9:55 AM CDT Addenda Addendum by Provider, Estella Kang 12/22/2014 9:55 AM CDT RAD^^^OW [facility] Mammo Screening w ??CADD 12/22/2014 09:55:23 Impressions 12/23/2014 10:18 AM CDT Recommendations: ??I recommend a follow-up mammogram in 1 year, self breast exams at least once pe r month and clinical breast exam at least once per year. ??Of note, benign findings should not deter biopsy in the setting of a palpabl e abnormality. ??The false negative rate of mammography is approxim ately 10%. CODE: 1-NEGATIVE Appropriate letter sent. Full field digital mammography is used a nd Computer Aided Detection is performed on the digital mammogram im ages. Narrative 12/23/2014 10:18 AM CDT EXAM: [facility] Mammo Screening w/ CADD INDICATION: screening. ? AGE: 74 years-old COMPARISON: Previous studies dating back to 11/11/08. VIEWS: MLO and CC views of bilateral steve asts. FINDINGS: There are scattered areas of f ibroglandular density. No change. Procedure Note Eliseo Adkins M.D. / Jorge Luis Ashraf M.D. - 08/04/2016 EXAM: [facility] Mammo Screening w/ CADD INDICATION: screening. AGE: 74 years-old COMPARISON: Previous studies dating back to 11/11/08. VIEWS: MLO and CC views of bilateral steve asts. FINDINGS: There are scattered areas of f ibroglandular density. No change. IMPRESSION: Recommendations: I recommend a follow-up mammogram in 1 year, self breast exams at least once pe r month and clinical breast exam at least once per year. Of note, be nign findings should not deter biopsy in the setting of a palpabl e abnormality. The false negative rate of mammography is approxim ately 10%. CODE: 1-NEGATIVE Appropriate letter sent. Full field digital mammography is used a nd Computer Aided Detection is performed on the digital mammogram im ages. Historical Provider IMG BI PROCEDURES documented in this encounter Visit Diagnoses Not on filedocumented in this encounter
--- OUTSIDE RECORDS SUMMARY | 2022-02-28 01:46 | XMS_ITS | Encounter Summary ---
:1940 Author Organization [facility] Address [address] [place] [address] Care Team Providers Name Role Phone Unavailable Primary Care Provider Unavailable Encounter Details Date Type Department Care Team Description 03/18/2015 Hospital Encounter HX [facility] FBHB INTERNMED Regulo Hoffman M.D. [address] [place] [address] 021 (Wo rk) Social History Tobacco Use Types Packs/Day Years Used Date Smoking Tobacco: Never Assessed Sex Assigned at Date Recorded Female 09/25/2017 1:20 PM CDT documented as of this encounter Last Filed Vital Signs Vital Sign Reading Time Taken Comments Blood Pressure 179/58 03/18/2015 12:46 PM BLINDSTITCH MACHINE OPERATOR Pulse 72 03/18/2015 12:45 PM BLINDSTITCH MACHINE OPERATOR Temperature - - Respiratory Rate 16 03/18/2015 12:45 PM BLINDSTITCH MACHINE OPERATOR Oxygen Saturation - - Inhaled Oxygen Concentration - - Weight 72 kg (158 lb 11.7 oz) 03/18/2015 12:45 PM BLINDSTITCH MACHINE OPERATOR Height - - Body Mass Index 29.59 01/19/2015 7:57 AM CDT documented in this [...] encounter Progress Notes Neda Hoffman M.D. - 03/18/2015 12:27 PM CST [id number] CHIEF COMPLAINT/REASON FOR VISIT Polymyalgia rheumatica. HISTORY OF PRESENT ILLNESS The patient presents today feeling great, she feels wonderful, but does not like her blood pressure being up. I do not like that either. Her blood pressure has gone up since she went on prednisone. Shehad 2 sequential sed rates that were rising, one in the 50s and one in the upper 60s and then we puther on prednisone and she has been doing much better. I will do a sed rate today and see if they aredown. If the sed rate is down it confirms she has polymyalgia rheumatica. I discussed with her polymyalgia rheumatica and how it is related to temporal arteritis which is a serious and potentially fatal disease. She feels she can go down on her prednisone to 2-1/2 pills or 12.5 mg today. She will get an identification bracelet to say that she is on chronic prednisone and I gave her a paper for that today that she can mail in. For the blood pressure, we have gotten absolutely no benefit from losartan hydrochlorothiazide but fluid has cleared. The problem is it did not bring the blood pressure down and the blood pressure is even higher so will start clonidine, check her in a month and see what that has done. With the diuretics going clonidine is a good choice, it is potent, can be taken once a day and is cheap. MEDICATIONS See medicine list in EHR. ALLERGIES [...] fourthsound, no significant murmur, no gallop. IMPRESSION/REPORT/PLAN 1. She has probable polymyalgia rheumatica. I would make that diagnosis definitively if the sedimentation rate is much depressed today. I will have her go from 15 to 12.5 mg and recheck in a month. Shehas today a sedimentation rate and a BMP. 2. Hypertension. She is on losartan, hydrochlorothiazide and furosemide in small dose and fluid has cleared with that diuretic combination but her potassium needs to be checked carefully, creatinine and BUN, and her blood pressure needs to come down so I will add clonidine 0.2 mg at bedtime and increase this at monthly intervals until we get control of the blood pressure, she has side effects, or we reach 0.6 mg once a day at bedtime. She is comfortable with that approach. She had today a BMP and a sedimentation rate. Time component was 25 minutes, about 19 minutes of it talking about PMR and hypertension. Neda Hoffman M.D./kimmie Electronically Signed By: NEDA HOFFMAN MD On: 03/18/2015 02:14 PM Source: [facility] MHSDOLBEYNONRADSYS Document Id: [id number] DSTITCH MACHINE OPERATOR documented in this encounter Miscellaneous Notes Miscellaneous - Neda Hoffman M.D. - 03/19/2015 7:41 AM CST Results Notification Document Contains Addenda Addendum by LEVI MALONEY LPN on 19 March 2015 08:04:54 BLINDSTITCH MACHINE OPERATOR called with results From: NEDA HOFFMAN MD To: ANDRIA Hoffman Nurse; Sent: 03/19/2015 07:41:48 BLINDSTITCH MACHINE OPERATOR ! Show up: 03/19/2015 07:41:48 BLINDSTITCH MACHINE OPERATOR Subject: Results Notification Actions: Notify patient of results Reminder Comments: non fasting OK Results: Date Result Name Ind Value Ref Range 03/18/2015 13:22 Sodium Lvl 137 mmol/L (135 - 145) 03/18/2015 13:22 Potassium Lvl 4.4 mmol/L (3.6 - 5.2) 03/18/2015 13:22 Chloride (L) 95 mmol/L (98 - 107) 03/18/2015 13:22 CO2 27 mmol/L (22 - 29) 03/18/2015 13:22 AGAP 15 mmol/L (7 - 15) 03/18/2015 13:22 Glucose Lvl (H) 143 mg/dL (70 - 139) 03/18/2015 13:22 Creatinine 0.8 mg/dL (0.6 - 1.1) 03/18/2015 13:22 EGFR (MDRD) >60 mL/min/1.73m2 (>=60 - ) 03/18/2015 13:22 EGFR (MDRD) >60 mL/min/1.73m2 (>=60 - ) 03/18/2015 13:22 BUN 18 mg/dL (6 - 21) 03/18/2015 13:22 Calcium Lvl 9.8 mg/dL (8.8 - 10.3) Source: [facility] POWERCHART Document Id: [id number] Electronically signed by Conversion, [facility] Mortgage Counselor [id number] at 08/22/2016 9:12 AM CDT Miscellaneous - Neda Hoffman M.D. - 03/18/2015 2:29 PM CST Results Notification Document Contains Addenda Addendum by LEVI MALONEY LPN on 18 March 2015 14:49:50 BLINDSTITCH MACHINE OPERATOR called with results From: NEDA HOFFMAN MD To: ANDRIA Hoffman Nurse; Sent: 03/18/2015 14:29:13 BLINDSTITCH MACHINE OPERATOR ! Show up: 03/18/2015 14:29:13 BLINDSTITCH MACHINE OPERATOR Subject: Results Notification Actions: Notify patient of results Reminder Comments: very good. She has PMR Results: Date Result Name Value Ref Range 03/18/2015 13:22 Sed Rate 24 mm/hr (0 - 29) Source: [facility] POWERCHART Document Id: [id number] Electronically signed by Conversion [facility] Mortgage Counselor [id number] at 08/22/2016 9:12 AM CDT Miscellaneous - Neda Hoffman M.D. - 03/18/2015 1:00 PM CST Ambulatory Patient Summary [id number] [place], [place] [phone] Visit Information Name: JACOB ANDINO [facility] Number: [id number] Current Date: 03/18/2015 13:00:14 Physicians Attending Provider: NEDA HOFFMAN MD Primary [...] 600+D) Oral, once a day cloNIDine (cloNIDine 0.2 mg oral tablet) 1 Tablet(s), Oral, once a day (at bedtime) New Routed to [address] [address] desonide topical (desonide 0.05% topical cream) 1 ciara, Topical, two times a day furosemide (furosemide 20 mg oral tablet) 1 Tablet(s), Oral, once a day Need labs and appt. losartan-hydrochlorothiazide (losartan-hydrochlorothiazide 50 mg-12.5 mg oral tablet) 1 Tablet(s), Oral, once a day (Hyzaar) multivitamin (multivitamin) Oral, once a day predniSONE (predniSONE 5 mg oral tablet) 2.5 Tablet(s), Oral, once a day This is a CHANGE Stop Taking the Following Medications: Medication list as of 03-18-15 13:00 Attention: If you have any medications at [...] Electronically Signed By: NEDA HOFFMAN MD Signed On:18-MAR-2015 12:59:46 Your Allergies & Intolerances Substance Reaction Symptoms Category Comments oxyCODONE Drug Your Problem List Problem Status Onset Comments Combined hyperlipidemia Active 01/11/2010 Fatigue* Active 01/11/2010 HTN [Hypertension] Active 01/11/2010 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 Your High Blood Pressure Risk Factors Risk factors are things that make you more likely to have a disease or condition. Do you know your risk factors for high blood pressure? You cant do anything about some risk factors. But other risk factors are things that can be changed. Know what high blood pressure risk factors you have. Then find out what changes you can make to help control your risk for high blood pressure. Start with the changethat you think will be easiest for you. Risk Factors You Cant Control Though you cant change any of the things listed below, check off the ones that apply to you. The more boxes you check, the greater your risk for high blood pressure. Family History One or both of your parents or grandparents has had high blood pressure or heart disease. A close male relative had heart disease or a heart attack (also known as acute myocardial infarction, or AMI) before age 55. A close female relative had heart disease or a heart attack before age 65. Gender and Age Youre a man over age 55 or a postmenopausal woman. Risk Factors You Can Control There are plenty of risk factors for high blood pressure that you can control. Learn what these riskfactors are and then find out how to reduce your risk. Check the ones that apply to you. What You Eat Do you eat a lot of salty, fatty, fried, or greasy foods? If You Smoke Do you smoke cigarettes or cigars, chew tobacco, or dip snuff? How Active You Are Are you inactive most of the time at work and at home? Your Weight Has your doctor said that you are 15 or more pounds overweight? YourStress Level Do you often feel anxious, nervous, and stressed? ?? [id number] Dale Frazier, [address] [place] [address], [place] [address]. All rights reserved. This information is not [...] if you dont have one. Go to [employer]ward/onlineservices and click on Create Your Account. Then, follow the directions to complete the online form. Youll be asked for your [facility] number which you can find at the top of this document. Your Goals/Additional instructions: This document has images extracted. Please consider using [employer] for all your patient education needs. Source: [facility] POWERCHART Document Id: [id number] DSTITCH MACHINE OPERATOR Miscellaneous - Neda Hoffman M.D. - 03/18/2015 1:00 PM CST Ambulatory Discharge Medication List [address] [id number] Visit Information Name: JACOB ANDINO [facility] Number: [id number] Visit Date: 03/18/2015 13:00:13 Attending Provider: NEDA HOFFMAN MD Primary Care [...] 600+D) Oral, once a day cloNIDine (cloNIDine 0.2 mg oral tablet) 1 Tablet(s), Oral, once a day (at bedtime) New Routed to [address] [address] desonide topical (desonide 0.05% topical cream) 1 ciara, Topical, two times a day furosemide (furosemide 20 mg oral tablet) 1 Tablet(s), Oral, once a day Need labs and appt. losartan-hydrochlorothiazide (losartan-hydrochlorothiazide 50 mg-12.5 mg oral tablet) 1 Tablet(s), Oral, once a day (Hyzaar) multivitamin (multivitamin) Oral, once a day predniSONE (predniSONE 5 mg oral tablet) 2.5 Tablet(s), Oral, once a day This is a CHANGE Stop Taking the Following Medications: Medication list as of 03-18-15 13:00 Attention: If you have any medications at [...] Electronically Signed By: NEDA HOFFMAN MD Signed On:18-MAR-2015 12:59:46 Additional Information: Source: [facility] POWERCHART Document Id: [id number] DSTITCH MACHINE OPERATOR Miscellaneous - Levi Maloney L.P.NRegina - 03/18/2015 12:46 PM CST Ambulatory Vitals Height Weight Ambulatory Vitals Height Weight Entered On: 03/18/2015 12:48 BLINDSTITCH MACHINE OPERATOR Performed On: 03/18/2015 12:46 BLINDSTITCH MACHINE OPERATOR by LEVI MALONEY LPN Vitals/Ht/Wt Systolic Blood Pressure : 179 mmHg (>HHI) Diastolic Blood Pressure : 58 mmHg NIBP Mean : 98 mmHg BP Location : Left upper extremity Blood Pressure Cuff Size : Large LEVI MALONEY LPN - 03/18/2015 12:46 BLINDSTITCH MACHINE OPERATOR [facility] Document Id: [id number] BLINDSTITCH MACHINE OPERATOR!7 DSTITCH MACHINE OPERATOR Miscellaneous - Levi Maloney L.P.N. 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 Intake/History Entered On: 03/18/2015 12:46 BLINDSTITCH MACHINE OPERATOR Performed On: 03/18/2015 12:45 BLINDSTITCH MACHINE OPERATOR by LEVI MALONEY LPN Intake Chief Complaint : recheck Temperature Core : 36.5 DegC(Converted to: 97.7 DegF) Peripheral Pulse Rate : 72 /min Respiratory Rate : 16 /min Systolic Blood Pressure : 184 mmHg (>HHI) Diastolic Blood Pressure : 66 mmHg NIBP Mean : 105 mmHg BP Location : Left upper extremity Blood Pressure Cuff Size : Large Actual Weight : 72 kg(Converted to: 158 lb 12 oz) Weight Source : Standing scale Dosing Weight Clinic : 72 kg LEVI MALONEY LPN - 03/18/2015 12:45 BLINDSTITCH MACHINE OPERATOR General Info Information Given By : Patient Languages : [place] Islander Is Patient Female and 13-50 no hysterectomy : LEVI Samayoa LPN - 03/18/2015 12:45 BLINDSTITCH MACHINE OPERATOR Subjective Pain Symptoms : No LEVI MALONEY LPN - 03/18/2015 12:45 BLINDSTITCH MACHINE OPERATOR Dependent Habits Smoking Status : Never smoker Tobacco 2A : No LEVI MALONEY LPN - 03/18/2015 12:45 BLINDSTITCH MACHINE OPERATOR Caffeine Use Grid Caffeine Use : Current Type : Coffee Frequency : Daily LEVI MALONEY LPN - 03/18/2015 12:45 BLINDSTITCH MACHINE OPERATOR Recreational Drug Use Grid Drug Use : None LEVI MALONEY LPN - 03/18/2015 12:45 BLINDSTITCH MACHINE OPERATOR [facility] Document Id: [id number] BLINDSTITCH MACHINE OPERATOR!31 DSTITCH MACHINE OPERATOR documented in this encounter Plan of Treatment Not on filedocumented as of this encounter Procedures Procedure Name Priority Date/Time Associated Comments Diagnosis SEDIMENTATION RATE, B Routine 03/18/2015 1:22 PM Results for this BLINDSTITCH MACHINE OPERATOR procedure are i n the results section. BASIC METABOLIC PANEL, Routine 03/18/2015 1:22 PM Results for this S/P BLINDSTITCH MACHINE OPERATOR procedure are i n the results section. documented in this encounter Results Sedimentation Rate (03/18/2015 1:22 PM BLINDSTITCH MACHINE OPERATOR) Analysis Performed At Patho logist Time Signature Sedimentation 24 0 - 29 POWERCHART Rate, B MMHR Specimen (Source) Anatomical Collection Method Collection Time Re ceived Time Location / / Volume Laterality Blood 03/18/2015 1:22 PM BLINDSTITCH MACHINE OPERATOR Neda Hoffman M.D. LAB BLOOD ADD-ON Performing Organization Address City/State/ZIP Code Phon e Number POWERCHART (ABNORMAL) BMP (Basic Metabolic Panel) (03/18/2015 1:22 PM BLINDSTITCH MACHINE OPERATOR) P athologist Signature Anion Gap 15 7 - 15 POWERCHART [facility]LL BUN (Blood Urea 18 6 - 21 POWERCHART Nitrogen), S MGDL Chloride, S 95 (L) 98 - 107 POWERCHART [facility] CO2 Total 27 22 - 29 POWERCHART [facility] Creatinine 0.8 0.6 - 1.1 POWERCHART MGDL Glucose 143 (H) 70 - 139 POWERCHART MGDL Calcium, Total, 9.8 8.8 - 10.3 POWERCHART S MGDL Sodium, S 137 135 - 145 POWERCHART [facility] Potassium, S 4.4 3.6 - 5.2 POWERCHART [facility] HXeGFR (MDRD) >60 >=60 POWERCHART [id number] eGFR >60 >=60 POWERCHART Black/ [id number] [place]ian Specimen (Source) Anatomical Collection Method Collection Time Re ceived Time Location / / Volume Laterality Blood 03/18/2015 1:22 PM BLINDSTITCH MACHINE OPERATOR Neda Hoffman M.D. LAB BLOOD ADD-ON Performing Organization Address City/State/ZIP Code Phon e Number POWERCHART documented in this encounter Visit Diagnoses Not on filedocumented in this encounter
--- OUTSIDE RECORDS SUMMARY | 2022-02-28 01:46 | XMS_ITS | Encounter Summary ---
:1940 Author Organization [facility] Address [address] [place] [address] Care Team Providers Name Role Phone Unavailable Primary Care Provider Unavailable Encounter Details Date Type Department Care Team Description 08/12/2013 Hospital Encounter HX [facility] INTERNMED Regulo Hoffman M.D. 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 - 08/12/2013 3:55 PM CDT [id number] She saw Dr. Harrison for pain in the left wrist. He told her to take Aleve. It did not help. She comes to me. He did x-rays, found arthritis. She has tenderness at the base of the carpometacarpal joint,in the region of that joint, which is a very commonly involved osteoarthritic joint. I can inject it. This is what she is coming for, and moving the finger is very painful. There is no warmth or redness, so it is suitable for an injection. MEDICATIONS Per [facility] EMR. ALLERGIES Per [facility] EMR. SYSTEMS REVIEW Review of systems in all areas except as mentioned above is negative. PREVENTIVE SERVICES: Per [facility] EMR. Handwashing done prior to patient contact. PAST MEDICAL/SURGICAL HISTORY Per [facility] EMR. VITAL SIGNS Per [facility] EMR. PHYSICAL EXAMINATION Examination finds tenderness over the carpometacarpal joint on the left side. IMPRESSION/REPORT/PLAN I prepped with Betadine, under aseptic conditions injected 2 mL of 1% lidocaine and 40 mg of triamcinolone. There was immediate relief. Band-Aid applied. The patient will go on Mobic 15 mg daily for 10days, take on a full stomach after eating. She will call with redness or swelling. Neda Hoffman M.D./kimmie Electronically Signed By: NEDA HOFFMAN MD On: 08/13/2013 09:46 AM Source: [facility] MHSDOLBEYNONRADSYS Document Id: [id number] documented in this encounter Nursing Notes Levi Maloney, LReginaPReginaN. - 08/12/2013 4:20 PM CDT [facility] number [facility] number for Kenalog 40mg given by Dr Neda Hoffman on 08/12/13 [facility] [id number] Electronically Signed By: LEVI MALONEY LPN On: 08/12/2013 04:23 PM Source: [facility] POWERCHART Document Id: [id number] documented in this encounter Miscellaneous Notes Miscellaneous - Neda Hoffman M.D. - 08/12/2013 4:16 PM CDT Ambulatory Patient Summary [address] [id number] Visit Information Name: JACOB ANDINO [facility] Number: [id number] Current Date: 08/12/2013 16:16:09 Physicians Attending Provider: NEDA HOFFMAN MD Primary [...] tablet) 1 Tablet(s), Oral, once a day meloxicam (Mobic 15 mg oral tablet) 1 Tablet(s), Oral, once a day New Routed to [address] [address] multivitamin (multivitamin) Oral, once a day Stop Taking the Following Medications: Medication list as of 08-12-13 16:16 Attention: If you have any medications at [...] Electronically Signed By: NEDA HOFFMAN MD Signed On:12-AUG-2013 16:15:43 Your Allergies & Intolerances Substance Reaction Symptoms Category Comments oxyCODONE Drug Your Problem List Problem Status Onset Comments Combined hyperlipidemia Active 01/11/2010 Fatigue* Active 01/11/2010 HTN [Hypertension] Active 01/11/2010 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 Your Goals/Additional instructions: Source: [facility] POWERCHART Document Id: [id number] Miscellaneous - Neda Hoffman M.D. - 08/12/2013 4:16 PM CDT Ambulatory Discharge Medication List [address] [id number] Visit Information Name: JACOB ANDINO [facility] Number: [id number] Visit Date: 08/12/2013 16:16:07 Attending Provider: NEDA HOFFMAN MD Primary Care [...] tablet) 1 Tablet(s), Oral, once a day meloxicam (Mobic 15 mg oral tablet) 1 Tablet(s), Oral, once a day New Routed to [address] [address] multivitamin (multivitamin) Oral, once a day Stop Taking the Following Medications: Medication list as of 08-12-13 16:16 Attention: If you have any medications at [...] Electronically Signed By: NEDA HOFFMAN MD Signed On:12-AUG-2013 16:15:43 Additional Information: Source: [facility] POWERCHART Document Id: [id number] Miscellaneous - Levi Maloney L.P.N. 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 Entered On: 08/12/2013 16:02 CDT Performed On: 08/12/2013 15:59 CDT by LEVI MALONEY LPN Intake Chief Complaint : pain in left wrist Temperature Core : 36.8 DegC(Converted to: 98.2 DegF) Peripheral Pulse Rate : 80 /min Systolic Blood Pressure : 128 mmHg Diastolic Blood Pressure : 60 mmHg NIBP Mean : 83 mmHg BP Location : Left upper extremity Blood Pressure Cuff Size : Regular Actual Weight : 71 kg(Converted to: 156 lb 8 oz) Weight Source : Standing scale Dosing Weight Clinic : 71 kg LEVI MALONEY LPN - 08/12/2013 15:59 CDT General Info Information Given By : Patient Languages : Slovenian LEVI MALONEY LPN - 08/12/2013 15:59 CDT Subjective Pain Symptoms : Yes LEVI MALONEY LPN - 08/12/2013 15:59 CDT Pain Pain Assessment Grid Pain 1 Location : Wrist Laterality : Left Intensity : 6 Time Pattern : Chronic Onset : Gradual Quality : Aching LEVI MALONEY LPN - 08/12/2013 15:59 CDT Dependent Habits Tobacco Use/Currently Using : No Smoking Status : Never smoker LEVI MALONEY LPN - 08/12/2013 15:59 CDT Tobacco Use Grid Last Use : never LEVI MALONEY LPN - 08/12/2013 15:59 CDT Caffeine Use Grid Caffeine Use : Current Type : Coffee Frequency : Daily LEVI MALONEY LPN - 08/12/2013 15:59 CDT Recreational Drug Use Grid Drug Use : None LEVI MALONEY LPN - 08/12/2013 15:59 CDT Source: [facility] [employer] Document Id: [id number] CDT!41 documented in this encounter Plan of Treatment Not on filedocumented as of this encounter Visit Diagnoses Not on filedocumented in this encounter
--- OUTSIDE RECORDS SUMMARY | 2022-02-28 01:46 | XMS_ITS | Encounter Summary ---
:1940 Author Organization [facility] Address [address] [place] [address] Care Team Providers Name Role Phone Unavailable Primary Care Provider Unavailable Encounter Details Date Type Department Care Team Description 01/19/2015 Hospital Encounter HX NO MAPPING Sherif Hoffman M.D. [address] [place] [address] 021 (Wo rk) Social History Tobacco Use [...] Miscellaneous - Conversion, Historical Provider Ser - 01/19/2015 11:59 PM CDT Coding Summary-Paper Based CODING DATE: 01/28/2015 FINAL [facility] STATUS: * Discharged to Home or Self [...] terminology. Coded By: MENDEZ PRIETO Date Saved: 01/28/2015 10:36 am Source: [facility] POWERCHART Document Id: [id number] documented in this encounter Plan of Treatment Not on filedocumented as of this encounter Visit Diagnoses Not on filedocumented in this encounter
--- OUTSIDE RECORDS SUMMARY | 2022-02-28 01:46 | XMS_ITS | Encounter Summary ---
:1940 Author Organization [facility] Address [address] [place] [address] Care Team Providers Name Role Phone Unavailable Primary Care Provider Unavailable Encounter Details Date Type Department Care Team Description 05/13/2015 Hospital Encounter HX [facility] INTERNMED Regulo Hoffman M.D. [address] [place] [address] 021 (Wo rk) Social History Tobacco Use Types Packs/Day Years Used Date Smoking Tobacco: Never Assessed Sex Assigned at Date Recorded Female 09/25/2017 1:20 PM CDT documented as of this encounter Last Filed Vital Signs Vital Sign Reading Time Taken Comments Blood Pressure 138/72 05/13/2015 12:47 PM [employer] Pulse 78 05/13/2015 12:47 PM [employer] Temperature - - Respiratory Rate 16 05/13/2015 12:47 PM [employer]ER Oxygen Saturation - - Inhaled Oxygen Concentration - - Weight 71 kg (156 lb 8.4 oz) 05/13/2015 12:47 PM [employer] Height - - Body Mass Index 29.18 01/19/2015 7:57 AM CDT documented in this [...] encounter Progress Notes Neda Hoffman M.D. - 05/13/2015 12:27 PM CST [id number] CHIEF COMPLAINT/REASON FOR VISIT Recheck on polymyalgia rheumatica. The patient feels good. She is on a single 20 mg pill of prednisone. There have been games with the pharmacy and the insurance. I had sent her actually a script for 5 mg pills to take 4 of them and shegot a single 20 mg prednisone pill and there was all kinds of trouble getting it. If the patient in fact has good sedimentation rate today she is going to drop to 15 mg. She cannot do that with a 20 mg pill, so I will have to send 5 mg pills, she would take 3 each morning. She had 5mg pills when she started and the insurance company did not squawk about that. Patient is feeling pretty good. Her blood pressure is under control and she is down a few more pounds so the diuretics are working very well. She will need a script for 40 mg of Lasix. We did talk about her diabetes and we can make the diagnosis of diabetes but it may be that this diabetes is very easy to manage if she can get down on prednisone. Her A1c was in the 6's and that is not requiring medicines at the moment. MEDICATIONS See medicine list in EHR. ALLERGIES [...] no significant murmur, no gallop. IMPRESSION/REPORT/PLAN 1. Polymyalgia rheumatica. If the sedimentation rate is normal we will drop to 15 mg of prednisone. She will need a new script for that. 2. Hypertension, control is excellent. Continue current medicines. 3. Peripheral edema. Largely resolved with the diuretics. Check a BMP, if electrolytes remain in order we do not have to make any change. 4. Adult onset diabetes mellitus. This is stable at the moment with controlled A1c. We will have to check it as the prednisone comes down. Neda Hoffman M.D./kimmie Electronically Signed By: NEDA HOFFMAN MD On: 05/13/2015 02:17 PM Source: [facility] [id number] Document Id: [id number] R POLISHER documented in this encounter Miscellaneous Notes Miscellaneous - Neda Hoffman M.D. - 05/13/2015 2:43 PM CST Addendum by LEVI MALONEY LPN on 13 May 2015 15:03:40 [employer] called with results From: NEDA HOFFMAN MD To: ANDRIA Hoffman Nurse; Sent: 05/13/2015 14:43:47 WAFER POLISHER go to 15 mg of prednisone this will need 5 mg pills which I will send. come back in 6 weeks to see me. Source: [facility] POWERCHART Document Id: [id number] Electronically signed by [facility] Antenna Rigger [id number] at 08/20/2016 8:22 AM CDT Miscellaneous - Neda Hoffman M.D. - 05/13/2015 2:42 PM CST Results Notification Document Contains Addenda Addendum by LEVI MALONEY LPN on 13 May 2015 15:03:53 [employer]ER called with results From: NEDA HOFFMAN MD To: ANDRIA Hoffman Nurse; Sent: 05/13/2015 14:42:40 W[employer]ER [employer]ISHER ! Show up: 05/13/2015 14:42:40 [employer]ER [employer]ER Subject: Results Notification Actions: Notify patient of results Results: Date Result Name Value Ref Range 05/13/2015 13:05 Sed Rate 27 mm/hr (0 - 29) Source: [facility] POWERCHART Document Id: [id number] Electronically signed by Conversion, [facility] Antenna Rigger [id number] at 08/20/2016 8:22 AM CDT Miscellaneous - Neda Hoffman M.D. - 05/13/2015 1:26 PM CST Results Notification Document Contains Addenda Addendum by LEVI MALONEY LPN on 13 May 2015 15:04:06 WAFER POLISHER c From: NEDA HOFFMAN MD To: ANDRIA Hoffman Nurse; Sent: 05/13/2015 13:26:41 WAFER POLISHER ! Show up: 05/13/2015 13:26:41 WAFER POLISHER Subject: Results Notification Actions: Notify patient of results Reminder Comments: ok Results: Date Result Name Ind Value Ref Range 05/13/2015 13:05 Sodium Lvl (L) 133 mmol/L (138 - 146) 05/13/2015 13:05 Potassium Lvl 4.8 mmol/L (3.5 - 4.9) 05/13/2015 13:05 Chloride (L) 96 mmol/L (98 - 109) 05/13/2015 13:05 CO2 25 mmol/L (24 - 29) 05/13/2015 13:05 Glucose Lvl (H) 173 mg/dL (70 - 140) 05/13/2015 13:05 Creatinine 1.0 mg/dL (0.6 - 1.3) 05/13/2015 13:05 EGFR (MDRD) (L) 54 mL/min/1.73m2 (>=60 - ) 05/13/2015 13:05 EGFR (MDRD) >60 mL/min/1.73m2 (>=60 - ) 05/13/2015 13:05 BUN (H) 33 mg/dL (8 - 26) 05/13/2015 13:05 Calcium Ionized 4.9 mg/dL (4.5 - 5.3) 05/13/2015 13:05 Hct tnp % (34.9 - 44.5) Source: [facility] POWERCHART Document Id: [id number] Miscellaneous - Neda Hoffman M.D. - 05/13/2015 12:59 PM CST Ambulatory Patient Summary [address] [id number] Visit Information Name: BHARATHHARRISONVANESSACHARLEY ANDREW [facility] Number: [id number] Current Date: 05/13/2015 12:59:06 Physicians Attending Provider: NEDA HOFFMAN MD Primary Care Provider: NEDA HOFFMAN MD BHARATHVANESSA KAMRAN has been given the following list [...] tablet) 1 Tablet(s), Oral, once a day This is a CHANGE Routed to [address] [address] losartan (losartan 100 mg oral tablet) 1 Tablet(s), Oral, once a day multivitamin (multivitamin) Oral, once a day predniSONE (predniSONE 5 mg oral tablet) 3 Tablet(s), Oral, once a day This is a CHANGE spironolactone (spironolactone 50 mg oral tablet) 1 Tablet(s), Oral, once a day Stop Taking the Following Medications: Medication list as of 05-13-15 12:59 Attention: If you have any medications at [...] often feel anxious, nervous, and stressed? ?? [id number] Dale Frazier, [address] [place] [address], [place] [address]. All rights reserved. This information is not [...] if you dont have one. Go to [email or web address] and click on Create Your Account. Then, follow the directions to complete the online form. Youll be asked for your [facility] number which you can find at the top of this document. Your Goals/Additional instructions: This document has images extracted. Please consider using [employer] for all your patient education needs. Source: [facility] POWERCHART Document Id: [id number] R POLISHER Miscellaneous - Neda Hoffman M.D. - 05/13/2015 12:59 PM CST Ambulatory Discharge Medication List [address] [id number] Visit Information Name: VANESSA ANDINO KAMRAN [facility] Number: [id number] Visit Date: 05/13/2015 12:59:05 Attending Provider: NEDA HOFFMAN MD Primary Care Provider: NDEA HOFFMAN MD VANESSA ANDINO has been given [...] tablet) 1 Tablet(s), Oral, once a day This is a CHANGE Routed to [place] [id number] losartan (losartan 100 mg oral tablet) 1 Tablet(s), Oral, once a day multivitamin (multivitamin) Oral, once a day predniSONE (predniSONE 5 mg oral tablet) 3 Tablet(s), Oral, once a day This is a CHANGE spironolactone (spironolactone 50 mg oral tablet) 1 Tablet(s), Oral, once a day Stop Taking the Following Medications: Medication list as of 05-13-15 12:59 Attention: If you have any medications at [...] Signed By: Signed On: Additional Information: Source: [facility] POWERCHART Document Id: [id number] R POLISHER Miscellaneous - Levi Maloney L.P.NRegina - 05/13/2015 12:47 PM CST Adult Bow Tacker Intake/History Adult Bow Tacker Intake/History Entered On: 05/13/2015 12:48 [employer]ER Performed On: 05/13/2015 12:47 [employer]ER [employer]ER by LEVI MALONEY LPN Intake Chief Complaint : recheck Temperature Core : 36.4 DegC(Converted to: 97.5 DegF) (LOW) Peripheral Pulse Rate : 78 /min Respiratory Rate : 16 /min Systolic Blood Pressure : 138 mmHg Diastolic Blood Pressure : 72 mmHg NIBP Mean : 94 mmHg BP Location : Left upper extremity Blood Pressure Cuff Size : Large Actual Weight : 71 kg(Converted to: 156 lb 8 oz) Weight Source : Standing scale Dosing Weight Clinic : 71 kg LEVI MALONEY PHOTOGRAPHER MODEL 05/13/2015 12:47 [employer]ER [employer]ISHER General Info Information Given By : Patient Languages : Togolese Is Patient Female and 13-50 no hysterectomy : No LEVI MALONEY PHOTOGRAPHER MODEL - 05/13/2015 12:47 [employer]ER Subjective Pain Symptoms : No LEVI MALONEY PHOTOGRAPHER MODEL 05/13/2015 12:47 [employer]ER POLISHER Dependent Habits Exposure to Tobacco Smoke : Care provider denies smoking in home Smoking Status : Never smoker Tobacco 2A : No Tobacco Use/Currently Using : No Tobacco Use/Last 30 Days : No Tobacco Use/Last 12 months : No LEVI MALONEY PHOTOGRAPHER MODEL 05/13/2015 12:47 WAFER POLISHER Caffeine Use Grid Caffeine Use : Current Type : Coffee Frequency : Daily LEVI MALONEY [facility] - 05/13/2015 12:47 WAFER POLISHER Recreational Drug Use Grid Drug Use : None LEVI MALONEY [facility] 05/13/2015 12:47 WAFER POLISHER Source: [facility] zEconomyCHART Document Id: [id number] WAFER POLISHER!35 R POLISHER documented in this encounter Plan of Treatment Not on filedocumented as of this encounter Procedures Procedure Name Priority Date/Time Associated Comments Diagnosis BASIC METABOLIC PANEL Routine 05/13/2015 1:05 PM Results for this (BMP), POCT, B [employer] procedure are in the results section. SEDIMENTATION RATE, B Routine 05/13/2015 1:05 PM Results for this [employer]ER procedure are i n the results section. documented in this encounter Results Sedimentation Rate (05/13/2015 1:05 PM WAFER POLISHER) Analysis Performed At [facility] Time Signature Sedimentation 27 0 - 29 POWERCHART Rate, B MMHR Specimen (Source) Anatomical Collection Method Collection Time Re ceived Time Location / / Volume Laterality Blood 05/13/2015 1:05 PM WAFER POLISHER Neda Hoffman M.D. LAB BLOOD ADD-ON Performing Organization Address City/[facility]/ZIP Code Phon e Number POWERCHART BMP (Basic Metabolic Panel), POCT (05/13/2015 1:05 PM WAFER POLISHER) P athologist Signature Hematocrit tnp 34.9 - 44.5 POWERCHART Specimen (Source) Anatomical Collection Method Collection Time Re ceived Time Location / / Volume Laterality Blood 05/13/2015 1:05 PM WAFER POLISHER Neda Hoffmna M.D. LAB POCT ORDERABLES - DEVICE Performing Organization Address [facility] Phon e Number POWERCHART documented in this encounter Visit Diagnoses Not on filedocumented in this encounter
--- OUTSIDE RECORDS SUMMARY | 2022-02-28 01:46 | XMS_ITS | Encounter Summary ---
:1940 Author Organization [facility] Address [address] [place] [address] Care Team Providers Name Role Phone Unavailable Primary Care Provider Unavailable Encounter Details Date Type Department Care Team Description 04/22/2015 Hospital Encounter HX [facility] INTERNMED Regulo Hoffman M.D. [address] [place] [address] 021 (Wo rk) Social History Tobacco Use Types Packs/Day Years Used Date Smoking Tobacco: Never Assessed Sex Assigned at Date Recorded Female 09/25/2017 1:20 PM CDT documented as of this encounter Last Filed Vital Signs Vital Sign Reading Time Taken Comments Blood Pressure 140/68 04/22/2015 12:46 PM [employer] Pulse 78 04/22/2015 12:43 PM [employer] Temperature - - Respiratory Rate 16 04/22/2015 12:43 PM [employer] Oxygen Saturation - - Inhaled Oxygen Concentration - - Weight 72 kg (158 lb 11.7 oz) 04/22/2015 12:43 PM [employer] Height - - Body Mass Index 29.59 [...] encounter Progress Notes Neda Hoffman M.D. - 04/22/2015 12:25 PM CST [id number] Vanessa returns for test results and recheck. The patient presents today. She has lost 3 kg which is good but she did have to double her furosemide. She said instead of taking 20 mg she took 40, that was a siegel move because she was not losing any weight before she did that, so at 40 mg of furosemide and 50 mg of spironolactone she has lost 3 kg and is pretty much within 1 kg of baseline. Her blood pressure has finally come down as well. The bad news is the corticosteroids probably precipitated AODM. She has an A1c of 6.6 and a glucose of 144, so these things do diagnose diabetes but they do not require any medication. She should just watch matt and we did talk about that. She is on 10 mg of prednisone. I will check a sedimentation rate today as she is here, but we reallyhave to check her electrolytes. The patient had trouble getting her spironolactone because the pharmacy was blocking because she is on an GUILLERMO inhibitor and spironolactone and furosemide, but that is common combination in clinical medicine and we are checking the electrolytes obviously carefully. She was not able to take the full dose of clonidine because she got too tired in the morning so she basically left the clonidine to 0.3 mg at bedtime and we still have good blood pressure control so that is all she needs to do. The medicines will not be further adjusted as she has really dropped her blood pressure and I suspect it will continue to get better and her weight has fallen nicely but we dovery carefully need to check electrolytes. MEDICATIONS See medicine list in EHR. ALLERGIES [...] or fourthsound, no significant murmur, no gallop. Her legs have shrunk to 0.5+ edema. IMPRESSION/REPORT/PLAN Very salutary response both in blood pressure and fluid retention. Unfortunately the corticosteroidshave precipitated adult onset diabetes mellitus, but does not require treatment at this point. As welower the prednisone I suspect that will improve and she is at 10 mg a day. We will have a BMP pointof care today so we can quickly get back the potassium, creatinine and BUN and make recommendations. In the absence of seeing that blood however I am telling her to stay completely with her medicines as they are. We will check a sedimentation rate and as long as it is in normal range I am not changing the potassium. I will have her come back in 3 weeks. Time component was 25 minutes, about 19 minutes talking about her laboratory tests, her medications,her PMR and her hypertension and fluid retention. Neda Hoffman M.D./kimmie Electronically Signed By: NEDA HOFFMAN MD On: 04/23/2015 07:36 AM Source: [facility] MHSDOLBEYNONRADSYS Document Id: [id number] [employer] documented in this encounter Nursing Notes Romero Forman L.P.N. - 04/27/2015 2:56 PM CST Prior authorization request prednisone Document Contains Addenda Addendum by CARMEN CABRERA RN on 30 April 2015 9:09 [employer] prior authorization for coverage of prednisone has been approved from 03-28-15 through 04-27-2018. faxed to pharmacy and scanned to chart. Modified by and Electronically Signed by: CARMEN CABRERA RN On: 04/30/2015 09:09 AM Prior authorization request for prednisone completed through [employer], [employer] [id number], request was initiated by [facility]. Time spent on form 25 minutes. Electronically Signed By: ROMERO FORMAN LPN On: 04/27/2015 02:59 PM Source: [facility] POWERCHART Document Id: [id number] [employer] documented in this encounter Miscellaneous Notes Telephone Encounter - Conversion, Historical Provider Ser - 04/28/2015 12:38 PM CST *Phone Message/Dilan Hoffman Document Contains Addenda Addendum by ROMERO FORMAN LPN on 29 April 2015 13:01:26 [employer] form completed and sent back. Addendum by PAOLA SANTILLAN LPN on 28 April 2015 13:26:44 [employer] From: PAOLA SANTILLAN LPN (ANDRIA Hoffman Nurse) To: ANDRIA/HUNTER Medication Prior Auth; Sent: 04/28/2015 13:26:44 [employer] Subject: FW: *Phone Message/Dilan Hoffman From: MYAH PERALES To: ANDRIA Hoffman Nurse; Sent: 04/28/2015 12:38:01 [employer] Subject: *Phone Message/Dilan Hoffman Caller is: ( ) Patient ( ) Mother ( ) Father ( ) Spouse ( ) Daughter ( ) Son ( x ) Pharmacy ( ) Other: Physician: Patient MRN #: Reason for Call: [place] needs some additional information on the prior authorization that was started for a medication for Vanessa. She is aware that Dr. Hoffman is out until 05-05-15, but does need this addressed before then. Please call Virginia at [phone]. Message: Advice/Action: Source used: ( ) Verbalizes understanding [...] back cell phone number ( ) Source: [facility] [employer] SurgicalCHART Document Id: [id number] Neda Cotto M.D. - 04/22/2015 2:12 PM CST Results Notification Document Contains Addenda Addendum by LEVI MALONEY LPN on 23 April 2015 08:30:01 [employer] called with results From: NEDA HOFFMAN MD To: ANDRIA Hoffman Nurse; Sent: 04/22/2015 14:12:14 [employer] ! Show up: 04/22/2015 14:12:14 [employer] Subject: Results Notification Actions: Notify patient of results Reminder Comments: still high increase prednisone to 20mg Results: Date Result Name Ind Value Ref Range 04/22/2015 13:00 Sed Rate (H) 42 mm/hr (0 - 29) Source: [facility] [employer] Document Id: [id number] Electronically signed by Conversion, [facility] [employer]itter [id number] at 08/20/2016 7:13 AM Neda Cotto M.D. - 04/22/2015 1:27 PM CST Results Notification Document Contains Addenda Addendum by LEVI MALONEY LPN on 23 April 2015 08:29:54 [employer] called with results From: NEDA HOFFMAN MD To: ANDRIA Hoffman Nurse; Sent: 04/22/2015 13:27:24 [employer] ! Show up: 04/22/2015 13:27:24 [employer] Subject: Results Notification Actions: Notify patient of results Reminder Comments: ok Results: Date Result Name Ind Value Ref Range 04/22/2015 13:00 Sodium Lvl (L) 137 mmol/L (138 - 146) 04/22/2015 13:00 Potassium Lvl 4.4 mmol/L (3.5 - 4.9) 04/22/2015 13:00 Chloride 98 mmol/L (98 - 109) 04/22/2015 13:00 CO2 (L) 23 mmol/L (24 - 29) 04/22/2015 13:00 Glucose Lvl (H) 157 mg/dL (70 - 140) 04/22/2015 13:00 Creatinine 0.9 mg/dL (0.6 - 1.3) 04/22/2015 13:00 EGFR (MDRD) >60 mL/min/1.73m2 (>=60 - ) 04/22/2015 13:00 EGFR (MDRD) >60 mL/min/1.73m2 (>=60 - ) 04/22/2015 13:00 BUN 21 mg/dL (8 - 26) 04/22/2015 13:00 Calcium Ionized 4.7 mg/dL (4.5 - 5.3) 04/22/2015 13:00 Hct tnp % (34.9 - 44.5) Source: [facility] POWERCHART Document Id: [id number] Electronically signed by Conversion, [facility] [employer]itter [id number] at 08/20/2016 7:13 AM CDT Miscellaneous - Neda Hoffman M.D. - 04/22/2015 12:47 PM CST Ambulatory Patient Summary [address] [id number] Visit Information Name: BHARATH VANESSA KAMRAN [facility] Number: [id number] Current Date: 04/22/2015 12:47:04 Physicians Attending Provider: NEDA HOFFMAN MD Primary [...] 0.3 mg oral tablet) 1 Tablet(s), Oral, two times a day desonide topical (desonide 0.05% topical cream) 1 ciara, Topical, two times a day *furosemide (furosemide 20 mg oral tablet) 2 Tablet(s), Oral, once a day This is a CHANGE losartan (losartan 100 mg oral tablet) 1 Tablet(s), Oral, once a day multivitamin (multivitamin) Oral, once a day predniSONE (predniSONE 5 mg oral tablet) 2 Tablet(s), Oral, once a day spironolactone (spironolactone 50 mg oral tablet) 1 Tablet(s), Oral, once a day * You have let us know that you are not taking this medication as listed. Please talk with your primary care provider or the health care provider who prescribed the medication as soon as possible. Stop Taking the Following Medications: Medication list as of 04-22-15 12:47 Attention: If you have any medications at [...] Electronically Signed By: NEDA HOFFMAN MD Signed On:22-APR-2015 12:45:35 Your Allergies & Intolerances Substance Reaction Symptoms [...] Check the ones that apply to you. 15 What You Eat Do you eat a [...] often feel anxious, nervous, and stressed? ?? [id number] [place] [address]. All rights reserved. This information is not [...] dont have one. Go to [email or web address] and click on Create Your Account. Then, follow the directions to complete the online form. Youll be asked for your [facility] number which you can find at the top of this document. Your Goals/Additional instructions: This document has images extracted. Please consider using [employer] for all your patient education needs. Source: [facility] POWERCHART Document Id: [id number] [employer] Miscellaneous - Neda Hoffman M.D. - 04/22/2015 12:47 PM CST Ambulatory Discharge Medication List [address] [id number] Visit Information Name: BHARATHHARRISONVANESSACHARLEY ANDREW [facility] Number: [id number] Visit Date: 04/22/2015 12:47:02 Attending Provider: NEDA HOFFMAN MD Primary Care [...] 0.3 mg oral tablet) 1 Tablet(s), Oral, two times a day desonide topical (desonide 0.05% topical cream) 1 ciara, Topical, two times a day *furosemide (furosemide 20 mg oral tablet) 2 Tablet(s), Oral, once a day This is a CHANGE losartan (losartan 100 mg oral tablet) 1 Tablet(s), Oral, once a day multivitamin (multivitamin) Oral, once a day predniSONE (predniSONE 5 mg oral tablet) 2 Tablet(s), Oral, once a day spironolactone (spironolactone 50 mg oral tablet) 1 Tablet(s), Oral, once a day * You have let us know that you are not taking this medication as listed. Please talk with your primary care provider or the health care provider who prescribed the medication as soon as possible. Stop Taking the Following Medications: Medication list as of 04-22-15 12:47 Attention: If you have any medications at [...] Electronically Signed By: NEDA HOFFMAN MD Signed On:22-APR-2015 12:45:35 Additional Information: Source: [facility] [employer] Document Id: [id number] [employer] Allegracellpatsy - Levi Maloney L.PReginaN. - 04/22/2015 12:46 PM CST Ambulatory Vitals Height Weight Ambulatory Vitals Height Weight Entered On: 04/22/2015 12:47 [employer] Performed On: 04/22/2015 12:46 [employer] by LEVI MALONEY LPN Vitals/Ht/Wt Systolic Blood Pressure : 140 mmHg Diastolic Blood Pressure : 68 mmHg NIBP Mean : 92 mmHg BP Location : Left upper extremity Blood Pressure Cuff Size : Large LEVI MALONEY LPN - 04/22/2015 12:46 [employer] [facility] Document Id: [id number] [employer]!7 [employer] Beka - Levi Maloney LReginaP.N. 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 Entered On: 04/22/2015 12:46 [employer] Performed On: 04/22/2015 12:43 [employer] by LEVI MALONEY LPN Intake Chief Complaint : recheck Temperature Core : 37 DegC(Converted to: 98.6 DegF) Peripheral Pulse Rate : 78 /min Respiratory Rate : 16 /min Systolic Blood Pressure : 144 mmHg (HI) Diastolic Blood Pressure : 72 mmHg NIBP Mean : 96 mmHg BP Location : Left upper extremity Blood Pressure Cuff Size : Large Actual Weight : 72 kg(Converted to: 158 lb 12 oz) Weight Source : Standing scale Dosing Weight Clinic : 72 kg LEVI MALONEY RAScott CARRILLO - 04/22/2015 12:43 [employer] General Info Information Given By : Patient Languages : Bulgarian Is Patient Female and 13-50 no hysterectomy : No LEVI MALONEY GERARDO - 04/22/2015 12:43 [employer] Subjective Pain Symptoms : No LEVI MALONEY LALITHA CARRILLO - 04/22/2015 12:43 [employer] Dependent Habits Exposure to Tobacco Smoke : Care provider denies smoking in home Smoking Status : Never smoker Tobacco 2A : No Tobacco Use/Currently Using : No Tobacco Use/Last 30 Days : No Tobacco Use/Last 12 months : No MALONEYLEVI VALLE LALITHA CARRILLO - 04/22/2015 12:43 [employer] Caffeine Use Grid Caffeine Use : Current Type : Coffee Frequency : Daily LEVI MALONEY GERARDO - 04/22/2015 12:43 [employer] Recreational Drug Use Grid Drug Use : None MALONEYLEVI VALLE LALITHA CARRILLO - 04/22/2015 12:43 [employer] Source: [facility] POWERCHART Document Id: [id number] [employer]!35 [employer] documented in this encounter Plan of Treatment Not on filedocumented as of this encounter Procedures Procedure Name Priority Date/Time Associated Comments Diagnosis BASIC METABOLIC PANEL Routine 04/22/2015 1:00 PM Results for this (BMP), POCT, B [employer] procedure are in the results section. SEDIMENTATION RATE, B Routine 04/22/2015 1:00 PM Results for this [employer] procedure are i n the results section. documented in this encounter Results (ABNORMAL) Sedimentation Rate (04/22/2015 1:00 PM [employer]) Patholo gist Method Time Signature Sedimentation 42 (H) 0 - 29 POWERCHART Rate, B MMHR Specimen (Source) Anatomical Collection Method Collection Time Re ceived Time Location / / Volume Laterality Blood 04/22/2015 1:00 PM [employer] Neda Hoffman M.D. LAB BLOOD ADD-ON Performing Organization Address City/State/ZIP Code Phon e Number POWERCHART BMP (Basic Metabolic Panel), POCT (04/22/2015 1:00 PM [employer]) P athologist Signature Hematocrit tnp 34.9 - 44.5 POWERCHART Specimen (Source) Anatomical Collection Method Collection Time Re ceived Time Location / / Volume Laterality Blood 04/22/2015 1:00 PM [employer] Neda Hoffman M.D. LAB POCT ORDERABLES - DEVICE Performing Organization Address City/State/ZIP Code Phon e Number POWERCHART documented in this encounter Visit Diagnoses Not on filedocumented in this encounter
--- OUTSIDE RECORDS SUMMARY | 2022-02-28 01:46 | XMS_ITS | Encounter Summary ---
:1940 Author Organization [facility] Address [address] [place] [address] Care Team Providers Name Role Phone Unavailable Primary Care Provider Unavailable Encounter Details Date Type Department Care Team Description 04/15/2015 Hospital Encounter HX [facility] FBHB INTERNMED Regulo Hoffman M.D. [address] [place] [address] 021 (Wo rk) Social History Tobacco Use Types Packs/Day Years Used Date Smoking Tobacco: Never Assessed Sex Assigned at Date Recorded Female 09/25/2017 1:20 PM CDT documented as of this encounter Last Filed Vital Signs Vital Sign Reading Time Taken Comments Blood Pressure 198/90 04/15/2015 12:56 PM WALLPAPERER HELPER Pulse 75 04/15/2015 12:50 PM WALLPAPERER HELPER Temperature - - Respiratory Rate 16 04/15/2015 12:50 PM WALLPAPERER HELPER Oxygen Saturation - - Inhaled Oxygen Concentration - - Weight 75 kg (165 lb 5.5 oz) 04/15/2015 12:50 PM WALLPAPERER HELPER Height - - Body Mass Index 30.82 01/19/2015 7:57 AM CDT documented in this [...] encounter Progress Notes Neda Hoffman M.D. - 04/15/2015 12:26 PM CST [id number] CHIEF COMPLAINT/REASON FOR VISIT Elevated blood pressure and weight gain. Patient returns today and she has gained 3 kg so she is up almost 7 pounds from the last visit. Her polymyalgia symptoms are completely under control and she is on 12.5 mg of prednisone. We can drop down to 10, checking a sedimentation rate today, but we have to do something for the fluid that is accumulating on her. I asked her if she takes salt in the diet and she watches it very carefully and she also watches her weight very carefully so I must assume this is salt and water. She has also fairly resistant hypertension because the blood pressures are simply going up despite the addition of medicines and she is on 3 medicines at the moment and has blood pressures that were checked by the machine at 201/65 and 215/72 and then I had the nurse check it and it was 198/90 and the mean pressures on those are 110 on the machine versus 126 by the nurse so either way there is an elevated mean arterial pressure here and we have to do work on that. The patient has some blurred vision and I wonder if the prednisone has precipitated diabetes as well. Certainly it would not be out of control because she is gaining weight. MEDICATIONS See medicine list in EHR. ALLERGIES [...] for this visit. PHYSICAL EXAMINATION HEENT: Eyes: Conjunctivae and lids normal. Pupils equal, round, reactive to light and accommodation.Extraocular movements normal. Sclerae nonicteric. Ophthalmologic exam grossly normal. ENT: Tympanic membranes look okay bilaterally. Nares without erythema or congestion. Mouth without erythema or exudate, no leuko or erythroplakia. NECK: Supple, no adenopathy or thyromegaly. Carotid upstrokes plus 2 bilaterally, no bruits. 0 CHEST: Lung mitchell clear to auscultation and [...] or fourthsound, no significant murmur, no gallop. EXTREMITIES: She has +1 edema in the legs. IMPRESSION/REPORT/PLAN She has fairly resistant hypertension so I am going to use spironolactone instead of hydrochlorothiazide. Recent study has show that is very effective for resistant hypertension because it attacks salt, specifically more effective against salt retention, I will therefore give her a different form of losartan because we cannot use hydrochlorothiazide mixed with losartan. Will increase her clonidine and have her come back in 1 week. The changes in medicines today were as follows. 1. We increased the clonidine from 0.2 to 0.3 mg at bedtime. 2. We discontinued losartan/hydrochlorothiazide. 3. We increased losartan from 50 to 100 mg with a plain losartan 100 mg tablet. 4. We replaced her hydrochlorothiazide with spironolactone 50 mg daily. She remains on her furosemide 20 mg daily as well so the diuretic combination is with now spironolactone and furosemide. Patient today had a BMP, a sedimentation rate, and A1c and will call her with those results. She comes back in 1 week. Time component was 25 minutes, 18 of it was counseling on resistant hypertension. Neda Hoffman M.D./kimmie Electronically Signed By: NEDA HOFFMAN MD On: 04/16/2015 07:33 AM Source: [facility] MHSDOLBEYNONRADSYS Document Id: [id number] PAPERER HELPER documented in this encounter Miscellaneous Notes Telephone Encounter - Conversion, Historical Provider Ser - 04/23/2015 11:33 AM CST *Phone Message Document Contains Addenda Addendum by LEVI MALONEY LPN on 23 April 2015 13:17:59 WALLPAPERER HELPER From: LEVI MALONEY LPN (ANDRIA Hoffman Nurse) To: NEDA HOFFMAN MD; Sent: 04/23/2015 13:17:59 WALLPAPERER HELPER Subject: FW: *Phone Message need new rx for predisone 20mg From: AYAAN ARRIAZA (ANDRIA Meneses Licensed Surveyor) To: ANDRIA Hoffman Nurse; Sent: 04/23/2015 11:33:56 WALLPAPERER HELPER Subject: *Phone Message Caller is: ( x) Patient ( ) Mother ( ) Father ( ) Spouse ( ) Daughter ( ) Son ( ) Pharmacy ( ) Other: Physician: Patient MRN #: Reason for Call: Patient was into see Dr. Hoffman and he increased her medication. Well according to the [facility] the insurance won't cover it now and they say they need Dr. Hoffman to sign something. Please let patient know if this can be fixed. [phone] Message: Advice/Action: Source used: ( ) Verbalizes [...] back cell phone number ( ) Source: [facility] CrowdparkCHART Document Id: [id number] Miscellaneous - Neda Hoffman M.D. - 04/21/2015 7:12 AM CST Results Notification Document Contains Addenda Addendum by LEVI MALONEY LPN on 21 April 2015 10:02:42 WALLPAPERER HELPER appt 04/22/15 From: NEDA HOFFMAN MD To: ANDRIA Hoffman Nurse; Sent: 04/21/2015 07:12:50 WALLPAPERER HELPER ! Show up: 04/21/2015 07:12:50 WALLPAPERER HELPER Subject: Results Notification Actions: Notify patient of results Reminder Comments: diabetic be seen electivelly Results: Date Result Name Ind Value Ref Range 04/15/2015 13:20 Sodium Lvl 139 mmol/L (135 - 145) 04/15/2015 13:20 Potassium Lvl 4.9 mmol/L (3.6 - 5.2) 04/15/2015 13:20 Chloride 99 mmol/L (98 - 107) 04/15/2015 13:20 CO2 26 mmol/L (22 - 29) 04/15/2015 13:20 AGAP 14 mmol/L (7 - 15) 04/15/2015 13:20 Glucose Lvl (H) 146 mg/dL (70 - 139) 04/15/2015 13:20 Creatinine 0.8 mg/dL (0.6 - 1.1) 04/15/2015 13:20 EGFR (MDRD) >60 mL/min/1.73m2 (>=60 - ) 04/15/2015 13:20 EGFR (MDRD) >60 mL/min/1.73m2 (>=60 - ) 04/15/2015 13:20 BUN (H) 25 mg/dL (6 - 21) 04/15/2015 13:20 Calcium Lvl 10.0 mg/dL (8.8 - 10.3) 04/15/2015 13:20 Hgb A1c (H) 6.6 % A1C ( - <=5.6) Source: [facility] POWERCHART Document Id: [id number] Electronically signed by Pj [facility] Corn Detasseler Machine Operator [id number] at 08/20/2016 7:13 AM CDT Miscellaneous - Neda Hoffman M.D. - 04/15/2015 2:26 PM CST Results Notification Document Contains Addenda Addendum by LEVI MALONEY LPN on 16 April 2015 11:05:37 WALLPAPERER HELPER called with results Addendum by LEVI MALONEY LPN on 15 April 2015 16:24:03 WALLPAPERER HELPER Attemped to call patient no answer will try again later From: NEDA HOFFMAN MD To: ANDRIA Hoffman Nurse; Sent: 04/15/2015 14:26:59 WALLPAPERER HELPER ! Show up: 04/15/2015 14:26:59 WALLPAPERER HELPER Subject: Results Notification Actions: Notify patient of results Reminder Comments: good Results: Date Result Name Value Ref Range 04/15/2015 13:20 Sed Rate 25 mm/hr (0 - 29) Source: [facility] POWERCHART Document Id: [id number] Electronically signed by Pj, [facility] Corn Detasseler Machine Operator [id number] at 08/20/2016 7:13 AM CDT Miscellaneous - Neda Hoffman M.D. - 04/15/2015 1:12 PM CST Ambulatory Patient Summary [address] [id number] Visit Information Name: BHARATHHARRISONVANESSACHARLEY ANDREW [facility] Number: [id number] Current Date: 04/15/2015 13:12:16 Physicians Attending Provider: NEDA HOFFMAN MD Primary [...] 1 Tablet(s), Oral, two times a day This is a CHANGE Routed to [address] [address] desonide topical (desonide 0.05% topical cream) 1 ciara, Topical, two times a day furosemide (furosemide 20 mg oral tablet) 1 Tablet(s), Oral, once a day Need labs and appt. losartan (losartan 100 mg oral tablet) 1 Tablet(s), Oral, once a day Routed to [address] [address] multivitamin (multivitamin) Oral, once a day predniSONE (predniSONE 5 mg oral tablet) 2 Tablet(s), Oral, once a day This is a CHANGE spironolactone (spironolactone 50 mg oral tablet) 1 Tablet(s), Oral, once a day New Routed to [address] [address] Stop Taking the Following Medications: Medication list as of 04-15-15 13:12 Attention: If you have any medications at [...] local Clinic if further appointment detail needed. Blurred Vision Blurred vision is the loss of sharpness of vision and the inability to see small details. Any changes in your vision whether sudden or gradual should be checked out by an digital marketing specialist. There are many causes for vision changes including eye disease, a medicine side effect, or a condition like diabetes. Vision changes should never be ignored. They can get worse leading to permanent vision loss, which could cause a big change in the quality of your life. Home Care Take measures to prevent falling at home. ?? Keep walkways clear of objects you may trip over. Use non-slip pads under rugs. ?? Do not walk in poorly lit areas. ?? Be cautious when going up and down curbs, and walking on uneven sidewalks. Brighter lighting in your home may help you see better. Follow Up with an digital marketing specialist or as advised by our staff. Some people misunderstand what kind of eye doctorthey should see. There are two types to consider: ?? An automatic steel tie adjuster is a licensed doctor of optometry (but not a medical doctor). They specialize in eye exams and may diagnose some eye problems. They also prescribe glasses and contact lenses. ?? An cartography/mapping technician is a medical doctor who specialize in eye care. They diagnose and treat all eye diseases, prescribe medicines and perform eye surgery. They may also prescribe glasses and contact lenses. An automatic steel tie adjuster can provide a basic screening eye exam for much less cost than an cartography/mapping technician. The automatic steel tie adjuster can tell you if your condition needs the services of an cartography/mapping technician. Get Prompt Medical Attention if any of the following occur: ?? Sudden change in your vision ?? Eye pain, redness, or discharge from your eyelid ?? Blurriness ?? Dark spots in your field of vision ?? Halos around lights ?? Floaters (dots or strings moving across your field of vision) ?? Sudden flash of light inside your eye ?? Dimness of vision ?? Partial or complete loss of vision ?? [id number] [place] [address]. All rights reserved. This information is not [...] if you dont have one. Go to [email or web address] and click on Create Your Account. Then, follow the directions to complete the online form. Youll be asked for your [facility] number which you can find at the top of this document. Your Goals/Additional instructions: Source: [facility] POWERCHART Document Id: [id number] PAPERER HELPER Miscellaneous - Neda Hoffman M.D. - 04/15/2015 1:12 PM CST Ambulatory Discharge Medication List [address] [id number] Visit Information Name: VANESSA ANDINO [facility] Number: [id number] Visit Date: 04/15/2015 13:12:14 Attending Provider: NEDA HOFFMAN MD Primary Care [...] 1 Tablet(s), Oral, two times a day This is a CHANGE Routed to [address] [address] desonide topical (desonide 0.05% topical cream) 1 ciara, Topical, two times a day furosemide (furosemide 20 mg oral tablet) 1 Tablet(s), Oral, once a day Need labs and appt. losartan (losartan 100 mg oral tablet) 1 Tablet(s), Oral, once a day Routed to [address] [address] multivitamin (multivitamin) Oral, once a day predniSONE (predniSONE 5 mg oral tablet) 2 Tablet(s), Oral, once a day This is a CHANGE spironolactone (spironolactone 50 mg oral tablet) 1 Tablet(s), Oral, once a day New Routed to [address] [address] Stop Taking the Following Medications: Medication list as of 04-15-15 13:12 Attention: If you have any medications at [...] Signed By: Signed On: Additional Information: Source: [facility] CrowdparkCHART Document Id: [id number] PAPERER HELPER Levi Cheng L.P.N. - 04/15/2015 12:56 PM CST Ambulatory Vitals Height Weight Ambulatory Vitals Height Weight Entered On: 04/15/2015 12:56 WALLPAPERER HELPER Performed On: 04/15/2015 12:56 WALLPAPERER HELPER by LEVI MALONEY LPN Vitals/Ht/Wt Systolic Blood Pressure : 198 mmHg (>HHI) Diastolic Blood Pressure : 90 mmHg (HI) NIBP Mean : 126 mmHg BP Location : Left upper extremity Blood Pressure Cuff Size : Regular LEVI MALONEY LPN - 04/15/2015 12:56 WALLPAPERER HELPER [facility] Document Id: [id number] WALLPAPERER HELPER!7 PAPERER HELPER Levi Cheng L.P.N. - 04/15/2015 12:51 PM CST Ambulatory Vitals Height Weight Ambulatory Vitals Height Weight Entered On: 04/15/2015 12:53 WALLPAPERER HELPER Performed On: 04/15/2015 12:51 WALLPAPERER HELPER by LEVI MALONEY LPN Vitals/Ht/Wt Systolic Blood Pressure : 201 mmHg (>HHI) Diastolic Blood Pressure : 65 mmHg NIBP Mean : 110 mmHg BP Location : Left upper extremity Blood Pressure Cuff Size : Regular LEVI MALONEY LPN - 04/15/2015 12:51 WALLPAPERER HELPER [facility] Document Id: [id number] WALLPAPERER HELPER!7 PAPERER HELPER Levi Cheng L.P.N. - 04/15/2015 12:50 PM CST Adult Settlement Worker Intake/History Adult Settlement Worker Intake/History Entered On: 04/15/2015 12:51 WALLPAPERER HELPER Performed On: 04/15/2015 12:50 WALLPAPERER HELPER by LEVI MALONEY LPN Intake Chief Complaint : recheck Temperature Core : 36.7 DegC(Converted to: 98.1 DegF) Peripheral Pulse Rate : 75 /min Respiratory Rate : 16 /min Systolic Blood Pressure : 215 mmHg (>HHI) Diastolic Blood Pressure : 72 mmHg NIBP Mean : 120 mmHg BP Location : Left upper extremity Blood Pressure Cuff Size : Large Actual Weight : 75 kg(Converted to: 165 lb 6 oz) Weight Source : Standing scale Dosing Weight Clinic : 75 kg LEVI MALONEY LPN - 04/15/2015 12:50 WALLPAPERER HELPER General Info Information Given By : Patient Languages : Kazakh Is Patient Female and 13-50 no hysterectomy : No LEVI MALONEY LPN - 04/15/2015 12:50 WALLPAPERER HELPER Subjective Pain Symptoms : No LEVI MALONEY LPN - 04/15/2015 12:50 WALLPAPERER HELPER Dependent Habits Smoking Status : Never smoker Tobacco 2A : No Tobacco Use/Currently Using : No Tobacco Use/Last 30 Days : No Tobacco Use/Last 12 months : No LEVI MALONEY LPN - 04/15/2015 12:50 WALLPAPERER HELPER Caffeine Use Grid Caffeine Use : Current Type : Coffee Frequency : Daily LEVI MALONEY LPN - 04/15/2015 12:50 WALLPAPERER HELPER Recreational Drug Use Grid Drug Use : None LEVI MALONEY LPN - 04/15/2015 12:50 WALLPAPERER HELPER Source: [facility] POWERCHART Document Id: [id number] WALLPAPERER HELPER!34 PAPERER HELPER documented in this encounter Plan of Treatment Not on filedocumented as of this encounter Procedures Procedure Name Priority Date/Time Associated Comments Diagnosis SEDIMENTATION RATE, B Routine 04/15/2015 1:20 PM Results for this WALLPAPERER HELPER procedure are i n the results section. HEMOGLOBIN A1C, B Routine 04/15/2015 1:20 PM Resu lts for this WALLPAPERER HELPER procedure are i n the results section. BASIC METABOLIC PANEL, Routine 04/15/2015 1:20 PM Results for this S/P WALLPAPERER HELPER procedure are i n the results section. documented in this encounter Results Sedimentation Rate (04/15/2015 1:20 PM WALLPAPERER HELPER) Analysis Performed At Patho logist Time Signature Sedimentation 25 0 - 29 POWERCHART Rate, B MMHR Specimen (Source) Anatomical Collection Method Collection Time Re ceived Time Location / / Volume Laterality Blood 04/15/2015 1:20 PM WALLPAPERER HELPER Neda Hoffman M.D. LAB BLOOD ADD-ON Performing Organization Address City/State/ZIP Code Phon e Number POWERCHART (ABNORMAL) BMP (Basic Metabolic Panel) (04/15/2015 1:20 PM WALLPAPERER HELPER) P athologist Signature Anion Gap 14 7 - 15 POWERCHART MMOLL BUN (Blood Urea 25 (H) 6 - 21 POWERCHART Nitrogen), S MGDL Chloride, S 99 98 - 107 POWERCHART MMO[facility] CO2 Total 26 22 - 29 POWERCHART MMOLL Creatinine 0.8 0.6 - 1.1 POWERCHART MGDL Glucose 146 (H) 70 - 139 POWERCHART MGDL Calcium, Total, 10.0 8.8 - 10.3 POWERCHART S MGDL Sodium, S 139 135 - 145 POWERCHART MMOLL Potassium, S 4.9 3.6 - 5.2 POWERCHART MMOLL HXeGFR (MDRD) >60 >=60 POWERCHART [id number] eGFR >60 >=60 POWERCHART Black/ [id number] Mexican Specimen (Source) Anatomical Collection Method Collection Time Re ceived Time Location / / Volume Laterality Blood 04/15/2015 1:20 PM WALLPAPERER HELPER Neda Hoffman M.D. LAB BLOOD ADD-ON Performing Organization Address City/State/ZIP Code Phon e Number POWERCHART (ABNORMAL) Hemoglobin A1c (04/15/2015 1:20 PM WALLPAPERER HELPER) P athologist Signature Hemoglobin A1c, 6.6 (H) <=5.6 A1C POWERCHART B Specimen (Source) Anatomical Collection Method Collection Time Re ceived Time Location / / Volume Laterality Blood 04/15/2015 1:20 PM WALLPAPERER HELPER Neda Hoffman M.D. LAB BLOOD ADD-ON Performing Organization Address City/State/ZIP Code Phon e Number POWERCHART documented in this encounter Visit Diagnoses Not on filedocumented in this encounter
--- OUTSIDE RECORDS SUMMARY | 2022-02-28 01:46 | XMS_ITS | Encounter Summary ---
:1940 Author Organization [facility] Address [address] [place] [address] Care Team Providers Name Role Phone Unavailable Primary Care Provider Unavailable Encounter Details Date Type Department Care Team Description 12/17/2012 Hospital Encounter HX [facility] FBHB MAMMO Eliseo Hoffman M.D. [address] [place] [address] 021 (Wo rk) Social History Tobacco Use [...] Diagnosis Comme nts BI BREAST SCREENING Routine 12/17/2012 4:55 PM Re sults for this BILATERAL CDT procedure are i n the results section. documented in this encounter Results BI Breast Screening Bilateral (12/17/2012 4:55 PM CDT) Anatomical Region Laterality Modality Breast Bilateral Mammography Specimen (Source) Anatomical Collection Method Collection Time Re ceived Time Location / / Volume Laterality 12/17/2012 4:55 PM CDT Addenda Addendum by Provider, Estella Kang 12/17/2012 4:55 PM CDT RAD^^^OW MA Mammo Screening w ??CADD 12/17/2012 16:55:00 Addendum by Provider, Jorge Luis, Estella o n 12/17/2012 4:30 PM CDT RAD^^^OW MA Mammo Screening w ??CADD 12/17/2012 16:30:00 Addendum by Provider, Estella Kang o n 12/17/2012 4:30 PM CDT RAD^^^MA MA MAMMO SCREENING W CADD 12/17/2012 16:30:00 Addendum by Provider, Estella Kang o n 12/17/2012 4:55 PM CDT RAD^^^MA MA MAMMO SCREENING W CADD 12/17/2012 16:55:00 Impressions 12/18/2012 8:22 AM CDT Stable benign findings. ??Recommend annual screening mammography. BREAST MAMMOGRAPHY - GENERAL OBSERVATION S: ??The false negative rate for mammography is 15-20%. ??It cannot b e used, therefore, to replace the regular physical examination. ??A no rmal or noncontributory mammogram report also should not deter t he aggressive further workup of any suspected palpable masses. ACR Code 2. Narrative 12/18/2012 8:22 AM CDT Comparison: 12/15/2011, 12/13/2010. FINDINGS: Breast tissue demonstrates sca ttered fibroglandular tissue. Parenchymal pattern appears stable with mild parenchymal asymmetry. No evidence of suspicious mass, clustere d microcalcification, architectural distortion. Computer aided detection utilized during interpretation of this exam. Procedure Note Ambrose Curtis M.D. / Provider, His cristian M.D. - 08/12/2016 Comparison: 12/15/2011, 12/13/2010. FINDINGS: Breast tissue demonstrates sca ttered fibroglandular tissue. Parenchymal pattern appears stable with mild parenchymal asymmetry. No evidence of suspicious mass, clustere d microcalcification, architectural distortion. Computer aided detection utilized during interpretation of this exam. IMPRESSION: Stable benign findings. Russell mmend annual screening mammography. BREAST MAMMOGRAPHY - GENERAL OBSERVATION S: The false negative rate for mammography is 15-20%. It cannot be used, therefore, to replace the regular physical examination. A norm al or noncontributory mammogram report also should not deter t he aggressive further workup of any suspected palpable masses. ACR Code 2. Historical Provider IMG BI PROCEDURES documented in this encounter Visit Diagnoses Not on filedocumented in this encounter
--- OUTSIDE RECORDS SUMMARY | 2022-02-28 01:46 | XMS_ITS | Encounter Summary ---
:1940 Author Organization [facility] Address [address] [place] [address] Care Team Providers Name Role Phone Unavailable Primary Care Provider Unavailable Encounter Details Date Type Department Care Team Description 02/25/2015 Hospital Encounter HX [facility] INTERNMED Regulo Hoffman M.D. [address] [place] [address] 021 (Wo rk) Social History Tobacco Use Types Packs/Day Years Used Date Smoking Tobacco: Never Assessed Sex Assigned at Date Recorded Female 09/25/2017 1:20 PM CDT documented as of this encounter Last Filed Vital Signs Vital Sign Reading Time Taken Comments Blood Pressure 149/57 02/25/2015 12:45 PM COMMUNICATIONS EDITOR Pulse 77 02/25/2015 12:41 PM COMMUNICATIONS EDITOR Temperature - - Respiratory Rate 14 02/25/2015 12:41 PM COMMUNICATIONS EDITOR Oxygen Saturation - - Inhaled Oxygen Concentration - - Weight 71 kg (156 lb 8.4 oz) 02/25/2015 12:41 PM COMMUNICATIONS EDITOR Height - - Body Mass Index 29.18 [...] encounter Progress Notes Neda Hoffman M.D. - 02/25/2015 12:21 PM CST [id number] CHIEF COMPLAINT/REASON FOR VISIT Recheck on arthritis. HISTORY OF PRESENT ILLNESS She returns after taking 20 mg of prednisone for a couple weeks. She has had virtually all the side effects of prednisone but all the good things too. She feels wonderful. She feels like she can walk like she was 29 years old again. Unfortunately she has had heartburn and she also is developing fluid retention. Her blood pressure is better but as well controlled as I expected with 50 mg of losartan. I think the salt water retention with prednisone is blunting are hypertensive effect. The patient, however, has had a gratifying response and feels very well. MEDICATIONS Per EMR. ALLERGIES Per EMR. SYSTEMS REVIEW In all areas except as mentioned above is negative. PAST MEDICAL/SURGICAL HISTORY 1. Significant for hypertension. 2. Very inflammatory osteoarthritis. 3. Fluid retention irregularly. 4. Dyslipidemia, diet controlled. 5. Varicose veins of the legs. PHYSICAL EXAMINATION VITAL SIGNS: Per EMR. Note hypertension persists. HEENT: Eyes: Conjunctivae and lids normal. Pupils [...] significant murmur, no gallop. EXTREMITIES: She has some edema in the legs, perhaps +1. IMPRESSION/REPORT/PLAN 1. She is getting salt and water retention from prednisone, also heartburn. She was instructed to get hjbl-tbq-toynoqj Zantac and take 150 mg by mouth 2 times a day. 2. Secondly, the patient should have augmentation of her diuretic for both hypertension and her fluid retention. Will do this by changing losartan from 50 mg to losartan/hydrochlorothiazide 50/12.5 and, with the hydrochlorothiazide adding to the furosemide, we will get very strong water and salt loss.The patient's furosemide can remain at a low dose of 20 mg without increasing it. 3. We will drop her prednisone from 20 to 15 mg and find the lowest dose of prednisone that is consistent with improvement in her inflammatory osteoarthritis. The patient is comfortable with this approach and understands all the medicine changes we are making today. She is going from a 20 mg prednisone pill to 15 mg with 5 mg pills, so 3 a day, and she is changing her plain losartan to losartan/hydrochlorothiazide. She will come back in 3 weeks. Her electrolytes will obviously have to be checked andwill see how much weight she has lost. If she has any problems in the meantime, she will call. Time component was 25 minutes, the majority discussing medicine changes, I would say 18 minutes. Neda Hoffman M.D./kimmie Electronically Signed By: NEDA HOFFMAN MD On: 02/26/2015 02:40 PM Source: [facility] MHSDOLBEYNONRADSYS Document Id: [id number] UNICATIONS EDITOR documented in this encounter Miscellaneous Notes Miscellaneous - Neda Hoffman M.D. - 02/25/2015 1:20 PM CST Ambulatory Patient Summary [address] [id number] Visit Information Name: JACOB ANDINO KAMRAN [facility] Number: [id number] Current Date: 02/25/2015 13:20:42 Physicians Attending Provider: NEDA HOFFMAN MD Primary [...] 1 Tablet(s), Oral, once a day (Hyzaar) New Routed to [address] [address] multivitamin (multivitamin) Oral, once a day predniSONE (predniSONE 5 mg oral tablet) 3 Tablet(s), Oral, once a day This is a CHANGE Routed to [address] [address] Stop Taking the Following Medications: Medication list as of 02-25-15 13:20 Attention: If you have any medications at [...] edema Active 07/19/2010 DJD (OA) NOS Active Your Upcoming Appointments Date Time [...] often feel anxious, nervous, and stressed? ?? [phone] [facility], [address] [place] [address], [place] [address]. All rights reserved. This information is not [...] if you dont have one. Go to [email or web address] and click on Create Your Account. Then, follow the directions to complete the online form. Youll be asked for your [facility] number which you can find at the top of this document. Your Goals/Additional instructions: This document has images extracted. Please consider using [employer] for all your patient education needs. Source: [facility] POWERCHART Document Id: [id number] UNICATIONS EDITOR Miscellaneous - Neda Hoffman M.D. - 02/25/2015 1:20 PM CST Ambulatory Discharge Medication List [address] [place], [place] [phone] Visit Information Name: JACOB ANDINO [facility] Number: [id number] Visit Date: 02/25/2015 13:20:41 Attending Provider: NEDA HOFFMAN MD Primary Care [...] 1 Tablet(s), Oral, once a day (Hyzaar) New Routed to [address] [address] multivitamin (multivitamin) Oral, once a day predniSONE (predniSONE 5 mg oral tablet) 3 Tablet(s), Oral, once a day This is a CHANGE Routed to [address] [address] Stop Taking the Following Medications: Medication list as of 02-25-15 13:20 Attention: If you have any medications at [...] Signed By: Signed On: Additional Information: Source: [facility] [employer] Document Id: [id number] UNICATIONS EDITOR Miscellaneous - Reg Saldaña C.M.A. - 02/25/2015 12:45 PM CST Ambulatory Vitals Height Weight Ambulatory Vitals Height Weight Entered On: 02/25/2015 12:45 COMMUNICATIONS EDITOR Performed On: 02/25/2015 12:45 COMMUNICATIONS EDITOR by REG SALDAÑA CMA Vitals/Ht/Wt Systolic Blood Pressure : 149 mmHg (HI) Diastolic Blood Pressure : 57 mmHg NIBP Mean : 88 mmHg BP Location : Left upper extremity Blood Pressure Cuff Size : Regular REG SALDAÑA CMA - 02/25/2015 12:45 COMMUNICATIONS EDITOR Source: [facility] [employer] Document Id: [id number] COMMUNICATIONS EDITOR!7 UNICATIONS EDITOR Miscellaneous - Reg Saldaña C.M.A. 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 Intake/History Entered On: 02/25/2015 12:42 COMMUNICATIONS EDITOR Performed On: 02/25/2015 12:41 COMMUNICATIONS EDITOR by REG SALDAÑA [facility] Intake Chief Complaint : F/U Temperature Core : 36.5 DegC(Converted to: 97.7 DegF) Peripheral Pulse Rate : 77 /min Respiratory Rate : 14 /min Systolic Blood Pressure : 155 mmHg (HI) Diastolic Blood Pressure : 66 mmHg NIBP Mean : 96 mmHg SpO2 : 94 % Oxygen Therapy : Room air Actual Weight : 71 kg(Converted to: 156 lb 8 oz) Weight Source : Standing scale Dosing Weight Clinic : 71 kg REG SALDAÑA CMA - 02/25/2015 12:41 COMMUNICATIONS EDITOR General Info Information Given By : Patient Languages : Jordanian Is Patient Female and 13-50 no hysterectomy : No REG SALDAÑA CMA - 02/25/2015 12:41 COMMUNICATIONS EDITOR Subjective Pain Symptoms : No REG SALDAÑA [facility] - 02/25/2015 12:41 COMMUNICATIONS EDITOR Dependent Habits Smoking Status : Never smoker Tobacco 2A : No REG SALDAÑA [facility] - 02/25/2015 12:41 COMMUNICATIONS EDITOR Caffeine Use Grid Caffeine Use : Current Type : Coffee Frequency : Daily REG SALDAÑA [facility] - 02/25/2015 12:41 COMMUNICATIONS EDITOR Recreational Drug Use Grid Drug Use : None REG SALDAÑA [facility] - 02/25/2015 12:41 COMMUNICATIONS EDITOR Source: [email or web address] Document Id: [id number] COMMUNICATIONS EDITOR!31 UNICATIONS EDITOR documented in this encounter Plan of Treatment Not on filedocumented as of this encounter Visit Diagnoses Not on filedocumented in this encounter
--- OUTSIDE RECORDS SUMMARY | 2022-02-28 01:46 | XMS_ITS | Encounter Summary ---
:1940 Author Organization [facility] Address [address] [place] [address] Care Team Providers Name Role Phone Unavailable Primary Care Provider Unavailable Encounter Details Date Type Department Care Team Description 01/01/2013 Hospital Encounter HX [facility] INTERNMED Regulo Hoffman M.D. [address] [place] [address] 021 (Wo rk) Social History Tobacco Use Types Packs/Day Years Used Date Smoking Tobacco: Never Assessed Sex Assigned at Date Recorded Female 09/25/2017 1:20 PM CDT documented as of this encounter Last Filed Vital Signs Vital Sign Reading Time Taken Comments Blood Pressure 132/68 01/01/2013 3:54 PM CDT Pulse 64 01/01/2013 3:54 PM CDT Temperature - - Respiratory Rate - - Oxygen Saturation - - Inhaled Oxygen Concentration - - Weight 70 kg (154 lb 5.2 oz) 01/01/2013 3:54 PM CDT Height - - Body Mass Index 28.4 08/27/2012 8:21 AM CDT documented in this encounter Medications [...] encounter Progress Notes Neda Hoffman M.D. - 01/01/2013 3:52 PM CDT [id number] Jacob spent a couple days digging potatoes and now has a very sprained right wrist. She did not have any immediate trauma and she did not hear anything pop or snap. However her wrist movement is veryconfined. She does not want to extend it, she does not want to flex it, and she does not have any good lateral bending. There is no warmth or redness. The patient did not have any trauma. Appears be simple overuse from using her wrist. CURRENT MEDICATIONS Per [facility] EMR. ALLERGIES Per [facility] EMR. SYSTEMS REVIEW Review of systems in all areas except as mentioned above is negative. PREVENTIVE SERVICES: Per [facility] EMR. Handwashing done prior to patient contact. PAST MEDICAL/SURGICAL HISTORY Per [facility] EMR. VITAL SIGNS Per [facility] EMR. PHYSICAL EXAMINATION The wrist is held in a neutral position. It will flex but she does not want to. Similarly she does not want to extend. There is tenderness directly over the joint suture. She does not have much lateralbending of the wrist either. IMPRESSION/REPORT/PLAN She has a very severe wrist strain. She is probably too old to dig bags of potatoes by hand. We could treat with nonsteroidal antiinflammatory drugs and immobilization or we could try an injection. Jaocb has had good luck with shoulder injections in the past and she would like to try an injection. Following the universal protocol we prepared with antiseptic and then, under aseptic condition, injected 2 mL of 1% lidocaine and 40 mg of Kenalog into the right wrist. She had immediate relief. Band-Aid applied. No complications. She will call if there is redness, pain or swelling. Otherwise she can call in a few days and let us know how it is working. Neda Hoffman M.D./karen Electronically Signed By: NEDA HOFFMAN MD On: 01/02/2013 01:51 PM Source: [facility] MHSDOLBEYNONRADSYS Document Id: [id number] documented in this encounter Miscellaneous Notes Miscellaneous - Neda Hoffman M.D. - 01/01/2013 4:00 PM CDT Ambulatory Patient Summary [id number] [place] [address] Visit Information Name: JACOB ANDINO [facility] Number: [id number] Current Date: 01/01/2013 16:00:39 Physicians Attending Provider: NEDA HOFFMAN MD Primary Care Provider: NEDA HOFFMAN MD Your Medications Here is a list of your medications. It is important to take your medications as directed. Use a pillbox or chart to help remind you to take your medications. Please let your doctor or nurse know if you have problems taking your medications. Medication/Strength Dose Route Frequency Indications/Special Instructions/Comments/Notes furosemide (furosemide 20 mg oral tablet) 20 mg Oral once a day desonide topical (desonide 0.05% topical cream) 1 ciara Topical two times a day calcium-vitamin D (Calcium 600+D) Oral once a day multivitamin (multivitamin) Oral once a day aspirin (aspirin 81 mg oral tablet) 1 tab(s) Oral once a day Attention: If you have any medications at home that are not on this list, DO NOT take them until youcontact your provider for clarification. 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 - 01/01/2013 4:00 PM CDT Ambulatory Depart Summary [id number] [place] [address] Visit Information Name: JACOB ANDINO [facility] Number: [id number] Visit Date: 01/01/2013 16:00:38 Attending Provider: NEDA HOFFMAN MD Primary Care Provider: NEDA HOFFMAN MD BHARATH JACOB ANDREW has been given the following list of medications: Your Medications It is important to take your medications as directed. Use a pill box or chart to help remind you to take your medications. Please let your doctor or nurse know if you have problems taking your medications. Medication/Strength Dose Route Frequency Indications/Special Instructions/Comments/Notes furosemide (furosemide 20 mg oral tablet) 20 mg Oral once a day desonide topical (desonide 0.05% topical cream) 1 ciara Topical two times a day calcium-vitamin D (Calcium 600+D) Oral once a day multivitamin (multivitamin) Oral once a day aspirin (aspirin 81 mg oral tablet) 1 tab(s) Oral once a day Attention: If you have any medications at home that are not on this list, DO NOT take them until youcontact your provider for clarification. Additional Information: Source: [facility] POWERCHART Document Id: [id number] Miscellaneous - Levi Maloney L.P.N. - 01/01/2013 3:54 PM CDT Adult [place] Intake/History Adult [place] Intake/History Entered On: 01/01/2013 15:56 CDT Performed On: 01/01/2013 15:54 CDT by LEVI MALONEY LPN Intake Chief Complaint : pain in right wrist Peripheral Pulse Rate : 64 /min Heart Rhythm : Regular Systolic Blood Pressure : 132 mmHg Diastolic Blood Pressure : 68 mmHg NIBP Mean : 89 mmHg BP Location : Left upper extremity Blood Pressure Cuff Size : Large Actual Weight : 70 kg(Converted to: 154 lb 5 oz) Weight Source : Standing scale Dosing Weight Clinic : 70 kg LEVI MALONEY LPN - 01/01/2013 15:54 CDT General Info Information Given By : Patient Languages : Bolivian LEVI MALONEY LPN - 01/01/2013 15:54 CDT Subjective Pain Symptoms : No LEVI MALONEY LPN - 01/01/2013 15:54 CDT Dependent Habits Tobacco Use/Currently Using : No Smoking Status : Never smoker LEVI MALONEY LPN - 01/01/2013 15:54 CDT Caffeine Use Grid Caffeine Use : Current Type : Coffee Frequency : Daily LEVI MALONEY LPN - 01/01/2013 15:54 CDT Recreational Drug Use Grid Drug Use : None LEVI MALONEY LPN - 01/01/2013 15:54 CDT [facility] Document Id: [id number] CDT!29 documented in this encounter Plan of Treatment Not on filedocumented as of this encounter Visit Diagnoses Not on filedocumented in this encounter
--- OUTSIDE RECORDS SUMMARY | 2022-02-28 01:46 | XMS_ITS | Encounter Summary ---
:1939 Author Organization [facility] Address [address] [place] [address] Care Team Providers Name Role Phone Unavailable Primary Care Provider Unavailable Encounter Details Date Type Department Care Team Description 11/18/2014 Hospital Encounter HX [facility] FB[facility] INTERNMED Regulo Hoffman M.D. [address] [place] [address] 021 (Wo rk) Social History Tobacco Use Types Packs/Day Years Used Date Smoking Tobacco: Never Assessed Sex Assigned at Date Recorded Female 09/25/2017 1:20 PM CDT documented as of this encounter Last Filed Vital Signs Vital Sign Reading Time Taken Comments Blood Pressure 136/70 11/18/2014 8:41 AM CDT Pulse 80 11/18/2014 8:41 AM CDT Temperature - - Respiratory Rate 16 11/18/2014 8:41 AM CDT Oxygen Saturation - - Inhaled Oxygen Concentration - - Weight 68 kg (149 lb 14.6 oz) 11/18/2014 8:41 AM CDT Height - - Body Mass Index 28.3 12/02/2013 8:17 AM CDT documented in this [...] encounter Progress Notes Neda Hoffman M.D. - 11/18/2014 8:34 AM CDT [id number] She has got a bad pain problem. She has been seen with sciatic symptoms for PT and also in the emergency room twice. She has got pain in her left knee and pain in her left hip area and she has been taking ibuprofen which has not helped. She has been taking muscle relaxants which have not helped and Medrol and they considered the Medrol Dosepak. I will have to examine her and see what is going on. Her knee looks inflamed and I doubt this is sciatica. Laboratories in the emergency room were all fine. MEDICATIONS Per [facility] EMR. ALLERGIES Per [facility] EMR. SYSTEMS REVIEW Review of systems in all areas except as mentioned above is negative. PREVENTIVE SERVICES: Per [facility] EMR. Handwashing done prior to patient contact. PAST MEDICAL/SURGICAL HISTORY Per [facility] EMR. VITAL SIGNS Per [facility] EMR. PHYSICAL EXAMINATION The left knee is having an osteoarthritic flare. It is very tender over the joint sutures. There is no warmth or redness but has obvious deformity and flexion contracture. She also has a trochanteric bursitis of the left hip. IMPRESSION/REPORT/PLAN She has the inflamed left knee and left trochanteric bursitis. We followed the universal protocol and injected her left knee from the medial aspect with 40 mg of Kenalog and 3 mL of 1% lidocaine. Immediate relief obtained. Call if redness, pain or swelling. We then moved to her left hip and did a trochanteric bursitis soft tissue injection with 3 mL of 1% lidocaine and 10 mg of Decadron. She had immediate relief, felt much better, and walked out with much less pain than she came in. She will call ifshe has any problems. Neda Hoffman M.D./kimmie Electronically Signed By: NEDA HOFFMAN MD On: 11/18/2014 10:51 AM Source: [facility] MHSDOLBEYNONRADSYS Document Id: [id number] documented in this encounter Miscellaneous Notes Miscellaneous - Neda Hoffman M.D. - 11/18/2014 9:20 AM CDT Ambulatory Patient Summary [address] [place], [place] [phone] Visit Information Name: JACOB ANDINO [facility] Number: [id number] Current Date: 11/18/2014 09:20:03 Physicians Attending Provider: NEDA HOFFMAN MD Primary [...] once a day Need labs and appt. multivitamin (multivitamin) Oral, once a day Stop Taking the Following Medications: Medication list as of 11-18-14 09:20 Attention: If you have any medications at [...] Electronically Signed By: NEDA HOFFMAN MD Signed On:18-NOV-2014 09:19:15 Your Allergies & Intolerances Substance Reaction Symptoms [...] cartilage lining of the joint; arthritis from eriy-jtw-asfx or inflammation; and other causes. There may also be swelling, reduced movement of the knee joint and pain with walking. A definite diagnosis was not made today. If your symptoms do not improve, further follow-up and testing may be needed. Home Care: Stay off the injured leg as [...] as directed by your healthcare provider ?? [phone] [facility], [address] [place] [address], [place] [address]. All rights reserved. This information is not intended as a substitute for professional medical care. Always follow your healthcare professional's instructions. Consider Using [employer] Patient [employer] is a secure online and Mobile application that lets you: d?? View lab and test results ?? View portions of your medical record including clinical notes, immunizations and discharge summaries ?? Request an appointment or medication refill ?? Review your appointment schedule ?? Send secure messages to your care team Its easy to create an account if you dont have one. Go to [email or web address] and click on Create Your Account. Then, follow the directions to complete the online form. Youll be asked for your [facility] number which you can find at the top of this document. Your Goals/Additional instructions: This document has images extracted. Please consider using [employer] [address] for all your patient education needs. Source: [facility] POWERCHART Document Id: [id number] Miscellaneous - Neda Hoffman M.D. - 11/18/2014 9:20 AM CDT Ambulatory Discharge Medication List [address] [id number] Visit Information Name: JACOB ANDINO [facility] Number: [id number] Visit Date: 11/18/2014 09:20:02 Attending Provider: NEDA HOFFMAN MD Primary Care Provider: NEDA HOFFMAN MD JACOB ANDINOEN has been given the [...] once a day Need labs and appt. multivitamin (multivitamin) Oral, once a day Stop Taking the Following Medications: Medication list as of 11-18-14 09:20 Attention: If you have any medications at [...] Electronically Signed By: NEDA HOFFMAN MD Signed On:18-NOV-2014 09:19:15 Additional Information: Source: [facility] POWERCHART Document Id: [id number] Miscellaneous - Levi Maloney L.P.N. - 11/18/2014 8:41 AM CDT Adult M[employer] Intake/History Adult [employer] [place] Intake/History Entered On: 11/18/2014 8:44 CDT Performed On: 11/18/2014 8:41 CDT by LEVI MALONEY LPN Intake Chief Complaint : pain all over pain in left knee Temperature Core : 37 DegC(Converted to: 98.6 DegF) Peripheral Pulse Rate : 80 /min Respiratory Rate : 16 /min Heart Rhythm : Regular Systolic Blood Pressure : 136 mmHg Diastolic Blood Pressure : 70 mmHg NIBP Mean : 92 mmHg BP Location : Left upper extremity Blood Pressure Cuff Size : Regular Actual Weight : 68 kg(Converted to: 149 lb 15 oz) Weight Source : Standing scale Dosing Weight Clinic : 68 kg LEVI MALONEY LPN - 11/18/2014 8:41 CDT General Info Information Given By : Patient Languages : Somali Is Patient Female and 13-50 no hysterectomy : No LEVI MALONEY LPN - 11/18/2014 8:41 CDT Subjective Pain Symptoms : Yes LEVI MALONEY LPN - 11/18/2014 8:41 CDT Pain Scale Pain Scale Verbal 0-10 : Open LEVI MALONEY LPN - 11/18/2014 8:41 CDT Pain Pain Assessment Grid Pain 1 Location : Knee Laterality : Left LEVI MALONEY RAE MAT PUNCHER - 11/18/2014 8:41 CDT Dependent Habits Tobacco Use/Currently Using : No Smoking Status : Never smoker LEVI MALONEY [facility] - 11/18/2014 8:41 CDT Caffeine Use Grid Caffeine Use : Current Type : Coffee Frequency : Daily LEVI MALONEY RAE [facility]CHER - 11/18/2014 8:41 CDT Recreational Drug Use Grid Drug Use : None LEVI MALONEY LALITHA MAT PUNCHER - 11/18/2014 8:41 CDT Source: [employer] Document Id: [id number] CDT!39 documented in this encounter Plan of Treatment Not on filedocumented as of this encounter Visit Diagnoses Not on filedocumented in this encounter
--- OUTSIDE RECORDS SUMMARY | 2022-02-28 01:46 | XMS_ITS | Encounter Summary ---
:1940 Author Organization [facility] Address [address] [place] [address] Care Team Providers Name Role Phone Unavailable Primary Care Provider Unavailable Encounter Details Date Type Department Care Team Description 02/10/2015 Hospital Encounter HX [facility] FBHB INTERNMED Regulo Hoffman M.D. [address] [place] [address] 021 (Wo rk) Social History Tobacco Use Types Packs/Day Years Used Date Smoking Tobacco: Never Assessed Sex Assigned at Date Recorded Female 09/25/2017 1:20 PM CDT documented as of this encounter Last Filed Vital Signs Vital Sign Reading Time Taken Comments Blood Pressure 168/64 02/10/2015 9:41 AM ENTRY CLERK Pulse 91 02/10/2015 9:37 AM ENTRY CLERK Temperature - - Respiratory Rate 16 02/10/2015 9:37 AM ENTRY CLERK Oxygen Saturation - - Inhaled Oxygen Concentration - - Weight 71 kg (156 lb 8.4 oz) 02/10/2015 9:37 AM ENTRY CLERK Height - - Body Mass Index 29.18 [...] encounter Progress Notes Neda Hoffman M.D. - 02/10/2015 9:32 AM CST [id number] CHIEF COMPLAINT/REASON FOR VISIT Aching all over. 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 She has an inflammatory component to her osteoarthritis than it is really difficult for her. She has gotten better with prednisone in the past and her sedimentation rate was 67 so there may be a component of polymyalgia rheumatica as well. Blood pressure is also elevated and has been the last 2 visits. MEDICATIONS See medicine list in EHR. ALLERGIES [...] for this visit. PHYSICAL EXAMINATION She has actually some synovitis in both wrists. I could not find any in the shoulders or elbows or the fingers, although all were painful. IMPRESSION/REPORT/PLAN 1. There could be low-grade polymyalgia rheumatica. There could be a very inflammatory degenerative arthritis. I will start her on prednisone 20 mg a day and have her come back in 14 days. We will thentaper the prednisone to the lowest possible dose following the sedimentation rate. The patient was co mfortable with that. 2. Hypertension. She will go on losartan 50 mg a day and we will recheck her in 2 weeks and draw bloods. Again, she will have a BMP and a sedimentation rate today and again when she returns in 2 weeks. Neda Hoffman M.D./kimmie Electronically Signed By: NEDA HOFFMAN MD On: 02/11/2015 12:30 PM Source: [facility] [email or web address] Document Id: [id number] Y CLERK documented in this encounter Miscellaneous Notes Miscellaneous - Neda Hoffman M.D. - 02/10/2015 8:35 PM CST Results Notification Document Contains Addenda Addendum by LEVI MALONEY LPN on 11 February 2015 15:54:07 ENTRY CLERK called with results From: NEDA HOFFMAN MD To: ANDRIA Hoffman Nurse; Sent: 02/10/2015 20:35:37 ENTRY CLERK ! Show up: 02/10/2015 20:35:37 ENTRY CLERK Subject: Results Notification Actions: Notify patient of results Reminder Comments: ok Results: Date Result Name Ind Value Ref Range 02/10/2015 10:00 Sodium Lvl 141 mmol/L (135 - 145) 02/10/2015 10:00 Potassium Lvl 4.2 mmol/L (3.6 - 5.2) 02/10/2015 10:00 Chloride 103 mmol/L (98 - 107) 02/10/2015 10:00 CO2 24 mmol/L (22 - 29) 02/10/2015 10:00 Glucose Lvl 131 mg/dL (70 - 139) 02/10/2015 10:00 Creatinine 0.8 mg/dL (0.6 - 1.1) 02/10/2015 10:00 EGFR (MDRD) >60 mL/min/1.73m2 (>=60 - ) 02/10/2015 10:00 EGFR (MDRD) >60 mL/min/1.73m2 (>=60 - ) 02/10/2015 10:00 BUN 13 mg/dL (6 - 21) 02/10/2015 10:00 Calcium Lvl 9.3 mg/dL (8.8 - 10.3) 02/10/2015 10:00 Sed Rate (H) 52 mm/hr (0 - 29) Source: [facility] POWERCHART Document Id: [id number] Electronically signed by Conversion, [facility] X Ray Operator [id number] at 08/22/2016 5:59 AM CDT Miscellaneous - Neda Hoffman M.D. - 02/10/2015 9:53 AM CST Ambulatory Patient Summary [address] [id number] Visit Information Name: BHARATH JACOB ANDREW [facility] Number: [id number] Current Date: 02/10/2015 09:53:08 Physicians Attending Provider: NEDA HOFFMAN MD Primary Care Provider: NEDA HOFFMAN MD JACOB ANDINO KAMRAN has been given the following [...] day Need labs and appt. losartan (losartan 50 mg oral tablet) 1 Tablet(s), Oral, once a day New Routed to [address] [address] multivitamin (multivitamin) Oral, once a day nitrofurantoin (Macrobid 100 mg oral capsule) 1 cap, Oral, two times a day x 10 day(s) predniSONE (predniSONE 20 mg oral tablet) 1 Tablet(s), Oral, once a day Routed to [address] [address] Stop Taking the Following Medications: Medication list as of 02-10-15 09:53 Attention: If you have any medications at [...] local Clinic if further appointment detail needed. Living with Osteoarthritis Osteoarthritis is an ongoing problem. But it doesnt have to keep you from leading an active life. You can help control symptoms by exercising and watching your weight. Using special tools also helps make life easier. Be sure to see your doctor as requested for checkups and lab work. Make Exercise Part of Your Life Gentle exercise can help lessen your pain. Keep the following in mind when you work out: ?? Choose exercises that improve joint motion and make your muscles stronger. Your doctor or a physical therapist may suggest a few. ?? Try low-impact sports, such as walking, biking, or doing exercises in a warm pool. ?? Dont push yourself too hard at first. Slowly build up your endurance over time. ?? When pain and stiffness increase, cut back on your workout. Watch Your Weight If you weigh more than you should, your weight-bearing joints are under extra pressure. This makes your symptoms worse. To reduce pain and stiffness, try shedding a few of those extra pounds. The tips below may help: ?? Start a weight-loss program with the help of your doctor. ?? Ask your friends and family for support. ?? Join a weight-loss group. Use Special Tools Even simple tasks can be hard to do when your joints hurt. The special tools and aids listed here can make things easier by reducing strain and protecting your joints. Ask your health care provider where to find these and other helpful tools: ?? Long-handled reachers or grabbers ?? Jar openers and button threaders ?? Splints for your wrists or other joints ?? Large fruit packer face and fill for pencils, garden tools, and other hand-held objects ?? [id number] [facility], [address] [place] [address], [place] [address]. All rights reserved. This information is not [...] if you dont have one. Go to [email or web address] and click on Create Your Account. Then, follow the directions to complete the online form. Youll be asked for your [facility] number which you can find at the top of this document. Your Goals/Additional instructions: This document has images extracted. Please consider using [employer] for all your patient education needs. Source: [facility] POWERCHART Document Id: [id number] Y CLERK Miscellaneous - Neda Hoffman M.D. - 02/10/2015 9:53 AM CST Ambulatory Discharge Medication List [address] [id number] Visit Information Name: JACOB ANDINO [facility] Number: [id number] Visit Date: 02/10/2015 09:53:06 Attending Provider: NEDA HOFFMAN MD Primary Care [...] day Need labs and appt. losartan (losartan 50 mg oral tablet) 1 Tablet(s), Oral, once a day New Routed to [address] [address] multivitamin (multivitamin) Oral, once a day nitrofurantoin (Macrobid 100 mg oral capsule) 1 cap, Oral, two times a day x 10 day(s) predniSONE (predniSONE 20 mg oral tablet) 1 Tablet(s), Oral, once a day Routed to [address] [address] Stop Taking the Following Medications: Medication list as of 02-10-15 09:53 Attention: If you have any medications at [...] Signed By: Signed On: Additional Information: Source: [facility] [employer] Document Id: [id number] Y CLERK Levi Cheng LReginaP.NRegina - 02/10/2015 9:41 AM CST Ambulatory Vitals Height Weight Ambulatory Vitals Height Weight Entered On: 02/10/2015 9:41 ENTRY CLERK Performed On: 02/10/2015 9:41 ENTRY CLERK by LEVI MALONEY LPN Vitals/Ht/Wt Systolic Blood Pressure : 168 mmHg (>HHI) Diastolic Blood Pressure : 64 mmHg NIBP Mean : 99 mmHg BP Location : Left upper extremity Blood Pressure Cuff Size : Regular LEVI MALONEY LPN - 02/10/2015 9:41 ENTRY CLERK Source: [facility] WhisherCHART Document Id: [id number] ENTRY CLERK!7 Y CLERK Levi Cheng LReginaP.N. - 02/10/2015 9:37 AM CST Adult Marine Extension Agent Intake/History Adult Marine Extension Agent Intake/History Entered On: 02/10/2015 9:40 ENTRY CLERK Performed On: 02/10/2015 9:37 ENTRY CLERK by LEVI MALONEY LPN Intake Chief Complaint : aches all over Temperature Core : 36.9 DegC(Converted to: 98.4 DegF) Peripheral Pulse Rate : 91 /min Respiratory Rate : 16 /min Heart Rhythm : Regular Systolic Blood Pressure : 189 mmHg (>HHI) Diastolic Blood Pressure : 72 mmHg NIBP Mean : 111 mmHg BP Location : Left upper extremity Blood Pressure Cuff Size : Regular Actual Weight : 71 kg(Converted to: 156 lb 8 oz) Weight Source : Standing scale Dosing Weight Clinic : 71 kg MALONEYLEVI [facility] 02/10/2015 9:37 ENTRY CLERK General Info Information Given By : Patient Languages : Amharic Is Patient Female and 13-50 no hysterectomy : No LEVI MALONEY [facility] 02/10/2015 9:37 ENTRY CLERK Subjective Pain Symptoms : Yes LEVI MALONEY [facility] 02/10/2015 9:37 ENTRY CLERK Pain Scale Pain Scale Verbal 0-10 : Open LEVI MALONEY [facility] 02/10/2015 9:37 ENTRY CLERK Pain Pain Assessment Grid Pain 1 Location : Other: all over LEVI MALONEY [facility] 02/10/2015 9:37 ENTRY CLERK Dependent Habits Tobacco Use/Currently Using : No Smoking Status : Never smoker LEVI MALONEY [facility] 02/10/2015 9:37 ENTRY CLERK Caffeine Use Grid Caffeine Use : Current Type : Coffee Frequency : Daily LEVI MALONEY [facility] 02/10/2015 9:37 ENTRY CLERK Recreational Drug Use Grid Drug Use : None LEVI MALONEY [facility] 02/10/2015 9:37 ENTRY CLERK Source: [facility] POWERCHART Document Id: [id number] ENTRY CLERK!38 Y CLERK documented in this encounter Plan of Treatment Not on filedocumented as of this encounter Procedures Procedure Name Priority Date/Time Associated Comments Diagnosis SEDIMENTATION RATE, B Routine 02/10/2015 10:00 Re sults for this AM ENTRY CLERK procedure are i n the results section. BASIC METABOLIC PANEL, Routine 02/10/2015 10:00 R esults for this S/P AM ENTRY CLERK procedure are i n the results section. documented in this encounter Results (ABNORMAL) Sedimentation Rate (02/10/2015 10:00 AM ENTRY CLERK) Patholo gist Method Time Signature Sedimentation 52 (H) 0 - 29 POWERCHART Rate, B MMHR Specimen (Source) Anatomical Collection Method Collection Time Re ceived Time Location / / Volume Laterality Blood 02/10/2015 10:00 AM ENTRY CLERK Neda Hoffman M.D. LAB BLOOD ADD-ON Performing Organization Address City/State/ZIP Code Phon e Number POWERCHART BMP (Basic Metabolic Panel) (02/10/2015 10:00 AM ENTRY CLERK) P athologist Signature BUN (Blood Urea 13 6 - 21 POWERCHART Nitrogen), S MGDL Chloride, S 103 98 - 107 POWERCHART MMOLL CO2 Total 24 22 - 29 POWERCHART MMOLL Creatinine 0.8 0.6 - 1.1 POWERCHART MGDL Glucose 131 70 - 139 POWERCHART MGDL Calcium, Total, 9.3 8.8 - 10.3 POWERCHART S MGDL Sodium, S 141 135 - 145 POWERCHART MMOLL Potassium, S 4.2 3.6 - 5.2 POWERCHART MMOLL HXeGFR (MDRD) >60 >=60 POWERCHART [id number] eGFR >60 >=60 POWERCHART Black/ [id number] Iranian Specimen (Source) Anatomical Collection Method Collection Time Re ceived Time Location / / Volume Laterality Blood 02/10/2015 10:00 AM ENTRY CLERK Neda Hoffman M.D. LAB BLOOD ADD-ON Performing Organization Address City/State/ZIP Code Phon e Number POWERCHART documented in this encounter Visit Diagnoses Not on filedocumented in this encounter
--- OUTSIDE RECORDS SUMMARY | 2022-02-28 01:46 | XMS_ITS | Encounter Summary ---
:1940 Author Organization [facility] Address [address] [place] [address] Care Team Providers Name Role Phone Unavailable Primary Care Provider Unavailable Encounter Details Date Type Department Care Team Description 12/18/2013 Hospital Encounter HX [facility] FBHB MAMMO Eliseo Hoffman M.D. [address] [place] [address] [phone] (Wo rk) Social History Tobacco [...] Diagnosis Comme nts BI BREAST SCREENING Routine 12/18/2013 4:06 PM Re sults for this BILATERAL CDT procedure are i n the results section. documented in this encounter Results BI Breast Screening Bilateral (12/18/2013 4:06 PM CDT) Anatomical Region Laterality Modality Breast Bilateral Mammography Specimen (Source) Anatomical Collection Method Collection Time Re ceived Time Location / / Volume Laterality 12/18/2013 4:06 PM CDT Addenda Addendum by Provider, Estella Kang 12/18/2013 4:06 PM CDT RAD^^^OW MA Mammo Screening w ??CADD 12/18/2013 16:06:24 Addendum by Provider, Estella Kang o n 12/18/2013 4:00 PM CDT RAD^^^OW MA Mammo Screening w ??CADD 12/18/2013 16:00:00 Addendum by Provider, Estella Kang n 12/18/2013 4:06 PM CDT RAD^^^MA MA MAMMO SCREENING W CADD 12/18/2013 16:06:24 Addendum by Provider, Estella Kang o n 12/18/2013 4:00 PM CDT RAD^^^MA MA MAMMO SCREENING W CADD 12/18/2013 16:00:00 Narrative 12/18/2013 4:36 PM CDT EXAM: MA Mammo Screening w/ CADD INDICATION: Other Screening Mammogram COMPARISON: 12/17/2012, 12/15/2011, and . FINDINGS: Breasts are of scattered resid ual fibroglandular tissue in a stable pattern. No suspicious dominant mass or clustered microcalcifications suspicious for malig shannon identified. There is no suspicious interval change compared with 12/17/2012. CAD was utilized in the interpretation o f this exam. Impression: Stable mammogram, no evidenc e of malignancy. BI-RADS code: 1, negative mammogram. Procedure Note Renato Mcgregor Jr., M.D. / Jorge Luis Solares M.D. - 08/06/2016 EXAM: MA Mammo Screening w/ CADD INDICATION: Other Screening Mammogram COMPARISON: 12/17/2012, 12/15/2011, and . FINDINGS: Breasts are of scattered resid ual fibroglandular tissue in a stable pattern. No suspicious dominant mass or clustered microcalcifications suspicious for malig shannon identified. There is no suspicious interval change compared with 12/17/2012. CAD was utilized in the interpretation o f this exam. Impression: Stable mammogram, no evidenc e of malignancy. BI-RADS code: 1, negative mammogram. Historical Provider IMG BI PROCEDURES documented in this encounter Visit Diagnoses Not on filedocumented in this encounter
--- OUTSIDE RECORDS SUMMARY | 2022-02-28 01:46 | XMS_ITS | Encounter Summary ---
:1940 Author Organization [facility] Address [address] [place] [address] Care Team Providers Name Role Phone Unavailable Primary Care Provider Unavailable Encounter Details Date Type Department Care Team Description 01/19/2015 Hospital Encounter HX [facility] INTERNMED Regulo Hoffman M.D. [address] [place] [address] 021 (Wo rk) Social History Tobacco Use Types Packs/Day Years Used Date Smoking Tobacco: Never Assessed Sex Assigned at Date Recorded Female 09/25/2017 1:20 PM CDT documented as of this encounter Last Filed Vital Signs Vital Sign Reading Time Taken Comments Blood Pressure 138/68 01/19/2015 7:57 AM CDT Pulse 80 01/19/2015 7:57 AM CDT Temperature - - Respiratory Rate 16 01/19/2015 7:57 AM CDT Oxygen Saturation - - Inhaled Oxygen Concentration - - Weight 69 kg (152 lb 1.9 oz) 01/19/2015 7:57 AM CDT Height 156 cm (5' 1.42) 01/19/2015 7:57 AM CDT Body Mass Index 28.35 01/19/2015 7:57 AM CDT documented in this [...] encounter Progress Notes Neda Hoffman M.D. - 01/19/2015 7:52 AM CDT [id number] Vanessa presents today for physical exam. 1. She has diffuse aches and pains everywhere. Her hands are difficult. Her knees are difficult. [place] muscles are difficult. Her thigh muscles are difficult. It does give a picture that there could be polymyalgia rheumatica but I am not certain about that. She has fairly severe degenerative arthritis at baseline. There are no red, warm joints so I do not know if there is any gout but we will investigate with laboratories. I told her I would then treated with prednisone, which will make her better, and once the labs are done we can do that at least for the short term. 2. Decreased hearing in the right ear. She wants to make sure that there is no evidence of wax. 3. Malaise and fatigue. The patient is experiencing some malaise and fatigue. She is not very concerned about this. She feels it is probably constitutional or related to aging, but she wants to be surethere are no metabolic abnormalities. 4. Dyslipidemia, diet controlled. The patient has had elevated cholesterols in the past. She is working on diet to try to improve this. Will check cholesterol today and see how she is doing. 5. Hypertension. Control is excellent and she has never had any target organ damage or clinical cardiovascular disease. Electrolytes will be checked today. MEDICATIONS Per EMR. ALLERGIES Per EMR. SYSTEMS REVIEW In all areas except as mentioned above is negative. PAST MEDICAL/SURGICAL HISTORY 1. For dyslipidemia. 2. Hypertension. 3. Varicose veins of the lower extremities. 4. Chronic malaise, fatigue. 5. Severe degenerative arthritis. SOCIAL HISTORY She is . She is no longer working. She is fully retired. She lives in her own home and has good support with neighbors and other people would check with her. She has no tobacco and she has rarest of social alcohol. PHYSICAL EXAMINATION VITAL SIGNS: Per EMR. Note that her blood pressure is fine. HEENT: Eyes: Conjunctivae and lids normal. Pupils equal, round, reactive to light and accommodation.Extraocular movements normal. Sclerae nonicteric. Ophthalmologic exam grossly normal. ENT: Tympanic membranes look okay bilaterally. Nares without erythema or congestion. Mouth without erythema or exudate, no leuko or erythroplakia. [place] teeth top and bottom. She had no cerumen in either ear. NECK: Supple, no adenopathy or thyromegaly. Carotid upstrokes plus 2 bilaterally, no bruits. CHEST: Lung mitchell clear to auscultation and percussion with normal respiratory rate and effort. BREASTS: Palpation of the breasts is without mass or discharge, there is no axillary supraclavicularadenopathy, there is no nipple inversion, or dimpling [...] bilaterally; no bruits over the femoral arteries. GENITOURINARY AND RECTAL: Deferred. EXTREMITIES: She has obvious degenerative changes in both knees with the right knee worse than the left today. She had no red or warm joints. She has Heberden's nodes suggestive of degenerative joint disease. SKIN: Inspection of the skin and subcutaneous tissue reveals nothing inconsistent with age. NEUROLOGIC: Cranial nerves II to XII are grossly intact. Reflexes in the upper and lower extremitiesare bilaterally symmetric. Toes are downgoing. There is no dysmetria. Gait is normal. IMPRESSION/REPORT/PLAN 1. 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 I think the chance of gout is very low given the clinical presentation. I will today checkfull laboratories including a sedimentation rate and a uric acid and then, once laboratories are done, she can start prednisone 50 mg daily once with each breakfast. Today she will take 1 at lunch and,starting tomorrow, at breakfast each day till gone. I gave her 2 weeks with no refills as labs will be back within 48 hours but next week I am doing hospitalist work at [facility] so I will not be back in clinic for 2 weeks so will keep her covered with the prednisone until I am back in clinic. 2. Dyslipidemia, diet controlled. Patient is working on diet. Lipid panel is done today to assess whether she is successful. 3. Hypertension. Control is good. Check her electrolytes and creatinine and BUN today. No evidence of target organ damage or clinical cardiovascular disease. 4. Malaise and fatigue, probably constitutional. Nothing clearly found on examination, but we will check a hemoglobin, TSH and glucose to rule out metabolic problems. 5. Inactive problems: Please see Past Medical History. HEALTH MAINTENANCE CONCERNS Instructed to have a complete physical examination once a year, to see an manager pathology or prototype special build once a year for glaucoma screening, and [...] generic multivitamin without iron once a day. With laboratories done today and her shots she is up to date on everything. The patient received her flu shot today and the Prevnar 13. She was apprised that Medicare no longer covers tetanus shots. She will do be due for that next year. Laboratoriestoday: She had a uric acid, an ALT, a BMP, a hemoglobin, a lipid panel, a sedimentation rate, thyroid function cascade and a UA with reflex to culture. We will call heart with test results. Prednisone was sent to her pharmacy. Neda Hoffman M.D./kimmie Electronically Signed By: NEDA HOFFMAN MD On: 01/20/2015 08:50 AM Source: [facility] MHSDOLBEYNONRADSYS Document Id: [id number] documented in this encounter Miscellaneous Notes Miscellaneous - Neda Hoffman M.D. - 02/09/2015 3:50 PM CST From: NEDA HOFFMAN MD To: ANDRIA Hoffman Nurse; Sent: 02/09/2015 15:50:46 MOLD MAKER APPRENTICE antibiotic sent Source: [facility] POWERCHART Document Id: [id number] Telephone Encounter - Conversion, Historical Provider Ser - 02/09/2015 7:49 AM CST *Phone Message/ Dilan Hoffman Document Contains Addenda Addendum by LEVI MALONEY LPN on 09 February 2015 11:08:57 MOLD MAKER APPRENTICE called with results Addendum by NEDA HOFFMAN MD on 09 February 2015 10:41:52 MOLD MAKER APPRENTICE From: NEDA HOFFMAN MD To: ANDRIA Hoffman Nurse; Sent: 02/09/2015 10:41:52 MOLD MAKER APPRENTICE Subject: RE: *Phone Message/ Dilan Hoffman I will send antibiotic Addendum by LEVI MALONEY LPN on 09 February 2015 10:29:14 MOLD MAKER APPRENTICE From: LEVI MALONEY LPN ( Neda Hoffman Nurse) To: NEDA HOFFMAN MD; Sent: 02/09/2015 10:29:14 MOLD MAKER APPRENTICE Subject: FW: *Phone Message/ Dilan Hoffman Has appt tomarrow but would like something today for UIT From: SAM ANDUJAR To: ANDRIA Hoffman Nurse; Sent: 02/09/2015 07:49:13 MOLD MAKER APPRENTICE Subject: *Phone Message/ Dilan Hoffman Caller is: ( x ) Patient ( ) Mother ( ) Father ( ) Spouse ( ) Daughter ( ) Son ( ) Pharmacy ( ) Other: Physician: Dilan Hoffman Patient MRN #: Reason for Call: Message: Vanessa would like to talk with the nurse regarding her symptoms. States that she has had walking issues in the past and was told not to wait too long if she developes symptoms again. Also thinks she may have a UTI. She does have an appointment for tomorrow (02/10/15) with Dr Hoffman but would like to talk with the nurse today. Vanessa can be reached back at Advice/Action: Source [...] back cell phone number ( ) Source: [facility] Crossbar Document Id: [id number] Neda Alegre M.D. - 01/22/2015 9:42 AM CDT Results Notification Document Contains Addenda Addendum by LEVI MALONEY LPN on 22 January 2015 10:22:40 CDT called with results From: NEDA HOFFMAN MD To: ANDRIA Hoffman Nurse; Sent: 01/22/2015 09:42:25 CDT ! Show up: 01/22/2015 09:42:25 CDT Subject: Results Notification Actions: Notify patient of results Reminder Comments: leave alone asymptomatic bacturia Results: Date Result Type Ind Result Name MBO POS Culture Urine Source: [facility] Crossbar Document Id: [id number] Neda Alegre M.D. - 01/21/2015 9:35 AM CDT Results Notification Document Contains Addenda Addendum by LEVI MALONEY LPN on 21 January 2015 12:48:55 CDT called with results Addendum by NEDA HOFFMAN MD on 21 January 2015 12:35:25 CDT From: NEDA HOFFMAN MD To: ANDRIA Hoffman Nurse; Sent: 01/21/2015 12:35:25 CDT Show up: 01/21/2015 12:35:00 CDT Subject: RE: Results Notification leave alone Addendum by LEVI MALONEY LPN on 21 January 2015 11:42:25 CDT From: LEVI MALONEY LPN ( Neda Hoffman Nurse) To: NEDA HOFFMAN MD; Sent: 01/21/2015 11:42:25 CDT Show up: 01/21/2015 11:42:00 CDT Subject: RE: Results Notification patient called denies any symptoms From: NEDA HOFFMAN MD To: ANDRIA Hoffman Nurse; Sent: 01/21/2015 09:35:00 CDT ! Show up: 01/21/2015 09:35:00 CDT Subject: Results Notification Actions: Notify patient of results Reminder Comments: any symptoms Results: Date Result Type Ind Result Name MBO POS Culture Urine Source: [facility] POWERCHART Document Id: [id number] Miscellaneous - Neda Hoffman M.D. - 01/20/2015 8:51 AM CDT Results Notification Document Contains Addenda Addendum by LEVI MALONEY LPN on 20 January 2015 09:33:33 CDT called with results From: NEDA HOFFMAN MD To: ANDRIA Hoffman Nurse; Sent: 01/20/2015 08:51:25 CDT ! Show up: 01/20/2015 08:51:25 CDT Subject: Results Notification Actions: Notify patient of results Reminder Comments: ok Results: Date Result Name Value Ref Range 01/19/2015 08:40 TSH, Sensitive-Wick 1.4 mIU/L (0.3-4.2 - ) Source: [facility] POWERCHART Document Id: [id number] Electronically signed by Conversion, [facility] Signal Constructor [id number] at 08/22/2016 4:45 AM CDT Miscellaneous - Neda Hoffman M.D. - 01/19/2015 12:55 PM CDT Results Notification Document Contains Addenda Addendum by LEVI MALONEY LPN on 20 January 2015 09:33:47 CDT called with results From: NEDA HOFFMAN MD To: ANDRIA Hoffman Nurse; Sent: 01/19/2015 12:55:05 CDT ! Show up: 01/19/2015 12:55:05 CDT Subject: Results Notification Actions: Notify patient of results Reminder Comments: ok Results: Date Result Name Ind Value Ref Range 01/19/2015 08:40 Sodium Lvl 139 mmol/L (135 - 145) 01/19/2015 08:40 Potassium Lvl 4.4 mmol/L (3.6 - 5.2) 01/19/2015 08:40 Chloride 101 mmol/L (98 - 107) 01/19/2015 08:40 CO2 25 mmol/L (22 - 29) 01/19/2015 08:40 Glucose Lvl (H) 142 mg/dL (70 - 139) 01/19/2015 08:40 Creatinine 0.7 mg/dL (0.6 - 1.1) 01/19/2015 08:40 EGFR (MDRD) >60 mL/min/1.73m2 (>=60 - ) 01/19/2015 08:40 EGFR (MDRD) >60 mL/min/1.73m2 (>=60 - ) 01/19/2015 08:40 BUN 17 mg/dL (6 - 21) 01/19/2015 08:40 Calcium Lvl 9.8 mg/dL (8.8 - 10.3) 01/19/2015 08:40 Uric Acid 5.0 mg/dL (2.7 - 6.1) 01/19/2015 08:40 ALT 15 unit/L (7 - 45) 01/19/2015 08:40 Cholesterol 162 mg/dL ( - <=199) 01/19/2015 08:40 Trig 129 mg/dL ( - <=149) 01/19/2015 08:40 HDL 63 mg/dL (>=50 - ) 01/19/2015 08:40 LDL Calculated 73 mg/dL ( - <=129) 01/19/2015 08:40 Chol/HDL Ratio 2.57 01/19/2015 08:40 LDL/HDL 1 Source: [facility] Crossbar Document Id: [id number] Neda Alegre M.D. - 01/19/2015 9:35 AM CDT Results Notification Document Contains Addenda Addendum by LEVI MALONEY LPN on 20 January 2015 09:33:56 CDT called with results From: NEDA HOFFMAN MD To: ANDRIA Hoffman Nurse; Sent: 01/19/2015 09:35:36 CDT ! Show up: 01/19/2015 09:35:36 CDT Subject: Results Notification Actions: Notify patient of results Reminder Comments: possible PMR, will follow response to prednisone Results: Date Result Name Ind Value Ref Range 01/19/2015 08:40 Sed Rate (H) 67 mm/hr (0 - 29) Source: [facility] Crossbar Document Id: [id number] Neda Alegre M.D. - 01/19/2015 9:17 AM CDT Results Notification Document Contains Addenda Addendum by LEVI MALONEY LPN on 20 January 2015 09:33:23 CDT called with results From: NEDA HOFFMAN MD To: ANDRIA Hoffman Nurse; Sent: 01/19/2015 09:17:29 CDT ! Show up: 01/19/2015 09:17:29 CDT Subject: Results Notification Actions: Notify patient of results Results: Date Result Name Ind Value Ref Range 01/19/2015 08:45 UR WBC (*) 11-20 /HPF (None Seen - ) 01/19/2015 08:45 UR RBC Occ-2 /HPF (None Seen - ) 01/19/2015 08:45 UR Squamous Epi Cells (*) 4-10 /HPF (None Seen - ) 01/19/2015 08:45 UR Bacteria (*) Present (None Seen - ) 01/19/2015 08:45 UR Crystals (*) Present (None Seen - ) Source: [facility] POWERCHART Document Id: [id number] Miscellaneous - Levi Maloney L.P.NRegina - 01/19/2015 7:59 AM CDT Health Assessment Health Assessment Entered On: 01/19/2015 8:00 CDT Performed On: 01/19/2015 7:59 CDT by LEVI MALONEY LPN Health Assessment Complete Health Assessment Complete or Modified : Annual Health Assessment Annual Health Assessment Completed : Yes LEVI MALONEY LPN - 01/19/2015 7:59 CDT Nutrition Nutrition Risk Factors by History Adult : None LEVI MALONEY LPN - 01/19/2015 7:59 CDT Functional Current Daily Living Assistance : None LEVI MALONEY LPN - 01/19/2015 7:59 CDT Dependent Habits Tobacco Use/Currently Using : No Smoking Status : Never smoker LEVI MALONEY LPN - 01/19/2015 7:59 CDT Caffeine Use Grid Caffeine Use : Current Type : Coffee Frequency : Daily LEVI MALONEY LPN - 01/19/2015 7:59 CDT Recreational Drug Use Grid Drug Use : None LEVI MALONEY LPN - 01/19/2015 7:59 CDT Psychosocial Domestic Abuse Concerns : None Behavioral Health Screen/Safety Assmt : No Rastafarian Preference : Unknown LEVI MALONEY LPN - 01/19/2015 7:59 CDT Advance Directive Advanced Directives : No Advance Directive Additional Information : No MALONEYLEVI FREEMAN LALITHA CARRILLO - 01/19/2015 7:59 CDT Educ Needs Learning Style Preference Adult Grid Patient : Verbal explanation, Printed materials Family : Verbal explanation, Printed materials LEVI MALONEY RAScott CARRILLO - 01/19/2015 7:59 CDT Source: [facility] POWERCHART Document Id: [id number] CDT!30 Miscellaneous - Levi Maloney L.PReginaNRegina - 01/19/2015 7:57 AM CDT Adult Clinical Recruiter Intake/History Adult Clinical Recruiter Intake/History Entered On: 01/19/2015 7:59 CDT Performed On: 01/19/2015 7:57 CDT by LEVI MALONEY LPN Intake Chief [...] Pressure Cuff Size : Regular Height : 156 cm(Converted to: 5 ft 1 inch(es), 61 inch(es)) Actual Weight : 69 kg(Converted to: 152 lb 2 oz) Dosing Weight Clinic : 69 kg Clinic BSA : 1.73 Body Mass Index : 28.35 kg/m2 BRENDONSHAHNAZLEVIFREDRICK DOTY LPN - 01/19/2015 7:57 CDT General Info Information Given By : Patient Languages : Serbian Is Patient Female and 13-50 no hysterectomy : No BRENDON LEVI DOTY LPN - 01/19/2015 7:57 CDT Subjective Pain Symptoms : Yes LEVI MALONEY LPN - 01/19/2015 7:57 CDT Pain Scale Pain Scale Verbal 0-10 : Open LEVI MALONEY LPN - 01/19/2015 7:57 CDT Pain Pain Assessment Grid Pain 1 Location : Other: all over LEVI MALONEY LPN - 01/19/2015 7:57 CDT Dependent Habits Tobacco Use/Currently Using : No Smoking Status : Never smoker LEVI MALONEY [facility] - 01/19/2015 7:57 CDT Caffeine Use Grid Caffeine Use : Current Type : Coffee Frequency : Daily LEVI MALONEY [facility] - 01/19/2015 7:57 CDT Recreational Drug Use Grid Drug Use : None LEVI MALONEY [facility] - 01/19/2015 7:57 CDT Source: [facility] Crossbar Document Id: [id number] CDT!40 documented in this encounter Plan of Treatment Not on filedocumented as of this encounter Procedures Procedure Name Priority Date/Time Associated Comments Diagnosis BACTERIAL CULTURE, Routine 01/19/2015 8:47 Result s for this AEROBIC, URINE AM CDT procedure are in the results section. URINALYSIS, MIDSTREAM, Routine 01/19/2015 8:45 Re sults for this WITH CULTURE IF AM CDT procedure ar e in INDICATED the results section. LIPID PANEL, S Routine 01/19/2015 8:40 Results fo r this AM CDT procedure are i n the results section. THYROID FUNCTION Routine 01/19/2015 8:40 Results for this CASCADE, S AM CDT procedure are i n the results section. SEDIMENTATION RATE, B Routine 01/19/2015 8:40 Res ults for this AM CDT procedure are i n the results section. HEMOGLOBIN, B Routine 01/19/2015 8:40 Results for this AM CDT procedure are i n the results section. URIC ACID, S/P Routine 01/19/2015 8:40 Results fo r this AM CDT procedure are i n the results section. ALANINE AMINOTRANSFERASE Routine 01/19/2015 8:40 Results for this (ALT), S/P AM CDT procedure are i n the results section. BASIC METABOLIC PANEL, Routine 01/19/2015 8:40 Re sults for this S/P AM CDT procedure are i n the results section. documented in this encounter Results (ABNORMAL) Bacterial Culture, Aerobic, Urine (01/19/2015 8:47 AM CDT) Analysis Performed At Patho logist Time Signature Bacterial EC <=2 POWERCHART Culture, (POSITIVE) Aerobic, Urine HXPre GNR POWERCHART Comment: >100,000 cfu/mL Gram Negative Rods isolated with mixed bacteria Results are delayed due to additional te sting. HXFinal EC POWERCHART Comment: >100,000 cfu/mL Escherichia coli isolated with mixed bacteria Specimen Anatomical Collection Method Collection Time Receive d Time (Source) Location / / Volume Laterality Urine, First 01/19/2015 8:47 AM 5 8:47 Voided CDT AM CDT Organism Antibiotic Method Susceptibility Escherichia coli [...] (ABNORMAL) Urinalysis, Midstream, with culture if indicated (01/19/2015 8:45 AM CDT) [facility] Method Time Signature HXUr Color Yellow Colorless POWERCHART Clarity Cloudy (A) Clear POWERCHART Glucose Negative Negative POWERCHART MGDL HXBILIRUBIN Negative Negative POWERCHART Ketones, QL(U) Negative Negative POWERCHART MGDL Specific 1.015 POWERCHART [place], POCT, U HXBLOOD Trace (A) Negative POWERCHART pH, POCT, Urine 6.0 <5.0 POWERCHART Protein, Ur, Negative Negative POWERCHART Dip MGDL Urobilinogen 0.2 0.2 MGDL POWERCHART HXNITRITE Positive Negative POWERCHART (A) Leukocyte Moderate Negative POWERCHART Esterase (A) HXUR WBC. 11-20 (A) None Seen POWERCHART HPF HXUR RBC. Occ-2 None Seen POWERCHART HPF HXUR Bacteria, Present (A) None Seen POWERCHART Crystals Present (A) None Seen POWERCHART Comment: amorphous Squamous Epithelial 4-10 (A) None Seen HPF POWERC CIFUENTES Specimen (Source) Anatomical Collection Method Collection Time Re ceived Time Location / / Volume Laterality Urine, First 01/19/2015 8:45 AM Voided CDT Neda Hoffman M.D. LAB URINE ORDERABLES Performing Organization Address City/[facility]/ZIP Code Phon e Number POWERCHART Hemoglobin (01/19/2015 8:40 AM CDT) athologist Signature Hemoglobin 12.1 12.0 - 15.5 POWERCHART GDL Specimen (Source) Anatomical Collection Method Collection Time Re ceived Time Location / / Volume Laterality Blood 01/19/2015 8:40 AM CDT Neda Hoffman M.D. LAB BLOOD ADD-ON Performing Organization Address City/State/ZIP Code Phon e Number POWERCHART (ABNORMAL) Sedimentation Rate (01/19/2015 8:40 AM CDT) [facility] Method Time Signature Sedimentation 67 (H) 0 - 29 POWERCHART Rate, B MMHR Specimen (Source) Anatomical Collection Method Collection Time Re ceived Time Location / / Volume Laterality Blood 01/19/2015 8:40 AM CDT Neda Hoffman M.D. LAB BLOOD ADD-ON Performing Organization Address City/[facility]/ZIP Code Phon e Number POWERCHART Uric Acid (01/19/2015 8:40 AM CDT) P athologist Signature Uric Acid, S 5.0 2.7 - 6.1 POWERCHART MGDL Specimen (Source) Anatomical Collection Method Collection Time Re ceived Time Location / / Volume Laterality Blood 01/19/2015 8:40 AM CDT Neda Hoffman M.D. LAB BLOOD ADD-ON Performing Organization Address City/State/ZIP Code Phon e Number POWERCHART Lipid Panel (01/19/2015 8:40 AM CDT) athologist Signature Calculated LDL 73 <=129 MGDL POWERCHART Comment: 2014 National Lipid [...] for FH and FDB is available mariana [facility]: FH/ADH Genetic Reflex Pined[place] el (test ADHP). Acquired (non-genetic) causes of markedly increased LDL cholesterol include cholestatic liver disease due to the presence of LpX. If a genetic form of hypercholesterolemia is suspected, family studies including biochemical testing fo r lipids (total cholesterol,triglycerides, LDL cholesterol and HDL cholesterol) are recommended. ??Please contact the laboratory at or the on-line test catalog at [facility] for information about how to order these [place] ts or to speak with a genetic counselor. Further interpretation would require clinical information. Total Cholesterol/HDL Ratio 2.57 PO WERCHART Cholesterol, Total 162 <=199 MGDL POWERCHART Comment: 2013 National Lipid Association recommen dations for Total Cholesterol in adults ages 18 and up: Desirable <200 mg/dL Borderline high 200-239 mg/dL High 240 mg/dL 2014 National Lipid Association recommen dations for Total Cholesterol in children ages 2 to 17. Acceptable <170 mg/dL Borderline High 170-199 mg/dL High 200 mg/dL HX HDL 63 >=50 MGDL POWERCHART Comment: 2013 National Lipid Association recommen dations for HDL-C in adults ages 18 and up: Low <40 mg/dL (Men) Low <50 mg/dL (Women) 2014 National Lipid Association recommen dations for HDL-C in children ages 2 to 17. Low <40 mg/dL Borderline Low 40-45 mg/dL Acceptable >45 mg/dL Triglycerides 129 <=149 MGDL POWERCHART Comment: 2013 National Lipid [...] Time Location / / Volume Laterality Blood 01/19/2015 8:40 AM CDT Neda Hoffman M.D. LAB BLOOD ADD-ON Performing Organization Address City/State/ZIP Code Phon e Number POWERCHART Thyroid Function [place] (01/19/2015 8:40 AM CDT) P athologist Signature TSH, Sensitive 1.4 0.3 - 4.2 POWERCHART MIUL Comment: Test Performed by: [place] [address] Extrusion Bender: Tyrell Enriquez II, M.D., Ph.D. Specimen (Source) Anatomical Collection Method Collection Time Re ceived Time Location / / Volume Laterality Blood 01/19/2015 8:40 AM CDT Neda Hoffman M.D. LAB BLOOD ADD-ON Performing Organization Address City/State/ZIP Code Phon e Number POWERCHART ALT (Alanine Aminotransferase) (01/19/2015 8:40 AM CDT) P athologist Signature Alanine 15 7 - 45 POWERCHART Amniotransferas UNITL e, LD Specimen (Source) Anatomical Collection Method Collection Time Re ceived Time Location / / Volume Laterality Blood 01/19/2015 8:40 AM CDT Neda Hoffman M.D. LAB BLOOD ADD-ON Performing Organization Address City/State/ZIP Code Phon e Number POWERCHART (ABNORMAL) BMP (Basic Metabolic Panel) (01/19/2015 8:40 AM CDT) P athologist Signature BUN (Blood Urea 17 6 - 21 POWERCHART Nitrogen), S MGDL Chloride, S 101 98 - 107 POWERCHART MMOLL CO2 Total 25 22 - 29 POWERCHART MMOLL Creatinine 0.7 0.6 - 1.1 POWERCHART MGDL Glucose 142 (H) 70 - 139 POWERCHART MGDL Calcium, Total, 9.8 8.8 - 10.3 POWERCHART S MGDL Sodium, S 139 135 - 145 POWERCHART MMOLL Potassium, S 4.4 3.6 - 5.2 POWERCHART MMOLL HXeGFR (MDRD) >60 >=60 POWERCHART [id number] eGFR >60 >=60 POWERCHART Black/ [id number] [place] Specimen (Source) Anatomical Collection Method Collection Time Re ceived Time Location / / Volume Laterality Blood 01/19/2015 8:40 AM CDT Neda Hoffman M.D. LAB BLOOD ADD-ON Performing Organization Address City/State/ZIP Code Phon e Number POWERCHART documented in this encounter Visit Diagnoses Not on filedocumented in this encounter
--- OUTSIDE RECORDS SUMMARY | 2022-02-28 01:46 | XMS_ITS | Encounter Summary ---
:1940 Author Organization [facility] Address [address] [place] [address] Care Team Providers Name Role Phone Unavailable Primary Care Provider Unavailable Encounter Details Date Type Department Care Team Description 04/24/2013 Hospital Encounter HX [facility] FBHB INTERNMED Regulo Hoffman M.D. [address] [place] [address] 021 (Wo rk) Social History Tobacco Use Types Packs/Day Years Used Date Smoking Tobacco: Never Assessed Sex Assigned at Date Recorded Female 09/25/2017 1:20 PM CDT documented as of this encounter Last Filed Vital Signs Vital Sign Reading Time Taken Comments Blood Pressure 130/74 04/24/2013 3:15 PM RESEARCH INVESTIGATOR Pulse 88 04/24/2013 3:15 PM RESEARCH INVESTIGATOR Temperature - - Respiratory Rate - - Oxygen Saturation - - Inhaled Oxygen Concentration - - Weight 70 kg (154 lb 5.2 oz) 04/24/2013 3:15 PM RESEARCH INVESTIGATOR Height - - Body Mass Index 27.69 03/04/2013 3:51 PM RESEARCH INVESTIGATOR documented in this encounter Medications at Time [...] encounter Progress Notes Neda Hoffman M.D. 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 She is swollen. There is little bit of effusion in the joints. There is no redness, but there is some warmth. She had this since January and nobody can give her injections but me. I told her that if I would be gone and she really needed injections the orthopedists do these. Otherwise, I'm the only one in town who does in primary care. MEDICATIONS Per [facility] EMR. ALLERGIES Per [facility] EMR. SYSTEMS REVIEW Review of systems in all areas except as mentioned above is negative. PREVENTIVE SERVICES: Per [facility] EMR. Handwashing done prior to patient contact. PAST MEDICAL/SURGICAL HISTORY Per [facility] EMR. VITAL SIGNS Per [facility] EMR. PHYSICAL EXAMINATION She has synovitis in both of her wrists. IMPRESSION / REPORT / PLAN She has bad wrist arthritis: We will inject. We prepped with antiseptic and under aseptic conditionsI injected 2 mL of 1% lidocaine and 20 mg of Kenalog into each wrist. There was immediate relief. Band-Aid applied. She will call if there is redness, pain or swelling. Otherwise she will let us know in a week how it is doing. Neda Hoffman M.D./jena Electronically Signed By: NEDA HOFFMAN MD On: 04/25/2013 12:03 PM Source: [facility] MHSDOLBEYNONRADSYS Document Id: [id number] ARCH INVESTIGATOR documented in this encounter Miscellaneous Notes Miscellaneous - Neda Hoffman M.D. - 04/24/2013 4:01 PM CST Ambulatory Patient Summary [address] [id number] Visit Information Name: JACOB ANDINO [facility] Number: [id number] Current Date: 04/24/2013 16:01:28 Physicians Attending Provider: NEDA HOFFMAN MD Primary [...] day multivitamin (multivitamin) Oral, once a day Stop Taking the Following Medications: Medication list as of 04-24-13 16:01 Attention: If you have any medications at [...] appointment detail needed. Your Goals/Additional instructions: Source: [facility] POWERCHART Document Id: [id number] ARCH INVESTIGATOR Miscellaneous - Neda Hoffman M.D. - 04/24/2013 4:01 PM CST Ambulatory Depart Summary [address] [id number] Visit Information Name: JACOB ANDINO [facility] Number: [id number] Visit Date: 04/24/2013 16:01:26 Attending Provider: NEDA HOFFMAN MD Primary Care [...] day multivitamin (multivitamin) Oral, once a day Stop Taking the Following Medications: Medication list as of 04-24-13 16:01 Attention: If you have any medications at home that are not on this list, DO NOT take them until youcontact your provider for clarification. Give a copy of your medication list to your primary care provider. Update your medication list any time medications or doses are changed and carry your medication list at all times in case of emergency. Additional Information: Source: [facility] POWERCHART Document Id: [id number] ARCH INVESTIGATOR Miscellaneous - Levi Maloney L.P.N. - 04/24/2013 3:15 PM CST Adult Hot Blast Worker Intake/History Adult Hot Blast Worker Intake/History Entered On: 04/24/2013 15:19 RESEARCH INVESTIGATOR Performed On: 04/24/2013 15:15 RESEARCH INVESTIGATOR by LEVI MALOENY LPN Intake Chief Complaint : pain in both wrist Temperature Core : 37 DegC(Converted to: 98.6 DegF) Peripheral Pulse Rate : 88 /min Heart Rhythm : Regular Systolic Blood Pressure : 130 mmHg Diastolic Blood Pressure : 74 mmHg NIBP Mean : 93 mmHg BP Location : Left upper extremity Blood Pressure Cuff Size : Regular Actual Weight : 70 kg(Converted to: 154 lb 5 oz) Weight Source : Standing scale Dosing Weight Clinic : 70 kg LEVI MALONEY LPN - 04/24/2013 15:15 RESEARCH INVESTIGATOR General Info Information Given By : Patient Languages : Uzbek LEVI MALONEY [facility] 04/24/2013 15:15 RESEARCH INVESTIGATOR Subjective Pain Symptoms : Yes LEVI MALONEY HEAD STILL OPERATOR 04/24/2013 15:15 RESEARCH INVESTIGATOR Pain Pain Assessment Grid Pain 1 Location : Wrist Laterality : Bilateral Intensity : 8 Time Pattern : Acute Onset : Gradual Quality : Aching LEVI MALONEY [facility] 04/24/2013 15:15 RESEARCH INVESTIGATOR Dependent Habits Tobacco Use/Currently Using : No Smoking Status : Never smoker LEVI MALONEY [facility] 04/24/2013 15:15 RESEARCH INVESTIGATOR Tobacco Use Grid Last Use : never LEVI MALONEY LAL[facility] 04/24/2013 15:15 RESEARCH INVESTIGATOR Caffeine Use Grid Caffeine Use : Current Type : Coffee Frequency : Daily LEVI MALONEY [facility] 04/24/2013 15:15 RESEARCH INVESTIGATOR Recreational Drug Use Grid Drug Use : None LEVI MALONEY LAL[facility] 04/24/2013 15:15 RESEARCH INVESTIGATOR Source: [facility] POWERCHART Document Id: [id number] RESEARCH INVESTIGATOR!42 ARCH INVESTIGATOR documented in this encounter Plan of Treatment Not on filedocumented as of this encounter Visit Diagnoses Not on filedocumented in this encounter
--- OUTSIDE RECORDS SUMMARY | 2022-02-28 01:46 | XMS_ITS | Encounter Summary ---
:[address] [facility] Address [address] [place] [address] Care Team Providers Name Role Phone Unavailable Primary Care Provider Unavailable Encounter Details Date Type Department Care Team Description 06/25/2014 Hospital Encounter HX [facility] FBHB INTERNMED Regulo Hoffman M.D. [address] [place] [address] 021 (Wo rk) Social History Tobacco Use Types Packs/Day Years Used Date Smoking Tobacco: Never Assessed Sex Assigned at Date Recorded Female 09/25/2017 1:20 PM CDT documented as of this encounter Last Filed Vital Signs Vital Sign Reading Time Taken Comments Blood Pressure 132/70 06/25/2014 2:40 PM CDT Pulse 80 06/25/2014 2:40 PM CDT Temperature - - Respiratory Rate 16 06/25/2014 2:40 PM CDT Oxygen Saturation - - Inhaled Oxygen Concentration - - Weight 68 kg (149 lb 14.6 oz) 06/25/2014 2:40 PM CDT Height - - Body [...] encounter Progress Notes Neda Hoffman M.D. - 06/25/2014 2:36 PM CDT [id number] Jacob comes today with tenderness at the base of her thumbs. She has very bad carpometacarpal joint arthritis. We periodically inject. She is wondering if she could have that and probably we can do such today. MEDICATIONS Per [facility] EMR. ALLERGIES Per [facility] EMR. SYSTEMS REVIEW Review of systems in all areas except as mentioned above is negative. PREVENTIVE SERVICES: Per [facility] EMR. Handwashing done prior to patient contact. PAST MEDICAL/SURGICAL HISTORY Per [facility] EMR. VITAL SIGNS Per [facility] EMR. PHYSICAL EXAMINATION She has got point tenderness of the carpometacarpal joint bilaterally. There is no warmth or redness. IMPRESSION/REPORT/PLAN She has very formidable carpometacarpal joint arthritis. We will do bilateral injection. Following universal protocol, we prepped with Betadine and under aseptic conditions, injected 1 mL of 1% lidocaine and 10 mg of triamcinolone into each joint. We did both hands Band-Aid applied. No complications. Call if redness, pain, or swelling. She did have immediate relief. Neda Hoffman M.D./kimmie Electronically Signed By: NEDA HOFFMAN MD On: 06/26/2014 07:20 AM Source: [facility] MHSDOLBEYNONRADSYS Document Id: [id number] documented in this encounter Miscellaneous Notes Telephone Encounter - Conversion, Historical Provider Ser - 10/29/2014 8:14 AM CDT *Phone Message/dr gibson Document Contains Addenda Addendum by YOANA DUMONT LPN on 29 October 2014 09:07:24 CDT Patient having increased pain/numbness in her lower leg behind the knee and down. Advised her she needs to be seen today. Advised to go to the ER. From: NAOMI LLAMAS ( [place] Finisher Operator) To: ANDRIA Gibson Nurse; Sent: 10/29/2014 08:14:40 CDT Subject: *Phone Message/dr gibson Caller is: ( x ) Patient ( ) Mother ( ) Father ( ) Spouse ( ) Daughter ( ) Son ( ) Pharmacy ( ) Other: Physician: Patient MRN #: Reason for Call: S seen in [facility] ER 10/25/2014 B leg pain, can hardly walk A wanting to be seen today, Dr Neda Hoffman out R please call [phone] Message: Advice/Action: Source used: ( ) Verbalizes [...] back cell phone number ( ) Source: [facility] Sourcery Document Id: [id number] Telephone Encounter - Conversion, Historical Provider Ser - 07/02/2014 4:02 PM CDT *Phone Message/Dilan Hoffman Document Contains Addenda Addendum by LEVI MALONEY LPN on 02 July 2014 16:08:32 CDT From: LEVI MALONEY LPN ( Neda Hoffman Nurse) To: NEDA HOFFMAN MD; Sent: 07/02/2014 16:08:32 CDT Subject: FW: *Phone Message/Dilan Hoffman From: MYAH PERALES ( Pediatric Nurse) To: ANDRIA Hoffman Nurse; Sent: 07/02/2014 16:02:28 CDT Subject: *Phone Message/Dilan Hoffman Caller is: (x ) Patient ( ) Mother ( ) Father ( ) Spouse ( ) Daughter ( ) Son ( ) Pharmacy ( ) Other: Physician: Patient MRN #: Reason for Call: S: Jacob is doing okay since her injections...a big improvement since last week. B: A: R: If questions, you can reach Jacob at . Message: Advice/Action: Source used: ( ) Verbalizes [...] back cell phone number ( ) Source: [facility] Sourcery Document Id: [id number] Miscellaneous - Neda Hoffman M.D. - 06/25/2014 2:58 PM CDT Ambulatory Patient Summary [address] [id number] Visit Information Name: JACOB ANDINO 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 What Is Tendonitis of the Foot? When you use a set of muscles too much, youre likely to strain the tendons (soft tissues) that connect those muscles to your bones. At first, pain or swelling may come and go quickly. But if you do toomuch too soon, your muscles may overtire again. The strain may cause a tendons outer covering to swell or small fibers in a tendon to pull apart. If you keep pushing your muscles, damage to the tendonsadds up and tendonitis develops. Over time, pain and swelling may limit your activities. But with your doctors help, tendonitis can be controlled. Both your symptoms and your risk of future problems can be reduced. The Back of Your Foot The Achilles tendon connects the calf muscle to the heel bone. If tendonitis occurs here, you may feel pain when your foot touches down or when your heel lifts off the ground. The Front of Your Foot The anterior tibial tendon helps control the front of your foot when it meets the ground. If this tendon is strained, you may feel pain when you go down stairs or walk or run on hills. The Inside of Your Foot The posterior tibial tendon runs along the inside of the ankle and foot. Ifthis tendon is strained, your foot may hurt when it moves forward to push off the ground. Or you mayfeel pain when your heel shifts from side to side. The Outside of Your Foot The peroneal tendon wraps across the bottom of your foot, from the outside to the inside. Tendonitis here may cause pain whenyou stand or push off the ground. ?? [id number] [facility], [address] [place] [address], [place] [address]. All rights reserved. This information is not intended as a substitute for professional medical care. Always follow your healthcare professional's instructions. Your Goals/Additional instructions: This document has images extracted. Please consider using [employer] for all your patient education needs. Source: [facility] POWERCHART Document Id: [id number] Miscellaneous - Neda Hoffman M.D. - 06/25/2014 2:58 PM CDT Ambulatory Discharge Medication List [address] [id number] Visit Information Name: JACOB ANDINO [facility] Number: [id number] Visit Date: 06/25/2014 14:58:19 Attending Provider: NEDA HOFFMAN MD Primary Care [...] the Following Medications: Medication list as of 06-25-14 14:58 Attention: If you have any medications at [...] Electronically Signed By: NEDA HOFFMAN MD Signed On:25-JUN-2014 14:57:32 Additional Information: Source: [facility] POWERCHART Document Id: [id number] Miscellaneous - Levi Maloney L.P.N. 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 Intake/History Adult Matrix Supervisor Intake/History Entered On: 06/25/2014 14:43 CDT Performed On: 06/25/2014 14:40 CDT by LEVI MALONEY LPN Intake Chief Complaint : wants wrist injections Temperature Core : 37 DegC(Converted to: 98.6 DegF) Peripheral Pulse Rate : 80 /min Respiratory Rate : 16 /min Heart Rhythm : Regular Systolic Blood Pressure : 132 mmHg Diastolic Blood Pressure : 70 mmHg NIBP Mean : 91 mmHg BP Location : Left upper extremity Blood Pressure Cuff Size : Regular Actual Weight : 68 kg(Converted to: 149 lb 15 oz) Weight Source : Standing scale Dosing Weight Clinic : 68 kg LEVI MALONEY LPN - 06/25/2014 14:40 CDT General Info Information Given By : Patient Languages : Macedonian Is Patient Female and 13-50 no hysterectomy : No LEVI MALONEY LPN - 06/25/2014 14:40 CDT Subjective Pain Symptoms : No LEVI MALONEY LPN - 06/25/2014 14:40 CDT Dependent Habits Tobacco Use/Currently Using : No Smoking Status : Never smoker LEVI MALONEY LPN - 06/25/2014 14:40 CDT Tobacco Use Grid Last Use : never LEVI MALONEY LPN - 06/25/2014 14:40 CDT Caffeine Use Grid Caffeine Use : Current Type : Coffee Frequency : Daily LEVI MALONEY LPN - 06/25/2014 14:40 CDT Recreational Drug Use Grid Drug Use : None LEVI MALONEY LPN - 06/25/2014 14:40 CDT ID Screen Travel Within Last 21 Days : No Contact with someone with Ebola : No LEVI MALONEY LPN - 06/25/2014 14:40 CDT Source: [facility] Sourcery Document Id: [id number] CDT!38 documented in this encounter Plan of Treatment Not on filedocumented as of this encounter Visit Diagnoses Not on filedocumented in this encounter
--- OUTSIDE RECORDS SUMMARY | 2022-02-28 01:46 | XMS_ITS | Encounter Summary ---
:1940 Author Organization [facility] Address [address] [place] [address] Care Team Providers Name Role Phone Unavailable Primary Care Provider Unavailable Encounter Details Date Type Department Care Team Description 06/18/2013 Hospital Encounter HX [facility] FBHB INTERNMED Regulo Hoffman M.D. [address] [place] [address] 021 (Wo rk) Social History Tobacco Use Types Packs/Day Years Used Date Smoking Tobacco: Never Assessed Sex Assigned at Date Recorded Female 09/25/2017 1:20 PM CDT documented as of this encounter Last Filed Vital Signs Vital Sign Reading Time Taken Comments Blood Pressure 138/74 06/18/2013 3:44 PM CDT Pulse 68 06/18/2013 3:41 PM CDT Temperature - - Respiratory Rate - - Oxygen Saturation - - Inhaled Oxygen Concentration - - Weight 72 kg (158 lb 11.7 oz) 06/18/2013 3:41 PM CDT Height - - Body Mass Index 28.48 03/04/2013 3:51 PM ADMINISTRATION CLERK documented in this encounter Medications at Time [...] encounter Progress Notes Neda Hoffman M.D. - 06/18/2013 3:34 PM CDT IM-LE Document Contains Addenda REVISION HISTORY 06/29/2013 at 12:54 PM: Addendum added per Dr. Neda Hoffman / analilia CHIEF COMPLAINT/REASON FOR VISIT Jacob presents today with pain in her left wrist. HISTORY OF PRESENT ILLNESS This has been a problem for her before and we believe it is a form of de Quervain's tenosynovitis. When I examine the wrist she is tender over the sheath of the abductor pollicis longus and the extensor pollicis brevis. She is also a little bit tender over the wrist itself. When I have her thumb extended and resist against that in extension it is also tender. MEDICATIONS Per [facility] EMR. ALLERGIES Per [facility] EMR. SYSTEMS REVIEW Review of systems in all areas except as mentioned above is negative. PREVENTIVE SERVICES: Per [facility] EMR. Handwashing done prior to patient contact. PAST MEDICAL/SURGICAL HISTORY Per [facility] EMR. VITAL SIGNS Per [facility] EMR. PHYSICAL EXAMINATION Tenderness over the sheath of the abductor pollicis longus and extensor brevis with pain on resistedextension. IMPRESSION/REPORT/PLAN This is de Quervain's tenosynovitis. This is a difficult case so we will try corticosteroid injection. We injected 2 mL of 1% lidocaine and 10 mg of Decadron with no complication. She had some immediate relief. Band-Aid applied. She will call if there is pain or tenderness post injection. ADDENDUM: She had pain in the right wrist as well. Joint injection was performed. Following universal protocol, we prepped with chlorhexidine, and under aseptic conditions, injected 2 mL of 1% lidocaine and 10 mg of Kenalog into her right wrist. There were no complications. Call if redness, pain or swe lling. Neda Hoffman M.D./kimmie Electronically Signed By: NEDA HOFFMAN MD On: 06/27/2013 07:34 AM Neda Hoffman M.D./analilia Electronically Signed By: NEDA HOFFMAN MD On: 06/27/2013 07:34 AM Co-Signed By: NEDA HOFFMAN MD On: 06/29/2013 02:56 PM Source: [facility] MHSDOLBEYNONRADSYS Document Id: [id number] documented in this encounter Miscellaneous Notes Miscellaneous - Neda Hoffman M.D. - 06/18/2013 4:08 PM CDT Ambulatory Patient Summary [address] [id number] Visit Information Name: JACOB ANDINO [facility] Number: [id number] Current Date: 06/18/2013 16:08:56 Physicians Attending Provider: NEDA HOFFMAN MD Primary [...] the Following Medications: Medication list as of 06-18-13 16:08 Attention: If you have any medications [...] appointment detail needed. Your Goals/Additional instructions: Source: [facility] ZigfuCHART Document Id: [id number] Miscellaneous - Neda Hoffman M.D. - 06/18/2013 4:08 PM CDT Ambulatory Discharge Medication List [address] [id number] Visit Information Name: JACOB ANDINO [facility] Number: [id number] Visit Date: 06/18/2013 16:08:55 Attending Provider: NEDA HOFFMAN MD Primary Care Provider: NEDA HOFFMAN MD BHARATHJACOB KAMRAN has been given the following list [...] the Following Medications: Medication list as of 06-18-13 16:08 Attention: If you have any medications at home that are not on this list, DO NOT take them until youcontact your provider for clarification. Give a copy of your medication list to your primary care provider. Update your medication list any time medications or doses are changed and carry your medication list at all times in case of emergency. Additional Information: Source: [facility] ZigfuCHART Document Id: [id number] Miscellaneous - Levi Maloney L.P.NRegina - 06/18/2013 3:44 PM CDT Ambulatory Vitals Height Weight Ambulatory Vitals Height Weight Entered On: 06/18/2013 15:44 CDT Performed On: 06/18/2013 15:44 CDT by LEIV MALONEY LPN Vitals/Ht/Wt Systolic Blood Pressure : 138 mmHg Diastolic Blood Pressure : 74 mmHg NIBP Mean : 95 mmHg BP Location : Left upper extremity Blood Pressure Cuff Size : Regular LEVI MALONEY LPN - 06/18/2013 15:44 CDT [facility] Document Id: [id number] CDT!7 Miscellaneous - Levi Maloney L.P.NRegina - 06/18/2013 3:41 PM CDT Adult Process Technician Intake/History Adult Process Technician Intake/History Entered On: 06/18/2013 15:43 CDT Performed On: 06/18/2013 15:41 CDT by LEVI MALONEY LPN Intake Chief Complaint : pain in right wrist Temperature Core : 36.8 DegC(Converted to: 98.2 DegF) Peripheral Pulse Rate : 68 /min Heart Rhythm : Regular Systolic Blood Pressure : 144 mmHg (HI) Diastolic Blood Pressure : 78 mmHg NIBP Mean : 100 mmHg BP Location : Left upper extremity Blood Pressure Cuff Size : Regular Actual Weight : 72 kg(Converted to: 158 lb 12 oz) Weight Source : Standing scale Dosing Weight Clinic : 72 kg LEVI MALONEY LPN - 06/18/2013 15:41 CDT General Info Information Given By : Patient Languages : Tongan LEVI MALONEY LPN - 06/18/2013 15:41 CDT Subjective Pain Symptoms : Yes LEVI MALONEY LPN - 06/18/2013 15:41 CDT Pain Pain Assessment Grid Pain 1 Location : Wrist Laterality : Right Intensity : 9 Time Pattern : Chronic MALONEY, LEVI DOTY UNDERCOAT SPRAYER - 06/18/2013 15:41 CDT Dependent Habits Tobacco Use/Currently Using : No Smoking Status : Never smoker MALONEYLEVI VALLE UNDERCOAT SPRAYER - 06/18/2013 15:41 CDT Tobacco Use Grid Last Use : never MALONEY LEVI DOTY UNDERCOAT SPRAYER - 06/18/2013 15:41 CDT Caffeine Use Grid Caffeine Use : Current Type : Coffee Frequency : Daily LEVI MALONEY LPN - 06/18/2013 15:41 CDT Recreational Drug Use Grid Drug Use : None LEVI MALONEY UNDERCOAT SPRAYER - 06/18/2013 15:41 CDT Source: [employer] Document Id: [id number] CDT!40 documented in this encounter Plan of Treatment Not on filedocumented as of this encounter Visit Diagnoses Not on filedocumented in this encounter
--- OUTSIDE RECORDS SUMMARY | 2022-02-28 01:47 | XMS_ITS | Encounter Summary ---
:1940 Author Organization [facility] Address [address] [place] [address] Care Team Providers Name Role Phone Unavailable Primary Care Provider Unavailable Encounter Details Date Type Department Care Team Description 08/27/2012 Hospital Encounter HX [facility] INTERNMED Regulo Hoffman M.D. [address] [place] [address] 021 (Wo rk) Social History Tobacco Use Types Packs/Day Years Used Date Smoking Tobacco: Never Assessed Sex Assigned at Date Recorded Female 09/25/2017 1:20 PM CDT documented as of this encounter Last Filed Vital Signs Vital Sign Reading Time Taken Comments Blood Pressure 132/74 08/27/2012 8:21 AM CDT Pulse 64 08/27/2012 8:21 AM CDT Temperature - - Respiratory Rate 16 08/27/2012 8:21 AM CDT Oxygen Saturation - - Inhaled Oxygen Concentration - - Weight 71 kg (156 lb 8.4 oz) 08/27/2012 8:21 AM CDT Height 157 cm (5' 1.81) 08/27/2012 8:21 AM CDT Body Mass Index 28.8 08/27/2012 8:21 AM CDT documented in this [...] encounter H&P Notes Neda Hoffman M.D. - 08/27/2012 8:13 AM CDT [id number] CHIEF COMPLAINT/REASON FOR VISIT Preventive medicine visit with acute problems. HISTORY OF PRESENT ILLNESS Acute problems 1. Hypertension. Blood pressure control is excellent. We will check her electrolytes. She has no evidence of target organ damage or clinical cardiovascular disease. 2. Left shoulder pain. The patient has had left shoulder pain for almost six months. She has it getting some better but it just will not go away. It hurts to bring her arm up in an arc of abduction. I suspect it is subacromial bursitis. We will examine. 3. Sciatica. She has had some return of sciatica. It is very minor. She will continue doing her exercises and call later in the week. If her shoulder does not respond to injection and if her sciatica is getting worse, I will order physical therapy for her at [facility]. 4. Dyslipidemia. The patient has had elevated cholesterols in the past. She has been working hard onher diet and wants to have her cholesterols rechecked to see if she has brought them down. 5. Malaise and fatigue. She is experiencing some malaise and fatigue. She is not very concerned about this. She feels it is probably constitutional or related to aging, but she wants to be sure there are no metabolic abnormalities. CURRENT MEDICATIONS Post-visit Medication Reconciliation Per [facility] in [place] electronic medical record. ALLERGIES Per [facility] electronic medical record. SYSTEMS REVIEW Review of systems in all areas is asked about and is negative, except as mentioned above. PAST MEDICAL/SURGICAL HISTORY 1. Hypertension. 2. Dyslipidemia, diet controlled. 3. Severe sciatica with response to physical therapy. 4. Seborrheic dermatitis in the ears requiring cream occasionally. 5. Venous stasis with peripheral dermatitis in the lower extremities. 6. Status post total abdominal hysterectomy/bilateral salpingo-oophorectomy for nonmalignant reasonswith associated bladder repair 19 to 20 years ago. 7. Status post two right breast biopsies in 1983, both benign. 8. Status post bilateral cataract surgery with lens implant. 9. Status post cholecystectomy. PREVENTIVE SERVICES Per [facility] electronic medical record. Handwashing done prior to patient contact. SOCIAL HISTORY Her about 17 years ago from prostate cancer. She does not smoke or drink alcohol, although she had heavy secondhand smoke exposure in the past, but she does not have it now. FAMILY HISTORY There is a family history of coronary artery disease with her brother having a myocardial infarctionin his 40s. She has two sons, one of whom had a stroke due to a blood clot. She has no first degree relative with a history of colorectal, breast, cervical, ovarian or uterine cancer. VITAL SIGNS Per [facility] electronic medical record. PHYSICAL EXAM SKIN: Inspection of the skin and subcutaneous tissue has nothing inconsistent with age. EYES: Conjunctiva and lids are normal. Pupils are equal, round, reactive to light and accommodation.Extraocular movements normal. Sclera nonicteric. Fundi sharp discs bilaterally without diabetic or hypertensive changes. ENT: Tympanic membranes okay on both sides. Hearing grossly normal to scratch test. Nasal mucosa without erythema or congestion. No sinus tenderness. Mouth without erythema or exudate, no leuko or erythroplakia. Dental hygiene is good. NECK: Neck is supple. Carotid upstrokes +2 bilaterally. No carotid bruits. LYMPH NODES: No adenopathy. THYROID: No thyromegaly. BREASTS: Palpation [...] significant murmur, no gallop. LUNGS: Lung mitchell clear to auscultation and percussion with normal respiratory rate and effort. ABDOMEN: Abdomen is soft and nondistended. No organomegaly. No focal mass or tenderness. The abdominal aorta is not enlarged to palpation. There are no bruits over the abdomen. There are no hernias. There is no costovertebral angle tenderness. RECTUM: Rectal exam deferred at the patient's request. GENITALIA: exam deferred at the patient's request. SPINE: No cervical, thoracic or lumbar tenderness to deep palpation. JOINTS: Examination of her left shoulder shows she has pain when she raises the arm up in an arc of abduction between 70 and 120 degrees. There is tenderness over the subacromial bursa area. EXTREMITIES: Warm, dry and noncyanotic without clubbing or peripheral edema. GAIT: Gait is normal. NEURO: Cranial nerves II-XII are grossly intact. Reflexes in the upper and lower extremities are bilaterally symmetric. Toes are down-going. There is no dysmetria. Light touch testing in the lower extremities is normal. IMPRESSION/REPORT/PLAN ACTIVE PROBLEMS 1. Active subacromial bursitis on the left. We will try a soft tissue injection. PROCEDURE We prepped with alcohol and under aseptic conditions I did a soft tissue injection injecting 3 mL of1% lidocaine and 8 mg of Decadron into the region of the left subacromial bursa. No complications. Band-Aid applied. She is to call us immediately if she notes redness, pain or swelling. 2. Sciatica. This is minor at the moment but if it is getting worse I want the patient to call us later in the week and I will get physical therapy going for both perhaps her left shoulder and her sciatica. 3. Dyslipidemia, diet controlled. Check lipid panel. 4. Hypertension, excellent control. No evidence of target organ damage or clinical cardiovascular disease. Continue current medications. Check electrolytes. 5. Malaise and fatigue, probably constitutional. Nothing clearly found on examination. Check laboratories to rule out metabolic problems. INACTIVE PROBLEMS Please see past medical history. HEALTH MAINTENANCE CONCERNS Instructed to have a complete physical examination once a year, see an welding instructor or business team leader once a year for glaucoma screening, and see the dentist at least once or twice a year. Instructed to wear seatbelts when in a motor vehicle. Questioned about symptoms of domestic abuse and there are none. She will have mammograms performed once a year and she will do breast self- examinations once a month. She was instructed in the principles of breast self- examination and demonstrated competency in the office. The patient was recommended to drink at least six glasses of plain water each day, have five servings of fruits and vegetables each day, and get good aerobic exercise. I also recommended shetake a generic multivitamin without iron once a day. With tests done today she is up to date on everything. She is not due for a colonoscopy until 10/2017. She is not due for a mammogram until 11/2012. STUDIES DONE TODAY ALT, basic metabolic panel, hemoglobin, lipid panel, TSH, and urinalysis with microscopy. We will call her with the results. Neda Hoffman M.D./shelley Electronically Signed By: NEDA HOFFMAN MD On: 08/27/2012 03:54 PM Source: [facility] [email or web address] Document Id: [id number] documented in this encounter Miscellaneous Notes Miscellaneous - Conversion, Historical Provider Ser - 08/28/2012 11:37 AM CDT General Message Document Contains Addenda Addendum by NEDA HOFFMAN MD on 28 August 2012 12:39:33 CDT From: NEDA HOFFMAN MD To: PARMINDER BRENNER; Sent: 08/28/2012 12:39:33 CDT Subject: RE: General Message ok, I'll eliminate it From: PARMINDER BRENNER To: NEDA HOFFMAN MD; Sent: 08/28/2012 11:37:48 CDT Subject: General Message Received message from [facility] regarding Chlorthalidone 25mg. Pharmacy states the last refill patient requested was 08/19/10. Patient has been taking Furosemide 20mg daily but not along with the Chlorthalidone. Source: [facility] POWERCHART Document Id: [id number] Miscellaneous - Neda Hoffman M.D. - 08/28/2012 7:39 AM CDT Results Notification Document Contains Addenda Addendum by LEVI MALONEY LPN on 29 August 2012 09:43:18 CDT called with results From: NEDA HOFFMAN MD To: LEVI MALONEY LPN; Sent: 08/28/2012 07:39:00 CDT ! Show up: 08/28/2012 12:39:00 [place] Subject: Results Notification Actions: Notify patient of results Reminder Comments: ok Results: Date Result Name Value Ref Range 08/27/2012 09:00 TSH, Sensitive-Wick 1.6 mIU/L (0.3-5.0 - ) Source: [facility] POWERCHART Document Id: [id number] Electronically signed by Conversion, [facility] Heavy Truck Driver [id number] at 08/23/2016 10:59 PM CDT Miscellaneous - Neda Hoffman M.D. - 08/27/2012 9:47 AM CDT Results Notification Document Contains Addenda Addendum by LEVI MALONEY LPN on 29 August 2012 09:43:32 CDT called with results From: NEDA HOFFMAN MD To: LEVI MALONEY LPN; Sent: 08/27/2012 09:47:53 CDT ! Show up: 08/27/2012 14:47:53 [facility] Subject: Results Notification Actions: Notify patient of results Reminder Comments: watch her weight as sugar creeping up Results: Date Result Name Ind Value Ref Range 08/27/2012 09:00 Sodium Lvl 142 mmol/L (135 - 145) 08/27/2012 09:00 Potassium Lvl 4.0 mmol/L (3.5 - 4.8) 08/27/2012 09:00 Chloride 103 mmol/L (100 - 108) 08/27/2012 09:00 CO2 29 mmol/L (22 - 29) 08/27/2012 09:00 Glucose Fasting (H) 118 mg/dL (70 - 99) 08/27/2012 09:00 Creatinine 0.9 mg/dL (0.7 - 1.2) 08/27/2012 09:00 EGFR (MDRD) >60 mL/min 08/27/2012 09:00 EGFR (MDRD) >60 mL/min 08/27/2012 09:00 BUN (H) 22 mg/dL (6 - 20) 08/27/2012 09:00 Calcium Lvl 9.3 mg/dL (8.5 - 10.5) 08/27/2012 09:00 ALT 30 unit/L (9 - 52) 08/27/2012 09:00 Cholesterol 161 mg/dL (0 - 200) 08/27/2012 09:00 Trig 103 mg/dL (0 - 150) 08/27/2012 09:00 HDL (H) 61.0 mg/dL (40.0 - 60.0) 08/27/2012 09:00 LDL Calculated 79 mg/dL (0 - 100) Source: [facility] POWERCHART Document Id: [id number] Electronically signed by Conversion, [facility] Heavy Truck Driver [id number] at 08/23/2016 10:59 PM CDT Miscellaneous - Neda Hoffman M.D. - 08/27/2012 9:16 AM CDT Results Notification Document Contains Addenda Addendum by LEVI MALONEY LPN on 29 August 2012 09:44:34 CDT called with results no urinary symptoms From: NEDA HOFFMAN MD To: LEVI MALONEY LPN; Sent: 08/27/2012 09:16:32 CDT ! Show up: 08/27/2012 14:16:32 [facility] Subject: Results Notification Actions: Notify patient of results Reminder Comments: any symptoms Results: Date Result Name Ind Value Ref Range 08/27/2012 09:11 UA Color Yellow 08/27/2012 09:11 UA Spec Grav 1.015 (1.020 - ) 08/27/2012 09:11 UA pH 6.0 (5.0 - 8.0) 08/27/2012 09:11 UA Protein (*) Trace (Negative - ) 08/27/2012 09:11 UA Glucose Negative (Negative - ) 08/27/2012 09:11 UA Ketones Negative (Negative - ) 08/27/2012 09:11 UA Bili Negative (Negative - ) 08/27/2012 09:11 UA Urobilinogen 0.2 (0.2 - 1.0) 08/27/2012 09:11 UA Blood (*) Small (Negative - ) 08/27/2012 09:11 UA Nitrite (*) Positive (Negative - ) 08/27/2012 09:11 UA Leuk Est (*) Large (Negative - ) 08/27/2012 09:11 UA Appear (*) Cloudy 08/27/2012 09:00 Hgb 13.4 g/dL (12.0 - 15.5) Source: [facility] [email or web address] Document Id: [id number] Electronically signed by Conversion, [facility] Heavy Truck Driver [id number] at 08/23/2016 10:59 PM CDT Miscellaneous - Levi Maloney L.P.N. - 08/27/2012 8:24 AM CDT Health Assessment Health Assessment Entered On: 08/27/2012 8:25 CDT Performed On: 08/27/2012 8:24 CDT by LEVI MALONEY LPN Health Assessment Complete Health Assessment Complete or Modified : Annual Health Assessment Annual Health Assessment Completed : Yes LEVI MALONEY LPN - 08/27/2012 8:24 CDT Nutrition Nutrition Risk Factors by History Adult : None LEVI MALONEY LPN - 08/27/2012 8:24 CDT Functional Current Daily Living Assistance : None LEVI MALONEY LPN - 08/27/2012 8:24 CDT Dependent Habits Tobacco Use/Currently Using : No Smoking Status : Never smoker LEVI MALONEY LPN - 08/27/2012 8:24 CDT Caffeine Use Grid Caffeine Use : Current Type : Coffee Frequency : Daily LEVI MALONEY LPN - 08/27/2012 8:24 CDT Recreational Drug Use Grid Drug Use : None LEVI MALONEY LPN - 08/27/2012 8:24 CDT Psychosocial Domestic Abuse Concerns : None LEVI MALONEY LPN - 08/27/2012 8:24 CDT Advance Directive Advanced Directives : No LEVI MALONEY LPN - 08/27/2012 8:24 CDT Educ Needs Learning Style Preference Adult Grid Patient : Verbal explanation, Printed materials Family : Verbal explanation, Printed materials LEVI MALONEY LPN - 08/27/2012 8:24 CDT Source: [facility] Online DealerCHART Document Id: [id number] CDT!27 Neda Alegre M.D. - 08/27/2012 8:22 AM CDT Ambulatory Patient Summary [address] [address] Visit Information Name: JACOB ANDINO [facility] Number: [id number] Current Date: 08/27/2012 08:22:10 Physicians Attending Provider: NEDA HOFFMAN MD Primary Care Provider: NEDA HOFFMAN MD Your Medications Here is a list of your medications. It is important to take your medications as directed. Use a pillbox or chart to help remind you to take your medications. Please let your doctor or nurse know if you have problems taking your medications. Medication/Strength Dose Route Frequency Indications/Special Instructions/Comments desonide topical (desonide 0.05% topical cream) 1 ciara Topical two times a day furosemide (furosemide 20 mg oral tablet) 20 mg Oral once a day chlorthalidone (chlorthalidone 25 mg oral tablet) 25 mg Oral once a day calcium-vitamin D (Calcium 600+D) Oral [...] No Appointments found Your Goals/Additional instructions: Source: [facility] POWERCHART Document Id: [id number] Neda Cotto M.D. - 08/27/2012 8:22 AM CDT Ambulatory Depart Summary [address] [place] [address] Visit Information Name: JACOB ANDINO [facility] Number: [id number] Visit Date: 08/27/2012 08:22:09 Attending Provider: NEDA HOFFMAN MD Primary Care [...] your medications. Medication/Strength Dose Route Frequency Indications/Special Instructions/Comments desonide topical (desonide 0.05% topical cream) 1 ciara Topical two times a day furosemide (furosemide 20 mg oral tablet) 20 mg Oral once a day chlorthalidone (chlorthalidone 25 mg oral tablet) 25 mg Oral once a day calcium-vitamin D (Calcium 600+D) Oral once a day multivitamin (multivitamin) Oral once a day aspirin (aspirin 81 mg oral tablet) 1 tab(s) Oral once a day Attention: If you have any medications at home that are not on this list, DO NOT take them until youcontact your provider for clarification. Additional Information: Source: [facility] POWERCHART Document Id: [id number] Miscellaneous - Levi Maloney L.PReginaN. - 08/27/2012 8:21 AM CDT Adult Coil Maker Intake/History Adult Coil Maker Intake/History Entered On: 08/27/2012 8:24 CDT Performed On: 08/27/2012 8:21 CDT by LEVI MALONEY LPN Intake Chief Complaint : complete exam Temperature Core : 36.8 DegC(Converted to: 98.2 DegF) Peripheral Pulse Rate : 64 /min Respiratory Rate : 16 /min Systolic Blood Pressure : 132 mmHg Diastolic Blood Pressure : 74 mmHg NIBP Mean : 93 mmHg BP Location : Left upper extremity Blood Pressure Cuff Size : Large Height : 157 cm(Converted to: 5 ft 2 inch(es), 61.81 inch(es)) Actual Weight : 71 kg(Converted to: 156 lb 8 oz) Weight Source : Standing scale Dosing Weight Clinic : 71 kg Clinic BSA : 1.76 Body Mass Index : 28.8 kg/m2 LEVI MALONEY RAE [facility] [address] - 08/27/2012 8:21 CDT General Info Information Given By : Patient Languages : Prydeinig LEVI MALONEY LALITHA [facility] [address] - 08/27/2012 8:21 CDT Subjective Pain Symptoms : No LEVI MALONEY LALITHA [facility] - 08/27/2012 8:21 CDT Dependent Habits Tobacco Use/Currently Using : No Smoking Status : Never smoker MALONEY LEVIFREDRICK DOTY BENCH MACHINE OPERATOR - 08/27/2012 8:21 CDT Caffeine Use Grid Caffeine Use : Current Type : Coffee Frequency : Daily BRENDON LEVIFREDRICK DOTY [facility] [address] - 08/27/2012 8:21 CDT Recreational Drug Use Grid Drug Use : None MALONEY, LEVIFREDRICK DOTY [facility] - 08/27/2012 8:21 CDT Source: [employer] Document Id: [id number] CDT!33 documented in this encounter Plan of Treatment Not on filedocumented as of this encounter Procedures Procedure Name Priority Date/Time Associated Comments Diagnosis URINALYSIS WITH Routine 08/27/2012 9:11 Results f or this MICROSCOPIC AM CDT procedure are i n the results section. LIPID PANEL, S Routine 08/27/2012 9:00 Results fo r this AM CDT procedure are i n the results section. HEMOGLOBIN, B Routine 08/27/2012 9:00 Results for this AM CDT procedure are i n the results section. ALANINE AMINOTRANSFERASE Routine 08/27/2012 9:00 Results for this (ALT), S/P AM CDT procedure are i n the results section. THYROID-STIMULATING Routine 08/27/2012 9:00 Resul ts for this HORMONE-SENSITIVE AM CDT procedure are in (S-TSH) the results section. BASIC METABOLIC PANEL, Routine 08/27/2012 9:00 Re sults for this S/P AM CDT procedure are i n the results section. documented in this encounter Results (ABNORMAL) Urinalysis, Complete, Includes Microscopic (08/27/2012 9:11 AM CDT) [facility] gist Method Time Signature Protein, Ur, Dip Trace (A) Negative POWERCHART Source Clean Void POWERCHART Urine HXUr Color Yellow POWERCHART Appearance Cloudy (A) POWERCHART Glucose Negative Negative POWERCHART HXBILIRUBIN Negative Negative POWERCHART Ketones, QL(U) Negative Negative POWERCHART Specific 1.015 1.020 POWERCHART [place], POCT, U pH, POCT, Urine 6.0 5.0 - 8.0 POWERCHART HXBLOOD Small (A) Negative POWERCHART Urobilinogen 0.2 0.2 - 1.0 POWERCHART HXNITRITE Positive (A) Negative POWERCHART Leukocyte Large (A) Negative POWERCHART Esterase HXUr WBC 0-5 Negative POWERCHART Red Blood Cell Negative Negative POWERCHART Clump, Urine HXUr Bacteria Many (A) Negative POWERCHART Specimen (Source) Anatomical Collection Method Collection Time Re ceived Time Location / / Volume Laterality Urine 08/27/2012 9:11 AM CDT Neda Hoffman M.D. LAB URINE ORDERABLES Performing Organization Address City/State/ZIP Code Phon e Number POWERCHART Hemoglobin (08/27/2012 9:00 AM CDT) athologist Signature Hemoglobin 13.4 12.0 - 15.5 POWERCHART GDL Specimen (Source) Anatomical Collection Method Collection Time Re ceived Time Location / / Volume Laterality Blood 08/27/2012 9:00 AM CDT Neda Hoffman M.D. LAB BLOOD ADD-ON Performing Organization Address City/[facility] Phon e Number POWERCHART Thyroid-Stimulating Hormone-Sensitive (s-TSH) (08/27/2012 9:00 AM CDT) athologist Signature TSH, Sensitive 1.6 0.3 - 5.0 POWERCHART MIUL Comment: Test Performed by: [address] [address] Slat Basket Maker Helper: Giovany jose III, M.D. Specimen (Source) Anatomical Collection Method Collection Time Re ceived Time Location / / Volume Laterality Blood 08/27/2012 9:00 AM CDT Neda Hoffman M.D. LAB BLOOD ADD-ON Performing Organization Address City/State/ZIP Code Phon e Number POWERCHART (ABNORMAL) Lipid Panel (08/27/2012 9:00 AM CDT) [facility] Signature Cholesterol, 161 0 - 200 POWERCHART Total MGDL HX HDL 61.0 (H) 40.0 - POWERCHART 60.0 MGDL Triglycerides 103 0 - 150 POWERCHART MGDL Calculated LDL 79 0 - 100 POWERCHART MGDL Specimen (Source) Anatomical Collection Method Collection Time Re ceived Time Location / / Volume Laterality Blood 08/27/2012 9:00 AM CDT Neda Hoffman M.D. LAB BLOOD ADD-ON Performing Organization Address City/State/ZIP Code Phon e Number POWERCHART (ABNORMAL) BMP (Basic Metabolic Panel) (08/27/2012 9:00 AM CDT) P athologist Signature BUN (Blood Urea 22 (H) 6 - 20 POWERCHART Nitrogen), S MGDL Creatinine 0.9 0.7 - 1.2 POWERCHART MGDL Potassium, S 4.0 3.5 - 4.8 POWERCHART MMOLL Sodium, S 142 135 - 145 POWERCHART MMOLL Chloride, S 103 100 - 108 POWERCHART MMOLL CO2 Total 29 22 - 29 POWERCHART MMOLL Calcium, Total, 9.3 8.5 - 10.5 POWERCHART S MGDL eGFR >60 MLMIN POWERCHART Black/ Glucose, 118 (H) 70 - 99 POWERCHART Fasting, S MGDL HXeGFR (MDRD) >60 MLMIN POWERCHART Specimen (Source) Anatomical Collection Method Collection Time Re ceived Time Location / / Volume Laterality Blood 08/27/2012 9:00 AM CDT Neda Hoffman M.D. LAB BLOOD ADD-ON Performing Organization Address City/State/ZIP Code Phon e Number POWERCHART ALT (Alanine Aminotransferase) (08/27/2012 9:00 AM CDT) P athologist Signature Alanine 30 9 - 52 POWERCHART Amniotransferas UNITL e, LD Specimen (Source) Anatomical Collection Method Collection Time Re ceived Time Location / / Volume Laterality Blood 08/27/2012 9:00 AM CDT Neda Hoffman M.D. LAB BLOOD ADD-ON Performing Organization Address City/State/ZIP Code Phon e Number POWERCHART documented in this encounter Visit Diagnoses Not on filedocumented in this encounter
--- OUTSIDE RECORDS SUMMARY | 2022-02-28 01:47 | XMS_ITS | Encounter Summary ---
:1940 Author Organization [facility] Address [address] [place] [address] Care Team Providers Name Role Phone Unavailable Primary Care Provider Unavailable Encounter Details Date Type Department Care Team Description 12/10/2009 Hospital Encounter HX [facility] MAMMO Eliseo Hoffman M.D. [address] [place] [address] 021 (Wo rk) Social History Tobacco Use Types Packs/Day Years Used Date Smoking Tobacco: Never Assessed Sex Assigned at Date Recorded Female 09/25/2017 1:20 PM CDT documented as of this encounter Plan of Treatment Not on filedocumented as of this encounter Procedures Procedure Name Priority Date/Time Associated Diagnosis Comme nts BI BREAST SCREENING Routine 12/10/2009 4:46 PM Re sults for this BILATERAL CDT procedure are i n the results section. documented in this encounter Results BI Breast Screening Bilateral (12/10/2009 4:46 PM CDT) Anatomical Region Laterality Modality Breast Bilateral Mammography Specimen (Source) Anatomical Collection Method Collection Time Re ceived Time Location / / Volume Laterality 12/10/2009 4:46 PM CDT Addenda Addendum by ProviderJorge Luis M.D. o n 12/10/2009 4:46 PM CDT RAD^^^OW MA Mammo Screening w ??CADD 12/10/2009 16:46:00 Addendum by ProviderJorge Luis M.D. o n 12/10/2009 4:30 PM CDT RAD^^^MA MA MAMMO SCREENING W CADD 12/10/2009 16:30:00 Impressions 12/11/2009 11:40 AM CDT 1. Stable examination with no mammograph ic evidence of malignancy. 2. Annual screening mammography is recom mended. ?? BIRADS: Code 2, ??Benign Findings ?? BREAST MAMMOGRAPHY-GENERAL OBSERVATION: The false negative rate for mammography is 15 to 20%. It cannot be u sed, therefore, to replace regular physical examination. A normal o r noncontributory mammogram report should also not deter the aggress edna further workup of any suspected palpable masses. Narrative 12/11/2009 11:40 AM CDT Bilateral craniocaudal and oblique views of the breasts were obtained digitally, and compared to the patient's prior studies of 11/11/2008 and prior dating back to 04/25/2005. ?? FINDINGS: ?? The breast parenchyma remains predominan tly fatty and fibroglandular with a stable appearance relative to lulu or studies. Scattered regions of residual asymmetric breast parenchyma are stable in appearance bilaterally. There are scattered stable benign calcification within the right breast. Biopsy scar marker is seen in the right periareolar region. Stable low lying axillary lymph nodes bilaterally. There are no new or suspicious grouping of calcifications, dominant nodules, areas of skin thickening or nip ple retraction to suggest malignancy. ?? Computer Aided Detection was utilized du ring the interpretation of this exam. ?? Procedure Note Hard, Chad Varela M.D. / Provider, Jase mack M.D. - 08/18/2016 Bilateral craniocaudal and oblique views of the breasts were obtained digitally, and compared to the patient's prior studies of 11/11/2008 and prior dating back to 04/25/2005. FINDINGS: The breast parenchyma remains predominan tly fatty and fibroglandular with a stable appearance relative to lulu or studies. Scattered regions of residual asymmetric breast parenchyma are stable in appearance bilaterally. There are scattered stable benign calcification within the right breast. Biopsy scar marker is seen in the right periareolar region. Stable low lying axillary lymph nodes bilaterally. There are no new or suspicious grouping of calcifications, dominant nodules, areas of skin thickening or nip ple retraction to suggest malignancy. Computer Aided Detection was utilized du ring the interpretation of this exam. IMPRESSION: 1. Stable examination with no mammograph ic evidence of malignancy. 2. Annual screening mammography is recom mended. BIRADS: Code 2, Benign Findings BREAST MAMMOGRAPHY-GENERAL OBSERVATION: The false negative rate for mammography is 15 to 20%. It cannot be u sed, therefore, to replace regular physical examination. A normal o r noncontributory mammogram report should also not deter the aggress edna further workup of any suspected palpable masses. Donell Tsang(R)(M) IMG BI PROCEDURES documented in this encounter Visit Diagnoses Not on filedocumented in this encounter
--- OUTSIDE RECORDS SUMMARY | 2022-02-28 01:47 | XMS_ITS | Encounter Summary ---
:1940 Author Organization [facility] Address [address] [place] [address] Care Team Providers Name Role Phone Unavailable Primary Care Provider Unavailable Encounter Details Date Type Department Care Team Description 08/09/2010 Hospital Encounter HX [facility] INTERNMED Regulo Hoffman M.D. [address] [place] [address] 021 (Wo rk) Social History Tobacco Use [...] 1 tablet by 0 01/11/2010 mouth daily. documented as of this encounter Progress Notes Neda Hoffman M.D. - 08/09/2010 12:00 AM CDT [id number] CHIEF COMPLAINT/REASON FOR VISIT Edema in the legs. HISTORY OF PRESENT ILLNESS We have been gradually escalating upwards on the diuretics. She has been taking furosemide 80 milligrams a day and a half of a chlorthalidone 12.5 milligram tablet every other day. On the day she takes chlorthalidone, she really diureses. On the day she does not take chlorthalidone, she goes up in weight. She has formidable venous stasis edema and to put it mildly these are large doses of diuretics. The risk versus benefit of continuing with such strong diuretics was discussed with her and she wants to continue. CURRENT MEDICATIONS Post-visit Medication Reconciliation Please see [facility] electronic medical record. ALLERGIES Per [facility] electronic medical record. SYSTEMS REVIEW Review of systems in all areas is negative except as mentioned above. PAST MEDICAL/SURGICAL HISTORY Per [facility] electronic medical record. PREVENTIVE SERVICES Per [facility] electronic medical record. Handwashing done prior to patient contact. VITAL SIGNS Per [facility] electronic medical record. PHYSICAL EXAM AREA EXAM TEXT EXTREMITIES Examination of the legs reveals flaking dermatitis on the right leg over a sore which is slowly healing. There is no open wound of any kind. She has +1 pitting edema bilaterally even though she is down about 1.5 kilograms in weight. IMPRESSION/REPORT/PLAN Formidable venous stasis edema in the legs. PLAN We will today have her take the half tablet of chlorthalidone every day. I will check electrolytes today with a BMP and have her return in 10 days and check electrolytes again. I am afraid that we may get into having to use way too much potassium and it may not be worthwhile but will see how it goes as she wants to persist. STUDY DONE TODAY Basic metabolic panel DMB/nmd Signed Neda Hoffman M.D. Internal Medicine Electronically Signed By: NEDA HOFFMAN MD On: 08/09/2010 04:39 PM Source: [facility] MHSDOLBEYNONRADSYS Document Id: [id number] documented in this encounter Miscellaneous Notes Miscellaneous - Neda Hoffman M.D. - 08/09/2010 11:18 AM CDT Results Notification Document Contains Addenda Addendum by LEVI MALONEY LPN on 09 Aug 2010 16:01:29 CDT called Addendum by LEVI MALONEY LPN on 09 Aug 2010 16:00:14 CDT called Addendum by NEDA HOFFMAN MD on 09 Aug 2010 15:31:29 CDT From: NEDA HOFFMAN MD To: LEVI MALONEY LPN; Sent: 08/09/2010 15:31:29 CDT Subject: RE: Results Notification Go to 20mg BID Addendum by LEVI MALONEY LPN on 09 Aug 2010 15:10:43 CDT From: LEVI MALONEY LPN To: NEDA HOFFMAN MD; Sent: 08/09/2010 15:10:43 CDT Subject: RE: Results Notification taking 20meq daily From: NEDA HOFFMAN MD To: LEVI MALONEY Sent: 08/09/2010 11:18:46 CDT ! Show up: 08/09/2010 11:17:00 CDT Subject: Results Notification Actions: Notify patient of results Due Date/Time: 08/09/2010 11:17:00 CDT Source: [facility] POWERCHART Document Id: [id number] Electronically signed by Conversion, [facility] Corporate Legal Secretary [id number] at 08/28/2016 7:13 PM CDT Miscellaneous - Levi Maloney L.P.NRegina - 08/09/2010 10:15 AM CDT Adult [place]eller Intake/History Adult [place] Intake/History Entered On: 08/09/2010 10:16 CDT Performed On: 08/09/2010 10:15 CDT by LEVI MALONEY LPN Intake Chief Complaint: recheck Peripheral Pulse Rate: 64/min Systolic Blood Pressure: 122mmHg Diastolic Blood Pressure: 62mmHg NIBP Mean: 82mmHg BP Location: Left upper extremity Heart Rhythm: Regular Actual Weight: 69.500kg(Converted to: 153lb 4oz) Weight Source: Standing scale Dosing Weight Clinic: 69.50kg LEVI MALONEY LPN - 08/09/2010 10:15 CDT Subjective Pain Symptoms: No LEVI MALONEY LPN - 08/09/2010 10:15 CDT Dependent Habits Tobacco Use/Currently Using: No Alcohol Use: No LEVI MALONEY LPN - 08/09/2010 10:15 CDT Caffeine Use Grid Caffeine Use: Current Type: Coffee Frequency: Daily LEVI MALONEY LPN - 08/09/2010 10:15 CDT Recreational Drug Use Grid Drug Use: None LEVI MALONEY LPN - 08/09/2010 10:15 CDT Allergy Allergies (Active) NKA Estimated Onset Date: Unspecified ; Created By: LEVI MALONEY LPN; Reaction Status: Active; Category: Drug ; Substance: NKA ; Type: Allergy ; Updated By: LEVI MALONEY LPN; Reviewed Date: 08/09/2010 10:14 CDT Source: [facility] [employer] Document Id: [id number] CDT!25 documented in this encounter Plan of Treatment Not on filedocumented as of this encounter Visit Diagnoses Not on filedocumented in this encounter
--- OUTSIDE RECORDS SUMMARY | 2022-02-28 01:47 | XMS_ITS | Encounter Summary ---
:1940 Author Organization [facility] Address [address] [place] [address] Care Team Providers Name Role Phone Unavailable Primary Care Provider Unavailable Encounter Details Date Type Department Care Team Description 12/15/[address] [facility] MAMMO Eliseo Hoffman M.D. [address] [place] [address] 021 (Wo rk) Social History Tobacco Use [...] mouth daily. documented as of this encounter Plan of Treatment Not on filedocumented as of this encounter Procedures Procedure Name Priority Date/Time Associated Diagnosis Comme nts BI BREAST SCREENING Routine 12/15/2011 4:05 PM Re sults for this BILATERAL CDT procedure are i n the results section. documented in this encounter Results BI Breast Screening Bilateral (12/15/2011 4:05 PM CDT) Anatomical Region Laterality Modality Breast Bilateral Mammography Specimen (Source) Anatomical Collection Method Collection Time Re ceived Time Location / / Volume Laterality 12/15/2011 4:05 PM CDT Addenda Addendum by ProviderJorge Luis M.D. o n 12/15/2011 4:05 PM CDT RAD^^^OW MA Mammo Screening w ??CADD 12/15/2011 16:05:00 Addendum by ProviderJorge Luis M.D. o n 12/15/2011 4:05 PM CDT RAD^^^MA MA MAMMO SCREENING W CADD 12/15/2011 16:05:00 Impressions 12/16/2011 8:26 AM CDT Stable benign findings. ??Recommend annual screening mammography. BREAST MAMMOGRAPHY - GENERAL OBSERVATION S: ??The false negative rate for mammography is 15-20%. ??It cannot b e used, therefore, to replace the regular physical examination. ??A no rmal or noncontributory mammogram report also should not deter t he aggressive further workup of any suspected palpable masses. ACR Code 2. Narrative 12/16/2011 8:26 AM CDT Comparison: 12/13/2010, 12/10/2009, 009. FINDINGS: Breast tissue demonstrates sca ttered fibroglandular tissue. No suspicious mass, clustered microcalci fication, architectural distortion. Stable mild areas of parench ymal asymmetry. Computer aided detection utilized during interpretation of this exam. Procedure Note Ambrose Curtis M.D. / Provider, His cristian M.D. - 08/17/2016 Comparison: 12/13/2010, 12/10/2009, 009. FINDINGS: Breast tissue demonstrates sca ttered fibroglandular tissue. No suspicious mass, clustered microcalci fication, architectural distortion. Stable mild areas of parench ymal asymmetry. Computer aided detection utilized during interpretation of [...] any suspected palpable masses. ACR Code 2. Donell Tsang(Nicki)(M) IMG BI PROCEDURES documented in this encounter Visit Diagnoses Not on filedocumented in this encounter
--- OUTSIDE RECORDS SUMMARY | 2022-02-28 01:47 | XMS_ITS | Encounter Summary ---
:1940 Author Organization [facility] Address [address] [place] [address] Care Team Providers Name Role Phone Unavailable Primary Care Provider Unavailable Encounter Details Date Type Department Care Team Description 06/21/2010 Hospital Encounter HX [facility] INTERNMED Regulo Hoffman M.D. [address] [place] [address] 021 (Wo rk) Social History Tobacco Use [...] encounter Progress Notes Neda Hoffman M.D. - 06/21/2010 12:00 AM CDT [id number] CHIEF COMPLAINT/REASON FOR VISIT Redness and pain, right leg. HISTORY OF PRESENT ILLNESS This patient who has had a skin lesion removed from her right lower leg and has venous insufficiency has had some recurrent bouts of cellulitis. She comes today because she is starting to get redness around the lower aspect of the scar again. It hurts her quite a bit and she is worried that it is going to takeoff. She has not had fever, chills or sweats. CURRENT MEDICATIONS Post-visit Medication Reconciliation Please see [facility] electronic medical record. ALLERGIES Per [facility] electronic medical record. SYSTEMS REVIEW Review of systems in all areas is negative except as mentioned above. PAST MEDICAL/SURGICAL HISTORY Per [facility] electronic medical record. PREVENTIVE SERVICES Per [facility] electronic medical record. Handwashing done prior to patient contact. VITAL SIGNS Per [facility] electronic medical record. PHYSICAL EXAM AREA EXAM TEXT EXTREMITIES She has a larger scar on the lateral aspect of the right lower leg and the distal part of the scar is erythematous, red and painful to touch on. It is not warm. IMPRESSION/REPORT/PLAN I will treat with Augmentin 500 milligrams twice daily times 10 days in the event that this is an early cellulitis. She is instructed to elevate her right leg as much she can. She will call us in 10 days and tell us what the antibiotics have done. If she gets another attack in the near future, I am going to stop chlorthalidone and use furosemide to clear more edema from her leg. DMB/nmd Signed Neda Hoffman M.D. Internal Medicine Electronically Signed By: NEDA HOFFMAN MD On: 06/23/2010 08:56 Source: [facility] MHSDOLBEYNONRADSYS Document Id: [id number] documented in this encounter Miscellaneous Notes Miscellaneous - Neda Hoffman M.D. - 06/21/2010 2:30 PM CDT Ambulatory Patient Summary [address] [address] Visit Information Name: JACOB ANDINO Current Date: 06/21/2010 14:30:40 Primary Care Provider: NEDA HOFFMAN MD Your Medications Here is a list of your medications. It is important to take your medications as directed. Use a pillbox or chart to help remind you to take your medications. Please let your doctor or nurse know if you have problems taking your medications. 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 Here is a customized list of recommendations, based on information we have in your medical record. Your doctor may have additional recommendations for you, based on your personal medical history and risk factors. You can help us by calling us to make an appointment when you are due for your tests. Additional information regarding recommendations: Test/Treatment Last Done Next Due Additional Information Screening Bone Density Once Women greater than age 64 06/21/2010 Checks for bone loss and osteoporosis. Screening Colonoscopy or Flex Sig or Barium Enema or Occult Blood X3 11/19/2007 11/16/2017 Checks for signs of cancer of the colon. Screening Mammogram every 1 year Women 40-75 12/10/2009 12/10/2010 X-rays of breast to check for breast cancer. Lipid Panel every 5 years Age 20-75 01/11/2010 01/10/2015 Checks blood for good (HDL) and bad (LDL) cholesterol. Know your numbers, they are one indicator of your risk for heart attack and stroke. Vaccine: Flu every 1 year 06/21/2010 Immunization to help prevent you from getting the flu strain expected to be a problem for that year's flu season. Vaccine: Pneumococcal Once 07/09/2005 Completed Immunization to help prevent you from getting 23 kinds of pneumococcal bacteria that can lead to pneumonia, bacteremia and meningitis. Vaccine: Tetanus every 10 years 07/09/2005 07/07/2015 Immunization to help prevent you from getting the serious disease Tetanus (Lockjaw). Your Upcoming Appointments Date Time Location Reason Provider No Appointments found Your Goals/Additional instructions: Source: [facility] POWERCHART Document Id: [id number] Electronically signed by Pj, [facility] Orthophoto Tech/[place] [id number] at 08/28/2016 6:35 PM CDT Miscellaneous - Neda Hoffman M.D. - 06/21/2010 2:30 PM CDT Ambulatory Depart Summary [place] [id number] [place] [address] Visit Information Name: JACOB ANDINO Current Date: 06/21/2010 14:30:40 Primary Care Provider: NEDA HOFFMAN MD JACOB ANDINO has been given the following list of medications: Your Medications It is important to take your medications as directed. Use a pill box or chart to help remind you to take your medications. Please let your doctor or nurse know if you have problems taking your medications. Medication/Strength Dose Route Frequency Indications/Special Instructions/Comments amoxicillin-clavulanate (Augmentin 500 mg oral tablet) 1 tab(s) Oral two times a day calcium-vitamin D (Calcium 600+D) Oral once a day multivitamin (multivitamin) Oral once a day aspirin (aspirin 81 mg oral tablet) 1 tab(s) Oral once a day chlorthalidone (chlorthalidone 25 mg oral tablet) See Instructions PO Daily Additional Information: Yes - Current list of reconciled medications is provided and explained to the patient and/or family, guardian/caregiver. Source: [facility] POWERCHART Document Id: [id number] Electronically signed by Conversion, [facility] [employer] Tech/[place] [id number] at 08/28/2016 6:35 PM CDT Miscellaneous - Levi Maloney L.PReginaN. - 06/21/2010 2:23 PM CDT Adult Corporate Coordinator Intake/History Adult Corporate Coordinator Intake/History Entered On: 06/21/2010 14:26 CDT Performed On: 06/21/2010 14:23 CDT by LEVI MALONEY LPN Intake Chief Complaint: check left leg Temperature Core: 37.0C(Converted to: 98.6DegF) Peripheral Pulse Rate: 60/min Systolic Blood Pressure: 126mmHg Diastolic Blood Pressure: 70mmHg NIBP Mean: 89mmHg BP Location: Left upper extremity Heart Rhythm: Regular Actual Weight: 71.000kg(Converted to: 156lb 8oz) Dosing Weight Clinic: 71.00kg LEVI MALONEY LPN - 06/21/2010 14:23 CDT Subjective Pain Symptoms: No LEVI MALONEY LPN - 06/21/2010 14:23 CDT Dependent Habits Tobacco Use/Currently Using: No LEVI MALONEY LPN - 06/21/2010 14:23 CDT Caffeine Use Grid Caffeine Use: Current Type: Coffee Frequency: Daily LEVI MALONEY LPN - 06/21/2010 14:23 CDT Recreational Drug Use Grid Drug Use: None LEVI MALONEY LPN - 06/21/2010 14:23 CDT Allergies Latex Screening: No LEVI MALONEY LPN - 06/21/2010 14:23 CDT Allergies (Active) NKA Estimated Onset Date: Unspecified ; Created By: LEVI MALONEY LPN; Reaction Status: Active; Category: Drug ; Substance: NKA ; Type: Allergy ; Updated By: LEVI MALONEY LPN; Reviewed Date: 06/21/2010 14:23 CDT Source: [facility] [employer] Document Id: [id number] CDT!26 documented in this encounter Plan of Treatment Not on filedocumented as of this encounter Visit Diagnoses Not on filedocumented in this encounter
--- OUTSIDE RECORDS SUMMARY | 2022-02-28 01:47 | XMS_ITS | Encounter Summary ---
:1940 Author Organization [facility] Address [address] [place] [address] Care Team Providers Name Role Phone Unavailable Primary Care Provider Unavailable Encounter Details Date Type Department Care Team Description 08/11/2011 Hospital Encounter HX [facility] INTERNMED Regulo Hoffman M.D. [address] [place] [address] 021 (Wo rk) Social History Tobacco Use Types Packs/Day Years Used Date Smoking Tobacco: Never Assessed Sex Assigned at Date Recorded Female 09/25/2017 1:20 PM CDT documented as of this encounter Last Filed Vital Signs Vital Sign Reading Time Taken Comments Blood Pressure 118/68 08/11/2011 2:57 PM CDT Pulse 80 08/11/2011 2:57 PM CDT Temperature - - Respiratory Rate - - Oxygen Saturation - - Inhaled Oxygen Concentration - - Weight 73 kg (160 lb 15 oz) 08/11/2011 2:57 PM CDT Height - - Body Mass Index - - documented in this encounter Medications at Time of Discharge Medication Sig Dispensed Refills Start Date End Date CALCIUM CARB/VIT Take 1 tablet by 0 01/11/2010 D3/MINERALS mouth daily. (CALCIUM-VITAMIN D ORAL) MULTIVITAMIN ORAL Take 1 tablet by 0 01/11/2010 mouth daily. documented as of this encounter Progress Notes Neda Hoffman M.D. - 08/11/2011 12:00 AM CDT [id number] CHIEF COMPLAINT/REASON FOR VISIT Pain in left hip. HISTORY OF PRESENT ILLNESS Jacob presents today with pain in her left hip. She has had this for about 2 or 3 days. She is afraid of back problems because she had such a formidable sciatica problem, but the pain is on the lateral aspect of the hip. CURRENT MEDICATIONS Post-visit Medication Reconciliation Per [facility] in [place] electronic medical record. ALLERGIES Per [facility] electronic medical record. SYSTEMS REVIEW Review of systems in all areas is negative except as mentioned above. PAST MEDICAL/SURGICAL HISTORY Per [facility] electronic medical record. PREVENTIVE SERVICES Per [facility] electronic medical record. Handwashing done prior to patient contact. VITAL SIGNS Per [facility] electronic medical record. PHYSICAL EXAM Her left hip flexes and internally externally rotates without any pain. She does have trochanteric bursitis with pain over the greater trochanter. IMPRESSION/REPORT/PLAN Trochanteric bursitis. We will do a soft tissue injection. PROCEDURE We prepped with alcohol and under aseptic conditions injected 3 cubic centimeters of 1% lidocaine and 40 milligrams of triamcinolone. No complications. There was immediate relief. Band-Aid applied. She is to call immediately if she notes redness, pain or swelling. DMB/nmd Signed Neda Hoffman M.D. Internal Medicine Electronically Signed By: NEDA HOFFMAN MD On: 08/15/2011 07:57 AM Source: [facility] MHSDOLBEYNONRADSYS Document Id: [id number] documented in this encounter Miscellaneous Notes Miscellaneous - Neda Hoffman M.D. - 08/11/2011 3:07 PM CDT Ambulatory Patient Summary [address] [address] Visit Information Name: JACOB ANDINO Current Date: 08/11/2011 15:07:37 Physicians Attending Provider: NEDA HOFFMAN MD Primary Care Provider: NEDA HOFFMAN MD Your Medications Here is a list of your medications. It is important to take your medications as directed. Use a pillbox or chart to help remind you to take your medications. Please let your doctor or nurse know if you have problems taking your medications. Medication/Strength Dose Route Frequency Indications/Special Instructions/Comments chlorthalidone (chlorthalidone 25 mg oral tablet) 25 mg Oral once a day furosemide (furosemide 80 mg oral tablet) 40 mg Oral once a day calcium-vitamin D [...] No Appointments found Your Goals/Additional instructions: Source: [facility] POWERCHART Document Id: [id number] Miscellaneous - Neda Hoffman M.D. - 08/11/2011 3:07 PM CDT Ambulatory Depart Summary [address] [address] Visit Information Name: KELLEESANDEEPMirzaJACOB KAMRAN Visit Date: 08/11/2011 15:07:36 Attending Provider: NEDA HOFFMAN MD Primary Care [...] medications. Medication/Strength Dose Route Frequency Indications/Special Instructions/Comments chlorthalidone (chlorthalidone 25 mg oral tablet) 25 mg Oral once a day furosemide (furosemide 80 mg oral tablet) 40 mg Oral once a day calcium-vitamin D (Calcium 600+D) Oral once a day multivitamin (multivitamin) Oral once a day aspirin (aspirin 81 mg oral tablet) 1 tab(s) Oral once a day Attention: If you have any medications at home that are not on this list, DO NOT take them until youcontact your provider for clarification. Additional Information: Source: [facility] POWERCHART Document Id: [id number] Miscellaneous - Levi Maloney L.P.N. 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 Entered On: 08/11/2011 15:00 CDT Performed On: 08/11/2011 14:57 CDT by LEVI MALONEY LPN Intake Chief Complaint : pain in left hip since tues Peripheral Pulse Rate : 80/min Systolic Blood Pressure : 118mmHg Diastolic Blood Pressure : 68mmHg NIBP Mean : 85mmHg BP Location : Left upper extremity Blood Pressure Cuff Size : Regular Actual Weight : 73kg(Converted to: 160lb 15oz) Weight Source : Standing scale Dosing Weight Clinic : 73.00kg LEVI MALONEY LPN - 08/11/2011 14:57 CDT Subjective Pain Symptoms : Yes LEVI MALONEY LPN - 08/11/2011 14:57 CDT Pain Pain Assessment Grid Pain 1 Location : Hip Laterality : Left Intensity : 5 Time Pattern : Chronic Onset : Gradual Quality : Aching LEVI MALONEY LPN - 08/11/2011 14:57 CDT Dependent Habits Tobacco Use/Currently Using : No Smoking Status : Never smoker LEVI MALONEY LPN - 08/11/2011 14:57 CDT Caffeine Use Grid Caffeine Use : Current Type : Coffee Frequency : Daily LEVI MALONEY LPN - 08/11/2011 14:57 CDT Recreational Drug Use Grid Drug Use : None LEVI MALONEY LPN - 08/11/2011 14:57 CDT Allergy Allergies (Active) oxyCODONE Estimated Onset Date: Unspecified ; Created By: LEVI MALONEY LPN; Reaction Status: Active ; Category: Drug ; Substance: oxyCODONE ; Type: Allergy ; Updated By: LEVI MALONEY LPN;Source: Patient ; Reviewed Date: 08/11/2011 14:57 CDT Source: [facility] [employer]ART Document Id: [id number] CDT!34 documented in this encounter Plan of Treatment Not on filedocumented as of this encounter Visit Diagnoses Not on filedocumented in this encounter
--- OUTSIDE RECORDS SUMMARY | 2022-02-28 01:47 | XMS_ITS | Encounter Summary ---
:1940 Author Organization [facility] Address [address] [place] [address] Care Team Providers Name Role Phone Unavailable Primary Care Provider Unavailable Encounter Details Date Type Department Care Team Description 04/12/2010 Hospital Encounter HX [facility] INTERNMED Regulo Hoffman M.D. [address] [place] [address] 021 (Wo rk) Social History Tobacco Use [...] encounter Progress Notes Neda Hoffman M.D. - 04/12/2010 12:00 AM CST [id number] IMPRESSION/REPORT/PLAN Severe muscle spasm in the neck, worse left than the right. We talked about what to do here and I will try medical treatment. We will also do x-rays of her cervical spine to make sure there is no malignancy or something, although I think the x-rays will show muscle spasm and degenerative joint disease consistent with her age and nothing else. When those x-rays are cleared, I think chiropractic treatment would be helpful and I recommended she seek chiropractic treatments as long as we clear the x-rays. She was comfortable with this plan. I think with medications and chiropractic treatments she should improve. As I find these problems are often from bad pillows, I told her she should change her pillow; if she has a very soft pillow, she should get a firmer pillow; if she has a very hard pillow, she should get a softer pillow, but she should definitely make a change and this should help for the assisted. STUDIES DONE TODAY Cervical spine x-rays, four views Total time was 25 minutes, time in counseling was greater than 17 minutes. CHIEF COMPLAINT/REASON FOR VISIT Neck pain. HISTORY OF PRESENT ILLNESS The patient has had about a three-day notation of pain in her neck. She woke up with it in the morning. It is more of a torticollis type problem. Her neck muscles are very stiff and she has difficulty looking to either side, but particularly the left side. She tends to hold her head right in the center. She doesn't want to look up or down. She tried ibuprofen at her pharmacist's recommendation over the weekend and got a sick stomach from it and so stopped the ibuprofen. There was no injury or trauma and there was no unusual activity the day before. She doesn't have any radicular features. There are no neurologic manifestations. CURRENT MEDICATIONS Post-visit Medication Reconciliation Per electronic medical record. ALLERGIES Per electronic medical record. SYSTEMS REVIEW Review of systems in all areas except as mentioned above is negative. PAST MEDICAL/SURGICAL HISTORY 1. Hypertension 2. Venous stasis with peripheral dermatitis in the lower extremities 3. Mild peripheral vascular disease 4. Premature history of coronary artery disease in the family, but no symptoms herself 5. Chronic onychomycosis of the toenails 6. Status-post WILFREDO/BSO for nonmalignant reasons with associated bladder repair 17 to 18 years ago 7. Status-post two breast biopsies of the right breast in 1983, both benign 8. Status-post bilateral cataract with lens implant 9. Status-post cholecystectomy PREVENTIVE SERVICES Age: 69. Diphtheria/Tetanus: 07/09/2005. Influenza vaccine: 01/2010 at the [employer] where she works. Pneumovax: 07/09/2005. Varivax: 02/12/2007. Colon screening: Colonoscopy 11/19/2007. Low risk. Mammogram: 12/10/2009, negative. Lipid screenin01/11/2010. Pelvic exam: 01/2008. Pap smear: Status post-hysterectomy. DEXA scan: 02/2008. Tobacco: No tobacco use. Handwashing done prior to patient contact. VITAL SIGNS Per electronic medical record. PHYSICAL EXAM AREA EXAM TEXT EYES Conjunctiva and lids normal. Pupils equal, round, reactive to light and accommodation. Extraocular movements normal. Sclera nonicteric. Ophthalmologic exam grossly normal. ENT Tympanic membranes look okay bilaterally. Nares without erythema or congestion. Mouth without erythema or exudate, no leuko or erythroplakia. NECK Neck is supple. Carotid upstrokes +2 bilaterally. No carotid bruits. LYMPH NODES No cervical adenopathy. THYROID No thyromegaly. HEART Central venous pressure is normal at 7 to 8 centimeters of water or less; there is a normal systolic collapse of the jugular venous pulse; there is not a positive hepatojugular reflex. Heart tones are in sinus rhythm; S1 and S2 normal, physiologic splitting of the second heart tone, no third or fourth sound, no significant murmur, no gallop. LUNGS Lung mitchell clear to auscultation and percussion with normal respiratory rate and effort. SPINE Her neck is very stiff. She has limited rotation, lateral bending and extension and flexion. I can feel spasm in the posterior nuchal muscles and the sternocleidomastoid muscles. The trapezius muscles are also in spasm. DMB/nmd Signed Neda Hoffman M.D. Internal Medicine Electronically Signed By:NEDA HOFFMAN MD On 04/13/2010 02:03 PM Source: [facility] MHSDOLBEYNONRADSYS Document Id: [id number] TOURNAMENT CONSULTANT documented in this encounter Miscellaneous Notes Miscellaneous - Neda Hoffman M.D. - 04/13/2010 10:09 AM CST Reminder Ms Document Contains Addenda Addendum by LEVI MALONEY LPN on 13 April 2010 10:23:19 GOLF TOURNAMENT CONSULTANT called with results From: NEDA HOFFMAN MD To: LEVI MALONEY LPN Sent: 04/13/2010 10:09:59 GOLF TOURNAMENT CONSULTANT ! Show up: 04/13/2010 10:09:00 GOLF TOURNAMENT CONSULTANT Subject: Reminder Msg Actions: Notify patient of results Due Date/Time: 04/13/2010 10:09:00 GOLF TOURNAMENT CONSULTANT Source: [facility] DIATEM NetworksCHART Document Id: [id number] Electronically signed by Conversion, [facility] Laborer [employer] [id number] at 08/28/2016 9:32 AM CDT Neda Alegre M.D. - 04/12/2010 4:12 PM CST Reminder Msg Document Contains Addenda Addendum by LEVI MALONEY LPN on 12 April 2010 16:22:37 GOLF TOURNAMENT CONSULTANT called with results From: NEDA HOFFMAN MD To: LEVI MALONEY LPN Sent: 04/12/2010 16:12:00 GOLF TOURNAMENT CONSULTANT ! Show up: 04/12/2010 16:11:00 GOLF TOURNAMENT CONSULTANT Subject: Reminder Msg Actions: Notify Patient of Future Order Due Date/Time: 04/12/2010 16:11:00 GOLF TOURNAMENT CONSULTANT Source: [facility] eeGeo Document Id: [id number] Electronically signed by Conversion, [facility] [employer] [id number] at 08/28/2016 9:32 AM CDT Neda Alegre M.D. - 04/12/2010 3:23 PM CST Ambulatory Patient Summary [address] [address] Visit Information Name: JACOB ANDINO Current Date: 04/12/2010 15:23:23 Primary Care Provider: NEDA HOFFMAN MD Your Medications Here is a list of your medications. It is important to take your medications as directed. Use a pillbox or chart to help remind you to take your medications. Please let your doctor or nurse know if you have problems taking your medications. Medication/Strength Dose Route Frequency Indications/Special Instructions/Comments cyclobenzaprine (Flexeril 10 mg oral tablet) 10 mg Oral three times a day as needed for Muscle spasm acetaminophen-hydrocodone (Vicodin ES 7.5 mg-750 mg oral tablet) 1 tab(s) Oral every 4 hours as needed for Pain No more than 4,000mg acetaminophen/24hrs ciprofloxacin (ciprofloxacin 250 mg oral tablet) 250 mg Oral two times a day calcium-vitamin D [...] Density Once Women greater than age 64 Completed Checks for bone loss and osteoporosis. Screening [...] and stroke. Vaccine: Flu every 1 year 04/12/2010 Immunization to help prevent you from getting the flu strain expected to be a problem for that year's flu season. Vaccine: Pneumococcal Once 07/09/2005 Completed Immunization to help prevent you from getting 23 kinds of pneumococcal bacteria that can lead to pneumonia, bacteremia and meningitis. Vaccine: Tetanus every 10 years 07/09/2005 07/07/2015 Immunization to help prevent you from getting the serious disease Tetanus (Frankyjaw). Your Upcoming Appointments Date Time Location Reason Provider No Appointments found Your Goals/Additional instructions: Source: [facility] DIATEM NetworksCHART Document Id: [id number] Electronically signed by Conversion, [facility] [employer] [id number] at 08/28/2016 9:36 AM CDT Miscellaneous - Neda Hoffman M.D. - 04/12/2010 3:23 PM CST Ambulatory Depart Summary [address] [address] Visit Information Name: JACOB ANDINO Current Date: 04/12/2010 15:23:22 Primary Care Provider: NEDA HOFFMAN MD JACOB ANDINO has been given the following list of medications: Your Medications It is important to take your medications as directed. Use a pill box or chart to help remind you to take your medications. Please let your doctor or nurse know if you have problems taking your medications. Medication/Strength Dose Route Frequency Indications/Special Instructions/Comments cyclobenzaprine (Flexeril 10 mg oral tablet) 10 mg Oral three times a day as needed for Muscle spasm acetaminophen-hydrocodone (Vicodin ES 7.5 mg-750 mg oral tablet) 1 tab(s) Oral every 4 hours as needed for Pain No more than 4,000mg acetaminophen/24hrs ciprofloxacin (ciprofloxacin 250 mg oral tablet) 250 mg Oral two times a day calcium-vitamin D (Calcium 600+D) Oral once a day multivitamin (multivitamin) Oral once a day aspirin (aspirin 81 mg oral tablet) 1 tab(s) Oral once a day chlorthalidone (chlorthalidone 25 mg oral tablet) See Instructions PO Daily Additional Information: Yes - Current list of reconciled medications is provided and explained to the patient and/or family, guardian/caregiver. Source: 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/History Entered On: 04/12/2010 15:06 GOLF TOURNAMENT CONSULTANT Performed On: 04/12/2010 15:03 GOLF TOURNAMENT CONSULTANT by LEVI MALONEY LPN Intake Chief Complaint: pain in neck since Peripheral Pulse Rate: 60/min Systolic Blood Pressure: 124mmHg Diastolic Blood Pressure: 64mmHg NIBP Mean: 84mmHg BP Location: Left upper extremity Actual Weight: 69.000kg(Converted to: 152lb 2oz) Weight Source: Standing scale Dosing Weight Clinic: 69.00kg LEVI MALONEY LPN - 04/12/2010 15:03 GOLF TOURNAMENT CONSULTANT Subjective Pain Symptoms: Yes LEVI MALONEY LPN - 04/12/2010 15:03 GOLF TOURNAMENT CONSULTANT Pain Pain Assessment Grid Pain 1 Location: Neck Laterality: Bilateral Intensity: 10 Time Pattern: Acute Onset: Sudden Quality: Aching LEVI MALONEY LPN - 04/12/2010 15:03 GOLF TOURNAMENT CONSULTANT Dependent Habits Tobacco Use/Currently Using: No Alcohol Use: No LEVI MALONEY LPN - 04/12/2010 15:03 GOLF TOURNAMENT CONSULTANT Caffeine Use Grid Caffeine Use: Current Type: Coffee Frequency: Daily LEVI MALONEY LPN - 04/12/2010 15:03 GOLF TOURNAMENT CONSULTANT Recreational Drug Use Grid Drug Use: None LEVI MALONEY LPN - 04/12/2010 15:03 GOLF TOURNAMENT CONSULTANT Allergies Latex Screening: No LEVI MALONEY LPN - 04/12/2010 15:03 GOLF TOURNAMENT CONSULTANT Allergies (Active) NKA Estimated Onset Date: Unspecified ; Created By: LEVI MALONEY LPN; Reaction Status: Active; Category: Drug ; Substance: NKA ; Type: Allergy ; Updated By: LEVI MALONEY LPN; Reviewed Date: 04/12/2010 15:02 GOLF TOURNAMENT CONSULTANT Source: [facility] POWERCHART Document Id: [id number] GOLF TOURNAMENT CONSULTANT!35 TOURNAMENT CONSULTANT documented in this encounter Plan of Treatment Not on filedocumented as of this encounter Procedures Procedure Name Priority Date/Time Associated Diagnosis Comme nts DX CERVICAL SPINE Routine 04/12/2010 3:29 PM Resu lts for this 4-5 VIEWS GOLF TOURNAMENT CONSULTANT procedure are i n the results section. documented in this encounter Results DX Cervical Spine 4-5 Views (04/12/2010 3:29 PM GOLF TOURNAMENT CONSULTANT) Anatomical Region Laterality Modality Cervical Spine N/A Radiographic Imaging Specimen (Source) Anatomical Collection Method Collection Time Re ceived Time Location / / Volume Laterality 04/12/2010 3:29 PM GOLF TOURNAMENT CONSULTANT Addenda Addendum by ProviderJorge Luis M.D. o n 04/12/2010 3:29 PM GOLF TOURNAMENT CONSULTANT RAD^^^OW XR Cervical Spine 4 views 04/12/2010 15:29:00 Addendum by Provider, Estella Kang o n 04/12/2010 3:29 PM GOLF TOURNAMENT CONSULTANT RAD^^^MA XR CERVICAL SPINE 4 VIEWS 04/12/2010 15:29:00 Narrative 04/12/2010 3:58 PM GOLF TOURNAMENT CONSULTANT FINDINGS: There is a normal cervical fabricio dosis. The vertebral body heights are maintained. There is narrowi ng of the disc space at C3-C4 as well as narrowing of the disc space a t C5-C6 with endplate sclerosis and spur formation. There are degenerative changes of the posterior facets at multiple levels. The C1-C2 relationship is normal. No prevertebral soft tissue swelling is seen. The C7-T1 relationship is normal. No fracture or subluxation is seen. ?? CONCLUSION: Degenerative disc and facet disease. Procedure Note Neda Baldwin M.D. / ProviderJase M.D. - 08/17/2016 FINDINGS: There is a normal cervical fabricio dosis. The vertebral body heights are maintained. There is narrowi ng of the disc space at C3-C4 as well as narrowing of the disc space a t C5-C6 with endplate sclerosis and spur formation. There are degenerative changes of the posterior facets at multiple levels. The C1-C2 relationship is normal. No prevertebral soft tissue swelling is seen. The C7-T1 relationship is normal. No fracture or subluxation is seen. CONCLUSION: Degenerative disc and facet disease. Aithai See R.T.(R) IMG DIAGNOSTIC IMAGING PROCE DURES documented in this encounter Visit Diagnoses Not on filedocumented in this encounter
--- OUTSIDE RECORDS SUMMARY | 2022-02-28 01:47 | XMS_ITS | Encounter Summary ---
:1940 Author Organization [facility] Address [address] [place] [address] Care Team Providers Name Role Phone Unavailable Primary Care Provider Unavailable Encounter Details Date Type Department Care Team Description 12/13/2010 Hospital Encounter HX [facility] MAMMO Eliseo Hoffman M.D. [address] [place] [address] 021 (Wo rk) Social History Tobacco Use [...] Diagnosis Comme nts BI BREAST SCREENING Routine 12/13/2010 4:21 PM Re sults for this BILATERAL CDT procedure are i n the results section. documented in this encounter Results BI Breast Screening Bilateral (12/13/2010 4:21 PM CDT) Anatomical Region Laterality Modality Breast Bilateral Mammography Specimen (Source) Anatomical Collection Method Collection Time Re ceived Time Location / / Volume Laterality 12/13/2010 4:21 PM CDT Addenda Addendum by ProviderJorge Luis M.D. o n 12/13/2010 4:21 PM CDT RAD^^^OW MA Mammo Screening w ??CADD 12/13/2010 16:21:00 Addendum by ProviderJorge Luis M.D. o n 12/13/2010 4:11 PM CDT RAD^^^MA MA MAMMO SCREENING W CADD 12/13/2010 16:11:00 Impressions 12/13/2010 5:03 PM CDT BI-RADS 1. Negative. Recommend routine s creening mammogram. ? BREAST MAMMOGRAPHY-GENERAL OBSERVATION: The false negative rate for mammography it is 15 to 20%. It cannot b e used, therefore, to replace regular physical examination. A normal o r noncontributory mammogram report should also not deter the aggress edna further workup of any suspected palpable masses. Narrative 12/13/2010 5:03 PM CDT Screening Digital Mammogram MLO and CC v iews ? Clinical history: No current complaints ?? Comparison: 12/10/2009, 11/11/2008, , 07/17/2006. ?? Findings: The breast parenchyma is scatt ered fibroglandular density. There is no suspicious microcalcificatio n, ??focal mass, or architectural distortion. ??There is no significant change. ?? Computer Aided Detection was utilized du ring the interpretation of this exam. ?? Procedure Note Ambrose Sanchez M.D. / Provider, René estevez M.D. - 08/18/2016 Screening Digital Mammogram MLO and CC v iews Clinical history: No current complaints Comparison: 12/10/2009, 11/11/2008, , 07/17/2006. Findings: The breast parenchyma is scatt ered fibroglandular density. There is no suspicious microcalcificatio n, focal mass, or architectural distortion. There is no si gnificant change. Computer Aided Detection was utilized du ring the interpretation of this exam. IMPRESSION: BI-RADS 1. Negative. Recommend routine s creening mammogram. BREAST MAMMOGRAPHY-GENERAL OBSERVATION: The false negative rate for mammography it is 15 to 20%. It cannot b e used, therefore, to replace regular physical examination. A normal o r noncontributory mammogram report should also not deter the aggress edna further workup of any suspected palpable masses. Donell Tsang(Nicki)(M) IMG BI PROCEDURES documented in this encounter Visit Diagnoses Not on filedocumented in this encounter
--- OUTSIDE RECORDS SUMMARY | 2022-02-28 01:47 | XMS_ITS | Encounter Summary ---
:1940 Author Organization [facility] Address [address] [place] [address] Care Team Providers Name Role Phone Unavailable Primary Care Provider Unavailable Encounter Details Date Type Department Care Team Description 03/29/2011 Hospital Encounter HX [facility] FBHB INTERNMED Regulo Hoffman M.D. [address] [place] [address] 021 (Wo rk) Social History Tobacco Use Types Packs/Day Years Used Date Smoking Tobacco: Never Assessed Sex Assigned at Date Recorded Female 09/25/2017 1:20 PM CDT documented as of this encounter Last Filed Vital Signs Vital Sign Reading Time Taken Comments Blood Pressure 128/64 03/29/2011 1:43 PM DOPE POURER Pulse 72 03/29/2011 1:43 PM DOPE POURER Temperature - - Respiratory Rate - - Oxygen Saturation - - Inhaled Oxygen Concentration - - Weight 70 kg (154 lb 5.2 oz) 03/29/2011 1:43 PM DOPE POURER Height - - Body Mass Index - - documented in this encounter Medications at Time of Discharge Medication Sig Dispensed Refills Start Date End Date CALCIUM CARB/VIT Take 1 tablet by 0 01/11/2010 D3/MINERALS mouth daily. (CALCIUM-VITAMIN D ORAL) MULTIVITAMIN ORAL Take 1 tablet by 0 01/11/2010 mouth daily. documented as of this encounter Progress Notes Neda Hoffman M.D. - 03/29/2011 12:00 AM CST [id number] CHIEF COMPLAINT/ REASON FOR VISIT Back pain. HISTORY OF PRESENT ILLNESS The patient developed terrible back pain 2 days ago. She got it from waking up in the middle of the night. It was on the left side of her back and radiating down the side of her leg in a sciatic fashion to a little bit below the knee. Yesterday she went to the [facility] emergency room where either a CT scan or an MRI was performed. They did not find any disc impingement. She was prescribed Toradol, Dilaudid and Zofran. She does not think the Dilaudid helped. She describes the pain in a sciatic type distribution radiating into the buttock and down the lateral aspect of the thigh to [id number]. It does not go to the foot however. She is very tender in her back as she stands, twists and turns. CURRENT MEDICATIONS Post-visit Medication Reconciliation Per [facility] in [place] electronic medical record. ALLERGIES Per [facility] electronic medical record. SYSTEMS REVIEW Review of systems in all areas is negative except as mentioned above. PAST MEDICAL/SURGICAL HISTORY Per [facility] electronic medical record. PREVENTIVE SERVICES Per [facility] electronic medical record. Handwashing done prior to patient contact. VITAL SIGNS Per [facility] electronic medical record. PHYSICAL EXAM Her back is very tender in the left paravertebral muscle. She winces and cries as I push on that muscle which is tight and spasming. I did not find any evidence of sciatic involvement per se. I could find no knee pain or hip pain. I could find no trochanteric bursitis. IMPRESSION/REPORT/PLAN I think she has severe lumbar strain with paravertebral muscle spasm on the left. She has tenderness exclusively in one area so we did a soft tissue injection. PROCEDURE I prepped with alcohol and under aseptic conditions put in 3 cubic centimeters of 1% lidocaine and 4 milligrams of Decadron. She did have some immediate relief. We will stop the Toradol, the Dilaudid and the Zofran. She will use Vicodin p.r.n. which she has at home already, Naprosyn 500 milligrams twice daily on a full stomach times 10 days and Flexeril 10 milligrams by mouth three times daily. She will call us tomorrow and tell us how she is feeling. Time component: 25 minutes, time in counseling greater than 17 minutes. DMB/nmd Signed Neda Hoffman M.D. Internal Medicine Electronically Signed By: NEDA HOFFMAN MD On: 03/29/2011 03:35 PM Source: [facility] MHSDOLBEYNONRADSYS Document Id: [id number] POURER documented in this encounter Nursing Notes Levi Maloney L.P.N. - 04/19/2011 2:56 PM CST referral referral faxed to [facility] Electronically Signed By: LEVI MALONEY LPN On: 04/19/2011 02:57 PM Source: [facility] [employer] Document Id: [id number] POURER documented in this encounter Miscellaneous Notes Miscellaneous - Conversion, Historical Provider Ser - 07/19/2011 8:43 AM CDT Reminder Msg for colonoscopy From: KIRSTIN GAUTHIER LPN To: NEDA HOFFMAN MD; IGNACIO BLEDSOE; Sent: 07/19/2011 08:43:23 CDT Show up: 10/18/2017 08:43:00 CDT Subject: Reminder Msg for colonoscopy Due Date/Time: 11/18/2017 08:43:00 CDT Please Remember to: Call patient to schedule a colonoscopy. Last done 11-19-07. Rescope in [address] Dominguez. PATIENT: ( ) Call Patient ( ) Ask Patient to ( ) ( ) Call Relative ( ) Schedule Patient ( ) ( ) Call for Manager Country ( ) Follow up on Results ( ) Other: PROVIDER: ( ) Call Physician ( ) Call Pharmacist ( ) Call Lab ( ) Other: Special Instructions: Comments: Source: [facility] [employer] Document Id: [id number] Miscellaneous - Neda Hoffman M.D. - 03/29/2011 2:00 PM CST Ambulatory Patient Summary [place] [id number] [facility] [place] [address] Visit Information Name: JACOB ANDINO Current Date: 03/29/2011 13:59:58 Primary Care Provider: NEDA HOFFMAN MD Your Medications Here is a list of your medications. It is important to take your medications as directed. Use a pillbox or chart to help remind you to take your medications. Please let your doctor or nurse know if you have problems taking your medications. Medication/Strength Dose Route Frequency Indications/Special Instructions/Comments naproxen (naproxen 500 mg oral tablet) 500 mg Oral two times a day as needed for pain cyclobenzaprine (Flexeril 10 mg oral tablet) 10 mg Oral three times a day as needed for Muscle spasm hydromorphone (hydromorphone 2 mg oral tablet) 2 mg Oral every 4 hours as needed for pain ondansetron (ondansetron 4 mg oral tablet) 4 mg Oral every 4 hours chlorthalidone (chlorthalidone 25 mg oral tablet) 25 mg Oral once a day furosemide (furosemide 80 mg oral tablet) 40 mg Oral once a day calcium-vitamin D (Calcium 600+D) Oral once a day multivitamin (multivitamin) Oral once a day aspirin (aspirin 81 mg oral tablet) 1 tab(s) Oral once a day Your Allergies & Intolerances Substance Reaction Symptoms Category Comments NKA Drug Your Problem List Problem Status Onset Comments Combined hyperlipidemia Active 01/11/2010 Fatigue* Active 01/11/2010 HTN [Hypertension] Active 01/11/2010 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 Screening Colonoscopy or Flex Sig or Occult Blood 11/19/2007 11/16/2017 Checks for signs of cancer of the colon. Screening Mammogram every 1 year Women 40-75 12/13/2010 12/14/2011 X-rays of breast to check for breast cancer. Lipid Panel every 5 years Age 20-75 01/11/2010 01/10/2015 Checks blood for good (HDL) and bad (LDL) cholesterol. Know your numbers, they are one indicator of your risk for heart attack and stroke. Vaccine: Flu every 1 year 03/29/2011 Immunization to help prevent you from getting [...] No Appointments found Your Goals/Additional instructions: Source: [facility] POWERCHART Document Id: [id number] POURER Miscellaneous - Neda Hoffman M.D. - 03/29/2011 1:59 PM CST Ambulatory Depart Summary [address] [address] Visit Information Name: JACOB ANDINO Current Date: 03/29/2011 13:59:56 Physicians Attending Physician: NEDA HOFFMAN MD Primary Care Provider: NEDA [...] medications. Medication/Strength Dose Route Frequency Indications/Special Instructions/Comments naproxen (naproxen 500 mg oral tablet) 500 mg Oral two times a day as needed for pain cyclobenzaprine (Flexeril 10 mg oral tablet) 10 mg Oral three times a day as needed for Muscle spasm hydromorphone (hydromorphone 2 mg oral tablet) 2 mg Oral every 4 hours as needed for pain ondansetron (ondansetron 4 mg oral tablet) 4 mg Oral every 4 hours chlorthalidone (chlorthalidone 25 mg oral tablet) 25 mg Oral once a day furosemide (furosemide 80 mg oral tablet) 40 mg Oral once a day calcium-vitamin D (Calcium 600+D) Oral once a day multivitamin (multivitamin) Oral once a day aspirin (aspirin 81 mg oral tablet) 1 tab(s) Oral once a day Additional Information: Yes - Current list of reconciled medications is provided and explained to the patient and/or family, guardian/caregiver. Source: [facility] POWERCHART Document Id: [id number] POURER Miscellaneous - Levi Maloney L.P.N. - 03/29/2011 1:43 PM CST Adult Under Cutter Intake/History Adult Under Cutter Intake/History Entered On: 03/29/2011 13:46 DOPE POURER Performed On: 03/29/2011 13:43 DOPE POURER by LEVI MALONEY LPN Intake Chief Complaint : pain in left hip and leg Peripheral Pulse Rate : 72/min Systolic Blood Pressure : 128mmHg Diastolic Blood Pressure : 64mmHg NIBP Mean : 85mmHg BP Location : Left upper extremity Blood Pressure Cuff Size : Regular Actual Weight : 70kg(Converted to: 154lb 5oz) Weight Source : Standing scale Dosing Weight Clinic : 70.00kg LEVI MALONEY LPN - 03/29/2011 13:43 DOPE POURER Subjective Pain Symptoms : Yes LEVI MALONEY LPN - 03/29/2011 13:43 DOPE POURER Pain Pain Assessment Grid Pain 1 Location : Hip Laterality : Left Intensity : 10 Time Pattern : Acute Onset : Sudden LEVI AMLONEY LPN - 03/29/2011 13:43 DOPE POURER Dependent Habits Tobacco Use/Currently Using : No Smoking Status : Never smoker Alcohol Use : No LEVI MALONEY LPN - 03/29/2011 13:43 DOPE POURER Caffeine Use Grid Caffeine Use : Current Type : Coffee Frequency : Daily LEVI MALONEY LPN - 03/29/2011 13:43 DOPE POURER Recreational Drug Use Grid Drug Use : None LEVI MALONEY LPN - 03/29/2011 13:43 DOPE POURER Allergy Allergies (Active) NKA Estimated Onset Date: Unspecified ; Created By: LEVI MALONEY LPN; Reaction Status: Active; Category: Drug ; Substance: NKA ; Type: Allergy ; Updated By: LEVI MALONEY LPN; Reviewed Date: 03/29/2011 13:39 DOPE POURER Source: [facility] [employer] Document Id: [id number] DOPE POURER!34 POURER documented in this encounter Plan of Treatment Not on filedocumented as of this encounter Visit Diagnoses Not on filedocumented in this encounter
--- OUTSIDE RECORDS SUMMARY | 2022-02-28 01:47 | XMS_ITS | Encounter Summary ---
:1940 Author Organization [facility] Address [address] [place] [address] Care Team Providers Name Role Phone Unavailable Primary Care Provider Unavailable Encounter Details Date Type Department Care Team Description 04/13/2011 Hospital Encounter HX [facility] FBHB INTERNMED Regulo Hoffman M.D. [address] [place] [address] 021 (Wo rk) Social History Tobacco Use Types Packs/Day Years Used Date Smoking Tobacco: Never Assessed Sex Assigned at Date Recorded Female 09/25/2017 1:20 PM CDT documented as of this encounter Last Filed Vital Signs Vital Sign Reading Time Taken Comments Blood Pressure 130/70 04/13/2011 10:20 AM CLIPPER MACHINE Pulse 88 04/13/2011 10:20 AM CLIPPER MACHINE Temperature - - Respiratory Rate - - Oxygen Saturation - - Inhaled Oxygen Concentration - - Weight 71.5 kg (157 lb 10.1 oz) 04/13/2011 10:20 AM CLIPPER MACHINE Height - - Body Mass Index - - documented in this encounter Medications at Time of Discharge Medication Sig Dispensed Refills Start Date End Date CALCIUM CARB/VIT Take 1 tablet by 0 01/11/2010 D3/MINERALS mouth daily. (CALCIUM-VITAMIN D ORAL) MULTIVITAMIN ORAL Take 1 tablet by 0 01/11/2010 mouth daily. documented as of this encounter Progress Notes Neda Hoffman M.D. - 04/13/2011 12:00 AM CST [id number] CHIEF COMPLAINT/ REASON FOR VISIT Back pain. Back pain is becoming complicated. The patient has now had it about 3 weeks. Initially it had got better and she was thinking of going back to work to the point that we actually road return to work slip but it has relapsed. She describes pain in the lumbar back which is somewhat bilateral but a little bit more to the left, that radiates down the leg on the lateral aspect at the leg to the foot. It sounds very much like a L5-S1 sciatica. The complication here is of course is when this pain started, she was seen in the [facility] and CT scan was putatively normal. This is always made it very difficult. I had a long talk with her today and as part of the process of reevaluation we are going to do re-imaging. I explained to her that the orthopedic surgeons would not be willing to look at any kind of operation unless there is a clearly herniating disc, and secondly it has been not responsive to conservative therapy for at least 6 weeks. The patient does not have bowel or bladder symptoms. She does not really have weakness in her leg. It is only sensory change that she feels. The pain has been formidable and Naproxen, Flexeril, prednisone, and the Vicodin have not touched it. Discussion was held today in detail about what further can be done and there is no magic. CURRENT MEDICATIONS Post-visit Medication Reconciliation Per [facility] electronic medical record. ALLERGIES Per electronic medical record. SYSTEMS REVIEW Review of systems in all areas except as mentioned above is negative. PREVENTIVE SERVICES No tobacco use. Handwashing done prior to patient contact. VITAL SIGNS Per electronic medical record. PHYSICAL EXAM SPINE: She is tender in the lumbar spine down toward the pelvic brim in the region of L4-S1. It is bilateral at that point, but then as one goes up the spine involves mostly the paravertebral muscles on the left. She can stand on her toes. She can walk on her heels. She is very limited in flexion and extension. She does like to twist laterally. The pain is described as going down the buttock out on the lateral aspect of the left leg all the way to the ankle. Straight leg raising is negative. Reflexia in the knees and ankles is normal. IMPRESSION/REPORT/PLAN 1. There are elements that suggest an S1 sciatica to the left. Against that is the negative straight leg raise and the fact that a CT scan early on was negative. Plan today was detailed in great care and she understands fully. With medicines. We will treat with oxycodone 10 milligrams p.o. every 4 hours p.r.n. a script for her to take to [facility] was prepared as that medicine cannot be faxed. She is to watch sedation carefully. 2. We will use Soma a stronger muscle relaxant and 350 milligrams every 6 hours p.r.n. warned of sedating effects. 3. We will find out who in [place] (Dr. Carbajal or the anesthesiologist at [facility]), could perform an epidural injection and I would like her to get an epidural injection as soon as possible. 4. She will be scheduled for re-imaging with an MRI at [facility]. The patient was comfortable with this approach Time component 45 minutes. DMB/lorrik Signed Neda Hoffman M.D. Internal Medicine Electronically Signed By: NEDA HOFFMAN MD On: 04/14/2011 01:14 PM Source: [facility] MHSDOLBEYNONRADSYS Document Id: [id number] PER MACHINE documented in this encounter Nursing Notes Levi Maloney L.PReginaNRegina - 04/13/2011 10:47 AM CST MRI patient scheduled for MRI lumbar spine 04/15/11 at 10:15am Electronically Signed By: LEVI MALONEY LPN On: 04/13/2011 10:48 AM Source: [facility] POWERCHART Document Id: [id number] PER MACHINE documented in this encounter Miscellaneous Notes Miscellaneous - Neda Hoffman M.D. - 04/13/2011 10:51 AM CST Ambulatory Patient Summary [address] [address] Visit Information Name: JACOB ANDINO Current Date: 04/13/2011 10:51:45 Primary Care Provider: NEDA HOFFMAN MD Your Medications Here is a list of your medications. It is important to take your medications as directed. Use a pillbox or chart to help remind you to take your medications. Please let your doctor or nurse know if you have problems taking your medications. Medication/Strength Dose Route Frequency Indications/Special Instructions/Comments oxycodone (oxycodone 10 mg oral tablet) 10 mg Oral every 4 hours carisoprodol (Soma 350 mg oral tablet) 350 mg Oral three times a day for 10 Days chlorthalidone (chlorthalidone 25 mg oral tablet) 25 [...] Additional Information Health Assessment every 1 year 04/13/2011 Screening Bone Density Once Women greater than age 64 04/13/2011 Checks for bone loss and osteoporosis. Screening [...] and stroke. Vaccine: Flu every 1 year 04/13/2011 Immunization to help prevent you from getting [...] No Appointments found Your Goals/Additional instructions: Source: [facility] POWERCHART Document Id: [id number] Neda Hopson M.D. - 04/13/2011 10:51 AM CST Ambulatory Depart Summary [address] [address] Visit Information Name: JACOB ANDINO Current Date: 04/13/2011 10:51:43 Attending Provider: NEDA HOFFMAN MD Primary Care [...] medications. Medication/Strength Dose Route Frequency Indications/Special Instructions/Comments oxycodone (oxycodone 10 mg oral tablet) 10 mg Oral every 4 hours carisoprodol (Soma 350 mg oral tablet) 350 mg Oral three times a day for 10 Days chlorthalidone (chlorthalidone 25 mg oral tablet) 25 mg Oral once a day furosemide (furosemide 80 mg oral tablet) 40 mg Oral once a day calcium-vitamin D (Calcium 600+D) Oral once a day multivitamin (multivitamin) Oral once a day aspirin (aspirin 81 mg oral tablet) 1 tab(s) Oral once a day Additional Information: Source: [facility] [employer] Document Id: [id number] Levi Chpain L.P.N. 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 Intake/History Entered On: 04/13/2011 10:23 CLIPPER MACHINE Performed On: 04/13/2011 10:20 CLIPPER MACHINE by LEVI MALONEY LPN Intake Chief Complaint : recheck pain in left leg and back Peripheral Pulse Rate : 88/min Systolic Blood Pressure : 130mmHg Diastolic Blood Pressure : 70mmHg NIBP Mean : 90mmHg BP Location : Left upper extremity Blood Pressure Cuff Size : Large Actual Weight : 71.5kg(Converted to: 157lb 10oz) Weight Source : Standing scale Dosing Weight Clinic : 71.50kg LEVI MALONEY LPN - 04/13/2011 10:20 CLIPPER MACHINE Subjective Pain Symptoms : Yes LEVI MALONEY LPN - 04/13/2011 10:20 CLIPPER MACHINE Pain Pain Assessment Grid Pain 1 Location : Upper leg Laterality : Left Intensity : 10 Time Pattern : Acute Quality : Aching LEVI MALONEY LPN - 04/13/2011 10:20 CLIPPER MACHINE Dependent Habits Tobacco Use/Currently Using : No Smoking Status : Never smoker LEVI MALONEY LPN - 04/13/2011 10:20 CLIPPER MACHINE Caffeine Use Grid Caffeine Use : Current Type : Coffee Frequency : Daily LEVI MALONEY LPN - 04/13/2011 10:20 CLIPPER MACHINE Recreational Drug Use Grid Drug Use : None LEVI MALONEY LPN - 04/13/2011 10:20 CLIPPER MACHINE Allergy Allergies (Active) NKA Estimated Onset Date: Unspecified ; Created By: LEVI MALONEY LPN; Reaction Status: Active; Category: Drug ; Substance: NKA ; Type: Allergy ; Updated By: LEVI MALONEY LPN; Reviewed Date: 04/13/2011 10:17 CLIPPER MACHINE Source: [facility] POWERCHART Document Id: [id number] CLIPPER MACHINE!33 PER MACHINE documented in this encounter Plan of Treatment Not on filedocumented as of this encounter Visit Diagnoses Not on filedocumented in this encounter
--- OUTSIDE RECORDS SUMMARY | 2022-02-28 01:47 | XMS_ITS | Encounter Summary ---
:1940 Author Organization [facility] Address [address] [place] [address] Care Team Providers Name Role Phone Unavailable Primary Care Provider Unavailable Encounter Details Date Type Department Care Team Description 01/11/2010 Hospital Encounter HX [facility] INTERNMED Regulo Hoffman M.D. [address] [place] [address] 021 (Wo rk) Social History Tobacco Use [...] mouth daily. documented as of this encounter H&P Notes Neda Hoffman M.D. - 01/11/2010 12:00 AM CDT [id number] IMPRESSION/REPORT/PLAN ACTIVE PROBLEMS 1. Hypertension, good control of blood pressure. We will not make any change in her medication. Check electrolytes today. 2. Malaise and fatigue, probably constitutional. Nothing clearly found on examination. Check laboratories to rule out metabolic problems. 3. Venous stasis with peripheral dermatitis of the lower extremities, doing quite well. Continue [employer] Fast Fit support stockings. Skin care excellent. 4. Mild peripheral vascular disease. - LDL is being checked today - Blood pressure today 128/70 - Positive aspirin - No tobacco We will see what the LDL comes back. INACTIVE PROBLEMS Please see past medical history. INACTIVE PROBLEMS Please see past medical history. HEALTH MAINTENANCE CONCERNS Instructed to have a complete physical examination once a year, to see an set decorator or boiler cleaner once a year for glaucoma screening, and [...] each day, and get good aerobic exercise. STUDIES DONE TODAY 1. Urinalysis with micro 2. Hemoglobin 3. Lipid panel 4. TSH 5. Basic metabolic panel We will call her with the results of her tests. CHIEF COMPLAINT/REASON FOR VISIT Preventive medicine visit with acute problems. HISTORY OF PRESENT ILLNESS Acute problems 1. Malaise and fatigue. The patient is experiencing some malaise and fatigue. She is not very concerned about this. She feels it is probably constitutional or related to aging, but she wants to be sure there are no metabolic abnormalities. 2. Hypertension. Blood pressure control is excellent. She has no symptoms referable to this. We will check electrolytes. 3. Dyslipidemia. The patient has had elevated cholesterols in the past. She has been working hard on her diet and wants to have her cholesterols rechecked to see if she has brought them down. CURRENT MEDICATIONS Post-visit Medication Reconciliation Per [facility] electronic medical record. ALLERGIES Per [facility] electronic medical record. SYSTEMS REVIEW Review of systems in all areas is asked about and is negative, except as mentioned above. PAST MEDICAL/SURGICAL HISTORY 1. Hypertension 2. Venous [...] SERVICES Age: 69. Diphtheria/Tetanus: 07/09/2005. 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 Pneumovax: 07/09/2005. Varivax: 02/12/2007. Colon screening: Colonoscopy 11/19/2007. Low risk. Mammogram: 12/10/2009, negative. Lipid screenin01/11/2010. Pelvic exam: 01/2008. Pap smear: Status post-hysterectomy. DEXA scan: 02/2008. Due again in 02/2010. Tobacco: No tobacco use. Handwashing done prior to patient contact. SOCIAL HISTORY Her about 15 years ago from prostate cancer. She does not smoke or drink alcohol, although she had heavy secondhand smoke exposure in the past, but she does not have it now. FAMILY HISTORY There is a family history of coronary artery disease with her brother having a myocardial infarction in his 40s. She has two sons, one of whom had a stroke due to a blood clot. She has no first degree relative with a history of colorectal, breast, cervical, ovarian or uterine cancer. VITAL SIGNS Per [facility] electronic medical record. PHYSICAL EXAM AREA EXAM TEXT SKIN Inspection of the skin and subcutaneous tissue reveals nothing inconsistent with age. EYES PERRLA, EOMs normal, sclera nonicteric, fundi sharp discs bilaterally without diabetic or hypertensive changes. ENT Tympanic membranes okay on both sides. Hearing grossly normal to scratch test. Nasal mucosa without erythema or congestion. No sinus tenderness. Mouth without erythema or exudate, no leuko or erythroplakia. [place] teeth top and bottom. Dental hygiene good. LYMPH Neck is supple. No adenopathy. Carotid upstrokes are brisk NODES and without bruits. THYROID No thyromegaly. BREASTS Palpation of the breasts is without mass or discharge. There is no axillary or supraclavicular adenopathy. There is no nipple inversion or dimpling of the skin. PERIPHERAL There are good femoral, popliteal and dorsalis pedis pulses VESSELS bilaterally, although they are slightly weaker on the right. There are no bruits over the femoral arteries. HEART CVP is normal at 7-8 cm. of water or less. There is a normal systolic collapse of the JVP. There is not a positive HJR. Palpation of the precordium is quiet, no evidence of right or left ventricular dilatation. Cardiac auscultation reveals a regular rate and rhythm, S1 sounds normal, S2 is normal; there is no significant murmur, gallop or rub. LUNGS Normal respiratory rate and effort. Clear to auscultation and percussion. ABDOMEN Soft, nondistended, there is no organomegaly, no focal mass or tenderness. The abdominal aorta is not enlarged to palpation. There are no bruits over the abdomen. There are no hernias. She has a transverse lower quadrant midline incision from WILFREDO/BSO with no incisional hernia. She has a right upper quadrant incision, well healed, no incisional hernia, from previous gallbladder operation. No costovertebral angle tenderness. RECTUM External exam shows skin tags reminiscent of past external hemorrhoid disease, no active external hemorrhoids. Internal exam reveals a smooth rectal vault, no mass or induration, no tenderness; brown stool, guaiac negative. GENITALIA Normal appearing external genitalia. Internal exam reveals an empty vaginal vault. Bimanual exam reveals no masses or tenderness in the uterine or adnexal areas. SPINE No cervical, thoracic or lumbar tenderness to deep palpation. EXTREMITIES Warm, dry and noncyanotic without clubbing or peripheral edema. Toenails have onychomycosis bilaterally. GAIT Gait is normal. NEURO Cranial nerves II-XII are grossly intact. Reflexes in the upper and lower extremities are bilaterally symmetric. Toes are down-going. There is no dysmetria. Light touch testing in the lower extremities is normal. DMB/nmd Signed Neda Hoffman M.D. Internal Medicine Electronically Signed By:NEDA HOFFMAN MD On 01/26/2010 12:45 PM Source: [facility] MHSDOLBEYNONRADSYS Document Id: [id number] documented in this encounter Miscellaneous Notes Miscellaneous - Neda Hoffman M.D. - 01/14/2010 12:40 PM CDT Reminder Ms Document Contains Addenda Addendum by FÉLIX HERNANDEZ on 14 January 2010 17:30:23 CDT Phoned patient with report 01/14/2010 From: FRANCHESCA MCCARTNEY MD To: FÉLIX HERNANDEZ Sent: 01/14/2010 12:40:49 CDT ! Show up: 01/14/2010 12:40:00 CDT Subject: Reminder Msg Actions: Notify patient of results Due Date/Time: 01/14/2010 12:40:00 CDT Source: [facility] [employer] Document Id: [id number] Electronically signed by Conversion, [facility] [employer] [id number] at 08/29/2016 12:20 AM CDT Miscellaneous - Neda Hoffman M.D. - 01/11/2010 10:46 AM CDT Reminder Msg Document Contains Addenda Addendum by LEVI MALONEY LPN on 11 January 2010 16:51:30 CDT called with results From: NEDA HOFFMAN MD To: LEVI MALONEY LPN Sent: 01/11/2010 10:46:54 CDT ! Show up: 01/11/2010 10:46:00 CDT Subject: Reminder Msg Actions: Notify patient of results Due Date/Time: 01/11/2010 10:46:00 CDT [facility] P[facility] Document Id: [id number] Electronically signed by Conversion, [facility] [employer] [id number] at 08/29/2016 12:20 AM CDT Miscellaneous - Levi Maloney, LReginaP.N. 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 Accelerator Operator Intake/History Entered On: 01/11/2010 8:55 CDT Performed On: 01/11/2010 8:52 CDT by LEVI MALONEY LPN Intake Chief Complaint: complete exam Peripheral Pulse Rate: 76/min Systolic Blood Pressure: 128mmHg Diastolic Blood Pressure: 70mmHg NIBP Mean: 89mmHg BP Location: Left upper extremity Height: 155.00cm(Converted to: 5ft 1in, 61.02in) Actual Weight: 69.500kg(Converted to: 153lb 4oz) Weight Source: Standing scale Dosing Weight Clinic: 69.50kg Clinic BSA: 1.73 Body Mass Index: 29kg/m2 LEVI MALONEY LPN - 01/11/2010 8:52 CDT Subjective Pain Symptoms: No LEVI MALONEY LPN - 01/11/2010 8:52 CDT Dependent Habits Tobacco Use/Currently Using: No Alcohol Use: No LEVI MAOLNEY LPN - 01/11/2010 8:52 CDT Caffeine Use Grid Caffeine Use: Current Type: Coffee Frequency: Daily LEVI MALONEY LPN - 01/11/2010 8:52 CDT Recreational Drug Use Grid Drug Use: None LEVI MALONEY LPN - 01/11/2010 8:52 CDT Allergies Latex Screening: No LEVI MALONEY LPN - 01/11/2010 8:52 CDT Allergies (Active) NKA Estimated Onset Date: Unspecified ; Created By: LEVI MALONEY LPN; Reaction Status: Active; Category: Drug ; Substance: NKA ; Type: Allergy ; Updated By: LEVI MALONEY LPN; Reviewed Date: 01/11/2010 8:51 CDT Source: [facility] POWERCHART Document Id: [id number] CDT!29 documented in this encounter Plan of Treatment Not on filedocumented as of this encounter Visit Diagnoses Not on filedocumented in this encounter
--- OUTSIDE RECORDS SUMMARY | 2022-02-28 01:47 | XMS_ITS | Encounter Summary ---
:1940 Author Organization [facility] Address [address] [place] [address] Care Team Providers Name Role Phone Unavailable Primary Care Provider Unavailable Encounter Details Date Type Department Care Team Description 08/02/2010 Hospital Encounter HX [facility] INTERNMED Regulo Hoffman M.D. [address] [place] [address] 021 (Wo rk) Social History Tobacco Use [...] encounter Progress Notes Neda Hoffman M.D. - 08/02/2010 12:00 AM CDT [id number] CHIEF COMPLAINT/ REASON FOR VISIT Recheck on edema. HISTORY OF PRESENT ILLNESS We have gradually been working with her water pills and frankly have been unable to get any weight off of her at all. She still shows +1 edema in both of her legs. Her weight is categorically unchanged. This is despite 20 milligrams of furosemide daily and 12.5 milligrams of chlorthalidone every other day. After discussion with her today, she wants quick improvement so we will increase Lasix quite a bit and I will see her in a week. CURRENT MEDICATIONS Post-visit Medication Reconciliation Please see [facility] electronic medical record. ALLERGIES Per [facility] electronic medical record. SYSTEMS REVIEW Review of systems in all areas is negative except as mentioned above. PAST MEDICAL/SURGICAL HISTORY Per [facility] electronic medical record. PREVENTIVE SERVICES Per [facility] electronic medical record. Handwashing done prior to patient contact. VITAL SIGNS Per [facility] electronic medical record. PHYSICAL EXAM AREA EXAM TEXT EXTREMITIES Examination of the legs reveals +1 edema bilaterally. IMPRESSION/REPORT/PLAN Venous stasis edema, not responding to diuretics so far. Continue chlorthalidone 12.5 milligrams every other day and increase furosemide to 80 milligrams daily. I will see her in a week and check electrolytes. DMB/nmd Signed Neda Hoffman M.D. Internal Medicine Electronically Signed By: NEDA HOFFMAN MD On: 08/03/2010 10:47 Source: [facility] MHSDOLBEYNONRADSYS Document Id: [id number] documented in this encounter Miscellaneous Notes Miscellaneous - Neda Hoffman M.D. - 08/02/2010 1:59 PM CDT Ambulatory Patient Summary [address] [address] Visit Information Name: JACOB ANDINO Current Date: 08/02/2010 13:58:58 Primary Care Provider: NEDA HOFFMAN MD Your Medications Here is a list of your medications. It is important to take your medications as directed. Use a pillbox or chart to help remind you to take your medications. Please let your doctor or nurse know if you have problems taking your medications. Medication/Strength Dose Route Frequency Indications/Special Instructions/Comments furosemide (furosemide 80 mg oral tablet) 80 mg Oral once a day chlorthalidone (chlorthalidone 25 mg oral tablet) 1/2 tab Oral every other day calcium-vitamin D (Calcium 600+D) Oral once [...] Density Once Women greater than age 64 08/02/2010 Checks for bone loss and osteoporosis. Screening [...] and stroke. Vaccine: Flu every 1 year 08/02/2010 Immunization to help prevent you from getting [...] No Appointments found Your Goals/Additional instructions: Source: [facility] POWERCHART Document Id: [id number] Miscellaneous - Neda Hoffman M.D. - 08/02/2010 1:58 PM CDT Ambulatory Depart Summary [address] [address] Visit Information Name: JACOB ANDINO Current Date: 08/02/2010 13:58:57 Primary Care Provider: NEDA HOFFMAN MD JACOB ANDINO has been given the following list of medications: Your Medications It is important to take your medications as directed. Use a pill box or chart to help remind you to take your medications. Please let your doctor or nurse know if you have problems taking your medications. Medication/Strength Dose Route Frequency Indications/Special Instructions/Comments furosemide (furosemide 80 mg oral tablet) 80 mg Oral once a day chlorthalidone (chlorthalidone 25 mg oral tablet) 1/2 tab Oral every other day calcium-vitamin D (Calcium 600+D) Oral once a day multivitamin (multivitamin) Oral once a day aspirin (aspirin 81 mg oral tablet) 1 tab(s) Oral once a day Additional Information: Yes - Current list of reconciled medications is provided and explained to the patient and/or family, guardian/caregiver. Source: [facility] POWERCHART Document Id: [id number] Miscellaneous - Levi Maloney L.PReginaNRegina - 08/02/2010 1:39 PM CDT Adult Head Batcher Intake/History Adult Head Batcher Intake/History Entered On: 08/02/2010 13:41 CDT Performed On: 08/02/2010 13:39 CDT by LEVI MALONEY LPN Intake Chief Complaint: recheck Peripheral Pulse Rate: 60/min Systolic Blood Pressure: 122mmHg Diastolic Blood Pressure: 64mmHg NIBP Mean: 83mmHg BP Location: Left upper extremity Actual Weight: 71.000kg(Converted to: 156lb 8oz) Weight Source: Standing scale Dosing Weight Clinic: 71.00kg LEVI MALONEY LPN - 08/02/2010 13:39 CDT Subjective Pain Symptoms: No LEVI MALONEY LPN - 08/02/2010 13:39 CDT Dependent Habits Tobacco Use/Currently Using: No Alcohol Use: No LEVI MALONEY LPN - 08/02/2010 13:39 CDT Caffeine Use Grid Caffeine Use: Current Type: Coffee Frequency: Daily LEVI MALONEY LPN - 08/02/2010 13:39 CDT Recreational Drug Use Grid Drug Use: None LEVI MALONEY LPN - 08/02/2010 13:39 CDT Allergy Allergies (Active) NKA Estimated Onset Date: Unspecified ; Created By: LEVI MALONEY LPN; Reaction Status: Active; Category: Drug ; Substance: NKA ; Type: Allergy ; Updated By: LEVI MALONEY LPN; Reviewed Date: 08/02/2010 13:38 CDT Source: [facility] [employer] Document Id: [id number] CDT!24 documented in this encounter Plan of Treatment Not on filedocumented as of this encounter Visit Diagnoses Not on filedocumented in this encounter
--- OUTSIDE RECORDS SUMMARY | 2022-02-28 01:47 | XMS_ITS | Encounter Summary ---
:1940 Author Organization [facility] Address [address] [place] [address] Care Team Providers Name Role Phone Unavailable Primary Care Provider Unavailable Encounter Details Date Type Department Care Team Description 05/18/2010 Hospital Encounter HX [facility] INTERNMED Regulo Hoffman M.D. [address] [place] [address] 021 (Wo rk) Social History Tobacco Use [...] encounter Progress Notes Neda Hoffman M.D. - 05/18/2010 12:00 AM CST [id number] CHIEF COMPLAINT/ REASON FOR VISIT Pain in left leg. HISTORY OF PRESENT ILLNESS For about one week, the patient has noticed increasing redness and pain at the site of a previous biopsy for a skin cancer in the left leg. There is a large scar on the medial aspect of her left lower extremity from where the skin cancer was removed. It is not normally, however, red in this area nor painful. She now has developed some surrounding redness and induration and pain in this area. No chills or sweats. CURRENT MEDICATIONS Post-visit Medication Reconciliation Please see [facility] electronic medical record. ALLERGIES Per [facility] electronic medical record. SYSTEMS REVIEW Review of systems in all areas is negative except as mentioned above. PAST MEDICAL/SURGICAL HISTORY Per [facility] electronic medical record. PREVENTIVE SERVICES Per [facility] electronic medical record. Handwashing done prior to patient contact. VITAL SIGNS Per [facility] electronic medical record. PHYSICAL EXAM AREA EXAM TEXT EXTREMITIES Examination of her left lower extremity reveals a clear scar from where the biopsy and skin cancer was removed. Surrounding the area there is redness and warmth. There is some induration. There are some satellite red lesions. IMPRESSION/REPORT/PLAN Early cellulitis, left lower extremity. Keep the leg elevated as much as possible. Start Augmentin 500 milligrams twice daily times 10 days. It was recommended that she take a carton of Activia once a day to help mitigate diarrhea from Augmentin. She will us call if not improved. DMB/nmd Signed Neda Hoffman M.D. Internal Medicine Electronically Signed By: NEDA HOFFMAN MD On: 05/19/2010 07:49 Source: [facility] MHSDOLBEYNONRADSYS Document Id: [id number] T SUBMERSIBLE documented in this encounter Miscellaneous Notes Miscellaneous - Neda Hoffman M.D. - 05/18/2010 3:07 PM CST Ambulatory Patient Summary [address] [address] Visit Information Name: JACOB ANDINO Current Date: 05/18/2010 15:07:31 Primary Care Provider: NEDA HOFFMAN MD Your [...] Density Once Women greater than age 64 05/18/2010 Checks for bone loss and osteoporosis. Screening [...] and stroke. Vaccine: Flu every 1 year 05/18/2010 Immunization to help prevent you from getting [...] No Appointments found Your Goals/Additional instructions: Source: [facility] POWERCHART Document Id: [id number] Electronically signed by Conversion, [facility] Panel Lay Up Worker [id number] at 08/28/2016 12:22 PM CDT Miscellaneous - Neda Hoffman M.D. - 05/18/2010 3:07 PM CST Ambulatory Depart Summary [facility] - [address] [address] Visit Information Name: JACOB ANDINO Current Date: 05/18/2010 15:07:31 Primary Care Provider: NEDA HOFFMAN MD JACOB [...] to the patient and/or family, guardian/caregiver. Source: [facility] POWERCHART Document Id: [id number] Electronically signed by [facility] Panel Lay Up Worker [id number] at 08/28/2016 12:22 PM CDT Miscellaneous - Levi Maloney LReginaPReginaN. 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 Intake/History Entered On: 05/18/2010 15:02 PILOT SUBMERSIBLE Performed On: 05/18/2010 14:59 PILOT SUBMERSIBLE by LEVI MALONEY LPN Intake Chief Complaint: left leg red and swollen Temperature Core: 37.0C(Converted to: 98.6DegF) Peripheral Pulse Rate: 62/min Systolic Blood Pressure: 122mmHg Diastolic Blood Pressure: 70mmHg NIBP Mean: 87mmHg BP Location: Left upper extremity Heart Rhythm: Regular Actual Weight: 70.000kg(Converted to: 154lb 5oz) Dosing Weight Clinic: 70.00kg LEVI MALONEY LPN - 05/18/2010 14:59 PILOT SUBMERSIBLE Subjective Pain Symptoms: No LEVI MALONEY LPN - 05/18/2010 14:59 PILOT SUBMERSIBLE Dependent Habits Tobacco Use/Currently Using: No LEVI MALONEY LPN - 05/18/2010 14:59 PILOT SUBMERSIBLE Caffeine Use Grid Caffeine Use: Current Type: Coffee Frequency: Daily LEVI MALONEY LPN - 05/18/2010 14:59 PILOT SUBMERSIBLE Recreational Drug Use Grid Drug Use: None LEVI MALONEY LPN - 05/18/2010 14:59 PILOT SUBMERSIBLE Allergies Latex Screening: No LEVI MALONEY LPN - 05/18/2010 14:59 PILOT SUBMERSIBLE Allergies (Active) NKA Estimated Onset Date: Unspecified ; Created By: LEVI AMLONEY LPN; Reaction Status: Active; Category: Drug ; Substance: NKA ; Type: Allergy ; Updated By: LEVI MALONEY LPN; Reviewed Date: 05/18/2010 14:58 PILOT SUBMERSIBLE Source: [facility] [employer] Document Id: [id number] PILOT SUBMERSIBLE!26 T SUBMERSIBLE documented in this encounter Plan of Treatment Not on filedocumented as of this encounter Visit Diagnoses Not on filedocumented in this encounter
--- OUTSIDE RECORDS SUMMARY | 2022-02-28 01:47 | XMS_ITS | Encounter Summary ---
:1940 Author Organization [facility] Address [address] [place] [address] Care Team Providers Name Role Phone Unavailable Primary Care Provider Unavailable Encounter Details Date Type Department Care Team Description 09/06/2010 Hospital Encounter HX [facility] INTERNMED Regulo Hoffman M.D. [address] [place] [address] 021 (Wo rk) Social History Tobacco Use [...] encounter Progress Notes Neda Hoffman M.D. - 09/06/2010 12:00 AM CDT [id number] CHIEF COMPLAINT/REASON FOR VISIT Recheck on edema in the legs. HISTORY OF PRESENT ILLNESS The patient returns today to recheck on the edema in her legs. We have been trying every machination possible to bring her edema in the legs down and today it is better. I cannot explain that because her weight is actually 0.5 kilogram up, but her ankles are skinny and not pitting. I have no explanation for it. Anyway, she is comfortable with what she has at the moment. So if her potassium is okay, she is comfortable to stay on that. We discussed her preventive care. She is due for a physical in December and she needs to contact her new insurance company and find out if it is paying for preventive care. We can code differently if it is not. CURRENT MEDICATIONS Post-visit Medication Reconciliation Please see [facility] electronic medical record. ALLERGIES Per [facility] electronic medical record. SYSTEMS REVIEW Review of systems in all areas is negative except as mentioned above. PAST MEDICAL/SURGICAL HISTORY Per [facility] electronic medical record. PREVENTIVE SERVICES Per [facility] electronic medical record. Handwashing done prior to patient contact. VITAL SIGNS Per [facility] electronic medical record. PHYSICAL EXAM AREA EXAM TEXT EYES Conjunctiva and lids are normal. Pupils are equal, round, reactive to light and accommodation. Extraocular movements normal. Sclera nonicteric. Ophthalmologic exam is grossly normal. ENT Tympanic membranes look okay [...] significant murmur, no gallop. LUNGS Lung mitchell are clear to auscultation and percussion with normal respiratory rate and effort. EXTREMITIES Her ankles are sharp without pitting edema in the lower extremities. IMPRESSION/REPORT/PLAN Pitting edema finally resolved. She will remain on 40 milligrams of furosemide and 25 milligrams of chlorthalidone as long as her electrolytes are balanced. STUDY DONE TODAY Basic metabolic panel. We will call her this afternoon with the results. DMB/nmd Signed Neda Hoffman M.D. Internal Medicine Electronically Signed By: NEDA HOFFMAN MD On: 09/07/2010 08:36 AM Source: [facility] MHSDOLBEYNONRADSYS Document Id: [id number] documented in this encounter Miscellaneous Notes Miscellaneous - Neda Hoffman M.D. - 09/06/2010 1:06 PM CDT Results Notification Document Contains Addenda Addendum by LEVI MALONEY LPN on 06 September 2010 13:11:21 CDT called with results From: NEDA HOFFMAN MD To: LEVI MALONEY LPN Sent: 09/06/2010 13:06:44 CDT ! 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 Entered On: 09/06/2010 10:16 CDT Performed On: 09/06/2010 10:14 CDT by LEVI MALONEY LPN Intake Chief Complaint: recheck Peripheral Pulse Rate: 76/min Systolic Blood Pressure: 126mmHg Diastolic Blood Pressure: 64mmHg NIBP Mean: 85mmHg BP Location: Left upper extremity Heart Rhythm: Regular Actual Weight: 70.500kg(Converted to: 155lb 7oz) Weight Source: Standing scale Dosing Weight Clinic: 70.50kg LEVI MALONEY LPN - 09/06/2010 10:14 CDT Subjective Pain Symptoms: No LEVI MALONEY LPN - 09/06/2010 10:14 CDT Dependent Habits Tobacco Use/Currently Using: No Alcohol Use: No LEVI MALONEY LPN - 09/06/2010 10:14 CDT Caffeine Use Grid Caffeine Use: Current Type: Coffee Frequency: Daily LEVI MALONEY LPN - 09/06/2010 10:14 CDT Recreational Drug Use Grid Drug Use: None LEVI MALONEY LPN - 09/06/2010 10:14 CDT Allergy Allergies (Active) NKA Estimated Onset Date: Unspecified ; Created By: LEVI MALONEY LPN; Reaction Status: Active; Category: Drug ; Substance: NKA ; Type: Allergy ; Updated By: LEVI MALONEY LPN; Reviewed Date: 09/06/2010 10:14 CDT Source: [facility] Ornicept Document Id: [id number] CDT!25 documented in this encounter Plan of Treatment Not on filedocumented as of this encounter Visit Diagnoses Not on filedocumented in this encounter
--- OUTSIDE RECORDS SUMMARY | 2022-02-28 01:47 | XMS_ITS | Encounter Summary ---
:1940 Author Organization [facility] Address [address] [place] [address] Care Team Providers Name Role Phone Unavailable Primary Care Provider Unavailable Encounter Details Date Type Department Care Team Description 08/19/2010 Hospital Encounter HX [facility] INTERNMED Regulo Hoffman M.D. [address] [place] [address] 021 (Wo rk) Social History Tobacco Use [...] encounter Progress Notes Neda Hoffman M.D. - 08/19/2010 12:00 AM CDT [id number] CHIEF COMPLAINT/REASON FOR VISIT Recheck on edema in legs. HISTORY OF PRESENT ILLNESS The patient is getting problems that are actually questioning the whole rationale for continuing to push regarding the edema in her legs. When taking 80 milligrams of furosemide and 12.5 milligrams of chlorthalidone, the patient developed cramps and got up out of bed to handle her bilateral leg cramps and ended up falling and abrading her elbow and almost knocking herself out. This is getting dangerous. Despite this, the patient wishes to keep persisting to try get edema out of the legs. I think we are going to have to change course at some point. Now, when she was on furosemide 80 milligrams and chlorthalidone 12.5 milligrams, she was 4 pounds chemist enzymes than today. The edema is somewhat better according to her report, but it is not as good as it was when she was 4 pounds chemist enzymes. CURRENT MEDICATIONS Post-visit Medication Reconciliation Please see [facility] electronic medical record. ALLERGIES Per [facility]. PHYSICAL EXAM Area/Exam Text EXTREMITIES: She has +1 edema in her legs bilaterally. IMPRESSION/REPORT/PLAN Edema in legs. We will try one more change of course. She will take half of an 80 milligram furosemide pill or 40 milligrams daily and try 25 milligrams or a full chlorthalidone pill. She remains at two potassium 20 milliequivalents pills daily. I will check electrolytes today and if the potassium is low I am not willing to continue pushing forward on this approach. She was comfortable with this. STUDY DONE TODAY Basic metabolic panel DMB/nmd Signed Neda Hoffman M.D. Internal Medicine Electronically Signed By: NEDA HOFFMAN MD On: 08/25/2010 11:50 AM Source: [facility] MHSDOLBEYNONRADSYS Document Id: [id number] documented in this encounter Miscellaneous Notes Miscellaneous - Neda Hoffman M.D. - 08/19/2010 4:17 PM CDT Results Notification Document Contains Addenda Addendum by LEVI MALONEY LPN on 19 Aug 2010 16:20:42 CDT called with results From: NEDA HOFFMAN MD To: LEVI MALONEY GERARDO Sent: 08/19/2010 16:17:23 CDT ! Show up: 08/19/2010 16:16:00 CDT Subject: Results Notification Actions: Notify patient of results Due Date/Time: 08/19/2010 16:16:00 CDT Source: [facility] POWERCHART Document Id: [id number] Miscellaneous - Neda Hoffman M.D. - 08/19/2010 3:39 PM CDT Ambulatory Patient Summary [address] [address] Visit Information Name: JACOB ANDINO Current Date: 08/19/2010 15:39:07 Primary Care Provider: NEDA HOFFMAN MD Your Medications Here is a list of your medications. It is important to take your medications as directed. Use a pillbox or chart to help remind you to take your medications. Please let your doctor or nurse know if you have problems taking your medications. Medication/Strength Dose Route Frequency Indications/Special Instructions/Comments potassium chloride (potassium chloride 20 mEq oral tablet, extended release) 1 tab(s) Oral two timesa day furosemide (furosemide 80 mg oral tablet) 80 mg Oral once a day chlorthalidone (chlorthalidone 25 mg oral tablet) 1/2 tab Oral once a day calcium-vitamin D (Calcium [...] Density Once Women greater than age 64 08/19/2010 Checks for bone loss and osteoporosis. Screening Colonoscopy or Flex Sig or Occult Blood X3 11/19/2007 11/16/2017 Checks [...] and stroke. Vaccine: Flu every 1 year 08/19/2010 Immunization to help prevent you from getting [...] No Appointments found Your Goals/Additional instructions: Source: [facility] POWERCHART Document Id: [id number] Miscellaneous - Neda Hoffman M.D. - 08/19/2010 3:39 PM CDT Ambulatory Depart Summary [address] [address] Visit Information Name: JACOB ANDINO Current Date: 08/19/2010 15:39:06 Primary Care Provider: NEDA HOFFMAN MD JACOB ANDINO has been given the following list of medications: Your Medications It is important to take your medications as directed. Use a pill box or chart to help remind you to take your medications. Please let your doctor or nurse know if you have problems taking your medications. Medication/Strength Dose Route Frequency Indications/Special Instructions/Comments potassium chloride (potassium chloride 20 mEq oral tablet, extended release) 1 tab(s) Oral two timesa day furosemide (furosemide 80 mg oral tablet) 80 mg Oral once a day chlorthalidone (chlorthalidone 25 mg oral tablet) 1/2 tab Oral once a day calcium-vitamin D (Calcium 600+D) Oral once a day multivitamin (multivitamin) Oral once a day aspirin (aspirin 81 mg oral tablet) 1 tab(s) Oral once a day Additional Information: Yes - Current list of reconciled medications is provided and explained to the patient and/or family, guardian/caregiver. Source: [facility] POWERCHART Document Id: [id number] Miscellaneous - Levi Maloney L.P.N. 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 Peripheral Pulse Rate: 64/min Systolic Blood Pressure: 122mmHg Diastolic Blood Pressure: 62mmHg NIBP Mean: 82mmHg BP Location: Left upper extremity Heart Rhythm: Regular Actual Weight: 70.000kg(Converted to: 154lb 5oz) Weight Source: Standing scale Dosing Weight Clinic: 70.00kg LEVI MALONEY LPN - 08/19/2010 15:10 CDT Subjective Pain Symptoms: No LEVI MALONEY LPN - 08/19/2010 15:10 CDT Dependent Habits Tobacco Use/Currently Using: No Alcohol Use: No LEVI MALONEY LPN - 08/19/2010 15:10 CDT Caffeine Use Grid Caffeine Use: Current Type: Coffee Frequency: Daily LEVI MALONEY LPN - 08/19/2010 15:10 CDT Recreational Drug Use Grid Drug Use: None LEVI MALONEY LPN - 08/19/2010 15:10 CDT Allergy Allergies (Active) NKA Estimated Onset Date: Unspecified ; Created By: LEVI MALONEY LPN; Reaction Status: Active; Category: Drug ; Substance: NKA ; Type: Allergy ; Updated By: LEVI MALONEY LPN; Reviewed Date: 08/09/2010 10:14 CDT Source: [facility] BazaartCHART Document Id: [id number] CDT!25 documented in this encounter Plan of Treatment Not on filedocumented as of this encounter Visit Diagnoses Not on filedocumented in this encounter
--- OUTSIDE RECORDS SUMMARY | 2022-02-28 01:47 | XMS_ITS | Encounter Summary ---
:[address] [facility] Address [address] [place] [address] Care Team Providers Name Role Phone Unavailable Primary Care Provider Unavailable Encounter Details Date Type Department Care Team Description 07/19/2010 Hospital Encounter HX [facility] FBHB INTERNMED Regulo Hoffman M.D. [address] [place] [address] 021 (Wo rk) Social History Tobacco Use [...] encounter Progress Notes Neda Hoffman M.D. - 07/19/2010 12:00 AM CDT [id number] CHIEF COMPLAINT/ REASON FOR VISIT Recheck on edema. HISTORY OF PRESENT ILLNESS The patient stopped chlorthalidone 25 milligrams daily on the last visit and went on furosemide 20 milligrams daily. Her weight is categorically the same. She neither lost weight nor gained weight. She still has +1 edema in both legs. At times it is worse than this. Obviously, we are not going to get anywhere with 20 milligrams of furosemide daily. She does have chlorthalidone at home, so we will work out a program with that. CURRENT MEDICATIONS Post-visit Medication Reconciliation Please see [facility] electronic medical record. ALLERGIES Per [facility] electronic medical record. SYSTEMS REVIEW Review of systems in all areas is negative except as mentioned above. PAST MEDICAL/SURGICAL HISTORY Per [facility] electronic medical record. PREVENTIVE SERVICES Per [facility] electronic medical record. Handwashing done prior to patient contact. VITAL SIGNS Per [facility] electronic medical record. PHYSICAL EXAM AREA EXAM TEXT EXTREMITIES Examination of the legs reveals +1 edema, worse left than right. IMPRESSION/REPORT/PLAN She has edema in the legs which predisposes to pain and on one occasion cellulitis. We are going to try furosemide at 20 milligrams daily combined with chlorthalidone, a half pill, every other day. She will take the chlorthalidone on even numbered days. I will also empirically start KCL 20 milliequivalents once daily and keep an eye on the potassium. We will today do a BMP and I will have the patient return in 10 days. I am hoping at that time to have 5 to 7 pounds of fluid off her and will check electrolytes again at that point. DMB/nmd Signed Neda Hoffman M.D. Internal Medicine Electronically Signed By: NEDA HOFFMAN MD On: 07/21/2010 09:32 Source: [facility] MHSDOLBEYNONRADSYS Document Id: [id number] documented in this encounter Miscellaneous Notes Miscellaneous - Neda Hoffman M.D. - 07/19/2010 2:55 PM CDT Results Notification Document Contains Addenda Addendum by LEVI MALONEY LPN on 20 July 2010 16:35:10 CDT called with results From: NEDA HOFFMAN MD To: LEVI MALONEY Sent: 07/19/2010 14:55:33 CDT ! 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 Entered On: 07/19/2010 13:52 CDT Performed On: 07/19/2010 13:50 CDT by LEVI MALONEY LPN Intake Chief Complaint: recheck Peripheral Pulse Rate: 80/min Systolic Blood Pressure: 126mmHg Diastolic Blood Pressure: 70mmHg NIBP Mean: 89mmHg BP Location: Left upper extremity Heart Rhythm: Regular Actual Weight: 71.000kg(Converted to: 156lb 8oz) Weight Source: Standing scale Dosing Weight Clinic: 71.00kg LEVI MALONEY LPN - 07/19/2010 13:50 CDT Subjective Pain Symptoms: No LEVI MALONEY LPN - 07/19/2010 13:50 CDT Dependent Habits Tobacco Use/Currently Using: No LEVI MALONEY LPN - 07/19/2010 13:50 CDT Caffeine Use Grid Caffeine Use: Current Type: Coffee Frequency: Daily LEVI MALONEY LPN - 07/19/2010 13:50 CDT Recreational Drug Use Grid Drug Use: None LEVI MALONEY LPN - 07/19/2010 13:50 CDT Allergies Latex Screening: No LEVI MALONEY LPN - 07/19/2010 13:50 CDT Allergies (Active) NKA Estimated Onset Date: Unspecified ; Created By: LEVI MALONEY LPN; Reaction Status: Active; Category: Drug ; Substance: NKA ; Type: Allergy ; Updated By: LEVI MALONEY LPN; Reviewed Date: 07/19/2010 13:49 CDT Source: [facility]ice[facility] EnterprisesCHART Document Id: [id number] CDT!26 documented in this encounter Plan of Treatment Not on filedocumented as of this encounter Visit Diagnoses Not on filedocumented in this encounter
--- OUTSIDE RECORDS SUMMARY | 2022-02-28 01:47 | XMS_ITS | Encounter Summary ---
:1940 Author Organization [facility] Address [address] [place] [address] Care Team Providers Name Role Phone Unavailable Primary Care Provider Unavailable Encounter Details Date Type Department Care Team Description 11/11/2008 Hospital Encounter HX NO MAPPING Sherif Hoffman M.D. [address] [place] [address] 021 (Wo rk) Social History Tobacco Use Types Packs/Day Years Used Date Smoking Tobacco: Never Assessed Sex Assigned at Date Recorded Female 09/25/2017 1:20 PM CDT documented as of this encounter Plan of Treatment Not on filedocumented as of this encounter Procedures Procedure Name Priority Date/Time Associated Diagnosis Comme nts BI BREAST SCREENING Routine 11/11/2008 3:21 PM Re sults for this BILATERAL CDT procedure are i n the results section. documented in this encounter Results BI Breast Screening Bilateral (11/11/2008 3:21 PM CDT) Anatomical Region Laterality Modality Breast Bilateral Mammography Specimen (Source) Anatomical Collection Method Collection Time Re ceived Time Location / / Volume Laterality 11/11/2008 3:21 PM CDT Addenda Addendum by ProviderJorge Luis M.D. o n 11/11/2008 3:21 PM CDT RAD^^^OW MA Mammo Screening w ??CADD 11/11/2008 15:21:00 Addendum by ProviderJorge Luis M.D. o n 11/11/2008 3:41 PM CDT RAD^^^OW MA Mammo Screening w ??CADD 11/11/2008 15:41:00 Addendum by ProviderJorge Luis M.D. o n 11/11/2008 3:21 PM CDT RAD^^^MA MA MAMMO SCREENING W/CADD 11/11/2008 15:21:00 Addendum by ProviderJorge Luis M.D. o n 11/11/2008 3:41 PM CDT RAD^^^[facility]Y MAMMO SCREENING W/CADD 11/11/2008 15:41:00 Impressions 11/12/2008 9:00 AM CDT 1. Negative, normal mammogram, ACR categ ory 1. 2. I recommend routine yearly mammograms on this patient. ?? BREAST MAMMOGRAPHY-GENERAL OBSERVATION: The false negative rate for mammography is 10 to 15%. It cannot be u sed, therefore, to replace regular physical examination. A normal o r noncontributory mammogram report should also not deter the aggress edna further workup of any suspected palpable masses. Narrative 11/12/2008 9:00 AM CDT Bilateral craniocaudal and oblique views of the breasts were obtained, and compared to the patient's prior stud ies of 10/23/2007 and prior. ?? The breast parenchyma remains predominan tly fatty and fibroglandular in appearance. There are no suspicious g rouping of calcifications, dominant nodules, areas of skin thickeni ng or nipple retraction to suggest malignancy. ?? Computer Aided Detection was utilized du ring the interpretation of this exam. ?? Procedure Note Cirilo James D.O. / Provider, Jaye barahona M.D. - 08/30/2016 Bilateral craniocaudal and oblique views of the breasts were obtained, and compared to the patient's prior stud ies of 10/23/2007 and prior. The breast parenchyma remains predominan tly fatty and fibroglandular in appearance. There are no suspicious g rouping of calcifications, dominant nodules, areas of skin thickeni ng or nipple retraction to suggest malignancy. Computer Aided Detection was utilized du ring the interpretation of this exam. IMPRESSION: 1. Negative, normal mammogram, ACR categ ory 1. 2. I recommend routine yearly mammograms on this patient. BREAST MAMMOGRAPHY-GENERAL OBSERVATION: The false negative rate for mammography is 10 to 15%. It cannot be u sed, therefore, to replace regular physical examination. A normal o r noncontributory mammogram report should also not deter the aggress edna further workup of any suspected palpable masses. Giselle L Possehl R.T.(R), R.T.(R)(M) IMG BI PROCEDURES documented in this encounter Visit Diagnoses Not on filedocumented in this encounter
--- OUTSIDE RECORDS SUMMARY | 2022-02-28 01:49 | XMS_ITS | Clinical Summary ---
:1940 Author Organization [employer] [facility] [place] [address] Care Team Providers Name Role Phone Beto TaylorW Unavailable Sharif Nunez MD Unavailable [phone] Constanza Cardozo MD Primary Care Provider Allergies Active Allergy Reactions Severity Noted Date Comments Clonidine Hallucinations 05/03/2018 Leflunomide Hallucinations 12/21/2017 Lisinopril *Unknown 05/23/2018 Increased creat inine Methotrexate *Unknown 12/21/2017 Did not feel we ll Oxycodone Vomiting, *Unknown 08/11/2011 No reacti on listed in [facility] Sulfa (Sulfonamide *Unknown 12/03/2015 On clinic list Antibiotics) No reaction lis sheryl in [employer] Hydrocodone-Acetaminophe Vomiting 10/25/2014 n Medications Medication Sig Dispensed Refills Start Date End Date Status CALCIUM Take 1 tablet by 0 01/11/2010 Ac tive CARBONATE/VITAMIN D2 mouth once daily. (CALCIUM + VITAMIN D ORAL) multivitamin-minerals Take 1 tablet by 0 Active therapeutic tablet mouth once daily. acetaminophen (TYLENOL Take 2 tablets by 0 8 Active EXTRA STRENGTH) 500 mg mouth every 6 tabletIndications: pain hours if needed. Max acetaminophen dose: 4000mg in 24 hrs. alendronate (FOSAMAX) Take 1 Tablet (70 12 Tablet 3 10/08/2021 Active 70 mg tablet mg) by mouth once a week in the morning. Take on empty stomach with full glass of water. Do not lie down for 1 hr. hydrOXYchloroQUINE Take 1 Tablet (200 0 10/08/2021 Active (PLAQUENIL) 200 mg mg) by mouth in tablet the morning and 1 Tablet (200 mg) in the evening. predniSONE (DELTASONE) Take 1 Tablet (1 0 10/08/2021 Active 1 mg tablet mg) by mouth once daily with a meal. aspirin (ECOTRIN) 81 mg Take 1 Tablet (81 0 10/09/19 Active enteric coated tablet mg) by mouth once daily with a meal. methotrexate Mg weekly 0 10/08/2021 Active (RHEUMATREX) 2.5 mg tablet ferrous sulfate 325 mg Take 1 Tablet (325 90 Tablet 3 11/16/19 Active delayed release mg) by mouth once tabletIndications: daily with a meal. Anemia due to acute blood loss losartan (COZAAR) 50 mg Take 1 Tablet (50 90 Tablet 3 12/18/19 Active tabletIndications: HTN mg) by mouth once (hypertension) daily. furosemide (LASIX) 20 Take 1 Tablet (20 180 Tablet 3 Active mg tabletIndications: mg) by mouth two Bilateral lower times daily. extremity edema amLODIPine (NORVASC) 5 Take 1 Tablet (5 90 Tablet 3 12/24/2021 Active mg tabletIndications: mg) by mouth once Hypertension daily. Active Problems Problem Noted Date Mass of middle lobe of right lung 12/20/2021 Overview: Incidental in CT AP 10/04/21. Stable on r epeat chest CT 12/17/21, also w/RLL nodule density of uncertain chronicity. Recommend repeat chest CT in 3-6 mos. Thyroid nodule 12/20/2021 Overview: Incidental on 12/17/[address], thyroid US recommended Presence of neurostimulator 08/25/2021 Prediabetes 08/27/2020 Generalized osteoarthritis 10/26/2018 Personal history of other venous thrombosis and emboli sm 06/29/2018 Sensorineural hearing loss (SNHL) of both ears 019 Overview: Formatting of this note might be differe nt from the original. She has hearing aids ([facility] in [place]). Obesity with body mass index 30 or greater 12/21/2017 Arthritis, rheumatoid 08/17/2017 Overview: Formatting of this note might be differe nt from the original. RA Sees Dr. Nunez at [facility] [phone] fax [phone] Last Assessment & Plan: Formatting of this note might be differe nt from the original. I went over the results of her bone dens ity test and LS x ray done 09/30/20 She was glad to hear she did not have os teoporosis. I will forward the results per fax to Dr Regina Nunez Status post total right knee replacement 07/12/2017 Retention of urine 02/01/2016 Overview: Formatting of this note might be differe nt from the original. She has a medical need to catheterize 6x /day to prevent UTIs, to prevent kidney failure related to urinary retention, and to prevent discomfort related to urinary retention. Last Assessment & Plan: Formatting of this note might be differe nt from the original. She is here today because [facility] will not supply her with 6 catheters /day. They told her that medicare would only cover 4 catheters/day. She only has 10 catheters left and needs a supply. I contacted Verónica Escalante [employer] [facility]. She sees her on a routine basis. She will provide Vanessa with enough catheters to get by until her order from [facility] is delivered. She will drive to [place] to last picker th e catheters. I had sent Dr. Lopez's order and visit note to [facility] in [place]. Renay Renee will process the order and have the catheters sent to her home. She felt that they would arrive by next Monday. Vanessa had been up since 5:00 very conc erned that she would not be able to get the catheters. She voiced being grateful for the care today. Hypertensive kidney disease, stage III 01/11/2010 Overview: Formatting of this note might be differe nt from the original. She has had increased Cr with lisinopril /ARBs and hallucinations once with clonidine. In 2019, [...] that this has ever been trialed. With ifrah IRVIN, I would favor trying a low dose GUILLERMO/ARB if she is willing. Hypertension Hyperlipidemia Encounters Date Type Specialty Care Team Description 01/25/2022 Lab Requisition Clemencia Randall MD 01/19/2022 Office Visit Clemencia Randall Consult (Right thyroid MD Chata nodule referred by Dr. Cardozo) 01/19/2022 Travel 01/07/2022 Orders Only Lab, [facility] 01/07/2022 Nurse/Clinic Staff Only Nurs e/Clinic Staff Only (BP check) 01/07/2022 Travel 01/03/2022 Telephone Constanza Cardozo MD 12/29/2021 Ancillary Procedure 12/29/2021 Travel 12/24/2021 Office Visit Constanza Cardozo Medicare MARTA Diaz MD (subsequent) Vi sit (81 y.o./) 12/24/2021 Travel 12/20/2021 Orders Only Constanza Cardozo <No scans att ached> MD Erika 12/17/2021 Ancillary Procedure 12/17/2021 Nurse/Clinic Staff Only Bloo d Pressure (146/67) 12/17/2021 Orders Only Lab, [facility] 12/17/2021 Telephone Constanza Cardozo Blood Pressur e (146/67) MD Erika 12/17/2021 Travel 12/09/2021 Refill Constanza Cardozo Refill Reques ifrah James MD (Amlodipine) 12/06/2021 Telephone Constanza Cardozo Results MD Erika 12/02/2021 Preop Visit Constanza Cardozo Preoperative Exam MD Erika (12/06/21 Jarvis Oliveira No [facility]. ) 12/02/2021 Refill Constanza Cardozo Refill Gus James MD (Losartan) 12/02/2021 Travel from Last 3 Months Immunizations Name Administration Dates Next Due COVID-19 vaccine (Moderna 08/25/2021, 02/23/2021, 08/03/2020 , 100mcg/0.5mL) PF, MDV 07/06/2020 DT (Age < 7 years) 07/09/2005 Influenza Virus, Unspecified 01/02/2020, 12/24/2015, 015 Influenza, High-dose Inactivated 01/21/2019, 01/11/2018, , 12/24/2015, 01/19/2015 Influenza, High-dose Quadrivalent 01/26/2021 Inactivated Influenza, IIV3 (Age >=3 years) 01/13/2014, 01/22/2013, 12/26 Influenza, Inactivated AIIV4 (Age 65+ 01/02/2020 Years) Preserv Free Pneumococcal Poly,23-Valent 07/09/2005 (Pneumovax) Pneumococcal conj 13-Valent (Prevnar 01/19/2015 13) Tdap 02/03/2016 Family History Medical History Relation Name Comments Coronary artery disease Brother Diabetes Brother Heart attack Brother Hypertension Brother Cataracts Father Rheum arthritis Mother Relation Name Status Comments Brother Father Mother Social History Tobacco Use Types Packs/Day Years Used Date Never Smoker Smokeless Tobacco: Never Used Tobacco Cessation: Counseling Given: Yes Alcohol Use Standard Drinks/Week Comments No 0 (1 standard drink = 0.6 oz pure alcoho l) Sex Assigned at Date Recorded Not on file Obstetrics History Last Filed Vital Signs Vital Sign Reading Time Taken Comments Blood Pressure 152/72 01/19/2022 9:36 AM CDT Pulse 79 01/19/2022 9:36 AM CDT Temperature 37.2 ??C (98.9 ??F) 12/02/2021 11:04 AM CDT Respiratory Rate 20 07/14/2017 8:00 AM CDT Oxygen Saturation 98% 01/19/2022 9:33 AM CDT Inhaled Oxygen Concentration - - Weight 67.1 kg (148 lb) 01/19/2022 9:33 AM CDT Height 156.2 cm (5' 1.5) 10/15/2021 11:31 AM CDT Body Mass Index 27.51 10/15/2021 11:31 AM CDT Plan of Treatment Upcoming Encounters Date Type Specialty Care Team Description 05/26/2022 Office Visit Riley Camacho MD [address] [place] [phone] (Wo rk) 06/20/2022 Ancillary Procedure Health Maintenance Due Date Last Done Comments Zoster (shingles) series 12/04/1959 for age 50+ (1 of 2) COVID-19 vaccine series (5 10/20/2021 08/25/2021, , - Booster for Moderna 08/03/2020, Additional series) history exists Influenza for age 65+ 11/25/2021 01/26/2021, 01/02/2020, 01/02/2020, Additional history exists BMI (ht and wt on same 10/15/2022 10/15/2021, 05/09/2016, day) for age 18+ 04/26/2016 Depression screening for 12/24/2022 12/24/2021, 06/21/2017 age 12+ Medicare Wellness for age 0912/24/2022 12/24/2021 65+ Tetanus booster 02/02/2026 02/03/2016 Pneumococcal series for Completed 01/19/2015, 07/09/2005 age 65+ Tdap Completed 02/03/2016 DEXA/DXA scan for age 65+ Addressed 12/14/2020 (Verified i n Overridden with the Care Everywhere or intention of not Patient Record) completing the t opi Medical Devices Implanted Type Area Yard Conductor Device Shelf Model / Identifier Expiration Serial / Date Lot Lead Bladder 28cm Interstim Tined 3mm Spacing - [id number] N/A: Sacrum Medtronic Pain 04/25/2020 [id number]# / Implanted: Qty: 1 on 05/04/2016 by Cesar Groves MD at [facility] Therapy / [id number] Stimulator 7.7mm 14cc Interstim Ii - [id number] N/A: Sacru m Medtronic Pain 10/07/2017 [id number]# / Implanted: Qty: 1 on 05/11/2016 by Cesar Groves MD at [facility] Therapy / [id number] - [id number] Right: Knee [id number] / Implanted: Qty: 1 on 07/12/2017 by Ignacio Mead MD at [facility] / [id number] Description: X3 triathlon CS INS Explanted Type Area Yard Conductor Device Shelf Model / Identifier Expiration Serial / Date Lot Lead Intrdcr Bladder Interstim - [id number] N/A: Sacrum Me dtronic Pain 05/27/2017 [id number]# / Explanted: Qty: 1 on 05/04/2016 by Cesar Groves MD at [facility] Therapy / [id number] Procedures Procedure Name Priority Date/Time Associated Diagnosis Comme nts LAB TRACKING EVENT Routine 01/24/2022 10:47 AM CDT PATH FNA CYTOLOGY Routine 01/24/2022 10:47 Result s for this ASP CYTOLOGY AM CDT procedure are i n the results section. FERRITIN Routine 01/07/2022 1:59 PM Anemia due to acute Re sults for this CDT blood loss procedure are i n the results section. IRON PLUS IRON Routine 01/07/2022 1:59 PM Anemia due to acute Results for this BINDING CAP CDT blood loss procedure are i n the results section. HEMOGLOBIN Routine 01/07/2022 1:59 PM Anemia due to acute Re sults for this CDT blood loss procedure are i n the results section. BASIC METABOLIC Routine 01/07/2022 1:59 PM Hypertension Result s for this PANEL CDT procedure are i n the results section. US Routine 12/29/2021 1:57 PM Thyroid nodule Results for this THYROID/PARATHYROID CDT procedur e are in the results section. CT CHEST WO Routine 12/17/2021 2:24 PM Mass of right lung Res ults for this CDT procedure are i n the results section. T4,FREE Routine 12/17/2021 1:40 PM Thyroid nodule Results for this CDT procedure are i n the results section. TSH WITH REFLEX Add On 12/17/2021 1:40 PM Thyroid nodule Resu lts for this CDT procedure are i n the results section. BASIC METABOLIC Routine 12/17/2021 1:40 PM HTN (hypertension) Results for this PANEL CDT procedure are i n the results section. HEMOGLOBIN Routine 12/17/2021 1:40 PM Anemia due to acute Re sults for this CDT blood loss procedure are i n the results section. POTASSIUM Routine 12/02/2021 11:58 Pre-op exam Results for this AM CDT procedure are i n the results section. CREATININE Routine 12/02/2021 11:58 Pre-op exam Results for this AM CDT procedure are i n the results section. COVID 19 Routine 12/02/2021 11:12 Encounter for medical Re sults for this AM CDT examination to procedure are in establish care the results section. COVID 19 COLLECTION Routine 12/02/2021 11:12 Encounter for med ical Results for this AM CDT examination to procedure are in establish care the results section. from Last 3 Months Results LAB TRACKING EVENT (01/24/2022 10:47 AM CDT) Specimen Anatomical Collection Method Collection Time Receive d Time (Source) Location / / Volume Laterality Other (Other) Client Collect / 01/24/2022 10:47 2021 Unknown AM CDT 10:28 AM CDT Clemencia Randall MD LAB BILL ONLY Performing Organization Address City/State/ZIP Code Phon e Number [employer] [address] [place] [address] LABORATORY-CENTRAL 2000 LABORATORY PATH FNA CYTOLOGY ASP CYTOLOGY (01/24/2022 10:47 AM CDT) Component Value Ref Test Analysis Performed At [facility] gist Range Method Time Signature Case Report Medical Cytology Report ? Case: [id number] ? 01/26/2022 ML Authorizing Provider: ??Clemencia Montero MD ??Collected: ? 01/24/2022 1047 ? 10:55 AM HEALTH Ordering Location: ? [facility] ?Received: ?01/25/2022 1130 ? CDT LA BORATORY-C Pathologist: ? Priti Santana MD ? ENTRAL Specimen: ?Right Thyroid ? LABORATORY Final A) THYROID, RIGHT, ULTRASOUND GUIDED FINE NEEDLE ASPIRATIO N: 01/26/2022 [facility] Electronically Diagnosis 1. Benign colloid nodule with cystic degeneration 10:55 AM HEALTH signed by 2. Negative for malignancy CDT LAB ORATORY-C Priti Santana, 3. See comment INOCENCIO GENTILE on 01/26/2022 LABORATORY at 10:55 AM Comment A) The risk of 01/26/2022 [facility] malignancy in 10:55 AM HEALTH the follow-up of CDT LABORATORY-C lesions with INOCENCIO this cytologic LABORATORY appearance is low (0-3%). Clinical and radiologic correlation is advised, with repeat sampling recommended for any suspicious or enlarging lesion at this site. Clinical Ms. Andino is 01/26/2022 [facility] Information a 81 y.o. female 10:55 AM HEALTH with a 3.5 x 2.8 CDT LABORATORY-C x 3.3 cm, TR 4, ENTRAL solid right LABORATORY thyroid nodule. Gross 01/26/2022 [facility] Description A) Received identified as R ight Thyroid is a fine needle aspirate specimen. 10:55 AM HEALTH CDT LABORATORY-C The following were received: E NTRAL ? -5 Air dried slides LAB ORATORY ? -1 CytoLyt vial ? -1 FNA Protect vial The following were prepared from the specimen submitted: ? -5 Diff-Quik stained slides ? -1 Papanicolaou stained ThinPrep slides Microscopic Specimen adequacy: Adequate for interpretation. 01/26/2022 [facility] Description 10:55 AM HEALTH All slides were reviewed. Th e microscopic appearance substantiates the diagnosis. CDT LABORATORY-C ENTRAL LABORATORY Additional Cytology is screened at [facility], Central Laboratory - [address], [place] [address] and [facility] Laboratory - [address], [place] [address] and 01/26/2022 [facility] Laboratory - [address] [place] [address] 10:55 AM HEALTH CDT LABORATORY-C ENTRAL Interpreted at [facility] Laboratory, Central Laboratory - [address], [place] [address] LABORATORY Specimen Anatomical Collection Method Collection Time Receive d Time (Source) Location / / Volume Laterality Aspirate (Right 01/24/2022 10:47 01/26/20 22 Thyroid) AM CDT 11:30 AM CDT Clemencia Randall MD PATHOLOGY/CYTOLOGY Performing Organization Address City/State/ZIP Code Phon e Number [facility] [address] [place] [address] LABORATORY-CENTRAL 2000 LABORATORY (ABNORMAL) IRON PLUS IRON BINDING CAP (01/07/2022 1:59 PM CDT) P athologist Signature IRON 26 25 - 156 01/08/2022 [facility] [employer] ug/dL 8:03 PM CDT LABORATORY-[facility] TRAL LABORATORY UIBC 243 [facility]20[facility] 8:03 PM CDT LABORATORY-[facility] TRAL LABORATORY IRON BINDING 269 245 - 400 01/08/2022 [facility] [employer] CAPACITY ug/dL 8:03 PM CDT LABORATORY-[facility] TRAL LABORATORY IRON,% 10 (L) 20 - 55 % 01/08/2022 [facility] [employer] SATURATION 8:03 PM CDT LABORATORY-S[facility]VA[facility] TRAL LABORATORY Specimen Anatomical Collection Method / Collection Time Recei lorraine Time (Source) Location / Volume Laterality Blood BLOOD SPECIMEN / Venipuncture / 01/07/2022 1:59 2021 1:59 Unknown Unknown PM CDT PM CDT Constanza Cardozo MD CHEMISTRY Performing Organization Address City/State/ZIP Code Phon e Number [facility] [address] [place] [address] LABORATORY-CENTRAL 2000 LABORATORY (ABNORMAL) HEMOGLOBIN (01/07/2022 1:59 PM CDT)Only the most recent of2 results within the time period is included. athologist Signature HEMOGLOBIN 11.1 (L) 12.0 - 01/07/2022 [facility] 16.0 g/dL 2:12 PM CDT [facility] MCV 94 80 - 100 [facility]/07[facility] 2:12 PM CDT [facility] Specimen Anatomical Collection Method / Collection Time Recei lorraine Time (Source) Location / Volume Laterality Blood BLOOD SPECIMEN / Venipuncture / 01/07/2022 1:59 2021 1:59 Unknown Unknown PM CDT PM CDT Constanza Cardozo MD HEMATOLOGY Performing Organization Address City/[facility]/ZIP Code Phon e Number [facility] [address] [place] [address] FERRITIN (01/07/2022 1:59 PM CDT) athologist [facility] FERRITIN 196.6 15.0 - 01/08/2022 [facility] 205.0 ng/mL 8:07 PM CDT LABORATORY-CENTR AL LABORATORY Specimen Anatomical Collection Method / Collection Time Recei lorraine Time (Source) Location / Volume Laterality Blood BLOOD SPECIMEN / Venipuncture / 01/07/2022 1:59 2021 1:59 Unknown Unknown PM CDT PM CDT Constanza Cardozo MD CHEMISTRY Performing Organization Address City/[facility]/ZIP Code Phon e Number [facility] [address] [place] [address] LABORATORY-CENTRAL 1999 LABORATORY (ABNORMAL) BASIC METABOLIC PANEL (01/07/2022 1:59 PM CDT)Only the most recent of 2 resultswithin the time period is included. [facility] gist Method Time Signature SODIUM 137 135 - 145 01/08/2022 [facility] mmol/L 7:53 PM CDT LABORATORY-[facility] TRAL LABORATORY POTASSIUM 4.7 3.5 - 5.0 01/08/2022 [facility] [employer] mmol/L 7:53 PM CDT LABORATORY-[facility] TRAL LABORATORY CHLORIDE 105 98 - 110 01/08/2022 [facility] mmol/L 7:53 PM CDT LABORATORY-[facility] TRAL LABORATORY CO2,TOTAL 24 21 - 31 01/08/2022 [facility] [employer] mmol/L 7:53 PM CDT LABORATORY-[facility] TRAL LABORATORY ANION GAP 8 5 - 18 01/08/2022 [facility] [employer] 7:53 PM CDT LABORATORY-[facility] TRAL LABORATORY GLUCOSE 122 (H) 65 - 100 01/08/2022 [facility] [employer] mg/dL 7:53 PM CDT LABORATORY-[facility] TRAL LABORATORY CALCIUM 9.0 8.5 - 10.5 01/08/2022 [facility] [employer] mg/dL 7:53 PM CDT LABORATORY-[facility] TRAL LABORATORY BUN 26 (H) 8 - 25 01/08/2022 [facility] [employer] mg/dL 7:53 PM CDT LABORATORY-[facility] TRAL LABORATORY CREATININE 1.18 (H) 0.57 - 01/08/2022 [facility] [employer] 1.11 mg/dL 7:53 PM CDT LABORATORY-[facility] TRAL LABORATORY BUN/CREAT RATIO 22 (H) 10 - 20 01/08/2022 [facility] [employer] 7:53 PM CDT LABORATORY-[facility] TRAL LABORATORY eGFR 46 (L) >90 01/08/2022 [facility] [employer] mL/min/1.7 7:53 PM CDT LABORATORY-SRAVANI 3m2 TRAL LABORATORY Comment: As of 2021, eGFR is calcu lated by the CKD-EPI creatinine equation without race adjustment. eGFR can be inf luenced by muscle mass, exercise, and diet. The reported eGFR is an estimation only and is only applicable if the renal function is stable. Specimen Anatomical Collection Method / Collection Time Recei lorraine Time (Source) Location / Volume Laterality Blood BLOOD SPECIMEN / Venipuncture / 01/07/2022 1:59 2021 1:59 Unknown Unknown PM CDT PM CDT Constanza Cardozo MD CHEMISTRY Performing Organization Address City/State/ZIP Code Phon e Number [employer] [address] [place] [address] LABORATORY-CENTRAL 2000 LABORATORY US THYROID/PARATHYROID (12/29/2021 1:57 PM CDT) Anatomical Region Laterality Modality THYROID Ultrasound Specimen (Source) Anatomical Collection Method Collection Time Re ceived Time Location / / Volume Laterality 12/29/2021 2:41 PM CDT Impressions 12/29/2021 2:41 PM CDT Single right thyroid nodule. Would recommend thyroid FNA. ACR TI-[email or web address] TR1: Benign No FNA TR2: Not Suspicious No FNA TR3: Mildly Suspicious FNA if greater than or equal to 2.5 cm Follow if greater than or equal to 1.5 c m TR4: Moderately Suspicious FNA if greater than or equal to 1.5 cm Follow if greater than or equal to 1 cm TR5: Highly Suspicious FNA if greater than or equal to 1 cm Follow if greater than or equal to 0.5 c m Dictated by Amanda Valenzuela MD @ Dec ??5 2 022 ??2:41PM (Electronically Signed) ?? Narrative 12/29/2021 2:41 PM CDT For Patients: ??As a result of the Cures Act, medical imaging exams and procedure report s are released immediately into your count [facility]. ??You may view this report before your referring provider. ??If you have questions, please contact your health care provider. CLINICAL HISTORY: Thyroid nodule TECHNIQUE: Awad-scale and color Doppler images were acquired of the thyroid gland. FINDINGS: The right thyroid lobe measures 4.4 x 2. 2 x 2.9 centimeters the left thyroid lobe measures 2.9 x 2 x 1.4 centimeters. Predominantly solid minimally cystic right thyroid nodule measuring 3.4 by 2.7 x 3 centimeters. TR 4 Procedure Note Amanda Valenzuela MD - 12/29/2021 For Patients: As a result of the Cures Act, medical imaging exams and procedure reports are released immediately into your electronic medical record. You may view this report before your referring provider. If you have questions, please contact [facility] health care provider. CLINICAL HISTORY: Thyroid nodule TECHNIQUE: Awad-scale and color Doppler images were acquired of the thyroid gland. FINDINGS: The right thyroid lobe measures 4.4 x 2. 2 x 2.9 centimeters the left thyroid lobe measures 2.9 x 2 x 1.4 centimeters. Predominantly solid minimally cystic right thyroid nodule measuring 3.4 by 2.7 x 3 centimeters. TR 4 IMPRESSION: Single right thyroid nodule. Would recom mend thyroid FNA. ACR TI-RADS [email or web address] TR1: Benign No FNA TR2: Not Suspicious No FNA TR3: Mildly Suspicious FNA if greater than or equal to 2.5 cm Follow if greater than or equal to 1.5 c m TR4: Moderately Suspicious FNA if greater than or equal to 1.5 cm Follow if greater than or equal to 1 cm TR5: Highly Suspicious FNA if greater than or equal to 1 cm Follow if greater than or equal to 0.5 c m Dictated by Amanda Valenzuela MD @ Dec 29 2:41PM (Electronically Signed) Constanza Cardozo MD US CT CHEST WO (12/17/2021 2:24 PM CDT) Anatomical Region Laterality Modality CHEST, THORAX, HEART Computed Tomography Specimen (Source) Anatomical Collection Method Collection Time Re ceived Time Location / / Volume Laterality 12/17/2021 3:24 PM CDT Narrative 12/17/2021 3:24 PM CDT For Patients: ??As a result of the Century Cures Act, medical imaging exams and procedure report s are released immediately into your [facility] medical record. ??You may view this report before your referring provider. ??If you have questions, please contact your health care provider. Indication: Follow-up mass Technique: Noncontrast CT chest Please note that all CT scans at this [facility] use dose modulation, iterative reconstruction, and/or weight-based dosing when appropriate to reduce radiation dose to as low as reasonably achievable. Comparison: CT abdomen and pelvis [facility] 10/04/2021 Findings: Similar morphology in size of 1.5 x 1.8 cm masslike opacity within the periphery of the right middle lobe, . Peripheral parenchymal density within the superior segment of the right lower lobe measur ing 1.2 cm, . The scarring at the florentino ng apices. No pleural effusion or pneumothorax. No pulmonary edema. Dense vascular calcifications. Enlarged nodule right thyroid lobe measuring 3.2 cm. Heterogene ity of the remaining thyroid gland with other smaller nodules. Upper limits normal mediastinal lymph nodes measuring up to 9 millimeters. No pericardial effusion. Visualized upper abdomen unremarkable. Cardiomegaly. No fracture. Impression: Stable morphology and size of masslike o pacity in the right middle lobe measuring 1.5 x 1.8 cm. Additional peripheral nodular density within the superior segment of the right lower lobe measuring 1.2 cm . This was not previously imaged. Contin ued follow-up CT in 3-6 months could be considered for follow-up purposes. Alternatively, a CT-PET or percutaneous biopsy could be performed. Multiple thyroid nodules measuring up to 3.2 cm. Thyroid ultrasound should be considered. Please note that all CT scans at this [facility] use dose modulation, iterative reconstruction, and/or weight-based dosing when appropriate to reduce radiation dose to as low as reasonably achievable. Dictated by Eliseo Gutierrez MD @ Dec 17 ??3:24PM (Electronically Signed) ?? Procedure Note Eliseo Gutierrez MD - 12/17/2021For matting of this note might be different from the original. For Patients: As a result of the ntury Cures Act, medical imaging exams and procedure reports are released immediately into your electronic medical record. You may view this report before your referring provider. If you have questions, please contact [facility] care provider. Indication: Follow-up mass Technique: Noncontrast CT chest Please note that all CT scans at this [facility] use dose modulation, iterative reconstruction, and/or weight-based dosing when appropriate to reduce radiation dose to as low as reasonably achievable. Comparison: CT abdomen and pelvis [facility] 10/04/2021 Findings: Similar morphology in size of 1.5 x 1.8 cm masslike opacity within the periphery of the right middle lobe, . Peripheral parenchymal density within the superior segment of the right lower lobe measuring 1.2 cm, . The scarring at the lung apices. N o pleural effusion or pneumothorax. No pulmonary edema. Dense vascular calcifications. Enlarged nodule right thyroid lobe measuring 3.2 cm. Heterogeneity of the remaining thyroid gland with other smaller nodules . Upper limits normal mediastinal lymph nodes measuring up to 9 millimeters. No pericardial effusion. Visualized upper abdomen unremarkable. Cardiomegaly. No fracture. Impression: Stable morphology and size of masslike o pacity in the right middle lobe measuring 1.5 x 1.8 cm. Additional peripheral nodular density within the superior segment of the right lower lobe measuring 1.2 cm. This was not previously imaged. Continued follow-up C T in 3-6 months could be considered for follow-up purposes. Alternatively, a CT-PET or percutaneous biopsy could be performed. Multiple thyroid nodules measuring up to 3.2 cm. Thyroid ultrasound should be considered. Please note that all CT scans at this [facility] use dose modulation, iterative reconstruction, and/or weight-based dosing when appropriate to reduce radiation dose to as low as reasonably achievable. Dictated by Eliseo Gutierrez MD @ Dec 17 2 022 3:24PM (Electronically Signed) Constanza Cardozo MD CT (ABNORMAL) TSH WITH REFLEX (12/17/2021 1:40 PM CDT) athologist Signature TSH 0.10 (L) 0.35 - 4.94 12/20/2021 [facility] Jobzella uIU/mL 5:16 PM CDT LABORATORY-CENT RAL LABORATORY Specimen Anatomical Collection Method / Collection Time Recei lorraine Time (Source) Location / Volume Laterality Blood BLOOD SPECIMEN / Venipuncture / 12/17/2021 1:40 2021 1:45 Unknown Unknown PM CDT PM CDT Narrative [facility] LABORATORY-CENTRAL LABORAT ORY - 12/20/2021 5:16 PM CDT In Adults, TSH values between 5.00 and 10.00 uIU/ml do not necessarily indicate the presence of Hyp othyroidism. Correlation with clinical findings such as presence of goiter and/or Thyroperoxidase (TPO) Antibody ma y be helpful. For more information please refer to [facility] 20 04; 291: [id number]. Constanza Cardozo MD CHEMISTRY Performing Organization Address City/State/ZIP Code Phon e Number [employer] [address] [place] [address] LABORATORY-CENTRAL 2000 LABORATORY T4,FREE (12/17/2021 1:40 PM CDT) athologist Signature T4,FREE 1.42 0.70 - 1.80 12/20/2021 [facility] Jobzella ng/dL 6:03 PM CDT LABORATORY-CENTR AL LABORATORY Specimen Anatomical Collection Method / Collection Time Recei lorraine Time (Source) Location / Volume Laterality Blood BLOOD SPECIMEN / Venipuncture / 12/17/2021 1:40 2021 1:45 Unknown Unknown PM CDT PM CDT Constanza Cardozo MD CHEMISTRY Performing Organization Address City/[facility]/ZIP Code Phon e Number [employer] [address] [place] [id number] LABORATORY-CENTRAL 2000 LABORATORY POTASSIUM (12/02/2021 11:58 AM CDT) athologist Signature POTASSIUM 4.5 3.5 - 5.0 12/03/2021 [place] [facility] mmol/L 6:32 AM CDT LABORATORY-CENTR AL LABORATORY Specimen Anatomical Collection Method / Collection Time Recei lorraine Time (Source) Location / Volume Laterality Blood BLOOD SPECIMEN / Venipuncture / 12/02/2021 11:58 12/02 Unknown Unknown AM CDT 12:03 PM CDT Constanza Cardozo MD CHEMISTRY Performing Organization Address [facility] Phon e Number [employer] [address] [place] [address] LABORATORY-CENTRAL 2000 LABORATORY (ABNORMAL) CREATININE (12/02/2021 11:58 AM CDT) athologist Signature CREATININE 1.13 (H) 0.57 - 12/03/2021 [facility] 1.11 mg/dL 6:37 AM CDT LABORATORY-CENT RAL LABORATORY eGFR 49 (L) >90 12/03/2021 [facility] mL/min/1.7 6:37 AM CDT LABORATORY-CENT 2 RAL LABORATORY Comment: As of 2021, eGFR is calcu lated by the CKD-EPI creatinine equation without race adjustment. eGFR can be inf luenced by muscle mass, exercise, and diet. The reported eGFR is an estimation only and is only applicable if the renal function is stable. Specimen Anatomical Collection Method / Collection Time Recei lorraine Time (Source) Location / Volume Laterality Blood BLOOD SPECIMEN / Venipuncture / 12/02/2021 11:58 12/02 Unknown Unknown AM CDT 12:03 PM CDT Constanza Cardozo MD CHEMISTRY Performing Organization Address City/[facility] Phon e Number [employer] [address] [place] [phone] LABORATORY-CENTRAL 2000 LABORATORY COVID 19 (12/02/2021 11:12 AM CDT) Analysis Performed At [facility] logist Time Signature COVID 19 Negative Negative 12/03/[address] [facility] 1:47 PM CDT LABORATORY-[facility] Comment: All PCR tests are subject to fa lse negative result due to variability in viral load and collection technique. A n egative result does not rule out a SARS-CoV-2 infection. Clinical correlation required . Specimen Anatomical Location / Collection Method Collection Ren e Received Time (Source) Laterality / Volume Other SPECIMEN FROM Non-Blood / 12/02/2021 11:12 12/02/2021 3:48 NASOPHARYNGEAL Unknown AM CDT PM CDT STRUCTURE / Unknown Narrative [facility] LABORATORY-CENTRAL LABORAT ORY - 12/03/2021 1:47 PM CDT This test has been authorized by FDA und er an Emergency Use Authorization (EUA). This test is only authorized for the duration of time the declaration that circumstances exist justifying the authorization of th e emergency use of in vitro diagnostic tests for detection of SARS-CoV-2 virus and/or diagnosis of COVID-19 infection under section 564(b)(1) of the Act, 21 U.S.C. 360bbb-3(b)(1), unless the authorization is terminated or revoked sooner. Constanza Cardozo MD MICROBIOLOGY Performing Organization Address [facility] Phon e Number [facility] [address] [place] [address] LABORATORY-[place] 2000 LABORATORY COVID 19 COLLECTION (12/02/2021 11:12 AM CDT) [facility] gist Method Time Signature TESTING [facility] 12/02/2021 [facility] LABORATORY Laboratory 3:48 PM CDT LABORATORY-CE NTRAL LABORATORY Comment: Specimen submitted to [facility] for testing. Specimen Anatomical Location / Collection Method Collection Ren e Received Time (Source) Laterality / Volume Other SPECIMEN FROM Non-Blood / 12/02/2021 11:12 12/02/2021 NASOPHARYNGEAL Unknown AM CDT 11:22 AM CDT STRUCTURE / Unknown Constanza Cardozo MD SEND OUTS Performing Organization Address City/[facility] Phon e Number [facility] [address] [place] [address] [place] [address] LABORATORY-CENTRAL 2000 LABORATORY from Last 3 Months Insurance Payer Benefit Plan / Subscriber ID Effective Dates Phone Addre ss Type Group MEDICARE PART A MEDICARE PART A [id number] 2004-Presen ATTN: CLAIMS - HB USE ONLY HB ONLY t [address] [place] [address] MEDICARE PART B MEDICARE PART B [id number] 2011-Prese ATTN: CLAIMS - HB USE ONLY HB ONLY nt [address] [place] [address] UCARE MA UCARE [place] [id number] Effective for [address] [place] [address] UCARE UCAUDIE MEDICARE [id number] 2014-Presen [address] [place] [address] BLUE CROSS MR BLUE CROSS [id number] 2017-Presen [address] [address] [place] [id number] BLUE CROSS BLUE CROSS [id number] 2017-Presen [address] [address] [place], [place] [id number] Advance Directives Documents on File Type Date Recorded Patient Cardiothoracic Surgeon Explanati on Power of Ice Crusher 07/14/2017 7:57 AM 01/06/2017 Healthcare Directive 07/14/2017 7:57 AM 7 POLST 07/14/2017 8:01 AM 01/12/2017 Latest Code Status on File Code Status Date Activated Date Inactivated Comments Full Code 07/12/2017 7:10 AM 07/14/2017 4:57 PM Full Code 05/11/2016 10:33 AM 05/11/2016 7:12 PM Full Code 05/04/2016 7:01 AM 05/04/2016 3:07 PM Care Teams Human Resources Assistant Relationship Specialty Start Date End Date Constanza Cardozo MD PCP - General Family Practice 10/15/21 [address] [facility] [address] Beto Taylor LSW Cosmetic Assembler 07/13/17 Sharif Nunez MD Rheumatology 10/08/[address] [facility] [address] [id number]
[2022-02-28] MEDS: dexAMETHasone 10 MG/ML inj IVP (01:58)
[2022-02-28 02:05] LABS: Appearance Urine Cloudy (Clear); Bilirubin Urine Negative (Negative); Blood Urine 2+ (Negative); Color Urine Yellow (Yellow); Glucose Urine Negative (Negative); Ketones Urine Negative (Negative); Leukocyte Esterase Urine 2+ (Negative); Nitrite Urine Positive (Negative); Protein Urine 2+ (Negative); Specific Gravity Urine 1.015 (1.000-1.030); Urobilinogen Urine 0.2 (0.2-1.0)
[2022-02-28 02:14] LABS: Amorphous Sediment Urine Moderate; Bacteria Urine Few; Squamous Epithelial Cell Urine Few (None-Few)
--- NOTE | 2022-02-28 04:06 | CRLHL7_ITS ---
For Patients: As a result of the Cures Act, medical imaging exams and procedure reports are released immediately into your electronic medical record. You may view this report before your referring provider. If you have questions, please contact your health care provider. INDICATION: COVID positive. Elevated D-dimer. History of DVT. TECHNIQUE: Ultrasound venous duplex bilateral lower extremity. Compression venous exam was performed using jacobsen-scale, color Doppler, and spectral Doppler analysis. COMPARISON: None. FINDINGS: Deep veins: Sonographic imaging demonstrates the right common femoral, deep femoral, superficial femoral, popliteal, posterior tibial and the contralateral right common femoral veins to be fully compressible with normal color Doppler blood flow. Superficial veins: Greater saphenous vein is fully compressible. No popliteal cyst. IMPRESSION: Normal bilateral lower extremity venous ultrasound, no sign of deep venous thrombosis. Dictated by Marcel Jc MD @ 02/28/2022 5:21:34 AM (Electronically Signed)
[2022-02-28] MEDS: cefTRIAXone 1 GM in 0.9 % SODIUM CHLORIDE Mini-bag 100 ML IVPB (04:19)
[2022-02-28] MEDS: ENOXAPARIN 40 MG/0.4 ML INJ SUBCUT (04:22)
[2022-02-28 04:37] LABS: Troponin, Point-of-Care* 0.48 ng/ml (0.01-0.04)
[2022-02-28] MEDS: ASPIRIN 81 MG TABLET EC PO (06:10)
--- NOTE | 2022-02-28 08:39 | ED.NURSE ---
attempted to call Kary Agosto with update, no answer
[2022-02-28 11:11] LABS: Troponin I* 0.36 ng/mL (0.01-0.04)
[2022-02-28] MEDS: PIPERACILLIN/TAZOBACTAM 2.25 GM in 0.9 % SODIUM CHLORIDE Mini-bag 100 ML IVPB ×3 (12:39→23:29)
--- NOTE | 2022-02-28 13:39 | REH.OT ---
OT/PT evals on hold until tomorrow per MD order.
--- NOTE | 2022-02-28 16:08 | PC.NURSE ---
Pt admitted to room 276 via stretcher from ED at 0942. She slept briefly in bed. VS and admission PE completed by primary RN. COVID positive pt precautions initiated per protocol. Eval by Dr. Oliva and myself. Positive blood cultures treated with IV ATB Zosyn. Pt aware that troponin .36. New order for secured entrance monitor initiated. PT assisted pt up to recliner this afternoon. Vizcarra to DD emptied 950 cc of clear light theresa urine. Pt states she has a bladder stimulator and normally performs straight cath on herself twice daily. Report to Tiara Connelly RN.
--- NOTE | 2022-02-28 18:52 | P.IMHP_ITS ---
Hospitalist- H&P: HPI History of Present Illness Date Seen: 02/28/22 Chief complaint: Difficulty Breathing Narrative: Vanessa Andino is a 81 year old female admitted to the hospital with 1 week history of fatigue cough and weakness. She has had decreased appetite. she has had 1 episode and of emesis and 1 episode of diarrhea. Today she was profoundly weak and dyspneic and EMS was called. They found her to be profoundly hypoxic with O2 sats in the 70s. Initially put on BiPAP then nasal cannula for hypoxia. She was too weak to get out of bed and was incontinent of stool in bed. In the emergency room she had diagnosis of COVID pneumonia. She has been fully vaccinated. She has had no known exposures. When she goes out she wears a mask. Her only contact is with her significant other, norm her knees and a friend who is visited. She is not aware of anybody having COVID. Review of Systems Narrative: Prior to the last week she reports he has generally been doing well. She is recovering from a fracture of her left humerus in August she had surgery for that and then replacement of the surgery Silver screws on her ORIF. She reports good progress with function in that arm. No other illness or injury prior to the past week [facility] Medical History (Updated 02/28/22 @ 19:05 by Jose Oliva MD) Back problem Gram-negative bacteremia High blood pressure History of DVT (deep vein thrombosis) Hyperlipidemia Lung nodules Osteoarthritis Prediabetes Presence of neurostimulator Recurrent urinary tract infection Rheumatoid arthritis Sacral nerve stimulator present Sensorineural hearing loss, bilateral Stage 3 chronic kidney disease Surgical History H/O hysterectomy with oophorectomy History of cholecystectomy S/P ORIF (open reduction internal fixation) fracture S/P total knee arthroplasty Family History Mother Stroke Rheumatoid arthritis Brother Diabetes Coronary artery disease Father Pancreatic cancer Social History Narrative: patient lives independently with her significant other, Cirilo Chambers. She has a niece, Peg. Those 2 would be healthcare power of civil litigation attorney. Code status is full. Highest level of school completed/degree received: some college, no degree Smoking Status: Never smoker Do you use any of these nicotine containing products: None Second hand tobacco smoke exposure: No How often do you have a drink containing alcohol: never How often do you have six or more drinks on one occasion: Never AUDIT-C Alcohol total score: 0 Non-prescribed substance use: denies use Caffeine: Yes (1/2 cup of coffee a day) Gender Identity: female Are you using contraception or practicing any form of control: No service: No Meds Home Medications and Allergies Home Medications Medication Instructions Recorded Confirmed Type methotrexate sodium 2.5 mg tablet 12.5 mg PO .weekly 09/23/21 02/28/22 History prednisone 1 mg tablet 1 mg PO DAILY 09/23/21 02/28/22 History aspirin 81 mg tablet,delayed 81 mg PO DAILY 10/04/21 02/28/22 History release (Adult Aspirin Regimen) multivitamin (Multiple Vitamins 1 tab PO QDAY 11/26/21 02/28/22 History tablet) amlodipine 10 mg tablet (Norvasc) 5 mg PO DAILY 12/03/21 02/28/22 History acetaminophen 325 mg tablet 650 mg PO Q4H PRN 02/28/22 02/28/22 History alendronate 70 mg tablet 70 mg PO SILVA 02/28/22 02/28/22 History calcium carbonate 600 mg-vitamin 2 cap PO DAILY 02/28/22 02/28/22 History D3 12.5 mcg (500 unit) capsule (Calcium 600 with Vitamin D3) ferrous sulfate 325 mg (65 mg 325 mg PO DAILY 02/28/22 02/28/22 History iron) tablet,delayed release furosemide 20 mg tablet 20 mg PO DAILY 02/28/22 02/28/22 History hydroxychloroquine 200 mg tablet 200 mg PO BID 02/28/22 02/28/22 History losartan 50 mg tablet 50 mg PO DAILY 02/28/22 02/28/22 History sennosides 8.6 mg-docusate sodium 1 tab-cap PO DAILY 02/28/22 02/28/22 History 50 mg tablet (Laxative Stool Softener With Senna) Allergies Allergy/AdvReac Type Severity Reaction Status Date / Time clonidine Allergy Mild Hallucinati Verified 02/28/22 01:15 ng leflunomide Allergy Mild Hallucinati Verified 02/28/22 01:15 ng lisinopril Allergy Mild increased Verified 02/28/22 01:15 creatinine methotrexate Allergy Mild did not Verified 02/28/22 01:15 feel well hydrocodone Allergy Unknown Vomiting Verified 02/28/22 01:15 oxycodone Allergy Unknown Verified 02/28/22 01:15 Opioids - Morphine Analogues Allergy Verified 02/28/22 01:15 Sulfa (Sulfonamide Allergy Verified 02/28/22 01:15 Antibiotics) surgical glue Allergy Uncoded 01/25/22 14:43 Exam Narrative: Exam Narrative: She is alert with mild increased work of breathing. She is able to give her own history. She is oriented to her circumstances. Eyes are normal. Pupils are equal round reactive light. Oropharynx is normal. Neck is supple without mass or adenopathy. Respirations are clear to auscultation except for a few fine basal crackles at the right lung base. No wheezing. No consolidation. Cardiovascular: S1, S2, regular rate and rhythm. No murmur gallop or rub. Abdomen: Bowel sounds active. Abdomen is soft without tenderness or mass. Shoulder appears to be healing well. Intact peripheral pulses. No significant edema. Good perfusion in all 4 extremities. Const: Vital Signs, click to edit/add: Vital Signs - 24 hr 02/28/22 00:10 02/28/22 01:45 02/28/22 01:00 Temperature 101.3 F H Pulse Rate Pulse Rate [Left P ulse Oximeter] 104 H 104 H Respiratory Rate 24 20 Blood Pressure Blood Pressure [Ri ght Arm] Blood Pressure [Ri ght Upper Arm] 155/64 H 147/79 H Pulse Oximetry 91 94 Oxygen Delivery Me thod Room Air Oxygen Flow Rate Fraction of Inspir ed Oxygen 02/28/22 01:30 02/28/22 01:45 02/28/22 02:00 Temperature Pulse Rate Pulse Rate [Left P ulse Oximeter] 103 H 96 98 Respiratory Rate 25 H 24 25 H Blood Pressure Blood Pressure [Ri ght Arm] Blood Pressure [Ri ght Upper Arm] 132/55 L 104/45 L 106/43 L Pulse Oximetry 95 95 95 Oxygen Delivery Me thod Nasal Cannula Nasal Cannula Nasal Cannula Oxygen Flow Rate 2 2 Fraction of Inspir ed Oxygen 02/28/22 02:15 02/28/22 02:30 02/28/22 03:15 Temperature Pulse Rate Pulse Rate [Left P ulse Oximeter] 95 97 89 Respiratory Rate 25 H Blood Pressure Blood Pressure [Ri ght Arm] Blood Pressure [Ri ght Upper Arm] 97/40 L 100/46 L 94/67 Pulse Oximetry 95 96 96 Oxygen Delivery Me thod Nasal Cannula Nasal Cannula Nasal Cannula Oxygen Flow Rate 2 1 1 Fraction of Inspir ed Oxygen 02/28/22 03:39 02/28/22 03:29 02/28/22 03:30 Temperature 98.0 F Pulse Rate 85 85 Pulse Rate [Left P ulse Oximeter] Respiratory Rate Blood Pressure Blood Pressure [Ri ght Arm] Blood Pressure [Ri ght Upper Arm] Pulse Oximetry 94 95 Oxygen Delivery Me thod Oxygen Flow Rate Fraction of Inspir ed Oxygen 02/28/22 03:35 02/28/22 03:45 02/28/22 04:00 Temperature Pulse Rate 85 83 85 Pulse Rate [Left P ulse Oximeter] Respiratory Rate Blood Pressure 90/48 L Blood Pressure [Ri ght Arm] Blood Pressure [Ri ght Upper Arm] Pulse Oximetry 94 95 95 Oxygen Delivery Me thod Oxygen Flow Rate Fraction of Inspir ed Oxygen 02/28/22 04:15 02/28/22 04:30 02/28/22 04:45 Temperature Pulse Rate 84 83 81 Pulse Rate [Left P ulse Oximeter] Respiratory Rate Blood Pressure Blood Pressure [Ri ght Arm] Blood Pressure [Ri ght Upper Arm] Pulse Oximetry 93 92 94 Oxygen Delivery Me thod Oxygen Flow Rate Fraction of Inspir ed Oxygen 02/28/22 05:00 02/28/22 05:06 02/28/22 05:15 Temperature Pulse Rate 83 83 79 Pulse Rate [Left P ulse Oximeter] Respiratory Rate Blood Pressure 113/55 L Blood Pressure [Ri ght Arm] Blood Pressure [Ri ght Upper Arm] Pulse Oximetry 93 94 92 Oxygen Delivery Me thod Oxygen Flow Rate Fraction of Inspir ed Oxygen 02/28/22 05:46 02/28/22 05:17 02/28/22 05:30 Temperature Pulse Rate 79 81 Pulse Rate [Left P ulse Oximeter] Respiratory Rate Blood Pressure 103/50 L Blood Pressure [Ri ght Arm] Blood Pressure [Ri ght Upper Arm] Pulse Oximetry 94 92 94 Oxygen Delivery Me thod Room Air Oxygen Flow Rate Fraction of Inspir ed Oxygen 02/28/22 05:31 02/28/22 05:45 02/28/22 05:46 Temperature Pulse Rate 80 80 80 Pulse Rate [Left P ulse Oximeter] Respiratory Rate Blood Pressure 114/54 L 106/61 Blood Pressure [Ri ght Arm] Blood Pressure [Ri ght Upper Arm] Pulse Oximetry 94 95 95 Oxygen Delivery Me thod Oxygen Flow Rate Fraction of Inspir ed Oxygen 02/28/22 07:00 02/28/22 08:00 02/28/22 09:00 Temperature Pulse Rate Pulse Rate [Left P ulse Oximeter] 80 83 73 Respiratory Rate 18 18 18 Blood Pressure Blood Pressure [Ri ght Arm] Blood Pressure [Ri ght Upper Arm] 99/48 L 111/53 L 109/69 Pulse Oximetry 94 95 95 Oxygen Delivery Me thod Room Air Room Air Room Air Oxygen Flow Rate Fraction of Inspir ed Oxygen 02/28/22 08:27 02/28/22 10:08 02/28/22 10:08 Temperature 98.2 F Pulse Rate Pulse Rate [Left P ulse Oximeter] 80 Respiratory Rate 18 Blood Pressure Blood Pressure [Ri ght Arm] 131/57 L Blood Pressure [Ri ght Upper Arm] Pulse Oximetry 95 Oxygen Delivery Me thod Room Air Room Air Oxygen Flow Rate Fraction of Inspir ed Oxygen 0.40 02/28/22 10:08 02/28/22 13:00 Temperature 98.2 F 98 F Pulse Rate Pulse Rate [Left P ulse Oximeter] 80 72 Respiratory Rate 18 18 Blood Pressure Blood Pressure [Ri ght Arm] 131/57 L 128/61 Blood Pressure [Ri ght Upper Arm] Pulse Oximetry 95 96 Oxygen Delivery Me thod Room Air Room Air Oxygen Flow Rate Fraction of Inspir ed Oxygen Documenting provider has reviewed patient's vital signs: yes Hospitalist - H&P: Result Labs Labs: Short CBC 02/28/22 Range/Units 00:45 WBC 10.71 (4.50-11.00) K/uL Hgb 10.3 L (12.0-16.0) gm/dL Hct 31.7 L (33.0-51.0) % Plt Count 299 (140-440) K/uL BMP 02/28/22 00:45 Sodium 133 L Potassium 3.8 Chloride 107 Carbon Dioxide 19 L BUN 18 Creatinine 1.0 Glucose 124 H Calcium 8.0 L Cardiac Enzymes 02/28/22 02/28/22 Range/Units 00:45 10:30 Total Creatine Kinase 82 (41-117) U/L Troponin I 0.36 H* (0.01-0.04) ng/mL Liver Function 02/28/22 Range/Units 00:45 Total Bilirubin 0.8 (0.1-1.5) mg/dL AST 45 H (12-35) U/L ALT 30 (4-35) U/L Alkaline Phosphatase 214 H (40-150) U/L Albumin 3.4 (3.3-5.0) g/dL Urine 02/28/22 Range/Units 02:00 Urine Color Yellow (Yellow) Urine Appearance Cloudy A (Clear) Urine pH 6.0 (5.0-8.5) Ur Specific [place] 1.015 (1.000-1.030) Urine Protein 2+ A (Negative) Urine Glucose (UA) Negative (Negative) Assessment and Plan Assessment and plan (1) Gram-negative bacteremia: Problem comment: Positive blood cultures from admission the ED. treat with Zosyn pending clinical course and culture and sensitivities Status: Acute (2) Pneumonia due to COVID-19 virus: Problem comment: Predominantly right-sided infiltrates on x-ray and CT. Ongoing use of dexamethasone and Remdesivir depending on her clinical course Status: Acute (3) Elevated troponin I level: Problem comment: Due to COVID pneumonia. Obtain echocardiogram and trend troponin, monitor for symptoms. threat monitoring analyst. Status: Acute (4) Hypoxia: Problem comment: Due to COVID pneumonia. Already better this afternoon. Received dexamethasone and Remdesivir. Status: Acute (5) Lung nodules: Problem comment: CT 02/28/2022 shows stable right upper lobe nodule and increasing right lower lobe nodule. Followed by Dr. Rosado at [facility] Status: Acute Plan Admit to hospital for management of COVID, pneumonia, Gram-negative bacteremia, elevated troponin. Total time spent today is 80 minutes, 50 minutes in coordination of care and dis cussing with patient other providers management of troponin, bacteremia, COVID pneumonia.
[2022-02-28] MEDS: SODIUM CHLORIDE 0.9 % (FLUSH) 10 ML SYRINGE 5 ML IVF (21:15)
[2022-02-28] MEDS: HYDROXYCHLOROQUINE 200 MG TABLET PO (21:15)
--- NOTE | 2022-02-28 22:40 | PC.NURSE ---
Shift [id number]- Patient denies pain. She is up to chair this evening with assist of 1, walker and gait belt. Appetite intact. She remains on RA with saturations >90%. Vizcarra patent.
[2022-03-01] VITALS (8 sets, daily range): BP systolic 112–135; BP diastolic 54–70; PULSE 62–78; RESP 16–20; TEMP 36.4–36.6; O2SAT 95–98
--- NOTE | 2022-03-01 05:31 | PC.NURSE ---
patialan plesant and cooperative, RA entire shift with sats remaining med 90s. tele 1st degree block.
[2022-03-01] MEDS: PIPERACILLIN/TAZOBACTAM 2.25 GM in 0.9 % SODIUM CHLORIDE Mini-bag 100 ML IVPB ×4 (05:44→23:42)
[2022-03-01 09:17] LABS: Lactate* 1.2 mmol/L (0.5-1.9)
[2022-03-01 09:21] LABS: Hematocrit 30.3 % (33.0-51.0); Hemoglobin* 10.1 gm/dL (12.0-16.0); Immature Granulocytes Pct Auto 0.9 %; Lymphocytes Percent Auto 3.4 % (20-44); Mean Corpuscular HGB Conc 33 gm/dL (32-36); Mean Corpuscular Hemoglobin 31 pg (26-34); Mean Corpuscular Volume 92 fL (80-100); Monocytes Percent Auto 1.4 % (0.0-11.0); Neutrophils Percent Auto 94.3 % (42.0-72.0); Platelet Count* 280 K/uL (140-440); RDW Coefficient of Variation % 15.7 % (11.5-15.5)
[2022-03-01] MEDS: HYDROXYCHLOROQUINE 200 MG TABLET PO ×2 (09:59→20:36)
[2022-03-01] MEDS: AMLODIPINE 5 MG TABLET PO (10:00)
[2022-03-01] MEDS: FERROUS SULFATE 325 MG TABLET PO (10:00)
[2022-03-01] MEDS: ASPIRIN 81 MG TABLET EC PO (10:00)
[2022-03-01] MEDS: predniSONE 1 MG TABLET PO (10:00)
[2022-03-01] MEDS: SENNOSIDES/DOCUSATE TABLET 1 TAB PO (10:00)
[2022-03-01] MEDS: MULTIVITAMIN/MINERALS 1 TABLET 1 TAB PO (10:01)
[2022-03-01] MEDS: LOSARTAN POTASSIUM 50 MG TABLET PO (10:01)
[2022-03-01 10:29] LABS: Chloride* 108 mmol/L (96-114); Sodium* 136 mmol/L (135-149); Troponin I* 0.26 ng/mL (0.01-0.04)
[2022-03-01 10:30] LABS: Blood Urea Nitrogen* 38 mg/dL (7-30); Calcium* 7.6 mg/dL (8.4-10.6); Carbon Dioxide* 21 mmol/L (20-32); Creatinine* 1.1 mg/dL (0.5-1.5); Est. Creatinine Clearance* 28.32; Estimated Glomerular Filt Rate 50 ml/min; Glucose* 181 mg/dL (60-115); Slide Review Reflex Yes; White Blood Count* 30.39 K/uL (4.50-11.00)
[2022-03-01 10:32] LABS: Slide Review Acceptable Review (Acceptable)
--- NOTE | 2022-03-01 10:45 | PM.IMPN1 ---
Progress Note: A&P Assessment and plan (1) Sepsis: Problem details: On admission had fever, tachycardia, tachypnea, hypotension, hypoxia. Initially thought due to COVID pneumonia. Now with Gram-negative bacteremia and urinary tract infection this may be sepsis from urinary source. Status: Acute (2) Gram-negative bacteremia: Problem details: Positive blood cultures from admission the ED. treat with Zosyn pending clinical course and culture and sensitivities. Possible urinary source. Status: Acute (3) Pneumonia due to COVID-19 virus: Problem details: Predominantly right-sided infiltrates on x-ray and CT. Ongoing use of dexamethasone and Remdesivir depending on her clinical course. Discontinue dexamethasone and Remdesivir as she is no longer hypoxic and clinically improving. Status: Acute (4) Elevated troponin I level: Problem details: Likely due to sepsis and COVID pneumonia. Normal echo. Stress-induced ischemia. Status: Acute (5) Hypoxia: Problem details: Due to COVID pneumonia. Already better this afternoon. Received dexamethasone and Remdesivir. Clinically improved. Status: Acute (6) Lung nodules: Problem details: CT 02/28/2022 shows stable right upper lobe nodule and increasing right lower lobe nodule. Followed by Dr. Rosado at [facility] Status: Acute (7) Urinary retention: Problem details: Vizcarra catheter here. Return to self catheterization at discharge Status: Acute (8) Urinary tract infection: Problem details: Appears to be E coli. Awaiting blood culture results. Suspect this is the source of bacteremia Status: Acute Plan Continue in hospital pending culture results and clinical course. Time Spent With Patient Total time spent: Total time spent today is 40 minutes, 30 minutes in coordination of care and discussing with patient other providers ongoing evaluation management of sepsis, bacteremia, urinary tract infection. Subjective Date Seen: 03/01/22 Interval history: 81-year-old female seen in followup of hypoxic respiratory failure and sepsis with COVID pneumonia and Gram-negative bacteremia. Patient reports feeling better today. She feels stronger. Her breathing is better. She has been able to eat. She has no specific concerns. Exam Narrative: Exam Narrative: She is alert and appears in no distress. She is oriented to her circumstances. Respirations are clear to auscultation. Cardiovascular: S1, S2, regular rate and rhythm. Abdomen is soft bowel sounds are active there is no tenderness. Vizcarra catheter is draining a relatively clear urine. Extremities with no significant edema. Const: Vital Signs, click to edit/add: Vital Signs - 24 hr 02/28/22 13:00 02/28/22 19:37 02/28/22 17:00 Temperature 98 F Pulse Rate 80 Pulse Rate [Left P ulse Oximeter] 72 77 Respiratory Rate 18 Blood Pressure [Ri ght Arm] 128/61 Pulse Oximetry 96 Oxygen Delivery Me thod Room Air 02/28/22 17:00 02/28/22 23:31 02/28/22 23:00 Temperature 98.1 F Pulse Rate Pulse Rate [Left P ulse Oximeter] 78 76 Respiratory Rate 18 18 Blood Pressure [Ri ght Arm] 115/53 L Pulse Oximetry 96 97 Oxygen Delivery Me thod Room Air Room Air 02/28/22 23:00 03/01/22 01:00 03/01/22 01:46 Temperature Pulse Rate 71 Pulse Rate [Left P ulse Oximeter] Respiratory Rate 18 Blood Pressure [Ri ght Arm] Pulse Oximetry 97 98 Oxygen Delivery Me thod Room Air 03/01/22 05:42 Temperature Pulse Rate Pulse Rate [Left P ulse Oximeter] 67 Respiratory Rate 16 Blood Pressure [Ri ght Arm] Pulse Oximetry 96 Oxygen Delivery Me thod Room Air Documenting provider has reviewed patient's vital signs: yes Labs Labs: Laboratory Results - last 24 hr 02/28/22 03/01/22 03/01/22 10:30 09:05 09:05 WBC 30.39 H* RBC 3.30 L Hgb 10.1 L Hct 30.3 L MCV 92 MCH 31 MCHC 33 RDW Coeff of Randa 15.7 H Plt Count 280 Neut % (Auto) 94.3 H Lymph % (Auto) 3.4 L [place] % (Auto) 1.4 Eos % (Auto) 0.0 Baso % (Auto) 0.0 Neut # (Auto) 28.70 H Lymph # (Auto) 1.00 [place] # (Auto) 0.40 Eos # (Auto) 0.00 Baso # (Auto) 0.00 Abs Immat Gran (auto) 0.30 Imm/Tot Granulo (auto) 0.9 Diff Slide Review Acceptable Review Sodium 136 Potassium 4.0 Chloride 108 Carbon Dioxide 21 BUN 38 H Creatinine 1.1 Estimated Creat Clear 28.32 Estimated GFR 50 Glucose 181 H Lactate Calcium 7.6 L Troponin I 0.36 H* 03/01/22 03/01/22 09:05 09:05 WBC RBC Hgb Hct MCV MCH MCHC RDW Coeff of Randa Plt Count Neut % (Auto) Lymph % (Auto) [place] % (Auto) Eos % (Auto) Baso % (Auto) Neut # (Auto) Lymph # (Auto) [place] # (Auto) Eos # (Auto) Baso # (Auto) Abs Immat Gran (auto) Imm/Tot Granulo (auto) Diff Slide Review Sodium Potassium Chloride Carbon Dioxide BUN Creatinine Estimated Creat Clear Estimated GFR Glucose Lactate 1.2 Calcium Troponin I 0.26 H*
--- NOTE | 2022-03-01 18:44 | PC.NURSE ---
pt. pleasant and cooperative. afebrile, denies sob, pain. Pt. at 98% on RA. IV in left AC needed reinforcement, but still patent. higginbotham draining, and patent. Pt. Assist of 1 w/walker and GB tolerating activity well. Possible discharge to home tomorrow.
[2022-03-01] MEDS: ACETAMINOPHEN 325 MG TABLET 650 MG PO (18:58)
[2022-03-01] MEDS: SODIUM CHLORIDE 0.9 % (FLUSH) 10 ML SYRINGE 5 ML IVF (20:36)
[2022-03-01] MEDS: 0.9 % SODIUM CHLORIDE 250 ml IV (23:43)
[2022-03-02] VITALS (8 sets, daily range): BP systolic 115–145; BP diastolic 50–86; PULSE 58–72; RESP 16–18; TEMP 36.7–36.8; O2SAT 95–98
[2022-03-02] MEDS: PIPERACILLIN/TAZOBACTAM 2.25 GM in 0.9 % SODIUM CHLORIDE Mini-bag 100 ML IVPB ×2 (05:37→11:38)
--- NOTE | 2022-03-02 07:15 | PC.NURSE ---
Pt on room air entire night. Denies pain, SOB, chest pain. Up with SBA & walker. Vizcarra patent and draining.
[2022-03-02] MEDS: FERROUS SULFATE 325 MG TABLET PO (08:46)
[2022-03-02] MEDS: AMLODIPINE 5 MG TABLET PO (08:46)
[2022-03-02] MEDS: HYDROXYCHLOROQUINE 200 MG TABLET PO ×2 (08:46→20:14)
[2022-03-02] MEDS: MULTIVITAMIN/MINERALS 1 TABLET 1 TAB PO (08:46)
[2022-03-02] MEDS: predniSONE 1 MG TABLET PO (08:46)
[2022-03-02] MEDS: ASPIRIN 81 MG TABLET EC PO (08:46)
[2022-03-02] MEDS: LOSARTAN POTASSIUM 50 MG TABLET PO (08:46)
[2022-03-02] MEDS: SENNOSIDES/DOCUSATE TABLET 1 TAB PO (08:46)
[2022-03-02] MEDS: SODIUM CHLORIDE 0.9 % (FLUSH) 10 ML SYRINGE 5 ML IVF ×2 (08:47→20:15)
--- NOTE | 2022-03-02 14:38 | PC.NURSE ---
End of shift report: Patient is alert and oriented and very pleasant. Had 2 BMs today. catheter is patent and draining. PIV is patent and intact. Changed antibiotics from zosyn to ceftriaxone. Vital signs within normal limits. Ambulates with assist of 1 and a walker. Skin intact. Slight edema in lower extremities. Tolerating a regular diet. Here for another day with IV antibiotics due to positive blood cultures.
[2022-03-02] MEDS: cefTRIAXone 2 GM in 0.9 % SODIUM CHLORIDE Mini-bag 100 ML IVPB (15:43)
[2022-03-02] MEDS: 0.9 % SODIUM CHLORIDE 250 ml IV (15:44)
--- NOTE | 2022-03-02 15:52 | P.IMPN_ITS ---
Progress Note: A&P Assessment and plan (1) Sepsis: Problem details: On admission had fever, tachycardia, tachypnea, hypotension, hypoxia. Initially thought due to COVID pneumonia. Now with Gram-negative bacteremia and urinary tract infection this may be sepsis from urinary source. Status: Acute (2) Gram-negative bacteremia: Problem details: Positive blood cultures from admission the ED. switch from Zosyn to ceftriaxone. Possible discharge tomorrow if doing well. Status: Acute (3) Pneumonia due to COVID-19 virus: Problem details: Predominantly right-sided infiltrates on x-ray and CT. Minimally symptomatic. No hypoxia. Discontinue dexamethasone and Remdesivir as she is no longer hypoxic and clinically improving. Status: Acute (4) Elevated troponin I level: Problem details: Likely due to sepsis and COVID pneumonia. Normal echo. Stress-induced ischemia. Status: Acute (5) Hypoxia: Problem details: Due to COVID pneumonia. Status: Acute (6) Lung nodules: Problem details: CT 02/28/2022 shows stable right upper lobe nodule and increasing right lower lobe nodule. Followed by Dr. Rosado at [facility] Status: Acute (7) Urinary retention: Problem details: Vizcarra catheter here. Return to self catheterization at discharge Status: Acute (8) Urinary tract infection: Problem details: Appears to be E coli. Awaiting blood culture results. Suspect this is the source of bacteremia. Status: Acute Plan Continue in hospital for 1 more day. If doing well switch to oral treatment of her Gram-negative bacteremia as an outpatient. Time Spent With Patient Total time spent: Total time spent today is 40 minutes, 30 minutes in coordination care discussed with patient, her significant other and other providers about ongoing evaluation and management of bacteremia and COVID pneumonia Subjective Date Seen: 03/02/22 Interval history: 81-year-old female seen in followup of hospitalization for COVID pneumonia, UTI and now bacteremia. Patient now is growing E coli from blood and urine. Sensitive to cephalosporins. She reports generally feeling well. No shortness of breath. No significant cough. She has been eating well. Exam Narrative: Exam Narrative: She is alert appears in no distress. Speech is normal. She is hard of hearing. Respirations with a few fine crackles scattered throughout lung mitchell otherwise clear. Cardiovascular: S1, S2, regular rate and rhythm. No murmur gallop or rub. Abdomen: Bowel sounds active. Abdomen is soft without tenderness or mass. Extremities without edema. Vizcarra in place. Const: Vital Signs, click to edit/add: Vital Signs - 24 hr 03/01/22 19:00 03/01/22 23:00 03/01/22 23:00 Temperature 97.6 F 97.9 F Pulse Rate Pulse Rate [Left P ulse Oximeter] 72 71 Respiratory Rate 18 20 20 Blood Pressure [Ri ght Arm] 122/55 L 135/60 Blood Pressure [Ri ght forearm] Pulse Oximetry 95 95 95 Oxygen Delivery Me thod Room Air Room Air Room Air 03/01/22 23:00 03/02/22 01:00 03/02/22 03:22 Temperature Pulse Rate 62 Pulse Rate [Left P ulse Oximeter] 61 Respiratory Rate 18 Blood Pressure [Ri ght Arm] Blood Pressure [Ri ght forearm] Pulse Oximetry 96 95 Oxygen Delivery Me thod Room Air 03/02/22 08:43 03/02/22 10:02 03/02/22 10:02 Temperature 98.1 F Pulse Rate 58 L Pulse Rate [Left P ulse Oximeter] 66 Respiratory Rate 16 Blood Pressure [Ri ght Arm] 145/62 H Blood Pressure [Ri ght forearm] Pulse Oximetry 98 97 Oxygen Delivery Co thod Room Air Room Air 03/02/22 11:58 03/02/22 15:00 03/02/22 15:00 Temperature 98.0 F 98.1 F Pulse Rate 69 Pulse Rate [Left P ulse Oximeter] 65 67 Respiratory Rate 16 16 Blood Pressure [Ri ght Arm] 118/86 Blood Pressure [Ri ght forearm] 115/50 L Pulse Oximetry 96 96 Oxygen Delivery Co thod Room Air Room Air
--- NOTE | 2022-03-02 17:49 | PC.NURSE ---
End of Shift: Patient pleasant and cooperative. Patient vitally stable, lungs with light crackles in lower lobes, BS WNL, IV patent and intact. Patient with 2+ pitting edema in LE, on RA. Patient denies pain. Patient tolerating regular diet, urinating, and with loose stools today. Patient SBA, maranda, gb.
[2022-03-03 01:00] VITALS: O2SAT 97
[2022-03-03 02:27] VITALS: BP 150/58; PULSE 71; RESP 20; TEMP 36.8; O2SAT 96
--- NOTE | 2022-03-03 05:14 | PC.NURSE ---
[id number]: Patient pleasant and cooperative. A&Ox3. [place] with RODRIGUEZ in place. A1,walker,GB. Denies pain. O2>90% on RA. Vizcarra cath patent. Tolerates regular diet with increased appetite.
[2022-03-03 07:00] VITALS: PULSE 56; O2SAT 97
[2022-03-03 07:35] VITALS: PULSE 32; PULSE 56
[2022-03-03 07:58] VITALS: BP 133/58; PULSE 30; PULSE 64; RESP 18; TEMP 36.6; O2SAT 97
[2022-03-03] MEDS: HYDROXYCHLOROQUINE 200 MG TABLET PO (08:57)
[2022-03-03] MEDS: LOSARTAN POTASSIUM 50 MG TABLET PO (08:57)
[2022-03-03] MEDS: MULTIVITAMIN/MINERALS 1 TABLET 1 TAB PO (08:58)
[2022-03-03] MEDS: ASPIRIN 81 MG TABLET EC PO (08:58)
[2022-03-03] MEDS: AMLODIPINE 5 MG TABLET PO (08:58)
[2022-03-03] MEDS: FERROUS SULFATE 325 MG TABLET PO (08:58)
[2022-03-03] MEDS: predniSONE 1 MG TABLET PO (08:58)
[2022-03-03 09:22] LABS: Basophils Percent Auto 0.1 % (0.0-3.0); Hematocrit 34.5 % (33.0-51.0); Hemoglobin* 11.2 gm/dL (12.0-16.0); Immature Granulocytes Pct Auto 0.9 %; Lymphocytes Percent Auto 16.3 % (20-44); Mean Corpuscular HGB Conc 33 gm/dL (32-36); Mean Corpuscular Hemoglobin 30 pg (26-34); Mean Corpuscular Volume 93 fL (80-100); Monocytes Percent Auto 3.9 % (0.0-11.0); Neutrophils Percent Auto 77.8 % (42.0-72.0); Platelet Count* 329 K/uL (140-440); RDW Coefficient of Variation % 15.8 % (11.5-15.5); White Blood Count* 15.01 K/uL (4.50-11.00)
[2022-03-03 09:28] LABS: Slide Review Reflex No
[2022-03-03 09:34] LABS: Chloride* 108 mmol/L (96-114); Sodium* 135 mmol/L (135-149)
[2022-03-03 09:35] LABS: Potassium* 4.6 mmol/L (3.6-5.1)
[2022-03-03 09:37] LABS: Carbon Dioxide* 22 mmol/L (20-32); Creatinine* 0.9 mg/dL (0.5-1.5); Est. Creatinine Clearance* 31.15; Estimated Glomerular Filt Rate 64 ml/min
[2022-03-03 09:38] LABS: Blood Urea Nitrogen* 32 mg/dL (7-30); Calcium* 8.6 mg/dL (8.4-10.6); Glucose* 84 mg/dL (60-115)
[2022-03-03 09:54] LABS: Troponin I* 0.08 ng/mL (0.01-0.04)
--- NOTE | 2022-03-03 11:25 | PC.NURSE ---
Noted on phototypesetting equipment monitor that rhythm was in a-fib and low heart rate (HR) of 30s which was a change. Informed Dr. Oliva, obtained EKG, and labs were also drawn. EKG results given to Dr. Oliva- no new orders. Pt. up w/SBA and walker. One episode loose stool, but semi-formed. Held senna. Denies pain, cough, chest pain or pressure. Good appetite. Discharge orders received. Vizcarra removed w/tip intact. Pt. looking forward to being home. Currently waiting for her ride to arrive.
--- NOTE | 2022-03-03 11:58 | PM.DS1 ---
DS: Providers Provider Date Seen: 03/03/22 Date of admission: 02/28/22 10:52 Primary care physician: Constanza Cardozo MD Admitting Clinician: Jose Oliva MD Attending Physician on discharge: Jose Oliva MD Date of Discharge: 03/03/22 DS: Diagnosis Discharge Diagnosis (1) Sepsis: Status: Acute Problem details: On admission had fever, tachycardia, tachypnea, hypotension, hypoxia. Initially thought due to COVID pneumonia. Now with Gram-negative E coli bacteremia and urinary tract infection with E coli are thought to be the cause of sepsis. Much improved (2) Gram-negative bacteremia: Status: Acute Problem details: Positive blood cultures from admission the ED. E coli sensitive to cephalosporins (3) Lung nodules: Status: Acute Problem details: CT 02/28/2022 shows stable right upper lobe nodule and increasing right lower lobe nodule. Followed by Dr. Rosado at [facility] (4) Pneumonia due to COVID-19 virus: Status: Acute Problem details: Predominantly right-sided infiltrates on x-ray and CT. Minimally symptomatic. No hypoxia. Discontinue dexamethasone and Remdesivir as she is no longer hypoxic and clinically improving. (5) Elevated troponin I level: Status: Acute Problem details: Likely due to sepsis and COVID pneumonia. Normal echo. Stress-induced ischemia. (6) Urinary retention: Status: Acute Problem details: Vizcarra catheter here. Return to self catheterization at discharge (7) Hypoxia: Status: Acute Problem details: Due to COVID pneumonia. Resolved relatively quickly (8) Neurogenic bladder: Status: Acute Problem details: Self catheterization at home. (9) Urinary tract infection: Status: Acute Problem details: E coli sensitive to cephalosporins (10) Bradycardia: Status: Acute Problem details: She has been on telemetry during this hospital stay. This morning she had a brief episode of bradycardia into the 30s. It appears that she dropped some P-waves when this occurred. Shortly after this she had an electrocardiogram which was normal sinus rhythm and otherwise unremarkable. (11) Non-STEMI (non-ST elevated myocardial infarction): Status: Acute Problem details: She had a elevation of her troponins thought secondary to stress ischemia from sepsis and COVID. She did not have chest pain. She did not have abnormal EKG. Her troponin has trended down. DS: Summary Hospital Course Hospital Course: 81-year-old female admitted to the emergency room profoundly ill with fever, tachycardia, tachypnea, hypoxia, hypotension. Initial evaluation showed that she had findings consistent with COVID pneumonia most prominently in the right lung. This was thought to be the cause of her sepsis. Shortly after admission however blood in urine cultures grew out E coli. It was thought more likely that she was having sepsis from a urinary source and the COVID with secondary. Shortly after admission she no longer needs supplemental oxygen. She was briefly treated with remdesivir and dexamethasone for hypoxic respiratory failure but then these were discontinued when she clinically improved. She had a Vizcarra catheter placed as she was self cathing at home and there was concern about urinary obstruction and monitoring of TERENCE. This was discontinued the time of discharge and she will return to self catheterization. Status at Discharge Cognitive/behavioral status at discharge: Back to baseline Functional status at discharge: uses cane/walker Overall status at discharge: patient is progressing back to baseline Time Spent with Patient Time attestation: Total time spent providing and/or coordinating discharge services: Time spent: Greater than 30 minutes Exam Narrative: Exam Narrative: She is alert and in no distress. Breathing room air. Respirations with few crackles on the right. Otherwise clear to auscultation. Breathing is unlabored. Cardiovascular: S1, S2, regular rhythm. Abdomen is soft without tenderness. Extremities without significant edema. Const: Vital Signs, click to edit/add: Vital Signs - 24 hr 03/02/22 15:00 03/02/22 15:00 03/02/22 15:00 Temperature 98.1 F Pulse Rate 69 Pulse Rate [Left P ulse Oximeter] 67 67 Respiratory Rate 16 16 Blood Pressure [Ri ght Arm] Blood Pressure [Ri ght forearm] 115/50 L Pulse Oximetry 96 Oxygen Delivery Me thod Room Air 03/02/22 15:00 03/02/22 19:00 03/03/22 01:00 Temperature 98.0 F Pulse Rate Pulse Rate [Left P ulse Oximeter] 72 Respiratory Rate 18 Blood Pressure [Ri ght Arm] 122/63 Blood Pressure [Ri ght forearm] 115/50 L Pulse Oximetry 96 97 97 Oxygen Delivery Me thod Room Air Room Air 03/02/22 23:00 03/02/22 23:00 03/03/22 02:27 Temperature 98.2 F 98.2 F Pulse Rate Pulse Rate [Left P ulse Oximeter] 72 71 Respiratory Rate 18 18 20 Blood Pressure [Ri ght Arm] 138/56 L 150/58 H Blood Pressure [Ri ght forearm] Pulse Oximetry 97 97 96 Oxygen Delivery Me thod Room Air Room Air Room Air 03/02/22 23:00 03/03/22 07:58 03/03/22 07:58 Temperature 98 F Pulse Rate 71 30 L Pulse Rate [Left P ulse Oximeter] 64 Respiratory Rate 18 Blood Pressure [Ri ght Arm] 133/58 L Blood Pressure [Ri ght forearm] Pulse Oximetry 97 Oxygen Delivery Me thod Room Air 03/03/22 07:35 03/03/22 07:35 03/03/22 07:00 Temperature Pulse Rate 32 L 56 L Pulse Rate [Left P ulse Oximeter] Respiratory Rate Blood Pressure [Ri ght Arm] Blood Pressure [Ri ght forearm] Pulse Oximetry 97 Oxygen Delivery Me thod 03/03/22 07:00 03/03/22 07:00 Temperature Pulse Rate Pulse Rate [Left P ulse Oximeter] 56 L Respiratory Rate Blood Pressure [Ri ght Arm] Blood Pressure [Ri ght forearm] Pulse Oximetry 97 Oxygen Delivery Me thod Room Air Documenting provider has reviewed patient's vital signs: yes DS: Data Data Completed and Pending Labs on day of discharge: Labs from last 24 hours 03/03/22 03/03/22 09:12 09:04 WBC 15.01 H RBC 3.70 L Hgb 11.2 L Hct 34.5 MCV 93 MCH 30 MCHC 33 RDW Coeff of Randa 15.8 H Plt Count 329 Neut % (Auto) 77.8 H Lymph % (Auto) 16.3 L [place] % (Auto) 3.9 Eos % (Auto) 1.0 Baso % (Auto) 0.1 Neut # (Auto) 11.70 H Lymph # (Auto) 2.40 [place] # (Auto) 0.60 Eos # (Auto) 0.20 Baso # (Auto) 0.00 Abs Immat Gran (auto) 0.10 Imm/Tot Granulo (auto) 0.9 Sodium 135 Potassium 4.6 Chloride 108 Carbon Dioxide 22 BUN 32 H Creatinine 0.9 Estimated Creat Clear 31.15 Estimated GFR 64 Glucose 84 Calcium 8.6 Magnesium 2.0 Troponin I 0.08 H* Preliminary micro results at discharge 03/01/22 09:10 Blood Culture - Preliminary Blood NO GROWTH AFTER 48 HOURS 03/01/22 09:05 Blood Culture - Preliminary Blood NO GROWTH AFTER 48 HOURS 02/28/22 00:50 Blood Culture - Preliminary Blood Gram negative jose antonio Discharge Plan Discharge Disposition: Home, Self-Care Date of Admission: 02/28/22 10:52 Attending Provider on Discharge: Jose Oliva Primary Care Provider: Constanza Cardozo I Condition: Improved Anticipated Discharge Date/Time: 03/03/22 10:20 Discharge Medications: New cephalexin 500 mg capsule 500 mg PO TID Qty: 21 0RF Continued multivitamin [Multiple Vitamins] Tablet 1 tab PO QDAY aspirin [Adult Aspirin Regimen] 81 mg tablet,delayed release (DR/EC) 81 mg PO DAILY Hold Instructions: Resume on 10/12/21. methotrexate sodium 2.5 mg tablet 12.5 mg PO .weekly Hold Instructions: Resume on 10/15/21. Label Comments: TAKE 5 TABLETS BY MOUTH EVERY WEEK prednisone 1 mg tablet 1 mg PO DAILY Label Comments: PATIENT REPORTS THAT SHE TAKES 1-2 MG ON ALTERNATING DAYS TAKE 1 TABLET BY MOUTH EVERY DAY Rx Instructions: 1 MG DUE TODAY 10/04/21 amlodipine [Norvasc] 10 mg tablet 5 mg PO DAILY ferrous sulfate 325 mg (65 mg iron) tablet,delayed release (DR/EC) 325 mg PO DAILY Label Comments: TAKE 1 TABLET BY MOUTH ONCE DAILY WITH A MEAL. sennosides-docusate sodium [Lax Stool Softener With Senna] 8.6-50 mg tablet 1 tab-cap PO DAILY acetaminophen 325 mg tablet 650 mg PO Q4H PRN Label Comments: TAKE 2 TABLETS BY MOUTH EVERY 4 HOURS NEEDED calcium carbonate-vitamin D3 [Calcium 600 with Vitamin D3] 600 mg-12.5 mcg (500 unit) capsule 2 cap PO DAILY hydroxychloroquine 200 mg tablet 200 mg PO BID Label Comments: TAKE 1 TABLET BY MOUTH TWICE DAILY losartan 50 mg tablet 50 mg PO DAILY furosemide 20 mg tablet 20 mg PO DAILY alendronate 70 mg tablet 70 mg PO SILVA Label Comments: TAKE 1 TABLET BY MOUTH EVERY 7 DAYS ON AN EMPTY STOMACH. REMAIN UPRIGHT FOR 30 MINUTES. TAKE WITH 8 OUNCES OF WATER Discharge Orders: Discharge Order (Routine); Ordered 03/03/22 Ordered By: Jose Oliva Patient Education: Cephalexin (By mouth), Hypoxia (GEN), COVID-19 (Coronavirus Disease 2019) (DC) Additional Instructions: Continue routine self catheterization for urinary retention. Activity Level: Activity as Tolerated Discharge Diet: Regular Follow Up Appointments: Constanza Cardozo MD [Primary Care Provider] - 03/10/22 12:45 pm Forms: [employer] Info Instructions
[2022-03-03] MEDS: cephALEXin 500 MG CAPSULE PO (12:16)
--- NOTE | 2022-03-03 14:07 | PC.NURSE ---
Discharge information reviewed w/patient including picking up prescribed antibiotics. Significant other arrived and present for most of D/C teachings. Pt. left M/S unit w/paperwork, belongings via wheelchair at 1236.
== END 2022-03-03 12:36 | disposition home or self-care (01) | DRG 871 ==
LOC: ED 08:52 → MEDSURG 09:15
PROVIDERS: Admitting Provider Family Medicine; Emergency Provider Family Medicine; PCP Family Medicine; Visit Provider Family Medicine
DX: A41.89 Other specified sepsis (principal); I21.A1 Myocardial infarction type 2; U07.1 COVID-19; J12.82 Pneumonia due to coronavirus disease 2019; N39.0 Urinary tract infection, site not specified; B96.20 Unspecified Escherichia coli [E. coli] as the cause of diseases classified elsewhere; R09.02 Hypoxemia; R00.1 Bradycardia, unspecified; Z86.718 Personal history of other venous thrombosis and embolism; Z79.01 Long term (current) use of anticoagulants; R73.03 Prediabetes; M06.9 Rheumatoid arthritis, unspecified; I12.9 Hypertensive chronic kidney disease with stage 1 through stage 4 chronic kidney disease, or unspecified chronic kidney disease; N18.30 Chronic kidney disease, stage 3 unspecified; H90.3 Sensorineural hearing loss, bilateral; E04.1 Nontoxic single thyroid nodule; R91.1 Solitary pulmonary nodule; Z87.440 Personal history of urinary (tract) infections; Z96.82 Presence of neurostimulator; R33.9 Retention of urine, unspecified; N31.9 Neuromuscular dysfunction of bladder, unspecified; E78.5 Hyperlipidemia, unspecified
CPT/HCPCS: 36415; 71045; 71260; 80048; 80053; 81001; 82077; 82550; 82803; 83605; 83735; 83880; 84484; 85025; 85379; 86140; 87040; 87086; 87186; 87502; 87634; 87635; 93005; 93308; 93321; 93325; 93970; 94660; 94761; 97110; 97116; 97161; 97165; 99285; 99291; G0378; A9153; A9270; J0696; J1100; J1650; J2543; J7050; J7512; Q9967

== ENCOUNTER 2022-07-13 00:11 | Outpatient (CLI) | payer MEDICARE, BC, SELFPAY | END 2022-07-13 00:12 | disposition home or self-care (01) | LOC: AMB 07-15 13:51 | PROVIDERS: PCP Family Medicine; Visit Provider Family Medicine | DX: R50.9 Fever, unspecified (principal); R11.2 Nausea with vomiting, unspecified | CPT/HCPCS: A0425; A0427 ==

== ENCOUNTER 2022-07-13 00:36 | Inpatient (IN) | payer MEDICARE, BC, SELFPAY ==
[2022-07-13] VITALS (22 sets, daily range): BP systolic 117–158; BP diastolic 49–75; PULSE 72–95; RESP 16–18; TEMP 36.9–37.3; O2SAT 93–97; BMI 28.3; BMI 28.7
--- NOTE | 2022-07-13 01:08 | CRLHL7_ITS ---
For Patients: As a result of the Cures Act, medical imaging exams and procedure reports are released immediately into your electronic medical record. You may view this report before your referring provider. If you have questions, please contact your health care provider. HISTORY: Fever. Sepsis. COMPARISON: Chest radiograph from 02/28/2022 FINDINGS: A portable erect AP view of the chest was obtained at 0148 hours. The previously seen moderate patchy right upper and lower lobe infiltrates have resolved. There is new mild patchy right superior perihilar infiltrate which could be a new area of right upper lobe pneumonia. The previously seen mild left perihilar infiltrate has resolved the left lung is now clear. The heart remains top normal in size. The mediastinum is normal in appearance. Again seen are changes of ORIF of a low left humeral neck fracture with a metallic plate and multiple anchoring screws. The fracture fragments are in moderate valgus. IMPRESSION: Resolution of previously seen moderate right upper and lower lobe infiltrates. New mild patchy right superior perihilar infiltrate. Resolution of previously seen mild patchy left perihilar infiltrate. Dictated by Baldemar Oliva MD @ 07/13/2022 2:02:00 AM (Electronically Signed)
--- NOTE | 2022-07-13 01:14 | ED.GENADULT ---
HPI - General Adult General Chief complaint: Fever Stated complaint: Vomiting Time Seen by Provider: 07/13/22 00:40 Source: patient, family and EMS Mode of arrival: EMS History of Present Illness HPI narrative: 81-year-old female hard of hearing presents for weakness, nausea. She has a notable prior history of a neurogenic bladder and does self catheterize 5 times daily. She was hospitalized in February with what sounds like sepsis secondary to urinary infection. I reviewed the blood cultures as being negative, urine culture positive. Reports that she was hospitalized for 4 days. With this episode, she initially became ill about 36 hours ago. Noticed her urine was dark, she was fatigued. She was seen in the [facility] about 12 hours ago started on Keflex for suspected urinary tract infection. I do not have access to that report or culture currently. She reports that she did start the medication but continued to feel worse. She is nauseated fatigued and feels weak. She reports bilateral midback pain, nonfocal.No abdominal pain. No chest, pulmonary or abnormal skin symptoms. She has been eating and drinking normally. Today she notes that her legs have started to swell up and are getting warm to the touch. She had chills but did not measure her temperature at home but does suspect that she had a fever. no vomiting, no diarrhea. No falls or injury. She denies a prior history of cardiac or chronic lung disease. On specific questioning, she does report a prior blood clot in her leg. She has chronic mild swelling and bruising to her left leg from a fall on the ice several years ago. She does not know her medications. She did not bring a list of her medications. Her significant other volunteers to run home and grab her list for me to review. I can see from prior hospitalizations and allergy list as well as some prior prescriptions for bisphosphonate, antihypertensives, Lasix, rheumatoid arthritis medications. She reports a prior history of rheumatoid arthritis, neurogenic bladder that started after a knee replacement. She denies any recent surgery in the last 6 months. Previous history and physical reviewed from Dr. Oliva. ROS is notable for the generalized, urinary, hematologic and GI symptoms as above, otherwise denies times 12 systems. Related Data Home Medications Medication Instructions Recorded Confirmed methotrexate sodium 2.5 mg tablet 2.5 mg PO .weekly 09/23/21 07/13/22 prednisone 1 mg tablet 1 mg PO DAILY 09/23/21 07/13/22 aspirin 81 mg tablet,delayed 81 mg PO DAILY 10/04/21 07/13/22 release (Adult Aspirin Regimen) multivitamin (Multiple Vitamins 1 tab PO QDAY 11/26/21 07/13/22 tablet) acetaminophen 325 mg tablet 650 mg PO Q4H PRN 02/28/22 07/13/22 alendronate 70 mg tablet 70 mg PO SILVA 02/28/22 07/13/22 calcium carbonate 600 mg-vitamin 1 cap PO DAILY 02/28/22 07/13/22 D3 12.5 mcg (500 unit) capsule (Calcium 600 with Vitamin D3) ferrous sulfate 325 mg (65 mg 325 mg PO DAILY 02/28/22 07/13/22 iron) tablet,delayed release furosemide 20 mg tablet 20 mg PO DAILY 02/28/22 07/13/22 hydroxychloroquine 200 mg tablet 200 mg PO BID 02/28/22 07/13/22 losartan 50 mg tablet 50 mg PO DAILY 02/28/22 07/13/22 sennosides 8.6 mg-docusate sodium 1 tab-cap PO DAILY 02/28/22 07/13/22 50 mg tablet (Laxative Stool Softener With Senna) acetaminophen 500 mg tablet 1,000 mg PO Q6H PRN 07/13/22 07/13/22 (Acetaminophen Extra Strength) amlodipine 5 mg tablet 5 mg PO DAILY 07/13/22 07/13/22 Previous Rx's Medication Instructions Recorded cephalexin 500 mg capsule 500 mg PO TID #21 caps 03/03/22 Allergies Allergy/AdvReac Type Severity Reaction Status Date / Time clonidine Allergy Mild Hallucinati Verified 07/13/22 00:52 ng leflunomide Allergy Mild Hallucinati Verified 07/13/22 00:52 ng lisinopril Allergy Mild increased Verified 07/13/22 00:52 creatinine methotrexate Allergy Mild did not Verified 07/13/22 00:52 feel well hydrocodone Allergy Unknown Vomiting Verified 07/13/22 00:52 oxycodone Allergy Unknown Verified 07/13/22 00:52 Opioids - Morphine Analogues Allergy Verified 07/13/22 00:52 Sulfa (Sulfonamide Allergy Verified 07/13/22 00:52 Antibiotics) surgical glue Allergy Uncoded 01/25/22 14:43 [facility] Medical History Back problem ?M53.9 - Dorsopathy, unspecified (ICD-10) Gram-negative bacteremia ?R78.81 - Bacteremia (ICD-10) High blood pressure ?I10 - Essential (primary) hypertension (ICD-10) History of DVT (deep vein thrombosis) ?Z86.718 - Personal history of other venous thrombosis and embolism (ICD-10) Hyperlipidemia ?E78.5 - Hyperlipidemia, unspecified (ICD-10) Lung nodules ?R91.8 - Other nonspecific abnormal finding of lung field (ICD-10) Osteoarthritis ?M19.90 - Unspecified osteoarthritis, unspecified site (ICD-10) Prediabetes ?R73.03 - Prediabetes (ICD-10) Presence of neurostimulator ?Z96.82 - Presence of neurostimulator (ICD-10) Recurrent urinary tract infection ?N39.0 - Urinary tract infection, site not specified (ICD-10) Rheumatoid arthritis ?M06.9 - Rheumatoid arthritis, unspecified (ICD-10) Sacral nerve stimulator present ?Z96.82 - Presence of neurostimulator (ICD-10) Sensorineural hearing loss, bilateral ?H90.3 - Sensorineural hearing loss, bilateral (ICD-10) Sepsis ?A41.9 - Sepsis, unspecified organism (ICD-10) Stage 3 chronic kidney disease ?N18.30 - Chronic kidney disease, stage 3 unspecified (ICD-10) Surgical History H/O hysterectomy with oophorectomy History of cholecystectomy ?Z90.49 - Acquired absence of other specified parts of digestive tract (ICD-10) S/P ORIF (open reduction internal fixation) fracture ?Z98.890 - Other specified postprocedural states (ICD-10) ?Z87.81 - Personal history of (healed) traumatic fracture (ICD-10) S/P total knee arthroplasty ?Z96.659 - Presence of unspecified artificial knee joint (ICD-10) Family History Mother Stroke Rheumatoid arthritis Brother Diabetes Coronary artery disease Father Pancreatic cancer Social History Narrative: patient lives independently with her significant other, Cirilo Chambers. She has a niece, Peg. 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 Code status is full. Highest level of school completed/degree received: some college, no degree Smoking Status: Never smoker Do you use any of these nicotine containing products: None Second hand tobacco smoke exposure: No How often do you have a drink containing alcohol: never How often do you have six or more drinks on one occasion: Never AUDIT-C Alcohol total score: 0 Non-prescribed substance use: denies use Caffeine: Yes (1/2 cup of coffee a day) Gender Identity: female Are you using contraception or practicing any form of control: No service: No Exam Const: Vital Signs, click to edit/add: Vital Signs - 24 hr 07/13/22 00:44 07/13/22 00:49 07/13/22 00:46 Temperature 99.2 F Pulse Rate 90 Pulse Rate [Pulse Oximeter] 92 87 Respiratory Rate 18 16 Blood Pressure 148/56 H Blood Pressure [Le ft Upper Arm] 148/56 H Blood Pressure [Ri ght Upper Arm] 158/75 H Pulse Oximetry 96 97 97 Oxygen Delivery Me thod Room Air Room Air 07/13/22 00:47 07/13/22 01:00 07/13/22 01:02 Temperature Pulse Rate 89 85 85 Pulse Rate [Pulse Oximeter] Respiratory Rate Blood Pressure 121/53 L Blood Pressure [Le ft Upper Arm] Blood Pressure [Ri ght Upper Arm] Pulse Oximetry 96 96 96 Oxygen Delivery Me thod 07/13/22 01:30 07/13/22 01:31 07/13/22 02:00 Temperature Pulse Rate 84 86 81 Pulse Rate [Pulse Oximeter] Respiratory Rate Blood Pressure 132/57 L Blood Pressure [Le ft Upper Arm] Blood Pressure [Ri ght Upper Arm] Pulse Oximetry 96 95 95 Oxygen Delivery Me thod 07/13/22 02:02 07/13/22 02:03 07/13/22 02:30 Temperature Pulse Rate 83 82 81 Pulse Rate [Pulse Oximeter] Respiratory Rate Blood Pressure 127/51 L Blood Pressure [Le ft Upper Arm] Blood Pressure [Ri ght Upper Arm] Pulse Oximetry 95 95 95 Oxygen Delivery Me thod 07/13/22 02:31 Temperature Pulse Rate 80 Pulse Rate [Pulse Oximeter] Respiratory Rate Blood Pressure 129/54 L Blood Pressure [Le ft Upper Arm] Blood Pressure [Ri ght Upper Arm] Pulse Oximetry 95 Oxygen Delivery Me thod Documenting provider has reviewed patient's vital signs: yes Other: hard of hearing, Smells of foul urine. alert, able to answer questions appropriately. Mild memory impairment evident. HENMT: Common normals: normocephalic Head and scalp: normocephalic Mouth: oral and palatal mucosa normal Throat: posterior oropharynx normal Eye: Common normals: conjunctivae normal General eye: normal appearance of both eyes Conjunctiva: conjunctiva(e) normal Neck & C-Spine: Common normals: full ROM and no lymphadenopathy Resp: Common normals: normal respiratory effort, no use of accessory muscles and clear to auscultation bilaterally Effort & inspection: able to speak in complete sentences Auscultation: clear to auscultation bilaterally Cardio: Common normals: regular rate, regular rhythm, S1 normal heart sound, S2 normal heart sound and no murmurs Rate: regular rate Rhythm: regular rhythm Heart sounds: S1 normal and S2 normal GI: Common normals: Normal to inspection, nondistended, normoactive bowel sounds present, soft to palpation, non-tender and no hepatosplenomegaly Palpation: soft and no hepatosplenomegaly : Common normals: no CVA tenderness Bladder/kidney exam: no CVA tenderness Back & Pelvis: Common normals: no CVA tenderness Extremity: Other: Both legs and top of her feet have 2+ edema. There is slight redness and warmth to both sides. Chronic bruise appearing hemosiderin staining to left knee and upper left leg. No joint effusions. Neuro: Common normals: moves all extremities and no focal motor deficits Speech: speech normal Motor exam: no tremor noted and muscle tone normal throughout Other: Seems to have generalized global weakness but I do not attempt in ambulatory exam when she appears quite ill. Psych: Common normals: thought process normal Attitude: engaged Activity/motor behavior: appropriate eye contact Thought process: normal thought process Insight: fair Judgement: fair Other: Seems to have mild memory impairment. Question delirium verses chronic. Skin: Narrative: Chronic skin changes to leg as noted above. No new areas of bruising, trauma or open skin. Course Vital Signs Vital signs: Initial Vital Signs Temperature 99.2 F 07/13/22 00:44 Temperature Source Oral 07/13/22 00:44 Pulse Rate 92 07/13/22 00:44 Pulse Rhythm Regular 07/13/22 00:44 Pulse Strength 3+ Normal 07/13/22 00:44 Respiratory Rate 18 07/13/22 00:44 Blood Pressure 158/75 H 07/13/22 00:44 Blood Pressure Mean 102 07/13/22 00:44 Blood Pressure Position Semi-Fowlers 07/13/22 00:44 Pulse Oximetry 96 07/13/22 00:44 Oxygen Delivery Method Room Air 07/13/22 00:44 Vital Signs Temperature 99.2 F 07/13/22 00:44 Pulse Rate 92 07/13/22 00:44 Respiratory Rate 18 07/13/22 00:44 Blood Pressure 158/75 H 07/13/22 00:44 Pulse Oximetry 96 07/13/22 00:44 Oxygen Delivery Method Room Air 07/13/22 00:44 Temperature 99.2 F 07/13/22 00:44 Pulse Rate 80 07/13/22 02:31 Respiratory Rate 16 07/13/22 00:49 Blood Pressure 129/54 L 07/13/22 02:31 Pulse Oximetry 95 07/13/22 02:31 Oxygen Delivery Method Room Air 07/13/22 00:49 Medical Decision Making MDM Narrative Medical decision making narrative: Suspect sepsis secondary to urinary source, cannot exclude cellulitis. Previous notes indicate cardiac strain, non STEMI from previous illness. Will get EKG but will not trend troponins unless she begins to have symptoms. Begin with blood cultures, urine culture, chest x-ray, EKG. Basic labs. Once all cultures have been collected, begin Rocephin based on prior urine sensitivities. Anticipate hospital admission. Hesitant to give significant amounts of fluid as she is not hypotensive in certainly does show signs of significant edema. There is no tachycardia. I do not think that she is taking beta-blockers that would mask of this based on an outdated medication list. Will await lactate level. If elevated will start fluids, otherwise she does appear to be normovolemic at this time. Update: Blood pressure has dropped a little with slightly decreased MAP, will give 500 mL bolus. Hesitant to do a lot of fluids due to edema and history. Labs are reviewed. Lactate is normal. CRP is mildly elevated. No significant leukocytosis. I think we are catching the infection earlier than last time. She is still quite weak. Chest x-ray showing a new pneumonia, concern for cellulitis on the legs and also certainly signs of urinary infection. I would recommend hospitalization while we sort out these infections and ensure clinical improvement. Concern for underlying delirium with her memory impairment noted today. Blood in urine cultures may not fully reflect extent of illness due to recent start of antibiotics outpatient. Final update: Accepted by hospitalist, vital signs remained stable. Hypotension has resolved. Will be admitted for further therapies. Lab Data Lab results reviewed: Yes I reviewed the patient's lab results Labs: Lab Results 07/13/22 07/13/22 07/13/22 Range/Units 01:25 01:30 01:45 WBC 9.38 (4.50-11.00) K/uL RBC 3.17 L (4.00-5.20) m/uL Hgb 9.9 L (12.0-16.0) gm/dL Hct 29.2 L (33.0-51.0) % MCV 92 (80-100) fL MCH 31 (26-34) pg MCHC 34 (32-36) gm/dL RDW Coeff of Randa 13.8 (11.5-15.5) % Plt Count 314 (140-440) K/uL Neut % (Auto) 87.0 H (42.0-72.0) % Lymph % (Auto) 5.0 L (20-44) % Stafford % (Auto) 5.4 (0.0-11.0) % Eos % (Auto) 1.0 (0.0-7.0) % Baso % (Auto) 0.7 (0.0-3.0) % Neut # (Auto) 8.20 H (1.7-7.0) K/uL Lymph # (Auto) 0.50 L (0.90-2.90) K/uL Stafford # (Auto) 0.50 (0.00-0.90) K/UL Eos # (Auto) 0.09 (0.00-0.50) K/uL Baso # (Auto) 0.07 (0.00-0.30) K/uL Sodium 130 L (135-149) mmol/L Potassium 4.4 (3.6-5.1) mmol/L Chloride 102 (96-114) mmol/L Carbon Dioxide 24 (20-32) mmol/L BUN 20 (7-30) mg/dL Creatinine 0.9 (0.5-1.5) mg/dL Estimated Creat Clear 31.15 Estimated GFR 64 ml/min Glucose 147 H (60-115) mg/dL Lactate 0.8 (0.5-1.9) mmol/L Calcium 8.3 L (8.4-10.6) mg/dL Total Bilirubin 0.4 (0.1-1.5) mg/dL AST 33 (12-35) U/L ALT 23 (4-35) U/L Alkaline Phosphatase 77 (40-150) U/L C-Reactive Protein 2.5 H (0.5-1.0) mg/dL Total Protein 6.8 (6.0-8.3) g/dL Albumin 3.6 (3.3-5.0) g/dL Urine Color Yellow (Yellow) Urine Appearance Clear (Clear) Urine pH 7.0 (5.0-8.5) Ur Specific [place] 1.015 (1.000-1.030) Urine Protein Negative (Negative) Urine Glucose (UA) Negative (Negative) Urine Ketones Negative (Negative) Urine Blood Negative (Negative) Urine Nitrite Positive A (Negative) Urine Bilirubin Negative (Negative) Urine Urobilinogen 0.2 (0.2-1.0) Ur Leukocyte Esterase Trace A (Negative) Urine RBC 0-2 (0-2) Urine WBC 5-10 A (0-5) Ur Squamous Epith Cells Few (None-Few) Amorphous Sediment Few A (None) Urine Bacteria Few A (None) Urine Mucus Few A (None) SARS-CoV-2 (PCR) Negative SARS-CoV-2 (Negative) Imaging Data Chest x-ray: Attestation: I have reviewed the pertinent imaging results. My impression: Patchy appearing pneumonia, right mid lung mitchell Radiologist's impression: IMPRESSION: Resolution of previously seen moderate right upper and lower lobe infiltrates. New mild patchy right superior perihilar infiltrate. Resolution of previously seen mild patchy left perihilar infiltrate. ECG Data Attestation: I personally reviewed and interpreted this ECG as follows: Prior ECG tracings: available for review Interpretation: sinus rhythm, rate 79. A little bit of a prolonged IA interval, similar to previous readings. Prior ST abnormalities noted from February have resolved. Normal axis. No acute signs of ischemia. Discharge Plan Discharge Clinical Impression: Acute delirium, Complicated urinary tract infection, Weakness, Pneumonia Patient Disposition: Admitted As Inpatient
[2022-07-13 01:34] LABS: Lactate* 0.8 mmol/L (0.5-1.9)
[2022-07-13 01:37] LABS: Basophils Absolute Auto 0.07 K/uL (0.00-0.30); Basophils Percent Auto 0.7 % (0.0-3.0); Eosinophils Absolute Auto 0.09 K/uL (0.00-0.50); Hematocrit 29.2 % (33.0-51.0); Hemoglobin* 9.9 gm/dL (12.0-16.0); Immature Granulocytes Abs Auto 0.08 K/uL (0.00-0.30); Immature Granulocytes Pct Auto 0.9 %; Mean Corpuscular HGB Conc 34 gm/dL (32-36); Mean Corpuscular Hemoglobin 31 pg (26-34); Mean Corpuscular Volume 92 fL (80-100); Monocytes Percent Auto 5.4 % (0.0-11.0); Platelet Count* 314 K/uL (140-440); RDW Coefficient of Variation % 13.8 % (11.5-15.5); Red Blood Count 3.17 m/uL (4.00-5.20); White Blood Count* 9.38 K/uL (4.50-11.00)
[2022-07-13 01:49] LABS: Albumin* 3.6 g/dL (3.3-5.0); Chloride* 102 mmol/L (96-114)
[2022-07-13] MEDS: cefTRIAXone 1 GM in 0.9 % SODIUM CHLORIDE Mini-bag 100 ML IVPB (01:49)
[2022-07-13 01:50] LABS: Potassium* 4.4 mmol/L (3.6-5.1); Slide Review Reflex No; Sodium* 130 mmol/L (135-149)
--- NOTE | 2022-07-13 01:51 | ED.NURSE ---
House Sup called for heads up
[2022-07-13 01:52] LABS: Creatinine* 0.9 mg/dL (0.5-1.5); Est. Creatinine Clearance* 31.15; Estimated Glomerular Filt Rate 64 ml/min
[2022-07-13 01:53] LABS: Alanine Aminotransferase* 23 U/L (4-35); Alkaline Phosphatase* 77 U/L (40-150); Aspartate Amino Transferase* 33 U/L (12-35); Bilirubin Total* 0.4 mg/dL (0.1-1.5); Blood Urea Nitrogen* 20 mg/dL (7-30); Calcium* 8.3 mg/dL (8.4-10.6); Carbon Dioxide* 24 mmol/L (20-32); Glucose* 147 mg/dL (60-115); Total Protein* 6.8 g/dL (6.0-8.3)
[2022-07-13 01:55] LABS: C Reactive Protein* 2.5 mg/dL (0.5-1.0)
[2022-07-13 02:09] LABS: Appearance Urine Clear (Clear); Bilirubin Urine Negative (Negative); Blood Urine Negative (Negative); Color Urine Yellow (Yellow); Glucose Urine Negative (Negative); Ketones Urine Negative (Negative); Leukocyte Esterase Urine Trace (Negative); Nitrite Urine Positive (Negative); Protein Urine Negative (Negative); Specific Gravity Urine 1.015 (1.000-1.030); Urobilinogen Urine 0.2 (0.2-1.0)
[2022-07-13 02:21] LABS: SARS PCR* Negative SARS-CoV-2 (Negative)
[2022-07-13 02:21] LABS: Amorphous Sediment Urine Few; Bacteria Urine Few; Mucus Urine Few; RBC Urine 0-2 (0-2); Squamous Epithelial Cell Urine Few (None-Few)
[2022-07-13] MEDS: 0.9 % SODIUM CHLORIDE 500 ML 500 ML IV (02:23)
[2022-07-13] MEDS: AZITHROMYCIN 250 MG TABLET 500 MG PO ×2 (02:23→17:59)
--- NOTE | 2022-07-13 03:17 | ED.NURSE ---
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 Patient will go to room 247.
--- NOTE | 2022-07-13 04:15 | P.IMHP_ITS ---
Hospitalist- H&P: HPI History of Present Illness Date Seen: 07/13/22 Chief complaint: Vomiting Narrative: Devon Gunderson Hospitalist CONSULTATION NOTE: eHospitalist was contacted by Dr. Tanner with request of consultation for admission: Reason for consult: Altered mental status, UTI, pneumonia HPI: This is a 81-year-old female who presents to the hospital due to altered mental status. Patient was quite weak at home. It sounds as though she had a similar episode back in February but was much more sick at that time. Today, patient's urinalysis is positive. She tells me she was having some trouble going to the bathroom. Additional work-up in the ER did show a possible new infiltrate on her chest x-ray compared to previous. White count is normal. Patient had blood cultures drawn and was started on Rocephin and azithromycin as well as given a small bolus of IV fluids in the emergency department. She says he feels much better currently. In addition, she does have some increased swelling to the lower extremities per the ER physician who is familiar with her. Home Medications: Reviewed and reconciled Pertinent Medical History: Hypertension, DVT, hyperlipidemia, UTI, anemia, CKD stage III Past surgical History: Hysterectomy, cholecystectomy, knee surgery Pertinent Social History: Non-smoker nondrinker Family Hx: Mom with stroke. Brother with coronary disease Exam (performed via interactive video with assistance of bedside nurse): General: Alert, cooperative, no acute distress HEENT: EOM intact, head is normocephalic and atraumatic Lungs: Clear to auscultation bilaterally without crackle or wheeze CV: Regular rate and rhythm without loud murmur rub or gallop Ext: 2+ pitting edema to the lower extremities Skin: There is some chronic venous stasis noted to the lower extremities. No obvious cellulitis Neuro: Alert, oriented x 3. CN III -VII, XI, XII grossly intact, moves all extremities without any significant focal deficit appreciated Assessment: UTI Community-acquired pneumonia Altered mental status due to infection Mild CHF unspecified Plan: -Continue IV antibiotics with Rocephin and azithromycin -Continue oral Lasix tomorrow morning and keep Vizcarra catheter for now. Increase Lasix as needed -Resume some of her home blood pressure medications. Resume others as tolerated tomorrow provided she remains clinically stable -Lovenox for DVT prophylaxis for now [facility]. This service is available for further assistance as requested by your care team by calling [phone]. [facility] Medical History Back problem ?M53.9 - Dorsopathy, unspecified (ICD-10) Gram-negative bacteremia ?R78.81 - Bacteremia (ICD-10) High blood pressure ?I10 - Essential (primary) hypertension (ICD-10) History of DVT (deep vein thrombosis) ?Z86.718 - Personal history of other venous thrombosis and embolism (ICD-10) Hyperlipidemia ?E78.5 - Hyperlipidemia, unspecified (ICD-10) Lung nodules ?R91.8 - Other nonspecific abnormal finding of lung field (ICD-10) Osteoarthritis ?M19.90 - Unspecified osteoarthritis, unspecified site (ICD-10) Prediabetes ?R73.03 - Prediabetes (ICD-10) Presence of neurostimulator ?Z96.82 - Presence of neurostimulator (ICD-10) Recurrent urinary tract infection ?N39.0 - Urinary tract infection, site not specified (ICD-10) Rheumatoid arthritis ?M06.9 - Rheumatoid arthritis, unspecified (ICD-10) Sacral nerve stimulator present ?Z96.82 - Presence of neurostimulator (ICD-10) Sensorineural hearing loss, bilateral ?H90.3 - Sensorineural hearing loss, bilateral (ICD-10) Sepsis ?A41.9 - Sepsis, unspecified organism (ICD-10) Stage 3 chronic kidney disease ?N18.30 - Chronic kidney disease, stage 3 unspecified (ICD-10) Surgical History H/O hysterectomy with oophorectomy History of cholecystectomy ?Z90.49 - Acquired absence of other specified parts of digestive tract (ICD- 10) S/P ORIF (open reduction internal fixation) fracture ?Z98.890 - Other specified postprocedural states (ICD-10) ?Z87.81 - Personal history of (healed) traumatic fracture (ICD-10) S/P total knee arthroplasty ?Z96.659 - Presence of unspecified artificial knee joint (ICD-10) Family History Mother Stroke Rheumatoid arthritis Brother Diabetes Coronary artery disease Father Pancreatic cancer Social History Narrative: patient lives independently with her significant other, Cirilo Chambers. She has a niece, Peg. Those 2 would be healthcare power of commercial real estate attorney. Code status is full. Highest level of school completed/degree received: some college, no degree Smoking Status: Never smoker Do you use any of these nicotine containing products: None Second hand tobacco smoke exposure: No How often do you have a drink containing alcohol: never How often do you have six or more drinks on one occasion: Never AUDIT-C Alcohol total score: 0 Non-prescribed substance use: denies use Caffeine: Yes (1/2 cup of coffee a day) Gender Identity: female Are you using contraception or practicing any form of control: No service: No Meds Home Medications and Allergies Home Medications Medication Instructions Recorded Confirmed Type methotrexate sodium 2.5 mg tablet 2.5 mg PO .weekly 09/23/21 07/13/22 History prednisone 1 mg tablet 1 mg PO DAILY 09/23/21 07/13/22 History aspirin 81 mg tablet,delayed 81 mg PO DAILY 10/04/21 07/13/22 History release (Adult Aspirin Regimen) multivitamin (Multiple Vitamins 1 tab PO QDAY 11/26/21 07/13/22 History tablet) acetaminophen 325 mg tablet 650 mg PO Q4H PRN 02/28/22 07/13/22 History alendronate 70 mg tablet 70 mg PO SILVA 02/28/22 07/13/22 History calcium carbonate 600 mg-vitamin 1 cap PO DAILY 02/28/22 07/13/22 History D3 12.5 mcg (500 unit) capsule (Calcium 600 with Vitamin D3) ferrous sulfate 325 mg (65 mg 325 mg PO DAILY 02/28/22 07/13/22 History iron) tablet,delayed release furosemide 20 mg tablet 20 mg PO DAILY 02/28/22 07/13/22 History hydroxychloroquine 200 mg tablet 200 mg PO BID 02/28/22 07/13/22 History losartan 50 mg tablet 50 mg PO DAILY 02/28/22 07/13/22 History sennosides 8.6 mg-docusate sodium 1 tab-cap PO DAILY 02/28/22 07/13/22 History 50 mg tablet (Laxative Stool Softener With Senna) acetaminophen 500 mg tablet 1,000 mg PO Q6H PRN 07/13/22 07/13/22 History (Acetaminophen Extra Strength) amlodipine 5 mg tablet 5 mg PO DAILY 07/13/22 07/13/22 History Allergies Allergy/AdvReac Type Severity Reaction Status Date / Time clonidine Allergy Mild Hallucinati Verified 07/13/22 00:52 ng leflunomide Allergy Mild Hallucinati Verified 07/13/22 00:52 ng lisinopril Allergy Mild increased Verified 07/13/22 00:52 creatinine methotrexate Allergy Mild did not Verified 07/13/22 00:52 feel well hydrocodone Allergy Unknown Vomiting Verified 07/13/22 00:52 oxycodone Allergy Unknown Verified 07/13/22 00:52 Opioids - Morphine Analogues Allergy Verified 07/13/22 00:52 Sulfa (Sulfonamide Allergy Verified 07/13/22 00:52 Antibiotics) surgical glue Allergy Uncoded 01/25/22 14:43 Exam Const: Vital Signs, click to edit/add: Vital Signs - 24 hr 07/13/22 00:44 07/13/22 00:49 07/13/22 00:46 Temperature 99.2 F Pulse Rate 90 Pulse Rate [Pulse Oximeter] 92 87 Respiratory Rate 18 16 Blood Pressure 148/56 H Blood Pressure [Le ft Upper Arm] 148/56 H Blood Pressure [Ri ght Upper Arm] 158/75 H Pulse Oximetry 96 97 97 Oxygen Delivery Me thod Room Air Room Air 07/13/22 00:47 07/13/22 01:00 07/13/22 01:02 Temperature Pulse Rate 89 85 85 Pulse Rate [Pulse Oximeter] Respiratory Rate Blood Pressure 121/53 L Blood Pressure [Le ft Upper Arm] Blood Pressure [Ri ght Upper Arm] Pulse Oximetry 96 96 96 Oxygen Delivery Me thod 07/13/22 01:30 07/13/22 01:31 07/13/22 02:00 Temperature Pulse Rate 84 86 81 Pulse Rate [Pulse Oximeter] Respiratory Rate Blood Pressure 132/57 L Blood Pressure [Le ft Upper Arm] Blood Pressure [Ri ght Upper Arm] Pulse Oximetry 96 95 95 Oxygen Delivery Me thod 07/13/22 02:02 07/13/22 02:03 07/13/22 02:30 Temperature Pulse Rate 83 82 81 Pulse Rate [Pulse Oximeter] Respiratory Rate Blood Pressure 127/51 L Blood Pressure [Le ft Upper Arm] Blood Pressure [Ri ght Upper Arm] Pulse Oximetry 95 95 95 Oxygen Delivery Me thod 07/13/22 02:31 07/13/22 02:32 07/13/22 03:00 Temperature Pulse Rate 80 79 75 Pulse Rate [Pulse Oximeter] Respiratory Rate Blood Pressure 129/54 L Blood Pressure [Le ft Upper Arm] Blood Pressure [Ri ght Upper Arm] Pulse Oximetry 95 94 95 Oxygen Delivery Me thod 07/13/22 03:01 Temperature Pulse Rate 79 Pulse Rate [Pulse Oximeter] Respiratory Rate 18 Blood Pressure 120/52 L Blood Pressure [Le ft Upper Arm] Blood Pressure [Ri ght Upper Arm] Pulse Oximetry 94 Oxygen Delivery Mn thod Room Air Hospitalist - H&P: Result Labs Labs: Short CBC 07/13/22 Range/Units 01:25 WBC 9.38 (4.50-11.00) K/uL Hgb 9.9 L (12.0-16.0) gm/dL Hct 29.2 L (33.0-51.0) % Plt Count 314 (140-440) K/uL BMP 07/13/22 01:25 Sodium 130 L Potassium 4.4 Chloride 102 Carbon Dioxide 24 BUN 20 Creatinine 0.9 Glucose 147 H Calcium 8.3 L Liver Function 07/13/22 Range/Units 01:25 Total Bilirubin 0.4 (0.1-1.5) mg/dL AST 33 (12-35) U/L ALT 23 (4-35) U/L Alkaline Phosphatase 77 (40-150) U/L Albumin 3.6 (3.3-5.0) g/dL Urine 07/13/22 Range/Units 01:45 Urine Color Yellow (Yellow) Urine Appearance Clear (Clear) Urine pH 7.0 (5.0-8.5) Ur Specific [place] 1.015 (1.000-1.030) Urine Protein Negative (Negative) Urine Glucose (UA) Negative (Negative)
--- NOTE | 2022-07-13 06:42 | PC.NURSE ---
pt to floor at 0330. SBA. VS WNL. Vizcarra patent and draining. Pt states she believes her bladder stimulator is no longer working and that she has been straight cathing at home 5x a day. 2-3+ pitting edema to BLE. Bruising to left knee, pt states it is chronic from a previous fall on ice. Scab on left mo, from cellulitis per pt. ?
[2022-07-13] MEDS: ACETAMINOPHEN 500 MG TABLET 1000 MG PO ×2 (09:18→20:25)
[2022-07-13] MEDS: FERROUS SULFATE 325 MG TABLET PO (09:18)
[2022-07-13] MEDS: HYDROXYCHLOROQUINE 200 MG TABLET PO ×2 (09:18→20:24)
[2022-07-13] MEDS: AMLODIPINE 5 MG TABLET PO (09:18)
[2022-07-13] MEDS: FUROSEMIDE 20 MG TABLET PO (09:19)
[2022-07-13] MEDS: SODIUM CHLORIDE 0.9 % (FLUSH) 10 ML SYRINGE 5 ML IVF ×2 (09:19→23:00)
[2022-07-13] MEDS: ASPIRIN 81 MG TABLET EC PO (09:19)
--- NOTE | 2022-07-13 14:01 | P.IMHP_ITS ---
Hospitalist- H&P: HPI History of Present Illness Date Seen: 07/13/22 Chief complaint: Vomiting Narrative: 81-year-old female hard of hearing presents for weakness, nausea.? She has a notable prior history of a neurogenic bladder and does self catheterize 5 times daily.? She was hospitalized in February with what sounds like sepsis secondary to urinary infection.? I reviewed the blood cultures as being negative, urine culture positive.? Reports that she was hospitalized for 4 days. ? With this episode, she initially became ill about 36 hours ago.? Noticed her urine was dark, she was fatigued.? She was seen in the [facility] about 12 hours ago started on Keflex for suspected urinary tract infection.? I do not have access to that report or culture currently.? She reports that she did start the medication but continued to feel worse.? She is nauseated fatigued and feels weak.? ? She reports bilateral midback pain, nonfocal.No abdominal pain.? No chest, pulmonary or abnormal skin symptoms.? She has been eating and drinking normally.? Today she notes that her legs have started to swell up and are getting warm to the touch.? She had chills but did not measure her temperature at home but does suspect that she had a fever.? no vomiting, no diarrhea.? No falls or injury.? She denies a prior history of cardiac or chronic lung disease.? On specific questioning, she does report a prior blood clot in her leg.? She has chronic mild swelling and bruising to her left leg from a fall on the ice several years ago.? She does not know her medications.? She notes increasing problems with her bladder in the last few months. She has a bladder stimulator which she thinks is no longer working. She has no sense of a need to void. She self catheterizes 5 times a day. She saw her urologist recently who offered to replace her bladder stimulator. Review of Systems Narrative: She was doing well prior to last couple days when she had onset of symptoms of illness noted above [facility] Medical History Back problem ?M53.9 - Dorsopathy, unspecified (ICD-10) Gram-negative bacteremia ?R78.81 - Bacteremia (ICD-10) High blood pressure ?I10 - Essential (primary) hypertension (ICD-10) History of DVT (deep vein thrombosis) ?Z86.718 - Personal history of other venous thrombosis and embolism (ICD-10) Hyperlipidemia ?E78.5 - Hyperlipidemia, unspecified (ICD-10) Lung nodules ?R91.8 - Other nonspecific abnormal finding of lung field (ICD-10) Osteoarthritis ?M19.90 - Unspecified osteoarthritis, unspecified site (ICD-10) Prediabetes ?R73.03 - Prediabetes (ICD-10) Presence of neurostimulator ?Z96.82 - Presence of neurostimulator (ICD-10) Recurrent urinary tract infection ?N39.0 - Urinary tract infection, site not specified (ICD-10) Rheumatoid arthritis ?M06.9 - Rheumatoid arthritis, unspecified (ICD-10) Sacral nerve stimulator present ?Z96.82 - Presence of neurostimulator (ICD-10) Sensorineural hearing loss, bilateral ?H90.3 - Sensorineural hearing loss, bilateral (ICD-10) Sepsis ?A41.9 - Sepsis, unspecified organism (ICD-10) Stage 3 chronic kidney disease ?N18.30 - Chronic kidney disease, stage 3 unspecified (ICD-10) Surgical History H/O hysterectomy with oophorectomy History of cholecystectomy ?Z90.49 - Acquired absence of other specified parts of digestive tract (ICD- 10) S/P ORIF (open reduction internal fixation) fracture ?Z98.890 - Other specified postprocedural states (ICD-10) ?Z87.81 - Personal history of (healed) traumatic fracture (ICD-10) S/P total knee arthroplasty ?Z96.659 - Presence of unspecified artificial knee joint (ICD-10) Family History Mother Stroke Rheumatoid arthritis Brother Diabetes Coronary artery disease Father Pancreatic cancer Social History Narrative: patient lives independently with her significant other, Cirilo Chambers. She has a niece, Peg. Those 2 would be healthcare power of document review attorney. Code status is full. Highest level of school completed/degree received: some college, no degree Smoking Status: Never smoker Do you use any of these nicotine containing products: None Second hand tobacco smoke exposure: No How often do you have a drink containing alcohol: never How often do you have six or more drinks on one occasion: Never AUDIT-C Alcohol total score: 0 Non-prescribed substance use: denies use Caffeine: Yes (1/2 cup of coffee a day) Gender Identity: female Are you using contraception or practicing any form of control: No service: No Meds Home Medications and Allergies Home Medications Medication Instructions Recorded Confirmed Type methotrexate sodium 2.5 mg tablet 12.5 mg PO Q7D 09/23/21 07/13/22 History prednisone 1 mg tablet 1 mg PO DAILY 09/23/21 07/13/22 History aspirin 81 mg tablet,delayed 81 mg PO DAILY 10/04/21 07/13/22 History release (Adult Aspirin Regimen) multivitamin (Multiple Vitamins 1 tab PO QDAY 11/26/21 07/13/22 History tablet) alendronate 70 mg tablet 70 mg PO SILVA 02/28/22 07/13/22 History calcium carbonate 600 mg-vitamin 1 cap PO DAILY 02/28/22 07/13/22 History D3 12.5 mcg (500 unit) capsule (Calcium 600 with Vitamin D3) ferrous sulfate 325 mg (65 mg 325 mg PO DAILY 02/28/22 07/13/22 History iron) tablet,delayed release furosemide 20 mg tablet 20 mg PO BID 02/28/22 07/13/22 History hydroxychloroquine 200 mg tablet 200 mg PO BID 02/28/22 07/13/22 History losartan 50 mg tablet 50 mg PO DAILY 02/28/22 07/13/22 History sennosides 8.6 mg-docusate sodium 1 tab-cap PO DAILY 02/28/22 07/13/22 History 50 mg tablet (Laxative Stool Softener With Senna) acetaminophen 500 mg tablet 1,000 mg PO Q6H PRN 07/13/22 07/13/22 History (Acetaminophen Extra Strength) amlodipine 5 mg tablet 5 mg PO DAILY 07/13/22 07/13/22 History cephalexin 500 mg capsule 500 mg PO BID 07/13/22 07/13/22 History Allergies Allergy/AdvReac Type Severity Reaction Status Date / Time clonidine Allergy Mild Hallucinati Verified 07/13/22 00:52 ng leflunomide Allergy Mild Hallucinati Verified 07/13/22 00:52 ng lisinopril Allergy Mild increased Verified 07/13/22 00:52 creatinine methotrexate Allergy Mild did not Verified 07/13/22 00:52 feel well hydrocodone Allergy Unknown Vomiting Verified 07/13/22 00:52 oxycodone Allergy Unknown Verified 07/13/22 00:52 Opioids - Morphine Analogues Allergy Verified 07/13/22 00:52 Sulfa (Sulfonamide Allergy Verified 07/13/22 00:52 Antibiotics) surgical glue Allergy Uncoded 01/25/22 14:43 Exam Narrative: Exam Narrative: She is alert and appears in no distress. Speech is normal. She is oriented to her circumstances. Eyes normal. Oropharynx normal. Neck is supple without mass or adenopathy. Respirations are clear to auscultation. Cardiovascular: S1, S2, regular rate and rhythm. Abdomen: Bowel sounds active. Abdomen is soft without tenderness or mass. Extremities with 2+ edema in the right lower extremity and 1+ edema in the left lower extremity. She has intact pulses and sensation and good capillary refill. Const: Vital Signs, click to edit/add: Vital Signs - 24 hr 07/13/22 00:44 07/13/22 00:49 07/13/22 00:46 Temperature 99.2 F Pulse Rate 90 Pulse Rate [Pulse Oximeter] 92 87 Respiratory Rate 18 16 Blood Pressure 148/56 H Blood Pressure [Le ft Upper Arm] 148/56 H Blood Pressure [Ri ght Arm] Blood Pressure [Ri ght Upper Arm] 158/75 H Pulse Oximetry 96 97 97 Oxygen Delivery Me thod Room Air Room Air 07/13/22 00:47 07/13/22 01:00 07/13/22 01:02 Temperature Pulse Rate 89 85 85 Pulse Rate [Pulse Oximeter] Respiratory Rate Blood Pressure 121/53 L Blood Pressure [Le ft Upper Arm] Blood Pressure [Ri ght Arm] Blood Pressure [Ri ght Upper Arm] Pulse Oximetry 96 96 96 Oxygen Delivery Me thod 07/13/22 01:30 07/13/22 01:31 07/13/22 02:00 Temperature Pulse Rate 84 86 81 Pulse Rate [Pulse Oximeter] Respiratory Rate Blood Pressure 132/57 L Blood Pressure [Le ft Upper Arm] Blood Pressure [Ri ght Arm] Blood Pressure [Ri ght Upper Arm] Pulse Oximetry 96 95 95 Oxygen Delivery Me thod 07/13/22 02:02 07/13/22 02:03 07/13/22 02:30 Temperature Pulse Rate 83 82 81 Pulse Rate [Pulse Oximeter] Respiratory Rate Blood Pressure 127/51 L Blood Pressure [Le ft Upper Arm] Blood Pressure [Ri ght Arm] Blood Pressure [Ri ght Upper Arm] Pulse Oximetry 95 95 95 Oxygen Delivery Me thod 07/13/22 02:31 07/13/22 02:32 07/13/22 03:00 Temperature Pulse Rate 80 79 75 Pulse Rate [Pulse Oximeter] Respiratory Rate Blood Pressure 129/54 L Blood Pressure [Le ft Upper Arm] Blood Pressure [Ri ght Arm] Blood Pressure [Ri ght Upper Arm] Pulse Oximetry 95 94 95 Oxygen Delivery Me thod 07/13/22 03:01 07/13/22 04:52 07/13/22 04:52 Temperature 98.4 F Pulse Rate 79 Pulse Rate [Pulse Oximeter] 84 Respiratory Rate 18 18 18 Blood Pressure 120/52 L Blood Pressure [Le ft Upper Arm] Blood Pressure [Ri ght Arm] 143/65 H Blood Pressure [Ri ght Upper Arm] Pulse Oximetry 94 95 95 Oxygen Delivery Me thod Room Air Room Air Room Air 07/13/22 07:00 07/13/22 07:00 Temperature 98.7 F Pulse Rate Pulse Rate [Pulse Oximeter] 84 78 Respiratory Rate 16 18 Blood Pressure Blood Pressure [Le ft Upper Arm] Blood Pressure [Ri ght Arm] 123/58 L Blood Pressure [Ri ght Upper Arm] Pulse Oximetry 93 Oxygen Delivery Me thod Room Air Documenting provider has reviewed patient's vital signs: yes Hospitalist - H&P: Result Labs Labs: Short CBC 07/13/22 Range/Units 01:25 WBC 9.38 (4.50-11.00) K/uL Hgb 9.9 L (12.0-16.0) gm/dL Hct 29.2 L (33.0-51.0) % Plt Count 314 (140-440) K/uL BMP 07/13/22 01:25 Sodium 130 L Potassium 4.4 Chloride 102 Carbon Dioxide 24 BUN 20 Creatinine 0.9 Glucose 147 H Calcium 8.3 L Liver Function 07/13/22 Range/Units 01:25 Total Bilirubin 0.4 (0.1-1.5) mg/dL AST 33 (12-35) U/L ALT 23 (4-35) U/L Alkaline Phosphatase 77 (40-150) U/L Albumin 3.6 (3.3-5.0) g/dL Urine 07/13/22 Range/Units 01:45 Urine Color Yellow (Yellow) Urine Appearance Clear (Clear) Urine pH 7.0 (5.0-8.5) Ur Specific [place] 1.015 (1.000-1.030) Urine Protein Negative (Negative) Urine Glucose (UA) Negative (Negative) Imaging Chest x-ray: Radiologist's impression: HISTORY: Fever. Sepsis. COMPARISON: Chest radiograph from 02/28/2022 FINDINGS: A portable erect AP view of the chest was obtained at 0148 hours. The previously seen moderate patchy right upper and lower lobe infiltrates have resolved. There is new mild patchy right superior perihilar infiltrate which could be a new area of right upper lobe pneumonia. The previously seen mild left perihilar infiltrate has resolved the left lung is now clear. The heart remains top normal in size. The mediastinum is normal in appearance. Again seen are changes of ORIF of a low left humeral neck fracture with a metallic plate and multiple anchoring screws. The fracture fragments are in moderate valgus. ? IMPRESSION: Resolution of previously seen moderate right upper and lower lobe infiltrates. New mild patchy right superior perihilar infiltrate. Resolution of previously seen mild patchy left perihilar infiltrate. Assessment and Plan Assessment and plan (1) Complicated urinary tract infection: Problem comment: Acute illness is likely due to urinary tract infection. Radiographic findings with pneumonia without obvious clinical pneumonia. Status: Acute (2) Encephalopathy due to infection: Problem comment: Confusion during the night but oriented this morning. Likely due to acute infe ction Status: Acute (3) Urinary retention: Problem comment: Longstanding problems with her bladder, neurogenic bladder with self catheterization. Also bladder stimulator that may not be working anymore. Vizcarra catheter here and self catheter on discharge with follow-up with Urology Status: Acute (4) Pneumonia: Problem comment: Radiographic findings of pneumonia without obvious clinical findings of pn eumonia Status: Acute (5) Weakness: Problem comment: Due to acute infection. Status: Acute Plan Admit to the hospital with IV antibiotics pending culture results and clinical improvement. Total time spent today is 75 minutes, 50 minutes in coordination care discussing with patient other providers ongoing evaluation management.
--- NOTE | 2022-07-13 14:22 | PC.NURSE ---
Pt pleasant and cooperative. Knee pain reported, tylenol given. ambulated in hallway with walker and GB, tolerated this well and steady on feet. edema to BLE, TEDS applied.
[2022-07-13] MEDS: cefTRIAXone 2 GM in 0.9 % SODIUM CHLORIDE Mini-bag 100 ML IVPB (17:59)
[2022-07-13] MEDS: ENOXAPARIN 40 MG/0.4 ML INJ SUBCUT (20:25)
--- NOTE | 2022-07-13 23:52 | PC.NURSE ---
Pt is alert and oriented, pleasant and cooperative. [place] when not wearing hearing aids. Knee pain reported, PRN tylenol administered see eMAR. edema to BLE, knee high teds in use. Tolerating reg diet. Vizcarra patent and draining.
[2022-07-14 04:00] VITALS: BP 130/57; PULSE 95; RESP 18; TEMP 36.7; O2SAT 95
[2022-07-14] MEDS: ACETAMINOPHEN 500 MG TABLET 1000 MG PO (04:23)
--- NOTE | 2022-07-14 06:12 | PC.NURSE ---
[id number] Shift Summary? 247 K.F. 81 Recurrent UTIs? Pt slept well during this shift. C/o chronic pain in knees and given Tylenol. Vizcarra in place, possibly DCing home today with fianc?. At baseline has a bladder stimulator that does not work and straight caths herself x5 a day at home. Working with new urologist on future options. IV abx q24 hours. Per report moves with AO1 and walker. On room air and regular diet. Oriented x4. Vitals stable.?
[2022-07-14 08:00] VITALS: BP 131/52; PULSE 69; RESP 16; TEMP 36.8; O2SAT 96
[2022-07-14] MEDS: ASPIRIN 81 MG TABLET EC PO (08:16)
[2022-07-14] MEDS: HYDROXYCHLOROQUINE 200 MG TABLET PO (08:16)
[2022-07-14] MEDS: FUROSEMIDE 20 MG TABLET PO (08:16)
[2022-07-14] MEDS: SODIUM CHLORIDE 0.9 % (FLUSH) 10 ML SYRINGE 5 ML IVF (08:16)
[2022-07-14] MEDS: FERROUS SULFATE 325 MG TABLET PO (08:16)
--- NOTE | 2022-07-14 09:00 | PC.NURSE ---
Notified MD that no labs were drawn this morning. Wants to wait for urine culture to come back and will see patient. MD gave verbal order to remove catheter and allow patient to self cath per home schedule.
[2022-07-14 11:22] VITALS: BP 121/48; PULSE 76; RESP 16; TEMP 36.4; O2SAT 96
[2022-07-14] MEDS: cefTRIAXone 1 GM in 0.9 % SODIUM CHLORIDE Mini-bag 100 ML IVPB (11:29)
[2022-07-14 12:48] VITALS: BP 120/52; PULSE 79; RESP 16; TEMP 36.4
--- NOTE | 2022-07-14 12:50 | PC.NURSE ---
End of shift: Patient has been up in chair all day. Ambulated in hallway with SBA. Denies pain and nausea. Vital signs within normal limits. PIV patent and taken out prior to DC. Catheter pulled at 9am. Patient will self cath when she gets home today around 1300. Patient has follow up with PCP July 27. Lung sounds had slight crackles in bases. Incentive spirometer was given to patient and she used this 10 times per hour during this shift. Oxygen improved to 96% on RA. Denies shortness of breath. Bowel sounds active and passing flatus. All questions answered and left via wheelchair with significant other.
--- NOTE | 2022-07-14 16:18 | P.DS_ITS ---
DS: Providers Provider Date Seen: 07/14/22 Date of admission: 07/13/22 03:26 Primary care physician: Constanza Cardozo MD Admitting Clinician: Sheyla Velasquez MD Attending Physician on discharge: Dustin Oliva MD Date of Discharge: 07/14/22 DS: Diagnosis Discharge Diagnosis (1) Complicated urinary tract infection: Status: Acute Problem details: Acute illness is likely due to urinary tract infection. Radiographic findings with pneumonia without obvious clinical pneumonia. Treated with ceftriaxone and azithromycin. All symptoms resolved. (2) Encephalopathy due to infection: Status: Acute Problem details: Confusion during the night but oriented this morning. Likely due to acute infection. Normal mental status since shortly after admission. (3) Urinary retention: Status: Acute Problem details: Longstanding problems with her bladder, neurogenic bladder with self catheterization. Also bladder stimulator that may not be working anymore. Vizcarra catheter here and self catheter on discharge with follow-up with Urology (4) Pneumonia: Status: Acute Problem details: Radiographic findings of pneumonia without obvious clinical findings of pneumonia. (5) Weakness: Status: Acute Problem details: Due to acute infection. (6) Lower extremity edema: Status: Acute Problem details: Longstanding lower extremity edema. Will stop amlodipine to see if this improves. DS: Summary Hospital Course Hospital Course: 81-year-old female admitted to the hospital with concern of urinary tract infection with acute confusion/delirium, profound weakness, nausea. Time admission this was felt to be a complicated urinary tract infection. Patient has neurogenic bladder with urinary retention. She has a bladder stimulator and does self catheterization. She has had recurrent hospital admissions for urinary tract infections with sepsis. Two days prior to this admission she became ill with typical symptoms. She was started on cephalexin as an outpatient but within a few hours became ill enough that she came to the emergency room. She was treated with IV fluids and ceftriaxone and had a relatively quick improvement in her symptoms. Patient has responded very well to ceftriaxone. Prior to admission she was on cephalexin. I believe this is an appropriate antibiotic at this time. Her cultures are indicating probable E coli on preliminary evaluation but sensitivities are not yet available. She is anxious to go home so I recommended that she go home with a plan that her antibiotic, cephalexin, would be changed if necessary in response to her cultures and sensitivities. She is to return to the emergency department if getting worse in any way. Status at Discharge Functional status at discharge: independent ambulation Overall status at discharge: patient is progressing back to baseline Time Spent with Patient Time attestation: Total time spent providing and/or coordinating discharge services: Time spent: Greater than 30 minutes Exam Narrative: Exam Narrative: She is alert and pleasant. Mood and affect are bright. She reports feeling fine. Breathing is unlabored. Lower extremities with 1+ edema. Const: Vital Signs, click to edit/add: Vital Signs - 24 hr 07/13/22 19:00 07/14/22 04:00 07/13/22 23:00 Temperature 98.7 F 98.1 F Pulse Rate Pulse Rate [Pulse Oximeter] 72 95 95 Respiratory Rate 18 18 18 Blood Pressure Blood Pressure [Ri ght Arm] 122/49 L 130/57 L Pulse Oximetry 96 95 Oxygen Delivery Me thod Room Air Room Air 07/14/22 08:00 07/14/22 11:22 07/14/22 12:48 Temperature 98.3 F 97.6 F 97.6 F Pulse Rate 79 Pulse Rate [Pulse Oximeter] 69 76 Respiratory Rate 16 16 16 Blood Pressure 120/52 L Blood Pressure [Ri ght Arm] 131/52 L 121/48 L Pulse Oximetry 96 96 Oxygen Delivery Me thod Room Air Room Air Documenting provider has reviewed patient's vital signs: yes DS: Data Data Completed and Pending Completed studies during hospitalization: Procedures Assistance with Respiratory Ventilation, Less than 24 Consecutive Hours, Continuous Positive Airway Pressure (02/28/22) Introduction of Anti-inflammatory into Peripheral Vein, Percutaneous Approach (02/28/22) Introduction of Other Gas into Respiratory Tract, Via Natural or Artificial Opening (02/28/22) Introduction of Remdesivir Anti-infective into Peripheral Vein, Percutaneous Approach, [employer] (02/28/22) Labs on day of discharge: Preliminary micro results at discharge 07/13/22 01:45 Urine Culture - Preliminary Urine Catheterized 07/13/22 01:30 Blood Culture - Preliminary Blood NO GROWTH AFTER 24 HOURS 07/13/22 01:25 Blood Culture - Preliminary Blood NO GROWTH AFTER 24 HOURS Discharge Plan Discharge Disposition: Home, Self-Care Date of Admission: 07/13/22 03:26 Attending Provider on Discharge: Jose Oliva Primary Care Provider: Constanza Cardozo I Condition: Improved Anticipated Discharge Date/Time: 04/20/23 12:30 Discharge Medications: Continued multivitamin [Multiple Vitamins] Tablet 1 tab PO QDAY aspirin [Adult Aspirin Regimen] 81 mg tablet,delayed release (DR/EC) 81 mg PO DAILY Hold Instructions: Resume on 10/12/21. methotrexate sodium 2.5 mg tablet 12.5 mg PO Q7D Hold Instructions: Resume on 10/15/21. Patient Comments: TAKE 5 TABLETS BY MOUTH EVERY WEEK prednisone 1 mg tablet 1 mg PO DAILY ferrous sulfate 325 mg (65 mg iron) tablet,delayed release (DR/EC) 325 mg PO DAILY Patient Comments: TAKE 1 TABLET BY MOUTH ONCE DAILY WITH A MEAL. sennosides-docusate sodium [Lax Stool Softener With Senna] 8.6-50 mg tablet 1 tab-cap PO DAILY calcium carbonate-vitamin D3 [Calcium 600 with Vitamin D3] 600 mg-12.5 mcg (500 unit) capsule 1 cap PO DAILY hydroxychloroquine 200 mg tablet 200 mg PO BID Patient Comments: TAKE 1 TABLET BY MOUTH TWICE DAILY losartan 50 mg tablet 50 mg PO DAILY furosemide 20 mg tablet 20 mg PO BID alendronate 70 mg tablet 70 mg PO SILVA Patient Comments: TAKE 1 TABLET BY MOUTH EVERY 7 DAYS ON AN EMPTY STOMACH. REMAIN UPRIGHT FOR 30 MINUTES. TAKE WITH 8 OUNCES OF WATER acetaminophen [Acetaminophen Extra Strength] 500 mg tablet 1,000 mg PO Q6H PRN cephalexin 500 mg capsule 500 mg PO BID Discontinued amlodipine 5 mg tablet 5 mg PO DAILY Discharge Orders: Discharge Order (Routine); Ordered 07/14/22 Ordered By: Jose Oliva Patient Education: Urinary Tract Infection in Women (DC), Acute Delirium (DC), Catheter-associated Urinary Tract Infection (DC) Activity Level: No Restrictions Discharge Diet: Regular Follow Up Appointments: Constanza Cardozo MD [Primary Care Provider] - 07/27/22 10:00 am (Follow-up at [facility] with Dr. Cardozo.) Forms: [employer] Heart Valve Info Instructions Discharge Comments: Continue cephalexin as prescribed before. Stop amlodipine and follow-up with your doctor to reassess your urinary infections and blood pressure. Consider repeat visit with Urology.
== END 2022-07-14 13:00 | disposition home or self-care (01) | DRG 698 ==
LOC: ED 02:22 → MEDSURG 03:27
PROVIDERS: Admitting Provider Family Medicine; Emergency Provider Family Medicine; PCP Family Medicine; Visit Provider Family Medicine
DX: T83.518A Infection and inflammatory reaction due to other urinary catheter, initial encounter (principal); J18.9 Pneumonia, unspecified organism; N39.0 Urinary tract infection, site not specified; G93.49 Other encephalopathy; B96.20 Unspecified Escherichia coli [E. coli] as the cause of diseases classified elsewhere; N31.9 Neuromuscular dysfunction of bladder, unspecified; R33.9 Retention of urine, unspecified; Z96.82 Presence of neurostimulator; I12.9 Hypertensive chronic kidney disease with stage 1 through stage 4 chronic kidney disease, or unspecified chronic kidney disease; N18.30 Chronic kidney disease, stage 3 unspecified; R41.0 Disorientation, unspecified; M06.9 Rheumatoid arthritis, unspecified; I87.8 Other specified disorders of veins; R60.9 Edema, unspecified; Z86.718 Personal history of other venous thrombosis and embolism; E78.5 Hyperlipidemia, unspecified
CPT/HCPCS: 36415; 71045; 80053; 81003; 81015; 83605; 85025; 86140; 87040; 87086; 87186; 87635; 93005; 99284; 99285; A9270; J0696; J1650; J7120

== ENCOUNTER 2023-02-15 13:20 | Outpatient (CLI) | payer MEDICARE, BC, SELFPAY | END 2023-02-15 13:21 | disposition home or self-care (01) | PROVIDERS: PCP Family Medicine; Visit Provider Surgery | DX: I87.2 Venous insufficiency (chronic) (peripheral) (principal); L97.822 Non-pressure chronic ulcer of other part of left lower leg with fat layer exposed; M05.9 Rheumatoid arthritis with rheumatoid factor, unspecified; N18.30 Chronic kidney disease, stage 3 unspecified | CPT/HCPCS: 97597; 99213 ==

== ENCOUNTER 2023-02-21 15:14 | Outpatient (CLI) | payer MEDICARE, BC, SELFPAY | END 2023-02-21 15:15 | disposition home or self-care (01) | LOC: WOUND 15:14 | PROVIDERS: PCP Family Medicine; Visit Provider Nurse Practitioner Family | DX: I87.2 Venous insufficiency (chronic) (peripheral) (principal); L97.822 Non-pressure chronic ulcer of other part of left lower leg with fat layer exposed | CPT/HCPCS: 97597 ==

== ENCOUNTER 2023-03-01 14:57 | Outpatient (CLI) | payer MEDICARE, BC, SELFPAY | END 2023-03-01 14:58 | disposition home or self-care (01) | LOC: WOUND 14:58 | PROVIDERS: PCP Family Medicine; Visit Provider Surgery | DX: I87.2 Venous insufficiency (chronic) (peripheral) (principal); L97.821 Non-pressure chronic ulcer of other part of left lower leg limited to breakdown of skin; I10 Essential (primary) hypertension | CPT/HCPCS: 97597 ==

== ENCOUNTER 2023-03-08 14:10 | Outpatient (CLI) | payer MEDICARE, BC, SELFPAY | END 2023-03-08 14:11 | disposition home or self-care (01) | LOC: WOUND 14:10 | PROVIDERS: PCP Family Medicine; Visit Provider Surgery | DX: I87.2 Venous insufficiency (chronic) (peripheral) (principal); L97.821 Non-pressure chronic ulcer of other part of left lower leg limited to breakdown of skin; I10 Essential (primary) hypertension | CPT/HCPCS: 97597 ==

== ENCOUNTER 2023-03-15 15:04 | Outpatient (CLI) | payer MEDICARE, BC, SELFPAY | END 2023-03-15 15:05 | disposition home or self-care (01) | LOC: WOUND 15:04 | PROVIDERS: PCP Family Medicine; Visit Provider Surgery | DX: I87.2 Venous insufficiency (chronic) (peripheral) (principal); L97.822 Non-pressure chronic ulcer of other part of left lower leg with fat layer exposed; M05.9 Rheumatoid arthritis with rheumatoid factor, unspecified | CPT/HCPCS: 97597 ==

== ENCOUNTER 2023-03-22 14:18 | Outpatient (CLI) | payer MEDICARE, BC, SELFPAY | END 2023-03-22 14:19 | disposition home or self-care (01) | LOC: WOUND 14:18 | PROVIDERS: PCP Family Medicine; Visit Provider Surgery | DX: I87.2 Venous insufficiency (chronic) (peripheral) (principal); L97.822 Non-pressure chronic ulcer of other part of left lower leg with fat layer exposed; M05.9 Rheumatoid arthritis with rheumatoid factor, unspecified | CPT/HCPCS: 11042 ==

== ENCOUNTER 2023-03-29 14:19 | Outpatient (CLI) | payer MEDICARE, BC, SELFPAY | END 2023-03-29 14:20 | disposition home or self-care (01) | LOC: WOUND 14:19 | PROVIDERS: PCP Family Medicine; Visit Provider Surgery | DX: I87.2 Venous insufficiency (chronic) (peripheral) (principal); L97.812 Non-pressure chronic ulcer of other part of right lower leg with fat layer exposed; M05.9 Rheumatoid arthritis with rheumatoid factor, unspecified | CPT/HCPCS: 11042; G0463 ==

== ENCOUNTER 2023-04-05 14:23 | Outpatient (CLI) | payer MEDICARE, BC, SELFPAY ==
--- OUTSIDE RECORDS SUMMARY | 2023-04-05 14:25 | XMS_ITS | Clinical Summary ---
Author Name Unknown Organization [facility] Address [place], [place] [address] Care Team Providers Care Child Development Teacher Name Role Phone Claudia Betojanny FAUST Unavailable [phone] Sharif Nunez MD Unavailable [phone] Riley Camacho MD Unavailable [phone] Constanza Cardzoo MD Primary Care Provider [phone] Allergies Active Allergy Reactions Criticality Noted Date Comments Clonidine Hallucinations 05/03/2018 Leflunomide Hallucinations 12/21/2017 Lisinopril *Unknown 05/23/2018 Increased creatinine Methotrexate *Unknown 12/21/2017 Did not feel well Opioids - Morphine Analogues Vomiting 07/13/2022 Oxycodone Vomiting,*Unknown 08/11/2011 No reaction listed in [facility] Sulfa (Sulfonamide Antibiotics) *Unknown 12/03/2015 On clinic list No reaction listed in [facility] Hydrocodone-Acetaminoph en Vomiting 10/25/2014 Medications Medication Sig Dispensed Refills Start Date End Date Status CALCIUM CARBONATE/VITAMIN D2 (CALCIUM + VITAMIN D ORAL) Take 1 tablet by mouth once daily. 0 01/11/2010 Active multivitamin-voucher examiner als therapeutic tablet Take 1 tablet by mouth once daily. 0 Active acetaminophen (TYLENOL EXTRA STRENGTH) 500 mg tabletIndications: pain Take 2 tablets by mouth every 6 hours if needed. Max acetaminophen dose: 4000mg in 24 hrs. 0 07/14/2017 Active hydrOXYchloroQUINE (PLAQUENIL) 200 mg tablet Take 1 Tablet (200 mg) by mouth in the morning and 1 Tablet (200 mg) in the evening. 0 10/08/2021 Active predniSONE (DELTASONE) 1 mg tablet Take 1 Tablet (1 mg) by mouth once daily with a meal. 0 10/08/2021 Active aspirin (ECOTRIN) 81 mg enteric coated tablet Take 1 Tablet (81 mg) by mouth once daily with a meal. 0 10/08/2021 Active methotrexate (RHEUMATREX) 2.5 mg tablet Mg weekly 0 10/08/2021 Active methenamine hippurate (HIPREX) 1 gram tabletIndications: Recurrent UTI (urinary tract infection) Take 1 Tablet (1 g) by mouth two times daily. 60 Tablet 11 10/27/2022 Active Catheter 14 FrIndications:Urin gutierrez retention Coloplast Speedie Cath 6 times each day as directed 180 Each 01/04/2023 Active furosemide (LASIX) 20 mg tabletIndications: Bilateral lower extremity edema Take 1 Tablet (20 mg) by mouth two times daily. 180 Tablet 3 01/17/2023 Active alendronate (FOSAMAX) 70 mg tabletIndications: Age related osteoporosis, unspecified pathological fracture presence Take 1 Tablet (70 mg) by mouth once a week in the morning. Take on empty stomach with full glass of water. Do not lie down for 1 hr. 12 Tablet 3 01/17/2023 Active losartan (COZAAR) 50 mg tabletIndications: HTN (hypertension) Take 1 Tablet (50 mg) by mouth once daily. 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 35 mg weekly d/t ckd - Endo E-consult at [place] 10/09/2020 with recommendation to continue fosamax for 5 years, ok to increase to typical dosing Post-traumatic osteoarthritis, left wrist 202207/18/2022 Neurogenic bladder 03/10/2022 Closed fracture of left proximal humerus 022 Closed fracture of distal radius and ulna 2021 Mass of middle lobe of right lung 12/20/2021 Overview: Incidental in CT AP 7/11/22. Stable on repeat chest CT 12/17/21, also w/RLL nodule density of uncertain chronicity. Recommend repeat chest CT in 3-6 mos. Thyroid nodule 12/20/2021 Overview: Incidental on 12/17/[address], thyroid US recommended Presence of neurostimulator 08/25/2021 Prediabetes 08/27/2020 Generalized osteoarthritis 10/26/2018 Personal history of other venous thrombosis and embolism 06/29/2018 Sensorineural hearing loss (SNHL) of both ears 0 06/29/2018 Overview: She has hearing aids ([facility] in [place]). Obesity with body mass index 30 or greater 12/21 Arthritis, rheumatoid 08/17/2017 Overview: RA Sees Dr. Nunez at [facility] [phone] fax [phone] Last Assessment & Plan: I went over the results of her bone density test and LS x ray done 09/30/20 She was glad to hear she did not have osteoporosis. I will forward the results per fax to Dr. Nunez Status post total right knee replacement 018 Retention of urine 02/01/2016 Overview: She has a medical need to catheterize 6x/day to prevent UTIs, to prevent kidney failure related to urinary retention, and to prevent discomfort related to urinary retention. Last Assessment & Plan: She is here today because [facility] [employer] will not supply her with 6 catheters /day. They told her that medicare would only cover 4 catheters/day. She only has 10 catheters left and needs a supply. I contacted Verónica Escalante NP [facility]. She sees her on a routine basis. She will provide Vanessa with enough catheters to get by until her order from [facility] is delivered. She will drive to [place] to grain picker the catheters. I had sent Dr. Lopez's order and visit note to [facility] in [place]. Renay Renee will process the order and have the catheters sent to her home. She felt that they would arrive by next Monday. Vanessa had been up since 5:00 very concerned that she would not be able to get the catheters. She voiced being grateful for the care today. Hypertensive kidney disease, stage III 0 Overview: She has had increased Cr with lisinopril/ARBs and hallucinations once with clonidine. In 2018, [...] is willing. Hypertension Hyperlipidemia Encounters Date Type Department Care Team Description 02/10/2023 2:50 PM MICROPHONE OPERATOR Office Visit [facility] [address] [place] [address] Jacquelin Cifuentes PA Follow Up (Cellulitis of leg) 02/10/2023 Travel 02/07/2023 Orders Only [facility] [address] [place] [address] Jacquelin Cifuentes PA <No scans attached> 02/06/2023 8:45 AM MICROPHONE OPERATOR Orders Only [facility] [address] [place] [address] 1 scan: (1-Ord) US ARTERIAL LOWER EXTREMITY W JANINA BILATERAL ([id number]) 02/06/2023 Telephone [facility] [address] [place] [address] Meena Kumari MD Results (imaging) 02/06/2023 Travel 01/31/2023 2:00 PM MICROPHONE OPERATOR Ancillary Procedure [facility] [address] [place] [address] 01/31/2023 1:00 PM MICROPHONE OPERATOR Ancillary Procedure [address] [address] 01/31/2023 Travel 01/18/[address] [address] Jacquelin Cifuentes PA Medication Management (CEPHALEXIN) 01/18/[address] [address] Meena Kumari MD Testing (Needs 1 year follow up thyroid ultrasound) 01/17/2023 2:30 PM CDT Office Visit [address] [address] Jacquelin Cifuentes PA Medicare ANNUAL (subsequent) Visit 01/17/2023 Travel 01/14/[address] [address] Constanza Cardozo MD Refill Request (Ferrous Sulfate) 01/09/[address] [phone] Riley Camacho MD 01/09/[address] [address] Constanza Cardozo MD Refill Request (Losartan) 01/04/[address] [phone] Riley Camacho MD Refill Request (14 fr catheter) 01/03/[address] [place] [address] Constanza Cardozo MD Refill Request (Cozaar) from Last 3 Months Immunizations Name Administration Dates Next Due COVID-19 vaccine (Moderna 100mcg/0.5mL) PF, MDV 08/25/2021,02/23/2021,08/03/2020,2020 COVID-19 vaccine (Pfizer-Bio NTech 30mcg/0.3mL) 12YO+ BIVALENT PF, MDV 01/04/2022 DT (Age < 7 years) 07/09/2005 Influenza Virus, Unspecified 01/02/2020,12/24/19 16,01/19/2015 Influenza, High-dose Inactivated 019,01/11/2018,02/06/2017,2015,01/19/2015 Influenza, High-dose Quadriv alent Inactivated 01/04/2022,01/26/2021 Influenza, IIV3 (Age >=3 years) 01/13/2014,01/22,01/16/2012 Influenza, Inactivated AIIV4 (Age 65+ Years) Preserv Free 01/02/2020 Pneumococcal Poly,23-Valent (Pneumovax) 07/09/2005 Pneumococcal conj 13-Valent (Prevnar 13) 01/19/2015 Tdap 02/03/2016 Family History Medical History Relation Name Comments Coronary artery disease Brother Diabetes Brother Heart attack Brother Hypertension Brother Cataracts Father Rheum arthritis Mother Relation Name Status Comments Brother Father Mother Social History Tobacco Use Types Packs/Day Years Used Date Smoking Tobacco: Never Smokeless Tobacco: Never Tobacco Cessation:Counseling Given: Yes Alcohol Use Standard Drinks/Week Comments No 0 (1 standard drink = 0.6 oz pur e alcohol) PHQ-2 Answer Date Recorded PHQ-2 TOTAL SCORE 0 01/17/2023 Social Connections Answer Date Recorded Frequency of Communication with Friends and Fami ly 0 01/17/2023 Financial Resource Strain Answer Date R ecorded Difficulty of Paying Living Expenses 3 01/17/2023 Difficulty of Paying Living Expenses Not on file 01/17/2023 Food Insecurity Answer Date Recorded Worried About Running Out of Food in the Last Ye ar 1 01/17/2023 Transportation Needs Answer Date Record ed Lack of Transportation (Medical) 1 01/17/2023 Housing Stability Answer Date Recorded Unable to Pay for Housing in the Last Year 1 01/17/2023 Sex and Gender Information Value Date Recorded Sex Assigned at Not on file Gender Identity Not on file Sexual Orientation Not on file Obstetrics History Last Filed Vital Signs Vital Sign Reading Time Taken Comments Blood Pressure 188/73 02/10/2023 2:39 PM MICROPHONE OPERATOR Pulse 98 02/10/2023 2:39 PM MICROPHONE OPERATOR Temperature 37.2 ??C (98.9 ??F) 12/02/2021 11:04 AM C DT Respiratory Rate 20 07/14/2017 8:00 AM CDT Oxygen Saturation 98% 02/10/2023 2:39 PM MICROPHONE OPERATOR Inhaled Oxygen Concentration - - Weight 62.6 kg (138 lb) 02/10/2023 2:39 PM MICROPHONE OPERATOR Height 154.9 cm (5' 1) 01/17/2023 2:28 PM CDT Body Mass Index 26.07 01/17/2023 2:28 PM CDT Plan of Treatment Upcoming Encounters Date Type Department Care Team (Late st Contact Info) Description 05/01/2023 1:00 PM MICROPHONE OPERATOR Office Visit [facility] [address] [phone] Eliseo Dias MD [address] [facility] [address] [place] [address] Health Maintenance Due Date Last Done Comments Zoster (shingles) series for age 50+ (1 of 2) 12/04/1959 COVID-19 vaccine series ( season) 2022 01/04/2022, 08/25/2021, 02/23/2021, Additional history exists Influenza for age 65+ 11/25/2022 01/04/2022 , 01/26/2021, 01/02/2020, Additional history exists Medicare Wellness for age 65+ 01/17/2024 01/17/2023, 12/24/2021 BMI (ht and wt on same day) for age 18+ 01/18/2024 01/17/2023, 10/15/2021, 05/09/2016, Additional history exists Depression screening for age 12+ 01/19/2024 01/18/2023, 01/18/2023, 01/17/2023, Additional history exists Tetanus booster 02/02/2026 02/03/2016 Pneumococcal series for age 65+ Completed 5, 07/09/2005 Tdap Completed 02/03/2016 DEXA/DXA scan for age 65+ Completed 2022, 12/14/2020 (Verified in Care Everywhere or Patient Record) Medical Devices Implanted Type Area Book Sewing Machine Operator Device Identifier Shelf Expiration Date Model / Serial / Lot Lead Bladder 28cm Interstim Tined 3mm Spacing - [id number] Implanted:Qty: 1 on 05/04/2016 by Cesar Groves MD at [facility] N/A: Sacrum [employer] 04/25/2020 3889-28# / / [id number] Stimulator 7.7mm 14cc Interstim Ii - [id number] Implanted:Qty: 1 on 05/11/2016 by Cesar Groves MD at [facility] N/A: Sacrum [employer] 10/07/2017 3058# / / [id number] Cmnt Bone 40g Simplex P Non Atb Mv - [id number] Implanted:Qty: 2 on 07/12/2017 by Ignacio Mead MD at [facility] Right: Knee [employer] 04/26/2018 6191-1-010 # / / [id number] Cmnt Bone 40g Simplex P Non Atb Mv - [id number] Implanted:Qty: 1 on 07/12/2017 by Ignacio Mead MD at [facility] Right: Knee [employer] 04/26/2018 6191-1-010 # / / [id number]-O-622 - [id number] Implanted:Qty: 1 on 07/12/2017 by Ignacio Mead MD at [facility] Right: Knee [employer] 04/27/2022 5551-G-350 / / [id number] Description:Triathlon X3 Asy mmetric patella J0061-O-822 - [id number] Implanted:Qty: 1 on 07/12/2017 by Ignacio Mead MD at [facility] Right: Knee [employer] 03/11/2022 5520-B-500 / / [id number] Description:Triathlon primar y tibial baseplate W8030-H-499 - [id number] Implanted:Qty: 1 on 07/12/2017 by Ignacio Mead MD at [facility] Right: Knee [employer] 05/21/2021 5510-F-502 / / [id number] Description:Triathlon crucia te retaining femoral W9353-S-179 - [id number] Implanted:Qty: 1 on 07/12/2017 by Ignacio Mead MD at [facility] Right: Knee 5531-G-50 9 / / [id number] Description:X3 triathlon CS INS Explanted Type Area Book Sewing Machine Operator Device Identifier Shelf Expiration Date Model / Serial / Lot Lead Intrdcr Bladder Interstim - [id number] Explanted:Qty: 1 on 05/04/2016 by Cesar Groves MD at [facility] N/A: Sacrum [employer] Therapy 05/27/2017 3550-18# / / [id number] Procedures Procedure Name Priority Date/Time Associated Diagnosis Comments US ARTERIAL LOWER EXTREMITY W JANINA BILATERAL Routine 02/06/2023 9:41 AM MICROPHONE OPERATOR Left leg cellulitis CT CHEST WO Routine 01/31/2023 1:25 PM MICROPHONE OPERATOR Mass of middle lobe of right lung US THYROID/PARATHYROID Routine 01/31/2023 1:16 PM MICROPHONE OPERATOR Thyroid nodule T4,FREE Add On 01/17/2023 3:17 PM CDT Thyroid condition CBC WITH AUTO DIFFERENTIAL Routine 01/17/2023 3:17 PM CDT Other iron deficiency anemia HEMOGLOBIN A1C SCREENING Routine 01/17/2023 3:17 PM CDT Hyperglycemia CBC WITH AUTO DIFFERENTIAL Routine 01/17/2023 3:17 PM CDT Other iron deficiency anemia TSH Routine 01/17/2023 3:17 PM CDT Thyroid nodule LIPID PANEL W REFLEX MEASURED LDL Routine 01/17/2023 3:17 PM CDT Screening for cholesterol level COMP METABOLIC PANEL Routine 01/17/2023 3:17 PM CDT HTN (hypertension) from Last 3 Months Results * US ARTERIAL LOWER EXTREMITY W JANINA BILATERAL (02/06/2023 9:41 AM MICROPHONE OPERATOR) Anatomical Region Laterality Modality LEGS Ultrasound 02/06/2023 8:44 AM MICROPHONE OPERATOR Narrative 02/07/2023 12:24 PM MICROPHONE OPERATOR VASCULAR ULTRASOUND REPORT VANESSA ANDINO Accession#: ?? [id number] : ?1940 ??Study Date: ?? 02/06/2023 8:44:27 AM Age: ?82 years ?? Tech: ? BSG Gender: F ?Referring MD: JACQUELIN CIFUENTES Site: [facility] Study performed: ?Lower extremity duplex US, resting JANINA, (bilateral). Indication for study: LE pain/numbness, left LE cellulitis Study Quality: ?Good TECHNIQUE: Lower/upper extremity arteries were examined per exam protocol by duplex ultrasound, color-flow and spectral Doppler. Peak systolic velocities (PSV), Doppler waveform quality, velocity ratios and vessel size in cm, were documented at protocol specific sites. Physiologic data including segmental pressures, ankle/brachial index (JANINA), digit PPG recordings, laser Doppler flowmetry, transcutaneous oximetry, and digit temperatures were documented at sites per exam protocol and test requirements. IMPRESSION: 1. Resting ankle-brachial index is normal on the right at 1.16 and is normal on the left at 1.20. 2. Multiphasic waveforms throughout bilateral lower extremities (a normal finding), without focal velocity shift to suggest a hemodynamically significant stenosis. COMPARISON: No prior study available for comparison. FINDINGS: + + + + RIGHT ? Velocity cm/s Phasicity ?? + + + + OFFICE AUDITOR PRX ? 155 ? multiphasic + + + + OFFICE AUDITOR DST ? 112 ? multiphasic + + + + PFA ? 91 ? multiphasic + + + + SFA PRX ? 130 ? multiphasic + + + + SFA PRX MID ? 121 ? multiphasic + + + + SFA MID ? 110 ? multiphasic + + + + SFA DST ? 92 ? multiphasic + + + + MICHAEL PRX ? 83 ? multiphasic + + + + MICHAEL DST ? 88 ? multiphasic + + + + NARCOTICS AGENT DST ? 73 ? multiphasic + + + + KOURTNEY DST ? 91 ? multiphasic + + + + DPA ? 87 ? multiphasic + + + + + + + + LEFT ? Velocity cm/s Phasicity ?? + + + + OFFICE AUDITOR PRX ? 153 ? multiphasic + + + + OFFICE AUDITOR DST ? 123 ? multiphasic + + + + PFA ? 112 ? multiphasic + + + + SFA PRX ? 121 ? multiphasic + + + + SFA PRX MID ? 144 ? multiphasic + + + + SFA MID ? 125 ? multiphasic + + + + SFA DST ? 113 ? multiphasic + + + + MICHAEL PRX ? 96 ? multiphasic + + + + MICHAEL DST ? 101 ? multiphasic + + + + NARCOTICS AGENT DST ? 76 ? multiphasic + + + + KOURTNEY DST ? 49 ? multiphasic + + + + DPA ? 168 ? multiphasic + + + + Criteria: Stenosis ?V. Ratio Mild ?<50% ?<2.0 Moderate ?? 50-74% ?> or = 2.0 Severe ? 75-99% ?> or = 4.0 Occluded ?100% ?? no detectable flow Pressures +-----+ +--------+ +-----+ ? RIGHT (mmHg) ? LEFT (mmHg) ? +-----+ +--------+ +-----+ Index ?148 ? Brachial ?145 ? Index +-----+ +--------+ +-----+ 1.09 ?162 ?NARCOTICS AGENT ?170 ? 1.15 +-----+ +--------+ +-----+ 1.16 ?172 ?DPA ?178 ? 1.20 +-----+ +--------+ +-----+ Danilo Oseguera MD. [employer] Electronically signed on 02/07/2023 12:24:15 PM This study was performed and interpreted by a service accredited by the Intersocietal Accreditation Commission (IAC/Vascular), [email or web address] Report generated by [facility]. ??Final ?? Procedure Note Danilo Oseguera MD - 02/07/2023 VASCULAR ULTRASOUND REPORT VANESSA ANDINO : 1940 Study Date: 02/06/2023 8:44:27 AM Age: 82 years Tech: [facility] Gender: F Referring MD: JACQUELIN CIFUENTES Site: [facility] Study performed: Lower extremity duplex US, resting JANINA,(bilateral). Indication for study: LE pain/numbness, left LE cellulitis Study Quality: Good TECHNIQUE: Lower/upper extremity arteries were examined per exam protocol by duplexultrasound, color-flow and spectral Doppler. Peak systolic velocities(PSV), Doppler waveform quality, velocity ratios and vessel size in cm,were documented at protocol specific sites. Physiologic data includingsegmental pressures, ankle/brachial index (JANINA), digit PPG recordings,laser Doppler flowmetry, transcutaneous oximetry, and digit temperatureswere documented at sites per exam protocol and test requirements. IMPRESSION: 1. Resting ankle-brachial index is normal on the right at 1.16 and isnormal on the left at 1.20. 2. Multiphasic waveforms throughout bilateral lower extremities (a normalfinding), without focal velocity shift to suggest a hemodynamicallysignificant stenosis. COMPARISON: No prior study available for comparison. FINDINGS: + + + + RIGHT Velocity cm/s Phasicity + + + + OFFICE AUDITOR PRX 155 multiphasic + + + + OFFICE AUDITOR DST 112 multiphasic + + + + PFA 91 multiphasic + + + + SFA PRX 130 multiphasic + + + + SFA PRX MID 121 multiphasic + + + + SFA MID 110 multiphasic + + + + SFA DST 92 multiphasic + + + + MICHAEL PRX 83 multiphasic + + + + MICHAEL DST 88 multiphasic + + + + NARCOTICS AGENT DST 73 multiphasic + + + + KOURTNEY DST 91 multiphasic + + + + DPA 87 multiphasic + + + + + + + + LEFT Velocity cm/s Phasicity + + + + OFFICE AUDITOR PRX 153 multiphasic + + + + OFFICE AUDITOR DST 123 multiphasic + + + + PFA 112 multiphasic + + + + SFA PRX 121 multiphasic + + + + SFA PRX MID 144 multiphasic + + + + SFA MID 125 multiphasic + + + + SFA DST 113 multiphasic + + + + MICHAEL PRX 96 multiphasic + + + + MICHAEL DST 101 multiphasic + + + + NARCOTICS AGENT DST 76 multiphasic + + + + KOURTNEY DST 49 multiphasic + + + + DPA 168 multiphasic + + + + Criteria: Stenosis V. Ratio Mild <50% <2.0 Moderate 50-74% > or = 2.0 Severe 75-99% > or = 4.0 Occluded 100% no detectable flow Pressures +-----+ +--------+ +-----+ RIGHT (mmHg) LEFT (mmHg) +-----+ +--------+ +-----+ Index 148 Brachial 145 Index +-----+ +--------+ +-----+ 1.09 162 NARCOTICS AGENT 170 1.15 +-----+ +--------+ +-----+ 1.16 172 DPA 178 1.20 +-----+ +--------+ +-----+ Danilo Oseguera MD. [employer] Electronically signed on 02/07/2023 12:24:15 PM This study was performed and interpreted by a service accredited by theIntersocietal Accreditation Commission (IAC/Vascular),[email or web address] Report generated by [facility]. Final Jacquelin RINCON US * CT CHEST WO (01/31/2023 1:25 PM MICROPHONE OPERATOR) Anatomical Region Laterality Modality CHEST, THORAX, HEART Computed To mography 01/31/2023 1:35 PM MICROPHONE OPERATOR Addenda Addendum by Eliseo Gutierrez MD on 02/03/2023 3:02 PM MICROPHONE OPERATOR For Patients: ??As a result of the Cures Act, medical imaging exams and procedure reports are released immediately into your electronic medical record. ??You may view this report before your referring provider. ?? If you have questions, please contact your health care provider. Continued follow-up recommended. Please note that all CT scans at this facility use dose modulation, iterative reconstruction, and/or weight-based dosing when appropriate to reduce radiation dose to as low as reasonably achievable. Dictated by Eliseo Gutierrez MD @ Feb 03 2023 ??3:02PM (Electronically Signed) ?? Narrative 01/31/2023 1:35 PM MICROPHONE OPERATOR For Patients: ??As a result of the Cures Act, medical imaging exams and procedure reports are released immediately into your electronic medical record. ??You may view this report before your referring provider. ??If you have questions, please contact your health care provider. Indication: Follow up nodule Technique: Noncontrast CT chest Please note that all CT scans at this facility use dose modulation, iterative reconstruction, and/or weight-based dosing when appropriate to reduce radiation dose to as low as reasonably achievable. Comparison: 06/20/2022, 12/17/2021 Findings: Nodular density in the right middle lobe is similar measuring 1.7 x 1.5 cm. Stable density within the superior segment of the right lower lobe. Stable scarring at both lung apices. Unchanged small nodule within the lingula. No pleural effusion. Similar nodular density in the right lower lobe medially. Ovoid density within the anterior right lower lobe measuring 1 cm, series 10, image 106. She similar appearance of the thyroid. No enlarged lymph nodes. Vascular calcifications. Postop changes left proximal humerus. Increased thoracic kyphosis. No fracture. Impression: Similar densities within the right middle lobe and superior segment right lower lobe. Increased conspicuity of an ovoid density within the right lower lobe anteriorly at the lung base measuring 1 cm. No adenopathy. Stable thyroid. Please note that all CT scans at this facility use dose modulation, iterative reconstruction, and/or weight-based dosing when appropriate to reduce radiation dose to as low as reasonably achievable. Dictated by Eliseo Gutierrez MD @ Nov ??2022 ??1:35PM (Electronically Signed) ?? Procedure Note Eliseo Gutierrez MD - 01/31/2023 For Patients: As a result of the Cures Act, medical imagingexams and procedure reports are released immediately into your electronicmedical record. You may view this report before your referring provider.If you have questions, please contact your health care provider. Indication: Follow up nodule Technique: Noncontrast CT chest Please note that all CT scans at this facility use dose modulation,iterative reconstruction, and/or weight-based dosing when appropriate toreduce radiation dose to as low as reasonably achievable. Comparison: 06/20/2022, 12/17/2021 Findings: Nodular density in the right middle lobe is similar measuring 1.7 x 1.5cm. Stable density within the superior segment of the right lower lobe.Stable scarring at both lung apices. Unchanged small nodule within thelingula. No pleural effusion. Similar nodular density in the right lowerlobe medially. Ovoid density within the anterior right lower lobemeasuring 1 cm, series 10, image 106. She similar appearance of thethyroid. No enlarged lymph nodes. Vascular calcifications. Postop changesleft proximal humerus. Increased thoracic kyphosis. No fracture. Impression: Similar densities within the right middle lobe and superior segment rightlower lobe. Increased conspicuity of an ovoid density within the right lower lobeanteriorly at the lung base measuring 1 cm. No adenopathy. Stable thyroid. Please note that all CT scans at this facility use dose modulation,iterative reconstruction, and/or weight-based dosing when appropriate toreduce radiation dose to as low as reasonably achievable. Dictated by Eliseo Gutierrez MD @ Jan 31 2023 1:35PM (Electronically Signed) Jacquelin Susanne RINCON CT * US THYROID/PARATHYROID (01/31/2023 1:16 PM MICROPHONE OPERATOR) Anatomical Region Laterality Modality THYROID Ultrasound 01/31/2023 1:22 PM MICROPHONE OPERATOR Impressions 01/31/2023 1:22 PM MICROPHONE OPERATOR Similar morphology in size of right-sided thyroid nodule measuring 3.5 cm. Dictated by Eliseo Gutierrez MD @ Jan ??2022 ??1:22PM (Electronically Signed) ?? Narrative 01/31/2023 1:22 PM MICROPHONE OPERATOR For Patients: ??As a result of the Cures Act, medical imaging exams and procedure reports are released immediately into your electronic medical record. ??You may view this report before your referring provider. ??If you have questions, please contact your health care provider. INDICATION: Follow-up nodule COMPARISON: 12/29/2021 TECHNIQUE: Awad scale and color Doppler images were acquired of the thyroid gland. FINDINGS: Heterogeneously hypoechoic nodule right thyroid lobe measures 3.5 x 3.2 x 2.7 cm, previously measured 3.7 x 3.4 x 3.0 cm. The right lobe measures 4.2 x 3.7 x 3.5 cm and the left lobe measures 4.0 x 2.1 x 1.3 cm in size. The color Doppler images demonstrate normal vascularity. There is no evidence of cervical lymphadenopathy or parathyroid mass. Procedure Note Eliseo Gutierrez MD - 01/31/2023 For Patients: As a result of the Cures Act, medical imagingexams and procedure reports are released immediately into your electronicmedical record. You may view this report before your referring provider.If you have questions, please contact your health care provider. INDICATION: Follow-up nodule COMPARISON: 12/29/2021 TECHNIQUE: Awad scale and color Doppler images were acquired of the thyroid gland. FINDINGS: Heterogeneously hypoechoic nodule right thyroid lobe measures 3.5 x 3.2 x2.7 cm, previously measured 3.7 x 3.4 x 3.0 cm. The right lobe measures4.2 x 3.7 x 3.5 cm and the left lobe measures 4.0 x 2.1 x 1.3 cm in size.The color Doppler images demonstrate normal vascularity. There is noevidence of cervical lymphadenopathy or parathyroid mass. IMPRESSION: Similar morphology in size of right-sided thyroid nodule measuring 3.5cm. Dictated by Eliseo Gutierrez MD @ Jan 31 2023 1:22PM (Electronically Signed) Meena Kumari MD US * (ABNORMAL) CBC WITH AUTO DIFFERENTIAL (01/17/2023 3:17 PM CDT) WHITE BLOOD COUNT 8.2 4.5 - 11.0 thou/cu mm 01/17/2023 3:25 PM CDT [facility] RED BLOOD COUNT 3.47(L) 4.00 - 5.20 mil/cu mm 01/17/2023 3:25 PM CDT [facility] HEMOGLOBIN 11.3(L) 12.0 - 16.0 g/dL 01/17/2023 3:25 PM CDT [facility] HEMATOCRIT 34.3 33.0 - 51.0 % 01/17/2023 3:25 PM CDT [facility] MCV 99 80 - 100 fL 01/17/2023 3:25 PM CDT [facility] MCH 32.6 26.0 - 34.0 pg 01/17/2023 3:25 PM CDT [facility] MCHC 32.9 32.0 - 36.0 g/dL 01/17/2023 3:25 PM CDT [facility] RDW 14.6 11.5 - 15.5 % 01/17/2023 3:25 PM CDT [facility] PLATELET COUNT 359 140 - 440 thou/cu mm 01/17/2023 3:25 PM CDT [facility] MPV 8.8 6.5 - 11.0 fL 01/17/2023 3:25 PM CDT [facility] % NEUT 79.9 % 01/17/2023 3:25 PM CDT [facility] % LYMPH 13.3 % 01/17/2023 3:25 PM CDT [facility] % MONO 5.6 % 01/17/2023 3:25 PM CDT [facility] % EOS 0.6 % 01/17/2023 3:25 PM CDT [facility] % BASO 0.6 % 01/17/2023 3:25 PM CDT [facility] ABSOLUTE NEUTROPHILS 6.6 1.7 - 7.0 thou/cu mm 01/17/2023 3:25 PM CDT [facility] ABSOLUTE LYMPHOCYTES 1.1 0.9 - 2.9 thou/cu mm 01/17/2023 3:25 PM CDT [facility] ABSOLUTE MONOCYTES 0.5 <0.9 thou/cu mm 01/17/2023 3:25 PM CDT [facility] ABSOLUTE EOSINOPHILS 0.1 <0.5 thou/cu mm 01/17/2023 3:25 PM CDT [facility] ABSOLUTE BASOPHILS 0.1 <0.3 thou/cu mm 01/17/2023 3:25 PM CDT [facility] Blood BLOOD SPECIMEN / Unknown Venipuncture / Unknown 01/17/2023 3:17 PM CDT 01/17/2023 3:18 PM CDT Jacquelin RINCON HEMATOLOGY [facility] [address] [place] [address], * HEMOGLOBIN A1C SCREENING (01/17/2023 3:17 PM CDT) HEMOGLOBIN A1C SCREENING 5.9 <=6.4 % 01/18/2023 6:46 AM CDT [facility] Blood BLOOD SPECIMEN / Unknown Venipuncture / Unknown 01/17/2023 3:17 PM CDT 01/17/2023 3:18 PM CDT Narrative [facility] - 01/18/2023 6:46 AM CDT ? (<5.7%) ?Normal ? (5.7% to 6.4%) ? Indicates prediabetes ? (>=6.5%) ? Confirms diabetes Falsely low levels may be seen with: Recent Transfusion, Recent Significant Blood Loss, Hemolytic Diseases, or Falsely elevated levels may be seen with: Untreated Anemias, Splenectomy Jacquelin RINCON CHEMISTRY [facility] [address] [place] [address], * (ABNORMAL) LIPID PANEL W REFLEX MEASURED LDL (01/17/2023 3:17 PM CDT) CHOLESTEROL,TOTAL 146 100 - 199 mg/dL 01/17/2023 10:21 PM CDT [facility] Comment: Cholesterol, Total Reference Ranges Desirable <200 mg/dL Borderline 200-239 mg/dL High >=240 mg/dL TRIGLYCERIDES 197(H) <150 mg/dL 01/17/2023 10:21 PM CDT [facility] HDL CHOLESTEROL 64 >40 mg/dL 10:21 PM CDT [facility] NON-HDL CHOLESTEROL 82 <145 mg/dl 01/17/2023 10:21 PM CDT [facility] CHOL/HDL RATIO 2.28 <4.50 01/17/2023 10:21 PM CDT [facility] LDL CHOLESTEROL 43 <=130 mg/dL 01/17/2023 10:21 PM CDT [facility] VLDL CHOLESTEROL 39(H) <=30 mg/dL 01/17/2023 10:21 PM CDT [facility] PROVIDER ORDERED STATUS RANDOM 01/17/2023 10:21 PM CDT [facility] Blood BLOOD SPECIMEN / Unknown Venipuncture / Unknown 01/17/2023 3:17 PM CDT 01/17/2023 3:18 PM CDT Jacquelin RINCON CHEMISTRY Performing Organization Address City/[facility] Co de Phone Number [facility] [address] [address], [place] * (ABNORMAL) TSH (01/17/2023 3:17 PM CDT) TSH 0.17(L) 0.27 - 4.20 uIU/mL 01/17/2023 10:21 PM CDT [facility] Blood BLOOD SPECIMEN / Unknown Venipuncture / Unknown 01/17/2023 3:17 PM CDT 01/17/2023 3:18 PM CDT Narrative [facility] - 01/17/2023 10:21 PM CDT In Adults, TSH values between 5.00 and 10.00 uIU/ml do not necessarily indicate the presence of Hypothyroidism. Correlation with clinical findings such as presence of goiter and/or Thyroperoxidase (TPO) Antibody may be helpful. For more information please refer to ISIDORO 2004; 291: [phone]. Jacquelin RINCON CHEMISTRY Performing Organization Address [facility] Co de Phone Number [facility] [address] [place] [address], [place] * T4,FREE (01/17/2023 3:17 PM CDT) T4,FREE 1.49 0.93 - 1.70 ng/dL 01/20/2023 1:21 AM CDT [facility] Blood BLOOD SPECIMEN / Unknown Venipuncture / Unknown 01/17/2023 3:17 PM CDT 01/17/2023 3:18 PM CDT Jacquelin RINCON CHEMISTRY Performing Organization Address City/[facility] Co de Phone Number [facility] [address] [address], [place] * (ABNORMAL) COMP METABOLIC PANEL (01/17/2023 3:17 PM CDT) SODIUM 139 136 - 145 mmol/L 01/17/2023 10:21 PM CDT [facility] POTASSIUM 4.4 3.5 - 5.1 mmol/L 01/17/2023 10:21 PM CDT [facility] CHLORIDE 102 98 - 107 mmol/L 01/17/2023 10:21 PM T [facility] CO2,TOTAL 25 22 - 29 mmol/L 01/17/2023 10:21 PM CDT [facility] ANION GAP 12 5 - 18 01/17/2023 10:21 PM T [facility] GLUCOSE 145(H) 70 - 99 mg/dL 01/17/2023 10:21 PM CDT [facility] CALCIUM 9.7 8.8 - 10.2 mg/dL 01/17/2023 10:21 PM T [facility] BUN 34(H) 8 - 23 mg/dL 01/17/2023 10:21 PM T [facility] CREATININE 1.33(H) 0.50 - 0.90 mg/dL 01/17/2023 10:21 PM T [facility] BUN/CREAT RATIO 26(H) 10 - 20 10:21 PM T [facility] eGFR 40(L) >90 mL/min/1.7 3m2 01/17/2023 10:21 PM T [facility] Comment:As of 2021, eG FR is calculated by the CKD-EPI creatinine equation without race adjustment. ??eGFR can be influenced by muscle mass, exercise, and diet. ??The reported eGFR is an estimation only and is only applicable if the renal function is stable. ALBUMIN 4.2 4.0 - 4.9 g/dL 01/17/2023 10:21 PM CDT [facility] PROTEIN,TOTAL 7.2 6.0 - 8.0 g/dL 01/17/2023 10:21 PM CDT [facility] BILIRUBIN,TOTAL 0.3 0.0 - 1.2 mg/dL 01/17/2023 10:21 PM CDT [facility] ALK PHOSPHATASE 79 35 - 104 IU/L 01/17/2023 10:21 PM CDT [facility] ALT (SGPT) 26 10 - 35 IU/L 01/17/2023 10:21 PM CDT [facility] AST (SGOT) 39(H) 10 - 35 IU/L 01/17/2023 10:21 PM CDT [facility] Blood BLOOD SPECIMEN / Unknown Venipuncture / Unknown 01/17/2023 3:17 PM CDT 01/17/2023 3:18 PM CDT Jacquelin RINCON CHEMISTRY Performing Organization Address City/State/[facility] Co de Phone Number [facility] [address] [place] [phone], from Last 3 Months Advance Directives Documents on File Type Date Recorded Patient Efficiency Manager Expl anation POLST 07/14/2017 8:01 AM 01/12/2017 Power of Trade Promotion Analyst 07/14/2017 7:57 AM 01/06 Healthcare Directive 07/14/2017 7:57 AM Latest Code Status on File Code Status Date Activated Date Inactivated Comments Full Code 07/12/2017 7:10 AM 07/14/2017 4:57 PM Code Status History Code Status Date Activated Date Inactivated Comments Full Code 05/11/2016 10:33 AM 05/11/2016 7:12 PM Full Code 05/04/2016 7:01 AM 05/04/2016 3:07 PM Care Teams Child Development Teacher Relationship Specialty Start Date End Date Constanza Cardozo MD [address] [place] [address] PCP - General Family Practice 08/25/22 Beto Taylor LSW Splicer Helper 07/13/17 Sharif Nunez MD [address] [facility] [address] [address] Rheumatology 10/08/21 Riley Camacho MD [address] [facility] [address] [place] [address] Surgery - Urology 08/25/22
== END 2023-04-05 14:24 | disposition home or self-care (01) ==
LOC: WOUND 14:23
PROVIDERS: PCP Family Medicine; Visit Provider Surgery
DX: I87.2 Venous insufficiency (chronic) (peripheral) (principal); L97.822 Non-pressure chronic ulcer of other part of left lower leg with fat layer exposed
CPT/HCPCS: 11042

== ENCOUNTER 2023-04-12 13:22 | Outpatient (CLI) | payer MEDICARE, BC, SELFPAY ==
--- OUTSIDE RECORDS SUMMARY | 2023-04-12 13:46 | XMS_ITS | Clinical Summary ---
Author Name Unknown Organization [facility] Address [place], [place] [address] Care Team Providers Care Chute Builder Name Role Phone Claudia Betojanny FAUST Unavailable [phone] Sharif Nunez MD Unavailable [phone] Riley Camacho MD Unavailable [phone] Constanza Cardozo MD Primary Care Provider [phone] Allergies Active Allergy Reactions Criticality Noted Date [...] by mouth once daily. 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 Obesity with body mass index 30 or greater 12/21 Arthritis, rheumatoid 08/17/2017 Overview: RA Sees Dr. Nunez at [facility] [phone] fax [phone] Last Assessment & Plan: I went over [...] & Plan: She is here today because [facility] will not supply her with 6 catheters /day. They told her that medicare would only cover 4 catheters/day. She only has 10 catheters left and needs a supply. I contacted Verónica Escalante NP [place] [facility]. She sees her on a routine basis. She will provide Vanessa with enough catheters to get by until her order from [facility] is delivered. She will drive to [place] to pick remover the catheters. I had sent Dr. Lopez's order and visit note to [facility] in [place]. Renay Renee will process the order and [...] Department Care Team Description 02/10/2023 2:50 PM FOUNDRY TECHNICIAN Office Visit [facility] [address] [place] [address] Jacquelin Cifuentes PA Follow Up (Cellulitis of leg) 02/10/2023 Travel 02/07/2023 Orders Only [facility] [address] [place] [address] Jacquelin Cifuentes PA <No scans attached> 02/06/2023 8:45 AM FOUNDRY TECHNICIAN Orders Only [facility] [address] [place] [address] 1 scan: (1-Ord) US ARTERIAL LOWER EXTREMITY W JANINA BILATERAL ([id number]) 02/06/2023 Telephone [facility] [address] [place] [address] Meena Kumari MD Results (imaging) 02/06/2023 Travel 01/31/2023 2:00 PM FOUNDRY TECHNICIAN Ancillary Procedure [facility] [address] [place] [address] 01/31/2023 1:00 PM FOUNDRY TECHNICIAN Ancillary Procedure [facility] [address] [place] [address] 01/31/2023 Travel 01/18/[address] [address] Jacquelin Cifuentes PA Medication Management (CEPHALEXIN) 01/18/2023 Telephone [facility] [address] [place] [address] Meena Kumari MD Testing (Needs 1 year follow up thyroid ultrasound) 01/17/2023 2:30 PM CDT Office Visit [facility] [address] [place] [address] Jacquelin Cifuentes PA Medicare ANNUAL (subsequent) Visit 01/17/2023 Travel 01/14/2023 Refill [facility] [address] [place] [address] Constanza Cardozo MD Refill Request (Ferrous Sulfate) from Last 3 Months Immunizations Name Administration Dates Next Due COVID-19 vaccine (Moderna 100mcg/0.5mL) SHAUN DE PAZ 08/25/2021,02/23/2021,08/03/2020,2020 COVID-19 vaccine (Pfizer-Bio NTech 30mcg/0.3mL) 12YO+ BIVALENT PF MDV 01/04/2022 DT (Age < 7 years) [...] Comments Blood Pressure 188/73 02/10/2023 2:39 PM FOUNDRY TECHNICIAN Pulse 98 02/10/2023 2:39 PM FOUNDRY TECHNICIAN Temperature 37.2 ??C (98.9 ??F) 12/02/2021 11:04 AM C DT Respiratory Rate 20 07/14/2017 8:00 AM CDT Oxygen Saturation 98% 02/10/2023 2:39 PM FOUNDRY TECHNICIAN Inhaled Oxygen Concentration - - Weight 62.6 kg (138 lb) 02/10/2023 2:39 PM FOUNDRY TECHNICIAN Height 154.9 cm (5' 1) 01/17/2023 2:28 PM CDT Body Mass Index 26.07 01/17/2023 2:28 PM CDT Plan of Treatment Upcoming Encounters Date Type Department Care Team (Late st Contact Info) Description 05/01/2023 1:00 PM FOUNDRY TECHNICIAN Office Visit [facility] [address] [place] [phone] Eliseo Dias MD [address] [place] [address] Health Maintenance Due Date Last Done Comments [...] Patient Record) Medical Devices Implanted Type Area Solder Making Laborer Device Identifier Shelf Expiration Date Model / Serial / Lot Lead Bladder 28cm Interstim Tined 3mm Spacing - [id number] Implanted:Qty: 1 on 05/04/2016 by Cesar Groves MD at [facility] N/A: Sacrum [employer] Pain Therapy 04/25/2020 [id number]# / / [id number] Stimulator 7.7mm 14cc Interstim Ii - [id number] Implanted:Qty: 1 on 05/11/2016 by Cesar Groves MD at [facility] N/A: Sacrum [employer] Pain Therapy 10/07/2017 3058# / / [id number] Cmnt Bone 40g Simplex P Non Atb Mv - [id number] Implanted:Qty: 2 on 07/12/2017 by Ignacio Mead MD at [facility] Right: Knee [employer] 04/26/2018 6191-1-010 # / / [id number] Cmnt Bone 40g Simplex P Non Atb Mv - [id number] Implanted:Qty: 1 on 07/12/2017 by Ignacio Mead MD at [facility] Right: Knee [employer] 04/26/2018 6191-1-010 # / / [id number]-F-817 - [id number] Implanted:Qty: 1 on 07/12/2017 by Ignacio Mead MD at [facility] Right: Knee [employer] 04/27/2022 5551-G-350 / / [id number] Description:Triathlon X3 Asy mmetric patella S4794-O-893 - [id number] Implanted:Qty: 1 on 07/12/2017 by Ignacio Mead MD at [facility] Right: Knee [employer] 03/11/2022 5520-B-500 / / [id number] Description:Triathlon primar y tibial baseplate A7806-P-464 - [id number] Implanted:Qty: 1 on 07/12/2017 by Ignacio Mead MD at [facility] Right: Knee [employer] 05/21/2021 5510-F-502 / / [id number] Description:Triathlon crucia te retaining femoral L1296-J-022 - [id number] Implanted:Qty: 1 on 07/12/2017 by Ignacio Mead MD at [facility] Right: Knee 5531-G-50 9 / / [id number] Description:X3 triathlon CS INS Explanted Type Area Solder Making Laborer Device Identifier Shelf Expiration Date Model / Serial / Lot Lead Intrdcr Bladder Interstim - [id number] Explanted:Qty: 1 on 05/04/2016 by Cesar Groves MD at [facility] N/A: Sacrum [employer] Pain Therapy 05/27/2017 3550-18# / / [id number] Procedures Procedure Name Priority Date/Time Associated Diagnosis Comments US ARTERIAL LOWER EXTREMITY W JANINA BILATERAL Routine 02/06/2023 9:41 AM FOUNDRY TECHNICIAN Left leg cellulitis CT CHEST WO Routine 01/31/2023 1:25 PM FOUNDRY TECHNICIAN Mass of middle lobe of right lung US THYROID/PARATHYROID Routine 01/31/2023 1:16 PM FOUNDRY TECHNICIAN Thyroid nodule T4,FREE Add On 01/17/2023 3:17 [...] EXTREMITY W JANINA BILATERAL (02/06/2023 9:41 AM FOUNDRY TECHNICIAN) Anatomical Region Laterality Modality LEGS Ultrasound 02/06/2023 8:44 AM FOUNDRY TECHNICIAN Narrative 02/07/2023 12:24 PM FOUNDRY TECHNICIAN VASCULAR ULTRASOUND REPORT VANESSA ANDINO Accession#: ?? [id number] : ?1940 ??Study Date: ?? 02/06/2023 8:44:27 AM Age: ?82 years ?? Tech: ? BSG Gender: F ?Referring MD: JACQUELIN CIFUENTES Site: [facility] Study performed: ?Lower extremity duplex US, [...] cm/s Phasicity ?? + + + + SOCIAL MEDIA COMMUNITY MANAGER PRX ? 155 ? multiphasic + + + + SOCIAL MEDIA COMMUNITY MANAGER DST ? 112 ? multiphasic + + [...] 88 ? multiphasic + + + + CUTTER BRAKE LINING DST ? 73 ? multiphasic + + + + KOURTNEY DST ? 91 ? multiphasic + + + + DPA ? 87 ? multiphasic + + + + + + + + LEFT ? Velocity cm/s Phasicity ?? + + + + SOCIAL MEDIA COMMUNITY MANAGER PRX ? 153 ? multiphasic + + + + SOCIAL MEDIA COMMUNITY MANAGER DST ? 123 ? multiphasic + + [...] 101 ? multiphasic + + + + CUTTER BRAKE LINING DST ? 76 ? multiphasic + + [...] ? Index +-----+ +--------+ +-----+ 1.09 ?162 ?CUTTER BRAKE LINING ?170 ? 1.15 +-----+ +--------+ +-----+ 1.16 ?172 ?DPA ?178 ? 1.20 +-----+ +--------+ +-----+ Danilo Oseguera MD. [employer] Electronically signed on 02/07/2023 12:24:15 PM This study was performed and interpreted by a service accredited by the Intersocietal Accreditation Commission (IAC/Vascular), www.intersocietal.org/vascular Report generated by [employer]. ??Final ?? Procedure Note Danilo Oseguera MD - 02/07/2023 VASCULAR ULTRASOUND REPORT VANESSA ANDINO : 1940 Study Date: 02/06/2023 8:44:27 AM Age: 82 years Tech: BSG Gender: F Referring MD: JACQUELIN CIFUENTES Site: [facility] Study performed: Lower extremity duplex US, [...] Velocity cm/s Phasicity + + + + SOCIAL MEDIA COMMUNITY MANAGER PRX 155 multiphasic + + + + SOCIAL MEDIA COMMUNITY MANAGER DST 112 multiphasic + + + + PFA 91 multiphasic + + + + SFA PRX 130 multiphasic + + + + SFA PRX MID 121 multiphasic + + + + SFA MID 110 multiphasic + + + + SFA DST 92 multiphasic + + + + MICHAEL PRX 83 multiphasic + + + + MICHAEL DST 88 multiphasic + + + + CUTTER BRAKE LINING DST 73 multiphasic + + + + KOURTNEY DST 91 multiphasic + + + + DPA 87 multiphasic + + + + + + + + LEFT Velocity cm/s Phasicity + + + + SOCIAL MEDIA COMMUNITY MANAGER PRX 153 multiphasic + + + + SOCIAL MEDIA COMMUNITY MANAGER DST 123 multiphasic + + + + PFA 112 multiphasic + + + + SFA PRX 121 multiphasic + + + + SFA PRX MID 144 multiphasic + + + + SFA MID 125 multiphasic + + + + SFA DST 113 multiphasic + + + + MICHAEL PRX 96 multiphasic + + + + MICHAEL DST 101 multiphasic + + + + CUTTER BRAKE LINING DST 76 multiphasic + + + + [...] 145 Index +-----+ +--------+ +-----+ 1.09 162 CUTTER BRAKE LINING 170 1.15 +-----+ +--------+ +-----+ 1.16 172 DPA 178 1.20 +-----+ +--------+ +-----+ Danilo Oseguera MD. [employer] Electronically signed on 02/07/2023 12:24:15 PM This study was performed and interpreted by a service accredited by theIntersocietal Accreditation Commission (IAC/Vascular),[email or web address].org/vascular Report generated by [employer]. Final Jacquelin RINCON US * CT CHEST WO (01/31/2023 1:25 PM FOUNDRY TECHNICIAN) Anatomical Region Laterality Modality CHEST, THORAX, HEART Computed To mography 01/31/2023 1:35 PM FOUNDRY TECHNICIAN Addenda Addendum by Eliseo Gutierrez MD on 02/03/2023 3:02 PM FOUNDRY TECHNICIAN For Patients: ??As a result of the [...] (Electronically Signed) ?? Narrative 01/31/2023 1:35 PM FOUNDRY TECHNICIAN For Patients: ??As a result of the [...] by Eliseo Gutierrez MD @ Jan ??2022 ??1:35PM (Electronically Signed) ?? Procedure Note Eliseo Gutierrez MD - 01/31/2023 For Patients: As a result of the Century Cures Act, medical imagingexams and procedure reports [...] Jan 31 2023 1:35PM (Electronically Signed) Jacquelin RINCON CT * US THYROID/PARATHYROID (01/31/2023 1:16 PM FOUNDRY TECHNICIAN) Anatomical Region Laterality Modality THYROID Ultrasound 01/31/2023 1:22 PM FOUNDRY TECHNICIAN Impressions 01/31/2023 1:22 PM FOUNDRY TECHNICIAN Similar morphology in size of right-sided thyroid nodule measuring 3.5 cm. Dictated by Eliseo Gutierrez MD @ Jan ??2022 ??1:22PM (Electronically Signed) ?? Narrative 01/31/2023 1:22 PM FOUNDRY TECHNICIAN For Patients: ??As a result of the [...] 11.0 thou/cu mm 01/17/2023 3:25 PM CDT [facility] RED BLOOD COUNT 3.47(L) 4.00 - 5.20 mil/cu mm 01/17/2023 3:25 PM CDT [facility] HEMOGLOBIN 11.3(L) 12.0 - 16.0 g/dL 01/17/2023 3:25 PM CDT [facility] HEMATOCRIT 34.3 33.0 - 51.0 % 01/17/2023 3:25 PM CDT [facility] MCV 99 80 - 100 fL 01/17/2023 3:25 PM CDT [facility] MCH 32.6 26.0 - 34.0 pg 01/17/2023 3:25 PM CDT [facility] MCHC 32.9 32.0 - 36.0 g/dL 01/17/2023 3:25 PM CDT [facility] RDW 14.6 11.5 - 15.5 % 01/17/2023 3:25 PM CDT [facility] PLATELET COUNT 359 140 - 440 thou/cu mm 01/17/2023 3:25 PM CDT [facility] MPV 8.8 6.5 - 11.0 fL 01/17/2023 3:25 PM CDT [facility] % NEUT 79.9 % 01/17/2023 3:25 PM CDT [facility] % LYMPH 13.3 % 01/17/2023 3:25 PM CDT [facility] % MONO 5.6 % 01/17/2023 3:25 PM CDT [facility] % EOS 0.6 % 01/17/2023 3:25 PM CDT [facility] % BASO 0.6 % 01/17/2023 3:25 PM CDT [facility] ABSOLUTE NEUTROPHILS 6.6 1.7 - 7.0 thou/cu mm 01/17/2023 3:25 PM CDT [facility] ABSOLUTE LYMPHOCYTES 1.1 0.9 - 2.9 thou/cu mm 01/17/2023 3:25 PM CDT [facility] ABSOLUTE MONOCYTES 0.5 <0.9 thou/cu mm 01/17/2023 3:25 PM CDT [facility] ABSOLUTE EOSINOPHILS 0.1 <0.5 thou/cu mm 01/17/2023 3:25 PM CDT [facility] ABSOLUTE BASOPHILS 0.1 <0.3 thou/cu mm 01/17/2023 3:25 PM CDT [facility] Blood BLOOD SPECIMEN / Unknown Venipuncture / Unknown 01/17/2023 3:17 PM CDT 01/17/2023 3:18 PM CDT Jacquelin RINCON HEMATOLOGY Performing Organization Address City/[facility]/ZIP Co de Phone Number [facility] [address] [place] [address], [place] [phone] * HEMOGLOBIN A1C SCREENING (01/17/2023 3:17 PM CDT) HEMOGLOBIN A1C SCREENING 5.9 <=6.4 % 01/18/2023 6:46 AM CDT [facility] Blood BLOOD SPECIMEN / Unknown Venipuncture / Unknown 01/17/2023 3:17 PM CDT 01/17/2023 3:18 PM CDT Narrative [facility] - 01/18/2023 6:46 AM CDT ? (<5.7%) ?Normal ? (5.7% to 6.4%) ? Indicates prediabetes ? (>=6.5%) ? Confirms diabetes Falsely low levels may be seen with: Recent Transfusion, Recent Significant Blood Loss, Hemolytic Diseases, or Falsely elevated levels may be seen with: Untreated Anemias, Splenectomy Jacquelin RINCON CHEMISTRY [facility] [address] [place] [address], [place] * (ABNORMAL) LIPID PANEL W REFLEX MEASURED LDL (01/17/2023 3:17 PM CDT) CHOLESTEROL,TOTAL 146 100 - 199 mg/dL 01/17/2023 10:21 PM CDT [facility] Comment: Cholesterol, Total Reference Ranges Desirable <200 mg/dL Borderline 200-239 mg/dL High >=240 mg/dL TRIGLYCERIDES 197(H) <150 mg/dL 01/17/2023 10:21 PM CDT [facility] HDL CHOLESTEROL 64 >40 mg/dL 10:21 PM CDT [facility] NON-HDL CHOLESTEROL 82 <145 mg/dl 01/17/2023 10:21 PM CDT [facility] CHOL/HDL RATIO 2.28 <4.50 01/17/2023 10:21 PM CDT [facility] LDL CHOLESTEROL 43 <=130 mg/dL 01/17/2023 10:21 PM CDT [facility] VLDL CHOLESTEROL 39(H) <=30 mg/dL 01/17/2023 10:21 PM CDT [facility] PROVIDER ORDERED STATUS RANDOM 01/17/2023 10:21 PM CDT [facility] Blood BLOOD SPECIMEN / Unknown Venipuncture / Unknown 01/17/2023 3:17 PM CDT 01/17/2023 3:18 PM CDT Jacquelin RINCON CHEMISTRY [facility] [address] [place] [address], * (ABNORMAL) TSH (01/17/2023 3:17 PM CDT) TSH 0.17(L) 0.27 - 4.20 uIU/mL 01/17/2023 10:21 PM CDT [facility] Blood BLOOD SPECIMEN / Unknown Venipuncture / Unknown 01/17/2023 3:17 PM CDT 01/17/2023 3:18 PM CDT Narrative [facility] - 01/17/2023 10:21 PM CDT In Adults, TSH values between 5.00 and 10.00 uIU/ml do not necessarily indicate the presence of Hypothyroidism. Correlation with clinical findings such as presence of goiter and/or Thyroperoxidase (TPO) Antibody may be helpful. For more information please refer to ISIDORO 2004; 291: 228-238. Jacquelin RINCON CHEMISTRY Performing Organization Address City/[facility]/ZIP Co de Phone Number [facility] [address] [place] [address], * T4,FREE (01/17/2023 3:17 PM CDT) T4,FREE 1.49 0.93 - 1.70 ng/dL 01/20/2023 1:21 AM CDT [facility] Blood BLOOD SPECIMEN / Unknown Venipuncture / Unknown 01/17/2023 3:17 PM CDT 01/17/2023 3:18 PM CDT Jacquelin RINCON CHEMISTRY Performing Organization Address [facility] Co de Phone Number [facility] [address] [place] [address], * (ABNORMAL) COMP METABOLIC PANEL (01/17/2023 3:17 PM CDT) SODIUM 139 136 - 145 mmol/L 01/17/2023 10:21 PM CDT [facility] POTASSIUM 4.4 3.5 - 5.1 mmol/L 01/17/2023 10:21 PM CDT [facility] CHLORIDE 102 98 - 107 mmol/L 01/17/2023 10:21 PM CDT [facility] CO2,TOTAL 25 22 - 29 mmol/L 01/17/2023 10:21 PM CDT [facility] ANION GAP 12 5 - 18 01/17/2023 10:21 PM CDT [facility] GLUCOSE 145(H) 70 - 99 mg/dL 01/17/2023 10:21 PM CDT [facility] CALCIUM 9.7 8.8 - 10.2 mg/dL 01/17/2023 10:21 PM CDT [facility] BUN 34(H) 8 - 23 mg/dL 01/17/2023 10:21 PM CDT [facility] CREATININE 1.33(H) 0.50 - 0.90 mg/dL 01/17/2023 10:21 PM CDT [facility] BUN/CREAT RATIO 26(H) 10 - 20 10:21 PM T [facility] eGFR 40(L) >90 mL/min/1.7 3m2 01/17/2023 10:21 PM T [facility] Comment:As of 2021, eG FR is calculated by the CKD-EPI creatinine equation without race adjustment. ??eGFR can be influenced by muscle mass, exercise, and diet. ??The reported eGFR is an estimation only and is only applicable if the renal function is stable. ALBUMIN 4.2 4.0 - 4.9 g/dL 01/17/2023 10:21 PM T [facility] PROTEIN,TOTAL 7.2 6.0 - 8.0 g/dL 01/17/2023 10:21 PM CDT [facility] BILIRUBIN,TOTAL 0.3 0.0 - 1.2 mg/dL 01/17/2023 10:21 PM T [facility] ALK PHOSPHATASE 79 35 - 104 IU/L 01/17/2023 10:21 PM T [facility] ALT (SGPT) 26 10 - 35 IU/L 01/17/2023 10:21 PM T [facility] AST (SGOT) 39(H) 10 - 35 IU/L 01/17/2023 10:21 PM T [facility] Blood BLOOD SPECIMEN / Unknown Venipuncture / Unknown 01/17/2023 3:17 PM CDT 01/17/2023 3:18 PM CDT Jacquelin RINCON CHEMISTRY [facility] [address] [place] [address], from Last 3 Months Advance Directives Documents on File Type Date Recorded Patient Respiratory Coordinator Expl anation POLST 07/14/2017 8:01 AM 01/12/2017 Power of Chemical Tester 07/14/2017 7:57 AM 01/06 Healthcare Directive 07/14/2017 7:57 AM Latest Code Status on File Code Status Date Activated Date Inactivated Comments Full Code 07/12/2017 7:10 AM 07/14/2017 4:57 PM Code Status History Code Status Date Activated Date Inactivated Comments Full Code 05/11/2016 10:33 AM 05/11/2016 7:12 PM Full Code 05/04/2016 7:01 AM 05/04/2016 3:07 PM Care Teams Chute Builder Relationship Specialty Start Date End Date Constanza Cardozo MD [address] [place] [address] PCP - General Family Practice 08/25/22 [place], [place]RISTIANNE Wang Residential Construction Instructor 07/13/17 Sharif Nunez MD [address] [facility] [address] [address] Rheumatology 10/08/21 Riley Camacho MD [address] [facility] [address] [address] Surgery - Urology 08/25/22
== END 2023-04-12 13:23 | disposition home or self-care (01) ==
LOC: WOUND 13:22
PROVIDERS: PCP Family Medicine; Visit Provider Surgery
DX: I87.2 Venous insufficiency (chronic) (peripheral) (principal); L97.822 Non-pressure chronic ulcer of other part of left lower leg with fat layer exposed
CPT/HCPCS: 97597

== ENCOUNTER 2023-04-19 14:12 | Outpatient (CLI) | payer MEDICARE, BC, SELFPAY ==
--- OUTSIDE RECORDS SUMMARY | 2023-04-19 14:15 | XMS_ITS | Clinical Summary ---
Author Name Unknown Organization [facility] Address [place], [place] [address] Care Team Providers Care Gate Person Name Role Phone Claudia Betojanny FAUST Unavailable [phone] Sharif Nunez MD Unavailable [phone] Riley Camacho MD Unavailable [phone] Constanza Cardozo MD Primary Care Provider [phone] Allergies Active Allergy Reactions Criticality Noted Date [...] weekly d/t ckd - Endo E-consult at [facility] 10/09/2020 with recommendation to continue fosamax for [...] She has hearing aids ([facility] in [place]). Obesity with body mass index 30 or greater 12/21 Arthritis, rheumatoid 08/17/2017 Overview: RA Sees Dr. Nunez at [facility] [phone] fax [phone] Last Assessment & Plan: I went over [...] & Plan: She is here today because [facility] will not supply her with 6 catheters /day. They told her that medicare would only cover 4 catheters/day. She only has 10 catheters left and needs a supply. I contacted Verónica Escalante NP [facility]. She sees her on a routine basis. She will provide Vanessa with enough catheters to get by until her order from [facility] is delivered. She will drive to [place] to clam picker the catheters. I had sent Dr. Lopez's order and visit note to [facility] in [place]. Renay Renee will process the order and [...] Department Care Team Description 02/10/2023 2:50 PM RENEWABLE ENERGY TRADER Office Visit [facility] [address] [place] [address] Jacquelin Cifuentes PA Follow Up (Cellulitis of leg) 02/10/2023 Travel 02/07/2023 Orders Only [facility] [address] [facility] [address] Jacquelin Cifuentes PA <No scans attached> 02/06/2023 8:45 AM RENEWABLE ENERGY TRADER Orders Only [facility] [address] [facility] [place] [place] [address] 1 scan: (1-Ord) US ARTERIAL LOWER EXTREMITY W JANINA BILATERAL ([id number]) 02/06/2023 Telephone [facility] [address] [facility] [address] Meena Kumari MD Results (imaging) 02/06/2023 Travel 01/31/2023 2:00 PM RENEWABLE ENERGY TRADER Ancillary Procedure [facility] [address] [place] [address] 01/31/2023 1:00 PM RENEWABLE ENERGY TRADER Ancillary Procedure [facility] [address] [place] [address] 01/31/2023 Travel 01/18/2023 Telephone [facility] [address] [place] [address] Jacquelin Cifuentes PA Medication Management (CEPHALEXIN) 01/18/2023 Telephone [facility] [address] [place] [address] Meena Kumari MD Testing (Needs 1 year follow up thyroid ultrasound) 01/17/2023 2:30 PM CDT Office Visit [facility] [address] [place] [address] Jacquelin Cifuentes PA Medicare ANNUAL (subsequent) Visit 01/17/2023 Travel from Last 3 Months Immunizations Name Administration Dates Next Due COVID-19 vaccine (Moderna 100mcg/0.5mL) BALDEV MDV 08/25/2021,02/23/2021,08/03/2020,2020 COVID-19 vaccine (Pfizer-Bio NTech 30mcg/0.3mL) [...] Comments Blood Pressure 188/73 02/10/2023 2:39 PM RENEWABLE ENERGY TRADER Pulse 98 02/10/2023 2:39 PM RENEWABLE ENERGY TRADER Temperature 37.2 ??C (98.9 ??F) 12/02/2021 11:04 AM C DT Respiratory Rate 20 07/14/2017 8:00 AM CDT Oxygen Saturation 98% 02/10/2023 2:39 PM RENEWABLE ENERGY TRADER Inhaled Oxygen Concentration - - Weight 62.6 kg (138 lb) 02/10/2023 2:39 PM RENEWABLE ENERGY TRADER Height 154.9 cm (5' 1) 01/17/2023 2:28 PM CDT Body Mass Index 26.07 01/17/2023 2:28 PM CDT Plan of Treatment Upcoming Encounters Date Type Department Care Team (Late st Contact Info) Description 05/01/2023 1:00 PM RENEWABLE ENERGY TRADER Office Visit [facility] [address] [place] [phone] Eliseo Dias MD [address] [place] [address] Health Maintenance Due Date Last Done Comments Zoster (shingles) series for age 50+ (1 of 2) 12/04/1959 COVID-19 vaccine series (2022- season) 2022 01/04/2022, 08/25/2021, 02/23/2021, Additional history [...] Patient Record) Medical Devices Implanted Type Area Cloth Booker Device Identifier Shelf Expiration Date Model / Serial / Lot Lead Bladder 28cm Interstim Tined 3mm Spacing - [id number] Implanted:Qty: 1 on 05/04/2016 by Cesar Groves MD at [facility] N/A: Sacrum [employer] 04/25/2020 3889-28# / / [id number] Stimulator 7.7mm 14cc Interstim Ii - [id number] Implanted:Qty: 1 on 05/11/2016 by Cesar Groves MD at [facility] N/A: Sacrum [employer] 10/07/2017 3058# / / [id number] Cmnt Bone 40g Simplex P Non Atb Mv - [id number] Implanted:Qty: 2 on 07/12/2017 by Ignacio Mead MD at [facility] Right: Knee [facility] [employer] 04/26/2018 6191-1-010 # / / [id number] Cmnt Bone 40g Simplex P Non Atb Mv - [id number] Implanted:Qty: 1 on 07/12/2017 by Ignacio Mead MD at [facility] Right: Knee [employer] 04/26/2018 6191-1-010 # / / [id number] Q4832-A-966 - [id number] Implanted:Qty: 1 on 07/12/2017 by Ignacio Mead MD at [facility] Right: Knee [employer] 04/27/2022 5551-G-350 / / [id number] Description:Triathlon X3 Asy mmetric patella G8741-T-207 - [id number] Implanted:Qty: 1 on 07/12/2017 by Ignacio Mead MD at [facility] Right: Knee [employer] 03/11/2022 5520-B-500 / / [id number] Description:Triathlon primar y tibial baseplate R1502-B-358 - [id number] Implanted:Qty: 1 on 07/12/2017 by Ignacio Mead MD at [facility] Right: Knee [facility] 05/21/2021 5510-F-502 / / [id number] Description:Triathlon crucia te retaining femoral C5132-I-608 - [id number] Implanted:Qty: 1 on 07/12/2017 by Ignacio Mead MD at [facility] Right: Knee 5531-G-50 9 / / [id number] Description:X3 triathlon CS INS Explanted Type Area Cloth Booker Device Identifier Shelf Expiration Date Model / Serial / Lot Lead Intrdcr Bladder Interstim - [id number] Explanted:Qty: 1 on 05/04/2016 by Cesar Groves MD at [facility] N/A: Sacrum [employer] Pain Therapy 05/27/2017 3550-18# / / [id number] Procedures Procedure Name Priority Date/Time Associated Diagnosis Comments US ARTERIAL LOWER EXTREMITY W JANINA BILATERAL Routine 02/06/2023 9:41 AM RENEWABLE ENERGY TRADER Left leg cellulitis CT CHEST WO Routine 01/31/2023 1:25 PM RENEWABLE ENERGY TRADER Mass of middle lobe of right lung US THYROID/PARATHYROID Routine 01/31/2023 1:16 PM RENEWABLE ENERGY TRADER Thyroid nodule T4,FREE Add On 01/17/2023 3:17 [...] EXTREMITY W JANINA BILATERAL (02/06/2023 9:41 AM RENEWABLE ENERGY TRADER) Anatomical Region Laterality Modality LEGS Ultrasound 02/06/2023 8:44 AM RENEWABLE ENERGY TRADER Narrative 02/07/2023 12:24 PM RENEWABLE ENERGY TRADER VASCULAR ULTRASOUND REPORT VANESSA SINHA Accession#: ?? [id number] : ?1940 ??Study Date: ?? 02/06/2023 8:44:27 AM Age: ?82 years ?? Tech: ? BSG Gender: F ?Referring MD: JACQUELIN CIFUENTES Site: [facility] Study performed: ?Lower extremity duplex US, resting [...] cm/s Phasicity ?? + + + + NATURAL RESOURCES SPECIALIST PRX ? 155 ? multiphasic + + + + NATURAL RESOURCES SPECIALIST DST ? 112 ? multiphasic + + [...] 88 ? multiphasic + + + + FINANCE LECTURER DST ? 73 ? multiphasic + + + + KOURTNEY DST ? 91 ? multiphasic + + + + DPA ? 87 ? multiphasic + + + + + + + + LEFT ? Velocity cm/s Phasicity ?? + + + + NATURAL RESOURCES SPECIALIST PRX ? 153 ? multiphasic + + + + NATURAL RESOURCES SPECIALIST DST ? 123 ? multiphasic + + [...] 101 ? multiphasic + + + + FINANCE LECTURER DST ? 76 ? multiphasic + + [...] ? Index +-----+ +--------+ +-----+ 1.09 ?162 ?FINANCE LECTURER ?170 ? 1.15 +-----+ +--------+ +-----+ 1.16 ?172 ?DPA ?178 ? 1.20 +-----+ +--------+ +-----+ Danilo Oseguera MD. [employer] Electronically signed on 02/07/2023 12:24:15 PM This study was performed and interpreted by a service accredited by the Intersocietal Accreditation Commission (IAC/Vascular), [email or web address].org/vascular Report generated by [employer]. ??Final ?? Procedure Note Danilo Oseguera MD - 02/07/2023 VASCULAR ULTRASOUND REPORT VANESSA SINHA : 1940 Study Date: 02/06/2023 8:44:27 AM Age: 82 years Tech: BSG Gender: F Referring MD: JACQUELIN CIFUENTES Site: [facility] Study performed: Lower extremity duplex US, resting [...] Velocity cm/s Phasicity + + + + NATURAL RESOURCES SPECIALIST PRX 155 multiphasic + + + + NATURAL RESOURCES SPECIALIST DST 112 multiphasic + + + + PFA 91 multiphasic + + + + SFA PRX 130 multiphasic + + + + SFA PRX MID 121 multiphasic + + + + SFA MID 110 multiphasic + + + + SFA DST 92 multiphasic + + + + MICHAEL PRX 83 multiphasic + + + + MICHAEL DST 88 multiphasic + + + + FINANCE LECTURER DST 73 multiphasic + + + + KOURTNEY DST 91 multiphasic + + + + DPA 87 multiphasic + + + + + + + + LEFT Velocity cm/s Phasicity + + + + NATURAL RESOURCES SPECIALIST PRX 153 multiphasic + + + + NATURAL RESOURCES SPECIALIST DST 123 multiphasic + + + + PFA 112 multiphasic + + + + SFA PRX 121 multiphasic + + + + SFA PRX MID 144 multiphasic + + + + SFA MID 125 multiphasic + + + + SFA DST 113 multiphasic + + + + MICHAEL PRX 96 multiphasic + + + + MICHAEL DST 101 multiphasic + + + + FINANCE LECTURER DST 76 multiphasic + + + + [...] 145 Index +-----+ +--------+ +-----+ 1.09 162 FINANCE LECTURER 170 1.15 +-----+ +--------+ +-----+ 1.16 172 DPA 178 1.20 +-----+ +--------+ +-----+ Danilo Oseguera MD. [employer] Electronically signed on 02/07/2023 12:24:15 PM This study was performed and interpreted by a service accredited by theIntersocietal Accreditation Commission (IAC/Vascular),[email or web address]/vascular Report generated by [employer]. Final Jacquelin RINCON US * CT CHEST WO (01/31/2023 1:25 PM RENEWABLE ENERGY TRADER) Anatomical Region Laterality Modality CHEST, THORAX, HEART Computed To mography 01/31/2023 1:35 PM RENEWABLE ENERGY TRADER Addenda Addendum by Eliseo Gutierrez MD on 02/03/2023 3:02 PM RENEWABLE ENERGY TRADER For Patients: ??As a result of the [...] (Electronically Signed) ?? Narrative 01/31/2023 1:35 PM RENEWABLE ENERGY TRADER For Patients: ??As a result of the [...] CT * US THYROID/PARATHYROID (01/31/2023 1:16 PM RENEWABLE ENERGY TRADER) Anatomical Region Laterality Modality THYROID Ultrasound 01/31/2023 1:22 PM RENEWABLE ENERGY TRADER Impressions 01/31/2023 1:22 PM RENEWABLE ENERGY TRADER Similar morphology in size of right-sided thyroid nodule measuring 3.5 cm. Dictated by Eliseo Gutierrez MD @ Jan ?2022 ??1:22PM (Electronically Signed) ?? Narrative 01/31/2023 1:22 PM RENEWABLE ENERGY TRADER For Patients: ??As a result of the [...] 11.0 thou/cu mm 01/17/2023 3:25 PM CDT [facility] RED BLOOD COUNT 3.47(L) 4.00 - 5.20 mil/cu mm 01/17/2023 3:25 PM CDT [facility] HEMOGLOBIN 11.3(L) 12.0 - 16.0 g/dL 01/17/2023 3:25 PM CDT [facility] HEMATOCRIT 34.3 33.0 - 51.0 % 01/17/2023 3:25 PM CDT [facility] MCV 99 80 - 100 fL 01/17/2023 3:25 PM CDT [facility] MCH 32.6 26.0 - 34.0 pg 01/17/2023 3:25 PM CDT [facility] MCHC 32.9 32.0 - 36.0 g/dL 01/17/2023 3:25 PM CDT [facility] RDW 14.6 11.5 - 15.5 % 01/17/2023 3:25 PM CDT [facility] PLATELET COUNT 359 140 - 440 thou/cu mm 01/17/2023 3:25 PM CDT [facility] MPV 8.8 6.5 - 11.0 fL 01/17/2023 3:25 PM CDT [facility] % NEUT 79.9 % 01/17/2023 3:25 PM CDT [facility] % LYMPH 13.3 % 01/17/2023 3:25 PM CDT [facility] % MONO 5.6 % 01/17/2023 3:25 PM CDT [facility] % EOS 0.6 % 01/17/2023 3:25 PM CDT [facility] % BASO 0.6 % 01/17/2023 3:25 PM CDT [facility] ABSOLUTE NEUTROPHILS 6.6 1.7 - 7.0 thou/cu mm 01/17/2023 3:25 PM CDT [facility] ABSOLUTE LYMPHOCYTES 1.1 0.9 - 2.9 thou/cu mm 01/17/2023 3:25 PM CDT [facility] ABSOLUTE MONOCYTES 0.5 <0.9 thou/cu mm 01/17/2023 3:25 PM CDT [facility] ABSOLUTE EOSINOPHILS 0.1 <0.5 thou/cu mm 01/17/2023 3:25 PM CDT [facility] ABSOLUTE BASOPHILS 0.1 <0.3 thou/cu mm 01/17/2023 3:25 PM CDT [facility] Blood BLOOD SPECIMEN / Unknown Venipuncture / Unknown 01/17/2023 3:17 PM CDT 01/17/2023 3:18 PM CDT Jacquelin RINCON HEMATOLOGY Performing Organization Address City/[facility]/ZIP Co de Phone Number [facility] [address] [place] [address], [place] [phone] * HEMOGLOBIN A1C SCREENING (01/17/2023 3:17 PM CDT) HEMOGLOBIN A1C SCREENING 5.9 <=6.4 % 01/18/2023 6:46 AM CDT [facility] Blood BLOOD SPECIMEN / Unknown Venipuncture / Unknown 01/17/2023 3:17 PM CDT 01/17/2023 3:18 PM CDT Narrative [facility] - 01/18/2023 6:46 AM CDT ? (<5.7%) ?Normal ? (5.7% to 6.4%) ? Indicates prediabetes ? (>=6.5%) ? Confirms diabetes Falsely low levels may be seen with: Recent Transfusion, Recent Significant Blood Loss, Hemolytic Diseases, or Falsely elevated levels may be seen with: Untreated Anemias, Splenectomy Jacquelin RINCON CHEMISTRY Performing Organization Address City/[facility]/ZIP Co de Phone Number [facility] [address] [place] [address], [place] * (ABNORMAL) LIPID PANEL W REFLEX MEASURED LDL (01/17/2023 3:17 PM CDT) CHOLESTEROL,TOTAL 146 100 - 199 mg/dL 01/17/2023 10:21 PM CDT [facility] Comment: Cholesterol, Total Reference Ranges Desirable <200 mg/dL Borderline 200-239 mg/dL High >=240 mg/dL TRIGLYCERIDES 197(H) <150 mg/dL 01/17/2023 10:21 PM CDT [facility] HDL CHOLESTEROL 64 >40 mg/dL 10:21 PM CDT [facility] NON-HDL CHOLESTEROL 82 <145 mg/dl 01/17/2023 10:21 PM CDT [facility] CHOL/HDL RATIO 2.28 <4.50 01/17/2023 10:21 PM CDT [facility] LDL CHOLESTEROL 43 <=130 mg/dL 01/17/2023 10:21 PM CDT [facility] VLDL CHOLESTEROL 39(H) <=30 mg/dL 01/17/2023 10:21 PM CDT [facility] PROVIDER ORDERED STATUS RANDOM 01/17/2023 10:21 PM CDT [facility] Blood BLOOD SPECIMEN / Unknown Venipuncture / Unknown 01/17/2023 3:17 PM CDT 01/17/2023 3:18 PM CDT Jacquelin RINCON CHEMISTRY [facility] [address] [place] [address], * (ABNORMAL) TSH (01/17/2023 3:17 PM CDT) TSH 0.17(L) 0.27 - 4.20 uIU/mL 01/17/2023 10:21 PM CDT [facility] Blood BLOOD SPECIMEN / Unknown Venipuncture / Unknown 01/17/2023 3:17 PM CDT 01/17/2023 3:18 PM CDT Narrative [facility] - 01/17/2023 10:21 PM CDT In Adults, TSH values between 5.00 and 10.00 uIU/ml do not necessarily indicate the presence of Hypothyroidism. Correlation with clinical findings such as presence of goiter and/or Thyroperoxidase (TPO) Antibody may be helpful. For more information please refer to ISIDORO 2004; 291: [phone]. Jacquelin RINCON CHEMISTRY Performing Organization Address City/[facility]/ZIP Co de Phone Number [facility] [address] [place] [address], * T4,FREE (01/17/2023 3:17 PM CDT) T4,FREE 1.49 0.93 - 1.70 ng/dL 01/20/2023 1:21 AM CDT [facility] Blood BLOOD SPECIMEN / Unknown Venipuncture / Unknown 01/17/2023 3:17 PM CDT 01/17/2023 3:18 PM CDT Jacquelin RINCON CHEMISTRY Performing Organization Address [facility] Co de Phone Number [facility] [address] * (ABNORMAL) COMP METABOLIC PANEL (01/17/2023 3:17 PM CDT) SODIUM 139 136 - 145 mmol/L 01/17/2023 10:21 PM CDT [facility] POTASSIUM 4.4 3.5 - 5.1 mmol/L 01/17/2023 10:21 PM CDT [facility] CHLORIDE 102 98 - 107 mmol/L 01/17/2023 10:21 PM CDT [facility] CO2,TOTAL 25 22 - 29 mmol/L 01/17/2023 10:21 PM CDT [facility] ANION GAP 12 5 - 18 01/17/2023 10:21 PM CDT [facility] GLUCOSE 145(H) 70 - 99 mg/dL 01/17/2023 10:21 PM CDT [facility] CALCIUM 9.7 8.8 - 10.2 mg/dL 01/17/2023 10:21 PM CDT [facility] BUN 34(H) 8 - 23 mg/dL 01/17/2023 10:21 PM CDT [facility] CREATININE 1.33(H) 0.50 - 0.90 mg/dL 01/17/2023 10:21 PM CDT [facility] BUN/CREAT RATIO 26(H) 10 - 20 10:21 PM CDT [facility] eGFR 40(L) >90 mL/min/1.7 3m2 01/17/2023 10:21 PM CDT [facility] Comment:As of 2021, eG FR is calculated by the CKD-EPI creatinine equation without race adjustment. ??eGFR can be influenced by muscle mass, exercise, and diet. ??The reported eGFR is an estimation only and is only applicable if the renal function is stable. ALBUMIN 4.2 4.0 - 4.9 g/dL 01/17/2023 10:21 PM CDT [facility] PROTEIN,TOTAL 7.2 6.0 - 8.0 g/dL 01/17/2023 10:21 PM CDT [facility] BILIRUBIN,TOTAL 0.3 0.0 - 1.2 mg/dL 01/17/2023 10:21 PM CDT [facility] ALK PHOSPHATASE 79 35 - 104 IU/L 01/17/2023 10:21 PM CDT [facility] ALT (SGPT) 26 10 - 35 IU/L 01/17/2023 10:21 PM CDT [facility] AST (SGOT) 39(H) 10 - 35 IU/L 01/17/2023 10:21 PM CDT [facility] Blood BLOOD SPECIMEN / Unknown Venipuncture / Unknown 01/17/2023 3:17 PM CDT 01/17/2023 3:18 PM CDT Jacquelin RINCON CHEMISTRY [facility] 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 POLST 07/14/2017 8:01 AM 01/12/2017 Power of Fitter Tacker 07/14/2017 7:57 AM 01/06 Healthcare Directive 07/14/2017 7:57 AM Latest Code Status on File Code Status Date Activated Date Inactivated Comments Full Code 07/12/2017 7:10 AM 07/14/2017 4:57 PM Code Status History Code Status Date Activated Date Inactivated Comments Full Code 05/11/2016 10:33 AM 05/11/2016 7:12 PM Full Code 05/04/2016 7:01 AM 05/04/2016 3:07 PM Care Teams Gate Person Relationship Specialty Start Date End Date Constanza Cardozo MD [address] [place] [address] PCP - General Family Practice 08/25/22 Beto Taylor LSW Rn Informatics 07/13/17 Sharif Nunez MD [address] [facility] [address] [place] [address] Rheumatology 10/08/21 Riley Camacho MD [address] [facility] [place] [address] Surgery - Urology 08/25/22
== END 2023-04-19 14:13 | disposition home or self-care (01) ==
LOC: WOUND 14:12
PROVIDERS: PCP Family Medicine; Visit Provider Surgery
DX: I87.2 Venous insufficiency (chronic) (peripheral) (principal); L97.822 Non-pressure chronic ulcer of other part of left lower leg with fat layer exposed
CPT/HCPCS: 11042

== ENCOUNTER 2023-04-26 14:14 | Outpatient (CLI) | payer MEDICARE, BC, SELFPAY ==
--- OUTSIDE RECORDS SUMMARY | 2023-04-26 14:20 | XMS_ITS | Clinical Summary ---
Author Name Unknown Organization [facility] Address [place], [place] [address] Care Team Providers Care Sawdust Machine Operator Name Role Phone Claudia Betojanny FAUST Unavailable [phone] Sharif Nunez MD Unavailable + [phone] Riley Camacho MD Unavailable [phone] Constanza Cardozo MD Primary Care Provider [phone] Allergies Active Allergy Reactions Criticality Noted Date [...] by mouth once daily. 0 01/11/2010 Active multivitamin-worker's compensation claims examiner als therapeutic tablet Take 1 tablet [...] weekly d/t ckd - Endo E-consult at [place] 10/09/2020 with recommendation to continue fosamax for [...] She has hearing aids ([facility] in [place]). Obesity with body mass index 30 or greater 12/21 Arthritis, rheumatoid 08/17/2017 Overview: RA Sees Dr. Nunez at [facility] [phone] fax [phone] Last Assessment & Plan: I went over [...] & Plan: She is here today because [email or web address] will not supply her with 6 catheters /day. They told her that medicare would only cover 4 catheters/day. She only has 10 catheters left and needs a supply. I contacted Verónica Escalante NP [place] [facility]. She sees her on a routine basis. She will provide Vanessa with enough catheters to get by until her order from [facility] is delivered. She will drive to [place] to nut picker the catheters. I had sent Dr. Lopez's order and visit note to [facility] in [place]. Renay Renee will process the order and [...] Department Care Team Description 02/10/2023 2:50 PM CARAMEL CUTTER HAND Office Visit [facility] [address] [place] [address] Jacquelin Cifuentes PA Follow Up (Cellulitis of leg) 02/10/2023 Travel 02/07/2023 Orders Only [facility] [address] [place] [address] Jacquelin Cifuentes PA <No scans attached> 02/06/2023 8:45 AM CARAMEL CUTTER HAND Orders Only [facility] [address] [facility] [address] 1 scan: (1-Ord) US ARTERIAL LOWER EXTREMITY W JANINA BILATERAL ([id number]) 02/06/2023 Telephone [facility] [address] [facility] [address] Meena Kumari MD Results (imaging) 02/06/2023 Travel 01/31/2023 2:00 PM CARAMEL CUTTER HAND Ancillary Procedure [facility] [address] [place] [address] 01/31/2023 1:00 PM CARAMEL CUTTER HAND Ancillary Procedure [facility] [address] [facility] [address] 01/31/2023 Travel from Last 3 Months Immunizations Name [...] Comments Blood Pressure 188/73 02/10/2023 2:39 PM CARAMEL CUTTER HAND Pulse 98 02/10/2023 2:39 PM CARAMEL CUTTER HAND Temperature 37.2 ??C (98.9 ??F) 12/02/2021 11:04 AM C DT Respiratory Rate 20 07/14/2017 8:00 AM CDT Oxygen Saturation 98% 02/10/2023 2:39 PM CARAMEL CUTTER HAND Inhaled Oxygen Concentration - - Weight 62.6 kg (138 lb) 02/10/2023 2:39 PM CARAMEL CUTTER HAND Height 154.9 cm (5' 1) 01/17/2023 2:28 PM CDT Body Mass Index 26.07 01/17/2023 2:28 PM CDT Plan of Treatment Upcoming Encounters Date Type Department Care Team (Late st Contact Info) Description 05/01/2023 1:00 PM CARAMEL CUTTER HAND Office Visit [facility] [address] [facility] [address] [place] [phone] Eliseo Dias MD [address] [facility] [address] [place] [address] Health Maintenance Due Date Last Done Comments [...] Patient Record) Medical Devices Implanted Type Area Hotel Front Desk Agent Device Identifier Shelf Expiration Date Model / Serial / Lot Lead Bladder 28cm Interstim Tined 3mm Spacing - [id number] Implanted:Qty: 1 on 05/04/2016 by Cesar Groves MD at [facility] N/A: Sacrum Medtronic Pain Therapy 04/25/2020 3889-28# / / [id number] Stimulator 7.7mm 14cc Interstim Ii - [id number] Implanted:Qty: 1 on 05/11/2016 by Cesar Groves MD at [facility] N/A: Sacrum Medtronic Pain Therapy 10/07/2017 3058# / / [id number] Cmnt Bone 40g Simplex P Non Atb Mv - [id number] Implanted:Qty: 2 on 07/12/2017 by Ignacio Mead MD at [facility] Right: Knee [facility] 04/26/2018 6191-1-010 # / / [id number] Cmnt Bone 40g Simplex P Non Atb Mv - [id number] Implanted:Qty: 1 on 07/12/2017 by Ignacio Mead MD at [facility] Right: Knee [facility] 04/26/2018 6191-1-010 # / / [id number] M1425-P-469 - [id number] Implanted:Qty: 1 on 07/12/2017 by Ignacio Mead MD at [facility] Right: Knee [facility] 04/27/2022 5551-G-350 / / [id number] Description:Triathlon X3 Asy mmetric patella J8343-R-141 - [id number] Implanted:Qty: 1 on 07/12/2017 by Ignacio Mead MD at [facility] Right: Knee [facility] 03/11/2022 5520-B-500 / / [id number] Description:Triathlon primar y tibial baseplate N1075-Z-808 - [id number] Implanted:Qty: 1 on 07/12/2017 by Ignacio Mead MD at [facility] Right: Knee [facility] 05/21/2021 5510-F-502 / / [id number] Description:Triathlon crucia te retaining femoral K3618-Y-378 - [id number] Implanted:Qty: 1 on 07/12/2017 by Ignacio Mead MD at [facility] Right: Knee 5531-G-50 9 / / [id number] Description:X3 triathlon CS INS Explanted Type Area Hotel Front Desk Agent Device Identifier Shelf Expiration Date Model / Serial / Lot Lead Intrdcr Bladder Interstim - [id number] Explanted:Qty: 1 on 05/04/2016 by Cesar Groves MD at [facility] N/A: Sacrum Medtronic Pain Therapy 05/27/2017 3550-18# / / [id number] Procedures Procedure Name Priority Date/Time Associated Diagnosis Comments US ARTERIAL LOWER EXTREMITY W JANINA BILATERAL Routine 02/06/2023 9:41 AM CARAMEL CUTTER HAND Left leg cellulitis CT CHEST WO Routine 01/31/2023 1:25 PM CARAMEL CUTTER HAND Mass of middle lobe of right lung US THYROID/PARATHYROID Routine 01/31/2023 1:16 PM CARAMEL CUTTER HAND Thyroid nodule from Last 3 Months Results * US ARTERIAL LOWER EXTREMITY W JANINA BILATERAL (02/06/2023 9:41 AM CARAMEL CUTTER HAND) Anatomical Region Laterality Modality LEGS Ultrasound 02/06/2023 8:44 AM CARAMEL CUTTER HAND Narrative 02/07/2023 12:24 PM CARAMEL CUTTER HAND VASCULAR ULTRASOUND REPORT VANESSA ANDINO Accession#: ?? [id number] : ?[id number] ??Study Date: ?? 02/06/2023 8:44:27 AM Age: ?82 years ?? Tech: ? BSG Gender: F ?Referring MD: JACQUELIN CIFUENTES Site: [facility] Study performed: ?Lower extremity duplex US, [...] cm/s Phasicity ?? + + + + EARLY BREASTFEEDING CARE SPECIALIST PRX ? 155 ? multiphasic + + + + EARLY BREASTFEEDING CARE SPECIALIST DST ? 112 ? multiphasic + [...] 88 ? multiphasic + + + + VENDOR MANAGEMENT CONSULTANT DST ? 73 ? multiphasic + + + + KOURTNEY DST ? 91 ? multiphasic + + + + DPA ? 87 ? multiphasic + + + + + + + + LEFT ? Velocity cm/s Phasicity ?? + + + + EARLY BREASTFEEDING CARE SPECIALIST PRX ? 153 ? multiphasic + + + + EARLY BREASTFEEDING CARE SPECIALIST DST ? 123 ? multiphasic + [...] 101 ? multiphasic + + + + VENDOR MANAGEMENT CONSULTANT DST ? 76 ? multiphasic + + [...] ? Index +-----+ +--------+ +-----+ 1.09 ?162 ?VENDOR MANAGEMENT CONSULTANT ?170 ? 1.15 +-----+ +--------+ +-----+ 1.16 ?172 ?DPA ?178 ? 1.20 +-----+ +--------+ +-----+ Danilo Oseguera MD. [facility] Electronically signed on 02/07/2023 12:24:15 PM This study was performed and interpreted by a service accredited by the Intersocietal Accreditation Commission (IAC/Vascular), www.intersocietal.org/vascular Report generated by [employer]. ??Final ?? Procedure Note Danilo Oseguera MD - 02/07/2023 VASCULAR ULTRASOUND REPORT VANESSA ANDINO : 1940 Study Date: 02/06/2023 8:44:27 AM Age: 82 years Tech: BSG Gender: F Referring MD: JACQUELIN CIFUENTES Site: [facility] Study performed: Lower extremity duplex US, [...] Velocity cm/s Phasicity + + + + EARLY BREASTFEEDING CARE SPECIALIST PRX 155 multiphasic + + + + EARLY BREASTFEEDING CARE SPECIALIST DST 112 multiphasic + + + [...] DST 88 multiphasic + + + + VENDOR MANAGEMENT CONSULTANT DST 73 multiphasic + + + + KOURTNEY DST 91 multiphasic + + + + DPA 87 multiphasic + + + + + + + + LEFT Velocity cm/s Phasicity + + + + EARLY BREASTFEEDING CARE SPECIALIST PRX 153 multiphasic + + + + EARLY BREASTFEEDING CARE SPECIALIST DST 123 multiphasic + + + [...] DST 101 multiphasic + + + + VENDOR MANAGEMENT CONSULTANT DST 76 multiphasic + + + + [...] 145 Index +-----+ +--------+ +-----+ 1.09 162 VENDOR MANAGEMENT CONSULTANT 170 1.15 +-----+ +--------+ +-----+ 1.16 172 DPA 178 1.20 +-----+ +--------+ +-----+ Danilo Oseguera MD. [facility] Electronically signed on 02/07/2023 12:24:15 PM This study was performed and interpreted by a service accredited by theIntersocietal Accreditation Commission (IAC/Vascular),[email or web address]/vascular Report generated by [employer]. Final Jacquelin RINCON US * CT CHEST WO (01/31/2023 1:25 PM CARAMEL CUTTER HAND) Anatomical Region Laterality Modality CHEST, THORAX, HEART Computed To mography 01/31/2023 1:35 PM CARAMEL CUTTER HAND Addenda Addendum by Eliseo Gutierrez MD on 02/03/2023 3:02 PM CARAMEL CUTTER HAND For Patients: ??As a result of the [...] (Electronically Signed) ?? Narrative 01/31/2023 1:35 PM CARAMEL CUTTER HAND For Patients: ??As a result of the [...] CT * US THYROID/PARATHYROID (01/31/2023 1:16 PM CARAMEL CUTTER HAND) Anatomical Region Laterality Modality THYROID Ultrasound 01/31/2023 1:22 PM CARAMEL CUTTER HAND Impressions 01/31/2023 1:22 PM CARAMEL CUTTER HAND Similar morphology in size of right-sided thyroid nodule measuring 3.5 cm. Dictated by Eliseo Gutierrez MD @ Nov ??2022 ??1:22PM (Electronically Signed) ?? Narrative 01/31/2023 1:22 PM CARAMEL CUTTER HAND For Patients: ??As a result of the [...] 1:22PM (Electronically Signed) Meena Kumari MD US from Last 3 Months Advance Directives Documents on File Type Date Recorded Patient Matchbook Maker Expl anation POLST 07/14/2017 8:01 AM 01/12/2017 Power of Clerical Warehouseman 07/14/2017 7:57 AM 01/06 Healthcare Directive 07/14/2017 7:57 AM Latest Code Status on File Code Status Date Activated Date Inactivated Comments Full Code 07/12/2017 7:10 AM 07/14/2017 4:57 PM Code Status History Code Status Date Activated Date Inactivated Comments Full Code 05/11/2016 10:33 AM 05/11/2016 7:12 PM Full Code 05/04/2016 7:01 AM 05/04/2016 3:07 PM Care Teams Sawdust Machine Operator Relationship Specialty Start Date End Date Constanza Cardozo MD [address] [facility] [address] PCP - General Family Practice 08/25/22 [place], CHRISTIANNE Wang Sales Property Manager 07/13/17 Sharif Nunez MD [address] [facility] [address] [address] Rheumatology 10/08/21 Riley Camacho MD [address] [facility] [address] [address] Surgery - Urology 08/25/22
== END 2023-04-26 14:15 | disposition home or self-care (01) ==
LOC: WOUND 14:14
PROVIDERS: PCP Family Medicine; Visit Provider Surgery
DX: I87.2 Venous insufficiency (chronic) (peripheral) (principal); L97.822 Non-pressure chronic ulcer of other part of left lower leg with fat layer exposed
CPT/HCPCS: 11042

== ENCOUNTER 2023-05-03 14:18 | Outpatient (CLI) | payer MEDICARE, BC, SELFPAY ==
--- OUTSIDE RECORDS SUMMARY | 2023-05-03 14:20 | XMS_ITS | Clinical Summary ---
Author Name Unknown Organization [facility] Address [place], [place] [address] Care Team Providers Care Strategic Marketing Manager Name Role Phone Claudia Betojanny FAUST Unavailable [phone] Sharif Nunez MD Unavailable [phone] Riley Camacho MD Unavailable [phone] Constanza Cardozo MD Primary Care Provider [phone] Allergies Active Allergy Reactions Criticality Noted Date [...] by mouth once daily. 0 01/11/2010 Active multivitamin-miner pick als therapeutic tablet Take 1 tablet by [...] weekly d/t ckd - Endo E-consult at [place] 10/09/2020 with recommendation to continue fosamax for [...] She has hearing aids ([facility] in [place]). Obesity with body mass index 30 or greater 12/21 Arthritis, rheumatoid 08/17/2017 Overview: RA Sees Dr. Nunez at [facility] [phone] fax [phone] Last Assessment & Plan: I went over [...] & Plan: She is here today because [facility] will not supply her with 6 catheters /day. They told her that medicare would only cover 4 catheters/day. She only has 10 catheters left and needs a supply. I contacted Verónica Escalante NP [place] [facility]. She sees her on a routine basis. She will provide Vanessa with enough catheters to get by until her order from [facility] is delivered. She will drive to [place] to picking machine operator the catheters. I had sent Dr. Lopez's order and visit note to [facility] in [place]. Renay Renee will process the order and [...] Encounters Date Type Department Care Team Description 05/01/2023 1:00 PM PIPELINE CONTROLLER Office Visit [facility] [address] [place] [phone] Eliseo Dias MD Consult (Lung nodule) 05/01/2023 Travel 02/10/2023 2:50 PM PIPELINE CONTROLLER Office Visit [facility] [address] [place] [address] Jacquelin Cifuentes PA Follow Up (Cellulitis of leg) 02/10/2023 Travel 02/07/2023 Orders Only [facility] [address] [facility] [place] [address] Jacquelin Cifuentes PA <No scans attached> 02/06/2023 8:45 AM PIPELINE CONTROLLER Orders Only [facility] [address] [place] [address] 1 scan: (1-Ord) US ARTERIAL LOWER EXTREMITY W JANINA BILATERAL ([id number]) 02/06/2023 Telephone [facility] [address] [facility] [address] Meena Kumari MD Results (imaging) 02/06/2023 Travel 01/31/2023 2:00 PM PIPELINE CONTROLLER Ancillary Procedure [facility] [address] [facility] [address] 01/31/2023 1:00 PM PIPELINE CONTROLLER Ancillary Procedure [facility] [address] [facility] [address] 01/31/2023 Travel from Last 3 Months Immunizations Name Administration Dates Next Due COVID-19 vaccine (Moderna 100mcg/0.5mL) SHAUN DE PAZ 08/25/2021,02/23/2021,08/03/2020,2020 COVID-19 vaccine (Pfizer-Bio NTech 30mcg/0.3mL) 12YO+ BIVALENT BALDEV MDV 01/04/2022 DT (Age < 7 years) [...] Sign Reading Time Taken Comments Blood Pressure 148/62 05/01/2023 1:02 PM PIPELINE CONTROLLER Pulse 90 05/01/2023 1:02 PM PIPELINE CONTROLLER Temperature 37.2 ??C (98.9 ??F) 12/02/2021 11:04 AM C DT Respiratory Rate 16 05/01/2023 1:02 PM PIPELINE CONTROLLER Oxygen Saturation 98% 05/01/2023 1:02 PM PIPELINE CONTROLLER Inhaled Oxygen Concentration - - Weight 62.6 kg (138 lb) 05/01/2023 1:02 PM PIPELINE CONTROLLER Height 154.9 cm (5' 1) 05/01/2023 1:02 PM PIPELINE CONTROLLER Body Mass Index 26.07 05/01/2023 1:02 PM PIPELINE CONTROLLER Plan of Treatment Upcoming Encounters Date Type Department Care Team (Late st Contact Info) Description 08/15/2023 12:30 PM CDT Phone [facility] [address] [facility] [address] [place] [phone] Eliseo Dias MD [address] [facility] [address] [place] [address] Health Maintenance Due Date Last Done Comments Zoster (shingles) series for age 50+ (1 of 2) 12/04/1959 COVID-19 vaccine series ( season) 2022 01/04/2022, 08/25/2021, 02/23/2021, Additional history exists Influenza for age 65+ 11/25/2022 01/04/2022 , 01/26/2021, 01/02/2020, Additional history exists Medicare Wellness for age 65+ 01/18/2024 01/17/2023, 12/24/2021 Depression screening for age 12+ 01/19/2024 01/18/2023, 01/18/2023, 01/17/2023, Additional history exists BMI (ht and wt on same day) for age 18+ 05/01/2024 05/01/2023, 01/17/2023, 10/15/2021, Additional history exists Tetanus booster 02/02/2026 02/03/2016 Pneumococcal series for age 65+ Completed 5, 07/09/2005 Tdap Completed 02/03/2016 DEXA/DXA scan for age 65+ Completed 2022, 12/14/2020 (Verified in Care Everywhere or Patient Record) Medical Devices Implanted Type Area Waitress Device Identifier Shelf Expiration Date Model / Serial / Lot Lead Bladder 28cm Interstim Tined 3mm Spacing - [id number] Implanted:Qty: 1 on 05/04/2016 by Cesar Groves MD at [facility] N/A: Sacrum Med[employer]onic Pain Therapy 04/25/2020 3889-28# / / [id number] Stimulator 7.7mm 14cc Interstim Ii - [id number] Implanted:Qty: 1 on 05/11/2016 by Cesar Groves MD at [facility] N/A: Sacrum [employer] Pain Therapy 10/07/2017 3058# / / [id number] Cmnt Bone 40g Simplex P Non Atb Mv - [id number] Implanted:Qty: 2 on 07/12/2017 by Ignacio Mead MD at [facility] Right: Knee [facility] 04/26/2018 6191-1-010 # / / [id number] Cmnt Bone 40g Simplex P Non Atb Mv - [id number] Implanted:Qty: 1 on 07/12/2017 by Ignacio Mead MD at [facility] Right: Knee [facility] 04/26/2018 6191-1-010 # / / [id number] V7288-L-844 - [id number] Implanted:Qty: 1 on 07/12/2017 by Ignacio Mead MD at [facility] Right: Knee [facility] 04/27/2022 5551-G-350 / / [id number] Description:Triathlon X3 Asy mmetric patella P4117-J-304 - [id number] Implanted:Qty: 1 on 07/12/2017 by Ignacio Mead MD at [facility] Right: Knee [facility] 03/11/2022 5520-B-500 / / [id number] Description:Triathlon primar y tibial baseplate W6873-J-140 - [id number] Implanted:Qty: 1 on 07/12/2017 by Ignacio Mead MD at [facility] Right: Knee [facility] 05/21/2021 5510-F-502 / / [id number] Description:Triathlon crucia te retaining femoral S1175-X-610 - [id number] Implanted:Qty: 1 on 07/12/2017 by Ignacio Mead MD at [facility] Right: Knee 5531-G-50 9 / / [id number] Description:X3 triathlon CS INS Explanted Type Area Waitress Device Identifier Shelf Expiration Date Model / Serial / Lot Lead Intrdcr Bladder Interstim - [id number] Explanted:Qty: 1 on 05/04/2016 by Cesar Groves MD at [facility] N/A: Sacrum [employer]onic Pain Therapy 05/27/2017 3550-18# / / [id number] Procedures Procedure Name Priority Date/Time Associated Diagnosis Comments US ARTERIAL LOWER EXTREMITY W JANINA BILATERAL Routine 02/06/2023 9:41 AM PIPELINE CONTROLLER Left leg cellulitis CT CHEST WO Routine 01/31/2023 1:25 PM PIPELINE CONTROLLER Mass of middle lobe of right lung US THYROID/PARATHYROID Routine 01/31/2023 1:16 PM PIPELINE CONTROLLER Thyroid nodule from Last 3 Months Results * US ARTERIAL LOWER EXTREMITY W JANINA BILATERAL (02/06/2023 9:41 AM PIPELINE CONTROLLER) Anatomical Region Laterality Modality LEGS Ultrasound 02/06/2023 8:44 AM PIPELINE CONTROLLER Narrative 02/07/2023 12:24 PM PIPELINE CONTROLLER VASCULAR ULTRASOUND REPORT VANESSA SINHA Accession#: ?? [id number] : ?1940 ??Study Date: ?? 02/06/2023 8:44:27 AM Age: ?82 years ?? Tech: ? BSG Gender: F ?Referring MD: JACQUELIN CIFUENTES Site: [facility] Study performed: ?Lower extremity duplex US, [...] cm/s Phasicity ?? + + + + FREIGHT CHECKER PRX ? 155 ? multiphasic + + + + FREIGHT CHECKER DST ? 112 ? multiphasic + + [...] 88 ? multiphasic + + + + PHOTO PRODUCER DST ? 73 ? multiphasic + + + + KOURTNEY DST ? 91 ? multiphasic + + + + DPA ? 87 ? multiphasic + + + + + + + + LEFT ? Velocity cm/s Phasicity ?? + + + + FREIGHT CHECKER PRX ? 153 ? multiphasic + + + + FREIGHT CHECKER DST ? 123 ? multiphasic + + [...] 101 ? multiphasic + + + + PHOTO PRODUCER DST ? 76 ? multiphasic + + [...] ? Index +-----+ +--------+ +-----+ 1.09 ?162 ?PHOTO PRODUCER ?170 ? 1.15 +-----+ +--------+ +-----+ 1.16 ?172 ?DPA ?178 ? 1.20 +-----+ +--------+ +-----+ Danilo Oseguera MD. [facility] Electronically signed on 02/07/2023 12:24:15 PM This study was performed and interpreted by a service accredited by the Intersocietal Accreditation Commission (IAC/Vascular), www.[email or web address]/vascular Report generated by [employer]. ??Final ?? Procedure Note Danilo Oseguera MD - 02/07/2023 VASCULAR ULTRASOUND REPORT VANESSA SINHA : 1940 Study Date: 02/06/2023 8:44:27 AM Age: 82 years Tech: BSG Gender: F Referring MD: JACQUELIN CIFUENTES Site: [facility] Study performed: Lower extremity duplex US, [...] Velocity cm/s Phasicity + + + + FREIGHT CHECKER PRX 155 multiphasic + + + + FREIGHT CHECKER DST 112 multiphasic + + + + PFA 91 multiphasic + + + + SFA PRX 130 multiphasic + + + + SFA PRX MID 121 multiphasic + + + + SFA MID 110 multiphasic + + + + SFA DST 92 multiphasic + + + + MICHAEL PRX 83 multiphasic + + + + MICHAEL DST 88 multiphasic + + + + PHOTO PRODUCER DST 73 multiphasic + + + + KOURTNEY DST 91 multiphasic + + + + DPA 87 multiphasic + + + + + + + + LEFT Velocity cm/s Phasicity + + + + FREIGHT CHECKER PRX 153 multiphasic + + + + FREIGHT CHECKER DST 123 multiphasic + + + + PFA 112 multiphasic + + + + SFA PRX 121 multiphasic + + + + SFA PRX MID 144 multiphasic + + + + SFA MID 125 multiphasic + + + + SFA DST 113 multiphasic + + + + MICHAEL PRX 96 multiphasic + + + + MICHAEL DST 101 multiphasic + + + + PHOTO PRODUCER DST 76 multiphasic + + + + [...] 145 Index +-----+ +--------+ +-----+ 1.09 162 PHOTO PRODUCER 170 1.15 +-----+ +--------+ +-----+ 1.16 172 DPA 178 1.20 +-----+ +--------+ +-----+ Danilo Oseguera MD. [facility] Electronically signed on 02/07/2023 12:24:15 PM This study was performed and interpreted by a service accredited by theIntersocietal Accreditation Commission (IAC/Vascular),[email or web address]/vascular Report generated by [employer]. Final Jacquelin Susanne RINCON US * CT CHEST WO (01/31/2023 1:25 PM PIPELINE CONTROLLER) Anatomical Region Laterality Modality CHEST, THORAX, HEART Computed To mography 01/31/2023 1:35 PM PIPELINE CONTROLLER Addenda Addendum by Eliseo Gutierrez MD on 02/03/2023 3:02 PM PIPELINE CONTROLLER For Patients: ??As a result of the [...] (Electronically Signed) ?? Narrative 01/31/2023 1:35 PM PIPELINE CONTROLLER For Patients: ??As a result of the [...] CT * US THYROID/PARATHYROID (01/31/2023 1:16 PM PIPELINE CONTROLLER) Anatomical Region Laterality Modality THYROID Ultrasound 01/31/2023 1:22 PM PIPELINE CONTROLLER Impressions 01/31/2023 1:22 PM PIPELINE CONTROLLER Similar morphology in size of right-sided thyroid nodule measuring 3.5 cm. Dictated by Eliseo Gutierrez MD @ Jan ??2022 ??1:22PM (Electronically Signed) ?? Narrative 01/31/2023 1:22 PM PIPELINE CONTROLLER For Patients: ??As a result of the [...] right-sided thyroid nodule measuring 3.5cm. Dictated by Eilseo Gutierrez MD @ Jan 31 2023 1:22PM (Electronically Signed) Meena Kumari MD from Last 3 Months Advance Directives Documents on File Type Date Recorded Patient Shredding Specialist Expl anation POLST 07/14/2017 8:01 AM 01/12/2017 Power of Wire Welder 07/14/2017 7:57 AM 01/06 Healthcare Directive 07/14/2017 7:57 AM Latest Code Status on File Code Status Date Activated Date Inactivated Comments Full Code 07/12/2017 7:10 AM 07/14/2017 4:57 PM Code Status History Code Status Date Activated Date Inactivated Comments Full Code 05/11/2016 10:33 AM 05/11/2016 7:12 PM Full Code 05/04/2016 7:01 AM 05/04/2016 3:07 PM Care Teams Strategic Marketing Manager Relationship Specialty Start Date End Date Constanza Cardozo MD [address] [facility] [address] PCP - General Family Practice 08/25/22 [place], CHRISTIANNE Wang River Driver 07/13/17 Sharif Nunez MD [address] [facility] [address] [address] Rheumatology 10/08/21 Riley Camacho MD [address] [facility] [address] [place] [address] Surgery - Urology 08/25/22
== END 2023-05-03 14:19 | disposition home or self-care (01) ==
LOC: WOUND 14:18
PROVIDERS: PCP Family Medicine; Visit Provider Surgery
DX: I87.2 Venous insufficiency (chronic) (peripheral) (principal); L97.822 Non-pressure chronic ulcer of other part of left lower leg with fat layer exposed
CPT/HCPCS: 11042

== ENCOUNTER 2023-05-10 14:17 | Outpatient (CLI) | payer MEDICARE, BC, SELFPAY ==
--- OUTSIDE RECORDS SUMMARY | 2023-05-10 14:21 | XMS_ITS | Clinical Summary ---
Author Name Unknown Organization [employer] [facility] Address [place], [place] [address] Care Team Providers Care Locomotive Engineer Name Role Phone Claudia Betojanny FAUST Unavailable [phone] Sharif Nunez MD Unavailable [phone] Riley Camacho MD Unavailable [phone] Constanza Cardozo MD Primary Care Provider [phone] Allergies Active Allergy Reactions Criticality Noted Date [...] by mouth once daily. 0 01/11/2010 Active multivitamin-patent examiner als therapeutic tablet Take 1 tablet [...] weekly d/t ckd - Endo E-consult at [place] 10/09/2020 with recommendation to continue fosamax for [...] She has hearing aids ([facility] in [place]). Obesity with body mass index 30 or greater 12/21 Arthritis, rheumatoid 08/17/2017 Overview: RA Sees Dr. Nunez at [facility] [phone] fax [phone] Last Assessment & Plan: I went over [...] here today because [facility] [employer] will not supply her with 6 catheters /day. They told her that medicare would only cover 4 catheters/day. She only has 10 catheters left and needs a supply. I contacted Verónica Escalante NP [place] [facility]. She sees her on a routine basis. She will provide Vanessa with enough catheters to get by until her order from [facility] is delivered. She will drive to [place] to warehouse picker the catheters. I had sent Dr. Lopez's order and visit note to [facility] in [place]. Renay Renee will process the order and [...] Department Care Team Description 05/01/2023 1:00 PM PATIENT COORDINATOR FRONT DESK Office Visit [facility] [address] [place] [phone] Eliseo Dias MD Consult (Lung nodule) 05/01/2023 Travel 02/10/2023 2:50 PM PATIENT COORDINATOR FRONT DESK Office Visit [facility] [address] [place] [address] Jacquelin Shine PA Follow Up (Cellulitis of leg) 02/10/2023 Travel 02/07/2023 Orders Only [facility] [address] [facility] [place] [address] Jacquelin Shine PA <No scans attached> from Last 3 Months Immunizations Name Administration [...] Comments Blood Pressure 148/62 05/01/2023 1:02 PM PATIENT COORDINATOR FRONT DESK Pulse 90 05/01/2023 1:02 PM PATIENT COORDINATOR FRONT DESK Temperature 37.2 ??C (98.9 ??F) 12/02/2021 11:04 AM C DT Respiratory Rate 16 05/01/2023 1:02 PM PATIENT COORDINATOR FRONT DESK Oxygen Saturation 98% 05/01/2023 1:02 PM PATIENT COORDINATOR FRONT DESK Inhaled Oxygen Concentration - - Weight 62.6 kg (138 lb) 05/01/2023 1:02 PM PATIENT COORDINATOR FRONT DESK Height 154.9 cm (5' 1) 05/01/2023 1:02 PM PATIENT COORDINATOR FRONT DESK Body Mass Index 26.07 05/01/2023 1:02 PM PATIENT COORDINATOR FRONT DESK Plan of Treatment Upcoming Encounters Date Type Department Care Team (Late st Contact Info) Description 08/15/2023 12:30 PM CDT Phone Office Visit [facility] [address] [facility] [address] [facility] [address] [place] [phone] Eliseo Dias MD [address] [facility] [address] [facility] [address] [place], [place] [phone] Health Maintenance Due Date Last Done Comments [...] Patient Record) Medical Devices Implanted Type Area Librarian Special Collections Device Identifier Shelf Expiration Date Model / Serial / Lot Lead Bladder 28cm Interstim Tined 3mm Spacing - [id number] Implanted:Qty: 1 on 05/04/2016 by Cesar Groves MD at [facility] N/A: Sacrum Medtronic Pain Therapy 04/25/2020 3889-28# / / [id number] Stimulator 7.7mm 14cc Interstim Ii - [id number] Implanted:Qty: 1 on 05/11/2016 by Cesar Groves MD at [facility] N/A: Sacrum Medtronic Pain Therapy 10/07/2017 3058# / / [id number] Cmnt Bone 40g Simplex P Non Atb Mv - [id number] Implanted:Qty: 2 on 07/12/2017 by Ignacio Mead MD at [facility] Right: Knee [facility] 04/26/2018 6191-1-010 # / / [id number] Cmnt Bone 40g Simplex P Non Atb Mv - [id number] Implanted:Qty: 1 on 07/12/2017 by Ignacio Mead MD at [facility] Right: Knee [facility] 04/26/2018 6191-1-010 # / / [id number] N2069-Z-991 - [id number] Implanted:Qty: 1 on 07/12/2017 by Ignacio Mead MD at [facility] Right: Knee [facility] 04/27/2022 5551-G-350 / / [id number] Description:Triathlon X3 Asy mmetric patella S3982-B-086 - [id number] Implanted:Qty: 1 on 07/12/2017 by Ignacio Mead MD at [facility] Right: Knee [facility] 03/11/2022 5520-B-500 / / [id number] Description:Triathlon primar y tibial baseplate Y4847-K-385 - [id number] Implanted:Qty: 1 on 07/12/2017 by Ignacio Mead MD at [facility] Right: Knee [facility] 05/21/2021 5510-F-502 / / [id number] Description:Triathlon crucia te retaining femoral O0662-N-667 - [id number] Implanted:Qty: 1 on 07/12/2017 by Ignacio Mead MD at [facility] Right: Knee 5531-G-50 9 / / [id number] Description:X3 triathlon CS INS Explanted Type Area Librarian Special Collections Device Identifier Shelf Expiration Date Model / Serial / Lot Lead Intrdcr Bladder Interstim - [id number] Explanted:Qty: 1 on 05/04/2016 by Cesar Groves MD at [facility] N/A: Sacrum Medtronic Pain Therapy 05/27/2017 3550-18# / / [id number] Advance Directives Documents on File Type Date Recorded Patient Cotton Stripper Expl anation POLST 07/14/2017 8:01 AM 01/12/2017 Power of Projection Camera Operator 07/14/2017 7:57 AM 01/06 Healthcare Directive 07/14/2017 7:57 AM Latest Code Status on File Code Status Date Activated Date Inactivated Comments Full Code 07/12/2017 7:10 AM 07/14/2017 4:57 PM Code Status History Code Status Date Activated Date Inactivated Comments Full Code 05/11/2016 10:33 AM 05/11/2016 7:12 PM Full Code 05/04/2016 7:01 AM 05/04/2016 3:07 PM Care Teams Locomotive Engineer Relationship Specialty Start Date End Date Constanza Cardozo MD [address] [place] [address] PCP - General Family Practice 08/25/22 Beto Taylor LSW Pharmacy Innovation Assistant 07/13/17 Sharif Nunez MD [address] [facility] [address] [address] Rheumatology 10/08/21 Riley Camacho MD [address] [place] [address] [address] [address] Surgery - Urology 08/25/22
== END 2023-05-10 14:18 | disposition home or self-care (01) ==
LOC: WOUND 14:17
PROVIDERS: PCP Family Medicine; Visit Provider Surgery
DX: I87.2 Venous insufficiency (chronic) (peripheral) (principal); L97.822 Non-pressure chronic ulcer of other part of left lower leg with fat layer exposed
CPT/HCPCS: 11042

== ENCOUNTER 2023-05-17 14:19 | Outpatient (CLI) | payer MEDICARE, BC, SELFPAY ==
--- OUTSIDE RECORDS SUMMARY | 2023-05-17 14:21 | XMS_ITS | Clinical Summary ---
Author Name Unknown Organization [employer] [facility] Address [place], [place] [address] Care Team Providers Care Flotation Tender Helper Name Role Phone Claudia Beto Ivan FAUST Unavailable [phone] Sharif Nunez MD Unavailable [phone] Riley Camacho MD Unavailable [phone] Constanza Cardozo MD Primary Care Provider [phone] Allergies Active Allergy Reactions Criticality Noted Date [...] by mouth once daily. 0 01/11/2010 Active multivitamin-forms examiner als therapeutic tablet Take 1 tablet [...] weekly d/t ckd - Endo E-consult at [place] 10/09/2020 with recommendation to continue fosamax for [...] She has hearing aids ([facility] in [place]). Obesity with body mass index 30 or greater 12/21 Arthritis, rheumatoid 08/17/2017 Overview: RA Sees Dr. Nunez at [facility] [phone] fax [phone] Last Assessment & Plan: I went over [...] & Plan: She is here today because [facility] [employer] will not supply her with 6 catheters /day. They told her that medicare would only cover 4 catheters/day. She only has 10 catheters left and needs a supply. I contacted Verónica Escalante NP [place] [facility]. She sees her on a routine basis. She will provide Vanessa with enough catheters to get by until her order from [facility] is delivered. 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 I had sent Dr. Lopez's order and visit note to [facility] in [place]. Renay Renee will process the order and [...] Department Care Team Description 05/01/2023 1:00 PM PRODUCT SAFETY HEAD Office Visit [facility] [address] [place] [address] [address] [place] [address] Eliseo Dias MD Consult (Lung nodule) 05/01/2023 Travel from Last 3 Months Immunizations Name Administration Dates Next Due COVID-19 vaccine (Moderna 100mcg/0.5mL) SHAUN DE PAZ 08/25/2021,02/23/2021,08/03/2020,2020 COVID-19 vaccine (Pfizer-Bio NTech 30mcg/0.3mL) 12YO+ BIVALENT SHAUN DE PAZ 01/04/2022 DT (Age < 7 years) 07/09/2005 [...] Comments Blood Pressure 148/62 05/01/2023 1:02 PM PRODUCT SAFETY HEAD Pulse 90 05/01/2023 1:02 PM PRODUCT SAFETY HEAD Temperature 37.2 ??C (98.9 ??F) 12/02/2021 11:04 AM C DT Respiratory Rate 16 05/01/2023 1:02 PM PRODUCT SAFETY HEAD Oxygen Saturation 98% 05/01/2023 1:02 PM PRODUCT SAFETY HEAD Inhaled Oxygen Concentration - - Weight 62.6 kg (138 lb) 05/01/2023 1:02 PM PRODUCT SAFETY HEAD Height 154.9 cm (5' 1) 05/01/2023 1:02 PM PRODUCT SAFETY HEAD Body Mass Index 26.07 05/01/2023 1:02 PM PRODUCT SAFETY HEAD Plan of Treatment Upcoming Encounters Date Type Department Care Team (Late st Contact Info) Description 08/15/2023 12:30 PM CDT Phone Office Visit [facility] [address] [place] [phone] Eliseo Dias MD [address] [place], [place] [phone] Health Maintenance Due Date Last Done Comments [...] Patient Record) Medical Devices Implanted Type Area Marine Animal Trainer Device Identifier Shelf Expiration Date Model / Serial / Lot Lead Bladder 28cm Interstim Tined 3mm Spacing - [id number] Implanted:Qty: 1 on 05/04/2016 by Cesar Groves MD at [facility] N/A: Sacrum Medtronic Pain Therapy 04/25/2020 3889-28# / / [id number] Stimulator 7.7mm 14cc Interstim Ii - [id number] Implanted:Qty: 1 on 05/11/2016 by Cesar Groves MD at [facility] N/A: Sacrum Medtronic Pain Therapy 10/07/2017 3058# / / [id number] Cmnt Bone 40g Simplex P Non Atb Mv - [id number] Implanted:Qty: 2 on 07/12/2017 by Ignacio Mead MD at [facility] Right: Knee [facility] 04/26/2018 6191-1-010 # / / [id number] Cmnt Bone 40g Simplex P Non Atb Mv - [id number] Implanted:Qty: 1 on 07/12/2017 by Ignacio Mead MD at [facility] Right: Knee [facility] 04/26/2018 6191-1-010 # / / [id number] R7038-C-891 - [id number] Implanted:Qty: 1 on 07/12/2017 by Ignacio Mead MD at [facility] Right: Knee [facility] 04/27/2022 5551-G-350 / / [id number] Description:Triathlon X3 Asy mmetric patella M9260-W-105 - [id number] Implanted:Qty: 1 on 07/12/2017 by Ignacio Mead MD at [facility] Right: Knee [facility] 03/11/2022 5520-B-500 / / [id number] Description:Triathlon primar y tibial baseplate U2432-A-406 - [id number] Implanted:Qty: 1 on 07/12/2017 by Ignacio Mead MD at [facility] Right: Knee [facility] 05/21/2021 5510-F-502 / / [id number] Description:Triathlon crucia te retaining femoral M7824-D-477 - [id number] Implanted:Qty: 1 on 07/12/2017 by Ignacio Mead MD at [facility] Right: Knee 5531-G-50 9 / / [id number] Description:X3 raul MEZA INS Explanted Type Area Marine Animal Trainer Device Identifier Shelf Expiration Date Model / Serial / Lot Lead Intrdcr Bladder Interstim - [id number] Explanted:Qty: 1 on 05/04/2016 by Cesar Groves MD at [facility] N/A: Sacrum Medtronic Pain Therapy 05/27/2017 3550-18# / / [id number] Advance Directives Documents on File Type Date Recorded Patient Sausage Stuffer Expl anation POLST 07/14/2017 8:01 AM 01/12/2017 Power of Mover Helper 07/14/2017 7:57 AM 01/06 Healthcare Directive 07/14/2017 7:57 AM Latest Code Status on File Code Status Date Activated Date Inactivated Comments Full Code 07/12/2017 7:10 AM 07/14/2017 4:57 PM Code Status History Code Status Date Activated Date Inactivated Comments Full Code 05/11/2016 10:33 AM 05/11/2016 7:12 PM Full Code 05/04/2016 7:01 AM 05/04/2016 3:07 PM Care Teams Flotation Tender Helper Relationship Specialty Start Date End Date Constanza Cardozo MD [address] [place] [address] PCP - General Family Practice 08/25/22 [place], CHRISTIANNE Wang Hoist Worker 07/13/17 Sharif Nunez MD [address] [facility] [address] [place] [address] Rheumatology 10/08/21 Riley Camacho MD [address] [facility] [address] [address] Surgery - Urology 08/25/22
== END 2023-05-17 14:20 | disposition home or self-care (01) ==
LOC: WOUND 14:20
PROVIDERS: PCP Family Medicine; Visit Provider Physician Assistant
DX: I87.2 Venous insufficiency (chronic) (peripheral) (principal); L97.822 Non-pressure chronic ulcer of other part of left lower leg with fat layer exposed
CPT/HCPCS: 97597

== ENCOUNTER 2023-05-24 14:19 | Outpatient (CLI) | payer MEDICARE, BC, SELFPAY | END 2023-05-24 14:20 | disposition home or self-care (01) | LOC: WOUND 14:19 | PROVIDERS: PCP Family Medicine; Visit Provider Surgery | DX: I87.2 Venous insufficiency (chronic) (peripheral) (principal); L97.822 Non-pressure chronic ulcer of other part of left lower leg with fat layer exposed; M05.9 Rheumatoid arthritis with rheumatoid factor, unspecified | CPT/HCPCS: 97597 ==

== ENCOUNTER 2023-05-31 14:14 | Outpatient (CLI) | payer MEDICARE, BC, SELFPAY | END 2023-05-31 14:15 | disposition home or self-care (01) | PROVIDERS: PCP Family Medicine; Visit Provider Surgery | DX: I87.2 Venous insufficiency (chronic) (peripheral) (principal); L97.822 Non-pressure chronic ulcer of other part of left lower leg with fat layer exposed; M05.9 Rheumatoid arthritis with rheumatoid factor, unspecified; I12.9 Hypertensive chronic kidney disease with stage 1 through stage 4 chronic kidney disease, or unspecified chronic kidney disease; N18.30 Chronic kidney disease, stage 3 unspecified | CPT/HCPCS: 97597 ==

== ENCOUNTER 2023-06-07 14:15 | Outpatient (CLI) | payer MEDICARE, BC, SELFPAY | END 2023-06-07 14:16 | disposition home or self-care (01) | LOC: WOUND 14:15 | PROVIDERS: PCP Family Medicine; Visit Provider Family Medicine | DX: I87.2 Venous insufficiency (chronic) (peripheral) (principal); L97.822 Non-pressure chronic ulcer of other part of left lower leg with fat layer exposed; M05.9 Rheumatoid arthritis with rheumatoid factor, unspecified | CPT/HCPCS: 11042 ==

== ENCOUNTER 2023-06-14 14:18 | Outpatient (CLI) | payer MEDICARE, BC, SELFPAY | END 2023-06-14 14:19 | disposition home or self-care (01) | LOC: WOUND 14:18 | PROVIDERS: PCP Family Medicine; Visit Provider Surgery | DX: I87.2 Venous insufficiency (chronic) (peripheral) (principal); L97.822 Non-pressure chronic ulcer of other part of left lower leg with fat layer exposed; M05.9 Rheumatoid arthritis with rheumatoid factor, unspecified; N18.30 Chronic kidney disease, stage 3 unspecified | CPT/HCPCS: 97597 ==

== ENCOUNTER 2023-06-21 14:09 | Outpatient (CLI) | payer MEDICARE, BC, SELFPAY | END 2023-06-21 14:10 | disposition home or self-care (01) | LOC: WOUND 14:09 | PROVIDERS: PCP Family Medicine; Visit Provider Surgery | DX: I87.2 Venous insufficiency (chronic) (peripheral) (principal); L97.822 Non-pressure chronic ulcer of other part of left lower leg with fat layer exposed; M05.9 Rheumatoid arthritis with rheumatoid factor, unspecified | CPT/HCPCS: 11042 ==

== ENCOUNTER 2023-06-28 14:10 | Outpatient (CLI) | payer MEDICARE, BC, SELFPAY | END 2023-06-28 14:11 | disposition home or self-care (01) | LOC: WOUND 14:10 | PROVIDERS: PCP Family Medicine; Visit Provider Surgery | DX: I87.2 Venous insufficiency (chronic) (peripheral) (principal); L97.822 Non-pressure chronic ulcer of other part of left lower leg with fat layer exposed | CPT/HCPCS: 97597 ==

== ENCOUNTER 2023-07-05 14:18 | Outpatient (CLI) | payer MEDICARE, BC, SELFPAY ==
--- OUTSIDE RECORDS SUMMARY | 2023-07-05 14:26 | XMS_ITS | Clinical Summary ---
Author Name Unknown Organization [employer] [facility] Address [place], [place] [address] Care Team Providers Care Chrome Plater Helper Name Role Phone Claudia Beto Ivan FAUST Unavailable [phone] Sharif Nunez MD Unavailable [phone] Riley Cmaacho MD Unavailable [phone] Constanza Cardozo MD Primary Care Provider [phone] Allergies Active Allergy Reactions Criticality Noted Date Comments Clonidine Hallucinations 05/03/2018 Leflunomide Hallucinations 12/21/2017 Lisinopril *Unknown 05/23/2018 Increased creatinine Methotrexate *Unknown 12/21/2017 Did not feel well Opioids - Morphine Analogues Vomiting 07/13/2022 Oxycodone Vomiting,*Unknown 08/11/2011 No reaction listed in [facility] Sulfa (Sulfonamide Antibiotics) *Unknown 12/03/2015 On clinic list No reaction listed in [facility] Hydrocodone-Acetaminoph en Vomiting 10/25/2014 Medications Medication Sig Dispensed Refills Start Date End Date Status CALCIUM CARBONATE/VITAMIN D2 (CALCIUM + VITAMIN D ORAL) Take 1 tablet by mouth once daily. 01/11/2010 Active multivitamin-billet examiner als therapeutic tablet Take 1 tablet by mouth once daily. Active acetaminophen (TYLENOL EXTRA STRENGTH) 500 mg [...] weekly d/t ckd - Endo E-consult at [place] 10/09/2020 with recommendation to continue fosamax for 5 years, ok to increase to typical dosing Post-traumatic osteoarthritis, left wrist 202207/18/2022 Neurogenic bladder 03/10/2022 Closed fracture of left proximal humerus 022 Closed fracture of distal radius and ulna 2021 Mass of middle lobe of right lung 12/20/2021 Overview: Incidental in CT AP 10/04/21. Stable on repeat chest CT 12/17/21, also [...] She has hearing aids ([facility] in [place]). Obesity with body mass index 30 or greater 12/21 Arthritis, rheumatoid 08/17/2017 Overview: RA Sees Dr. Nunez at [facility] [phone] fax [phone] Last Assessment & Plan: I went over [...] & Plan: [facility] catheters /day. They told her that medicare would only cover 4 catheters/day. She only has 10 catheters left and needs a supply. I contacted Verónica Escalante NP [place] [facility]. She sees her on a routine basis. She will provide Vanessa with enough catheters to get by until her order from [facility] is delivered. 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 I had sent Dr. Lopez's order and visit note to [facility] in [place]. Renay Renee will process the order and [...] Department Care Team Description 05/01/2023 1:00 PM RESEARCH AND EVALUATION MANAGER Office Visit [facility] [address] [facility] [address] [place] [address] Eliseo Dias MD Consult (Lung [...] Comments Blood Pressure 148/62 05/01/2023 1:02 PM RESEARCH AND EVALUATION MANAGER Pulse 90 05/01/2023 1:02 PM RESEARCH AND EVALUATION MANAGER Temperature 37.2 ??C (98.9 ??F) 12/02/2021 11:04 AM C DT Respiratory Rate 16 05/01/2023 1:02 PM RESEARCH AND EVALUATION MANAGER Oxygen Saturation 98% 05/01/2023 1:02 PM RESEARCH AND EVALUATION MANAGER Inhaled Oxygen Concentration - - Weight 62.6 kg (138 lb) 05/01/2023 1:02 PM RESEARCH AND EVALUATION MANAGER Height 154.9 cm (5' 1) 05/01/2023 1:02 PM RESEARCH AND EVALUATION MANAGER Body Mass Index 26.07 05/01/2023 1:02 PM RESEARCH AND EVALUATION MANAGER Plan of Treatment Upcoming Encounters Date Type Department Care Team (Late st Contact Info) Description 08/15/2023 12:30 PM CDT Phone Office Visit [facility] [address] [place] [phone] Eliseo Dias MD [address] [place] [address] Health Maintenance Due Date Last Done Comments Zoster (shingles) series for age 50+ (1 of 2) 12/04/1959 COVID-19 vaccine series ( season) 2022 01/04/2022, 08/25/2021, 02/23/2021, Additional history exists Influenza for age 65+ 11/26/2023 01/04/2022 , 01/26/2021, 01/02/2020, Additional history exists [...] Patient Record) Medical Devices Implanted Type Area United [place] Marshal Device Identifier Shelf Expiration Date Model / Serial / Lot Lead Bladder 28cm Interstim Tined 3mm Spacing - [id number] Implanted:Qty: 1 on 05/04/2016 by Cesar Groves MD at [facility] N/A: Sacrum Medtronic Pain Therapy 04/25/2020 3889-28# / / [id number] Stimulator 7.7mm 14cc Interstim Ii - [id number] Implanted:Qty: 1 on 05/11/2016 by Cesar Groves MD at [facility] N/A: Sacrum Medtronic Pain Therapy 10/07/2017 3058# / / [id number] Cmnt Bone 40g Simplex P Non Atb Mv - [id number] Implanted:Qty: 2 on 07/12/2017 by Ignacio Mead MD at [facility] Right: Knee [facility] 04/26/2018 6191-1-010 # / / [id number] Cmnt Bone 40g Simplex P Non Atb Mv - [id number] Implanted:Qty: 1 on 07/12/2017 by Ignacio Mead MD at [facility] Right: Knee [facility] 04/26/2018 6191-1-010 # / / [id number] R3844-U-697 - [id number] Implanted:Qty: 1 on 07/12/2017 by Ignacio Mead MD at [facility] Right: Knee [facility] 04/27/2022 5551-G-350 / / [id number] Description:Triathlon X3 Asy mmetric patella E7288-K-706 - [id number] Implanted:Qty: 1 on 07/12/2017 by Ignacio Mead MD at [facility] Right: Knee [facility] 03/11/2022 5520-B-500 / / [id number] Description:Triathlon primar y tibial baseplate G6862-B-216 - [id number] Implanted:Qty: 1 on 07/12/2017 by Ignacio Mead MD at [facility] Right: Knee [facility] 05/21/2021 5510-F-502 / / [id number] Description:Triathlon crucia te retaining femoral Q9588-U-403 - [id number] Implanted:Qty: 1 on 07/12/2017 by Ignacio Mead MD at [facility] Right: Knee 5531-G-50 9 / / [id number] Description:X3 annan CS INS Explanted Type Area United [place] Marshal Device Identifier Shelf Expiration Date Model / Serial / Lot Lead Intrdcr Bladder Interstim - [id number] Explanted:Qty: 1 on 05/04/2016 by Cesar Groves MD at [facility] N/A: Sacrum Medtronic Pain Therapy 05/27/2017 3550-18# / / [id number] Procedures Procedure Name Priority Date/Time Associated Diagnosis Comments XR DXA BONE DENSITY 2 SITES AXIAL Routine 10/06/2022 10:59 AM CDT Age-related osteoporosis without current pathological fracture from Last 3 Months or Most Recently Relevant to Health Maintenance Results * (ABNORMAL) XR DXA BONE DENSITY 2 SITES AXIAL (10/06/2022 10:59 AM CDT) Anatomical Region Laterality Modality Spine, HIPS, HIPL, HIPR Other Impressions 10/11/2022 2:15 PM CDT Osteoporosis. RECOMMENDATIONS: The National Osteoporosis Foundation recommends pharmacologic treatment for patients with T-scores of -2.5 or less, patients with prior history of fragility fractures, or patients with 10-year probability of greater than 3% at hips or greater than 20% of suffering major osteoporotic fractures. Recommend continued optimization of calcium and vitamin D intake through dietary means and/or supplementation and regular exercise. Continue current Alendronate (Fosamax) medication treatment. No bone density results for comparison to ensure improvement of bone density with medications. ?? Continue if appropriate. ??Consider a drug holiday if on fosamax greater than 5 years. Na Valdivia PA-C [facility] 10/11/2022 Narrative 10/11/2022 2:15 PM CDT For Patients: Results are automatically released to your [facility] account once available, in compliance with federal regulations. This means that you may see your results before your provider has had a chance to review them. Please allow 2-3 business days for your provider to comment on the results. XR DXA Bone Mineral Density (BMD) EXAM LOCATION: [facility] [address] [facility] [address] PATIENT NAME: Vanessa Andino DATE OF : 1940 EXAM DATE: 10/06/2022 REQUESTING PROVIDER: Constanza Cardozo MD GENDER AT : female HEIGHT: 5' 1.5 (10/15/2021) WEIGHT: ??141 lb 6.4 oz (08/25/2022) MENOPAUSAL STATUS: Postmenopausal RACE/ETHNICITY: White RISK FACTORS: Height Loss (2 inches or more), History of Fragility Fracture (at a major site), Rheumatoid Arthritis, and White Race CURRENT MEDICATION FOR BONE LOSS: Alendronate (Fosamax) INDICATION: Screening for osteoporosis COMPARISON DATE(S): None DXA scans are compared to prior studies for a patient only when the two (or more) studies were performed on the same scanner. It is not possible to compare data generated on one scanner to data from another because there are not standards in DXA equipment. This applies even if the two scanners are made by the same immunologist. PROCEDURE: Dual-energy x-ray absorptiometry performed with routine technique. Reporting is completed in the form of a T-score. The T-score represents the standard deviation from peak bone mass based on young healthy adult. A Z-score is used for diagnosis in premenopausal women, and for men under the age of 50. FINDINGS: RESULT LUMBAR SPINE L2 - L4 ??(L3) BMD: 1.205 g/cm2 T-Score: - 0.1 Z-Score: + 1.8 Change from prior: ??None RESULTS FEMUR Left femoral neck BMD: 0.887 g/cm2 T-Score: - 1.1 Z-Score: + 1.2 Change from prior: ??None Right femoral neck BMD: 0.867 g/cm2 T-Score: - 1.2 Z-Score: + 1.1 Change from prior: ??None Left hip BMD: 0.791 g/cm2 T-Score: - 1.7 Z-Score: + 0.4 Change from prior: ??None Right hip BMD: 0.811 g/cm2 T-Score: - 1.6 Z-Score: + 0.6 Change from prior: ??None RESULT FOREARM Right Forearm distal radius BMD: 0.346 g/cm2 T-Score: - 5.4 Z-Score: - 2.5 Change from prior: ??None WHO criteria: Normal: T-score at or above -1 SD Osteopenia: T-score between -1.1 and -2.4 SD Osteoporosis: T-score at or below -2.5 SD Constanza Cardozo MD DEXA from Last 3 Months or Most Recently Relevant to Health Maintenance Advance Directives Documents on File Type Date Recorded Patient Mat Maker Expl anation POLST 07/14/2017 8:01 AM 01/12/2017 Power of Gmat Tutor 07/14/2017 7:57 AM 01/06 Healthcare Directive 07/14/2017 7:57 AM * Full Code (Latest Code Status on File) Date Activated Date Inactivated Comments 07/12/2017 7:10 AM 07/14/2017 4:57 PM * Full Code Date Activated Date Inactivated Comments 05/11/2016 10:33 AM 05/11/2016 7:12 PM * Full Code Date Activated Date Inactivated Comments 05/04/2016 7:01 AM 05/04/2016 3:07 PM Care Teams Chrome Plater Helper Relationship Specialty Start Date End Date Constanza Cardozo MD [address] [place] [address] PCP - General Family Practice 08/25/22 [place], CHRISTIANNE Wang Event Host 07/13/17 Sharif Nunez MD [address] [facility] [address] [address] Rheumatology 10/08/21 Riley Camacho MD [address] [place] [address] [address] [address] Surgery - Urology 08/25/22
== END 2023-07-05 14:19 | disposition home or self-care (01) ==
LOC: WOUND 14:18
PROVIDERS: PCP Family Medicine; Visit Provider Physician Assistant
DX: I87.2 Venous insufficiency (chronic) (peripheral) (principal); L97.822 Non-pressure chronic ulcer of other part of left lower leg with fat layer exposed; N18.30 Chronic kidney disease, stage 3 unspecified
CPT/HCPCS: 11042

== ENCOUNTER 2023-07-12 14:17 | Outpatient (CLI) | payer MEDICARE, BC, SELFPAY ==
--- OUTSIDE RECORDS SUMMARY | 2023-07-12 14:20 | XMS_ITS | Clinical Summary ---
Author Name Unknown Organization [facility] Address [place], [place] [address] Care Team Providers Care Optical Sales Associate Name Role Phone Claudia Beto Ivan FAUST Unavailable [phone] Sharif Nunez MD Unavailable + [phone] Riley Camacho MD Unavailable [phone] Constanza Cardozo MD Primary Care Provider [phone] Allergies Active Allergy Reactions Criticality Noted Date [...] tablet by mouth once daily. 01/11/2010 Active multivitamin-open cut examiner als therapeutic tablet Take 1 tablet [...] weekly d/t ckd - Endo E-consult at [place] 10/09/2020 with recommendation to continue fosamax for [...] She has hearing aids ([facility] in [place]). Obesity with body mass index 30 or greater 12/21 Arthritis, rheumatoid 08/17/2017 Overview: RA Sees Dr. Nunez at [facility] [phone] fax [phone] Last Assessment & Plan: I went over [...] & Plan: She is here today because [facility] [employer] will not supply her with 6 catheters /day. They told her that medicare would only cover 4 catheters/day. She only has 10 catheters left and needs a supply. I contacted Verónica Escalante NP [place] [facility]. She sees her on a routine basis. She will provide Vanessa with enough catheters to get by until her order from [facility] is delivered. She will drive to [place] to pharmacy picking technician the catheters. I had sent Dr. Lopez's order and visit note to [facility] in [place]. Renay Renee will process the order and [...] Department Care Team Description 05/01/2023 1:00 PM ENGINEERING MANAGER Office Visit [facility] [address] [facility] [facility] [address] [place] [address] Eliseo Dias MD Consult (Lung [...] Comments Blood Pressure 148/62 05/01/2023 1:02 PM ENGINEERING MANAGER Pulse 90 05/01/2023 1:02 PM ENGINEERING MANAGER Temperature 37.2 ??C (98.9 ??F) 12/02/2021 11:04 AM C DT Respiratory Rate 16 05/01/2023 1:02 PM ENGINEERING MANAGER Oxygen Saturation 98% 05/01/2023 1:02 PM ENGINEERING MANAGER Inhaled Oxygen Concentration - - Weight 62.6 kg (138 lb) 05/01/2023 1:02 PM ENGINEERING MANAGER Height 154.9 cm (5' 1) 05/01/2023 1:02 PM ENGINEERING MANAGER Body Mass Index 26.07 05/01/2023 1:02 PM ENGINEERING MANAGER Plan of Treatment Upcoming Encounters Date Type Department Care Team (Late st Contact Info) Description 08/15/2023 12:30 PM CDT Phone Office Visit [facility] [address] [place] [phone] Eliseo Dias MD [address] [place] [address] Health Maintenance Due Date Last [...] Patient Record) Medical Devices Implanted Type Area Community Service Worker Device Identifier Shelf Expiration Date Model / Serial / Lot Lead Bladder 28cm Interstim Tined 3mm Spacing - [id number] Implanted:Qty: 1 on 05/04/2016 by Cesar Groves MD at [facility] N/A: Sacrum Medtronic Pain Therapy 04/25/2020 3889-28# / / [id number] Stimulator 7.7mm 14cc Interstim Ii - [id number] Implanted:Qty: 1 on 05/11/2016 by Cesar Groves MD at [facility] N/A: Sacrum Medtronic Pain Therapy 10/07/2017 3058# / / [id number] Cmnt Bone 40g Simplex P Non Atb Mv - [id number] Implanted:Qty: 2 on 07/12/2017 by Ignacio Mead MD at [facility] Right: Knee [facility] 04/26/2018 6191-1-010 # / / [id number] Cmnt Bone 40g Simplex P Non Atb Mv - [id number] Implanted:Qty: 1 on 07/12/2017 by Ignacio Mead MD at [facility] Right: Knee [facility] 04/26/2018 6191-1-010 # / / [id number] Z3647-G-111 - [id number] Implanted:Qty: 1 on 07/12/2017 by Ignacio Mead MD at [facility] Right: Knee [facility] 04/27/2022 5551-G-350 / / [id number] Description:Triathlon X3 Asy mmetric patella A0506-V-428 - [id number] Implanted:Qty: 1 on 07/12/2017 by Ignacio Mead MD at [facility] Right: Knee [facility] 03/11/2022 5520-B-500 / / [id number] Description:Triathlon primar y tibial baseplate W6881-D-285 - [id number] Implanted:Qty: 1 on 07/12/2017 by Ignacio Mead MD at [facility] Right: Knee [facility] 05/21/2021 5510-F-502 / / [id number] Description:Triathlon crucia te retaining femoral E0092-N-474 - [id number] Implanted:Qty: 1 on 07/12/2017 by Ignacio Mead MD at [facility] Right: Knee 5531-G-50 9 / / [id number] Description:X3 annan CS INS Explanted Type Area Community Service Worker Device Identifier Shelf Expiration Date Model / Serial / Lot Lead Intrdcr Bladder Interstim - [id number] Explanted:Qty: 1 on 05/04/2016 by Cesar Groves MD at [facility] N/A: Sacrum Medtronic Pain Therapy 05/27/2017 3550-18# / / [id number] Procedures Procedure Name Priority Date/Time Associated Diagnosis [...] greater than 5 years. Na Valdivia [facility]-C [facility] 10/11/2022 Narrative 10/11/2022 2:15 PM CDT For Patients: Results are automatically released to your [facility] ([employer]) account once available, in compliance with federal regulations. This means that you may see your results before your provider has had a chance to review them. Please allow 2-3 business days for your provider to comment on the results. XR DXA Bone Mineral Density (BMD) EXAM LOCATION: [facility] [address] [facility] [address] PATIENT NAME: Vanessa Andino DATE OF : [...] two scanners are made by the same thermoforming operator. PROCEDURE: Dual-energy x-ray absorptiometry performed with routine [...] Documents on File Type Date Recorded Patient Preparole Counseling Aide Expl anation POLST 07/14/2017 8:01 AM 01/12/2017 Power of Forensic Sergeant 07/14/2017 7:57 AM 01/06 Healthcare Directive 07/14/2017 7:57 AM * Full Code (Latest Code Status on File) Date Activated Date Inactivated Comments 07/12/2017 7:10 AM 07/14/2017 4:57 PM * Full Code Date Activated Date Inactivated Comments 05/11/2016 10:33 AM 05/11/2016 7:12 PM * Full Code Date Activated Date Inactivated Comments 05/04/2016 7:01 AM 05/04/2016 3:07 PM Care Teams Optical Sales Associate Relationship Specialty Start Date End Date Constanza Cardozo MD [address] [place] [address] PCP - General Family Practice 08/25/22 [place], CHRISTIANNE Wang Electrical Designer 07/13/17 Sharif Nunez MD [address] [facility] [address] [address] Rheumatology 10/08/21 Riley Camacho MD [address] [place] [address] [address] [id number] Surgery - Urology 08/25/22
== END 2023-07-12 14:18 | disposition home or self-care (01) ==
LOC: WOUND 14:17
PROVIDERS: PCP Family Medicine; Visit Provider Surgery
DX: I87.2 Venous insufficiency (chronic) (peripheral) (principal); L97.822 Non-pressure chronic ulcer of other part of left lower leg with fat layer exposed; M05.9 Rheumatoid arthritis with rheumatoid factor, unspecified; N18.30 Chronic kidney disease, stage 3 unspecified
CPT/HCPCS: 73600; 87070; 87186; 97597

== ENCOUNTER 2023-07-12 15:10 | Outpatient (CLI) | payer MEDICARE, BC, SELFPAY ==
--- OUTSIDE RECORDS SUMMARY | 2023-07-12 15:13 | XMS_ITS | Clinical Summary ---
Author Name Unknown Organization [facility] Address [place], [place] [address] Care Team Providers Care Roll Line Operator Name Role Phone Claudia Beto Ivan FAUST Unavailable [phone] Sharif Nunez MD Unavailable + [phone] Riley Camacho MD Unavailable [phone] Constanza Cardozo MD Primary Care Provider [phone] Allergies Active Allergy Reactions Criticality Noted Date [...] tablet by mouth once daily. 01/11/2010 Active multivitamin-continuous mining machine lode miner als therapeutic tablet Take 1 tablet by [...] weekly d/t ckd - Endo E-consult at [place] 10/09/2020 with recommendation to continue fosamax for [...] She has hearing aids ([facility] in [place]). Obesity with body mass index 30 or greater 12/21 Arthritis, rheumatoid 08/17/2017 Overview: RA Sees Dr. Nunez at [facility] [phone] fax [phone] Last Assessment & Plan: I went over [...] & Plan: She is here today because [facility] will not supply her with 6 catheters /day. They told her that medicare would only cover 4 catheters/day. She only has 10 catheters left and needs a supply. I contacted Verónica Escalante NP [place] [facility]. She sees her on a routine basis. She will provide Vanessa with enough catheters to get by until her order from [facility] is delivered. She will drive to [place] to lemon picker the catheters. I had sent Dr. Lopez's order and visit note to [facility] in [place]. Renay Renee will process the order and [...] Department Care Team Description 05/01/2023 1:00 PM LEATHER COATER Office Visit [facility] [address] [facility] [address] [place] [address] Eliseo Dias MD Consult (Lung [...] Comments Blood Pressure 148/62 05/01/2023 1:02 PM LEATHER COATER Pulse 90 05/01/2023 1:02 PM LEATHER COATER Temperature 37.2 ??C (98.9 ??F) 12/02/2021 11:04 AM C DT Respiratory Rate 16 05/01/2023 1:02 PM LEATHER COATER Oxygen Saturation 98% 05/01/2023 1:02 PM LEATHER COATER Inhaled Oxygen Concentration - - Weight 62.6 kg (138 lb) 05/01/2023 1:02 PM LEATHER COATER Height 154.9 cm (5' 1) 05/01/2023 1:02 PM LEATHER COATER Body Mass Index 26.07 05/01/2023 1:02 PM LEATHER COATER Plan of Treatment Upcoming Encounters Date Type Department Care Team (Late st Contact Info) Description 08/15/2023 12:30 PM CDT Phone Office Visit [facility] [address] [place] [phone] Eliseo Dias MD [address] [place] [address] Health Maintenance Due Date Last [...] Patient Record) Medical Devices Implanted Type Area Wet Mix Operator Device Identifier Shelf Expiration Date Model / Serial / Lot Lead Bladder 28cm Interstim Tined 3mm Spacing - [id number] Implanted:Qty: 1 on 05/04/2016 by Cesar Groves MD at [facility] N/A: Sacrum Medtronic Pain Therapy 04/25/2020 3889-28# / / [id number] Stimulator 7.7mm 14cc Interstim Ii - [id number] Implanted:Qty: 1 on 05/11/2016 by Cesar Groves MD at [facility] N/A: Sacrum Medtronic Pain Therapy 10/07/2017 3058# / / [id number] Cmnt Bone 40g Simplex P Non Atb Mv - [id number] Implanted:Qty: 2 on 07/12/2017 by Ignacio Mead MD at [facility] Right: Knee [facility] 04/26/2018 6191-1-010 # / / [id number] Cmnt Bone 40g Simplex P Non Atb Mv - [id number] Implanted:Qty: 1 on 07/12/2017 by Ignacio Mead MD at [facility] Right: Knee [facility] 04/26/2018 6191-1-010 # / / [id number] F4083-S-298 - [id number] Implanted:Qty: 1 on 07/12/2017 by Ignacio Mead MD at [facility] Right: Knee [facility] 04/27/2022 5551-G-350 / / [id number] Description:Triathlon X3 Asy mmetric patella I4591-X-837 - [id number] Implanted:Qty: 1 on 07/12/2017 by Ignacio Mead MD at [facility] Right: Knee [facility] 03/11/2022 5520-B-500 / / [id number] Description:Triathlon primar y tibial baseplate W1801-K-495 - [id number] Implanted:Qty: 1 on 07/12/2017 by Ignacio Mead MD at [facility] Right: Knee [facility] 05/21/2021 5510-F-502 / / [id number] Description:Triathlon crucia te retaining femoral U9380-D-090 - [id number] Implanted:Qty: 1 on 07/12/2017 by Ignacio Mead MD at [facility] Right: Knee 5531-G-50 9 / / [id number] Description:X3 annan CS INS Explanted Type Area Wet Mix Operator Device Identifier Shelf Expiration Date Model / Serial / Lot Lead Intrdcr Bladder Interstim - [id number] Explanted:Qty: 1 on 05/04/2016 by Cesar Groves MD at [facility] N/A: Sacrum Medtronic Pain Therapy 05/27/2017 3550-18# / / [id number] Procedures Procedure Name Priority Date/Time Associated Diagnosis [...] greater than 5 years. Na Valdivia PA-C [facility] 10/11/2022 Narrative 10/11/2022 2:15 PM CDT For Patients: Results are automatically released to your [facility]) account once available, in compliance with federal regulations. This means that you may see your results before your provider has had a chance to review them. Please allow 2-3 business days for your provider to comment on the results. XR DXA Bone Mineral Density (BMD) EXAM LOCATION: [facility] [address] [facility] [address] PATIENT NAME: Vanessa Andino DATE OF : [...] two scanners are made by the same flatwork finisher hand. PROCEDURE: Dual-energy x-ray absorptiometry performed with routine [...] Documents on File Type Date Recorded Patient District Court Reporter Expl anation POLST 07/14/2017 8:01 AM 01/12/2017 Power of Electrical Tryout Person 07/14/2017 7:57 AM 01/06 Healthcare Directive 07/14/2017 7:57 AM * Full Code (Latest Code Status on File) Date Activated Date Inactivated Comments 07/12/2017 7:10 AM 07/14/2017 4:57 PM * Full Code Date Activated Date Inactivated Comments 05/11/2016 10:33 AM 05/11/2016 7:12 PM * Full Code Date Activated Date Inactivated Comments 05/04/2016 7:01 AM 05/04/2016 3:07 PM Care Teams Roll Line Operator Relationship Specialty Start Date End Date Constanza Cardozo MD [address] [place] [address] PCP - General Family Practice 08/25/22 [place], CHRISTIANNE Wang Chronic Manager 07/13/17 Sharif Nunez MD [address] [facility] [address] [address] Rheumatology 10/08/21 Riley Camacho MD [address] [place] [address] [address] [place] [address] Surgery - Urology 08/25/22
--- NOTE | 2023-07-12 15:15 | XR_ITS ---
Patient: JACOB SINHA Facility:?[facility] Patient ID:?[id number] Site Patient ID:?[id number]. Site :?[id number] Study:?XRay-Extremity Left ANKLE 2 VIEW-07/12/2023 3:47:26 PM Ordering Physician:RONNIE Final Report: Indication: Left ankle pain Technique: Left ankle 3 views Comparison: None Findings: Osteopenia. Soft tissue calcifications. Calcaneal spurs. No acute fracture. No joint effusion. No cortical destruction or periostitis. Impression: No evidence of osteomyelitis or synovitis. Dictated by Eliseo Gutierrez MD @ 07/13/2023 9:50:40 AM Signed by:?Eliseo Gutierrez MD @07/13/2023 9:50:40 AM (Electronic Signature)
== END 2023-07-12 15:11 | disposition home or self-care (01) ==
LOC: RAD 15:11
PROVIDERS: PCP Family Medicine; Visit Provider Surgery
DX: M25.572 Pain in left ankle and joints of left foot (principal); L97.222 Non-pressure chronic ulcer of left calf with fat layer exposed
CPT/HCPCS: 73600; 87070

== ENCOUNTER 2023-07-19 14:34 | Outpatient (CLI) | payer MEDICARE, BC, SELFPAY ==
--- OUTSIDE RECORDS SUMMARY | 2023-07-19 14:36 | XMS_ITS | Clinical Summary ---
Author Name Unknown Organization [facility] Address [place], [place] [address] Care Team Providers Care Unhairing Inspector Name Role Phone Claudia Beto Ivan FAUST Unavailable [phone] Sharif Nunez MD Unavailable + [phone] Riley Camacho MD Unavailable [phone] Constanza Cardozo MD Primary Care Provider [phone] Allergies Active Allergy Reactions Criticality Noted Date [...] tablet by mouth once daily. 01/11/2010 Active multivitamin-vocational examiner als therapeutic tablet Take 1 tablet [...] weekly d/t ckd - Endo E-consult at [place] 10/09/2020 with recommendation to continue fosamax for [...] She has hearing aids ([facility] in [place]). Obesity with body mass index 30 or greater 12/21 Arthritis, rheumatoid 08/17/2017 Overview: RA Sees Dr. Nunez at [facility] [phone] fax [phone] Last Assessment & Plan: I went over [...] & Plan: She is here today because [facility] her with 6 catheters /day. They told her that medicare would only cover 4 catheters/day. She only has 10 catheters left and needs a supply. I contacted Verónica Escalante NP [place] [facility]. She sees her on a routine basis. She will provide Vanessa with enough catheters to get by until her order from [facility] is delivered. She will drive to [place] to bean picker the catheters. I had sent Dr. Lopez's order and visit note to [facility] in [place]. Renay Renee will process the order and [...] Encounters Date Type Department Care Team Description 07/12/2023 Orders Only [facility] Scanner 1 scan: (1-Ord) [facility], EXTREMITY LT ANKLE 2 VIEWS, 07/12/2023 05/01/2023 1:00 PM MECHANICAL SYSTEMS CONTROL ENGINEER Office Visit [facility] [address] [facility] [address] [address] [place] [address] Eliseo Dias MD Consult (Lung [...] Comments Blood Pressure 148/62 05/01/2023 1:02 PM MECHANICAL SYSTEMS CONTROL ENGINEER Pulse 90 05/01/2023 1:02 PM MECHANICAL SYSTEMS CONTROL ENGINEER Temperature 37.2 ??C (98.9 ??F) 12/02/2021 11:04 AM C DT Respiratory Rate 16 05/01/2023 1:02 PM MECHANICAL SYSTEMS CONTROL ENGINEER Oxygen Saturation 98% 05/01/2023 1:02 PM MECHANICAL SYSTEMS CONTROL ENGINEER Inhaled Oxygen Concentration - - Weight 62.6 kg (138 lb) 05/01/2023 1:02 PM MECHANICAL SYSTEMS CONTROL ENGINEER Height 154.9 cm (5' 1) 05/01/2023 1:02 PM MECHANICAL SYSTEMS CONTROL ENGINEER Body Mass Index 26.07 05/01/2023 1:02 PM MECHANICAL SYSTEMS CONTROL ENGINEER Plan of Treatment Upcoming Encounters Date Type Department Care Team (Late st Contact Info) Description 08/15/2023 12:30 PM CDT Phone Office Visit [facility] [address] [place] [address] Eliseo Dias MD [address] [place] [address] Health Maintenance Due Date Last Done Comments [...] Record) Medical Devices Implanted Type Area Cloth Bleaching Supervisor Device Identifier Shelf Expiration Date Model / Serial / Lot Lead Bladder 28cm Interstim Tined 3mm Spacing - [id number] Implanted:Qty: 1 on 05/04/2016 by Cesar Groves MD at [facility] N/A: Sacrum Medtronic Pain Therapy 04/25/2020 3889-28# / / [id number] Stimulator 7.7mm 14cc Interstim Ii - [id number] Implanted:Qty: 1 on 05/11/2016 by Cesar Groves MD at [facility] N/A: Sacrum Medtronic Pain Therapy 10/07/2017 3058# / / [id number] Cmnt Bone 40g Simplex P Non Atb Mv - [id number] Implanted:Qty: 2 on 07/12/2017 by Ignacio Mead MD at [facility] Right: Knee [facility] 04/26/2018 6191-1-010 # / / [id number] Cmnt Bone 40g Simplex P Non Atb Mv - [id number] Implanted:Qty: 1 on 07/12/2017 by Ignacio Mead MD at [facility] Right: Knee [facility] 04/26/2018 6191-1-010 # / / [id number] Z5247-B-558 - [id number] Implanted:Qty: 1 on 07/12/2017 by Ignacio Mead MD at [facility] Right: Knee [facility] 04/27/2022 5551-G-350 / / [id number] Description:Triathlon X3 Asy mmetric patella J7191-R-348 - [id number] Implanted:Qty: 1 on 07/12/2017 by Ignacio Mead MD at [facility] Right: Knee [facility] 03/11/2022 5520-B-500 / / [id number] Description:Triathlon primar y tibial baseplate G0096-K-848 - [id number] Implanted:Qty: 1 on 07/12/2017 by Ignacio Mead MD at [facility] Right: Knee [facility] 05/21/2021 5510-F-502 / / [id number] Description:Maddie oleary te retaining femoral J4495-A-486 - [id number] Implanted:Qty: 1 on 07/12/2017 by Ignacio Mead MD at [facility] Right: Knee 5531-G-50 9 / / [id number] Description:X3 triathlon CS INS Explanted Type Area Cloth Bleaching Supervisor Device Identifier Shelf Expiration Date Model / Serial / Lot Lead Intrdcr Bladder Interstim - [id number] Explanted:Qty: 1 on 05/04/2016 by Cesar Groves MD at [facility] N/A: Sacrum Medtronic Pain Therapy 05/27/2017 3550-18# / / [id number] Procedures Procedure Name Priority Date/Time Associated Diagnosis Comments SCAN-RADIOLOGY REPORT 07/12/2023 12:00 AM CDT XR DXA BONE DENSITY 2 SITES AXIAL Routine 10/06/2022 10:59 AM CDT Age-related osteoporosis without current pathological fracture from Last 3 Months or Most Recently Relevant to Health Maintenance Results * SCAN-RADIOLOGY REPORT (07/12/2023 12:00 AM CDT) Anatomical Region Laterality Modality Other Scanner OTHER * (ABNORMAL) XR DXA BONE DENSITY 2 [...] greater than 5 years. Na Valdivia PA-C [facility] 10/11/2022 Narrative 10/11/2022 2:15 PM CDT For Patients: Results are automatically released to your [facility] account once available, in compliance with federal regulations. This means that you may see your results before your provider has had a chance to review them. Please allow 2-3 business days for your provider to comment on the results. XR DXA Bone Mineral Density (BMD) EXAM LOCATION: [facility] [address] [facility] [address] PATIENT NAME: Vanessa Andino DATE OF : [...] two scanners are made by the same product safety and standards engineer. PROCEDURE: Dual-energy x-ray absorptiometry performed with routine [...] Documents on File Type Date Recorded Patient Rn Surgery Icu Expl anation POLST 07/14/2017 8:01 AM 01/12/2017 Power of Dress Finisher 07/14/2017 7:57 AM 01/06 Healthcare Directive 07/14/2017 7:57 AM * Full Code (Latest Code Status on File) Date Activated Date Inactivated Comments 07/12/2017 7:10 AM 07/14/2017 4:57 PM * Full Code Date Activated Date Inactivated Comments 05/11/2016 10:33 AM 05/11/2016 7:12 PM * Full Code Date Activated Date Inactivated Comments 05/04/2016 7:01 AM 05/04/2016 3:07 PM Care Teams Unhairing Inspector Relationship Specialty Start Date End Date Constanza Cardozo MD [address] [place] [address] PCP - General Family Practice 08/25/22 [place], CHRISTIANNE Wang Tanning Salon Attendant 07/13/17 Sharif Nunez MD [address] [facility] [address] [facility] [address] [place] [address] Rheumatology 10/08/21 Riley Camacho MD [address] [place] [address] [place] [address] Surgery - Urology 08/25/22
== END 2023-07-19 14:35 | disposition home or self-care (01) ==
LOC: WOUND 14:35
PROVIDERS: PCP Family Medicine; Visit Provider Surgery
DX: I87.2 Venous insufficiency (chronic) (peripheral) (principal); L97.822 Non-pressure chronic ulcer of other part of left lower leg with fat layer exposed; M05.9 Rheumatoid arthritis with rheumatoid factor, unspecified
CPT/HCPCS: 11042

== ENCOUNTER 2023-07-26 14:20 | Outpatient (CLI) | payer MEDICARE, BC, SELFPAY ==
--- OUTSIDE RECORDS SUMMARY | 2023-07-26 14:23 | XMS_ITS | Clinical Summary ---
Author Name Unknown Organization [facility] Address [place], [place] [address] Care Team Providers Care Service Transformer Repair Supervisor Name Role Phone Claudia Beto Ivan FAUST Unavailable [phone] Sharif Nunez MD Unavailable + [phone] Riley Camacho MD Unavailable [phone] Constanza Cardozo MD Primary Care Provider Allergies Active Allergy Reactions Criticality Noted Date [...] weekly d/t ckd - Endo E-consult at [facility] 10/09/2020 with recommendation to continue fosamax for [...] She has hearing aids ([facility] in [place]). Obesity with body mass index 30 or greater 12/21 Arthritis, rheumatoid 08/17/2017 Overview: RA Sees Dr. Nunez at [facility] [phone] fax [phone] Last Assessment & Plan: I went over [...] & Plan: She is here today because [facility] [employer] will not supply her with 6 catheters /day. They told her that medicare would only cover 4 catheters/day. She only has 10 catheters left and needs a supply. I contacted Verónica Escalante NP [place] [facility]. She sees her on a routine basis. She will provide Vanessa with enough catheters to get by until her order from [facility] is delivered. She will drive to [place] to picker packer the catheters. I had sent Dr. Lopez's order and visit note to [facility] in [place]. Renay Renee will process the order and [...] Department Care Team Description 07/12/2023 Orders Only [facility] Scanner 1 scan: (1-Ord) [facility], EXTREMITY LT ANKLE 2 VIEWS, 07/12/2023 05/01/2023 1:00 PM MONTESSORI PROGRAM DIRECTOR Office Visit [facility] [address] [place] [address] Eliseo Dias MD Consult (Lung [...] Comments Blood Pressure 148/62 05/01/2023 1:02 PM MONTESSORI PROGRAM DIRECTOR Pulse 90 05/01/2023 1:02 PM MONTESSORI PROGRAM DIRECTOR Temperature 37.2 ??C (98.9 ??F) 12/02/2021 11:04 AM C DT Respiratory Rate 16 05/01/2023 1:02 PM MONTESSORI PROGRAM DIRECTOR Oxygen Saturation 98% 05/01/2023 1:02 PM MONTESSORI PROGRAM DIRECTOR Inhaled Oxygen Concentration - - Weight 62.6 kg (138 lb) 05/01/2023 1:02 PM MONTESSORI PROGRAM DIRECTOR Height 154.9 cm (5' 1) 05/01/2023 1:02 PM MONTESSORI PROGRAM DIRECTOR Body Mass Index 26.07 05/01/2023 1:02 PM MONTESSORI PROGRAM DIRECTOR Plan of Treatment Upcoming Encounters Date Type Department Care Team (Late st Contact Info) Description 08/15/2023 12:30 PM CDT Phone Office Visit [facility] [address] [place] [address] Eliseo Dias MD [address] [place] [address] Health Maintenance Due Date Last Done Comments [...] Patient Record) Medical Devices Implanted Type Area Furnace Mechanic Device Identifier Shelf Expiration Date Model / Serial / Lot Lead Bladder 28cm Interstim Tined 3mm Spacing - [id number] Implanted:Qty: 1 on 05/04/2016 by Cesar Groves MD at [facility] N/A: Sacrum Medtronic Pain Therapy 04/25/2020 3889-28# / / [id number] Stimulator 7.7mm 14cc Interstim Ii - [id number] Implanted:Qty: 1 on 05/11/2016 by Cesar Groves MD at [facility] N/A: Sacrum Medtronic Pain Therapy 10/07/2017 3058# / / [id number] Cmnt Bone 40g Simplex P Non Atb Mv - [id number] Implanted:Qty: 2 on 07/12/2017 by Ignacio Mead MD at [facility] Right: Knee [employer] 04/26/2018 6191-1-010 # / / [id number] Cmnt Bone 40g Simplex P Non Atb Mv - [id number] Implanted:Qty: 1 on 07/12/2017 by Ignacio Mead MD at [facility] Right: Knee [employer] 04/26/2018 6191-1-010 # / / [id number] D2236-Y-033 - [id number] Implanted:Qty: 1 on 07/12/2017 by Ignacio Mead MD at [facility] Right: Knee [employer] 04/27/2022 5551-G-350 / / [id number] Description:Triathlon X3 Asy mmetric patella E4002-O-603 - [id number] Implanted:Qty: 1 on 07/12/2017 by Ignacio Mead MD at [facility] Right: Knee [employer] 03/11/2022 5520-B-500 / / [id number] Description:Triathlon primar y tibial baseplate E5948-P-097 - [id number] Implanted:Qty: 1 on 07/12/2017 by Ignacio Mead MD at [facility] Right: Knee [employer] 05/21/2021 5510-F-502 / / [id number] Description:Maddie oleary te retaining femoral B7256-J-065 - [id number] Implanted:Qty: 1 on 07/12/2017 by Ignacio Mead MD at [facility] Right: Knee 5531-G-50 9 / / [id number] Description:X3 triathlon CS INS Explanted Type Area Furnace Mechanic Device Identifier Shelf Expiration Date Model / Serial / Lot Lead Intrdcr Bladder Interstim - [id number] Explanted:Qty: 1 on 05/04/2016 by Cesar Groves MD at [facility] N/A: Sacrum Medtronic Pain Therapy 05/27/2017 3550-18# / / [id number] Procedures Procedure Name Priority Date/Time Associated Diagnosis [...] greater than 5 years. Na Valdivia PA-C [facility] 10/11/2022 Narrative 10/11/2022 2:15 PM CDT For Patients: Results are automatically released to your [facility] account once available, in compliance with federal regulations. This means that you may see your results before your provider has had a chance to review them. Please allow 2-3 business days for your provider to comment on the results. XR DXA Bone Mineral Density (BMD) EXAM LOCATION: [facility] [address] [facility] [address] PATIENT NAME: Vanessa Andino DATE OF : [...] two scanners are made by the same aircraft mechanic. PROCEDURE: Dual-energy x-ray absorptiometry performed with routine [...] Documents on File Type Date Recorded Patient Track Car Operator Expl anation POLST 07/14/2017 8:01 AM 01/12/2017 Power of Test Case Developer 07/14/2017 7:57 AM 01/06 Healthcare Directive 07/14/2017 7:57 AM * Full Code (Latest Code Status on File) Date Activated Date Inactivated Comments 07/12/2017 7:10 AM 07/14/2017 4:57 PM * Full Code Date Activated Date Inactivated Comments 05/11/2016 10:33 AM 05/11/2016 7:12 PM * Full Code Date Activated Date Inactivated Comments 05/04/2016 7:01 AM 05/04/2016 3:07 PM Care Teams Service Transformer Repair Supervisor Relationship Specialty Start Date End Date Constanza Cardozo MD [address] [place] [address] PCP - General Family Practice 08/25/22 [place], CHRISTIANNE Wang Director Home Health 07/13/17 Sharif Nunez MD [address] [facility] [address] [place] [address] Rheumatology 10/08/21 Riley Camacho MD [address] [place] [address] [place] [address] Surgery - Urology 08/25/22
== END 2023-07-26 14:21 | disposition home or self-care (01) ==
LOC: WOUND 14:21
PROVIDERS: PCP Family Medicine; Visit Provider Surgery
DX: I87.2 Venous insufficiency (chronic) (peripheral) (principal); L97.822 Non-pressure chronic ulcer of other part of left lower leg with fat layer exposed; M05.9 Rheumatoid arthritis with rheumatoid factor, unspecified
CPT/HCPCS: 11042; 11104; 88305

== ENCOUNTER 2023-08-02 14:23 | Outpatient (CLI) | payer MEDICARE, BC, SELFPAY ==
--- OUTSIDE RECORDS SUMMARY | 2023-08-02 14:26 | XMS_ITS | Clinical Summary ---
Author Name Unknown Organization [employer] [facility] Address [place], [place] [address] Care Team Providers Care High School Auto Repair Teacher Name Role Phone Claudia Beto Ivan FAUST Unavailable [phone] Sharif Nunez MD Unavailable [phone] Riley Camacho MD Unavailable [phone] Constanza Cardozo MD Primary Care Provider [phone] Allergies Active Allergy Reactions Criticality Noted Date Comments Clonidine Hallucinations 05/03/2018 Leflunomide Hallucinations 12/21/2017 Lisinopril *Unknown 05/23/2018 Increased creatinine Methotrexate *Unknown 12/21/2017 Did not feel well Opioids - Morphine Analogues Vomiting 07/13/2022 Oxycodone Vomiting,*Unknown 08/11/2011 No reaction listed in [facility] Sulfa (Sulfonamide Antibiotics) *Unknown 12/03/2015 On clinic list No reaction listed in [facility] Hydrocodone-Acetaminoph en Vomiting 10/25/2014 Medications Medication Sig Dispensed Refills Start Date End Date Status CALCIUM CARBONATE/VITAMIN D2 (CALCIUM + VITAMIN D ORAL) Take 1 tablet by mouth once daily. 01/11/2010 Active multivitamin-latent print examiner als therapeutic tablet Take 1 tablet [...] weekly d/t ckd - Endo E-consult at [facility] 10/09/2020 with recommendation to continue fosamax for [...] She has hearing aids ([facility] in [place]). Obesity with body mass index 30 or greater 12/21 Arthritis, rheumatoid 08/17/2017 Overview: RA Sees Dr. Nunez at [facility] [phone] fax [phone] Last Assessment & Plan: I went over [...] & Plan: [facility] /day. They told her that medicare would only cover 4 catheters/day. She only has 10 catheters left and needs a supply. I contacted Verónica Escalante NP [facility] [facility]. She sees her on a routine basis. She will provide Vanessa with enough catheters to get by until her order from [facility] is delivered. She will drive to [place] to garbage pick up man the catheters. I had sent Dr. Lopez's order and visit note to [facility] in [place]. Renay Renee will process the order and [...] Encounters Date Type Department Care Team Description 07/27/2023 Lab Requisition [facility] [phone] Clemencia Randall MD 07/12/2023 Orders Only [facility] Scanner 1 scan: (1-Ord) [facility], EXTREMITY LT ANKLE 2 VIEWS, 07/12/2023 from Last 3 Months Immunizations Name Administration [...] Comments Blood Pressure 148/62 05/01/2023 1:02 PM CALENDER SUPERVISOR Pulse 90 05/01/2023 1:02 PM CALENDER SUPERVISOR Temperature 37.2 ??C (98.9 ??F) 12/02/2021 11:04 AM C DT Respiratory Rate 16 05/01/2023 1:02 PM CALENDER SUPERVISOR Oxygen Saturation 98% 05/01/2023 1:02 PM CALENDER SUPERVISOR Inhaled Oxygen Concentration - - Weight 62.6 kg (138 lb) 05/01/2023 1:02 PM CALENDER SUPERVISOR Height 154.9 cm (5' 1) 05/01/2023 1:02 PM CALENDER SUPERVISOR Body Mass Index 26.07 05/01/2023 1:02 PM CALENDER SUPERVISOR Plan of Treatment Upcoming Encounters Date Type Department Care Team (Late st Contact Info) Description 08/04/2023 2:00 PM CDT Ancillary Procedure [facility] [address] [place] [address] 08/15/2023 12:30 PM CDT Phone Office Visit [facility] [address] [place] [address] Eliseo Dias MD [address] [place] [address] Health Maintenance Due Date Last Done Comments [...] Patient Record) Medical Devices Implanted Type Area Branch Lending Manager Device Identifier Shelf Expiration Date Model / Serial / Lot Lead Bladder 28cm Interstim Tined 3mm Spacing - [id number] Implanted:Qty: 1 on 05/04/2016 by Cesar Groves MD at [facility] N/A: Sacrum Medtronic Pain Therapy 04/25/2020 3889-28# / / [id number] Stimulator 7.7mm 14cc Interstim Ii - [id number] Implanted:Qty: 1 on 05/11/2016 by Cesar Groves MD at [facility] N/A: Sacrum [employer] Pain Therapy 10/07/2017 3058# / / [id number] Cmnt Bone 40g Simplex P Non Atb Mv - [id number] Implanted:Qty: 2 on 07/12/2017 by Ignacio Mead MD at [facility] Right: Knee [employer] 04/26/2018 6191-1-010 # / / [id number] Cmnt Bone 40g Simplex P Non Atb Mv - [id number] Implanted:Qty: 1 on 07/12/2017 by Ignacio Mead MD at [facility] Right: Knee [employer] 04/26/2018 6191-1-010 # / / [id number] Z8088-D-749 - [id number] Implanted:Qty: 1 on 07/12/2017 by Ignacio Mead MD at [facility] Right: Knee [employer] 04/27/2022 5551-G-350 / / [id number] Description:Triathlon X3 Asy mmetric patella X4512-G-437 - [id number] Implanted:Qty: 1 on 07/12/2017 by Ignacio Mead MD at [facility] Right: Knee [employer] 03/11/2022 5520-B-500 / / [id number] Description:Triathlon primar y tibial baseplate Y0472-Y-629 - [id number] Implanted:Qty: 1 on 07/12/2017 by Ignacio Mead MD at [facility] Right: Knee [employer] 05/21/2021 5510-F-502 / / [id number] Description:Maddie oleary te retaining femoral E2224-J-218 - [id number] Implanted:Qty: 1 on 07/12/2017 by Ignacio Mead MD at [facility] Right: Knee 5531-G-50 9 / / [id number] Description:X3 triathlon CS INS Explanted Type Area Branch Lending Manager Device Identifier Shelf Expiration Date Model / Serial / Lot Lead Intrdcr Bladder Interstim - [id number] Explanted:Qty: 1 on 05/04/2016 by Cesar Groves MD at [facility] N/A: Sacrum [employer]onic Pain Therapy 05/27/2017 3550-18# / / [id number] Procedures Procedure Name Priority Date/Time Associated Diagnosis Comments LAB TRACKING EVENT Routine 07/26/2023 3: 16 PM CDT PATH TISSUE EXAM Routine 07/26/2023 3:16 PM CDT SCAN-RADIOLOGY REPORT 07/12/2023 12:00 AM CDT XR DXA BONE DENSITY 2 SITES AXIAL Routine 10/06/2022 10:59 AM CDT Age-related osteoporosis without current pathological fracture from Last 3 Months or Most Recently Relevant to Health Maintenance Results * LAB TRACKING EVENT (07/26/2023 3:16 PM CDT) Other (Other) Client Collect / Unknown 07/26/2023 3:16 PM CDT 07/27/2023 12:33 PM CDT Clemencia Randall MD LAB BILL ONLY [facility] [address] [place] [address], * PATH TISSUE EXAM (07/26/2023 3:16 PM CDT) Case Report Pathology Report ?Case: [id number] ? Authorizing Provider: ??Clemencia Randall MD ??Collected: ? 07/26/2023 1516 ? Ordering Location: ? [facility] ?Received: ?07/27/2023 1409 ? Pathologist: ? Priti Santana MD ? Specimen: ?Left Leg ? 07/28/2023 4:09 PM CDT [facility] Final Diagnosis A) SKIN, LEFT LEG NEAR WOUND, BIOPSY: 1. Granulation tissue with overlying reactive and inflamed epidermis 2. Dermal fibrin deposition and dystrophic calcification 3. Negative for malignancy 07/28/2023 4:09 PM CDT Patient Communicator LABORATORY-C ENTRAL LABORATORY Clinical Information 82-year-old female with abnormal tissue with calcium deposits near wound. History of rheumatoid arthritis. 07/28/2023 4:09 PM CDT Patient Communicator LABORATORY-C ENTRAL LABORATORY Gross Description A) Received in formalin, labeled with the patient's name and left leg, is a 0.7 x 0.5 x 0.4 cm aggregate of reyes tissue fragments. ??The outer surface is firm brown-reyes. ??The specimen is entirely submitted in 1 cassette. TMO 07/27/2023 07/28/2023 4:09 PM CDT [facility]- ENTRAL LABORATORY Microscopic Description The final diagnosis is based on microscopic examination of appropriate sections of all specimens. 07/28/2023 4:09 PM CDT [facility] [employer] [place] LABORATORY-C ENTRAL LABORATORY Additional Information Interpreted at [facility], Central Laboratory - [address] [facility] [address], [place] [address] 07/28/2023 4:09 PM CDT [facility] [employer] [place] [facility]- ENTRAL LABORATORY Other (Left Leg) 07/26/2023 3:16 PM CDT 07/27/2023 2:09 PM CDT Clemencia Randall MD PATHOLOGY/CYTOLO GY Performing Organization Address City/State/[facility] Co de Phone Number [facility] [address] [place] [address], * SCAN-RADIOLOGY REPORT (07/12/2023 12:00 AM CDT) [...] greater than 5 years. Na Valdivia PA-C [facility] 10/11/2022 Narrative 10/11/2022 2:15 PM CDT For Patients: Results are automatically released to your [employer] account once available, in compliance with federal regulations. This means that you may see your results before your provider has had a chance to review them. Please allow 2-3 business days for your provider to comment on the results. XR DXA Bone Mineral Density (BMD) EXAM LOCATION: [facility] [address] [facility] [address] PATIENT NAME: Vanessa Andino DATE OF : [...] two scanners are made by the same claim professional. PROCEDURE: Dual-energy x-ray absorptiometry performed with routine [...] Documents on File Type Date Recorded Patient Senior Systems Administrator Alexandre stock POLST 07/14/2017 8:01 AM 01/12/2017 Power of Principal Process Engineer 07/14/2017 7:57 AM 01/06 Healthcare Directive 07/14/2017 7:57 AM * Full Code (Latest Code Status on File) Date Activated Date Inactivated Comments 07/12/2017 7:10 AM 07/14/2017 4:57 PM * Full Code Date Activated Date Inactivated Comments 05/11/2016 10:33 AM 05/11/2016 7:12 PM * Full Code Date Activated Date Inactivated Comments 05/04/2016 7:01 AM 05/04/2016 3:07 PM Care Teams High School Auto Repair Teacher Relationship Specialty Start Date End Date Constanza Cardozo MD [address] [place] [address] PCP - General Family Practice 08/25/22 [place], CHRISTIANNE Wang Cutter Gas 07/13/17 Sharif Nunez MD [address] [facility] [address] [place] [address] Rheumatology 10/08/21 Riley Camacho MD [address] [facility] [place] [place] [address] Surgery - Urology 08/25/22
== END 2023-08-02 14:24 | disposition home or self-care (01) ==
LOC: WOUND 14:23
PROVIDERS: PCP Family Medicine; Visit Provider Surgery
DX: I87.2 Venous insufficiency (chronic) (peripheral) (principal); L97.322 Non-pressure chronic ulcer of left ankle with fat layer exposed; M05.9 Rheumatoid arthritis with rheumatoid factor, unspecified
CPT/HCPCS: 11042; 87070; 87186; 93970; G0463

== ENCOUNTER 2023-08-02 15:08 | Outpatient (CLI) | payer MEDICARE, BC, SELFPAY ==
--- OUTSIDE RECORDS SUMMARY | 2023-08-02 15:12 | XMS_ITS | Clinical Summary ---
Author Name Unknown Organization [facility] Address [place], [place] [address] Care Team Providers Care Hydraulic Blocker Name Role Phone Claudia Beto Ivan FAUST Unavailable [phone] Sharif Nunez MD Unavailable [phone] Riley Camacho MD Unavailable [phone] Constanza Cardozo MD Primary Care Provider [phone] Allergies Active Allergy Reactions Criticality Noted Date [...] tablet by mouth once daily. 01/11/2010 Active multivitamin-worker's compensation claims examiner als [...] weekly d/t ckd - Endo E-consult at [place] 10/09/2020 with recommendation to continue fosamax for [...] She has hearing aids ([facility] in [place]). Obesity with body mass index 30 or greater 12/21 Arthritis, rheumatoid 08/17/2017 Overview: RA Sees Dr. Nunez at [facility] [phone] fax [phone] Last Assessment & Plan: I went over [...] & Plan: She is here today because [facility] [email or web address] [facility] her with 6 catheters /day. They told her that medicare would only cover 4 catheters/day. She only has 10 catheters left and needs a supply. I contacted Verónica Escalante NP [place] [facility]. She sees her on a routine basis. She will provide Vanessa with enough catheters to get by until her order from [facility] is delivered. She will drive to [place] to pickle cutter the catheters. I had sent Dr. Lopez's order and visit note to [facility] in [place]. Renay Renee will process the order and [...] Department Care Team Description 07/27/[address] [facility] [phone] Clemencia Randall MD 07/12/2023 Orders Only [facility] Scanner 1 scan: (1-Ord) [facility], EXTREMITY LT ANKLE 2 VIEWS, 07/12/2023 from [...] Comments Blood Pressure 148/62 05/01/2023 1:02 PM SAS DEVELOPER ANALYST Pulse 90 05/01/2023 1:02 PM SAS DEVELOPER ANALYST Temperature 37.2 ??C (98.9 ??F) 12/02/2021 11:04 AM C DT Respiratory Rate 16 05/01/2023 1:02 PM SAS DEVELOPER ANALYST Oxygen Saturation 98% 05/01/2023 1:02 PM SAS DEVELOPER ANALYST Inhaled Oxygen Concentration - - Weight 62.6 kg (138 lb) 05/01/2023 1:02 PM SAS DEVELOPER ANALYST Height 154.9 cm (5' 1) 05/01/2023 1:02 PM SAS DEVELOPER ANALYST Body Mass Index 26.07 05/01/2023 1:02 PM SAS DEVELOPER ANALYST Plan of Treatment Upcoming Encounters Date Type Department Care Team (Late st Contact Info) Description 08/04/2023 2:00 PM CDT Ancillary Procedure [facility] [address] [place] [address] 08/15/2023 12:30 PM CDT Phone Office Visit [facility] [address] [place] [address] Eliseo Dias MD [address] [place] [address] Health Maintenance Due Date Last Done Comments [...] Patient Record) Medical Devices Implanted Type Area Medical Lab Scientist Device Identifier Shelf Expiration Date Model / Serial / Lot Lead Bladder 28cm Interstim Tined 3mm Spacing - [id number] Implanted:Qty: 1 on 05/04/2016 by Cesar Groves MD at [facility] N/A: Sacrum [employer] 04/25/2020 3889-28# / / [id number] Stimulator 7.7mm 14cc Interstim Ii - [id number] Implanted:Qty: 1 on 05/11/2016 by Cesar Groves MD at [facility] N/A: Sacrum [employer] Pain Therapy 10/07/2017 3058# / / [id number] Cmnt Bone 40g Simplex P Non Atb Mv - [id number] Implanted:Qty: 2 on 07/12/2017 by Ignacio Mead MD at [facility] Right: Knee [employer] 04/26/2018 6191-1-010 # / / [id number] Cmnt Bone 40g Simplex P Non Atb Mv - [id number] Implanted:Qty: 1 on 07/12/2017 by Ignacio Mead MD at [facility] Right: Knee [employer] 04/26/2018 6191-1-010 # / / [id number] K1905-W-084 - [id number] Implanted:Qty: 1 on 07/12/2017 by Ignacio Mead MD at [facility] Right: Knee [employer] 04/27/2022 5551-G-350 / / [id number] Description:Triathlon X3 Asy mmetric patella D6753-G-287 - [id number] Implanted:Qty: 1 on 07/12/2017 by Ignacio Mead MD at [facility] Right: Knee [employer] 03/11/2022 5520-B-500 / / [id number] Description:Triathlon primar y tibial baseplate D6604-D-087 - [id number] Implanted:Qty: 1 on 07/12/2017 by Ignacio Mead MD at [facility] Right: Knee [employer] [facility] 05/21/2021 5510-F-502 / / [id number] Description:Maddie oleary te retaining femoral G2554-A-312 - [id number] Implanted:Qty: 1 on 07/12/2017 by Ignacio Mead MD at [facility] Right: Knee 5531-G-50 9 / / [id number] Description:X3 triathlon CS INS Explanted Type Area Medical Lab Scientist Device Identifier Shelf Expiration Date Model / Serial / Lot Lead Intrdcr Bladder Interstim - [id number] Explanted:Qty: 1 on 05/04/2016 by Cesar Groves MD at [facility] N/A: Sacrum [employer] Pain Therapy 05/27/2017 3550-18# / / [id number] Procedures Procedure Name Priority Date/Time Associated Diagnosis [...] CDT Clemencia Randall MD LAB BILL ONLY [facility] [address] [place] [address], * PATH TISSUE EXAM (07/26/2023 3:16 PM CDT) Case Report Pathology Report ?Case: [id number] ? Authorizing Provider: ??Clemencia Randall MD ??Collected: ? 07/26/2023 1516 ? Ordering Location: ? [facility] ?Received: ?07/27/2023 1409 ? Pathologist: ? Priti Santana MD ? Specimen: ?Left Leg ? 07/28/2023 4:09 PM CDT [facility] Final Diagnosis A) SKIN, LEFT LEG NEAR WOUND, BIOPSY: 1. Granulation tissue with overlying reactive and inflamed epidermis 2. Dermal fibrin deposition and dystrophic calcification 3. Negative for malignancy 07/28/2023 4:09 PM CDT [facility]-C ENTRAL LABORATORY Clinical Information 82-year-old female with abnormal tissue with calcium deposits near wound. History of rheumatoid arthritis. 07/28/2023 4:09 PM CDT [facility] ENTRAL LABORATORY Gross Description A) Received in formalin, labeled with the patient's name and left leg, is a 0.7 x 0.5 x 0.4 cm aggregate of reyes tissue fragments. ??The outer surface is firm brown-reyes. ??The specimen is entirely submitted in 1 cassette. TMO 07/27/2023 07/28/2023 4:09 PM CDT [facility] Microscopic Description The final diagnosis is based on microscopic examination of appropriate sections of all specimens. 07/28/2023 4:09 PM CDT [facility] LABORATORY-C ENTRAL LABORATORY Additional Information Interpreted at [facility] Central Laboratory - [address] [facility] [address] [address] 07/28/2023 4:09 PM CDT [facility]- ENTRAL LABORATORY Other (Left Leg) 07/26/2023 3:16 PM CDT 07/27/2023 2:09 PM CDT Clemencia Randall MD PATHOLOGY/CYTOLO GY Performing Organization Address City/State/[facility] Co de Phone Number [facility] [address] [place] [address], * SCAN-RADIOLOGY REPORT (07/12/2023 12:00 AM CDT) [...] 5 years. Na Valdivia PA-C [facility] 10/11/2022 Narrative 10/11/2022 2:15 PM CDT For Patients: Results are automatically released to your [employer] account once available, in compliance with federal regulations. This means that you may see your results before your provider has had a chance to review them. Please allow 2-3 business days for your provider to comment on the results. XR DXA Bone Mineral Density (BMD) EXAM LOCATION: [facility] [address] [facility] [place] [address] PATIENT NAME: Vanessa Andino DATE OF : [...] two scanners are made by the same complaint investigator. PROCEDURE: Dual-energy x-ray absorptiometry performed with routine [...] Documents on File Type Date Recorded Patient Motor Coach Tour Operator Alexandre stock POLST 07/14/2017 8:01 AM 01/12/2017 Power of Mail Weigher 07/14/2017 7:57 AM 01/06 Healthcare Directive 07/14/2017 7:57 AM * Full Code (Latest Code Status on File) Date Activated Date Inactivated Comments 07/12/2017 7:10 AM 07/14/2017 4:57 PM * Full Code Date Activated Date Inactivated Comments 05/11/2016 10:33 AM 05/11/2016 7:12 PM * Full Code Date Activated Date Inactivated Comments 05/04/2016 7:01 AM 05/04/2016 3:07 PM Care Teams Hydraulic Blocker Relationship Specialty Start Date End Date Constanza Cardozo MD [address] [place] [address] PCP - General Family Practice 08/25/22 [place], CHRISTIANNE Wang Music Education Director 07/13/17 Sharif Nunez MD [address] [facility] [address] [place] [address] Rheumatology 10/08/21 Riley Camacho MD [address] [place] [address] Surgery - Urology 08/25/22
--- NOTE | 2023-08-02 16:00 | US_ITS ---
Patient: JACOB SINHA Facility:?[facility] Patient ID:?[id number] Site Patient ID:?[id number]. Site :?[id number] Study:?US-Extremity Bilateral Bilateral venous insufficienc-08/02/2023 5:39:30 PM Ordering Physician:?ANDRÉS SCHUMACHER M.D. Final Report: ULTRASOUND BILATERAL LOWER EXTREMITIES VENOUS INSUFFICIENCY INDICATION: Lower extremity venous ulcer. COMPARISON: None. TECHNIQUE: The lower extremity veins were examined with jacobsen-scale ultrasound, color-flow and Doppler spectral analysis. Compressibility of the veins by transducer pressure was used to evaluate the presence or absence of DVT/SVT at sites per exam specific protocol. Assessment of venous competence was performed by Doppler spectral analysis and was performed and documented at exam specific sites in an upright position for venous insufficiency studies. SUPERFICIAL SYSTEM: Right: SFJ 7 mm, incompetent GSV PROX THIGH 3 mm, competent GSV MID THIGH 3 mm, competent GSV DIST THIGH 2 mm, incompetent GSV PROX CALF 2 mm, competent GSV MID CALF 2 mm, competent GSV DIST CALF 3 mm, competent LSV PROX 2 mm, competent LSV MID 2 mm, competent Left: SFJ 5 mm, competent GSV PROX THIGH 3 mm, competent GSV MID THIGH 3 mm, competent GSV DIST THIGH 3 mm, competent GSV PROX CALF 2 mm, competent GSV MID CALF 3 mm, competent GSV DIST CALF -- wound LSV PROX 1 mm, competent LSV MID 3 mm, competent There is no evidence of DVT or deep venous incompetence in the bilateral lower extremities. The deep venous systems are compressible with augmentation of flow post compression. Phasic flow is identified. Right lower extremity: The greater saphenous vein is incompetent at the saphenofemoral junction (reflux duration 0.8 seconds) as well as at the distal thigh (reflux duration of 1.2 seconds). The small saphenous vein is patent and competent. Left lower extremity: No evidence of superficial venous incompetence. IMPRESSION: No evidence of DVT or deep venous incompetence in the bilateral lower extremities. Right greater saphenous vein incompetence at the saphenofemoral junction and distal thigh. Jeovanny De La Cruz M.D. [email or web address] VICKI/connie / be/Dictated by: Jeovanny De La Cruz MD @ 08/03/2023 5:15:00 PM Signed by:?Jeovanny De La Cruz MD @08/03/2023 6:45:30 PM (Electronic Signature)
== END 2023-08-02 15:09 | disposition home or self-care (01) ==
LOC: US 15:10
PROVIDERS: PCP Family Medicine; Visit Provider Surgery
DX: S91.002A Unspecified open wound, left ankle, initial encounter
CPT/HCPCS: 87070; 93970

== ENCOUNTER 2023-08-09 14:19 | Outpatient (CLI) | payer MEDICARE, BC, SELFPAY ==
--- OUTSIDE RECORDS SUMMARY | 2023-08-09 14:21 | XMS_ITS | Clinical Summary ---
Author Name Unknown Organization Who@ [facility] Address [place], [place] [address] Care Team Providers Care Human Capital Consultant Name Role Phone Claudia Beto Ivan FAUST Unavailable [phone] Sharif Nunez MD Unavailable [phone] Riley Camacho MD Unavailable [phone] Constanza Cardozo MD Primary Care Provider Allergies [...] tablet by mouth once daily. 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 Obesity with body mass index 30 or greater 12/21 Arthritis, rheumatoid 08/17/2017 Overview: RA Sees Dr. Nunez at [facility] [phone] fax [phone] Last Assessment & Plan: I went over [...] & Plan: She is here today because [facility] with 6 catheters /day. They told her that medicare would only cover 4 catheters/day. She only has 10 catheters left and needs a supply. I contacted Verónica Escalante NP [facility] [facility]. She sees her on a routine basis. She will provide Vanessa with enough catheters to get by until her order from [facility] is delivered. She will drive to [place] to meat pickler the catheters. I had sent Dr. Lopez's order and visit note to [facility] in [place]. Renay Renee will process the order and [...] Encounters Date Type Department Care Team Description 08/04/2023 2:00 PM CDT Ancillary Procedure [facility] [address] [place] [address] Arrived 08/04/2023 Travel 07/27/2023 Lab Requisition [facility] [phone] Clemencia Randall MD 07/12/2023 Orders Only [facility] Scanner 1 scan: (1-Ord) [facility], EXTREMITY LT ANKLE 2 VIEWS, 07/12/2023 from Last 3 Months Immunizations Name Administration Dates Next Due COVID-19 vaccine (Moderna 100mcg/0.5mL) SHAUN DE PAZ 08/25/2021,02/23/2021,08/03/2020,2020 COVID-19 vaccine ([employer] NTech 30mcg/0.3mL) 12YO+ BIVALENT PF, MDV 01/04/2022 [...] Comments Blood Pressure 148/62 05/01/2023 1:02 PM GALVANIZER ZINC Pulse 90 05/01/2023 1:02 PM GALVANIZER ZINC Temperature 37.2 ??C (98.9 ??F) 12/02/2021 11:04 AM C DT Respiratory Rate 16 05/01/2023 1:02 PM GALVANIZER ZINC Oxygen Saturation 98% 05/01/2023 1:02 PM GALVANIZER ZINC Inhaled Oxygen Concentration - - Weight 62.6 kg (138 lb) 05/01/2023 1:02 PM GALVANIZER ZINC Height 154.9 cm (5' 1) 05/01/2023 1:02 PM GALVANIZER ZINC Body Mass Index 26.07 05/01/2023 1:02 PM GALVANIZER ZINC Plan of Treatment Upcoming Encounters Date Type Department Care Team (Late st Contact Info) Description 08/15/2023 12:30 PM CDT Phone Office Visit [facility] [address] [place] [address] Eliseo Dias MD [address] [place] [address] Health Maintenance Due Date Last [...] Patient Record) Medical Devices Implanted Type Area Irb Compliance Coordinator Device Identifier Shelf Expiration Date Model / Serial / Lot Lead Bladder 28cm Interstim Tined 3mm Spacing - [id number] Implanted:Qty: 1 on 05/04/2016 by Cesar Groves MD at [facility] N/A: Sacrum Medtronic Pain Therapy 04/25/2020 3889-28# / / [id number] Stimulator 7.7mm 14cc Interstim Ii - [id number] Implanted:Qty: 1 on 05/11/2016 by Cesar Groves MD at [facility] N/A: Sacrum Medtronic Pain Therapy 10/07/2017 3058# / / [id number] Cmnt Bone 40g Simplex P Non Atb Mv - [id number] Implanted:Qty: 2 on 07/12/2017 by Ignacio Mead MD at [facility] Right: Knee [employer] 04/26/2018 6191-1-010 # / / [id number] Cmnt Bone 40g Simplex P Non Atb Mv - [id number] Implanted:Qty: 1 on 07/12/2017 by Ignacio Mead MD at [facility] Right: Knee [employer] 04/26/2018 6191-1-010 # / / [id number] [id number]-U-280 - [id number] Implanted:Qty: 1 on 07/12/2017 by Ignacio Mead MD at [facility] Right: Knee [employer] 04/27/2022 5551-G-350 / / [id number] Description:Triathlon X3 Asy mmetric patella M1229-V-837 - [id number] Implanted:Qty: 1 on 07/12/2017 by Ignacio Mead MD at [facility] Right: Knee [employer] 03/11/2022 5520-B-500 / / [id number] Description:Triathlon primar y tibial baseplate O2005-K-089 - [id number] Implanted:Qty: 1 on 07/12/2017 by Ignacio Mead MD at [facility] Right: Knee [employer] 05/21/2021 5510-F-502 / / [id number] Description:Maddie oleary te retaining femoral M4861-Z-137 - [id number] Implanted:Qty: 1 on 07/12/2017 by Ignacio Mead MD at [facility] Right: Knee 5531-G-50 9 / / [id number] Description:X3 triathlon CS INS Explanted Type Area Irb Compliance Coordinator Device Identifier Shelf Expiration Date Model / Serial / Lot Lead Intrdcr Bladder Interstim - [id number] Explanted:Qty: 1 on 05/04/2016 by Cesar Groves MD at [facility] N/A: Sacrum Medtronic Pain Therapy 05/27/2017 3550-18# / / [id number] Procedures Procedure Name Priority Date/Time Associated Diagnosis Comments CT CHEST WO Routine 08/04/2023 2:22 PM CDT Multiple lung nodules Rheumatoid arthritis, involving unspecified site, unspecified whether rheumatoid factor present (HC) LAB TRACKING EVENT Routine 07/26/2023 3: 16 PM CDT PATH TISSUE EXAM Routine 07/26/2023 3:16 PM CDT SCAN-RADIOLOGY REPORT 07/12/2023 12:00 AM CDT XR DXA BONE DENSITY 2 SITES AXIAL Routine 10/06/2022 10:59 AM CDT Age-related osteoporosis without current pathological fracture from Last 3 Months or Most Recently Relevant to Health Maintenance Results * CT CHEST WO (08/04/2023 2:22 PM CDT) Anatomical Region Laterality Modality CHEST, THORAX, HEART Computed To mography 08/06/2023 10:0 3 PM CDT Impressions 08/06/2023 10:03 PM CDT 1. Similar exam when compared to 06/20/2022 with several irregular nodules within the right lung. A small 1 centimeter lobe unchanged from most lateral right lower recent exam but new from 2021 attention on follow-up. Please note that all CT scans at this facility use dose modulation, iterative reconstruction, and/or weight-based dosing when appropriate to reduce radiation dose to as low as reasonably achievable. Dictated by Amanda Valenzuela MD @ 08/06/2023 11:10:19 AM (Electronically Signed) Narrative 08/06/2023 10:03 PM CDT For Patients: ??As a result of the Cures Act, medical imaging exams and procedure reports are released immediately into your electronic medical record. ??You may view this report before your referring provider. ??If you have questions, please contact your health care provider. INDICATION: Multiple nodules TECHNIQUE: CT chest without contrast. COMPARISON: CT chest 01/31/2023 12/17/2021 FINDINGS: Heterogeneous enlarged right thyroid lobe probable multiple nodules overall appearance is unchanged Lungs and pleura: Peripheral nodular opacity in the right middle lobe unchanged measuring 1.7 x 1.3 centimeters . Triangular subpleural density in the superior aspect of the right lower lobe is also unchanged measuring 1.3 centimeters on 01/15. Small 1 centimeter peripheral right lower lobe unchanged from the most recent exam new from 2021. on Tiny nodule medial right lower lobe is unchanged. Heart and vasculature: Heart size is normal Thoracic aorta and pulmonary artery are normal in caliber. Lymph nodes/mediastinum: No mediastinal, hilar, or axillary adenopathy. Chest wall: No masses. Upper abdomen: No acute findings. Bones: Postop changes left proximal humerus. Procedure Note Amanda Valenzuela MD - 08/06/2023 For Patients: As a result of the Cures Act, medical imagingexams and procedure reports are released immediately into your electronicmedical record. You may view this report before your referring provider.If you have questions, please contact your health care provider. INDICATION: Multiple nodules TECHNIQUE: CT chest without contrast. COMPARISON: CT chest 01/31/2023 12/17/2021 FINDINGS: Heterogeneous enlarged right thyroid lobe probable multiple nodulesoverall appearance is unchanged Lungs and pleura: Peripheral nodular opacity in the right middle lobeunchanged measuring 1.7 x 1.3 centimeters . Triangular subpleuraldensity in the superior aspect of the right lower lobe is also unchangedmeasuring 1.3 centimeters on 01/15. Small 1 centimeter peripheral right lower lobe unchanged from themost recent exam new from 2021. on Tiny nodule medial right lower lobe is unchanged. Heart and vasculature: Heart size is normal Thoracic aorta and pulmonary artery are normal in caliber. Lymph nodes/mediastinum: No mediastinal, hilar, or axillary adenopathy. Chest wall: No masses. Upper abdomen: No acute findings. Bones: Postop changes left proximal humerus. IMPRESSION: 1. Similar exam when compared to 06/20/2022 with several irregular noduleswithin the right lung. A small 1 centimeter lobe unchanged from most lateral right lower recentexam but new from 2021 attention on follow-up. Please note that all CT scans at this facility use dose modulation,iterative reconstruction, and/or weight-based dosing when appropriate toreduce radiation dose to as low as reasonably achievable. Dictated by Amanda Valenzuela MD @ 08/06/2023 11:10:19 AM (Electronically Signed) Eliseo Dias MD CT * LAB TRACKING EVENT (07/26/2023 3:16 PM CDT) Other (Other) Client Collect / Unknown 07/26/2023 3:16 PM CDT 07/27/2023 12:33 PM CDT Clemencia Randall MD LAB BILL ONLY [facility] [address] [place] [id number], * PATH TISSUE EXAM (07/26/2023 3:16 PM CDT) Case Report Pathology Report ?Case: [id number] ? Authorizing Provider: ??Clemencia Randall MD ??Collected: ? 07/26/2023 1516 ? Ordering Location: ? [facility] ?Received: ?07/27/2023 1409 ? Pathologist: ? Priti Santana MD ? Specimen: ?Left Leg ? 07/28/2023 4:09 PM T [facility]press [facility] Final Diagnosis A) SKIN, LEFT LEG NEAR WOUND, BIOPSY: 1. Granulation tissue with overlying reactive and inflamed epidermis 2. Dermal fibrin deposition and dystrophic calcification 3. Negative for malignancy 07/28/2023 4:09 PM T [facility] Clinical Information 82-year-old female with abnormal tissue with calcium deposits near wound. History of rheumatoid arthritis. 07/28/2023 4:09 PM T [facility] Gross Description A) Received in formalin, labeled with the patient's name and left leg, is a 0.7 x 0.5 x 0.4 cm aggregate of reyes tissue fragments. ??The outer surface is firm brown-reyes. ??The specimen is entirely submitted in 1 cassette. TMO 07/27/2023 07/28/2023 4:09 PM T [facility] Microscopic Description The final diagnosis is based on microscopic examination of appropriate sections of all specimens. 07/28/2023 4:09 PM T [facility] Additional Information Interpreted at [facility], Central Laboratory - [address], [place] [address] 07/28/2023 4:09 PM CDT [facility]AL LABORAT[facility] Other (Left Leg) 07/26/2023 3:16 PM CDT 07/27/2023 2:09 PM CDT Clemencia Randall MD PATHOLOGY/[facility] LABORATORY [address] [place] [address], * SCAN-RADIOLOGY REPORT (07/12/2023 12:00 AM CDT) [...] greater than 5 years. Na Valdivia PA-C [facility] 10/11/2022 Narrative 10/11/2022 2:15 PM CDT For Patients: Results are automatically released to your [facility] (liveBooks) account once available, in compliance with federal regulations. This means that you may see your results before your provider has had a chance to review them. Please allow 2-3 business days for your provider to comment on the results. XR DXA Bone Mineral Density (BMD) EXAM LOCATION: [address] [facility] [address] PATIENT NAME: Vanessa Andino DATE OF : [...] two scanners are made by the same geospatial engineer. PROCEDURE: Dual-energy x-ray absorptiometry performed with [...] Documents on File Type Date Recorded Patient Small Stock Facer Expl anation POLST 07/14/2017 8:01 AM 01/12/2017 Power of Group Supervisor Yard 07/14/2017 7:57 AM 01/06 Healthcare Directive 07/14/2017 7:57 AM * Full Code (Latest Code Status on File) Date Activated Date Inactivated Comments 07/12/2017 7:10 AM 07/14/2017 4:57 PM * Full Code Date Activated Date Inactivated Comments 05/11/2016 10:33 AM 05/11/2016 7:12 PM * Full Code Date Activated Date Inactivated Comments 05/04/2016 7:01 AM 05/04/2016 3:07 PM Care Teams Human Capital Consultant Relationship Specialty Start Date End Date Constanza Cardozo MD [address] [place] [address] PCP - General Family Practice 08/25/22 [place], CHRISTIANNE Wang Bridge Gang Worker 07/13/17 Sharif Nunez MD [address] [facility] [address] [facility] [address] [place] [address] Rheumatology 10/08/21 Riley Camacho MD [address] [facility] [place] [address] Surgery - Urology 08/25/22
== END 2023-08-09 14:20 | disposition home or self-care (01) ==
LOC: WOUND 14:19
PROVIDERS: PCP Family Medicine; Visit Provider Surgery
DX: I10 Essential (primary) hypertension (principal); L97.822 Non-pressure chronic ulcer of other part of left lower leg with fat layer exposed; M05.9 Rheumatoid arthritis with rheumatoid factor, unspecified; B95.62 Methicillin resistant Staphylococcus aureus infection as the cause of diseases classified elsewhere; B95.2 Enterococcus as the cause of diseases classified elsewhere; N18.30 Chronic kidney disease, stage 3 unspecified
CPT/HCPCS: 11042

== ENCOUNTER 2023-08-16 14:11 | Outpatient (CLI) | payer MEDICARE, BC, SELFPAY ==
--- OUTSIDE RECORDS SUMMARY | 2023-08-16 14:13 | XMS_ITS | Clinical Summary ---
Author Organization [facility] Address [place], [place] [address] Project Manager Name Role Phone ClaudiaBeto Ivan FAUST Unavailable [phone] Sharif Nunez MD Unavailable [phone] Riley Camacho MD Unavailable [phone] Constanza Cardozo MD Primary Care Provider Allergies [...] tablet by mouth once daily. 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 Obesity with body mass index 30 or greater 12/21 Arthritis, rheumatoid 08/17/2017 Overview: RA Sees Dr. Nunez at [facility] [phone] fax [phone] Last Assessment & Plan: I went over [...] & Plan: She is here today because [facility] will not supply her with 6 catheters /day. They told her that medicare would only cover 4 catheters/day. She only has 10 catheters left and needs a supply. I contacted Verónica Escalante NP [place] [facility]. She sees her on a routine basis. She will provide Vanessa with enough catheters to get by until her order from [facility] is delivered. 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 I had sent Dr. Lopez's order and visit note to [facility] in [place]. Renay Renee will process the order and [...] Encounters Date Type Department Care Team Description 08/15/2023 12:30 PM CDT Phone Office Visit [facility] [address] [place] [address] Eliseo Dias MD Arrived 08/04/2023 2:00 PM CDT Ancillary Procedure [facility] [address] [place] [address] 08/04/2023 Travel 08/02/2023 Orders Only [facility] Scanner 1 scan: (1-Ord) [facility] LOWER EXTREMITY BI INSUF, 08/02/2023 07/27/2023 Lab Requisition [facility] [phone] Clemencia Randall MD 07/12/2023 Orders Only [facility] Scanner 1 scan: (1-Ord) [facility], EXTREMITY LT ANKLE 2 VIEWS, 07/12/2023 from [...] Comments Blood Pressure 148/62 05/01/2023 1:02 PM SOLDER DEPOSIT OPERATOR Pulse 90 05/01/2023 1:02 PM SOLDER DEPOSIT OPERATOR Temperature 37.2 ??C (98.9 ??F) 12/02/2021 11:04 AM C DT Respiratory Rate 16 05/01/2023 1:02 PM SOLDER DEPOSIT OPERATOR Oxygen Saturation 98% 05/01/2023 1:02 PM SOLDER DEPOSIT OPERATOR Inhaled Oxygen Concentration - - Weight 62.6 kg (138 lb) 05/01/2023 1:02 PM SOLDER DEPOSIT OPERATOR Height 154.9 cm (5' 1) 05/01/2023 1:02 PM SOLDER DEPOSIT OPERATOR Body Mass Index 26.07 05/01/2023 1:02 PM SOLDER DEPOSIT OPERATOR Plan of Treatment Health Maintenance Due Date [...] Patient Record) Medical Devices Implanted Type Area Tin Plater Device Identifier Shelf Expiration Date Model / Serial / Lot Lead Bladder 28cm Interstim Tined 3mm Spacing - [id number] Implanted:Qty: 1 on 05/04/2016 by Cesar Groves MD at [facility] N/A: Sacrum [employer]tronic Pain Therapy 04/25/2020 3889-28# / / [id number] Stimulator 7.7mm 14cc Interstim Ii - [id number] Implanted:Qty: 1 on 05/11/2016 by Cesar Groves MD at [facility] N/A: Sacrum [employer] Pain Therapy 10/07/2017 3058# / / [id number] Cmnt Bone 40g Simplex P Non Atb Mv - [id number] Implanted:Qty: 2 on 07/12/2017 by Ignacio Mead MD at [facility] Right: Knee [employer] [facility] 04/26/2018 6191-1-010 # / / [id number] Cmnt Bone 40g Simplex P Non Atb Mv - [id number] Implanted:Qty: 1 on 07/12/2017 by Ignacio Mead MD at [facility] Right: Knee [employer] [facility] 04/26/2018 6191-1-010 # / / [id number] L3539-A-569 - [id number] Implanted:Qty: 1 on 07/12/2017 by Ignacio Mead MD at [facility] Right: Knee [employer] [facility] 04/27/2022 5551-G-350 / / [id number] Description:Triathlon X3 Asy mmetric patella N5889-M-327 - [id number] Implanted:Qty: 1 on 07/12/2017 by Ignacio Mead MD at [facility] Right: Knee [employer] 03/11/2022 5520-B-500 / / [id number] Description:Triathlon primar y tibial baseplate D4777-D-695 - [id number] Implanted:Qty: 1 on 07/12/2017 by Ignacio Mead MD at [facility] Right: Knee [employer] 05/21/2021 5510-F-502 / / [id number] Description:Triathlokaron oleary te retaining femoral Y3535-R-484 - [id number] Implanted:Qty: 1 on 07/12/2017 by Ignacio Mead MD at [facility] Right: Knee 5531-G-50 9 / / [id number] Description:X3 triathlon CS INS Explanted Type Area Tin Plater Device Identifier Shelf Expiration Date Model / Serial / Lot Lead Intrdcr Bladder Interstim - [id number] Explanted:Qty: 1 on 05/04/2016 by Cesar Groves MD at [facility] N/A: Sacrum [employer] Pain Therapy 05/27/2017 3550-18# / / [id number] Procedures Procedure Name Priority Date/Time Associated Diagnosis Comments CT CHEST WO Routine 08/04/2023 2:22 PM CDT Multiple lung nodules Rheumatoid arthritis, involving unspecified site, unspecified whether rheumatoid factor present (HC) SCAN-ULTRASOUND REPORT 08/02/2023 12:00 AM CDT LAB TRACKING EVENT Routine 07/26/2023 3: 16 [...] (Electronically Signed) Eliseo Dias MD CT * SCAN-ULTRASOUND REPORT (08/02/2023 12:00 AM CDT) Anatomical Region Laterality Modality Other Scanner OTHER * LAB TRACKING EVENT (07/26/2023 3:16 PM CDT) Other (Other) Client Collect / Unknown 07/26/2023 3:16 PM CDT 07/27/2023 12:33 PM CDT Clemencia Randall MD LAB BILL ONLY [facility]AL LABORATORY [address] [place] [address], * PATH TISSUE EXAM (07/26/2023 3:16 PM CDT) Case Report Pathology Report ?Case: [id number] ? Authorizing Provider: ??Clemencia Randall MD ??Collected: ? 07/26/2023 1516 ? Ordering Location: ? [facility] ?Received: ?07/27/2023 1409 ? Pathologist: ? Priti Santana MD ? Specimen: ?Left Leg ? 07/28/2023 4:09 PM CDT [facility] Final Diagnosis A) SKIN, LEFT LEG NEAR WOUND, BIOPSY: 1. Granulation tissue with overlying reactive and inflamed epidermis 2. Dermal fibrin deposition and dystrophic calcification 3. Negative for malignancy 07/28/2023 4:09 PM CDT [facility] Clinical Information 82-year-old female with abnormal tissue with calcium deposits near wound. History of rheumatoid arthritis. 07/28/2023 4:09 PM CDT [facility] Gross Description A) Received in formalin, labeled with the patient's name and left leg, is a 0.7 x 0.5 x 0.4 cm aggregate of reyes tissue fragments. ??The outer surface is firm brown-reyes. ??The specimen is entirely submitted in 1 cassette. TMO 07/27/2023 07/28/2023 4:09 PM CDT [facility] Microscopic Description The final diagnosis is based on microscopic examination of appropriate sections of all specimens. 07/28/2023 4:09 PM CDT [facility] Additional Information Interpreted at [facility] [employer] [facility] Central Laboratory - [address] [facility] [address], [place] [address] 07/28/2023 4:09 PM CDT [facility] Other (Left Leg) 07/26/2023 3:16 PM CDT 07/27/2023 2:09 PM CDT Clemencia Randall MD [facility]OLOG[facility] [address] [place] [address], * SCAN-RADIOLOGY REPORT (07/12/2023 12:00 AM CDT) [...] greater than 5 years. Na Valdivia PA-C [email or web address] 10/11/2022 Narrative 10/11/2022 2:15 PM CDT For Patients: Results are automatically released to your [employer] (MyChart) account once available, in compliance with federal regulations. This means that you may see your results before your provider has had a chance to review them. Please allow 2-3 business days for your provider to comment on the results. XR DXA Bone Mineral Density (BMD) EXAM LOCATION: [facility] [address] [facility] [address] PATIENT NAME: Vanessa Andino DATE OF : [...] two scanners are made by the same reel assembler. PROCEDURE: Dual-energy x-ray absorptiometry performed with routine [...] Documents on File Type Date Recorded Patient Administrative Clerk Expl anation POLST 07/14/2017 8:01 AM 01/12/2017 Power of Aircraft Life Support Fitter 07/14/2017 7:57 AM 01/06 Healthcare Directive 07/14/2017 7:57 AM * Full Code (Latest Code Status on File) Date Activated Date Inactivated Comments 07/12/2017 7:10 AM 07/14/2017 4:57 PM * Full Code Date Activated Date Inactivated Comments 05/11/2016 10:33 AM 05/11/2016 7:12 PM * Full Code Date Activated Date Inactivated Comments 05/04/2016 7:01 AM 05/04/2016 3:[address] Project Manager Relationship Specialty Start Date End Date Constanza Cardozo MD [address] [place] [address] PCP - General Family Practice 08/25/22 [place], CHRISTIANNE Wang Computing Services Director 07/13/17 Sharif Nunez MD [address] [facility] [address] [place] [address] Rheumatology 10/08/21 Riley Camacho MD [address] [facility] [address] [place] [address] Surgery - Urology 08/25/22
== END 2023-08-16 14:12 | disposition home or self-care (01) ==
LOC: WOUND 14:11
PROVIDERS: PCP Family Medicine; Visit Provider Surgery
DX: I87.2 Venous insufficiency (chronic) (peripheral) (principal); L97.822 Non-pressure chronic ulcer of other part of left lower leg with fat layer exposed; M05.9 Rheumatoid arthritis with rheumatoid factor, unspecified
CPT/HCPCS: 11042

== ENCOUNTER 2023-08-23 14:22 | Outpatient (CLI) | payer MEDICARE, BC, SELFPAY ==
--- OUTSIDE RECORDS SUMMARY | 2023-08-23 14:24 | XMS_ITS | Clinical Summary ---
Author Organization [facility] Address [place], [place] [address] Care Team Providers Care Railroad Passenger Agent Name Role Phone ClaudiaBeto Ivan FAUST Unavailable [phone] Sharif Nunez MD Unavailable [phone] Riley Camacho MD Unavailable [phone] Constanza Cardozo MD Primary Care Provider Allergies [...] tablet by mouth once daily. 01/11/2010 Active multivitamin-warehouse examiner als therapeutic tablet Take 1 tablet [...] weekly d/t ckd - Endo E-consult at [place] 10/09/2020 with recommendation to continue fosamax for [...] She has hearing aids ([facility] in [place]). Obesity with body mass index 30 or greater 12/21 Arthritis, rheumatoid 08/17/2017 Overview: RA Sees Dr. Nunez at [facility] [phone] fax [phone] Last Assessment & Plan: I went over [...] & Plan: She is here today because [employer] [facility] [employer] will not supply her with 6 catheters /day. They told her that medicare would only cover 4 catheters/day. She only has 10 catheters left and needs a supply. I contacted Verónica Escalante NP [place] [facility]. She sees her on a routine basis. She will provide Vanessa with enough catheters to get by until her order from [facility] is delivered. She will drive to [place] to pickling machine operator the catheters. I had sent [...] 08/15/2023 12:30 PM CDT Phone Office Visit [facility] [address] [place] [address] Eliseo Dias MD 08/04/2023 2:00 PM CDT Ancillary Procedure [facility] [address] [place] [address] 08/04/2023 Travel 08/02/2023 Orders Only [facility] Scanner 1 scan: (1-Ord) [facility], LOWER EXTREMITY BI INSUF, 08/02/2023 07/27/2023 Lab Requisition [facility] [phone] Clemencia Randall MD 07/12/2023 Orders Only [facility] Scanner 1 scan: (1-Ord) [facility], EXTREMITY LT ANKLE 2 VIEWS, 07/12/2023 [...] Comments Blood Pressure 148/62 05/01/2023 1:[address] Pulse 90 05/01/2023 1:[address] Temperature 37.2 ??C (98.9 ??F) 12/02/2021 11:04 AM C DT Respiratory Rate 16 05/01/2023 1:[address] Oxygen Saturation 98% 05/01/2023 1:[address] Inhaled Oxygen Concentration - - Weight 62.6 kg (138 lb) 05/01/2023 1:[address] Height 154.9 cm (5' 1) 05/01/2023 1:[address] Body Mass Index 26.07 05/01/2023 1:[address] Plan of Treatment Health Maintenance Due Date [...] Patient Record) Medical Devices Implanted Type Area Apartment Assistant Manager Device Identifier Shelf Expiration Date Model / Serial / Lot Lead Bladder 28cm Interstim Tined 3mm Spacing - [id number] Implanted:Qty: 1 on 05/04/2016 by Cesar Groves MD at [facility] N/A: Sacrum Medtronic Pain Therapy 04/25/2020 3889-28# / / [id number] Stimulator 7.7mm 14cc Interstim Ii - [id number] Implanted:Qty: 1 on 05/11/2016 by Cesar Groves MD at [facility] N/A: Sacrum Medtronic Pain Therapy 10/07/2017 3058# / / [id number] Cmnt Bone 40g Simplex P Non Atb Mv - [id number] Implanted:Qty: 2 on 07/12/2017 by Ignacio Mead MD at [facility] Right: Knee [employer] 04/26/2018 6191-1-010 # / / [id number] Cmnt Bone 40g Simplex P Non Atb Mv - [id number] Implanted:Qty: 1 on 07/12/2017 by Ignacio Mead MD at [facility] Right: Knee [employer] 04/26/2018 6191-1-010 # / / [id number] G5901-L-572 - [id number] Implanted:Qty: 1 on 07/12/2017 by Ignacio Mead MD at [facility] Right: Knee [employer] 04/27/2022 5551-G-350 / / [id number] Description:Triathlon X3 Asy mmetric patella H6288-W-463 - [id number] Implanted:Qty: 1 on 07/12/2017 by Ignacio Mead MD at [facility] Right: Knee [employer] 03/11/2022 5520-B-500 / / [id number] Description:Triathlon primar y tibial baseplate U1686-A-737 - [id number] Implanted:Qty: 1 on 07/12/2017 by Ignacio Mead MD at [facility] Right: Knee [employer] 05/21/2021 5510-F-502 / / [id number] Description:Triathlon mamta te retaining femoral L3119-M-311 - [id number] Implanted:Qty: 1 on 07/12/2017 by Ignacio Mead MD at [facility] Right: Knee 5531-G-50 9 / / [id number] Description:X3 triathlon CS INS Explanted Type Area Apartment Assistant Manager Device Identifier Shelf Expiration Date Model / Serial / Lot Lead Intrdcr Bladder Interstim - [id number] Explanted:Qty: 1 on 05/04/2016 by Cesar Groves MD at [facility] N/A: Sacrum Medtronic Pain Therapy 05/27/2017 3550-18# / / [id number] Procedures Procedure Name Priority Date/Time Associated Diagnosis [...] CDT Clemencia Randall MD LAB BILL ONLY [facility]OR[facility]-CENTRAL LABORATORY [address] [place] [address], * PATH TISSUE EXAM (07/26/2023 3:16 PM CDT) Case Report Pathology Report ?Case: [id number] ? Authorizing Provider: ??Clemencia Randall MD ??Collected: ? 07/26/2023 1516 ? Ordering Location: ? [facility] ?Received: ?07/27/2023 1409 ? Pathologist: ? Priti Santana MD ? Specimen: ?Left Leg ? 07/28/2023 4:09 PM CDT [employer] LABORATORY-C ENTRAL LABORATORY Final Diagnosis A) SKIN, LEFT LEG NEAR WOUND, BIOPSY: 1. Granulation tissue with overlying reactive and inflamed epidermis 2. Dermal fibrin deposition and dystrophic calcification 3. Negative for malignancy 07/28/2023 4:09 PM CDT [employer] [facility] LABORATORY-C ENTRAL LABORATORY Clinical Information 82-year-old female with abnormal tissue with calcium deposits near wound. History of rheumatoid arthritis. 07/28/2023 4:09 PM CDT [employer] LABORATORY-C ENTRAL LABORATORY Gross Description A) Received in formalin, labeled with the patient's name and left leg, is a 0.7 x 0.5 x 0.4 cm aggregate of reyes tissue fragments. ??The outer surface is firm brown-reyes. ??The specimen is entirely submitted in 1 cassette. TMO 07/27/2023 07/28/2023 4:09 PM CDT [facility] [employer] [facility] ENTR[facility] LABORATORY Microscopic Description The final diagnosis is based on microscopic examination of appropriate sections of all specimens. 07/28/2023 4:09 PM CDT [facility] Additional Information Interpreted at [facility] [employer] [facility] Central Laboratory - [address] [facility] [address], [place] [address] 07/28/2023 4:09 PM CDT [facility] ENTRNM LABORATORY Other (Left Leg) 07/26/2023 3:16 PM CDT 07/27/2023 2:09 PM CDT Clemencia Randall MD PATHOLOG[facility] [address] [place] [address], * SCAN-RADIOLOGY REPORT (07/12/2023 12:00 AM CDT) [...] greater than 5 years. Na Valdivia PA-C [facility] 10/11/2022 Narrative 10/11/2022 2:15 PM CDT For Patients: Results are automatically released to your [employer]reon (AMT) account once available, in compliance with federal regulations. This means that you may see your results before your provider has had a chance to review them. Please allow 2-3 business days for your provider to comment on the results. XR DXA Bone Mineral Density (BMD) EXAM LOCATION: [facility] [address] [facility] [address] PATIENT NAME: Vanessa Andino DATE OF : [...] two scanners are made by the same softball umpire. PROCEDURE: Dual-energy x-ray absorptiometry performed with routine [...] Documents on File Type Date Recorded Patient Expressive Therapist Expl anation POLST 07/14/2017 8:01 AM 01/12/2017 Power of Mgmt Analyst 07/14/2017 7:57 AM 01/06 Healthcare Directive 07/14/2017 7:57 AM * Full Code (Latest Code Status on File) Date Activated Date Inactivated Comments 07/12/2017 7:10 AM 07/14/2017 4:57 PM * Full Code Date Activated Date Inactivated Comments 05/11/2016 10:33 AM 05/11/2016 7:12 PM * Full Code Date Activated Date Inactivated Comments 05/04/2016 7:01 AM 05/04/2016 3:07 PM Care Teams Railroad Passenger Agent Relationship Specialty Start Date End Date Constanza Cardozo MD [address] [place] [address] PCP - General Family Practice 08/25/22 Claudia, CHRISTIANNE [facility] 07/13/17 Sharif Nunez MD [address] [facility] [address] [place] [address] Rheumatology 10/08/21 Riley Camacho MD [address] [facility] [address] [address] Surgery - Urology 08/25/22
== END 2023-08-23 14:23 | disposition home or self-care (01) ==
LOC: WOUND 14:23
PROVIDERS: PCP Family Medicine; Visit Provider Surgery
DX: M05.9 Rheumatoid arthritis with rheumatoid factor, unspecified (principal); L97.822 Non-pressure chronic ulcer of other part of left lower leg with fat layer exposed; N18.30 Chronic kidney disease, stage 3 unspecified
CPT/HCPCS: 11042

== ENCOUNTER 2023-08-30 14:23 | Outpatient (CLI) | payer MEDICARE, BC, SELFPAY ==
--- OUTSIDE RECORDS SUMMARY | 2023-08-30 14:25 | XMS_ITS | Clinical Summary ---
Author Organization [facility] Address [place], [place] [address] Care Team Providers Care Rac Specialist Name Role Phone ClaudiaBeto Ivan FAUST Unavailable [phone] Sharif Nunez MD Unavailable [phone] Riley Camacho MD Unavailable [phone] Constanza Cardozo MD Primary Care Provider Allergies [...] tablet by mouth once daily. 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 Obesity with body mass index 30 or greater 12/21 Arthritis, rheumatoid 08/17/2017 Overview: RA Sees Dr. Nunez at [facility] [phone] fax [phone] Last Assessment & Plan: I went over [...] & Plan: [facility] is here today [facility] [employer] [facility] her with 6 catheters /day. They told her that medicare would only cover 4 catheters/day. She only has 10 catheters left and needs a supply. I contacted Verónica Escalante NP [place] [facility]. She sees her on a routine basis. She will provide Vanessa with enough catheters to get by until her order from [facility] is delivered. 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 I had sent Dr. Lopez's order and visit note to [facility] in [place]. Renay Renee will process the order and [...] PM CDT Phone Office Visit [facility] [address] [place] [address] Eliseo Dias MD 08/04/2023 2:00 PM CDT Ancillary Procedure [facility] [address] [place] [address] 08/04/2023 Travel 08/02/2023 Orders Only [facility] Scanner 1 scan: (1-Ord) [facility], LOWER EXTREMITY BI INSUF, 08/02/2023 07/27/2023 Lab Requisition [facility] [phone] Clemencia Randall MD 07/12/2023 Orders Only [facility] Scanner 1 scan: (1-Ord) [facility], EXTREMITY LT ANKLE 2 VIEWS, 07/12/2023 from [...] Comments Blood Pressure 148/62 05/01/2023 1:02 PM NURSING ATTENDANT Pulse 90 05/01/2023 1:02 PM NURSING ATTENDANT Temperature 37.2 ??C (98.9 ??F) 12/02/2021 11:04 AM C DT Respiratory Rate 16 05/01/2023 1:02 PM NURSING ATTENDANT Oxygen Saturation 98% 05/01/2023 1:02 PM NURSING ATTENDANT Inhaled Oxygen Concentration - - Weight 62.6 kg (138 lb) 05/01/2023 1:02 PM NURSING ATTENDANT Height 154.9 cm (5' 1) 05/01/2023 1:02 PM NURSING ATTENDANT Body Mass Index 26.07 05/01/2023 1:02 PM NURSING ATTENDANT Plan of Treatment Health Maintenance Due Date [...] Patient Record) Medical Devices Implanted Type Area Personal Computer Network Engineer Device Identifier Shelf Expiration Date Model / Serial / Lot Lead Bladder 28cm Interstim Tined 3mm Spacing - [id number] Implanted:Qty: 1 on 05/04/2016 by Cesar Groves MD at [facility] N/A: Sacrum Medtronic Pain Therapy 04/25/2020 3889-28# / / [id number] Stimulator 7.7mm 14cc Interstim Ii - [id number] Implanted:Qty: 1 on 05/11/2016 by Cesar Groves MD at [facility] N/A: Sacrum [employer] Pain Therapy 10/07/2017 3058# / / [id number] Cmnt Bone 40g Simplex P Non Atb Mv - [id number] Implanted:Qty: 2 on 07/12/2017 by Ignacio Mead MD at [facility] Right: Knee [employer] 04/26/2018 6191-1-010 # / / [id number] Cmnt Bone 40g Simplex P Non Atb Mv - [id number] Implanted:Qty: 1 on 07/12/2017 by Ignacio Mead MD at [facility] Right: Knee [employer] 04/26/2018 6191-1-010 # / / [id number] S8410-J-422 - [id number] Implanted:Qty: 1 on 07/12/2017 by Ignacio Mead MD at [facility] Right: Knee [employer] 04/27/2022 5551-G-350 / / [id number] Description:Triathlon X3 Asy mmetric patella I9075-O-745 - [id number] Implanted:Qty: 1 on 07/12/2017 by Ignacio Mead MD at [facility] Right: Knee [employer] 03/11/2022 5520-B-500 / / [id number] Description:Triathlon primar y tibial baseplate I7408-Z-937 - [id number] Implanted:Qty: 1 on 07/12/2017 by Ignacio Mead MD at [facility] Right: Knee [employer] 05/21/2021 5510-F-502 / / [id number] Description:Triathlon mamta te retaining femoral D1310-S-727 - [id number] Implanted:Qty: 1 on 07/12/2017 by Ignacio Mead MD at [facility] Right: Knee 5531-G-50 9 / / [id number] Description:X3 triathlon CS INS Explanted Type Area Personal Computer Network Engineer Device Identifier Shelf Expiration Date Model / Serial / Lot Lead Intrdcr Bladder Interstim - [id number] Explanted:Qty: 1 on 05/04/2016 by Cesar Groves MD at [facility] N/A: Sacrum [employer] Pain Therapy 05/27/2017 3550-18# / / [id number] Procedures Procedure Name Priority Date/Time Associated Diagnosis [...] [facility] LABORATORY-CENTRAL LABORATORY [address] [place] [address], * PATH TISSUE EXAM (07/26/2023 3:16 PM CDT) Case Report Pathology Report ?Case: [id number] ? Authorizing Provider: ??Clemencia Randall MD ??Collected: ? 07/26/2023 1516 ? Ordering Location: ? [facility] ?Received: ?07/27/2023 1409 ? Pathologist: ? Priti Santana MD ? Specimen: ?Left Leg ? 07/28/2023 4:09 PM CDT [facility] LABORATORY-C ENTRAL LABORATORY Final Diagnosis A) SKIN, LEFT LEG NEAR WOUND, BIOPSY: 1. Granulation tissue with overlying reactive and inflamed epidermis 2. Dermal fibrin deposition and dystrophic calcification 3. Negative for malignancy 07/28/2023 4:09 PM CDT [facility] LABORATORY-C ENTRAL LABORATORY Clinical Information 82-year-old female with abnormal tissue with calcium deposits near wound. History of rheumatoid arthritis. 07/28/2023 4:09 PM CDT [facility] LABORAT[facility]-C ENTRAL LABORATORY Gross Description A) Received in formalin, labeled with the patient's name and left leg, is a 0.7 x 0.5 x 0.4 cm aggregate of reyes tissue fragments. ??The outer surface is firm brown-reyes. ??The specimen is entirely submitted in 1 cassette. TMO 07/27/2023 07/28/2023 4:09 PM CDT [facility] [employer] [facility] ENTRWA LABORATORY Microscopic Description The final diagnosis is based on microscopic examination of appropriate sections of all specimens. 07/28/2023 4:09 PM CDT [facility] Additional Information Interpreted at [facility] [employer] [facility] Central Laboratory - [address] [facility] [address], [place] [address] 07/28/2023 4:09 PM CDT [facility] ENTRWA LABORATORY Other (Left Leg) 07/26/2023 3:16 PM CDT 07/27/2023 2:09 PM CDT Clemencia Randall MD PATHOLOGY/CYTOLO GY [facility] [address] [place] [address], * SCAN-RADIOLOGY REPORT (07/12/2023 12:00 AM CDT) [...] Na Valdivia PA-C [facility] 10/11/2022 Narrative 10/11/2022 2:15 PM CDT For Patients: Results are automatically released to your [employer] ([employer]ILUPI) account once available, in compliance with federal regulations. This means that you may see your results before your provider has had a chance to review them. Please allow 2-3 business days for your provider to comment on the results. XR DXA Bone Mineral Density (BMD) EXAM LOCATION: [facility] [address] [facility] [address] PATIENT NAME: Vanessa Andino DATE OF : [...] two scanners are made by the same terminal operations supervisor. PROCEDURE: Dual-energy x-ray absorptiometry performed with routine [...] Documents on File Type Date Recorded Patient Director Of Web Marketing Expl anation POLST 07/14/2017 8:01 AM 01/12/2017 Power of Screen Printing Loader Unloader 07/14/2017 7:57 AM 01/06 Healthcare Directive 07/14/2017 7:57 AM * Full Code (Latest Code Status on File) Date Activated Date Inactivated Comments 07/12/2017 7:10 AM 07/14/2017 4:57 PM * Full Code Date Activated Date Inactivated Comments 05/11/2016 10:33 AM 05/11/2016 7:12 PM * Full Code Date Activated Date Inactivated Comments 05/04/2016 7:01 AM 05/04/2016 3:07 PM Care Teams Rac Specialist Relationship Specialty Start Date End Date Constanza Cardozo MD [address] [facility] [place] [address] PCP - General Family Practice 08/25/22 Claudia, CHRISTIANNE Wang Pharmaceutical Detailer 07/13/17 Sharif Nunez MD [address] [facility] [address] [place] [address] Rheumatology 10/08/21 Riley Camacho MD [address] [facility] [place] [address] Surgery - Urology 08/25/22
== END 2023-08-30 14:24 | disposition home or self-care (01) ==
LOC: WOUND 14:23
PROVIDERS: PCP Family Medicine; Visit Provider Surgery
DX: I87.2 Venous insufficiency (chronic) (peripheral) (principal); L97.822 Non-pressure chronic ulcer of other part of left lower leg with fat layer exposed; M05.9 Rheumatoid arthritis with rheumatoid factor, unspecified
CPT/HCPCS: 11042

== ENCOUNTER 2023-09-06 14:19 | Outpatient (CLI) | payer MEDICARE, BC, SELFPAY ==
--- OUTSIDE RECORDS SUMMARY | 2023-09-06 14:25 | XMS_ITS | Clinical Summary ---
Author Organization [facility] [facility] Address [place], [place] [address] Care Team Providers Care Family Preservation Officer Name Role Phone ClaudiaBeto Ivan FAUST Unavailable [phone] Sharif Nunez MD Unavailable [phone] Riley Camacho MD Unavailable [phone] Constanza Cardozo MD Primary Care Provider [phone] Allergies Active Allergy Reactions Criticality Noted Date [...] tablet by mouth once daily. 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 Obesity with body mass index 30 or greater 12/21 Arthritis, rheumatoid 08/17/2017 Overview: RA Sees Dr. Nunez at [facility] [phone] fax [phone] Last Assessment & Plan: I went over [...] & Plan: She is here today because [facility] [employer] will not supply her with 6 catheters /day. They told her that medicare would only cover 4 catheters/day. She only has 10 catheters left and needs a supply. I contacted Verónica Escalante NP [place] [facility]. She sees her on a routine basis. She will provide Vanessa with enough catheters to get by until her order from [facility] is delivered. She will drive to [place] to pickle maker the catheters. I had sent Dr. Lopez's order and visit note to [facility] in [place]. Renay Renee will process the order and [...] 08/15/2023 12:30 PM CDT Phone Office Visit [facility] [address] [place] [address] Eliseo Dias MD 08/04/2023 2:00 PM CDT Ancillary Procedure [facility] [address] [place] [address] 08/04/2023 Travel 08/02/2023 Orders Only [facility] Scanner 1 scan: (1-Ord) [facility], LOWER EXTREMITY BI INSUF, 08/02/2023 07/27/2023 Lab Requisition [facility] [phone] Clemencia Randall MD 07/12/2023 Orders Only [facility] [...] Comments Blood Pressure 148/62 05/01/2023 1:02 PM ENGLISH LANGUAGE LEARNER TUTOR Pulse 90 05/01/2023 1:02 PM ENGLISH LANGUAGE LEARNER TUTOR Temperature 37.2 ??C (98.9 ??F) 12/02/2021 11:04 AM C DT Respiratory Rate 16 05/01/2023 1:02 PM ENGLISH LANGUAGE LEARNER TUTOR Oxygen Saturation 98% 05/01/2023 1:02 PM ENGLISH LANGUAGE LEARNER TUTOR Inhaled Oxygen Concentration - - Weight 62.6 kg (138 lb) 05/01/2023 1:02 PM ENGLISH LANGUAGE LEARNER TUTOR Height 154.9 cm (5' 1) 05/01/2023 1:02 PM ENGLISH LANGUAGE LEARNER TUTOR Body Mass Index 26.07 05/01/2023 1:02 PM ENGLISH LANGUAGE LEARNER TUTOR Plan of Treatment Health Maintenance Due Date [...] Patient Record) Medical Devices Implanted Type Area Architectural Associate Device Identifier Shelf Expiration Date Model / Serial / Lot Lead Bladder 28cm Interstim Tined 3mm Spacing - [id number] Implanted:Qty: 1 on 05/04/2016 by Cesar Groves MD at [facility] N/A: Sacrum Medtronic Pain Therapy 04/25/2020 3889-28# / / [id number] Stimulator 7.7mm 14cc Interstim Ii - [id number] Implanted:Qty: 1 on 05/11/2016 by Cesar Groves MD at [facility] N/A: Sacrum Medtronic Pain Therapy 10/07/2017 3058# / / [id number] Cmnt Bone 40g Simplex P Non Atb Mv - [id number] Implanted:Qty: 2 on 07/12/2017 by Ignacio Mead MD at [facility] Right: Knee [employer] 04/26/2018 6191-1-010 # / / [id number] Cmnt Bone 40g Simplex P Non Atb Mv - [id number] Implanted:Qty: 1 on 07/12/2017 by Ignacio Mead MD at [facility] Right: Knee [employer] 04/26/2018 6191-1-010 # / / [id number] G6259-F-746 - [id number] Implanted:Qty: 1 on 07/12/2017 by Ignacio Mead MD at [facility] Right: Knee [facility] 04/27/2022 5551-G-350 / / [id number] Description:Triathlon X3 Asy mmetric patella M5444-B-824 - [id number] Implanted:Qty: 1 on 07/12/2017 by Ignacio Mead MD at [facility] Right: Knee [employer] 03/11/2022 5520-B-500 / / [id number] Description:Triathlon primar y tibial baseplate X4232-R-653 - [id number] Implanted:Qty: 1 on 07/12/2017 by Ignacio Mead MD at [facility] Right: Knee [employer] 05/21/2021 5510-F-502 / / [id number] Description:Triathlon mamta te retaining femoral J0018-J-867 - [id number] Implanted:Qty: 1 on 07/12/2017 by Ignacio Mead MD at [facility] Right: Knee 5531-G-50 9 / / [id number] Description:X3 triathlon CS INS Explanted Type Area Architectural Associate Device Identifier Shelf Expiration Date Model / Serial / Lot Lead Intrdcr Bladder Interstim - [id number] Explanted:Qty: 1 on 05/04/2016 by Cesar Groves MD at [facility] N/A: Sacrum Medtronic Pain Therapy 05/27/2017 3550-18# / / [id number] Procedures Procedure Name Priority Date/Time Associated Diagnosis [...] CDT Clemencia Randall MD LAB BILL ONLY [facility]AL LABORATORY [address] [place] [address], * PATH TISSUE EXAM (07/26/2023 3:16 PM CDT) Case Report Pathology Report ?Case: [id number] ? Authorizing Provider: ??Clemencia Randall MD ??Collected: ? 07/26/2023 1516 ? Ordering Location: ? [facility] ?Received: ?07/27/2023 1409 ? Pathologist: ? Priti Santana MD ? Specimen: ?Left Leg ? 07/28/2023 4:09 PM CDT [facility] LABORATORY-C ENTRAL LABORATORY Final Diagnosis A) SKIN, LEFT LEG NEAR WOUND, BIOPSY: 1. Granulation tissue with overlying reactive and inflamed epidermis 2. Dermal fibrin deposition and dystrophic calcification 3. Negative for malignancy 07/28/2023 4:09 PM CDT [facility] LABORAT[facility] ENTRAL LABORATORY Clinical Information 82-year-old female with abnormal tissue with calcium deposits near wound. History of rheumatoid arthritis. 07/28/2023 4:09 PM CDT [facility] ENTRAL LABORATORY Gross Description A) Received in formalin, labeled with the patient's name and left leg, is a 0.7 x 0.5 x 0.4 cm aggregate of reyes tissue fragments. ??The outer surface is firm brown-reyes. ??The specimen is entirely submitted in 1 cassette. TMO 07/27/2023 07/28/2023 4:09 PM CDT [facility] Microscopic Description The final diagnosis is based on microscopic examination of appropriate sections of all specimens. 07/28/2023 4:[address] [facility] Additional Information Interpreted at [facility] - [address] [facility] [address], [place] [address] 07/28/2023 4:09 PM CDT [facility] Other (Left Leg) 07/26/2023 3:16 PM CDT 07/27/2023 2:09 PM CDT Clemencia Randall MD PATHOLOGY[facility] [address] [place] [address], * SCAN-RADIOLOGY REPORT (07/12/2023 12:00 AM CDT) [...] greater than 5 years. Na Valdivia PA-C [facility] 10/11/2022 Narrative 10/11/2022 2:15 PM CDT For Patients: Results are automatically released to your [employer] account once available, in compliance with federal regulations. This means that you may see your results before your provider has had a chance to review them. Please allow 2-3 business days for your provider to comment on the results. XR DXA Bone Mineral Density (BMD) EXAM LOCATION: [facility] [address] [facility] [address] PATIENT NAME: Vanessa Andino DATE OF : [...] two scanners are made by the same automotive quality engineer. PROCEDURE: Dual-energy x-ray absorptiometry performed with [...] Documents on File Type Date Recorded Patient Plsql Developer Expl anation POLST 07/14/2017 8:01 AM 01/12/2017 Power of Management Accounts Manager 07/14/2017 7:57 AM 01/06 Healthcare Directive 07/14/2017 7:57 AM * Full Code (Latest Code Status on File) Date Activated Date Inactivated Comments 07/12/2017 7:10 AM 07/14/2017 4:57 PM * Full Code Date Activated Date Inactivated Comments 05/11/2016 10:33 AM 05/11/2016 7:12 PM * Full Code Date Activated Date Inactivated Comments 05/04/2016 7:01 AM 05/04/2016 3:07 PM Care Teams Family Preservation Officer Relationship Specialty Start Date End Date Constanza Cardozo MD [address] [facility] [address] PCP - General Family Practice 08/25/22 Claudia, CHRISTIANNE Wang Enterprise Application Developer 07/13/17 Sharif Nunez MD [address] [facility] [address] [place] [address] Rheumatology 10/08/21 Riley Camacho MD [address] [facility] [address] [place] [address] Surgery - Urology 08/25/22
== END 2023-09-06 14:20 | disposition home or self-care (01) ==
LOC: WOUND 14:19
PROVIDERS: PCP Family Medicine; Visit Provider Surgery
DX: I87.2 Venous insufficiency (chronic) (peripheral) (principal); L97.822 Non-pressure chronic ulcer of other part of left lower leg with fat layer exposed; M05.9 Rheumatoid arthritis with rheumatoid factor, unspecified; Z92.25 Personal history of immunosuppression therapy; M61.9 Calcification and ossification of muscle, unspecified
CPT/HCPCS: 97597

== ENCOUNTER 2023-09-13 14:11 | Outpatient (CLI) | payer MEDICARE, BC, SELFPAY ==
--- OUTSIDE RECORDS SUMMARY | 2023-09-13 14:23 | XMS_ITS | Clinical Summary ---
Author Organization [email or web address] [facility] Address [place], [place] [address] Care Team Providers Care Certified Physical Therapist Assistant Name Role Phone ClaudiaBeto Ivan FAUST Unavailable [phone] Sharif Nunez MD Unavailable [phone] Riley Camacho MD Unavailable [phone] Constanza Cardozo MD Primary Care Provider [phone] Allergies Active Allergy Reactions Criticality Noted Date [...] tablet by mouth once daily. 01/11/2010 Active multivitamin-passport application examiner als therapeutic tablet Take 1 tablet [...] weekly d/t ckd - Endo E-consult at [place] 10/09/2020 with recommendation to continue fosamax for [...] She has hearing aids ([facility] in [place]). Obesity with body mass index 30 or greater 12/21 Arthritis, rheumatoid 08/17/2017 Overview: RA Sees Dr. Nunez at [facility] [phone] fax [phone] Last Assessment & Plan: I went over [...] & Plan: [facility] /day. They told her that medicare would only cover 4 catheters/day. She only has 10 catheters left and needs a supply. I contacted Verónica Escalante NP [place] [facility]. She sees her on a routine basis. She will provide Vanessa with enough catheters to get by until her order from [facility] is delivered. She will drive to [place] to last picker the catheters. I had sent Dr. Lopez's order and visit note to [facility] in [place]. Renay Renee will process the order and [...] Encounters Date Type Department Care Team Description 09/11/2023 Telephone [facility] [address] [place] [address] Constanza Cardozo MD Health Maintenance Update (Blood Pressure Letter) 08/15/2023 12:30 PM CDT Phone Office Visit [facility] [address] [place] [address] [address] [place] [address] Eliseo Dias MD 08/04/2023 2:00 PM CDT Ancillary Procedure [facility] [address] [place] [address] 08/04/2023 Travel 08/02/2023 Orders Only [facility] Scanner 1 scan: (1-Ord) [facility] LOWER EXTREMITY BI INSUF, 08/02/2023 07/27/2023 Lab Requisition [facility] [phone] Clemencia Randall MD 07/12/2023 Orders Only [facility] Scanner 1 scan: (1-Ord) [facility], EXTREMITY LT ANKLE 2 VIEWS, 07/12/2023 from Last 3 Months Immunizations Name Administration Dates Next Due COVID-19 vaccine (Moderna 100mcg/0.5mL) SHUAN DE PAZ 08/25/2021,02/23/2021,08/03/2020,2020 COVID-19 vaccine (Pfizer-Bio NTech [...] Comments Blood Pressure 148/62 05/01/2023 1:02 PM HOME INSURANCE AGENT Pulse 90 05/01/2023 1:02 PM HOME INSURANCE AGENT Temperature 37.2 ??C (98.9 ??F) 12/02/2021 11:04 AM C DT Respiratory Rate 16 05/01/2023 1:02 PM HOME INSURANCE AGENT Oxygen Saturation 98% 05/01/2023 1:02 PM HOME INSURANCE AGENT Inhaled Oxygen Concentration - - Weight 62.6 kg (138 lb) 05/01/2023 1:02 PM HOME INSURANCE AGENT Height 154.9 cm (5' 1) 05/01/2023 1:02 PM HOME INSURANCE AGENT Body Mass Index 26.07 05/01/2023 1:02 PM HOME INSURANCE AGENT Plan of Treatment Health Maintenance Due Date [...] Patient Record) Medical Devices Implanted Type Area Soda Tester Device Identifier Shelf Expiration Date Model / Serial / Lot Lead Bladder 28cm Interstim Tined 3mm Spacing - [id number] Implanted:Qty: 1 on 05/04/2016 by Cesar Groves MD at [facility] N/A: Sacrum [employer]tronic Pain Therapy 04/25/2020 3889-28# / / [id number] Stimulator 7.7mm 14cc Interstim Ii - [id number] Implanted:Qty: 1 on 05/11/2016 by Cesar Groves MD at [facility] N/A: Sacrum [employer]onic Pain Therapy 10/07/2017 3058# / / [id number] Cmnt Bone 40g Simplex P Non Atb Mv - [id number] Implanted:Qty: 2 on 07/12/2017 by Ignacio Mead MD at [facility] Right: Knee [facility] 04/26/2018 6191-1-010 # / / [id number] Cmnt Bone 40g Simplex P Non Atb Mv - [id number] Implanted:Qty: 1 on 07/12/2017 by Ignacio Mead MD at [facility] Right: Knee [employer] [facility] 04/26/2018 6191-1-010 # / / [id number] U8090-P-244 - [id number] Implanted:Qty: 1 on 07/12/2017 by Ignacio Mead MD at [facility] Right: Knee [facility] 04/27/2022 5551-G-350 / / [id number] Description:Triathlon X3 Asy mmetric patella Y0900-M-108 - [id number] Implanted:Qty: 1 on 07/12/2017 by Ignacio Mead MD at [facility] Right: Knee [facility] 03/11/2022 5520-B-500 / / [id number] Description:Triathlon primar y tibial baseplate Y9446-G-796 - [id number] Implanted:Qty: 1 on 07/12/2017 by Ignacio Mead MD at [facility] Right: Knee [facility] 05/21/2021 5510-F-502 / / [id number] Description:Triathlon renéeia te retaining femoral V0272-V-105 - [id number] Implanted:Qty: 1 on 07/12/2017 by Ignacio Mead MD at [facility] Right: Knee 5531-G-50 9 / / [id number] Description:X3 triathlon CS INS Explanted Type Area Soda Tester Device Identifier Shelf Expiration Date Model / Serial / Lot Lead Intrdcr Bladder Interstim - [id number] Explanted:Qty: 1 on 05/04/2016 by Cesar Groves MD at [facility] N/A: Sacrum [employer]onic Pain Therapy 05/27/2017 3550-18# / / [id number] Procedures Procedure Name Priority Date/Time Associated Diagnosis [...] CDT Clemencia Randall MD LAB BILL ONLY [facility]AL LABORATORY [address] [place] [address], * PATH TISSUE EXAM (07/26/2023 3:16 PM CDT) Case Report Pathology Report ?Case: [id number] ? Authorizing Provider: ??Clemencia Randall MD ??Collected: ? 07/26/2023 1516 ? Ordering Location: ? [facility] ?Received: ?07/27/2023 1409 ? Pathologist: ? Priti Santana MD ? Specimen: ?Left Leg ? 07/28/2023 4:09 PM CDT [facility] LABORATORY-C ENTRAL LABORATORY Final Diagnosis A) SKIN, LEFT LEG NEAR WOUND, BIOPSY: 1. Granulation tissue with overlying reactive and inflamed epidermis 2. Dermal fibrin deposition and dystrophic calcification 3. Negative for malignancy 07/28/2023 4:09 PM CDT [facility] ENTRAL LABORATORY Clinical Information 82-year-old female with abnormal tissue with calcium deposits near wound. History of rheumatoid arthritis. 07/28/2023 4:09 PM CDT [facility] LABORATORY Gross Description A) Received in formalin, labeled with the patient's name and left leg, is a 0.7 x 0.5 x 0.4 cm aggregate of reyes tissue fragments. ??The outer surface is firm brown-reyes. ??The specimen is entirely submitted in 1 cassette. TMO 07/27/2023 07/28/2023 4:09 PM CDT [facility] ENTRAL LABORAT[facility] Microscopic Description The final diagnosis is based on microscopic examination of appropriate sections of all specimens. 07/28/2023 4:09 PM CDT [facility] EN[facility] Additional Information Interpreted at [facility] - [address] [facility] [address] [facility] [address], [place] [address] 07/28/2023 4:09 PM CDT [facility] EN[facility] LAB[facility] Other (Left Leg) 07/26/2023 3:16 PM CDT 07/27/2023 2:09 PM CDT Clemencia Randall MD PATHOLOGY/CYTOLO GY [facility] [address] [place] [address], * SCAN-RADIOLOGY REPORT (07/12/2023 12:00 AM CDT) [...] greater than 5 years. Na Valdivia PA-C [employer] 10/11/2022 Narrative 10/11/2022 2:15 PM CDT For Patients: Results are automatically released to your [facility] account once available, in compliance with federal regulations. This means that you may see your results before your provider has had a chance to review them. Please allow 2-3 business days for your provider to comment on the results. XR DXA Bone Mineral Density (BMD) EXAM LOCATION: [address] [address] PATIENT NAME: Vanessa Andino DATE OF : [...] two scanners are made by the same manager billing. PROCEDURE: Dual-energy x-ray absorptiometry performed with routine [...] Documents on File Type Date Recorded Patient Lcsw Alexandre stock POL 07/14/2017 8:01 AM 01/12/2017 Power of Roving Teller 07/14/2017 7:57 AM 01/06 Healthcare Directive 07/14/2017 7:57 AM * Full Code (Latest Code Status on File) Date Activated Date Inactivated Comments 07/12/2017 7:10 AM 07/14/2017 4:57 PM * Full Code Date Activated Date Inactivated Comments 05/11/2016 10:33 AM 05/11/2016 7:12 PM * Full Code Date Activated Date Inactivated Comments 05/04/2016 7:01 AM 05/04/2016 3:07 PM Care Teams Certified Physical Therapist Assistant Relationship Specialty Start Date End Date Constanza Cardozo MD [address] [place] [address] PCP - General Family Practice 08/25/22 [place], CHRISTIANNE Wang Terminal Operations Supervisor 07/13/17 Sharif Nunez MD [address] [facility] [address] [place] [address] Rheumatology 10/08/21 Riley Camacho MD [address] [place] [address] Surgery - Urology 08/25/22
== END 2023-09-13 14:12 | disposition home or self-care (01) ==
LOC: WOUND 14:21
PROVIDERS: PCP Family Medicine; Visit Provider Surgery
DX: I87.2 Venous insufficiency (chronic) (peripheral) (principal); L97.822 Non-pressure chronic ulcer of other part of left lower leg with fat layer exposed; L94.2 Calcinosis cutis
CPT/HCPCS: 15271; Q4121

== ENCOUNTER 2023-09-20 14:20 | Outpatient (CLI) | payer MEDICARE, BC, SELFPAY ==
--- OUTSIDE RECORDS SUMMARY | 2023-09-20 14:22 | XMS_ITS | Clinical Summary ---
Author Organization [facility] Address [place], [place] [address] Care Team Providers Care Garage Manager Name Role Phone ClaudiaBeto Ivan FAUST Unavailable [phone] Sharif Nunez MD Unavailable [phone] Riley Camacho MD Unavailable [phone] Constanza Cardozo MD Primary Care Provider Allergies [...] tablet by mouth once daily. 01/11/2010 Active multivitamin-textile examiner als therapeutic tablet Take 1 tablet [...] weekly d/t ckd - Endo E-consult at [place] 10/09/2020 with recommendation to continue fosamax for [...] She has hearing aids ([facility] in [place]). Obesity with body mass index 30 or greater 12/21 Arthritis, rheumatoid 08/17/2017 Overview: RA Sees Dr. Nunez at [facility] [phone] fax [phone] Last Assessment & Plan: I went over [...] & Plan: She is here today because [employer] will not supply her with 6 catheters /day. They told her that medicare would only cover 4 catheters/day. She only has 10 catheters left and needs a supply. I contacted Verónica Escalante NP [place] [facility]. She sees her on a routine basis. She will provide Vanessa with enough catheters to get by until her order from [facility] is delivered. She will drive to [place] to picker feeder the catheters. I had sent Dr. Lopez's order and visit note to [facility] in [place]. Renay Renee will process the order and [...] Type Department Care Team Description 09/11/2023 Telephone [facility] [address] [facility] [place] [address] Constanza Cardozo MD Health Maintenance Update (Blood Pressure Letter) 08/15/2023 12:30 PM CDT Phone Office Visit [facility] [address] [place] [address] Román N Carlos [address] [place] [address] Eliseo Dias MD 08/04/2023 2:00 PM CDT Ancillary Procedure [facility] [address] [place] [address] 08/04/2023 Travel 08/02/2023 Orders Only [facility] Scanner 1 scan: (1-Ord) [facility], US LOWER EXTREMITY BI INSUF, 08/02/2023 07/27/2023 Lab Requisition [facility] [phone] Clemencia Randall MD 07/12/2023 Orders Only [facility] Scanner 1 scan: (1-Ord) [facility], EXTREMITY LT ANKLE 2 VIEWS, [...] Comments Blood Pressure 148/62 05/01/2023 1:02 PM DANDY OPERATOR Pulse 90 05/01/2023 1:02 PM DANDY OPERATOR Temperature 37.2 ??C (98.9 ??F) 12/02/2021 11:04 AM C DT Respiratory Rate 16 05/01/2023 1:02 PM DANDY OPERATOR Oxygen Saturation 98% 05/01/2023 1:02 PM DANDY OPERATOR Inhaled Oxygen Concentration - - Weight 62.6 kg (138 lb) 05/01/2023 1:02 PM DANDY OPERATOR Height 154.9 cm (5' 1) 05/01/2023 1:02 PM DANDY OPERATOR Body Mass Index 26.07 05/01/2023 1:02 PM DANDY OPERATOR Plan of Treatment Health Maintenance Due [...] Patient Record) Medical Devices Implanted Type Area Assistant To The Vice President Device Identifier Shelf Expiration Date Model / Serial / Lot Lead Bladder 28cm Interstim Tined 3mm Spacing - [id number] Implanted:Qty: 1 on 05/04/2016 by Cesar Groves MD at [facility] N/A: Sacrum Medtronic Pain Therapy 04/25/2020 3889-28# / / [id number] Stimulator 7.7mm 14cc Interstim Ii - [id number] Implanted:Qty: 1 on 05/11/2016 by Cesar Groves MD at [facility] N/A: Sacrum Medtronic Pain Therapy 10/07/2017 3058# / / [id number] Cmnt Bone 40g Simplex P Non Atb Mv - [id number] Implanted:Qty: 2 on 07/12/2017 by Ignacio Mead MD at [facility] Right: Knee [facility] 04/26/2018 6191-1-010 # / / [id number] Cmnt Bone 40g Simplex P Non Atb Mv - [id number] Implanted:Qty: 1 on 07/12/2017 by Ignacio Mead MD at [facility] Right: Knee [employer] [facility] 04/26/2018 6191-1-010 # / / [id number] L9794-O-775 - [id number] Implanted:Qty: 1 on 07/12/2017 by Ignacio Mead MD at [facility] Right: Knee [facility] 04/27/2022 5551-G-350 / / [id number] Description:Triathlon X3 Asy mmetric patella Z2729-I-440 - [id number] Implanted:Qty: 1 on 07/12/2017 by Ignacio Mead MD at [facility] Right: Knee [facility] 03/11/2022 5520-B-500 / / [id number] Description:Triathlon primar y tibial baseplate Q6698-C-573 - [id number] Implanted:Qty: 1 on 07/12/2017 by Ignacio Mead MD at [facility] Right: Knee [facility] 05/21/2021 5510-F-502 / / [id number] Description:Triathlon renéeia te retaining femoral L2868-I-657 - [id number] Implanted:Qty: 1 on 07/12/2017 by Ignacio Mead MD at [facility] Right: Knee 5531-G-50 9 / / [id number] Description:X3 triathlon CS INS Explanted Type Area Assistant To The Vice President Device Identifier Shelf Expiration Date Model / Serial / Lot Lead Intrdcr Bladder Interstim - [id number] Explanted:Qty: 1 on 05/04/2016 by Cesar Groves MD at [facility] N/A: Sacrum Medtronic Pain Therapy 05/27/2017 3550-18# / / [id number] Procedures Procedure Name Priority Date/Time Associated Diagnosis [...] CDT Clemencia Randall MD LAB BILL ONLY [facility]-CENTRAL LABORATORY [address] [place] [address], * PATH TISSUE EXAM (07/26/2023 3:16 PM CDT) Case Report Pathology Report ?Case: [id number] ? Authorizing Provider: ??Clemencia Randall MD ??Collected: ? 07/26/2023 1516 ? Ordering Location: ? [facility] ?Received: ?07/27/2023 1409 ? Pathologist: ? Priti Santana MD ? Specimen: ?Left Leg ? 07/28/2023 4:09 PM CDT [facility] LABORATORY-C ENTRAL LABORATORY Final Diagnosis A) SKIN, LEFT LEG NEAR WOUND, BIOPSY: 1. Granulation tissue with overlying reactive and inflamed epidermis 2. Dermal fibrin deposition and dystrophic calcification 3. Negative for malignancy 07/28/2023 4:09 PM CDT [facility] LABORATORY-C ENTRAL LABORATORY Clinical Information 82-year-old female with abnormal tissue with calcium deposits near wound. History of rheumatoid arthritis. 07/28/2023 4:09 PM CDT [facility] LABORATORY-C ENTRAL LABORATORY Gross Description A) Received in formalin, labeled with the patient's name and left leg, is a 0.7 x 0.5 x 0.4 cm aggregate of reyes tissue fragments. ??The outer surface is firm brown-reyes. ??The specimen is entirely submitted in 1 cassette. TMO 07/27/2023 07/28/2023 4:09 PM CDT [facility]- ENTRAL LABORATORY Microscopic Description The final diagnosis is based on microscopic examination of appropriate sections of all specimens. 07/28/2023 4:09 PM CDT [facility]- ENTRAL LABORATORY Additional Information Interpreted at [facility] - [address] [facility] [address], [place] [address] 07/28/2023 4:09 PM CDT [facility] ENTR[facility] LABORAT[facility] Other (Left Leg) 07/26/2023 3:16 PM CDT 07/27/2023 2:09 PM CDT Clemencia Randall MD PATHOLOGY/CYTOLO GY [facility] [address] [place] [address], * SCAN-RADIOLOGY REPORT (07/12/2023 12:00 AM CDT) [...] greater than 5 years. Na Valdivia PA-C [facility] 10/11/2022 Narrative 10/11/2022 2:15 PM CDT For Patients: Results are automatically released to your [email or web address] account once available, in compliance with federal regulations. This means that you may see your results before your provider has had a chance to review them. Please allow 2-3 business days for your provider to comment on the results. XR DXA Bone Mineral Density (BMD) EXAM LOCATION: [address] [address] PATIENT NAME: Vanessa Andino DATE OF : [...] two scanners are made by the same brickmason contractor. PROCEDURE: Dual-energy x-ray absorptiometry performed with routine [...] Documents on File Type Date Recorded Patient Tractor Trailer Mechanic Alexandre stock POL 07/14/2017 8:01 AM 01/12/2017 Power of Manager [employer] 07/14/2017 7:57 AM 01/06 Healthcare Directive 07/14/2017 7:57 AM * Full Code (Latest Code Status on File) Date Activated Date Inactivated Comments 07/12/2017 7:10 AM 07/14/2017 4:57 PM * Full Code Date Activated Date Inactivated Comments 05/11/2016 10:33 AM 05/11/2016 7:12 PM * Full Code Date Activated Date Inactivated Comments 05/04/2016 7:01 AM 05/04/2016 3:07 PM Care Teams Garage Manager Relationship Specialty Start Date End Date Constanza Cardozo MD [address] [place] [address] PCP - General Family Practice 08/25/22 [place], CHRISTIANNE Wang Code Number Stamper 07/13/17 Sharif Nunez MD [address] [facility] [address] [place] [address] Rheumatology 10/08/21 Riley Camacho MD [address] [place] [address] Surgery - Urology 08/25/22
== END 2023-09-20 14:21 | disposition home or self-care (01) ==
PROVIDERS: PCP Family Medicine; Visit Provider Surgery
DX: I87.2 Venous insufficiency (chronic) (peripheral) (principal); L97.222 Non-pressure chronic ulcer of left calf with fat layer exposed; L94.2 Calcinosis cutis
CPT/HCPCS: G0463

== ENCOUNTER 2023-09-27 14:17 | Outpatient (CLI) | payer MEDICARE, BC, SELFPAY ==
--- OUTSIDE RECORDS SUMMARY | 2023-09-27 14:20 | XMS_ITS | Clinical Summary ---
Author Organization [facility] Address [place], [place] [address] Care Team Providers Care Manager Advertising Name Role Phone ClaudiaBeto Ivan FAUST Unavailable [phone] Sharif Nunez MD Unavailable [phone] Riley Camacho MD Unavailable [phone] Constanza Cardozo MD Primary Care Provider Allergies [...] tablet by mouth once daily. 01/11/2010 Active multivitamin-zinc miner als therapeutic tablet Take 1 tablet [...] weekly d/t ckd - Endo E-consult at [place] 10/09/2020 with recommendation to continue fosamax for [...] She has hearing aids ([facility] in [place]). Obesity with body mass index 30 or greater 12/21 Arthritis, rheumatoid 08/17/2017 Overview: RA Sees Dr. Nunez at [facility] [phone] fax [phone] Last Assessment & Plan: I went over [...] & Plan: She is here today because [facility] [employer] will not supply her with 6 catheters /day. They told her that medicare would only cover 4 catheters/day. She only has 10 catheters left and needs a supply. I contacted Verónica Escalante NP [place] [facility]. She sees her on a routine basis. She will provide Vanessa with enough catheters to get by until her order from [facility] is delivered. She will drive to [place] to pharmacy picking tech the catheters. I had sent Dr. Lopez's order and visit note to [facility] in [place]. Renay Renee will process the order and [...] Type Department Care Team Description 09/11/2023 Telephone [facility] [address] [place] [address] Constanza Cardozo MD Health Maintenance Update (Blood Pressure Letter) 08/15/2023 12:30 PM CDT Phone Office Visit [facility] Sleep [address] [place] [address] [address] [place] [address] Eliseo Dias MD 08/04/2023 2:00 PM CDT Ancillary Procedure [facility] [address] [place] [address] 08/04/2023 Travel 08/02/2023 Orders Only [facility] Scanner 1 scan: (1-Ord) [facility], US LOWER EXTREMITY BI INSUF, 08/02/2023 07/27/2023 Lab Requisition [facility] [phone] Clemencia Randall MD 07/12/2023 Orders Only [facility] Scanner 1 scan: (1-Ord) [facility], EXTREMITY LT ANKLE 2 VIEWS, 07/12/2023 [...] Comments Blood Pressure 148/62 05/01/2023 1:02 PM KITCHEN DESIGNER Pulse 90 05/01/2023 1:02 PM KITCHEN DESIGNER Temperature 37.2 ??C (98.9 ??F) 12/02/2021 11:04 AM C DT Respiratory Rate 16 05/01/2023 1:02 PM KITCHEN DESIGNER Oxygen Saturation 98% 05/01/2023 1:02 PM KITCHEN DESIGNER Inhaled Oxygen Concentration - - Weight 62.6 kg (138 lb) 05/01/2023 1:02 PM KITCHEN DESIGNER Height 154.9 cm (5' 1) 05/01/2023 1:02 PM KITCHEN DESIGNER Body Mass Index 26.07 05/01/2023 1:02 PM KITCHEN DESIGNER Plan of Treatment Health Maintenance Due Date [...] Patient Record) Medical Devices Implanted Type Area Financial Operations Consultant Device Identifier Shelf Expiration Date Model / Serial / Lot Lead Bladder 28cm Interstim Tined 3mm Spacing - [id number] Implanted:Qty: 1 on 05/04/2016 by Cesar Groves MD at [facility] N/A: Sacrum [employer]onic Pain Therapy 04/25/2020 3889-28# / / [id number] Stimulator 7.7mm 14cc Interstim Ii - [id number] Implanted:Qty: 1 on 05/11/2016 by Cesar Groves MD at [facility] N/A: Sacrum [employer]onic Pain Therapy 10/07/2017 3058# / / [id number] Cmnt Bone 40g Simplex P Non Atb Mv - [id number] Implanted:Qty: 2 on 07/12/2017 by Ignacio Mead MD at [facility] Right: Knee [facility] 04/26/2018 6191-1-010 # / / [id number] Cmnt Bone 40g Simplex P Non Atb Mv - [id number] Implanted:Qty: 1 on 07/12/2017 by Ignacio Mead MD at [facility] Right: Knee [facility] 04/26/2018 6191-1-010 # / / [id number] C3463-F-292 - [id number] Implanted:Qty: 1 on 07/12/2017 by Ignacio Mead MD at [facility] Right: Knee [facility] 04/27/2022 5551-G-350 / / [id number] Description:Triathlon X3 Asy mmetric patella I4965-M-404 - [id number] Implanted:Qty: 1 on 07/12/2017 by Ignacio Mead MD at [facility] Right: Knee [facility] 03/11/2022 5520-B-500 / / [id number] Description:Triathlon primar y tibial baseplate E7159-G-923 - [id number] Implanted:Qty: 1 on 07/12/2017 by Ignacio Mead MD at [facility] Right: Knee [facility] 05/21/2021 5510-F-502 / / [id number] Description:Triathlon renéeia te retaining femoral J9572-F-168 - [id number] Implanted:Qty: 1 on 07/12/2017 by Ignacio Mead MD at [facility] Right: Knee 5531-G-50 9 / / [id number] Description:X3 triathlon CS INS Explanted Type Area Financial Operations Consultant Device Identifier Shelf Expiration Date Model / Serial / Lot Lead Intrdcr Bladder Interstim - [id number] Explanted:Qty: 1 on 05/04/2016 by Cesar Groves MD at [facility] N/A: Sacrum Medtronic Pain Therapy 05/27/2017 3550-18# / / [id number] Procedures Procedure Name Priority Date/Time Associated Diagnosis [...] CDT Clemencia Randall MD LAB BILL ONLY [facility] LABORATORY-CENTRAL LABORATORY [address] [place] [address], * PATH TISSUE EXAM (07/26/2023 3:16 PM CDT) Case Report Pathology Report ?Case: [id number] ? Authorizing Provider: ??Clemencia Randall MD ??Collected: ? 07/26/2023 1516 ? Ordering Location: ? [facility] ?Received: ?07/27/2023 1409 ? Pathologist: ? Priti Santana MD ? Specimen: ?Left Leg ? 07/28/2023 4:09 PM CDT [facility] LABORATORY-C ENTRAL LABORATORY Final Diagnosis A) SKIN, LEFT LEG NEAR WOUND, BIOPSY: 1. Granulation tissue with overlying reactive and inflamed epidermis 2. Dermal fibrin deposition and dystrophic calcification 3. Negative for malignancy 07/28/2023 4:09 PM CDT [facility] LABORATORY-C ENTRAL LABORATORY Clinical Information 82-year-old female with abnormal tissue with calcium deposits near wound. History of rheumatoid arthritis. 07/28/2023 4:09 PM CDT [facility]-C ENTRAL LABORATORY Gross Description A) Received in formalin, labeled with the patient's name and left leg, is a 0.7 x 0.5 x 0.4 cm aggregate of reyes tissue fragments. ??The outer surface is firm brown-reyes. ??The specimen is entirely submitted in 1 cassette. TMO 07/27/2023 07/28/2023 4:09 PM CDT [facility]- ENTRAL LABORATORY Microscopic Description The final diagnosis is based on microscopic examination of appropriate sections of all specimens. 07/28/2023 4:09 PM CDT [facility]- ENTRAL LABORATORY Additional Information Interpreted at [facility] - [address] [facility] [address], [place] [address] 07/28/2023 4:09 PM CDT [facility] ENTRAL LABORATORY Other (Left Leg) 07/26/2023 3:16 PM CDT 07/27/2023 2:09 PM CDT Clemencia Randall MD PATHOLOGY/CYTOLO GY [facility] [address] [place] [address], * SCAN-RADIOLOGY REPORT (07/12/2023 12:00 AM CDT) [...] greater than 5 years. Na Valdivia PA-C [facility] 10/11/2022 Narrative 10/11/2022 2:15 PM CDT For Patients: Results are automatically released to your [facility] account once available, in compliance with federal regulations. This means that you may see your results before your provider has had a chance to review them. Please allow 2-3 business days for your provider to comment on the results. XR DXA Bone Mineral Density (BMD) EXAM LOCATION: [address] [address] PATIENT NAME: Vanessa Andino DATE OF : [...] two scanners are made by the same parachute officer. PROCEDURE: Dual-energy x-ray absorptiometry performed with routine [...] Documents on File Type Date Recorded Patient Supervisor Firearms Alexandre stock POL 07/14/2017 8:01 AM 01/12/2017 Power of Copier Repair Technician 07/14/2017 7:57 AM 01/06 Healthcare Directive 07/14/2017 7:57 AM * Full Code (Latest Code Status on File) Date Activated Date Inactivated Comments 07/12/2017 7:10 AM 07/14/2017 4:57 PM * Full Code Date Activated Date Inactivated Comments 05/11/2016 10:33 AM 05/11/2016 7:12 PM * Full Code Date Activated Date Inactivated Comments 05/04/2016 7:01 AM 05/04/2016 3:07 PM Care Teams Manager Advertising Relationship Specialty Start Date End Date Constanza Cardozo MD [address] [place] [address] PCP - General Family Practice 08/25/22 [place], CHRSITIANNE Wang Pork Cutlet Maker 07/13/17 Sharif Nunez MD [address] [facility] [address] [address] Rheumatology 10/08/21 Riley Camacho MD [address] [address] Surgery - Urology 08/25/22
== END 2023-09-27 14:18 | disposition home or self-care (01) ==
PROVIDERS: PCP Family Medicine; Visit Provider Surgery
DX: I87.2 Venous insufficiency (chronic) (peripheral) (principal); L97.322 Non-pressure chronic ulcer of left ankle with fat layer exposed; L94.2 Calcinosis cutis; M05.9 Rheumatoid arthritis with rheumatoid factor, unspecified
CPT/HCPCS: G0463

== ENCOUNTER 2023-10-04 14:16 | Outpatient (CLI) | payer MEDICARE, BC, SELFPAY ==
--- OUTSIDE RECORDS SUMMARY | 2023-10-04 14:19 | XMS_ITS | Clinical Summary ---
Author Organization [facility] Address [place], [place] [address] Care Team Providers Care Signal Maintenance Technician Name Role Phone ClaudiaBeto Ivan FAUST Unavailable [phone] Sharif Nunez MD Unavailable [phone] Riley Camacho MD Unavailable [phone] Constanza Cardozo MD Primary Care Provider Allergies [...] tablet by mouth once daily. 01/11/2010 Active multivitamin-white shoe examiner als therapeutic tablet Take 1 tablet [...] weekly d/t ckd - Endo E-consult at [place] 10/09/2020 with recommendation to continue fosamax for [...] She has hearing aids ([facility] in [place]). Obesity with body mass index 30 or greater 12/21 Arthritis, rheumatoid 08/17/2017 Overview: RA Sees Dr. Nunez at [facility] [phone] fax [phone] Last Assessment & Plan: I went over [...] & Plan: She is here today [facility] [employer] will not supply her with 6 catheters /day. They told her that medicare would only cover 4 catheters/day. She only has 10 catheters left and needs a supply. I contacted Verónica Escalante NP [place] [facility]. She sees her on a routine basis. She will provide Vanessa with enough catheters to get by until her order from [facility] is delivered. She will drive to [place] to citrus picker the catheters. I had sent Dr. Lopez's order and visit note to [facility] in [place]. Renay Renee will process the order and [...] Type Department Care Team Description 09/11/2023 Telephone [facility] [address] [facility] [address] Constanza Cardozo MD Health Maintenance Update (Blood Pressure Letter) 08/15/2023 12:30 PM CDT Phone Office Visit [facility] [address] [place] [address] [address] [place] [address] Eliseo Dias MD 08/04/2023 2:00 PM CDT Ancillary Procedure [facility] [address] [place] [address] 08/04/2023 Travel 08/02/2023 Orders Only [facility] Scanner 1 scan: (1-Ord) [facility], US LOWER EXTREMITY BI INSUF, 08/02/2023 07/27/2023 Lab Requisition [facility] [phone] Clemencia Randall MD 07/12/2023 Orders Only [facility] Scanner 1 scan: (1-Ord) [facility], EXTREMITY LT ANKLE 2 VIEWS, 07/12/2023 from [...] Comments Blood Pressure 148/62 05/01/2023 1:02 PM DIRECTOR PERIOPERATIVE Pulse 90 05/01/2023 1:02 PM DIRECTOR PERIOPERATIVE Temperature 37.2 ??C (98.9 ??F) 12/02/2021 11:04 AM C DT Respiratory Rate 16 05/01/2023 1:02 PM DIRECTOR PERIOPERATIVE Oxygen Saturation 98% 05/01/2023 1:02 PM DIRECTOR PERIOPERATIVE Inhaled Oxygen Concentration - - Weight 62.6 kg (138 lb) 05/01/2023 1:02 PM DIRECTOR PERIOPERATIVE Height 154.9 cm (5' 1) 05/01/2023 1:02 PM DIRECTOR PERIOPERATIVE Body Mass Index 26.07 05/01/2023 1:02 PM DIRECTOR PERIOPERATIVE Plan of Treatment Health Maintenance Due Date [...] Patient Record) Medical Devices Implanted Type Area Checkman Device Identifier Shelf Expiration Date Model / Serial / Lot Lead Bladder 28cm Interstim Tined 3mm Spacing - [id number] Implanted:Qty: 1 on 05/04/2016 by Cesar Groves MD at [facility] N/A: Sacrum Medtronic Pain Therapy 04/25/2020 3889-28# / / [id number] Stimulator 7.7mm 14cc Interstim Ii - [id number] Implanted:Qty: 1 on 05/11/2016 by Cesar Groves MD at [facility] N/A: Sacrum Medtronic Pain Therapy 10/07/2017 3058# / / [id number] Cmnt Bone 40g Simplex P Non Atb Mv - [id number] Implanted:Qty: 2 on 07/12/2017 by Ignacio Mead MD at [facility] Right: Knee [employer] 04/26/2018 6191-1-010 # / / [id number] Cmnt Bone 40g Simplex P Non Atb Mv - [id number] Implanted:Qty: 1 on 07/12/2017 by Ignacio Mead MD at [facility] Right: Knee [employer] 04/26/2018 6191-1-010 # / / [id number] J5451-S-650 - [id number] Implanted:Qty: 1 on 07/12/2017 by Ignacio Mead MD at [facility] Right: Knee [employer] [facility] 04/27/2022 5551-G-350 / / [id number] Description:Triathlon X3 Asy mmetric patella L9225-K-437 - [id number] Implanted:Qty: 1 on 07/12/2017 by Ignacio Mead MD at [facility] Right: Knee [facility] 03/11/2022 5520-B-500 / / [id number] Description:Triathlon primar y tibial baseplate R4135-E-479 - [id number] Implanted:Qty: 1 on 07/12/2017 by Ignacio Mead MD at [facility] Right: Knee [employer] [facility] 05/21/2021 5510-F-502 / / [id number] Description:Triathlon renéeia te retaining femoral V0189-K-025 - [id number] Implanted:Qty: 1 on 07/12/2017 by Ignacio Mead MD at [facility] Right: Knee 5531-G-50 9 / / [id number] Description:X3 triathlon CS INS Explanted Type Area Checkman Device Identifier Shelf Expiration Date Model / Serial / Lot Lead Intrdcr Bladder Interstim - [id number] Explanted:Qty: 1 on 05/04/2016 by Cesar Groves MD at [facility] N/A: Sacrum Medtronic Pain Therapy 05/27/2017 3550-18# / / [id number] Procedures Procedure Name Priority Date/Time Associated Diagnosis [...] MD LAB BILL ONLY [facility] LAB[facility] [address] [place] [address], * PATH TISSUE EXAM (07/26/2023 3:16 PM CDT) Case Report Pathology Report ?Case: [id number] ? Authorizing Provider: ??Clemencia Randall MD ??Collected: ? 07/26/2023 1516 ? Ordering Location: ? [facility] ?Received: ?07/27/2023 1409 ? Pathologist: ? Priti Santana MD ? Specimen: ?Left Leg ? 07/28/2023 4:09 PM CDT [facility] ENTRAL LABORATORY Final Diagnosis A) SKIN, LEFT LEG NEAR WOUND, BIOPSY: 1. Granulation tissue with overlying reactive and inflamed epidermis 2. Dermal fibrin deposition and dystrophic calcification 3. Negative for malignancy 07/28/2023 4:09 PM CDT [facility] LAB[facility] Clinical Information 82-year-old female with abnormal tissue with calcium deposits near wound. History of rheumatoid arthritis. 07/28/2023 4:09 PM CDT [facility] Gross Description A) Received in formalin, labeled with the patient's name and left leg, is a 0.7 x 0.5 x 0.4 cm aggregate of reyes tissue fragments. ??The outer surface is firm brown-reyes. ??The specimen is entirely submitted in 1 cassette. TMO 07/27/2023 07/28/2023 4:09 PM CDT [facility]- ENTRAL LABORATORY Microscopic Description The final diagnosis is based on microscopic examination of appropriate sections of all specimens. 07/28/2023 4:09 PM CDT [facility]- ENTRAL LABORATORY Additional Information Interpreted at [facility] - [address] [facility] [address] [address] 07/28/2023 4:09 PM CDT [facility] ENTRAL LABORATORY Other (Left Leg) 07/26/2023 3:16 PM CDT 07/27/2023 2:09 PM CDT Clemencia Randall MD PATHOLOGY/CYTOLO GY [facility] [address] [place] [address], * SCAN-RADIOLOGY REPORT (07/12/2023 12:00 AM CDT) [...] greater than 5 years. Na Valdivia PA-C [facility] 10/11/2022 Narrative 10/11/2022 2:15 PM CDT For Patients: Results are automatically released to your [facility] ([employer]) account once available, in compliance with federal regulations. This means that you may see your results before your provider has had a chance to review them. Please allow 2-3 business days for your provider to comment on the results. XR DXA Bone Mineral Density (BMD) EXAM LOCATION: [address] [address] PATIENT NAME: Vanessa Andino DATE OF : [...] two scanners are made by the same mental hygienist. PROCEDURE: Dual-energy x-ray absorptiometry performed with routine [...] Documents on File Type Date Recorded Patient Physical Fitness Trainer Alexandre stock POL 07/14/2017 8:01 AM 01/12/2017 Power of Multimedia Educational Specialist 07/14/2017 7:57 AM 01/06 Healthcare Directive 07/14/2017 7:57 AM * Full Code (Latest Code Status on File) Date Activated Date Inactivated Comments 07/12/2017 7:10 AM 07/14/2017 4:57 PM * Full Code Date Activated Date Inactivated Comments 05/11/2016 10:33 AM 05/11/2016 7:12 PM * Full Code Date Activated Date Inactivated Comments 05/04/2016 7:01 AM 05/04/2016 3:07 PM Care Teams Signal Maintenance Technician Relationship Specialty Start Date End Date Constanza Cardozo MD [address] [place] [address] PCP - General Family Practice 08/25/22 [place], CHRISTIANNE Wang Casting Machine Set Up Operator 07/13/17 Sharif Nunez MD [address] [facility] [address] [place] [address] Rheumatology 10/08/21 Riley Camacho MD [address] [place] [address] Surgery - Urology 08/25/22
== END 2023-10-04 14:17 | disposition home or self-care (01) ==
LOC: WOUND 14:16
PROVIDERS: PCP Family Medicine; Visit Provider Surgery
DX: I87.2 Venous insufficiency (chronic) (peripheral) (principal); L97.822 Non-pressure chronic ulcer of other part of left lower leg with fat layer exposed; L94.2 Calcinosis cutis; M05.9 Rheumatoid arthritis with rheumatoid factor, unspecified; N18.30 Chronic kidney disease, stage 3 unspecified
CPT/HCPCS: 97597

== ENCOUNTER 2023-10-11 14:21 | Outpatient (CLI) | payer MEDICARE, BC, SELFPAY ==
--- OUTSIDE RECORDS SUMMARY | 2023-10-11 14:23 | XMS_ITS | Clinical Summary ---
Author Organization [employer] [facility] Address [place], [place] [address] Care Team Providers Care Collarette Separator Name Role Phone ClaudiaBeto Ivan FAUST Unavailable [phone] Sharif Nunez MD Unavailable [phone] Riley Camacho MD Unavailable [phone] Constanza Cardozo MD Primary Care Provider Allergies [...] tablet by mouth once daily. 01/11/2010 Active multivitamin-securities compliance examiner als therapeutic tablet Take 1 tablet [...] weekly d/t ckd - Endo E-consult at [place] 10/09/2020 with recommendation to continue fosamax for [...] has hearing aids ([facility] in [place]). Obesity with body mass index 30 or greater 12/21 Arthritis, rheumatoid 08/17/2017 Overview: RA Sees Dr. Nunez at [facility] [phone] fax [phone] Last Assessment & Plan: I went over [...] & Plan: [facility] [employer] will not supply her with 6 catheters /day. They told her that medicare would only cover 4 catheters/day. She only has 10 catheters left and needs a supply. I contacted Verónica Escalante NP [place] [facility]. She sees her on a routine basis. She will provide Vanessa with enough catheters to get by until her order from [facility] is delivered. She will drive to [place] to pickling machine operator the catheters. I had sent Dr. Lopez's order and visit note to [facility] in [place]. Renay Renee will process the order and [...] Type Department Care Team Description 09/11/2023 Telephone [facility] [address] [place] [address] Constanza Cardozo MD Health Maintenance Update (Blood Pressure Letter) 08/15/2023 12:30 PM CDT Phone Office Visit [facility] [address] [place] [address] [address] [place] [address] Eliseo Dias MD 08/04/2023 2:00 PM CDT Ancillary Procedure [facility] [address] [place] [address] 08/04/2023 Travel 08/02/2023 Orders Only [facility] Scanner 1 scan: (1-Ord) [facility], US LOWER EXTREMITY BI INSUF, 08/02/2023 07/27/2023 Lab Requisition [facility] [phone] Clemencia Randall MD 07/12/2023 Orders Only [facility] Scanner 1 scan: (1-Ord) [facility], EXTREMITY LT ANKLE 2 VIEWS, 07/12/2023 [...] Comments Blood Pressure 148/62 05/01/2023 1:02 PM BROKE MAN Pulse 90 05/01/2023 1:02 PM BROKE MAN Temperature 37.2 ??C (98.9 ??F) 12/02/2021 11:04 AM C DT Respiratory Rate 16 05/01/2023 1:02 PM BROKE MAN Oxygen Saturation 98% 05/01/2023 1:02 PM BROKE MAN Inhaled Oxygen Concentration - - Weight 62.6 kg (138 lb) 05/01/2023 1:02 PM BROKE MAN Height 154.9 cm (5' 1) 05/01/2023 1:02 PM BROKE MAN Body Mass Index 26.07 05/01/2023 1:02 PM BROKE MAN Plan of Treatment Health Maintenance Due Date [...] Patient Record) Medical Devices Implanted Type Area Sourcing Internship Device Identifier Shelf Expiration Date Model / Serial / Lot Lead Bladder 28cm Interstim Tined 3mm Spacing - [id number] Implanted:Qty: 1 on 05/04/2016 by Cesar Groves MD at [facility] N/A: Sacrum Med[employer]onic Pain Therapy 04/25/2020 3889-28# / / [id number] Stimulator 7.7mm 14cc Interstim Ii - [id number] Implanted:Qty: 1 on 05/11/2016 by Cesar Groves MD at [facility] N/A: Sacrum [employer] Pain Therapy 10/07/2017 3058# / / [id number] Cmnt Bone 40g Simplex P Non Atb Mv - [id number] Implanted:Qty: 2 on 07/12/2017 by Ignacio Mead MD at Right: Knee [facility] 04/26/2018 6191-1-010 # / / [id number] Cmnt Bone 40g Simplex P Non Atb Mv - [id number] Implanted:Qty: 1 on 07/12/2017 by Ignacio Mead MD at Right: Knee [facility] 04/26/2018 6191-1-010 # / / [id number] W8054-U-129 - [id number] Implanted:Qty: 1 on 07/12/2017 by Ignacio Mead MD at Right: Knee [facility] 04/27/2022 5551-G-350 / / [id number] Description:Triathlon X3 Asy mmetric patella U7631-C-906 - [id number] Implanted:Qty: 1 on 07/12/2017 by Ignacio Mead MD at Right: Knee [facility] 03/11/2022 5520-B-500 / / [id number] Description:Triathlon primar y tibial baseplate I5579-B-212 - [id number] Implanted:Qty: 1 on 07/12/2017 by Ignacio Mead MD at Right: Knee [facility] 05/21/2021 5510-F-502 / / [id number] Description:Triathlon renéeia te retaining femoral R9575-F-953 - [id number] Implanted:Qty: 1 on 07/12/2017 by Ignacio Mead MD at Right: Knee 5531-G-50 9 / / [id number] Description:X3 triathlon CS INS Explanted Type Area Sourcing Internship Device Identifier Shelf Expiration Date Model / Serial / Lot Lead Intrdcr Bladder Interstim - [id number] Explanted:Qty: 1 on 05/04/2016 by Cesar Groves MD at [facility] N/A: Sacrum [employer] Pain Therapy 05/27/2017 3550-18# / / [id number] Procedures Procedure Name Priority Date/Time Associated Diagnosis [...] CDT Clemencia Randall MD LAB BILL ONLY [facility]ORAT[facility]-CENTRAL LABORATORY [address] [place] [address], * PATH TISSUE EXAM (07/26/2023 3:16 PM CDT) Case Report Pathology Report ?Case: [id number] ? Authorizing Provider: ??Clemencia Randall MD ??Collected: ? 07/26/2023 1516 ? Ordering Location: ? [facility] ?Received: ?07/27/2023 1409 ? Pathologist: ? Priti Santana MD ? Specimen: ?Left Leg ? 07/28/2023 4:09 PM CDT [facility]-C ENTRAL LABORATORY Final Diagnosis A) SKIN, LEFT LEG NEAR WOUND, BIOPSY: 1. Granulation tissue with overlying reactive and inflamed epidermis 2. Dermal fibrin deposition and dystrophic calcification 3. Negative for malignancy 07/28/2023 4:09 PM CDT [facility] ENTRAL LABORATORY Clinical Information 82-year-old female with abnormal tissue with calcium deposits near wound. History of rheumatoid arthritis. 07/28/2023 4:09 PM CDT [facility] ENTRAL LABORATORY Gross Description A) Received [...] SYSTEM- ENTRAL LABORATORY Additional Information Interpreted at [facility] - [address] [facility] [address], [place] [address] 07/28/2023 4:09 PM CDT [facility] EN[facility] LAB[facility] Other (Left Leg) 07/26/2023 3:16 PM CDT 07/27/2023 2:09 PM CDT Clemencia Randall MD PATHOLOGY/CYTOLO GY [facility] [address] [place] [address], * SCAN-RADIOLOGY REPORT (07/12/2023 12:00 AM CDT) [...] greater than 5 years. Na Valdivia PA-C [facility] 10/11/2022 Narrative 10/11/2022 2:15 PM CDT For Patients: Results are automatically released to your [facility] ([employer]) account once available, in compliance with federal regulations. This means that you may see your results before your provider has had a chance to review them. Please allow 2-3 business days for your provider to comment on the results. XR DXA Bone Mineral Density (BMD) EXAM LOCATION: [address] [address] PATIENT NAME: Vanessa Andino DATE OF : [...] two scanners are made by the same account development specialist. PROCEDURE: Dual-energy x-ray absorptiometry performed with routine [...] Documents on File Type Date Recorded Patient Aircraft Avionics Technician Alexandre stock POL 07/14/2017 8:01 AM 01/12/2017 Power of Specimen Collector 07/14/2017 7:57 AM 01/06 Healthcare Directive 07/14/2017 7:57 AM * Full Code (Latest Code Status on File) Date Activated Date Inactivated Comments 07/12/2017 7:10 AM 07/14/2017 4:57 PM * Full Code Date Activated Date Inactivated Comments 05/11/2016 10:33 AM 05/11/2016 7:12 PM * Full Code Date Activated Date Inactivated Comments 05/04/2016 7:01 AM 05/04/2016 3:07 PM Care Teams Collarette Separator Relationship Specialty Start Date End Date Constanza Cardozo MD [address] [place] [address] PCP - General Family Practice 08/25/22 [place], CHRISTIANNE Wang Implant Coordinator 07/13/17 Sharif Nunez MD [address] [facility] [address] [address] Rheumatology 10/08/21 Riley Camacho MD [address] [address] Surgery - Urology 08/25/22
== END 2023-10-11 14:22 | disposition home or self-care (01) ==
LOC: WOUND 14:22
PROVIDERS: PCP Family Medicine; Visit Provider Surgery
DX: I87.2 Venous insufficiency (chronic) (peripheral) (principal); L97.822 Non-pressure chronic ulcer of other part of left lower leg with fat layer exposed; L94.2 Calcinosis cutis
CPT/HCPCS: 97597

== ENCOUNTER 2023-10-18 14:24 | Outpatient (CLI) | payer MEDICARE, BC, SELFPAY ==
--- OUTSIDE RECORDS SUMMARY | 2023-10-18 14:26 | XMS_ITS | Clinical Summary ---
Author Organization [employer] s & [employer] Affiliates Address [place], [place] [address] Care Team Providers Care Cnc Manufacturing Engineer Name Role Phone ClaudiaBeto Ivan FAUST Unavailable [phone] Sharif Nunez MD Unavailable [phone] Riley Camacho MD Unavailable [phone] Constanza Cardozo MD Primary Care Provider Allergies [...] tablet by mouth once daily. 01/11/2010 Active multivitamin-blasting gang miner als therapeutic tablet Take 1 tablet [...] weekly d/t ckd - Endo E-consult at [place] 10/09/2020 with recommendation to continue fosamax for [...] She has hearing aids ([facility] in [place]). Obesity with body mass index 30 or greater 12/21 Arthritis, rheumatoid 08/17/2017 Overview: RA Sees Dr. Nunez at [facility] [phone] fax [phone] Last Assessment & Plan: I went over [...] & Plan: She is here today because [employer] [facility] not [facility] her with 6 catheters /day. They told her that medicare would only cover 4 catheters/day. She only has 10 catheters left and needs a supply. I contacted Verónica Escalante NP [place] [facility]. She sees her on a routine basis. She will provide Vanessa with enough catheters to get by until her order from [facility] is delivered. She will drive to [place] to pickler helper the catheters. I had sent Dr. Lopez's order and visit note to [facility] in [place]. Renay Renee will process the order and [...] Department Care Team Description 09/11/2023 Telephone [facility] [address] [place] [facility] [address] Constanza Cardozo MD Health Maintenance Update (Blood Pressure Letter) 08/15/2023 12:30 PM CDT Phone Office Visit [facility] [address] [place] [address] Rom[address] N [address] [place] [address] Eliseo Dias MD 08/04/2023 2:00 PM CDT Ancillary Procedure [facility] [address] [place] [address] 08/04/2023 Travel 08/02/2023 Orders Only [facility] Scanner 1 scan: (1-Ord) [facility] LOWER EXTREMITY BI INSUF, 08/02/2023 07/27/2023 Lab Requisition [facility] [phone] Clemencia Randall MD from Last 3 Months Immunizations Name Administration [...] Comments Blood Pressure 148/62 05/01/2023 1:02 PM PRINT COLOR MATCHER Pulse 90 05/01/2023 1:02 PM PRINT COLOR MATCHER Temperature 37.2 ??C (98.9 ??F) 12/02/2021 11:04 AM C DT Respiratory Rate 16 05/01/2023 1:02 PM PRINT COLOR MATCHER Oxygen Saturation 98% 05/01/2023 1:02 PM PRINT COLOR MATCHER Inhaled Oxygen Concentration - - Weight 62.6 kg (138 lb) 05/01/2023 1:02 PM PRINT COLOR MATCHER Height 154.9 cm (5' 1) 05/01/2023 1:02 PM PRINT COLOR MATCHER Body Mass Index 26.07 05/01/2023 1:02 PM PRINT COLOR MATCHER Plan of Treatment Health Maintenance Due Date [...] Patient Record) Medical Devices Implanted Type Area Dealer Analyst Device Identifier Shelf Expiration Date Model / Serial / Lot Lead Bladder 28cm Interstim Tined 3mm Spacing - [id number] Implanted:Qty: 1 on 05/04/2016 by Cesar Groves MD at [facility] N/A: Sacrum Medtronic Pain Therapy 04/25/2020 3889-28# / / [id number] Stimulator 7.7mm 14cc Interstim Ii - [id number] Implanted:Qty: 1 on 05/11/2016 by Cesar Groves MD at [facility] N/A: Sacrum Medtronic Pain Therapy 10/07/2017 3058# / / [id number] Cmnt Bone 40g Simplex P Non Atb Mv - [id number] Implanted:Qty: 2 on 07/12/2017 by Ignacio Mead MD at [facility] Right: Knee [employer] 04/26/2018 6191-1-010 # / / [id number] Cmnt Bone 40g Simplex P Non Atb Mv - [id number] Implanted:Qty: 1 on 07/12/2017 by Ignacio Mead MD at [facility] Right: Knee [employer] 04/26/2018 6191-1-010 # / / [id number] B5339-Z-811 - [id number] Implanted:Qty: 1 on 07/12/2017 by Ignacio Mead MD at [facility] Right: Knee [employer] 04/27/2022 5551-G-350 / / [id number] Description:Triathlon X3 Asy mmetric patella Q8871-W-576 - [id number] Implanted:Qty: 1 on 07/12/2017 by Ignacio Mead MD at [facility] Right: Knee [employer] 03/11/2022 5520-B-500 / / [id number] Description:Triathlon primar y tibial baseplate D5749-M-047 - [id number] Implanted:Qty: 1 on 07/12/2017 by Ignacio Mead MD at [facility] Right: Knee [employer] 05/21/2021 5510-F-502 / / [id number] Description:Maddie oleary te retaining femoral L1704-C-156 - [id number] Implanted:Qty: 1 on 07/12/2017 by Ignacio Mead MD at [facility] Right: Knee 5531-G-50 9 / / [id number] Description:X3 triathlon CS INS Explanted Type Area Dealer Analyst Device Identifier Shelf Expiration Date Model / Serial / Lot Lead Intrdcr Bladder Interstim - [id number] Explanted:Qty: 1 on 05/04/2016 by Cesar Groves MD at [facility] N/A: Sacrum Medtronic Pain Therapy 05/27/2017 3550-18# / / [id number] Procedures Procedure Name Priority Date/Time Associated Diagnosis Comments CT CHEST WO Routine 08/04/2023 2:22 PM CDT Multiple lung nodules Rheumatoid arthritis, involving unspecified site, unspecified whether rheumatoid factor present (HC) SCAN-ULTRASOUND REPORT 08/02/2023 12:00 AM CDT LAB TRACKING EVENT Routine 07/26/2023 3: 16 PM CDT PATH TISSUE EXAM Routine 07/26/2023 3:16 PM CDT XR DXA BONE DENSITY 2 SITES [...] CDT Clemencia Randall MD LAB BILL ONLY [facility] LAB[facility] [address] [place] [address], * PATH TISSUE EXAM (07/26/2023 3:16 PM CDT) Case Report Pathology Report ?Case: [id number] ? Authorizing Provider: ??Clemencia Randall MD ??Collected: ? 07/26/2023 1516 ? Ordering Location: ? [facility] ?Received: ?07/27/2023 1409 ? Pathologist: ? Priti Santana MD ? Specimen: ?Left Leg ? 07/28/2023 4:09 PM CDT [facility]OR[facility]-C ENTRAL LABORATORY Final Diagnosis A) SKIN, LEFT LEG NEAR WOUND, BIOPSY: 1. Granulation tissue with overlying reactive and inflamed epidermis 2. Dermal fibrin deposition and dystrophic calcification 3. Negative for malignancy 07/28/2023 4:09 PM CDT [facility]OR[facility] ENTRAL LABORATORY Clinical Information 82-year-old female with abnormal tissue with calcium deposits near wound. History of rheumatoid arthritis. 07/28/2023 4:09 PM CDT [facility] LAB[facility] Gross Description A) Received in formalin, labeled with the patient's name and left leg, is a 0.7 x 0.5 x 0.4 cm aggregate of reyes tissue fragments. ??The outer surface is firm brown-reyes. ??The specimen is entirely submitted in 1 cassette. TMO 07/27/2023 07/28/2023 4:09 PM CDT [facility]-C ENTRAL LABORATORY Microscopic Description The final diagnosis is based on microscopic examination of appropriate sections of all specimens. 07/28/2023 4:09 PM CDT [facility] [employer] LABORATORY-C ENTRND LABORATORY Additional Information Interpreted at [facility] [employer] [facility] - [address] [facility] [address], [place] [address] 07/28/2023 4:09 PM CDT [facility]-C ENTRAL LABORATORY Other (Left Leg) 07/26/2023 3:16 PM CDT 07/27/2023 2:09 PM CDT Clemencia Randall MD PATHOLOGY/CYTOLO GY [facility] [address] [place] [address], * (ABNORMAL) XR DXA BONE DENSITY 2 [...] greater than 5 years. Na Valdivia PA-C [facility] 10/11/2022 Narrative 10/11/2022 2:15 PM CDT For Patients: Results are automatically released to your [facility] account once available, in compliance with federal regulations. This means that you may see your results before your provider has had a chance to review them. Please allow 2-3 business days for your provider to comment on the results. XR DXA Bone Mineral Density (BMD) EXAM LOCATION: [address] [place] [address] PATIENT NAME: Vanessa Andino DATE OF : [...] two scanners are made by the same health unit supervisor. PROCEDURE: Dual-energy x-ray absorptiometry performed with [...] Documents on File Type Date Recorded Patient Salesperson Wigs Expl anation POLST 07/14/2017 8:01 AM 01/12/2017 Power of Assistant Football Coach 07/14/2017 7:57 AM 01/06 Healthcare Directive 07/14/2017 7:57 AM * Full Code (Latest Code Status on File) Date Activated Date Inactivated Comments 07/12/2017 7:10 AM 07/14/2017 4:57 PM * Full Code Date Activated Date Inactivated Comments 05/11/2016 10:33 AM 05/11/2016 7:12 PM * Full Code Date Activated Date Inactivated Comments 05/04/2016 7:01 AM 05/04/2016 3:07 PM Care Teams Cnc Manufacturing Engineer Relationship Specialty Start Date End Date Constanza Cardozo MD [address] [place] [address] PCP - General Family Practice 08/25/22 [place], CHRISTIANNE Wang Skidder Lever Operator 07/13/17 Sharif Nunez MD [address] [facility] [place] [facility] [address] [place] [address] Rheumatology 10/08/21 Riley Camacho MD [address] [facility] [place] [address] Surgery - Urology 08/25/22
== END 2023-10-18 14:25 | disposition home or self-care (01) ==
LOC: WOUND 14:24
PROVIDERS: PCP Family Medicine; Visit Provider Physician Assistant
DX: I87.2 Venous insufficiency (chronic) (peripheral) (principal); L97.822 Non-pressure chronic ulcer of other part of left lower leg with fat layer exposed; L94.2 Calcinosis cutis
CPT/HCPCS: 97597

== ENCOUNTER 2023-10-25 14:18 | Outpatient (CLI) | payer MEDICARE, BC, SELFPAY ==
--- OUTSIDE RECORDS SUMMARY | 2023-10-25 14:20 | XMS_ITS | Clinical Summary ---
Author Organization [employer] s & [employer] Affiliates Address [place], [place] [address] Care Team Providers Care Superintendent Institution Name Role Phone ClaudiaBeto Ivan FAUST Unavailable [phone] Sharif Nunez MD Unavailable [phone] Riley Camacho MD Unavailable [phone] Constanza Cardozo MD Primary Care Provider Allergies [...] tablet by mouth once daily. 01/11/2010 Active multivitamin-entry examiner als therapeutic tablet Take 1 tablet [...] weekly d/t ckd - Endo E-consult at [place] 10/09/2020 with recommendation to continue fosamax for [...] She has hearing aids ([facility] in [place]). Obesity with body mass index 30 or greater 12/21 Arthritis, rheumatoid 08/17/2017 Overview: RA Sees Dr. Nunez at [facility] [phone] fax [phone] Last Assessment & Plan: I went over [...] & Plan: She is here today [facility] [employer] [facility] not [facility] her with 6 catheters /day. They told her that medicare would only cover 4 catheters/day. She only has 10 catheters left and needs a supply. I contacted Verónica Escalante NP [place] [facility]. She sees her on a routine basis. She will provide Vanessa with enough catheters to get by until her order from [facility] is delivered. She will drive to [place] to picker and packer the catheters. I had sent Dr. Lopez's order and visit note to [facility] in [place]. Renay Renee will process the order and [...] Type Department Care Team Description 09/11/2023 Telephone [facility] [address] [place] [address] Constanza Cardozo MD Health Maintenance Update (Blood Pressure Letter) 08/15/2023 12:30 PM CDT Phone Office Visit [facility] Sleep [address] [place] [address] [address] [place] [address] Eliseo Dias MD 08/04/2023 2:00 PM CDT Ancillary Procedure [facility] [address] [place] [address] 08/04/2023 Travel 08/02/2023 Orders Only [facility] Scanner 1 scan: (1-Ord) [facility] LOWER EXTREMITY BI INSUF, 08/02/2023 07/27/2023 Lab Requisition [facility] [phone] Clemencia Randall MD from Last 3 Months [...] Comments Blood Pressure 148/62 05/01/2023 1:02 PM HOT PACKER Pulse 90 05/01/2023 1:02 PM HOT PACKER Temperature 37.2 ??C (98.9 ??F) 12/02/2021 11:04 AM C DT Respiratory Rate 16 05/01/2023 1:02 PM HOT PACKER Oxygen Saturation 98% 05/01/2023 1:02 PM HOT PACKER Inhaled Oxygen Concentration - - Weight 62.6 kg (138 lb) 05/01/2023 1:02 PM HOT PACKER Height 154.9 cm (5' 1) 05/01/2023 1:02 PM HOT PACKER Body Mass Index 26.07 05/01/2023 1:02 PM HOT PACKER Plan of Treatment Health Maintenance Due Date [...] Patient Record) Medical Devices Implanted Type Area Septic Cleaner Device Identifier Shelf Expiration Date Model / Serial / Lot Lead Bladder 28cm Interstim Tined 3mm Spacing - [id number] Implanted:Qty: 1 on 05/04/2016 by Cesar Groves MD at [facility] N/A: Sacrum [employer] Pain Therapy 04/25/2020 3889-28# / / [id number] Stimulator 7.7mm 14cc Interstim Ii - [id number] Implanted:Qty: 1 on 05/11/2016 by Cesar Groves MD at [facility] N/A: Sacrum [employer] Pain Therapy 10/07/2017 3058# / / [id number] Cmnt Bone 40g Simplex P Non Atb Mv - [id number] Implanted:Qty: 2 on 07/12/2017 by Ignacio Mead MD at [facility] Right: Knee [employer] 04/26/2018 6191-1-010 # / / [id number] Cmnt Bone 40g Simplex P Non Atb Mv - [id number] Implanted:Qty: 1 on 07/12/2017 by Ignacio Mead MD at [facility] Right: Knee [employer] 04/26/2018 6191-1-010 # / / [id number] Q7111-Y-254 - [id number] Implanted:Qty: 1 on 07/12/2017 by Ignacio Mead MD at [facility] Right: Knee [employer] [facility] 04/27/2022 5551-G-350 / / [id number] Description:Triathlon X3 Asy mmetric patella M9501-A-978 - [id number] Implanted:Qty: 1 on 07/12/2017 by Ignacio Mead MD at [facility] Right: Knee [employer] 03/11/2022 5520-B-500 / / [id number] Description:Triathlon primar y tibial baseplate S4980-J-190 - [id number] Implanted:Qty: 1 on 07/12/2017 by Ignacio Mead MD at [facility] Right: Knee [employer] 05/21/2021 5510-F-502 / / [id number] Description:Maddie oleary te retaining femoral S9250-K-337 - [id number] Implanted:Qty: 1 on 07/12/2017 by Ignacio Mead MD at [facility] Right: Knee 5531-G-50 9 / / [id number] Description:X3 triathlon CS INS Explanted Type Area Septic Cleaner Device Identifier Shelf Expiration Date Model / Serial / Lot Lead Intrdcr Bladder Interstim - [id number] Explanted:Qty: 1 on 05/04/2016 by Cesar rGoves MD at [facility] N/A: Sacrum [employer] Pain Therapy 05/27/2017 3550-18# / / [id number] Procedures Procedure Name Priority Date/Time Associated Diagnosis [...] CDT Clemencia Randall MD LAB BILL ONLY [facility]TRAL LABORATORY [address] [place] [address], * PATH TISSUE EXAM (07/26/2023 3:16 PM CDT) Case Report Pathology Report ?Case: [id number] ? Authorizing Provider: ??Celmencia Randall MD ??Collected: ? 07/26/2023 1516 ? Ordering Location: ? [facility] ?Received: ?07/27/2023 1409 ? Pathologist: ? Priti Santana MD ? Specimen: ?Left Leg ? 07/28/2023 4:09 PM CDT [facility] LABORATORY-C ENTRAL LABORATORY Final Diagnosis A) SKIN, LEFT LEG NEAR WOUND, BIOPSY: 1. Granulation tissue with overlying reactive and inflamed epidermis 2. Dermal fibrin deposition and dystrophic calcification 3. Negative for malignancy 07/28/2023 4:09 PM CDT [facility] LABORATORY-C ENTRAL LABORATORY Clinical Information 82-year-old female with abnormal tissue with calcium deposits near wound. History of rheumatoid arthritis. 07/28/2023 4:09 PM CDT [facility] LABORATORY-C ENTRAL LABORATORY Gross Description A) Received in formalin, labeled with the patient's name and left leg, is a 0.7 x 0.5 x 0.4 cm aggregate of reyes tissue fragments. ??The outer surface is firm brown-reyes. ??The specimen is entirely submitted in 1 cassette. TMO 07/27/2023 07/28/2023 4:09 PM CDT [facility] LABORATORY-C ENTRAL LABORATORY Microscopic Description The final diagnosis is based on microscopic examination of appropriate sections of all specimens. 07/28/2023 4:09 PM CDT [facility] [employer] LABORATORY-C ENTRAK LABORATORY Additional Information Interpreted at [facility] [employer] [facility] - [address] [facility] [address], [place] [address] 07/28/2023 4:09 PM CDT [facility] Other (Left Leg) 07/26/2023 3:16 PM CDT 07/27/2023 2:09 PM CDT Clemencia Randall MD PATHOLOGY/CYTOLO GY [facility] [address] [place] [address], * (ABNORMAL) XR DXA BONE DENSITY 2 [...] years. Na Valdivia PA-C [facility] 10/11/2022 Narrative 10/11/2022 2:15 PM CDT For Patients: Results are automatically released to your [facility] ([employer]) account once available, in compliance with federal regulations. This means that you may see your results before your provider has had a chance to review them. Please allow 2-3 business days for your provider to comment on the results. XR DXA Bone Mineral Density (BMD) EXAM LOCATION: [address] [place] [address] PATIENT NAME: Vanessa Andino DATE OF : [...] two scanners are made by the same director telemetry. PROCEDURE: Dual-energy x-ray absorptiometry performed with routine [...] Documents on File Type Date Recorded Patient Weatherization Field Technician Expl anation POLST 07/14/2017 8:01 AM 01/12/2017 Power of Solvent Mixer 07/14/2017 7:57 AM 01/06 Healthcare Directive 07/14/2017 7:57 AM * Full Code (Latest Code Status on File) Date Activated Date Inactivated Comments 07/12/2017 7:10 AM 07/14/2017 4:57 PM * Full Code Date Activated Date Inactivated Comments 05/11/2016 10:33 AM 05/11/2016 7:12 PM * Full Code Date Activated Date Inactivated Comments 05/04/2016 7:01 AM 05/04/2016 3:07 PM Care Teams Superintendent Institution Relationship Specialty Start Date End Date Constanza Cardozo MD [address] [place] [address] PCP - General Family Practice 08/25/22 [place], CHRISTIANNE Wang Exceptional Needs Teacher 07/13/17 Sharif Nunez MD [address] [facility] [place] [facility] [address] [place] [address] Rheumatology 10/08/21 Riley Camacho MD [address] [facility] [place] [address] Surgery - Urology 08/25/22
== END 2023-10-25 14:19 | disposition home or self-care (01) ==
LOC: WOUND 14:18
PROVIDERS: PCP Family Medicine; Visit Provider Surgery
DX: I87.2 Venous insufficiency (chronic) (peripheral) (principal); L97.822 Non-pressure chronic ulcer of other part of left lower leg with fat layer exposed
CPT/HCPCS: 97597

== ENCOUNTER 2023-11-01 14:20 | Outpatient (CLI) | payer MEDICARE, BC, SELFPAY ==
--- OUTSIDE RECORDS SUMMARY | 2023-11-01 14:23 | XMS_ITS | Clinical Summary ---
Author Organization [employer] [facility] Address [place], [place] [address] Care Team Providers Care Director Of Quality Control Name Role Phone ClaudiaBeto Ivan FAUST Unavailable [phone] Sharif Nunez MD Unavailable [phone] Riley Camacho MD Unavailable [phone] Constanza Cardozo MD Primary Care Provider Allergies [...] tablet by mouth once daily. 01/11/2010 Active multivitamin-boss miner als therapeutic tablet Take 1 tablet [...] weekly d/t ckd - Endo E-consult at [place] 10/09/2020 with recommendation to continue fosamax for [...] She has hearing aids ([facility] in [place]). Obesity with body mass index 30 or greater 12/21 Arthritis, rheumatoid 08/17/2017 Overview: RA Sees Dr. Nunez at [facility] [phone] fax [phone] Last Assessment & Plan: I went over [...] & Plan: She is here today [facility] catheters /day. They told her that medicare would only cover 4 catheters/day. She only has 10 catheters left and needs a supply. I contacted Verónica Escalante NP [place] [facility]. She sees her on a routine basis. She will provide Vanessa with enough catheters to get by until her order from [facility] is delivered. She will drive to [place] to shrimp picker the catheters. I had sent Dr. Lopez's order and visit note to [facility] in [place]. Renay Renee will process the order and [...] Type Department Care Team Description 09/11/2023 Telephone [facility] [address] [place] [address] Constanza Cardozo MD Health Maintenance Update (Blood Pressure Letter) 08/15/2023 12:30 PM CDT Phone Office Visit [facility] & Sleep [address] [place] [address] [address] [place] [address] Eliseo Dias MD 08/04/2023 2:00 PM CDT Ancillary Procedure [facility] [address] [place] [address] 08/04/2023 Travel 08/02/2023 Orders Only [facility] Scanner 1 scan: (1-Ord) [facility] LOWER EXTREMITY BI INSUF, 08/02/2023 from Last 3 Months Immunizations Name Administration [...] Comments Blood Pressure 148/62 05/01/2023 1:02 PM LASER OPERATOR Pulse 90 05/01/2023 1:02 PM LASER OPERATOR Temperature 37.2 ??C (98.9 ??F) 12/02/2021 11:04 AM C DT Respiratory Rate 16 05/01/2023 1:02 PM LASER OPERATOR Oxygen Saturation 98% 05/01/2023 1:02 PM LASER OPERATOR Inhaled Oxygen Concentration - - Weight 62.6 kg (138 lb) 05/01/2023 1:02 PM LASER OPERATOR Height 154.9 cm (5' 1) 05/01/2023 1:02 PM LASER OPERATOR Body Mass Index 26.07 05/01/2023 1:02 PM LASER OPERATOR Plan of Treatment Health Maintenance Due [...] Patient Record) Medical Devices Implanted Type Area Quill Winder Device Identifier Shelf Expiration Date Model / Serial / Lot Lead Bladder 28cm Interstim Tined 3mm Spacing - [id number] Implanted:Qty: 1 on 05/04/2016 by Cesar Groves MD at [facility] N/A: Sacrum Medtronic Pain Therapy 04/25/2020 3889-28# / / [id number] [id number] 7.7mm 14cc Interstim Ii - [id number] Implanted:Qty: 1 on 05/11/2016 by Cesar Groves MD at [facility] N/A: Sacrum Medtronic Pain Therapy 10/07/2017 3058# / / [id number] Cmnt Bone 40g Simplex P Non Atb Mv - [id number] Implanted:Qty: 2 on 07/12/2017 by Ignacio Mead MD at [facility] Right: Knee [facility] 04/26/2018 6191-1-010 # / / [id number] Cmnt Bone 40g Simplex P Non Atb Mv - [id number] Implanted:Qty: 1 on 07/12/2017 by Ignacio Mead MD at [facility] Right: Knee [facility] 04/26/2018 6191-1-010 # / / [id number]-H-819 - [id number] Implanted:Qty: 1 on 07/12/2017 by Ignacio Mead MD at [facility] Right: Knee [facility] 04/27/2022 5551-G-350 / / [id number] Description:Triathlon X3 Asy mmetric patella H7711-T-992 - [id number] Implanted:Qty: 1 on 07/12/2017 by Ignacio Mead MD at [facility] Right: Knee [facility] 03/11/2022 5520-B-500 / / [id number] Description:Triathlon primar y tibial baseplate V9246-E-363 - [id number] Implanted:Qty: 1 on 07/12/2017 by Ignacio Mead MD at [facility] Right: Knee [facility] 05/21/2021 5510-F-502 / / [id number] Description:Maddie oleary te retaining femoral K4118-R-748 - [id number] Implanted:Qty: 1 on 07/12/2017 by Ignacio Mead MD at [facility] Right: Knee 5531-G-50 9 / / [id number] Description:X3 triathlon CS INS Explanted Type Area Quill Winder Device Identifier Shelf Expiration Date Model / Serial / Lot Lead Intrdcr Bladder Interstim - [id number] Explanted:Qty: 1 on 05/04/2016 by Cesar Groves MD at [facility] N/A: Sacrum Medtronic Pain Therapy 05/27/2017 3550-18# / / [id number] Procedures Procedure Name Priority Date/Time Associated Diagnosis Comments CT CHEST WO Routine 08/04/2023 2:22 PM CDT Multiple lung nodules Rheumatoid arthritis, involving unspecified site, unspecified whether rheumatoid factor present (HC) SCAN-ULTRASOUND REPORT 08/02/2023 12:00 AM CDT XR DXA BONE DENSITY [...] lateral right lower recentexam but new from 2022 attention on follow-up. Please note that all [...] greater than 5 years. Na Valdivia PA-C [facility] 10/11/2022 Narrative 10/11/2022 2:15 PM CDT For Patients: Results are automatically released to your [employer]) account once available, in compliance with federal regulations. This means that you may see your results before your provider has had a chance to review them. Please allow 2-3 business days for your provider to comment on the results. XR DXA Bone Mineral Density (BMD) EXAM LOCATION: [facility] [address] [facility] [address] PATIENT NAME: Vanessa Andino DATE OF : 1940 EXAM DATE: 10/06/2022 REQUESTING PROVIDER: Cnostanza Cardozo MD GENDER AT : female HEIGHT: [...] two scanners are made by the same wood cut engraver. PROCEDURE: Dual-energy x-ray absorptiometry performed with routine [...] Documents on File Type Date Recorded Patient Care Aide Expl anation POLST 07/14/2017 8:01 AM 01/12/2017 Power of Board Setter 07/14/2017 7:57 AM 01/06 Healthcare Directive 07/14/2017 7:57 AM * Full Code (Latest Code Status on File) Date Activated Date Inactivated Comments 07/12/2017 7:10 AM 07/14/2017 4:57 PM * Full Code Date Activated Date Inactivated Comments 05/11/2016 10:33 AM 05/11/2016 7:12 PM * Full Code Date Activated Date Inactivated Comments 05/04/2016 7:01 AM 05/04/2016 3:07 PM Care Teams Director Of Quality Control Relationship Specialty Start Date End Date Constanza Cardozo MD [address] [place] [address] PCP - General Family Practice 08/25/22 [place], CHRISTIANNE Wang Medical Insurance Claims Specialist 07/13/17 Sharif Nunez MD [address] [facility] [place] [facility] [address] [address] Rheumatology 10/08/21 Riley Camacho MD 100 [facility] [address] [address] Surgery - Urology 08/25/22
== END 2023-11-01 14:21 | disposition home or self-care (01) ==
LOC: WOUND 14:21
PROVIDERS: PCP Family Medicine; Visit Provider Surgery
DX: I87.2 Venous insufficiency (chronic) (peripheral) (principal); L97.822 Non-pressure chronic ulcer of other part of left lower leg with fat layer exposed; M05.9 Rheumatoid arthritis with rheumatoid factor, unspecified; L94.2 Calcinosis cutis
CPT/HCPCS: 97597

== ENCOUNTER 2023-11-08 14:18 | Outpatient (CLI) | payer MEDICARE, BC, SELFPAY ==
--- OUTSIDE RECORDS SUMMARY | 2023-11-08 14:19 | XMS_ITS | Clinical Summary ---
Author Organization [employer] [facility] Address [place], [place] [address] Care Team Providers Care Molecular Modeler Name Role Phone ClaudiaBeto Ivan FAUST Unavailable [phone] Sharif Nunez MD Unavailable [phone] Riley Camacho MD Unavailable [phone] Constanza Cardozo MD Primary Care Provider Allergies [...] tablet by mouth once daily. 01/11/2010 Active multivitamin-gun examiner als therapeutic tablet Take 1 tablet [...] weekly d/t ckd - Endo E-consult at [place] 10/09/2020 with recommendation to continue fosamax for [...] She has hearing aids ([facility] in [place]). Obesity with body mass index 30 or greater 12/21 Arthritis, rheumatoid 08/17/2017 Overview: RA Sees Dr. Nunez at [facility] [phone] fax [phone] Last Assessment & Plan: I went over [...] & Plan: She is here today because [facility] not supply her with 6 catheters /day. They told her that medicare would only cover 4 catheters/day. She only has 10 catheters left and needs a supply. I contacted Verónica Escalante NP [place] [facility]. She sees her on a routine basis. She will provide Vanessa with enough catheters to get by until her order from [facility] is delivered. She will drive to [place] to moss picker the catheters. I had sent Dr. Lopez's order and visit note to [facility] in [place]. Renay Renee will process the order and [...] Encounters Date Type Department Care Team Description 11/02/2023 Telephone [facility] [address] [place] [address] Constanza Cardozo MD Refill Request 09/11/2023 Telephone [facility] [address] [place] [address] Constanza Cardozo MD Health Maintenance Update (Blood Pressure Letter) 08/15/2023 12:30 PM CDT Phone Office Visit [facility] Lung & Sleep [address] [place] [id number] Eliseo Dias MD from Last 3 Months Immunizations Name Administration Dates Next Due COVID-19 vaccine (Moderna 100mcg/0.5mL) SHAUN DE PAZ 08/25/2021,02/23/2021,08/03/2020,2020 COVID-19 vaccine (Qitio NTech 30mcg/0.3mL) 12YO+ BIVALENT PF, MDV 01/04/2022 [...] Comments Blood Pressure 148/62 05/01/2023 1:02 PM SPECIAL EDUCATION ASSOCIATE Pulse 90 05/01/2023 1:02 PM SPECIAL EDUCATION ASSOCIATE Temperature 37.2 ??C (98.9 ??F) 12/02/2021 11:04 AM C DT Respiratory Rate 16 05/01/2023 1:02 PM SPECIAL EDUCATION ASSOCIATE Oxygen Saturation 98% 05/01/2023 1:02 PM SPECIAL EDUCATION ASSOCIATE Inhaled Oxygen Concentration - - Weight 62.6 kg (138 lb) 05/01/2023 1:02 PM SPECIAL EDUCATION ASSOCIATE Height 154.9 cm (5' 1) 05/01/2023 1:02 PM SPECIAL EDUCATION ASSOCIATE Body Mass Index 26.07 05/01/2023 1:02 PM SPECIAL EDUCATION ASSOCIATE Plan of Treatment Upcoming Encounters Date Type Department Care Team (Late st Contact Info) Description 01/19/2024 2:20 PM CDT Office Visit [facility] [address] [place] [address] Constanza Cardozo MD [address] [place] [address] Health Maintenance Due Date Last Done Comments [...] Patient Record) Medical Devices Implanted Type Area Skidder Device Identifier Shelf Expiration Date Model / Serial / Lot Lead Bladder 28cm Interstim Tined 3mm Spacing - [id number] Implanted:Qty: 1 on 05/04/2016 by Cesar Groves MD at [facility] N/A: Sacrum Medtronic Pain Therapy 04/25/2020 3889-28# / / [id number] Stimulator 7.7mm 14cc Interstim Ii - [id number] Implanted:Qty: 1 on 05/11/2016 by Cesar Groves MD at [facility] N/A: Sacrum Medtronic Pain Therapy 10/07/2017 3058# / / [id number] Cmnt Bone 40g Simplex P Non Atb Mv - [id number] Implanted:Qty: 2 on 07/12/2017 by Ignacio Mead MD at [facility] Right: Knee [facility] 04/26/2018 6191-1-010 # / / [id number] Cmnt Bone 40g Simplex P Non Atb Mv - [id number] Implanted:Qty: 1 on 07/12/2017 by Ignacio Mead MD at [facility] Right: Knee [facility] 04/26/2018 6191-1-010 # / / [id number] W3680-V-725 - [id number] Implanted:Qty: 1 on 07/12/2017 by Ignacio Mead MD at [facility] Right: Knee [facility] 04/27/2022 5551-G-350 / / [id number] Description:Triathlon X3 Asy mmetric patella C1954-O-469 - [id number] Implanted:Qty: 1 on 07/12/2017 by Ignacio Mead MD at [facility] Right: Knee [facility] 03/11/2022 5520-B-500 / / [id number] Description:Triathlon primar y tibial baseplate V4850-T-394 - [id number] Implanted:Qty: 1 on 07/12/2017 by Ignacio Mead MD at [facility] Right: Knee [facility] 05/21/2021 5510-F-502 / / [id number] Description:Triathrebel oleary te retaining femoral E1752-U-011 - [id number] Implanted:Qty: 1 on 07/12/2017 by Ignacio Mead MD at [facility] Right: Knee 5531-G-50 9 / / [id number] Description:X3 triathlon CS INS Explanted Type Area Skidder Device Identifier Shelf Expiration Date Model / Serial / Lot Lead Intrdcr Bladder Interstim - [id number] Explanted:Qty: 1 on 05/04/2016 by Cesar Groves MD at [facility] N/A: Sacrum Medtronic Pain Therapy 05/27/2017 3550-18# / / [id number] Procedures Procedure Name Priority Date/Time Associated Diagnosis [...] greater than 5 years. Na Valdivia PA-C [facility] 10/11/2022 Narrative 10/11/2022 2:15 PM CDT For Patients: Results are automatically released to your [employer] account once available, in compliance with federal regulations. This means that you may see your results before your provider has had a chance to review them. Please allow 2-3 business days for your provider to comment on the results. XR DXA Bone Mineral Density (BMD) EXAM LOCATION: [facility] [address] [facility] [address] PATIENT NAME: Vanessa Andino DATE OF : [...] two scanners are made by the same regional economist. PROCEDURE: Dual-energy x-ray absorptiometry performed with routine [...] Documents on File Type Date Recorded Patient Infertility Nurse Alexandre PINEDA 07/14/2017 8:01 AM 01/12/2017 Power of Mold Blower 07/14/2017 7:57 AM 01/06 Healthcare Directive 07/14/2017 7:57 AM * Full Code (Latest Code Status on File) Date Activated Date Inactivated Comments 07/12/2017 7:10 AM 07/14/2017 4:57 PM * Full Code Date Activated Date Inactivated Comments 05/11/2016 10:33 AM 05/11/2016 7:12 PM * Full Code Date Activated Date Inactivated Comments 05/04/2016 7:01 AM 05/04/2016 3:07 PM Care Teams Molecular Modeler Relationship Specialty Start Date End Date Constanza Cardozo MD [address] [place] [address] PCP - General Family Practice 08/25/22 [place], CHRISTIANNE Wang Brush Holder Assembler 07/13/17 Sharif Nunez MD [address] [facility] [address] [address] Rheumatology 10/08/21 Riley Camacho MD 100 [facility] [address] [place] [address] Surgery - Urology 08/25/22
== END 2023-11-08 14:19 | disposition home or self-care (01) ==
LOC: WOUND 14:18
PROVIDERS: PCP Family Medicine; Visit Provider Surgery
DX: I87.2 Venous insufficiency (chronic) (peripheral) (principal); L97.822 Non-pressure chronic ulcer of other part of left lower leg with fat layer exposed; M05.9 Rheumatoid arthritis with rheumatoid factor, unspecified; L94.2 Calcinosis cutis
CPT/HCPCS: 87070; 97597

== ENCOUNTER 2023-11-15 14:16 | Outpatient (CLI) | payer MEDICARE, BC, SELFPAY ==
--- OUTSIDE RECORDS SUMMARY | 2023-11-15 14:23 | XMS_ITS | Clinical Summary ---
Author Organization [employer] [facility] Address [place], [place] [address] Care Team Providers Care Child And Family Therapist Name Role Phone ClaudiaBeto Ivan FAUST Unavailable [phone] Sharif Nunez MD Unavailable [phone] Riley Camacho MD Unavailable [phone] Constanza Cardozo MD Primary Care Provider [phone] Allergies Active Allergy Reactions Criticality Noted Date [...] tablet by mouth once daily. 01/11/2010 Active multivitamin-crime scene examiner als therapeutic tablet Take 1 tablet [...] weekly d/t ckd - Endo E-consult at [place] 10/09/2020 with recommendation to continue fosamax for [...] She has hearing aids ([facility] in [place]). Obesity with body mass index 30 or greater 12/21 Arthritis, rheumatoid 08/17/2017 Overview: RA Sees Dr. Nunez at [facility] [phone] fax [phone] Last Assessment & Plan: I went over [...] & Plan: She is here today because [facility] will not supply her with 6 catheters /day. They told her that medicare would only cover 4 catheters/day. She only has 10 catheters left and needs a supply. I contacted Verónica Escalante NP [place] [facility]. She sees her on a routine basis. She will provide Vanessa with enough catheters to get by until her order from [facility] is delivered. She will drive to [place] to oyster picker the catheters. I had sent Dr. Lopez's order and visit note to [facility] in [place]. Renay Renee will process the order and [...] Encounters Date Type Department Care Team Description 11/13/2023 Refill [facility] [address] [facility] [place] [address] Riley Camacho MD Refill Request 11/02/[address] [facility] [address] [place] [address] Constanza Cardozo MD Refill Request 09/11/[address] [facility] [address] [place] [address] Constanza Cardozo MD Health Maintenance Update (Blood Pressure Letter) 08/15/2023 12:30 PM CDT Phone Office Visit [facility] Lung & Sleep [address] [place] [address] [place] [address] [id number] Eliseo Dias MD from Last 3 Months [...] Comments Blood Pressure 148/62 05/01/2023 1:02 PM RETAIL PERFORMANCE SPECIALIST Pulse 90 05/01/2023 1:02 PM RETAIL PERFORMANCE SPECIALIST Temperature 37.2 ??C (98.9 ??F) 12/02/2021 11:04 AM C DT Respiratory Rate 16 05/01/2023 1:02 PM RETAIL PERFORMANCE SPECIALIST Oxygen Saturation 98% 05/01/2023 1:02 PM RETAIL PERFORMANCE SPECIALIST Inhaled Oxygen Concentration - - Weight 62.6 kg (138 lb) 05/01/2023 1:02 PM RETAIL PERFORMANCE SPECIALIST Height 154.9 cm (5' 1) 05/01/2023 1:02 PM RETAIL PERFORMANCE SPECIALIST Body Mass Index 26.07 05/01/2023 1:02 PM RETAIL PERFORMANCE SPECIALIST Plan of Treatment Upcoming Encounters Date Type Department Care Team (Late st Contact Info) Description 01/19/2024 2:20 PM CDT Office Visit [facility] [address] [place] [address] Constanza Cardozo MD [address] [place] [address] Health Maintenance Due Date Last Done Comments [...] Patient Record) Medical Devices Implanted Type Area Middle Card Tender Device Identifier Shelf Expiration Date Model / Serial / Lot Lead Bladder 28cm Interstim Tined 3mm Spacing - [id number] Implanted:Qty: 1 on 05/04/2016 by Cesar Groves MD at [facility] N/A: Sacrum Medtronic Pain Therapy 04/25/2020 3889-28# / / [id number] Stimulator 7.7mm 14cc Interstim Ii - [id number] Implanted:Qty: 1 on 05/11/2016 by Cesar Groves MD at [facility] N/A: Sacrum Medtronic Pain Therapy 10/07/2017 3058# / / [id number] Cmnt Bone 40g Simplex P Non Atb Mv - [id number] Implanted:Qty: 2 on 07/12/2017 by Ignacio Mead MD at [facility] Right: Knee [facility] 04/26/2018 6191-1-010 # / / [id number] Cmnt Bone 40g Simplex P Non Atb Mv - [id number] Implanted:Qty: 1 on 07/12/2017 by Ignacio Mead MD at [facility] Right: Knee [facility] 04/26/2018 6191-1-010 # / / [id number] I1259-X-783 - [id number] Implanted:Qty: 1 on 07/12/2017 by Ignacio Mead MD at [facility] Right: Knee [facility] 04/27/2022 5551-G-350 / / [id number] Description:Triathlon X3 Asy mmetric patella U1102-S-182 - [id number] Implanted:Qty: 1 on 07/12/2017 by Ignacio Mead MD at [facility] Right: Knee [facility] 03/11/2022 5520-B-500 / / [id number] Description:Triathlon primar y tibial baseplate Z9553-O-726 - [id number] Implanted:Qty: 1 on 07/12/2017 by Ignacio Mead MD at [facility] Right: Knee [facility] 05/21/2021 5510-F-502 / / [id number] Description:Triathlon renéeia te retaining femoral P8915-Y-310 - [id number] Implanted:Qty: 1 on 07/12/2017 by Ignacio Mead MD at [facility] Right: Knee 5531-G-50 9 / / [id number] Description:X3 triathlon CS INS Explanted Type Area Middle Card Tender Device Identifier Shelf Expiration Date Model / Serial / Lot Lead Intrdcr Bladder Interstim - [id number] Explanted:Qty: 1 on 05/04/2016 by Cesar Groves MD at [facility] N/A: Sacrum Medtronic Pain Therapy 05/27/2017 3550-18# / / [id number] Procedures Procedure Name Priority Date/Time Associated Diagnosis [...] greater than 5 years. Na Valdivia PA-C [facility] 10/11/2022 Narrative 10/11/2022 2:15 PM CDT For Patients: Results are automatically released to your [facility] account once available, in compliance with federal regulations. This means that you may see your results before your provider has had a chance to review them. Please allow 2-3 business days for your provider to comment on the results. XR DXA Bone Mineral Density (BMD) EXAM LOCATION: [facility] [address] [facility] [address] PATIENT NAME: Vanessa Andino DATE OF : [...] two scanners are made by the same tube sorter. PROCEDURE: Dual-energy x-ray absorptiometry performed with routine [...] Documents on File Type Date Recorded Patient Fitter And Turner Expl anation POLST 07/14/2017 8:01 AM 01/12/2017 Power of Manager Beauty 07/14/2017 7:57 AM 01/06 Healthcare Directive 07/14/2017 7:57 AM * Full Code (Latest Code Status on File) Date Activated Date Inactivated Comments 07/12/2017 7:10 AM 07/14/2017 4:57 PM * Full Code Date Activated Date Inactivated Comments 05/11/2016 10:33 AM 05/11/2016 7:12 PM * Full Code Date Activated Date Inactivated Comments 05/04/2016 7:01 AM 05/04/2016 3:07 PM Care Teams Child And Family Therapist Relationship Specialty Start Date End Date Constanza Cardozo MD [address] [place] [address] PCP - General Family Practice 08/25/22 Beto Taylor LSW Bookkeeping Teacher 07/13/17 Sharif Nunez MD [address] [facility] [place] [facility] [address] [address] Rheumatology 10/08/21 Riley Camacho MD [address] [place] [address] [address] [address] Surgery - Urology 08/25/22
== END 2023-11-15 14:17 | disposition home or self-care (01) ==
LOC: WOUND 14:22
PROVIDERS: PCP Family Medicine; Visit Provider Surgery
DX: I87.2 Venous insufficiency (chronic) (peripheral) (principal); L97.822 Non-pressure chronic ulcer of other part of left lower leg with fat layer exposed; L94.2 Calcinosis cutis
CPT/HCPCS: 97597

== ENCOUNTER 2023-11-22 13:40 | Outpatient (CLI) | payer MEDICARE, BC, SELFPAY ==
--- OUTSIDE RECORDS SUMMARY | 2023-11-22 13:42 | XMS_ITS | Clinical Summary ---
Author Organization [employer] [facility] Address [place], [place] [address] Care Team Providers Care Intake Coordinator Name Role Phone ClaudiaBeto Ivan FAUST Unavailable [phone] Sharif Nunez MD Unavailable [phone] Riley Camacho MD Unavailable [phone] Constanza Cardozo MD Primary Care Provider Allergies [...] tablet by mouth once daily. 01/11/2010 Active multivitamin-mine rals therapeutic tablet Take 1 tablet by mouth once daily. Active acetaminophen (TYLENOL EXTRA STRENGTH) 500 mg tabletIndications :pain Take 2 tablets by mouth every 6 hours if needed. Max acetaminophen dose: 4000mg in 24 hrs. 0 07/14/2017 Active hydrOXYchloroQUIN E (PLAQUENIL) 200 mg tablet Take 1 Tablet [...] mg tablet Mg weekly 0 10/08/2021 Active Catheter 14 FrIndications:Uri nary retention Coloplast Speedie Cath 6 times each day as directed 180 Each 01/04/2023 Active furosemide (LASIX) 20 mg tabletIndications :Bilateral lower extremity edema Take 1 Tablet (20 mg) by mouth two times daily. 180 Tablet 3 01/17/2023 Active alendronate (FOSAMAX) 70 mg tabletIndications :Age related osteoporosis, unspecified pathological fracture presence Take 1 Tablet (70 mg) by mouth once a week in the morning. Take on empty stomach with full glass of water. Do not lie down for 1 hr. 12 Tablet 3 01/17/2023 Active losartan (COZAAR) 50 mg tabletIndications :HTN (hypertension) Take 1 Tablet (50 mg) by mouth once daily. 90 Tablet 3 02/10/2023 Active methenamine hippurate (HIPREX) 1 gram tabletIndications :Recurrent UTI (urinary tract infection) Take 1 Tablet (1 g) by mouth two times daily. 180 Tablet 1 11/16/2023 Active methenamine hippurate (HIPREX) 1 gram tabletIndications :Recurrent UTI (urinary tract infection) Take 1 Tablet (1 g) by mouth two times daily. 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 35 mg weekly d/t ckd - Endo E-consult at [place] 10/09/2020 with recommendation to continue fosamax for [...] She has hearing aids ([facility] in [place]). Obesity with body mass index 30 or greater 12/21 Arthritis, rheumatoid 08/17/2017 Overview: RA Sees Dr. Nunez at [facility] [place] [phone] fax [phone] Last Assessment & Plan: I went over [...] & Plan: [facility] /day. They told her that medicare would only cover 4 catheters/day. She only has 10 catheters left and needs a supply. I contacted Verónica Escalante HEDGE TRIMMER [place] [facility]. She sees her on a routine basis. She will provide Vanessa with enough catheters to get by until her order from [facility] is delivered. She will drive to [place] to mushroom picker the catheters. I had sent Dr. Lopez's order and visit note to [facility] in [place]. Renay Renee will process the order and [...] Type Department Care Team Description 11/13/2023 Refill [facility] [address] [place] [address] Riley Camacho MD Refill Request (Methenamine hippurate) 11/02/2023 Telephone [facility] [address] [place] [address] Constanza Cardozo MD Refill Request 09/11/2023 Telephone [facility] [address] [place] [address] Constanza Cardozo MD Health Maintenance Update (Blood Pressure Letter) from Last 3 Months Immunizations Name Administration [...] Comments Blood Pressure 148/62 05/01/2023 1:02 PM INFORMATION DIRECTOR Pulse 90 05/01/2023 1:02 PM INFORMATION DIRECTOR Temperature 37.2 ??C (98.9 ??F) 12/02/2021 11:04 AM C DT Respiratory Rate 16 05/01/2023 1:02 PM INFORMATION DIRECTOR Oxygen Saturation 98% 05/01/2023 1:02 PM INFORMATION DIRECTOR Inhaled Oxygen Concentration - - Weight 62.6 kg (138 lb) 05/01/2023 1:02 PM INFORMATION DIRECTOR Height 154.9 cm (5' 1) 05/01/2023 1:02 PM INFORMATION DIRECTOR Body Mass Index 26.07 05/01/2023 1:02 PM INFORMATION DIRECTOR Plan of Treatment Upcoming Encounters Date Type Department Care Team (Late st Contact Info) Description 01/19/2024 2:20 PM CDT Office Visit [facility] [address] [place] [address] Constanza Cardozo MD [address] [place] [address] Health Maintenance Due Date Last Done Comments [...] Patient Record) Medical Devices Implanted Type Area College Coach Device Identifier Shelf Expiration Date Model / Serial / Lot Lead Bladder 28cm Interstim Tined 3mm Spacing - [id number] Implanted:Qty: 1 on 05/04/2016 by Cesar Groves MD at [facility] N/A: Sacrum Medtronic Pain Therapy 04/25/2020 3889-28# / / [id number] Stimulator 7.7mm 14cc Interstim Ii - [id number] Implanted:Qty: 1 on 05/11/2016 by Cesar Groves MD at [facility] N/A: Sacrum Medtronic Pain Therapy 10/07/2017 3058# / / [id number] Cmnt Bone 40g Simplex P Non Atb Mv - [id number] Implanted:Qty: 2 on 07/12/2017 by Ignacio Mead MD at [facility] Right: Knee [facility] 04/26/2018 6191-1-010 # / / [id number] Cmnt Bone 40g Simplex P Non Atb Mv - [id number] Implanted:Qty: 1 on 07/12/2017 by Ignacio Mead MD at [facility] Right: Knee [facility] 04/26/2018 6191-1-010 # / / [id number] F6203-G-506 - [id number] Implanted:Qty: 1 on 07/12/2017 by Ignacio Mead MD at [facility] Right: Knee [facility] 04/27/2022 5551-G-350 / / [id number] Description:Triathlon X3 Asy mmetric patella W9142-F-592 - [id number] Implanted:Qty: 1 on 07/12/2017 by Ignacio Mead MD at [facility] Right: Knee [facility] 03/11/2022 5520-B-500 / / [id number] Description:Triathlon primar y tibial baseplate E2916-H-597 - [id number] Implanted:Qty: 1 on 07/12/2017 by Ignacio Mead MD at [facility] Right: Knee [facility] 05/21/2021 5510-F-502 / / [id number] Description:Triathlon crucia te retaining femoral S9048-X-234 - [id number] Implanted:Qty: 1 on 07/12/2017 by Ignacio Mead MD at [facility] Right: Knee 5531-G-50 9 / / [id number] Description:X3 triathlon CS INS Explanted Type Area College Coach Device Identifier Shelf Expiration Date Model / Serial / Lot Lead Intrdcr Bladder Interstim - [id number] Explanted:Qty: 1 on 05/04/2016 by Cesar Groves MD at [facility] N/A: Sacrum Medtronic Pain Therapy 05/27/2017 3550-18# / / [id number] Procedures Procedure Name Priority Date/Time Associated Diagnosis [...] Patients: Results are automatically released to your [facility] ([employer]) account once available, in compliance with federal regulations. This means that you may see your results before your provider has had a chance to review them. Please allow 2-3 business days for your provider to comment on the results. XR DXA Bone Mineral Density (BMD) EXAM LOCATION: [address] [address] PATIENT NAME: Vanessa Andino DATE OF : [...] two scanners are made by the same car supervisor. PROCEDURE: Dual-energy x-ray absorptiometry performed with [...] Documents on File Type Date Recorded Patient Pulmonary Specialist Expl anation POLST 07/14/2017 8:01 AM 01/12/2017 Power of Well Driller 07/14/2017 7:57 AM 01/06 Healthcare Directive 07/14/2017 7:57 AM * Full Code (Latest Code Status on File) Date Activated Date Inactivated Comments 07/12/2017 7:10 AM 07/14/2017 4:57 PM * Full Code Date Activated Date Inactivated Comments 05/11/2016 10:33 AM 05/11/2016 7:12 PM * Full Code Date Activated Date Inactivated Comments 05/04/2016 7:01 AM 05/04/2016 3:07 PM Care Teams Intake Coordinator Relationship Specialty Start Date End Date Constanza Cardozo MD [address] [place] [address] PCP - General Family Practice 08/25/22 Beto Taylor LSW Hospice Care Sales Consultant 07/13/17 Sharif Nunez MD [address] [facility] [place] [facility] [address] [place] [address] Rheumatology 10/08/21 Riley Camacho MD [address] [place] [address] THOM[place] Lopez [id number] Surgery - Urology 08/25/22
== END 2023-11-22 13:41 | disposition home or self-care (01) ==
LOC: WOUND 13:40
PROVIDERS: PCP Family Medicine; Visit Provider Surgery
DX: I87.2 Venous insufficiency (chronic) (peripheral) (principal); L97.822 Non-pressure chronic ulcer of other part of left lower leg with fat layer exposed; L94.2 Calcinosis cutis
CPT/HCPCS: 97597

== ENCOUNTER 2023-11-29 14:15 | Outpatient (CLI) | payer MEDICARE, BC, SELFPAY ==
--- OUTSIDE RECORDS SUMMARY | 2023-11-29 14:19 | XMS_ITS | Clinical Summary ---
Author Organization [employer] [facility] Address [place], [place] [address] Care Team Providers Care Public Area Attendant Name Role Phone ClaudiaBeto Ivan FAUST Unavailable [phone] Sharif Nunez MD Unavailable [phone] Riley Camacho MD Unavailable [phone] Constanza Cardozo MD Primary Care Provider Allergies [...] weekly d/t ckd - Endo E-consult at [place] 10/09/2020 with recommendation to continue fosamax for [...] She has hearing aids ([facility] in [place]). Obesity with body mass index 30 or greater 12/21 Arthritis, rheumatoid 08/17/2017 Overview: RA Sees Dr. Nunez at [facility] [place] [phone] fax [phone] Last Assessment & Plan: I went over [...] & Plan: She is here today [facility] [employer] [employer] [facility] her with 6 catheters /day. They told her that medicare would only cover 4 catheters/day. She only has 10 catheters left and needs a supply. I contacted Verónica Escalante RECRUITING ASSOCIATE [place] [facility]. She sees her on a routine basis. She will provide Vanessa with enough catheters to get by until her order from [facility] is delivered. She will drive to [place] to flower picker the catheters. I had sent Dr. Lopez's order and visit note to [facility] in [place]. Renay Renee will process the order and [...] Type Department Care Team Description 11/13/2023 Refill [facility] [address] [place] [address] Riley Camacho MD Refill Request (Methenamine hippurate) 11/02/2023 Telephone [facility] [address] [place] [address] Constanza Cardozo MD Refill Request 09/11/2023 Telephone [facility] [address] [place] [address] Constanza Cardozo MD Health Maintenance Update (Blood [...] Comments Blood Pressure 148/62 05/01/2023 1:02 PM METAL PUNCH PRESS OPERATOR Pulse 90 05/01/2023 1:02 PM METAL PUNCH PRESS OPERATOR Temperature 37.2 ??C (98.9 ??F) 12/02/2021 11:04 AM C DT Respiratory Rate 16 05/01/2023 1:02 PM METAL PUNCH PRESS OPERATOR Oxygen Saturation 98% 05/01/2023 1:02 PM METAL PUNCH PRESS OPERATOR Inhaled Oxygen Concentration - - Weight 62.6 kg (138 lb) 05/01/2023 1:02 PM METAL PUNCH PRESS OPERATOR Height 154.9 cm (5' 1) 05/01/2023 1:02 PM METAL PUNCH PRESS OPERATOR Body Mass Index 26.07 05/01/2023 1:02 PM METAL PUNCH PRESS OPERATOR Plan of Treatment Upcoming Encounters Date Type Department Care Team (Late st Contact Info) Description 01/19/2024 2:20 PM CDT Office Visit [facility] [address] [place] [address] Constanza Cardozo MD [address] [place] [address] Health Maintenance Due Date Last Done Comments [...] Patient Record) Medical Devices Implanted Type Area Explosives Worker Device Identifier Shelf Expiration Date Model / Serial / Lot Lead Bladder 28cm Interstim Tined 3mm Spacing - [id number] Implanted:Qty: 1 on 05/04/2016 by Cesar Groves MD at [facility] N/A: Sacrum Medtronic Pain Therapy 04/25/2020 3889-28# / / [id number] Stimulator 7.7mm 14cc Interstim Ii - [id number] Implanted:Qty: 1 on 05/11/2016 by Cesar Groves MD at [facility] N/A: Sacrum Medtronic Pain Therapy 10/07/2017 3058# / / [id number] Cmnt Bone 40g Simplex P Non Atb Mv - [id number] Implanted:Qty: 2 on 07/12/2017 by Ignacio Mead MD at [facility] Right: Knee [facility] 04/26/2018 6191-1-010 # / / [id number] Cmnt Bone 40g Simplex P Non Atb Mv - [id number] Implanted:Qty: 1 on 07/12/2017 by Ignacio Mead MD at [facility] Right: Knee [facility] 04/26/2018 6191-1-010 # / / [id number] X2501-W-876 - [id number] Implanted:Qty: 1 on 07/12/2017 by Ignacio Mead MD at [facility] Right: Knee [facility] 04/27/2022 5551-G-350 / / [id number] Description:Triathlon X3 Asy mmetric patella M0382-U-898 - [id number] Implanted:Qty: 1 on 07/12/2017 by Ignacio Mead MD at [facility] Right: Knee [facility] 03/11/2022 5520-B-500 / / [id number] Description:Triathlon primar y tibial baseplate A6281-Y-939 - [id number] Implanted:Qty: 1 on 07/12/2017 by Ignacio Mead MD at [facility] Right: Knee [facility] 05/21/2021 5510-F-502 / / [id number] Description:Triathlon crucia te retaining femoral F9428-V-761 - [id number] Implanted:Qty: 1 on 07/12/2017 by Ignacio Mead MD at [facility] Right: Knee 5531-G-50 9 / / [id number] Description:X3 triathlon CS INS Explanted Type Area Explosives Worker Device Identifier Shelf Expiration Date Model / Serial / Lot Lead Intrdcr Bladder Interstim - [id number] Explanted:Qty: 1 on 05/04/2016 by Cesar Groves MD at [facility] N/A: Sacrum Medtronic Pain Therapy 05/27/2017 3550-18# / / [id number] Procedures Procedure Name Priority Date/Time Associated Diagnosis [...] greater than 5 years. Na Valdivia PA-C [facility] 10/11/2022 Narrative 10/11/2022 2:15 PM CDT For Patients: Results are automatically released to your [facility] ([employer]) account once available, in compliance with federal regulations. This means that you may see your results before your provider has had a chance to review them. Please allow 2-3 business days for your provider to comment on the results. XR DXA Bone Mineral Density (BMD) EXAM LOCATION: [address] [address] PATIENT NAME: Vanessa Andino DATE OF : [...] two scanners are made by the same copyman. PROCEDURE: Dual-energy x-ray absorptiometry performed with routine [...] Documents on File Type Date Recorded Patient Zoning Engineer Expl anation POLST 07/14/2017 8:01 AM 01/12/2017 Power of Communications Consultant 07/14/2017 7:57 AM 01/06 Healthcare Directive 07/14/2017 7:57 AM * Full Code (Latest Code Status on File) Date Activated Date Inactivated Comments 07/12/2017 7:10 AM 07/14/2017 4:57 PM * Full Code Date Activated Date Inactivated Comments 05/11/2016 10:33 AM 05/11/2016 7:12 PM * Full Code Date Activated Date Inactivated Comments 05/04/2016 7:01 AM 05/04/2016 3:07 PM Care Teams Public Area Attendant Relationship Specialty Start Date End Date Constanza Cardozo MD [address] [place] [address] PCP - General Family Practice 08/25/22 Beto Taylor LSW Food Service Tray Attendant 07/13/17 Sharif Nunez MD [address] [facility] [address] [place] [address] Rheumatology 10/08/21 Riley Camacho MD [address] [place] [address] [place] [id number] Surgery - Urology 08/25/22
== END 2023-11-29 14:16 | disposition home or self-care (01) ==
PROVIDERS: PCP Family Medicine; Visit Provider Surgery
DX: I87.2 Venous insufficiency (chronic) (peripheral) (principal); L97.822 Non-pressure chronic ulcer of other part of left lower leg with fat layer exposed; L94.2 Calcinosis cutis; M05.9 Rheumatoid arthritis with rheumatoid factor, unspecified
CPT/HCPCS: 97597

== ENCOUNTER 2023-12-06 14:16 | Outpatient (CLI) | payer MEDICARE, BC, SELFPAY ==
--- OUTSIDE RECORDS SUMMARY | 2023-12-06 14:21 | XMS_ITS | Clinical Summary ---
Author Organization [employer] [facility] Address [place], [place] [address] Care Team Providers Care Slide Attendant Name Role Phone ClaudiaBeto Ivan FAUST Unavailable [phone] Sharif Nunez MD Unavailable [phone] Riley Camacho MD Unavailable [phone] Constanza Cardozo MD Primary Care Provider Allergies [...] osteoporosis wit hout current pathological fracture 10/11/2022 Overview (10/11/2022): - Fosamax started 10/16/2018 for osteopenia with elevated hip fracture risk. 35 mg weekly d/t ckd - Endo E-consult at [place] 10/09/2020 with recommendation to continue fosamax for 5 years, ok to increase to typical dosing Post-traumatic osteoarthritis, left wrist 202207/18/2022 Neurogenic bladder 03/10/2022 Closed fracture of left proximal humerus 022 Closed fracture of distal radius and ulna 2021 Mass of middle lobe of right lung 12/20/2021 Overview (12/20/2021): Incidental in CT AP 10/04/21. Stable on repeat chest CT 12/17/21, also w/RLL nodule density of uncertain chronicity. Recommend repeat chest CT in 3-6 mos. Thyroid nodule 12/20/2021 Overview (12/20/2021): Incidental on 12/17/[address], thyroid US recommended Presence of neurostimulator 08/25/2021 Prediabetes 08/27/2020 Generalized osteoarthritis 10/26/2018 Personal history of other venous thrombosis and embolism 06/29/2018 Sensorineural hearing loss (SNHL) of both ears 0 06/29/2018 Overview (10/08/2021): She has hearing aids ([facility] in [place]). Obesity with body mass index 30 or greater 12/21 Arthritis, rheumatoid 08/17/2017 Overview (10/08/2021): RA Sees Dr. Nunez at [facility] [phone] fax [phone] Last Assessment & Plan: I went over the results of her bone density test and LS x ray done 09/30/20 She was glad to hear she did not have osteoporosis. I will forward the results per fax to Dr. 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 Last Assessment & Plan: She is here today because [facility] will not supply her with 6 catheters /day. They told her that medicare would only cover 4 catheters/day. She only has 10 catheters left and needs a supply. I contacted Verónica Escalante TRAINING EXECUTIVE [place] [facility]. She sees her on a routine basis. She will provide Vanessa with enough catheters to get by until her order from [facility] is delivered. She will drive to [place] to pear picker the catheters. I had sent Dr. Lopez's order and visit note to [facility] in [place]. Renay Renee will process the order and have the catheters sent to her home. She felt that they would arrive by next Monday. Vanessa had been up since 5:00 very concerned that she would not be able to get the catheters. She voiced being grateful for the care today. Hypertensive kidney disease, stage III 0 Overview (10/08/2021): She has had increased Cr with lisinopril/ARBs [...] Type Department Care Team Description 11/13/2023 Refill [place] [address] [place] [address] Riley Camacho MD Refill Request (Methenamine hippurate) 11/02/2023 Telephone [facility] [address] [place] [address] Constanza Cardozo MD Refill Request 09/11/2023 Telephone [facility] [address] [place] [address] Constanza Cardozo MD Health Maintenance Update (Blood [...] Blood Pressure 148/62 05/01/2023 1:02 PM MECHANICAL DESIGN ENGINEER FACILITIES Pulse 90 05/01/2023 1:02 PM MECHANICAL DESIGN ENGINEER FACILITIES Temperature 37.2 ??C (98.9 ??F) 12/02/2021 11:04 AM C DT Respiratory Rate 16 05/01/2023 1:02 PM MECHANICAL DESIGN ENGINEER FACILITIES Oxygen Saturation 98% 05/01/2023 1:02 PM MECHANICAL DESIGN ENGINEER FACILITIES Inhaled Oxygen Concentration - - Weight 62.6 kg (138 lb) 05/01/2023 1:02 PM MECHANICAL DESIGN ENGINEER FACILITIES Height 154.9 cm (5' 1) 05/01/2023 1:02 PM MECHANICAL DESIGN ENGINEER FACILITIES Body Mass Index 26.07 05/01/2023 1:02 PM MECHANICAL DESIGN ENGINEER FACILITIES Plan of Treatment Upcoming Encounters Date Type Department Care Team (Late st Contact Info) Description 01/19/2024 2:20 PM CDT Office Visit [facility] [address] [place] [address] Constanza Cardozo MD [address] [place] [address] Health Maintenance Due Date Last Done Comments Zoster (shingles) series for age 50+ (1 of 2) 12/04/1959 RSV vaccine for adults or (1 - 1-dose 60+ series) 1999 COVID-19 vaccine series ( season) 2023 01/04/2022, 08/25/2021, 02/23/2021, Additional history exists Influenza [...] Patient Record) Medical Devices Implanted Type Area Skiver Counter Device Identifier Shelf Expiration Date Model / Serial / Lot Lead Bladder 28cm Interstim Tined 3mm Spacing - [id number] Implanted:Qty: 1 on 05/04/2016 by Cesar Groves MD at [facility] N/A: Sacrum Medtronic Pain Therapy 04/25/2020 3889-28# / / [id number] Stimulator 7.7mm 14cc Interstim Ii - [id number] Implanted:Qty: 1 on 05/11/2016 by Cesar Groves MD at [facility] N/A: Sacrum [employer]onic Pain Therapy 10/07/2017 3058# / / [id number] Cmnt Bone 40g Simplex P Non Atb Mv - [id number] Implanted:Qty: 2 on 07/12/2017 by Ignacio Mead MD at [facility] Right: Knee [facility] 04/26/2018 6191-1-010 # / / [id number] Cmnt Bone 40g Simplex P Non Atb Mv - [id number] Implanted:Qty: 1 on 07/12/2017 by Ignacio eMad MD at [facility] Right: Knee [facility] 04/26/2018 6191-1-010 # / / [id number] R1469-S-900 - [id number] Implanted:Qty: 1 on 07/12/2017 by Ignacio Mead MD at [facility] Right: Knee [facility] 04/27/2022 5551-G-350 / / [id number] Description:Triathlon X3 Asy mmetric patella Y5606-P-002 - [id number] Implanted:Qty: 1 on 07/12/2017 by Ignacio Mead MD at [facility] Right: Knee [facility] 03/11/2022 5520-B-500 / / [id number] Description:Triathlon primar y tibial baseplate C5120-O-434 - [id number] Implanted:Qty: 1 on 07/12/2017 by Ignacio Mead MD at [facility] Right: Knee [facility] 05/21/2021 5510-F-502 / / [id number] Description:Triathlon crucia te retaining femoral I0795-L-888 - [id number] Implanted:Qty: 1 on 07/12/2017 by Ignacio Mead MD at [facility] Right: Knee 5531-G-50 9 / / [id number] Description:X3 triathlon CS INS Explanted Type Area Skiver Counter Device Identifier Shelf Expiration Date Model / Serial / Lot Lead Intrdcr Bladder Interstim - [id number] Explanted:Qty: 1 on 05/04/2016 by Cesar Groves MD at [facility] N/A: Sacrum Medtronic Pain Therapy 05/27/2017 3550-18# / / [id number] Procedures Procedure Name Priority Date/Time Associated Diagnosis [...] greater than 5 years. Na Valdivia PA-C [facility] 10/11/2022 Narrative 10/11/2022 2:15 PM CDT For Patients: Results are automatically released to your [facility] ([employer]) account once available, in compliance with federal regulations. This means that you may see your results before your provider has had a chance to review them. Please allow 2-3 business days for your provider to comment on the results. XR DXA Bone Mineral Density (BMD) EXAM LOCATION: [address] [address] PATIENT NAME: Vanessa Andino DATE OF : [...] two scanners are made by the same toilet products molder. PROCEDURE: Dual-energy x-ray absorptiometry performed with routine [...] Documents on File Type Date Recorded Patient Statistician Alexandre stock POL 07/14/2017 8:01 AM 01/12/2017 Power of Child Guidance Counselor 07/14/2017 7:57 AM 01/06 Healthcare Directive 07/14/2017 7:57 AM * Full Code (Latest Code Status on File) Date Activated Date Inactivated Comments 07/12/2017 7:10 AM 07/14/2017 4:57 PM * Full Code Date Activated Date Inactivated Comments 05/11/2016 10:33 AM 05/11/2016 7:12 PM * Full Code Date Activated Date Inactivated Comments 05/04/2016 7:01 AM 05/04/2016 3:07 PM Care Teams Slide Attendant Relationship Specialty Start Date End Date Constanza Cardozo MD [address] [place] [address] PCP - General Family Practice 08/25/22 Claudia, CHRISTIANNE Wang Rodeo Clown 07/13/17 Sharif Nunez MD [address] [facility] [place] [address] [address] Rheumatology 10/08/21 Riley Camacho MD [address] [place] [address] [place] [address] Surgery - Urology 08/25/22
== END 2023-12-06 14:17 | disposition home or self-care (01) ==
LOC: WOUND 14:16
PROVIDERS: PCP Family Medicine; Visit Provider Surgery
DX: I87.2 Venous insufficiency (chronic) (peripheral) (principal); L97.822 Non-pressure chronic ulcer of other part of left lower leg with fat layer exposed; L94.2 Calcinosis cutis
CPT/HCPCS: 97597

== ENCOUNTER 2023-12-20 14:26 | Outpatient (CLI) | payer MEDICARE, BC, SELFPAY ==
--- OUTSIDE RECORDS SUMMARY | 2023-12-20 14:27 | XMS_ITS | Clinical Summary ---
Author Organization [employer] [facility] Address [place], [place] [address] Care Team Providers Care Vice President Of Business Development Name Role Phone ClaudiaBeto Ivan FAUST Unavailable [phone] Sharif Nunez MD Unavailable [phone] Riley Camacho MD Unavailable [phone] Constanza Cardozo MD Primary Care Provider Allergies [...] tablet by mouth once daily. 01/11/2010 Active multivitamin-lead miner blasting als therapeutic tablet Take 1 [...] Mg weekly 0 10/08/2021 Active Catheter 14 FrIndications:Urin gutierrez retention Coloplast [...] 02/10/2023 Active methenamine hippurate (HIPREX) 1 gram tabletIndications: Recurrent UTI (urinary tract infection) Take 1 Tablet (1 g) by mouth two times daily. 180 Tablet 1 11/16/2023 Active Active Problems Problem Noted Date Diagnosed Date White coat syndrome with hypertension 02/13/2023 Cellulitis of left leg 02/13/2023 Age-related osteoporosis wit hout current pathological fracture 10/11/2022 Overview (10/11/2022): - Fosamax started 10/16/2018 for osteopenia with elevated hip fracture risk. 35 mg weekly d/t ckd - Endo E-consult at [place] 10/09/2020 with recommendation to continue fosamax for [...] She has hearing aids ([facility] in [place]). Obesity with body mass index 30 or greater 12/21 Arthritis, rheumatoid 08/17/2017 Overview (10/08/2021): RA Sees Dr. Nunez at [facility] [phone] fax [phone] Last Assessment & Plan: I went over [...] & Plan: She is here today because [facility] will not supply her with 6 catheters /day. They told her that medicare would only cover 4 catheters/day. She only has 10 catheters left and needs a supply. I contacted Verónica Escalante NP [place] [facility]. She sees her on a routine basis. She will provide Vanessa with enough catheters to get by until her order from [facility] is delivered. She will drive to [place] to pick up truck driver the catheters. I had sent Dr. Lopez's order and visit note to [facility] in [place]. Renay Renee will process the order and [...] Type Department Care Team Description 11/13/[address] [facility] [address] [place] [address] Riley Camacho MD Refill Request (Methenamine hippurate) 11/02/2023 Telephone [facility] [address] [facility] [place] [address] Constanza Cardozo MD Refill Request from Last 3 Months Immunizations Name Administration Dates Next Due COVID-19 vaccine (Moderna 100mcg/0.5mL) PF, MDV 08/25/2021,02/23/2021,08/03/2020,2020 COVID-19 vaccine (800razors-Bio NTech 30mcg/0.3mL) 12YO+ BIVALENT PF, MDV 01/04/2022 [...] Comments Blood Pressure 148/62 05/01/2023 1:02 PM MARKETING ANALYST Pulse 90 05/01/2023 1:02 PM MARKETING ANALYST Temperature 37.2 ??C (98.9 ??F) 12/02/2021 11:04 AM C DT Respiratory Rate 16 05/01/2023 1:02 PM MARKETING ANALYST Oxygen Saturation 98% 05/01/2023 1:02 PM MARKETING ANALYST Inhaled Oxygen Concentration - - Weight 62.6 kg (138 lb) 05/01/2023 1:02 PM MARKETING ANALYST Height 154.9 cm (5' 1) 05/01/2023 1:02 PM MARKETING ANALYST Body Mass Index 26.07 05/01/2023 1:02 PM MARKETING ANALYST Plan of Treatment Upcoming Encounters Date Type Department Care Team (Late st Contact Info) Description 01/19/2024 2:20 PM CDT Office Visit [facility] [address] [place] [address] Constanza Cardozo MD [address] [place] [address] Health Maintenance Due Date Last Done Comments [...] Patient Record) Medical Devices Implanted Type Area Vp Strategic Planning Device Identifier Shelf Expiration Date Model / Serial / Lot Lead Bladder 28cm Interstim Tined 3mm Spacing - [id number] Implanted:Qty: 1 on 05/04/2016 by Cesar Groves MD at [facility] N/A: Sacrum Medtronic Pain Therapy 04/25/2020 3889-28# / / [id number] Stimulator 7.7mm 14cc Interstim Ii - [id number] Implanted:Qty: 1 on 05/11/2016 by Cesar Groves MD at [facility] N/A: Sacrum Medtronic Pain Therapy 10/07/2017 3058# / / [id number] Cmnt Bone 40g Simplex P Non Atb Mv - [id number] Implanted:Qty: 2 on 07/12/2017 by Ignacio Mead MD at [facility] Right: Knee [employer] 04/26/2018 6191-1-010 # / / [id number] Cmnt Bone 40g Simplex P Non Atb Mv - [id number] Implanted:Qty: 1 on 07/12/2017 by Ignacio Mead MD at [facility] Right: Knee [facility] 04/26/2018 6191-1-010 # / / [id number] K8205-R-609 - [id number] Implanted:Qty: 1 on 07/12/2017 by Ignacio Mead MD at [facility] Right: Knee [employer] 04/27/2022 5551-G-350 / / [id number] Description:Triathlon X3 Asy mmetric patella A3259-V-051 - [id number] Implanted:Qty: 1 on 07/12/2017 by Ignacio Mead MD at [facility] Right: Knee [employer] 03/11/2022 5520-B-500 / / [id number] Description:Triathlon primar y tibial baseplate Y9315-J-777 - [id number] Implanted:Qty: 1 on 07/12/2017 by Ignacio Mead MD at [facility] Right: Knee [employer] 05/21/2021 5510-F-502 / / [id number] Description:Triathlon renéeia te retaining femoral Q6391-N-822 - [id number] Implanted:Qty: 1 on 07/12/2017 by Ignacio Mead MD at [facility] Right: Knee 5531-G-50 9 / / [id number] Description:X3 triathlon CS INS Explanted Type Area Vp Strategic Planning Device Identifier Shelf Expiration Date Model / Serial / Lot Lead Intrdcr Bladder Interstim - [id number] Explanted:Qty: 1 on 05/04/2016 by Cesar Groves MD at [facility] N/A: Sacrum Medtronic Pain Therapy 05/27/2017 3550-18# / / [id number] Procedures Procedure Name Priority Date/Time Associated Diagnosis [...] greater than 5 years. Na Valdivia PA-C [facility] 10/11/2022 Narrative 10/11/2022 2:15 PM CDT For Patients: Results are automatically released to your [facility] ([employer]) account once available, in compliance with federal regulations. This means that you may see your results before your provider has had a chance to review them. Please allow 2-3 business days for your provider to comment on the results. XR DXA Bone Mineral Density (BMD) EXAM LOCATION: [facility] [address] [facility] [address] PATIENT NAME: Vanessa Andino DATE OF : [...] two scanners are made by the same risk tech. PROCEDURE: Dual-energy x-ray absorptiometry performed with routine [...] Documents on File Type Date Recorded Patient Programmer Or Analyst Alexandre PINEDA 07/14/2017 8:01 AM 01/12/2017 Power of Needle Loom Operator Helper 07/14/2017 7:57 AM 01/06 Healthcare Directive 07/14/2017 7:57 AM * Full Code (Latest Code Status on File) Date Activated Date Inactivated Comments 07/12/2017 7:10 AM 07/14/2017 4:57 PM * Full Code Date Activated Date Inactivated Comments 05/11/2016 10:33 AM 05/11/2016 7:12 PM * Full Code Date Activated Date Inactivated Comments 05/04/2016 7:01 AM 05/04/2016 3:07 PM Care Teams Vice President Of Business Development Relationship Specialty Start Date End Date Constanza Cardozo MD [address] [place] [address] PCP - General Family Practice 08/25/22 [place], JEREMY WangW Adult Psychiatrist 07/13/17 Sharif Nunez MD [address] [facility] [place] [facility] [address] [place] [address] Rheumatology 10/08/21 Riley Camacho MD 100 [facility] [address] Surgery - Urology 08/25/22
== END 2023-12-20 14:27 | disposition home or self-care (01) ==
LOC: WOUND 14:26
PROVIDERS: PCP Family Medicine; Visit Provider Surgery
DX: I87.2 Venous insufficiency (chronic) (peripheral) (principal); L97.822 Non-pressure chronic ulcer of other part of left lower leg with fat layer exposed; L94.2 Calcinosis cutis
CPT/HCPCS: 97597

== ENCOUNTER 2024-01-03 14:31 | Outpatient (CLI) | payer MEDICARE, BC, SELFPAY ==
--- OUTSIDE RECORDS SUMMARY | 2024-01-03 14:34 | XMS_ITS | Clinical Summary ---
Author Organization [employer] [facility] Address [place], [place] [address] Care Team Providers Care Egg Buyer Name Role Phone ClaudiaBeto Ivan FAUST Unavailable [phone] Sharif Nunez MD Unavailable [phone] Riley Camacho MD Unavailable [phone] Constanza Cardozo MD Primary Care Provider Allergies [...] tablet by mouth once daily. 01/11/2010 Active multivitamin-estate tax examiner als therapeutic tablet Take 1 tablet [...] weekly d/t ckd - Endo E-consult at [place] 10/09/2020 with recommendation to continue fosamax for [...] She has hearing aids ([facility] in [place]). Obesity with body mass index 30 or greater 12/21 Arthritis, rheumatoid 08/17/2017 Overview (10/08/2021): RA Sees Dr. Nunez at [facility] [phone] fax [phone] Last Assessment & Plan: I went over [...] & Plan: She is here today because [facility] will not supply her with 6 catheters /day. They told her that medicare would only cover 4 catheters/day. She only has 10 catheters left and needs a supply. I contacted Verónica Escalante NP [place] [facility]. She sees her on a routine basis. She will provide Vanessa with enough catheters to get by until her order from [facility] is delivered. She will drive to [place] to berry picker the catheters. I had sent Dr. Lopez's order and visit note to [facility] in [place]. Renay Renee will process the order and [...] Type Department Care Team Description 11/13/2023 Refill [facility] [address] [facility] [address] Riley Camacho MD Refill Request (Methenamine hippurate) 11/02/2023 Telephone [facility] [address] [place] [address] Constanza Cardozo MD Refill Request from Last 3 Months Immunizations Name Administration Dates Next Due COVID-19 vaccine (Moderna 100mcg/0.5mL) PF, MDV 08/25/2021,02/23/2021,08/03/2020,2020 COVID-19 vaccine (NutshellMail-Bio NTech 30mcg/0.3mL) 12YO+ BIVALENT PF, MDV 01/04/2022 [...] Comments Blood Pressure 148/62 05/01/2023 1:02 PM FASHION INTERN Pulse 90 05/01/2023 1:02 PM FASHION INTERN Temperature 37.2 ??C (98.9 ??F) 12/02/2021 11:04 AM C DT Respiratory Rate 16 05/01/2023 1:02 PM FASHION INTERN Oxygen Saturation 98% 05/01/2023 1:02 PM FASHION INTERN Inhaled Oxygen Concentration - - Weight 62.6 kg (138 lb) 05/01/2023 1:02 PM FASHION INTERN Height 154.9 cm (5' 1) 05/01/2023 1:02 PM FASHION INTERN Body Mass Index 26.07 05/01/2023 1:02 PM FASHION INTERN Plan of Treatment Upcoming Encounters Date Type Department Care Team (Late st Contact Info) Description 01/19/2024 2:20 PM CDT Office Visit [facility] [address] [place] [address] Constanza Cardozo MD [address] [place] [address] Health Maintenance Due Date Last Done Comments Zoster (shingles) series for age 50+ (1 of 2) 12/04/1959 RSV vaccine for adults or (1 - 1-dose 75+ series) 12/04/2014 COVID-19 vaccine series ( season) 2023 01/04/2022, [...] Patient Record) Medical Devices Implanted Type Area Gate Tender Device Identifier Shelf Expiration Date Model / Serial / Lot Lead Bladder 28cm Interstim Tined 3mm Spacing - [id number] Implanted:Qty: 1 on 05/04/2016 by Cesar Groves MD at [facility] N/A: Sacrum Medtronic Pain Therapy 04/25/2020 3889-28# / / [id number] Stimulator 7.7mm 14cc Interstim Ii - [id number] Implanted:Qty: 1 on 05/11/2016 by Cesar Groves MD at [facility] N/A: Sacrum Medtronic Pain Therapy 10/07/2017 3058# / / [id number] Cmnt Bone 40g Simplex P Non Atb Mv - [id number] Implanted:Qty: 2 on 07/12/2017 by Ignacio Mead MD at [facility] Right: Knee [employer] 04/26/2018 6191-1-010 # / / [id number] Cmnt Bone 40g Simplex P Non Atb Mv - [id number] Implanted:Qty: 1 on 07/12/2017 by Ignacio Mead MD at [facility] Right: Knee [facility] 04/26/2018 6191-1-010 # / / [id number] V1993-F-493 - [id number] Implanted:Qty: 1 on 07/12/2017 by Ignacio Mead MD at [facility] Right: Knee [facility] 04/27/2022 5551-G-350 / / [id number] Description:Triathlon X3 Asy mmetric patella E2154-F-017 - [id number] Implanted:Qty: 1 on 07/12/2017 by Ignacio Mead MD at [facility] Right: Knee [employer] [facility] 03/11/2022 5520-B-500 / / [id number] Description:Triathlon primar y tibial baseplate A5657-A-916 - [id number] Implanted:Qty: 1 on 07/12/2017 by Ignacio Mead MD at [facility] Right: Knee [employer] [facility] 05/21/2021 5510-F-502 / / [id number] Description:Triathlon renéeia te retaining femoral X0520-D-973 - [id number] Implanted:Qty: 1 on 07/12/2017 by Ignacio Mead MD at [facility] Right: Knee 5531-G-50 9 / / [id number] Description:X3 triathlon CS INS Explanted Type Area Gate Tender Device Identifier Shelf Expiration Date Model / Serial / Lot Lead Intrdcr Bladder Interstim - [id number] Explanted:Qty: 1 on 05/04/2016 by Cesar Groves MD at [facility] N/A: Sacrum Medtronic Pain Therapy 05/27/2017 3550-18# / / [id number] Procedures Procedure Name Priority Date/Time Associated Diagnosis [...] greater than 5 years. Na Valdivia PA-C [facility] 10/11/2022 Narrative 10/11/2022 2:15 PM CDT For Patients: Results are automatically released to your [facility] ([employer]) account once available, in compliance with federal regulations. This means that you may see your results before your provider has had a chance to review them. Please allow 2-3 business days for your provider to comment on the results. XR DXA Bone Mineral Density (BMD) EXAM LOCATION: [facility] [address] [facility] [address] PATIENT NAME: Vanessa Andino DATE OF : [...] two scanners are made by the same transition program manager. PROCEDURE: Dual-energy x-ray absorptiometry performed with routine [...] Documents on File Type Date Recorded Patient Coding Educator Alexandre PINEDA 07/14/2017 8:01 AM 01/12/2017 Power of Home Aide 07/14/2017 7:57 AM 01/06 Healthcare Directive 07/14/2017 7:57 AM * Full Code (Latest Code Status on File) Date Activated Date Inactivated Comments 07/12/2017 7:10 AM 07/14/2017 4:57 PM * Full Code Date Activated Date Inactivated Comments 05/11/2016 10:33 AM 05/11/2016 7:12 PM * Full Code Date Activated Date Inactivated Comments 05/04/2016 7:01 AM 05/04/2016 3:07 PM Care Teams Egg Buyer Relationship Specialty Start Date End Date Constanza Cardozo MD [address] [place] [address] PCP - General Family Practice 08/25/22 [place], JEREMY WangW Special Education Itinerant Teacher 07/13/17 Sharif Nunez MD [address] [facility] [place] [facility] [address] [place] [address] Rheumatology 10/08/21 Riley Camacho MD 100 [facility] [place] [address] Surgery - Urology 08/25/22
== END 2024-01-03 14:32 | disposition home or self-care (01) ==
PROVIDERS: PCP Family Medicine; Visit Provider Surgery
DX: I87.2 Venous insufficiency (chronic) (peripheral) (principal); L97.822 Non-pressure chronic ulcer of other part of left lower leg with fat layer exposed; L94.2 Calcinosis cutis; M05.9 Rheumatoid arthritis with rheumatoid factor, unspecified
CPT/HCPCS: 97597

== ENCOUNTER 2024-01-10 14:23 | Outpatient (CLI) | payer MEDICARE, BC, SELFPAY ==
--- OUTSIDE RECORDS SUMMARY | 2024-01-10 14:25 | XMS_ITS | Clinical Summary ---
Author Organization [employer] [facility] Address [place], [place] [address] Care Team Providers Care Frog Shaker Name Role Phone ClaudiaBeto Ivan FAUST Unavailable [phone] Sharif Nunez MD Unavailable [phone] Riley Camacho MD Unavailable [phone] Constanza Cardozo MD Primary Care Provider Allergies [...] tablet by mouth once daily. 01/11/2010 Active multivitamin-mail examiner als therapeutic tablet Take 1 tablet [...] weekly d/t ckd - Endo E-consult at [place] 10/09/2020 with recommendation to continue fosamax for [...] She has hearing aids ([facility] in [place]). Obesity with body mass index 30 or greater 12/21 Arthritis, rheumatoid 08/17/2017 Overview (10/08/2021): RA Sees Dr. Nunez at [facility] [phone] fax [phone] Last Assessment & Plan: I went over [...] & Plan: She is here today because [facility] [employer] will not supply her with 6 catheters /day. They told her that medicare would only cover 4 catheters/day. She only has 10 catheters left and needs a supply. I contacted Verónica Escalante NP [place] [facility]. She sees her on a routine basis. She will provide Vanessa with enough catheters to get by until her order from [facility] is delivered. She will drive to [place] to chicken picker the catheters. I had sent Dr. Lopez's order and visit note to [facility] in [place]. Renay Renee will process the order and [...] Type Department Care Team Description 11/13/2023 Refill [facility] [address] [place] [address] Riley Camacho MD Refill Request (Methenamine hippurate) 11/02/2023 Telephone [facility] [address] [place] [address] Constanza Cardozo MD Refill Request from Last 3 Months Immunizations Name Administration Dates Next Due COVID-19 vaccine (Moderna 100mcg/0.5mL) PF, MDV 08/25/2021,02/23/2021,08/03/2020,2020 COVID-19 vaccine (sharing.it-Bio NTech 30mcg/0.3mL) 12YO+ BIVALENT PF, MDV 01/04/2022 [...] Comments Blood Pressure 148/62 05/01/2023 1:02 PM HAND SILVERING SUPERVISOR Pulse 90 05/01/2023 1:02 PM HAND SILVERING SUPERVISOR Temperature 37.2 ??C (98.9 ??F) 12/02/2021 11:04 AM C DT Respiratory Rate 16 05/01/2023 1:02 PM HAND SILVERING SUPERVISOR Oxygen Saturation 98% 05/01/2023 1:02 PM HAND SILVERING SUPERVISOR Inhaled Oxygen Concentration - - Weight 62.6 kg (138 lb) 05/01/2023 1:02 PM HAND SILVERING SUPERVISOR Height 154.9 cm (5' 1) 05/01/2023 1:02 PM HAND SILVERING SUPERVISOR Body Mass Index 26.07 05/01/2023 1:02 PM HAND SILVERING SUPERVISOR Plan of Treatment Upcoming Encounters Date Type Department Care Team (Late st Contact Info) Description 01/19/2024 2:20 PM CDT Office Visit [facility] [address] [place] [address] Constanza Cardozo MD [address] [place] [address] Health Maintenance Due Date Last Done Comments [...] Patient Record) Medical Devices Implanted Type Area Tank Washer Device Identifier Shelf Expiration Date Model / Serial / Lot Lead Bladder 28cm Interstim Tined 3mm Spacing - [id number] Implanted:Qty: 1 on 05/04/2016 by Cesar Groves MD at [facility] N/A: Sacrum Medtronic Pain Therapy 04/25/2020 3889-28# / / [id number] Stimulator 7.7mm 14cc Interstim Ii - [id number] Implanted:Qty: 1 on 05/11/2016 by Cesar Groves MD at [facility] N/A: Sacrum Medtronic Pain Therapy 10/07/2017 3058# / / [id number] Cmnt Bone 40g Simplex P Non Atb Mv - [id number] Implanted:Qty: 2 on 07/12/2017 by Ignacio Mead MD at [facility] Right: Knee [employer] [facility] 04/26/2018 6191-1-010 # / / [id number] Cmnt Bone 40g Simplex P Non Atb Mv - [id number] Implanted:Qty: 1 on 07/12/2017 by Ignacio Mead MD at [facility] Right: Knee [employer] [facility] 04/26/2018 6191-1-010 # / / [id number] P3427-H-631 - [id number] Implanted:Qty: 1 on 07/12/2017 by Ignacio Mead MD at [facility] Right: Knee [employer] [facility] 04/27/2022 5551-G-350 / / [id number] Description:Triathlon X3 Asy mmetric patella T7859-C-496 - [id number] Implanted:Qty: 1 on 07/12/2017 by Ignacio Mead MD at [facility] Right: Knee [employer] [facility] 03/11/2022 5520-B-500 / / [id number] Description:Triathlon primar y tibial baseplate B3774-Q-343 - [id number] Implanted:Qty: 1 on 07/12/2017 by Ignacio Mead MD at [facility] Right: Knee [facility] 05/21/2021 5510-F-502 / / [id number] Description:Triathlon renéeia te retaining femoral N0775-R-811 - [id number] Implanted:Qty: 1 on 07/12/2017 by Ignacio Mead MD at [facility] Right: Knee 5531-G-50 9 / / [id number] Description:X3 triathlon CS INS Explanted Type Area Tank Washer Device Identifier Shelf Expiration Date Model / Serial / Lot Lead Intrdcr Bladder Interstim - [id number] Explanted:Qty: 1 on 05/04/2016 by Cesar Groves MD at [facility] N/A: Sacrum Medtronic Pain Therapy 05/27/2017 3550-18# / / [id number] Procedures Procedure Name Priority Date/Time Associated Diagnosis [...] greater than 5 years. Na Valdivia PA-C [facility] 10/11/2022 Narrative 10/11/2022 2:15 PM CDT For Patients: Results are automatically released to your [facility] ([employer]) account once available, in compliance with federal regulations. This means that you may see your results before your provider has had a chance to review them. Please allow 2-3 business days for your provider to comment on the results. XR DXA Bone Mineral Density (BMD) EXAM LOCATION: [facility] [address] [facility] [address] PATIENT NAME: Vanessa Andino DATE OF : [...] two scanners are made by the same sports management internship. PROCEDURE: Dual-energy x-ray absorptiometry performed with routine [...] Documents on File Type Date Recorded Patient Test Director Alexandre PINEDA 07/14/2017 8:01 AM 01/12/2017 Power of Principal Strategist 07/14/2017 7:57 AM 01/06 Healthcare Directive 07/14/2017 7:57 AM * Full Code (Latest Code Status on File) Date Activated Date Inactivated Comments 07/12/2017 7:10 AM 07/14/2017 4:57 PM * Full Code Date Activated Date Inactivated Comments 05/11/2016 10:33 AM 05/11/2016 7:12 PM * Full Code Date Activated Date Inactivated Comments 05/04/2016 7:01 AM 05/04/2016 3:07 PM Care Teams Frog Shaker Relationship Specialty Start Date End Date Constanza Cardozo MD [address] [place] [address] PCP - General Family Practice 08/25/22 [place], JEREMY WangW Ladle Liner 07/13/17 Sharif Nunez MD [address] [facility] [place] [facility] [address] [place] [address] Rheumatology 10/08/21 Riley Camacho MD 100 [facility] [place] [address] Surgery - Urology 08/25/22
== END 2024-01-10 14:24 | disposition home or self-care (01) ==
LOC: WOUND 14:24
PROVIDERS: PCP Family Medicine; Visit Provider Family Medicine
DX: I87.2 Venous insufficiency (chronic) (peripheral) (principal); L97.822 Non-pressure chronic ulcer of other part of left lower leg with fat layer exposed; L94.2 Calcinosis cutis
CPT/HCPCS: 11042

== ENCOUNTER 2024-01-24 14:19 | Outpatient (CLI) | payer MEDICARE, BC, SELFPAY ==
--- OUTSIDE RECORDS SUMMARY | 2024-01-24 14:21 | XMS_ITS | Clinical Summary ---
Author Organization [facility] Address [place], [place] [address] Care Team Providers Care Blacksmith Helper Name Role Phone ClaudiaBeto Ivan LUNAW Unavailable [phone] Sharif Nunez MD Unavailable [phone] Riley Camacho MD Unavailable [phone] Constanza Cardozo MD Primary Care Provider Allergies [...] mg) in the evening. 0 10/08/2021 Active aspirin (ECOTRIN) 81 mg enteric coated tablet Take 1 Tablet (81 mg) by mouth once daily with a meal. 0 10/08/2021 Active Catheter 14 FrIndications:Uri nary retention Coloplast Speedie Cath 6 times each day as directed 180 Each 01/04/2023 Active methenamine hippurate (HIPREX) 1 gram tabletIndications :Recurrent UTI (urinary tract infection) Take 1 Tablet (1 g) by mouth two times daily. 180 Tablet 1 11/16/2023 Active alendronate (FOSAMAX) 70 mg tabletIndications :Age related osteoporosis, unspecified pathological fracture presence Take 1 Tablet (70 mg) by mouth once a week in the morning. Take on empty stomach with full glass of water. Do not lie down for 1 hr. 12 Tablet 3 01/19/2024 Active furosemide (LASIX) 20 mg tabletIndications :Bilateral lower extremity edema Take 1 Tablet (20 mg) by mouth two times daily. 200 Tablet 3 01/19/2024 Active losartan (COZAAR) 50 mg tabletIndications :HTN (hypertension) Take 1 Tablet (50 mg) by mouth once daily. 100 Tablet 3 01/19/2024 Active predniSONE (DELTASONE) 1 mg tablet Take 2 Tablets (2 mg) by mouth once daily with a meal. 01/19/2024 Active predniSONE (DELTASONE) 1 mg tablet Take 1 Tablet (1 mg) by mouth once daily with a meal. 0 10/08/2021 4 Discontinu ed(*Medica tion adjustment ) methotrexate (RHEUMATREX) 2.5 mg tablet Mg weekly 0 10/08/2021 4 Discontinu ed(*Med complete/R egimen complete/L evel of care change) furosemide (LASIX) 20 mg tabletIndications :Bilateral lower extremity edema Take 1 Tablet (20 mg) by mouth two times daily. 180 Tablet 3 01/17/2023 4 Discontinu ed(Reorder (E-cancel not sent)) alendronate (FOSAMAX) 70 mg tabletIndications :Age related osteoporosis, unspecified pathological fracture presence Take 1 Tablet (70 mg) by mouth once a week in the morning. Take on empty stomach with full glass of water. Do not lie down for 1 hr. 12 Tablet 3 01/17/2023 4 Discontinu ed(Reorder (E-cancel not sent)) losartan (COZAAR) 50 mg tabletIndications :HTN (hypertension) Take 1 Tablet (50 mg) by mouth once daily. 90 Tablet 3 02/10/2023 4 Discontinu ed(Reorder (E-cancel not sent)) Active Problems Problem Noted Date Diagnosed Date White coat syndrome with hypertension 02/13/2023 Age-related osteoporosis wit hout current pathological fracture 10/11/2022 Overview (10/11/2022): - Fosamax started 10/16/2018 for osteopenia with elevated hip fracture risk. 35 mg weekly d/t ckd - Endo E-consult at [facility] 10/09/2020 with recommendation to continue fosamax for 5 years, ok to increase to typical dosing Post-traumatic osteoarthritis, left wrist 202207/18/2022 Neurogenic bladder 03/10/2022 Closed fracture of left proximal humerus 022 Closed fracture of distal radius and ulna 2021 Mass of middle lobe of right lung 12/20/2021 Overview (01/19/2024): Incidental in CT AP 10/04/21. Stable on repeat chest CT 12/17/21, also w/RLL nodule density of uncertain chronicity. Thyroid nodule 12/20/2021 Overview (01/19/2024): Incidental on 11/[address] Thyroid US 12/2021 with 3.2 cm R thyroid nodule FNA 01/15 benign Thyroid US 01/2023 with stable nodule Per gen surg repeat US in 1 year Presence of neurostimulator 08/25/2021 Prediabetes 08/27/2020 Generalized osteoarthritis 10/26/2018 Personal history of other venous thrombosis and embolism 06/29/2018 Sensorineural hearing loss (SNHL) of both ears 0 06/29/2018 Overview (10/08/2021): She has hearing aids ([facility] in [place]). Obesity with body mass index 30 or greater 12/21 Arthritis, rheumatoid 08/17/2017 Overview (10/08/2021): RA Sees Dr. Nunez at [facility] [phone] fax [phone] Last Assessment & Plan: I went over [...] & Plan: She is here today because [facility] will not supply her with 6 catheters /day. They told her that medicare would only cover 4 catheters/day. She only has 10 catheters left and needs a supply. I contacted Verónica Escalante INSURANCE LOSS ADJUSTER [place] [facility]. She sees her on a routine basis. She will provide Vanessa with enough catheters to get by until her order from [facility] is delivered. She will drive to [place] to miner pick the catheters. I had sent Dr. Lopez's order and visit note to [facility] in [place]. Renay Thelma will process the order and have the [...] GUILLERMO/ARB if she is willing. Hypertension Hyperlipidemia Resolved Problems Problem Noted Date Diagnosed Date Resolved Date Left leg claudication 01/19/20242023 Cellulitis of left leg 02/13/202301/18 Encounters Date Type Department Care Team Description 01/19/2024 2:20 PM CDT Office Visit [facility] [address] [place] [address] Constanza Cardozo MD Medicare ANNUAL (subsequent) Visit (83 Year Old female ); Throat Problem (Loses voice when going outside) 01/19/2024 Travel 11/13/2023 Refill [facility] [address] [place] [address] Riley Camacho MD Refill Request (Methenamine hippurate) 11/02/2023 Telephone [facility] [address] [place] [address] Constanza Cardozo MD Refill Request from Last 3 Months Immunizations Name Administration Dates Next Due COVID-19 VACCINE SPIKEVAX (M ODERNA 50MCG/0.5ML) 12YO+ PFS 02/13/2023 COVID-19 vaccine (Moderna 100mcg/0.5mL) SHAUN DE PAZ 08/25/2021,02/23/2021,08/03/2020,2020 COVID-19 vaccine (Pfizer-Bio NTech 30mcg/0.3mL) 12YO+ BIVALENT PF, MDV 01/04/2022 DT (Age < 7 years) 07/09/2005 Influenza Virus, Unspecified 01/02/2020,12/24/19 16,01/19/2015 Influenza, High-dose Inactivated 019,01/11/2018,02/06/2017,2015,01/19/2015 Influenza, High-dose Quadriv alent Inactivated 03/02/2023,01/04/2022,01/26/2021 Influenza, IIV3 (Age >=3 years) 01/13/2014,01/22,01/16/2012 Influenza, [...] Answer Date Recorded PHQ-2 TOTAL SCORE 0 01/19/2024 Social Connections Answer Date Recorded Frequency of Communication with Friends and Fami ly 0 01/17/2023 Financial Resource Strain Answer Date R ecorded Difficulty of Paying Living Expenses 3 01/17/2023 Difficulty of Paying Living Expenses Not on file 01/17/2023 Food Insecurity Answer Date Recorded Do you worry your food will run out before you are able to buy more? 1 01/17/2023 Transportation Needs Answer Date Record ed Lack of Transportation (Medical) 1 01/17/2023 Housing Stability Answer Date Recorded What is your housing situation today? 1 01/17/2023 Sex and Gender Information Value Date Recorded Sex Assigned at Not on file Gender Identity Not on file Sexual Orientation Not on file Obstetrics History Last Filed Vital Signs Vital Sign Reading Time Taken Comments Blood Pressure 162/69 01/19/2024 2:21 PM CDT Pulse 79 01/19/2024 2:21 PM CDT Temperature 37.2 ??C (98.9 ??F) 12/02/2021 11:04 AM C DT Respiratory Rate 16 05/01/2023 1:02 PM DIRECTOR OF VIDEO ANALYTICS Oxygen Saturation 98% 01/19/2024 2:21 PM CDT Inhaled Oxygen Concentration - - Weight 64.6 kg (142 lb 6.4 oz) 01/19/2024 2:21 P M CDT Height 157.4 cm (5' 1.97) 01/19/2024 2:21 PM CD T Body Mass Index 26.07 01/19/2024 2:21 PM CDT Plan of Treatment Health Maintenance Due Date Last Done Comments Zoster (shingles) series for age 50+ (1 of 2) 12/04/1959 RSV vaccine for adults or (1 - 1-dose 75+ series) 12/04/2014 COVID-19 vaccine series ( season) 2023 02/13/2023, 01/04/2022, 08/25/2021, Additional history exists Influenza for age 65+ 11/26/2023 03/02/2023 , 01/04/2022, 01/26/2021, Additional history exists BMI (ht and wt on same day) for age 18+ 01/18/2025 01/19/2024, 05/01/2023, 01/17/2023, Additional history exists Depression screening for age 12+ 01/18/2025 01/19/2024, 01/18/2023, 01/18/2023, Additional history exists Medicare Wellness for age 65+ 01/19/2025, 01/17/2023, 12/24/2021 Tetanus booster 02/02/2026 02/03/2016 Pneumococcal series for age 65+ Completed 5, 07/09/2005 Tdap Completed 02/03/2016 DEXA/DXA scan for age 65+ Completed 2022, 12/14/2020 (Verified in Care Everywhere or Patient Record) Medical Devices Implanted Type Area Sulfonator Operator Device Identifier Shelf Expiration Date Model / Serial / Lot Lead Bladder 28cm Interstim Tined 3mm Spacing - [id number] Implanted:Qty: 1 on 05/04/2016 by Cesar Groves MD at [facility] N/A: Sacrum [employer] 04/25/2020 3889-28# / / [id number] Stimulator 7.7mm 14cc Interstim Ii - [id number] Implanted:Qty: 1 on 05/11/2016 by Cesar Groves MD at [facility] N/A: Sacrum [employer] 10/07/2017 3058# / / [id number] Cmnt Bone 40g Simplex P Non Atb Mv - [id number] Implanted:Qty: 2 on 07/12/2017 by Ignacio Mead MD at [facility] Right: Knee [facility] 04/26/2018 6191-1-010 # / / [id number] Cmnt Bone 40g Simplex P Non Atb Mv - [id number] Implanted:Qty: 1 on 07/12/2017 by Ignacio Mead MD at [facility] Right: Knee [facility] 04/26/2018 6191-1-010 # / / [id number] Y4989-Q-169 - [id number] Implanted:Qty: 1 on 07/12/2017 by Ignacio Mead MD at [facility] Right: Knee [facility] 04/27/2022 5551-G-350 / / [id number] Description:Triathlon X3 Asy mmetric patella K9127-D-643 - [id number] Implanted:Qty: 1 on 07/12/2017 by Ignacio Mead MD at [facility] Right: Knee [facility] 03/11/2022 5520-B-500 / / [id number] Description:Triathlon primar y tibial baseplate U3199-I-854 - [id number] Implanted:Qty: 1 on 07/12/2017 by Ignacio Mead MD at [facility] Right: Knee [facility] 05/21/2021 5510-F-502 / / [id number] Description:Triathlon crucia te retaining femoral H4339-I-006 - [id number] Implanted:Qty: 1 on 07/12/2017 by Ignacio Mead MD at [facility] Right: Knee 5531-G-50 9 / / [id number] Description:X3 triathlon CS INS Explanted Type Area Sulfonator Operator Device Identifier Shelf Expiration Date Model / Serial / Lot Lead Intrdcr Bladder Interstim - [id number] Explanted:Qty: 1 on 05/04/2016 by Cesar Groves MD at [facility] N/A: Sacrum [employer] Therapy 05/27/2017 3550-18# / / [id number] Procedures Procedure Name Priority Date/Time Associated Diagnosis Comments T4,FREE Routine 01/19/2024 3:19 PM CDT LIPID PANEL W REFLEX MEASURED LDL Routine 01/19/2024 3:19 PM CDT Hyperlipidemia, unspecified hyperlipidemia type TSH WITH REFLEX Routine 01/19/2024 3:19 PM CDT Thyroid nodule CBC W PLT NO DIFF Routine 01/19/2024 3:1 9 PM CDT Normocytic anemia COMP METABOLIC PANEL Routine 01/19/2024 3:19 PM CDT Hypertensive kidney disease, stage III (HC) XR DXA BONE DENSITY 2 SITES AXIAL Routine 10/06/2022 10:59 AM CDT Age-related osteoporosis without current pathological fracture from Last 3 Months or Most Recently Relevant to Health Maintenance Results * (ABNORMAL) TSH WITH REFLEX (01/19/2024 3:19 PM CDT) TSH W/REFLEX TO FT4 0.38(L) 0.40 - 4.50 mIU/L [facility] Blood BLOOD SPECIMEN / Unknown 01/19/2024 3:19 PM CDT 01/19/2024 3:21 PM CDT Narrative [facility] - 01/20/2024 10:33 AM CDT FASTING:NO FASTING: NO Constanza Cardozo MD CHEMISTRY Performing Organization Address [facility]/ZIP Co de Phone Number [facility] [address] [place] [address], [facility] [address] [place] [address] * LIPID PANEL W REFLEX MEASURED LDL (01/19/2024 3:19 PM CDT) [facility] Signature CHOLESTEROL, TOTAL 135 <200 mg/dL [facility] HDL CHOLESTEROL 64 > OR = 50 mg/dL [facility] TRIGLYCERIDES 119 <150 mg/dL [facility] LDL-CHOLESTEROL 50 mg/dL (calc) [facility] Comment: Reference range: <100 Desirable range <100 mg/dL for primary prevention; ?? <70 mg/dL for patients with CHD or diabetic patients with > or = 2 CHD risk factors. LDL-C is now calculated using the Joanie calculation, which is a validated novel method providing better accuracy than the Friedewald equation in the estimation of LDL-C. Mario CRUMP et al. ISIDORO. 2013;310(19): 6730-7228 (http://education.Cirrascale.MVP Interactive/faq/HGI286) CHOL/HDLC RATIO 2.1 <5.0 (calc) [facility] NON HDL CHOLESTEROL 71 <130 mg/dL (calc) [facility] Comment: For patients with diabetes plus 1 major ASCVD risk factor, treating to a non-HDL-C goal of <100 mg/dL (LDL-C of <70 mg/dL) is considered a therapeutic option. Blood BLOOD SPECIMEN / Unknown 01/19/2024 3:19 PM CDT 01/19/2024 3:21 PM CDT Narrative [facility] - 01/20/2024 5:41 AM CDT FASTING:NO FASTING: NO Constanza Cardozo MD CHEMISTRY Performing Organization Address [facility]/ZIP Co de Phone Number [employer] [facility] [address] [place] [address], [place] [phone] [facility] [address] [place] [address] * CBC W PLT NO DIFF (01/19/2024 3:19 PM CDT) [facility] WHITE BLOOD CELL COUNT 9.4 3.8 - 10.8 Thousand/u L [facility] RED BLOOD CELL COUNT 4.01 3.80 - 5.10 Million/uL [facility] HEMOGLOBIN 11.7 11.7 - 15.5 g/dL [facility] HEMATOCRIT 35.7 35.0 - 45.0 % [facility] MCV 89.0 80.0 - 100.0 fL [facility] MCH 29.2 27.0 - 33.0 pg [facility] MCHC 32.8 32.0 - 36.0 g/dL [facility] Comment: For adults, a slight decrease in the calculated MCHC value (in the range of 30 to 32 g/dL) is most likely not clinically significant; however, it should be interpreted with caution in correlation with other red cell parameters and the patient's clinical condition. RDW 12.3 11.0 - 15.0 % [facility] PLATELET COUNT 386 140 - 400 Thousand/u L [facility] MPV 9.7 7.5 - 12.5 fL [facility] Blood BLOOD SPECIMEN / Unknown 01/19/2024 3:19 PM CDT 01/19/2024 3:21 PM CDT Narrative [facility] - 01/20/2024 5:27 AM CDT FASTING:NO FASTING: NO Constanza Cardozo MD HEMATOLOGY [employer] [facility] [address] [place] [address], [facility] [address] [place] [address] * T4,FREE (01/19/2024 3:19 PM CDT) T4, FREE 1.5 0.8 - 1.8 ng/dL [facility] 01/19/2024 3:19 PM CDT 01/19/2024 3:21 PM CDT Narrative [facility] - 01/20/2024 10:33 AM CDT FASTING:NO FASTING: NO Constanza Cardozo MD CHEMISTRY [facility] [address] [place] [address], [facility] [address] [place] [address] * (ABNORMAL) COMP METABOLIC PANEL (01/19/2024 3:19 PM CDT) Pathologist [facility] GLUCOSE 104 65 - 139 mg/dL [facility] Comment: ? Non-fasting reference interval UREA NITROGEN (BUN) 26(H) 7 - 25 mg/dL [facility] CREATININE 1.16(H) 0.60 - 0.95 mg/dL [facility] EGFR 46(L) > OR = 60 mL/min/1.7 3m2 [facility] BUN/CREATININE RATIO 22 6 - 22 (calc) [facility] SODIUM 138 135 - 146 mmol/L [facility] POTASSIUM 4.7 3.5 - 5.3 mmol/L [facility] CHLORIDE 99 98 - 110 mmol/L [facility] CARBON DIOXIDE 27 20 - 32 mmol/L [facility] CALCIUM 9.4 8.6 - 10.4 mg/dL [facility] PROTEIN, TOTAL 7.2 6.1 - 8.1 g/dL [facility] ALBUMIN 4.0 3.6 - 5.1 g/dL [facility] GLOBULIN 3.2 1.9 - 3.7 g/dL (calc) [facility] ALBUMIN/GLOBULIN RATIO 1.3 1.0 - 2.5 (calc) [facility] BILIRUBIN, TOTAL 0.4 0.2 - 1.2 mg/dL [facility] ALKALINE PHOSPHATASE 82 37 - 153 U/L [facility] AST 32 10 - 35 U/L [facility] ALT 18 6 - 29 U/L [facility] Blood BLOOD SPECIMEN / Unknown 01/19/2024 3:19 PM CDT 01/19/2024 3:21 PM CDT Narrative [facility] - 01/20/2024 5:41 AM CDT FASTING:NO FASTING: NO Constanza Cardozo MD CHEMISTRY [employer] [facility] [address] [place] [address], [facility] [address] [place] [address] * (ABNORMAL) XR DXA BONE DENSITY 2 [...] greater than 5 years. Na Valdivia PA-C [facility] 10/11/2022 Narrative 10/11/2022 2:15 PM CDT For Patients: Results are automatically released to your [facility] account once available, in compliance with federal regulations. This means that you may see your results before your provider has had a chance to review them. Please allow 2-3 business days for your provider to comment on the results. XR DXA Bone Mineral Density (BMD) EXAM LOCATION: [facility] [address] [facility] [address] PATIENT NAME: Vanessa Andino DATE OF : [...] two scanners are made by the same net making supervisor. PROCEDURE: Dual-energy x-ray absorptiometry performed with [...] Documents on File Type Date Recorded Patient Registered Occupational Therapist Expl anation POLST 07/14/2017 8:01 AM 01/12/2017 Power of Director Product Safety 07/14/2017 7:57 AM 01/06 Healthcare Directive 07/14/2017 7:57 AM * Full Code (Latest Code Status on File) Date Activated Date Inactivated Comments 07/12/2017 7:10 AM 07/14/2017 4:57 PM * Full Code Date Activated Date Inactivated Comments 05/11/2016 10:33 AM 05/11/2016 7:12 PM * Full Code Date Activated Date Inactivated Comments 05/04/2016 7:01 AM 05/04/2016 3:07 PM Care Teams Blacksmith Helper Relationship Specialty Start Date End Date Constanza Cardozo MD [address] [place] [address] PCP - General Family Practice 08/25/22 Claudia, CHRISTIANNE Wang Clinical Coordinator 07/13/17 Sharif Nunez MD [address] [facility] [address] [place] [address] Rheumatology 10/08/21 Riley Camacho MD [address] [facility] [address] [address] Surgery - Urology 08/25/22
== END 2024-01-24 14:20 | disposition home or self-care (01) ==
LOC: WOUND 14:19
PROVIDERS: PCP Family Medicine; Visit Provider Surgery
DX: I87.2 Venous insufficiency (chronic) (peripheral) (principal); L94.2 Calcinosis cutis; L97.822 Non-pressure chronic ulcer of other part of left lower leg with fat layer exposed
CPT/HCPCS: 97597

== ENCOUNTER 2024-02-07 14:15 | Outpatient (CLI) | payer MEDICARE, BC, SELFPAY ==
--- OUTSIDE RECORDS SUMMARY | 2024-02-07 14:17 | XMS_ITS | Clinical Summary ---
Author Organization [facility] Address [place], [place] [address] Care Team Providers Care [employer] Name Role Phone ClaudiaBeto Ivan LUNAW Unavailable [phone] Sharif Nunez MD Unavailable [phone] Riley Camacho MD Unavailable [phone] Constanza Cardozo MD Primary Care Provider Allergies [...] once daily with a meal. 01/19/2024 Active clotrimazole (LOTRIMIN) 1 % creamIndications: Yeast dermatitis Apply topically to affected area(s) two times daily. 45 g 1 02/06/2024 Active predniSONE (DELTASONE) 1 mg tablet Take [...] weekly d/t ckd - Endo E-consult at [facility] 10/09/2020 with recommendation to continue fosamax for [...] She has hearing aids ([facility] in [place]). Obesity with body mass index 30 or greater 12/21 Arthritis, rheumatoid 08/17/2017 Overview (10/08/2021): RA Sees Dr. Nunez at [facility] [phone] fax [phone] Last Assessment & Plan: I went over [...] & Plan: She is here today because [facility] will not supply her with 6 catheters /day. They told her that medicare would only cover 4 catheters/day. She only has 10 catheters left and needs a supply. I contacted Verónica Escalante MANA[employer] OF [employer] [place] [facility]. She sees her on a routine basis. She will provide Vanessa with enough catheters to get by until her order from [employer] is delivered. She will drive to [place] to pick out hand the catheters. I had sent Dr. Lopez's order and visit note to [facility] in [place]. Renay Thelma will process the order and [...] Encounters Date Type Department Care Team Description 02/06/2024 11:35 AM LABEL FUSER TENDER Office Visit [facility] [address] [place] [address] Karmen Villanueva PA Vaginal Problem 02/06/2024 Travel 02/05/2024 Telephone [facility] [address] [place] [address] Meena Kumari MD Results (ultrasound) 02/02/2024 2:30 PM LABEL FUSER TENDER Ancillary Procedure [facility] [address] [place] [address] Arrived 02/02/2024 Telephone [facility] [address] [place] [address] Constanza aCrdozo MD Blood Pressure (Dropped off readings) 02/02/2024 Travel 02/02/2024 Telephone [facility] [address] [facility] [place] [address] Constanza Cardozo MD Blood Pressure 01/30/2024 Telephone [facility] [address] [facility] [place] [address] Meena Kumari MD Results (Needs repeat thyroid US) 01/29/2024 Telephone [facility] [address] [facility] [place] [address] Constanza Cardozo MD Results (Recommendations from endocrinology e-consult) 01/29/2024 E-Consult [facility] [address] [facility] [address] [place] [address] Fer Oleary MD 01/29/2024 Telephone [facility] [address] [place] [address] Constanza Cardozo MD Results 01/19/2024 2:20 PM CDT Office Visit [facility] [address] [place] [address] Constanza Cardozo MD Medicare ANNUAL (subsequent) Visit (83 Year Old female ); Throat Problem (Loses voice when going outside) 01/19/2024 Travel 11/13/2023 Refill [facility] [address] [facility] [place] [address] Riley Camacho MD Refill Request (Methenamine hippurate) from Last 3 Months Immunizations Name Administration Dates Next Due COVID-19 VACCINE SPIKEVAX (M ODERNA 50MCG/0.5ML) 12YO+ PFS 02/13/2023 COVID-19 vaccine (Moderna 100mcg/0.5mL) BALDEV MDV 08/25/2021,02/23/2021,08/03/2020,2020 [...] 0 01/19/2024 Social Connections Answer Date Recorded Do you often feel lonely or isolated from those around you? 0 02/06/2024 Financial Resource Strain Answer Date R ecorded Difficulty of Paying Living Expenses 3 02/06/2024 Difficulty of Paying Living Expenses Not on file 02/06/2024 Food Insecurity Answer Date Recorded Do you worry your food will run out before you are able to buy more? 1 02/06/2024 Transportation Needs Answer Date Record ed Does lack of transportation keep you from medica l appointments? 1 02/06/2024 Does lack of transportation keep you from work, meetings or getting things that you need? 1 02/06/2024 Housing Stability Answer Date Recorded What is your housing situation today? 1 02/06/2024 Sex and Gender Information Value Date Recorded Sex Assigned at Not on file Gender Identity Not on file Sexual Orientation Not on file Obstetrics History Last Filed Vital Signs Vital Sign Reading Time Taken Comments Blood Pressure 185/66 02/06/2024 11:45 AM LABEL FUSER TENDER Pulse 76 02/06/2024 11:27 AM LABEL FUSER TENDER Temperature 36.7 ??C (98 ??F) 02/06/2024 11:27 AM LABEL FUSER TENDER Respiratory Rate 16 05/01/2023 1:02 PM LABEL FUSER TENDER Oxygen Saturation 98% 02/06/2024 11:27 AM LABEL FUSER TENDER Inhaled Oxygen Concentration - - Weight 64.5 kg (142 lb 4.8 oz) 02/06/2024 11:27 AM LABEL FUSER TENDER Height 157.4 cm (5' 1.97) 01/19/2024 2:21 PM CD T Body Mass Index 26.05 01/19/2024 2:21 PM CDT Plan of Treatment Upcoming Encounters Date Type Department Care Team (Late st Contact Info) Description 02/12/2024 10:45 AM LABEL FUSER TENDER Orders Only [facility] [address] [place] [address] [place] 02/13/2024 1:30 PM LABEL FUSER TENDER Appointment [facility] [address] [place] [address] 02/14/2024 1:30 PM LABEL FUSER TENDER Appointment [facility] [address] [place] [address] Health Maintenance Due Date Last Done Comments [...] Patient Record) Medical Devices Implanted Type Area Electric Sealing Machine Operator Device Identifier Shelf Expiration Date Model / Serial / Lot Lead Bladder 28cm Interstim Tined 3mm Spacing - [id number] Implanted:Qty: 1 on 05/04/2016 by Cesar Groves MD at [facility] N/A: Sacrum [employer] 04/25/2020 3889-28# / / [id number] Stimulator 7.7mm 14cc Interstim Ii - [id number] Implanted:Qty: 1 on 05/11/2016 by Cesar Groves MD at [facility] N/A: Sacrum [employer] 10/07/2017 3058# / / [id number] Cmnt Bone 40g Simplex P Non Atb Mv - [id number] Implanted:Qty: 2 on 07/12/2017 by Igncaio Mead MD at [facility] Right: Knee [employer] 04/26/2018 6191-1-010 # / / [id number] Cmnt Bone 40g Simplex P Non Atb Mv - [id number] Implanted:Qty: 1 on 07/12/2017 by Ignacio Mead MD at [facility] Right: Knee [employer] 04/26/2018 6191-1-010 # / / [id number] A4088-X-631 - [id number] Implanted:Qty: 1 on 07/12/2017 by Ignacio Mead MD at [facility] Right: Knee [employer] 04/27/2022 5551-G-350 / / [id number] Description:Triathlon X3 Asy mmetric patella P0079-F-976 - [id number] Implanted:Qty: 1 on 07/12/2017 by Ignacio Mead MD at [facility] Right: Knee [employer] 03/11/2022 5520-B-500 / / [id number] Description:Triathlon primar y tibial baseplate T2440-A-433 - [id number] Implanted:Qty: 1 on 07/12/2017 by Ignacio Mead MD at [facility] Right: Knee [employer] 05/21/2021 5510-F-502 / / [id number] Description:Maddie oleary te retaining femoral L6888-Z-901 - [id number] Implanted:Qty: 1 on 07/12/2017 by Ignacio Mead MD at [facility] Right: Knee 5531-G-50 9 / / [id number] Description:X3 triathlon CS INS Explanted Type Area Electric Sealing Machine Operator Device Identifier Shelf Expiration Date Model / Serial / Lot Lead Intrdcr Bladder Interstim - [id number] Explanted:Qty: 1 on 05/04/2016 by Cesar Groves MD at [facility] N/A: Sacrum [employer] 05/27/2017 3550-18# / / [id number] Procedures Procedure Name Priority Date/Time Associated Diagnosis Comments US THYROID/PARATHYROI D Routine 02/02/2024 2:41 PM LABEL FUSER TENDER Thyroid nodule T4,FREE Routine 01/19/2024 3:19 PM CDT LIPID [...] Recently Relevant to Health Maintenance Results * US THYROID/PARATHYROID (02/02/2024 2:41 PM LABEL FUSER TENDER) Anatomical Region Laterality Modality THYROID Ultrasound 02/04/2024 7:13 AM LABEL FUSER TENDER Impressions 02/04/2024 7:13 AM LABEL FUSER TENDER No significant interval change in the 3.6 cm nodule within the right thyroid lobe. Dictated by Eliseo Gutierrez MD @ 02/04/2024 7:13:47 AM (Electronically Signed) Narrative 02/04/2024 7:13 AM LABEL FUSER TENDER For Patients: ??As a result of the Cures Act, medical imaging exams and procedure reports are released immediately into your electronic medical record. ??You may view this report before your referring provider. ??If you have questions, please contact your health care provider. INDICATION: Thyroid nodule COMPARISON: 01/31/2023 TECHNIQUE: Awad scale and color Doppler images were acquired of the thyroid gland. FINDINGS: Isthmus measures 3.5 millimeters. Mostly solid nodule midportion right thyroid lobe measures 3.6 x 3.2 x 2.8 cm, previously measuring 3.5 x 3.2 x 2.7 cm, TR 4. No additional nodule. The right lobe measures 4.4 x 3.4 x 3.5 cm and the left lobe measures 3.3 x 1.8 x 1.2 cm in size. The color Doppler images demonstrate normal vascularity. There is no evidence of cervical lymphadenopathy or parathyroid mass. Procedure Note Eliseo Gutierrez MD - 02/04/2024 For Patients: As a result of the Cures Act, medical imagingexams and procedure reports are released immediately into your electronicmedical record. You may view this report before your referring provider.If you have questions, please contact your health care provider. INDICATION: Thyroid nodule COMPARISON: 01/31/2023 TECHNIQUE: Awad scale and color Doppler images were acquired of the thyroid gland. FINDINGS: Isthmus measures 3.5 millimeters. Mostly solid nodule midportion rightthyroid lobe measures 3.6 x 3.2 x 2.8 cm, previously measuring 3.5 x 3.2 x2.7 cm, TR 4. No additional nodule. The right lobe measures 4.4 x 3.4 x3.5 cm and the left lobe measures 3.3 x 1.8 x 1.2 cm in size. The colorDoppler images demonstrate normal vascularity. There is no evidence ofcervical lymphadenopathy or parathyroid mass. IMPRESSION: No significant interval change in the 3.6 cm nodule within the rightthyroid lobe. Dictated by Eliseo Gutierrez MD @ 02/04/2024 7:13:47 AM (Electronically Signed) Meena Kumari MD * (ABNORMAL) TSH WITH REFLEX (01/19/2024 3:19 PM CDT) TSH W/REFLEX TO FT4 0.38(L) 0.40 - 4.50 mIU/L [facility] Blood BLOOD SPECIMEN / Unknown 01/19/2024 3:19 PM CDT 01/19/2024 3:21 PM CDT Narrative [facility] - 01/20/2024 10:33 AM CDT FASTING:NO FASTING: NO Constanza Cardozo MD CHEMISTRY [facility] [address] [place] [address], [facility] [address] [place] [address] * LIPID PANEL W REFLEX MEASURED LDL (01/19/2024 3:19 PM CDT) CHOLESTEROL, TOTAL 135 <200 mg/dL [facility] [...] LDL-C. Mario CRUMP et al. ISIDORO. 2013;310(19): 9658-4085 (http://education.Peerz/faq/HIW605) CHOL/HDLC RATIO 2.1 <5.0 (calc) [facility] [...] FASTING:NO FASTING: NO Constanza Cardozo MD CHEMISTRY [facility] [address] [place] [address], [facility] [address] [place] [address] * CBC W PLT NO DIFF (01/19/2024 3:19 PM CDT) WHITE BLOOD CELL COUNT 9.4 3.8 - 10.8 Thousand/u L [facility] RED BLOOD CELL COUNT 4.01 3.80 - 5.10 Million/uL [facility] HEMOGLOBIN 11.7 11.7 - 15.5 g/dL [facility] HEMATOCRIT 35.7 35.0 - 45.0 % [facility] MCV 89.0 80.0 - 100.0 fL [facility] MCH 29.2 27.0 - 33.0 pg [facility] MCHC 32.8 32.0 - 36.0 g/dL [facility] Comment: For adults, a slight decrease in the calculated MCHC value (in the range of 30 to 32 g/dL) is most likely not clinically significant; however, it should be interpreted with caution in correlation with other red cell parameters and the patient's clinical condition. RDW 12.3 11.0 - 15.0 % [facility] PLATELET COUNT 386 140 - 400 Thousand/u L [facility] MPV 9.7 7.5 - 12.5 fL [facility] Blood BLOOD SPECIMEN / Unknown 01/19/2024 3:19 PM CDT 01/19/2024 3:21 PM CDT Narrative [facility] - 01/20/2024 5:27 AM CDT FASTING:NO FASTING: NO Constanza Cardozo MD HEMATOLOGY Performing Organization Address [facility]/ZIP Co de Phone Number [facility] [address] [place] [address], [facility] [address] [place] [address] * T4,FREE (01/19/2024 3:19 PM CDT) T4, FREE 1.5 0.8 - 1.8 ng/dL [facility] 01/19/2024 3:19 PM CDT 01/19/2024 3:21 PM CDT Narrative [facility] - 01/20/2024 10:33 AM CDT FASTING:NO FASTING: NO Constanza Cardozo MD CHEMISTRY Performing Organization Address [facility] Co de Phone Number [facility] [address] [place] [address], [facility] [address] [place] [address] * (ABNORMAL) COMP METABOLIC PANEL (01/19/2024 3:19 PM CDT) GLUCOSE 104 65 - 139 mg/dL [facility] Comment: ? Non-fasting reference interval UREA NITROGEN (BUN) 26(H) 7 - 25 mg/dL [facility] CREATININE 1.16(H) 0.60 - 0.95 mg/dL [facility] EGFR 46(L) > OR = [...] PM CDT 01/19/2024 3:21 PM CDT Narrative [facility] - 01/20/2024 5:41 AM CDT FASTING:NO FASTING: NO Constanza Cardozo MD CHEMISTRY [facility] [facility] [address] [place] [address], [facility] [address] [place] [address] * (ABNORMAL) XR DXA BONE DENSITY 2 [...] Patients: Results are automatically released to your [facility] account once available, in compliance with federal regulations. This means that you may see your results before your provider has had a chance to review them. Please allow 2-3 business days for your provider to comment on the results. XR DXA Bone Mineral Density (BMD) EXAM LOCATION: [address] [address] PATIENT NAME: Vanessa Andino DATE OF : [...] two scanners are made by the same pbx mechanic. PROCEDURE: Dual-energy x-ray absorptiometry performed with [...] Documents on File Type Date Recorded Patient Cutting Inspector Expl anation POLST 07/14/2017 8:01 AM 01/12/2017 Power of Diamond Cleaver 07/14/2017 7:57 AM 01/06 Healthcare Directive 07/14/2017 7:57 AM * Full Code (Latest Code Status on File) Date Activated Date Inactivated Comments 07/12/2017 7:10 AM 07/14/2017 4:57 PM * Full Code Date Activated Date Inactivated Comments 05/11/2016 10:33 AM 05/11/2016 7:12 PM * Full Code Date Activated Date Inactivated Comments 05/04/2016 7:01 AM 05/04/2016 3:07 PM Care Teams [employer] Relationship Specialty Start Date End Date Constanza Cardozo MD [address] [place] [address] PCP - General Family Practice 08/25/22 Beto Taylor LSW Facility Service Manager 07/13/17 Sharif Nunez MD [address] [facility] [address] [place] [address] Rheumatology 10/08/21 Riley Camacho MD [address] [place], [place] [address] [address] Surgery - Urology 08/25/22
== END 2024-02-07 14:16 | disposition home or self-care (01) ==
LOC: WOUND 14:15
PROVIDERS: PCP Family Medicine; Visit Provider Surgery
DX: I87.2 Venous insufficiency (chronic) (peripheral) (principal); L97.822 Non-pressure chronic ulcer of other part of left lower leg with fat layer exposed; L94.2 Calcinosis cutis
CPT/HCPCS: 97597

== ENCOUNTER 2024-02-21 14:17 | Outpatient (CLI) | payer MEDICARE, BC, SELFPAY ==
--- OUTSIDE RECORDS SUMMARY | 2024-02-21 14:19 | XMS_ITS | Clinical Summary ---
Author Organization [facility] Address [place], [place] [address] Care Team Providers Care Diesel Engine Engineer Name Role Phone ClaudiaBeto Ivan FAUST Unavailable [phone] Sharif Nunez MD Unavailable [phone] Riley Camacho MD Unavailable [phone] Constanza Cardozo MD Primary Care Provider Allergies [...] tablet by mouth once daily. 01/11/2010 Active multivitamin-calciminer als therapeutic tablet Take 1 tablet by [...] a meal. 0 10/08/2021 Active Catheter 14 FrIndications:Urin gutierrez retention Coloplast Speedie Cath 6 times each day as directed 180 Each 01/04/2023 Active methenamine hippurate (HIPREX) 1 gram tabletIndications: Recurrent UTI (urinary tract infection) Take 1 Tablet (1 g) by mouth two times daily. 180 Tablet 1 11/16/2023 Active alendronate (FOSAMAX) 70 mg tabletIndications: Age related osteoporosis, unspecified pathological fracture presence Take 1 Tablet (70 mg) by mouth once a week in the morning. Take on empty stomach with full glass of water. Do not lie down for 1 hr. 12 Tablet 3 01/19/2024 Active furosemide (LASIX) 20 mg tabletIndications: Bilateral lower extremity edema Take 1 Tablet (20 mg) by mouth two times daily. 200 Tablet 3 01/19/2024 Active losartan (COZAAR) 50 mg tabletIndications: HTN (hypertension) Take 1 Tablet (50 mg) by mouth once daily. 100 Tablet 3 01/19/2024 Active predniSONE (DELTASONE) 1 mg tablet Take 2 Tablets (2 mg) by mouth once daily with a meal. 01/19/2024 Active clotrimazole (LOTRIMIN) 1 % creamIndications:Y east dermatitis Apply topically to affected area(s) two times daily. 45 g 1 02/06/2024 Active Active Problems Problem Noted Date Diagnosed Date White coat syndrome with hypertension 02/13/2023 Age-related osteoporosis wit hout current pathological fracture 10/11/2022 Overview (10/11/2022): - Fosamax started 10/16/2018 for osteopenia with elevated hip fracture risk. 35 mg weekly d/t ckd - Endo E-consult at [place] 10/09/2020 with recommendation to continue fosamax for [...] She has hearing aids ([facility] in [place]). Obesity with body mass index 30 or greater 12/21 Arthritis, rheumatoid 08/17/2017 Overview (10/08/2021): RA Sees Dr. Nunez at [facility] [place] [phone] fax [phone] Last Assessment & Plan: I went over [...] & Plan: She is here today because [facility] will not supply her with 6 catheters /day. They told her that medicare would only cover 4 catheters/day. She only has 10 catheters left and needs a supply. I contacted Verónica Escalante NP [place] [facility]. She sees her on a routine basis. She will provide Vanessa with enough catheters to get by until her order from [facility] is delivered. She will drive to [place] to belt picker the catheters. I had sent Dr. Lopez's order and visit note to [facility] in [place]. Renay Renee will process the order and [...] Encounters Date Type Department Care Team Description 02/14/2024 1:30 PM CATALYST RECOVERY OPERATOR - 02/14/2024 11:59 PM [email or web address] Hospital Encounter [facility] [address] [place] [address] Constanza Cardozo MD 02/14/2024 Travel 02/13/2024 1:22 PM CATALYST RECOVERY OPERATOR - 02/13/2024 11:59 PM CATALYST RECOVERY OPERATOR Hospital Encounter [facility] [address] [address] Constanza Cardozo MD Subclinical hyperthyroidism 02/12/2024 10:45 AM CATALYST RECOVERY OPERATOR Orders Only [facility] [address] [place] [address] Lab, [facility] 02/12/2024 Travel 02/06/2024 11:35 AM CATALYST RECOVERY OPERATOR Office Visit [facility] [address] [place] [address] Karmen Villnaueva PA Vaginal Problem 02/06/2024 Travel 02/05/2024 Telephone [facility] [address] [place] [address] Meena Kumari MD Results (ultrasound) 02/02/2024 2:30 PM CATALYST RECOVERY OPERATOR Ancillary Procedure [facility] [address] [place] [address] 02/02/2024 Telephone [facility] [address] [place] [address] Constanza Cardozo MD Blood Pressure (Dropped off readings) 02/02/2024 Travel 02/02/2024 Telephone [facility] [address] [place] [address] Constanza Cardozo MD Blood Pressure 01/30/2024 Telephone [facility] [address] [place] [address] Meena Kumari MD Results (Needs repeat thyroid US) 01/29/2024 Telephone [facility] [address] [place] [address] Constanza Cardozo MD Results (Recommendations from endocrinology e-consult) 01/29/2024 E-Consult [facility] [address] [facility] [address] [place] [address] Fer Oleary MD 01/29/2024 Telephone [facility] [address] [place] [address] Constanza Cardozo MD Results 01/19/2024 2:20 PM CDT Office Visit [facility] [address] [place] [address] Constanza Cardozo MD Medicare ANNUAL (subsequent) Visit (83 Year Old female ); Throat Problem (Loses voice when going outside) 01/19/2024 Travel from Last 3 Months Immunizations Name Administration Dates Next Due COVID-19 VACCINE SPIKEVAX (M ODERNA 50MCG/0.5ML) 12YO+ PFS 02/13/2023 COVID-19 vaccine (Moderna 100mcg/0.5mL) PF, MDV 08/25/2021,02/23/2021,08/03/2020,2020 COVID-19 vaccine (Hipscan-Bio NTech 30mcg/0.3mL) 12YO+ BIVALENT PF, MDV 01/04/2022 [...] Comments Blood Pressure 185/66 02/06/2024 11:45 AM CATALYST RECOVERY OPERATOR Pulse 76 02/06/2024 11:27 AM CATALYST RECOVERY OPERATOR Temperature 36.7 C (98 F) 02/06/2024 11:27 AM CATALYST RECOVERY OPERATOR Respiratory Rate 16 05/01/2023 1:02 PM CATALYST RECOVERY OPERATOR Oxygen Saturation 98% 02/06/2024 11:27 AM CATALYST RECOVERY OPERATOR Inhaled Oxygen Concentration - - Weight 64.5 kg (142 lb 4.8 oz) 02/06/2024 11:27 AM CATALYST RECOVERY OPERATOR Height 157.4 cm (5' 1.97) 01/19/2024 2:21 [...] Patient Record) Medical Devices Implanted Type Area Trade Embalmer Device Identifier Shelf Expiration Date Model / Serial / Lot Lead Bladder 28cm Interstim Tined 3mm Spacing - [id number] Implanted:Qty: 1 on 05/04/2016 by Cesar Groves MD at [facility] N/A: Sacrum [employer] 04/25/2020 3889-28# / / [id number] Stimulator 7.7mm 14cc Interstim Ii - [id number] Implanted:Qty: 1 on 05/11/2016 by Cesar Groves MD at [facility] N/A: Sacrum [employer] 10/07/2017 3058# / / [id number] Cmnt Bone 40g Simplex P Non Atb Mv - [id number] Implanted:Qty: 2 on 07/12/2017 by Ignacio Mead MD at [facility] Right: Knee [employer] 04/26/2018 6191-1-010 # / / [id number] Cmnt Bone 40g Simplex P Non Atb Mv - [id number] Implanted:Qty: 1 on 07/12/2017 by Ignacio Mead MD at [facility] Right: Knee [employer] 04/26/2018 6191-1-010 # / / [id number] Y4314-I-398 - [id number] Implanted:Qty: 1 on 07/12/2017 by Ignacio Mead MD at [facility] Right: Knee [employer] 04/27/2022 5551-G-350 / / [id number] Description:Triathlon X3 Asy mmetric patella Z2956-I-308 - [id number] Implanted:Qty: 1 on 07/12/2017 by Ignacio Mead MD at [facility] Right: Knee [employer] 03/11/2022 5520-B-500 / / [id number] Description:Triathlon primar y tibial baseplate R1413-I-047 - [id number] Implanted:Qty: 1 on 07/12/2017 by Ignacio Mead MD at [facility] Right: Knee [employer] 05/21/2021 5510-F-502 / / [id number] Description:Triathlon crucia te retaining femoral A8539-I-668 - [id number] Implanted:Qty: 1 on 07/12/2017 by Ignacio Mead MD at [facility] Right: Knee 5531-G-50 9 / / [id number] Description:X3 triathlon CS INS Explanted Type Area Trade Embalmer Device Identifier Shelf Expiration Date Model / Serial / Lot Lead Intrdcr Bladder Interstim - [id number] Explanted:Qty: 1 on 05/04/2016 by Cesar Groves MD at [facility] N/A: Sacrum [employer] Pain Therapy 05/27/2017 3550-18# / / [id number] Procedures Procedure Name Priority Date/Time Associated Diagnosis Comments NM THYROID UPTAKE W/BLOOD FLOW SNGLE MULT RUSH JI Routine 02/14/2024 2:55 PM CATALYST RECOVERY OPERATOR Subclinical hyperthyroidism T3,TOTAL Routine 02/12/2024 10:40 AM CATALYST RECOVERY OPERATOR Subclinical hyperthyroidism TSI (THYROID STIMULATING IMMUNOGLOBULIN) (QUEST) Routine 02/12/2024 10:40 AM CATALYST RECOVERY OPERATOR Subclinical hyperthyroidism US THYROID/PARATHYROID Routine 02/02/2024 2:41 PM CATALYST RECOVERY OPERATOR Thyroid nodule T4,FREE Routine 01/19/2024 3:19 PM [...] Recently Relevant to Health Maintenance Results * NM THYROID UPTAKE W/BLOOD FLOW SNGLE MULT RUSH JI (02/14/2024 2:55 PM CATALYST RECOVERY OPERATOR) Anatomical Region Laterality Modality THYROID Nuclear Medicine 02/14/2024 5:12 PM CATALYST RECOVERY OPERATOR Impressions 02/14/2024 5:12 PM CATALYST RECOVERY OPERATOR 1. Scintigraphically heterogeneous appearing right thyroid lobe which may reflect a dominant right thyroid lobe nodule reportedly biopsied and proven as benign. Please correlate with any pertinent pathology results. 2. Low normal 24 hour thyroid uptake of 10.2 percent. Dictated by Ignacio Ocasio MD @ 02/14/2024 5:12:41 PM (Electronically Signed) Narrative 02/14/2024 5:12 PM CATALYST RECOVERY OPERATOR For Patients: As a result of the Century Cures Act, medical imaging exams and procedure reports are released immediately into your electronic medical record. You may view this report before your referring provider. If you have questions, please contact your health care provider. INDICATION: Subclinical hyperthyroidism. Dominant right thyroid lobe nodule measuring up to 3.6 cm on a recent ultrasound February 02, 2024. By history the patient may have had a fine-needle aspiration/biopsy of this nodule, reportedly benign. TECHNIQUE : 222 microcuries I-123 administered orally on February 13, 2024. Uptake and scan February 14, 2024. COMPARISON: Correlation is made with a thyroid ultrasound February 02, 2024. Correlation is made with a noncontrast chest CT August 04, 2023. FINDINGS: There is relatively normal uptake within the left thyroid lobe. There is heterogeneous and somewhat decreased uptake within the right thyroid gland which may reflect the patient`s dominant right-sided thyroid lobe nodule. This would suggest a cold nodule or a nonfunctioning adenoma. Please correlate with any pertinent pathology result. 24 hour thyroid uptake is at the lower limit of normal of 10.2 percent. Procedure Note Ignacio Ocasio MD - 02/14/2024 For Patients: As a result of the Cures Act, medical imagingexams and procedure reports are released immediately into your electronicmedical record. You may view this report before your referring provider.If you have questions, please contact your health care provider. INDICATION: Subclinical hyperthyroidism. Dominant right thyroid lobe nodule measuringup to 3.6 cm on a recent ultrasound February 02, 2024. By history thepatient may have had a fine-needle aspiration/biopsy of this nodule,reportedly benign. TECHNIQUE : 222 microcuries I-123 administered orally on February 13, 2024. Uptake andscan February 14, 2024. COMPARISON: Correlation is made with a thyroid ultrasound February 02, 2024. Correlation is made with a noncontrast chest CT August 04, 2023. FINDINGS: There is relatively normal uptake within the left thyroid lobe. There is heterogeneous and somewhat decreased uptake within the rightthyroid gland which may reflect the patient`s dominant right-sided thyroidlobe nodule. This would suggest a cold nodule or a nonfunctioningadenoma. Please correlate with any pertinent pathology result. 24 hour thyroid uptake is at the lower limit of normal of 10.2 percent. IMPRESSION: 1. Scintigraphically heterogeneous appearing right thyroid lobe which mayreflect a dominant right thyroid lobe nodule reportedly biopsied andproven as benign. Please correlate with any pertinent pathology results. 2. Low normal 24 hour thyroid uptake of 10.2 percent. Dictated by Ignacio Ocasio MD @ 02/14/2024 5:12:41 PM (Electronically Signed) Constanza Cardozo MD NM * TSI (THYROID STIMULATING IMMUNOGLOBULIN) (QUEST) (02/12/2024 10:40 AM CATALYST RECOVERY OPERATOR) TSI (THYROID STIMULATING IMMUNOGLOBULIN) <89 <140 % baseline [facility]/ [facility], Comment: Thyroid stimulating immunoglobulins (TSI) can engage the TSH receptors resulting in hyperthyroidism in Graves' disease patients. TSI levels can be useful in monitoring the clinical outcome of Graves' disease as well as assessing the potential for hyperthyroidism from maternal- transfer. TSI results greater than or equal to (>=) 140% of the Reference Control are considered positive. NOTE: A serum TSH level greater than 350 micro-International Units/mL can interfere with the TSI bioassay and potentially give false positive results. Patients who are and are suspected of having hyperthyroidism should have both TSI and human Chorionic Gonadotropin (hCG) tests measured. A serum hCG level greater than 40,625 mIU/mL can interfere with the TSI bioassay and may give false negative results. In these patients it is recommended that a second TSI be obtained when the hCG concentration falls below 40,625 mIU/mL (usually after approximately 20-weeks gestation). The analytical performance characteristics of this assay have been determined by [facility]. The modifications have not been cleared or approved by the FDA. This assay has been validated pursuant to the CLIA regulations and is used for clinical purposes. Blood BLOOD SPECIMEN / Unknown 02/12/2024 10:40 AM CATALYST RECOVERY OPERATOR 02/12/2024 10:41 AM CATALYST RECOVERY OPERATOR Constanza Cardozo MD SEND OUTS [email or web address] [facility] [address] [place] [address], [facility], [address] [place] [address] * T3,TOTAL (02/12/2024 10:40 AM CATALYST RECOVERY OPERATOR) T3, TOTAL 99 76 - 181 ng/dL [facility] Blood BLOOD SPECIMEN / Unknown 02/12/2024 10:40 AM CATALYST RECOVERY OPERATOR 02/12/2024 10:41 AM CATALYST RECOVERY OPERATOR Constanza Cardozo MD CHEMISTRY [email or web address] [address] [place] [address], [place] [phone] [facility] [address] [place] [address] * US THYROID/PARATHYROID (02/02/2024 2:41 PM CATALYST RECOVERY OPERATOR) Anatomical Region Laterality Modality THYROID Ultrasound 02/04/2024 7:13 AM CATALYST RECOVERY OPERATOR Impressions 02/04/2024 7:13 AM CATALYST RECOVERY OPERATOR No significant interval change in the 3.6 cm nodule within the right thyroid lobe. Dictated by Eliseo Gutierrez MD @ 02/04/2024 7:13:47 AM (Electronically Signed) Narrative 02/04/2024 7:13 AM CATALYST RECOVERY OPERATOR For Patients: As a result of the Century Cures Act, medical imaging exams and procedure reports are released immediately into your electronic medical record. You may view this report before your referring provider. If you have questions, please contact your [...] 7:13:47 AM (Electronically Signed) Meena Kumari MD US * (ABNORMAL) TSH WITH REFLEX (01/19/2024 3:19 PM CDT) TSH W/REFLEX TO FT4 0.38(L) 0.40 - 4.50 mIU/L [facility] [place] Blood BLOOD SPECIMEN / Unknown 01/19/2024 3:19 PM CDT 01/19/2024 3:21 PM CDT Narrative [facility] - 01/20/2024 10:33 AM CDT FASTING:NO FASTING: NO Constanza Cardozo MD CHEMISTRY [facility] [address] [place] [address], [place] [phone] [facility] [address] [place] [address] * LIPID PANEL W REFLEX MEASURED LDL (01/19/2024 3:19 PM CDT) [facility] CHOLESTEROL, TOTAL 135 <200 mg/dL [facility] [place] HDL CHOLESTEROL 64 > OR = 50 mg/dL [facility] [place] TRIGLYCERIDES 119 <150 mg/dL [facility] [place] LDL-CHOLESTEROL 50 mg/dL (calc) [facility] Comment: Reference range: <100 Desirable range <100 mg/dL for primary prevention; <70 mg/dL for patients with CHD or diabetic patients with > or = 2 CHD risk factors. LDL-C is now calculated using the Joanie calculation, which is a validated novel method providing better accuracy than the Friedewald equation in the estimation of LDL-C. Mario SS et al. ISIDORO. 2013;310(19): 7038-8674 (http://education.[employer]/faq/NLM518) CHOL/HDLC RATIO 2.1 <5.0 (calc) [facility] [place] NON HDL CHOLESTEROL 71 <130 mg/dL (calc) [facility] [place] Comment: For patients with diabetes plus 1 major ASCVD risk factor, treating to a non-HDL-C goal of <100 mg/dL (LDL-C of <70 mg/dL) is considered a therapeutic option. Blood BLOOD SPECIMEN / Unknown 01/19/2024 3:19 PM CDT 01/19/2024 3:21 PM CDT Narrative [facility] - 01/20/2024 5:41 AM CDT FASTING:NO FASTING: NO Constanza Cardozo MD CHEMISTRY [email or web address] [address] [place] [address], [facility] [address] [place] [address] * CBC W PLT NO DIFF (01/19/2024 3:19 PM CDT) [facility] WHITE BLOOD CELL COUNT 9.4 3.8 - 10.8 Thousand/u L [facility] [place] RED BLOOD CELL COUNT 4.01 3.80 - 5.10 Million/uL [facility] [place] HEMOGLOBIN 11.7 11.7 - 15.5 g/dL [facility] [place] HEMATOCRIT 35.7 35.0 - 45.0 [...] RDW 12.3 11.0 - 15.0 % [facility] [place] PLATELET COUNT 386 140 - 400 Thousand/u L [facility] [place] MPV 9.7 7.5 - 12.5 fL [facility] [place] Blood BLOOD SPECIMEN / Unknown 01/19/2024 3:19 PM CDT 01/19/2024 3:21 PM CDT Narrative [facility] - 01/20/2024 5:27 AM CDT FASTING:NO FASTING: NO Constanza Cardozo MD HEMATOLOGY [email or web address] [place] [address] [place] [address], [facility] [address] [place] [address] * T4,FREE (01/19/2024 3:19 PM CDT) Pathologist [facility] T4, FREE 1.5 0.8 - 1.8 ng/dL [facility] [place] 01/19/2024 3:19 PM CDT 01/19/2024 3:21 PM CDT Narrative [facility] - 01/20/2024 10:33 AM CDT FASTING:NO FASTING: NO Constanza Cardozo MD CHEMISTRY [email or web address] [address] [place] [address], [facility] [address] [place] [address] * (ABNORMAL) COMP METABOLIC PANEL (01/19/2024 3:19 PM CDT) GLUCOSE 104 65 - 139 mg/dL [facility] [place] Comment: Non-fasting reference interval UREA NITROGEN (BUN) 26(H) [...] 01/20/2024 5:41 AM CDT FASTING:NO FASTING: NO Consatnza Cardozo MD CHEMISTRY [facility] [address] [place] [address], [facility] [address] [place] [address] * (ABNORMAL) XR DXA BONE DENSITY 2 [...] ensure improvement of bone density with medications. Continue if appropriate. Consider a drug holiday if on fosamax greater than 5 years. Na Valdivia PA-C [facility] 10/11/2022 Narrative 10/11/2022 2:15 PM CDT For Patients: Results are automatically released to your [employer] ([employer]t) account once available, in compliance with federal regulations. This means that you may see your results before your provider has had a chance to review them. Please allow 2-3 business days for your provider to comment on the results. XR DXA Bone Mineral Density (BMD) EXAM LOCATION: [address] [address] PATIENT NAME: Vanessa Andino DATE OF : 1940 EXAM DATE: 10/06/2022 REQUESTING PROVIDER: Constanza Cardozo MD GENDER AT : female HEIGHT: 5' 1.5 (10/15/2021) WEIGHT: 141 lb 6.4 oz (08/25/2022) MENOPAUSAL STATUS: Postmenopausal [...] two scanners are made by the same court orderly. PROCEDURE: Dual-energy x-ray absorptiometry performed with routine technique. Reporting is completed in the form of a T-score. The T-score represents the standard deviation from peak bone mass based on young healthy adult. A Z-score is used for diagnosis in premenopausal women, and for men under the age of 50. FINDINGS: RESULT LUMBAR SPINE L2 - L4 (L3) BMD: 1.205 g/cm2 T-Score: - 0.1 Z-Score: + 1.8 Change from prior: None RESULTS FEMUR Left femoral neck BMD: 0.887 g/cm2 T-Score: - 1.1 Z-Score: + 1.2 Change from prior: None Right femoral neck BMD: 0.867 g/cm2 T-Score: - 1.2 Z-Score: + 1.1 Change from prior: None Left hip BMD: 0.791 g/cm2 T-Score: - 1.7 Z-Score: + 0.4 Change from prior: None Right hip BMD: 0.811 g/cm2 T-Score: - 1.6 Z-Score: + 0.6 Change from prior: None RESULT FOREARM Right Forearm distal radius BMD: 0.346 g/cm2 T-Score: - 5.4 Z-Score: - 2.5 Change from prior: None WHO criteria: Normal: T-score at or above -1 SD Osteopenia: T-score between -1.1 and -2.4 SD Osteoporosis: T-score at or below -2.5 SD Constanza GOODWIN from Last 3 Months or Most Recently Relevant to Health Maintenance Advance Directives Documents on File Type Date Recorded Patient Aeroplane Pilot Expl anation POLST 07/14/2017 8:01 AM 01/12/2017 Power of Welt Edge Rounder 07/14/2017 7:57 AM 01/06 Healthcare Directive 07/14/2017 7:57 AM * Full Code (Latest Code Status on File) Date Activated Date Inactivated Comments 07/12/2017 7:10 AM 07/14/2017 4:57 PM * Full Code Date Activated Date Inactivated Comments 05/11/2016 10:33 AM 05/11/2016 7:12 PM * Full Code Date Activated Date Inactivated Comments 05/04/2016 7:01 AM 05/04/2016 3:07 PM Care Teams Diesel Engine Engineer Relationship Specialty Start Date End Date Constanza Cardozo MD [address] [facility] [address] PCP - General Family Practice 08/25/22 Claudia, JEREMY WangW Optical Manager 07/13/17 Sharif Nunez MD [address] [facility] [address] [address] Rheumatology 10/08/21 Riley Camacho MD [address] [facility] [address] [address] Surgery - Urology 08/25/22
== END 2024-02-21 14:18 | disposition home or self-care (01) ==
LOC: WOUND 14:17
PROVIDERS: PCP Family Medicine; Visit Provider Physician Assistant
DX: I87.2 Venous insufficiency (chronic) (peripheral) (principal); L97.822 Non-pressure chronic ulcer of other part of left lower leg with fat layer exposed; L94.2 Calcinosis cutis
CPT/HCPCS: 97597

== ENCOUNTER 2024-03-06 14:17 | Outpatient (CLI) | payer MEDICARE, BC, SELFPAY | END 2024-03-06 14:18 | disposition home or self-care (01) | LOC: WOUND 14:18 | PROVIDERS: PCP Family Medicine; Visit Provider Surgery | DX: I87.2 Venous insufficiency (chronic) (peripheral) (principal); L97.822 Non-pressure chronic ulcer of other part of left lower leg with fat layer exposed; L94.2 Calcinosis cutis | CPT/HCPCS: 97597 ==

== ENCOUNTER 2024-03-21 13:09 | Outpatient (CLI) | payer MEDICARE, BC, SELFPAY | END 2024-03-21 13:10 | disposition home or self-care (01) | LOC: WOUND 13:09 | PROVIDERS: PCP Family Medicine; Visit Provider Nurse Practitioner Family | DX: I87.2 Venous insufficiency (chronic) (peripheral) (principal); L97.822 Non-pressure chronic ulcer of other part of left lower leg with fat layer exposed; L94.2 Calcinosis cutis | CPT/HCPCS: 97597 ==

== ENCOUNTER 2024-04-03 14:17 | Outpatient (CLI) | payer MEDICARE, BC, SELFPAY | END 2024-04-03 14:18 | disposition home or self-care (01) | PROVIDERS: PCP Family Medicine; Visit Provider Surgery | DX: I87.2 Venous insufficiency (chronic) (peripheral) (principal); L97.822 Non-pressure chronic ulcer of other part of left lower leg with fat layer exposed; L94.2 Calcinosis cutis | CPT/HCPCS: 87070; 97597 ==

== ENCOUNTER 2024-04-10 14:38 | Outpatient (CLI) | payer MEDICARE, BC, SELFPAY | END 2024-04-10 14:39 | disposition home or self-care (01) | LOC: WOUND 14:38 | PROVIDERS: PCP Family Medicine; Visit Provider Surgery | DX: I87.2 Venous insufficiency (chronic) (peripheral) (principal); L97.822 Non-pressure chronic ulcer of other part of left lower leg with fat layer exposed; L94.2 Calcinosis cutis | CPT/HCPCS: 97602 ==

== ENCOUNTER 2024-04-24 14:12 | Outpatient (CLI) | payer MEDICARE, BC, SELFPAY | END 2024-04-24 14:13 | disposition home or self-care (01) | LOC: WOUND 14:12 | PROVIDERS: PCP Family Medicine; Visit Provider Surgery | DX: I87.2 Venous insufficiency (chronic) (peripheral) (principal); L97.822 Non-pressure chronic ulcer of other part of left lower leg with fat layer exposed | CPT/HCPCS: 97597 ==

== ENCOUNTER 2024-05-04 05:56 | Emergency (ER) | payer MEDICARE, BC, SELFPAY ==
--- OUTSIDE RECORDS SUMMARY | 2024-05-04 05:59 | XMS_ITS | Continuity of Care Document ---
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 Operator Name Role Phone Sharif Nunez MD Unavailable Unavailable Allergies, Adverse Reactions, Alerts Substance Reaction Status Criticality tramadol Nausea Active No Information leflunomide Blurred VIsion Active No Informatio n methotrexate Blurred VIsionbladde r dysfunction Active No Information Sulfa (Sulfonamide Antibiotics) Active No Information HYDROCODONE BITARTRATE Active No In formation oxycodone Active No Information hydrocodone Active No Information Medications Medication Instructions Dosage Effective Dates (start - stop) Status Comments prednisone 1 mg tablet TAKE 2 TABLETS BY MOUTH EVERY DAY - Active Take in the morning with food Plaquenil 200 mg tablet 200mg bid every other day, 200mg once daily every other day - Active methotrexate sodium 2.5 mg tablet take 6 Tablet by Oral route every week 15 MG - Active methenamine hippurate 1 gram tablet take 1 tablet by oral route 2 times every day 1 G - Active furosemide 20 mg tablet take 1 tablet by oral route every day 20 MG - Active amlodipine 5 mg tablet take 1 tablet by oral route every day 5 MG - Active alendronate 35 mg tablet take 1 tablet by oral route every week in the morning, at least 30 min before first food, beverage, or medication of day 35 MG - Active Aspirin Low Dose 81 mg tablet,delayed release take 1 tablet by oral route every day 81 MG - Active MULTIVITAMIN (unknown strength) 1 daily Not Available - Active Calcium 500 mg (1,250 mg) + D3 125 unit tablet - Active prednisone 1 mg tablet TAKE 2 TABLETS BY MOUTH EVERY DAY - No Longer Active Take in the morning with food Plaquenil 200 mg tablet 200mg bid every other day, 200mg once daily every other day - No Longer Active methotrexate sodium 2.5 mg tablet take 5 Tablet by Oral route every week 12.5 MG - No Longer Active Procedures Procedure Date Office/Outpatient Visit, Est Complex e/m visit add on Routine Venipuncture Rbc Sed Rate, Automated Assay Of Serum Albumin Assay Of Creatinine Transferase (Ast) (Sgot) Alanine Amino (Alt) (Sgpt) CReactive Protein Complete Cbc WAuto Diff Wbc Office/Outpatient Visit, Est Complex e/m visit add on Routine Venipuncture Rbc Sed Rate, Automated Assay Of Serum Albumin Assay Of Creatinine Transferase (Ast) (Sgot) Alanine Amino (Alt) (Sgpt) CReactive Protein Complete Cbc WAuto Diff Wbc Office/Outpatient Visit, Est Routine Venipuncture Rbc Sed Rate, Automated Assay Of Serum Albumin Assay Of Creatinine Transferase (Ast) (Sgot) Alanine Amino (Alt) (Sgpt) CReactive Protein Complete Cbc WAuto Diff Wbc Office/Outpatient Visit, Est Routine Venipuncture Rbc Sed Rate, Automated Assay Of Serum Albumin Assay Of Creatinine Transferase (Ast) (Sgot) Alanine Amino (Alt) (Sgpt) CReactive Protein Complete Cbc WAuto Diff Wbc Office/Outpatient Visit, Est Routine Venipuncture Rbc Sed Rate, Nonautomated CReactive Protein Assay Of Serum Albumin Assay Of Creatinine Transferase (Ast) (Sgot) Alanine Amino (Alt) (Sgpt) Complete Cbc WAuto Diff Wbc Office/Outpatient Visit, Est Routine Venipuncture Rbc Sed Rate, Automated Assay Of Serum Albumin Assay Of Creatinine Transferase (Ast) (Sgot) Alanine Amino (Alt) (Sgpt) CReactive Protein Complete Cbc WAuto Diff Wbc Office/Outpatient Visit, Est Routine Venipuncture Rbc Sed Rate, Automated Assay Of Serum Albumin Assay Of Creatinine Transferase (Ast) (Sgot) Alanine Amino (Alt) (Sgpt) CReactive Protein Complete Cbc WAuto Diff Wbc Office/Outpatient Visit, Est Routine Venipuncture Rbc Sed Rate, Nonautomated Assay Of Serum Albumin Assay Of Creatinine Transferase (Ast) (Sgot) Alanine Amino (Alt) (Sgpt) CReactive Protein Complete Cbc WAuto Diff Wbc Office/Outpatient Visit, Est Routine Venipuncture Rbc Sed Rate, Nonautomated Assay Of Serum Albumin Assay Of Creatinine Transferase (Ast) (Sgot) Alanine Amino (Alt) (Sgpt) CReactive Protein Complete Cbc WAuto Diff Wbc Office/Outpatient Visit, Est Routine Venipuncture Rbc Sed Rate, Nonautomated Assay Of Serum Albumin Assay Of Creatinine Transferase (Ast) (Sgot) Alanine Amino (Alt) (Sgpt) CReactive Protein Complete Cbc WAuto Diff Wbc Office/Outpatient Visit, Est Routine Venipuncture Rbc Sed Rate, Nonautomated Assay Of Serum Albumin Assay Of Creatinine Transferase (Ast) (Sgot) Alanine Amino (Alt) (Sgpt) CReactive Protein Complete Cbc WAuto Diff Wbc Office/Outpatient Visit, Est Routine Venipuncture Rbc Sed Rate, Nonautomated Assay Of Serum Albumin Assay Of Creatinine Transferase (Ast) (Sgot) Alanine Amino (Alt) (Sgpt) CReactive Protein Complete Cbc WAuto Diff Wbc Office/Outpatient Visit, Est Routine Venipuncture Rbc Sed Rate, Nonautomated Assay Of Serum Albumin Assay Of Creatinine Transferase (Ast) (Sgot) Alanine Amino (Alt) (Sgpt) CReactive Protein Complete Cbc WAuto Diff Wbc Office/Outpatient Visit, Est Routine Venipuncture Rbc Sed Rate, Nonautomated Assay Of Serum Albumin Assay Of Creatinine Transferase (Ast) (Sgot) Alanine Amino (Alt) (Sgpt) CReactive Protein Complete Cbc WAuto Diff Wbc Office/Outpatient Visit, Est Routine Venipuncture Rbc Sed Rate, Nonautomated Assay Of Serum Albumin Assay Of Creatinine Transferase (Ast) (Sgot) Alanine Amino (Alt) (Sgpt) CReactive Protein Complete Cbc WAuto Diff Wbc Office/Outpatient Visit, Est Routine Venipuncture Rbc Sed Rate, Nonautomated Assay Of Serum Albumin Assay Of Creatinine Transferase (Ast) (Sgot) Alanine Amino (Alt) (Sgpt) CReactive Protein Complete Cbc WAuto Diff Wbc Office/Outpatient Visit, Est Routine Venipuncture Rbc Sed Rate, Nonautomated CReactive Protein Complete Cbc WAuto Diff Wbc Office/Outpatient Visit, Est Routine Venipuncture Assay Of Serum Albumin Assay Of Creatinine Transferase (Ast) (Sgot) Alanine Amino (Alt) (Sgpt) CReactive Protein Complete Cbc WAuto Diff Wbc Phone E/M By Phys 11-20 Min Office/Outpatient Visit, Est Routine Venipuncture Assay Of Serum Albumin Assay Of Creatinine Transferase (Ast) (Sgot) Alanine Amino (Alt) (Sgpt) CReactive Protein Complete Cbc WAuto Diff Wbc Office/Outpatient Visit, Est Routine Venipuncture Specimen Handling Assay Of Serum Albumin Assay Of Creatinine Transferase (Ast) (Sgot) Alanine Amino (Alt) (Sgpt) CReactive Protein Office/Outpatient Visit, Est Routine Venipuncture Assay Of Serum Albumin Assay Of Creatinine Transferase (Ast) (Sgot) Alanine Amino (Alt) (Sgpt) CReactive Protein Complete Cbc WAuto Diff Wbc Office/Outpatient Visit, Est Routine Venipuncture Assay Of Serum Albumin Assay Of Creatinine Transferase (Ast) (Sgot) Alanine Amino (Alt) (Sgpt) CReactive Protein Complete Cbc WAuto Diff Wbc Office/Outpatient Visit, Est Routine Venipuncture Specimen Handling Assay Of Serum Albumin Assay Of Creatinine Transferase (Ast) (Sgot) Alanine Amino (Alt) (Sgpt) CReactive Protein Office/Outpatient Visit, Est Routine Venipuncture CReactive Protein Assay Of Serum Albumin Assay Of Creatinine Transferase (Ast) (Sgot) Alanine Amino (Alt) (Sgpt) Complete Cbc WAuto Diff Wbc Office/Outpatient Visit, Est Office/Outpatient Visit, New Routine Venipuncture Specimen Handling Rbc Sed Rate, Nonautomated Assay Of Serum Albumin Assay Of Creatinine Transferase (Ast) (Sgot) Alanine Amino (Alt) (Sgpt) Assay, Glucose, Blood Quant CReactive Protein Dna Antibody, Single Strand Dna Antibody, Lummi Nuclear Antigen Antibodies CCP Antibody Lyme Disease Antibody Rheumatoid Factor, IGM Rheumatoid Factor, IGG, IGA Vitamin D 25 Hydroxy Complete Cbc WAuto Diff Wbc Results Test Name Date and Time Measure Units Reference Range Abnormal Flag Status Comments Panel Description: CBC 5 part diff Final Neutrophils# 14:53:00 8.34 K/uL 2.00-7.50 H Final Neutrophil % 14:53:00 82.30 % 0.00-99.00 Final Eosinophil # 14:53:00 0.16 K/uL 0.00-0.50 Final Eosinophil % 14:53:00 1.60 % 0.00-7.00 Final Basophil # 14:53:00 0.05 K/uL 0.00-0.20 Final Basophil % 14:53:00 0.50 % 0.00-99.00 Final WBC 14:53:00 10.1 K/uL 4.0-10.0 H Final RBC 14:53:00 3.86 M/uL 3.80-5.80 Final Hemoglobin 14:53:00 11.4 g/dL 11.5-16.0 L Final Hematocrit 14:53:00 34.9 % 37.0-47.0 L Final MCV 14:53:00 90 fL 80-100 Final MCH 14:53:00 29.6 pg 27.0-32.0 Final MCHC 14:53:00 32.7 g/dL 32.0-36.0 Final RDW 14:53:00 13.5 % 11.0-16.0 Final Platelet Count 14:53:00 383 K/uL 150-500 Final MPV 14:53:00 7.4 fL 6.0-11.0 Final Lymphocyte% 14:53:00 11.70 % 25.00-50.00 L Final Lymphocyte # 14:53:00 1.2 K/uL 1.0-4.0 Final Monocytes # 14:53:00 0.40 K/uL 0.20-1.00 Final Monocytes % 14:53:00 3.90 % 2.00-10.00 Final Panel Description: ESR Final ESR 15:23:00 44 mm/hr 0-25 H Final Panel Description: DMARD Final AST 15:24:00 41 U/L 10-35 H Final ALT 15:24:00 23 IU/L 6-32 Final Creatinine 15:24:00 1.000 mg/dL 0.500-1.050 Final ALB 15:24:00 3.8 g/dL 3.6-5.1 Final GFR 15:24:00 55.6 mL/min/1. 73 m2 Final Reported eGFR is based the CKD-EPI 2020 equation that does not use a race coefficient. Panel Description: CRP Final CRP 15:24:00 0.69 MG/DL 0.00-0.80 Final Advance Directives Directive Yes / No Effective Date File Name No Information Encounters Encounter Description Practice Location Reason(s) For Visit Diagnoses Date Provider Providers Copied on Encounter Office/Outpa tient Visit, Est [facility] , [address], [place], [address], [place] tel:[phone] [facility] , Follow Up of Seropositive rheumatoid arthritis (chief complaint)Os teoporosis (chief complaint)Os teoarthritis (chief complaint) Rheumatoid arthritis with rheumatoid factor of multiple sites without organ or systems involvementA ge-related osteoporosis without current pathological fractureLong term (current) use of systemic steroidsOthe r longwall foreman (current) drug therapyCellu litis of left lower limb 4 Mayra Olguin. [facility] [address], [place], [address], [place]. tel:[phone] Referring Provider: Sharif Phipps, [facility] [address], [place], [address]. tel:[phone] Office/Outpa tient Visit, Est [facility] , [address], [place], [address], [place] tel:[phone] [facility] , Follow Up of Seropositive rheumatoid arthritis (chief complaint)Os teoporosis (chief complaint)Os teoarthritis (chief complaint) Rheumatoid arthritis with rheumatoid factor of multiple sites without organ or systems involvementA ge-related osteoporosis without current pathological fractureLong term (current) use of systemic steroidsOthe r care home (current) drug therapyCellu litis of left lower limb 4 Mayra Olguin. [facility] [address], [place], [address], [place]. tel:[phone] Referring Provider: Sharif Phipps, [facility] [address], [place], [address]. tel:[phone] [facility] , [address], [place], [address], [place] tel:[phone] [facility] , No Information 4 Mayra Olguin. [facility] [address], [place], [address], [place]. tel:[phone] Office/Outpa tient Visit, Est [facility] , [address], [place], [address], [place] tel:[phone] [facility] , Follow Up of Seropositive rheumatoid arthritis (chief complaint)Os teoporosis (chief complaint)Os teoarthritis (chief complaint) Rheumatoid arthritis with rheumatoid factor of multiple sites without organ or systems involvementA ge-related osteoporosis without current pathological fractureLong term (current) use of systemic steroidsOthe r longwall foreman (current) drug therapyCellu litis of left lower limb 4 Mayra Olguin. [facility] [address], [place], [address], [place]. tel:[phone] Referring Provider: Sharif Phipps, [facility] [address], [place], [address]. [phone] Office/Outpa tient Visit, Est [facility] , [address], [place], [address], [place] tel:[phone] [facility] , Follow Up of Seropositive rheumatoid arthritis (chief complaint)Os teoporosis (chief complaint)Os teoarthritis (chief complaint) Rheumatoid arthritis with rheumatoid factor of multiple sites without organ or systems involvementA ge-related osteoporosis without current pathological fractureLong term (current) use of systemic steroidsOthe r longwall foreman (current) drug therapyCellu litis of left lower limb 4 Mayra Olguin. [facility] [address], [place], [address], [place]. tel:[phone] Referring Provider: Sharif Phipps, [facility] [address], [place], [address]. tel:[phone] Office/Outpa tient Visit, Est [facility] , [address], [place], [address], [place] tel:[phone] [facility] , Follow Up of Seropositive rheumatoid arthritis (chief complaint)Os teoporosis (chief complaint)Os teoarthritis (chief complaint) Rheumatoid arthritis with rheumatoid factor of multiple sites without organ or systems involvementA ge-related osteoporosis without current pathological fractureLong term (current) use of systemic steroidsOthe r longwall foreman (current) drug therapyCellu litis of left lower limb 3 Mayra Olguin. [facility] [address], [place], [address], [place]. tel:[phone] Referring Provider: Sharif Phipps, [facility] [address], [place], [address]. tel:[phone] Office/Outpa tient Visit, Est [facility] , [address], [place], [address], [place] tel:[phone] [facility] , Follow Up of Seropositive rheumatoid arthritis (chief complaint)Os teoporosis (chief complaint)Os teoarthritis (chief complaint) Rheumatoid arthritis with rheumatoid factor of multiple sites without organ or systems involvementO ther low back painAge-rela sheryl osteoporosis without current pathological fractureLong term (current) use of systemic steroidsOthe r longwall foreman (current) drug therapy 3 aMyra Olguin. [facility] [address], [place], [address], [place]. tel:[phone] Referring Provider: Sharif Phipps, [facility] [address], [place], [address]. tel:[phone] Office/Outpa tient Visit, Est [facility] , [address], [place], [address], [place] tel:[phone] [facility] , Follow Up of Seropositive rheumatoid arthritis (chief complaint)Os teoporosis (chief complaint)Os teoarthritis (chief complaint) Rheumatoid arthritis with rheumatoid factor of multiple sites without organ or systems involvementO ther low back painAge-rela sheryl osteoporosis without current pathological fractureLong term (current) use of systemic steroidsOthe r longwall foreman (current) drug therapy 3 Mayra Olguin. [facility] [address], [place], [address], [place]. tel:[phone] Referring Provider: Sharif Phipps, [facility] [address], [place], [address]. tel:[phone] Office/Outpa tient Visit, Est [facility] , [address], [place], [address], [place] tel:[phone] [facility] , Follow Up of Seropositive rheumatoid arthritis (chief complaint)Os teoporosis (chief complaint)Os teoarthritis (chief complaint) Rheumatoid arthritis with rheumatoid factor of multiple sites without organ or systems involvementO ther low back painAge-rela sheryl osteoporosis without current pathological fractureLong term (current) use of systemic steroidsOthe r longwall foreman (current) drug therapy 3 Mayra Olguin. [facility] [address], [place], [address], [place]. tel:[phone] Referring Provider: Sharif Phipps, [facility] [address], [place], [address]. tel:[phone] Office/Outpa tient Visit, Est [facility] , [address], [place], [address], [place] tel:[phone] [facility] , Follow Up of Seropositive rheumatoid arthritis (chief complaint)Os teoporosis (chief complaint)Os teoarthritis (chief complaint) Rheumatoid arthritis with rheumatoid factor of multiple sites without organ or systems involvementO ther low back painAge-rela sheryl osteoporosis without current pathological fractureLong term (current) use of systemic steroidsOthe r care home (current) drug therapy 2 Mayra Olguin. [facility] [address], [place], [address], [place]. tel:[phone] Referring Provider: Sharif Phipps, [facility] [address], [place], [address]. tel:[phone] Office/Outpa tient Visit, Est [facility] , [address], [place], [address], [place] tel:[phone] [facility] , Follow Up of Seropositive rheumatoid arthritis (chief complaint)Os teoporosis (chief complaint)Os teoarthritis (chief complaint) Rheumatoid arthritis with rheumatoid factor of multiple sites without organ or systems involvementO ther low back painAge-rela sheryl osteoporosis without current pathological fractureLong term (current) use of systemic steroidsOthe r care home (current) drug therapy 2 Mayra Olguin. [facility] [address], [place], [address], [place]. tel:[phone] Referring Provider: Sharif Phipps, [facility] [address], [place], [address]. tel:[phone] Office/Outpa tient Visit, Est [facility] , [address], [place], [address], [place] tel:[phone] [facility] , Follow Up of Seropositive rheumatoid arthritis (chief complaint)Os teoporosis (chief complaint)Os teoarthritis (chief complaint) Rheumatoid arthritis with rheumatoid factor of multiple sites without organ or systems involvementA ge-related osteoporosis without current pathological fractureLong term (current) use of systemic steroidsOthe r care home (current) drug therapyOther low back pain Mar-0 3-202 2 Mayra Mcdonald [facility] [address], [place], [address], [place]. tel:[phone] Referring Provider: Sharif Phipps, [facility] [address], [place], [address]. tel:[phone] Office/Outpa tient Visit, Est [facility] , [address], [place], [address], [place] tel:[phone] [facility] , Follow Up of Seropositive rheumatoid arthritis (chief complaint)Os teoporosis (chief complaint)Os teoarthritis (chief complaint) Rheumatoid arthritis with rheumatoid factor of multiple sites without organ or systems involvementH allucination Eric-related osteoporosis without current pathological fractureOthe r longwall foreman (current) drug therapyLong term (current) use of systemic steroids 1 Mayra Mcdonald [facility] [address], [place], [address], [place]. tel:[phone] Referring Provider: Sharif Phipps, [facility] [address], [place], [address]. tel:[phone] Office/Outpa tient Visit, Est [facility] , [address], [place], [address], [place] tel:[phone] [facility] , Follow Up of Seropositive rheumatoid arthritis (chief complaint)Os teoporosis (chief complaint)Os teoarthritis (chief complaint) Rheumatoid arthritis with rheumatoid factor of multiple sites without organ or systems involvementH allucination Eric-related osteoporosis without current pathological fractureOthe r care home (current) drug therapyLong term (current) use of systemic steroids 1 Mayra Mcdonald [facility] [address], [place], [address], [place]. tel:[phone] Referring Provider: Sharif Phipps, [facility] [address], [place], [address]. tel:[phone] Office/Outpa tient Visit, Est [facility] , [address], [place], [address], [place] tel:[phone] [facility] , Follow Up of Seropositive rheumatoid arthritis (chief complaint)Os teoporosis (chief complaint) Rheumatoid arthritis with rheumatoid factor of multiple sites without organ or systems involvementO ther care home (current) drug therapyLong term (current) use of systemic steroidsAge- related osteoporosis without current pathological fracture 1 Mayra Olguin. [facility] [address], [place], [address], [place]. tel:[phone] Referring Provider: Sharif Phipps, [facility] [address], [place], [address]. tel:[phone] Office/Outpa tient Visit, Est [facility] , [address], [place], [address], [place] tel:[phone] [facility] , Follow Up of Seropositive rheumatoid arthritis (chief complaint) Rheumatoid arthritis with rheumatoid factor of multiple sites without organ or systems involvementA bnormal weight lossAge-rela sheryl osteoporosis without current pathological fractureOthe r longwall foreman (current) drug therapyLong term (current) use of systemic steroids 1 Mayra Olguin. [facility] [address], [place], [address], [place]. tel:[phone] Referring Provider: Sharif Phipps, [facility] [address], [place], [address]. tel:[phone] Office/Outpa tient Visit, Est [facility] , [address], [place], [address], [place] tel:[phone] [facility] , Follow Up of Seropositive rheumatoid arthritis (chief complaint) Rheumatoid arthritis with rheumatoid factor of multiple sites without organ or systems involvementO ther longwall foreman (current) drug therapyLong term (current) use of systemic steroids 0 Mayra Olguin. [facility] [address], [place], [address], [place]. tel:[phone] Referring Provider: Sharif Phipps, [facility] [address], [place], [address]. tel:[phone] Office/Outpa tient Visit, Est [facility] , [address], [place], [address], [place] tel:[phone] [facility] , Follow Up of seropositive rheumatoid arthritis (chief complaint) Rheu arthritis w rheu factor mult site w/o org/sys involvAge-re lated osteoporosis w/o current pathological fractureOthe r longwall foreman (current) drug therapyLong term (current) use of systemic steroids 0 Mayra Mcdonald [facility] [address], [place], [address], [place]. tel:[phone] Referring Provider: Sharif Phipps, [facility] [address], [place], [address]. tel:[phone] Office/Outpa tient Visit, Est [facility] , [address], [place], [address], [place] tel:[phone] [facility] , Follow Up of seropositive rheumatoid arthritis (chief complaint) Rheu arthritis w rheu factor mult site w/o org/sys involvPrimar y generalized (osteo)arthr itisAge-rela sheryl osteoporosis w/o current pathological fractureOthe r longwall foreman (current) drug therapyLong term (current) use of systemic steroids 0 Mayra Mcdonald [facility] [address], [place], [address], [place]. tel:[phone] Referring Provider: Sharif Phipps, [facility] [address], [place], [address]. tel:[phone] Phone E/M By Phys 11-20 Min [facility] , [address], [place], [address], [place] tel:[phone] Telehealth Follow Up of seropositive rheumatoid arthritis (chief complaint)os teoarthritis (chief complaint) [place]u [place] [facility] [place]/sys involvPrimar y generalized (osteo)arthr itisOther longwall foreman (current) drug therapy 0 Mayra Mcdonald [facility] [address], [place], [address], [place]. tel:[phone] Referring Provider: Sharif Phipps, [facility] [address], [place], [address]. tel:[phone] Office/Outpa tient Visit, Est [facility] , [address], [place], [address], [place] tel:[phone] [facility] , Follow Up of seropositive rheumatoid arthritis (chief complaint) Rheu arthritis w rheu factor mult site w/o org/sys involvCarpal tunnel syndrome, right upper limbAbnormal weight lossOther longwall foreman (current) drug therapyLong term (current) use of systemic steroids 0 Nunez Sharif. [facility] [address], [place], [address], [place]. tel:[phone] Referring Provider: Sharif Phipps, [facility] [address], [place], [address]. tel:[phone] Office/Outpa tient Visit, Est [facility] , [address], [place], [address], [place] tel:[phone] [facility] , Follow Up of seropositive rheumatoid arthritis (chief complaint) Rheu arthritis w rheu factor mult site w/o org/sys involvCarpal tunnel syndrome of right armPain in right shoulderOthe r care home (current) drug therapyLong term (current) use of systemic steroids Mayra Olguin. [facility] [address], [place], [address], [place]. tel:[phone] Referring Provider: Sharif Phipps, [facility] [address], [place], [address]. tel:[phone] Office/Outpa tient Visit, Est [facility] , [address], [place], [address], [place] tel:[phone] [facility] , Follow Up of seropositive rheumatoid arthritis (chief complaint) Rheu arthritis w rheu factor mult site w/o org/sys involvOther longwall foreman (current) drug therapyLong term (current) use of systemic steroids 9 Mayra Olguin. [facility] [address], [place], [address], [place]. tel:[phone] Referring Provider: Sharif Phipps, [facility] [address], [place], [address]. tel:[phone] Office/Outpa tient Visit, Est [facility] , [address], [place], [address], [place] tel:[phone] [facility] , Follow Up of seropositive rheumatoid arthritis (chief complaint) Rheu arthritis w rheu factor [facility] [place]/o org/sys involvOther longwall foreman (current) drug therapyLong term (current) use of systemic steroids Mayra Olguin. [facility] [address], [place], [address], [place]. tel:[phone] Referring Provider: Sharif Phipps, [facility] [address], [place], [address]. tel:[phone] Office/Outpa tient Visit, Est [facility] , [address], [place], [address], [place] tel:[phone] [facility] , Follow Up of seropositive rheumatoid arthritis (chief complaint) Rheu arthritis w rheu factor [facility] [place] w/o org/sys involvDry eye syndrome of bilateral lacrimal glandsXerost omiaNasal congestionPr uritusOsteop orosisOther longwall foreman (current) drug therapyLong term (current) use of systemic steroids Mayra Olguin. [facility] [address], [place], [address], [place]. tel:[phone] Referring Provider: Sharif Phipps, [facility] [address], [place], [address]. tel:[phone] Office/Outpa tient Visit, Est [facility] , [address], [place], [address], [place] tel:[phone] [facility] , Follow Up of seropositive rheumatoid arthritis (chief complaint) Rheu arthritis w rheu factor mult site w/o org/sys involvConjun ctivitisAge- related osteoporosis w/o current pathological fractureOthe r care home (current) drug therapyLong term (current) use of systemic steroids 9 Mayra Olguin. [facility] [address], [place], [address], [place]. [phone] Referring Provider: Sharif Phipps, [facility] [address], [place], [address]. tel:[phone] Office/Outpa tient Visit, Est [facility] , [address], [place], [address], [place] tel:[phone] [facility] , Follow Up of seropositive rheumatoid arthritis (chief complaint) Seropositive RA of multiple sites w/o organ involvementP ain in left kneeAge-rela sheryl osteoporosis w/o current pathological fractureOthe r care home (current) drug therapy Mayra Ogluin. [facility] [address], [place], [address], [place]. tel:[phone] Referring Provider: Sharif Phipps, [facility] [address], [place], [address]. [phone] Office/Outpa tient Visit, New [facility] , [address], [place], [address], [place] [phone] [facility] , Inflammatory Polyarthropa thy (chief complaint) Inflammatory polyarthropa thyAge-relat ed osteoporosis w/o current pathological fracturePrim gutierrez generalized osteoarthrit isType 2 diabetes mellitus without complication sLong term use of systemic steroids 8 Nunez Sharif. [facility] [address], [place], [address], [place]. tel:[phone] Referring Provider: Sharif Phipps, [facility] [address], [place], [address]. tel:[phone] [facility] , [address], [place], [address], [place] tel:[phone] [facility] , No Information 8 Mayra Olguin. [facility] [address], [place], [address], [place]. tel:[phone] Family History Family Member Type Diagnosis Age At Onset Son Problem (finding) stroke Mother Problem (finding) Arthritis Immunizations Vaccine Date Status Comments COVID-19 Moderna administered Source: Oth er Provider COVID-19 Moderna administered Source: Oth er Provider COVID-19 Moderna administered Source: Oth er Provider Payers Payer name Insurance type Covered republican ID Authoriza tion(s) [facility] Medicare Advantage/[employer] [id number] Social History Type Description Quantity Date Captured Comments Alcohol Use Details No Caffeine Use Details coffee 2 cups per day Tobacco Use Status Current non-smoker Smoking Status Never smoker Non-Smoking Tobacco Use Details : No Details Available : No Details Available Sex Female Vital Signs Date / Time: Height Weight BMI Pulse Rate Blood Pressure Temperature Respiratory Rate Body Surface Area Head Circumference Head Circ. Percentile Wt./Maxx. Percentile BMI percentile Pulse Ox Inhaled Ox 1:46 PM 61.00 in 63.957 kg (141.00 lbs) 26.6 4 kg/m eter (2) 168/90 mm[Hg] 97.00 F Chief Complaint And Reason For Visit From encounter dated '02/29/2024 13:45'. Follow Up of Seropositive rheumatoid arthritis (chief complaint) Osteoporosis (chief complaint) Osteoarthritis (chief complaint) Reason For Referral Reason For Referral No Information Plan Of Treatment Date Type Action Status Appointment Vanessa Andino BOOKED History Of Present Illness Encounter Date Complaint History Of Prese nt Illness Follow Up of Seropos itive rheumatoid arthritis Osteoporosis Osteoarthritis Follow Up of Seropos itive rheumatoid arthritis Osteoporosis Osteoarthritis Follow Up of Seropos itive rheumatoid arthritis Osteoporosis Osteoarthritis Follow Up of Seropos itive rheumatoid arthritis Osteoporosis Osteoarthritis Follow Up of Seropos itive rheumatoid arthritis Osteoporosis Osteoarthritis Follow Up of Seropos itive rheumatoid arthritis Osteoporosis Osteoarthritis Follow Up of Seropos itive rheumatoid arthritis Osteoporosis Osteoarthritis Follow Up of Seropos itive rheumatoid arthritis Osteoporosis Osteoarthritis Follow Up of Seropos itive rheumatoid arthritis Osteoporosis Osteoarthritis Follow Up of Seropos itive rheumatoid arthritis Osteoporosis Osteoarthritis Follow Up of Seropos itive rheumatoid arthritis Osteoporosis Osteoarthritis Follow Up of Seropos itive rheumatoid arthritis Osteoporosis Osteoarthritis Follow Up of Seropos itive rheumatoid arthritis Osteoporosis Osteoarthritis Follow Up of Seropos itive rheumatoid arthritis Osteoporosis Follow Up of Seropos itive rheumatoid arthritis Follow Up of Seropos itive rheumatoid arthritis Follow Up of seropos itive rheumatoid arthritis Follow Up of seropos itive rheumatoid arthritis Follow Up of seropos itive rheumatoid arthritis osteoarthritis Follow Up of seropos itive rheumatoid arthritis Follow Up of seropos itive rheumatoid arthritis Follow Up of seropos itive rheumatoid arthritis Follow Up of seropos itive rheumatoid arthritis Follow Up of seropos itive rheumatoid arthritis Follow Up of seropos itive rheumatoid arthritis Follow Up of seropos itive rheumatoid arthritis Inflammatory Polyarthropathy Functional Status Date Functional Assessmen t Pain Score 0.5/10 Instructions Date Instruction Additional Infor ty Although she feels w kathryn from an arthritis standpoint today, she has active synovitis on exam and her measures of inflammation have not returned to normal range despite still being on low-dose prednisone. I recommended increasing methotrexate from 5 pills weekly to 6 pills weekly with the hopes that this may make it easier eventually to taper her completely off of the prednisone. For now, she will stay on the same dose of the prednisone. Related to Rheumatoid arthritis with rheumatoid factor of multiple sites without organ or systems involvement This is managed at [facility]. For this and multiple other reasons I still would like to taper her off of the prednisone if possible although that has been difficult. Related to Age-related osteoporosis without current pathological fracture See discussion above regarding the prednisone. Related to custodial (current) use of systemic steroids She will have routin e laboratories today for monitoring medications and disease. I am not receiving notes from her bundle sorter but she reports that she is having regular follow-up exams to monitor the Plaquenil.. Related to Other longwall foreman (current) drug therapy He initially had a c ellulitis of the left lower leg that has been treated but she has a residual ulcer that required a skin graft. Apparently she is making progress with this since the skin graft but still requires regular follow-up at the wound clinic. Related to Cellulitis of left lower limb She will have routin e laboratories today for monitoring medications and disease. I believe she had a Plaquenil eye exam in September although I do not have a report of that. Related to Other care home (current) drug therapy This is an ongoing i ssue but the patient reports improvement since having a skin graft there. The current dose of prednisone likely has very little role in her slow healing process. I feel the same about her current dose of methotrexate. Related to Cellulitis of left lower limb As long as she remai ns on prednisone and doses of 2 mg daily or more, she does very well with her rheumatoid arthritis. She has had great difficulty tapering below that dose regardless of the dose of methotrexate. I did not recommend any further change in medications at this time s he will stay on prednisone 2 mg daily and methotrexate 5 tablets weekly along with the hydroxychloroquine at her current dose. Related to Rheumatoid arthritis with rheumatoid factor of multiple sites without organ or systems involvement This is managed at her primary c linic. Related to Age-related osteoporosis without current pathological fracture See discussion above regarding the prednisone. Related to custodial (current) use of systemic steroids Although she had a s hort-lived flare involving fingers and wrists, she is doing better again now on her normal dose of prednisone. I did not recommend any change in that or the methotrexate or hydroxychloroquine. Related to Rheumatoid arthritis with rheumatoid factor of multiple sites without organ or systems involvement At this point, I do not feel like it is urgent to taper this very low-dose of prednisone despite her history of osteoporosis. She simply does not do well with lower dose. Related to long term care administrator (current) use of systemic steroids She will have routin e laboratories today for monitoring medications and disease. She has a Plaquenil eye exam scheduled next month. 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 She feels like it is healing again. This is followed at the wound care clinic regularly. Related to Cellulitis of left lower limb This is managed at her primary c linic. Related to Age-related osteoporosis without current pathological fracture At this point, I do not feel like it is urgent to taper this very low-dose of prednisone despite her history of osteoporosis. She simply does not do well with lower dose. Related to long term care administrator (current) use of systemic steroids She will have routin e laboratories today for monitoring medications and disease. Related to Other longwall foreman (current) drug therapy She still has an ulc er there but the cellulitis has been treated effectively. The ulcer is decreasing in size with careful follow-up with the wound care clinic. Related to Cellulitis of left lower limb Her rheumatoid arthr itis is very well controlled on her current regimen. I did not recommend any change in the methotrexate, Plaquenil, or prednisone. Related to Rheumatoid arthritis with rheumatoid factor of multiple sites without organ or systems involvement This is followed at her primary clinic. Related to Age-related osteoporosis without current pathological fracture She will have routin e laboratories today for monitoring medications and disease. Related to Other care home (current) drug therapy Based on her follow- up bone densitometry last month, it appears that the alendronate is at least preventing further bone loss if not producing some increase in bone density. She reports that her primary physician plans to repeat the DEXA scan, this time on the same machine, in 1 year. Related to Age-related osteoporosis without current pathological fracture At this point, I do not feel like it is urgent to taper this very low-dose of prednisone despite her history of osteoporosis. She simply does not do well with any lower dose. Related to custodial (current) use of systemic steroids Her rheumatoid arthr itis is very well controlled still on her current regimen. I did not recommend any change in the methotrexate, Plaquenil, or prednisone. Related to Rheumatoid arthritis with rheumatoid factor of multiple sites without organ or systems involvement She had a recent iovry lulitis involving the left lower leg. The actual ulcerated area is healed over with scab but is flume tender in the dry area. I recommended applying Vaseline to that area in the morning with a loose bandage over the lesion during the day. She should also apply Vaseline without the bandage to that same area at night before she goes to bed. She is aware that this could become infected again and was encouraged to call either here or her primary clinic if there is any suggestion of that.. Related to Cellulitis of left lower limb Currently, she is do ing as well as I think she can do with her rheumatoid arthritis. She is on low-dose prednisone, 1 mg daily. Its not urgent to get her off of that completely despite her history of osteoporosis with fracture. I did not recommend any change in the methotrexate or prednisone. I did suggest decreasing hydroxychloroquine from 200 mg twice daily (a dose that is a little bit high for her weight) to 200 mg twice daily on even days and once daily on odd days. I went over that recommendation several times with her. Related to Rheumatoid arthritis with rheumatoid factor of multiple sites without organ or systems involvement See discussion above regarding very slow taper of her prednisone dose as tolerated. Related to long term care administrator (current) use of systemic steroids This is still somewh at limiting for her but overall stable. Related to Other low back pain She will have routin e laboratories today for monitoring medications and disease. Related to Other longwall foreman (current) drug therapy Based on her follow- up bone densitometry last month, it appears that the alendronate is at least preventing further bone loss if not producing some increase in bone density. She reports that her primary physician plans to repeat the DEXA scan, this time on the same machine, in 1 year. Related to Age-related osteoporosis without current pathological fracture She may be a bit mor e stiff and achy with the slight decrease in prednisone. I told her that she did not have to decrease the prednisone any further at this point although, if she does start to feel somewhat better with the warmer weather, she could proceed with a trial of discontinuing it altogether. She will stay on her same dose of methotrexate and Plaquenil. Related to Rheumatoid arthritis with rheumatoid factor of multiple sites without organ or systems involvement Unfortunately, she h as had a traumatic fracture of the left humerus and what apparently was a less severe fracture of the left wrist. The left wrist is mildly tender on exam today. T her last bone density test was on 10/01/2020. She will be due for follow-up bone densitometry in September of this year. Related to Age-related osteoporosis without current pathological fracture See discussion above regarding very slow taper of her prednisone dose as tolerated. Related to long term care administrator (current) use of systemic steroids This is not a major issue for her currently. Related to Other low back pain She will have routin e laboratories today for monitoring medications and disease. Related to Other longwall foreman (current) drug therapy This is not a major issue for her currently. Related to Other low back pain Unfortunately, she h as had a traumatic fracture of the left humerus and what apparently was a less severe fracture of the left wrist. The left wrist is mildly tender on exam today. The left shoulder has shown some improvement compared to the last time I saw her I strongly encouraged her to continue exercises at home for this for her lifetime. Related to Age-related osteoporosis without current pathological fracture See discussion above regarding very slow taper of her prednisone dose. Related to long term care administrator (current) use of systemic steroids Her rheumatoid arthr itis is stable on her current regimen. I do not think we need to push tapering the prednisone but I will consider that again the next time I see her. My goal is still to get her off of that. She also will stay on her same doses of methotrexate and hydroxychloroquine. Related to Rheumatoid arthritis with rheumatoid factor of multiple sites without organ or systems involvement She will have routin e laboratories today for monitoring medications and disease. Related to Other care home (current) drug therapy Unfortunately, she h as had a traumatic fracture of the left humerus and what apparently was a less severe fracture of the left wrist. The left wrist is essentially normal on exam today. The left shoulder has a long way to go. She is in physical therapy for that. I think it is unlikely that treatment of her osteoporosis will be changed and I therefore think it is okay to wait until next summer to repeat her bone density test. Related to Age-related osteoporosis without current pathological fracture See discussion above regarding very slow taper of her prednisone dose. Related to long term care administrator (current) use of systemic steroids She is still doing v kimberlee well with her rheumatoid arthritis on her current regimen. She remains on a very low-dose of prednisone. I do not think it is absolutely necessary to taper this at this time although obviously the goal is to have her completely off of prednisone ultimately. She also will stay on her same doses of methotrexate and hydroxychloroquine. Related to Rheumatoid arthritis with rheumatoid factor of multiple sites without organ or systems involvement She will have routin e laboratories today for monitoring medications and disease. Related to Other longwall foreman (current) drug therapy This is not a major issue for her currently. Related to Other low back pain See discussion above regarding very slow taper of her prednisone dose. Related to custodial (current) use of systemic steroids Her last bone densit y test was on 10/11/2020. At that time, her Fosamax dose was increased to 70 mg weekly. Related to Age-related osteoporosis without current pathological fracture She is doing well wi th her rheumatoid arthritis on her current regimen. We agreed that she would decrease her prednisone dose further to 1 mg daily and stay on that dose until I see her next in 3 months. Related to Rheumatoid arthritis with rheumatoid factor of multiple sites without organ or systems involvement She has made some pr ogress with her low back pain since I last saw her. I encouraged her to continue the exercises that she has learned in physical therapy. Related to Other low back pain She will have routin e laboratories today for monitoring medications and disease. Related to Other care home (current) drug therapy See discussion above . Treatment of this back pain will depend on results of the x-ray. I will call her once I see that report. Related to Other low back pain Her last bone densit y test was on 10/11/2020. At that time, her Fosamax dose was increased to 70 mg weekly. The point tenderness in her low back today makes me wonder about an insufficiency fracture in that area. I am going to check a plain x-ray of the low back. Related to Age-related osteoporosis without current pathological fracture She is currently doi ng well with her rheumatoid arthritis but did flare when we had her down on a lower dose of prednisone. I recommended decreasing her prednisone dose to 2 mg on even days and 1 mg on odd days and just staying at that dose until I see her next. She will stay on her same doses of methotrexate and hydroxychloroquine. Related to Rheumatoid arthritis with rheumatoid factor of multiple sites without organ or systems involvement She will have routin e laboratories today for monitoring medications and disease. Related to Other care home (current) drug therapy It is very unlikely that the hallucinations are related to either methotrexate or Plaquenil. I also think it would be very unusual for her to have hallucinations on this lower dose of prednisone. I recommended follow-up with her primary physician regarding this issue. Related to Hallucinations Her last bone densit y test was in September 2018. She had a follow-up bone density test in September through her primary clinic. She has increased her Fosamax dose to 70 mg weekly. Related to Age-related osteoporosis without current pathological fracture She will have routin e laboratories today for monitoring medications and disease. Related to Other care home (current) drug therapy See discussion above regarding the prednisone. Related to long term care administrator (current) use of systemic steroids She has done well wi th the prednisone taper from 2 mg to 1 mg daily. I recommended decreasing that further to 1 mg every other day for 1 month and then going off of it completely. She will stay on her same doses of methotrexate and Plaquenil. Related to Rheumatoid arthritis with rheumatoid factor of multiple sites without organ or systems involvement See discussion above regarding the prednisone. Related to long term care administrator (current) use of systemic steroids She will have routin e laboratories today for monitoring medications and disease. Her last Plaquenil eye exam was on approximately 06/15/2020. I did encourage her to proceed with the COVID-19 vaccine booster (Moderna) when she can. She will need to hold methotrexate for 1 week after the booster vaccine. Related to Other care home (current) drug therapy See discussion above . If decreasing the dose of prednisone does not help her with this problem, I recommended follow-up with her primary physician. Related to Hallucinations Her last bone densit y test was in September 2018. She had a follow-up bone density test in September through her primary clinic. She has increased her Fosamax dose to 70 mg daily. Related to Age-related osteoporosis without current pathological fracture She is doing better with her rheumatoid arthritis today than she was the last time I saw her. She also feels that she is having side effects of the slightly increased dose of prednisone. I recommended decreasing that back to 1 mg daily. She will stay on her same doses of methotrexate and Plaquenil. Related to Rheumatoid arthritis with rheumatoid factor of multiple sites without organ or systems involvement She will have routin e laboratories today for monitoring medications and disease. Related to Other care home (current) drug therapy Although she is stil l pain-free, she does have palpable synovitis in a few joints today. I actually recommended increasing her prednisone dose back from 1 mg daily to 2 mg daily. I considered increasing the methotrexate dose but she has had difficulty with weight loss on that medication at higher doses in the past. She is on maximum dose of Plaquenil for her size. Related to Rheumatoid arthritis with rheumatoid factor of multiple sites without organ or systems involvement She will be due for follow-up bone densitometry after her next appointment here. Related to Age-related osteoporosis without current pathological fracture She will have routin e laboratories today for monitoring medications and disease. Related to Other longwall foreman (current) drug therapy She has a history of osteoporosis. I will try to minimize her prednisone dose. I am not sure when her last DEXA scan was. Related to Age-related osteoporosis without current pathological fracture She is asymptomatic currently from her rheumatoid arthritis. I recommended no change in her methotrexate dose but decreasing her prednisone dose from 2 mg daily to 1 mg daily. She will stay also on her same dose of Plaquenil. Related to Rheumatoid arthritis with rheumatoid factor of multiple sites without organ or systems involvement The cause of her michael ght loss is not clear to me. I will keep an eye on this. I cannot completely rule out the possibility that methotrexate is playing a role in her decreased appetite. Related to Abnormal weight loss She will have routin e laboratories today for monitoring medications and disease. Related to Other care home (current) drug therapy Her rheumatoid arthr itis is not in remission off of the prednisone. I recommended increasing her methotrexate dose from 4 pills weekly to 5 pills weekly. While we are waiting for that to take effect over the next 1 to 2 months, I also recommended resuming prednisone at a dose of 2 mg daily. She will stay on her same dose of Plaquenil. Related to Rheumatoid arthritis with rheumatoid factor of multiple sites without organ or systems involvement See discussion above. Related to long term care administrator (current) use of systemic steroids As noted above, we w ill be tapering her prednisone again. Her last DEXA scan was in September 2018. This is managed primarily through her primary clinic. Related to Age-related osteoporosis w/o current pathological fracture Her rheumatoid arthr itis is well controlled still on her current regimen. She will stay on her same dose of methotrexate. I recommended a slow decrease the prednisone by the equivalent of one half milligram per month. A written schedule with alternating doses was provided to her. Related to Rheu arthritis w rheu factor mult site w/o Gamzee/Laser Views involv She will have routin e laboratories today for monitoring medications and disease. Related to Other care home (current) drug therapy She will have routin e laboratories today for monitoring medications and disease. Related to Other longwall foreman (current) drug therapy Her osteoporosis is managed through her primary clinic. Her last DEXA scan was in September 2018. Related to Age-related osteoporosis w/o current pathological fracture Her generalized oste oarthritis also seems reasonably well controlled right now. Again, I did not recommend any change in treatment for this. Related to Primary generalized (osteo)arthritis She is doing well wi th her rheumatoid arthritis on her current regimen. I would like to eventually taper her off of the prednisone but I did not recommend any change in the dose of that today. She also will stay on her same doses of methotrexate and Plaquenil. She still can use low doses of ibuprofen in the morning if that seems to help her. Related to Rheu arthritis w rheu factor mult site w/o Gamzee/Laser Views involv I encouraged her to have monitoring laboratories done either at her local clinic or here within the next month or so. I emphasized the importance of this since we have increased her methotrexate dose since I last saw her. Related to Other longwall foreman (current) drug therapy See discussion above. Related to Primary generalized (osteo)arthritis It is difficult for me to say, via phone consultation, how much of her recent increase in symptoms was related to rheumatoid arthritis versus osteoarthritis. Nevertheless, she is feeling better again now on her combination of low-dose prednisone, still low-dose although increased methotrexate, and full dose Plaquenil along with a very low dose of [id number] ibuprofen. I did not recommend any change in her current regimen for now. Hopefully I can see her in person in 3 months. Related to Rheu arthritis w rheu factor mult site w/o org/sys involv See discussion above regarding tapering the prednisone. Related to custodial (current) use of systemic steroids She will have routin e laboratories today for monitoring medications and disease. Related to Other care home (current) drug therapy She continues to los e weight. She weighed 170 pounds when I first saw her in December 2017. I will keep an eye and this but there are no other indicators to suggest a malignancy. This may simply be due to the fact that she has been able to taper her prednisone substantially since I first saw her. Related to Abnormal weight loss Her rheumatoid arthr itis has responded very nicely to the low dose of methotrexate. She has no active synovitis on exam today. I think she can continue to taper prednisone at this point. I'm going to have her alternate 2 milligrams and 1 milligram daily for one month, then take 1 milligram daily for one month, then 1 milligram every other day until I see her next in 3 months. Related to Rheu arthritis w rheu factor mult site w/o org/sys involv The carpal tunnel sy ndrome in her right hand resolved with the resolution of the swelling in that right wrist related to her rheumatoid arthritis. Related to Carpal tunnel syndrome, right upper limb See discussion above regarding the prednisone. Related to long term care administrator (current) use of systemic steroids She was concerned th at she had a pinched nerve but I think she simply has a combination of arthritis in multiple joints of the right upper extremity including the shoulder. Hopefully the above changes in treatment will help with the shoulder pain as well. That already is improving some. I did show her Codjun's exercises to do for the shoulder and recommended that she do these once or twice daily. Related to Pain in right shoulder She will have routin e laboratories today for monitoring medications and disease. Her last Plaquenil eye exam was in September 2018. Related to Other longwall foreman (current) drug therapy Although the prednis one taper has gone very smoothly until she got to 4 milligrams daily, her rheumatoid arthritis is flaring on this lower dose of prednisone. She is still very motivated to get off the prednisone but I did not recommend any change in that at this time. I would like to try her on a low dose of methotrexate again. We will start at 3 pills weekly. She will stay on her same doses of prednisone and Plaquenil. Related to Rheu arthritis w rheu factor mult site w/o org/Laser Views involv She has right carpal tunnel syndrome, likely related to the swelling in her right wrist. Hopefully more effective treatment of her rheumatoid arthritis will solve that issue. In the meantime, she will continue the splint that wrist at night. Related to Carpal tunnel syndrome of right arm She has been started on Fosamax since I last saw her. She is taking appropriate doses also of calcium and vitamin D. Related to long term care administrator (current) use of systemic steroids If anything, she is doing slightly better with her rheumatoid arthritis today compared to the last time I saw her. I would like to see results of her laboratories today before deciding whether to taper her prednisone dose a bit further. For now, she will stay on her same current regimen of prednisone and Plaquenil. Related to Rheu arthritis w rheu factor mult site w/o org/sys involv She will have routin e laboratories today for monitoring medications and disease. Related to Other longwall foreman (current) drug therapy She likely does have osteoporosis. She is scheduled for bone densitometry at the end of September. She plans to have results of that forwarded to me. Related to custodial (current) use of systemic steroids She has some synovit is in her hands again. This has developed since tapering her prednisone from 6 milligrams daily to 4 milligrams daily. I likely will need to add another disease modifying agent, likely a biologic agent, but I would like to see how she does over the next couple of months on Plaquenil and the same dose of prednisone before deciding for sure whether to proceed with additional treatment. For now, she will stay on her same dose of Plaquenil and same dose of prednisone. I'm going to have her try diclofenac gel for the hands. Related to Rheu arthritis w rheu factor mult site w/o org/sys involv She will have routin e laboratories today for monitoring medications and disease. Related to Other care home (current) drug therapy She likely has osteo porosis in the setting of use of significant doses of prednisone for approximately 4 years now. I recommended that she have bone densitometry done. She will like to have this done close to home. She will call her primary physician for recommendations for where to have that done. Related to Osteoporosis She will have routin e laboratories today for monitoring medications and disease. Related to Other longwall foreman (current) drug therapy See discussion above regarding the prednisone. Related to custodial (current) use of systemic steroids See discussion above . I recommended followup with her primary physician regarding this issue. It's possible that she might benefit from a saline nasal spray such as [employer] [place]. Related to Nasal congestion If this is a symptom of dry skin, it should improve with the upcoming warmer weather. If that does not help, I would consider dermatology referral. Related to Pruritus See discussion above. Related to Xerostomia I think it's likely that she is having symptoms of secondary Sjogren's syndrome in the setting of her rheumatoid arthritis. She has dry eyes, dry mouth, and the nasal stuffiness may also be a symptom of nasal mucosal dryness. Even the itchy scalp could be a symptom of dry skin. I discussed conservative measures for managing the dry eyes and dry mouth. These will include [id number] preservative-free artificial tears (I gave her specific brand names to try) and a trial of Biotene products for the mouth. 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 Hopefully this means that the Plaquenil is starting to help her. She likely will have some further benefit from the Plaquenil and I think we can continue a very slow taper of her prednisone by 1 milligram per month as tolerated. Related to Rheu arthritis w rheu factor mult site w/o org/sys involv She will have routin e laboratories today for monitoring medications and disease. Related to Other care home (current) drug therapy See discussion above regarding further taper of her prednisone dose. Related to long term care administrator (current) use of systemic steroids As was noted at the time of her initial visit, I suspect that she does have osteoporosis. We will discuss this in more detail the next time I see her. Related to Age-related osteoporosis w/o current pathological fracture She is doing very we ll with her rheumatoid arthritis despite gradually decreasing her prednisone dose. I recommended further decrease of the prednisone by 1 milligram per month over the next 2 months. I will see her back in 2 months. She'll remain on her same dose of Plaquenil. Related to Rheu arthritis w rheu factor mult site w/o org/sys involv She appears to have conjunctivitis in the left eye although I would like her to see an bundle sorter to make sure that she does not have any rheumatoid-related inflammatory eye disease as the cause of this recent redness. I don't think this is a side effect of the Plaquenil. Related to Conjunctivitis See discussion above regarding the Plaquenil eye exam. Related to Other longwall foreman (current) drug therapy Again, I did not hav e a chance to discuss osteoporosis in any detail with her today. We will do so the next time I see her. Related to Age-related osteoporosis w/o current pathological fracture I think she does hav e seropositive rheumatoid arthritis. I recommended tapering her prednisone dose further to 8 mg daily. In addition, however, I recommended that we start her on Plaquenil after again discussing potential risks and benefits of that medication in detail with her. She will have a baseline Plaquenil eye exam within the next few months. She is aware that it will take at least 1-2 months to see any benefit at all from the Plaquenil and up to 6 months for full benefit. She was encouraged to call if she has any side effects. Related to Seropositive RA of multiple sites w/o organ involvement She has some pain in her left knee after falling on it 3 days ago but seems to be recovering normally from this without any suggestion of anything more than a contusion. I did not recommend any further evaluation of this. Related to Pain in left knee See discussion above regarding the prednisone. Related to custodial use of systemic steroids She has a diagnosis of type 2 diabetes but, as far as I can tell from her history, this has been fairly recent. She is not on treatment for this. I think it's unlikely that this has contributed to her musculoskeletal symptoms. Related to Type 2 diabetes mellitus without complications She has significant kyphosis on exam and has been on prednisone for 3 years at age 77. She likely has osteoporosis. She is taking calcium and vitamin D. She may be a candidate for parenteral treatment of her apparent osteoporosis with a medication such as Prolia or Reclast. I will discuss this in more detail with her the next time I see her. Related to Age-related osteoporosis w/o current pathological fracture She has some finding s of generalized osteoarthritis on exam also. This likely also is being masked by the prednisone. I may need to address this as she tapers her prednisone further. 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 This is called atypical by Dr. Gibson I assume this means that she was seronegative. Nevertheless, I would like to proceed with laboratory evaluation of her arthritis before deciding and more specific treatment. I certainly would not resume either methotrexate or leflunomide although I think it's unlikely that either of these medications cause any of the side effects that the patient attributes to them. Plaquenil might be a good choice for her. Short term, I recommended continuing taper of the prednisone but I'm going to slow that process down. For now, I recommended decreasing to 9 milligrams daily and she will stay on that dose until I see her again in one month. 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
--- OUTSIDE RECORDS SUMMARY | 2024-05-04 05:59 | XMS_ITS | Clinical Summary ---
Author Organization [employer] [facility] Address [place], [place] [address] Care Team Providers Care Concrete Pump Operator Name Role Phone ClaudiaBeto Ivan FAUST Unavailable [phone] Sharif Nunez MD Unavailable [phone] Riley Camacho MD Unavailable [phone] Constanza Cardozo MD Primary Care Provider [phone] Inga Caballero MD Unavailable [phone] Allergies Active Allergy Reactions Criticality Noted Date Comments Clonidine Hallucinations 05/03/2018 Leflunomide Hallucinations 12/21/2017 Lisinopril *Unknown 05/23/2018 Increased creatinine Methotrexate *Unknown 12/21/2017 Did not feel well Opioids - Morphine Analogues Vomiting 07/13/2022 Oxycodone Vomiting,*Unknown 08/11/2011 No reaction listed in [facility] Sulfa (Sulfonamide Antibiotics) *Unknown 12/03/2015 On clinic list No reaction listed in [facility] Hydrocodone-Acetaminoph en Vomiting 10/25/2014 Medications CALCIUM CARBONATE/VITAMI N D2 (CALCIUM + VITAMIN D ORAL) Take 1 tablet by mouth once daily. 01/12/20 10 Active multivitamin-min erals therapeutic tablet Take 1 tablet by mouth once daily. Active acetaminophen (TYLENOL EXTRA STRENGTH) 500 mg tabletIndication s:pain Take 2 tablets by mouth every 6 hours if needed. Max acetaminophen dose: 4000mg in 24 hrs. 0 07/15/19 18 Active hydrOXYchloroQUI NE (PLAQUENIL) 200 mg tablet Take 1 Tablet (200 mg) by mouth in the morning and 1 Tablet (200 mg) in the evening. 0 10/09/19 22 Active aspirin (ECOTRIN) 81 mg enteric coated tablet Take 1 Tablet (81 mg) by mouth once daily with a meal. 0 10/09/19 22 Active Catheter 14 FrIndications:Ur inary retention Coloplast Speedie Cath 6 times each day as directed 180 Each 01/05/20 23 Active methenamine hippurate (HIPREX) 1 gram tabletIndication s:Recurrent UTI (urinary tract infection) Take 1 Tablet (1 g) by mouth two times daily. 180 Tablet 1 11/16/19 24 Active alendronate (FOSAMAX) 70 mg tabletIndication s:Age related osteoporosis, unspecified pathological fracture presence Take 1 Tablet (70 mg) by mouth once a week in the morning. Take on empty stomach with full glass of water. Do not lie down for 1 hr. 12 Tablet 3 01/19/20 24 Active furosemide (LASIX) 20 mg tabletIndication s:Bilateral lower extremity edema Take 1 Tablet (20 mg) by mouth two times daily. 200 Tablet 3 01/19/20 24 Active losartan (COZAAR) 50 mg tabletIndication s:HTN (hypertension) Take 1 Tablet (50 mg) by mouth once daily. 100 Tablet 3 01/19/20 24 Active predniSONE (DELTASONE) 1 mg tablet Take 2 Tablets (2 mg) by mouth once daily with a meal. 01/19/20 24 Active clotrimazole (LOTRIMIN) 1 % creamIndications :Yeast dermatitis Apply topically to affected area(s) two times daily. 45 g 1 02/06/20 24 Active Active Problems Problem Noted Date Diagnosed Date White coat syndrome with hypertension 02/13/2023 Age-related osteoporosis wit hout current pathological fracture 10/11/2022 Overview (10/11/2022): - Fosamax started 10/16/2018 for osteopenia with elevated hip fracture risk. 35 mg weekly d/t ckd - Endo E-consult at [facility] 10/09/2020 with recommendation to continue fosamax for [...] She has hearing aids ([facility] in [place]). Obesity with body mass index 30 or greater 12/21 Arthritis, rheumatoid 08/17/2017 Overview (10/08/2021): RA Sees Dr. Nunez at [facility] [phone] fax [phone] Last Assessment & Plan: I went over [...] & Plan: She is here today because [facility] will not supply her with 6 catheters /day. They told her that medicare would only cover 4 catheters/day. She only has 10 catheters left and needs a supply. I contacted Verónica Escalante CONTINUOUS CRUSHER OPERATOR [place] [facility]. She sees her on a routine basis. She will provide Vanessa with enough catheters to get by until her order from [facility] is delivered. She will drive to [place] to molded goods spot picker the catheters. I had sent Dr. Lopez's order and visit note to [facility] in [place]. Renay Renee will process the order and [...] Encounters Date Type Department Care Team Description 04/02/2024 2:00 PM REFERRAL RN Office Visit [facility] [address] [place] [address] Inga Caballero MD Consult (Hyperthyroidism ) 04/02/2024 Travel 03/06/2024 10:00 AM REFERRAL RN Office Visit [facility] [address] [place] [address] Constanza Cardozo MD Derm Problem (Follow up from 02/05, Yeast infection in the groin, cleared up ) 03/06/2024 Travel 03/04/2024 Telephone [facility] [address] [facility] [place] [address] Constanza Cardozo MD Medication Management (clotrimazole (LOTRIMIN) 1 % cream) 02/14/2024 1:30 PM REFERRAL RN - 02/14/2024 11:59 PM REFERRAL RN Hospital Encounter [facility] [address] [place] [address] Constanza Cardozo MD 02/14/2024 Travel 02/13/2024 1:22 PM REFERRAL RN - 02/13/2024 11:59 PM REFERRAL RN Hospital Encounter [facility] [address] [place] [address] Constanza Cardozo MD Subclinical hyperthyroidism 02/12/2024 10:45 AM REFERRAL RN Orders Only [address] [address] Lab, [place] 02/12/2024 Travel 02/06/2024 11:35 AM REFERRAL RN Office Visit [facility] [address] [place] [address] Karmen Villanueva PA Vaginal Problem 02/06/2024 Travel 02/05/2024 Telephone [facility] [address] [place] [address] Meena Kumari MD Results (ultrasound) 02/02/2024 2:30 PM REFERRAL RN Ancillary Procedure [facility] [address] [place] [address] 02/02/2024 Telephone [facility] [address] [facility] [address] Constanza Cardozo MD Blood Pressure (Dropped off readings) 02/02/2024 Travel 02/02/2024 Telephone [facility] [address] [facility] [address] Constanza Cardozo MD Blood Pressure from Last 3 Months Immunizations Name Administration [...] is your housing situation today? 1 02/06/2024 Utilities Answer Date Recorded Do you have trouble paying f or utilities (for example, heat, electricity, water, phone)? 1 02/06/2024 Comments No Sex and Gender Information Value Date Recorded Sex Assigned at Not on file Legal Sex Female 3:06 PM REFERRAL RN Gender Identity Not on file Sexual Orientation Not on file Obstetrics History Last Filed Vital Signs Vital Sign Reading Time Taken Comments Blood Pressure 140/60 04/02/2024 2:06 PM REFERRAL RN Pulse 95 04/02/2024 2:02 PM REFERRAL RN Temperature 36.7 C (98 F) 02/06/2024 11:27 AM REFERRAL RN Respiratory Rate 16 05/01/2023 1:02 PM REFERRAL RN Oxygen Saturation 98% 04/02/2024 2:02 PM REFERRAL RN Inhaled Oxygen Concentration - - Weight 62.6 kg (138 lb) 04/02/2024 2:02 PM REFERRAL RN Height 157.4 cm (5' 1.97) 01/19/2024 2:21 PM CD T Body Mass Index 25.27 01/19/2024 2:21 PM CDT Plan of Treatment Upcoming Encounters Date Type Department Care Team (Late st Contact Info) Description 08/08/2024 3:00 PM CDT Office Visit [facility] [address] [facility] [place] [address] Eliseo Dias MD [address] [place] [address] 04/03/2025 2:00 PM REFERRAL RN Office Visit [facility] [address] [facility] [address] [place] [address] [place] [address] [facility] [place], [place] [id number] Health Maintenance Due Date Last Done Comments [...] booster 02/02/2026 02/03/2016 Pneumococcal series for age 50+ Completed 5, 07/09/2005 Tdap Completed 02/03/2016 DEXA/DXA scan for age 65+ Completed 2022, 12/14/2020 (Verified in Care Everywhere or Patient Record) Medical Devices Implanted Type Area [employer]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 Device Identifier Shelf Expiration Date Model / Serial / Lot Lead Bladder 28cm Interstim Tined 3mm Spacing - [id number] Implanted:Qty: 1 on 05/04/2016 by Cesar Groves MD at [facility] N/A: Sacrum [employer] 04/25/2020 3889-28# / / [id number] Stimulator 7.7mm 14cc Interstim Ii - [id number] Implanted:Qty: 1 on 05/11/2016 by Cesar Groves MD at [facility] N/A: Sacrum [employer] Pain Therapy 10/07/2017 3058# / / [id number] Cmnt Bone 40g Simplex P Non Atb Mv - [id number] Implanted:Qty: 2 on 07/12/2017 by Ignacio Mead MD at [facility] Right: Knee [employer] 04/26/2018 6191-1-010 # / / [id number] Cmnt Bone 40g Simplex P Non Atb Mv - [id number] Implanted:Qty: 1 on 07/12/2017 by Ignacio Mead MD at [facility] Right: Knee [employer] 04/26/2018 6191-1-010 # / / [id number] X4023-U-610 - [id number] Implanted:Qty: 1 on 07/12/2017 by Ignacio Mead MD at [facility] Right: Knee [employer] 04/27/2022 5551-G-350 / / [id number] Description:Triathlon X3 Asy mmetric patella A7282-G-704 - [id number] Implanted:Qty: 1 on 07/12/2017 by Ignacio Mead MD at [facility] Right: Knee [employer] 03/11/2022 5520-B-500 / / [id number] Description:Triathlon primar y tibial baseplate K4185-P-888 - [id number] Implanted:Qty: 1 on 07/12/2017 by Ignacio Mead MD at [facility] Right: Knee [employer] 05/21/2021 5510-F-502 / / [id number] Description:Triathlon crucia te retaining femoral W2411-P-868 - [id number] Implanted:Qty: 1 on 07/12/2017 by Ignacio Mead MD at [facility] Right: Knee 5531-G-50 9 / / [id number] Description:X3 triathlon CS INS Explanted Type Area [employer]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 Device Identifier Shelf Expiration Date Model / Serial / Lot Lead Intrdcr Bladder Interstim - [id number] Explanted:Qty: 1 on 05/04/2016 by Cesar Groves MD at [facility] N/A: Sacrum [employer] Pain Therapy 05/27/2017 3550-18# / / [id number] Procedures Procedure Name Priority Date/Time Associated Diagnosis Comments NM THYROID UPTAKE W/BLOOD FLOW SNGLE MULT RUSH JI Routine 02/14/2024 2:55 PM REFERRAL RN Subclinical hyperthyroidism T3,TOTAL Routine 02/12/2024 10:40 AM REFERRAL RN Subclinical hyperthyroidism TSI (THYROID STIMULATING IMMUNOGLOBULIN) ([facility]) Routine 02/12/2024 10:40 AM REFERRAL RN Subclinical hyperthyroidism US THYROID/PARATHYROID Routine 02/02/2024 2:41 PM REFERRAL RN Thyroid nodule XR DXA BONE DENSITY 2 SITES AXIAL Routine 10/06/2022 10:59 AM CDT Age-related osteoporosis without current pathological fracture from Last 3 Months or Most Recently Relevant to Health Maintenance Results * NM THYROID UPTAKE W/BLOOD FLOW SNGLE MULT RUSH JI (02/14/2024 2:55 PM REFERRAL RN) Anatomical Region Laterality Modality THYROID Nuclear Medicine 02/14/2024 5:12 PM REFERRAL RN Impressions 02/14/2024 5:12 PM REFERRAL RN 1. Scintigraphically heterogeneous appearing right thyroid lobe which may reflect a dominant right thyroid lobe nodule reportedly biopsied and proven as benign. Please correlate with any pertinent pathology results. 2. Low normal 24 hour thyroid uptake of 10.2 percent. Dictated by Ignacio Ocasio MD @ 02/14/2024 5:12:41 PM (Electronically Signed) Narrative 02/14/2024 5:12 PM REFERRAL RN For Patients: As a result of the [...] PM (Electronically Signed) Constanza Cardozo MD NM Final Resul t * TSI (THYROID STIMULATING IMMUNOGLOBULIN) (QUEST) (02/12/2024 10:40 AM REFERRAL RN) TSI (THYROID STIMULATING IMMUNOGLOBULIN) <89 <140 % baseline [facility], Comment: Thyroid stimulating immunoglobulins (TSI) can engage [...] of this assay have been determined by [facility]. The modifications have not been cleared or approved by the FDA. This assay has been validated pursuant to the CLIA regulations and is used for clinical purposes. Blood BLOOD SPECIMEN / Unknown 02/12/2024 10:40 AM REFERRAL RN 02/12/2024 10:41 AM REFERRAL RN Constanza Cardozo MD SEND OUTS Final Resul t [employer] [facility] [address] [place] [address], [facility], [address] [place] [address] * T3,TOTAL (02/12/2024 10:40 AM REFERRAL RN) T3, TOTAL 99 76 - 181 ng/dL [facility]Silvino [facility]son Blood BLOOD SPECIMEN / Unknown 02/12/2024 10:40 AM REFERRAL RN 02/12/2024 10:41 AM REFERRAL RN us Constanza Cardozo MD CHEMISTRY Final Resul t [facility] [address] [place] [address], [facility] [address] [place] [address] * US THYROID/PARATHYROID (02/02/2024 2:41 PM REFERRAL RN) Anatomical Region Laterality Modality THYROID Ultrasound 02/04/2024 7:13 AM REFERRAL RN Impressions 02/04/2024 7:13 AM REFERRAL RN No significant interval change in the 3.6 cm nodule within the right thyroid lobe. Dictated by Eliseo Gutierrez MD @ 02/04/2024 7:13:47 AM (Electronically Signed) Narrative 02/04/2024 7:13 AM REFERRAL RN For Patients: As a result of the [...] MD @ 02/04/2024 7:13:47 AM (Electronically Signed) us Meena Kumari MD Final Resu lt * (ABNORMAL) XR DXA BONE DENSITY 2 [...] on fosamax greater than 5 years. Na McLeran PA-C [facility] 10/11/2022 Narrative 10/11/2022 2:15 PM CDT For Patients: Results are automatically released to your [facility] account once available, in compliance with federal regulations. This means that you may see your results before your provider has had a chance to review them. Please allow 2-3 business days for your provider to comment on the results. XR DXA Bone Mineral Density (BMD) EXAM LOCATION: [facility] [address] [facility] [address] PATIENT NAME: Vanessa Andino DATE OF : [...] two scanners are made by the same thrill performer. 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 07/14/2017 8:01 AM 01/12/2017 Power of Spanish Professor 07/14/2017 7:57 AM 01/06 Healthcare Directive 07/14/2017 7:57 AM * Full Code (Latest Code Status on File) Date Activated Date Inactivated Comments 07/12/2017 7:10 AM 07/14/2017 4:57 PM * Full Code Date Activated Date Inactivated Comments 05/11/2016 10:33 AM 05/11/2016 7:12 PM * Full Code Date Activated Date Inactivated Comments 05/04/2016 7:01 AM 05/04/2016 3:07 PM Care Teams Concrete Pump Operator Relationship Specialty Start Date End Date Constanza Cardozo MD [address] [place] [address] PCP - General Family Practice 08/25/22 Claudia, CHRISTIANNE Wang Tube Building Machine Operator 07/13/17 Sharif Nunez MD [address] [facility] [address] [place] [address] Rheumatology 10/08/21 Riley Camacho MD [address] [facility] [place] [address] Surgery - Urology 08/25/22 [place] [address] [place] [address] Endocrinology Endocrinology 04/02/24
[2024-05-04 06:05] VITALS: BP 140/58; PULSE 73; RESP 16; TEMP 36.1; O2SAT 97; BMI 24.6
--- NOTE | 2024-05-04 06:06 | ED_ITS ---
HPI - General Adult General Date Seen: 05/04/24 Chief complaint: Nausea/Vomiting Stated complaint: sore lips, feels like vomiting Time Seen by Provider: 05/04/24 06:06 History of Present Illness HPI narrative: 83 yo F with past medical history of hypertension, dyslipidemia, chronic kidney disease, rheumatoid arthritis (on Plaquenil. She says she is tapering down her dose of prednisone as well), history of DVT, history of urinary tract infections, sensorineural hearing loss, neurogenic bladder (self catheterizes) a recent diagnosis of thrush (in urgent care on 04/30). Also per medical record she was seen in the wound clinic on 04/24/2024 for a cellulitis on her left leg. She was put on a course of doxycycline (100 mg p.o. b.i.d. for 10 days). The patient feels like the lower lip sores began a couple of days after starting on the doxycycline. She stop taking the doxycycline a couple of days ago suspecting that she was reacting to the antibiotic. She has had painful source that started a small blister on the inside of her lower lip and has spread across the entire mucosal surface on the inside of her lower lip. She also has some cracking on the vermilion portion of the skin of her lower lip. No lesions on her upper lip. No lesions on her tongue. No lip lesions on her cheeks. No other rash. No itchy eyes. No rash on her genitals. No new trouble with urination. No fever or chills. Per urgent care notes she had presented to the urgent care on 04/30 with a 7 day history of a sore on the inner part of her lower lip. She was on doxycycline to treat a leg wound that time. She was prescribed nystatin for possible throughout Related Data Home Medications ?Medication ?Instructions ?Recorded ?Confirmed aspirin 81 mg tablet,delayed 81 mg PO DAILY 10/04/21 04/30/24 release (Adult Aspirin Regimen) multivitamin (Multiple Vitamins 1 tab PO QDAY 11/26/21 04/30/24 tablet) alendronate 70 mg tablet 70 mg PO SILVA 02/28/22 04/30/24 calcium 600 mg (as 1 cap PO DAILY 02/28/22 04/30/24 carbonate)-vitamin D3 12.5 mcg (500 unit) capsule (Calcium with Vit D3) furosemide 20 mg tablet 20 mg PO BID 02/28/22 04/30/24 hydroxychloroquine 200 mg tablet 200 mg PO BID 02/28/22 04/30/24 losartan 50 mg tablet 50 mg PO DAILY 02/28/22 04/30/24 sennosides 8.6 mg-docusate sodium 1 tab-cap PO DAILY 02/28/22 04/30/24 50 mg tablet (Laxative Stool Softener With Senna) acetaminophen 500 mg tablet 1,000 mg PO Q6H PRN 07/13/22 04/30/24 (Acetaminophen Extra Strength) methenamine hippurate 1 gram tablet 1 g PO BID 11/26/22 04/30/24 Previous Rx's ?Medication ?Instructions ?Recorded doxycycline hyclate 100 mg capsule 100 mg PO BID #20 caps 04/24/24 nystatin 100,000 unit/mL oral 400,000 unit (4 mL) buccal QID 7 04/30/24 suspension days #112 mL Magic Mouthwash 5 ml PO Q4H PRN #120 mL 05/04/24 (Lidocaine/Benadryl/Maalox) 120 mL suspension cephalexin 500 mg capsule 500 mg PO TID 7 days #21 caps 05/04/24 ondansetron 4 mg disintegrating 4 mg PO Q8H PRN nausea and 05/04/24 tablet vomiting #6 tabs prednisone 10 mg tablet 10 mg PO DIRECTED #20 tabs 05/04/24 Allergies Allergy/AdvReac Type Severity Reaction Status Date / Time clonidine Allergy Mild Hallucinati Verified 04/30/24 18:36 ng leflunomide Allergy Mild Hallucinati Verified 04/30/24 18:36 ng lisinopril Allergy Mild increased Verified 04/30/24 18:36 creatinine methotrexate Allergy Mild did not Verified 04/30/24 18:36 feel well hydrocodone Allergy Unknown Vomiting Verified 04/30/24 18:36 oxycodone Allergy Unknown Verified 04/30/24 18:36 Opioids - Morphine Analogues Allergy Verified 04/30/24 18:36 Sulfa (Sulfonamide Allergy Verified 04/30/24 18:36 Antibiotics) surgical glue Allergy Uncoded 04/30/24 18:36 [facility] Medical History (Updated 05/04/24 @ 06:36 by Riley Hi MD) Lower extremity edema ?R60.0 - Localized edema (ICD-10) Pneumonia ?J18.9 - Pneumonia, unspecified organism (ICD-10) Weakness ?R53.1 - Weakness (ICD-10) Sepsis ?A41.9 - Sepsis, unspecified organism (ICD-10) Gram-negative bacteremia ?R78.81 - Bacteremia (ICD-10) Lung nodules ?R91.8 - Other nonspecific abnormal finding of lung field (ICD-10) Sensorineural hearing loss, bilateral ?H90.3 - Sensorineural hearing loss, bilateral (ICD-10) Prediabetes ?R73.03 - Prediabetes (ICD-10) Presence of neurostimulator ?Z96.82 - Presence of neurostimulator (ICD-10) Sacral nerve stimulator present ?Z96.82 - Presence of neurostimulator (ICD-10) Recurrent urinary tract infection ?N39.0 - Urinary tract infection, site not specified (ICD-10) Hyperlipidemia ?E78.5 - Hyperlipidemia, unspecified (ICD-10) History of DVT (deep vein thrombosis) ?Z86.718 - Personal history of other venous thrombosis and embolism (ICD-10) Stage 3 chronic kidney disease ?N18.30 - Chronic kidney disease, stage 3 unspecified (ICD-10) Rheumatoid arthritis ?M06.9 - Rheumatoid arthritis, unspecified (ICD-10) Back problem ?M53.9 - Dorsopathy, unspecified (ICD-10) High blood pressure ?I10 - Essential (primary) hypertension (ICD-10) Osteoarthritis ?M19.90 - Unspecified osteoarthritis, unspecified site (ICD-10) Surgical History (Updated 07/21/22 @ 00:00 by Edilberto Jefferson) S/P ORIF (open reduction internal fixation) fracture ?Z98.890 - Other specified postprocedural states (ICD-10) ?Z87.81 - Personal history of (healed) traumatic fracture (ICD-10) S/P total knee arthroplasty ?Z96.659 - Presence of unspecified artificial knee joint (ICD-10) H/O hysterectomy with oophorectomy History of cholecystectomy ?Z90.49 - Acquired absence of other specified parts of digestive tract (ICD- 10) Family History Mother Stroke Rheumatoid arthritis Brother Diabetes Coronary artery disease Father Pancreatic cancer Social History Narrative: patient lives independently with her significant other, Cirilo Chambers. She has a niece, Peg. 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 Code status is full. Highest level of school completed/degree received: some college, no degree Smoking Status: Never smoker Do you use any of these nicotine containing products: None Second hand tobacco smoke exposure: No How often do you have a drink containing alcohol: never How often do you have six or more drinks on one occasion: Never AUDIT-C Alcohol total score: 0 Non-prescribed substance use: denies use Caffeine: Yes (1/2 cup of coffee a day) Gender Identity: female Are you using contraception or practicing any form of control: No service: No Exam Narrative: Exam Narrative: Constitutional: Appears well-developed and well-nourished. Alert. Conversant. Non toxic. She is accompanied by her fiance who is attentive HENT: Head: Atraumatic. Nose: Nose normal. Mouth/Throat: The patient has a ulcerated mucosal lesions affecting the mucosal surface of her lower lip with some cracked skin on the earlier portion of her lip. No lesions on the upper lip. No lesions on her buccal mucosa. Submandi bular tissues, hard palate and soft palate, pharynx, tongue are normal. No other intraoral ulcers, vesicles or other lesions. no trismus. No swelling of her submandibular tissues. Pharynx normal. Tonsils symmetric. No tonsillar enlargement, erythema, or exudate. Eyes: Conjunctivae normal. No sign of conjunctivitis EOM normal. Pupils equal, round, and reactive to light. No scleral icterus. Neck: Normal range of motion. Neck supple. No tracheal deviation present. Cardiovascular: Normal rate, regular rhythm. No gallop. No friction rub. No murmur heard. Symmetric radial artery pulses Pulmonary/Chest: Effort normal. No stridor. No respiratory distress. Musculoskeletal: RUE: Normal range of motion. No tenderness. No deformity LUE: Normal range of motion. No tenderness. No deformity RLE: Normal range of motion. No edema. No tenderness. No deformity LLE: She has a wound on her left distal lower leg, proximal to the ankle. There is no purulent drainage. No surrounding erythema. No signs of cellulitis or abscess. Normal range of motion. No edema. No tenderness. No deformity Neurological: Alert and oriented to person, place, and time. Normal strength. CN II-VII intact. No sensory deficit. GCS eye subscore is 4. GCS verbal subscore is 5. GCS motor subscore is 6. Normal coordination Skin: Skin is warm and dry. No rash noted. No pallor. Normal capillary refill. Psychiatric: Normal mood. Normal affect. Const: Vital Signs, click to edit/add: Vital Signs - 24 hr 05/04/24 06:05 Temperature 97 F L Pulse Rate [Pulse Oximeter] 73 Respiratory Rate 16 Blood Pressure [Ri ght Upper Arm] 140/58 H Pulse Oximetry 97 Oxygen Delivery Me thod Room Air Course Vital Signs Vital signs: Initial Vital Signs Temperature 97 F L 05/04/24 06:05 Temperature Source Temporal Artery Scan 05/04/24 06:05 Pulse Rate 73 05/04/24 06:05 Respiratory Rate 16 05/04/24 06:05 Blood Pressure 140/58 H 05/04/24 06:05 Blood Pressure Mean 85 05/04/24 06:05 Blood Pressure Position Sitting 05/04/24 06:05 Pulse Oximetry 97 05/04/24 06:05 Oxygen Delivery Method Room Air 05/04/24 06:05 Vital Signs Temperature 97 F L 05/04/24 06:05 Pulse Rate 73 05/04/24 06:05 Respiratory Rate 16 05/04/24 06:05 Blood Pressure 140/58 H 05/04/24 06:05 Pulse Oximetry 97 05/04/24 06:05 Oxygen Delivery Method Room Air 05/04/24 06:05 Temperature 97 F L 05/04/24 06:05 Pulse Rate 73 05/04/24 06:05 Respiratory Rate 16 05/04/24 06:05 Blood Pressure 140/58 H 05/04/24 06:05 Pulse Oximetry 97 05/04/24 06:05 Oxygen Delivery Method Room Air 05/04/24 06:05 Medications Administered Medications: Generic Name Dose Route Start Last Admin Trade Name Freq PRN Reason Stop Dose Admin Lidocaine HCl 5 ml 05/04/24 06:33 05/04/24 06:41 Lidocaine Viscous 2% 15 Ml Solution SWISH/SWAL 05/04/24 06:34 5 ml ONCE ONE Administration Ondansetron HCl 4 mg 05/04/24 06:33 05/04/24 06:42 Ondansetron Odt 4 Mg Tab PO 05/04/24 06:34 4 mg ONCE ONE Administration Prednisone 40 mg 05/04/24 06:33 05/04/24 06:42 Prednisone 20 Mg Tablet PO 05/04/24 06:34 40 mg ONCE ONE Administration Medical Decision Making MDM Narrative Medical decision making narrative: Pleasant 83-year-old female with a history of rheumatoid arthritis on prednisone 1 mg daily and on Plaquenil, who has a chronic nonhealing wound on her left lower leg which was complicated by developing cellulitis about 10 days ago and put on doxycycline. She developed a painful blistering rash affecting the mucosal surface and the linear portion of her lower lip about a week ago. She had been seen in the urgent care about 3 days ago and put on nystatin for p ossible thrush but is not getting better. Because she has ongoing pain on her lower lip she came to the ER this morning. She has just fed up because her lip is hurting a lot. Differential for the mucosal lesions on her lower lip is broad. She denies any history of trauma to the lip or burn. She has not been biting her lip. No recent dental anesthesia or dental procedures. She does not really have whitish plaques in her mouth, on her lip, or other he was to really suggest classic thrush. I think it is reasonable to stop the nystatin at this time. Her mucosal lesions are isolated to her lower lip. No evidence for any other intraoral lesions or other mucosal lesions such as eye conjunctivitis, or lesions involving the genital or rectal mucosa. She has no other skin rashes. No blistering or desquamation to suggest SJS or ZAK and. No recent sore throat. No other skin rashes suggest efflux coccal scalded skin. Mucosal lesions are not consistent with allergic reaction. I am suspicious that this is probably add oral mucositis as a reaction to doxycycline. She is already stop taking the doxycycline and I would agree that she should continue to avoid it. Over the long-term she has been trying to taper down her dose of prednisone (on prednisone for are a). Will temporarily put her back up to 40 mg per day for 3 days and then taper back down to her 1 mg per day longstanding dose. In addition to that we can treat her painful lip supportively with topical anesthetics. Prescription for Magic mouthwash provided. Today, the skin on her left leg looks good without any redness or erythema or signs of active cellulitis. I will give her prescription for cephalexin that she can use only if recurrent signs of infection develop. Otherwise she will avoid that antibiotic. Recommend close outpatient follow-up with primary care within 2 days and/or return to the ER for recheck if worsening. Discharge Plan Discharge Clinical Impression: Acute mucositis Patient Disposition: Home, Self-Care Condition: Stable Instructions: Oral Mucositis (ED) Additional Instructions: At this time we suspect that the sores on your lower lip are caused as a side effect of your antibiotic-doxycycline. Please stop taking the doxycycline. IF THE INFECTION ON YOUR LEG RETURNS Start the different antibiotic (cephalexin). I do not think your lip sores are due to thrush. You can stop taking the nystatin for now To help soothe the mouth sores you can use the magic mouthwash (numbing gently) every 4 hours as needed. Please try to drink plenty of liquids. Eat soft, bland foods and liquids. Avoid spicy or acidic food. If your lip is not improving within the next 2-3 days, please recheck with your doctor or come back to the ER If you have worsening problems with new sores in your mouth, rash on your skin or sores on other parts of her body such as your eyes or genitals, please return to the ER right away. Prescriptions: New Magic Mouthwash (Lidocaine/Benadryl/Maalox) 120 mL suspension 5 ml PO Q4H PRNQty: 120 0RF Rx Instructions: Lidocaine Viscous 2 % mucosal solution 40 mL; Maalox 200 mg-200 mg-20 mg/5 mL oral suspension 40 mL; Benadryl 12.5 mg/5 mL oral elixir 40 mL; Per 120 mL SWISH AND SPIT. MAY COMPOUND IF FIRST PRODUCT IS NOT AVAILABLE. cephalexin 500 mg capsule 500 mg PO TID 7 Days Qty: 21 0RF ondansetron 4 mg tablet,disintegrating 4 mg PO Q8H PRN (Reason: nausea and vomiting) Qty: 6 0RF prednisone 10 mg tablet 10 mg PO DIRECTED Qty: 20 0RF Rx Instructions: 40 mg PO daily for 2 days, then 30mg PO daily for 2 days, then 20mg PO daily for 2 days, then 10mg PO daily for 2 days, then resume your normal dose. No Action methenamine hippurate 1 gram tablet 1 g PO BID multivitamin [Multiple Vitamins] Tablet 1 tab PO QDAY nystatin 100,000 unit/mL suspension 400,000 unit buccal QID 7 Days Qty: 112 0RF Rx Instructions: Apply to the lower lip using cotton swab. aspirin [Adult Aspirin Regimen] 81 mg tablet,delayed release (DR/EC) 81 mg PO DAILY sennosides-docusate sodium [Lax Stool Softener With Senna] 8.6-50 mg tablet 1 tab-cap PO DAILY calcium carbonate-vitamin D3 [Calcium 600 with Vitamin D3] 600 mg-12.5 mcg (50 0 unit) capsule 1 cap PO DAILY hydroxychloroquine 200 mg tablet 200 mg PO BID Patient Comments: TAKE 1 TABLET BY MOUTH TWICE DAILY losartan 50 mg tablet 50 mg PO DAILY furosemide 20 mg tablet 20 mg PO BID alendronate 70 mg tablet 70 mg PO SILVA Patient Comments: TAKE 1 TABLET BY MOUTH EVERY 7 DAYS ON AN EMPTY STOMACH. REMAIN UPRIGHT FOR 30 MINUTES. TAKE WITH 8 OUNCES OF WATER acetaminophen [Acetaminophen Extra Strength] 500 mg tablet 1,000 mg PO Q6H PRN doxycycline hyclate 100 mg capsule 100 mg PO BID Qty: 20 0RF Follow Up/Referrals: Constanza Cardozo MD [Primary Care Provider] - Stand Alone Forms: [facility] Info Instructions
[2024-05-04] MEDS: predniSONE 20 MG TABLET 40 MG PO (06:42)
[2024-05-04] MEDS: ONDANSETRON ODT 4 MG TAB PO (06:42)
--- OUTSIDE RECORDS SUMMARY | 2024-05-04 07:02 | XMS_ITS | Continuity of Care Document ---
Author Organization [facility] Address [address] [place] [address] Phone Care Team Providers Care Facilities Engineer Name Role Phone Sharif Nunez MD Unavailable [...] Protein Dna Antibody, Single Strand Dna Antibody, [place] Nuclear Antigen Antibodies CCP Antibody Lyme Disease [...] Est [facility] , [address], [place], [address], [place] tel:[phone] [facility] , Follow Up of Seropositive rheumatoid arthritis (chief complaint)Os teoporosis (chief complaint)Os teoarthritis (chief complaint) Rheumatoid arthritis with rheumatoid factor of multiple sites without organ or systems involvementA ge-related osteoporosis without current pathological fractureLong term (current) use of systemic steroidsOthe r supervisor intermediates (current) drug therapyCellu litis of left lower limb 4 Mayra Olguin. [facility] [address], [place], [address], [place]. tel:[phone] Referring Provider: Sharif Phipps, [facility] [address], [place], [address]. tel:[phone] Office/Outpa tient Visit, Est [facility] , [address], [place], [address], [place] tel:[phone] [facility] , Follow Up of Seropositive rheumatoid arthritis (chief complaint)Os teoporosis (chief complaint)Os teoarthritis (chief complaint) Rheumatoid arthritis with rheumatoid factor of multiple sites without organ or systems involvementA ge-related osteoporosis without current pathological fractureLong term (current) use of systemic steroidsOthe r usp (current) drug therapyCellu litis of left lower limb 4 Mayra Olguin. [facility] [address], [place], [address], [place]. tel:[phone] Referring Provider: Sharif Phipps, [facility] [address], [place], [address]. tel:[phone] [facility] , [address], [place], [address], [place] tel:[phone] [facility] , No Information 4 Mayra Olguin. [facility] [address], [place], [address], [place]. tel:[phone] Office/Outpa tient Visit, Est [facility] , [address], [place], [address], [place] tel:[phone] [facility] , Follow Up of Seropositive rheumatoid arthritis (chief complaint)Os teoporosis (chief complaint)Os teoarthritis (chief complaint) Rheumatoid arthritis with rheumatoid factor of multiple sites without organ or systems involvementA ge-related osteoporosis without current pathological fractureLong term (current) use of systemic steroidsOthe r supervisor intermediates (current) drug therapyCellu litis of left lower limb 4 Mayra Olguin. [facility] [address], [place], [address], [place]. tel:[phone] Referring Provider: Sharif Phipps, [facility] [address], [place], [address]. [phone] Office/Outpa tient Visit, Est [facility] , [address], [place], [address], [place] tel:[phone] [facility] , Follow Up of Seropositive rheumatoid arthritis (chief complaint)Os teoporosis (chief complaint)Os teoarthritis (chief complaint) Rheumatoid arthritis with rheumatoid factor of multiple sites without organ or systems involvementA ge-related osteoporosis without current pathological fractureLong term (current) use of systemic steroidsOthe r supervisor intermediates (current) drug therapyCellu litis of left lower limb 4 Mayra Olguin. [facility] [address], [place], [address], [place]. tel:[phone] Referring Provider: Sharif Phipps, [facility] [address], [place], [address]. tel:[phone] Office/Outpa tient Visit, Est [facility] , [address], [place], [address], [place] tel:[phone] [facility] , Follow Up of Seropositive rheumatoid arthritis (chief complaint)Os teoporosis (chief complaint)Os teoarthritis (chief complaint) Rheumatoid arthritis with rheumatoid factor of multiple sites without organ or systems involvementA ge-related osteoporosis without current pathological fractureLong term (current) use of systemic steroidsOthe r supervisor intermediates (current) drug therapyCellu litis of left lower limb 3 Mayra Olguin. [facility] [address], [place], [address], [place]. tel:[phone] Referring Provider: Sharif Phipps, [facility] [address], [place], [address]. tel:[phone] Office/Outpa tient Visit, Est [facility] , [address], [place], [address], [place] tel:[phone] [facility] , Follow Up of Seropositive rheumatoid arthritis (chief complaint)Os teoporosis (chief complaint)Os teoarthritis (chief complaint) Rheumatoid arthritis with rheumatoid factor of multiple sites without organ or systems involvementO ther low back painAge-rela sheryl osteoporosis without current pathological fractureLong term (current) use of systemic steroidsOthe r supervisor intermediates (current) drug therapy 3 Mayra Olguin. [facility] [address], [place], [address], [place]. tel:[phone] Referring Provider: Sharif Phipps, [facility] [address], [place], [address]. tel:[phone] Office/Outpa tient Visit, Est [facility] , [address], [place], [address], [place] tel:[phone] [facility] , Follow Up of Seropositive rheumatoid arthritis (chief complaint)Os teoporosis (chief complaint)Os teoarthritis (chief complaint) Rheumatoid arthritis with rheumatoid factor of multiple sites without organ or systems involvementO ther low back painAge-rela sheryl osteoporosis without current pathological fractureLong term (current) use of systemic steroidsOthe r supervisor intermediates (current) drug therapy 3 Mayra Olguin. [facility] [address], [place], [address], [place]. tel:[phone] Referring Provider: Sharif Phipps, [facility] [address], [place], [address]. tel:[phone] Office/Outpa tient Visit, Est [facility] , [address], [place], [address], [place] tel:[phone] [facility] , Follow Up of Seropositive rheumatoid arthritis (chief complaint)Os teoporosis (chief complaint)Os teoarthritis (chief complaint) Rheumatoid arthritis with rheumatoid factor of multiple sites without organ or systems involvementO ther low back painAge-rela sheryl osteoporosis without current pathological fractureLong term (current) use of systemic steroidsOthe r supervisor intermediates (current) drug therapy 3 Mayra Olguin. [facility] [address], [place], [address], [place]. tel:[phone] Referring Provider: Sharif Phipps, [facility] [address], [place], [address]. tel:[phone] Office/Outpa tient Visit, Est [facility] , [address], [place], [address], [place] tel:[phone] [facility] , Follow Up of Seropositive rheumatoid arthritis (chief complaint)Os teoporosis (chief complaint)Os teoarthritis (chief complaint) Rheumatoid arthritis with rheumatoid factor of multiple sites without organ or systems involvementO ther low back painAge-rela sheryl osteoporosis without current pathological fractureLong term (current) use of systemic steroidsOthe r usp (current) drug therapy 2 Mayra Olguin. [facility] [address], [place], [address], [place]. tel:[phone] Referring Provider: Sharif Phipps, [facility] [address], [place], [address]. tel:[phone] Office/Outpa tient Visit, Est [facility] , [address], [place], [address], [place] tel:[phone] [facility] , Follow Up of Seropositive rheumatoid arthritis (chief complaint)Os teoporosis (chief complaint)Os teoarthritis (chief complaint) Rheumatoid arthritis with rheumatoid factor of multiple sites without organ or systems involvementO ther low back painAge-rela sheryl osteoporosis without current pathological fractureLong term (current) use of systemic steroidsOthe r usp (current) drug therapy 2 Mayra Olguin. [facility] [address], [place], [address], [place]. tel:[phone] Referring Provider: Sharif Phipps, [facility] [address], [place], [address]. tel:[phone] Office/Outpa tient Visit, Est [facility] , [address], [place], [address], [place] tel:[phone] [facility] , Follow Up of Seropositive rheumatoid arthritis (chief complaint)Os teoporosis (chief complaint)Os teoarthritis (chief complaint) Rheumatoid arthritis with rheumatoid factor of multiple sites without organ or systems involvementA ge-related osteoporosis without current pathological fractureLong term (current) use of systemic steroidsOthe r usp (current) drug therapyOther low back pain Mar-0 3-202 2 Mayra Mcdonald [facility] [address], [place], [address], [place]. tel:[phone] Referring Provider: Sharif Phipps, [facility] [address], [place], [address]. tel:[phone] Office/Outpa tient Visit, Est [facility] , [address], [place], [address], [place] tel:[phone] [facility] , Follow Up of Seropositive rheumatoid arthritis (chief complaint)Os teoporosis (chief complaint)Os teoarthritis (chief complaint) Rheumatoid arthritis with rheumatoid factor of multiple sites without organ or systems involvementH allucination Eric-related osteoporosis without current pathological fractureOthe r supervisor intermediates (current) drug therapyLong term (current) use of systemic steroids 1 Mayra Mcdonald [facility] [address], [place], [address], [place]. tel:[phone] Referring Provider: Sharif Phipps, [facility] [address], [place], [address]. tel:[phone] Office/Outpa tient Visit, Est [facility] , [address], [place], [address], [place] tel:[phone] [facility] , Follow Up of Seropositive rheumatoid arthritis (chief complaint)Os teoporosis (chief complaint)Os teoarthritis (chief complaint) Rheumatoid arthritis with rheumatoid factor of multiple sites without organ or systems involvementH allucination Eric-related osteoporosis without current pathological fractureOthe r usp (current) drug therapyLong term (current) use of systemic steroids 1 Mayra Mcdonald [facility] [address], [place], [address], [place]. tel:[phone] Referring Provider: Sharif Phipps, [facility] [address], [place], [address]. tel:[phone] Office/Outpa tient Visit, Est [facility] , [address], [place], [address], [place] tel:[phone] [facility] , Follow Up of Seropositive rheumatoid arthritis (chief complaint)Os teoporosis (chief complaint) Rheumatoid arthritis with rheumatoid factor of multiple sites without organ or systems involvementO ther usp (current) drug therapyLong term (current) use of systemic steroidsAge- related osteoporosis without current pathological fracture 1 Mayra Olguin. [facility] [address], [place], [address], [place]. tel:[phone] Referring Provider: Sharif Phipps, [facility] [address], [place], [address]. tel:[phone] Office/Outpa tient Visit, Est [facility] , [address], [place], [address], [place] tel:[phone] [facility] , Follow Up of Seropositive rheumatoid arthritis (chief complaint) Rheumatoid arthritis with rheumatoid factor of multiple sites without organ or systems involvementA bnormal weight lossAge-rela sheryl osteoporosis without current pathological fractureOthe r supervisor intermediates (current) drug therapyLong term (current) use of systemic steroids 1 Mayra Olguin. [facility] [address], [place], [address], [place]. tel:[phone] Referring Provider: Sharif Phipps, [facility] [address], [place], [address]. tel:[phone] Office/Outpa tient Visit, Est [facility] , [address], [place], [address], [place] tel:[phone] [facility] , Follow Up of Seropositive rheumatoid arthritis (chief complaint) Rheumatoid arthritis with rheumatoid factor of multiple sites without organ or systems involvementO ther supervisor intermediates (current) drug therapyLong term (current) use of systemic steroids 0 Mayra Olguin. [facility] [address], [place], [address], [place]. tel:[phone] Referring Provider: Sharif Phipps, [facility] [address], [place], [address]. tel:[phone] Office/Outpa tient Visit, Est [facility] , [address], [place], [address], [place] tel:[phone] [facility] , Follow Up of seropositive rheumatoid arthritis (chief complaint) Rheu arthritis w rheu factor mult site w/o org/sys involvAge-re lated osteoporosis w/o current pathological fractureOthe r supervisor intermediates (current) drug therapyLong term (current) use of systemic steroids 0 Mayra Mcdonald [facility] [address], [place], [address], [place]. tel:[phone] Referring Provider: Sharif Phipps, [facility] [address], [place], [address]. tel:[phone] Office/Outpa tient Visit, Est [facility] , [address], [place], [address], [place] tel:[phone] [facility] , Follow Up of seropositive rheumatoid arthritis (chief complaint) Rheu arthritis w rheu factor mult site w/o org/sys involvPrimar y generalized (osteo)arthr itisAge-rela sheryl osteoporosis w/o current pathological fractureOthe r supervisor intermediates (current) drug therapyLong term (current) use of systemic steroids 0 Mayra Mcdonald [facility] [address], [place], [address], [place]. tel:[phone] Referring Provider: Sharif Phipps, [facility] [address], [place], [address]. tel:[phone] Phone E/M By Phys 11-20 Min [facility] , [address], [place], [address], [place] tel:[phone] Telehealth Follow Up of seropositive rheumatoid arthritis (chief complaint)os teoarthritis (chief complaint) [facility] w/o org/sys involvPrimar y generalized (osteo)arthr itisOther supervisor intermediates (current) drug therapy 0 Mayra Mcdonald [facility] [address], [place], [address], [place]. tel:[phone] Referring Provider: Sharif Phipps, [facility] [address], [place], [address]. tel:[phone] Office/Outpa tient Visit, Est [facility] , [address], [place], [address], [place] tel:[phone] [facility] , Follow Up of seropositive rheumatoid arthritis (chief complaint) Rheu arthritis w rheu factor mult site w/o org/sys involvCarpal tunnel syndrome, right upper limbAbnormal weight lossOther supervisor intermediates (current) drug therapyLong term (current) use of systemic steroids 0 Nunez Sharif. [facility] [address], [place], [address], [place]. tel:[phone] Referring Provider: Sharif Phipps, [facility] [address], [place], [address]. tel:[phone] Office/Outpa tient Visit, Est [facility] , [address], [place], [address], [place] tel:[phone] [facility] , Follow Up of seropositive rheumatoid arthritis (chief complaint) Rheu arthritis w rheu factor mult site w/o org/sys involvCarpal tunnel syndrome of right armPain in right shoulderOthe r usp (current) drug therapyLong term (current) use of systemic steroids Mayra Olguin. [facility] [address], [place], [address], [place]. tel:[phone] Referring Provider: Sharif Phipps, [facility] [address], [place], [address]. tel:[phone] Office/Outpa tient Visit, Est [facility] , [address], [place], [address], [place] tel:[phone] [facility] , Follow Up of seropositive rheumatoid arthritis (chief complaint) Rheu arthritis w rheu factor mult site w/o org/sys involvOther supervisor intermediates (current) drug therapyLong term (current) use of systemic steroids 9 Mayra Olguin. [facility] [address], [place], [address], [place]. tel:[phone] Referring Provider: Sharif Phipps, [facility] [address], [place], [address]. tel:[phone] Office/Outpa tient Visit, Est [facility] , [address], [place], [address], [place] tel:[phone] [facility] , Follow Up of seropositive rheumatoid arthritis (chief complaint) Rheu arthritis [facility]u factor [facility] w/o org/sys involvOther supervisor intermediates (current) drug therapyLong term (current) use of systemic steroids Mayra Olguin. [facility] [address], [place], [address], [place]. tel:[phone] Referring Provider: Sharif Phipps, [facility] [address], [place], [address]. tel:[phone] Office/Outpa tient Visit, Est [facility] , [address], [place], [address], [place] tel:[phone] [facility] , Follow Up of seropositive rheumatoid arthritis (chief complaint) Rheu arthritis w rheu factor [facility] w/o org/sys involvDry eye syndrome of bilateral lacrimal glandsXerost omiaNasal congestionPr uritusOsteop orosisOther supervisor intermediates (current) drug therapyLong term (current) use of systemic steroids Mayra Olguin. [facility] [address], [place], [address], [place]. tel:[phone] Referring Provider: Sharif Phipps, [facility] [address], [place], [address]. tel:[phone] Office/Outpa tient Visit, Est [facility] , [address], [place], [address], [place] tel:[phone] [facility] , Follow Up of seropositive rheumatoid arthritis (chief complaint) Rheu arthritis w rheu factor mult site w/o org/sys involvConjun ctivitisAge- related osteoporosis w/o current pathological fractureOthe r usp (current) drug therapyLong term (current) use of systemic steroids 9 Mayra Olguin. [facility] [address], [place], [address], [place]. [phone] Referring Provider: Sharif Phipps, [facility] [address], [place], [address]. tel:[phone] Office/Outpa tient Visit, Est [facility] , [address], [place], [address], [place] tel:[phone] [facility] , Follow Up of seropositive rheumatoid arthritis (chief complaint) Seropositive RA of multiple sites w/o organ involvementP ain in left kneeAge-rela sheryl osteoporosis w/o current pathological fractureOthe r usp (current) drug therapy Mayra Olguin. [facility] [address], [place], [address], [place]. tel:[phone] Referring Provider: Sharif Phipps, [facility] [address], [place], [address]. [phone] Office/Outpa tient Visit, New [facility] , [address], [place], [address], [place] [phone] [facility] , Inflammatory Polyarthropa thy (chief complaint) Inflammatory polyarthropa thyAge-relat ed osteoporosis w/o current pathological fracturePrim gutierrez generalized osteoarthrit isType 2 diabetes mellitus without complication sLong term use of systemic steroids 8 Nunez Sharif. [facility] [address], [place], [address], [place]. tel:[phone] Referring Provider: Sharif Phipps, [facility] [address], [place], [address]. tel:[phone] [facility] , [address], [place], [address], [place] tel:[phone] [facility] , No Information 8 Mayra Olguin. [facility] [address], [place], [address], [place]. tel:[phone] Family History Family Member Type Diagnosis Age At Onset Son Problem (finding) stroke Mother Problem (finding) Arthritis Immunizations Vaccine Date Status Comments COVID-19 Moderna administered Source: Oth er Provider COVID-19 Moderna administered Source: Oth er Provider COVID-19 Moderna administered Source: Oth er Provider Payers Payer name Insurance type Covered green party ID Authoriza tion(s) [facility] Medicare Advantage/[employer] [id number] Social History Type Description Quantity Date Captured [...] Additional Infor ty Although she feels w ell from an arthritis standpoint today, she has [...] or systems involvement This is managed at [facility]. For this and multiple other reasons I still would like to taper her off of the prednisone if possible although that has been difficult. Related to Age-related osteoporosis without current pathological fracture See discussion above regarding the prednisone. Related to skilled nursing (current) use of systemic steroids She will have routin e laboratories today for monitoring medications and disease. I am not receiving notes from her scarf gluer but she reports that she is having regular follow-up exams to monitor the Plaquenil.. Related to Other supervisor intermediates (current) drug therapy He initially had a [...] involvement This is managed at her primary [facility]. Related to Age-related osteoporosis without current pathological fracture See discussion above regarding the prednisone. Related to skilled nursing (current) use of systemic steroids She will have routin e laboratories today for monitoring medications and disease. I believe she had a Plaquenil eye exam in September although I do not have a report of that. Related to Other supervisor intermediates (current) drug therapy This is an ongoing i ssue but the patient reports improvement since having a skin graft there. The current dose of prednisone likely has very little role in her slow healing process. I feel the same about her current dose of methotrexate. Related to Cellulitis of left lower limb Although she had a s hort-lived flare involving fingers and wrists, she is doing better again now on her normal dose of prednisone. I did not recommend any change in that or the methotrexate or hydroxychloroquine. Related to Rheumatoid arthritis with rheumatoid factor of multiple sites without organ or systems involvement This is managed at her primary [facility]. Related to Age-related osteoporosis without current pathological fracture At this point, I do not feel like it is urgent to taper this very low-dose of prednisone despite her history of osteoporosis. She simply does not do well with lower dose. Related to intermediate designer (current) use of systemic steroids She will have routin e laboratories today for monitoring medications and disease. She has a Plaquenil eye exam scheduled next month. Related to Other usp (current) drug therapy She had an MRSA [...] do well with lower dose. Related to skilled nursing (current) use of systemic steroids She will have routin e laboratories today for monitoring medications and disease. Related to Other supervisor intermediates (current) drug therapy She still has an [...] multiple sites without organ or systems involvement Based on her follow- up bone densitometry [...] well with any lower dose. Related to skilled nursing (current) use of systemic steroids She will have routin e laboratories today for monitoring medications and disease. Related to Other usp (current) drug therapy She had a recent ivory lulitis involving the left lower leg. The actual ulcerated area is healed over with scab but is mill tender in the dry area. I recommended [...] without organ or systems involvement This is still somewh at limiting for her but overall stable. Related to Other low back pain Based on her follow- up bone densitometry [...] her prednisone dose as tolerated. Related to skilled nursing (current) use of systemic steroids She will have routin e laboratories today for monitoring medications and disease. Related to Other supervisor intermediates (current) drug therapy She may be a bit mor e [...] without organ or systems involvement This is not a major issue for [...] her prednisone dose as tolerated. Related to intermediate designer (current) use of systemic steroids She will have routin e laboratories today for monitoring medications and disease. Related to Other supervisor intermediates (current) drug therapy Her rheumatoid arthr itis is stable on [...] without organ or systems involvement This is not a major issue for [...] taper of her prednisone dose. Related to intermediate designer (current) use of systemic steroids She will have routin e laboratories today for monitoring medications and disease. Related to Other usp (current) drug therapy She is still doing v kimberlee well [...] without organ or systems involvement This is not a major issue for [...] taper of her prednisone dose. Related to intermediate designer (current) use of systemic steroids She will have routin e laboratories today for monitoring medications and disease. Related to Other usp (current) drug therapy See discussion above regarding very slow taper of her prednisone dose. Related to skilled nursing (current) use of systemic steroids She is doing well wi th her [...] therapy. Related to Other low back pain Her last bone densit y test was on 10/11/2020. At that time, her Fosamax dose was increased to 70 mg weekly. Related to Age-related osteoporosis without current pathological fracture She will have routin e laboratories today for monitoring medications and disease. Related to Other usp (current) drug therapy Her last bone densit y test was on 10/11/2020. At that time, her Fosamax dose was increased to 70 mg weekly. The point tenderness in her low back today makes me wonder about an insufficiency fracture in that area. I am going to check a plain x-ray of the low back. Related to Age-related osteoporosis without current pathological fracture See discussion above . Treatment of this back pain will depend on results of the x-ray. I will call her once I see that report. Related to Other low back pain She is currently doi ng well with [...] monitoring medications and disease. Related to Other usp (current) drug therapy She has done well wi th the prednisone taper from 2 mg to 1 mg daily. I recommended decreasing that further to 1 mg every other day for 1 month and then going off of it completely. She will stay on her same doses of methotrexate and Plaquenil. Related to Rheumatoid arthritis with rheumatoid factor of multiple sites without organ or systems involvement It is very unlikely that the hallucinations [...] monitoring medications and disease. Related to Other supervisor intermediates (current) drug therapy See discussion above regarding the prednisone. Related to skilled nursing (current) use of systemic steroids See discussion above regarding the prednisone. Related to intermediate designer (current) use of systemic steroids She will have routin e laboratories today for monitoring medications and disease. Her last Plaquenil eye exam was on approximately 06/15/2020. I did encourage her to proceed with the COVID-19 vaccine booster (Moderna) when she can. She will need to hold methotrexate for 1 week after the booster vaccine. Related to Other usp (current) drug therapy See discussion above . [...] monitoring medications and disease. Related to Other usp (current) drug therapy Although she is stil [...] monitoring medications and disease. Related to Other supervisor intermediates (current) drug therapy She is asymptomatic currently from her rheumatoid [...] appetite. Related to Abnormal weight loss She has a history of osteoporosis. I will try to minimize her prednisone dose. I am not sure when her last DEXA scan was. Related to Age-related osteoporosis without current pathological fracture She will have routin e laboratories today for monitoring medications and disease. Related to Other usp (current) drug therapy Her rheumatoid arthr itis [...] systems involvement See discussion above. Related to intermediate designer (current) use of systemic steroids Her rheumatoid arthr itis is well controlled still on her current regimen. She will stay on her same dose of methotrexate. I recommended a slow decrease the prednisone by the equivalent of one half milligram per month. A written schedule with alternating doses was provided to her. Related to Rheu arthritis w rheu factor mult site w/o org/[employer] involv As noted above, we w ill be tapering her prednisone again. Her last DEXA scan was in September 2018. This is managed primarily through her primary clinic. Related to Age-related osteoporosis w/o current pathological fracture She will have routin e laboratories today for monitoring medications and disease. Related to Other usp (current) drug therapy Her generalized oste oarthritis also seems reasonably well controlled right now. Again, I did not recommend any change in treatment for this. Related to Primary generalized (osteo)arthritis Her osteoporosis is managed through her primary clinic. Her last DEXA scan was in September 2018. Related to Age-related osteoporosis w/o current pathological fracture She will have routin e laboratories today for monitoring medications and disease. Related to Other supervisor intermediates (current) drug therapy She is doing well wi th her [...] mult site w/o org/sys involv See discussion above. Related to Primary generalized (osteo)arthritis I encouraged her to have monitoring laboratories done either at her local clinic or here within the next month or so. I emphasized the importance of this since we have increased her methotrexate dose since I last saw her. Related to Other usp (current) drug therapy It is difficult for me to say, via phone consultation, how much of her recent increase in symptoms was related to rheumatoid arthritis versus osteoarthritis. Nevertheless, she is feeling better again now on her combination of low-dose prednisone, still low-dose although increased methotrexate, and full dose Plaquenil along with a very low dose of [id number] ibuprofen. I did not recommend any change in her current regimen for now. Hopefully I can see her in person in 3 months. Related to Rheu arthritis w rheu factor mult site w/o org/sys involv See discussion above regarding tapering the prednisone. Related to skilled nursing (current) use of systemic steroids Her rheumatoid arthr itis has responded very [...] to Carpal tunnel syndrome, right upper limb She continues to los e weight. She weighed 170 pounds when I first saw her in December 2017. I will keep an eye and this but there are no other indicators to suggest a malignancy. This may simply be due to the fact that she has been able to taper her prednisone substantially since I first saw her. Related to Abnormal weight loss She will have routin e laboratories today for monitoring medications and disease. Related to Other usp (current) drug therapy See discussion above regarding the prednisone. Related to intermediate designer (current) use of systemic steroids She was [...] was in September 2018. Related to Other supervisor intermediates (current) drug therapy Although the prednis one [...] arthritis w rheu factor mult site w/o org/[employer] involv She has right carpal tunnel syndrome, [...] of calcium and vitamin D. Related to intermediate designer (current) use of systemic steroids If anything, [...] monitoring medications and disease. Related to Other supervisor intermediates (current) drug therapy She likely does have osteoporosis. She is scheduled for bone densitometry at the end of September. She plans to have results of that forwarded to me. Related to skilled nursing (current) use of systemic steroids She has [...] monitoring medications and disease. Related to Other usp (current) drug therapy She likely has osteo [...] monitoring medications and disease. Related to Other supervisor intermediates (current) drug therapy See discussion above regarding the prednisone. Related to skilled nursing (current) use of systemic steroids See discussion above . I recommended followup with her primary physician regarding this issue. It's possible that she might benefit from a saline nasal spray such as Izard [place]. Related to Nasal congestion If this is a symptom of dry skin, it should improve with the upcoming warmer weather. If that does not help, I would consider dermatology referral. Related to Pruritus I think it's likely that she is [...] eyes and dry mouth. These will include [id number] preservative-free artificial tears (I gave her specific brand names to try) and a trial of Biotene products for the mouth. Related to Dry eye syndrome of bilateral lacrimal glands See discussion above. Related to Xerostomia She is still doing w ell with [...] monitoring medications and disease. Related to Other usp (current) drug therapy See discussion above regarding further taper of her prednisone dose. Related to intermediate designer (current) use of systemic steroids She is doing very we ll with [...] I would like her to see an scarf gluer to make sure that she does not have any rheumatoid-related inflammatory eye disease as the cause of this recent redness. I don't think this is a side effect of the Plaquenil. Related to Conjunctivitis As was noted at the time of her initial visit, I suspect that she does have osteoporosis. We will discuss this in more detail the next time I see her. Related to Age-related osteoporosis w/o current pathological fracture See discussion above regarding the Plaquenil eye exam. Related to Other supervisor intermediates (current) drug therapy I think she does hav e seropositive [...] this. Related to Pain in left knee Again, I did not hav e a chance to discuss osteoporosis in any detail with her today. We will do so the next time I see her. Related to Age-related osteoporosis w/o current pathological fracture She has a diagnosis of type 2 diabetes but, as far as I can tell from her history, this has been fairly recent. She is not on treatment for this. I think it's unlikely that this has contributed to her musculoskeletal symptoms. Related to Type 2 diabetes mellitus without complications See discussion above regarding the prednisone. Related to skilled nursing use of systemic steroids She has significant kyphosis on exam and [...] Age-related osteoporosis without current pathological fracture assessment intermediate designer (current) use of syste yun steroids assessment Other supervisor intermediates (current) drug t herapy assessment Cellulitis of left lower limb De Mental Status Date Cognitive Assessment N/A Patient Care Teams Name Effective Dates (start - stop) Status Members No Information
--- OUTSIDE RECORDS SUMMARY | 2024-05-04 07:03 | XMS_ITS | Clinical Summary ---
Author Organization [facility] Address [place], [place] [address] Care Team Providers Care Internet Programmer Name Role Phone ClaudiaBeto Ivan FAUST Unavailable [phone] Sharif Nunez MD Unavailable [phone] Riley Camacho MD Unavailable [phone] Constanza Cardozo MD Primary Care Provider Inga Caballero MD Unavailable [phone] Allergies Active Allergy Reactions Criticality Noted [...] weekly d/t ckd - Endo E-consult at [place] 10/09/2020 with recommendation to continue fosamax for [...] She has hearing aids ([facility] in [place]). Obesity with body mass index 30 or greater 12/21 Arthritis, rheumatoid 08/17/2017 Overview (10/08/2021): RA Sees Dr. Nunez at [facility] [phone] fax [phone] Last Assessment & Plan: I went over [...] & Plan: She is here today because [facility] will not supply her with 6 catheters /day. They told her that medicare would only cover 4 catheters/day. She only has 10 catheters left and needs a supply. I contacted Verónica Escalante VEHIC[employer]PHOLSTER[employer] [place] [facility]. She sees her on a routine basis. She will provide Vanessa with enough catheters to get by until her order from [facility] is delivered. She will drive to [place] to slat pickler the catheters. I had sent Dr. Lopez's order and visit note to [facility] in [place]. Renay Renee will process the order and [...] Department Care Team Description 04/02/2024 2:00 PM GLOBAL SALES MANAGER Office Visit [facility] [address] [place] [address] Inga Caballero MD Consult (Hyperthyroidism ) 04/02/2024 Travel 03/06/2024 10:00 AM GLOBAL SALES MANAGER Office Visit [facility] [address] [place] [address] Constanza Cardozo MD Derm Problem (Follow up from 02/05, Yeast infection in the groin, cleared up ) 03/06/2024 Travel 03/04/2024 Telephone [facility] [address] [place] [address] Constanza Cardozo MD Medication Management (clotrimazole (LOTRIMIN) 1 % cream) 02/14/2024 1:30 PM GLOBAL SALES MANAGER - 02/14/2024 11:59 PM GLOBAL SALES MANAGER Hospital Encounter [facility] [address] [place] [address] Constanza Cardozo MD 02/14/2024 Travel 02/13/2024 1:22 PM GLOBAL SALES MANAGER - 02/13/2024 11:59 PM GLOBAL SALES MANAGER Hospital Encounter [facility] [address] [place] [address] Constanza Cardozo MD Subclinical hyperthyroidism 02/12/2024 10:45 AM GLOBAL SALES MANAGER Orders Only [address] [address] Lab, [facility] 02/12/2024 Travel 02/06/2024 11:35 AM GLOBAL SALES MANAGER Office Visit [facility] [address] [place] [address] Karmen Villanueva PA Vaginal Problem 02/06/2024 Travel 02/05/2024 Telephone [facility] [address] [place] [address] Meena Kumari MD Results (ultrasound) 02/02/2024 2:30 PM GLOBAL SALES MANAGER Ancillary Procedure [facility] [address] [place] [address] 02/02/2024 Telephone [facility] [address] [facility] [address] Constanza Cardozo MD Blood Pressure (Dropped off readings) 02/02/2024 Travel 02/02/2024 Telephone [facility] [address] [facility] [address] Constanza Cardozo MD Blood Pressure from Last [...] on file Legal Sex Female 3:06 PM GLOBAL SALES MANAGER Gender Identity Not on file Sexual Orientation Not on file Obstetrics History Last Filed Vital Signs Vital Sign Reading Time Taken Comments Blood Pressure 140/60 04/02/2024 2:06 PM GLOBAL SALES MANAGER Pulse 95 04/02/2024 2:02 PM GLOBAL SALES MANAGER Temperature 36.7 C (98 F) 02/06/2024 11:27 AM GLOBAL SALES MANAGER Respiratory Rate 16 05/01/2023 1:02 PM GLOBAL SALES MANAGER Oxygen Saturation 98% 04/02/2024 2:02 PM GLOBAL SALES MANAGER Inhaled Oxygen Concentration - - Weight 62.6 kg (138 lb) 04/02/2024 2:02 PM GLOBAL SALES MANAGER Height 157.4 cm (5' 1.97) 01/19/2024 2:21 PM CD T Body Mass Index 25.27 01/19/2024 2:21 PM CDT Plan of Treatment Upcoming Encounters Date Type Department Care Team (Late st Contact Info) Description 08/08/2024 3:00 PM CDT [facility] [place] [facility] [address] [facility] [place] [address] Eliseo Dias MD [address] [place] [address] 04/03/2025 2:00 PM GLOBAL SALES MANAGER Office Visit [facility] [address] [facility] [address] [place] [address] [place] [address] [facility] [place], [place] [id number] Health Maintenance Due Date Last Done Comments [...] Patient Record) Medical Devices Implanted Type Area Cryptographic Vulnerability Analyst Device Identifier Shelf Expiration Date Model / Serial / Lot Lead Bladder 28cm Interstim Tined 3mm Spacing - [id number] Implanted:Qty: 1 on 05/04/2016 by Cesar Groves MD at [facility] N/A: Sacrum [employer] 04/25/2020 3889-28# / / [id number] Stimulator 7.7mm 14cc Interstim Ii - [id number] Implanted:Qty: 1 on 05/11/2016 by Cesar Groves MD at [facility] N/A: Sacrum [employer] 10/07/2017 3058# / / [id number] Cmnt Bone 40g Simplex P Non Atb Mv - [id number] Implanted:Qty: 2 on 07/12/2017 by Ignacio Mead MD at [facility] Right: Knee [employer] 04/26/2018 6191-1-010 # / / [id number] Cmnt Bone 40g Simplex P Non Atb Mv - [id number] Implanted:Qty: 1 on 07/12/2017 by Ignacio Mead MD at [facility] Right: Knee [employer] 04/26/2018 6191-1-010 # / / [id number] F6218-U-978 - [id number] Implanted:Qty: 1 on 07/12/2017 by Ignacio Mead MD at [facility] Right: Knee [employer] 04/27/2022 5551-G-350 / / [id number] Description:Triathlon X3 Asy mmetric patella J7361-Y-627 - [id number] Implanted:Qty: 1 on 07/12/2017 by Ignacio Mead MD at [facility] Right: Knee [employer] 03/11/2022 5520-B-500 / / [id number] Description:Triathlon primar y tibial baseplate E3911-I-713 - [id number] Implanted:Qty: 1 on 07/12/2017 by Ignacio Mead MD at [facility] Right: Knee [employer] 05/21/2021 5510-F-502 / / [id number] Description:Triathlon crucia te retaining femoral M6111-E-837 - [id number] Implanted:Qty: 1 on 07/12/2017 by Ignacio Mead MD at [facility] Right: Knee 5531-G-50 9 / / [id number] Description:X3 triathlon CS INS Explanted Type Area Cryptographic Vulnerability Analyst Device Identifier Shelf Expiration Date Model / Serial / Lot Lead Intrdcr Bladder Interstim - [id number] Explanted:Qty: 1 on 05/04/2016 by Cesar Groves MD at [facility] N/A: Sacrum [employer] Therapy 05/27/2017 3550-18# / / [id number] Procedures Procedure Name Priority Date/Time Associated Diagnosis Comments NM THYROID UPTAKE W/BLOOD FLOW SNGLE MULT RUSH JI Routine 02/14/2024 2:55 PM GLOBAL SALES MANAGER Subclinical hyperthyroidism T3,TOTAL Routine 02/12/2024 10:40 AM GLOBAL SALES MANAGER Subclinical hyperthyroidism TSI (THYROID STIMULATING IMMUNOGLOBULIN) ([facility]) Routine 02/12/2024 10:40 AM GLOBAL SALES MANAGER Subclinical hyperthyroidism US THYROID/PARATHYROID Routine 02/02/2024 2:41 PM GLOBAL SALES MANAGER Thyroid nodule XR DXA BONE DENSITY 2 SITES AXIAL Routine 10/06/2022 10:59 AM CDT Age-related osteoporosis without current pathological fracture from Last 3 Months or Most Recently Relevant to Health Maintenance Results * NM THYROID UPTAKE W/BLOOD FLOW SNGLE MULT RUSH JI (02/14/2024 2:55 PM GLOBAL SALES MANAGER) Anatomical Region Laterality Modality THYROID Nuclear Medicine 02/14/2024 5:12 PM GLOBAL SALES MANAGER Impressions 02/14/2024 5:12 PM GLOBAL SALES MANAGER 1. Scintigraphically heterogeneous appearing right thyroid lobe which may reflect a dominant right thyroid lobe nodule reportedly biopsied and proven as benign. Please correlate with any pertinent pathology results. 2. Low normal 24 hour thyroid uptake of 10.2 percent. Dictated by Ignacio Ocasio MD @ 02/14/2024 5:12:41 PM (Electronically Signed) Narrative 02/14/2024 5:12 PM GLOBAL SALES MANAGER For Patients: As a result of the [...] (THYROID STIMULATING IMMUNOGLOBULIN) (QUEST) (02/12/2024 10:40 AM GLOBAL SALES MANAGER) TSI (THYROID STIMULATING IMMUNOGLOBULIN) <89 <140 % baseline [facility] [employer] [facility], Comment: Thyroid stimulating immunoglobulins (TSI) can [...] of this assay have been determined by [employer] [facility]. The modifications have not been cleared or approved by the FDA. This assay has been validated pursuant to the CLIA regulations and is used for clinical purposes. Blood BLOOD SPECIMEN / Unknown 02/12/2024 10:40 AM GLOBAL SALES MANAGER 02/12/2024 10:41 AM GLOBAL SALES MANAGER Constanza Cardozo MD SEND OUTS Final Resul t [email or web address] [facility] [address] [place] [address], [employer] [facility], [address] [place] [address] * T3,TOTAL (02/12/2024 10:40 AM GLOBAL SALES MANAGER) T3, TOTAL 99 76 - 181 ng/dL [facility] Blood BLOOD SPECIMEN / Unknown 02/12/2024 10:40 AM GLOBAL SALES MANAGER 02/12/2024 10:41 AM GLOBAL SALES MANAGER us Constanza Cardozo MD CHEMISTRY Final Resul t [email or web address] [facility] [address] [place] [address], [facility] [address] [place] [address] * US THYROID/PARATHYROID (02/02/2024 2:41 PM GLOBAL SALES MANAGER) Anatomical Region Laterality Modality THYROID Ultrasound 02/04/2024 7:13 AM GLOBAL SALES MANAGER Impressions 02/04/2024 7:13 AM GLOBAL SALES MANAGER No significant interval change in the 3.6 cm nodule within the right thyroid lobe. Dictated by Eliseo Gutierrez MD @ 02/04/2024 7:13:47 AM (Electronically Signed) Narrative 02/04/2024 7:13 AM GLOBAL SALES MANAGER For Patients: As a result of the [...] greater than 5 years. Na McLeran PA-C [facility] 10/11/2022 Narrative 10/11/2022 2:15 PM CDT For Patients: Results are automatically released to your [facility] ([employer]) account once available, in compliance with federal regulations. This means that you may see your results before your provider has had a chance to review them. Please allow 2-3 business days for your provider to comment on the results. XR DXA Bone Mineral Density (BMD) EXAM LOCATION: [facility] [address] [facility] [address] PATIENT NAME: Vanessa Andino DATE OF : [...] two scanners are made by the same occupational therapy department chair. PROCEDURE: Dual-energy x-ray absorptiometry performed with routine [...] to Health Maintenance Insurance [employer] MED[employer]ARE [employer]VANTAGE ([address] [address] MEDICARE PART A HB ONLY BLUE CROSS MATCH-E-BE-NASH-SHE-WISH BAND BLUE HB ONLY MEDICARE PART B HB ONLY BLUE CROSS MATCH-E-BE-NASH-SHE-WISH BAND BLUE MR PB ONLY Advance Directives Documents on File Type Date Recorded Patient Slps Expl anation POLST 07/14/2017 8:01 AM 01/12/2017 Power of Diesel Maintenance Technician 07/14/2017 7:57 AM 01/06 Healthcare Directive 07/14/2017 7:57 AM * Full Code (Latest Code Status on File) Date Activated Date Inactivated Comments 07/12/2017 7:10 AM 07/14/2017 4:57 PM * Full Code Date Activated Date Inactivated Comments 05/11/2016 10:33 AM 05/11/2016 7:12 PM * Full Code Date Activated Date Inactivated Comments 05/04/2016 7:01 AM 05/04/2016 3:07 PM Care Teams Internet Programmer Relationship Specialty Start Date End Date Constanza Cardozo MD [address] [place] [address] PCP - General Family Practice 08/25/22 Claudia, CHRISTIANNE Wang Electric Organ Assembler 07/13/17 Sharif Nunez MD [address] [facility] [address] [place] [address] Rheumatology 10/08/21 Riley Camacho MD [address] [facility] [place] [address] Surgery - Urology 08/25/22 [place] [address] [place] [address] Endocrinology Endocrinology 04/02/24
== END 2024-05-04 07:15 | disposition home or self-care (01) ==
LOC: ED 07:01
PROVIDERS: Emergency Provider Emergency Medicine; PCP Family Medicine
DX: K12.30 Oral mucositis (ulcerative), unspecified (principal)
CPT/HCPCS: 99282; 99283; A9270; J7512

== ENCOUNTER 2024-05-08 14:18 | Outpatient (CLI) | payer MEDICARE, BC, SELFPAY | END 2024-05-08 14:19 | disposition home or self-care (01) | LOC: WOUND 14:18 | PROVIDERS: PCP Family Medicine; Visit Provider Surgery | DX: I87.2 Venous insufficiency (chronic) (peripheral) (principal); L97.822 Non-pressure chronic ulcer of other part of left lower leg with fat layer exposed | CPT/HCPCS: 97597 ==

== ENCOUNTER 2024-05-13 09:18 | Outpatient (CLI) | payer MEDICARE, BC, SELFPAY | END 2024-05-13 09:19 | disposition home or self-care (01) | LOC: WOUND 05-14 09:54 | PROVIDERS: PCP Family Medicine; Visit Provider Nurse Practitioner Family | DX: I87.2 Venous insufficiency (chronic) (peripheral) (principal); L97.822 Non-pressure chronic ulcer of other part of left lower leg with fat layer exposed; L94.2 Calcinosis cutis | CPT/HCPCS: 97597 ==

== ENCOUNTER 2024-05-13 18:04 | Inpatient (IN) | payer MEDICARE, BC, SELFPAY ==
[2024-05-13] VITALS (24 sets, daily range): BP systolic 126–146; BP diastolic 43–74; PULSE 71–105; RESP 16–18; TEMP 36.8–37.1; O2SAT 95–100; BMI 25.7
--- OUTSIDE RECORDS SUMMARY | 2024-05-13 18:06 | XMS_ITS | Continuity of Care Document ---
Author Organization [facility] Address [address] [place] [address] Phone Care Team Providers Care Supervisor Porcelain Department Name Role Phone Sharif Nunez MD Unavailable [...] Protein Dna Antibody, Single Strand Dna Antibody, [place] Nuclear Antigen Antibodies CCP Antibody Lyme Disease [...] Est [facility] , [address], [place], [address], [place] tel:[phone] [facility] , Follow Up of Seropositive rheumatoid arthritis (chief complaint)Os teoporosis (chief complaint)Os teoarthritis (chief complaint) Rheumatoid arthritis with rheumatoid factor of multiple sites without organ or systems involvementA ge-related osteoporosis without current pathological fractureLong term (current) use of systemic steroidsOthe r termite technician (current) drug therapyCellu litis of left lower limb 4 Mayra Olguin. [facility] [address], [place], [address], [place]. tel:[phone] Referring Provider: Sharif Phipps, [facility] [address], [place], [address]. tel:[phone] Office/Outpa tient Visit, Est [facility] , [address], [place], [address], [place] tel:[phone] [facility] , Follow Up of Seropositive rheumatoid arthritis (chief complaint)Os teoporosis (chief complaint)Os teoarthritis (chief complaint) Rheumatoid arthritis with rheumatoid factor of multiple sites without organ or systems involvementA ge-related osteoporosis without current pathological fractureLong term (current) use of systemic steroidsOthe r shelter (current) drug therapyCellu litis of left lower limb 4 Mayra Olguin. [facility] [address], [place], [address], [place]. tel:[phone] Referring Provider: Sharif Phipps, [facility] [address], [place], [address]. tel:[phone] [facility] , [address], [place], [address], [place] tel:[phone] [facility] , No Information 4 Mayra Olguin. [facility] [address], [place], [address], [place]. tel:[phone] Office/Outpa tient Visit, Est [facility] , [address], [place], [address], [place] tel:[phone] [facility] , Follow Up of Seropositive rheumatoid arthritis (chief complaint)Os teoporosis (chief complaint)Os teoarthritis (chief complaint) Rheumatoid arthritis with rheumatoid factor of multiple sites without organ or systems involvementA ge-related osteoporosis without current pathological fractureLong term (current) use of systemic steroidsOthe r termite technician (current) drug therapyCellu litis of left lower limb 4 Mayra Olguin. [facility] [address], [place], [address], [place]. tel:[phone] Referring Provider: Sharif Phipps, [facility] [address], [place], [address]. [phone] Office/Outpa tient Visit, Est [facility] , [address], [place], [address], [place] tel:[phone] [facility] , Follow Up of Seropositive rheumatoid arthritis (chief complaint)Os teoporosis (chief complaint)Os teoarthritis (chief complaint) Rheumatoid arthritis with rheumatoid factor of multiple sites without organ or systems involvementA ge-related osteoporosis without current pathological fractureLong term (current) use of systemic steroidsOthe r shelter (current) drug therapyCellu litis of left lower limb 4 Mayra Olguin. [facility] [address], [place], [address], [place]. tel:[phone] Referring Provider: Sharif Phipps, [facility] [address], [place], [address]. tel:[phone] Office/Outpa tient Visit, Est [facility] , [address], [place], [address], [place] tel:[phone] [facility] , Follow Up of Seropositive rheumatoid arthritis (chief complaint)Os teoporosis (chief complaint)Os teoarthritis (chief complaint) Rheumatoid arthritis with rheumatoid factor of multiple sites without organ or systems involvementA ge-related osteoporosis without current pathological fractureLong term (current) use of systemic steroidsOthe r termite technician (current) drug therapyCellu litis of left lower limb 3 Mayra Olguin. [facility] [address], [place], [address], [place]. tel:[phone] Referring Provider: Sharif Phipps, [facility] [address], [place], [address]. tel:[phone] Office/Outpa tient Visit, Est [facility] , [address], [place], [address], [place] tel:[phone] [facility] , Follow Up of Seropositive rheumatoid arthritis (chief complaint)Os teoporosis (chief complaint)Os teoarthritis (chief complaint) Rheumatoid arthritis with rheumatoid factor of multiple sites without organ or systems involvementO ther low back painAge-rela sheryl osteoporosis without current pathological fractureLong term (current) use of systemic steroidsOthe r shelter (current) drug therapy 3 Mayra Olguin. [facility] [address], [place], [address], [place]. tel:[phone] Referring Provider: Sharif Phipps, [facility] [address], [place], [address]. tel:[phone] Office/Outpa tient Visit, Est [facility] , [address], [place], [address], [place] tel:[phone] [facility] , Follow Up of Seropositive rheumatoid arthritis (chief complaint)Os teoporosis (chief complaint)Os teoarthritis (chief complaint) Rheumatoid arthritis with rheumatoid factor of multiple sites without organ or systems involvementO ther low back painAge-rela sheryl osteoporosis without current pathological fractureLong term (current) use of systemic steroidsOthe r shelter (current) drug therapy 3 Mayra Olguin. [facility] [address], [place], [address], [place]. tel:[phone] Referring Provider: Sharif Phipps, [facility] [address], [place], [address]. tel:[phone] Office/Outpa tient Visit, Est [facility] , [address], [place], [address], [place] tel:[phone] [facility] , Follow Up of Seropositive rheumatoid arthritis (chief complaint)Os teoporosis (chief complaint)Os teoarthritis (chief complaint) Rheumatoid arthritis with rheumatoid factor of multiple sites without organ or systems involvementO ther low back painAge-rela sheryl osteoporosis without current pathological fractureLong term (current) use of systemic steroidsOthe r termite technician (current) drug therapy 3 Mayra Olguin. [facility] [address], [place], [address], [place]. tel:[phone] Referring Provider: Sharif Phipps, [facility] [address], [place], [address]. tel:[phone] Office/Outpa tient Visit, Est [facility] , [address], [place], [address], [place] tel:[phone] [facility] , Follow Up of Seropositive rheumatoid arthritis (chief complaint)Os teoporosis (chief complaint)Os teoarthritis (chief complaint) Rheumatoid arthritis with rheumatoid factor of multiple sites without organ or systems involvementO ther low back painAge-rela sheryl osteoporosis without current pathological fractureLong term (current) use of systemic steroidsOthe r shelter (current) drug therapy 2 Mayra Olguin. [facility] [address], [place], [address], [place]. tel:[phone] Referring Provider: Sharif Phipps, [facility] [address], [place], [address]. tel:[phone] Office/Outpa tient Visit, Est [facility] , [address], [place], [address], [place] tel:[phone] [facility] , Follow Up of Seropositive rheumatoid arthritis (chief complaint)Os teoporosis (chief complaint)Os teoarthritis (chief complaint) Rheumatoid arthritis with rheumatoid factor of multiple sites without organ or systems involvementO ther low back painAge-rela sheryl osteoporosis without current pathological fractureLong term (current) use of systemic steroidsOthe r termite technician (current) drug therapy 2 Mayra Olguin. [facility] [address], [place], [address], [place]. tel:[phone] Referring Provider: Sharif Phipps, [facility] [address], [place], [address]. tel:[phone] Office/Outpa tient Visit, Est [facility] , [address], [place], [address], [place] tel:[phone] [facility] , Follow Up of Seropositive rheumatoid arthritis (chief complaint)Os teoporosis (chief complaint)Os teoarthritis (chief complaint) Rheumatoid arthritis with rheumatoid factor of multiple sites without organ or systems involvementA ge-related osteoporosis without current pathological fractureLong term (current) use of systemic steroidsOthe r shelter (current) drug therapyOther low back pain Mar-0 3-202 2 Mayra Mcdonald [facility] [address], [place], [address], [place]. tel:[phone] Referring Provider: Sharif Phipps, [facility] [address], [place], [address]. tel:[phone] Office/Outpa tient Visit, Est [facility] , [address], [place], [address], [place] tel:[phone] [facility] , Follow Up of Seropositive rheumatoid arthritis (chief complaint)Os teoporosis (chief complaint)Os teoarthritis (chief complaint) Rheumatoid arthritis with rheumatoid factor of multiple sites without organ or systems involvementH allucination Eric-related osteoporosis without current pathological fractureOthe r shelter (current) drug therapyLong term (current) use of systemic steroids 1 Mayra Mcdonald [facility] [address], [place], [address], [place]. tel:[phone] Referring Provider: Sharif Phipps, [facility] [address], [place], [address]. tel:[phone] Office/Outpa tient Visit, Est [facility] , [address], [place], [address], [place] tel:[phone] [facility] , Follow Up of Seropositive rheumatoid arthritis (chief complaint)Os teoporosis (chief complaint)Os teoarthritis (chief complaint) Rheumatoid arthritis with rheumatoid factor of multiple sites without organ or systems involvementH allucination Eric-related osteoporosis without current pathological fractureOthe r shelter (current) drug therapyLong term (current) use of systemic steroids 1 Mayra Mcdonald [facility] [address], [place], [address], [place]. tel:[phone] Referring Provider: Sharif Phipps, [facility] [address], [place], [address]. tel:[phone] Office/Outpa tient Visit, Est [facility] , [address], [place], [address], [place] tel:[phone] [facility] , Follow Up of Seropositive rheumatoid arthritis (chief complaint)Os teoporosis (chief complaint) Rheumatoid arthritis with rheumatoid factor of multiple sites without organ or systems involvementO ther termite technician (current) drug therapyLong term (current) use of systemic steroidsAge- related osteoporosis without current pathological fracture 1 Mayra Olguin. [facility] [address], [place], [address], [place]. tel:[phone] Referring Provider: Sharif Phipps, [facility] [address], [place], [address]. tel:[phone] Office/Outpa tient Visit, Est [facility] , [address], [place], [address], [place] tel:[phone] [facility] , Follow Up of Seropositive rheumatoid arthritis (chief complaint) Rheumatoid arthritis with rheumatoid factor of multiple sites without organ or systems involvementA bnormal weight lossAge-rela sheryl osteoporosis without current pathological fractureOthe r termite technician (current) drug therapyLong term (current) use of systemic steroids 1 Mayra Olguin. [facility] [address], [place], [address], [place]. tel:[phone] Referring Provider: Sharif Phipps, [facility] [address], [place], [address]. tel:[phone] Office/Outpa tient Visit, Est [facility] , [address], [place], [address], [place] tel:[phone] [facility] , Follow Up of Seropositive rheumatoid arthritis (chief complaint) Rheumatoid arthritis with rheumatoid factor of multiple sites without organ or systems involvementO ther shelter (current) drug therapyLong term (current) use of systemic steroids 0 Mayra Olguin. [facility] [address], [place], [address], [place]. tel:[phone] Referring Provider: Sharif Phipps, [facility] [address], [place], [address]. tel:[phone] Office/Outpa tient Visit, Est [facility] , [address], [place], [address], [place] tel:[phone] [facility] , Follow Up of seropositive rheumatoid arthritis (chief complaint) Rheu arthritis w rheu factor mult site w/o org/sys involvAge-re lated osteoporosis w/o current pathological fractureOthe r shelter (current) drug therapyLong term (current) use of systemic steroids 0 Mayra Mcdonald [facility] [address], [place], [address], [place]. tel:[phone] Referring Provider: Sharif Phipps, [facility] [address], [place], [address]. tel:[phone] Office/Outpa tient Visit, Est [facility] , [address], [place], [address], [place] tel:[phone] [facility] , Follow Up of seropositive rheumatoid arthritis (chief complaint) Rheu arthritis w rheu factor mult site w/o org/sys involvPrimar y generalized (osteo)arthr itisAge-rela sheryl osteoporosis w/o current pathological fractureOthe r termite technician (current) drug therapyLong term (current) use of systemic steroids 0 Mayra Mcdonald [facility] [address], [place], [address], [place]. tel:[phone] Referring Provider: Sharif Phipps, [facility] [address], [place], [address]. tel:[phone] Phone E/M By Phys 11-20 Min [facility] , [address], [place], [address], [place] tel:[phone] Telehealth Follow Up of seropositive rheumatoid arthritis (chief complaint)os teoarthritis (chief complaint) Rheu arthritis w rheu factor [facility] w/o org/sys involvPrimar y generalized (osteo)arthr itisOther shelter (current) drug therapy 0 Mayra Mcdonald [facility] [address], [place], [address], [place]. tel:[phone] Referring Provider: Sharif Phipps, [facility] [address], [place], [address]. tel:[phone] Office/Outpa tient Visit, Est [facility] , [address], [place], [address], [place] tel:[phone] [facility] , Follow Up of seropositive rheumatoid arthritis (chief complaint) Rheu arthritis w rheu factor mult site w/o org/sys involvCarpal tunnel syndrome, right upper limbAbnormal weight lossOther shelter (current) drug therapyLong term (current) use of systemic steroids 0 Nunez Sharif. [facility] [address], [place], [address], [place]. tel:[phone] Referring Provider: Sharif Phipps, [facility] [address], [place], [address]. tel:[phone] Office/Outpa tient Visit, Est [facility] , [address], [place], [address], [place] tel:[phone] [facility] , Follow Up of seropositive rheumatoid arthritis (chief complaint) Rheu arthritis w rheu factor mult site w/o org/sys involvCarpal tunnel syndrome of right armPain in right shoulderOthe r termite technician (current) drug therapyLong term (current) use of systemic steroids Mayra Olguin. [facility] [address], [place], [address], [place]. tel:[phone] Referring Provider: Sharif Phipps, [facility] [address], [place], [address]. tel:[phone] Office/Outpa tient Visit, Est [facility] , [address], [place], [address], [place] tel:[phone] [facility] , Follow Up of seropositive rheumatoid arthritis (chief complaint) Rheu arthritis w rheu factor mult site w/o org/sys involvOther termite technician (current) drug therapyLong term (current) use of systemic steroids 9 Mayra Olguin. [facility] [address], [place], [address], [place]. tel:[phone] Referring Provider: Sharif Phipps, [facility] [address], [place], [address]. tel:[phone] Office/Outpa tient Visit, Est [facility] , [address], [place], [address], [place] tel:[phone] [facility] , Follow Up of seropositive rheumatoid arthritis (chief complaint) Rheu arthritis w rheu factor [facility] w/o org/sys involvOther shelter (current) drug therapyLong term (current) use of systemic steroids Mayra Olguin. [facility] [address], [place], [address], [place]. tel:[phone] Referring Provider: Sharif Phipps, [facility] [address], [place], [address]. tel:[phone] Office/Outpa tient Visit, Est [facility] , [address], [place], [address], [place] tel:[phone] [facility] , Follow Up of seropositive rheumatoid arthritis (chief complaint) Rheu arthritis w rheu factor [facility] w/o org/sys involvDry eye syndrome of bilateral lacrimal glandsXerost omiaNasal congestionPr uritusOsteop orosisOther shelter (current) drug therapyLong term (current) use of systemic steroids Mayra Olguin. [facility] [address], [place], [address], [place]. tel:[phone] Referring Provider: Sharif Phipps, [facility] [address], [place], [address]. tel:[phone] Office/Outpa tient Visit, Est [facility] , [address], [place], [address], [place] tel:[phone] [facility] , Follow Up of seropositive rheumatoid arthritis (chief complaint) Rheu arthritis w rheu factor mult site w/o org/sys involvConjun ctivitisAge- related osteoporosis w/o current pathological fractureOthe r termite technician (current) drug therapyLong term (current) use of systemic steroids 9 Mayra Olguin. [facility] [address], [place], [address], [place]. [phone] Referring Provider: Sharif Phipps, [facility] [address], [place], [address]. tel:[phone] Office/Outpa tient Visit, Est [facility] , [address], [place], [address], [place] tel:[phone] [facility] , Follow Up of seropositive rheumatoid arthritis (chief complaint) Seropositive RA of multiple sites w/o organ involvementP ain in left kneeAge-rela sheryl osteoporosis w/o current pathological fractureOthe r termite technician (current) drug therapy Mayra Olguin. [facility] [address], [place], [address], [place]. tel:[phone] Referring Provider: Sharif Phipps, [facility] [address], [place], [address]. [phone] Office/Outpa tient Visit, New [facility] , [address], [place], [address], [place] [phone] [facility] , Inflammatory Polyarthropa thy (chief complaint) Inflammatory polyarthropa thyAge-relat ed osteoporosis w/o current pathological fracturePrim gutierrez generalized osteoarthrit isType 2 diabetes mellitus without complication sLong term use of systemic steroids 8 Nunez Sharif. [facility] [address], [place], [address], [place]. tel:[phone] Referring Provider: Sharif Phipps, [facility] [address], [place], [address]. tel:[phone] [facility] , [address], [place], [address], [place] tel:[phone] [facility] , No Information 8 Mayra Olguin. [facility] [address], [place], [address], [place]. tel:[phone] Family History Family Member Type Diagnosis Age At Onset Son Problem (finding) stroke Mother Problem (finding) Arthritis Immunizations Vaccine Date Status Comments COVID-19 Moderna administered Source: Oth er Provider COVID-19 Moderna administered Source: Oth er Provider COVID-19 Moderna administered Source: Oth er Provider Payers Payer name Insurance type Covered alliance party ID Authoriza tion(s) [facility] Medicare Advantage/[employer] [id number] Social History Type Description Quantity Date Captured [...] multiple sites without organ or systems involvement He initially had a c ellulitis of the left lower leg that has been treated but she has a residual ulcer that required a skin graft. Apparently she is making progress with this since the skin graft but still requires regular follow-up at the wound clinic. Related to Cellulitis of left lower limb This is managed at [facility]. For this and multiple other reasons I still would like to taper her off of the prednisone if possible although that has been difficult. Related to Age-related osteoporosis without current pathological fracture See discussion above regarding the prednisone. 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 I am not receiving notes from her institutional research director but she reports that she is having regular follow-up exams to monitor the Plaquenil.. Related to Other shelter (current) drug therapy This is an ongoing i ssue but the patient reports improvement since having a skin graft there. The current dose of prednisone likely has very little role in her slow healing process. I feel the same about her current dose of methotrexate. Related to Cellulitis of left lower limb See discussion above regarding the prednisone. Related to half-way (current) use of systemic steroids She will have routin e laboratories today for monitoring medications and disease. I believe she had a Plaquenil eye exam in September although I do not have a report of that. Related to Other shelter (current) drug therapy As long as she remai ns on [...] This is managed at her primary c [facility]. Related to Age-related osteoporosis without current pathological fracture At this point, I do not feel like it is urgent to taper this very low-dose of prednisone despite her history of osteoporosis. She simply does not do well with lower dose. 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 She feels like it is healing again. This is followed at the wound care clinic regularly. Related to Cellulitis of left lower limb This is managed at her primary c [facility]. Related to Age-related osteoporosis without current pathological fracture She will have routin e laboratories today for monitoring medications and disease. She has a Plaquenil eye exam scheduled next month. Related to Other shelter (current) drug therapy Although she had a s hort-lived flare involving fingers and wrists, she is doing better again now on her normal dose of prednisone. I did not recommend any change in that or the methotrexate or hydroxychloroquine. Related to Rheumatoid arthritis with rheumatoid factor of multiple sites without organ or systems involvement She still has an ulc er there but the cellulitis has been treated effectively. The ulcer is decreasing in size with careful follow-up with the wound care clinic. Related to Cellulitis of left lower limb She will have routin e laboratories today for monitoring medications and disease. 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 Related to half-way (current) use of systemic steroids She will have routin e laboratories today for monitoring medications and disease. 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 I did not recommend any change in the methotrexate, Plaquenil, or prednisone. Related to Rheumatoid arthritis with rheumatoid factor of multiple sites without organ or systems involvement She had a recent ivory lulitis involving the left lower leg. The actual ulcerated area is healed over with scab but is chore tender in the dry area. I recommended [...] to Age-related osteoporosis without current pathological fracture This is still somewh at limiting for her but overall stable. Related to Other low back pain See discussion above regarding very slow taper of her prednisone dose as tolerated. 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 Related to Other shelter (current) drug therapy See discussion above regarding very slow taper of her prednisone dose as tolerated. Related to half-way (current) use of systemic steroids This is [...] taper of her prednisone dose. Related to half-way (current) use of systemic steroids Unfortunately, she h as had a traumatic [...] monitoring medications and disease. 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 Related to half-way (current) use of systemic steroids She will have routin e laboratories today for monitoring medications and disease. Related to Other shelter (current) drug therapy See discussion above regarding very slow taper of her prednisone dose. 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 Related to Other shelter (current) drug therapy See discussion above . [...] monitoring medications and disease. 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 Related to half-way (current) use of systemic steroids It is very unlikely that the hallucinations [...] Age-related osteoporosis without current pathological fracture She has done well wi th the [...] monitoring medications and disease. Related to Other shelter (current) drug therapy See discussion above regarding the prednisone. 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 Her last Plaquenil eye exam was on approximately 06/15/2020. I did encourage her to proceed with the COVID-19 vaccine booster (Moderna) when she can. She will need to hold methotrexate for 1 week after the booster vaccine. Related to Other shelter (current) drug therapy See discussion above . [...] monitoring medications and disease. Related to Other shelter (current) drug therapy She will be due for follow-up bone densitometry after her next appointment here. Related to Age-related osteoporosis without current pathological fracture Although she is stil l pain-free, she [...] monitoring medications and disease. Related to Other shelter (current) drug therapy She has a history [...] monitoring medications and disease. 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 Related to half-way (current) use of systemic steroids As noted above, we w ill be tapering her prednisone again. Her last DEXA scan was in September 2018. This is managed primarily through her primary clinic. Related to Age-related osteoporosis w/o current pathological fracture She will have routin e laboratories today for monitoring medications and disease. 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 She will stay on her same dose of methotrexate. I recommended a slow decrease the prednisone by the equivalent of one half milligram per month. A written schedule with alternating doses was provided to her. Related to Rheu arthritis w rheu factor mult site w/o Forever [employer]/Zscalers involv Her generalized oste oarthritis also seems reasonably [...] monitoring medications and disease. Related to Other shelter (current) drug therapy She is doing well [...] rheu factor mult site w/o org/sys involv I encouraged her to have monitoring laboratories done either at her local clinic or here within the next month or so. I emphasized the importance of this since we have increased her methotrexate dose since I last saw her. Related to Other shelter (current) drug therapy See discussion above. Related [...] along with a very low dose of brkr-gcy-kqhwrnz ibuprofen. I did not recommend any change in her current regimen for now. Hopefully I can see her in person in 3 months. Related to Rheu arthritis w rheu factor mult site w/o org/sys involv See discussion above regarding tapering the prednisone. Related to half-way (current) use of systemic steroids Her rheumatoid [...] Carpal tunnel syndrome, right upper limb She will have routin e laboratories today for monitoring medications and disease. Related to Other shelter (current) drug therapy She continues to los [...] saw her. Related to Abnormal weight loss See discussion above regarding the prednisone. 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 Her last Plaquenil eye exam was in September 2018. Related to Other shelter (current) drug therapy She was concerned th at she had a pinched nerve but I think she simply has a combination of arthritis in multiple joints of the right upper extremity including the shoulder. Hopefully the above changes in treatment will help with the shoulder pain as well. That already is improving some. I did show her Codman's exercises to do for the shoulder and recommended that she do these once or twice daily. Related to Pain in right shoulder Although the prednis one taper has gone [...] arthritis w rheu factor mult site w/o org/Zscalers involv She has right carpal tunnel syndrome, [...] calcium and vitamin D. 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 Related to Other shelter (current) drug therapy She likely does have osteoporosis. She is scheduled for bone densitometry at the end of September. She plans to have results of that forwarded to me. 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 If that does not help, I would consider dermatology referral. Related to Pruritus See discussion above . I recommended followup with her primary physician regarding this issue. It's possible that she might benefit from a saline nasal spray such as [place]. Related to Nasal congestion I think it's likely that she is [...] eyes and dry mouth. These will include bcsc-sfp-loqncdv preservative-free artificial tears (I gave her specific [...] w/o org/sys involv See discussion above regarding further taper of her prednisone dose. 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 Related to Other shelter (current) drug therapy She is doing very we ll with [...] I would like her to see an institutional research director to make sure that she does not [...] the Plaquenil eye exam. Related to Other shelter (current) drug therapy I think she does [...] above regarding the prednisone. 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
--- OUTSIDE RECORDS SUMMARY | 2024-05-13 18:06 | XMS_ITS | Clinical Summary ---
Author Organization [facility] Address [place], [place] [address] Care Team Providers Care Compensation Analyst Name Role Phone ClaudiaBeto Ivan FAUST Unavailable [phone] Sharif Nunez MD Unavailable [phone] Riley Camacho MD Unavailable [phone] Constanza Cardozo MD Primary Care Provider Inga Caballero MD Unavailable [phone] Allergies Active Allergy Reactions Criticality Noted Date Comments Clonidine Hallucinations 05/03/2018 Doxycycline Atopic Dermatitis Medium 05/06/2024 Significant lip blistering/ pain Leflunomide Hallucinations 12/21/2017 Lisinopril *Unknown 05/23/2018 Increased creatinine Methotrexate *Unknown 12/21/2017 Did not feel well Opioids - Morphine Analogues Vomiting 07/13/2022 Oxycodone Vomiting,*Unknown 08/11/2011 No reaction listed in [facility] Sulfa (Sulfonamide Antibiotics) *Unknown 12/03/2015 On clinic list No reaction listed in [place] Hydrocodone-Acetaminoph en Vomiting 10/25/2014 Medications CALCIUM CARBONATE/VITAMI [...] daily. 45 g 1 02/06/20 24 Active benzocaine, dental, (AMERICAINE; ANBESOL; ORAJEL) 20 % mucosal gelIndications:I nflammation of lips Apply 0.5 g topically to affected area(s) 4 times daily if needed for Tooth Pain (for lip pain). Apply a thin layer to affected areas inside mouth up to 4 times daily. 9 g 05/06/19 25 Active Active Problems Problem Noted Date Diagnosed Date White coat syndrome with hypertension 02/13/2023 Age-related osteoporosis wit hout current pathological fracture 10/11/2022 Overview (10/11/2022): - Fosamax started 10/16/2018 for osteopenia with elevated hip fracture risk. 35 mg weekly d/t ckd - Endo E-consult at [place] 10/09/2020 with recommendation to continue fosamax for [...] She has hearing aids ([facility] in [place]). Obesity with body mass index 30 or greater 12/21 Arthritis, rheumatoid 08/17/2017 Overview (10/08/2021): RA Sees Dr. Nunez at [facility] [phone] fax [phone] Last Assessment & Plan: I went over the results of her bone density test and LS x ray done 7/7/21 She was glad to hear she did [...] & Plan: She is here today because [employer] [employer] will not supply her with 6 catheters /day. They told her that medicare would only cover 4 catheters/day. She only has 10 catheters left and needs a supply. I contacted Verónica Escalante [employer] [place] [facility]. She sees her on a routine basis. She will provide Vanessa with enough catheters to get by until her order from [facility] is delivered. 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 I had sent Dr. Lopez's order and visit note to [facility] in [place]. Renay Renee will process the order and [...] Encounters Date Type Department Care Team Description 05/06/2024 1:25 PM MIXER OPERATOR RAW SALT Office Visit [facility] [address] [place] [address] Riley Marquis MD Follow Up (oral sores- mouthwash does not seem to help ) 05/06/2024 Travel 05/06/2024 Nurse Triage [facility] [address] [place] [address] Constanza Cardozo MD Mouth Problem 04/02/2024 2:00 PM MIXER OPERATOR RAW SALT Office Visit [facility] [address] [place] [address] [address] [place] [address] Inga Caballero MD Consult (Hyperthyroidism ) 04/02/2024 Travel 03/06/2024 10:00 AM MIXER OPERATOR RAW SALT Office Visit [facility] [address] [place] [address] Constanza Cardozo MD Derm Problem (Follow up from 02/05, Yeast infection in the groin, cleared up ) 03/06/2024 Travel 03/04/2024 Telephone [facility] [address] [place] [address] Constanza Cardozo MD Medication Management (clotrimazole (LOTRIMIN) 1 % cream) 02/14/2024 1:30 PM MIXER OPERATOR RAW SALT - 02/14/2024 11:59 PM MIXER OPERATOR RAW SALT Hospital Encounter [facility] [address] [place] [address] Constanza Cardozo MD 02/14/2024 Travel 02/13/2024 1:22 PM MIXER OPERATOR RAW SALT - 02/13/2024 11:59 PM MIXER OPERATOR RAW SALT Hospital Encounter [facility] [address] [facility] [place] [address] Constanza Cardozo MD Subclinical hyperthyroidism 02/12/2024 10:45 AM MIXER OPERATOR RAW SALT Orders Only [facility] [address] [place] [address] Lab, [place] [facility] 02/12/2024 Travel from Last 3 Months Immunizations Name [...] on file Legal Sex Female 3:06 PM MIXER OPERATOR RAW SALT Gender Identity Not on file Sexual Orientation Not on file Obstetrics History Last Filed Vital Signs Vital Sign Reading Time Taken Comments Blood Pressure 152/68 05/06/2024 1:31 PM MIXER OPERATOR RAW SALT Pulse 97 05/06/2024 1:25 PM MIXER OPERATOR RAW SALT Temperature 36.7 C (98 F) 02/06/2024 11:27 AM MIXER OPERATOR RAW SALT Respiratory Rate 16 05/01/2023 1:02 PM MIXER OPERATOR RAW SALT Oxygen Saturation 100% 05/06/2024 1:25 PM MIXER OPERATOR RAW SALT Inhaled Oxygen Concentration - - Weight 62.4 kg (137 lb 9.6 oz) 05/06/2024 1:25 P M MIXER OPERATOR RAW SALT Height 157.4 cm (5' 1.97) 01/19/2024 2:21 PM CD T Body Mass Index 25.19 01/19/2024 2:21 PM CDT Plan of Treatment Upcoming Encounters Date Type Department Care Team (Late st Contact Info) Description 08/08/2024 3:00 PM CDT Office Visit [address] [place] [address] Eliseo Dias MD [address] [place] [address] 04/03/2025 2:00 PM MIXER OPERATOR RAW SALT Office Visit [facility] [address] [facility] [address] [place], [place] [phone] [place] [address] [address] [place], [place] [id number] Health Maintenance Due Date Last Done Comments [...] Patient Record) Medical Devices Implanted Type Area Machine Deburrer Device Identifier Shelf Expiration Date Model / Serial / Lot Lead Bladder 28cm Interstim Tined 3mm Spacing - [id number] Implanted:Qty: 1 on 05/04/2016 by Cesar Groves MD at [facility] N/A: Sacrum [employer] Pain Therapy 04/25/2020 3889-28# / / [id number] Stimulator 7.7mm 14cc Interstim Ii - [id number] Implanted:Qty: 1 on 05/11/2016 by Cesar Groves MD at [facility] N/A: Sacrum [employer] Pain Therapy 10/07/2017 3058# / / [id number] Cmnt Bone 40g Simplex P Non Atb Mv - [id number] Implanted:Qty: 2 on 07/12/2017 by Ignacio Mead MD at [facility] Right: Knee [employer] 04/26/2018 6191-1-010 # / / [id number] Cmnt Bone 40g Simplex P Non Atb Mv - [id number] Implanted:Qty: 1 on 07/12/2017 by Ignacio Mead MD at [facility] Right: Knee [employer] 04/26/2018 6191-1-010 # / / [id number] C6137-G-045 - [id number] Implanted:Qty: 1 on 07/12/2017 by Ignacio Mead MD at [facility] Right: Knee [employer] 04/27/2022 5551-G-350 / / [id number] Description:Triathlon X3 Asy mmetric patella D6920-S-570 - [id number] Implanted:Qty: 1 on 07/12/2017 by Ignacio Mead MD at [facility] Right: Knee [employer] 03/11/2022 5520-B-500 / / [id number] Description:Triathlon primar y tibial baseplate U5627-O-233 - [id number] Implanted:Qty: 1 on 07/12/2017 by Ignacio Mead MD at [facility] Right: Knee [employer] 05/21/2021 5510-F-502 / / [id number] Description:Triathlon crucia te retaining femoral Q6064-S-896 - [id number] Implanted:Qty: 1 on 07/12/2017 by Ignacio Mead MD at [facility] Right: Knee 5531-G-50 9 / / [id number] Description:X3 triathlon CS INS Explanted Type Area Machine Deburrer Device Identifier Shelf Expiration Date Model / Serial / Lot Lead Intrdcr Bladder Interstim - [id number] Explanted:Qty: 1 on 05/04/2016 by Cesar Groves MD at [facility] N/A: Sacrum [employer] Pain Therapy 05/27/2017 3550-18# / / [id number] Procedures Procedure Name Priority Date/Time Associated Diagnosis Comments NM THYROID UPTAKE W/BLOOD FLOW SNGLE MULT RUSH JI Routine 02/14/2024 2:55 PM MIXER OPERATOR RAW SALT Subclinical hyperthyroidism T3,TOTAL Routine 02/12/2024 10:40 AM MIXER OPERATOR RAW SALT Subclinical hyperthyroidism TSI (THYROID STIMULATING IMMUNOGLOBULIN) ([facility]) Routine 02/12/2024 10:40 AM MIXER OPERATOR RAW SALT Subclinical hyperthyroidism XR DXA BONE DENSITY 2 SITES AXIAL Routine 10/06/2022 10:59 AM CDT Age-related osteoporosis without current pathological fracture from Last 3 Months or Most Recently Relevant to Health Maintenance Results * NM THYROID UPTAKE W/BLOOD FLOW SNGLE MULT RUSH JI (02/14/2024 2:55 PM MIXER OPERATOR RAW SALT) Anatomical Region Laterality Modality THYROID Nuclear Medicine 02/14/2024 5:12 PM MIXER OPERATOR RAW SALT Impressions 02/14/2024 5:12 PM MIXER OPERATOR RAW SALT 1. Scintigraphically heterogeneous appearing right thyroid lobe which may reflect a dominant right thyroid lobe nodule reportedly biopsied and proven as benign. Please correlate with any pertinent pathology results. 2. Low normal 24 hour thyroid uptake of 10.2 percent. Dictated by Ignacio Ocasio MD @ 02/14/2024 5:12:41 PM (Electronically Signed) Narrative 02/14/2024 5:12 PM MIXER OPERATOR RAW SALT For Patients: As a result of the [...] (THYROID STIMULATING IMMUNOGLOBULIN) (QUEST) (02/12/2024 10:40 AM MIXER OPERATOR RAW SALT) Pathologist [facility] TSI (THYROID STIMULATING IMMUNOGLOBULIN) <89 <140 % baseline [email or web address] [employer] [facility], Comment: Thyroid stimulating immunoglobulins (TSI) can [...] of this assay have been determined by [facility]. The modifications have not been cleared or approved by the FDA. This assay has been validated pursuant to the CLIA regulations and is used for clinical purposes. Blood BLOOD SPECIMEN / Unknown 02/12/2024 10:40 AM MIXER OPERATOR RAW SALT 02/12/2024 10:41 AM MIXER OPERATOR RAW SALT us Constanza Cardozo MD SEND OUTS Final Resul t [employer]Eloquii [facility] [address] [place] [address], [facility] [facility], [address] [place] [address] * T3,TOTAL (02/12/2024 10:40 AM MIXER OPERATOR RAW SALT) T3, TOTAL 99 76 - 181 ng/dL [facility] Knutson Blood BLOOD SPECIMEN / Unknown 02/12/2024 10:40 AM MIXER OPERATOR RAW SALT 02/12/2024 10:41 AM MIXER OPERATOR RAW SALT us Constanza Cardozo MD CHEMISTRY Final Resul t [employer] [facility] [address] [place] [address], [email or web address] [address] [place] [address] * (ABNORMAL) XR DXA BONE DENSITY 2 [...] 5 years. Na Valdivia PA-C [facility] 10/11/2022 Narrative 10/11/2022 2:15 PM CDT For Patients: Results are automatically released to your [email or web address]) account once available, in compliance with federal regulations. This means that you may see your results before your provider has had a chance to review them. Please allow 2-3 business days for your provider to comment on the results. XR DXA Bone Mineral Density (BMD) EXAM LOCATION: [address] [address] PATIENT NAME: Vnaessa Andino DATE OF : 1940 EXAM DATE: [...] two scanners are made by the same retail asset protection specialist. PROCEDURE: Dual-energy x-ray absorptiometry performed with [...] Most Recently Relevant to Health Maintenance Insurance [facility] [employer] MEDICARE ADVANTAGE MR MEDICARE PART A HB ONLY BLUE [place]OSS [place] BLUE HB ONLY MEDICARE PART B HB ONLY BLUE [place]OSS [place] BLUE MR PB ONLY Advance Directives Documents on File Type Date Recorded Patient Pharmacy Affairs Assistant Expl anation POLST 07/14/2017 8:01 AM 01/12/2017 Power of Hot Press Operator 07/14/2017 7:57 AM 01/06 Healthcare Directive 07/14/2017 7:57 AM * Full Code (Latest Code Status on File) Date Activated Date Inactivated Comments 07/12/2017 7:10 AM 07/14/2017 4:57 PM * Full Code Date Activated Date Inactivated Comments 05/11/2016 10:33 AM 05/11/2016 7:12 PM * Full Code Date Activated Date Inactivated Comments 05/04/2016 7:01 AM 05/04/2016 3:07 PM Care Teams Compensation Analyst Relationship Specialty Start Date End Date Constanza Cardozo MD [address] [place] [address] PCP - General Family Practice 08/25/22 Agency, [facility] Assistant Gm Of Content & Delivery 07/13/17 Sharif Nunez MD [address] [facility] [address] [place] [address] Rheumatology 10/08/21 Riley Camacho MD [address] [place] [address] [place] [address] Surgery - Urology 08/25/22 [place] [address] [place] [address] Endocrinology Endocrinology 04/02/24
--- NOTE | 2024-05-13 19:11 | ED.GENADULT ---
HPI - General Adult General Time Seen by Provider: 19:11 Date Seen: 05/13/24 Chief complaint: Nausea/Vomiting Stated complaint: Weak, vomiting Time Seen by Provider: 05/13/24 18:09 Source: patient, RN notes reviewed and old records reviewed Mode of arrival: ambulatory Limitations: no limitations History of Present Illness HPI narrative: This 83-year-old female is coming in with concern of ongoing nausea and inability to eat due to oral pain. She states her mouth is sore, primarily lower lip and lower portion of her mouth, denies any palatal involvement. She was vomiting last week but is no longer vomiting. It really hurts to eat or drink. She did have some diarrhea last night, nothing today. No fevers. She states she is really not eating or drinking, cannot cook right now, just does not feel well. She was on doxycycline for a wound infection, completed this and was seen last week in the ED, she was diagnosed with mucositis likely due to the doxycycline. She was given Magic mouthwash which she states she can not tolerate. No fevers and no abdominal pain. She notes no eye symptoms, I mucosa is fine. Having no vaginal sores or irritation. She does do self catheterization. Related Data Home Medications ?Medication ?Instructions ?Recorded ?Confirmed aspirin 81 mg tablet,delayed 81 mg PO DAILY 10/04/21 04/30/24 release (Adult Aspirin Regimen) multivitamin (Multiple Vitamins 1 tab PO QDAY 11/26/21 04/30/24 tablet) alendronate 70 mg tablet 70 mg PO SILVA 02/28/22 04/30/24 calcium 600 mg (as 1 cap PO DAILY 02/28/22 04/30/24 carbonate)-vitamin D3 12.5 mcg (500 unit) capsule (Calcium with Vit D3) furosemide 20 mg tablet 20 mg PO BID 02/28/22 04/30/24 hydroxychloroquine 200 mg tablet 200 mg PO BID 02/28/22 04/30/24 losartan 50 mg tablet 50 mg PO DAILY 02/28/22 04/30/24 sennosides 8.6 mg-docusate sodium 1 tab-cap PO DAILY 02/28/22 04/30/24 50 mg tablet (Laxative Stool Softener With Senna) acetaminophen 500 mg tablet 1,000 mg PO Q6H PRN 07/13/22 04/30/24 (Acetaminophen Extra Strength) methenamine hippurate 1 gram tablet 1 g PO BID 11/26/22 04/30/24 Previous Rx's ?Medication ?Instructions ?Recorded doxycycline hyclate 100 mg capsule 100 mg PO BID #20 caps 04/24/24 Magic Mouthwash 5 ml PO Q4H PRN #120 mL 05/04/24 (Lidocaine/Benadryl/Maalox) 120 mL suspension cephalexin 500 mg capsule 500 mg PO TID 7 days #21 caps 05/04/24 ondansetron 4 mg disintegrating 4 mg PO Q8H PRN nausea and 05/04/24 tablet vomiting #6 tabs prednisone 10 mg tablet 10 mg PO DIRECTED #20 tabs 05/04/24 Allergies Allergy/AdvReac Type Severity Reaction Status Date / Time clonidine Allergy Mild Hallucinati Verified 04/30/24 18:36 ng leflunomide Allergy Mild Hallucinati Verified 04/30/24 18:36 ng lisinopril Allergy Mild increased Verified 04/30/24 18:36 creatinine methotrexate Allergy Mild did not Verified 04/30/24 18:36 feel well hydrocodone Allergy Unknown Vomiting Verified 04/30/24 18:36 oxycodone Allergy Unknown Verified 04/30/24 18:36 Opioids - Morphine Analogues Allergy Verified 04/30/24 18:36 Sulfa (Sulfonamide Allergy Verified 04/30/24 18:36 Antibiotics) surgical glue Allergy Uncoded 04/30/24 18:36 Review of Systems Status of ROS: Reports: 6 or more systems reviewed and unremarkable except as noted in History and below [facility] Medical History Lower extremity edema ?R60.0 - Localized edema (ICD-10) Pneumonia ?J18.9 - Pneumonia, unspecified organism (ICD-10) Weakness ?R53.1 - Weakness (ICD-10) Sepsis ?A41.9 - Sepsis, unspecified organism (ICD-10) Gram-negative bacteremia ?R78.81 - Bacteremia (ICD-10) Lung nodules ?R91.8 - Other nonspecific abnormal finding of lung field (ICD-10) Sensorineural hearing loss, bilateral ?H90.3 - Sensorineural hearing loss, bilateral (ICD-10) Prediabetes ?R73.03 - Prediabetes (ICD-10) Presence of neurostimulator ?Z96.82 - Presence of neurostimulator (ICD-10) Sacral nerve stimulator present ?Z96.82 - Presence of neurostimulator (ICD-10) Recurrent urinary tract infection ?N39.0 - Urinary tract infection, site not specified (ICD-10) Hyperlipidemia ?E78.5 - Hyperlipidemia, unspecified (ICD-10) History of DVT (deep vein thrombosis) ?Z86.718 - Personal history of other venous thrombosis and embolism (ICD-10) Stage 3 chronic kidney disease ?N18.30 - Chronic kidney disease, stage 3 unspecified (ICD-10) Rheumatoid arthritis ?M06.9 - Rheumatoid arthritis, unspecified (ICD-10) Back problem ?M53.9 - Dorsopathy, unspecified (ICD-10) High blood pressure ?I10 - Essential (primary) hypertension (ICD-10) Osteoarthritis ?M19.90 - Unspecified osteoarthritis, unspecified site (ICD-10) Surgical History S/P ORIF (open reduction internal fixation) fracture ?Z98.890 - Other specified postprocedural states (ICD-10) ?Z87.81 - Personal history of (healed) traumatic fracture (ICD-10) S/P total knee arthroplasty ?Z96.659 - Presence of unspecified artificial knee joint (ICD-10) H/O hysterectomy with oophorectomy History of cholecystectomy ?Z90.49 - Acquired absence of other specified parts of digestive tract (ICD-10) Family History Mother Stroke Rheumatoid arthritis Brother Diabetes Coronary artery disease Father Pancreatic cancer Social History Narrative: patient lives independently with her significant other, Cirilo Chambers. She has a niece, Peg. 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 Code status is full. Highest level of school completed/degree received: some college, no degree Smoking Status: Never smoker Do you use any of these nicotine containing products: None Second hand tobacco smoke exposure: No How often do you have a drink containing alcohol: never How often do you have six or more drinks on one occasion: Never AUDIT-C Alcohol total score: 0 Non-prescribed substance use: denies use Caffeine: Yes (1/2 cup of coffee a day) Gender Identity: female Are you using contraception or practicing any form of control: No service: No Exam Const: Vital Signs, click to edit/add: Vital Signs - 24 hr 05/13/24 18:24 05/13/24 19:39 05/13/24 19:45 Temperature 98.2 F Pulse Rate 77 77 Pulse Rate [Pulse Oximeter] 86 Respiratory Rate 16 Blood Pressure Blood Pressure [Ri ght Upper Arm] 126/67 Pulse Oximetry 97 98 98 Oxygen Delivery Me thod Room Air 05/13/24 19:47 05/13/24 19:48 05/13/24 20:00 Temperature Pulse Rate 78 76 72 Pulse Rate [Pulse Oximeter] Respiratory Rate Blood Pressure 132/49 L Blood Pressure [Ri ght Upper Arm] Pulse Oximetry 98 98 97 Oxygen Delivery Me thod 05/13/24 20:01 05/13/24 20:15 05/13/24 20:30 Temperature Pulse Rate 73 75 75 Pulse Rate [Pulse Oximeter] Respiratory Rate Blood Pressure 132/49 L Blood Pressure [Ri ght Upper Arm] Pulse Oximetry 97 97 96 Oxygen Delivery Me thod 05/13/24 20:32 05/13/24 20:33 05/13/24 20:45 Temperature Pulse Rate 73 75 77 Pulse Rate [Pulse Oximeter] Respiratory Rate Blood Pressure 133/52 L Blood Pressure [Ri ght Upper Arm] Pulse Oximetry 96 96 98 Oxygen Delivery Me thod 05/13/24 21:00 05/13/24 21:01 05/13/24 21:15 Temperature Pulse Rate 79 79 85 Pulse Rate [Pulse Oximeter] Respiratory Rate Blood Pressure 144/52 H Blood Pressure [Ri ght Upper Arm] Pulse Oximetry 97 96 95 Oxygen Delivery Me thod 05/13/24 21:30 05/13/24 21:31 Temperature Pulse Rate 105 H 105 H Pulse Rate [Pulse Oximeter] Respiratory Rate Blood Pressure 135/74 Blood Pressure [Ri ght Upper Arm] Pulse Oximetry 96 96 Oxygen Delivery Me thod This 83-year-old female is alert, interactive, no apparent distress. She has sclera that are clear, oral mucosa is normal, no periorbital swelling or erythema. Conjugate gaze. Her speech is normal but you can see cracking along the inner border of her lower lip, some dried blood there. The superficial mucosa is gone in there is erosion that basically involves the whole inner lower lip, dentition seem to be largely uninvolved,hard palate seems to be uninvolved, posterior pharynx uninvolved. The mucosal surfaces of ulceration extend back on the lower portion of the mouth on both sides, right looks potentially little worse than left. She maybe has some erythema behind upper central teeth, lower gums along buccal reflection definitely has some involvement. Neck is supple, no adenopathy or masses. Lungs are clear, good air entry, no wheezing or crackles. CV regular rate and rhythm, no murmur. Abdomen is soft, nontender, nondistended, no organomegaly noted. Skin without any rashes, no erythema noted. Documenting provider has reviewed patient's vital signs: yes Course Course ED Course: Will establish an IV, obtain labs on this patient. Given that she has nausea and GI symptoms, do wonder about other systemic side effects or other etiology as the cause for her issues. I will need to review mucositis to see if there is other possible treatment etiologies that I may have available here. Would I am aware of is largely supportive cares including the magic mouth wash which she states she can not tolerate. I do not think she requires any imaging at this time. Reevaluation(s) Time of Reevaluation #1: 19:49 Reevaluation #1: Patient's hemoglobin has been reported at 7.4. Her platelet count is low as well at 74,000, white blood count 2980. On January 18, hemoglobin was 11.7 in her outside records, white blood cell count was 9400 and platelets were 386,000. Will add on a peripheral smear and iron studies. Doubt she has iron deficiency anemia, suspect potential bone marrow process that even could be medication induced. She is not neutropenic at this time with neutrophils at 1900. I have consented patient on 1 unit packed red blood cells. Consultations Consultation #1: Have consulted our hospitalist Dr. Capellan. I am not sure if this patient is able to stay here, will have him consider her clinical presentation. He is down here to see her, we have reviewed her mucositis, she is quite uncomfortable. At this time, will give her low-dose fentanyl to see if this will give her some comfort while we try to sort through this. We will make sure she is on pulse oximetry with the IV narcotic. Dr. Capellan does agree that patient should be hospitalized. Her mucositis is certainly not life-threatening at this point but she needs supportive cares at this time and supportive IV treatment. Her bone marrow merits watching at this point, pharmacy consultation to see if there is potential for medication effects. Neither of us feel she needs transfer at this time but conceivably may need this if worsening. We both feel it is appropriate to start hospitalization here. Time: 21:01 Vital Signs Vital signs: Initial Vital Signs Temperature 98.2 F 05/13/24 18:24 Temperature Source Temporal Artery Scan 05/13/24 18:24 Pulse Rate 86 05/13/24 18:24 Respiratory Rate 16 05/13/24 18:24 Blood Pressure 126/67 05/13/24 18:24 Blood Pressure Mean 86 05/13/24 18:24 Pulse Oximetry 97 05/13/24 18:24 Oxygen Delivery Method Room Air 05/13/24 18:24 Vital Signs Temperature 98.2 F 05/13/24 18:24 Pulse Rate 86 05/13/24 18:24 Respiratory Rate 16 05/13/24 18:24 Blood Pressure 126/67 05/13/24 18:24 Pulse Oximetry 97 05/13/24 18:24 Oxygen Delivery Method Room Air 05/13/24 18:24 Temperature 98.2 F 05/13/24 18:24 Pulse Rate 105 H 05/13/24 21:31 Respiratory Rate 16 05/13/24 18:24 Blood Pressure 135/74 05/13/24 21:31 Pulse Oximetry 96 05/13/24 21:31 Oxygen Delivery Method Room Air 05/13/24 18:24 Medications Administered Medications: Discontinued Medications Generic Name Dose Route Start Last Admin Trade Name Freq PRN Reason Stop Dose Admin Fentanyl 25 mcg 05/13/24 21:02 05/13/24 21:11 Fentanyl 100 Mcg/2 Ml Inj IVP 05/13/24 21:03 25 mcg ONCE ONE Administration Sodium Chloride 500 mls @ 500 mls/hr 05/13/24 19:24 05/13/24 19:54 0.9 % Sodium Chloride 500 Ml IV 05/13/24 20:23 500 mls/hr .Q1H ONE Administration Medical Decision Making Lab Data Lab results reviewed: Yes I reviewed the patient's lab results Labs: Lab Results 05/13/24 05/13/24 05/13/24 Range/Units 19:30 19:44 19:50 WBC 2.98 L (4.50-11.00) K/uL RBC 2.32 L (4.00-5.20) m/uL Hgb 7.4 L* (12.0-16.0) gm/dL Hct 22.5 L (33.0-51.0) % MCV 97 (80-100) fL MCH 32 (26-34) pg MCHC 33 (32-36) gm/dL RDW Coeff of Randa 23.2 H (11.5-15.5) % Plt Count 74 L (140-440) K/uL Neut % (Auto) 63.6 (42.0-72.0) % Lymph % (Auto) 29.5 (20-44) % [place] % (Auto) 1.3 (0.0-11.0) % Eos % (Auto) 5.0 (0.0-7.0) % Baso % (Auto) 0.3 (0.0-3.0) % Neut # (Auto) 1.90 (1.7-7.0) K/uL Lymph # (Auto) 0.90 (0.90-2.90) K/uL [place] # (Auto) 0.00 (0.00-0.90) K/UL Eos # (Auto) 0.10 (0.00-0.50) K/uL Baso # (Auto) 0.00 (0.00-0.30) K/uL Abs Immat Gran (auto) 0.00 (0.00-0.30) K/uL Imm/Tot Granulo (auto) 0.3 % Diff Slide Review Acceptable Review (Acceptable) Absolute Retic 0.01 L (0.03-0.08) # Percent Retic 0.5 (0.5-2.0) % Immature Retic Fraction 15.3 (3.0-15.9) % Retic Hgb Equivalent 41.1 H (29.0-35.0) pg Sodium 128 L (135-149) mmol/L Potassium 4.3 (3.6-5.1) mmol/L Chloride 98 (96-114) mmol/L Carbon Dioxide 24 (20-32) mmol/L Anion Gap 6 L (7-15) mEq/L BUN 32 H (7-30) mg/dL Creatinine 0.9 (0.5-1.5) mg/dL Estimated GFR 63 ml/min Glucose 126 H (60-115) mg/dL Lactate 0.8 (0.5-1.9) mmol/L Calcium 7.9 L (8.4-10.6) mg/dL Iron 72 (37-170) ug/dL TIBC 203 L (265-497) ug/dL % Saturation 35 (20-50) % Ferritin 630.0 H (11.1-264.0) ng/mL Total Bilirubin 0.7 (0.1-1.5) mg/dL Direct Bilirubin 0.2 (0.0-0.5) mg/dL AST 53 H (12-35) U/L ALT 144 H (4-35) U/L Alkaline Phosphatase 77 (40-150) U/L C-Reactive Protein 4.2 H (0.5-1.0) mg/dL Total Protein 6.0 (6.0-8.3) g/dL Albumin 3.5 (3.3-5.0) g/dL Lab Acknowledgement Test Added Blood Type A Negative Antibody Screen NEGATIVE Crossmatch ([facility]) See Detail Discharge Plan Discharge Clinical Impression: Acute mucositis, Acquired pancytopenia Patient Disposition: Admitted As Observation
[2024-05-13 19:37] LABS: Lactate* 0.8 mmol/L (0.5-1.9)
[2024-05-13 19:38] LABS: Basophils Percent Auto 0.3 % (0.0-3.0); Hematocrit 22.5 % (33.0-51.0); Immature Granulocytes Pct Auto 0.3 %; Lymphocytes Percent Auto 29.5 % (20-44); Mean Corpuscular HGB Conc 33 gm/dL (32-36); Mean Corpuscular Hemoglobin 32 pg (26-34); Mean Corpuscular Volume 97 fL (80-100); Monocytes Percent Auto 1.3 % (0.0-11.0); Neutrophils Percent Auto 63.6 % (42.0-72.0); Platelet Count* 74 K/uL (140-440); RDW Coefficient of Variation % 23.2 % (11.5-15.5); Red Blood Count 2.32 m/uL (4.00-5.20); White Blood Count* 2.98 K/uL (4.50-11.00)
[2024-05-13 19:42] LABS: Hemoglobin* 7.4 gm/dL (12.0-16.0); Slide Review Reflex Yes
[2024-05-13 19:54] LABS: Albumin* 3.5 g/dL (3.3-5.0); Chloride* 98 mmol/L (96-114); Sodium* 128 mmol/L (135-149)
[2024-05-13] MEDS: 0.9 % SODIUM CHLORIDE 500 ML 500 ML IV (19:54)
[2024-05-13 19:55] LABS: Potassium* 4.3 mmol/L (3.6-5.1)
[2024-05-13 19:57] LABS: Alanine Aminotransferase* 144 U/L (4-35); Alkaline Phosphatase* 77 U/L (40-150); Anion Gap 6 mEq/L (7-15); Aspartate Amino Transferase* 53 U/L (12-35); Bilirubin Direct* 0.2 mg/dL (0.0-0.5); Bilirubin Total* 0.7 mg/dL (0.1-1.5); Blood Urea Nitrogen* 32 mg/dL (7-30); Carbon Dioxide* 24 mmol/L (20-32); Creatinine* 0.9 mg/dL (0.5-1.5); Estimated Glomerular Filt Rate 63 ml/min; Glucose* 126 mg/dL (60-115)
[2024-05-13 19:58] LABS: Calcium* 7.9 mg/dL (8.4-10.6)
[2024-05-13 20:00] LABS: C Reactive Protein* 4.2 mg/dL (0.5-1.0)
[2024-05-13 20:34] LABS: Slide Review Acceptable Review (Acceptable)
[2024-05-13 20:35] LABS: Iron* 72 ug/dL (37-170)
[2024-05-13 20:40] LABS: Immature Reticulocyte Fraction 15.3 % (3.0-15.9); Reticulocyte Hemoglobin Equivi 41.1 pg (29.0-35.0); Reticulocyte Percent 0.5 % (0.5-2.0); Reticulocytes Absolute 0.01 # (0.03-0.08)
[2024-05-13 20:44] LABS: Percent Iron Saturation 35 % (20-50); Total Iron Binding Capacity 203 ug/dL (265-497)
[2024-05-13] MEDS: fentaNYL 100 MCG/2 ML inj 25 MCG IVP (21:11)
--- NOTE | 2024-05-13 21:43 | P.IMHP_ITS ---
Hospitalist- H&P: HPI History of Present Illness Date Seen: 05/13/24 Chief complaint: Weak, vomiting Narrative: Vanessa Andino is a 83 year old woman presents to the emergency department with her fiance for evaluation of oropharyngeal pain. She has had sores on the inside of her lower lip, on the inside of her cheeks, and in her posterior pharynx for several days. Had a few episodes of vomiting last week but none this week. Complains of pain at all times worse with trying to eat or drink. Has had decreased oral intake. Completed a course of doxycycline for wound infection last week. Was assessed in the emergency department at that time and thought to have mucositis. Oral magic mouthwash was ordered. She is not able to use this now, hard for to tolerate. Was not treated for oral candidiasis. Does not have vaginal or anal sores or irritation. No diarrhea today but did have some loose stools yesterday. Does perform self straight catheterizations to empty her bladder. History of recurrent UTIs for which she takes methenamine hippurate 1 g twice daily for UTI prevention prophylaxis. Additionally she takes hydroxychloroquine for rheumatoid arthritis. States her rheumatoid arthritis symptoms are well controlled. Previously took prednisone for number of years which she has weaned off of and has been off of now for the better part of a month. Takes alendronate once a week but does not have esophageal type pain or discomfort. Her symptoms are primarily localized in the oropharyngeal area. Review of Systems Status of ROS: Reports: 6 or more systems reviewed and unremarkable except as noted in History and below Narrative: Denies new or different myalgias or arthralgias. Denies fevers, rigors, genny phoresis. No recent travel. History of MRSA wound infection in July of 2023. Most recent wound culture 04/03/2024 and grew out a small amount of coagulase negative Staph. Denies cardiac, respiratory symptoms. No recent blood loss. [facility] Medical History (Updated 05/13/24 @ 22:29 by René Capellan MD) Lower extremity edema ?R60.0 - Localized edema (ICD-10) Pneumonia ?J18.9 - Pneumonia, unspecified organism (ICD-10) Weakness ?R53.1 - Weakness (ICD-10) Sepsis ?A41.9 - Sepsis, unspecified organism (ICD-10) Gram-negative bacteremia ?R78.81 - Bacteremia (ICD-10) Lung nodules ?R91.8 - Other nonspecific abnormal finding of lung field (ICD-10) Sensorineural hearing loss, bilateral ?H90.3 - Sensorineural hearing loss, bilateral (ICD-10) Prediabetes ?R73.03 - Prediabetes (ICD-10) Presence of neurostimulator ?Z96.82 - Presence of neurostimulator (ICD-10) Sacral nerve stimulator present ?Z96.82 - Presence of neurostimulator (ICD-10) Recurrent urinary tract infection ?N39.0 - Urinary tract infection, site not specified (ICD-10) Hyperlipidemia ?E78.5 - Hyperlipidemia, unspecified (ICD-10) History of DVT (deep vein thrombosis) ?Z86.718 - Personal history of other venous thrombosis and embolism (ICD-10) Stage 3 chronic kidney disease ?N18.30 - Chronic kidney disease, stage 3 unspecified (ICD-10) Rheumatoid arthritis ?M06.9 - Rheumatoid arthritis, unspecified (ICD-10) Back problem ?M53.9 - Dorsopathy, unspecified (ICD-10) High blood pressure ?I10 - Essential (primary) hypertension (ICD-10) Osteoarthritis ?M19.90 - Unspecified osteoarthritis, unspecified site (ICD-10) Surgical History S/P ORIF (open reduction internal fixation) fracture ?Z98.890 - Other specified postprocedural states (ICD-10) ?Z87.81 - Personal history of (healed) traumatic fracture (ICD-10) S/P total knee arthroplasty ?Z96.659 - Presence of unspecified artificial knee joint (ICD-10) H/O hysterectomy with oophorectomy History of cholecystectomy ?Z90.49 - Acquired absence of other specified parts of digestive tract (ICD- 10) Family History Mother Stroke Rheumatoid arthritis Brother Diabetes Coronary artery disease Father Pancreatic cancer Social History Narrative: patient lives independently with her significant other, Cirilo Chambers. She has a niece, Peg. Those 2 would be healthcare power of civil litigation attorney. Code status is full. Highest level of school completed/degree received: some college, no degree Smoking Status: Never smoker Do you use any of these nicotine containing products: None Second hand tobacco smoke exposure: No How often do you have a drink containing alcohol: never How often do you have six or more drinks on one occasion: Never AUDIT-C Alcohol total score: 0 Non-prescribed substance use: denies use Caffeine: Yes (1/2 cup of coffee a day) Gender Identity: female Are you using contraception or practicing any form of control: No service: No Meds Home Medications and Allergies Home Medications ?Medication ?Instructions ?Recorded ?Confirmed ?Type aspirin 81 mg tablet,delayed 81 mg PO DAILY 10/04/21 04/30/24 History release (Adult Aspirin Regimen) multivitamin (Multiple Vitamins 1 tab PO QDAY 11/26/21 04/30/24 History tablet) alendronate 70 mg tablet 70 mg PO SILVA 02/28/22 04/30/24 History calcium 600 mg (as 1 cap PO DAILY 02/28/22 04/30/24 History carbonate)-vitamin D3 12.5 mcg (500 unit) capsule (Calcium with Vit D3) furosemide 20 mg tablet 20 mg PO BID 02/28/22 04/30/24 History hydroxychloroquine 200 mg tablet 200 mg PO BID 02/28/22 04/30/24 History losartan 50 mg tablet 50 mg PO DAILY 02/28/22 04/30/24 History sennosides 8.6 mg-docusate sodium 1 tab-cap PO DAILY 02/28/22 04/30/24 History 50 mg tablet (Laxative Stool Softener With Senna) acetaminophen 500 mg tablet 1,000 mg PO Q6H PRN 07/13/22 04/30/24 History (Acetaminophen Extra Strength) methenamine hippurate 1 gram tablet 1 g PO BID 11/26/22 04/30/24 History Allergies Allergy/AdvReac Type Severity Reaction Status Date / Time clonidine Allergy Mild Hallucinati Verified 04/30/24 18:36 ng leflunomide Allergy Mild Hallucinati Verified 04/30/24 18:36 ng lisinopril Allergy Mild increased Verified 04/30/24 18:36 creatinine methotrexate Allergy Mild did not Verified 04/30/24 18:36 feel well hydrocodone Allergy Unknown Vomiting Verified 04/30/24 18:36 oxycodone Allergy Unknown Verified 04/30/24 18:36 Opioids - Morphine Analogues Allergy Verified 04/30/24 18:36 Sulfa (Sulfonamide Allergy Verified 04/30/24 18:36 Antibiotics) surgical glue Allergy Uncoded 04/30/24 18:36 Exam Narrative: Exam Narrative: I examine her in the emergency department. Appears tired and ill. Vision and hearing are adequate. Difficult for her to talk because of the pain that she has in her oropharynx. Alert and oriented x4. Friendly and cooperative. External auditory canals are clear tympanic. Midline nasal septum. No icterus or conjunctival injection. Conjugate gaze. Hyperplastic like oral lesions as well as linear lesions along the gingiva and periodontal regions. Erythematous base with white lesion. Punctate lesions in the posterior pharynx, yeast like. Very tender to touch. No other skin lesions noted. Neck is supple. Midline trachea. No head neck lymphadenopathy. Lungs clear to auscultation without wheezing, rhonchi, rales. Chest wall excursions are full. No CVA tenderness. Regular heart rhythm with normal S1-S2 without murmur, gallop, rub. PMI not laterally displaced. Abdomen with active bowel sounds, soft, nontender. Extremities without edema. No focal motor neurologic deficits. Const: Vital Signs, click to edit/add: Vital Signs - 24 hr 05/13/24 18:24 05/13/24 19:39 05/13/24 19:45 Temperature 98.2 F Pulse Rate 77 77 Pulse Rate [Pulse Oximeter] 86 Respiratory Rate 16 Blood Pressure Blood Pressure [Ri ght Upper Arm] 126/67 Pulse Oximetry 97 98 98 [facility] 05/13/24 19:47 05/13/24 19:48 05/13/24 20:00 Temperature Pulse Rate 78 76 72 Pulse Rate [Pulse Oximeter] Respiratory Rate Blood Pressure 132/49 L Blood Pressure [Ri ght Upper Arm] Pulse Oximetry 98 98 97 Oxygen Delivery De thod 05/13/24 20:01 05/13/24 20:15 05/13/24 20:30 Temperature Pulse Rate 73 75 75 Pulse Rate [Pulse Oximeter] Respiratory Rate Blood Pressure 132/49 L Blood Pressure [Ri ght Upper Arm] Pulse Oximetry 97 97 96 Oxygen Delivery De thod 05/13/24 20:32 05/13/24 20:33 05/13/24 20:45 Temperature Pulse Rate 73 75 77 Pulse Rate [Pulse Oximeter] Respiratory Rate Blood Pressure 133/52 L Blood Pressure [Ri ght Upper Arm] Pulse Oximetry 96 96 98 [facility] 05/13/24 21:00 05/13/24 21:01 05/13/24 21:15 Temperature Pulse Rate 79 79 85 Pulse Rate [Pulse Oximeter] Respiratory Rate Blood Pressure 144/52 H Blood Pressure [Ri ght Upper Arm] Pulse Oximetry 97 96 95 [facility] 05/13/24 21:30 05/13/24 21:31 Temperature Pulse Rate 105 H 105 H Pulse Rate [Pulse Oximeter] Respiratory Rate Blood Pressure 135/74 Blood Pressure [Ri ght Upper Arm] Pulse Oximetry 96 96 Oxygen Delivery [facility] Hospitalist - H&P: Result Labs Labs: Short CBC 05/13/24 Range/Units 19:30 WBC 2.98 L (4.50-11.00) K/uL Hgb 7.4 L* (12.0-16.0) gm/dL Hct 22.5 L (33.0-51.0) % Plt Count 74 L (140-440) K/uL BMP 05/13/24 19:30 Sodium 128 L Potassium 4.3 Chloride 98 Carbon Dioxide 24 BUN 32 H Creatinine 0.9 Glucose 126 H Calcium 7.9 L Liver Function 05/13/24 Range/Units 19:30 Total Bilirubin 0.7 (0.1-1.5) mg/dL Direct Bilirubin 0.2 (0.0-0.5) mg/dL AST 53 H (12-35) U/L ALT 144 H (4-35) U/L Alkaline Phosphatase 77 (40-150) U/L Albumin 3.5 (3.3-5.0) g/dL Assessment and Plan Assessment and plan (1) Acquired pancytopenia: Problem comment: -this is new to the patient -etiology not yet determined. Consider bone marrow infiltrative processes such as malignancy; consider bone marrow failure, such as immune destructive or suppressive processes as can occur with medications or rheumatoid arthritis, nutritional deficiencies, including B12 and folate; or destructive processes such as consumption seen with DIC or splenomegaly such as Felty's syndrome associated with rheumatoid arthritis peer -Will stop her aspirin for now. -peripheral smear ordered. Monitor CBC. Will check a vitamin B12 level. Will check a folate level. -consider discussion with Hematology. Status: Acute (2) Acute mucositis: Problem comment: -I suspect part of it is actually oral candidiasis -for the time being, until our pharmacist comes in the morning, will use viscous lidocaine p.r.n. -initiate fluconazole 200 mg IV Q 24 hours while she is hardly able to swallow at all -clear liquids as tolerated -D5 normal saline -throat culture and nasal swab for MRSA Status: Acute (3) MRSA infection: Problem comment: -history of, most recently July 2023 -check nasal MRSA swab and throat culture Status: Acute (4) Rheumatoid arthritis: Problem comment: -hydroxychloroquine 200 mg twice daily. Had been on prednisone for a number years but this was stopped after a long-term taper about 1 month ago. Status: Acute (5) Anemia: Problem comment: -05/13/2024, hemoglobin 7.4. Usual hemoglobin around 10. -1 unit packed red blood cells ordered by emergency department, being administered at time of admission -monitor -check stool for occult blood -in association with the evolving pancytopenia the concern is that she has a bone marrow process that is evolving and may need a bone marrow aspirate and biopsy in the near future to help sort through this Status: Acute Plan 1. Reviewed impression and recommended plans with patient and her fiance 2. Answered their questions their satisfaction 3. They are agreeable with above stated plans and recommendations Total Time Spent Total Time Spent: 70 minutes
[2024-05-14] VITALS (8 sets, daily range): BP systolic 119–149; BP diastolic 50–70; PULSE 66–78; RESP 16–18; TEMP 36.3–38; O2SAT 98–100
[2024-05-14] MEDS: 5 % DEXTROSE/0.9% SOD CHLORIDE 1,000 ML 75 ML IV ×2 (00:29→16:39)
--- NOTE | 2024-05-14 06:07 | PC.NURSE ---
End of shift report [id number]: Pleasant and cooperative with cares. Alert and oriented x 4. Pain to mouth reported at /, patient states that IV pain medication from ED was not effective. Upper and lower lips have large ulcer appearing open areas that are bleeding, patient also has ulcerated areas on inside of cheeks which is causing intense pain with eating, drinking and opening mouth. Viscous lidocaine applied to lips which was minimally effective for discomfort. Patient has been unable to swallow liquids due to the pain, mouth swabs utilized to attempt to moisten inside of mouth and used to apply lidocaine to inner cheeks. 5 minutes post application patient placed call light on and felt like she was unable to swallow her saliva at that time and that the pain has prevented her from being able to swallow any amount of liquid, Zoe feels like she has these ulcer type of sore going down her esophagus which is preventing her from being able to swallow anything at this time. Suction utilized to clear mouth of secretions that were interfering with ability to get deep breath, no further reports of difficultly swallowing after suction completed. Patient self cath's at home and has been unable to void for the last 9 years after having a knee replacement done. patient will self cath 4-5x per day to empty bladder, magnetic tape typewriter operator completed self cath for patient due to weakness and inability to get out of bed.
[2024-05-14 06:53] LABS: Basophils Percent Auto 0.4 % (0.0-3.0); Eosinophils Percent Auto 6.8 % (0.0-7.0); Hematocrit 23.1 % (33.0-51.0); Immature Granulocytes Pct Auto 0.4 %; Lymphocytes Percent Auto 34.2 % (20-44); Mean Corpuscular HGB Conc 34 gm/dL (32-36); Mean Corpuscular Hemoglobin 31 pg (26-34); Mean Corpuscular Volume 92 fL (80-100); Monocytes Percent Auto 2.5 % (0.0-11.0); Neutrophils Percent Auto 55.7 % (42.0-72.0); Platelet Count* 50 K/uL (140-440); RDW Coefficient of Variation % 22.5 % (11.5-15.5); Red Blood Count 2.51 m/uL (4.00-5.20); White Blood Count* 2.37 K/uL (4.50-11.00)
[2024-05-14 07:10] LABS: Lactate* < 0.4 mmol/L (0.5-1.9)
[2024-05-14 07:22] LABS: Hemoglobin* 7.8 gm/dL (12.0-16.0); Slide Review Reflex No
[2024-05-14 07:35] LABS: Albumin* 2.7 g/dL (3.3-5.0); Chloride* 104 mmol/L (96-114); Sodium* 131 mmol/L (135-149)
[2024-05-14 07:37] LABS: Bilirubin Total* 1.1 mg/dL (0.1-1.5); Creatinine* 0.7 mg/dL (0.5-1.5); Estimated Glomerular Filt Rate 85 ml/min
[2024-05-14 07:38] LABS: Alanine Aminotransferase* 116 U/L (4-35); Alkaline Phosphatase* 59 U/L (40-150); Anion Gap 3 mEq/L (7-15); Aspartate Amino Transferase* 48 U/L (12-35); Blood Urea Nitrogen* 24 mg/dL (7-30); Carbon Dioxide* 24 mmol/L (20-32); Glucose* 121 mg/dL (60-115); Phosphorus* 2.6 mg/dL (2.5-4.5); Total Protein* 4.9 g/dL (6.0-8.3)
[2024-05-14 07:39] LABS: Calcium* 7.1 mg/dL (8.4-10.6); Magnesium* 2.1 mg/dL (1.5-2.6)
[2024-05-14 07:41] LABS: C Reactive Protein* 4.1 mg/dL (0.5-1.0)
--- NOTE | 2024-05-14 08:29 | CRLHL7_ITS ---
For Patients: As a result of the Century Cures Act, medical imaging exams and procedure reports are released immediately into your electronic medical record. You may view this report before your referring provider. If you have questions, please contact your health care provider. INDICATION: Anemia. Weakness. COMPARISON: None TECHNIQUE: PA and lateral views of the chest were acquired FINDINGS: TUBES AND LINES: None. HEART AND MEDIASTINUM: The heart size is normal. The mediastinal contour appears normal for patient age. LUNGS AND PLEURAL SPACES: Airspace opacities on the right. One component has a somewhat nodular configuration on lateral view. This could be inflammatory. Consider a CT due to the nodular component. No pleural effusion or pneumothorax OSSEOUS STRUCTURES: Age-appropriate appearance. No acute focal finding. IMPRESSION: Airspace opacities on the right. One component has a somewhat nodular configuration on the lateral view. While this could be inflammatory, consider a CT given the nodular component. Dictated by Jersey Riley MD @ 05/14/2024 9:15:32 AM (Electronically Signed)
[2024-05-14 09:08] LABS: INR 1.04 (0.91-1.10); Prothrombin Time 14.2 Seconds
[2024-05-14 09:09] LABS: Partial Thromboplastin Time* 28 Seconds (23-33)
--- NOTE | 2024-05-14 09:17 | CRLHL7_ITS ---
For Patients: As a result of the Century Cures Act, medical imaging exams and procedure reports are released immediately into your electronic medical record. You may view this report before your referring provider. If you have questions, please contact your health care provider. INDICATION: Abnormal chest x-ray. COMPARISON: Same day chest radiograph. Prior chest CT 02/28/2022 TECHNIQUE: CT chest with contrast. Multiplanar axial, coronal, and sagittal reformats are included. MIP images to improve detection of pulmonary nodules are included. Intravenous contrast: 75 mL Isovue 370 FINDINGS: Airway: Mild mass effect from the large right thyroid nodule. No central endobronchial lesion. Lungs: Lungs are well-expanded. There are 2 small peripheral nodular opacities, 1 in the right middle lobe and 1 in the right lower lobe. Neither of these have changed significantly since 2021. Neither of these are in the right position to account for the radiographic abnormality seen. No new or growing pulmonary nodules or masses. Mild biapical scarring is similar to prior. Minimal pulmonary edema. Pleura: Trace bilateral pleural effusions. No pneumothorax. Lymph nodes: No thoracic adenopathy. Mediastinum: No pneumomediastinum. Large heterogeneous right thyroid nodule appear similar to prior. There is similar associated mass effect on the upper trachea. Heart and great vessels: No pericardial effusion. Normal cardiac chamber size. Minimal calcified atherosclerotic plaques. No aortic aneurysm. Mildly dilated branch pulmonary arteries within normal caliber of the main pulmonary artery. No pulmonary emboli. Chest wall: There is a 1.5 centimeter right upper-outer breast mass that could potentially account for the abnormality seen radiographically, hard to say given the difference in positioning between lying flat 1st CT and being upright frontal chest x-ray.. Upper abdomen: Intrahepatic biliary ductal dilatation. The extrahepatic bile duct is dilated up to 1.9 cm. This has slightly increased since 2021. Small sliding-type hiatal hernia.. Bones: Left humeral fracture fixation partially seen in the [id number]. No acute or healing fractures. No focal bone lesions. IMPRESSION: 1. There is a 1.5 centimeter right breast mass. Could potentially account for the density seen radiographically given differences in patient positioning. Recommend diagnostic mammogram if not recently performed. 2. There are 2 stable solid nodular opacities in the right lung. Neither of them are likely to account for the finding radiographically. 3. Mildly increased intrahepatic and extrahepatic biliary ductal dilatation. 4. Minimal pulmonary edema with trace bilateral pleural effusions. 5. Unchanged large right thyroid nodule with similar mass effect on the airway. Please note that all CT scans at this facility use dose modulation, iterative reconstruction, and/or weight-based dosing when appropriate to reduce radiation dose to as low as reasonably achievable. Dictated by Lyudmila West MD @ 05/14/2024 10:22:16 AM (Electronically Signed)
--- NOTE | 2024-05-14 09:52 | P.IMPN_ITS ---
Progress Note: A&P Assessment and plan (1) Acquired pancytopenia: Problem details: -this is new to the patient -etiology not yet determined but leading the differential is drug effect from the combination of doxycycline, plaquenil both new in the last month. No evidence on the peripheral smear of malignancy; no evidence of infection. Discussed case with [facility] - w/neg peripheral smear they feel likely med induced. Supportive care unless worsens; needs repeated transfusion, b/c he modynamically unstable - transfer for bone marrow biopsy. Discussed case w/pictures with ENT - recommended vasculitis workup. No steroids at this time; keep RA complication like Felty's, or nutritional issues. Reviewed CBC in December which was normal. Status: Acute (2) Acute mucositis: Problem details: -Heme recommended stopping diflucan and giving just supportive care -IV tylenol helped the most - continue topical lidocaine at patient's bedisde. -ADAT - this was improving throughout the day -MRSA swab pending -will stop D5 when taking adequate PO Status: Acute (3) Rheumatoid arthritis: Problem details: -hydroxychloroquine 200 mg twice daily x 1 month. Had been on prednisone for a number years but this was stopped after a long-term taper about 1 month ago. Status: Acute (4) Breast mass, right: Problem details: -noted on chest CT 05/14/24 -will need outpatient workup Status: Acute (5) Hyponatremia: Problem details: trend/follow Status: Acute (6) Neurogenic bladder: Problem details: Self catheterization at home. Status: Acute (7) Physical deconditioning: Status: Acute (8) Presence of neurostimulator: Status: Acute Subjective Date Seen: 05/14/24 Interval history: Daily Progress Note - Hospital Medicine Day #: 2 CC: pain crisis with Mucositis, pancytopenia, weakness w/ poor oral intake. 24 HOUR UPDATE: Vitals have remained stable. She is on room air satting 98%. She is complaining of mouth pain, swollen lips and left-sided upper throat pain. This markedly improved by mid day with IV Acetaminophen and she was able to take ice chips/water/jello etc. Notable Labs, Micro, Rads, Interventions: Total white count 2.37 which equals 1320 - peripheral smear supports analyzer and no cell lines indicating a malignancy or infiltrative process in the bone marrow noted. Hemoglobin is 7.8 up from 7.4 after 1 unit Platelets are down to 50 INR is normal PTT is normal Hyponatremia is slowly improved 128 last night to 131 this morning. Renal function is normal. Other electrolytes are normal. Her blood glucose is 121. Her lactate is normal. Transaminitis is down trending, notable for a normal bilirubin and alk-phos Her calcium corrects to near normal with ox consideration of her low albumin. CRP is about the same with slight elevation at 4.1. ESR was not obtained. Ferritin is quite elevated at 630. Covid/Flu/RSV swab NEG UA: pending Legionella/Strep pneumo: pending ESR: 24 Vasculitis panal: ordered CT Chest: 1. There is a 1.5 centimeter right breast mass. Could potentially account for the density seen radiographically given differences in patient positioning. Recommend diagnostic mammogram if not recently performed. 2. There are 2 stable solid nodular opacities in the right lung. Neither of them are likely to account for the finding radiographically. 3. Mildly increased intrahepatic and extrahepatic biliary ductal dilatation. 4. Minimal pulmonary edema with trace bilateral pleural effusions. 5. Unchanged large right thyroid nodule with similar mass effect on the airway Objective: looks miserable this morning - dried sloughing of bottom lip - blood stained front teeth, palate seems normal as does buccal mucosa. no neck adenopathy Vitals: see above Lungs: Clear. Cardiac: S1S2. legs: chronic wound on left lower mo Disposition/Potential discharge - Hopefully home in 2 days Today I spent 50minutes seeing the patient, reviewing Expanse and EPIC notes/diagnostics, discussing the care plan with our care time that includes social work, PT/OT, pharmacy, RT, jail and documenting my impressions and plan in the medical record. Prolonged Physician Services [id number] ([facility]) in conjunction with: [id number] (subsequent visit; 50 mins + 15 mins prolonged services = 65 mins total) I then went back for 15 mins to discuss the findings of .....chest CT and discussion of her acute medical issues with hematology. Exam Const: Vital Signs, click to edit/add: Vital Signs - 24 hr 05/13/24 18:24 05/13/24 19:39 05/13/24 19:45 Temperature 98.2 F Pulse Rate 77 77 Pulse Rate [Pulse Oximeter] 86 Respiratory Rate 16 Blood Pressure Blood Pressure [Ri ght Arm] Blood Pressure [Ri ght Upper Arm] 126/67 Pulse Oximetry 97 98 98 Oxygen Delivery Me thod Room Air 05/13/24 19:47 05/13/24 19:48 05/13/24 20:00 Temperature Pulse Rate 78 76 72 Pulse Rate [Pulse Oximeter] Respiratory Rate Blood Pressure 132/49 L Blood Pressure [Ri ght Arm] Blood Pressure [Ri ght Upper Arm] Pulse Oximetry 98 98 97 Oxygen Delivery Me thod 05/13/24 20:01 05/13/24 20:15 05/13/24 20:30 Temperature Pulse Rate 73 75 75 Pulse Rate [Pulse Oximeter] Respiratory Rate Blood Pressure 132/49 L Blood Pressure [Ri ght Arm] Blood Pressure [Ri ght Upper Arm] Pulse Oximetry 97 97 96 Oxygen Delivery Me thod 05/13/24 20:32 05/13/24 20:33 05/13/24 20:45 Temperature Pulse Rate 73 75 77 Pulse Rate [Pulse Oximeter] Respiratory Rate Blood Pressure 133/52 L Blood Pressure [Ri ght Arm] Blood Pressure [Ri ght Upper Arm] Pulse Oximetry 96 96 98 Oxygen Delivery Me thod 05/13/24 21:00 05/13/24 21:01 05/13/24 21:15 Temperature Pulse Rate 79 79 85 Pulse Rate [Pulse Oximeter] Respiratory Rate Blood Pressure 144/52 H Blood Pressure [Ri ght Arm] Blood Pressure [Ri ght Upper Arm] Pulse Oximetry 97 96 95 Oxygen Delivery Me thod 05/13/24 21:30 05/13/24 21:31 05/13/24 21:50 Temperature 98.7 F Pulse Rate 105 H 105 H Pulse Rate [Pulse Oximeter] 90 Respiratory Rate 18 Blood Pressure 135/74 Blood Pressure [Ri ght Arm] 146/58 H Blood Pressure [Ri ght Upper Arm] Pulse Oximetry 96 96 97 Oxygen Delivery Me thod Room Air 05/13/24 21:50 05/13/24 22:07 05/13/24 22:28 Temperature 98.7 F 98.5 F Pulse Rate 90 81 Pulse Rate [Pulse Oximeter] Respiratory Rate 16 18 16 Blood Pressure 146/58 H 135/68 Blood Pressure [Ri ght Arm] Blood Pressure [Ri ght Upper Arm] Pulse Oximetry 97 97 100 Oxygen Delivery Me thod Room Air Room Air Room Air 05/13/24 22:58 05/13/24 23:00 05/13/24 23:00 Temperature 98.6 F Pulse Rate 75 Pulse Rate [Pulse Oximeter] 90 Respiratory Rate 16 18 16 Blood Pressure 128/49 L Blood Pressure [Ri ght Arm] Blood Pressure [Ri ght Upper Arm] Pulse Oximetry 98 99 Oxygen Delivery Me thod Room Air Room Air 05/13/24 23:00 05/13/24 23:28 05/13/24 23:58 Temperature 98.5 F 98.5 F 98.8 F Pulse Rate 71 73 Pulse Rate [Pulse Oximeter] 71 Respiratory Rate 16 16 16 Blood Pressure 127/43 L 140/56 H Blood Pressure [Ri ght Arm] 127/43 L Blood Pressure [Ri ght Upper Arm] Pulse Oximetry 97 97 99 Oxygen Delivery Me thod Room Air Room Air Room Air 05/14/24 00:25 05/14/24 01:25 05/14/24 03:00 Temperature 98.8 F 98.4 F 98.9 F Pulse Rate 74 73 Pulse Rate [Pulse Oximeter] 69 Respiratory Rate 18 18 16 Blood Pressure 136/53 L 119/50 L Blood Pressure [Ri ght Arm] 136/54 L Blood Pressure [Ri ght Upper Arm] Pulse Oximetry 100 99 100 Oxygen Delivery Pr thod Room Air Room Air Room Air 05/14/24 07:00 05/14/24 07:00 Temperature 98.8 F Pulse Rate Pulse Rate [Pulse Oximeter] 68 Respiratory Rate 18 18 Blood Pressure Blood Pressure [Ri ght Arm] 123/62 Blood Pressure [Ri ght Upper Arm] Pulse Oximetry 98 98 Oxygen Delivery Me thod Room Air Room Air Labs Labs: Laboratory Results - last 24 hr 05/13/24 05/13/24 05/13/24 19:30 19:44 19:50 WBC 2.98 L RBC 2.32 L Hgb 7.4 L* Hct 22.5 L MCV 97 MCH 32 MCHC 33 RDW Coeff of Randa 23.2 H Plt Count 74 L Neut % (Auto) 63.6 Lymph % (Auto) 29.5 [place] % (Auto) 1.3 Eos % (Auto) 5.0 Baso % (Auto) 0.3 Neut # (Auto) 1.90 Lymph # (Auto) 0.90 [place] # (Auto) 0.00 Eos # (Auto) 0.10 Baso # (Auto) 0.00 Abs Immat Gran (auto) 0.00 Imm/Tot Granulo (auto) 0.3 Diff Slide Review Acceptable Review Absolute Retic 0.01 L Percent Retic 0.5 Immature Retic Fraction 15.3 Retic Hgb Equivalent 41.1 H INR APTT Sodium 128 L Potassium 4.3 Chloride 98 Carbon Dioxide 24 Anion Gap 6 L BUN 32 H Creatinine 0.9 Estimated Creat Clear Estimated GFR 63 Glucose 126 H Lactate 0.8 Calcium 7.9 L Phosphorus Magnesium Iron 72 TIBC 203 L % Saturation 35 Ferritin 630.0 H Total Bilirubin 0.7 Direct Bilirubin 0.2 AST 53 H ALT 144 H Alkaline Phosphatase 77 C-Reactive Protein 4.2 H Total Protein 6.0 Albumin 3.5 Lab Acknowledgement Test Added Blood Type A Negative Antibody Screen NEGATIVE Crossmatch ([facility]) See Detail 05/14/24 05/14/24 06:00 08:27 WBC 2.37 L RBC 2.51 L Hgb 7.8 L* Hct 23.1 L MCV 92 MCH 31 MCHC 34 RDW Coeff of [place]anda 22.5 H Plt Count 50 L Neut % (Auto) 55.7 Lymph % (Auto) 34.2 [place] % (Auto) 2.5 Eos % (Auto) 6.8 Baso % (Auto) 0.4 Neut # (Auto) 1.30 L Lymph # (Auto) 0.80 L [place] # (Auto) 0.10 Eos # (Auto) 0.20 Baso # (Auto) 0.00 Abs Immat Gran (auto) 0.00 Imm/Tot Granulo (auto) 0.4 Diff Slide Review Absolute Retic Percent Retic Immature Retic Fraction Retic Hgb Equivalent INR 1.04 APTT 28 Sodium 131 L Potassium 4.0 Chloride 104 Carbon Dioxide 24 Anion Gap 3 L BUN 24 Creatinine 0.7 Estimated Creat Clear 31.60 Estimated GFR 85 Glucose 121 H Lactate < 0.4 L Calcium 7.1 L Phosphorus 2.6 Magnesium 2.1 Iron TIBC % Saturation Ferritin Total Bilirubin 1.1 Direct Bilirubin AST 48 H ALT 116 H Alkaline Phosphatase 59 C-Reactive Protein 4.1 H Total Protein 4.9 L Albumin 2.7 L Lab Acknowledgement Test Added Blood Type Antibody Screen Crossmatch ([facility])
--- NOTE | 2024-05-14 10:18 | NUTR.NU ---
RDN with MD consult for mucositis. Patient admitted with large painful ulcers on lips and mouth. RDN checked in with nursing staff whom reports patient is having a lot of difficulty with pain and swallowing at this time. No appropriate to visit. RDN will hold off on visiting until improvement in status. Will continue to monitor.
[2024-05-14] MEDS: ACETAMINOPHEN INJ 1,000 MG/100 ML VIAL 400 MG IVPB ×2 (10:41→20:11)
[2024-05-14 11:01] LABS: PCR FLU A Negative PCR FLU A (Negative); PCR FLU B Negative PCR FLU B (Negative); PCR RSV Negative PCR RSV (Negative); SARS PCR* Negative SARS-CoV-2 (Negative)
[2024-05-14 11:34] LABS: Erythrocyte SedimentationRate* 24 mm/hr (2-20)
[2024-05-14 13:46] LABS: Appearance Urine Clear (Clear); Bilirubin Urine Negative (Negative); Blood Urine Negative (Negative); Color Urine Yellow (Yellow); Glucose Urine Negative (Negative); Ketones Urine Negative (Negative); Leukocyte Esterase Urine Negative (Negative); Nitrite Urine Negative (Negative); Protein Urine Negative (Negative); Urobilinogen Urine 0.2 (0.2-1.0)
[2024-05-14 14:35] LABS: RBC Urine 0-2 (0-2); Squamous Epithelial Cell Urine Few (None-Few); WBC Urine 0-2 (0-5)
[2024-05-14 14:54] LABS: Legionella pneumo Ag Urine L. pneumo Negative (Negative); S pneumo Ag Urine S. pneumo Negative (Negative)
--- NOTE | 2024-05-14 19:24 | PC.NURSE ---
End of shift-- Very pleasant and cooperative, alert and oriented patient. VSS and pt is afebrile. SPO2 maintained >94% on RA. Mouth sores with blackened blood around lips noted. Pain appears well managed with small amounts of viscous lidocaine painted on her lips as needed and IV Tylenol. LS CTA. She denied nausea and was able to tolerate soft foods today without difficulty. Straight cath-ed twice today for 600ml and 500ml theresa colored urine. She was up to the chair and bed with assist of 1 and tolerated it fair. Pt is weak and unsteady. Fiance was at bedside this evening and appears loving and supportive. Report to REINIER Vickers.
[2024-05-14] MEDS: HYDROmorphone 0.5 mg/0.5 ml inj IVP (21:48)
[2024-05-15] VITALS (9 sets, daily range): BP systolic 129–169; BP diastolic 51–67; PULSE 69–95; RESP 16–22; TEMP 36.5–37.6; O2SAT 95–100
--- NOTE | 2024-05-15 05:48 | PC.NURSE ---
End of shift: Pt AxOx4, cooperative, and pleasant. Mouth sores present with blood surrounding the lips reddish black appearing. Pain to the mouth was managed with viscous lidocaine. Straight cath was performed by REINIER Russell per Pt request. Pt was able to sleep for majority of the shift. Upon initial assessment, IV was leaking. New IV started, continuous fluids running @ 75 mls/hour. Pt appears resting in bed with call light in reach. ?
[2024-05-15] MEDS: 5 % DEXTROSE/0.9% SOD CHLORIDE 1,000 ML 75 ML IV ×2 (06:19→20:03)
[2024-05-15 06:42] LABS: HCO3 VBG 23 mmol/L (21-28); PCO2 VBG 39 mmHG (40-50); PO2 VBG 38.2 mmHG (25-47); pH VBG 7.381 (7.32-7.43)
[2024-05-15 06:47] LABS: Basophils Percent Auto 0.7 % (0.0-3.0); Eosinophils Percent Auto 9.3 % (0.0-7.0); Immature Reticulocyte Fraction 15.2 % (3.0-15.9); Lymphocytes Percent Auto 39.8 % (20-44); Mean Corpuscular HGB Conc 34 gm/dL (32-36); Mean Corpuscular Hemoglobin 32 pg (26-34); Mean Corpuscular Volume 94 fL (80-100); Monocytes Percent Auto 1.9 % (0.0-11.0); Neutrophils Percent Auto 48.3 % (42.0-72.0); RDW Coefficient of Variation % 22.9 % (11.5-15.5); Red Blood Count 2.44 m/uL (4.00-5.20); Reticulocyte Hemoglobin Equivi 35.4 pg (29.0-35.0); Reticulocyte Percent 0.6 % (0.5-2.0); Reticulocytes Absolute 0.01 # (0.03-0.08); White Blood Count* 2.69 K/uL (4.50-11.00)
[2024-05-15 07:06] LABS: Albumin* 2.7 g/dL (3.3-5.0); Chloride* 107 mmol/L (96-114)
[2024-05-15 07:07] LABS: Potassium* 3.8 mmol/L (3.6-5.1); Sodium* 133 mmol/L (135-149)
[2024-05-15 07:09] LABS: Anion Gap 4 mEq/L (7-15); Aspartate Amino Transferase* 53 U/L (12-35); Bilirubin Direct* 0.2 mg/dL (0.0-0.5); Bilirubin Total* 0.5 mg/dL (0.1-1.5); Carbon Dioxide* 22 mmol/L (20-32); Creatinine* 0.6 mg/dL (0.5-1.5); Estimated Glomerular Filt Rate 88 ml/min
[2024-05-15 07:10] LABS: Alanine Aminotransferase* 115 U/L (4-35); Alkaline Phosphatase* 62 U/L (40-150); Blood Urea Nitrogen* 14 mg/dL (7-30); Calcium* 6.8 mg/dL (8.4-10.6); Glucose* 111 mg/dL (60-115); Hemoglobin* 7.7 gm/dL (12.0-16.0); Phosphorus* 1.9 mg/dL (2.5-4.5); Platelet Count* 40 K/uL (140-440); Slide Review Reflex Yes
[2024-05-15 07:11] LABS: Slide Review Acceptable Review (Acceptable)
[2024-05-15 07:12] LABS: C Reactive Protein* 4.8 mg/dL (0.5-1.0)
[2024-05-15 07:44] LABS: Erythrocyte SedimentationRate* 34 mm/hr (2-20)
[2024-05-15] MEDS: LOSARTAN POTASSIUM 50 MG TABLET PO (08:21)
--- NOTE | 2024-05-15 08:23 | PM.IMPN1 ---
Progress Note: A&P Assessment and plan (1) Acquired pancytopenia: Problem details: -this is new to the patient -etiology not yet determined but leading the differential is drug effect from the combination of doxycycline, plaquenil both new in the last month in the setting of chronic prednisone for years (weaned 1 month ago) and advanced age. No evidence on the peripheral smear of malignancy; no evidence of infection. Discussed case with [facility] - w/neg peripheral smear and unresponsive retic count they feel likely med induced. Supportive care unless worsens; needs repeated transfusion, b/c hemodynamically unstable - transfer for bone marrow biopsy. Discussed case w/pictures with ENT - recommended vasculitis workup. No steroids at this time; keep RA complication like Felty's, or nutritional issues on differential. Reviewed CBC in December which was normal. Status: Acute (2) Acute mucositis: Problem details: -Heme recommended stopping diflucan and giving just supportive care -IV tylenol helped the most - continue topical lidocaine at patient's bedside. -ADAT - this was improving throughout the day -MRSA neg -will stop D5 when taking adequate PO - d/c 05/15 Status: Acute (3) Rheumatoid arthritis: Problem details: -hydroxychloroquine 200 mg twice daily x 1 month. Had been on prednisone for a number years but this was stopped after a long-term taper about 1 month ago. Status: Acute (4) Transaminitis: Problem details: will follow; suspect multifactorial from the pancytopenia stress and recent wound abx (doxy) and mucositis. Status: Acute (5) Breast mass, right: Problem details: -noted on chest CT 05/14/24 -will need outpatient workup Status: Acute (6) Hyponatremia: Problem details: trend/follow Status: Acute (7) Neurogenic bladder: Problem details: Self catheterization at home. Status: Acute (8) Physical deconditioning: Status: Acute (9) Presence of neurostimulator: Status: Acute Subjective Date Seen: 05/15/24 Interval history: Daily Progress Note - Hospital Medicine Day #: 3 CC: pain crisis with Mucositis, pancytopenia, weakness w/ poor oral intake. 24 HOUR UPDATE: much brighter this morning. tolerating a bland/soft diet. feels a bit stronger. lips, mouth still sore. End of shift: Pt AxOx4, cooperative, and pleasant. Mouth sores present with blood surrounding the lips reddish black appearing. Pain to the mouth was managed with viscous lidocaine. Straight cath was performed by REINIER Russell per Pt request. Pt was able to sleep for majority of the shift. Upon initial assessment, IV was leaking. New IV started, continuous fluids running @ 75 mls/hour. Pt appears resting in bed with call light in reach. ? Notable Labs, Micro, Rads, Interventions: Vitals reviewed, stability noted WBC 2.69 = 1300 ANC Hgb 7.7 plts 40 retic count appears c/w unresponsive to panctopenia peripheral smear is c/w analyzer sodium improving ferritin and crp improving or similar to yesterday persistent transaminitis UA clear strep pneumo/leg neg vasculitis panel pending Objective: looks better this am - lip looks improved midly. her pain is better managed. Vitals: see above HEENT: neck is supple, mouth has dried peeling skin; no cracks in the corner, tongue is pink, midline. no edema. Lungs: Clear. Cardiac: S1S2. legs: chronic wound on left lower mo Disposition/Potential discharge - Hopefully home in 2 days Today I spent 50minutes seeing the patient, reviewing Expanse and EPIC notes/diagnostics, discussing the care plan with our care time that includes social work, PT/OT, pharmacy, RT, usp and documenting my impressions and plan in the medical record. Exam Const: Vital Signs, click to edit/add: Vital Signs - 24 hr 05/14/24 11:00 05/14/24 15:00 05/14/24 15:00 Temperature 100.4 F H 97.3 F L Pulse Rate [Pulse Oximeter] 66 69 Respiratory Rate 18 16 18 Blood Pressure [Ri ght Arm] 128/50 L 137/70 Pulse Oximetry 98 100 98 Oxygen Delivery Me thod Room Air Room Air Room Air 05/14/24 15:00 05/14/24 19:00 05/14/24 23:00 Temperature 98.2 F 98 F Pulse Rate [Pulse Oximeter] 69 78 70 Respiratory Rate 18 18 16 Blood Pressure [Ri ght Arm] 140/51 H 149/66 H Pulse Oximetry 100 99 Oxygen Delivery Me thod Room Air Room Air 05/14/24 23:00 05/15/24 03:00 Temperature 97.7 F Pulse Rate [Pulse Oximeter] 73 Respiratory Rate 16 16 Blood Pressure [Ri ght Arm] 143/60 H Pulse Oximetry 99 98 Oxygen Delivery Me thod Room Air Room Air Labs Labs: Laboratory Results - last 24 hr 05/14/24 05/14/24 05/14/24 06:00 08:27 10:00 WBC RBC Hgb Hct MCV MCH MCHC RDW Coeff of Randa Plt Count Neut % (Auto) Lymph % (Auto) [place] % (Auto) Eos % (Auto) Baso % (Auto) Neut # (Auto) Lymph # (Auto) [place] # (Auto) Eos # (Auto) Baso # (Auto) Abs Immat Gran (auto) Imm/Tot Granulo (auto) Diff Slide Review ESR 24 H Absolute Retic Percent Retic Immature Retic Fraction Retic Hgb Equivalent INR 1.04 APTT 28 VBG pH VBG pCO2 VBG pO2 VBG HCO3 Sodium Potassium Chloride Carbon Dioxide Anion Gap BUN Creatinine Estimated Creat Clear Estimated GFR Glucose Calcium Phosphorus Ferritin Total Bilirubin Direct Bilirubin AST ALT Alkaline Phosphatase C-Reactive Protein Total Protein Albumin Urine Color Urine Appearance Urine pH Ur Specific [place] Urine Protein Urine Glucose (UA) Urine Ketones Urine Blood Urine Nitrite Urine Bilirubin Urine Urobilinogen Ur Leukocyte Esterase Urine RBC Urine WBC Ur Squamous Epith Cells Urine Bacteria Urine L. pneumophilia Ag Urine Strep pneumoniae Ag SARS-CoV-2 (PCR) Influenza Type A (PCR) Influenza Type B (PCR) RSV (PCR) Lab Acknowledgement Test Added Test Added 05/14/24 05/14/24 05/14/24 10:08 10:14 10:15 WBC RBC Hgb Hct MCV MCH MCHC RDW Coeff of Randa Plt Count Neut % (Auto) Lymph % (Auto) [place] % (Auto) Eos % (Auto) Baso % (Auto) Neut # (Auto) Lymph # (Auto) [place] # (Auto) Eos # (Auto) Baso # (Auto) Abs Immat Gran (auto) Imm/Tot Granulo (auto) Diff Slide Review ESR Absolute Retic Percent Retic Immature Retic Fraction Retic Hgb Equivalent INR APTT VBG pH VBG pCO2 VBG pO2 VBG HCO3 Sodium Potassium Chloride Carbon Dioxide Anion Gap BUN Creatinine Estimated Creat Clear Estimated GFR Glucose Calcium Phosphorus Ferritin Total Bilirubin Direct Bilirubin AST ALT Alkaline Phosphatase C-Reactive Protein Total Protein Albumin Urine Color Urine Appearance Urine pH Ur Specific [place] Urine Protein Urine Glucose (UA) Urine Ketones Urine Blood Urine Nitrite Urine Bilirubin Urine Urobilinogen Ur Leukocyte Esterase Urine RBC Urine WBC Ur Squamous Epith Cells Urine Bacteria Urine L. pneumophilia Ag Urine Strep pneumoniae Ag SARS-CoV-2 (PCR) Negative SARS-CoV-2 Influenza Type A (PCR) Negative PCR FLU A Influenza Type B (PCR) Negative PCR FLU B RSV (PCR) Negative PCR RSV Lab Acknowledgement Test Added Test Added 05/14/24 05/15/24 13:35 06:06 WBC 2.69 L RBC 2.44 L Hgb 7.7 L* Hct 23.0 L MCV 94 MCH 32 MCHC 34 RDW Coeff of Randa 22.9 H Plt Count 40 L* Neut % (Auto) 48.3 Lymph % (Auto) 39.8 [place] % (Auto) 1.9 Eos % (Auto) 9.3 H Baso % (Auto) 0.7 Neut # (Auto) 1.30 L Lymph # (Auto) 1.10 [place] # (Auto) 0.10 Eos # (Auto) 0.30 Baso # (Auto) 0.00 Abs Immat Gran (auto) 0.00 Imm/Tot Granulo (auto) 0.0 Diff Slide Review Acceptable Review ESR 34 H Absolute Retic 0.01 L Percent Retic 0.6 Immature Retic Fraction 15.2 Retic Hgb Equivalent 35.4 H INR APTT VBG pH 7.381 VBG pCO2 39 L VBG pO2 38.2 VBG HCO3 23 Sodium 133 L Potassium 3.8 Chloride 107 Carbon Dioxide 22 Anion Gap 4 L BUN 14 Creatinine 0.6 Estimated Creat Clear 31.60 Estimated GFR 88 Glucose 111 Calcium 6.8 L Phosphorus 1.9 L Ferritin 551.0 H Total Bilirubin 0.5 Direct Bilirubin 0.2 AST 53 H ALT 115 H Alkaline Phosphatase 62 C-Reactive Protein 4.8 H Total Protein 5.0 L Albumin 2.7 L Urine Color Yellow Urine Appearance Clear Urine pH 6.0 Ur Specific [place] 1.010 Urine Protein Negative Urine Glucose (UA) Negative Urine Ketones Negative Urine Blood Negative Urine Nitrite Negative Urine Bilirubin Negative Urine Urobilinogen 0.2 Ur Leukocyte Esterase Negative Urine RBC 0-2 Urine WBC 0-2 Ur Squamous Epith Cells Few Urine Bacteria None Urine L. pneumophilia Ag L. pneumo Negative Urine Strep pneumoniae Ag S. pneumo Negative SARS-CoV-2 (PCR) Influenza Type A (PCR) Influenza Type B (PCR) RSV (PCR) Lab Acknowledgement
--- NOTE | 2024-05-15 10:02 | NUTR.NU ---
MIGELN with MD consult for mucositis. Patient admitted with pancytopenia and mucositis. Current weight 140 lb 6.4oz; height 5ft 1in; BMI 26.5 kg/m2. Per patient, she has been struggling to eat the last couple of weeks due to lip and mouth pain from the sores. Current diet is Regular. She is doing better today and is able to eat soft, bland foods such as mashed potatoes and yogurt. She tried protein supplements like Ensure or Boost at home, however she could not tolerated them and refused these here. She reports her weight is usually between 135-140 lbs. She had no questions or concerns at this time. RDN encouraged small, frequent meals for adequate intake. No nutrition interventions at this time. RDN will continue to monitor.
[2024-05-15] MEDS: FUROSEMIDE 20 MG TABLET PO (10:19)
[2024-05-15] MEDS: MULTIVITAMIN/MINERALS 1 TABLET 1 TAB PO (10:19)
--- NOTE | 2024-05-15 15:35 | PC.NURSE ---
Pt alert, oriented and vitally stable. Sores noticeable around mouth, dried and discolored. Dressing on left ankle, C/D/I. Pt move 1a, walker and gaitbelt, tolerates well. Pt rates pain 0-3/10 throughout shift. Pt had multiple episodes of liquid stools, MD notified. Pt on regular diet, tolerates well. Pt in chair, call light within reach.
--- NOTE | 2024-05-15 19:33 | PC.NURSE ---
End of shift: Pt is AxOx4, she is pleasant. she has Mouth sores Pain to the mouth was managed with viscous lidocaine. Straight cath took 3 rns @ . IV is patent fluids running @ 75 mls/hour. dressing to the leg will be change tomorrow. she is up with 1 assist. she is on C-Diff precautions and has not had a stool since the order was placed.
[2024-05-15] MEDS: ACETAMINOPHEN 325 MG TABLET 975 MG PO (19:50)
[2024-05-16 03:00] VITALS: RESP 20
[2024-05-16 06:44] LABS: Eosinophils Percent Auto 13.5 % (0.0-7.0); Lymphocytes Percent Auto 41.3 % (20-44); Mean Corpuscular HGB Conc 33 gm/dL (32-36); Mean Corpuscular Hemoglobin 31 pg (26-34); Mean Corpuscular Volume 94 fL (80-100); Monocytes Percent Auto 3.3 % (0.0-11.0); Neutrophils Percent Auto 40.9 % (42.0-72.0); RDW Coefficient of Variation % 22.4 % (11.5-15.5); Red Blood Count 2.44 m/uL (4.00-5.20); White Blood Count* 3.03 K/uL (4.50-11.00)
[2024-05-16 06:58] LABS: Albumin* 2.6 g/dL (3.3-5.0); Chloride* 109 mmol/L (96-114)
[2024-05-16 06:59] LABS: Potassium* 3.6 mmol/L (3.6-5.1); Sodium* 133 mmol/L (135-149)
[2024-05-16 07:01] LABS: Creatinine* 0.6 mg/dL (0.5-1.5); Estimated Glomerular Filt Rate 88 ml/min; Hemoglobin* 7.6 gm/dL (12.0-16.0)
[2024-05-16 07:02] LABS: Alanine Aminotransferase* 92 U/L (4-35); Alkaline Phosphatase* 67 U/L (40-150); Anion Gap 2 mEq/L (7-15); Aspartate Amino Transferase* 42 U/L (12-35); Bilirubin Direct* 0.1 mg/dL (0.0-0.5); Bilirubin Total* 0.3 mg/dL (0.1-1.5); Blood Urea Nitrogen* 9 mg/dL (7-30); Calcium* 6.8 mg/dL (8.4-10.6); Carbon Dioxide* 22 mmol/L (20-32); Glucose* 104 mg/dL (60-115); Phosphorus* 1.7 mg/dL (2.5-4.5); Platelet Count* 39 K/uL (140-440); Slide Review Reflex No; Total Protein* 4.8 g/dL (6.0-8.3)
[2024-05-16 07:04] LABS: C Reactive Protein* 4.1 mg/dL (0.5-1.0)
[2024-05-16] MEDS: FUROSEMIDE 20 MG TABLET PO ×2 (08:12→13:44)
[2024-05-16] MEDS: LOSARTAN POTASSIUM 50 MG TABLET PO (08:12)
[2024-05-16] MEDS: MULTIVITAMIN/MINERALS 1 TABLET 1 TAB PO (08:12)
[2024-05-16 09:55] VITALS: BP 156/64; PULSE 84; RESP 20; TEMP 37; O2SAT 96
--- NOTE | 2024-05-16 10:13 | P.IMPN_ITS ---
Progress Note: A&P Assessment and plan (1) Acquired pancytopenia: Problem details: -this is new to the patient -etiology not yet determined but leading the differential is drug effect from the combination of doxycycline, Plaquenil both new in the last month in the setting of chronic prednisone for years (weaned 1 month ago) and advanced age. No evidence on the peripheral smear of malignancy; no evidence of infection. Discussed case with [facility] - w/neg peripheral smear and unresponsive retic count they feel likely med induced. Supportive care unless worsens; needs repeated transfusion, becomes hemodynamically unstable - transfer for bone marrow biopsy. Discussed case w/pictures with ENT - recommended vasculitis workup. No steroids at this time; keep RA complication like Felty's, or nutritional issues on differential. Reviewed CBC in December which was normal. Status: Acute (2) Acute mucositis: Problem details: -Heme recommended stopping Diflucan and giving just supportive care -IV tylenol helped the most - continue topical lidocaine at patient's bedside. -ADAT - this was improving throughout the day -MRSA neg -will stop D5 when taking adequate PO - d/c 05/15 Status: Acute (3) Rheumatoid arthritis: Problem details: -hydroxychloroquine 200 mg twice daily x 1 month. Had been on prednisone for a number of years but this was stopped after a long-term taper about 1 month ago. Status: Acute (4) Transaminitis: Problem details: will follow; suspect multifactorial from the pancytopenia stress and recent wound abx (doxy) and mucositis. Status: Acute (5) Breast mass, right: Problem details: -noted on chest CT 05/14/24 -will need outpatient workup Status: Acute (6) Hyponatremia: Problem details: trend/follow Status: Acute (7) Neurogenic bladder: Problem details: Self catheterization at home. Status: Acute (8) Physical deconditioning: Problem details: working with therapies Status: Acute (9) Presence of neurostimulator: Status: Acute (10) Low phosphate levels: Problem details: replacing orally Status: Acute (11) Chronic wound: Problem details: entered wound care orders for her treatment that has been ongoing on the left leg; added care for the new right leg lesion with addition of clotrimazole for this one Status: Acute (12) Diarrhea: Status: Acute Subjective Date Seen: 05/16/24 Interval history: Daily Progress Note - Hospital Medicine Day #: 4 CC: pain crisis with Mucositis, pancytopenia, weakness w/ poor oral intake. 24 HOUR UPDATE: much brighter this morning. tolerating a bland/soft diet. feels a bit stronger. lips, mouth are improving. had trouble with in/out cath. would like to have her home supplies brought in. diarrhea this morning. she has questions about her wound care. very LUMMI. ? Notable Labs, Micro, Rads, Interventions: Vitals reviewed, stability noted WBC 3.03 = 1239 ANC (1300) Hgb 7.6 (7.7) plts 39 (40) retic count appears c/w unresponsive to panctopenia peripheral smear is c/w analyzer sodium stable. ferritin and crp improving persistent transaminitis - improved UA clear strep pneumo/leg neg vasculitis panel pending Objective: looks better this am - lip looks improved. her pain is better managed. Vitals: see above HEENT: neck is supple, mouth has dried peeling skin; no cracks in the corner, tongue is pink, midline. no edema. Lungs: Clear. Cardiac: S1S2. legs: chronic wound on left lower mo with new oval shaped flaky wound on the right lower leg. Disposition/Potential discharge - Hopefully home in 2 days Today I spent 50minutes seeing the patient, reviewing Expanse and EPIC notes/d iagnostics, discussing the care plan with our care time that includes social work, PT/OT, pharmacy, RT, fpc and documenting my impressions and plan in the medical record. Exam Const: Vital Signs, click to edit/add: Vital Signs - 24 hr 05/15/24 11:00 05/15/24 15:00 05/15/24 15:45 Temperature 98.8 F 98.4 F Pulse Rate [Pulse Oximeter] 73 79 79 Respiratory Rate 18 21 18 Blood Pressure [Ri ght Arm] 129/58 L 154/57 H Pulse Oximetry 100 99 Oxygen Delivery Me thod Room Air 05/15/24 16:47 05/15/24 20:00 05/15/24 22:22 Temperature 99.7 F H Pulse Rate [Pulse Oximeter] 87 Respiratory Rate 18 22 22 Blood Pressure [Ri ght Arm] 169/55 H Pulse Oximetry 99 99 99 Oxygen Delivery Me thod Room Air Room Air Room Air 05/15/24 22:29 05/16/24 03:00 05/16/24 09:55 Temperature 98.5 F Pulse Rate [Pulse Oximeter] 69 Respiratory Rate 20 20 20 Blood Pressure [Ri ght Arm] 142/51 H Pulse Oximetry 99 96 Oxygen Delivery Me thod Room Air Room Air 05/16/24 09:55 Temperature 98.6 F Pulse Rate [Pulse Oximeter] 84 Respiratory Rate 20 Blood Pressure [Ri ght Arm] 156/64 H Pulse Oximetry 96 Oxygen Delivery Me thod Room Air Labs Labs: Laboratory Results - last 24 hr 05/13/24 05/16/24 19:30 06:04 WBC 3.03 L RBC 2.44 L Hgb 7.6 L* Hct 23.0 L MCV 94 MCH 31 MCHC 33 RDW Coeff of Randa 22.4 H Plt Count 39 L* Neut % (Auto) 40.9 L Lymph % (Auto) 41.3 [place] % (Auto) 3.3 Eos % (Auto) 13.5 H Baso % (Auto) 1.0 Neut # (Auto) 1.20 L Lymph # (Auto) 1.30 [place] # (Auto) 0.10 Eos # (Auto) 0.40 Baso # (Auto) 0.00 Abs Immat Gran (auto) 0.00 Imm/Tot Granulo (auto) 0.0 Peripher Smr Path Cons See Scanned Report Sodium 133 L Potassium 3.6 Chloride 109 Carbon Dioxide 22 Anion Gap 2 L BUN 9 Creatinine 0.6 Estimated Creat Clear 31.60 Estimated GFR 88 Glucose 104 Calcium 6.8 L Phosphorus 1.7 L Total Bilirubin 0.3 Direct Bilirubin 0.1 AST 42 H ALT 92 H Alkaline Phosphatase 67 C-Reactive Protein 4.1 H Total Protein 4.8 L Albumin 2.6 L
[2024-05-16 10:23] LABS: C.Difficile Negative (Negative); CDIFFEPI 027 PRESUMPTIVE NEGATIVE (Negative)
[2024-05-16] MEDS: LOPERAMIDE HCL 2 MG CAPSULE PO (11:09)
[2024-05-16] MEDS: POTASSIUM PHOS/SODIUM PHOS 250 MG TABLET PO ×4 (11:10→20:42)
[2024-05-16] MEDS: NON-FORMULARY MEDICATION (Methenamine Hippurate 1 gram tablet) 1 EACH PO ×2 (11:48→20:41)
[2024-05-16] MEDS: CLOTRIMAZOLE 1 % CREAM 1 APPLIC TOPICAL ×2 (12:00→20:43)
[2024-05-16 13:34] VITALS: BP 143/59; PULSE 72; RESP 18; TEMP 36.8; O2SAT 100
[2024-05-16] MEDS: ACETAMINOPHEN 325 MG TABLET 975 MG PO (13:45)
[2024-05-16 15:00] VITALS: BP 131/52; PULSE 77; RESP 18; TEMP 36.7; O2SAT 97
--- NOTE | 2024-05-16 16:02 | PC.NURSE ---
End of shift [id number] - Pt alert, oriented, cooperative. Pt tearful at start of shift, shared with RN poor experience related to straight catheterization during previous evening. RN provided emotional support and reassurance, a.m. straight catheterization performed with additional RN assistance and positive outcome was reported by patient. Wound care performed on LLE chronic wound and RLE wound per MD orders. Pt experienced episodes of continent and incontinent loose stool. Medication given per MAR to address loose stool with improvement reported from pt. Up with standby assistance and walker/gait belt. Pt's significant other brought home catheter supplies and pt was able to self-catheterize (per baseline) with RN standby assistance. Oral sores and lips noted to be scabbed, RN provided assistance with oral hygiene and moisturizing of lips to increase comfort. Pt reported pain in mouth/throat, refused pain relief as offered per MAR. Able to eat and drink during shift, reporting increased oral discomfort after meals. Pt appears to be resting at end of shift with family at bedside and call light within reach. RN handed off care at approximately 1530.
[2024-05-16 19:00] VITALS: BP 140/70; PULSE 72; RESP 19; TEMP 37.1; O2SAT 99
[2024-05-16] MEDS: MELATONIN 3 MG TABLET PO (20:42)
[2024-05-16] MEDS: SODIUM CHLORIDE 0.9 % (FLUSH) 10 ML SYRINGE 5 ML IVF (20:43)
--- NOTE | 2024-05-16 22:08 | PC.NURSE ---
End of Shift ([id number]): Patient pleasant and cooperative. Afebrile. Rating pain on lips/in mouth 5/10 and declined PRN pain medication. Tolerating regular diet, patient choosing soft foods. Up with SBA and walker.
[2024-05-16 23:00] VITALS: BP 146/59; PULSE 82; RESP 20; TEMP 36.8; O2SAT 96; O2SAT 98
[2024-05-17] VITALS (12 sets, daily range): BP systolic 117–150; BP diastolic 50–63; PULSE 63–82; RESP 16–18; TEMP 36.6–37.4; O2SAT 97–100
[2024-05-17 06:47] LABS: Lactate* 0.6 mmol/L (0.5-1.9)
[2024-05-17 06:55] LABS: Basophils Percent Auto 0.9 % (0.0-3.0); Eosinophils Percent Auto 9.7 % (0.0-7.0); Hematocrit 21.8 % (33.0-51.0); Immature Granulocytes Pct Auto 0.6 %; Immature Reticulocyte Fraction 39.1 % (3.0-15.9); Lymphocytes Percent Auto 24.9 % (20-44); Mean Corpuscular HGB Conc 33 gm/dL (32-36); Mean Corpuscular Hemoglobin 31 pg (26-34); Mean Corpuscular Volume 94 fL (80-100); Monocytes Percent Auto 6.4 % (0.0-11.0); Neutrophils Percent Auto 57.5 % (42.0-72.0); RDW Coefficient of Variation % 22.8 % (11.5-15.5); Red Blood Count 2.31 m/uL (4.00-5.20); Reticulocyte Hemoglobin Equivi 35.4 pg (29.0-35.0); Reticulocyte Percent 2.3 % (0.5-2.0); Reticulocytes Absolute 0.05 # (0.03-0.08); White Blood Count* 3.29 K/uL (4.50-11.00)
--- NOTE | 2024-05-17 06:56 | PC.NURSE ---
Shift note ([id number]): Patient pleasant, alert and oriented.?Ambulates with walker, gait belt and stand by assist. Patient self-cathed easily after nurse set up and holding graduate to collect urine. Given PRN Melatonin at HS. Pt reports effective and she slept well.?
[2024-05-17 07:13] LABS: Albumin* 2.4 g/dL (3.3-5.0); Chloride* 104 mmol/L (96-114)
[2024-05-17 07:14] LABS: Potassium* 3.5 mmol/L (3.6-5.1); Sodium* 131 mmol/L (135-149)
[2024-05-17 07:16] LABS: Creatinine* 0.6 mg/dL (0.5-1.5); Estimated Glomerular Filt Rate 88 ml/min
[2024-05-17 07:17] LABS: Alanine Aminotransferase* 68 U/L (4-35); Alkaline Phosphatase* 64 U/L (40-150); Anion Gap 5 mEq/L (7-15); Aspartate Amino Transferase* 30 U/L (12-35); Bilirubin Direct* 0.2 mg/dL (0.0-0.5); Bilirubin Total* 0.4 mg/dL (0.1-1.5); Blood Urea Nitrogen* 9 mg/dL (7-30); Carbon Dioxide* 22 mmol/L (20-32); Glucose* 98 mg/dL (60-115); Total Protein* 4.6 g/dL (6.0-8.3)
[2024-05-17 07:18] LABS: Calcium* 7.1 mg/dL (8.4-10.6)
[2024-05-17 07:19] LABS: Hemoglobin* 7.2 gm/dL (12.0-16.0); Platelet Count* 48 K/uL (140-440)
[2024-05-17 07:20] LABS: C Reactive Protein* 4.7 mg/dL (0.5-1.0); INR 1.06 (0.91-1.10); Prothrombin Time 14.7 Seconds; Slide Review Reflex No
[2024-05-17 08:09] LABS: ANCA IFA Pattern None Detected (None Detected); ANCA IFA Titer <1:20 (<1:20); Myeloperoxidase (MPO) Ab, IgG 0 AU/mL (0-19); Serine Proteinase 3 Ab IgG 2 AU/mL (0-19)
[2024-05-17] MEDS: POTASSIUM PHOS/SODIUM PHOS 250 MG TABLET PO ×2 (08:47→14:29)
[2024-05-17] MEDS: NON-FORMULARY MEDICATION (Methenamine Hippurate 1 gram tablet) 1 EACH PO (08:47)
[2024-05-17] MEDS: FUROSEMIDE 20 MG TABLET PO ×2 (08:48→15:25)
[2024-05-17] MEDS: LOSARTAN POTASSIUM 50 MG TABLET PO (08:48)
[2024-05-17] MEDS: MULTIVITAMIN/MINERALS 1 TABLET 1 TAB PO (08:48)
[2024-05-17] MEDS: SODIUM CHLORIDE 0.9 % (FLUSH) 10 ML SYRINGE 5 ML IVF (08:49)
[2024-05-17] MEDS: CLOTRIMAZOLE 1 % CREAM 1 APPLIC TOPICAL (08:49)
[2024-05-17] MEDS: GENTAMICIN SULFATE 1 APPLIC TOPICAL (10:00)
--- NOTE | 2024-05-17 12:31 | PM.DS1 ---
DS: Providers Provider Date Seen: 05/17/24 Date of admission: 05/13/24 22:26 Primary care physician: Constanza Cardozo MD Admitting Clinician: René Capellan MD Consults: 05/13/24 22:26 Consult to Nutrition [CONS] Routine Comment: Reason for consult:: Miscellaneous Comment: mucositis 05/16/24 09:05 Consult to Occupational Therapy [CONS] Routine Comment: strength? coordination? Reason(s) for OT Consult:: Evaluate and Treat Any Restrictions?:: No Restrictions Consult to Physical Therapy [CONS] Urgent Comment: strength? coordination? Reason(s) for PT Consult:: Evaluate and Treat Any Restrictions?:: No Restrictions Attending Physician on discharge: Padmaja Call MD [facility] Date of Discharge: 05/17/24 DS: Diagnosis Discharge Diagnosis (1) Acquired pancytopenia: Status: Acute Problem details: -this is new to the patient -etiology not yet determined but leading the differential is drug effect from the combination of doxycycline, Plaquenil both new in the last month in the setting of chronic prednisone for years (weaned 1 month ago) and advanced age. No evidence on the peripheral smear of malignancy; no evidence of infection. Discussed case with [facility] x2- w/neg peripheral smear and slowly responsive retic count they feel likely med induced. Supportive care unless worsens; needs repeated transfusion, becomes hemodynamically unstable - transfer for bone marrow biopsy. Discussed case w/pictures with ENT - recommended vasculitis workup - which was negative No steroids at this time; keep RA complication like Felty's, or nutritional issues on differential. Reviewed CBC in December which was normal. We transfused prior to discharge. She will have close follow-up with the PCP for CBC. She will have a referral to [facility], Dr. Ferrari, in [place] -we can arrange this referral. (2) Rheumatoid arthritis: Status: Acute Problem details: -hydroxychloroquine 200 mg twice daily x 1 month. Had been on prednisone for a number of years but this was stopped after a long-term taper about 1 month ago. -holding Plaquenil; hydroxychloroquine at discharge (3) Acute mucositis: Status: Acute Problem details: -resolved. Likely caused from the relative neutropenia and dehydration/poor nutritional intake in the 2 weeks [employer] [employer]. (4) Transaminitis: Status: Acute Problem details: will follow; suspect multifactorial from the pancytopenia stress and recent wound abx (doxy) and mucositis. Improving at discharge. (5) Chronic wound: Status: Acute Problem details: entered wound care orders for her treatment that has been ongoing on the left leg; added care for the new right leg lesion with addition of clotrimazole for this one And continue home self-care and visits to the wound care clinic as she was previously (6) Breast mass, right: Status: Acute Problem details: -noted on chest CT 05/14/24 -She has known history of right pulmonary masses/nodules which are unchanged since 2021. This is a new breast specific mass noted on chest xray and CT during this admission. (7) Neurogenic bladder: Status: Acute Problem details: Self catheterization at home. DS: Summary Hospital Course Hospital Course: FINAL DIAGNOSIS/FOLLOW UP ISSUES: 1. Acquired, acute pancytopenia: Likely med induced. Likely from Plaquenil. Discussed with heme x2. Needed 2 units of packed red blood cells, 1 unit 4 days apart. Improved clinically. Will have close follow-up with PCP in the days following this discharge. Has a referral to follow-up with hematology at [facility] in [place] 2. Right breast mass: She has known history of right pulmonary masses which are unchanged since 2021. This is a new breast specific mass noted on chest xray and CT during this admission. BRIEF HOSPITAL COURSE: Patient was admitted for 5 days. Synopsis of acute inpatient issues are outlined above. Chronic medical conditions with notable findings outlined above. Essentially, we provided supportive care for her severe mucositis. This was IV Dilaudid, IV Toradol, topical lidocaine and IV fluids. This improved clinically. She was noted to have this acute pancytopenia. The peripheral smear did not indicate malignancy. This myelosuppression was thought to be related to her new Plaquenil treatment for rheumatoid arthritis. I discussed the case twice with [facility]. She was transfused 1 unit of packed red blood cells twice. At discharge her labs are relatively stable, clinically she was much improved, we felt she met criteria for discharge. Hematology agreed. They recommended short order follow-up with PCP and Hematology follow-up with Dr. Ferrari in [place]. The patient was comfortable with this plan. DISCHARGE MEDICATIONS: See Reconciled list - SIGNIFICANT CHANGES: Hold Plaquenil. Specific instructions to the patient and follow-up are outlined below. REVIEW OF SYSTEMS No new chest pain or dyspnea Pain controlled No voiding difficulties Tolerating diet challenge PHYSICAL EXAM: CONSTITUTIONAL: Conversive, good historian. A/O. Knows setting and context. GENERAL: Well-developed and in no respiratory distress. VITAL SIGNS: see record. HEENT: Sclerae are anicteric. No petechiae. CARDIAC: rhythm is regular. There is no S3 or rub. No harsh murmurs. Extremities show trace edema with symmetrical pulses. PULM: good air entry with no wheeze. NEURO: Speech is fluent. A brief neurologic exam is negative. SKIN: mucositis is much improved. PSYCHIATRIC: Euthymic. DISPOSITION: Home with significant other. Time spent on discharge 37 minutes. Status at Discharge Overall status at discharge: patient is progressing back to baseline Time Spent with Patient Time attestation: Total time spent providing and/or coordinating discharge services: Time spent: Greater than 30 minutes Exam Const: Vital Signs, click to edit/add: Vital Signs - 24 hr 05/16/24 13:34 05/16/24 15:00 05/16/24 15:00 Temperature 98.2 F 98.1 F Pulse Rate [Pulse Oximeter] 72 77 Respiratory Rate 18 18 Blood Pressure [Ri ght Arm] 143/59 H 131/52 L Pulse Oximetry 100 97 97 Oxygen Delivery Me thod Room Air Room Air Room Air 05/16/24 15:00 05/16/24 19:00 05/16/24 23:00 Temperature 98.8 F Pulse Rate [Pulse Oximeter] 77 72 Respiratory Rate 18 19 Blood Pressure [Ri ght Arm] 140/70 H Pulse Oximetry 99 98 Oxygen Delivery Me thod Room Air Room Air 05/16/24 23:00 05/17/24 03:00 05/17/24 07:00 Temperature 98.3 F 98.8 F Pulse Rate [Pulse Oximeter] 82 82 Respiratory Rate 20 18 16 Blood Pressure [Ri ght Arm] 146/59 H 150/63 H Pulse Oximetry 96 97 97 Oxygen Delivery Pr thod Room Air Room Air Room Air 05/17/24 08:03 05/17/24 11:11 Temperature 98 F 99.3 F Pulse Rate [Pulse Oximeter] 74 63 Respiratory Rate 16 18 Blood Pressure [Ri ght Arm] 135/50 L 135/57 L Pulse Oximetry 97 100 Oxygen Delivery Me thod Room Air Room Air DS: Data Data Completed and Pending Completed studies during hospitalization: Procedures Assistance with Respiratory Ventilation, Less than 24 Consecutive Hours, Continuous Positive Airway Pressure (02/28/22) Introduction of Anti-inflammatory into Peripheral Vein, Percutaneous Approach (02/28/22) Introduction of Other Gas into Respiratory Tract, Via Natural or Artificial Opening (02/28/22) Introduction of Remdesivir Anti-infective into Peripheral Vein, Percutaneous Approach, [employer] (02/28/22) Labs on day of discharge: Labs from last 24 hours 05/17/24 05/17/24 05/14/24 11:34 05:54 06:00 WBC 3.29 L RBC 2.31 L Hgb 7.2 L* Hct 21.8 L MCV 94 MCH 31 MCHC 33 RDW Coeff of Randa 22.8 H Plt Count 48 L* Neut % (Auto) 57.5 Lymph % (Auto) 24.9 [place] % (Auto) 6.4 Eos % (Auto) 9.7 H Baso % (Auto) 0.9 Neut # (Auto) 1.90 Lymph # (Auto) 0.80 L [place] # (Auto) 0.20 Eos # (Auto) 0.30 Baso # (Auto) 0.00 Abs Immat Gran (auto) 0.00 Imm/Tot Granulo (auto) 0.6 Absolute Retic 0.05 Percent Retic 2.3 H Immature Retic Fraction 39.1 H Retic Hgb Equivalent 35.4 H INR 1.06 Sodium 131 L Potassium 3.5 L Chloride 104 Carbon Dioxide 22 Anion Gap 5 L BUN 9 Creatinine 0.6 Estimated Creat Clear 31.60 Estimated GFR 88 Glucose 98 Lactate 0.6 Calcium 7.1 L Phosphorus 3.0 Total Bilirubin 0.4 Direct Bilirubin 0.2 AST 30 ALT 68 H Alkaline Phosphatase 64 C-Reactive Protein 4.7 H Serum Total Protein Pending Total Protein 4.6 L Albumin 2.4 L Albumin % Pending [id number] Pending Qadiy-[id number] Pending Beta Globulins Pending Gamma Globulins Pending Ser Monoclonal Prot 2 Pending Serum PEP EER Pending Vitamin B12 Pending RBC Fol Ronda for Serum Pending Serum Immunofixation Pending FIONA & SPEP Interp Pending ANCA Titer <1:20 Myeloperoxidase Ab 0 ANCA Pattern None Detected Serine Proteinase 3 Ab 2 Lab Acknowledgement Test Added Blood Type A Negative Antibody Screen NEGATIVE Crossmatch (AHG) See Detail Discharge Plan Discharge Disposition: Home w/ Parent or Adult Date of Admission: 05/13/24 22:26 Attending Provider on Discharge: Padmaja Call Primary Care Provider: Constanza Cardozo I Anticipated Discharge Date/Time: 05/17/24 16:00 Discharge Medications: Continued methenamine hippurate 1 gram tablet 1 g PO BID multivitamin [Multiple Vitamins] Tablet 1 tab PO QDAY aspirin [Adult Aspirin Regimen] 81 mg tablet,delayed release (DR/EC) 81 mg PO DAILY Magic Mouthwash (Lidocaine/Benadryl/Maalox) 120 mL suspension 5 ml PO Q4H PRNQty: 120 0RF Rx Instructions: Lidocaine Viscous 2 % mucosal solution 40 mL; Maalox 200 mg-200 mg-20 mg/5 mL oral suspension 40 mL; Benadryl 12.5 mg/5 mL oral elixir 40 mL; Per 120 mL SWISH AND SPIT. MAY COMPOUND IF FIRST PRODUCT IS NOT AVAILABLE. calcium carbonate-vitamin D3 [Calcium 600 with Vitamin D3] 600 mg-12.5 mcg (500 unit) capsule 1 cap PO DAILY losartan 50 mg tablet 50 mg PO DAILY furosemide 20 mg tablet 20 mg PO BID alendronate 70 mg tablet 70 mg PO SILVA Patient Comments: TAKE 1 TABLET BY MOUTH EVERY 7 DAYS ON AN EMPTY STOMACH. REMAIN UPRIGHT FOR 30 MINUTES. TAKE WITH 8 OUNCES OF WATER acetaminophen [Acetaminophen Extra Strength] 500 mg tablet 1,000 mg PO Q6H PRN prednisone 1 mg tablet 2 mg PO DAILY benzocaine 20 % gel 1 applic MUCOUS MEMBRANE QID PRN Rx Instructions: Apply 0.5 g topically to affected area(s) 4 times daily if needed for Tooth Pain (for lip pain). Apply a thin layer to affected areas inside mouth up to 4 times daily. clotrimazole 1 % cream 1 applic TOPICAL BID Rx Instructions: Apply topically to affected area(s) two times daily. Discontinued hydroxychloroquine 200 mg tablet 200 mg PO BID Discharge Orders: Discharge Order (Routine); Ordered 05/17/24 Ordered By: Padmaja Call Patient Education: Pancytopenia (DC) Additional Instructions: 1. Get your labs checked with PCP early next week (Mon, Monday preferred) 2. Also talk to Dr. Cardozo about the right breast nodule we saw on your chest CT - she will order a diagnostic mammogram and ultrasound to get more information. 3. Stay off the Plaquenil until you are seen at your followup 4. I'm referring you to Dr. Ferrari [facility] ([facility] doctor) in [facility] in the next couple of weeks. We think you became anemic and had low white blood cell count, low hemoglobin, low platelets (we call this pancytopenia) and it was likely caused by the Plaquenil and doxycycline. Dr. Ferrari will continue to look at this. Activity Level: Activity as Tolerated and No strenuous activity Discharge Diet: Regular Follow Up Appointments: Riley Marquis MD [Referring] - 05/20/24 11:15 am ([facility] for follow up and blood draw. PCP was unavailable during desired time frame ) Constanza Cardozo MD [Primary Care Provider] - () Dulce Ferrari MD [Referring] - (1-2 weeks - inpatient follow-up for pancytopenia (likely drug induced) in the setting of RA and elderly. ) Forms: [employer]ulsar Info Instructions
[2024-05-17 13:06] LABS: Vitamin B12* > 1000 pg/mL (243-894)
--- NOTE | 2024-05-17 17:21 | PC.NURSE ---
shift note: IV dc'd intact prior to dc. 1 unit of PRB's infused without s/e. pt requested lymph wraps removed prior to dc. lt l/e noted to have bruising around knee. drsg changed to lt l/e and rt l/e performed. small amount of yellow pus on drsg from lt wound. PP+. Reviewed dc instructions with pt and copies sent with pt at dc. Reviewed belongings. Home medication sent with pt belongings at [place].
[2024-05-18 18:55] LABS: Folate, Serum 8.2 ng/mL (>=5.9)
[2024-05-20 18:59] LABS: Albumin 2.24 g/dL (3.75-5.01); Alpha 1 Globulin 0.39 g/dL (0.19-0.46); Alpha 2 Globulin 0.51 g/dL (0.48-1.05); Immunofixation IFE Done; Total Protein, Serum 4.3 g/dL (6.3-8.2)
== END 2024-05-17 17:25 | disposition home or self-care (01) | DRG 809 ==
LOC: ED 21:12 → MEDSURG 21:34
PROVIDERS: Family Medicine; Admitting Provider Internal Medicine; Emergency Provider Family Medicine; PCP Family Medicine; Visit Provider Internal Medicine
DX: D61.811 Other drug-induced pancytopenia (principal); B37.0 Candidal stomatitis; E87.1 Hypo-osmolality and hyponatremia; L97.222 Non-pressure chronic ulcer of left calf with fat layer exposed; K12.30 Oral mucositis (ulcerative), unspecified; T36.4X5A Adverse effect of tetracyclines, initial encounter; T37.8X5A Adverse effect of other specified systemic anti-infectives and antiparasitics, initial encounter; M06.9 Rheumatoid arthritis, unspecified; D70.9 Neutropenia, unspecified; E86.0 Dehydration; N63.11 Unspecified lump in the right breast, upper outer quadrant; I12.9 Hypertensive chronic kidney disease with stage 1 through stage 4 chronic kidney disease, or unspecified chronic kidney disease; N18.30 Chronic kidney disease, stage 3 unspecified; D64.9 Anemia, unspecified; N31.9 Neuromuscular dysfunction of bladder, unspecified; R74.01 Elevation of levels of liver transaminase levels; Z79.899 Other long term (current) drug therapy; Z87.440 Personal history of urinary (tract) infections; R73.03 Prediabetes; Z86.14 Personal history of Methicillin resistant Staphylococcus aureus infection; Z86.718 Personal history of other venous thrombosis and embolism; Z96.82 Presence of neurostimulator; Z79.82 Long term (current) use of aspirin
CPT/HCPCS: 36415; 36430; 71046; 71260; 80053; 80069; 80076; 81001; 82248; 82607; 82728; 82746; 82784; 82803; 83036; 83516; 83520; 83540; 83550; 83605; 83735; 84100; 84155; 84165; 85025; 85045; 85610; 85651; 85730; 86140; 86334; 86850; 86900; 86901; 86922; 87070; 87081; 87086; 87449; 87493; 87631; 87899; 97161; 97165; 97535; 97597; 99284; 99285; A9153; A9270; J0131; J1171; J1450; J3010; J7030; J7042; P9016; Q9967

== ENCOUNTER 2024-05-30 10:55 | Emergency (ER) | payer MEDICARE, BC, SELFPAY ==
--- OUTSIDE RECORDS SUMMARY | 2024-05-30 10:58 | XMS_ITS | Clinical Summary ---
Author Organization [employer] Address Formerly [facility] [place] [address] Care Team Providers Care Envelope Patternmaker Name Role Phone Claudia Beto Ivan FAUST Unavailable [phone] Sharif Nunez MD Unavailable [phone] Riley Camacho MD Unavailable [phone] Constanza Cardozo MD Primary Care Provider [phone] Inga Caballero MD Unavailable [phone] Allergies Active Allergy Reactions Criticality Noted Date Comments Clonidine Hallucinations 05/03/2018 Doxycycline Atopic Dermatitis Medium 05/06/2024 Significant lip blistering/ pain Hydrocodone Vomiting 04/30/2024 Leflunomide Hallucinations 12/21/2017 Lisinopril *Unknown 05/23/2018 Increased creatinine Methotrexate *Unknown 12/21/2017 Did not feel well Opioids - Morphine Analogues Vomiting 07/13/2022 Oxycodone Vomiting,*Unknown 08/11/2011 No reaction listed in [facility] Sulfa (Sulfonamide Antibiotics) *Unknown 12/03/2015 On clinic list No reaction listed in [facility] Hydrocodone-Acetaminoph en Vomiting 10/25/2014 Medications CALCIUM CARBONATE/VITAMI [...] in 24 hrs. 0 07/15/19 18 Active aspirin (ECOTRIN) 81 mg enteric coated [...] daily. 100 Tablet 3 01/19/20 24 Active clotrimazole (LOTRIMIN) 1 % [...] times daily. 9 g 05/06/19 25 Active predniSONE (DELTASONE) 1 mg tablet Take 2 mg by mouth once daily with a meal. Take 2 mg by mouth daily Active lidocaine, viscous, 2% (XYLOCAINE) 2 % solution Swish and spit 5 mL by mouth every 4 hours if needed. Magic mouth wash - Lidocaine / Benadryl / Maalox Active gentamicin 0.1 % ointment Apply topically to affected area(s). 05/21/19 25 Active hydrOXYchloroQUI NE (PLAQUENIL) 200 mg tablet Take 1 Tablet (200 mg) by mouth in the morning and 1 Tablet (200 mg) in the evening. 0 10/09/19 22 025 Discontinu ed(*Med complete/R egimen complete/L evel of care change) predniSONE (DELTASONE) 1 mg tablet Take 2 Tablets (2 mg) by mouth once daily with a meal. 01/19/20 24 025 Discontinu ed(*Med complete/R egimen complete/L evel of care change) benzocaine, dental, (AMERICAINE; ANBESOL; ORAJEL) 20 % mucosal gel by Submucosal Injection. route. 05/14/19 025 Discontinu ed(Duplica te therapy (E-cancel not sent)) Active Problems Problem Noted Date Diagnosed Date Mass of right breast 05/19/2024 Overview (05/19/2024): 1.5 cm seen on chest CT 05/15/24. Recommended diagnostic mammo White coat syndrome with hypertension 02/13/2023 Age-related osteoporosis wit hout current pathological fracture 10/11/2022 Overview (10/11/2022): - Fosamax started 10/16/2018 for osteopenia with elevated hip fracture risk. 35 mg weekly d/t ckd - Endo E-consult at [place] 10/09/2020 with recommendation to continue fosamax for [...] She has hearing aids ([facility] in [place]). Obesity with body mass index 30 or greater 12/21 Arthritis, rheumatoid 08/17/2017 Overview (10/08/2021): RA Sees Dr. Nunez at [facility] [phone] fax [phone] Last Assessment & Plan: I went over [...] & Plan: She is here today because [facility] will not supply her with 6 catheters /day. They told her that medicare would only cover 4 catheters/day. She only has 10 catheters left and needs a supply. I contacted Verónica Escalante NP [place] [facility]. She sees her on a routine basis. She will provide Vanessa with enough catheters to get by until her order from [facility] is delivered. 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 I had sent Dr. Lopez's order and visit note to [facility] in [place]. Renay Renee will process the order and [...] Encounters Date Type Department Care Team Description 05/30/2024 Nurse Triage [facility] [address] [place] [address] Constanza Cardozo MD Leg Pain/problem 05/27/2024 10:49 AM TEST ENGINEERING MANAGER - 05/27/2024 11:59 PM TEST ENGINEERING MANAGER Hospital Encounter [facility] [address] [facility] [place] [address] Pancytopenia (HC) 05/27/2024 10:15 AM TEST ENGINEERING MANAGER Office Visit [facility] [address] [place] [address] Jamila Mckeon, COMPLIANCE PROGRAM MANAGER Consult 05/27/2024 Travel 05/23/2024 Orders Only C HIM SERVICES Scanner 1 scan: (1-Ord) INCOMING RECORDS-CT, [facility], 05/23/2024 05/23/2024 Orders Only [facility] SERVICES Scanner 1 scan: (1-Ord) INCOMING RECORDS-LABS, [facility], 05/23/2024 05/21/[address] [address] Jamila Mckeon, COMPLIANCE PROGRAM MANAGER Appointment 05/20/2024 11:15 AM TEST ENGINEERING MANAGER Office Visit [facility] [address] [place] [address] Riley Marquis MD Hospital F/U ([place], 05/13/24, mucositis) 05/20/2024 Travel 05/17/2024 Telephone [facility] [address] [place] [address] Constanza Cardozo MD Error-please disregard 05/14/2024 Orders Only C HIM SERVICES Scanner 1 scan: (1-Ord) [facility], MULTIPLE LABS, 05/14/2024 05/14/2024 Orders Only [facility] HIM SERVICES Scanner 1 scan: (1-Ord) [facility], CT CHEST W CON, 05/14/2024 05/14/2024 Orders Only C HIM SERVICES Scanner 1 scan: (1-Ord) [facility], XR CHEST 2V, 05/14/2024 05/14/2024 Lab Requisition [facility] [phone] Ebony Lee MD 05/06/2024 1:25 PM TEST ENGINEERING MANAGER Office Visit [facility] [address] [place] [address] Riley Marquis MD Follow Up (oral sores- mouthwash does not seem to help ) 05/06/2024 Travel 05/06/2024 Nurse Triage [facility] [address] [place] [address] Constanza Cardozo MD Mouth Problem 04/02/2024 2:00 PM TEST ENGINEERING MANAGER Office Visit [facility] [address] [facility] [address] [place] [address] Inga Caballero MD Consult (Hyperthyroidism ) 04/02/2024 Travel 03/06/2024 10:00 AM TEST ENGINEERING MANAGER Office Visit [facility] [address] [place] [address] Constanza Cardozo MD Derm Problem (Follow up from 02/05, Yeast infection in the groin, cleared up ) 03/06/2024 Travel 03/04/2024 Telephone [facility] [address] [place] [address] Constanza Cardozo MD Medication Management (clotrimazole (LOTRIMIN) 1 % cream) from Last 3 Months Immunizations Name Administration Dates Next Due COVID-19 VACCINE COMIRNATY (PFIZER-BIONTECH 30MCG/0.3ML) 12YO+ PFS 02/13/2024 COVID-19 VACCINE SPIKEVAX (M ODERNA 50MCG/0.5ML) 12YO+ PFS 02/13/2023 COVID-19 vaccine (Moderna 100mcg/0.5mL) PF, MDV 08/25/2021,02/23/2021,08/03/2020,2020 COVID-19 vaccine (Pfizer-Bio NTech 30mcg/0.3mL) 12YO+ BIVALENT PF, MDV 01/04/2022 DT (Age < 7 years) 07/09/2005 Influenza Virus, Unspecified 01/02/2020,12/24/19 16,01/19/2015 Influenza, High-dose Inactivated 024,01/21/2019,01/11/2018,2016,12/24/2015,01/19/2015 Influenza, High-dose Quadriv alent Inactivated 03/02/2023,01/04/2022,01/26/2021 Influenza, [...] on file Legal Sex Female 3:06 PM TEST ENGINEERING MANAGER Gender Identity Not on file Sexual Orientation Not on file Obstetrics History Last Filed Vital Signs Vital Sign Reading Time Taken Comments Blood Pressure 175/74 05/27/2024 10:06 AM TEST ENGINEERING MANAGER Pulse 77 05/27/2024 10:06 AM TEST ENGINEERING MANAGER Temperature 36.6 C (97.8 F) 05/27/2024 10:06 AM TEST ENGINEERING MANAGER Respiratory Rate 16 05/27/2024 10:06 AM TEST ENGINEERING MANAGER Oxygen Saturation 98% 05/27/2024 10:06 AM TEST ENGINEERING MANAGER Inhaled Oxygen Concentration - - Weight 61.2 kg (135 lb) 05/27/2024 10:06 AM TEST ENGINEERING MANAGER Height 155.4 cm (5' 1.18) 05/27/2024 10:06 AM Susy HOLLINS Body Mass Index 25.36 05/27/2024 10:06 AM TEST ENGINEERING MANAGER Plan of Treatment Upcoming Encounters Date Type Department Care Team (Late st Contact Info) Description 05/30/2024 2:00 PM TEST ENGINEERING MANAGER Ancillary Procedure [facility] [address] [place] [address] 05/30/2024 2:30 PM TEST ENGINEERING MANAGER Ancillary Procedure [facility] [address] [place] [address] 08/08/2024 3:00 PM CDT Office Visit [facility] [address] [place] [address] Eliseo Dias MD [address] [facility] [address] [place] [address] 04/03/2025 2:15 PM TEST ENGINEERING MANAGER Office Visit [facility] [address] [facility] [address] [place] [address] [place] [address] [place] [address] Health Maintenance Due Date Last Done Comments Zoster (shingles) series for age 50+ (1 of 2) 12/04/1989 RSV vaccine for adults or (1 - 1-dose 75+ series) 12/04/2014 Depression screening for age 12+ 01/18/2025 01/19/2024, 01/18/2023, 01/18/2023, Additional history exists Medicare Wellness for age 65+ 01/19/2025, 01/17/2023, 12/24/2021 BMI (ht and wt on same day) for age 18+ 05/27/2025 05/27/2024, 01/19/2024, 05/01/2023, Additional history exists Tetanus booster 02/02/2026 02/03/2016 Pneumococcal series for age 50+ Completed 5, 07/09/2005 Tdap Completed 02/03/2016 DEXA/DXA scan for age 65+ Completed 2022, 12/14/2020 (Verified in Care Everywhere or Patient Record) Influenza for age 65+ Completed 01/25/2024 , 03/02/2023, 01/04/2022, Additional history exists COVID-19 vaccine series Completed 02/13/20, 02/13/2023, 01/04/2022, Additional history exists Medical Devices Implanted Type Area Hand Mold Maker Device Identifier Shelf Expiration Date Model / Serial / Lot Lead Bladder 28cm Interstim Tined 3mm Spacing - [id number] Implanted:Qty: 1 on 05/04/2016 by Cesar Groves MD at [facility] N/A: Sacrum [employer] 04/25/2020 3889-28# / / [id number] Stimulator 7.7mm 14cc Interstim Ii - [id number] Implanted:Qty: 1 on 05/11/2016 by Cesar Groves MD at [facility] N/A: Sacrum [employer] 10/07/2017 3058# / / [id number] Cmnt Bone 40g Simplex P Non Atb Mv - [id number] Implanted:Qty: 2 on 07/12/2017 by Ignacio Mead MD at [facility] Right: Knee [employer] [employer] 04/26/2018 6191-1-010 # / / [id number] Cmnt Bone 40g Simplex P Non Atb Mv - [id number] Implanted:Qty: 1 on 07/12/2017 by Ignacio Mead MD at [facility] Right: Knee [employer] 04/26/2018 6191-1-010 # / / [id number] K7939-P-071 - [id number] Implanted:Qty: 1 on 07/12/2017 by Ignacio Mead MD at [facility] Right: Knee [facility] 04/27/2022 5551-G-350 / / [id number] Description:Triathlon X3 Asy mmetric patella V7442-E-147 - [id number] Implanted:Qty: 1 on 07/12/2017 by Ignacio Mead MD at [facility] Right: Knee [employer] 03/11/2022 5520-B-500 / / [id number] Description:Triathlon primar y tibial baseplate T4264-E-719 - [id number] Implanted:Qty: 1 on 07/12/2017 by Ignacio Mead MD at [facility] Right: Knee [employer] 05/21/2021 5510-F-502 / / [id number] Description:Triathlon crucia te retaining femoral H9601-R-566 - [id number] Implanted:Qty: 1 on 07/12/2017 by Ignacio Mead MD at [facility] Right: Knee 5531-G-50 9 / / [id number] Description:X3 triathlon CS INS Explanted Type Area Hand Mold Maker Device Identifier Shelf Expiration Date Model / Serial / Lot Lead Intrdcr Bladder Interstim - [id number] Explanted:Qty: 1 on 05/04/2016 by Cesar Groves MD at [facility] N/A: Sacrum [employer] 05/27/2017 3550-18# / / [id number] Procedures Procedure Name Priority Date/Time Associated Diagnosis Comments RED CELL MORPHOLOGY Timed 05/27/2024 1 1:00 AM TEST ENGINEERING MANAGER Pancytopenia (HC) PLATELET ESTIMATE Timed 05/27/2024 11: 00 AM TEST ENGINEERING MANAGER Pancytopenia (HC) MANUAL DIFFERENTIAL Timed 05/27/2024 1 1:00 AM TEST ENGINEERING MANAGER Pancytopenia (HC) CBC WITH AUTO DIFFERENTIAL Timed 05/27/2024 11:00 AM TEST ENGINEERING MANAGER Pancytopenia (HC) FERRITIN Today 05/27/2024 11:00 AM TEST ENGINEERING MANAGER Pancytopenia (HC) IRON PLUS IRON BINDING CAP Today 05/27/2024 11:00 AM TEST ENGINEERING MANAGER Pancytopenia (HC) HEPATIC FUNCTION PANEL Today 11:00 AM TEST ENGINEERING MANAGER Pancytopenia (HC) BASIC METABOLIC PANEL Today 05/27/2024 11:00 AM TEST ENGINEERING MANAGER Pancytopenia (HC) RETICULOCYTES Today 05/27/2024 11:00 AM TEST ENGINEERING MANAGER Pancytopenia (HC) CBC WITH AUTO DIFFERENTIAL Today 05/27/2024 11:00 AM TEST ENGINEERING MANAGER Pancytopenia (HC) SCAN CORRESP-LABORATORY RESULTS 05/23/2024 12:00 AM TEST ENGINEERING MANAGER SCAN CORRESP-IMAGING 05/23/2024 12:00 AM TEST ENGINEERING MANAGER CBC WITH AUTO DIFFERENTIAL Routine 05/20/2024 12:19 PM TEST ENGINEERING MANAGER Pancytopenia (HC) SCAN-LABORATORY REPORT 12:00 AM TEST ENGINEERING MANAGER SCAN-CT INTERPRETATION 12:00 AM TEST ENGINEERING MANAGER SCAN-RADIOLOGY REPORT 05/14/2024 12:00 AM TEST ENGINEERING MANAGER LAB TRACKING EVENT Routine 05/13/2024 7: 30 PM TEST ENGINEERING MANAGER PERIPHERAL BLD MORPHOLOGY Routine 05/13/2024 7:30 PM TEST ENGINEERING MANAGER XR DXA BONE DENSITY 2 SITES AXIAL Routine 10/06/2022 10:59 AM CDT Age-related osteoporosis without current pathological fracture from Last 3 Months or Most Recently Relevant to Health Maintenance Results * (ABNORMAL) CBC WITH AUTO DIFFERENTIAL (05/27/2024 11:00 AM TEST ENGINEERING MANAGER) WHITE BLOOD COUNT 5.0 4.5 - 11.0 thou/cu mm 05/27/2024 12:03 PM TEST ENGINEERING MANAGER [facility] RED BLOOD COUNT 3.42(L) 4.00 - 5.20 mil/cu mm 05/27/2024 12:03 PM TEST ENGINEERING MANAGER [facility] HEMOGLOBIN 10.6(L) 12.0 - 16.0 g/dL 05/27/2024 12:03 PM [facility] HEMATOCRIT 33.5 33.0 - 51.0 % 05/27/2024 12:03 PM [facility] MCV 98 80 - 100 fL 05/27/2024 12:03 PM [facility] MCH 31.0 26.0 - 34.0 pg 05/27/2024 12:03 PM [facility] MCHC 31.6(L) 32.0 - 36.0 g/dL 05/27/2024 12:03 PM [facility] RDW 22.6(H) 11.5 - 15.5 % 05/27/2024 12:03 PM [facility] PLATELET COUNT 843(H) 140 - 440 thou/cu mm 05/27/2024 12:03 PM [facility] MPV 8.4 6.5 - 11.0 fL 05/27/2024 12:03 PM [facility] Blood BLOOD SPECIMEN / Unknown Venipuncture / Unknown 05/27/2024 11:00 AM TEST ENGINEERING MANAGER 05/27/2024 11:01 AM [facility]ORATORY - 05/27/2024 12:03 PM TEST ENGINEERING MANAGER This procedure was originally ordered at [facility]. This procedure was originally ordered at [facility]. This procedure was originally ordered at [facility]. Jamila Mckeon NP HEMATOLOGY Final Result [facility] [address] [place] [address] * (ABNORMAL) RED CELL MORPHOLOGY (05/27/2024 11:00 AM TEST ENGINEERING MANAGER) ACANTHOCYTES Few 05/27/2024 12:03 PM [facility] ELLIPTOCYTES Few 05/27/2024 12:03 PM [facility] RBC COMMENT Present(A ) RBC morphology appears normal, RBC morphology within normal limits for newborns. 05/27/2024 12:03 PM [facility] Blood BLOOD SPECIMEN / Unknown Venipuncture / Unknown 05/27/2024 11:00 AM TEST ENGINEERING MANAGER 05/27/2024 11:01 AM TEST ENGINEERING MANAGER [facility] LABORATORY - 05/27/2024 12:03 PM TEST ENGINEERING MANAGER This procedure was originally ordered at [facility]. This procedure was originally ordered at [facility]. This procedure was originally ordered at [facility]. Jamila Mckeon NP HEMATOLOGY Final Result Performing Organization Address [facility] de Phone Number [facility] [address] [place] [address] * (ABNORMAL) PLATELET ESTIMATE (05/27/2024 11:00 AM TEST ENGINEERING MANAGER) Pathologist [facility] PLATELET ESTIMATE Increased (A) Adequate, No estimate 05/27/2024 12:03 PM [facility] Blood BLOOD SPECIMEN / Unknown Venipuncture / Unknown 05/27/2024 11:00 AM TEST ENGINEERING MANAGER 05/27/2024 11:01 AM [facility] LABORATORY - 05/27/2024 12:03 PM TEST ENGINEERING MANAGER This procedure was originally ordered at [facility]. This procedure was originally ordered at [facility]. This procedure was originally ordered at [facility]. Jamila Mckeon NP HEMATOLOGY Final Result Performing Organization Address [facility] de Phone Number [facility] [address] [place] [address] * MANUAL DIFFERENTIAL (05/27/2024 11:00 AM TEST ENGINEERING MANAGER) % NEUTROPHILS 63.0 % 05/27/2024 12:03 PM [facility] % LYMPHOCYTES 28.0 % 05/27/2024 12:03 PM [facility] % MONOCYTES 4.0 % 05/27/2024 12:03 PM [facility] % EOSINOPHILS 2.0 % 05/27/2024 12:03 PM [facility] % BASOPHILS 3.0 % 05/27/2024 12:03 PM [facility] NEUTROPHILS ABSOLUTE 3.2 1.7 - 7.0 thou/cu mm 05/27/2024 12:03 PM [facility] LYMPHOCYTES ABSOLUTE 1.4 0.9 - 2.9 thou/cu mm 05/27/2024 12:03 PM [facility] MONOCYTES ABSOLUTE 0.2 <0.9 thou/cu mm 05/27/2024 12:03 PM [facility] EOSINOPHILS ABSOLUTE 0.1 <0.5 thou/cu mm 05/27/2024 12:03 PM [facility] BASOPHILS ABSOLUTE 0.2 <0.3 thou/cu mm 05/27/2024 12:03 PM [facility] Blood BLOOD SPECIMEN / Unknown Venipuncture / Unknown 05/27/2024 11:00 AM [facility] 05/27/2024 11:01 AM [facility] LABORATORY - 05/27/2024 12:03 PM [facility] This procedure was originally ordered at [facility]. This procedure was originally ordered at [facility]. This procedure was originally ordered at [facility]. Jamila Mckeon NP HEMATOLOGY Final Result [facility] [address] [place] [id number] * (ABNORMAL) IRON PLUS IRON BINDING CAP (05/27/2024 11:00 AM [facility]) IRON 93 37 - 145 ug/dL 05/28/2024 1:34 AM [facility] LAB[facility] UIBC (UNSATURATED) 110(L) 112 - 347 ug/dL 05/28/2024 1:34 AM [facility] LAB[facility] IRON BINDING CAPACITY 203(L) 250 - 400 ug/dL 05/28/2024 1:34 AM [facility] LAB[facility]ORY IRON,% SATURATION 46 14 - 50 % 05/28/2024 1:34 AM TEST ENGINEERING MANAGER [facility] TR[facility] LABORATORY Blood BLOOD SPECIMEN / Unknown Venipuncture / Unknown 05/27/2024 11:00 AM TEST ENGINEERING MANAGER 05/27/2024 11:01 AM TEST ENGINEERING MANAGER us Jamila L Jayney COMPLIANCE PROGRAM MANAGER CHEMISTRY Final Result Performing Organization Address [facility] Co de Phone Number [facility] [address] [address], [place] * RETICULOCYTES (05/27/2024 11:00 AM TEST ENGINEERING MANAGER) RETIC% 1.5 0.5 - 1.5 % 05/27/2024 10:56 PM TEST ENGINEERING MANAGER [facility] RETIC (ABSOLUTE) 0.05 0.03 - 0.08 mil/cu mm 05/27/2024 10:56 PM TEST ENGINEERING MANAGER [facility] Blood BLOOD SPECIMEN / Unknown Venipuncture / Unknown 05/27/2024 11:00 AM TEST ENGINEERING MANAGER 05/27/2024 11:01 AM TEST ENGINEERING MANAGER Narrative [facility] - 05/27/2024 10:56 PM TEST ENGINEERING MANAGER This procedure was originally ordered at [facility]. us Jamila Mckeon COMPLIANCE PROGRAM MANAGER HEMATOLOGY Final Result Performing Organization Address [facility] Phone Number [facility] [address] [address], [place] * (ABNORMAL) FERRITIN (05/27/2024 11:00 AM TEST ENGINEERING MANAGER) FERRITIN 1,217.0(H) 15.0 - 150.0 ng/mL 05/28/2024 1:35 AM TEST ENGINEERING MANAGER [facility] Blood BLOOD SPECIMEN / Unknown Venipuncture / Unknown 05/27/2024 11:00 AM TEST ENGINEERING MANAGER 05/27/2024 11:01 AM TEST ENGINEERING MANAGER us Jamila L Selly COMPLIANCE PROGRAM MANAGER CHEMISTRY Final Result Performing Organization Address [facility] Co de Phone Number [facility] [address] [place] [address], [place] * (ABNORMAL) HEPATIC FUNCTION PANEL (05/27/2024 11:00 AM [facility]) ALBUMIN 3.9(L) 4.0 - 4.9 g/dL 05/27/2024 11:27 AM [facility] PROTEIN,TOTAL 6.7 6.0 - 8.0 g/dL 05/27/2024 11:27 AM [facility] BILIRUBIN,TOTAL 0.3 0.0 - 1.2 mg/dL 05/27/2024 11:27 AM [facility] BILIRUBIN,DIRECT 0.2 0.0 - 0.2 mg/dL 05/27/2024 11:27 AM [facility] BILIRUBIN,INDIRE CT 0.1(L) 0.2 - 0.8 mg/dL 05/27/2024 11:27 AM [facility] ALK PHOSPHATASE 97 35 - 104 IU/L 05/27/2024 11:27 AM [facility] ALT (SGPT) 43(H) 10 - 35 IU/L 05/27/2024 11:27 AM [facility] AST (SGOT) 52(H) 10 - 35 IU/L 05/27/2024 11:27 AM [facility] Blood BLOOD SPECIMEN / Unknown Venipuncture / Unknown 05/27/2024 11:00 AM TEST ENGINEERING MANAGER 05/27/2024 11:01 AM [facility] us Jamila Mckeon NP CHEMISTRY Final Result [facility] [address] [place] [address] * (ABNORMAL) BASIC METABOLIC PANEL (05/27/2024 11:00 AM [facility]) Pathologist [facility] SODIUM 139 136 - 145 mmol/L 05/27/2024 11:27 AM [facility] POTASSIUM 4.1 3.5 - 5.1 mmol/L 05/27/2024 11:27 AM [facility] CHLORIDE 103 98 - 107 mmol/L 05/27/2024 11:27 AM [facility] CO2,TOTAL 25 22 - 29 mmol/L 05/27/2024 11:27 AM [facility] ANION GAP 11 5 - 18 05/27/2024 11:27 AM [facility] GLUCOSE 110(H) 70 - 99 mg/dL 05/27/2024 11:27 AM [facility] CALCIUM 9.0 8.8 - 10.4 mg/dL 05/27/2024 11:27 AM [facility] Comment: Reference ranges for this test were updated on 01/30/2024 to reflect our healthy population more accurately. Reference range changes are not retroactively applied to results, but previous results using the same methodology can be interpreted in the context of the new reference range. BUN 21 8 - 23 mg/dL 05/27/2024 11:27 AM [facility] CREATININE 0.90 0.50 - 0.90 mg/dL 05/27/2024 11:27 AM [facility] BUN/CREAT RATIO 23(H) 10 - 20 11:27 AM [facility] eGFR 63(L) >90 mL/min/1. 73m2 05/27/2024 11:27 AM [facility] Comment:As of 2021, eG FR is calculated by the CKD-EPI creatinine equation without race adjustment. eGFR can be influenced by muscle mass, exercise, and diet. The reported eGFR is an estimation only and is only applicable if the renal function is stable. Blood BLOOD SPECIMEN / Unknown Venipuncture / Unknown 05/27/2024 11:00 AM TEST ENGINEERING MANAGER 05/27/2024 11:01 AM TEST ENGINEERING MANAGER us Jamila Mckeon NP CHEMISTRY Final Result [facility] [address] [place] [address] * SCAN CORRESP-LABORATORY RESULTS (05/23/2024 12:00 AM TEST ENGINEERING MANAGER) us Scanner OTHER Final Result * SCAN CORRESP-IMAGING (05/23/2024 12:00 AM TEST ENGINEERING MANAGER) Anatomical Region Laterality Modality Other us Scanner OTHER Final Result * (ABNORMAL) CBC AND DIFFERENTIAL (05/20/2024 12:19 PM TEST ENGINEERING MANAGER) WHITE BLOOD CELL COUNT 5.2 3.8 - 10.8 Thousand/u L [facility] RED BLOOD CELL COUNT 3.26(L) 3.80 - 5.10 Million/uL [facility] HEMOGLOBIN 10.1(L) 11.7 - 15.5 g/dL [facility] [facility] HEMATOCRIT 30.3(L) 35.0 - 45.0 % [facility] MCV 92.9 80.0 - 100.0 fL [facility] MCH 31.0 27.0 - 33.0 pg [facility] MCHC 33.3 32.0 - 36.0 g/dL [facility] Comment: For adults, a slight decrease in the calculated MCHC value (in the range of 30 to 32 g/dL) is most likely not clinically significant; however, it should be interpreted with caution in correlation with other red cell parameters and the patient's clinical condition. RDW 19.9(H) 11.0 - 15.0 % [facility] PLATELET COUNT 458(H) 140 - 400 Thousand/u L [facility] MPV 10.2 7.5 - 12.5 fL [facility] ABSOLUTE NEUTROPHILS 2,241 1,500 - 7,800 cells/uL [facility] ABSOLUTE LYMPHOCYTES 1,612 850 - 3,900 cells/uL [facility] ABSOLUTE MONOCYTES 848 200 - 950 cells/uL [facility] ABSOLUTE EOSINOPHILS 359 15 - 500 cells/uL [facility] ABSOLUTE BASOPHILS 140 0 - 200 cells/uL [facility] NEUTROPHILS 43.1 % [facility] LYMPHOCYTES 31.0 % [facility] MONOCYTES 16.3 % [facility] EOSINOPHILS 6.9 % [facility] BASOPHILS 2.7 % [facility] Blood BLOOD SPECIMEN / Unknown 05/20/2024 12:19 PM TEST ENGINEERING MANAGER 05/20/2024 12:21 PM TEST ENGINEERING MANAGER us Riley Marquis MD HEMATOLOGY Final Result [facility] [address] [place] [address], [facility] [address] [place] [address] * SCAN-RADIOLOGY REPORT (05/14/2024 12:00 AM TEST ENGINEERING MANAGER) Anatomical Region Laterality Modality Other us Scanner OTHER Final Result * SCAN-LABORATORY REPORT (05/14/2024 12:00 AM TEST ENGINEERING MANAGER) us Scanner OTHER Final Result * SCAN-CT INTERPRETATION (05/14/2024 12:00 AM TEST ENGINEERING MANAGER) Anatomical Region Laterality Modality Other us Scanner OTHER Final Result * LAB TRACKING EVENT (05/13/2024 7:30 PM TEST ENGINEERING MANAGER) Other (Other) Client Collect / Unknown 05/13/2024 7:30 PM TEST ENGINEERING MANAGER 05/14/2024 10:14 PM TEST ENGINEERING MANAGER us Ebony Lee MD LAB BILL ONLY Final Result [facility] [address] [place] [address], [place] * PERIPHERAL BLD MORPHOLOGY (05/13/2024 7:30 PM TEST ENGINEERING MANAGER) Case Report Special Hematology Report Case: [id number] Authorizing Provider: Ebony Lee, Collected: 05/13/20241929 Ordering Location: [facility] Received: 05/15/2024 0718 Pathologist: Ignacio Trammell MD Specimen: Peripheral Blood 05/20/2024 12:37 PM TEST ENGINEERING MANAGER [facility] [facility] LABORATORY-C ENTRAL LABORATORY Amendment 05/20/2024 - Absolute lymphocyte count corrected. 05/20/2024 12:37 PM TEST ENGINEERING MANAGER [facility] MD[facility] LABORATORY-C ENTRAL LABORATORY Final Diagnosis PERIPHERAL BLOOD: 1. Moderate normocytic anemia 2. Moderate thrombocytopenia 3. Leukopenia with normal differential counts 4. See comment 05/20/2024 12:37 PM TEST ENGINEERING MANAGER [facility] Amendment electronically signed by Ignacio Trammell MD on 05/20/2024 at 12:37 PM Comment The specific etiology of the anemia and thrombocytopenia are not apparent from the blood smear findings. It is unclear whether they are related or independent of one another. Normocytic anemia may be associated with a variety of conditions, including anemia of chronic disease, anemia of renal insufficiency, hypothyroidism, active bleeding, early iron deficiency and medication effect. There are no features to suggest hemolysis. Thrombocytopenia may be secondary to medication effect, immune-mediated processes, hypersplenism and may be transient in settings of infection (bacterial or viral). There is no evidence of platelet clumping. There are no features to suggest a primary bone marrow disorder on this smear review. This case was also reviewed by Destiny Hylton MT, ([facility]). 05/20/2024 12:[address] [facility] MD.[facility] LABORATORY-C ENTRAL LABORATORY Clinical Information The patient is not 83-year-old female. Per CBC scan: Anemia, leukopenia, and thrombocytopenia. Per EPIC: Additional history includes hypertension, rheumatoid arthritis, and hypertensive kidney disease. She is currently receiving prednisone. 05/20/2024 12:37 PM TEST ENGINEERING MANAGER [facility]- ENTRAL LABORATORY CBC and Differential HEMATOLOGY PARAMETERS Tested at: [facility] Laboratory-Central Laboratory RESULTS EXPECTED VALUES WBC: 3.0 4.5-61r6286/cumm DECREASED RBC: 2.25 4.00-5.20 mil/cummDECREASED HGB: 7.4 12-16 gm/dl DECREASED HCT: 21.9 33-51% DECREASED MCV: 97.0 80-100 fl NORMOCYTIC MCH: 32.9 26-34 pg MCHC: 33.8 32-36 gm/dl NORMOCHROMIC RDW: 232 11.5-15.5% ELEVATED PLT: 69 [id number]/uL DECREASED Retic: 0.5 0.5-1.5% Differential Absolute (%) Expected (%) (x10*9/L) (x10*9/L) Neutrophils: 1.9932 (66) 1.7-7.0 (42-72%) Lymphocytes: 0.8758 (29) 0.9-2.9 (20-44%) DECREASED Eosinophils: 0.1 (3.3) <0.5 (0-2%) 05/20/2024 12:37 PM TEST ENGINEERING MANAGER [facility] MD.[facility] LABORATORY- ENTRAL LABORATORY Microscopic Description The final diagnosis is based on microscopic examination of an appropriately stained blood smear. 05/20/2024 12:37 PM TEST ENGINEERING MANAGER [facility] LABORATORY- ENTRDE LABORATORY Additional Information Interpreted at [facility], Central Laboratory - [address] [place] [address] 05/20/2024 12:37 PM TEST ENGINEERING MANAGER [facility] Blood (Peripheral Blood) 05/13/2024 7:30 PM TEST ENGINEERING MANAGER 05/15/2024 7:18 AM TEST ENGINEERING MANAGER Ebony Lee MD HEMATOLOGY Edited Result - Final [facility] [address] [place] [address], * (ABNORMAL) XR DXA BONE DENSITY 2 [...] greater than 5 years. Na Valdivia PA-C [facility] 10/11/2022 Narrative 10/11/2022 2:15 PM CDT For Patients: Results are automatically released to your [facility] ([employer]) account once available, in compliance with federal regulations. This means that you may see your results before your provider has had a chance to review them. Please allow 2-3 business days for your provider to comment on the results. XR DXA Bone Mineral Density (BMD) EXAM LOCATION: [facility] [address] [facility] [address] PATIENT NAME: Vanessa Andino DATE OF : [...] two scanners are made by the same numberer and wirer. PROCEDURE: Dual-energy x-ray absorptiometry performed with routine [...] Most Recently Relevant to Health Maintenance [place] [address] [place] [address] [employer] MEDICARE ADVANTAGE MEDICARE PART A HB ONLY [place] BLUE HB ONLY MEDICARE PART B HB ONLY [place] BLUE MR PB ONLY Advance Directives Documents on File Type Date Recorded Patient Transportation Project Manager Expl anation POLST 07/14/2017 8:01 AM 01/12/2017 Power of Radio Interference Expert 07/14/2017 7:57 AM 01/06 Healthcare Directive 07/14/2017 7:57 AM * Full Code (Latest Code Status on File) Date Activated Date Inactivated Comments 07/12/2017 7:10 AM 07/14/2017 4:57 PM * Full Code Date Activated Date Inactivated Comments 05/11/2016 10:33 AM 05/11/2016 7:12 PM * Full Code Date Activated Date Inactivated Comments 05/04/2016 7:01 AM 05/04/2016 3:07 PM Care Teams Envelope Patternmaker Relationship Specialty Start Date End Date Constanza Cardozo MD [address] [place] [address] PCP - General Family Practice 08/25/22 Claudia, CHRISTIANNE Wang Correctional Supply Supervisor 07/13/17 Sharif Nunez MD [address] [facility] [address] [facility] [address] [place] [address] Rheumatology 10/08/21 Riley Camacho MD [address] [place] [address] Surgery - Urology 08/25/22 [place] [address] [place] [address] Endocrinology Endocrinology 04/02/24
--- OUTSIDE RECORDS SUMMARY | 2024-05-30 10:58 | XMS_ITS | Continuity of Care Document ---
Author Organization [facility] Address [address] [place] [address] Phone Care Team Providers Care Stove Polisher Name Role Phone Sharif Nunez MD Unavailable [...] Protein Dna Antibody, Single Strand Dna Antibody, [place] Nuclear Antigen Antibodies CCP Antibody Lyme Disease [...] Est [facility] , [address], [place], [address], [place] tel:[phone] [facility] , Follow Up of Seropositive rheumatoid arthritis (chief complaint)Os teoporosis (chief complaint)Os teoarthritis (chief complaint) Rheumatoid arthritis with rheumatoid factor of multiple sites without organ or systems involvementA ge-related osteoporosis without current pathological fractureLong term (current) use of systemic steroidsOthe r fpc (current) drug therapyCellu litis of left lower limb 4 Mayra Olguin. [facility] [address], [place], [address], [place]. tel:[phone] Referring Provider: Sharif Phipps, [facility] [address], [place], [address]. tel:[phone] Office/Outpa tient Visit, Est [facility] , [address], [place], [address], [place] tel:[phone] [facility] , Follow Up of Seropositive rheumatoid arthritis (chief complaint)Os teoporosis (chief complaint)Os teoarthritis (chief complaint) Rheumatoid arthritis with rheumatoid factor of multiple sites without organ or systems involvementA ge-related osteoporosis without current pathological fractureLong term (current) use of systemic steroidsOthe r fpc (current) drug therapyCellu litis of left lower limb 4 Mayra Olguin. [facility] [address], [place], [address], [place]. tel:[phone] Referring Provider: Sharif Phipps, [facility] [address], [place], [address]. tel:[phone] [facility] , [address], [place], [address], [place] tel:[phone] [facility] , No Information 4 Mayra Olguin. [facility] [address], [place], [address], [place]. tel:[phone] Office/Outpa tient Visit, Est [facility] , [address], [place], [address], [place] tel:[phone] [facility] , Follow Up of Seropositive rheumatoid arthritis (chief complaint)Os teoporosis (chief complaint)Os teoarthritis (chief complaint) Rheumatoid arthritis with rheumatoid factor of multiple sites without organ or systems involvementA ge-related osteoporosis without current pathological fractureLong term (current) use of systemic steroidsOthe r fpc (current) drug therapyCellu litis of left lower limb 4 Mayra Olguin. [facility] [address], [place], [address], [place]. tel:[phone] Referring Provider: Sharif Phipps, [facility] [address], [place], [address]. [phone] Office/Outpa tient Visit, Est [facility] , [address], [place], [address], [place] tel:[phone] [facility] , Follow Up of Seropositive rheumatoid arthritis (chief complaint)Os teoporosis (chief complaint)Os teoarthritis (chief complaint) Rheumatoid arthritis with rheumatoid factor of multiple sites without organ or systems involvementA ge-related osteoporosis without current pathological fractureLong term (current) use of systemic steroidsOthe r fpc (current) drug therapyCellu litis of left lower limb 4 Mayra Olguin. [facility] [address], [place], [address], [place]. tel:[phone] Referring Provider: Sharif Phipps, [facility] [address], [place], [address]. tel:[phone] Office/Outpa tient Visit, Est [facility] , [address], [place], [address], [place] tel:[phone] [facility] , Follow Up of Seropositive rheumatoid arthritis (chief complaint)Os teoporosis (chief complaint)Os teoarthritis (chief complaint) Rheumatoid arthritis with rheumatoid factor of multiple sites without organ or systems involvementA ge-related osteoporosis without current pathological fractureLong term (current) use of systemic steroidsOthe r fpc (current) drug therapyCellu litis of left lower limb 3 Mayra Olguin. [facility] [address], [place], [address], [place]. tel:[phone] Referring Provider: Sharif Phipps, [facility] [address], [place], [address]. tel:[phone] Office/Outpa tient Visit, Est [facility] , [address], [place], [address], [place] tel:[phone] [facility] , Follow Up of Seropositive rheumatoid arthritis (chief complaint)Os teoporosis (chief complaint)Os teoarthritis (chief complaint) Rheumatoid arthritis with rheumatoid factor of multiple sites without organ or systems involvementO ther low back painAge-rela sheryl osteoporosis without current pathological fractureLong term (current) use of systemic steroidsOthe r fpc (current) drug therapy 3 Mayra Olguin. [facility] [address], [place], [address], [place]. tel:[phone] Referring Provider: Sharif Phipps, [facility] [address], [place], [address]. tel:[phone] Office/Outpa tient Visit, Est [facility] , [address], [place], [address], [place] tel:[phone] [facility] , Follow Up of Seropositive rheumatoid arthritis (chief complaint)Os teoporosis (chief complaint)Os teoarthritis (chief complaint) Rheumatoid arthritis with rheumatoid factor of multiple sites without organ or systems involvementO ther low back painAge-rela sheryl osteoporosis without current pathological fractureLong term (current) use of systemic steroidsOthe r fpc (current) drug therapy 3 Mayra Olguin. [facility] [address], [place], [address], [place]. tel:[phone] Referring Provider: Sharif Phipps, [facility] , [facility] [address], [place], [address]. tel:[phone] Office/Outpa tient Visit, Est [facility] , [address], [place], [address], [place] tel:[phone] [facility] , Follow Up of Seropositive rheumatoid arthritis (chief complaint)Os teoporosis (chief complaint)Os teoarthritis (chief complaint) Rheumatoid arthritis with rheumatoid factor of multiple sites without organ or systems involvementO ther low back painAge-rela sheryl osteoporosis without current pathological fractureLong term (current) use of systemic steroidsOthe r fpc (current) drug therapy 3 Mayra Olguin. [facility] [address], [place], [address], [place]. tel:[phone] Referring Provider: Sharif Phipps, [facility] [address], [place], [address]. tel:[phone] Office/Outpa tient Visit, Est [facility] , [address], [place], [address], [place] tel:[phone] [facility] , Follow Up of Seropositive rheumatoid arthritis (chief complaint)Os teoporosis (chief complaint)Os teoarthritis (chief complaint) Rheumatoid arthritis with rheumatoid factor of multiple sites without organ or systems involvementO ther low back painAge-rela sheryl osteoporosis without current pathological fractureLong term (current) use of systemic steroidsOthe r fpc (current) drug therapy 2 Mayra Olguin. [facility] [address], [place], [address], [place]. tel:[phone] Referring Provider: Sharif Phipps, [facility] [address], [place], [address]. tel:[phone] Office/Outpa tient Visit, Est [facility] , [address], [place], [address], [place] tel:[phone] [facility] , Follow Up of Seropositive rheumatoid arthritis (chief complaint)Os teoporosis (chief complaint)Os teoarthritis (chief complaint) Rheumatoid arthritis with rheumatoid factor of multiple sites without organ or systems involvementO ther low back painAge-rela sheryl osteoporosis without current pathological fractureLong term (current) use of systemic steroidsOthe r fpc (current) drug therapy 2 Mayra Olguin. [facility] [address], [place], [address], [place]. tel:[phone] Referring Provider: Sharif Phipps, [facility] [address], [place], [address]. tel:[phone] Office/Outpa tient Visit, Est [facility] , [address], [place], [address], [place] tel:[phone] [facility] , Follow Up of Seropositive rheumatoid arthritis (chief complaint)Os teoporosis (chief complaint)Os teoarthritis (chief complaint) Rheumatoid arthritis with rheumatoid factor of multiple sites without organ or systems involvementA ge-related osteoporosis without current pathological fractureLong term (current) use of systemic steroidsOthe r fpc (current) drug therapyOther low back pain Mar-0 3-202 2 Mayra Mcdonald [facility] [address], [place], [address], [place]. tel:[phone] Referring Provider: Sharif Phipps, [facility] [address], [place], [address]. tel:[phone] Office/Outpa tient Visit, Est [facility] , [address], [place], [address], [place] tel:[phone] [facility] , Follow Up of Seropositive rheumatoid arthritis (chief complaint)Os teoporosis (chief complaint)Os teoarthritis (chief complaint) Rheumatoid arthritis with rheumatoid factor of multiple sites without organ or systems involvementH allucination Eric-related osteoporosis without current pathological fractureOthe r fpc (current) drug therapyLong term (current) use of systemic steroids 1 Mayra Mcdonald [facility] , [facility] [address], [place], [address], [place]. tel:[phone] Referring Provider: Sharif Phipps, [facility] [address], [place], [address]. tel:[phone] Office/Outpa tient Visit, Est [facility] , [address], [place], [address], [place] tel:[phone] [facility] , Follow Up of Seropositive rheumatoid arthritis (chief complaint)Os teoporosis (chief complaint)Os teoarthritis (chief complaint) Rheumatoid arthritis with rheumatoid factor of multiple sites without organ or systems involvementH allucination Eric-related osteoporosis without current pathological fractureOthe r fpc (current) drug therapyLong term (current) use of systemic steroids 1 Mayra Mcdonald [facility] , [facility] [address], [place], [address], [place]. tel:[phone] Referring Provider: Sharif Phipps, [facility] , [facility] [address], [place], [address]. tel:[phone] Office/Outpa tient Visit, Est [facility] , [address], [place], [address], [place] tel:[phone] [facility] , Follow Up of Seropositive rheumatoid arthritis (chief complaint)Os teoporosis (chief complaint) Rheumatoid arthritis with rheumatoid factor of multiple sites without organ or systems involvementO ther fpc (current) drug therapyLong term (current) use of systemic steroidsAge- related osteoporosis without current pathological fracture 1 Mayra Olguin. [facility] , [facility] [address], [place], [address], [place]. tel:[phone] Referring Provider: Sharif Phipps, [facility] , [facility] [address], [place], [address]. tel:[phone] Office/Outpa tient Visit, Est [facility] , [address], [place], [address], [place] tel:[phone] [facility] , Follow [...] P[facility]., [address], [place], [address], [place]. tel:[phone] Referring Provider: Sharif Phipps, [facility] , [facility] [address], [place], [address]. tel:[phone] Office/Outpa tient Visit, Est [facility] , [address], [place], [address], [place] tel:[phone] [facility] , Follow Up of Seropositive rheumatoid arthritis (chief complaint) Rheumatoid arthritis with rheumatoid factor of multiple sites without organ or systems involvementO ther fpc (current) drug therapyLong term (current) use of systemic steroids 0 Mayra Olguin. [facility] , [facility] [address], [place], [address], [place]. tel:[phone] Referring Provider: Sharif Phipps, [facility] , [facility] [address], [place], [address]. tel:[phone] Office/Outpa tient Visit, Est [facility] , [address], [place], [address], [place] tel:[phone] [facility] , Follow Up of seropositive rheumatoid arthritis (chief complaint) Rheu arthritis w rheu factor mult site w/o org/sys involvAge-re lated osteoporosis w/o current pathological fractureOthe r supervisor intermediates (current) drug therapyLong term (current) use of systemic steroids 0 Mayra Mcdonald [facility] [address], [place], [address], [place]. tel:[phone] Referring Provider: Sharif Phipps, [facility] [address], [place], [address]. tel:[phone] Office/Outpa tient Visit, Est [facility] , [address], [place], [address], [place] tel:[phone] [facility] , Follow Up of seropositive rheumatoid arthritis (chief complaint) Rheu arthritis w rheu factor mult site w/o org/sys involvPrimar y generalized (osteo)arthr itisAge-rela sheryl osteoporosis w/o current pathological fractureOthe r supervisor intermediates (current) drug therapyLong term (current) use of systemic steroids 0 Mayra Mcdonald [facility] , [facility] [address], [place], [address], [place]. tel:[phone] Referring Provider: Sharif Phipps, [facility] , [facility] [address], [place], [address]. tel:[phone] Phone E/M By Phys 11-20 Min [facility] , [address], [place], [address], [place] tel:[phone] Telehealth Follow Up of seropositive rheumatoid arthritis (chief complaint)os teoarthritis (chief complaint) [place] [facility] [place]/o org/sys involvPrimar y generalized (osteo)arthr itisOther supervisor intermediates (current) drug therapy 0 Mayra Mcdonald [facility] , [facility] [address], [place], [address], [place]. tel:[phone] Referring Provider: Sharif Phipps, [facility] [address], [place], [address]. tel:[phone] Office/Outpa tient Visit, Est [facility] , [address], [place], [address], [place] tel:[phone] [facility] , Follow Up of seropositive rheumatoid arthritis (chief complaint) Rheu arthritis w rheu factor mult site w/o org/sys involvCarpal tunnel syndrome, right upper limbAbnormal weight lossOther fpc (current) drug therapyLong term (current) use of systemic steroids 0 Nunez Sharif. [facility] , [facility] [address], [place], [address], [place]. tel:[phone] Referring Provider: Sharif Phipps, [facility] , [facility] [address], [place], [address]. tel:[phone] Office/Outpa tient Visit, Est [facility] , [address], [place], [address], [place] tel:[phone] [facility] , Follow Up of seropositive rheumatoid arthritis (chief complaint) Rheu arthritis w rheu factor mult site w/o org/sys involvCarpal tunnel syndrome of right armPain in right shoulderOthe r fpc (current) drug therapyLong term (current) use of systemic steroids Mayra Olguin. [facility] , [facility] [address], [place], [address], [place]. tel:[phone] Referring Provider: Sharif Phipps, [facility] , [facility] [address], [place], [address]. tel:[phone] Office/Outpa tient Visit, Est [facility] , [address], [place], [address], [place] tel:[phone] [facility] , Follow Up of seropositive rheumatoid arthritis (chief complaint) Rheu arthritis w rheu factor mult site w/o org/sys involvOther fpc (current) drug therapyLong term (current) use of systemic steroids 9 Mayra Olguin. [facility] , [facility] [address], [place], [address], [place]. tel:[phone] Referring Provider: Sharif Phipps, [facility] , [facility] [address], [place], [address]. tel:[phone] Office/Outpa tient Visit, Est [facility] , [address], [place], [address], [place] tel:[phone] [facility] , Follow Up of seropositive rheumatoid arthritis (chief complaint) Rheu arthritis w rheu factor [facility] [place]/o org/sys involvOther fpc (current) drug therapyLong term (current) use of systemic steroids Mayra Olguin. [facility] , [facility] [address], [place], [address], [place]. tel:[phone] Referring Provider: Sharif Phipps, [facility] , [facility] [address], [place], [address]. tel:[phone] Office/Outpa tient Visit, Est [facility] , [address], [place], [address], [place] tel:[phone] [facility] , Follow Up of seropositive rheumatoid arthritis (chief complaint) Rheu arthritis w rheu factor [facility] [place] w/o org/sys involvDry eye syndrome of bilateral lacrimal glandsXerost omiaNasal congestionPr uritusOsteop orosisOther fpc (current) drug therapyLong term (current) use of systemic steroids Mayra Olguin. [facility] , [facility] [address], [place], [address], [place]. tel:[phone] Referring Provider: Sharif Phipps, [facility] , [facility] [address], [place], [address]. tel:[phone] Office/Outpa tient Visit, Est [facility] , [address], [place], [address], [place] tel:[phone] [facility] , Follow Up of seropositive rheumatoid arthritis (chief complaint) Rheu arthritis w rheu factor mult site w/o org/sys involvConjun ctivitisAge- related osteoporosis w/o current pathological fractureOthe r fpc (current) drug therapyLong term (current) use of systemic steroids 9 Mayra Olguin. [facility] [address], [place], [address], [place]. [phone] Referring Provider: Sharif Phipps, [facility] [address], [place], [address]. tel:[phone] Office/Outpa tient Visit, Est [facility] , [address], [place], [address], [place] tel:[phone] [facility] , Follow Up of seropositive rheumatoid arthritis (chief complaint) Seropositive RA of multiple sites w/o organ involvementP ain in left kneeAge-rela sheryl osteoporosis w/o current pathological fractureOthe r supervisor intermediates (current) drug therapy Mayra Olguin. [facility] [address], [place], [address], [place]. tel:[phone] Referring Provider: Sharif Phipps, [facility] [address], [place], [address]. [phone] Office/Outpa tient Visit, New [facility] , [address], [place], [address], [place] [phone] [facility] , Inflammatory Polyarthropa thy (chief complaint) Inflammatory polyarthropa thyAge-relat ed osteoporosis w/o current pathological fracturePrim gutierrez generalized osteoarthrit isType 2 diabetes mellitus without complication sLong term use of systemic steroids 8 Nunez Sharif. [facility] , [facility] [address], [place], [address], [place]. tel:[phone] Referring Provider: Sharif Phipps, [facility] , [facility] [address], [place], [address]. tel:[phone] [facility] , [address], [place], [address], [place] tel:[phone] [facility] , No Information 8 Mayra Olguin. [facility] [address], [place], [address], [place]. tel:[phone] Family History Family Member Type Diagnosis Age At Onset Son Problem (finding) stroke Mother Problem (finding) Arthritis Immunizations Vaccine Date Status Comments COVID-19 Moderna administered Source: Oth er Provider COVID-19 Moderna administered Source: Oth er Provider COVID-19 Moderna administered Source: Oth er Provider Payers Payer name Insurance type Covered alliance party ID Authoriza tion(s) [facility] Medicare Advantage/[employer] [id number] Social History Type Description Quantity Date Captured [...] discussion above regarding the prednisone. Related to senior care (current) use of systemic steroids This is managed at [facility]. For this and multiple other reasons I still would like to taper her off of the prednisone if possible although that has been difficult. Related to Age-related osteoporosis without current pathological fracture She will have routin e laboratories today for monitoring medications and disease. 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 The current dose of prednisone likely has very little role in her slow healing process. I feel the same about her current dose of methotrexate. Related to Cellulitis of left lower limb See discussion above regarding the prednisone. Related to senior care (current) use of systemic steroids She will have routin e laboratories today for monitoring medications and disease. I believe she had a Plaquenil eye exam in September although I do not have a report of that. Related to Other supervisor intermediates (current) drug therapy As long as she [...] This is managed at her primary c [facility]. Related to Age-related osteoporosis without current pathological fracture She will have routin e laboratories today for monitoring medications and disease. She has a Plaquenil eye exam scheduled next month. Related to Other supervisor intermediates (current) drug therapy She had an MRSA [...] do well with lower dose. Related to senior care (current) use of systemic steroids This is managed at her primary c [facility]. Related to Age-related osteoporosis without current pathological fracture She still has an ulc er there [...] do well with lower dose. Related to senior care (current) use of systemic steroids She will have routin e laboratories today for monitoring medications and disease. Related to Other supervisor intermediates (current) drug therapy Based on her follow- [...] well with any lower dose. Related to senior care (current) use of systemic steroids Her rheumatoid [...] is healed over with scab but is winder tender in the dry area. I recommended [...] her prednisone dose as tolerated. Related to senior care (current) use of systemic steroids This is [...] monitoring medications and disease. Related to Other fpc (current) drug therapy She may be a [...] her prednisone dose as tolerated. 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 Related to Other fpc (current) drug therapy Unfortunately, she h as [...] osteoporosis without current pathological fracture This is not a major issue for her currently. Related to Other low back pain Her rheumatoid arthr itis is stable on [...] taper of her prednisone dose. 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 Related to Other supervisor intermediates (current) drug therapy Unfortunately, she h as [...] taper of her prednisone dose. Related to senior care (current) use of systemic steroids She is [...] monitoring medications and disease. Related to Other fpc (current) drug therapy This is not a major issue for her currently. Related to Other low back pain See discussion above regarding very slow taper of her prednisone dose. Related to senior care (current) use of systemic steroids Her last [...] intermediates (current) drug therapy See discussion above . [...] monitoring medications and disease. Related to Other fpc (current) drug therapy Her last bone densit [...] discussion above regarding the prednisone. Related to senior care (current) use of systemic steroids She has [...] physician regarding this issue. Related to Hallucinations See discussion above regarding the prednisone. 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 Her last Plaquenil eye exam was on approximately 06/15/2020. I did encourage her to proceed with the COVID-19 vaccine booster (Moderna) when she can. She will need to hold methotrexate for 1 week after the booster vaccine. Related to Other supervisor intermediates (current) drug therapy Her last bone densit y test was in September 2018. She had a follow-up bone density test in September through her primary clinic. She has increased her Fosamax dose to 70 mg daily. Related to Age-related osteoporosis without current pathological fracture See discussion above . If decreasing the dose of prednisone does not help her with this problem, I recommended follow-up with her primary physician. Related to Hallucinations She is doing better with her rheumatoid [...] Other supervisor intermediates (current) drug therapy Although she is stil [...] Other supervisor intermediates (current) drug therapy She has a history [...] monitoring medications and disease. Related to Other fpc (current) drug therapy Her rheumatoid arthr itis [...] systems involvement See discussion above. Related to senior care (current) use of systemic steroids As noted [...] arthritis w rheu factor mult site w/o Zairge/Ogorods involv She will have routin e laboratories today for monitoring medications and disease. Related to Other supervisor intermediates (current) drug therapy She will have routin e laboratories today for monitoring medications and disease. Related to Other supervisor intermediates (current) drug therapy Her generalized oste oarthritis also seems reasonably well controlled right now. Again, I did not recommend any change in treatment for this. Related to Primary generalized (osteo)arthritis Her osteoporosis is managed through her primary clinic. Her last DEXA scan was in September 2018. Related to Age-related osteoporosis w/o current pathological fracture She is doing well [...] arthritis w rheu factor mult site w/o Zairge/Ogorods involv I encouraged her to have monitoring laboratories done either at her local clinic or here within the next month or so. I emphasized the importance of this since we have increased her methotrexate dose since I last saw her. Related to Other fpc (current) drug therapy See discussion above. Related [...] along with a very low dose of [id number]-[id number] ibuprofen. I did not recommend any change in her current regimen for now. Hopefully I can see her in person in 3 months. Related to Rheu arthritis w rheu factor mult site w/o org/sys involv See discussion above regarding tapering the prednisone. Related to senior care (current) use of systemic steroids Her rheumatoid [...] monitoring medications and disease. Related to Other fpc (current) drug therapy See discussion above regarding the prednisone. 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 Her last Plaquenil eye exam was in September 2018. Related to Other fpc (current) drug therapy She was concerned th [...] Related to Pain in right shoulder She has right carpal tunnel syndrome, likely related to the swelling in her right wrist. Hopefully more effective treatment of her rheumatoid arthritis will solve that issue. In the meantime, she will continue the splint that wrist at night. Related to Carpal tunnel syndrome of right arm Although the prednis one taper has gone [...] factor mult site w/o org/sys involv She has been started on Fosamax since I last saw her. She is taking appropriate doses also of calcium and vitamin D. Related to senior care (current) use of systemic steroids If anything, [...] monitoring medications and disease. Related to Other fpc (current) drug therapy She likely does have osteoporosis. She is scheduled for bone densitometry at the end of September. She plans to have results of that forwarded to me. 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 Related to Other supervisor intermediates (current) drug therapy She has some synovit is in her [...] factor mult site w/o org/sys involv She likely has osteo porosis in the [...] discussion above regarding the prednisone. 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 I recommended followup with her primary physician regarding this issue. It's possible that she might benefit from a saline nasal spray such as [employer] Stopover. Related to Nasal congestion If this is [...] eyes and dry mouth. These will include [id number] preservative-free artificial tears (I gave her specific [...] taper of her prednisone dose. Related to senior care (current) use of systemic steroids She will have routin e laboratories today for monitoring medications and disease. Related to Other fpc (current) drug therapy She is doing very [...] I would like her to see an dry kiln feeder to make sure that she does not [...] Other supervisor intermediates (current) drug therapy She has some pain in her left knee after falling on it 3 days ago but seems to be recovering normally from this without any suggestion of anything more than a contusion. I did not recommend any further evaluation of this. 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 This likely also is being masked by the prednisone. I may need to address this as she tapers her prednisone further. 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
[2024-05-30 11:06] VITALS: BP 171/71; PULSE 76; RESP 18; TEMP 36.9; O2SAT 97; BMI 25.3
--- NOTE | 2024-05-30 11:26 | CRLHL7_ITS ---
For Patients: As a result of the Century Cures Act, medical imaging exams and procedure reports are released immediately into your electronic medical record. You may view this report before your referring provider. If you have questions, please contact your health care provider. INDICATION: History of edema and cellulitis. Pain and pitting edema in the left leg.. TECHNIQUE: Ultrasound venous duplex lower left extremity. Compression venous exam was performed using jacobsen-scale, color Doppler, and spectral Doppler analysis. COMPARISON: None. FINDINGS: Deep veins: Sonographic imaging demonstrates the left common femoral, deep femoral, and the contralateral right common femoral veins to be fully compressible with normal color Doppler blood flow. There is duplication of the proximal and mid left femoral vein. One of the 2 proximal and mid left femoral veins demonstrate partial compressibility while the other demonstrates full compressibility. Single distal left femoral vein is noted with echogenic material in the lumen and noncompressibility consistent with thrombus. The popliteal vein also demonstrates noncompressibility and echogenic material within the lumen consistent with thrombus. There is partial compressibility of the proximal peroneal and posterior tibial veins. The entirety of these are difficult to visualize due to patient`s pain and pitting edema. The posterior tibial veins demonstrate full compressibility at the distal calf. Superficial veins: Greater saphenous vein is fully compressible. No popliteal cyst. 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 One of the 2 demonstrates acute thrombus. The acute DVT extends into the distal femoral vein, popliteal vein and the proximal peroneal and posterior tibial veins. Distal posterior tibial vein is patent. Findings discussed with Dr. Ingram at 12:35 pm on 05/30/[address] De La Cruz. Dictated by Melissa De La Cruz MD @ 05/30/2024 12:36:42 PM (Electronically Signed)
--- NOTE | 2024-05-30 11:56 | ED_ITS ---
HPI - General Adult General Time Seen by Provider: 11:57 Date Seen: 05/30/24 Chief complaint: Lower Extremity Swelling Stated complaint: possible blood clot Time Seen by Provider: 05/30/24 11:25 Source: patient and family Mode of arrival: wheelchair History of Present Illness HPI narrative: Vanessa is a 83 year old female with chronic lower extremity venous leg ulcer left, peripheral vascular disease, hypertension, rheumatoid arthritis, hydroxychloroquine recent pancytopenia, right breast mass, neurogenic bladder with self catheterization presents emerged department from clinic with worsening left lower extremity swelling. Patient states that since being discharged from the hospital, she has had increased left lower extremity redness and swelling. She also had increased pain to the left lower anterior area and top of her foot. Patient states she is able to ambulate. She denies any fevers or chills. She was recently discharged from the hospital, at that time she had pancytopenia thought to be caused by medications. She has not had any worsening generalized weakness, no upper respiratory complaints. She was scheduled for mammogram this afternoon in clinic, this was canceled and the patient was sent over due to worsening left lower extremity edema, redness and pain. History of any DVTs or PEs in the past. Patient denies any shortness of breath or chest pain. Patient states she has been eating and drinking normally. No other concerns at this time. Related Data Home Medications ?Medication ?Instructions ?Recorded ?Confirmed aspirin 81 mg tablet,delayed 81 mg PO DAILY 10/04/21 05/30/24 release (Adult Aspirin Regimen) multivitamin (Multiple Vitamins 1 tab PO QDAY 11/26/21 05/30/24 tablet) alendronate 70 mg tablet 70 mg PO SILVA 02/28/22 05/30/24 calcium 600 mg (as 1 cap PO DAILY 02/28/22 05/30/24 carbonate)-vitamin D3 12.5 mcg (500 unit) capsule (Calcium with Vit D3) furosemide 20 mg tablet 20 mg PO BID 02/28/22 05/30/24 losartan 50 mg tablet 50 mg PO DAILY 02/28/22 05/30/24 acetaminophen 500 mg tablet 1,000 mg PO Q6H PRN 07/13/22 05/30/24 (Acetaminophen Extra Strength) methenamine hippurate 1 gram tablet 1 g PO BID 11/26/22 05/30/24 benzocaine 20 % mucosal gel 1 applic mucous membrane QID PRN 05/14/24 05/30/24 clotrimazole 1 % topical cream 1 applic topical BID 05/14/24 05/30/24 prednisone 1 mg tablet 2 mg PO DAILY 05/14/24 05/30/24 Previous Rx's ?Medication ?Instructions ?Recorded Magic Mouthwash 5 ml PO Q4H PRN #120 mL 05/04/24 (Lidocaine/Benadryl/Maalox) 120 mL suspension apixaban 5 mg tablet (Eliquis) 5 mg PO BID #60 tabs 05/30/24 Allergies Allergy/AdvReac Type Severity Reaction Status Date / Time clonidine Allergy Mild Hallucinati Verified 05/30/24 11:09 ng leflunomide Allergy Mild Hallucinati Verified 05/30/24 11:09 ng lisinopril Allergy Mild increased Verified 05/30/24 11:09 creatinine methotrexate Allergy Mild did not Verified 05/30/24 11:09 feel well hydrocodone Allergy Unknown Vomiting Verified 05/30/24 11:09 oxycodone Allergy Unknown Verified 05/30/24 11:09 Opioids - Morphine Analogues Allergy Verified 05/30/24 11:09 Sulfa (Sulfonamide Allergy Verified 05/30/24 11:09 Antibiotics) surgical glue Allergy Uncoded 04/30/24 18:36 Review of Systems Status of ROS: Reports: 10 or more systems reviewed and unremarkable except as noted in History and below [facility] Medical History Breast mass, right ?N63.10 - Unspecified lump in the right breast, unspecified quadrant (ICD-10) MRSA infection ?A49.02 - Methicillin resistant Staphylococcus aureus infection, unspecified site (ICD-10) Neurocardiogenic pre-syncope ?R55 - Syncope and collapse (ICD-10) Physical deconditioning ?R53.81 - Other malaise (ICD-10) Closed fracture of distal radius and ulna ?S52.509A - Unspecified fracture of the lower end of unspecified radius, initial encounter for closed fracture (ICD-10) ?S52.609A - Unspecified fracture of lower end of unspecified ulna, initial encounter for closed fracture (ICD-10) Post-traumatic osteoarthritis, left wrist ?M19.132 - Post-traumatic osteoarthritis, left wrist (ICD-10) Closed fracture of left distal radius ?S52.502A - Unspecified fracture of the lower end of left radius, initial encounter for closed fracture (ICD-10) Closed fracture of left proximal humerus ?S42.202A - Unspecified fracture of upper end of left humerus, initial encounter for closed fracture (ICD-10) Lower extremity edema ?R60.0 - Localized edema (ICD-10) Pneumonia ?J18.9 - Pneumonia, unspecified organism (ICD-10) Sepsis ?A41.9 - Sepsis, unspecified organism (ICD-10) Gram-negative bacteremia ?R78.81 - Bacteremia (ICD-10) Lung nodules ?R91.8 - Other nonspecific abnormal finding of lung field (ICD-10) Sensorineural hearing loss, bilateral ?H90.3 - Sensorineural hearing loss, bilateral (ICD-10) Prediabetes ?R73.03 - Prediabetes (ICD-10) Presence of neurostimulator ?Z96.82 - Presence of neurostimulator (ICD-10) Sacral nerve stimulator present ?Z96.82 - Presence of neurostimulator (ICD-10) Recurrent urinary tract infection ?N39.0 - Urinary tract infection, site not specified (ICD-10) Hyperlipidemia ?E78.5 - Hyperlipidemia, unspecified (ICD-10) History of DVT (deep vein thrombosis) ?Z86.718 - Personal history of other venous thrombosis and embolism (ICD-10) Stage 3 chronic kidney disease ?N18.30 - Chronic kidney disease, stage 3 unspecified (ICD-10) Rheumatoid arthritis ?M06.9 - Rheumatoid arthritis, unspecified (ICD-10) High blood pressure ?I10 - Essential (primary) hypertension (ICD-10) Osteoarthritis ?M19.90 - Unspecified osteoarthritis, unspecified site (ICD-10) Surgical History (Updated 05/14/24 @ 12:33 by Padmaja Call MD) S/P ORIF (open reduction internal fixation) fracture (12/06/21) ?Z98.890 - Other specified postprocedural states (ICD-10) ?Z87.81 - Personal history of (healed) traumatic fracture (ICD-10) S/P ORIF (open reduction internal fixation) fracture ?Z98.890 - Other specified postprocedural states (ICD-10) ?Z87.81 - Personal history of (healed) traumatic fracture (ICD-10) S/P total knee arthroplasty ?Z96.659 - Presence of unspecified artificial knee joint (ICD-10) H/O hysterectomy with oophorectomy History of cholecystectomy ?Z90.49 - Acquired absence of other specified parts of digestive tract (ICD- 10) Family History Mother Stroke Rheumatoid arthritis Brother Diabetes Coronary artery disease Father Pancreatic cancer Social History Narrative: patient lives independently with her significant other, Cirilo Chambers. She has a niece, Peg. 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 Code status is full. What is your current living situation?: I presently have a place to live Problems where you live: no known problems Problems where you live details: NA In the past 12 months, utilities in danger of being shut off: no In past 12 months, lack of transportation kept you from medical appts, meetings, work, or getting things needed for daily living: no In the past 12 mos, have been you worried that your food would run out before you had money to buy more?: never true In the past 12 mos, the food you bought just didn't last and you didn't have money to buy more?: never true Highest level of school completed/degree received: Associate degree: occupational, technical, vocational program Smoking Status: Never smoker Do you use any of these nicotine containing products: None Second hand tobacco smoke exposure: No How often do you have a drink containing alcohol: never How often do you have six or more drinks on one occasion: Never AUDIT-C Alcohol total score: 0 Non-prescribed substance use: denies use Caffeine: Yes How often does anyone, including family, friends and others, physically hurt you : never How often does anyone, including family, friends and others, insult or talk down to you: never How often does anyone, including family, friends and others, threaten you with harm: never How often does anyone, including family, friends and others, scream or curse at you: never Gender Identity: female Are you using contraception or practicing any form of control: No service: No Exam Narrative: Exam Narrative: General: No obvious distress sitting comfortably HEENT: Pupils equal round reactive to light, extraocular muscles intact, oropharynx is clear and moist Neck: Supple, no JVD Lungs: clear to auscultation bilaterally. Heart: Normal sinus rhythm S1-S2 Abdomen: Nontender, soft, bowel sounds present Muscle skeletal: Left lower extremity +2 pitting edema from the knee down to the foot, chronic ecchymosis in the anterior portion, redness performed extends to the foot. Tender to palpation the lower posterior calf. CMS intact. Neuro: Alert awake and oriented x3 Const: Vital Signs, click to edit/add: Vital Signs - 24 hr 05/30/24 11:06 Temperature 98.4 F Pulse Rate [Right Pulse Oximeter] 76 Respiratory Rate 18 Blood Pressure [Ri ght Upper Arm] 171/71 H Pulse Oximetry 97 Oxygen Delivery Me thod Room Air Course Course ED Course: 11:30 AM: aidet performed. vitals are stable. Include CBC, CMP, INR, present lactate, patient has venous stasis ulcer, healing well. plan to rule out deep vein thrombosis versus cellulitis. 1 g Tylenol for pain. Differential diagnosis include deep vein thrombosis, cellulitis, peripheral vascular disease, heart failure, venous stasis dermatitis. To make sure improvement of her pancytopenia previous hospitalization thought to be due to doxycycline and Plaquenil. 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 One of the 2 demonstrates acute thrombus. The acute DVT extends into the distal femoral vein, popliteal vein and the proximal peroneal and posterior tibial veins. Distal posterior tibial vein is patent. CBC showed improved hemoglobin to 10.4, no leukocytosis, platelets 554, INR 0.87, comprehensive metabolic panel unchanged from previous, patient wishes to be discharged home, will plan to treat the Eliquis 10 mg b.i.d. over 7 days, then transition to 5 mg b.i.d. to 3 months, no contraindications to this medication, this was discussed with pharmacy and also with Vascular Surgery Dhaval BARAHONA, post ED follow-up arranged this Sunday 06/04 2:00 p.m, for recheck blood work, reasons to return given. Vital Signs Vital signs: Initial Vital Signs Temperature 98.4 F 05/30/24 11:06 Temperature Source Temporal Artery Scan 05/30/24 11:06 Pulse Rate 76 05/30/24 11:06 Pulse Rhythm Regular 05/30/24 11:06 Pulse Strength 3+ Normal 05/30/24 11:06 Respiratory Rate 18 05/30/24 11:06 Blood Pressure 171/71 H 05/30/24 11:06 Blood Pressure Mean 104 05/30/24 11:06 Blood Pressure Position Sitting 05/30/24 11:06 Pulse Oximetry 97 05/30/24 11:06 Oxygen Delivery Method Room Air 05/30/24 11:06 Vital Signs Temperature 98.4 F 05/30/24 11:06 Pulse Rate 76 05/30/24 11:06 Respiratory Rate 18 05/30/24 11:06 Blood Pressure 171/71 H 05/30/24 11:06 Pulse Oximetry 97 05/30/24 11:06 Oxygen Delivery Method Room Air 05/30/24 11:06 Temperature 98.4 F 05/30/24 11:06 Pulse Rate 76 05/30/24 11:06 Respiratory Rate 18 05/30/24 11:06 Blood Pressure 171/71 H 05/30/24 11:06 Pulse Oximetry 97 05/30/24 11:06 Oxygen Delivery Method Room Air 05/30/24 11:06 Medications Administered Medications: Discontinued Medications Generic Name Dose Route Start Last Admin Trade Name Henryq PRN Reason Stop Dose Admin Acetaminophen 1,000 mg 05/30/24 12:17 05/30/24 12:26 Acetaminophen 500 Mg Tablet PO 05/30/24 12:18 1,000 mg ONCE ONE Administration Apixaban 10 mg 05/30/24 14:34 05/30/24 15:00 Apixaban 5 Mg Tablet PO 05/30/24 14:35 10 mg ONCE ONE Administration Medical Decision Making Lab Data Labs: Lab Results 05/30/24 Range/Units 12:28 WBC 6.02 (4.50-11.00) K/uL RBC 3.31 L (4.00-5.20) m/uL Hgb 10.4 L (12.0-16.0) gm/dL Hct 32.2 L (33.0-51.0) % MCV 97 (80-100) fL MCH 31 (26-34) pg MCHC 32 (32-36) gm/dL RDW Coeff of Randa 22.3 H (11.5-15.5) % Plt Count 554 H (140-440) K/uL Neut % (Auto) 85.4 H (42.0-72.0) % Lymph % (Auto) 9.8 L (20-44) % [place] % (Auto) 2.8 (0.0-11.0) % Eos % (Auto) 0.7 (0.0-7.0) % Baso % (Auto) 0.8 (0.0-3.0) % Neut # (Auto) 5.10 (1.7-7.0) K/uL Lymph # (Auto) 0.60 L (0.90-2.90) K/uL [place] # (Auto) 0.20 (0.00-0.90) K/UL Eos # (Auto) 0.04 (0.00-0.50) K/uL Baso # (Auto) 0.05 (0.00-0.30) K/uL Abs Immat Gran (auto) 0.03 (0.00-0.30) K/uL Imm/Tot Granulo (auto) 0.5 % INR 0.87 L (0.91-1.10) Sodium 133 L (135-149) mmol/L Potassium 4.6 (3.6-5.1) mmol/L Chloride 100 (96-114) mmol/L Carbon Dioxide 26 (20-32) mmol/L Anion Gap 7 (7-15) mEq/L BUN 21 (7-30) mg/dL Creatinine 0.8 (0.5-1.5) mg/dL Estimated Creat Clear 31.60 Estimated GFR 73 ml/min Glucose 122 H (60-115) mg/dL Lactate 0.8 (0.5-1.9) mmol/L Calcium 8.9 (8.4-10.6) mg/dL Total Bilirubin 0.4 (0.1-1.5) mg/dL AST 57 H (12-35) U/L ALT 57 H (4-35) U/L Alkaline Phosphatase 110 (40-150) U/L Total Protein 6.7 (6.0-8.3) g/dL Albumin 3.8 (3.3-5.0) g/dL Discharge Plan Discharge Clinical Impression: Deep vein thrombosis (DVT), History of pancytopenia Patient Disposition: Home, Self-Care Condition: Improved Instructions: Deep Vein Thrombosis (ED) Additional Instructions: Lab follow up appointment scheduled, June 04 at 2PM, at the [facility]. [facility] [address] [place] [address] To take 10 mg twice a day for the next 7 days, then transition to 5 mg twice a day until follow up. Follow up will be next Monday, recheck Complete Blood count based on history of pancytopenia. Prescriptions: New Eliquis 5 mg tablet 5 mg PO BID Qty: 60 0RF Rx Instructions: 10 mg twice daily for 7 days. Then 5 mg twice a day until follow up. No Action methenamine hippurate 1 gram tablet 1 g PO BID multivitamin [Multiple Vitamins] Tablet 1 tab PO QDAY aspirin [Adult Aspirin Regimen] 81 mg tablet,delayed release (DR/EC) 81 mg PO DAILY Magic Mouthwash (Lidocaine/Benadryl/Maalox) 120 mL suspension 5 ml PO Q4H PRNQty: 120 0RF Rx Instructions: Lidocaine Viscous 2 % mucosal solution 40 mL; Maalox 200 mg-200 mg-20 mg/5 mL oral suspension 40 mL; Benadryl 12.5 mg/5 mL oral elixir 40 mL; Per 120 mL SWISH AND SPIT. MAY COMPOUND IF FIRST PRODUCT IS NOT AVAILABLE. calcium carbonate-vitamin D3 [Calcium 600 with Vitamin D3] 600 mg-12.5 mcg (500 unit) capsule 1 cap PO DAILY losartan 50 mg tablet 50 mg PO DAILY furosemide 20 mg tablet 20 mg PO BID alendronate 70 mg tablet 70 mg PO SILVA Patient Comments: TAKE 1 TABLET BY MOUTH EVERY 7 DAYS ON AN EMPTY STOMACH. REMAIN UPRIGHT FOR 30 MINUTES. TAKE WITH 8 OUNCES OF WATER acetaminophen [Acetaminophen Extra Strength] 500 mg tablet 1,000 mg PO Q6H PRN prednisone 1 mg tablet 2 mg PO DAILY benzocaine 20 % gel 1 applic MUCOUS MEMBRANE QID PRN Rx Instructions: Apply 0.5 g topically to affected area(s) 4 times daily if needed for Tooth Pain (for lip pain). Apply a thin layer to affected areas inside mouth up to 4 times daily. clotrimazole 1 % cream 1 applic TOPICAL BID Rx Instructions: Apply topically to affected area(s) two times daily. Follow Up/Referrals: Constanza Cardozo MD [Primary Care Provider] - Stand Alone Forms: [employer] Info Instructions
[2024-05-30] MEDS: ACETAMINOPHEN 500 MG TABLET 1000 MG PO (12:26)
[2024-05-30 12:35] LABS: Lactate* 0.8 mmol/L (0.5-1.9)
[2024-05-30 12:38] LABS: Basophils Absolute Auto 0.05 K/uL (0.00-0.30); Basophils Percent Auto 0.8 % (0.0-3.0); Eosinophils Absolute Auto 0.04 K/uL (0.00-0.50); Eosinophils Percent Auto 0.7 % (0.0-7.0); Hematocrit 32.2 % (33.0-51.0); Hemoglobin* 10.4 gm/dL (12.0-16.0); Immature Granulocytes Abs Auto 0.03 K/uL (0.00-0.30); Immature Granulocytes Pct Auto 0.5 %; Lymphocytes Percent Auto 9.8 % (20-44); Mean Corpuscular HGB Conc 32 gm/dL (32-36); Mean Corpuscular Hemoglobin 31 pg (26-34); Mean Corpuscular Volume 97 fL (80-100); Monocytes Percent Auto 2.8 % (0.0-11.0); Neutrophils Percent Auto 85.4 % (42.0-72.0); Platelet Count* 554 K/uL (140-440); RDW Coefficient of Variation % 22.3 % (11.5-15.5); Red Blood Count 3.31 m/uL (4.00-5.20); White Blood Count* 6.02 K/uL (4.50-11.00)
[2024-05-30 12:49] LABS: Slide Review Reflex No
[2024-05-30 12:51] LABS: Albumin* 3.8 g/dL (3.3-5.0); Chloride* 100 mmol/L (96-114); Sodium* 133 mmol/L (135-149)
[2024-05-30 12:52] LABS: Potassium* 4.6 mmol/L (3.6-5.1)
[2024-05-30 12:53] LABS: INR 0.87 (0.91-1.10); Prothrombin Time 12.6 Seconds
[2024-05-30 12:54] LABS: Alanine Aminotransferase* 57 U/L (4-35); Alkaline Phosphatase* 110 U/L (40-150); Anion Gap 7 mEq/L (7-15); Aspartate Amino Transferase* 57 U/L (12-35); Bilirubin Total* 0.4 mg/dL (0.1-1.5); Blood Urea Nitrogen* 21 mg/dL (7-30); Carbon Dioxide* 26 mmol/L (20-32); Creatinine* 0.8 mg/dL (0.5-1.5); Estimated Glomerular Filt Rate 73 ml/min; Glucose* 122 mg/dL (60-115); Total Protein* 6.7 g/dL (6.0-8.3)
[2024-05-30 12:55] LABS: Calcium* 8.9 mg/dL (8.4-10.6)
--- OUTSIDE RECORDS SUMMARY | 2024-05-30 12:58 | XMS_ITS | Continuity of Care Document ---
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 tel:[phone] Referring Provider: Sharif Phipps, [facility] , [facility] [address], [place], [address]. tel:[phone] Office/Outpa tient Visit, Est [facility] , [address], [place], [address], [place] tel:[phone] [facility] , Follow [...] [address], [place], [address], [place]. tel:[phone] Referring Provider: Sharif Phipps, [facility] , [facility] [address], [place], [address]. tel:[phone] [facility] , [address], [place], [address], [place] tel:[phone] [facility] , No Information 4 Mayra Olguin. [facility] , [facility] [address], [place], [address], [place]. tel:[phone] Office/Outpa tient Visit, Est [facility] , [address], [place], [address], [place] tel:[phone] [facility] , Follow [...] P.A., [address], [place], [address], [place]. tel:[phone] Referring Provider: Sharif Phipps, [facility] , [facility] [address], [place], [address]. [phone] Office/Outpa tient Visit, Est [facility] , [address], [place], [address], [place] tel:[phone] [facility] , Follow [...] [address], [place], [address], [place]. tel:[phone] Referring Provider: Sharif Phipps, [facility] , [facility] [address], [place], [address]. tel:[phone] Office/Outpa tient Visit, Est [facility] , [address], [place], [address], [place] tel:[phone] [facility] , Follow [...] P.A., [address], [place], [address], [place]. tel:[phone] Referring Provider: Sharif Phipps, [facility] , [facility] [address], [place], [address]. tel:[phone] Office/Outpa tient Visit, Est [facility] , [address], [place], [address], [place] tel:[phone] [facility] , Follow [...] P.A., [address], [place], [address], [place]. tel:[phone] Referring Provider: Sharif Phipps, [facility] , [facility] [address], [place], [address]. tel:[phone] Office/Outpa tient Visit, Est [facility] , [address], [place], [address], [place] tel:[phone] [facility] , Follow [...] [address], [place], [address], [place]. tel:[phone] Referring Provider: Sharif Phipps, [facility] , [facility] [address], [place], [address]. tel:[phone] Office/Outpa tient Visit, Est [facility] , [address], [place], [address], [place] tel:[phone] [facility] , Follow [...] P.A., [address], [place], [address], [place]. tel:[phone] Referring Provider: Sharif Phipps, [facility] , [facility] [address], [place], [address]. tel:[phone] Office/Outpa tient Visit, Est [facility] , [address], [place], [address], [place] tel:[phone] [facility] , Follow [...] P.A., [address], [place], [address], [place]. tel:[phone] Referring Provider: Sharif Phipps, [facility] , [facility] [address], [place], [address]. tel:[phone] Office/Outpa tient Visit, Est [facility] , [address], [place], [address], [place] tel:[phone] [facility] , Follow [...] P.A., [address], [place], [address], [place]. tel:[phone] Referring Provider: Sharif Phipps, [facility] , [facility] [address], [place], [address]. tel:[phone] Office/Outpa tient Visit, Est [facility] , [address], [place], [address], [place] tel:[phone] [facility] , Follow [...] P.A., [address], [place], [address], [place]. tel:[phone] Referring Provider: Sharif Phipps, [facility] , [facility] [address], [place], [address]. tel:[phone] Office/Outpa tient Visit, Est [facility] , [address], [place], [address], [place] tel:[phone] [facility] , Follow [...] P.A., [address], [place], [address], [place]. tel:[phone] Referring Provider: Sharif Phipps, [facility] , [facility] [address], [place], [address]. tel:[phone] Office/Outpa tient Visit, Est [facility] , [address], [place], [address], [place] tel:[phone] [facility] , Follow [...] P.A., [address], [place], [address], [place]. tel:[phone] Referring Provider: Sharif Phipps, [facility] , [facility] [address], [place], [address]. tel:[phone] Office/Outpa tient Visit, Est [facility] , [address], [place], [address], [place] tel:[phone] [facility] , Follow [...] [address], [place], [address], [place]. tel:[phone] Referring Provider: Sharif Phipps, [facility] , [facility] [address], [place], [address]. tel:[phone] Office/Outpa tient Visit, Est [facility] , [address], [place], [address], [place] tel:[phone] [facility] , Follow Up of Seropositive rheumatoid arthritis (chief complaint) Rheumatoid arthritis with rheumatoid factor of multiple sites without organ or systems involvementA bnormal weight lossAge-rela sheryl osteoporosis without current pathological fractureOthe r intermediate project manager (current) drug therapyLong term (current) use of systemic steroids 1 Mayra Olguin. [facility] , [facility] [address], [place], [address], [place]. tel:[phone] Referring Provider: Sharif Phipps, [facility] , [facility] [address], [place], [address]. tel:[phone] Office/Outpa tient Visit, Est [facility] , [address], [place], [address], [place] tel:[phone] [facility] , Follow Up of Seropositive rheumatoid arthritis (chief complaint) Rheumatoid arthritis with rheumatoid factor of multiple sites without organ or systems involvementO ther shelter (current) drug therapyLong term (current) use of systemic steroids 0 Mayra Olguin. [facility] , [facility] [address], [place], [address], [place]. tel:[phone] Referring Provider: Sharif Phipps, [facility] , [facility] [address], [place], [address]. tel:[phone] Office/Outpa tient Visit, Est [facility] , [address], [place], [address], [place] tel:[phone] [facility] , Follow Up of seropositive rheumatoid arthritis (chief complaint) Rheu arthritis w rheu factor mult site w/o org/sys involvAge-re lated osteoporosis w/o current pathological fractureOthe r intermediate project manager (current) drug therapyLong term (current) use of systemic steroids 0 Mayra Mcdonald [facility] , [facility] [address], [place], [address], [place]. tel:[phone] Referring Provider: Sharif Phipps, [facility] , [facility] [address], [place], [address]. tel:[phone] Office/Outpa tient Visit, Est [facility] , [address], [place], [address], [place] tel:[phone] [facility] , Follow Up of seropositive rheumatoid arthritis (chief complaint) Rheu arthritis w rheu factor mult site w/o org/sys involvPrimar y generalized (osteo)arthr itisAge-rela sheryl osteoporosis w/o current pathological fractureOthe r intermediate project manager (current) drug therapyLong term (current) use of systemic steroids 0 Mayra Mcdonald [facility] , [facility] [address], [place], [address], [place]. tel:[phone] Referring Provider: Sharif Phipps, [facility] , [facility] [address], [place], [address]. tel:[phone] Phone E/M By Phys 11-20 Min [facility] , [address], [place], [address], [place] tel:[phone] Telehealth Follow Up of seropositive rheumatoid arthritis (chief complaint)os teoarthritis (chief complaint) Rheu arthritis [facility]u factor [facility] w/o org/sys involvPrimar y generalized (osteo)arthr itisOther intermediate project manager (current) drug therapy 0 Mayra Mcdonald [facility] , [facility] [address], [place], [address], [place]. tel:[phone] Referring Provider: Sharif Phipps, [facility] , [facility] [address], [place], [address]. tel:[phone] Office/Outpa tient Visit, Est [facility] , [address], [place], [address], [place] tel:[phone] [facility] , Follow Up of seropositive rheumatoid arthritis (chief complaint) Rheu arthritis w rheu factor mult site w/o org/sys involvCarpal tunnel syndrome, right upper limbAbnormal weight lossOther shelter (current) drug therapyLong term (current) use of systemic steroids 0 Nunez Sharif. [facility] , [facility] [address], [place], [address], [place]. tel:[phone] Referring Provider: Sharif Phipps, [facility] , [facility] [address], [place], [address]. tel:[phone] Office/Outpa tient Visit, Est [facility] , [address], [place], [address], [place] tel:[phone] [facility] , Follow Up of seropositive rheumatoid arthritis (chief complaint) Rheu arthritis w rheu factor mult site w/o org/sys involvCarpal tunnel syndrome of right armPain in right shoulderOthe r shelter (current) drug therapyLong term (current) use of systemic steroids Mayra Olguin. [facility] , [facility] [address], [place], [address], [place]. tel:[phone] Referring Provider: Sharif Phipps, [facility] , [facility] [address], [place], [address]. tel:[phone] Office/Outpa tient Visit, Est [facility] , [address], [place], [address], [place] tel:[phone] [facility] , Follow Up of seropositive rheumatoid arthritis (chief complaint) Rheu arthritis w rheu factor mult site w/o org/sys involvOther shelter (current) drug therapyLong term (current) use of systemic steroids 9 Mayra Olguin. [facility] , [facility] [address], [place], [address], [place]. tel:[phone] Referring Provider: Sharif Phipps, [facility] , [facility] [address], [place], [address]. tel:[phone] Office/Outpa tient Visit, Est [facility] , [address], [place], [address], [place] tel:[phone] [facility] , Follow Up of seropositive rheumatoid arthritis (chief complaint) Rheu arthritis w rheu factor [facility] w/o org/sys involvOther shelter (current) drug therapyLong term (current) use of systemic steroids Mayra Olguin. [facility] , [facility] [address], [place], [address], [place]. tel:[phone] Referring Provider: Sharif Phipps, [facility] , [facility] [address], [place], [address]. tel:[phone] Office/Outpa tient Visit, Est [facility] , [address], [place], [address], [place] tel:[phone] [facility] , Follow Up of seropositive rheumatoid arthritis (chief complaint) Rheu arthritis w rheu factor [facility] w/o org/sys involvDry eye syndrome of bilateral lacrimal glandsXerost omiaNasal congestionPr uritusOsteop orosisOther shelter (current) drug therapyLong term (current) use of systemic steroids Mayra Olguin. [facility] , [facility] [address], [place], [address], [place]. tel:[phone] Referring Provider: Sharif Phipps, [facility] , [facility] [address], [place], [address]. tel:[phone] Office/Outpa tient Visit, Est [facility] , [address], [place], [address], [place] tel:[phone] [facility] , Follow Up of seropositive rheumatoid arthritis (chief complaint) Rheu arthritis w rheu factor mult site w/o org/sys involvConjun ctivitisAge- related osteoporosis w/o current pathological fractureOthe r shelter (current) drug therapyLong term (current) use of systemic steroids 9 Mayra Olguin. [facility] , [facility] [address], [place], [address], [place]. [phone] Referring Provider: Sharif Phipps, [facility] , [facility] [address], [place], [address]. tel:[phone] Office/Outpa tient Visit, Est [facility] , [address], [place], [address], [place] tel:[phone] [facility] , Follow Up of seropositive rheumatoid arthritis (chief complaint) Seropositive RA of multiple sites w/o organ involvementP ain in left kneeAge-rela sheryl osteoporosis w/o current pathological fractureOthe r intermediate project manager (current) drug therapy Mayra Olguin. [facility] , [facility] [address], [place], [address], [place]. tel:[phone] Referring Provider: Sharif Phipps, [facility] , [facility] [address], [place], [address]. [phone] Office/Outpa tient Visit, New [facility] , [address], [place], [address], [place] [phone] [facility] , Inflammatory Polyarthropa thy (chief complaint) Inflammatory polyarthropa thyAge-relat ed osteoporosis w/o current pathological fracturePrim gutierrez generalized osteoarthrit isType 2 diabetes mellitus without complication sLong term use of systemic steroids 8 Nunez Sharif. [facility] , [facility] [address], [place], [address], [place]. tel:[phone] Referring Provider: Sharif Phipps, [facility] , [facility] [address], [place], [address]. tel:[phone] [facility] , [address], [place], [address], [place] tel:[phone] [facility] , No Information 8 Mayra Olguin. [facility] , [facility] [address], [place], [address], [place]. tel:[phone] Family History Family Member Type Diagnosis Age At Onset Son Problem (finding) stroke Mother Problem (finding) Ar[facility] Immunizations Vaccine Date Status Comments COVID-19 Moderna administered Source: Oth er Provider COVID-19 Moderna administered Source: Oth er Provider COVID-19 Moderna administered Source: Oth er Provider Payers Payer name Insurance type Covered republican ID Authoriza tion(s) [facility] Medicare Advantage/[employer] [id number] Social History Type Description Quantity Date Captured [...] or systems involvement This is managed at h primary clinic. For this and multiple other reasons I still would like to taper her off of the prednisone if possible although that has been difficult. Related to Age-related osteoporosis without current pathological fracture See discussion above regarding the prednisone. 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 I am not receiving notes from her method consultant but she reports that she is having regular follow-up exams to monitor the Plaquenil.. Related to Other intermediate project manager (current) drug therapy He initially had a c ellulitis of the left lower leg that has been treated but she has a residual ulcer that required a skin graft. Apparently she is making progress with this since the skin graft but still requires regular follow-up at the wound clinic. Related to Cellulitis of left lower limb This is managed at her primary c [facility]. Related to Age-related osteoporosis without current pathological fracture See discussion above regarding the prednisone. Related to residential (current) use of systemic steroids This is an ongoing i ssue but [...] multiple sites without organ or systems involvement Although she had a s hort-lived flare involving fingers and wrists, she is doing better again now on her normal dose of prednisone. I did not recommend any change in that or the methotrexate or hydroxychloroquine. Related to Rheumatoid arthritis with rheumatoid factor of multiple sites without organ or systems involvement [facility]. Related to Age-related osteoporosis without current pathological fracture At this point, I do not feel like it is urgent to taper this very low-dose of prednisone despite her history of osteoporosis. She simply does not do well with lower dose. Related to residential (current) use of systemic steroids She will have routin e laboratories today for monitoring medications and disease. She has a Plaquenil eye exam scheduled next month. Related to Other shelter (current) drug therapy She had an MRSA [...] do well with lower dose. Related to residential (current) use of systemic steroids She will have routin e laboratories today for monitoring medications and disease. 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 Related to residential (current) use of systemic steroids She will have routin e laboratories today for monitoring medications and disease. Related to Other shelter (current) drug therapy She had a recent ivory lulitis involving the left lower leg. The actual ulcerated area is healed over with scab but is vacuum drier tender in the dry area. I recommended [...] her prednisone dose as tolerated. 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 Related to Other shelter (current) drug therapy She may be a [...] her prednisone dose as tolerated. 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 Related to Other shelter (current) drug therapy Her rheumatoid arthr itis [...] taper of her prednisone dose. 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 Related to residential (current) use of systemic steroids She will have routin e laboratories today for monitoring medications and disease. Related to Other shelter (current) drug therapy See discussion above regarding very slow taper of her prednisone dose. Related to residential (current) use of systemic steroids She is [...] monitoring medications and disease. Related to Other intermediate project manager (current) drug therapy Her last bone densit [...] Other shelter (current) drug therapy She has done well [...] discussion above regarding the prednisone. 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 Her last Plaquenil eye exam was on approximately 06/15/2020. I did encourage her to proceed with the COVID-19 vaccine booster (Moderna) when she can. She will need to hold methotrexate for 1 week after the booster vaccine. Related to Other intermediate project manager (current) drug therapy See discussion above . [...] monitoring medications and disease. Related to Other intermediate project manager (current) drug therapy Although she is stil [...] monitoring medications and disease. 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 Related to residential (current) use of systemic steroids Her rheumatoid arthr itis is well controlled still on her current regimen. She will stay on her same dose of methotrexate. I recommended a slow decrease the prednisone by the equivalent of one half milligram per month. A written schedule with alternating doses was provided to her. Related to Rheu arthritis w rheu factor mult site w/o org/Drizlys involv As noted above, we w ill be tapering her prednisone again. Her last DEXA scan was in September 2018. This is managed primarily through her primary clinic. Related to Age-related osteoporosis w/o current pathological fracture She will have routin e laboratories today for monitoring medications and disease. Related to Other intermediate project manager (current) drug therapy Her generalized oste oarthritis [...] Related to Other shelter (current) drug therapy It is difficult for me to say, via phone consultation, how much of her recent increase in symptoms was related to rheumatoid arthritis versus osteoarthritis. Nevertheless, she is feeling better again now on her combination of low-dose prednisone, still low-dose although increased methotrexate, and full dose Plaquenil along with a very low dose of [id number] ibuprofen. I did not recommend any change in her current regimen for now. Hopefully I can see her in person in 3 months. Related to Rheu arthritis w rheu factor mult site w/o org/sys involv See discussion above regarding tapering the prednisone. Related to residential (current) use of systemic steroids Her rheumatoid [...] discussion above regarding the prednisone. 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 Related to residential (current) use of systemic steroids If anything, [...] of that forwarded to me. 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 Related to Other intermediate project manager (current) drug therapy She likely has osteo [...] monitoring medications and disease. Related to Other intermediate project manager (current) drug therapy See discussion above regarding the prednisone. 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 I recommended followup with her primary physician regarding this issue. It's possible that she might benefit from a saline nasal spray such as [place]. Related to Nasal congestion If this is [...] eyes and dry mouth. These will include [id number] preservative-free artificial tears (I gave her specific [...] monitoring medications and disease. Related to Other intermediate project manager (current) drug therapy See discussion above regarding further taper of her prednisone dose. Related to residential (current) use of systemic steroids She is [...] I would like her to see an method consultant to make sure that she does not [...] the Plaquenil eye exam. Related to Other intermediate project manager (current) drug therapy I think she does [...] discussion above regarding the prednisone. 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
[2024-05-30] MEDS: APIXABAN 5 MG TABLET 10 MG PO (15:00)
== END 2024-05-30 15:14 | disposition home or self-care (01) ==
PROVIDERS: Emergency Provider Student in an Organized Health Care Education/Training Program; PCP Family Medicine
DX: I82.402 Acute embolism and thrombosis of unspecified deep veins of left lower extremity (principal); Z86.2 Personal history of diseases of the blood and blood-forming organs and certain disorders involving the immune mechanism
CPT/HCPCS: 36415; 80053; 83605; 85025; 85610; 87040; 93971; 99283; 99284; A9270

== ENCOUNTER 2024-06-05 14:22 | Outpatient (CLI) | payer MEDICARE, BC, SELFPAY | END 2024-06-05 14:23 | disposition home or self-care (01) | LOC: WOUND 14:22 | PROVIDERS: PCP Family Medicine; Visit Provider Surgery | DX: I87.2 Venous insufficiency (chronic) (peripheral) (principal); L97.822 Non-pressure chronic ulcer of other part of left lower leg with fat layer exposed; L94.2 Calcinosis cutis; M05.9 Rheumatoid arthritis with rheumatoid factor, unspecified; Z79.899 Other long term (current) drug therapy | CPT/HCPCS: 97597 ==

== ENCOUNTER 2024-06-11 03:01 | Emergency (ER) | payer MEDICARE, BC, SELFPAY ==
--- OUTSIDE RECORDS SUMMARY | 2024-06-11 03:04 | XMS_ITS | Clinical Summary ---
Author Organization [facility] Address [facility] [place] [address] Care [address] Abstractor Name Role Phone Claudia Beto Ivan FAUST Unavailable [phone] Sharif Nunez MD Unavailable [phone] Riley Camacho MD Unavailable [phone] Constanza Cardozo MD Primary Care Provider [phone] Inga Caballero MD Unavailable [phone] Allergies Active Allergy Reactions Criticality Noted [...] weekly d/t ckd - Endo E-consult at [place] 10/09/2020 with recommendation to continue fosamax for [...] She has hearing aids ([facility] in [place]). Obesity with body mass index 30 or greater 12/21 Arthritis, rheumatoid 08/17/2017 Overview (10/08/2021): RA Sees Dr. Nunez at [facility] [phone] fax [phone] Last Assessment & Plan: I went over [...] here today because [facility] will not supply her with 6 catheters /day. They told her that medicare would only cover 4 catheters/day. She only has 10 catheters left and needs a supply. I contacted Verónica Escalante NP [facility]. She sees her on a routine basis. She will provide Vanessa with enough catheters to get by until her order from [facility] is delivered. She will drive to [place] to apple picker the catheters. I had sent Dr. Lopez's order and visit note to [facility] in [place]. Renay Renee will process the order and [...] Encounters Date Type Department Care Team Description 06/04/2024 Travel 05/31/2024 Orders Only [facility] [address] [place] [address] Constanza Cardozo MD Lab (CBC with differential ) 05/30/2024 Orders Only [facility] Scanner 1 scan: (1-Ord) [facility], 05/30/2024 05/30/2024 Nurse Triage [facility] [address] [place] [address] Constanza Cardozo MD Leg Pain/problem 05/27/2024 10:49 AM MAINTENANCE SUPERVISOR MECHANICAL - 05/27/2024 11:59 PM MAINTENANCE SUPERVISOR MECHANICAL Hospital Encounter [facility] [address] [facility] [place] [address] Pancytopenia (HC) 05/27/2024 10:15 AM MAINTENANCE SUPERVISOR MECHANICAL Office Visit [facility] [address] [place] [address] Jamila Mckeon, POLICE CAPTAIN SENIOR Consult 05/27/2024 Travel 05/23/2024 Orders Only [facility] Scanner 1 scan: (1-Ord) INCOMING RECORDS-CT, [facility], 05/23/2024 05/23/2024 Orders Only [facility] Scanner 1 scan: (1-Ord) INCOMING RECORDS-LABS, [facility], 05/23/2024 05/21/2024 Telephone [facility] [address] [place] [address] Jamila Mckeon, POLICE CAPTAIN SENIOR Appointment 05/20/2024 11:15 AM MAINTENANCE SUPERVISOR MECHANICAL Office Visit [facility] [address] [place] [address] Riley Marquis MD Hospital F/U ([place], 05/13/24, mucositis) 05/20/2024 Travel 05/17/2024 Telephone [facility] [address] [place] [address] Constanza Cardozo MD Error-please disregard 05/14/2024 Orders Only [facility] Scanner 1 scan: (1-Ord) [facility], MULTIPLE LABS, 05/14/2024 05/14/2024 Orders Only [facility] Scanner 1 scan: (1-Ord) [place], CT CHEST W CON, 05/14/2024 05/14/2024 Orders Only [facility] Scanner 1 scan: (1-Ord) [facility], XR CHEST 2V, 05/14/2024 05/14/2024 Lab Requisition [facility] [phone] Ebony Lee MD 05/06/2024 1:25 PM MAINTENANCE SUPERVISOR MECHANICAL Office Visit [facility] [address] [place] [address] Riley Marquis MD Follow Up (oral sores- mouthwash does not seem to help ) 05/06/2024 Travel 05/06/2024 Nurse Triage [facility] [address] [facility] [address] Constanza Cardozo MD Mouth Problem 04/02/2024 2:00 PM MAINTENANCE SUPERVISOR MECHANICAL Office Visit [facility] [address] [facility] [address] [place] [address] Inga Caballero MD Consult (Hyperthyroidism ) 04/02/2024 Travel from Last 3 Months Immunizations Immunization Administration Dates Next Due COVID-19 VACCINE COMIRNATY [...] on file Legal Sex Female 3:06 PM MAINTENANCE SUPERVISOR MECHANICAL Gender Identity Not on file Sexual Orientation Not on file Obstetrics History Last Filed Vital Signs Vital Sign Reading Time Taken Comments Blood Pressure 175/74 05/27/2024 10:06 AM MAINTENANCE SUPERVISOR MECHANICAL Pulse 77 05/27/2024 10:06 AM MAINTENANCE SUPERVISOR MECHANICAL Temperature 36.6 C (97.8 F) 05/27/2024 10:06 AM MAINTENANCE SUPERVISOR MECHANICAL Respiratory Rate 16 05/27/2024 10:06 AM MAINTENANCE SUPERVISOR MECHANICAL Oxygen Saturation 98% 05/27/2024 10:06 AM MAINTENANCE SUPERVISOR MECHANICAL Inhaled Oxygen Concentration - - Weight 61.2 kg (135 lb) 05/27/2024 10:06 AM MAINTENANCE SUPERVISOR MECHANICAL Height 155.4 cm (5' 1.18) 05/27/2024 10:[address] Body Mass Index 25.36 05/27/2024 10:06 AM MAINTENANCE SUPERVISOR MECHANICAL Plan of Treatment Upcoming Encounters Date Type Department Care Team (Late st Contact Info) Description 06/24/2024 2:00 PM CDT Ancillary Procedure [facility] [address] [place] [address] 06/24/2024 2:30 PM CDT Ancillary Procedure [facility] [address] [place] [address] 08/08/2024 3:00 PM CDT Office Visit [facility] [address] [facility] [place] [address] Eliseo Dias MD [address] [facility] [address] [place] [address] 04/03/2025 2:15 PM MAINTENANCE SUPERVISOR MECHANICAL Office Visit [facility] [address] [facility] [address] [place] [address] [place] [address] [place] [address] Health Maintenance Due Date Last Done Comments Zoster (shingles) series for age 50+ (1 of 2) 12/04/1989 RSV vaccine for adults or (1 - 1-dose 75+ series) 12/04/2014 COVID-19 vaccine series ( season) 2024 02/13/2024, 02/13/2023, 01/04/2022, Additional history exists Depression screening for age [...] in Care Everywhere or Patient Record) Influenza Vaccine Completed 01/25/2024, , 01/02/2020, Additional history exists Medical Devices Implanted Type Area Adobe Developer Device Identifier Shelf Expiration Date Model / Serial / Lot Lead Bladder 28cm Interstim Tined 3mm Spacing - [id number] Implanted:Qty: 1 on 05/04/2016 by Cesar Groves MD at [facility] N/A: Sacrum [employer] 04/25/2020 3889-28# / / [id number] Stimulator 7.7mm 14cc Interstim Ii - [id number] Implanted:Qty: 1 on 05/11/2016 by Cesar Groves MD at [facility] N/A: Sacrum [employer] 10/07/2017 3058# / / [id number] Cmnt Bone 40g Simplex P Non Atb Mv - [id number] Implanted:Qty: 2 on 07/12/2017 by Ignacio Mead MD at [facility] Right: Knee [employer] 04/26/2018 6191-1-010 # / / [id number] Cmnt Bone 40g Simplex P Non Atb Mv - [id number] Implanted:Qty: 1 on 07/12/2017 by Ignacio Mead MD at [facility] Right: Knee [facility] 04/26/2018 6191-1-010 # / / [id number] E7928-Y-642 - [id number] Implanted:Qty: 1 on 07/12/2017 by Ignacio Mead MD at [facility] Right: Knee [employer] 04/27/2022 5551-G-350 / / [id number] Description:Triathlon X3 Asy mmetric patella D7100-P-730 - [id number] Implanted:Qty: 1 on 07/12/2017 by Ignacio Mead MD at [facility] Right: Knee [employer] [facility] 03/11/2022 5520-B-500 / / [id number] Description:Triathlon primar y tibial baseplate B3865-C-972 - [id number] Implanted:Qty: 1 on 07/12/2017 by Ignacio Mead MD at [facility] Right: Knee [employer] [facility] 05/21/2021 5510-F-502 / / [id number] Description:Triathlon crucia te retaining femoral Z6934-X-476 - [id number] Implanted:Qty: 1 on 07/12/2017 by Ignacio Mead MD at [facility] Right: Knee 5531-G-50 9 / / [id number] Description:X3 triathlon CS INS Explanted Type Area Adobe Developer Device Identifier Shelf Expiration Date Model / Serial / Lot Lead Intrdcr Bladder Interstim - [id number] Explanted:Qty: 1 on 05/04/2016 by Cesar Groves MD at [facility] N/A: Sacrum [employer] Pain Therapy 05/27/2017 3550-18# / / [id number] Procedures Procedure Name Priority Date/Time Associated Diagnosis Comments SCAN-ULTRASOUND REPORT 12:00 AM MAINTENANCE SUPERVISOR MECHANICAL CWS PATH REVIEW HEMATOLOGY Timed 05/27/2024 11:00 AM MAINTENANCE SUPERVISOR MECHANICAL Pancytopenia (HC) RED CELL MORPHOLOGY Timed 05/27/2024 1 1:00 AM MAINTENANCE SUPERVISOR MECHANICAL Pancytopenia (HC) PLATELET ESTIMATE Timed 05/27/2024 11: 00 AM MAINTENANCE SUPERVISOR MECHANICAL Pancytopenia (HC) MANUAL DIFFERENTIAL Timed 05/27/2024 1 1:00 AM MAINTENANCE SUPERVISOR MECHANICAL Pancytopenia (HC) CBC WITH AUTO DIFFERENTIAL Timed 05/27/2024 11:00 AM MAINTENANCE SUPERVISOR MECHANICAL Pancytopenia (HC) FERRITIN Today 05/27/2024 11:00 AM MAINTENANCE SUPERVISOR MECHANICAL Pancytopenia (HC) IRON PLUS IRON BINDING CAP Today 05/27/2024 11:00 AM MAINTENANCE SUPERVISOR MECHANICAL Pancytopenia (HC) HEPATIC FUNCTION PANEL Today 11:00 AM MAINTENANCE SUPERVISOR MECHANICAL Pancytopenia (HC) BASIC METABOLIC PANEL Today 05/27/2024 11:00 AM MAINTENANCE SUPERVISOR MECHANICAL Pancytopenia (HC) RETICULOCYTES Today 05/27/2024 11:00 AM MAINTENANCE SUPERVISOR MECHANICAL Pancytopenia (HC) CBC WITH AUTO DIFFERENTIAL Today 05/27/2024 11:00 AM MAINTENANCE SUPERVISOR MECHANICAL Pancytopenia (HC) SCAN CORRESP-LABORATORY RESULTS 05/23/2024 12:00 AM MAINTENANCE SUPERVISOR MECHANICAL SCAN CORRESP-IMAGING 05/23/2024 12:00 AM MAINTENANCE SUPERVISOR MECHANICAL CBC WITH AUTO DIFFERENTIAL Routine 05/20/2024 12:19 PM MAINTENANCE SUPERVISOR MECHANICAL Pancytopenia (HC) SCAN-LABORATORY REPORT 12:00 AM MAINTENANCE SUPERVISOR MECHANICAL SCAN-CT INTERPRETATION 12:00 AM MAINTENANCE SUPERVISOR MECHANICAL SCAN-RADIOLOGY REPORT 05/14/2024 12:00 AM MAINTENANCE SUPERVISOR MECHANICAL LAB TRACKING EVENT Routine 05/13/2024 7: 30 PM MAINTENANCE SUPERVISOR MECHANICAL PERIPHERAL BLD MORPHOLOGY Routine 05/13/2024 7:30 PM MAINTENANCE SUPERVISOR MECHANICAL XR DXA BONE DENSITY 2 SITES AXIAL Routine 10/06/2022 10:59 AM CDT Age-related osteoporosis without current pathological fracture from Last 3 Months or Most Recently Relevant to Health Maintenance Results * SCAN-ULTRASOUND REPORT (05/30/2024 12:00 AM MAINTENANCE SUPERVISOR MECHANICAL) Anatomical Region Laterality Modality Other us Scanner OTHER Final Result * CWS PATH REVIEW HEMATOLOGY (05/27/2024 11:00 AM MAINTENANCE SUPERVISOR MECHANICAL) PATH COMMENT Reviewed by Destiny Hylton MT, MS (ASCP) on 05/29/2024 05/30/2024 11:48 AM [facility] Blood BLOOD SPECIMEN / Unknown Venipuncture / Unknown 05/27/2024 11:00 AM MAINTENANCE SUPERVISOR MECHANICAL 05/27/2024 11:01 AM MAINTENANCE SUPERVISOR MECHANICAL Narrative [facility] - 05/30/2024 11:48 AM MAINTENANCE SUPERVISOR MECHANICAL This procedure was originally ordered at [facility]. This procedure was originally ordered at [facility]. This procedure was originally ordered at [facility]. us Jamila Mckeon NP LABORATORY Final Result [facility] [address] [address], [place] * (ABNORMAL) CBC WITH AUTO DIFFERENTIAL (05/27/2024 11:00 AM MAINTENANCE SUPERVISOR MECHANICAL) WHITE BLOOD COUNT 5.0 4.5 - 11.0 thou/cu mm 05/27/2024 12:03 PM [facility] RED BLOOD COUNT 3.42(L) 4.00 - 5.20 mil/cu mm 05/27/2024 12:03 PM [facility] HEMOGLOBIN 10.6(L) 12.0 - 16.0 g/dL 05/27/2024 12:03 PM [facility] HEMATOCRIT 33.5 33.0 - 51.0 % 05/27/2024 12:03 PM [facility] MCV 98 80 - 100 fL 05/27/2024 12:03 PM [facility] MCH 31.0 26.0 - 34.0 pg 05/27/2024 12:03 PM [facility] MCHC 31.6(L) 32.0 - 36.0 g/dL 05/27/2024 12:03 PM [facility] RDW 22.6(H) 11.5 - 15.5 % 05/27/2024 12:03 PM [facility] PLATELET COUNT 843(H) 140 - 440 thou/cu mm 05/27/2024 12:03 PM [facility] MPV 8.4 6.5 - 11.0 fL 05/27/2024 12:03 PM [facility] Blood BLOOD SPECIMEN / Unknown Venipuncture / Unknown 05/27/2024 11:00 AM MAINTENANCE SUPERVISOR MECHANICAL 05/27/2024 11:01 AM MAINTENANCE SUPERVISOR MECHANICAL [facility]ATORY - 05/27/2024 12:03 PM MAINTENANCE SUPERVISOR MECHANICAL This procedure was originally ordered at [facility]. This procedure was originally ordered at [facility]. This procedure was originally ordered at [facility]. Jamila Mckeon NP HEMATOLOGY Final Result Performing Organization Address [facility] Co ct Phone Number [facility] [address] [place] [address] * (ABNORMAL) RED CELL MORPHOLOGY (05/27/2024 11:00 AM MAINTENANCE SUPERVISOR MECHANICAL) ACANTHOCYTES Few 05/27/2024 12:03 PM [facility] ELLIPTOCYTES Few 05/27/2024 12:03 PM [facility] RBC COMMENT Present(A ) RBC morphology appears normal, RBC morphology within normal limits for newborns. 05/27/2024 12:03 PM [facility] Blood BLOOD SPECIMEN / Unknown Venipuncture / Unknown 05/27/2024 11:00 AM MAINTENANCE SUPERVISOR MECHANICAL 05/27/2024 11:01 AM MAINTENANCE SUPERVISOR MECHANICAL Narrative [facility] - 05/27/2024 12:03 PM MAINTENANCE SUPERVISOR MECHANICAL This procedure was originally ordered at [facility]. This procedure was originally ordered at [facility]. This procedure was originally ordered at [facility]. us Jamila Mckeon NP HEMATOLOGY Final Result Performing Organization Address [facility] Co de Phone Number [facility] [address] [place] [address] * (ABNORMAL) PLATELET ESTIMATE (05/27/2024 11:00 AM MAINTENANCE SUPERVISOR MECHANICAL) [facility] PLATELET ESTIMATE Increased (A) Adequate, No estimate 05/27/2024 12:03 PM [facility] Blood BLOOD SPECIMEN / Unknown Venipuncture / Unknown 05/27/2024 11:00 AM MAINTENANCE SUPERVISOR MECHANICAL 05/27/2024 11:01 AM [facility] LABORATORY - 05/27/2024 12:03 PM [facility] This procedure was originally ordered at [facility]. This procedure was originally ordered at [facility]. This procedure was originally ordered at [facility]. Jamila Mckeon NP HEMATOLOGY Final Result [facility] [address] [place] [address] * MANUAL DIFFERENTIAL (05/27/2024 11:00 AM [facility]) [facility] % NEUTROPHILS 63.0 % 05/27/2024 12:03 PM [facility] % LYMPHOCYTES 28.0 % 05/27/2024 12:03 PM [facility] % MONOCYTES 4.0 % 05/27/2024 12:03 PM [facility] % EOSINOPHILS 2.0 % 05/27/2024 12:03 PM [facility] % BASOPHILS 3.0 % 05/27/2024 12:03 PM [facility] NEUTROPHILS ABSOLUTE 3.2 1.7 - 7.0 thou/cu mm 05/27/2024 12:03 PM [facility] LYMPHOCYTES ABSOLUTE 1.4 0.9 - 2.9 thou/cu mm 05/27/2024 12:03 PM [facility] MONOCYTES ABSOLUTE 0.2 <0.9 thou/cu mm 05/27/2024 12:03 PM [facility] EOSINOPHILS ABSOLUTE 0.1 <0.5 thou/cu mm 05/27/2024 12:03 PM [facility] BASOPHILS ABSOLUTE 0.2 <0.3 thou/cu mm 05/27/2024 12:03 PM MAINTENANCE SUPERVISOR MECHANICAL [facility] Blood BLOOD SPECIMEN / Unknown Venipuncture / Unknown 05/27/2024 11:00 AM MAINTENANCE SUPERVISOR MECHANICAL 05/27/2024 11:01 AM MAINTENANCE SUPERVISOR MECHANICAL Narrative [facility] - 05/27/2024 12:03 PM MAINTENANCE SUPERVISOR MECHANICAL This procedure was originally ordered at [facility]. This procedure was originally ordered at [facility]. This procedure was originally ordered at [facility]. us Jamila Mckeon NP HEMATOLOGY Final Result Performing Organization Address City/[facility]/ZIP Co de Phone Number [facility] [address] [place] [address] * (ABNORMAL) IRON PLUS IRON BINDING CAP (05/27/2024 11:00 AM MAINTENANCE SUPERVISOR MECHANICAL) IRON 93 37 - 145 ug/dL 05/28/2024 1:34 AM MAINTENANCE SUPERVISOR MECHANICAL [facility] UIBC (UNSATURATED) 110(L) 112 - 347 ug/dL 05/28/2024 1:34 AM MAINTENANCE SUPERVISOR MECHANICAL [facility] IRON BINDING CAPACITY 203(L) 250 - 400 ug/dL 05/28/2024 1:34 AM [facility] IRON,% SATURATION 46 14 - 50 % 05/28/2024 1:34 AM [facility] Blood BLOOD SPECIMEN / Unknown Venipuncture / Unknown 05/27/2024 11:00 AM MAINTENANCE SUPERVISOR MECHANICAL 05/27/2024 11:01 AM MAINTENANCE SUPERVISOR MECHANICAL us Jamila Mckeon NP CHEMISTRY Final Result [facility] [address] [place] [address], [place] * RETICULOCYTES (05/27/2024 11:00 AM MAINTENANCE SUPERVISOR MECHANICAL) RETIC% 1.5 0.5 - 1.5 % 05/27/2024 10:56 PM MAINTENANCE SUPERVISOR MECHANICAL [facility] RETIC (ABSOLUTE) 0.05 0.03 - 0.08 mil/cu mm 05/27/2024 10:56 PM MAINTENANCE SUPERVISOR MECHANICAL [facility] Blood BLOOD SPECIMEN / Unknown Venipuncture / Unknown 05/27/2024 11:00 AM MAINTENANCE SUPERVISOR MECHANICAL 05/27/2024 11:01 AM MAINTENANCE SUPERVISOR MECHANICAL Narrative [facility] - 05/27/2024 10:56 PM MAINTENANCE SUPERVISOR MECHANICAL This procedure was originally ordered at [facility]. us Jamila Mckeon NP HEMATOLOGY Final Result Performing Organization Address [facility] Co de Phone Number [facility] [address] [place] [address], [place] * (ABNORMAL) FERRITIN (05/27/2024 11:00 AM MAINTENANCE SUPERVISOR MECHANICAL) FERRITIN 1,217.0(H) 15.0 - 150.0 ng/mL 05/28/2024 1:35 AM MAINTENANCE SUPERVISOR MECHANICAL [facility] Blood BLOOD SPECIMEN / Unknown Venipuncture / Unknown 05/27/2024 11:00 AM MAINTENANCE SUPERVISOR MECHANICAL 05/27/2024 11:01 AM MAINTENANCE SUPERVISOR MECHANICAL us Jamila Mckeon NP CHEMISTRY Final Result Performing Organization Address [facility] Co de Phone Number [facility] [address] [place] [address], [place] * (ABNORMAL) HEPATIC FUNCTION PANEL (05/27/2024 11:00 AM MAINTENANCE SUPERVISOR MECHANICAL) ALBUMIN 3.9(L) 4.0 - 4.9 g/dL 05/27/2024 11:27 AM [facility] PROTEIN,TOTAL 6.7 6.0 - 8.0 g/dL 05/27/2024 11:27 AM [facility] BILIRUBIN,TOTAL 0.3 0.0 - 1.2 mg/dL 05/27/2024 11:27 AM MAINTENANCE SUPERVISOR MECHANICAL [facility] BILIRUBIN,DIRECT 0.2 0.0 - 0.2 mg/dL 05/27/2024 11:27 AM [facility] BILIRUBIN,INDIRE CT 0.1(L) 0.2 - 0.8 mg/dL 05/27/2024 11:27 AM [facility] ALK PHOSPHATASE 97 35 - 104 IU/L 05/27/2024 11:27 AM [facility] ALT (SGPT) 43(H) 10 - 35 IU/L 05/27/2024 11:27 AM [facility] AST (SGOT) 52(H) 10 - 35 IU/L 05/27/2024 11:27 AM [facility] Blood BLOOD SPECIMEN / Unknown Venipuncture / Unknown 05/27/2024 11:00 AM MAINTENANCE SUPERVISOR MECHANICAL 05/27/2024 11:01 AM [facility] us Jamila Mckeon NP CHEMISTRY Final Result [facility] [address] [place] [address] * (ABNORMAL) BASIC METABOLIC PANEL (05/27/2024 11:00 AM [facility]) SODIUM 139 136 - 145 mmol/L 05/27/2024 11:27 AM [facility] POTASSIUM 4.1 3.5 - 5.1 mmol/L 05/27/2024 11:27 AM [facility] CHLORIDE 103 98 - 107 mmol/L 05/27/2024 11:27 AM [facility] CO2,TOTAL 25 22 - 29 mmol/L 05/27/2024 11:27 AM [facility] ANION GAP 11 5 - 18 05/27/2024 11:27 AM [facility] GLUCOSE 110(H) 70 - 99 mg/dL 05/27/2024 11:27 AM [facility] CALCIUM 9.0 8.8 - 10.4 mg/dL 05/27/2024 11:27 AM [facility] Comment: Reference ranges for this test were updated on 01/30/2024 to reflect our healthy population more accurately. Reference range changes are not retroactively applied to results, but previous results using the same methodology can be interpreted in the context of the new reference range. BUN 21 8 - 23 mg/dL 05/27/2024 11:27 AM [facility] CREATININE 0.90 0.50 - 0.90 mg/dL 05/27/2024 11:27 AM [facility] BUN/CREAT RATIO 23(H) 10 - 20 11:27 AM [facility] eGFR 63(L) >90 mL/min/1. 73m2 05/27/2024 11:27 AM [facility] Comment:As of 2021, eG FR is calculated by the CKD-EPI creatinine equation without race adjustment. eGFR can be influenced by muscle mass, exercise, and diet. The reported eGFR is an estimation only and is only applicable if the renal function is stable. Blood BLOOD SPECIMEN / Unknown Venipuncture / Unknown 05/27/2024 11:00 AM MAINTENANCE SUPERVISOR MECHANICAL 05/27/2024 11:01 AM MAINTENANCE SUPERVISOR MECHANICAL us Jamila Mckeon NP CHEMISTRY Final Result [facility] [address] [place] [address] * SCAN CORRESP-LABORATORY RESULTS (05/23/2024 12:00 AM MAINTENANCE SUPERVISOR MECHANICAL) us Scanner OTHER Final Result * SCAN CORRESP-IMAGING (05/23/2024 12:00 AM MAINTENANCE SUPERVISOR MECHANICAL) Anatomical Region Laterality Modality Other us Scanner OTHER Final Result * (ABNORMAL) CBC AND DIFFERENTIAL (05/20/2024 12:19 PM MAINTENANCE SUPERVISOR MECHANICAL) WHITE BLOOD CELL COUNT 5.2 3.8 - [...] BLOOD SPECIMEN / Unknown 05/20/2024 12:19 PM MAINTENANCE SUPERVISOR MECHANICAL 05/20/2024 12:21 PM MAINTENANCE SUPERVISOR MECHANICAL us Riley Marquis MD HEMATOLOGY Final Result [facility] [address] [place] [address], [facility] [address] [place] [address] * SCAN-RADIOLOGY REPORT (05/14/2024 12:00 AM MAINTENANCE SUPERVISOR MECHANICAL) Anatomical Region Laterality Modality Other us Scanner OTHER Final Result * SCAN-LABORATORY REPORT (05/14/2024 12:00 AM MAINTENANCE SUPERVISOR MECHANICAL) us Scanner OTHER Final Result * SCAN-CT INTERPRETATION (05/14/2024 12:00 AM MAINTENANCE SUPERVISOR MECHANICAL) Anatomical Region Laterality Modality Other us Scanner OTHER Final Result * LAB TRACKING EVENT (05/13/2024 7:30 PM MAINTENANCE SUPERVISOR MECHANICAL) Other (Other) Client Collect / Unknown 05/13/2024 7:30 PM MAINTENANCE SUPERVISOR MECHANICAL 05/14/2024 10:14 PM MAINTENANCE SUPERVISOR MECHANICAL us Ebony Lee MD LAB BILL ONLY Final Result [facility] [facility] [address] [place], [place] [address], * PERIPHERAL BLD MORPHOLOGY (05/13/2024 7:30 PM MAINTENANCE SUPERVISOR MECHANICAL) Case Report Special Hematology Report Case: [id number] Authorizing Provider: Ebony Lee, Collected: 05/13/20241929 Ordering Location: [facility] Received: 05/15/2024 0718 Pathologist: Ignacio Trammell MD Specimen: Peripheral Blood 05/20/2024 12:37 PM MAINTENANCE SUPERVISOR MECHANICAL [facility] EN[facility]AL LAB[facility]ATORY Amendment 05/20/2024 - Absolute lymphocyte count corrected. 05/20/2024 12:37 PM MAINTENANCE SUPERVISOR MECHANICAL [facility] [employer] [facility]WA LABORATORY Final Diagnosis PERIPHERAL BLOOD: 1. Moderate normocytic anemia 2. Moderate thrombocytopenia 3. Leukopenia with normal differential counts 4. See comment 05/20/2024 12:37 PM MAINTENANCE SUPERVISOR MECHANICAL [facility] ENTRAL LABORATORY Amendment electronically signed by Ignacio [...] was also reviewed by Destiny Hylton [place], [place] ([facility]). 05/20/2024 12:37 PM [facility] [employer] LABORATORY- ENTRAL LABORATORY Clinical Information The patient is not 83-year-old female. Per CBC scan: Anemia, leukopenia, and thrombocytopenia. Per EPIC: Additional history includes hypertension, rheumatoid arthritis, and hypertensive kidney disease. She is currently receiving prednisone. 05/20/2024 12:37 PM MAINTENANCE SUPERVISOR MECHANICAL [facility] CBC and Differential HEMATOLOGY PARAMETERS Tested at: [facility] RESULTS EXPECTED VALUES WBC: 3.0 [id number]/cumm DECREASED RBC: 2.25 4.00-5.20 mil/cummDECREASED HGB: 7.4 12-16 gm/dl DECREASED HCT: 21.9 33-51% DECREASED MCV: 97.0 80-100 fl NORMOCYTIC MCH: 32.9 26-34 pg MCHC: 33.8 32-36 gm/dl NORMOCHROMIC RDW: 232 11.5-15.5% ELEVATED PLT: 69 [id number]/uL DECREASED Retic: 0.5 0.5-1.5% Differential Absolute (%) Expected (%) (x10*9/L) (x10*9/L) Neutrophils: 1.9932 (66) 1.7-7.0 (42-72%) Lymphocytes: 0.8758 (29) 0.9-2.9 (20-44%) DECREASED Eosinophils: 0.1 (3.3) <0.5 (0-2%) 05/20/2024 12:37 PM MAINTENANCE SUPERVISOR MECHANICAL [employer] LABORATORY-C [facility]TRWA LABORATORY Microscopic Description The final diagnosis is based on microscopic examination of an appropriately stained blood smear. 05/20/2024 12:37 PM MAINTENANCE SUPERVISOR MECHANICAL [employer] LABORATORY-C ENTRAL LABORATORY Additional Information Interpreted at [facility] [email or web address] Central Laboratory - [address] [facility] [address], [place] [address] 05/20/2024 12:37 PM MAINTENANCE SUPERVISOR MECHANICAL [facility] LABORAT[facility]-C ENTRAL LABORATORY Blood (Peripheral Blood) 05/13/2024 7:30 PM MAINTENANCE SUPERVISOR MECHANICAL 05/15/2024 7:18 AM MAINTENANCE SUPERVISOR MECHANICAL us Ebony Lee MD HEMATOLOGY Edited Result - Final [facility] [address] [place] [address], [place] * (ABNORMAL) XR DXA BONE DENSITY 2 [...] Patients: Results are automatically released to your [employer] account once available, in compliance with federal regulations. This means that you may see your results before your provider has had a chance to review them. Please allow 2-3 business days for your provider to comment on the results. XR DXA Bone Mineral Density (BMD) EXAM LOCATION: [facility] [address] [facility] [place] [address] PATIENT NAME: Vanessa Andino DATE OF : [...] scanners are made by the same regional production manager. 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 POLST 07/14/2017 8:01 AM 01/12/2017 Power of Printed Circuit Boards Inspector 07/14/2017 7:57 AM 01/06 Healthcare Directive 07/14/2017 7:57 AM * Full Code (Latest Code Status on File) Date Activated Date Inactivated Comments 07/12/2017 7:10 AM 07/14/2017 4:57 PM * Full Code Date Activated Date Inactivated Comments 05/11/2016 10:33 AM 05/11/2016 7:12 PM * Full Code Date Activated Date Inactivated Comments 05/04/2016 7:01 AM 05/04/2016 3:[address] Abstractor Relationship Specialty Start Date End Date Constanza Cardozo MD [address] [place] [address] PCP - General Family Practice 08/25/22 [place], CHRISTIANNE Wang Ball Machine Operator 07/13/17 Sharif Nunez MD [address] [facility] [address] [place] [address] Rheumatology 10/08/21 Riley Camacho MD [address] [place] [address] [place] [address] Surgery - Urology 08/25/22 [place] [address] [place] [address] Endocrinology Endocrinology 04/02/24
[2024-06-11 03:07] VITALS: BP 163/62; PULSE 91; RESP 18; TEMP 36.7; O2SAT 97; BMI 25.5
[2024-06-11] MEDS: cephALEXin 500 MG CAPSULE PO (03:36)
[2024-06-11] MEDS: TRAMADOL HCL 50 MG TABLET PO (03:36)
--- OUTSIDE RECORDS SUMMARY | 2024-06-11 03:45 | XMS_ITS | Clinical Summary ---
Author Organization [facility] Address [facility] [place] [address] Care Team Providers Care Slate Mixer Name Role Phone Claudia Beto Ivan FAUST Unavailable [phone] Sharif Nunez MD Unavailable [phone] Riley Camacho MD Unavailable [phone] Constanza Cardozo MD Primary Care Provider [phone] Inga Caballero MD Unavailable [phone] Allergies Active Allergy Reactions Criticality Noted [...] weekly d/t ckd - Endo E-consult at [place] 10/09/2020 with recommendation to continue fosamax for [...] She has hearing aids ([facility] in [place]). Obesity with body mass index 30 or greater 12/21 Arthritis, rheumatoid 08/17/2017 Overview (10/08/2021): RA Sees Dr. Nunez at [facility] [phone] fax [phone] Last Assessment & Plan: I went over [...] here today because [facility] 20/20 [employer] will not supply her with 6 catheters /day. They told her that medicare would only cover 4 catheters/day. She only has 10 catheters left and needs a supply. I contacted Verónica Escalante NP [facility] [facility]. She sees her on a routine basis. She will provide Vanessa with enough catheters to get by until her order from [facility] is delivered. She will drive to [place] to vegetable picker the catheters. I had sent Dr. Lopez's order and visit note to [facility] in [place]. Renay Renee will process the order and [...] Team Description 06/04/2024 Travel 05/31/2024 Orders Only [facility] [address] [place], [place] [address] Constanza Cardozo MD Lab (CBC with differential ) 05/30/2024 Orders Only [facility] HIM SERVICES Scanner 1 scan: (1-Ord) [facility], 05/30/2024 05/30/2024 Nurse Triage [facility] [address] [place] [address] Constanza Cardozo MD Leg Pain/problem 05/27/2024 10:49 AM TIPPLE REPAIRER - 05/27/2024 11:59 PM TIPPLE REPAIRER Hospital Encounter [facility] [address] [facility] [place] [address] Pancytopenia (HC) 05/27/2024 10:15 AM TIPPLE REPAIRER Office Visit [facility] [address] [place] [address] Jamila Mckeon, JIG GRINDER SET UP OPERATOR Consult 05/27/2024 Travel 05/23/2024 Orders Only [facility] HIM SERVICES Scanner 1 scan: (1-Ord) INCOMING RECORDS-CT, [facility], 05/23/2024 05/23/2024 Orders Only [facility] HIM SERVICES Scanner 1 scan: (1-Ord) INCOMING RECORDS-LABS, [facility], 05/23/2024 05/21/2024 Telephone [facility] [address] [place] [place] [address] Jamila Mckeon, JIG GRINDER SET UP OPERATOR Appointment 05/20/2024 11:15 AM TIPPLE REPAIRER Office Visit [facility] [address] [place] [address] Riley Marquis MD Hospital F/U ([place], 05/13/24, mucositis) 05/20/2024 Travel 05/17/2024 Telephone [facility] [address] [place] [address] Constanza Cardozo MD Error-please disregard 05/14/2024 Orders Only [facility] HIM SERVICES Scanner 1 scan: (1-Ord) [facility], MULTIPLE LABS, 05/14/2024 05/14/2024 Orders Only [facility] HIM SERVICES Scanner 1 scan: (1-Ord) [place], CT CHEST W CON, 05/14/2024 05/14/2024 Orders Only [facility] HIM SERVICES Scanner 1 scan: (1-Ord) [facility], XR CHEST 2V, 05/14/2024 05/14/2024 Lab Requisition [facility] [phone] Ebony Lee MD 05/06/2024 1:25 PM TIPPLE REPAIRER Office Visit [facility] [address] [place] [address] Riley Marquis MD Follow Up (oral sores- mouthwash does not seem to help ) 05/06/2024 Travel 05/06/2024 Nurse Triage [facility] [address] [facility] [address] Constanza Cardozo MD Mouth Problem 04/02/2024 2:00 PM TIPPLE REPAIRER Office Visit Counts Include 234 Beds At [facility] [address] [facility] [address] [place] [address] Inga Caballero MD Consult (Hyperthyroidism ) 04/02/2024 [...] on file Legal Sex Female 3:06 PM TIPPLE REPAIRER Gender Identity Not on file Sexual Orientation Not on file Obstetrics History Last Filed Vital Signs Vital Sign Reading Time Taken Comments Blood Pressure 175/74 05/27/2024 10:06 AM TIPPLE REPAIRER Pulse 77 05/27/2024 10:06 AM TIPPLE REPAIRER Temperature 36.6 C (97.8 F) 05/27/2024 10:06 AM TIPPLE REPAIRER Respiratory Rate 16 05/27/2024 10:06 AM TIPPLE REPAIRER Oxygen Saturation 98% 05/27/2024 10:06 AM TIPPLE REPAIRER Inhaled Oxygen Concentration - - Weight 61.2 kg (135 lb) 05/27/2024 10:06 AM TIPPLE REPAIRER Height 155.4 cm (5' 1.18) 05/27/2024 10:[address] Body Mass Index 25.36 05/27/2024 10:06 AM TIPPLE REPAIRER Plan of Treatment Upcoming Encounters Date Type Department Care Team (Late st Contact Info) Description 06/24/2024 2:00 PM CDT Ancillary Procedure [facility] [address] [place] [address] 06/24/2024 2:30 PM CDT Ancillary Procedure [facility] [address] [place] [address] [address] 08/08/2024 3:00 PM CDT Office Visit [facility] [address] [facility] [place] [address] Eliseo Dias MD [address] [facility] [address] [place] [address] 04/03/2025 2:15 PM TIPPLE REPAIRER Office Visit [facility] [address] [facility] [address] [place] [address] [place] [address] [place] [address] Health Maintenance Due Date Last Done Comments [...] history exists Medical Devices Implanted Type Area Technical Asst Device Identifier Shelf Expiration Date Model / Serial / Lot Lead Bladder 28cm Interstim Tined 3mm Spacing - [id number] Implanted:Qty: 1 on 05/04/2016 by Cesar Groves MD at [facility] N/A: Sacrum [employer] 04/25/2020 3889-28# / / [id number] Stimulator 7.7mm 14cc Interstim Ii - [id number] Implanted:Qty: 1 on 05/11/2016 by Cesar Groves MD at [facility] N/A: Sacrum [employer] 10/07/2017 3058# / / [id number] Cmnt Bone 40g Simplex P Non Atb Mv - [id number] Implanted:Qty: 2 on 07/12/2017 by Ignacio Mead MD at [facility] Right: Knee [employer] 04/26/2018 6191-1-010 # / / [id number] Cmnt Bone 40g Simplex P Non Atb Mv - [id number] Implanted:Qty: 1 on 07/12/2017 by Ignacio Mead MD at [facility] Right: Knee [employer] 04/26/2018 6191-1-010 # / / [id number] P3149-C-963 - [id number] Implanted:Qty: 1 on 07/12/2017 by Ignacio Mead MD at [facility] Right: Knee [employer] 04/27/2022 5551-G-350 / / [id number] Description:Triathlon X3 Asy mmetric patella L4828-F-476 - [id number] Implanted:Qty: 1 on 07/12/2017 by Ignacio Mead MD at [facility] Right: Knee [employer] 03/11/2022 5520-B-500 / / [id number] Description:Triathlon primar y tibial baseplate I7171-U-165 - [id number] Implanted:Qty: 1 on 07/12/2017 by Ignacio Mead MD at [facility] Right: Knee [employer] 05/21/2021 5510-F-502 / / [id number] Description:Triathlon crucia te retaining femoral W0538-D-279 - [id number] Implanted:Qty: 1 on 07/12/2017 by Ignacio Mead MD at [facility] Right: Knee 5531-G-50 9 / / [id number] Description:X3 triathlon CS INS Explanted Type Area Technical Asst Device Identifier Shelf Expiration Date Model / Serial / Lot Lead Intrdcr Bladder Interstim - [id number] Explanted:Qty: 1 on 05/04/2016 by Cesar Groves MD at [facility] N/A: Sacrum [employer] 05/27/2017 3550-18# / / [id number] Procedures Procedure Name Priority Date/Time Associated Diagnosis Comments SCAN-ULTRASOUND REPORT 12:00 AM TIPPLE REPAIRER CWS PATH REVIEW HEMATOLOGY Timed 05/27/2024 11:00 AM TIPPLE REPAIRER Pancytopenia (HC) RED CELL MORPHOLOGY Timed 05/27/2024 1 1:00 AM TIPPLE REPAIRER Pancytopenia (HC) PLATELET ESTIMATE Timed 05/27/2024 11: 00 AM TIPPLE REPAIRER Pancytopenia (HC) MANUAL DIFFERENTIAL Timed 05/27/2024 1 1:00 AM TIPPLE REPAIRER Pancytopenia (HC) CBC WITH AUTO DIFFERENTIAL Timed 05/27/2024 11:00 AM TIPPLE REPAIRER Pancytopenia (HC) FERRITIN Today 05/27/2024 11:00 AM TIPPLE REPAIRER Pancytopenia (HC) IRON PLUS IRON BINDING CAP Today 05/27/2024 11:00 AM TIPPLE REPAIRER Pancytopenia (HC) HEPATIC FUNCTION PANEL Today 11:00 AM TIPPLE REPAIRER Pancytopenia (HC) BASIC METABOLIC PANEL Today 05/27/2024 11:00 AM TIPPLE REPAIRER Pancytopenia (HC) RETICULOCYTES Today 05/27/2024 11:00 AM TIPPLE REPAIRER Pancytopenia (HC) CBC WITH AUTO DIFFERENTIAL Today 05/27/2024 11:00 AM TIPPLE REPAIRER Pancytopenia (HC) SCAN CORRESP-LABORATORY RESULTS 05/23/2024 12:00 AM TIPPLE REPAIRER SCAN CORRESP-IMAGING 05/23/2024 12:00 AM TIPPLE REPAIRER CBC WITH AUTO DIFFERENTIAL Routine 05/20/2024 12:19 PM TIPPLE REPAIRER Pancytopenia (HC) SCAN-LABORATORY REPORT 12:00 AM TIPPLE REPAIRER SCAN-CT INTERPRETATION 12:00 AM TIPPLE REPAIRER SCAN-RADIOLOGY REPORT 05/14/2024 12:00 AM TIPPLE REPAIRER LAB TRACKING EVENT Routine 05/13/2024 7: 30 PM TIPPLE REPAIRER PERIPHERAL BLD MORPHOLOGY Routine 05/13/2024 7:30 PM TIPPLE REPAIRER XR DXA BONE DENSITY 2 SITES AXIAL Routine 10/06/2022 10:59 AM CDT Age-related osteoporosis without current pathological fracture from Last 3 Months or Most Recently Relevant to Health Maintenance Results * SCAN-ULTRASOUND REPORT (05/30/2024 12:00 AM TIPPLE REPAIRER) Anatomical Region Laterality Modality Other us Scanner OTHER Final Result * CWS PATH REVIEW HEMATOLOGY (05/27/2024 11:00 AM TIPPLE REPAIRER) PATH COMMENT Reviewed by Destiny Hylton MT, MS (ASCP) on 05/29/2024 05/30/2024 11:48 AM [facility] LABORATORY Blood BLOOD SPECIMEN / Unknown Venipuncture / Unknown 05/27/2024 11:00 AM TIPPLE REPAIRER 05/27/2024 11:01 AM TIPPLE REPAIRER Narrative [facility] LABORATORY - 05/30/2024 11:48 AM TIPPLE REPAIRER This procedure was originally ordered at [facility]. This procedure was originally ordered at [facility]. This procedure was originally ordered at [facility]. us Jamila Mckeon NP LABORATORY Final Result [facility] [address] [place] [address], [place] * (ABNORMAL) CBC WITH AUTO DIFFERENTIAL (05/27/2024 11:00 AM TIPPLE REPAIRER) WHITE BLOOD COUNT 5.0 4.5 - 11.0 thou/cu mm 05/27/2024 12:03 PM [facility] RED BLOOD COUNT 3.42(L) 4.00 - 5.20 mil/cu mm 05/27/2024 12:03 PM [facility] HEMOGLOBIN 10.6(L) 12.0 - 16.0 g/dL 05/27/2024 12:03 PM [facility] HEMATOCRIT 33.5 33.0 - 51.0 % 05/27/2024 12:03 PM [facility] MCV 98 80 - 100 fL 05/27/2024 12:03 PM [facility] MCH 31.0 26.0 - 34.0 pg 05/27/2024 12:03 PM [facility] MCHC 31.6(L) 32.0 - 36.0 g/dL 05/27/2024 12:03 PM [facility] RDW 22.6(H) 11.5 - 15.5 % 05/27/2024 12:03 PM [facility] PLATELET COUNT 843(H) 140 - 440 thou/cu mm 05/27/2024 12:03 PM [facility] MPV 8.4 6.5 - 11.0 fL 05/27/2024 12:03 PM [facility] Blood BLOOD SPECIMEN / Unknown Venipuncture / Unknown 05/27/2024 11:00 AM TIPPLE REPAIRER 05/27/2024 11:01 AM TIPPLE REPAIRER [facility] LABORATORY - 05/27/2024 12:03 PM TIPPLE REPAIRER This procedure was originally ordered at [facility]. This procedure was originally ordered at [facility]. This procedure was originally ordered at [facility]. Jamila Mckeon NP HEMATOLOGY Final Result Performing Organization Address [facility] Co tn Phone Number [facility] [address] [facility] [place] [address] * (ABNORMAL) RED CELL MORPHOLOGY (05/27/2024 11:00 AM TIPPLE REPAIRER) ACANTHOCYTES Few 05/27/2024 12:03 PM [facility] ELLIPTOCYTES Few 05/27/2024 12:03 PM [facility] RBC COMMENT Present(A ) RBC morphology appears normal, RBC morphology within normal limits for newborns. 05/27/2024 12:03 PM [facility] Blood BLOOD SPECIMEN / Unknown Venipuncture / Unknown 05/27/2024 11:00 AM TIPPLE REPAIRER 05/27/2024 11:01 AM TIPPLE REPAIRER Narrative [facility] LAB[facility] - 05/27/2024 12:03 PM TIPPLE REPAIRER This procedure was originally ordered at [facility]. This procedure was originally ordered at [facility]. This procedure was originally ordered at [facility]. us Jamila Mckeon NP HEMATOLOGY Final Result Performing Organization Address [facility] Co de Phone Number [facility] [address] [facility] [place] [address] * (ABNORMAL) PLATELET ESTIMATE (05/27/2024 11:00 AM TIPPLE REPAIRER) [facility] PLATELET ESTIMATE Increased (A) Adequate, No estimate 05/27/2024 12:03 PM [facility] Blood BLOOD SPECIMEN / Unknown Venipuncture / Unknown 05/27/2024 11:00 AM TIPPLE REPAIRER 05/27/2024 11:[address] [facility] LABORATORY - 05/27/2024 12:03 PM [facility] This procedure was originally ordered at [facility]. This procedure was originally ordered at [facility]. This procedure was originally ordered at [facility]. Jamila Mckeon NP HEMATOLOGY Final Result [facility] [address] [facility] [place] [address] * MANUAL DIFFERENTIAL (05/27/2024 11:00 AM [facility]) [facility] % NEUTROPHILS 63.0 % 05/27/2024 12:03 PM [facility] % LYMPHOCYTES 28.0 % 05/27/2024 12:03 PM [facility] % MONOCYTES 4.0 % 05/27/2024 12:03 PM [facility] % EOSINOPHILS 2.0 % 05/27/2024 12:03 PM [facility] % BASOPHILS 3.0 % 05/27/2024 12:03 PM [facility] NEUTROPHILS ABSOLUTE 3.2 1.7 - 7.0 thou/cu mm 05/27/2024 12:03 PM [facility] LYMPHOCYTES ABSOLUTE 1.4 0.9 - 2.9 thou/cu mm 05/27/2024 12:03 PM [facility] MONOCYTES ABSOLUTE 0.2 <0.9 thou/cu mm 05/27/2024 12:03 PM [facility] EOSINOPHILS ABSOLUTE 0.1 <0.5 thou/cu mm 05/27/2024 12:03 PM [facility] BASOPHILS ABSOLUTE 0.2 <0.3 thou/cu mm 05/27/2024 12:03 PM TIPPLE REPAIRER [facility] Blood BLOOD SPECIMEN / Unknown Venipuncture / Unknown 05/27/2024 11:00 AM TIPPLE REPAIRER 05/27/2024 11:01 AM TIPPLE REPAIRER Narrative [facility] LAB[facility] - 05/27/2024 12:03 PM TIPPLE REPAIRER This procedure was originally ordered at [facility]. This procedure was originally ordered at [facility]. This procedure was originally ordered at [facility]. us Jamila Mckeon NP HEMATOLOGY Final Result Performing Organization Address City/[facility]/ZIP Co de Phone Number [facility] [address] [place] [address] * (ABNORMAL) IRON PLUS IRON BINDING CAP (05/27/2024 11:00 AM TIPPLE REPAIRER) IRON 93 37 - 145 ug/dL 05/28/2024 1:34 AM TIPPLE REPAIRER [facility] TRAL LABORATORY UIBC (UNSATURATED) 110(L) 112 - 347 ug/dL 05/28/2024 1:34 AM TIPPLE REPAIRER [facility] TRAL LABORATORY IRON BINDING CAPACITY 203(L) 250 - 400 ug/dL 05/28/2024 1:34 AM [facility] LABORATORY IRON,% SATURATION 46 14 - 50 % 05/28/2024 1:34 AM [facility] Blood BLOOD SPECIMEN / Unknown Venipuncture / Unknown 05/27/2024 11:00 AM TIPPLE REPAIRER 05/27/2024 11:01 AM TIPPLE REPAIRER us Jamila Mckeon NP CHEMISTRY Final Result [facility] [address] [place] [address], [place] * RETICULOCYTES (05/27/2024 11:00 AM TIPPLE REPAIRER) RETIC% 1.5 0.5 - 1.5 % 05/27/2024 10:56 PM TIPPLE REPAIRER [facility] LABORATORY RETIC (ABSOLUTE) 0.05 0.03 - 0.08 mil/cu mm 05/27/2024 10:56 PM TIPPLE REPAIRER [facility] LABORATORY Blood BLOOD SPECIMEN / Unknown Venipuncture / Unknown 05/27/2024 11:00 AM TIPPLE REPAIRER 05/27/2024 11:01 AM TIPPLE REPAIRER Narrative [facility] - 05/27/2024 10:56 PM TIPPLE REPAIRER This procedure was originally ordered at [facility]. us Jamila Mckeon NP HEMATOLOGY Final Result Performing Organization Address [facility] Co de Phone Number [facility] [address] [place] [address], [place] * (ABNORMAL) FERRITIN (05/27/2024 11:00 AM TIPPLE REPAIRER) FERRITIN 1,217.0(H) 15.0 - 150.0 ng/mL 05/28/2024 1:35 AM TIPPLE REPAIRER [facility] LABORAT[facility] Blood BLOOD SPECIMEN / Unknown Venipuncture / Unknown 05/27/2024 11:00 AM TIPPLE REPAIRER 05/27/2024 11:01 AM TIPPLE REPAIRER us Jamila Mckeon NP CHEMISTRY Final Result Performing Organization Address [facility] Co de Phone Number [facility] [address] [place] [address], [place] * (ABNORMAL) HEPATIC FUNCTION PANEL (05/27/2024 11:00 AM TIPPLE REPAIRER) ALBUMIN 3.9(L) 4.0 - 4.9 g/dL 05/27/2024 11:27 AM [facility] PROTEIN,TOTAL 6.7 6.0 - 8.0 g/dL 05/27/2024 11:27 AM [facility] BILIRUBIN,TOTAL 0.3 0.0 - 1.2 mg/dL 05/27/2024 11:27 AM TIPPLE REPAIRER [facility] LAB[facility] BILIRUBIN,DIRECT 0.2 0.0 - 0.2 mg/dL 05/27/2024 11:27 AM [facility] LAB[facility] BILIRUBIN,INDIRE CT 0.1(L) 0.2 - 0.8 mg/dL 05/27/2024 11:27 AM [facility] ALK PHOSPHATASE 97 35 - 104 IU/L 05/27/2024 11:27 AM [facility] ALT (SGPT) 43(H) 10 - 35 IU/L 05/27/2024 11:27 AM [facility] AST (SGOT) 52(H) 10 - 35 IU/L 05/27/2024 11:27 AM [facility] Blood BLOOD SPECIMEN / Unknown Venipuncture / Unknown 05/27/2024 11:00 AM TIPPLE REPAIRER 05/27/2024 11:01 AM [facility] us Jamila Mckeon NP CHEMISTRY Final Result [facility] [address] [place] [address] * (ABNORMAL) BASIC METABOLIC PANEL (05/27/2024 11:00 AM [facility]) SODIUM 139 136 - 145 mmol/L 05/27/2024 11:27 AM [facility] POTASSIUM 4.1 3.5 - 5.1 mmol/L 05/27/2024 11:27 AM [facility] CHLORIDE 103 98 - 107 mmol/L 05/27/2024 11:27 AM [facility] CO2,TOTAL 25 22 - 29 mmol/L 05/27/2024 11:27 AM [facility] ANION GAP 11 5 - 18 05/27/2024 11:27 AM [facility] GLUCOSE 110(H) 70 - 99 mg/dL 05/27/2024 11:27 AM [facility] CALCIUM 9.0 8.8 - 10.4 mg/dL 05/27/2024 11:27 AM [facility] Comment: Reference ranges for this test were updated on 01/30/2024 to reflect our healthy population more accurately. Reference range changes are not retroactively applied to results, but previous results using the same methodology can be interpreted in the context of the new reference range. BUN 21 8 - 23 mg/dL 05/27/2024 11:27 AM [facility] CREATININE 0.90 0.50 - 0.90 mg/dL 05/27/2024 11:27 AM [facility] BUN/CREAT RATIO 23(H) 10 - 20 11:27 AM [facility] eGFR 63(L) >90 mL/min/1. 73m2 05/27/2024 11:27 AM [facility] Comment:As of 2021, eG FR is calculated by the CKD-EPI creatinine equation without race adjustment. eGFR can be influenced by muscle mass, exercise, and diet. The reported eGFR is an estimation only and is only applicable if the renal function is stable. Blood BLOOD SPECIMEN / Unknown Venipuncture / Unknown 05/27/2024 11:00 AM TIPPLE REPAIRER 05/27/2024 11:01 AM TIPPLE REPAIRER us Jamila Mckeon NP CHEMISTRY Final Result [facility] [address] [place] [address] * SCAN CORRESP-LABORATORY RESULTS (05/23/2024 12:00 AM TIPPLE REPAIRER) us Scanner OTHER Final Result * SCAN CORRESP-IMAGING (05/23/2024 12:00 AM TIPPLE REPAIRER) Anatomical Region Laterality Modality Other us Scanner OTHER Final Result * (ABNORMAL) CBC AND DIFFERENTIAL (05/20/2024 12:19 PM TIPPLE REPAIRER) WHITE BLOOD CELL COUNT 5.2 3.8 - [...] BLOOD SPECIMEN / Unknown 05/20/2024 12:19 PM TIPPLE REPAIRER 05/20/2024 12:21 PM TIPPLE REPAIRER us Riley Marquis MD HEMATOLOGY Final Result [facility] [address] [place] [address], [facility] [address] [place] [address] * SCAN-RADIOLOGY REPORT (05/14/2024 12:00 AM TIPPLE REPAIRER) Anatomical Region Laterality Modality Other us Scanner OTHER Final Result * SCAN-LABORATORY REPORT (05/14/2024 12:00 AM TIPPLE REPAIRER) us Scanner OTHER Final Result * SCAN-CT INTERPRETATION (05/14/2024 12:00 AM TIPPLE REPAIRER) Anatomical Region Laterality Modality Other us Scanner OTHER Final Result * LAB TRACKING EVENT (05/13/2024 7:30 PM TIPPLE REPAIRER) Other (Other) Client Collect / Unknown 05/13/2024 7:30 PM TIPPLE REPAIRER 05/14/2024 10:14 PM TIPPLE REPAIRER us Ebony Lee MD LAB BILL ONLY Final Result [facility] [employer] [facility] [address] [place] [address], * PERIPHERAL BLD MORPHOLOGY (05/13/2024 7:30 PM TIPPLE REPAIRER) Case Report Special Hematology Report Case: [id number] Authorizing Provider: Ebony Lee, Collected: 05/13/20241929 Ordering Location: [facility] CENTRAL LAB Received: 05/15/2024 0718 Pathologist: Ignacio Trammell MD Specimen: Peripheral Blood 05/20/2024 12:37 PM TIPPLE REPAIRER [employer] ENTRAL LABORATORY Amendment 05/20/2024 - Absolute lymphocyte count corrected. 05/20/2024 12:37 PM TIPPLE REPAIRER [facility] [employer] [facility] LABORATORY Final Diagnosis PERIPHERAL BLOOD: 1. Moderate normocytic anemia 2. Moderate thrombocytopenia 3. Leukopenia with normal differential counts 4. See comment 05/20/2024 12:37 PM TIPPLE REPAIRER [employer] ENTRAL LABORATORY Amendment electronically signed by Ignacio [...] also reviewed by Destiny Hylton MT, MS ([facility]). 05/20/2024 12:37 PM [facility] [employer] LABORATORY- ENTRAL LABORATORY Clinical Information The patient is not 83-year-old female. Per CBC scan: Anemia, leukopenia, and thrombocytopenia. Per EPIC: Additional history includes hypertension, rheumatoid arthritis, and hypertensive kidney disease. She is currently receiving prednisone. 05/20/2024 12:37 PM [facility] CBC and Differential HEMATOLOGY PARAMETERS Tested at: [facility] [facility] RESULTS EXPECTED VALUES WBC: 3.0 4.5-69m9965/cumm DECREASED RBC: 2.25 4.00-5.20 mil/cummDECREASED HGB: 7.4 12-16 gm/dl DECREASED HCT: 21.9 33-51% DECREASED MCV: 97.0 80-100 fl NORMOCYTIC MCH: 32.9 26-34 pg MCHC: 33.8 32-36 gm/dl NORMOCHROMIC RDW: 232 11.5-15.5% ELEVATED PLT: 69 [id number]/uL DECREASED Retic: 0.5 0.5-1.5% Differential Absolute (%) Expected (%) (x10*9/L) (x10*9/L) Neutrophils: 1.9932 (66) 1.7-7.0 (42-72%) Lymphocytes: 0.8758 (29) 0.9-2.9 (20-44%) DECREASED Eosinophils: 0.1 (3.3) <0.5 (0-2%) 05/20/2024 12:37 PM TIPPLE REPAIRER [employer] [facility] Microscopic Description The final diagnosis is based on microscopic examination of an appropriately stained blood smear. 05/20/2024 12:37 PM TIPPLE REPAIRER [employer] [facility] Additional Information Interpreted at [facility] - [address] [facility] [address], [place] [address] 05/20/2024 12:37 PM TIPPLE REPAIRER [facility] Blood (Peripheral Blood) 05/13/2024 7:30 PM TIPPLE REPAIRER 05/15/2024 7:18 AM TIPPLE REPAIRER us Ebony Lee MD HEMATOLOGY Edited Result - Final [facility] [address] [place] [address], [place] * (ABNORMAL) XR DXA BONE DENSITY [...] greater than 5 years. Na Valdivia PA-C [facility] 10/11/2022 Narrative 10/11/2022 2:15 PM CDT For Patients: Results are automatically released to your [employer] ([employer]) account once available, in compliance with federal regulations. This means that you may see your results before your provider has had a chance to review them. Please allow 2-3 business days for your provider to comment on the results. XR DXA Bone Mineral Density (BMD) EXAM LOCATION: [facility] [address] [facility] [address] PATIENT NAME: Vanessa Andino DATE OF : [...] two scanners are made by the same creative strategist. PROCEDURE: Dual-energy x-ray absorptiometry performed with routine [...] Most Recently Relevant to Health Maintenance Insurance [facility] UC[employer] MEDICARE ADVANTAGE MR MEDICARE PART A HB ONLY [place] BLUE HB ONLY MEDICARE PART B HB ONLY [place] BLUE MR PB ONLY Advance Directives Documents on File Type Date Recorded Patient Pattern Chart Writer Expl anation POLST 07/14/2017 8:01 AM 01/12/2017 Power of Hydraulic Press Operator 07/14/2017 7:57 AM 01/06 Healthcare Directive 07/14/2017 7:57 AM * Full Code (Latest Code Status on File) Date Activated Date Inactivated Comments 07/12/2017 7:10 AM 07/14/2017 4:57 PM * Full Code Date Activated Date Inactivated Comments 05/11/2016 10:33 AM 05/11/2016 7:12 PM * Full Code Date Activated Date Inactivated Comments 05/04/2016 7:01 AM 05/04/2016 3:07 PM Care Teams Slate Mixer Relationship Specialty Start Date End Date Constanza Cardozo MD [address] [place] [address] PCP - General Family Practice 08/25/22 [place], CHRISTIANNE [employer] Manager 07/13/17 Sharif Nunez MD [address] [facility] [address] [place] [address] Rheumatology 10/08/21 Riley Camacho MD [address] [place] [address] [place] [address] Surgery - Urology 08/25/22 [place] [address] [place] [address] Endocrinology Endocrinology 04/02/24
--- NOTE | 2024-06-11 03:51 | ED.GENADULT ---
HPI - General Adult General Chief complaint: Lower Extremity Swelling Stated complaint: L foot swelling Time Seen by Provider: 06/11/24 03:17 Source: patient and family Mode of arrival: ambulatory Limitations: no limitations History of Present Illness HPI narrative: 83-year-old female presents to the ED in the wee hours with a day and a half of increased swelling tenderness and redness to the left lower extremity. She tells me she is concerned about mainly just the increased swelling. 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 Swelling was documented at 2+ to most of the entire leg at that time. She has a history of chronic stasis wounds and is followed in wound care. She has a history of a stasis ulcers and has been on antibiotics as recently as 6 weeks ago. Prior history of MRSA but most recent cultures did not show MRSA. She gets frequent bladder infections as well as a history of neurogenic bladder. Her story is quite hard to follow as she states that she has had pain the entire time she has had the DVT and swelling in the leg and his became frustrated overnight and did not know what to do and comes to the emergency room. She has been taking Tylenol for pain cannot tell me when the last dose was. She denies fevers, new weakness. When I ask if the wound looks more red she is unsure but then tells me that she has had 2 spots now split open, I asked her when and she tells me a few days ago. It is very difficult to follow. Sounds like she recently had a case of mucositis secondary to doxycycline as well so that certainly should be avoided. Patient has not tried any other interventions to help with her pain and has not made an attempt to be evaluated in the clinic. Past medical history is really extensive. She has lot of medication intolerance is most of which do not seem like true allergies but she also has a history of rheumatoid arthritis, chronic stasis ulcers in leg wounds, neurogenic bladder weakness and a recent very large DVT of the left leg. The last few notes and culture reports are reviewed. ROS today is positive only for leg tenderness and possibly increased swelling though according to the documented records it certainly is less swelling than 10 days ago. Otherwise denies times 12 systems. Related Data Home Medications ?Medication ?Instructions ?Recorded ?Confirmed aspirin 81 mg tablet,delayed 81 mg PO DAILY 10/04/21 05/30/24 release (Adult Aspirin Regimen) multivitamin (Multiple Vitamins 1 tab PO QDAY 11/26/21 05/30/24 tablet) alendronate 70 mg tablet 70 mg PO SILVA 02/28/22 05/30/24 calcium 600 mg (as 1 cap PO DAILY 02/28/22 05/30/24 carbonate)-vitamin D3 12.5 mcg (500 unit) capsule (Calcium with Vit D3) furosemide 20 mg tablet 20 mg PO BID 02/28/22 05/30/24 losartan 50 mg tablet 50 mg PO DAILY 02/28/22 05/30/24 acetaminophen 500 mg tablet 1,000 mg PO Q6H PRN 07/13/22 05/30/24 (Acetaminophen Extra Strength) methenamine hippurate 1 gram tablet 1 g PO BID 11/26/22 05/30/24 benzocaine 20 % mucosal gel 1 applic mucous membrane QID PRN 05/14/24 05/30/24 clotrimazole 1 % topical cream 1 applic topical BID 05/14/24 05/30/24 prednisone 1 mg tablet 2 mg PO DAILY 05/14/24 05/30/24 Previous Rx's ?Medication ?Instructions ?Recorded Magic Mouthwash 5 ml PO Q4H PRN #120 mL 05/04/24 (Lidocaine/Benadryl/Maalox) 120 mL suspension apixaban 5 mg tablet (Eliquis) 5 mg PO BID #60 tabs 05/30/24 cephalexin 500 mg capsule 500 mg PO Q8H #20 caps 06/11/24 tramadol 50 mg tablet 50 mg PO Q8H PRN pain #14 tabs 06/11/24 Allergies Allergy/AdvReac Type Severity Reaction Status Date / Time clonidine Allergy Mild Hallucinati Verified 05/30/24 11:09 ng leflunomide Allergy Mild Hallucinati Verified 05/30/24 11:09 ng lisinopril Allergy Mild increased Verified 05/30/24 11:09 creatinine methotrexate Allergy Mild did not Verified 05/30/24 11:09 feel well hydrocodone Allergy Unknown Vomiting Verified 05/30/24 11:09 oxycodone Allergy Unknown Verified 05/30/24 11:09 Opioids - Morphine Analogues Allergy Verified 05/30/24 11:09 Sulfa (Sulfonamide Allergy Verified 05/30/24 11:09 Antibiotics) surgical glue Allergy Uncoded 04/30/24 18:36 [facility] Medical History Breast mass, right ?N63.10 - Unspecified lump in the right breast, unspecified quadrant (ICD-10) MRSA infection ?A49.02 - Methicillin resistant Staphylococcus aureus infection, unspecified site (ICD-10) Neurocardiogenic pre-syncope ?R55 - Syncope and collapse (ICD-10) Physical deconditioning ?R53.81 - Other malaise (ICD-10) Closed fracture of distal radius and ulna ?S52.509A - Unspecified fracture of the lower end of unspecified radius, initial encounter for closed fracture (ICD-10) ?S52.609A - Unspecified fracture of lower end of unspecified ulna, initial encounter for closed fracture (ICD-10) Post-traumatic osteoarthritis, left wrist ?M19.132 - Post-traumatic osteoarthritis, left wrist (ICD-10) Closed fracture of left distal radius ?S52.502A - Unspecified fracture of the lower end of left radius, initial encounter for closed fracture (ICD-10) Closed fracture of left proximal humerus ?S42.202A - Unspecified fracture of upper end of left humerus, initial encounter for closed fracture (ICD-10) Lower extremity edema ?R60.0 - Localized edema (ICD-10) Pneumonia ?J18.9 - Pneumonia, unspecified organism (ICD-10) Sepsis ?A41.9 - Sepsis, unspecified organism (ICD-10) Gram-negative bacteremia ?R78.81 - Bacteremia (ICD-10) Lung nodules ?R91.8 - Other nonspecific abnormal finding of lung field (ICD-10) Sensorineural hearing loss, bilateral ?H90.3 - Sensorineural hearing loss, bilateral (ICD-10) Prediabetes ?R73.03 - Prediabetes (ICD-10) Presence of neurostimulator ?Z96.82 - Presence of neurostimulator (ICD-10) Sacral nerve stimulator present ?Z96.82 - Presence of neurostimulator (ICD-10) Recurrent urinary tract infection ?N39.0 - Urinary tract infection, site not specified (ICD-10) Hyperlipidemia ?E78.5 - Hyperlipidemia, unspecified (ICD-10) History of DVT (deep vein thrombosis) ?Z86.718 - Personal history of other venous thrombosis and embolism (ICD-10) Stage 3 chronic kidney disease ?N18.30 - Chronic kidney disease, stage 3 unspecified (ICD-10) Rheumatoid arthritis ?M06.9 - Rheumatoid arthritis, unspecified (ICD-10) High blood pressure ?I10 - Essential (primary) hypertension (ICD-10) Osteoarthritis ?M19.90 - Unspecified osteoarthritis, unspecified site (ICD-10) Surgical History S/P ORIF (open reduction internal fixation) fracture (12/06/21) ?Z98.890 - Other specified postprocedural states (ICD-10) ?Z87.81 - Personal history of (healed) traumatic fracture (ICD-10) S/P ORIF (open reduction internal fixation) fracture ?Z98.890 - Other specified postprocedural states (ICD-10) ?Z87.81 - Personal history of (healed) traumatic fracture (ICD-10) S/P total knee arthroplasty ?Z96.659 - Presence of unspecified artificial knee joint (ICD-10) H/O hysterectomy with oophorectomy History of cholecystectomy ?Z90.49 - Acquired absence of other specified parts of digestive tract (ICD-10) Family History Mother Stroke Rheumatoid arthritis Brother Diabetes Coronary artery disease Father Pancreatic cancer Social History Narrative: patient lives independently with her significant other, Cirilo Chambers. She has a niece, Peg. Those 2 would be healthcare power of prn physical therapist. Code status is full. What is your current living situation?: I presently have a place to live Problems where you live: no known problems Problems where you live details: NA In the past 12 months, utilities in danger of being shut off: no In past 12 months, lack of transportation kept you from medical appts, meetings, work, or getting things needed for daily living: no In the past 12 mos, have been you worried that your food would run out before you had money to buy more?: never true In the past 12 mos, the food you bought just didn't last and you didn't have money to buy more?: never true Highest level of school completed/degree received: Associate degree: occupational, technical, vocational program Smoking Status: Never smoker Do you use any of these nicotine containing products: None Second hand tobacco smoke exposure: No How often do you have a drink containing alcohol: never How often do you have six or more drinks on one occasion: Never AUDIT-C Alcohol total score: 0 Non-prescribed substance use: denies use Caffeine: Yes How often does anyone, including family, friends and others, physically hurt you: never How often does anyone, including family, friends and others, insult or talk down to you: never How often does anyone, including family, friends and others, threaten you with harm: never How often does anyone, including family, friends and others, scream or curse at you: never Gender Identity: female Are you using contraception or practicing any form of control: No service: No Exam Const: Vital Signs, click to edit/add: Vital Signs - 24 hr 06/11/24 03:07 Temperature 98.1 F Pulse Rate [Pulse Oximeter] 91 Respiratory Rate 18 Blood Pressure [Ri ght Upper Arm] 163/62 H Pulse Oximetry 97 Oxygen Delivery Me thod Room Air Documenting provider has reviewed patient's vital signs: yes Common normals: alert Other: Suboptimal historian, appears frail, similar to previous visits. Appears well nourished and well hydrated. Mucositis in the inner lip appears to be healing in comparison to Dr. Hi's notes. HENMT: Common normals: normocephalic and moist oral mucous membranes Head and scalp: normocephalic Other: Healing mucositis, no active bleeding. Eye: Common normals: conjunctivae normal Conjunctiva: conjunctiva(e) normal Neck & C-Spine: Common normals: no lymphadenopathy General: normal visual inspection Resp: Common normals: normal respiratory effort and no use of accessory muscles Effort & inspection: able to speak in complete sentences Cardio: Common normals: regular rate, regular rhythm, S1 normal heart sound and S2 normal heart sound Rate: regular rate Rhythm: regular rhythm Heart sounds: S1 normal and S2 normal Extremity: Other: Left leg with 1+ edema to the top of the foot and mid tibia area only, markedly better than in notes from 05/30. There are 2 2 cm long vertical areas of skin splitting that do not look fresh, they have some granulating material and are at least 3 to 4-day-old. There is mild surrounding redness in this area but it does not encompass the entire foot and tibial area. No unusual drainage or discharge. 2+ DP pulses and good capillary refill in the toes of this side. The opposite side has a trace to 1+ edema and signs of old chronic stasis ulcers that are not currently open or weeping. Neuro: Sensorium/orientation: alert Psych: Insight: fair Judgement: fair Course Course ED Course: 83-year-old female with tenderness in leg, reported increase in swelling and some new stasis ulcers with some slight surrounding redness. No fever, hypotension, tachycardia or signs of sepsis. Recent labs reviewed. Recent notes reviewed indicating that the swelling has actually gone down but the stasis ulcers are new. Prior cultures are reviewed. She does have prior MRSA but most recent cultures indicate staff. She is allergic to Bactrim, has had recent mucositis from doxycycline sore antibiotic options are quite limited. Since her most recent culture is negative for RSA, I would like to try Keflex, has tolerated this well in the past. I think there is an early cellulitis here. Her main concern is the pain which does make sense with these new stasis ulcers and the recent large DVT. I have got some notes that tell me she has tolerated tramadol in the past though she reports intolerance to hydrocodone and oxycodone. Tylenol is not cutting her pain if she is not a good candidate for NSAIDs due to her Eliquis use, recent creatinine clearance of around 30. Patient given tramadol hand 1st dose of cub flex in ED. Prescription for both the sent to her pharmacy. Instructed that she has to make a follow-up appointment in 48-72 hours for re-evaluation because of the Keflex is not working, she does most likely have a resistant infection and may require hospitalization for treatment with vancomycin and or linezolid. Written instructions provided, all questions answered. Vital Signs Vital signs: Initial Vital Signs Temperature 98.1 F 06/11/24 03:07 Temperature Source Temporal Artery Scan 06/11/24 03:07 Pulse Rate 91 06/11/24 03:07 Respiratory Rate 18 06/11/24 03:07 Blood Pressure 163/62 H 06/11/24 03:07 Blood Pressure Mean 95 03/18/25 03:07 Blood Pressure Position Sitting 06/11/24 03:07 Pulse Oximetry 97 06/11/24 03:07 Oxygen Delivery Method Room Air 06/11/24 03:07 Vital Signs Temperature 98.1 F 06/11/24 03:07 Pulse Rate 91 06/11/24 03:07 Respiratory Rate 18 06/11/24 03:07 Blood Pressure 163/62 H 06/11/24 03:07 Pulse Oximetry 97 06/11/24 03:07 Oxygen Delivery Method Room Air 06/11/24 03:07 Temperature 98.1 F 06/11/24 03:07 Pulse Rate 91 06/11/24 03:07 Respiratory Rate 18 06/11/24 03:07 Blood Pressure 163/62 H 06/11/24 03:07 Pulse Oximetry 97 06/11/24 03:07 Oxygen Delivery Method Room Air 06/11/24 03:07 Medications Administered Medications: Generic Name Dose Route Start Last Admin Trade Name Freq PRN Reason Stop Dose Admin Cephalexin HCl 500 mg 06/11/24 03:33 06/11/24 03:36 Cephalexin 500 Mg Capsule PO 06/11/24 03:34 500 mg ONCE ONE Administration Tramadol HCl 50 mg 06/11/24 03:33 06/11/24 03:36 Tramadol Hcl 50 Mg Tablet PO 06/11/24 03:34 50 mg ONCE ONE Administration Discharge Plan Discharge Clinical Impression: Cellulitis Patient Disposition: Home w/ Parent or Adult Condition: Stable Instructions: Cellulitis (ED) Additional Instructions: I think that the increased pain that you are having in the leg is related to an early infection. Unfortunately stasis ulcers are very common after you have had a blood clot and can split the skin open like yours. Unfortunately, the bacteria that live on the skin can often invade and cause an infection in those soft tissues. I think this is what has happened. Due to your allergies and recent bad reaction to doxycycline, antibiotic selection is tricky. You have had resistant infections in the past as well. Your most recent testing shows that you did not have MRSA, therefore I will choose Keflex. Take 1 pill 3 times daily for the next week. Continue use of Tylenol for the pain. I have also given you a small supply of tramadol, a pain medication that it looks like you have tolerated well in the past. You may take this up to 3 times a day if the pain is severe and not relieved by the Tylenol. You do need to be trying the Tylenol 1st. Continue taking her blood thinners. Please call the clinic in the morning and make a follow-up appointment for 2 days from now. If the redness has not improved, you may require hospitalization. Discharge Diet: Regular Prescriptions: New cephalexin 500 mg capsule 500 mg PO Q8H Qty: 20 0RF tramadol 50 mg tablet 50 mg PO Q8H PRN (Reason: pain) Qty: 14 0RF No Action methenamine hippurate 1 gram tablet 1 g PO BID multivitamin [Multiple Vitamins] Tablet 1 tab PO QDAY aspirin [Adult Aspirin Regimen] 81 mg tablet,delayed release (DR/EC) 81 mg PO DAILY Magic Mouthwash (Lidocaine/Benadryl/Maalox) 120 mL suspension 5 ml PO Q4H PRNQty: 120 0RF Rx Instructions: Lidocaine Viscous 2 % mucosal solution 40 mL; Maalox 200 mg-200 mg-20 mg/5 mL oral suspension 40 mL; Benadryl 12.5 mg/5 mL oral elixir 40 mL; Per 120 mL SWISH AND SPIT. MAY COMPOUND IF FIRST PRODUCT IS NOT AVAILABLE. Eliquis 5 mg tablet 5 mg PO BID Qty: 60 0RF Rx Instructions: 10 mg twice daily for 7 days. Then 5 mg twice a day until follow up. calcium carbonate-vitamin D3 [Calcium 600 with Vitamin D3] 600 mg-12.5 mcg (500 unit) capsule 1 cap PO DAILY losartan 50 mg tablet 50 mg PO DAILY furosemide 20 mg tablet 20 mg PO BID alendronate 70 mg tablet 70 mg PO SILVA Patient Comments: TAKE 1 TABLET BY MOUTH EVERY 7 DAYS ON AN EMPTY STOMACH. REMAIN UPRIGHT FOR 30 MINUTES. TAKE WITH 8 OUNCES OF WATER acetaminophen [Acetaminophen Extra Strength] 500 mg tablet 1,000 mg PO Q6H PRN prednisone 1 mg tablet 2 mg PO DAILY benzocaine 20 % gel 1 applic MUCOUS MEMBRANE QID PRN Rx Instructions: Apply 0.5 g topically to affected area(s) 4 times daily if needed for Tooth Pain (for lip pain). Apply a thin layer to affected areas inside mouth up to 4 times daily. clotrimazole 1 % cream 1 applic TOPICAL BID Rx Instructions: Apply topically to affected area(s) two times daily. Follow Up/Referrals: Constanza Cardozo MD [Primary Care Provider] - Stand Alone Forms: [employer] Info Instructions
[2024-06-11 04:03] VITALS: PULSE 83; RESP 18; O2SAT 98
== END 2024-06-11 04:04 | disposition home or self-care (01) ==
LOC: ED 03:43
PROVIDERS: Emergency Provider Family Medicine; PCP Family Medicine
DX: L03.116 Cellulitis of left lower limb (principal)
CPT/HCPCS: 99283; A9270

== ENCOUNTER 2024-06-19 14:24 | Outpatient (CLI) | payer MEDICARE, BC, SELFPAY | END 2024-06-19 14:25 | disposition home or self-care (01) | LOC: WOUND 14:25 | PROVIDERS: PCP Family Medicine; Visit Provider Family Medicine | DX: I87.2 Venous insufficiency (chronic) (peripheral) (principal); L94.2 Calcinosis cutis; L97.822 Non-pressure chronic ulcer of other part of left lower leg with fat layer exposed; M05.9 Rheumatoid arthritis with rheumatoid factor, unspecified | CPT/HCPCS: 11042 ==

== ENCOUNTER 2024-06-21 16:06 | Emergency (ER) | payer MEDICARE, BC, SELFPAY ==
[2024-06-21] VITALS (9 sets, daily range): BP systolic 112–146; BP diastolic 38–68; PULSE 79–96; RESP 14–18; TEMP 36.8–37.3; O2SAT 98–100; BMI 25.1
--- OUTSIDE RECORDS SUMMARY | 2024-06-21 16:08 | XMS_ITS | Continuity of Care Document ---
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 Name Role Phone Sharif Nunez MD Unavailable [...] + D3 125 unit tablet - Active Procedures Procedure Date Office/Outpatient Visit, Est [...] Protein Dna Antibody, Single Strand Dna Antibody, Quechan Nuclear Antigen Antibodies CCP Antibody Lyme Disease Antibody Rheumatoid Factor, IGM Rheumatoid Factor, IGG, IGA Vitamin D 25 Hydroxy Complete Cbc WAuto Diff Wbc Advance Directives Directive Yes / No Effective Date File Name No Information Encounters Encounter Description Practice Location Reason(s) For Visit Diagnoses Date Provider Providers Copied on Encounter [facility] , [address], [place], [address], [place] tel:[phone] [facility] , No Information 5 Mayra Olguin. [facility] [address], [place], [place], [address], [place]. tel:[phone] Office/Outpa tient Visit, Est [facility] , [address], [place], [address], [place] tel:[phone] [facility] , Follow Up of Seropositive rheumatoid arthritis (chief complaint)Os teoporosis (chief complaint)Os teoarthritis (chief complaint) Rheumatoid arthritis with rheumatoid factor of multiple sites without organ or systems involvementA ge-related osteoporosis without current pathological fractureLong term (current) use of systemic steroidsOthe r halfway (current) drug therapyCellu litis of left lower limb 4 Mayra Olguin. [facility] [address], [place], [place], [address], [place]. tel:[phone] Referring Provider: Sharif Phipps, [facility] [address], [place], [place], [address]. tel:[phone] Office/Outpa tient Visit, Est [facility] , [address], [place], [place], [address], [place] tel:[phone] [facility] , Follow Up of Seropositive rheumatoid arthritis (chief complaint)Os teoporosis (chief complaint)Os teoarthritis (chief complaint) Rheumatoid arthritis with rheumatoid factor of multiple sites without organ or systems involvementA ge-related osteoporosis without current pathological fractureLong term (current) use of systemic steroidsOthe r annealing torch operator (current) drug therapyCellu litis of left lower limb Sep-0 4 Mayra Olguin. [facility] [address], [place], [address], [place]. tel:[phone] Referring Provider: Sharif Phipps, [facility] [address], [place], [address]. tel:[phone] Office/Outpa tient Visit, Est [facility] , [address], [place], [address], [place] tel:[phone] [facility] , Follow Up of Seropositive rheumatoid arthritis (chief complaint)Os teoporosis (chief complaint)Os teoarthritis (chief complaint) Rheumatoid arthritis with rheumatoid factor of multiple sites without organ or systems involvementA ge-related osteoporosis without current pathological fractureLong term (current) use of systemic steroidsOthe r annealing torch operator (current) drug therapyCellu litis of left lower limb Ozzy-0 4 Mayra Olguin. [facility] [address], [place], [address], [place]. tel:[phone] Referring Provider: Sharif Phipps, [facility] [address], [place], [address]. tel:[phone] Office/Outpa tient Visit, Est [facility] , [address], [place], [address], [place] tel:[phone] [facility] , Follow Up of Seropositive rheumatoid arthritis (chief complaint)Os teoporosis (chief complaint)Os teoarthritis (chief complaint) Rheumatoid arthritis with rheumatoid factor of multiple sites without organ or systems involvementA ge-related osteoporosis without current pathological fractureLong term (current) use of systemic steroidsOthe r annealing torch operator (current) drug therapyCellu litis of left lower limb 4 Mayra Olguin. [facility] [address], [place], [address], [place]. tel:[phone] Referring Provider: Sharif Phipps, [facility] [address], [place], [address]. tel:[phone] Office/Outpa tient Visit, Est [facility] , [address], [place], [address], [place] tel:[phone] [facility] , Follow Up of Seropositive rheumatoid arthritis (chief complaint)Os teoporosis (chief complaint)Os teoarthritis (chief complaint) Rheumatoid arthritis with rheumatoid factor of multiple sites without organ or systems involvementA ge-related osteoporosis without current pathological fractureLong term (current) use of systemic steroidsOthe r annealing torch operator (current) drug therapyCellu litis of left lower limb 3 Mayra Olguin. [facility] [address], [place], [address], [place]. tel:[phone] Referring Provider: Sharif Phipps, [facility] [address], [place], [address]. tel:[phone] Office/Outpa tient Visit, Est [facility] , [address], [place], [address], [place] tel:[phone] [facility] , Follow Up of Seropositive rheumatoid arthritis (chief complaint)Os teoporosis (chief complaint)Os teoarthritis (chief complaint) Rheumatoid arthritis with rheumatoid factor of multiple sites without organ or systems involvementO ther low back painAge-rela sheryl osteoporosis without current pathological fractureLong term (current) use of systemic steroidsOthe r annealing torch operator (current) drug therapy 3 Mayra Olguin. [facility] [address], [place], [address], [place]. tel:[phone] Referring Provider: Sharif Phipps, [facility] [address], [place], [address]. tel:[phone] Office/Outpa tient Visit, Est [facility] , [address], [place], [address], [place] tel:[phone] [facility] , Follow Up of Seropositive rheumatoid arthritis (chief complaint)Os teoporosis (chief complaint)Os teoarthritis (chief complaint) Rheumatoid arthritis with rheumatoid factor of multiple sites without organ or systems involvementO ther low back painAge-rela sheryl osteoporosis without current pathological fractureLong term (current) use of systemic steroidsOthe r annealing torch operator (current) drug therapy 3 Mayra Olguin. [facility] [address], [place], [address], [place]. tel:[phone] Referring Provider: Sharif Phipps, [facility] [address], [place], [address]. tel:[phone] Office/Outpa tient Visit, Est [facility] , [address], [place], [address], [place] tel:[phone] [facility] , Follow Up of Seropositive rheumatoid arthritis (chief complaint)Os teoporosis (chief complaint)Os teoarthritis (chief complaint) Rheumatoid arthritis with rheumatoid factor of multiple sites without organ or systems involvementO ther low back painAge-rela sheryl osteoporosis without current pathological fractureLong term (current) use of systemic steroidsOthe r annealing torch operator (current) drug therapy 3 Mayra Olguin. [facility] [address], [place], [address], [place]. tel:[phone] Referring Provider: Sharif Phipps, [facility] [address], [place], [address]. tel:[phone] Office/Outpa tient Visit, Est [facility] , [address], [place], [address], [place] [phone] [facility] , Follow Up of Seropositive rheumatoid arthritis (chief complaint)Os teoporosis (chief complaint)Os teoarthritis (chief complaint) Rheumatoid arthritis with rheumatoid factor of multiple sites without organ or systems involvementO ther low back painAge-rela sheryl osteoporosis without current pathological fractureLong term (current) use of systemic steroidsOthe r halfway (current) drug therapy 2 Mayra Mcdonald [facility] [address], [place], [address], [place]. tel:[phone] Referring Provider: Sharif Phipps, [facility] [address], [place], [address]. tel:[phone] Office/Outpa tient Visit, Est [facility] , [address], [place], [address], [place] tel:[phone] [facility] , Follow Up of Seropositive rheumatoid arthritis (chief complaint)Os teoporosis (chief complaint)Os teoarthritis (chief complaint) Rheumatoid arthritis with rheumatoid factor of multiple sites without organ or systems involvementO ther low back painAge-rela sheryl osteoporosis without current pathological fractureLong term (current) use of systemic steroidsOthe r halfway (current) drug therapy 2 Mayra Mcdonald [facility] [address], [place], [address], [place]. tel:[phone] Referring Provider: Sharif Phipps, [facility] [address], [place], [address]. tel:[phone] Office/Outpa tient Visit, Est [facility] , [address], [place], [address], [place] tel:[phone] [facility] , Follow Up of Seropositive rheumatoid arthritis (chief complaint)Os teoporosis (chief complaint)Os teoarthritis (chief complaint) Rheumatoid arthritis with rheumatoid factor of multiple sites without organ or systems involvementA ge-related osteoporosis without current pathological fractureLong term (current) use of systemic steroidsOthe r halfway (current) drug therapyOther low back pain 2 Mayra Olguin. [facility] [address], [place], [address], [place]. tel:[phone] Referring Provider: Sharif Phipps, [facility] [address], [place], [address]. tel:[phone] Office/Outpa tient Visit, Est [facility] , [address], [place], [address], [place] tel:[phone] [facility] , Follow Up of Seropositive rheumatoid arthritis (chief complaint)Os teoporosis (chief complaint)Os teoarthritis (chief complaint) Rheumatoid arthritis with rheumatoid factor of multiple sites without organ or systems involvementH allucination Eric-related osteoporosis without current pathological fractureOthe r annealing torch operator (current) drug therapyLong term (current) use of systemic steroids 1 Mayra Olguin. [facility] [address], [place], [address], [place]. tel:[phone] Referring Provider: Sharif Phipps [facility] [address], [place], [address]. tel:[phone] Office/Outpa tient Visit, Est [facility] , [address], [place], [address], [place] tel:[phone] [facility] , Follow Up of Seropositive rheumatoid arthritis (chief complaint)Os teoporosis (chief complaint)Os teoarthritis (chief complaint) Rheumatoid arthritis with rheumatoid factor of multiple sites without organ or systems involvementH allucination Eric-related osteoporosis without current pathological fractureOthe r halfway (current) drug therapyLong term (current) use of systemic steroids Sep-0 1 Mayra Olguin. [facility] [address], [place], [address], [place]. tel:[phone] Referring Provider: Sharif Phipps, [facility] [address], [place], [address]. tel:[phone] Office/Outpa tient Visit, Est [facility] , [address], [place], [address], [place] tel:[phone] [facility] , Follow Up of Seropositive rheumatoid arthritis (chief complaint)Os teoporosis (chief complaint) Rheumatoid arthritis with rheumatoid factor of multiple sites without organ or systems involvementO ther halfway (current) drug therapyLong term (current) use of systemic steroidsAge- related osteoporosis without current pathological fracture Jun- 1 Mayra Olguin. [facility] [address], [place], [address], [place]. tel:[phone] Referring Provider: Sharif Phipps, [facility] [address], [place], [address]. tel:[phone] Office/Outpa tient Visit, Est [facility] , [address], [place], [address], [place] tel:[phone] [facility] , Follow Up of Seropositive rheumatoid arthritis (chief complaint) Rheumatoid arthritis with rheumatoid factor of multiple sites without organ or systems involvementA bnormal weight lossAge-rela sheryl osteoporosis without current pathological fractureOthe r halfway (current) drug therapyLong term (current) use of systemic steroids 1 Mayra Mcdonald [facility] [address], [place], [address], [place]. tel:[phone] Referring Provider: Sharif Phipps, [facility] [address], [place], [address]. tel:[phone] Office/Outpa tient Visit, Est [facility] , [address], [place], [address], [place] tel:[phone] [facility] , Follow Up of Seropositive rheumatoid arthritis (chief complaint) Rheumatoid arthritis with rheumatoid factor of multiple sites without organ or systems involvementO ther annealing torch operator (current) drug therapyLong term (current) use of systemic steroids 0 Mayra Mcdonald [facility] [address], [place], [address], [place]. tel:[phone] Referring Provider: Sharif Phipps, [facility] [address], [place], [address]. tel:[phone] Office/Outpa tient Visit, Est [facility] , [address], [place], [address], [place] tel:[phone] [facility] , Follow Up of seropositive rheumatoid arthritis (chief complaint) Rheu arthritis w rheu factor mult site w/o org/sys involvAge-re lated osteoporosis w/o current pathological fractureOthe r halfway (current) drug therapyLong term (current) use of systemic steroids 0 Nunez Sharif. [facility] [address], [place], [address], [place]. tel:[phone] Referring Provider: Sharif Phipps, [facility] [address], [place], [address]. tel:[phone] Office/Outpa tient Visit, Est [facility] , [address], [place], [address], [place] tel:[phone] [facility] , Follow Up of seropositive rheumatoid arthritis (chief complaint) Rheu arthritis w rheu factor mult site w/o org/sys involvPrimar y generalized (osteo)arthr itisAge-rela sheryl osteoporosis w/o current pathological fractureOthe r halfway (current) drug therapyLong term (current) use of systemic steroids 0 Mayra Mcdonald [facility] [address], [place], [address], [place]. tel:[phone] Referring Provider: Sharif Phipps, [facility] [address], [place], [address]. tel:[phone] Phone E/M By Phys 11-20 Min [facility] , [address], [place], [address], [place] tel:[phone] Telehealth Follow Up of seropositive rheumatoid arthritis (chief complaint)os teoarthritis (chief complaint) Rheu arthritis w rheu factor mult site w/o org/sys involvPrimar y generalized (osteo)arthr itisOther annealing torch operator (current) drug therapy 0 Mayra Mcdonald [facility] [address], [place], [address], [place]. tel:[phone] Referring Provider: Sharif Phipps, [facility] [address], [place], [address]. tel:[phone] Office/Outpa tient Visit, Est [facility] , [address], [place], [address], [place] tel:[phone] [facility] , Follow Up of seropositive rheumatoid arthritis (chief complaint) Rheu arthritis w rheu factor mult site w/o org/sys involvCarpal tunnel syndrome, right upper limbAbnormal weight lossOther halfway (current) drug therapyLong term (current) use of systemic steroids 7- 0 Mayra Olguin. [facility] [address], [place], [address], [place]. tel:[phone] Referring Provider: Sharif Phipps, [facility] [address], [place], [address]. tel:[phone] Office/Outpa tient Visit, Est [facility] , [address], [place], [address], [place] tel:[phone] [facility] , Follow Up of seropositive rheumatoid arthritis (chief complaint) Rheu arthritis w rheu factor mult site w/o org/sys involvCarpal tunnel syndrome of right armPain in right shoulderOthe r halfway (current) drug therapyLong term (current) use of systemic steroids 1-201 9 Mayra Olguin. [facility] [address], [place], [address], [place]. tel:[phone] Referring Provider: Sharif Phipps, [facility] [address], [place], [address]. tel:[phone] Office/Outpa tient Visit, Est [facility] , [address], [place], [address], [place] tel:[phone] [facility] , Follow Up of seropositive rheumatoid arthritis (chief complaint) Rheu arthritis w rheu factor mult site w/o org/sys involvOther annealing torch operator (current) drug therapyLong term (current) use of systemic steroids Mayra Olguin. [facility] [address], [place], [address], [place]. tel:[phone] Referring Provider: Sharif Phipps, [facility] [address], [place], [address]. tel:[phone] Office/Outpa tient Visit, Est [facility] , [address], [place], [address], [place] tel:[phone] [facility] , Follow Up of seropositive rheumatoid arthritis (chief complaint) Rheu arthritis w rheu factor mult site w/o org/sys involvOther annealing torch operator (current) drug therapyLong term (current) use of systemic steroids Mayra Olguin. [facility] [address], [place], [address], [place]. tel:[phone] Referring Provider: Sharif Phipps, [facility] [address], [place], [address]. tel:[phone] Office/Outpa tient Visit, Est [facility] , [address], [place], [address], [place] tel:[phone] [facility] , Follow Up of seropositive rheumatoid arthritis (chief complaint) Rheu arthritis w rheu factor mult site w/o org/sys involvDry eye syndrome of bilateral lacrimal glandsXerost omiaNasal congestionPr uritusOsteop orosisOther annealing torch operator (current) drug therapyLong term (current) use of systemic steroids 9 Mayra Olguin. [facility] [address], [place], [address], [place]. tel:[phone] Referring Provider: Sharif Phipps, [facility] [address], [place], [address]. tel:[phone] Office/Outpa tient Visit, Est [facility] , [address], [place], [address], [place] tel:[phone] [facility] , Follow Up of seropositive rheumatoid arthritis (chief complaint) Rheu arthritis w rheu factor mult site w/o org/sys involvConjun ctivitisAge- related osteoporosis w/o current pathological fractureOthe r halfway (current) drug therapyLong term (current) use of systemic steroids Mayra Olguin. [facility] [address], [place], [address], [place]. tel:[phone] Referring Provider: Sharif Phipps, [facility] [address], [place], [address]. tel:[phone] Office/Outpa tient Visit, Est [facility] , [address], [place], [address], [place] tel:[phone] [facility] , Follow Up of seropositive rheumatoid arthritis (chief complaint) Seropositive RA of multiple sites w/o organ involvementP ain in left kneeAge-rela sheryl osteoporosis w/o current pathological fractureOthe r annealing torch operator (current) drug therapy 8 Mayra Olguin. [facility] [address], [place], [address], [place]. tel:[phone] Referring Provider: Sharif Phipps, [facility] [address], [place], [address]. tel:[phone] Office/Outpa tient Visit, New [facility] , [address], [place], [address], [place] tel:[phone] [facility] , Inflammatory Polyarthropa thy (chief complaint) Inflammatory polyarthropa thyAge-relat ed osteoporosis w/o current pathological fracturePrim gutierrez generalized osteoarthrit isType 2 diabetes mellitus without complication sLong term use of systemic steroids Mayra Olguin. [facility] [address], [place], [address], [place]. tel:[phone] Referring Provider: Sharif Phipps, [facility] [address], [place], [address]. tel:[phone] [facility] , [address], [place], [address], [place] tel:[phone] [facility] , No Information Mayra Olguin. [facility] [address], [place], [address], [place]. tel:[phone] Family History Family Member Type Diagnosis Age At Onset Son Problem (finding) stroke Mother Problem (finding) Arthritis Immunizations Vaccine Date Status Comments COVID-19 Moderna administered Source: Oth er Provider COVID-19 Moderna administered Source: Oth er Provider COVID-19 Moderna administered Source: Oth er Provider Payers Payer name Insurance type Covered libertarian ID Authoriza tion(s) [employer] Medicare Advantage/[employer] BL [id number] Social History Type Description Quantity Date Captured Comments Alcohol Use Details Unknown Caffeine Use Details Unknown Tobacco Use Status No Information Smoking Status No Information Sex Female Chief Complaint And Reason For Visit No Information Reason For Referral Reason For Referral No Information History Of Present Illness Encounter Date Complaint [...] Polyarthropathy Functional Status Date Functional Assessmen t No Information Instructions Date Instruction Additional Infor ty He initially had a c ellulitis of the left lower leg that has been treated but she has a residual ulcer that required a skin graft. Apparently she is making progress with this since the skin graft but still requires regular follow-up at the wound clinic. Related to Cellulitis of left lower limb See discussion above regarding the prednisone. 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 For this and multiple other reasons I still would like to taper her off of the prednisone if possible although that has been difficult. Related to Age-related osteoporosis without current pathological fracture She will have routin e laboratories today for monitoring medications and disease. I am not receiving notes from her director supply chain but she reports that she is having regular follow-up exams to monitor the Plaquenil.. Related to Other halfway (current) drug therapy Although she feels w ell from an [...] involvement This is managed at her primary [facility]. Related to Age-related osteoporosis without current pathological fracture She will have routin e laboratories today for monitoring medications and disease. I believe she had a Plaquenil eye exam in September although I do not have a report of that. 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 Related to intermediate (current) use of systemic steroids This is an ongoing i ssue but the patient reports improvement since having a skin graft there. The current dose of prednisone likely has very little role in her slow healing process. I feel the same about her current dose of methotrexate. Related to Cellulitis of left lower limb This is managed at her primary [facility]. Related to Age-related osteoporosis without current pathological fracture Although she had a s hort-lived flare involving fingers and wrists, she is doing better again now on her normal dose of prednisone. I did not recommend any change in that or the methotrexate or hydroxychloroquine. 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 She feels like it is healing again. This is followed at the wound care clinic regularly. Related to Cellulitis of left lower limb At this point, I do not feel like it is urgent to taper this very low-dose of prednisone despite her history of osteoporosis. She simply does not do well with lower dose. Related to intermediate (current) use of systemic steroids She will have routin e laboratories today for monitoring medications and disease. She has a Plaquenil eye exam scheduled next month. Related to Other halfway (current) drug therapy Her rheumatoid arthr itis [...] do well with lower dose. 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 Related to Other halfway (current) drug therapy She still has an [...] monitoring medications and disease. Related to Other halfway (current) drug therapy Based on her follow- [...] with any lower dose. Related to intermediate (current) use of systemic steroids She had a recent ivory lulitis involving the left lower leg. 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 I recommended [...] monitoring medications and disease. Related to Other halfway (current) drug therapy This is still somewh at limiting for her but overall stable. Related to Other low back pain See discussion above regarding very slow taper of her prednisone dose as tolerated. 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 Related to Other halfway (current) drug therapy See discussion above regarding very slow taper of her prednisone dose as tolerated. 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 Related to intermediate (current) use of systemic steroids Her rheumatoid [...] monitoring medications and disease. Related to Other halfway (current) drug therapy This is not a [...] monitoring medications and disease. 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 Related to intermediate (current) use of systemic steroids This is not a major issue for her currently. Related to Other low back pain She is still doing v kimberlee well [...] taper of her prednisone dose. 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 At that time, her Fosamax dose was increased to 70 mg weekly. Related to Age-related osteoporosis without current pathological fracture She will have routin e laboratories today for monitoring medications and disease. 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 I encouraged her to continue the exercises that she has learned in physical therapy. Related to Other low back pain She is doing well wi th her rheumatoid arthritis on her current regimen. We agreed that she would decrease her prednisone dose further to 1 mg daily and stay on that dose until I see her next in 3 months. Related to Rheumatoid arthritis with rheumatoid factor of multiple sites without organ or systems involvement See discussion above . Treatment of this [...] monitoring medications and disease. 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 She had a follow-up bone density test in September through her primary clinic. She has increased her Fosamax dose to 70 mg weekly. Related to Age-related osteoporosis without current pathological fracture It is very unlikely that the hallucinations are related to either methotrexate or Plaquenil. I also think it would be very unusual for her to have hallucinations on this lower dose of prednisone. I recommended follow-up with her primary physician regarding this issue. Related to Hallucinations See discussion above regarding the prednisone. Related to intermediate (current) use of systemic steroids She will have routin e laboratories today for monitoring medications and disease. Related to Other halfway (current) drug therapy She has done well [...] above regarding the prednisone. Related to intermediate (current) use of systemic steroids She will have routin e laboratories today for monitoring medications and disease. Her last Plaquenil eye exam was on approximately 06/15/2020. I did encourage her to proceed with the COVID-19 vaccine booster (Moderna) when she can. She will need to hold methotrexate for 1 week after the booster vaccine. Related to Other halfway (current) drug therapy See discussion above . [...] monitoring medications and disease. 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 Related to intermediate (current) use of systemic steroids As noted above, we w ill be tapering her prednisone again. Her last DEXA scan was in September 2018. This is managed primarily through her primary clinic. Related to Age-related osteoporosis w/o current pathological fracture She will have routin e laboratories today for monitoring medications and disease. Related to Other halfway (current) drug therapy Her rheumatoid arthr itis is well controlled still on her current regimen. She will stay on her same dose of methotrexate. I recommended a slow decrease the prednisone by the equivalent of one half milligram per month. A written schedule with alternating doses was provided to her. Related to Rheu arthritis w rheu factor mult site w/o [employer] involv Her osteoporosis is managed through her primary clinic. Her last DEXA scan was in September 2018. Related to Age-related osteoporosis w/o current pathological fracture Her generalized oste oarthritis also seems reasonably well controlled right now. Again, I did not recommend any change in treatment for this. Related to Primary generalized (osteo)arthritis She will have routin e laboratories today for monitoring medications and disease. 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 I emphasized the importance of this since we have increased her methotrexate dose since I last saw her. Related to Other halfway (current) drug therapy See discussion above. Related [...] along with a very low dose of [id number] ibuprofen. I did not recommend any change in her current regimen for now. Hopefully I can see her in person in 3 months. Related to Rheu arthritis w rheu factor mult site w/o org/sys involv See discussion above regarding tapering the prednisone. Related to intermediate (current) use of systemic steroids The carpal tunnel sy ndrome in her right hand resolved with the resolution of the swelling in that right wrist related to her rheumatoid arthritis. Related to Carpal tunnel syndrome, right upper limb She will have routin e laboratories today for monitoring medications and disease. Related to Other halfway (current) drug therapy She continues to los [...] w/o org/sys involv See discussion above regarding the prednisone. 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 Related to Other halfway (current) drug therapy Although the prednis one [...] arthritis w rheu factor mult site w/o [employer] involv She has right carpal tunnel syndrome, [...] calcium and vitamin D. Related to intermediate (current) use of systemic steroids If anything, [...] arthritis w rheu factor mult site w/o org/[employer] involv She will have routin e laboratories today for monitoring medications and disease. Related to Other halfway (current) drug therapy She likely does have osteoporosis. She is scheduled for bone densitometry at the end of September. She plans to have results of that forwarded to me. 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 Related to Other halfway (current) drug therapy See discussion above . I recommended followup with her primary physician regarding this issue. It's possible that she might benefit from a saline nasal spray such as [place]. Related to Nasal congestion If this is [...] eyes and dry mouth. These will include [id number] preservative-free artificial tears (I gave her specific [...] of her prednisone dose. Related to intermediate (current) use of systemic steroids She will have routin e laboratories today for monitoring medications and disease. Related to Other halfway (current) drug therapy As was noted at the time of [...] I would like her to see an director supply chain to make sure that she does not have any rheumatoid-related inflammatory eye disease as the cause of this recent redness. I don't think this is a side effect of the Plaquenil. Related to Conjunctivitis See discussion above regarding the Plaquenil eye exam. Related to Other halfway (current) drug therapy She has some pain [...] multiple sites w/o organ involvement She has a diagnosis of type 2 diabetes but, as far as I can tell from her history, this has been fairly recent. She is not on treatment for this. I think it's unlikely that this has contributed to her musculoskeletal symptoms. Related to Type 2 diabetes mellitus without complications See discussion above regarding the prednisone. 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
--- OUTSIDE RECORDS SUMMARY | 2024-06-21 16:09 | XMS_ITS | Clinical Summary ---
Author Organization [facility] Address [facility] [place] [address] Care Team Providers Care Cell Liner Name Role Phone Claudia Beto Ivan FAUST Unavailable [phone] Sharif Nunez MD Unavailable [phone] Riley Camacho MD Unavailable [phone] Constanza Cardozo MD Primary Care Provider [phone] Inga Caballero MD Unavailable [phone] Allergies Active Allergy Reactions Criticality Noted [...] Take 2 mg by mouth daily Active gentamicin 0.1 % ointment Apply topically to affected area(s). 05/21/19 25 Active apixaban 5 mg tablet Take 5 mg by mouth two times daily. 05/31/19 25 Active cephalexin 500 mg capsule Take 500 mg by mouth three times daily. 06/12/19 25 Active lidocaine (viscous) 2% 2 % solutionIndicati ons:Mucositis Swish and spit 5 mL by mouth every 4 hours if needed for Stomatitis. Magic mouth wash - Lidocaine / Benadryl / Maalox 100 mL 2 06/20/19 25 Active benzocaine, dental, (AMERICAINE; ANBESOL; ORAJEL) 20 % mucosal gel by Submucosal Injection. route. 05/14/19 25 025 Discontinu ed(Duplica te therapy (E-cancel not sent)) lidocaine, viscous, 2% (XYLOCAINE) 2 % solution Swish and spit 5 mL by mouth every 4 hours if needed. Magic mouth wash - Lidocaine / Benadryl / Maalox 025 Discontinu ed(Reorder (E-cancel not sent)) Active Problems [...] weekly d/t ckd - Endo E-consult at [facility] 10/09/2020 with recommendation to continue fosamax for [...] She has hearing aids ([facility] in [place]). Obesity with body mass index 30 or greater 12/21 Arthritis, rheumatoid 08/17/2017 Overview (10/08/2021): RA Sees Dr. Nunez at [facility] [phone] fax [phone] Last Assessment & Plan: I went over [...] Plan: She is here today because [facility] will not supply her with 6 catheters /day. They told her that medicare would only cover 4 catheters/day. She only has 10 catheters left and needs a supply. I contacted Verónica Escalante ELECTRONICS DESIGN ENGINEER [place] [facility]. She sees her on a routine basis. She will provide Vanessa with enough catheters to get by until her order from [facility] is delivered. She will drive to [place] to support worker the catheters. I had sent Dr. Lopez's order and visit note to [facility] in [place]. Renay Renee will process the order and [...] Encounters Date Type Department Care Team Description 06/21/2024 1:30 PM CDT Orders Only [facility] [address] [place] [address] Lab, [place] Lab 06/21/[address] [place] [address] Constanza Cardozo MD 06/21/2024 Telephone [facility] [address] [place] [address] Jamila Mckeon NP Appointment 06/21/2024 Travel 06/21/2024 Refill [facility] [address] [place] [address] Constanza Cardozo MD Refill Request (Eliquis) 06/19/2024 Refill [facility] [address] [place] [address] Constanza Cardozo MD Refill Request (lidocaine, viscous, 2% (XYLOCAINE) 2 % solution/) 06/17/2024 Patient Outreach [facility] Care Management - Advanced Care Team [address] [place] [address] Jamila Dempsey Medication Management (COMPREHENSIVE MEDICATION REVIEW - PROVIDER REFERRAL - unsure if covered) 06/13/2024 12:40 PM CDT Office Visit [facility] [address] [place] [address] Constanza Cardozo MD Hospital F/U (06/11 Er) 06/13/2024 Travel 06/04/2024 Travel 05/31/2024 Orders Only [facility] [address] [place] [address] Constanza Cardozo MD Lab (CBC with differential ) 05/30/2024 Orders Only [facility] Scanner 1 scan: (1-Ord) [facility], VENOUS LE LT, 05/30/2024 05/30/2024 Nurse Triage [facility] [address] [place] [address] Constanza Cardozo MD Leg Pain/problem 05/27/2024 10:49 AM FRONT OFFICE ASSOCIATE - 05/27/2024 11:59 PM FRONT OFFICE ASSOCIATE Hospital Encounter [facility] [address] [place] [address] Pancytopenia (HC) 05/27/2024 10:15 AM FRONT OFFICE ASSOCIATE Office Visit [facility] [place] [facility] [address] [place] [phone] Jamila Mckeon, ELECTRONICS DESIGN ENGINEER Consult 05/27/2024 Travel 05/23/2024 Orders Only [facility] Scanner 1 scan: (1-Ord) INCOMING RECORDS-CT, [facility], 05/23/2024 05/23/2024 Orders Only [facility] Scanner 1 scan: (1-Ord) INCOMING RECORDS-LABS, [facility], 05/23/2024 05/21/2024 Telephone [facility] [place] [facility] [place] [address] [facility] [place] [address] Jamila Mckeon ELECTRONICS DESIGN ENGINEER Appointment 05/20/2024 11:15 AM FRONT OFFICE ASSOCIATE Office Visit [facility] [address] [place] [address] Riley Marquis MD Hospital F/U ([place], 05/13/24, mucositis) 05/20/2024 Travel 05/17/2024 Telephone [facility] [address] [place] [address] Constanza Cardozo MD Error-please disregard 05/14/2024 Orders Only [facility] Scanner 1 scan: (1-Ord) [facility], MULTIPLE LABS, 05/14/2024 05/14/2024 Orders Only [facility] Scanner 1 scan: (1-Ord) [place], CT CHEST W CON, 05/14/2024 05/14/2024 Orders Only [facility] Scanner 1 scan: (1-Ord) [facility], XR CHEST 2V, 05/14/2024 05/14/2024 Lab Requisition [facility] [phone] Ebony Lee MD 05/06/2024 1:25 PM FRONT OFFICE ASSOCIATE Office Visit [facility] [address] [place] [address] Riley Marquis MD Follow Up (oral sores- mouthwash does not seem to help ) 05/06/2024 Travel 05/06/2024 Nurse Triage [facility] [address] [facility] [place] [address] Constanza Cardozo MD Mouth Problem 04/02/2024 2:00 PM FRONT OFFICE ASSOCIATE Office Visit [facility] [address] [place] [address] Inga Caballero MD Consult (Hyperthyroidism ) 04/02/2024 [...] on file Legal Sex Female 3:06 PM FRONT OFFICE ASSOCIATE Gender Identity Not on file Sexual Orientation Not on file Obstetrics History Last Filed Vital Signs Vital Sign Reading Time Taken Comments Blood Pressure 150/68 06/13/2024 12:42 PM CDT Pulse 80 06/13/2024 12:42 PM CDT Temperature 36.6 C (97.8 F) 05/27/2024 10:06 AM FRONT OFFICE ASSOCIATE Respiratory Rate 16 05/27/2024 10:06 AM FRONT OFFICE ASSOCIATE Oxygen Saturation 100% 06/13/2024 12:42 PM CDT Inhaled Oxygen Concentration - - Weight 60.3 kg (133 lb) 06/13/2024 12:42 PM CDT Height 155.4 cm (5' 1.18) 05/27/2024 10:06 AM C Body Mass Index 24.98 05/27/2024 10:06 AM FRONT OFFICE ASSOCIATE Plan of Treatment Upcoming Encounters Date Type Department Care Team (Late st Contact Info) Description 06/24/2024 2:00 PM CDT Ancillary Procedure [facility] [address] [facility] [address] 06/24/2024 2:30 PM CDT Ancillary Procedure [facility] [address] [facility] [address] 07/11/2024 1:30 PM CDT Office Visit [facility] [address] [facility] [address] Constanza Cardozo MD [address] [place] [address] 07/24/2024 10:15 AM CDT Appointment [facility] [address] [place] [address] 07/24/2024 11:15 AM CDT Office Visit [facility] [place] [facility] [address] [place] [phone] Jamila Mckeon, FINESSE [address] [place] [address] 07/26/2024 2:30 PM CDT Pharmacist Medication Management [facility] [address] [place] [address] Elodia Callaway, aHreshD [address] [place] [address] 08/08/2024 3:00 PM CDT Office Visit [facility] [address] [place] [address] Eliseo Dias MD [address] [place] [address] 04/03/2025 2:15 PM FRONT OFFICE ASSOCIATE Office Visit [facility] [address] [facility] [address] [place] [address] [place] [address] [place] [address] Health Maintenance Due Date Last Done Comments [...] history exists Medical Devices Implanted Type Area Software Application Tester Device Identifier Shelf Expiration Date Model / Serial / Lot Lead Bladder 28cm Interstim Tined 3mm Spacing - [id number] Implanted:Qty: 1 on 05/04/2016 by Cesar Groves MD at [facility] N/A: Sacrum [employer] 04/25/2020 3889-28# / / [id number] Stimulator 7.7mm 14cc Interstim Ii - [id number] Implanted:Qty: 1 on 05/11/2016 by Cesar Groves MD at [facility] N/A: Sacrum [employer] Pain Therapy 10/07/2017 3058# / / [id number] Cmnt Bone 40g Simplex P Non Atb Mv - [id number] Implanted:Qty: 2 on 07/12/2017 by Ignacio Mead MD at [facility] Right: Knee [employer] 04/26/2018 6191-1-010 # / / [id number] Cmnt Bone 40g Simplex P Non Atb Mv - [id number] Implanted:Qty: 1 on 07/12/2017 by Ignacio Mead MD at [facility] Right: Knee [employer] 04/26/2018 6191-1-010 # / / [id number] Y9509-W-284 - [id number] Implanted:Qty: 1 on 07/12/2017 by Ignacio Mead MD at [facility] Right: Knee [employer] 04/27/2022 5551-G-350 / / [id number] Description:Triathlon X3 Asy mmetric patella I2149-R-570 - [id number] Implanted:Qty: 1 on 07/12/2017 by Ignacio Mead MD at [facility] Right: Knee [employer] 03/11/2022 5520-B-500 / / [id number] Description:Triathlon primar y tibial baseplate H0310-J-889 - [id number] Implanted:Qty: 1 on 07/12/2017 by Ignacio Mead MD at [facility] Right: Knee [employer] 05/21/2021 5510-F-502 / / [id number] Description:Triathlon crucia te retaining femoral F1555-O-358 - [id number] Implanted:Qty: 1 on 07/12/2017 by Ignacio Mead MD at [facility] Right: Knee 5531-G-50 9 / / [id number] Description:X3 triathlon CS INS Explanted Type Area Software Application Tester Device Identifier Shelf Expiration Date Model / Serial / Lot Lead Intrdcr Bladder Interstim - [id number] Explanted:Qty: 1 on 05/04/2016 by Cesar Groves MD at [facility] N/A: Sacrum [employer] Pain Therapy 05/27/2017 3550-18# / / [id number] Procedures Procedure Name Priority Date/Time Associated Diagnosis Comments RED CELL MORPHOLOGY STAT 06/21/2024 1 2:57 PM CDT Pancytopenia (HC) PLATELET ESTIMATE STAT 06/21/2024 12: 57 PM CDT Pancytopenia (HC) CBC WITH AUTO DIFFERENTIAL STAT 06/21/2024 12:57 PM CDT Pancytopenia (HC) CBC WITH AUTO DIFFERENTIAL STAT 06/21/2024 12:57 PM CDT Pancytopenia (HC) COMP METABOLIC PANEL STAT 06/21/2024 12:57 PM CDT Pancytopenia (HC) PLATELET ESTIMATION ([facility] REFLEX ONLY) Routine 06/13/2024 2:04 PM CDT CBC WITH AUTO DIFFERENTIAL Routine 06/13/2024 2:04 PM CDT Pancytopenia (HC) SCAN-ULTRASOUND REPORT 12:00 AM FRONT OFFICE ASSOCIATE CWS PATH REVIEW HEMATOLOGY Timed 05/27/2024 11:00 AM FRONT OFFICE ASSOCIATE Pancytopenia (HC) RED CELL MORPHOLOGY Timed 05/27/2024 1 1:00 AM FRONT OFFICE ASSOCIATE Pancytopenia (HC) PLATELET ESTIMATE Timed 05/27/2024 11: 00 AM FRONT OFFICE ASSOCIATE Pancytopenia (HC) MANUAL DIFFERENTIAL Timed 05/27/2024 1 1:00 AM FRONT OFFICE ASSOCIATE Pancytopenia (HC) CBC WITH AUTO DIFFERENTIAL Timed 05/27/2024 11:00 AM FRONT OFFICE ASSOCIATE Pancytopenia (HC) FERRITIN Today 05/27/2024 11:00 AM FRONT OFFICE ASSOCIATE Pancytopenia (HC) IRON PLUS IRON BINDING CAP Today 05/27/2024 11:00 AM FRONT OFFICE ASSOCIATE Pancytopenia (HC) HEPATIC FUNCTION PANEL Today 11:00 AM FRONT OFFICE ASSOCIATE Pancytopenia (HC) BASIC METABOLIC PANEL Today 05/27/2024 11:00 AM FRONT OFFICE ASSOCIATE Pancytopenia (HC) RETICULOCYTES Today 05/27/2024 11:00 AM FRONT OFFICE ASSOCIATE Pancytopenia (HC) CBC WITH AUTO DIFFERENTIAL Today 05/27/2024 11:00 AM FRONT OFFICE ASSOCIATE Pancytopenia (HC) SCAN CORRESP-LABORATORY RESULTS 05/23/2024 12:00 AM FRONT OFFICE ASSOCIATE SCAN CORRESP-IMAGING 05/23/2024 12:00 AM FRONT OFFICE ASSOCIATE CBC WITH AUTO DIFFERENTIAL Routine 05/20/2024 12:19 PM FRONT OFFICE ASSOCIATE Pancytopenia (HC) SCAN-LABORATORY REPORT 12:00 AM FRONT OFFICE ASSOCIATE SCAN-CT INTERPRETATION 12:00 AM FRONT OFFICE ASSOCIATE SCAN-RADIOLOGY REPORT 05/14/2024 12:00 AM FRONT OFFICE ASSOCIATE LAB TRACKING EVENT Routine 05/13/2024 7: 30 PM FRONT OFFICE ASSOCIATE PERIPHERAL BLD MORPHOLOGY Routine 05/13/2024 7:30 PM FRONT OFFICE ASSOCIATE XR DXA BONE DENSITY 2 SITES AXIAL Routine 10/06/2022 10:59 AM CDT Age-related osteoporosis without current pathological fracture from Last 3 Months or Most Recently Relevant to Health Maintenance Results * (ABNORMAL) CBC WITH AUTO DIFFERENTIAL (06/21/2024 12:57 PM CDT) Only the most recent of2 resultswithin the time period is included. WHITE BLOOD COUNT 3.3(L) 4.5 - 11.0 thou/cu mm 06/21/2024 3:29 PM T [facility] RED BLOOD COUNT 2.11(L) 4.00 - 5.20 mil/cu mm 06/21/2024 3:29 PM [facility] HEMOGLOBIN 7.1(L) 12.0 - 16.0 g/dL 06/21/2024 3:29 PM T [facility] HEMATOCRIT 21.3(L) 33.0 - 51.0 % 06/21/2024 3:29 PM [facility] MCV 101(H) 80 - 100 fL 06/21/2024 3:29 PM [facility] MCH 33.6 26.0 - 34.0 pg 06/21/2024 3:29 PM [facility] MCHC 33.3 32.0 - 36.0 g/dL 06/21/2024 3:29 PM [facility] RDW 22.0(H) 11.5 - 15.5 % 06/21/2024 3:29 PM [facility] PLATELET COUNT 13(LL) 140 - 440 thou/cu mm 06/21/2024 3:29 PM [facility] MPV 06/21/2024 3:29 PM [facility] Comment:Unable to be determi reddy % NEUT 73.7 % 06/21/2024 3:29 PM [facility] % LYMPH 21.8 % 06/21/2024 3:29 PM [facility] % MONO 0.6 % 06/21/2024 3:29 PM [facility] % EOS 3.6 % 06/21/2024 3:29 PM [facility] % BASO 0.3 % 06/21/2024 3:29 PM [facility] ABSOLUTE NEUTROPHILS 2.4 1.7 - 7.0 thou/cu mm 06/21/2024 3:29 PM [facility] ABSOLUTE LYMPHOCYTES 0.7(L) 0.9 - 2.9 thou/cu mm 06/21/2024 3:29 PM [facility] ABSOLUTE MONOCYTES 0.0 <0.9 thou/cu mm 06/21/2024 3:29 PM [facility] ABSOLUTE EOSINOPHILS 0.1 <0.5 thou/cu mm 06/21/2024 3:29 PM [facility] ABSOLUTE BASOPHILS 0.0 <0.3 thou/cu mm 06/21/2024 3:29 PM [facility] Blood BLOOD SPECIMEN / Unknown [facility] / Unknown 06/21/2024 12:57 PM CDT 06/21/2024 12:57 PM CDT us Constanza Cardozo MD HEMATOLOGY Final Resul t Performing Organization Address City/[facility] Co de Phone Number [facility] [address] [place] [address] * (ABNORMAL) RED CELL MORPHOLOGY (06/21/2024 12:57 PM CDT) Only the most recent of2 resultswithin the time period is included. [facility] ELLIPTOCYTES Few 06/21/2024 3:28 PM CDT [facility] RBC COMMENT Present(A ) RBC morphology appears normal, RBC morphology within normal limits for newborns. 06/21/2024 3:28 PM CDT [facility] Blood BLOOD SPECIMEN / Unknown [facility] / Unknown 06/21/2024 12:57 PM CDT 06/21/2024 12:57 PM CDT us Constanza Cardozo MD HEMATOLOGY Final Resul t Performing Organization Address [facility] Co de Phone Number [facility] [address] [place] [address] * (ABNORMAL) PLATELET ESTIMATE (06/21/2024 12:57 PM CDT) Only the most recent of2 resultswithin the time period is included. [facility] PLATELET ESTIMATE Decreased (A) Adequate, No estimate 06/21/2024 3:28 PM CDT [facility] Blood BLOOD SPECIMEN / Unknown [facility] / Unknown 06/21/2024 12:57 PM CDT 06/21/2024 12:57 PM CDT us Constanza Cardozo MD HEMATOLOGY Final Resul t Performing Organization Address [facility] Co de Phone Number [facility] [address] [place] [address] * (ABNORMAL) STAT Comp Metabolic Panel CMP (06/21/2024 12:57 PM CDT) [facility] SODIUM 132(L) 136 - 145 mmol/L 06/21/2024 2:32 PM [facility] POTASSIUM 4.8 3.5 - 5.1 mmol/L 06/21/2024 2:32 PM [facility] CHLORIDE 99 98 - 107 mmol/L 06/21/2024 2:32 PM [facility] CO2,TOTAL 22 22 - 29 mmol/L 06/21/2024 2:32 PM [facility] ANION GAP 11 5 - 18 06/21/2024 2:32 PM [facility] GLUCOSE 121(H) 70 - 99 mg/dL 06/21/2024 2:32 PM [facility] CALCIUM 8.9 8.8 - 10.4 mg/dL 06/21/2024 2:32 PM [facility] Comment: Reference ranges for this test were updated on 01/30/2024 to reflect our healthy population more accurately. Reference range changes are not retroactively applied to results, but previous results using the same methodology can be interpreted in the context of the new reference range. BUN 46(H) 8 - 23 mg/dL 06/21/2024 2:32 PM [facility] CREATININE 0.91(H) 0.50 - 0.90 mg/dL 06/21/2024 2:32 PM [facility] BUN/CREAT RATIO 51(H) 10 - 20 2:32 PM [facility] eGFR 62(L) >90 mL/min/1. 73m2 06/21/2024 2:32 PM [facility] Comment:As of 2021, eG FR is calculated by the CKD-EPI creatinine equation without race adjustment. eGFR can be influenced by muscle mass, exercise, and diet. The reported eGFR is an estimation only and is only applicable if the renal function is stable. ALBUMIN 3.5(L) 4.0 - 4.9 g/dL 06/21/2024 2:32 PM [facility] PROTEIN,TOTAL 6.2 6.0 - 8.0 g/dL 06/21/2024 2:32 PM [facility] BILIRUBIN,TOTAL 0.7 0.0 - 1.2 mg/dL 06/21/2024 2:32 PM CDT [facility] ALK PHOSPHATASE 112(H) 35 - 104 IU/L 06/21/2024 2:32 PM CDT [facility] ALT (SGPT) 70(H) 10 - 35 IU/L 06/21/2024 2:32 PM CDT [facility] AST (SGOT) 55(H) 10 - 35 IU/L 06/21/2024 2:32 PM CDT [facility] Blood BLOOD SPECIMEN / Unknown [facility] / Unknown 06/21/2024 12:57 PM CDT 06/21/2024 12:57 PM CDT us Constanza Cardozo MD CHEMISTRY Final Resul t [facility] [address] [place] [address] * (ABNORMAL) PLATELET ESTIMATION ([facility] REFLEX ONLY) (06/13/2024 2:04 PM CDT) Pathologist [facility] PLATELET ESTIMATION DECREASED( A) ADEQUATE [facility] 06/13/2024 2:04 PM CDT 06/13/2024 2:05 PM CDT us Constanza Cardozo MD HEMATOLOGY Final Resul t [facility] [address] [place] [address], [place] [phone] [facility] [address] [place] [address] * (ABNORMAL) CBC AND DIFFERENTIAL (06/13/2024 2:04 PM CDT) Only the most recent of2 resultswithin the time period is included. WHITE BLOOD CELL COUNT 4.5 3.8 - 10.8 Thousand/u L [facility] RED BLOOD CELL COUNT 2.85(L) 3.80 - 5.10 Million/uL [facility] HEMOGLOBIN 9.2(L) 11.7 - 15.5 g/dL [facility] HEMATOCRIT 28.0(L) 35.0 - 45.0 % [facility] MCV 98.2 80.0 - 100.0 fL [facility] MCH 32.3 27.0 - 33.0 pg [facility] MCHC 32.9 32.0 - 36.0 g/dL [facility] Comment: For adults, a slight decrease in the calculated MCHC value (in the range of 30 to 32 g/dL) is most likely not clinically significant; however, it should be interpreted with caution in correlation with other red cell parameters and the patient's clinical condition. RDW 21.2(H) 11.0 - 15.0 % [facility] PLATELET COUNT 64(L) 140 - 400 Thousand/u L [facility] MPV 11.8 7.5 - 12.5 fL [facility] ABSOLUTE NEUTROPHILS 3,731 1,500 - 7,800 cells/uL [facility] ABSOLUTE LYMPHOCYTES 630(L) 850 - 3,900 cells/uL [facility] ABSOLUTE MONOCYTES 41(L) 200 - 950 cells/uL [facility] ABSOLUTE EOSINOPHILS 81 15 - 500 cells/uL [facility] ABSOLUTE BASOPHILS 18 0 - 200 cells/uL [facility] NEUTROPHILS 82.9 % [facility] LYMPHOCYTES 14.0 % [facility] MONOCYTES 0.9 % [facility] EOSINOPHILS 1.8 % [facility] BASOPHILS 0.4 % [facility] CBC (INCLUDES DIFF/PLT) COMMENTS [facility] Comment: Review of the peripheral smear reveals decreased numbers of platelets. Blood BLOOD SPECIMEN / Unknown 06/13/2024 2:04 PM CDT 06/13/2024 2:05 PM CDT Constanza Cardozo MD HEMATOLOGY Final Resul t Performing Organization Address City/[facility]/ZIP Co de Phone Number [facility] [address] [place] [address], [place] [phone] [facility] [address] [place] [address] * SCAN-ULTRASOUND REPORT (05/30/2024 12:00 AM FRONT OFFICE ASSOCIATE) Anatomical Region Laterality Modality Other us Scanner OTHER Final Result * CWS PATH REVIEW HEMATOLOGY (05/27/2024 11:00 AM FRONT OFFICE ASSOCIATE) PATH COMMENT Reviewed by Destiny Hylton MT, MS ([facility]) on 05/29/2024 05/30/2024 11:48 AM FRONT OFFICE ASSOCIATE [facility] Blood BLOOD SPECIMEN / Unknown Venipuncture / Unknown 05/27/2024 11:00 AM FRONT OFFICE ASSOCIATE 05/27/2024 11:01 AM FRONT OFFICE ASSOCIATE Narrative [facility] - 05/30/2024 11:48 AM FRONT OFFICE ASSOCIATE This procedure was originally ordered at [facility]. This procedure was originally ordered at [facility]. This procedure was originally ordered at [facility]. us Jamila Mckeon NP LABORATORY Final Result Performing Organization Address City/[facility]/ZIP Co de Phone Number [facility] [address] [place] [address], [place] * MANUAL DIFFERENTIAL (05/27/2024 11:00 AM FRONT OFFICE ASSOCIATE) % NEUTROPHILS 63.0 % 05/27/2024 12:03 PM FRONT OFFICE ASSOCIATE [facility] % LYMPHOCYTES 28.0 % 05/27/2024 12:03 PM FRONT OFFICE ASSOCIATE [facility] % MONOCYTES 4.0 % 05/27/2024 12:03 PM FRONT OFFICE ASSOCIATE [facility] % EOSINOPHILS 2.0 % 05/27/2024 12:03 PM FRONT OFFICE ASSOCIATE [facility] % BASOPHILS 3.0 % 05/27/2024 12:03 PM [facility] NEUTROPHILS ABSOLUTE 3.2 1.7 - 7.0 thou/cu mm 05/27/2024 12:03 PM [facility] LYMPHOCYTES ABSOLUTE 1.4 0.9 - 2.9 thou/cu mm 05/27/2024 12:03 PM [facility] MONOCYTES ABSOLUTE 0.2 <0.9 thou/cu mm 05/27/2024 12:03 PM [facility] EOSINOPHILS ABSOLUTE 0.1 <0.5 thou/cu mm 05/27/2024 12:03 PM [facility] BASOPHILS ABSOLUTE 0.2 <0.3 thou/cu mm 05/27/2024 12:03 PM [facility] Blood BLOOD SPECIMEN / Unknown Venipuncture / Unknown 05/27/2024 11:00 AM [facility] 05/27/2024 11:01 AM [facility] - 05/27/2024 12:03 PM [facility] This procedure was originally ordered at [facility]. This procedure was originally ordered at [facility]. This procedure was originally ordered at [facility]. Jamila Mckeon NP HEMATOLOGY Final Result [facility] [address] [place] [address] * (ABNORMAL) IRON PLUS IRON BINDING CAP (05/27/2024 11:00 AM [facility]) IRON 93 37 - 145 ug/dL 05/28/2024 1:34 AM [facility] TRAL LABORATORY UIBC (UNSATURATED) 110(L) 112 - 347 ug/dL 05/28/2024 1:34 AM [facility] IRON BINDING CAPACITY 203(L) 250 - 400 ug/dL 05/28/2024 1:34 AM [facility] IRON,% SATURATION 46 14 - 50 % 05/28/2024 1:34 AM [facility] Blood BLOOD SPECIMEN / Unknown Venipuncture / Unknown 05/27/2024 11:00 AM FRONT OFFICE ASSOCIATE 05/27/2024 11:01 AM FRONT OFFICE ASSOCIATE us Jamila Mckeon ELECTRONICS DESIGN ENGINEER CHEMISTRY Final Result Performing Organization Address [facility] Co de Phone Number [facility] [address] [address], [place] * RETICULOCYTES (05/27/2024 11:00 AM FRONT OFFICE ASSOCIATE) RETIC% 1.5 0.5 - 1.5 % 05/27/2024 10:56 PM FRONT OFFICE ASSOCIATE [facility] RETIC (ABSOLUTE) 0.05 0.03 - 0.08 mil/cu mm 05/27/2024 10:56 PM FRONT OFFICE ASSOCIATE [facility] Blood BLOOD SPECIMEN / Unknown Venipuncture / Unknown 05/27/2024 11:00 AM FRONT OFFICE ASSOCIATE 05/27/2024 11:01 AM FRONT OFFICE ASSOCIATE Narrative [facility] - 05/27/2024 10:56 PM FRONT OFFICE ASSOCIATE This procedure was originally ordered at [facility]. us Jamila Mckeon ELECTRONICS DESIGN ENGINEER HEMATOLOGY Final Result Performing Organization Address [facility] Phone Number [facility] [address] [place] [address], [place] * (ABNORMAL) FERRITIN (05/27/2024 11:00 AM FRONT OFFICE ASSOCIATE) FERRITIN 1,217.0(H) 15.0 - 150.0 ng/mL 05/28/2024 1:35 AM FRONT OFFICE ASSOCIATE [facility] Blood BLOOD SPECIMEN / Unknown Venipuncture / Unknown 05/27/2024 11:00 AM FRONT OFFICE ASSOCIATE 05/27/2024 11:01 AM FRONT OFFICE ASSOCIATE us Jamila Mckeon ELECTRONICS DESIGN ENGINEER CHEMISTRY Final Result Performing Organization Address [facility] Co de Phone Number [facility] [address] [address], [place] * (ABNORMAL) HEPATIC FUNCTION PANEL (05/27/2024 11:00 AM [facility]) ALBUMIN 3.9(L) 4.0 - 4.9 g/dL 05/27/2024 11:27 AM [facility] PROTEIN,TOTAL 6.7 6.0 - 8.0 g/dL 05/27/2024 11:27 AM [facility] BILIRUBIN,TOTAL 0.3 0.0 - 1.2 mg/dL 05/27/2024 11:27 AM [facility] BILIRUBIN,DIRECT 0.2 0.0 - 0.2 mg/dL 05/27/2024 11:27 AM [facility] BILIRUBIN,INDIRE CT 0.1(L) 0.2 - 0.8 mg/dL 05/27/2024 11:27 AM [facility] ALK PHOSPHATASE 97 35 - 104 IU/L 05/27/2024 11:27 AM [facility] ALT (SGPT) 43(H) 10 - 35 IU/L 05/27/2024 11:27 AM [facility] AST (SGOT) 52(H) 10 - 35 IU/L 05/27/2024 11:27 AM [facility] Blood BLOOD SPECIMEN / Unknown Venipuncture / Unknown 05/27/2024 11:00 AM [facility] 05/27/2024 11:01 AM [facility] us Jamila Mckeon NP CHEMISTRY Final Result [facility] [address] [place] [address] * (ABNORMAL) BASIC METABOLIC PANEL (05/27/2024 11:00 AM [facility]) SODIUM 139 136 - 145 mmol/L 05/27/2024 11:27 AM [facility] POTASSIUM 4.1 3.5 - 5.1 mmol/L 05/27/2024 11:27 AM [facility] CHLORIDE 103 98 - 107 mmol/L 05/27/2024 11:27 AM [facility] CO2,TOTAL 25 22 - 29 mmol/L 05/27/2024 11:27 AM [facility] ANION GAP 11 5 - 18 05/27/2024 11:27 AM [facility] GLUCOSE 110(H) 70 - 99 mg/dL 05/27/2024 11:27 AM [facility] CALCIUM 9.0 8.8 - 10.4 mg/dL 05/27/2024 11:27 AM [facility] Comment: Reference ranges for this test were updated on 01/30/2024 to reflect our healthy population more accurately. Reference range changes are not retroactively applied to results, but previous results using the same methodology can be interpreted in the context of the new reference range. BUN 21 8 - 23 mg/dL 05/27/2024 11:27 AM [facility] CREATININE 0.90 0.50 - 0.90 mg/dL 05/27/2024 11:27 AM [facility] BUN/CREAT RATIO 23(H) 10 - 20 11:27 AM [facility] eGFR 63(L) >90 mL/min/1. 73m2 05/27/2024 11:27 AM [facility] Comment:As of 2021, eG FR is calculated by the CKD-EPI creatinine equation without race adjustment. eGFR can be influenced by muscle mass, exercise, and diet. The reported eGFR is an estimation only and is only applicable if the renal function is stable. Blood BLOOD SPECIMEN / Unknown Venipuncture / Unknown 05/27/2024 11:00 AM FRONT OFFICE ASSOCIATE 05/27/2024 11:01 AM FRONT OFFICE ASSOCIATE us Jamila Mckeon NP CHEMISTRY Final Result [facility] [address] [place] [address] * SCAN CORRESP-LABORATORY RESULTS (05/23/2024 12:00 AM FRONT OFFICE ASSOCIATE) us Scanner OTHER Final Result * SCAN CORRESP-IMAGING (05/23/2024 12:00 AM FRONT OFFICE ASSOCIATE) Anatomical Region Laterality Modality Other us Scanner OTHER Final Result * SCAN-RADIOLOGY REPORT (05/14/2024 12:00 AM FRONT OFFICE ASSOCIATE) Anatomical Region Laterality Modality Other us Scanner OTHER Final Result * SCAN-LABORATORY REPORT (05/14/2024 12:00 AM FRONT OFFICE ASSOCIATE) us Scanner OTHER Final Result * SCAN-CT INTERPRETATION (05/14/2024 12:00 AM FRONT OFFICE ASSOCIATE) Anatomical Region Laterality Modality Other us Scanner OTHER Final Result * LAB TRACKING EVENT (05/13/2024 7:30 PM FRONT OFFICE ASSOCIATE) Other (Other) Client Collect / Unknown 05/13/2024 7:30 PM FRONT OFFICE ASSOCIATE 05/14/2024 10:14 PM FRONT OFFICE ASSOCIATE us Ebony Lee MD LAB BILL ONLY Final Result [facility] [address] [place] [address], * PERIPHERAL BLD MORPHOLOGY (05/13/2024 7:30 PM FRONT OFFICE ASSOCIATE) Case Report Special Hematology Report Case: [id number] Authorizing Provider: Ebony Lee, Collected: 05/13/2024 1930 Ordering Location: [facility] Received: 05/15/2024 0718 Pathologist: Ignacio Trammell MD Specimen: Peripheral Blood 05/20/2024 12:37 PM FRONT OFFICE ASSOCIATE [facility] Amendment 05/20/2024 - Absolute lymphocyte count corrected. 05/20/2024 12:37 PM FRONT OFFICE ASSOCIATE [facility] Final Diagnosis PERIPHERAL BLOOD: 1. Moderate normocytic anemia 2. Moderate thrombocytopenia 3. Leukopenia with normal differential counts 4. See comment 05/20/2024 12:37 PM FRONT OFFICE ASSOCIATE [facility] LABORATORY-C ENTRAL LABORATORY Amendment electronically signed by [...] also reviewed by Destiny Hylton MT, MS ([facility]). 05/20/2024 12:37 PM [facility] Clinical Information The patient is not 83-year-old female. Per CBC scan: Anemia, leukopenia, and thrombocytopenia. Per EPIC: Additional history includes hypertension, rheumatoid arthritis, and hypertensive kidney disease. She is currently receiving prednisone. 05/20/2024 12:37 PM FRONT OFFICE ASSOCIATE [facility] CBC and Differential HEMATOLOGY PARAMETERS Tested at: [facility] RESULTS EXPECTED VALUES WBC: 3.0 4.5-06s7432/cumm DECREASED RBC: 2.25 4.00-5.20 mil/cummDECREASED HGB: 7.4 12-16 gm/dl DECREASED HCT: 21.9 33-51% DECREASED MCV: 97.0 80-100 fl NORMOCYTIC MCH: 32.9 26-34 pg MCHC: 33.8 32-36 gm/dl NORMOCHROMIC RDW: 232 11.5-15.5% ELEVATED PLT: 69 [id number]/uL DECREASED Retic: 0.5 0.5-1.5% Differential Absolute (%) Expected (%) (x10*9/L) (x10*9/L) Neutrophils: 1.9932 (66) 1.7-7.0 (42-72%) Lymphocytes: 0.8758 (29) 0.9-2.9 (20-44%) DECREASED Eosinophils: 0.1 (3.3) <0.5 (0-2%) 05/20/2024 12:37 PM FRONT OFFICE ASSOCIATE [facility]IN LABOR[facility]ORY Microscopic Description The final diagnosis is based on microscopic examination of an appropriately stained blood smear. 05/20/2024 12:37 PM FRONT OFFICE ASSOCIATE [facility] Additional Information [facility] at [facility] - [address] [facility] [address], [place] [address] 05/20/2024 12:37 PM FRONT OFFICE ASSOCIATE [employer] [facility]- ENTRIN LABORATORY Blood (Peripheral Blood) 05/13/2024 7:30 PM FRONT OFFICE ASSOCIATE 05/15/2024 7:18 AM FRONT OFFICE ASSOCIATE us Ebony Lee MD HEMATOLOGY Edited Result - Final [employer] [facility] [address] [place] [address], [place] * (ABNORMAL) XR DXA BONE DENSITY [...] greater than 5 years. Na Valdivia PA-C [employer] [facility] 10/11/2022 Narrative 10/11/2022 2:15 PM CDT For Patients: Results are automatically released to your [employer] ([employer]) account once available, in compliance with federal regulations. This means that you may see your results before your provider has had a chance to review them. Please allow 2-3 business days for your provider to comment on the results. XR DXA Bone Mineral Density (BMD) EXAM [facility]ATION: [facility] [address] [facility] [id number] PATIENT NAME: Vanessa Andino DATE OF : [...] two scanners are made by the same seo manager. 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 07/14/2017 8:01 AM 01/12/2017 Power of Remelt Operator 07/14/2017 7:57 AM 01/06 Healthcare Directive 07/14/2017 7:57 AM * Full Code (Latest Code Status on File) Date Activated Date Inactivated Comments 07/12/2017 7:10 AM 07/14/2017 4:57 PM * Full Code Date Activated Date Inactivated Comments 05/11/2016 10:33 AM 05/11/2016 7:12 PM * Full Code Date Activated Date Inactivated Comments 05/04/2016 7:01 AM 05/04/2016 3:07 PM Care Teams Cell Liner Relationship Specialty Start Date End Date Constanza Cardozo MD [address] [place] [address] PCP - General Family Practice 08/25/22 Beto Taylor LSW Box Stapler 07/13/17 Sharif Nunez MD [address] [facility] [address] [place] [address] Rheumatology 10/08/21 Riley Camacho MD [address] [place] [id number] Surgery - Urology 08/25/22 [place] [address] [place] [address] Endocrinology Endocrinology 04/02/24
--- OUTSIDE RECORDS SUMMARY | 2024-06-21 18:21 | XMS_ITS | Clinical Summary ---
Author Organization [employer] [facility] Address [facility] [place] [address] Care Team Providers Care Event Organizer Name Role Phone Claudia Beto Ivan FAUST Unavailable [phone] Sharif Nunez MD Unavailable [phone] Riley Camacho MD Unavailable [phone] Constanza Cardozo MD Primary Care Provider [phone] Inga Caballero MD Unavailable [phone] Allergies Active Allergy Reactions Criticality Noted [...] weekly d/t ckd - Endo E-consult at [place] 10/09/2020 with recommendation to continue fosamax for [...] She has hearing aids ([facility] in [place]). Obesity with body mass index 30 or greater 12/21 Arthritis, rheumatoid 08/17/2017 Overview (10/08/2021): RA Sees Dr. Nunez at [facility] [phone] fax [phone] Last Assessment & Plan: I went over [...] & Plan: She is here today because [facility] supply her with 6 catheters /day. They told her that medicare would only cover 4 catheters/day. She only has 10 catheters left and needs a supply. I contacted Verónica Escalante SHARK BIOLOGIST [place] [facility]. She sees her on a routine basis. She will provide Vanessa with enough catheters to get by until her order from [facility] is delivered. She will drive to [place] to worm picker the catheters. I had sent Dr. Lopez's order and visit note to [facility] in [place]. Renay Renee will process the order and [...] Description 06/21/2024 1:30 PM CDT Orders Only [facility] [address] [facility] [place] [address] Lab, [place] Lab 06/21/[address] [place] [address] Constanza Cardozo MD 06/21/2024 Telephone [facility] [address] [place] [address] Jamila Mckeon NP Appointment 06/21/2024 Travel 06/21/2024 Refill [facility] [address] [place] [address] Constanza Cardozo MD Refill Request (Eliquis) 06/19/2024 Refill [facility] [address] [place] [address] Constanza Cardozo MD Refill Request (lidocaine, viscous, 2% (XYLOCAINE) 2 % solution/) 06/17/2024 Patient Outreach [facility] Care Management - Advanced Care Team [address] [place] [address] Jamila Dempsey Medication Management (COMPREHENSIVE MEDICATION REVIEW - PROVIDER REFERRAL - unsure if covered) 06/13/2024 12:40 PM CDT Office Visit [facility] [address] [place] [address] Constanza Cardozo MD Hospital F/U (06/11 Er) 06/13/2024 Travel 06/04/2024 Travel 05/31/2024 Orders Only [facility] [address] [place] [address] Constanza Cardozo MD Lab (CBC with differential ) 05/30/2024 Orders Only [facility] Scanner 1 scan: (1-Ord) [facility], VENOUS LE LT, 05/30/2024 05/30/2024 Nurse Triage [facility] [address] [place] [address] Constanza Cardozo MD Leg Pain/problem 05/27/2024 10:49 AM ALARM MECHANIC - 05/27/2024 11:59 PM ALARM MECHANIC Hospital Encounter [facility] [address] [place] [address] Pancytopenia (HC) 05/27/2024 10:15 AM ALARM MECHANIC Office Visit [facility] [address] [place] [phone] Jamila Mckeon, SHARK BIOLOGIST Consult 05/27/2024 Travel 05/23/2024 Orders Only [facility] Scanner 1 scan: (1-Ord) INCOMING RECORDS-CT, [facility], 05/23/2024 05/23/2024 Orders Only [facility] Scanner 1 scan: (1-Ord) INCOMING RECORDS-LABS, [facility], 05/23/2024 05/21/2024 Telephone [facility] [place] [address] [facility] [place] [address] Jamila Mckeon SHARK BIOLOGIST Appointment 05/20/2024 11:15 AM ALARM MECHANIC Office Visit [facility] [address] [facility] [place] [address] Riley Marquis MD Hospital F/U ([place], 05/13/24, mucositis) 05/20/2024 Travel 05/17/2024 Telephone [facility] [address] [facility] [place] [address] Constanza Cardozo MD Error-please disregard 05/14/2024 Orders Only [facility] Scanner 1 scan: (1-Ord) [facility], MULTIPLE LABS, 05/14/2024 05/14/2024 Orders Only [facility] Scanner 1 scan: (1-Ord) [place], CT CHEST W CON, 05/14/2024 05/14/2024 Orders Only [facility] Scanner 1 scan: (1-Ord) [facility], XR CHEST 2V, 05/14/2024 05/14/2024 Lab Requisition [facility] [phone] Ebony Lee MD 05/06/2024 1:25 PM ALARM MECHANIC Office Visit [facility] [address] [facility] [place] [address] Riley Marquis MD Follow Up (oral sores- mouthwash does not seem to help ) 05/06/2024 Travel 05/06/2024 Nurse Triage [facility] [address] [facility] [place] [address] Constanza Cardozo MD Mouth Problem 04/02/2024 2:00 PM ALARM MECHANIC Office Visit [facility] [address] [place] [address] Inga Caballero MD Consult (Hyperthyroidism ) 04/02/2024 [...] on file Legal Sex Female 3:06 PM ALARM MECHANIC Gender Identity Not on file Sexual Orientation Not on file Obstetrics History Last Filed Vital Signs Vital Sign Reading Time Taken Comments Blood Pressure 150/68 06/13/2024 12:42 PM CDT Pulse 80 06/13/2024 12:42 PM CDT Temperature 36.6 C (97.8 F) 05/27/2024 10:06 AM ALARM MECHANIC Respiratory Rate 16 05/27/2024 10:06 AM ALARM MECHANIC Oxygen Saturation 100% 06/13/2024 12:42 PM CDT Inhaled Oxygen Concentration - - Weight 60.3 kg (133 lb) 06/13/2024 12:42 PM CDT Height 155.4 cm (5' 1.18) 05/27/2024 10:06 AM C Body Mass Index 24.98 05/27/2024 10:06 AM ALARM MECHANIC Plan of Treatment Upcoming Encounters Date Type Department Care Team (Late st Contact Info) Description 06/24/2024 2:00 PM CDT Ancillary Procedure [facility] [address] [facility] [address] 06/24/2024 2:30 PM CDT Ancillary Procedure [facility] [address] [facility] [address] 07/11/2024 1:30 PM CDT Office Visit [facility] [address] [facility] [address] Constanza Cardozo MD [address] [place] [address] 07/24/2024 10:[address] [facility] [address] [place] [address] 07/24/2024 11:15 AM CDT Office Visit [facility] [address] [place] [phone] Jamila Mckeon, FINESSE [address] [place] [address] 07/26/2024 2:30 PM CDT Pharmacist Medication Management [facility] [address] [place] [address] Elodia Callaway, HareshD [address] [place] [address] 08/08/2024 3:00 PM CDT Office Visit [facility] [address] [place] [address] Eliseo Dias MD [address] [place] [address] 04/03/2025 2:15 PM ALARM MECHANIC Office Visit [facility] [address] [facility] [address] [place] [address] [place] [address] [place] [address] Health Maintenance Due Date Last Done Comments [...] history exists Medical Devices Implanted Type Area Neon Pumper Device Identifier Shelf Expiration Date Model / Serial / Lot Lead Bladder 28cm Interstim Tined 3mm Spacing - [id number] Implanted:Qty: 1 on 05/04/2016 by Cesar Groves MD at [facility] N/A: Sacrum [employer] 04/25/2020 3889-28# / / [id number] Stimulator 7.7mm 14cc Interstim Ii - [id number] Implanted:Qty: 1 on 05/11/2016 by Cesar Groves MD at [facility] N/A: Sacrum [employer] 10/07/2017 3058# / / [id number] Cmnt Bone 40g Simplex P Non Atb Mv - [id number] Implanted:Qty: 2 on 07/12/2017 by Ignacio Mead MD at [facility] Right: Knee [employer] 04/26/2018 6191-1-010 # / / [id number] Cmnt Bone 40g Simplex P Non Atb Mv - [id number] Implanted:Qty: 1 on 07/12/2017 by Ignacio Mead MD at [facility] Right: Knee [employer] 04/26/2018 6191-1-010 # / / [id number] O6277-R-308 - [id number] Implanted:Qty: 1 on 07/12/2017 by Ignacio Mead MD at [facility] Right: Knee [employer] 04/27/2022 5551-G-350 / / [id number] Description:Triathlon X3 Asy mmetric patella B0121-S-190 - [id number] Implanted:Qty: 1 on 07/12/2017 by Ignacio Mead MD at [facility] Right: Knee [employer] 03/11/2022 5520-B-500 / / [id number] Description:Triathlon primar y tibial baseplate B7720-L-644 - [id number] Implanted:Qty: 1 on 07/12/2017 by Ignacio Mead MD at [facility] Right: Knee [employer] 05/21/2021 5510-F-502 / / [id number] Description:Triathlon crucia te retaining femoral W1835-Y-675 - [id number] Implanted:Qty: 1 on 07/12/2017 by Ignacio Mead MD at [facility] Right: Knee 5531-G-50 9 / / [id number] Description:X3 triathlon CS INS Explanted Type Area Neon Pumper Device Identifier Shelf Expiration Date Model / Serial / Lot Lead Intrdcr Bladder Interstim - [id number] Explanted:Qty: 1 on 05/04/2016 by Cesar Groves MD at [facility] N/A: Sacrum [employer] Pain Therapy 05/27/2017 3550-18# / / [id number] Procedures Procedure Name Priority Date/Time Associated Diagnosis [...] CDT Pancytopenia (HC) SCAN-ULTRASOUND REPORT 12:00 AM ALARM MECHANIC CWS PATH REVIEW HEMATOLOGY Timed 05/27/2024 11:00 AM ALARM MECHANIC Pancytopenia (HC) RED CELL MORPHOLOGY Timed 05/27/2024 1 1:00 AM ALARM MECHANIC Pancytopenia (HC) PLATELET ESTIMATE Timed 05/27/2024 11: 00 AM ALARM MECHANIC Pancytopenia (HC) MANUAL DIFFERENTIAL Timed 05/27/2024 1 1:00 AM ALARM MECHANIC Pancytopenia (HC) CBC WITH AUTO DIFFERENTIAL Timed 05/27/2024 11:00 AM ALARM MECHANIC Pancytopenia (HC) FERRITIN Today 05/27/2024 11:00 AM ALARM MECHANIC Pancytopenia (HC) IRON PLUS IRON BINDING CAP Today 05/27/2024 11:00 AM ALARM MECHANIC Pancytopenia (HC) HEPATIC FUNCTION PANEL Today 11:00 AM ALARM MECHANIC Pancytopenia (HC) BASIC METABOLIC PANEL Today 05/27/2024 11:00 AM ALARM MECHANIC Pancytopenia (HC) RETICULOCYTES Today 05/27/2024 11:00 AM ALARM MECHANIC Pancytopenia (HC) CBC WITH AUTO DIFFERENTIAL Today 05/27/2024 11:00 AM ALARM MECHANIC Pancytopenia (HC) SCAN CORRESP-LABORATORY RESULTS 05/23/2024 12:00 AM ALARM MECHANIC SCAN CORRESP-IMAGING 05/23/2024 12:00 AM ALARM MECHANIC CBC WITH AUTO DIFFERENTIAL Routine 05/20/2024 12:19 PM ALARM MECHANIC Pancytopenia (HC) SCAN-LABORATORY REPORT 12:00 AM ALARM MECHANIC SCAN-CT INTERPRETATION 12:00 AM ALARM MECHANIC SCAN-RADIOLOGY REPORT 05/14/2024 12:00 AM ALARM MECHANIC LAB TRACKING EVENT Routine 05/13/2024 7: 30 PM ALARM MECHANIC PERIPHERAL BLD MORPHOLOGY Routine 05/13/2024 7:30 PM ALARM MECHANIC XR DXA BONE DENSITY 2 SITES AXIAL [...] 11.0 thou/cu mm 06/21/2024 3:29 PM T [facility] RED BLOOD COUNT 2.11(L) 4.00 - 5.20 mil/cu mm 06/21/2024 3:29 PM [facility] HEMOGLOBIN 7.1(L) 12.0 - 16.0 g/dL 06/21/2024 3:29 PM T [facility] HEMATOCRIT 21.3(L) 33.0 - 51.0 % 06/21/2024 3:29 PM [facility] MCV 101(H) 80 - 100 fL 06/21/2024 3:29 PM [facility] MCH 33.6 26.0 - 34.0 pg 06/21/2024 3:29 PM [facility] MCHC 33.3 32.0 - 36.0 g/dL 06/21/2024 3:29 PM [facility] RDW 22.0(H) 11.5 - 15.5 % 06/21/2024 3:29 PM [facility] PLATELET COUNT 13(LL) 140 - 440 thou/cu mm 06/21/2024 3:29 PM [facility] MPV 06/21/2024 3:29 PM [facility] Comment:Unable to be determi reddy % NEUT 73.7 % 06/21/2024 3:29 PM [facility] % LYMPH 21.8 % 06/21/2024 3:29 PM [facility] % MONO 0.6 % 06/21/2024 3:29 PM [facility] % EOS 3.6 % 06/21/2024 3:29 PM [facility] % BASO 0.3 % 06/21/2024 3:29 PM [facility] ABSOLUTE NEUTROPHILS 2.4 1.7 - 7.0 thou/cu mm 06/21/2024 3:29 PM [facility] ABSOLUTE LYMPHOCYTES 0.7(L) 0.9 - 2.9 thou/cu mm 06/21/2024 3:29 PM [facility] ABSOLUTE MONOCYTES 0.0 <0.9 thou/cu mm 06/21/2024 3:29 PM [facility] ABSOLUTE EOSINOPHILS 0.1 <0.5 thou/cu mm 06/21/2024 3:29 PM [facility] ABSOLUTE BASOPHILS 0.0 <0.3 thou/cu mm 06/21/2024 3:29 PM [facility] Blood BLOOD SPECIMEN / Unknown [facility] / Unknown 06/21/2024 12:57 PM CDT 06/21/2024 12:57 PM CDT us Constanza Cardozo MD HEMATOLOGY Final Resul t Performing Organization Address City/[facility] Co de Phone Number [facility] [address] [place] [address] * (ABNORMAL) RED CELL MORPHOLOGY (06/21/2024 12:57 PM CDT) Only the most recent of2 resultswithin the time period is included. [facility] ELLIPTOCYTES Few 06/21/2024 3:28 PM CDT [facility] RBC COMMENT Present(A ) RBC morphology appears normal, RBC morphology within normal limits for newborns. 06/21/2024 3:28 PM CDT [facility] Blood BLOOD SPECIMEN / Unknown [facility] / Unknown 06/21/2024 12:57 PM CDT 06/21/2024 12:57 PM CDT us Constanza Cardozo MD HEMATOLOGY Final Resul t Performing Organization Address [facility] Co de Phone Number [facility] [address] [place] [address] * (ABNORMAL) PLATELET ESTIMATE (06/21/2024 12:57 PM CDT) Only the most recent of2 resultswithin the time period is included. [facility] PLATELET ESTIMATE Decreased (A) Adequate, No estimate 06/21/2024 3:28 PM CDT [facility] Blood BLOOD SPECIMEN / Unknown [facility] / Unknown 06/21/2024 12:57 PM CDT 06/21/2024 12:57 PM CDT us Constanza Cardozo MD HEMATOLOGY Final Resul t Performing Organization Address [facility] Co de Phone Number [facility] [address] [place] [address] * (ABNORMAL) STAT Comp Metabolic Panel CMP (06/21/2024 12:57 PM CDT) [facility] SODIUM 132(L) 136 - 145 mmol/L 06/21/2024 2:32 PM [facility] POTASSIUM 4.8 3.5 - 5.1 mmol/L 06/21/2024 2:32 PM [facility] CHLORIDE 99 98 - 107 mmol/L 06/21/2024 2:32 PM [facility] CO2,TOTAL 22 22 - 29 mmol/L 06/21/2024 2:32 PM [facility] ANION GAP 11 5 - 18 06/21/2024 2:32 PM [facility] GLUCOSE 121(H) 70 - 99 mg/dL 06/21/2024 2:32 PM [facility] CALCIUM 8.9 8.8 - 10.4 mg/dL 06/21/2024 2:32 PM [facility] Comment: Reference ranges for this test were updated on 01/30/2024 to reflect our healthy population more accurately. Reference range changes are not retroactively applied to results, but previous results using the same methodology can be interpreted in the context of the new reference range. BUN 46(H) 8 - 23 mg/dL 06/21/2024 2:32 PM [facility] CREATININE 0.91(H) 0.50 - 0.90 mg/dL 06/21/2024 2:32 PM [facility] BUN/CREAT RATIO 51(H) 10 - 20 2:32 PM [facility] eGFR 62(L) >90 mL/min/1. 73m2 06/21/2024 2:32 PM [facility] Comment:As of 2021, eG FR is calculated by the CKD-EPI creatinine equation without race adjustment. eGFR can be influenced by muscle mass, exercise, and diet. The reported eGFR is an estimation only and is only applicable if the renal function is stable. ALBUMIN 3.5(L) 4.0 - 4.9 g/dL 06/21/2024 2:32 PM [facility] PROTEIN,TOTAL 6.2 6.0 - 8.0 g/dL 06/21/2024 2:32 PM [facility] BILIRUBIN,TOTAL 0.7 0.0 - 1.2 mg/dL 06/21/2024 2:32 PM CDT [facility] ALK PHOSPHATASE 112(H) 35 - 104 IU/L 06/21/2024 2:32 PM CDT [facility] ALT (SGPT) 70(H) 10 - 35 IU/L 06/21/2024 2:32 PM CDT [facility] AST (SGOT) 55(H) 10 - 35 IU/L 06/21/2024 2:32 PM CDT [facility] Blood BLOOD SPECIMEN / Unknown [facility] / Unknown 06/21/2024 12:57 PM CDT 06/21/2024 12:57 PM CDT us Constanza Cardozo MD CHEMISTRY Final Resul t [facility] [address] [place] [address] * (ABNORMAL) PLATELET ESTIMATION ([facility] REFLEX ONLY) (06/13/2024 2:04 PM CDT) Pathologist [facility] PLATELET ESTIMATION DECREASED( A) ADEQUATE [facility] 06/13/2024 2:04 PM CDT 06/13/2024 2:05 PM CDT us Constanza Cardozo MD HEMATOLOGY Final Resul t [facility] [address] [place] [address], [place] [phone] [facility] [address] [place] [address] * (ABNORMAL) CBC AND DIFFERENTIAL (06/13/2024 2:04 [...] HEMATOLOGY Final Resul t Performing Organization Address City/Va Hospital/ZIP Co de Phone Number [facility] [address] [place] [address], [place] [phone] [facility] [address] [place] [address] * SCAN-ULTRASOUND REPORT (05/30/2024 12:00 AM ALARM MECHANIC) Anatomical Region Laterality Modality Other us Scanner OTHER Final Result * CWS PATH REVIEW HEMATOLOGY (05/27/2024 11:00 AM ALARM MECHANIC) PATH COMMENT Reviewed by Destiny Hylton [place], MS ([facility]) on 05/29/2024 05/30/2024 11:48 AM ALARM MECHANIC [facility] Blood BLOOD SPECIMEN / Unknown Venipuncture / Unknown 05/27/2024 11:00 AM ALARM MECHANIC 05/27/2024 11:01 AM ALARM MECHANIC Narrative [facility] - 05/30/2024 11:48 AM ALARM MECHANIC This procedure was originally ordered at [facility]. This procedure was originally ordered at [facility]. This procedure was originally ordered at [facility]. us Jamila Mckeon NP LABORATORY Final Result Performing Organization Address City/Va Hospital/ZIP Co de Phone Number [facility] [address] [place] [phone], [place] * MANUAL DIFFERENTIAL (05/27/2024 11:00 AM ALARM MECHANIC) % NEUTROPHILS 63.0 % 05/27/2024 12:03 PM ALARM MECHANIC [facility] % LYMPHOCYTES 28.0 % 05/27/2024 12:03 PM ALARM MECHANIC [facility] % MONOCYTES 4.0 % 05/27/2024 12:03 PM ALARM MECHANIC [facility] % EOSINOPHILS 2.0 % 05/27/2024 12:03 PM ALARM MECHANIC [facility] % BASOPHILS 3.0 % 05/27/2024 12:03 PM [facility] NEUTROPHILS ABSOLUTE 3.2 1.7 - 7.0 thou/cu mm 05/27/2024 12:03 PM [facility] LYMPHOCYTES ABSOLUTE 1.4 0.9 - 2.9 thou/cu mm 05/27/2024 12:03 PM [facility] MONOCYTES ABSOLUTE 0.2 <0.9 thou/cu mm 05/27/2024 12:03 PM [facility] EOSINOPHILS ABSOLUTE 0.1 <0.5 thou/cu mm 05/27/2024 12:03 PM [facility] BASOPHILS ABSOLUTE 0.2 <0.3 thou/cu mm 05/27/2024 12:03 PM [facility] Blood BLOOD SPECIMEN / Unknown Venipuncture / Unknown 05/27/2024 11:00 AM [facility] 05/27/2024 11:[address] [facility] LABORATORY - 05/27/2024 12:03 PM [facility] This procedure was originally ordered at [facility]. This procedure was originally ordered at [facility]. This procedure was originally ordered at [facility]. Jamila Mckeon NP HEMATOLOGY Final Result [facility] [address] [place] [address] * (ABNORMAL) IRON PLUS IRON BINDING CAP (05/27/2024 11:00 AM [facility]) IRON 93 37 - 145 ug/dL 05/28/2024 1:34 AM [facility] UIBC (UNSATURATED) 110(L) 112 - 347 ug/dL 05/28/2024 1:34 AM [facility] IRON BINDING CAPACITY 203(L) 250 - 400 ug/dL 05/28/2024 1:34 AM [facility] IRON,% SATURATION 46 14 - 50 % 05/28/2024 1:34 AM [facility] Blood BLOOD SPECIMEN / Unknown Venipuncture / Unknown 05/27/2024 11:00 AM ALARM MECHANIC 05/27/2024 11:01 AM ALARM MECHANIC us Jamila Mckeon SHARK BIOLOGIST CHEMISTRY Final Result Performing Organization Address [facility] Co de Phone Number [facility] [address] [address], [place] * RETICULOCYTES (05/27/2024 11:00 AM ALARM MECHANIC) RETIC% 1.5 0.5 - 1.5 % 05/27/2024 10:56 PM ALARM MECHANIC [facility] RETIC (ABSOLUTE) 0.05 0.03 - 0.08 mil/cu mm 05/27/2024 10:56 PM ALARM MECHANIC [facility] Blood BLOOD SPECIMEN / Unknown Venipuncture / Unknown 05/27/2024 11:00 AM ALARM MECHANIC 05/27/2024 11:01 AM ALARM MECHANIC Narrative [facility] - 05/27/2024 10:56 PM ALARM MECHANIC This procedure was originally ordered at [facility]. us Jamila Mckeon SHARK BIOLOGIST HEMATOLOGY Final Result Performing Organization Address [facility] Phone Number [facility] [address] [place] [address], [place] * (ABNORMAL) FERRITIN (05/27/2024 11:00 AM ALARM MECHANIC) FERRITIN 1,217.0(H) 15.0 - 150.0 ng/mL 05/28/2024 1:35 AM ALARM MECHANIC [facility] Blood BLOOD SPECIMEN / Unknown Venipuncture / Unknown 05/27/2024 11:00 AM ALARM MECHANIC 05/27/2024 11:01 AM ALARM MECHANIC us Jamila Mckeon SHARK BIOLOGIST CHEMISTRY Final Result Performing Organization Address [facility] Co de Phone Number [facility] [address] [address], [place] * (ABNORMAL) HEPATIC FUNCTION PANEL (05/27/2024 11:00 AM [facility]) ALBUMIN 3.9(L) 4.0 - 4.9 g/dL 05/27/2024 11:27 AM [facility] PROTEIN,TOTAL 6.7 6.0 - 8.0 g/dL 05/27/2024 11:27 AM [facility] BILIRUBIN,TOTAL 0.3 0.0 - 1.2 mg/dL 05/27/2024 11:27 AM [facility] BILIRUBIN,DIRECT 0.2 0.0 - 0.2 mg/dL 05/27/2024 11:27 AM [facility] BILIRUBIN,INDIRE CT 0.1(L) 0.2 - 0.8 mg/dL 05/27/2024 11:27 AM [facility] ALK PHOSPHATASE 97 35 - 104 IU/L 05/27/2024 11:27 AM [facility] ALT (SGPT) 43(H) 10 - 35 IU/L 05/27/2024 11:27 AM [facility] AST (SGOT) 52(H) 10 - 35 IU/L 05/27/2024 11:27 [facility] [facility] Blood BLOOD SPECIMEN / Unknown Venipuncture / Unknown 05/27/2024 11:00 AM [facility] 05/27/2024 11:01 AM [facility] us Jamila Mckeon NP CHEMISTRY Final Result [facility] [address] [place] [address] * (ABNORMAL) BASIC METABOLIC PANEL (05/27/2024 11:00 AM [facility]) SODIUM 139 136 - 145 mmol/L 05/27/2024 11:27 AM [facility] POTASSIUM 4.1 3.5 - 5.1 mmol/L 05/27/2024 11:27 AM [facility] CHLORIDE 103 98 - 107 mmol/L 05/27/2024 11:27 AM [facility] CO2,TOTAL 25 22 - 29 mmol/L 05/27/2024 11:27 AM [facility] ANION GAP 11 5 - 18 05/27/2024 11:27 AM [facility] GLUCOSE 110(H) 70 - 99 mg/dL 05/27/2024 11:27 AM [facility] CALCIUM 9.0 8.8 - 10.4 mg/dL 05/27/2024 11:27 AM [facility] Comment: Reference ranges for this test were updated on 01/30/2024 to reflect our healthy population more accurately. Reference range changes are not retroactively applied to results, but previous results using the same methodology can be interpreted in the context of the new reference range. BUN 21 8 - 23 mg/dL 05/27/2024 11:27 AM [facility] CREATININE 0.90 0.50 - 0.90 mg/dL 05/27/2024 11:27 AM [facility] BUN/CREAT RATIO 23(H) 10 - 20 11:27 AM [facility] eGFR 63(L) >90 mL/min/1. 73m2 05/27/2024 11:27 AM [facility] Comment:As of 2021, eG FR is calculated by the CKD-EPI creatinine equation without race adjustment. eGFR can be influenced by muscle mass, exercise, and diet. The reported eGFR is an estimation only and is only applicable if the renal function is stable. Blood BLOOD SPECIMEN / Unknown Venipuncture / Unknown 05/27/2024 11:00 AM [facility] 05/27/2024 11:01 AM [facility] us Jamila Mckeon NP CHEMISTRY Final Result [facility] [address] [place] [address] * SCAN CORRESP-LABORATORY RESULTS (05/23/2024 12:00 AM [facility]) us Scanner OTHER Final Result * SCAN CORRESP-IMAGING (05/23/2024 12:00 AM [facility]) Anatomical Region Laterality Modality Other us Scanner OTHER Final Result * SCAN-RADIOLOGY REPORT (05/14/2024 12:00 AM [facility]AN[facility]) Anatomical Region Laterality Modality Other us Scanner OTHER Final Result * SCAN-LABORATORY REPORT (05/14/2024 12:00 AM ALARM [facility]CHANIC) us Scanner OTHER Final Result * SCAN-CT INTERPRETATION (05/14/2024 12:00 AM [facility]) Anatomical Region Laterality Modality Other us Scanner OTHER Final Result * LAB TRACKING EVENT (05/13/2024 7:30 PM [facility]) Other (Other) Client Collect / Unknown 05/13/2024 7:30 PM [facility] 05/14/2024 10:14 PM [facility] us Ebony Lee MD LAB BILL ONLY Final Result [facility] [address] [place] [address], * PERIPHERAL BLD MORPHOLOGY (05/13/2024 7:30 PM ALARM MECHANIC) Case Report Special Hematology Report Case: [id number] Authorizing Provider: Ebony Lee, Collected: 05/13/2024 1930 Ordering Location: [facility] Received: 05/15/2024 0718 Pathologist: Ignacio Trammell MD Specimen: Peripheral Blood 05/20/2024 12:37 PM [facility]CHANIC [employer] Amendment 05/20/2024 - Absolute lymphocyte count corrected. 05/20/2024 12:37 PM [facility] Final Diagnosis PERIPHERAL BLOOD: 1. Moderate normocytic anemia 2. Moderate thrombocytopenia 3. Leukopenia with normal differential counts 4. See comment 05/20/2024 12:37 PM ALARM MECHANIC [employer] [facility] Amendment electronically signed by [...] also reviewed by Destiny Hylton MT, MS ([facility]). 05/20/2024 12:37 PM [facility] Clinical Information The patient is not 83-year-old female. Per CBC scan: Anemia, leukopenia, and thrombocytopenia. Per EPIC: Additional history includes hypertension, rheumatoid arthritis, and hypertensive kidney disease. She is currently receiving prednisone. 05/20/2024 12:37 PM [facility]CHAN[facility] CBC and Differential HEMATOLOGY PARAMETERS Tested at: [facility] RESULTS EXPECTED VALUES WBC: 3.0 4.5-79b2369/cumm DECREASED RBC: 2.25 4.00-5.20 mil/cummDECREASED HGB: 7.4 12-16 gm/dl DECREASED HCT: 21.9 33-51% DECREASED MCV: 97.0 80-100 fl NORMOCYTIC MCH: 32.9 26-34 pg MCHC: 33.8 32-36 gm/dl NORMOCHROMIC RDW: 232 11.5-15.5% ELEVATED PLT: 69 140-013o5331/uL DECREASED Retic: 0.5 0.5-1.5% Differential Absolute (%) Expected (%) (x10*9/L) (x10*9/L) Neutrophils: 1.9932 (66) 1.7-7.0 (42-72%) Lymphocytes: 0.8758 (29) 0.9-2.9 (20-44%) DECREASED Eosinophils: 0.1 (3.3) <0.5 (0-2%) 05/20/2024 12:37 PM [facility]CHANIC [facility]- ENTROH LABORATORY Microscopic Description The final diagnosis is based on microscopic examination of an appropriately stained blood smear. 05/20/2024 12:37 PM [facility] MECHANIC [facility] ENTROH [facility]ORY Additional Information Interpreted at [facility] - [address] [facility] [address], [place] [address] 05/20/2024 12:37 PM ALARM MECHANIC [facility]- ENTROH [facility]ORY Blood (Peripheral Blood) 05/13/2024 7:30 PM ALARM MECHANIC 05/15/2024 7:18 AM ALARM MECHANIC us Ebony Lee MD HEMATOLOGY Edited Result - Final [facility] [address] [place] [address], [place] * (ABNORMAL) XR DXA BONE DENSITY [...] greater than 5 years. Na Valdivia PA-C [employer] [facility] 10/11/2022 Narrative 10/11/2022 2:15 PM CDT For Patients: Results are automatically released to your [employer] ([employer]) account once available, in compliance with federal regulations. This means that you may see your results before your provider has had a chance to review them. Please allow 2-3 business days for your provider to comment on the results. XR DXA Bone Mineral Density (BMD) EXAM LOCATION: [facility] [address] [facility] [address] PATIENT NAME: Vanessa Andino DATE OF : [...] scanners are made by the same manager mac. 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 Operator Expl anation POLST 07/14/2017 8:01 AM 01/12/2017 Power of Morphologist 07/14/2017 7:57 AM 01/06 Healthcare Directive 07/14/2017 7:57 AM * Full Code (Latest Code Status on File) Date Activated Date Inactivated Comments 07/12/2017 7:10 AM 07/14/2017 4:57 PM * Full Code Date Activated Date Inactivated Comments 05/11/2016 10:33 AM 05/11/2016 7:12 PM * Full Code Date Activated Date Inactivated Comments 05/04/2016 7:01 AM 05/04/2016 3:07 PM Care Teams Event Organizer Relationship Specialty Start Date End Date Constanza Cardozo MD [address] [place] [address] PCP - General Family Practice 08/25/22 Beto Taylor LSW Bandage Wrapping Machine Operator 07/13/17 Sharif Nunez MD [address] [facility] [address] [place] [address] Rheumatology 10/08/21 Riley Camacho MD [address] [place] [id number] Surgery - Urology 08/25/22 [place] [address] [place] [address] Endocrinology Endocrinology 04/02/24
--- OUTSIDE RECORDS SUMMARY | 2024-06-21 18:21 | XMS_ITS | Continuity of Care Document ---
Author Organization [facility] Address [address] [place] [address] Phone Care Team Providers Care Parakeet Raiser Name Role Phone Sharif Nunez MD Unavailable [...] Protein Dna Antibody, Single Strand Dna Antibody, [place] Nuclear Antigen Antibodies CCP Antibody Lyme Disease [...] [address], [place], [address], [place] tel:[phone] [facility] , No Information 5 Mayra Olguin. [facility] [address], [place], [place], [address], [place]. tel:[phone] Office/Outpa tient Visit, Est [facility] , [address], [place], [address], [place] tel:[phone] [facility] , Follow [...] [address], [place], [place], [address], [place]. tel:[phone] Referring Provider: Sharif Phipps, [facility] [address], [place], [place], [address]. tel:[phone] Office/Outpa tient Visit, Est [facility] , [address], [place], [place], [address], [place] tel:[phone] [facility] , Follow Up of Seropositive rheumatoid arthritis (chief complaint)Os teoporosis (chief complaint)Os teoarthritis (chief complaint) Rheumatoid arthritis with rheumatoid factor of multiple sites without organ or systems involvementA ge-related osteoporosis without current pathological fractureLong term (current) use of systemic steroidsOthe r intermodal customer service (current) drug therapyCellu litis of left lower limb Sep-0 4 Mayra Olguin. [facility] [address], [place], [address], [place]. tel:[phone] Referring Provider: Sharif Phipps, [facility] [address], [place], [address]. tel:[phone] Office/Outpa tient Visit, Est [facility] , [address], [place], [address], [place] tel:[phone] [facility] , Follow Up of Seropositive rheumatoid arthritis (chief complaint)Os teoporosis (chief complaint)Os teoarthritis (chief complaint) Rheumatoid arthritis with rheumatoid factor of multiple sites without organ or systems involvementA ge-related osteoporosis without current pathological fractureLong term (current) use of systemic steroidsOthe r intermodal customer service (current) drug therapyCellu litis of left lower limb Ozzy-0 4 Mayra Olguin. [facility] [address], [place], [address], [place]. tel:[phone] Referring Provider: Sharif Phipps, [facility] [address], [place], [address]. tel:[phone] Office/Outpa tient Visit, Est [facility] , [address], [place], [address], [place] tel:[phone] [facility] , Follow Up of Seropositive rheumatoid arthritis (chief complaint)Os teoporosis (chief complaint)Os teoarthritis (chief complaint) Rheumatoid arthritis with rheumatoid factor of multiple sites without organ or systems involvementA ge-related osteoporosis without current pathological fractureLong term (current) use of systemic steroidsOthe r intermodal customer service (current) drug therapyCellu litis of left lower limb 4 Mayra Olguin. [facility] [address], [place], [address], [place]. tel:[phone] Referring Provider: Sharif Phipps, [facility] [address], [place], [address]. tel:[phone] Office/Outpa tient Visit, Est [facility] , [address], [place], [address], [place] tel:[phone] [facility] , Follow Up of Seropositive rheumatoid arthritis (chief complaint)Os teoporosis (chief complaint)Os teoarthritis (chief complaint) Rheumatoid arthritis with rheumatoid factor of multiple sites without organ or systems involvementA ge-related osteoporosis without current pathological fractureLong term (current) use of systemic steroidsOthe r intermodal customer service (current) drug therapyCellu litis of left lower limb 3 Mayra Olguin. [facility] [address], [place], [address], [place]. tel:[phone] Referring Provider: Sharif Phipps, [facility] [address], [place], [address]. tel:[phone] Office/Outpa tient Visit, Est [facility] , [address], [place], [address], [place] tel:[phone] [facility] , Follow Up of Seropositive rheumatoid arthritis (chief complaint)Os teoporosis (chief complaint)Os teoarthritis (chief complaint) Rheumatoid arthritis with rheumatoid factor of multiple sites without organ or systems involvementO ther low back painAge-rela sheryl osteoporosis without current pathological fractureLong term (current) use of systemic steroidsOthe r intermodal customer service (current) drug therapy 3 Mayra Olguin. [facility] [address], [place], [address], [place]. tel:[phone] Referring Provider: Sharif Phipps, [facility] [address], [place], [address]. tel:[phone] Office/Outpa tient Visit, Est [facility] , [address], [place], [address], [place] tel:[phone] [facility] , Follow Up of Seropositive rheumatoid arthritis (chief complaint)Os teoporosis (chief complaint)Os teoarthritis (chief complaint) Rheumatoid arthritis with rheumatoid factor of multiple sites without organ or systems involvementO ther low back painAge-rela sheryl osteoporosis without current pathological fractureLong term (current) use of systemic steroidsOthe r intermodal customer service (current) drug therapy 3 Mayra Olguin. [facility] [address], [place], [address], [place]. tel:[phone] Referring Provider: Sharif Phipps, [facility] [address], [place], [address]. tel:[phone] Office/Outpa tient Visit, Est [facility] , [address], [place], [address], [place] tel:[phone] [facility] , Follow Up of Seropositive rheumatoid arthritis (chief complaint)Os teoporosis (chief complaint)Os teoarthritis (chief complaint) Rheumatoid arthritis with rheumatoid factor of multiple sites without organ or systems involvementO ther low back painAge-rela sheryl osteoporosis without current pathological fractureLong term (current) use of systemic steroidsOthe r intermodal customer service (current) drug therapy 3 Mayra Olguin. [facility] [address], [place], [address], [place]. tel:[phone] Referring Provider: Sharif Phipps, [facility] [address], [place], [address]. tel:[phone] Office/Outpa tient Visit, Est [facility] , [address], [place], [address], [place] [phone] [facility] , Follow Up of Seropositive rheumatoid arthritis (chief complaint)Os teoporosis (chief complaint)Os teoarthritis (chief complaint) Rheumatoid arthritis with rheumatoid factor of multiple sites without organ or systems involvementO ther low back painAge-rela sheryl osteoporosis without current pathological fractureLong term (current) use of systemic steroidsOthe r usp (current) drug therapy 2 Mayra Mcdonald [facility] [address], [place], [address], [place]. tel:[phone] Referring Provider: Sharif Phipps, [facility] [address], [place], [address]. tel:[phone] Office/Outpa tient Visit, Est [facility] , [address], [place], [address], [place] tel:[phone] [facility] , Follow Up of Seropositive rheumatoid arthritis (chief complaint)Os teoporosis (chief complaint)Os teoarthritis (chief complaint) Rheumatoid arthritis with rheumatoid factor of multiple sites without organ or systems involvementO ther low back painAge-rela sheryl osteoporosis without current pathological fractureLong term (current) use of systemic steroidsOthe r usp (current) drug therapy 2 Mayra Mcdonald [facility] [address], [place], [address], [place]. tel:[phone] Referring Provider: Sharif Phipps, [facility] [address], [place], [address]. tel:[phone] Office/Outpa tient Visit, Est [facility] , [address], [place], [address], [place] tel:[phone] [facility] , Follow Up of Seropositive rheumatoid arthritis (chief complaint)Os teoporosis (chief complaint)Os teoarthritis (chief complaint) Rheumatoid arthritis with rheumatoid factor of multiple sites without organ or systems involvementA ge-related osteoporosis without current pathological fractureLong term (current) use of systemic steroidsOthe r usp (current) drug therapyOther low back pain 2 Mayra Olguin. [facility] [address], [place], [address], [place]. tel:[phone] Referring Provider: Sharif Phipps, [facility] [address], [place], [address]. tel:[phone] Office/Outpa tient Visit, Est [facility] , [address], [place], [address], [place] tel:[phone] [facility] , Follow Up of Seropositive rheumatoid arthritis (chief complaint)Os teoporosis (chief complaint)Os teoarthritis (chief complaint) Rheumatoid arthritis with rheumatoid factor of multiple sites without organ or systems involvementH allucination Eric-related osteoporosis without current pathological fractureOthe r intermodal customer service (current) drug therapyLong term (current) use of systemic steroids 1 Mayra Olguin. [facility] [address], [place], [address], [place]. tel:[phone] Referring Provider: Sharif Phipps [facility] [address], [place], [address]. tel:[phone] Office/Outpa tient Visit, Est [facility] , [address], [place], [address], [place] tel:[phone] [facility] , Follow [...] P.[facility]., [address], [place], [address], [place]. tel:[phone] Referring Provider: Sharif Phipps, [facility] [address], [place], [address]. tel:[phone] Office/Outpa tient Visit, Est [facility] , [address], [place], [address], [place] tel:[phone] [facility] , Follow [...] P.[facility]., [address], [place], [address], [place]. tel:[phone] Referring Provider: Sharif Phipps, [facility] [address], [place], [address]. tel:[phone] Office/Outpa tient Visit, Est [facility] , [address], [place], [address], [place] tel:[phone] [facility] , Follow Up of Seropositive rheumatoid arthritis (chief complaint) Rheumatoid arthritis with rheumatoid factor of multiple sites without organ or systems involvementA bnormal weight lossAge-rela shreyl osteoporosis without current pathological fractureOthe r usp (current) drug therapyLong term (current) use of systemic steroids 1 Mayra Mcdonald [facility] [address], [place], [address], [place]. tel:[phone] Referring Provider: Sharif Phipps, [facility] [address], [place], [address]. tel:[phone] Office/Outpa tient Visit, Est [facility] , [address], [place], [address], [place] tel:[phone] [facility] , Follow Up of Seropositive rheumatoid arthritis (chief complaint) Rheumatoid arthritis with rheumatoid factor of multiple sites without organ or systems involvementO ther intermodal customer service (current) drug therapyLong term (current) use of systemic steroids 0 Mayra Mcdonald [facility] [address], [place], [address], [place]. tel:[phone] Referring Provider: Sharif Phipps, [facility] [address], [place], [address]. tel:[phone] Office/Outpa tient Visit, Est [facility] , [address], [place], [address], [place] tel:[phone] [facility] , Follow Up of seropositive rheumatoid arthritis (chief complaint) Rheu arthritis w rheu factor mult site w/o org/sys involvAge-re lated osteoporosis w/o current pathological fractureOthe r usp (current) drug therapyLong term (current) use of systemic steroids 0 Nunez Sharif. [facility] [address], [place], [address], [place]. tel:[phone] Referring Provider: Sharif Phipps, [facility] [address], [place], [address]. tel:[phone] Office/Outpa tient Visit, Est [facility] , [address], [place], [address], [place] tel:[phone] [facility] , Follow Up of seropositive rheumatoid arthritis (chief complaint) Rheu arthritis w rheu factor mult site w/o org/sys involvPrimar y generalized (osteo)arthr itisAge-rela sheryl osteoporosis w/o current pathological fractureOthe r usp (current) drug therapyLong term (current) use of systemic steroids 0 Mayra Mcdonald [facility] [address], [place], [address], [place]. tel:[phone] Referring Provider: Sharif Phipps, [facility] [address], [place], [address]. tel:[phone] Phone E/M By Phys 11-20 Min [facility] , [address], [place], [address], [place] tel:[phone] Telehealth Follow Up of seropositive rheumatoid arthritis (chief complaint)os teoarthritis (chief complaint) Rheu arthritis w rheu factor mult site w/o org/sys involvPrimar y generalized (osteo)arthr itisOther intermodal customer service (current) drug therapy 0 Mayra Mcdonald [facility] [address], [place], [address], [place]. tel:[phone] Referring Provider: Sharif Phipps, [facility] [address], [place], [address]. tel:[phone] Office/Outpa tient Visit, Est [facility] , [address], [place], [address], [place] tel:[phone] [facility] , Follow Up of seropositive rheumatoid arthritis (chief complaint) Rheu arthritis w rheu factor mult site w/o org/sys involvCarpal tunnel syndrome, right upper limbAbnormal weight lossOther usp (current) drug therapyLong term (current) use of systemic steroids 7- 0 Mayra Olguin. [facility] [address], [place], [address], [place]. tel:[phone] Referring Provider: Sharif Phipps, [facility] [address], [place], [address]. tel:[phone] Office/Outpa tient Visit, Est [facility] , [address], [place], [address], [place] tel:[phone] [facility] , Follow Up of seropositive rheumatoid arthritis (chief complaint) Rheu arthritis w rheu factor mult site w/o org/sys involvCarpal tunnel syndrome of right armPain in right shoulderOthe r usp (current) drug therapyLong term (current) use of systemic steroids 1-201 9 Mayra Olguin. [facility] [address], [place], [address], [place]. tel:[phone] Referring Provider: Sharif Phipps, [facility] [address], [place], [address]. tel:[phone] Office/Outpa tient Visit, Est [facility] , [address], [place], [address], [place] tel:[phone] [facility] , Follow Up of seropositive rheumatoid arthritis (chief complaint) Rheu arthritis w rheu factor mult site w/o org/sys involvOther intermodal customer service (current) drug therapyLong term (current) use of systemic steroids Mayra Olguin. [facility] [address], [place], [address], [place]. tel:[phone] Referring Provider: Sharif Phipps, [facility] [address], [place], [address]. tel:[phone] Office/Outpa tient Visit, Est [facility] , [address], [place], [address], [place] tel:[phone] [facility] , Follow Up of seropositive rheumatoid arthritis (chief complaint) Rheu arthritis w rheu factor mult site w/o org/sys involvOther intermodal customer service (current) drug therapyLong term (current) use of systemic steroids Mayra Olguin. [facility] [address], [place], [address], [place]. tel:[phone] Referring Provider: Sharif Phipps, [facility] [address], [place], [address]. tel:[phone] Office/Outpa tient Visit, Est [facility] , [address], [place], [address], [place] tel:[phone] [facility] , Follow Up of seropositive rheumatoid arthritis (chief complaint) Rheu arthritis w rheu factor mult site w/o org/sys involvDry eye syndrome of bilateral lacrimal glandsXerost omiaNasal congestionPr uritusOsteop orosisOther intermodal customer service (current) drug therapyLong term (current) use of systemic steroids 9 Mayra Olguin. [facility] [address], [place], [address], [place]. tel:[phone] Referring Provider: Sharif Phipps, [facility] [address], [place], [address]. tel:[phone] Office/Outpa tient Visit, Est [facility] , [address], [place], [address], [place] tel:[phone] [facility] , Follow Up of seropositive rheumatoid arthritis (chief complaint) Rheu arthritis w rheu factor mult site w/o org/sys involvConjun ctivitisAge- related osteoporosis w/o current pathological fractureOthe r usp (current) drug therapyLong term (current) use of systemic steroids Mayra Olguin. [facility] [address], [place], [address], [place]. tel:[phone] Referring Provider: Sharif Phipps, [facility] [address], [place], [address]. tel:[phone] Office/Outpa tient Visit, Est [facility] , [address], [place], [address], [place] tel:[phone] [facility] , Follow Up of seropositive rheumatoid arthritis (chief complaint) Seropositive RA of multiple sites w/o organ involvementP ain in left kneeAge-rela sheryl osteoporosis w/o current pathological fractureOthe r intermodal customer service (current) drug therapy 8 Mayra Olguin. [facility] [address], [place], [address], [place]. tel:[phone] Referring Provider: Sharif Phipps, [facility] [address], [place], [address]. tel:[phone] Office/Outpa tient Visit, New [facility] , [address], [place], [address], [place] tel:[phone] [facility] , Inflammatory Polyarthropa thy (chief complaint) Inflammatory polyarthropa thyAge-relat ed osteoporosis w/o current pathological fracturePrim gutierrez generalized osteoarthrit isType 2 diabetes mellitus without complication sLong term use of systemic steroids Mayra Olguin. [facility] [address], [place], [address], [place]. tel:[phone] Referring Provider: Sharif Phipps, [facility] [address], [place], [address]. tel:[phone] [facility] , [address], [place], [address], [place] tel:[phone] [facility] , No Information Mayra Olguin. [facility] [address], [place], [address], [place]. tel:[phone] Family History Family Member Type Diagnosis Age At Onset Son Problem (finding) stroke Mother Problem (finding) Arthritis Immunizations Vaccine Date Status Comments COVID-19 Moderna administered Source: Oth er Provider COVID-19 Moderna administered Source: Oth er Provider COVID-19 Moderna administered Source: Oth er Provider Payers Payer name Insurance type Covered democrat ID Authoriza tion(s) [employer] Advantage/[employer] BL [id number] Social History Type Description Quantity Date Captured [...] Information Instructions Date Instruction Additional Infor ty Although [...] or systems involvement [facility]. For this and multiple other reasons I still would like to taper her off of the prednisone if possible although that has been difficult. Related to Age-related osteoporosis without current pathological fracture See discussion above regarding the prednisone. 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 I am not receiving notes from her long term acute care registered nurse but she reports that she is having regular follow-up exams to monitor the Plaquenil.. Related to Other intermodal customer service (current) drug therapy He initially had a [...] involvement This is managed at her primary [facility]. Related to Age-related osteoporosis without current pathological fracture See discussion above regarding the prednisone. 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 I believe she had a Plaquenil eye exam in September although I do not have a report of that. Related to Other intermodal customer service (current) drug therapy This is an ongoing [...] involvement This is managed at her primary [facility]. Related to Age-related osteoporosis without current pathological fracture At this point, I do not feel like it is urgent to taper this very low-dose of prednisone despite her history of osteoporosis. She simply does not do well with lower dose. 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 She has a Plaquenil eye exam scheduled next month. Related to Other intermodal customer service (current) drug therapy She had an MRSA [...] lower dose. 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 Related to Other usp (current) drug therapy She still has an [...] well with any lower dose. 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 Related to Other usp (current) drug therapy She had a recent ivory lulitis involving the left lower leg. The actual ulcerated area is healed over with scab but is starch mangle tender in the dry area. I recommended [...] her prednisone dose as tolerated. Related to [facility] (current) use of systemic steroids She will have routin e laboratories today for monitoring medications and disease. Related to Other intermodal customer service (current) drug therapy She may be a [...] as tolerated. 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 Related to Other intermodal customer service (current) drug therapy Her rheumatoid arthr itis [...] prednisone dose. 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 Related to [facility] (current) use of systemic steroids She will have routin e laboratories today for monitoring medications and disease. Related to Other intermodal customer service (current) drug therapy See discussion above regarding very slow taper of her prednisone dose. 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 Related to Other intermodal customer service (current) drug therapy Her last bone densit [...] monitoring medications and disease. Related to Other intermodal customer service (current) drug therapy She has done well [...] monitoring medications and disease. Related to Other intermodal customer service (current) drug therapy See discussion above regarding the prednisone. Related to [facility] (current) use of systemic steroids See discussion above regarding the prednisone. Related to [facility] (current) use of systemic steroids She will [...] monitoring medications and disease. Related to Other intermodal customer service (current) drug therapy Although she is stil [...] monitoring medications and disease. Related to Other intermodal customer service (current) drug therapy She is asymptomatic currently [...] monitoring medications and disease. Related to Other intermodal customer service (current) drug therapy Her rheumatoid arthr itis [...] systems involvement See discussion above. Related to [facility] (current) use of systemic steroids Her rheumatoid [...] rheu factor mult site w/o org/sys involv As noted above, we w ill be tapering her prednisone again. Her last DEXA scan was in September 2018. This is managed primarily through her primary clinic. Related to Age-related osteoporosis w/o current pathological fracture She will have routin e laboratories today for monitoring medications and disease. Related to Other intermodal customer service (current) drug therapy Her generalized oste oarthritis [...] monitoring medications and disease. Related to Other intermodal customer service (current) drug therapy She is doing well [...] along with a very low dose of elns-nrx-irtkewj ibuprofen. I did not recommend any change in her current regimen for now. Hopefully I can see her in person in 3 months. Related to Rheu arthritis w rheu factor mult site w/o org/sys involv See discussion above regarding tapering the prednisone. Related to M[facility] (current) use of systemic steroids Her rheumatoid [...] monitoring medications and disease. Related to Other intermodal customer service (current) drug therapy See discussion above regarding the prednisone. Related to long term care social worker (current) use of systemic steroids She was [...] was in September 2018. Related to Other usp (current) drug therapy Although the prednis one [...] arthritis w rheu factor mult site w/o Flatora/TapImmunes involv She has right carpal tunnel syndrome, [...] of calcium and vitamin D. Related to M[facility] (current) use of systemic steroids If anything, [...] Other usp (current) drug therapy She likely does have osteoporosis. She is scheduled for bone densitometry at the end of September. She plans to have results of that forwarded to me. 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 Related to Other intermodal customer service (current) drug therapy She likely has osteo [...] monitoring medications and disease. Related to Other intermodal customer service (current) drug therapy See discussion above regarding the prednisone. Related to [facility] (current) use of systemic steroids See discussion above . I recommended followup with her primary physician regarding this issue. It's possible that she might benefit from a saline nasal spray such as [place]. Related to Nasal congestion If this is [...] eyes and dry mouth. These will include oudw-dyo-evcujlp preservative-free artificial tears (I gave her specific [...] taper of her prednisone dose. Related to [facility] (current) use of systemic steroids She is [...] I would like her to see an long term acute care registered nurse to make sure that she does not [...] the Plaquenil eye exam. Related to Other usp (current) drug therapy I think she does [...] the prednisone. Related to long term care social worker use of systemic steroids She has significant [...]
[2024-06-21 18:44] LABS: Basophils Percent Auto 0.3 % (0.0-3.0); Hematocrit 20.4 % (33.0-51.0); Immature Granulocytes Pct Auto 0.3 %; Lymphocytes Percent Auto 22.1 % (20-44); Mean Corpuscular HGB Conc 33 gm/dL (32-36); Mean Corpuscular Hemoglobin 34 pg (26-34); Mean Corpuscular Volume 101 fL (80-100); Monocytes Percent Auto 1.3 % (0.0-11.0); RDW Coefficient of Variation % 22.4 % (11.5-15.5); Red Blood Count 2.03 m/uL (4.00-5.20); White Blood Count* 3.03 K/uL (4.50-11.00)
[2024-06-21 18:56] LABS: Hemoglobin* 6.8 gm/dL (12.0-16.0); Platelet Count* 19 K/uL (140-440); Slide Review Reflex Yes
[2024-06-21 19:00] LABS: INR 1.41 (0.91-1.10); Prothrombin Time 18.2 Seconds
[2024-06-21 19:01] LABS: Partial Thromboplastin Time* 32 Seconds (23-33)
--- NOTE | 2024-06-21 19:27 | ED_ITS ---
HPI - General Adult General Date Seen: 06/21/24 Chief complaint: Unspecified Complaint, Adult Stated complaint: Low Blood Count Time Seen by Provider: 06/21/24 17:56 History of Present Illness HPI narrative: Patient is an 83-year-old woman sent here from [facility] for pancytopenia. 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 Plaquenil and an antibiotic were held, numbers improved and she was discharged home w outpt follow up. May 27: Patient followed up with [facility] in [place]. According to primary care labs at that time were hemoglobin of 10, white blood cell count of 5.2 and platelet count of [id number]. May 30: Patient seen in [place] ER with leg swelling, diagnosed with DVT and started on Eliquis June 11: Patient seen for worsening leg pain, started on Keflex for possible cellulitis June 13: Patient seen in follow-up by primary care. Leg was feeling better. Labs at that time showed a white blood cell count of 4.5, hemoglobin of 9.2 and platelet count of 64. June 21: Patient seen in clinic today for follow-up. Labs noted to show white blood cell count of 3.3, hemoglobin [place] 7[place]1 [place] [id number]. Mildly elevated LFTs, creatinine of 0.9. Patient provides minimal history here. She does note that her lip is been bleeding, notes easy bruising. According to primary care, she is currently on methotrexate. I do not see this on her med list, I do see it on her allergy list. She is under the impression that she is taking methotrexate, it was perhaps started in place of Plaquenil in April. I do not have access to her medications. Related Data Home Medications ?Medication ?Instructions ?Recorded ?Confirmed aspirin 81 mg tablet,delayed 81 mg PO DAILY 10/04/21 05/30/24 release (Adult Aspirin Regimen) multivitamin (Multiple Vitamins 1 tab PO QDAY 11/26/21 06/21/24 tablet) alendronate 70 mg tablet 70 mg PO SILVA 02/28/22 06/21/24 calcium 600 mg (as 1 cap PO DAILY 02/28/22 06/21/24 carbonate)-vitamin D3 12.5 mcg (500 unit) capsule (Calcium with Vit D3) furosemide 20 mg tablet 20 mg PO BID 12/05/22 03/28/25 losartan 50 mg tablet 50 mg PO DAILY 02/28/22 06/21/24 acetaminophen 500 mg tablet 1,000 mg PO Q6H PRN 07/13/22 06/21/24 (Acetaminophen Extra Strength) methenamine hippurate 1 gram tablet 1 g PO BID 11/26/22 05/30/24 benzocaine 20 % mucosal gel 1 applic mucous membrane QID PRN 05/14/24 05/30/24 clotrimazole 1 % topical cream 1 applic topical BID 05/14/24 05/30/24 prednisone 1 mg tablet 2 mg PO DAILY 05/14/24 05/30/24 Previous Rx's ?Medication ?Instructions ?Recorded Magic Mouthwash 5 ml PO Q4H PRN #120 mL 05/04/24 (Lidocaine/Benadryl/Maalox) 120 mL suspension apixaban 5 mg tablet (Eliquis) 5 mg PO BID #60 tabs 05/30/24 Allergies Allergy/AdvReac Type Severity Reaction Status Date / Time clonidine Allergy Mild Hallucinati Verified 06/21/24 16:33 ng leflunomide Allergy Mild Hallucinati Verified 06/21/24 16:33 ng lisinopril Allergy Mild increased Verified 06/21/24 16:33 creatinine methotrexate Allergy Mild did not Verified 06/21/24 16:33 feel well hydrocodone Allergy Unknown Vomiting Verified 06/21/24 16:33 oxycodone Allergy Unknown Verified 06/21/24 16:33 Opioids - Morphine Analogues Allergy Verified 06/21/24 16:33 Sulfa (Sulfonamide Allergy Verified 06/21/24 16:33 Antibiotics) surgical glue Allergy Uncoded 04/30/24 18:36 Review of Systems Status of ROS: Reports: 10 or more systems reviewed and unremarkable except as noted in History and below [facility] Medical History Breast mass, right ?N63.10 - Unspecified lump in the right breast, unspecified quadrant (ICD-10) MRSA infection ?A49.02 - Methicillin resistant Staphylococcus aureus infection, unspecified site (ICD-10) Neurocardiogenic pre-syncope ?R55 - Syncope and collapse (ICD-10) Physical deconditioning ?R53.81 - Other malaise (ICD-10) Closed fracture of distal radius and ulna ?S52.509A - Unspecified fracture of the lower end of unspecified radius, initial encounter for closed fracture (ICD-10) ?S52.609A - Unspecified fracture of lower end of unspecified ulna, initial encounter for closed fracture (ICD-10) Post-traumatic osteoarthritis, left wrist ?M19.132 - Post-traumatic osteoarthritis, left wrist (ICD-10) Closed fracture of left distal radius ?S52.502A - Unspecified fracture of the lower end of left radius, initial encounter for closed fracture (ICD-10) Closed fracture of left proximal humerus ?S42.202A - Unspecified fracture of upper end of left humerus, initial encounter for closed fracture (ICD-10) Lower extremity edema ?R60.0 - Localized edema (ICD-10) Pneumonia ?J18.9 - Pneumonia, unspecified organism (ICD-10) Sepsis ?A41.9 - Sepsis, unspecified organism (ICD-10) Gram-negative bacteremia ?R78.81 - Bacteremia (ICD-10) Lung nodules ?R91.8 - Other nonspecific abnormal finding of lung field (ICD-10) Sensorineural hearing loss, bilateral ?H90.3 - Sensorineural hearing loss, bilateral (ICD-10) Prediabetes ?R73.03 - Prediabetes (ICD-10) Presence of neurostimulator ?Z96.82 - Presence of neurostimulator (ICD-10) Sacral nerve stimulator present ?Z96.82 - Presence of neurostimulator (ICD-10) Recurrent urinary tract infection ?N39.0 - Urinary tract infection, site not specified (ICD-10) Hyperlipidemia ?E78.5 - Hyperlipidemia, unspecified (ICD-10) History of DVT (deep vein thrombosis) ?Z86.718 - Personal history of other venous thrombosis and embolism (ICD-10) Stage 3 chronic kidney disease ?N18.30 - Chronic kidney disease, stage 3 unspecified (ICD-10) Rheumatoid arthritis ?M06.9 - Rheumatoid arthritis, unspecified (ICD-10) High blood pressure ?I10 - Essential (primary) hypertension (ICD-10) Osteoarthritis ?M19.90 - Unspecified osteoarthritis, unspecified site (ICD-10) Surgical History S/P ORIF (open reduction internal fixation) fracture (12/06/21) ?Z98.890 - Other specified postprocedural states (ICD-10) ?Z87.81 - Personal history of (healed) traumatic fracture (ICD-10) S/P ORIF (open reduction internal fixation) fracture ?Z98.890 - Other specified postprocedural states (ICD-10) ?Z87.81 - Personal history of (healed) traumatic fracture (ICD-10) S/P total knee arthroplasty ?Z96.659 - Presence of unspecified artificial knee joint (ICD-10) H/O hysterectomy with oophorectomy History of cholecystectomy ?Z90.49 - Acquired absence of other specified parts of digestive tract (ICD- 10) Family History Mother Stroke Rheumatoid arthritis Brother Diabetes Coronary artery disease Father Pancreatic cancer Social History Narrative: patient lives independently with her significant other, Cirilo Chambers. She has a niece, Peg. Those 2 would be healthcare power of bankruptcy attorney. Code status is full. What is your current living situation?: I presently have a place to live Problems where you live: no known problems Problems where you live details: NA In the past 12 months, utilities in danger of being shut off: no In past 12 months, lack of transportation kept you from medical appts, meetings, work, or getting things needed for daily living: no In the past 12 mos, have been you worried that your food would run out before you had money to buy more?: never true In the past 12 mos, the food you bought just didn't last and you didn't have money to buy more?: never true Highest level of school completed/degree received: Associate degree: occupational, technical, vocational program Smoking Status: Never smoker Do you use any of these nicotine containing products: None Second hand tobacco smoke exposure: No How often do you have a drink containing alcohol: never How often do you have six or more drinks on one occasion: Never AUDIT-C Alcohol total score: 0 Non-prescribed substance use: denies use Caffeine: Yes How often does anyone, including family, friends and others, physically hurt you : never How often does anyone, including family, friends and others, insult or talk down to you: never How often does anyone, including family, friends and others, threaten you with harm: never How often does anyone, including family, friends and others, scream or curse at you: never Gender Identity: female Are you using contraception or practicing any form of control: No service: No Exam Narrative: Exam Narrative: Vital signs reviewed In general, alert, nontoxic elderly woman. Hard of hearing. Head: Normocephalic, atraumatic. Eyes: Sclera clear. Pupils equal and reactive. ENT: Mucous membranes are moist. Along her lower lip she has some bleeding, there is also bleeding along the gum line on the palatal side of her upper teeth. Neck: Supple without adenopathy. Heart: Regular rate and rhythm without murmur. Lungs: Clear. No increased work of breathing, crackles or wheezes. Abdomen: Soft, nontender to palpation. Extremities: Well perfused, pulses intact. No significant edema. Neurologic: Alert, conversant. Speech fluent, face symmetric. Moves all extremities equally. Skin: Warm, dry well perfused. Affect: Normal. Const: Vital Signs, click to edit/add: Vital Signs - 24 hr 06/21/24 16:24 06/21/24 18:35 06/21/24 19:00 Temperature 98.2 F Pulse Rate 84 82 Pulse Rate [Pulse Oximeter] 80 Respiratory Rate 18 14 16 Blood Pressure 135/38 L 128/43 L Blood Pressure [Ri ght Upper Arm] 112/68 Pulse Oximetry 98 100 Oxygen Delivery Me thod Room Air Room Air Course Course ED Course: Most of her labs were done in clinic, I did repeat a CBC here which [place] hemoglobin [place] 6[place] [address] a white blood cell count of 3. Case was reviewed with Hematology at [facility]. They recommended platelet transfusion as well as look of Renato which we do not have here. We also discussed doing a methotrexate level but I am not able to get that done here in a timely manner, a would apparently involve a special heel burnisher to take the blood to [address], and then at some point would be taken from there up to the [facility]. I think by the time we have that back patient will likely be at [facility] where they can do the test in house. She is hemodynamically stable here, she does not have complaints of lightheadedness or shortness of breath. Holding off on transfusion for the time being, will prioritize transfusing platelets. Patient is accepted at [facility] for transfer with a an 8 hour bed delay as of 6:30 p.m.. Vital Signs Vital signs: Initial Vital Signs Temperature 98.2 F 06/21/24 16:24 Temperature Source Temporal Artery Scan 06/21/24 16:24 Pulse Rate 80 06/21/24 16:24 Respiratory Rate 18 06/21/24 16:24 Blood Pressure 112/68 06/21/24 16:24 Blood Pressure Mean 82 06/21/24 16:24 Pulse Oximetry 98 06/21/24 16:24 Oxygen Delivery Method Room Air 06/21/24 16:24 Vital Signs Temperature 98.2 F 06/21/24 16:24 Pulse Rate 80 06/21/24 16:24 Respiratory Rate 18 06/21/24 16:24 Blood Pressure 112/68 06/21/24 16:24 Pulse Oximetry 98 06/21/24 16:24 Oxygen Delivery Method Room Air 06/21/24 16:24 Temperature 99.1 F 06/21/24 22:48 Pulse Rate 79 06/21/24 22:48 Respiratory Rate 16 06/21/24 22:48 Blood Pressure 146/48 H 06/21/24 22:48 Pulse Oximetry 99 06/21/24 22:48 Oxygen Delivery Method Room Air 06/21/24 22:48 Medical Decision Making Lab Data Labs: Lab Results 06/21/24 Range/Units 18:36 WBC 3.03 L (4.50-11.00) K/uL RBC 2.03 L (4.00-5.20) m/uL Hgb 6.8 L* (12.0-16.0) gm/dL Hct 20.4 L (33.0-51.0) % MCV 101 H (80-100) fL MCH 34 (26-34) pg MCHC 33 (32-36) gm/dL RDW Coeff of Randa 22.4 H (11.5-15.5) % Plt Count 19 L* (140-440) K/uL Neut % (Auto) 74.0 H (42.0-72.0) % Lymph % (Auto) 22.1 (20-44) % [place] % (Auto) 1.3 (0.0-11.0) % Eos % (Auto) 2.0 (0.0-7.0) % Baso % (Auto) 0.3 (0.0-3.0) % Neut # (Auto) 2.20 (1.7-7.0) K/uL Lymph # (Auto) 0.70 L (0.90-2.90) K/uL [place] # (Auto) 0.00 (0.00-0.90) K/UL Eos # (Auto) 0.10 (0.00-0.50) K/uL Baso # (Auto) 0.00 (0.00-0.30) K/uL Abs Immat Gran (auto) 0.00 (0.00-0.30) K/uL Imm/Tot Granulo (auto) 0.3 % Diff Slide Review Acceptable Review (Acceptable) INR 1.41 H (0.91-1.10) APTT 32 (23-33) Seconds Blood Type A Negative Antibody Screen NEGATIVE Discharge Plan Discharge Patient Disposition: Xfer Dhaval Petersen Prescriptions: No Action methenamine hippurate 1 gram tablet 1 g PO BID multivitamin [Multiple Vitamins] Tablet 1 tab PO QDAY aspirin [Adult Aspirin Regimen] 81 mg tablet,delayed release (DR/EC) 81 mg PO DAILY Magic Mouthwash (Lidocaine/Benadryl/Maalox) 120 mL suspension 5 ml PO Q4H PRNQty: 120 0RF Rx Instructions: Lidocaine Viscous 2 % mucosal solution 40 mL; Maalox 200 mg-200 mg-20 mg/5 mL oral suspension 40 mL; Benadryl 12.5 mg/5 mL oral elixir 40 mL; Per 120 mL SWISH AND SPIT. MAY COMPOUND IF FIRST PRODUCT IS NOT AVAILABLE. Eliquis 5 mg tablet 5 mg PO BID Qty: 60 0RF Rx Instructions: 10 mg twice daily for 7 days. Then 5 mg twice a day until follow up. calcium carbonate-vitamin D3 [Calcium 600 with Vitamin D3] 600 mg-12.5 mcg (500 unit) capsule 1 cap PO DAILY losartan 50 mg tablet 50 mg PO DAILY furosemide 20 mg tablet 20 mg PO BID alendronate 70 mg tablet 70 mg PO SILVA Patient Comments: TAKE 1 TABLET BY MOUTH EVERY 7 DAYS ON AN EMPTY STOMACH. REMAIN UPRIGHT FOR 30 MINUTES. TAKE WITH 8 OUNCES OF WATER acetaminophen [Acetaminophen Extra Strength] 500 mg tablet 1,000 mg PO Q6H PRN prednisone 1 mg tablet 2 mg PO DAILY benzocaine 20 % gel 1 applic MUCOUS MEMBRANE QID PRN Rx Instructions: Apply 0.5 g topically to affected area(s) 4 times daily if needed for Tooth Pain (for lip pain). Apply a thin layer to affected areas inside mouth up to 4 times daily. clotrimazole 1 % cream 1 applic TOPICAL BID Rx Instructions: Apply topically to affected area(s) two times daily. Stand Alone [facility]
[2024-06-21 21:23] LABS: Slide Review Acceptable Review (Acceptable)
== END 2024-06-21 22:55 | disposition short-term general hospital (02) ==
LOC: ED 18:18
PROVIDERS: Emergency Provider Emergency Medicine; PCP Family Medicine
DX: D61.818 Other pancytopenia (principal); Z79.899 Other long term (current) drug therapy
CPT/HCPCS: 36415; 36430; 85025; 85610; 85730; 86850; 86900; 86901; 99284; 99285; P9073

== ENCOUNTER 2024-06-21 22:43 | Outpatient (CLI) | payer MEDICARE, BC, SELFPAY | END 2024-06-21 22:44 | disposition home or self-care (01) | LOC: AMB 06-24 09:39 | PROVIDERS: PCP Family Medicine; Visit Provider Family Medicine | DX: D61.818 Other pancytopenia (principal) | CPT/HCPCS: A0425; A0427 ==

== ENCOUNTER 2024-07-14 06:26 | Outpatient (CLI) | payer MEDICARE, BC, SELFPAY | END 2024-07-14 06:27 | disposition home or self-care (01) | LOC: AMB 07-15 15:16 | PROVIDERS: PCP Family Medicine; Visit Provider Family Medicine | DX: R53.1 Weakness (principal); R50.9 Fever, unspecified | CPT/HCPCS: A0425; A0427 ==

== ENCOUNTER 2024-07-14 06:59 | Emergency (ER) | payer MEDICARE, BC, SELFPAY ==
[2024-07-14] VITALS (10 sets, daily range): BP systolic 113–184; BP diastolic 52–87; PULSE 93–109; RESP 11–26; TEMP 36.7–37.2; O2SAT 93–95
--- OUTSIDE RECORDS SUMMARY | 2024-07-14 07:02 | XMS_ITS | Continuity of Care Document ---
Author Organization [facility] Address [address] [place] [address] Phone Care Team Providers Care Jailor Name Role Phone Sharif Nunez MD Unavailable [...] Dates (start - stop) Status Comments prednisone 5 mg tablet take 1 tablet by oral route every day with 1 mg tabs as directed by taper instructions - Active Taper by 1 mg every 4 days starting at 9 mg prednisone 1 mg tablet TAKE 9mg daily x 4 days then 8mg daily x 4 days then 7 mg daily x 4 days then 6mg daily x 4 days then 5 mg daily until seen - Active Take along with 5 mg tabs Plaquenil 200 mg tablet 200mg bid every other day, 200mg once daily every other day - Active methenamine hippurate 1 gram tablet [...] Active Take in the morning with food methotrexate sodium 2.5 mg tablet take 6 Tablet by Oral route every week 15 MG - No Longer Active Procedures Procedure [...] Protein Dna Antibody, Single Strand Dna Antibody, [place] Nuclear Antigen Antibodies CCP Antibody Lyme Disease Antibody Rheumatoid Factor, IGM Rheumatoid Factor, IGG, IGA Vitamin D 25 Hydroxy Complete Cbc WAuto Diff Wbc Advance Directives Directive Yes / No Effective Date File Name No Information Encounters Encounter Description Practice Location Reason(s) For Visit Diagnoses Date Provider Providers Copied on Encounter [facility] , [address], [place], [address], [place] tel:[phone] [facility] , No Information 5 Mayra Olguin. [facility] [address], [place], [address], [place]. tel:[phone] Office/Outpa tient Visit, Est [facility] , [address], [place], [address], [place] tel:[phone] [facility] , Follow Up of Seropositive rheumatoid arthritis (chief complaint)Os teoporosis (chief complaint)Os teoarthritis (chief complaint) Rheumatoid arthritis with rheumatoid factor of multiple sites without organ or systems involvementA ge-related osteoporosis without current pathological fractureLong term (current) use of systemic steroidsOthe r group home (current) drug therapyCellu litis of left lower limb 4 Mayra Olguin. [facility] [address], [place], [address], [place]. tel:[phone] Referring Provider: Sharif Phipps, [facility] [address], [place], [address]. tel:[phone] Office/Outpa tient Visit, Est [facility] , [address], [place], [address], [place] tel:[phone] [facility] , Follow Up of Seropositive rheumatoid arthritis (chief complaint)Os teoporosis (chief complaint)Os teoarthritis (chief complaint) Rheumatoid arthritis with rheumatoid factor of multiple sites without organ or systems involvementA ge-related osteoporosis without current pathological fractureLong term (current) use of systemic steroidsOthe r group home (current) drug therapyCellu litis of left lower limb Sep-0 4 Mayra Olguin. [facility] [address], [place], [address], [place]. tel:[phone] Referring Provider: Sharif Phipps, [facility] [address], [place], [address]. tel:[phone] Office/Outpa tient Visit, Est [facility] , [address], [place], [address], [place] tel:[phone] [facility] , Follow Up of Seropositive rheumatoid arthritis (chief complaint)Os teoporosis (chief complaint)Os teoarthritis (chief complaint) Rheumatoid arthritis with rheumatoid factor of multiple sites without organ or systems involvementA ge-related osteoporosis without current pathological fractureLong term (current) use of systemic steroidsOthe r group home (current) drug therapyCellu litis of left lower limb Ozzy-0 4 Mayra Olguin. [facility] [address], [place], [address], [place]. tel:[phone] Referring Provider: Sharif Phipps [facility] [address], [place], [address]. tel:[phone] Office/Outpa tient Visit, Est [facility] , [address], [place], [address], [place] tel:[phone] [facility] , Follow Up of Seropositive rheumatoid arthritis (chief complaint)Os teoporosis (chief complaint)Os teoarthritis (chief complaint) Rheumatoid arthritis with rheumatoid factor of multiple sites without organ or systems involvementA ge-related osteoporosis without current pathological fractureLong term (current) use of systemic steroidsOthe r termite exterminator (current) drug therapyCellu litis of left lower limb 4 Mayra Olguin. [facility] [address], [place], [address], [place]. tel:[phone] Referring Provider: Sharif Phipps, [facility] [address], [place], [address]. tel:[phone] Office/Outpa tient Visit, Est [facility] , [address], [place], [address], [place] tel:[phone] [facility] , Follow Up of Seropositive rheumatoid arthritis (chief complaint)Os teoporosis (chief complaint)Os teoarthritis (chief complaint) Rheumatoid arthritis with rheumatoid factor of multiple sites without organ or systems involvementA ge-related osteoporosis without current pathological fractureLong term (current) use of systemic steroidsOthe r group home (current) drug therapyCellu litis of left lower limb 3 Mayra Olguin. [facility] [address], [place], [address], [place]. tel:[phone] Referring Provider: Sharif Phipps [facility] [address], [place], [address]. tel:[phone] Office/Outpa tient Visit, Est [facility] , [address], [place], [address], [place] tel:[phone] [facility] , Follow Up of Seropositive rheumatoid arthritis (chief complaint)Os teoporosis (chief complaint)Os teoarthritis (chief complaint) Rheumatoid arthritis with rheumatoid factor of multiple sites without organ or systems involvementO ther low back painAge-rela sheryl osteoporosis without current pathological fractureLong term (current) use of systemic steroidsOthe r termite exterminator (current) drug therapy 3 Mayra Olguin. [facility] [address], [place], [address], [place]. tel:[phone] Referring Provider: Sharif Phipps, [facility] [address], [place], [address]. tel:[phone] Office/Outpa tient Visit, Est [facility] , [address], [place], [address], [place] tel:[phone] [facility] , Follow Up of Seropositive rheumatoid arthritis (chief complaint)Os teoporosis (chief complaint)Os teoarthritis (chief complaint) Rheumatoid arthritis with rheumatoid factor of multiple sites without organ or systems involvementO ther low back painAge-rela sheryl osteoporosis without current pathological fractureLong term (current) use of systemic steroidsOthe r termite exterminator (current) drug therapy 3 Mayra Olguin. [facility] [address], [place], [address], [place]. tel:[phone] Referring Provider: Sharif Phipps, [facility] [address], [place], [address]. tel:[phone] Office/Outpa tient Visit, Est [facility] , [address], [place], [address], [place] tel:[phone] [facility] , Follow Up of Seropositive rheumatoid arthritis (chief complaint)Os teoporosis (chief complaint)Os teoarthritis (chief complaint) Rheumatoid arthritis with rheumatoid factor of multiple sites without organ or systems involvementO ther low back painAge-rela sheryl osteoporosis without current pathological fractureLong term (current) use of systemic steroidsOthe r group home (current) drug therapy 3 Mayra Olguin. [facility] [address], [place], [address], [place]. tel:[phone] Referring Provider: Sharif Phipps, [facility] [address], [place], [address]. tel:[phone] Office/Outpa tient Visit, Est [facility] , [address], [place], [address], [place] tel:[phone] [facility] , Follow Up of Seropositive rheumatoid arthritis (chief complaint)Os teoporosis (chief complaint)Os teoarthritis (chief complaint) Rheumatoid arthritis with rheumatoid factor of multiple sites without organ or systems involvementO ther low back painAge-rela sheryl osteoporosis without current pathological fractureLong term (current) use of systemic steroidsOthe r termite exterminator (current) drug therapy 2 Mayra Olguin. [facility] [address], [place], [address], [place]. tel:[phone] Referring Provider: Sharif Phipps, [facility] [address], [place], [address]. tel:[phone] Office/Outpa tient Visit, Est [facility] , [address], [place], [address], [place] tel:[phone] [facility] , Follow Up of Seropositive rheumatoid arthritis (chief complaint)Os teoporosis (chief complaint)Os teoarthritis (chief complaint) Rheumatoid arthritis with rheumatoid factor of multiple sites without organ or systems involvementO ther low back painAge-rela sheryl osteoporosis without current pathological fractureLong term (current) use of systemic steroidsOthe r termite exterminator (current) drug therapy Ozzy- 2 Mayra Mcdonald [facility] [address], [place], [address], [place]. tel:[phone] Referring Provider: Sharif Phipps, [facility] [address], [place], [address]. tel:[phone] Office/Outpa tient Visit, Est [facility] , [address], [place], [address], [place] tel:[phone] [facility] , Follow Up of Seropositive rheumatoid arthritis (chief complaint)Os teoporosis (chief complaint)Os teoarthritis (chief complaint) Rheumatoid arthritis with rheumatoid factor of multiple sites without organ or systems involvementA ge-related osteoporosis without current pathological fractureLong term (current) use of systemic steroidsOthe r termite exterminator (current) drug therapyOther low back pain May-0 2 Mayra Olguin. [facility] [address], [place], [address], [place]. tel:[phone] Referring Provider: Sharif Phipps, [facility] [address], [place], [address]. tel:[phone] Office/Outpa tient Visit, Est [facility] , [address], [place], [address], [place] tel:[phone] [facility] , Follow Up of Seropositive rheumatoid arthritis (chief complaint)Os teoporosis (chief complaint)Os teoarthritis (chief complaint) Rheumatoid arthritis with rheumatoid factor of multiple sites without organ or systems involvementH allucination Eric-related osteoporosis without current pathological fractureOthe r group home (current) drug therapyLong term (current) use of systemic steroids 1 Mayra Mcdonald [facility] [address], [place], [address], [place]. tel:[phone] Referring Provider: Sharif Phipps, [facility] [address], [place], [address]. tel:[phone] Office/Outpa tient Visit, Est [facility] , [address], [place], [address], [place] tel:[phone] [facility] , Follow Up of Seropositive rheumatoid arthritis (chief complaint)Os teoporosis (chief complaint)Os teoarthritis (chief complaint) Rheumatoid arthritis with rheumatoid factor of multiple sites without organ or systems involvementH allucination Eric-related osteoporosis without current pathological fractureOthe r group home (current) drug therapyLong term (current) use of systemic steroids Nov- 1 Mayra Mcdonald [facility] [address], [place], [address], [place]. tel:[phone] Referring Provider: Sharif Phipps, [facility] [address], [place], [address]. tel:[phone] Office/Outpa tient Visit, Est [facility] , [address], [place], [address], [place] tel:[phone] [facility] , Follow Up of Seropositive rheumatoid arthritis (chief complaint)Os teoporosis (chief complaint) Rheumatoid arthritis with rheumatoid factor of multiple sites without organ or systems involvementO ther group home (current) drug therapyLong term (current) use of systemic steroidsAge- related osteoporosis without current pathological fracture Apr- 1 Mayra Mcdonald [facility] [address], [place], [address], [place]. tel:[phone] Referring Provider: Sharif Phipps, [facility] [address], [place], [address]. [phone] Office/Outpa tient Visit, Est [facility] , [address], [place], [address], [place] tel:[phone] [facility] , Follow Up of Seropositive rheumatoid arthritis (chief complaint) Rheumatoid arthritis with rheumatoid factor of multiple sites without organ or systems involvementA bnormal weight lossAge-rela sheryl osteoporosis without current pathological fractureOthe r group home (current) drug therapyLong term (current) use of systemic steroids 1 Mayra Mcdonald [facility] [address], [place], [address], [place]. [phone] Referring Provider: Sharif Phipps, [facility] [address], [place], [address]. tel:[phone] Office/Outpa tient Visit, Est [facility] , [address], [place], [address], [place] tel:[phone] [facility] , Follow Up of Seropositive rheumatoid arthritis (chief complaint) Rheumatoid arthritis with rheumatoid factor of multiple sites without organ or systems involvementO ther termite exterminator (current) drug therapyLong term (current) use of systemic steroids 0 Mayra Mcdonald [facility] [address], [place], [address], [place]. tel:[phone] Referring Provider: Sharif Phipps, [facility] [address], [place], [address]. tel:[phone] Office/Outpa tient Visit, Est [facility] , [address], [place], [address], [place] tel:[phone] [facility] , Follow Up of seropositive rheumatoid arthritis (chief complaint) Rheu arthritis w rheu factor mult site w/o org/sys involvAge-re lated osteoporosis w/o current pathological fractureOthe r group home (current) drug therapyLong term (current) use of systemic steroids 0 Mayra Mcdonald [facility] [address], [place], [address], [place]. tel:[phone] Referring Provider: Sharif Phipps, [facility] [address], [place], [address]. tel:[phone] Office/Outpa tient Visit, Est [facility] , [address], [place], [address], [place] tel:[phone] [facility] , Follow Up of seropositive rheumatoid arthritis (chief complaint) Rheu arthritis w rheu factor mult site w/o org/sys involvPrimar y generalized (osteo)arthr itisAge-rela sheryl osteoporosis w/o current pathological fractureOthe r group home (current) drug therapyLong term (current) use of systemic steroids 0 Mayra Mcdonald [facility] [address], [place], [address], [place]. tel:[phone] Referring Provider: Sharif Phipps, [facility] [address], [place], [address]. tel:[phone] Phone E/M By Phys 11-20 Min [facility] , [address], [place], [address], [place] tel:[phone] Telehealth Follow Up of seropositive rheumatoid arthritis (chief complaint)os teoarthritis (chief complaint) Rheu arthritis w rheu factor mult site w/o org/sys involvPrimar y generalized (osteo)arthr itisOther termite exterminator (current) drug therapy 0 Mayra Olguin. [facility] [address], [place], [address], [place]. tel:[phone] Referring Provider: Sharif Phipps, [facility] [address], [place], [address]. tel:[phone] Office/Outpa tient Visit, Est [facility] , [address], [place], [address], [place] tel:[phone] [facility] , Follow Up of seropositive rheumatoid arthritis (chief complaint) Rheu arthritis w rheu factor mult site w/o org/sys involvCarpal tunnel syndrome, right upper limbAbnormal weight lossOther termite exterminator (current) drug therapyLong term (current) use of systemic steroids 0 Mayra Olguin. [facility] [address], [place], [address], [place]. tel:[phone] Referring Provider: Sharif Phipps, [facility] [address], [place], [address]. tel:[phone] Office/Outpa tient Visit, Est [facility] , [address], [place], [address], [place] tel:[phone] [facility] , Follow Up of seropositive rheumatoid arthritis (chief complaint) Rheu arthritis w rheu factor mult site w/o org/sys involvCarpal tunnel syndrome of right armPain in right shoulderOthe r termite exterminator (current) drug therapyLong term (current) use of systemic steroids 9 Mayra Olguin. [facility] [address], [place], [address], [place]. tel:[phone] Referring Provider: Sharif Phipps, [facility] [address], [place], [address]. tel:[phone] Office/Outpa tient Visit, Est [facility] , [address], [place], [address], [place] tel:[phone] [facility] , Follow Up of seropositive rheumatoid arthritis (chief complaint) Rheu arthritis w rheu factor mult site w/o org/sys involvOther group home (current) drug therapyLong term (current) use of systemic steroids Mayra Olguin. [facility] [address], [place], [address], [place]. tel:[phone] Referring Provider: Sharif Phipps, [facility] [address], [place], [address]. tel:[phone] Office/Outpa tient Visit, Est [facility] , [address], [place], [address], [place] tel:[phone] [facility] , Follow Up of seropositive rheumatoid arthritis (chief complaint) Rheu arthritis w rheu factor mult site w/o org/sys involvOther group home (current) drug therapyLong term (current) use of systemic steroids Mayra Olguin. [facility] [address], [place], [address], [place]. tel:[phone] Referring Provider: Sharif Phipps, [facility] [address], [place], [address]. tel:[phone] Office/Outpa tient Visit, Est [facility] , [address], [place], [address], [place] tel:[phone] [facility] , Follow Up of seropositive rheumatoid arthritis (chief complaint) Rheu arthritis w rheu factor mult site w/o org/sys involvDry eye syndrome of bilateral lacrimal glandsXerost omiaNasal congestionPr uritusOsteop orosisOther group home (current) drug therapyLong term (current) use of systemic steroids Mayra Olguin. [facility] [address], [place], [address], [place]. tel:[phone] Referring Provider: Sharif Phipps, [facility] [address], [place], [address]. tel:[phone] Office/Outpa tient Visit, Est [facility] , [address], [place], [address], [place] tel:[phone] [facility] , Follow Up of seropositive rheumatoid arthritis (chief complaint) Rheu arthritis w rheu factor mult site w/o org/sys involvConjun ctivitisAge- related osteoporosis w/o current pathological fractureOthe r group home (current) drug therapyLong term (current) use of systemic steroids Mayra Olguin. [facility] [address], [place], [address], [place]. tel:[phone] Referring Provider: Sharif Phipps, [facility] [address], [place], [address]. tel:[phone] Office/Outpa tient Visit, Est [facility] , [address], [place], [address], [place] tel:[phone] [facility] , Follow Up of seropositive rheumatoid arthritis (chief complaint) Seropositive RA of multiple sites w/o organ involvementP ain in left kneeAge-rela sheryl osteoporosis w/o current pathological fractureOthe r group home (current) drug therapy 8 Mayra Olguin. [facility] [address], [place], [address], [place]. tel:[phone] Referring Provider: Sharif Phipps, [facility] [address], [place], [address]. tel:[phone] Office/Outpa tient Visit, New [facility] , [address], [place], [address], [place] tel:[phone] [facility] , Inflammatory Polyarthropa thy (chief complaint) Inflammatory polyarthropa thyAge-relat ed osteoporosis w/o current pathological fracturePrim gutierrez generalized osteoarthrit isType 2 diabetes mellitus without complication sLong term use of systemic steroids 8 Mayra Olguin. [facility] [address], [place], [address], [place]. tel:[phone] Referring Provider: Sharif Phipps, [facility] [address], [place], [address]. tel:[phone] [facility] , [address], [place], [address], [place] tel:[phone] [facility] , No Information 8 Mayra Olguin. [facility] [address], [place], [address], [place]. tel:[phone] Family History Family Member Type Diagnosis Age At Onset Son Problem (finding) stroke Mother Problem (finding) Arthritis Immunizations Vaccine Date Status Comments COVID-19 Piloa administered Source: Oth er Provider COVID-19 Moderna administered Source: Oth er Provider COVID-19 Moderna administered Source: Oth er Provider Payers Payer name Insurance type Covered democrat ID Authoriza tiryann(s) [employer] Medicare Advantage/Plat inum Blue BL [id number] Social History Type Description Quantity Date Captured Comments Sex Female Smoking Status No Information Chief Complaint And Reason For Visit No [...] No Information Instructions Date Instruction Additional Infor mation He initially had a c ellulitis of [...] I am not receiving 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 Related to termite exterminator (current) use of systemic steroids This is managed at h primary clinic. For this and multiple other reasons I still would like to taper her off of the prednisone if possible although that has been difficult. Related to Age-related osteoporosis without current pathological fracture Although she feels w ell from an [...] involvement This is managed at her primary [facility]. Related to Age-related osteoporosis without current pathological fracture See discussion above regarding the prednisone. Related to alf (current) use of systemic steroids She will have routin e laboratories today for monitoring medications and disease. I believe she had a Plaquenil eye exam in September although I do not have a report of that. Related to Other group home (current) drug therapy This is an [...] involvement This is managed at her primary [facility]. Related to Age-related osteoporosis without current pathological fracture At this point, I do not feel like it is urgent to taper this very low-dose of prednisone despite her history of osteoporosis. She simply does not do well with lower dose. Related to alf (current) use of systemic steroids Although she [...] exam scheduled next month. 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 Related to termite exterminator (current) use of systemic steroids This is followed at her primary clinic. [...] medications and disease. 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 Related to alf (current) use of systemic steroids She had a recent ivory lulitis involving the left lower leg. 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 I recommended [...] prednisone dose as tolerated. 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 Related to alf (current) use of systemic steroids She will have routin e laboratories today for monitoring medications and disease. Related to Other group home (current) drug therapy She may be a [...] monitoring medications and disease. Related to Other group home (current) drug therapy See discussion above regarding very slow taper of her prednisone dose. Related to termite exterminator (current) use of systemic steroids Her rheumatoid [...] medications and disease. Related to Other termite exterminator (current) drug therapy This is not a [...] of her prednisone dose. Related to termite exterminator (current) use of systemic steroids See discussion above regarding very slow taper of her prednisone dose. Related to alf (current) use of systemic steroids She will have routin e laboratories today for monitoring medications and disease. Related to Other group home (current) drug therapy She is doing well wi th her rheumatoid arthritis on her current regimen. We agreed that she would decrease her prednisone dose further to 1 mg daily and stay on that dose until I see her next in 3 months. Related to Rheumatoid arthritis with rheumatoid factor of multiple sites without organ or systems involvement Her last bone densit y test was on 10/11/2020. At that time, her Fosamax dose was increased to 70 mg weekly. Related to Age-related osteoporosis without current pathological fracture She has made some pr ogress with her low back pain since I last saw her. I encouraged her to continue the exercises that she has learned in physical therapy. Related to Other low back pain See discussion above . Treatment of this [...] medications and disease. 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 Related to Other group home (current) drug therapy Her last bone densit y test was in September 2018. She had a follow-up bone density test in September through her primary clinic. She has increased her Fosamax dose to 70 mg weekly. Related to Age-related osteoporosis without current pathological fracture See discussion above regarding the prednisone. 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 Her last Plaquenil eye exam was on approximately 06/15/2020. I did encourage her to proceed with the COVID-19 vaccine booster (Moderna) when she can. She will need to hold methotrexate for 1 week after the booster vaccine. 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 Related to Other group home (current) drug therapy Although she is [...] medications and disease. 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 I will keep an eye on this. I cannot completely rule out the possibility that methotrexate is playing a role in her decreased appetite. Related to Abnormal weight loss She is asymptomatic currently from her rheumatoid arthritis. I recommended no change in her methotrexate dose but decreasing her prednisone dose from 2 mg daily to 1 mg daily. She will stay also on her same dose of Plaquenil. Related to Rheumatoid arthritis with rheumatoid factor of multiple sites without organ or systems involvement She has a history of osteoporosis. I will try to minimize her prednisone dose. I am not sure when her last DEXA scan was. Related to Age-related osteoporosis without current pathological fracture She will have routin e laboratories today for monitoring medications and disease. Related to Other group home (current) drug therapy Her rheumatoid arthr [...] systems involvement See discussion above. Related to alf (current) use of systemic steroids She will have routin e laboratories today for monitoring medications and disease. 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 Related to Other group home (current) drug therapy It is difficult for me to say, via phone consultation, how much of her recent increase in symptoms was related to rheumatoid arthritis versus osteoarthritis. Nevertheless, she is feeling better again now on her combination of low-dose prednisone, still low-dose although increased methotrexate, and full dose Plaquenil along with a very low dose of [id number]-[id number] ibuprofen. I did not recommend any change in her current regimen for now. Hopefully I can see her in person in 3 months. Related to Rheu arthritis w rheu factor mult site w/o org/sys involv See discussion above regarding tapering the prednisone. Related to alf (current) use of systemic steroids She continues to los e weight. She weighed 170 pounds when I first saw her in December 2017. I will keep an eye and this but there are no other indicators to suggest a malignancy. This may simply be due to the fact that she has been able to taper her prednisone substantially since I first saw her. Related to Abnormal weight loss The carpal tunnel sy ndrome in her right hand resolved with the resolution of the swelling in that right wrist related to her rheumatoid arthritis. Related to Carpal tunnel syndrome, right upper limb Her rheumatoid arthr itis has responded very [...] medications and disease. 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 Related to alf (current) use of systemic steroids She will have routin e laboratories today for monitoring medications and disease. Her last Plaquenil eye exam was in September 2018. 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 Related to alf (current) use of systemic steroids She will have routin e laboratories today for monitoring medications and disease. Related to Other group home (current) drug therapy If anything, she is doing slightly better [...] arthritis w rheu factor mult site w/o [employer] involv She likely does have osteoporosis. She is scheduled for bone densitometry at the end of September. She plans to have results of that forwarded to me. Related to alf (current) use of systemic steroids She has [...] monitoring medications and disease. Related to Other group home (current) drug therapy She will have routin e laboratories today for monitoring medications and disease. Related to Other group home (current) drug therapy See discussion above regarding the prednisone. Related to alf (current) use of systemic steroids She likely has osteo porosis in the setting of use of significant doses of prednisone for approximately 4 years now. I recommended that she have bone densitometry done. She will like to have this done close to home. She will call her primary physician for recommendations for where to have that done. Related to Osteoporosis See discussion above . I recommended followup with her primary physician regarding this issue. It's possible that she might benefit from a saline nasal spray such as [employer] [place]. Related to Nasal congestion If this is [...] eyes and dry mouth. These will include ndur-zvn-iwwvinj preservative-free artificial tears (I gave her specific [...] taper of her prednisone dose. Related to alf (current) use of systemic steroids She will have routin e laboratories today for monitoring medications and disease. Related to Other group home (current) drug therapy As was noted at [...] I would like her to see an tree fruit and nut crops farmer to make sure that she does not have any rheumatoid-related inflammatory eye disease as the cause of this recent redness. I don't think this is a side effect of the Plaquenil. Related to Conjunctivitis See discussion above regarding the Plaquenil eye exam. 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 Related to alf use of systemic steroids She has a diagnosis of type 2 diabetes but, as far as I can tell from her history, this has been fairly recent. She is not on treatment for this. I think it's unlikely that this has contributed to her musculoskeletal symptoms. Related to Type 2 diabetes mellitus without complications She has some finding s of generalized [...]
--- OUTSIDE RECORDS SUMMARY | 2024-07-14 07:03 | XMS_ITS | Clinical Summary ---
Author Organization [facility] Address [address] [place] [id number] Care Team Providers Care Manager Multicultural Name Role Phone Beto Taylor FOOT ORTHOPEDIST Unavailable [phone] Sharif Nunez MD Unavailable [phone] Riley Camacho MD Unavailable [phone] Constanza Cardozo MD Primary Care Provider [phone] Inga Caballero MD Unavailable [phone] Allergies Active Allergy Reactions Criticality Noted Date Comments Blood-Group Specific Substance Other - Describe In Comment Field 06/27/2024 Patient has an Anti-D antibody. Blood products may be delayed. Draw patient 24 hours prior to transfusion. For [facility] testing, draw one red top and two purple top tubes for all Type and Screen orders. Clonidine Hallucinations 05/03/2018 Doxycycline Atopic Dermatitis Medium 05/06/2024 Significant lip blistering/ pain Hydrocodone Vomiting 04/30/2024 Leflunomide Hallucinations 12/21/2017 Lisinopril *Unknown 05/23/2018 Increased creatinine Methotrexate *Unknown 12/21/2017 Did not feel well Opioids - Morphine Analogues Vomiting 07/13/2022 Oxycodone Vomiting,*Unknown 08/11/2011 No reaction listed in [facility] Sulfa (Sulfonamide Antibiotics) *Unknown 12/03/2015 On clinic list No reaction listed in [facility] Hydrocodone-Acetamino phen Vomiting 10/25/2014 Medications CALCIUM CARBONATE/VITAMI N D2 (CALCIUM + VITAMIN D ORAL) Take 1 tablet by mouth once daily. 010 Active multivitamin-min erals therapeutic tablet Take 1 tablet by mouth once daily. Active acetaminophen (TYLENOL EXTRA STRENGTH) 500 mg tabletIndication s:pain Take 2 tablets by mouth every 6 hours if needed. Max acetaminophen dose: 4000mg in 24 hrs. 0 018 Active Catheter 14 FrIndications:Ur inary retention Coloplast Speedie Cath 6 times each day as directed 180 Each 023 Active alendronate (FOSAMAX) 70 mg tabletIndication s:Age related osteoporosis, unspecified pathological fracture presence Take 1 Tablet (70 mg) by mouth once a week in the morning. Take on empty stomach with full glass of water. Do not lie down for 1 hr. 12 Tablet 3 024 Active furosemide (LASIX) 20 mg tabletIndication s:Bilateral lower extremity edema Take 1 Tablet (20 mg) by mouth two times daily. 200 Tablet 3 024 Active losartan (COZAAR) 50 mg tabletIndication s:HTN (hypertension) Take 1 Tablet (50 mg) by mouth once daily. 100 Tablet 3 024 Active benzocaine, dental, (AMERICAINE; ANBESOL; ORAJEL) 20 % mucosal gelIndications:I nflammation of lips Apply 0.5 g topically to affected area(s) 4 times daily if needed for Tooth Pain (for lip pain). Apply a thin layer to affected areas inside mouth up to 4 times daily. 9 g 025 Active lidocaine (viscous) 2% 2 % solutionIndicati ons:Mucositis Swish and spit 5 mL by mouth every 4 hours if needed for Stomatitis. Magic mouth wash - Lidocaine / Benadryl / Maalox 100 mL 2 025 Active magic mouthwash 1:1:1 (diphen 12.5mg/5mL-lidoc kim 2%-maalox [phone]/5ml ) oral suspension Swish and spit 5-10 mL by mouth 4 times daily if needed. Suspension is a 1:1:1 ratio of benadryl 12.5 mg/5mL,viscous lido 2%,Maalox 200mg-20mg/5mL Active gabapentin 100 mg capsuleIndicatio ns:Left lumbar radiculopathy Take 1 Capsule (100 mg) by mouth three times daily. 90 Capsule 1 5 10:51 AM CDT 025 Active lidocaine 4 % topical patchIndications :Left lumbar radiculopathy Apply to intact skin to cover most painful area for max 12hr per 24hr period. 30 Patch 1 5 10:51 AM CDT 025 Active Additional Information Patient taking differently: Apply to intact skin to cover most painful area for max 12hr per 24hr period.not taking, Reported on 07/11/2024 methocarbamoL 500 mg tabletIndication s:Left lumbar radiculopathy Take 1 Tablet (500 mg) by mouth three times daily. 90 Tablet 1 5 10:51 AM CDT 025 Active morphine 10 mg/5 mL (2 mg/mL) solutionIndicati ons:Mucositis Swish and spit 1 mL (2 mg) by mouth every 3 hours if needed (mucositis). 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 30 mL 5 12:44 PM CDT 025 Active apixaban 5 mg tabletIndication s:Acute deep vein thrombosis (DVT) of femoral vein of left lower extremity (HC) Take 1 Tablet (5 mg) by mouth two times daily. 180 Tablet 025 Active aspirin (ECOTRIN) 81 mg enteric coated tablet Take 1 Tablet (81 mg) by mouth once daily with a meal. 0 022 2024 Discontinued (Pharmacist change per medication history (E-cancel not sent)) methenamine hippurate (HIPREX) 1 gram tabletIndication s:Recurrent UTI (urinary tract infection) Take 1 Tablet (1 g) by mouth two times daily. 180 Tablet 1 024 2024 Discontinued (*Med complete/Reg imen complete/Lev el of care change) clotrimazole (LOTRIMIN) 1 % creamIndications :Yeast dermatitis Apply topically to affected area(s) two times daily. 45 g 1 024 2024 Discontinued (Pharmacist change per medication history (E-cancel not sent)) predniSONE (DELTASONE) 1 mg tablet Take 2 mg by mouth once daily with a meal. Take 2 mg by mouth daily 2024 Discontinued (Pharmacist change per medication history (E-cancel not sent)) lidocaine, viscous, 2% (XYLOCAINE) 2 % solution Swish and spit 5 mL by mouth every 4 hours if needed. Magic mouth wash - Lidocaine / Benadryl / Maalox 2024 Discontinued (Reorder (E-cancel not sent)) gentamicin 0.1 % ointment Apply topically to affected area(s). 025 2024 Discontinued (Pharmacist change per medication history (E-cancel not sent)) apixaban 5 mg tablet Take 5 mg by mouth two times daily. 025 2024 Discontinued (Duplicate therapy (E-cancel not sent)) cephalexin 500 mg capsule Take 500 mg by mouth three times daily. 025 2024 Discontinued (Pharmacist change per medication history (E-cancel not sent)) methotrexate 2.5 mg tablet Take 15 mg by mouth once weekly. 2024 Discontinued (*IP Discontinued ) predniSONE 10 mg tabletIndication s:Rheumatoid arthritis involving multiple sites with positive rheumatoid factor (HC) Take 1 Tablet (10 mg) by mouth once daily with a meal. 30 Tablet 025 2024 Discontinued (*IP Discontinued ) HYDROmorphone 2 mg tabletIndication s:Left lumbar radiculopathy,Rh eumatoid arthritis involving multiple sites with positive rheumatoid factor (HC) Take 0.5-1 Tablets (1-2 mg) by mouth every 4 hours if needed for Pain. 20 Tablet 025 2024 Discontinued (*IP Discontinued ) Active Problems Problem Noted Date Diagnosed Date Pancytopenia 06/22/2024 Deep vein thrombosis (DVT) of left lower extremi ty 06/22/2024 Transaminitis 06/22/2024 Cellulitis of left lower extremity 06/22/2024 Mass of right breast 05/19/2024 Overview (05/19/2024): 1.5 cm seen on chest CT 05/15/24. Recommended diagnostic mammo White coat syndrome with hypertension 02/13/2023 Age-related osteoporosis wit hout current pathological fracture 10/11/2022 Overview (10/11/2022): - Fosamax started 10/16/2018 for osteopenia with elevated hip fracture risk. 35 mg weekly d/t ckd - Endo E-consult at [place] 10/09/2020 with recommendation to continue fosamax for [...] She has hearing aids ([facility] in [place]). Obesity with body mass index 30 or greater 12/21 Arthritis, rheumatoid 08/17/2017 Overview (10/08/2021): RA Sees Dr. Nunez at [facility] [phone] fax [phone] Last Assessment & Plan: I went over [...] & Plan: She is here today because [facility] [employer] will not supply her with 6 catheters /day. They told her that medicare would only cover 4 catheters/day. She only has 10 catheters left and needs a supply. I contacted Verónica Escalante DIRECT SUPPORT PROFESSIONAL [place] [facility]. She sees her on a routine basis. She will provide Vanessa with enough catheters to get by until her order from [facility] is delivered. She will drive to [place] to package pick up the catheters. I had sent Dr. Lopez's order and visit note to [facility] in [place]. Renay Renee will process the order and [...] Encounters Date Type Department Care Team Description 07/11/2024 1:30 PM CDT Office Visit [facility] [address] [place] [address] Constanza Cardozo MD Follow Up (Left leg wound ) 07/11/2024 Travel 07/09/2024 10:15 AM CDT Office Visit [facility] [address] [place] [address] Jamila Mckeon, FINESSE Follow Up (Pancytopenia) 07/09/2024 9:12 AM CDT - 07/09/2024 11:59 PM CDT Hospital Encounter [facility] [address] [place] [address] Pancytopenia (HC); Anemia, unspecified type 07/09/2024 Orders Only [facility] [address] [facility] [place] [address] Jamila Mckeon, DIRECT SUPPORT PROFESSIONAL <No scans attached> 07/09/2024 Travel 07/04/2024 12:40 PM CDT Office Visit [facility] [address] [facility] [place] [address] Constanza Cardozo MD Hospital F/U (Pancytopenia/-07/01/24) 07/03/2024 10:30 AM CDT - 07/03/2024 11:59 PM CDT Hospital Encounter [facility] [address] [facility] [place] [address] Pancytopenia (HC) 07/03/2024 Telephone [facility] [address] [place] [address] Constanza Cardozo MD Questions (Verbal Orders) 07/03/2024 Travel 07/02/2024 Orders Only [facility] [address] [facility] [place] [id number] Jamila Mckeon, DIRECT SUPPORT PROFESSIONAL <No scans attached> 07/02/2024 Patient Outreach [facility] [address] [place] [address] Lisa Maldonado, RN Primary RN Care Management; Hospital F/U (LACE 63) 06/21/2024 11:58 PM CDT - 07/01/2024 1:59 PM CDT Hospital Encounter [facility] [address] [place] [address] [facility] Hospitalists Of Rosie Joshi MD [place], MD Rashel Nix, Nidhi Cooper MD Left lumbar radiculopathy (Primary Dx); Rheumatoid arthritis involving multiple sites with positive rheumatoid factor (HC); Methotrexate toxicity, accidental or unintentional, initial encounter; Mucositis Discharge Disposition: Home Health 06/21/2024 1:30 PM CDT Orders Only [facility] [address] [place] [address] Lab, [place] Lab 06/21/2024 Telephone [facility] [address] [place] [address] Constanza Cardozo MD Error-please disregard 06/21/2024 Telephone [facility] [address] [place] [address] Jamila Mckeon, DIRECT SUPPORT PROFESSIONAL Appointment 06/21/2024 Travel 06/21/2024 Refill [facility] [address] [place] [address] Constanza Cardozo MD Refill Request (Eliquis) 06/19/2024 Refill [facility] [address] [place] [address] Constanza Cardozo MD Refill Request (lidocaine, viscous, 2% (XYLOCAINE) 2 % solution/) 06/17/2024 Patient Outreach [facility] Care Management - Advanced Care Team [address] [place] [address] Jamila Dempsey Medication Management (COMPREHENSIVE MEDICATION REVIEW - PROVIDER REFERRAL - unsure if covered) 06/13/2024 12:40 PM CDT Office Visit [facility] [address] [place] [address] Constanza Cardozo MD Hospital F/U (06/11 Er) 06/13/2024 Travel 06/04/2024 Travel 05/31/2024 Orders Only [facility] [place] [address] Constanza Cardozo MD Lab (CBC with differential ) 05/30/2024 Orders Only [facility] HIM [facility] Scanner 1 scan: (1-Ord) [facility], 05/30/2024 05/30/2024 Nurse Triage [facility] [address] [place] [address] Constanza Cardozo MD Leg Pain/problem 05/27/2024 10:49 AM REINFORCING STEEL MACHINE OPERATOR - 05/27/2024 11:59 PM REINFORCING STEEL MACHINE OPERATOR Hospital Encounter [facility] [address] [facility] [place] [address] Pancytopenia (HC) 05/27/2024 10:15 AM REINFORCING STEEL MACHINE OPERATOR Office Visit [facility] [address] [facility] [place] [address] Jamila Mckeon, DIRECT SUPPORT PROFESSIONAL Consult 05/27/2024 Travel 05/23/2024 Orders Only [facility] Scanner 1 scan: (1-Ord) INCOMING RECORDS-CT, [facility], 05/23/2024 05/23/2024 Orders Only [facility] Scanner 1 scan: (1-Ord) INCOMING RECORDS-LABS, [facility], 05/23/2024 05/21/2024 Telephone [facility] Cancer [place] [address] [address] [facility] [place] [address] Jamila Mckeon, DIRECT SUPPORT PROFESSIONAL Appointment 05/20/2024 11:15 AM REINFORCING STEEL MACHINE OPERATOR Office Visit [facility] [address] [facility] [place] [address] Riley Marquis MD Hospital F/U ([place], 05/13/24, mucositis) 05/20/2024 Travel 05/17/2024 Telephone [facility] [address] [place] [address] Constanza Cardozo MD Error-please disregard 05/14/2024 Orders Only [facility] Scanner 1 scan: (1-Ord) [facility], MULTIPLE LABS, 05/14/2024 05/14/2024 Orders Only [facility] HIM SERVICES Scanner 1 scan: (1-Ord) [place], CT CHEST W CON, 05/14/2024 05/14/2024 Orders Only [facility] Scanner 1 scan: (1-Ord) [facility], XR CHEST 2V, 05/14/2024 05/14/2024 Lab Requisition [facility] C[facility]TR[facility] [phone] Ebony Lee MD 05/06/2024 1:25 PM REINFORCING STEEL MACHINE OPERATOR Office Visit [facility] [address] [facility] [place] [address] Riley Marquis MD Follow Up (oral sores- mouthwash does not seem to help ) 05/06/2024 Travel 05/06/2024 Nurse Triage [facility] [address] [facility] [place] [address] Constanza Cardozo MD Mouth Problem from Last 3 Months Immunizations Immunization Administration Dates Next Due COVID-19 VACCINE COMIRNATY (eBuddy-BIONTECH 30MCG/0.3ML) 12YO+ PFS 02/13/2024 COVID-19 VACCINE SPIKEVAX (M ODERNA 50MCG/0.5ML) 12YO+ PFS 02/13/2023 COVID-19 vaccine (Moderna 100mcg/0.5mL) PF, MDV 08/25/2021,02/23/2021,08/03/2020,2020 COVID-19 vaccine (Consano-Bio NTech 30mcg/0.3mL) 12YO+ BIVALENT PF, MDV 01/04/2022 [...] or isolated from those around you? 0 06/24/2024 Financial Resource Strain Answer Date R ecorded Difficulty of Paying Living Expenses 3 02/06/2024 Difficulty of Paying Living Expenses Not on file 02/06/2024 Food Insecurity Answer Date Recorded Do you worry your food will run out before you are able to buy more? 1 06/24/2024 Transportation Needs Answer Date Record ed Does lack of transportation keep you from medica l appointments? 1 06/24/2024 Does lack of transportation keep you from work, meetings or getting things that you need? 1 06/24/2024 Housing Stability Answer Date Recorded What is your housing situation today? 1 06/24/2024 Interpersonal Safety Answer Date Record ed Are you being hit, kicked, p ushed or yelled at (see row info)? No 06/24/2024 Interpersonal Safety Abuse 12 - 18 Not on file 06/24/2024 Interpersonal Safety Ambulatory Vulnerability No t on file 06/24/2024 Utilities Answer Date Recorded Do you have trouble paying f or utilities (for example, heat, electricity, water, phone)? 1 06/24/2024 Comments No Sex and Gender Information Value Date Recorded Sex Assigned at Not on file Legal Sex Female 3:06 PM REINFORCING STEEL MACHINE OPERATOR Gender Identity Not on file Sexual Orientation Not on file Obstetrics History Last Filed Vital Signs Vital Sign Reading Time Taken Comments Blood Pressure 156/67 07/11/2024 1:36 PM CDT Pulse 78 07/11/2024 1:36 PM CDT Temperature 36.6 C (97.9 F) 07/09/2024 10:09 AM CDT Respiratory Rate 16 07/09/2024 10:09 AM CDT Oxygen Saturation 96% 07/11/2024 1:36 PM CDT Inhaled Oxygen Concentration - - Weight 61.7 kg (136 lb) 07/11/2024 1:36 PM CDT Height 155.4 cm (5' 1.18) 05/27/2024 10:[address] Body Mass Index 25.55 05/27/2024 10:06 AM REINFORCING STEEL MACHINE OPERATOR Plan of Treatment Upcoming Encounters Date Type Department Care Team (Late st Contact Info) Description 07/23/2024 12:[address] [facility] [address] [place] [address] 08/06/2024 11:15 AM CDT Orders Only [facility] [address] [facility] [place] [address] Lab, [place] 08/08/2024 3:00 PM CDT Office Visit [facility] [address] [facility] [place] [address] Eliseo Dias MD [address] [address] 08/20/2024 12:45 PM CDT Orders Only [facility] [address] [facility] [place] [address] Lab, [place] 09/03/2024 12:45 PM CDT Orders Only [facility] [address] [place] [address] Lab[place] 09/16/2024 12:45 PM CDT Orders Only [facility] [address] [place] [address] Lab, [place] 09/18/2024 12:45 PM CDT Office Visit [facility] [place] [facility] [address] [place] [address] Jamila Mckeon, DIRECT SUPPORT PROFESSIONAL [address] [place] [address] 04/03/2025 2:15 PM REINFORCING STEEL MACHINE OPERATOR Office Visit [facility] [address] [address] [place] [address] [place] [address] Health Maintenance Due Date Last Done Comments [...] history exists Medical Devices Implanted Type Area Range Manager Device Identifier Shelf Expiration Date Model / Serial / Lot Lead Bladder 28cm Interstim Tined 3mm Spacing - [id number] Implanted:Qty: 1 on 05/04/2016 by Cesar Groves MD at [facility] N/A: Sacrum [employer] 04/25/2020 3889-28# / / [id number] Stimulator 7.7mm 14cc Interstim Ii - [id number] Implanted:Qty: 1 on 05/11/2016 by Cesar Groves MD at [facility] N/A: Sacrum [employer] Pain Therapy 10/07/2017 3058# / / [id number] Cmnt Bone 40g Simplex P Non Atb Mv - [id number] Implanted:Qty: 2 on 07/12/2017 by Ignacio Mead MD at [facility] Right: Knee [employer] 04/26/2018 6191-1-010 # / / [id number] Cmnt Bone 40g Simplex P Non Atb Mv - [id number] Implanted:Qty: 1 on 07/12/2017 by Ignacio Mead MD at [facility] Right: Knee [employer] 04/26/2018 6191-1-010 # / / [id number] K0547-L-945 - [id number] Implanted:Qty: 1 on 07/12/2017 by Ignacio Mead MD at [facility] Right: Knee [employer] 04/27/2022 5551-G-350 / / [id number] Description:Triathlon X3 Asy mmetric patella L3342-B-079 - [id number] Implanted:Qty: 1 on 07/12/2017 by Ignacio Mead MD at [facility] Right: Knee [employer] 03/11/2022 5520-B-500 / / [id number] Description:Triathlon primar y tibial baseplate A7821-L-423 - [id number] Implanted:Qty: 1 on 07/12/2017 by Ignacio Mead MD at [facility] Right: Knee [employer] 05/21/2021 5510-F-502 / / [id number] Description:Triathlon crucia te retaining femoral S9839-B-153 - [id number] Implanted:Qty: 1 on 07/12/2017 by Ignacio Mead MD at [facility] Right: Knee 5531-G-50 9 / / [id number] Description:X3 triathlon CS INS Explanted Type Area Range Manager Device Identifier Shelf Expiration Date Model / Serial / Lot Lead Intrdcr Bladder Interstim - [id number] Explanted:Qty: 1 on 05/04/2016 by Cesar Groves MD at [facility] N/A: Sacrum [employer] Pain Therapy 05/27/2017 3550-18# / / [id number] Procedures Procedure Name Priority Date/Time Associated Diagnosis Comments BLOOD BANK EXTRA [facility] TOP Today 07/09/2024 9:28 AM CDT Pancytopenia (HC) Anemia, unspecified type RED CELL MORPHOLOGY Timed 07/09/2024 9 :28 AM CDT Pancytopenia (HC) PLATELET ESTIMATE Timed 07/09/2024 9:2 8 AM CDT Pancytopenia (HC) MANUAL DIFFERENTIAL Timed 07/09/2024 9 :28 AM CDT Pancytopenia (HC) CBC WITH AUTO DIFFERENTIAL Timed 07/09/2024 9:28 AM CDT Pancytopenia (HC) CBC WITH AUTO DIFFERENTIAL Today 07/09/2024 9:28 AM CDT Pancytopenia (HC) CWS PATH REVIEW HEMATOLOGY STAT 07/03/2024 10:52 AM CDT Pancytopenia (HC) RED CELL MORPHOLOGY STAT 07/03/2024 1 0:52 AM CDT Pancytopenia (HC) PLATELET ESTIMATE STAT 07/03/2024 10: 52 AM CDT Pancytopenia (HC) MANUAL DIFFERENTIAL STAT 07/03/2024 1 0:52 AM CDT Pancytopenia (HC) CBC WITH AUTO DIFFERENTIAL STAT 07/03/2024 10:52 AM CDT Pancytopenia (HC) CBC WITH AUTO DIFFERENTIAL STAT 07/03/2024 10:52 AM CDT Pancytopenia (HC) BLOOD BANK EXTRA LAVENDER TOP Today 07/03/2024 10:51 AM CDT RED CELL MORPHOLOGY Timed 07/01/2024 6 :10 AM CDT PLATELET ESTIMATE Timed 07/01/2024 6:1 0 AM CDT MANUAL DIFFERENTIAL Timed 07/01/2024 6 :10 AM CDT CBC WITH AUTO DIFFERENTIAL Early AM 07/01/2024 6:10 AM CDT RETICULOCYTES Early AM 07/01/2024 6:10 AM CDT CBC WITH AUTO DIFFERENTIAL Early AM 07/01/2024 6:10 AM CDT RED CELL MORPHOLOGY Timed 06/30/2024 6 :22 AM CDT PLATELET ESTIMATE Timed 06/30/2024 6:2 2 AM CDT MANUAL DIFFERENTIAL Timed 06/30/2024 6 :22 AM CDT CBC WITH AUTO DIFFERENTIAL Early AM 06/30/2024 6:22 AM CDT RETICULOCYTES Early AM 06/30/2024 6:22 AM CDT CBC WITH AUTO DIFFERENTIAL Early AM 06/30/2024 6:22 AM CDT RED CELL MORPHOLOGY Timed 06/29/2024 7 :25 AM CDT PLATELET ESTIMATE Timed 06/29/2024 7:2 5 AM CDT MANUAL DIFFERENTIAL Timed 06/29/2024 7 :25 AM CDT CBC WITH AUTO DIFFERENTIAL Early AM 06/29/2024 7:25 AM CDT RETICULOCYTES Early AM 06/29/2024 7:25 AM CDT CBC WITH AUTO DIFFERENTIAL Early AM 06/29/2024 7:25 AM CDT US ARTERIAL LOWER EXTREMITY BILATERAL Routine 06/28/2024 4:07 PM CDT CBC WITH AUTO DIFFERENTIAL Early AM 06/28/2024 8:01 AM CDT CREATININE Early AM 06/28/2024 8:01 AM CDT POTASSIUM Early AM 06/28/2024 8:01 AM CDT SODIUM Early AM 06/28/2024 8:01 AM CDT RETICULOCYTES Early AM 06/28/2024 8:01 AM CDT CBC WITH AUTO DIFFERENTIAL Early AM 06/28/2024 8:01 AM CDT HEMOGLOBIN Today 06/27/2024 6:06 PM CDT TRANSFUSE RBC (NURSE COMMUNICATION ORDER) STAT 06/27/2024 2:19 PM CDT RED BLOOD CELLS EA UNIT STAT 06/27/2024 10:24 AM CDT RED BLOOD CELLS EA UNIT STAT 06/27/2024 10:24 AM CDT RED BLOOD CELLS EA UNIT STAT 06/27/2024 10:24 AM CDT PANEL-ABBREVIATED STAT 06/27/2024 10: 24 AM CDT ANTIBODY IDENTIFICATION EACH PANEL STAT 06/27/2024 10:24 AM CDT ANTIBODY IDENTIFICATION LAB USE ONLY STAT 06/27/2024 10:24 AM CDT RBC W TYPE AND SCREEN STAT 06/27/2024 10:24 AM CDT RED CELL MORPHOLOGY Timed 06/27/2024 7 :15 AM CDT PLATELET ESTIMATE Timed 06/27/2024 7:1 5 AM CDT MANUAL DIFFERENTIAL Timed 06/27/2024 7 :15 AM CDT CBC WITH AUTO DIFFERENTIAL Early AM 06/27/2024 7:15 AM CDT CREATININE Early AM 06/27/2024 7:15 AM CDT POTASSIUM Early AM 06/27/2024 7:15 AM CDT SODIUM Early AM 06/27/2024 7:15 AM CDT RETICULOCYTES Early AM 06/27/2024 7:15 AM CDT CBC WITH AUTO DIFFERENTIAL Early AM 06/27/2024 7:15 AM CDT CBC WITH AUTO DIFFERENTIAL Early AM 06/26/2024 7:42 AM CDT RETICULOCYTES Early AM 06/26/2024 7:42 AM CDT CBC WITH AUTO DIFFERENTIAL Early AM 06/26/2024 7:42 AM CDT CBC WITH AUTO DIFFERENTIAL Early AM 06/25/2024 7:56 AM CDT CREATININE Early AM 06/25/2024 7:56 AM CDT POTASSIUM Early AM 06/25/2024 7:56 AM CDT SODIUM Early AM 06/25/2024 7:56 AM CDT RETICULOCYTES Early AM 06/25/2024 7:56 AM CDT CBC WITH AUTO DIFFERENTIAL Early AM 06/25/2024 7:56 AM CDT TRANSFUSE PLT (NURSE COMMUNICATION ORDER) Today 06/24/2024 9:27 AM CDT PLATELET ORDER Today 06/24/2024 7:43 AM CDT PLATELET EA UNIT Today 06/24/2024 7:41 AM CDT CBC WITH AUTO DIFFERENTIAL Early AM 06/24/2024 7:01 AM CDT RETICULOCYTES Early AM 06/24/2024 7:01 AM CDT CBC WITH AUTO DIFFERENTIAL Early AM 06/24/2024 7:01 AM CDT TRANSFUSE PLT (NURSE COMMUNICATION ORDER) Today 06/23/2024 4:40 PM CDT TRANSFUSE RBC (NURSE COMMUNICATION ORDER) STAT 06/23/2024 11:30 AM CDT RBC W/O TYPE & SCREEN STAT 06/23/2024 7:30 AM CDT RED BLOOD CELLS EA UNIT STAT 06/23/2024 7:30 AM CDT PLATELET ORDER Today 06/23/2024 7:29 AM CDT PLATELET EA UNIT Today 06/23/2024 7:29 AM CDT RED CELL MORPHOLOGY Timed 06/23/2024 6 :03 AM CDT PLATELET ESTIMATE Timed 06/23/2024 6:0 3 AM CDT MANUAL DIFFERENTIAL Timed 06/23/2024 6 :03 AM CDT CBC WITH AUTO DIFFERENTIAL Early AM 06/23/2024 6:03 AM CDT CREATININE Early AM 06/23/2024 6:03 AM CDT POTASSIUM Early AM 06/23/2024 6:03 AM CDT SODIUM Early AM 06/23/2024 6:03 AM CDT RETICULOCYTES Early AM 06/23/2024 6:03 AM CDT CBC WITH AUTO DIFFERENTIAL Early AM 06/23/2024 6:03 AM CDT HEMOGLOBIN Today 06/22/2024 1:34 PM CDT US VENOUS LOWER EXTREMITY BILATERAL Routine 06/22/2024 11:24 AM CDT TRANSFUSE RBC (NURSE COMMUNICATION ORDER) STAT 06/22/2024 5:27 AM CDT MRSA/SA PCR Today 06/22/2024 4:10 AM CDT RBC W/O TYPE & SCREEN STAT 06/22/2024 3:46 AM CDT RED BLOOD CELLS EA UNIT STAT 06/22/2024 3:43 AM CDT TYPE & SCREEN STAT 06/22/2024 3:16 AM CDT RED CELL MORPHOLOGY STAT 06/22/2024 3 :16 AM CDT PLATELET ESTIMATE STAT 06/22/2024 3:1 6 AM CDT MANUAL DIFFERENTIAL STAT 06/22/2024 3 :16 AM CDT CBC WITH AUTO DIFFERENTIAL STAT 06/22/2024 3:16 AM CDT HEPATIC FUNCTION PANEL STAT 3:16 AM CDT BASIC METABOLIC PANEL STAT 06/22/2024 3:16 AM CDT CBC WITH AUTO DIFFERENTIAL STAT 06/22/2024 3:16 AM CDT METHOTREXATE (MEXATE) STAT 06/22/2024 3:16 AM CDT CWS PATH REVIEW HEMATOLOGY STAT 06/21/2024 12:57 PM CDT Pancytopenia (HC) RED CELL MORPHOLOGY STAT 06/21/2024 1 2:57 [...] CDT Pancytopenia (HC) SCAN-ULTRASOUND REPORT 12:00 AM REINFORCING STEEL MACHINE OPERATOR CWS PATH REVIEW HEMATOLOGY Timed 05/27/2024 11:00 AM REINFORCING STEEL MACHINE OPERATOR Pancytopenia (HC) RED CELL MORPHOLOGY Timed 05/27/2024 1 1:00 AM REINFORCING STEEL MACHINE OPERATOR Pancytopenia (HC) PLATELET ESTIMATE Timed 05/27/2024 11: 00 AM REINFORCING STEEL MACHINE OPERATOR Pancytopenia (HC) MANUAL DIFFERENTIAL Timed 05/27/2024 1 1:00 AM REINFORCING STEEL MACHINE OPERATOR Pancytopenia (HC) CBC WITH AUTO DIFFERENTIAL Timed 05/27/2024 11:00 AM REINFORCING STEEL MACHINE OPERATOR Pancytopenia (HC) FERRITIN Today 05/27/2024 11:00 AM REINFORCING STEEL MACHINE OPERATOR Pancytopenia (HC) IRON PLUS IRON BINDING CAP Today 05/27/2024 11:00 AM REINFORCING STEEL MACHINE OPERATOR Pancytopenia (HC) HEPATIC FUNCTION PANEL Today 11:00 AM REINFORCING STEEL MACHINE OPERATOR Pancytopenia (HC) BASIC METABOLIC PANEL Today 05/27/2024 11:00 AM REINFORCING STEEL MACHINE OPERATOR Pancytopenia (HC) RETICULOCYTES Today 05/27/2024 11:00 AM REINFORCING STEEL MACHINE OPERATOR Pancytopenia (HC) CBC WITH AUTO DIFFERENTIAL Today 05/27/2024 11:00 AM REINFORCING STEEL MACHINE OPERATOR Pancytopenia (HC) SCAN CORRESP-LABORATORY RESULTS 05/23/2024 12:00 AM REINFORCING STEEL MACHINE OPERATOR SCAN CORRESP-IMAGING 05/23/2024 12:00 AM REINFORCING STEEL MACHINE OPERATOR CBC WITH AUTO DIFFERENTIAL Routine 05/20/2024 12:19 PM REINFORCING STEEL MACHINE OPERATOR Pancytopenia (HC) SCAN-LABORATORY REPORT 12:00 AM REINFORCING STEEL MACHINE OPERATOR SCAN-CT INTERPRETATION 12:00 AM REINFORCING STEEL MACHINE OPERATOR SCAN-RADIOLOGY REPORT 05/14/2024 12:00 AM REINFORCING STEEL MACHINE OPERATOR LAB TRACKING EVENT Routine 05/13/2024 7: 30 PM REINFORCING STEEL MACHINE OPERATOR PERIPHERAL BLD MORPHOLOGY Routine 05/13/2024 7:30 PM REINFORCING STEEL MACHINE OPERATOR XR DXA BONE DENSITY 2 SITES AXIAL Routine 10/06/2022 10:59 AM CDT Age-related osteoporosis without current pathological fracture from Last 3 Months or Most Recently Relevant to Health Maintenance Results * (ABNORMAL) CBC WITH AUTO DIFFERENTIAL (07/09/2024 9:28 AM CDT) Only the most recent of14 resultswithin the time period is included. WHITE BLOOD COUNT 13.0(H) 4.5 - 11.0 thou/cu mm 07/09/2024 10:01 AM [facility] RED BLOOD COUNT 3.26(L) 4.00 - 5.20 mil/cu mm 07/09/2024 10:01 AM [facility] HEMOGLOBIN 10.3(L) 12.0 - 16.0 g/dL 07/09/2024 10:01 AM [facility] HEMATOCRIT 33.4 33.0 - 51.0 % 07/09/2024 10:01 AM [facility] MCV 103(H) 80 - 100 fL 07/09/2024 10:01 AM [facility] MCH 31.6 26.0 - 34.0 pg 07/09/2024 10:01 AM [facility] MCHC 30.8(L) 32.0 - 36.0 g/dL 07/09/2024 10:01 AM [facility] RDW 21.2(H) 11.5 - 15.5 % 07/09/2024 10:01 AM [facility] PLATELET COUNT 731(H) 140 - 440 thou/cu mm 07/09/2024 10:01 AM [facility] MPV 8.5 6.5 - 11.0 fL 07/09/2024 10:01 AM [facility] Blood BLOOD SPECIMEN / Unknown Butterfly / Unknown 07/09/2024 9:28 AM CDT 07/09/2024 9:34 AM CDT Jamila Mckeon NP HEMATOLOGY Final Result Performing Organization Address City/[facility]/ZIP Co de Phone Number [facility] [address] [place] [address] * (ABNORMAL) RED CELL MORPHOLOGY (07/09/2024 9:28 AM CDT) Only the most recent of10 resultswithin the time period is included. ELLIPTOCYTES Few 07/09/2024 10:01 AM [facility] SCHISTOCYTES Few 07/09/2024 10:01 AM [facility] TEARDROP CELLS Few 07/09/2024 10:01 AM [facility] RBC COMMENT Present(A) RBC morphology appears normal, RBC morphology within normal limits for newborns. 07/09/2024 10:01 AM [facility] LARGE PLATELETS Present 10:01 AM [facility] Blood BLOOD SPECIMEN / Unknown Butterfly / Unknown 07/09/2024 9:28 AM CDT 07/09/2024 9:34 AM CDT Jamila Mckeon NP HEMATOLOGY Final Result Performing Organization Address City/[facility]/ZIP Co de Phone Number [facility] [address] [place] [address] * (ABNORMAL) PLATELET ESTIMATE (07/09/2024 9:28 AM CDT) Only the most recent of10 resultswithin the time period is included. Pathologist [facility] [place] PLATELET ESTIMATE Increased (A) Adequate, No estimate 07/09/2024 10:01 AM [facility] Blood BLOOD SPECIMEN / Unknown Butterfly / Unknown 07/09/2024 9:28 AM CDT 07/09/2024 9:34 AM CDT us Jamila Mckeon NP HEMATOLOGY Final Result [facility] [address] [place] [address] * (ABNORMAL) MANUAL DIFFERENTIAL (07/09/2024 9:28 AM CDT) Only the most recent of9 resultswithin the time period is included. [facility] % NEUTROPHILS 65.0 % 07/09/2024 10:01 AM [facility] % LYMPHOCYTES 18.0 % 07/09/2024 10:01 AM [facility] % MONOCYTES 16.0 % 07/09/2024 10:01 AM [facility] % EOSINOPHILS 1.0 % 07/09/2024 10:01 AM [facility] % BASOPHILS 0.0 % 07/09/2024 10:01 AM [facility] NEUTROPHILS ABSOLUTE 8.5(H) 1.7 - 7.0 thou/cu mm 07/09/2024 10:01 AM [facility] LYMPHOCYTES ABSOLUTE 2.3 0.9 - 2.9 thou/cu mm 07/09/2024 10:01 AM [facility] MONOCYTES ABSOLUTE 2.1(H) <0.9 thou/cu mm 07/09/2024 10:01 AM [facility] EOSINOPHILS ABSOLUTE 0.1 <0.5 thou/cu mm 07/09/2024 10:01 AM [facility] BASOPHILS ABSOLUTE 0.0 <0.3 thou/cu mm 07/09/2024 10:01 AM [facility] Blood BLOOD SPECIMEN / Unknown Butterfly / Unknown 07/09/2024 9:28 AM CDT 07/09/2024 9:34 AM CDT us Jamila Mckeon DIRECT SUPPORT PROFESSIONAL HEMATOLOGY Final Result Performing Organization Address City/[facility]/ZIP Co de Phone Number [facility] [address] [place] [address] * BLOOD BANK EXTRA LAVENDER TOP (07/09/2024 9:28 AM CDT) Only the most recent of2 resultswithin the time period is included. Blood BLOOD SPECIMEN / Unknown Butterfly / Unknown 07/09/2024 9:28 AM CDT 07/09/2024 9:34 AM CDT us Jamila Mckeon DIRECT SUPPORT PROFESSIONAL BLOOD BANK Final Result Performing Organization Address [facility] Co de Phone Number [facility] [address] [place] [address] * CWS PATH REVIEW HEMATOLOGY (07/03/2024 10:52 AM CDT) Only the most recent of3 resultswithin the time period is included. PATH COMMENT Reviewed by Destiny Hylton MT, MS (ASCP) on 07/04/2024 07/05/2024 2:05 PM CDT [facility] Blood BLOOD SPECIMEN / Unknown Venipuncture / Unknown 07/03/2024 10:52 AM CDT 07/03/2024 10:58 AM CDT us Jamila Godoydidier DIRECT SUPPORT PROFESSIONAL LABORATORY Final Result Performing Organization Address City/[facility]/ZIP Co de Phone Number [facility] [address] [place] [address], [place] * (ABNORMAL) RETICULOCYTES (07/01/2024 6:10 AM CDT) Only the most recent of10 resultswithin the time period is included. RETIC% 5.6(H) 0.5 - 1.5 % 07/01/2024 8:06 AM CDT [facility] RETIC (ABSOLUTE) 0.15(H) 0.03 - 0.08 mil/cu mm 07/01/2024 8:06 AM CDT [facility] Blood BLOOD SPECIMEN / Unknown Venipuncture / Unknown 07/01/2024 6:10 AM CDT 07/01/2024 6:43 AM CDT us Olga Lidia Cleary MD HEMATOLOGY Final Result [facility] [address] [place] [address], * arterial duplex BILATERAL lower extremity TODAY (06/28/2024 4:07 PM CDT) Anatomical Region Laterality Modality LEGS, LEG L, LEG R Ultrasound 06/28/2024 11:5 5 PM CDT Impressions 06/28/2024 11:55 PM CDT 1. Multiphasic waveforms throughout the bilateral lower extremities. 2. Mild vessel stiffening in the right posterior tibial artery, otherwise normal right ankle-brachial and toe-brachial indices. 3. Left ankle-brachial index not obtained due to known deep venous thrombosis. Normal left toe-brachial index. Dictated by Gui Welch MD @ 06/28/2024 11:55:53 PM (Electronically Signed) Narrative 06/28/2024 11:55 PM CDT For Patients: As a result of the Cures Act, medical imaging exams and procedure reports are released immediately into your electronic medical record. You may view this report before your referring provider. If you have questions, please contact your health care provider. INDICATION: Nonhealing lower extremity wounds. TECHNIQUE: Routine duplex arterial examination of bilateral lower extremities including 2D and spectral analysis, and color Doppler imaging was performed. In addition, resting ankle-brachial and toe-brachial indices were obtained. COMPARISON: 02/06/2023. FINDINGS: In the right lower extremity there are multiphasic waveforms in the common femoral artery, profunda femoral artery, superficial femoral artery, and popliteal artery. At the ankle, there are multiphasic waveforms in the posterior tibial artery, anterior tibial artery, and dorsalis pedis artery. In the left lower extremity there are multiphasic waveforms within the common femoral artery, profunda femoral artery, superficial femoral artery, and popliteal artery. At the ankle, there are multiphasic waveforms in the posterior tibial artery, anterior tibial artery, and dorsalis pedis artery. Right Brachial: 135 mmHg Left Brachial: 122 mmHg Right CELL OPERATOR: 200 mmHg (JANINA 1.48) Right DPA: 160 mmHg (JANINA 1.19) Right great toe: 100 mmHg (TBI 0.74) Left CELL OPERATOR: Not obtained due to known lower extremity deep venous thrombosis Left DPA: Not obtained due to known lower extremity deep venous thrombosis Left great toe: 105 mmHg (TBI 0.78) JANINA: 1.0-1.4 - normal 0.9-0.99 - borderline 0.80-0.89 - mild 0.50-0.79 - moderate 0.30-0.49 - severe < 0.30 - critical TBI: <0.7 - normal 0.5-0.7 - mild 0.35-0.5 - moderate <0.35 and <30 mmHg - moderate severe <0.35 and <30 mmHg - severe Procedure Note Gui Welch MD - 06/28/2024 For Patients: As a result of the Century Cures Act, medical imagingexams and procedure reports are released immediately into your electronicmedical record. You may view this report before your referring provider.If you have questions, please contact your health care provider. INDICATION: Nonhealing lower extremity wounds. TECHNIQUE: Routine duplex arterial examination of bilateral lower extremitiesincluding 2D and spectral analysis, and color Doppler imaging wasperformed. In addition, resting ankle-brachial and toe-brachial indiceswere obtained. COMPARISON: 02/06/2023. FINDINGS: In the right lower extremity there are multiphasic waveforms in the commonfemoral artery, profunda femoral artery, superficial femoral artery, andpopliteal artery. At the ankle, there are multiphasic waveforms in theposterior tibial artery, anterior tibial artery, and dorsalis pedisartery. In the left lower extremity there are multiphasic waveforms within thecommon femoral artery, profunda femoral artery, superficial femoralartery, and popliteal artery. At the ankle, there are multiphasicwaveforms in the posterior tibial artery, anterior tibial artery, anddorsalis pedis artery. Right Brachial: 135 mmHg Left Brachial: 122 mmHg Right CELL OPERATOR: 200 mmHg (JANINA 1.48) Right DPA: 160 mmHg (JANINA 1.19) Right great toe: 100 mmHg (TBI 0.74) Left CELL OPERATOR: Not obtained due to known lower extremity deep venousthrombosis Left DPA: Not obtained due to known lower extremity deep venousthrombosis Left great toe: 105 mmHg (TBI 0.78) JANINA: 1.0-1.4 - normal 0.9-0.99 - borderline 0.80-0.89 - mild 0.50-0.79 - moderate 0.30-0.49 - severe < 0.30 - critical TBI: <0.7 - normal 0.5-0.7 - mild 0.35-0.5 - moderate <0.35 and <30 mmHg - moderate severe <0.35 and <30 mmHg - severe IMPRESSION: 1. Multiphasic waveforms throughout the bilateral lower extremities. 2. Mild vessel stiffening in the right posterior tibial artery, otherwisenormal right ankle-brachial and toe-brachial indices. 3. Left ankle-brachial index not obtained due to known deep venousthrombosis. Normal left toe-brachial index. Dictated by Gui Welch MD @ 06/28/2024 11:55:53 PM (Electronically Signed) Ilir Rausch MD US Final Res ult * (ABNORMAL) SODIUM (06/28/2024 8:01 AM CDT) Only the most recent of4 resultswithin the time period is included. SODIUM 135(L) 136 - 145 mmol/L 06/28/2024 8:47 AM CDT [facility] Blood BLOOD SPECIMEN / Unknown Butterfly / Unknown 06/28/2024 8:01 AM CDT 06/28/2024 8:11 AM CDT Ilir Rausch MD CHEMISTRY Final Res ult [facility] [address] [place] [address], * POTASSIUM (06/28/2024 8:01 AM CDT) Only the most recent of4 resultswithin the time period is included. POTASSIUM 3.9 3.5 - 5.1 mmol/L 06/28/2024 8:47 AM CDT [facility] Blood BLOOD SPECIMEN / Unknown Butterfly / Unknown 06/28/2024 8:01 AM CDT 06/28/2024 8:11 AM CDT Ilir Rausch MD CHEMISTRY Final Res ult Performing Organization Address City/[facility] Co de Phone Number [facility] [address] [address], [place] * (ABNORMAL) CREATININE (06/28/2024 8:01 AM CDT) Only the most recent of4 resultswithin the time period is included. eGFR 84(L) >90 mL/min/1.7 3m2 06/28/2024 8:47 AM CDT [facility] Comment:As of 2021, eG FR is calculated by the CKD-EPI creatinine equation without race adjustment. eGFR can be influenced by muscle mass, exercise, and diet. The reported eGFR is an estimation only and is only applicable if the renal function is stable. CREATININE 0.71 0.50 - 0.90 mg/dL 06/28/2024 8:47 AM CDT [facility] Blood BLOOD SPECIMEN / Unknown Butterfly / Unknown 06/28/2024 8:01 AM CDT 06/28/2024 8:11 AM CDT Ilir Rausch MD CHEMISTRY Final Res ult Performing Organization Address City/[facility]/ZIP Co de Phone Number [facility] [address] [address], [place] * (ABNORMAL) HEMOGLOBIN (06/27/2024 6:06 PM CDT) Only the most recent of2 resultswithin the time period is included. HEMOGLOBIN 9.5(L) 12.0 - 16.0 g/dL 06/27/2024 6:17 PM CDT [facility] MCV 95 80 - 100 fL 06/27/2024 6:17 PM CDT [facility] Blood BLOOD SPECIMEN / Unknown Butterfly / Unknown 06/27/2024 6:06 PM CDT 06/27/2024 6:11 PM CDT Ilir Rausch MD HEMATOLOGY Final Res ult [facility] [address] [place] [address], * TRANSFUSE RBC (NURSE COMMUNICATION ORDER) (06/27/2024 5:13 PM CDT) Blood BLOOD SPECIMEN / Unknown Ilir Rausch MD NURSING BLOOD BANK Final Result * (ABNORMAL) RBC W TYPE AND SCREEN (06/27/2024 10:24 AM CDT) Pathologist [facility] [place] ABORH A Rh Negative 06/27/2024 11:14 AM CDT [facility] BLOOD BANK ANTIBODY SCREEN Positive(A) Negative 06/27/2024 11:14 AM CDT [facility] BLOOD BANK SPECIMEN EXPIRATION DATE/TIME 06/30/24 23:59 06/27/2024 11:14 AM CDT [facility] Blood BLOOD SPECIMEN / Unknown Venipuncture / Unknown 06/27/2024 10:24 AM CDT 06/27/2024 10:31 AM CDT Ilir Rausch MD BLOOD BANK Final Res ult [facility] B[facility]OD BANK [address] [place] [address], * (ABNORMAL) ANTIBODY IDENTIFICATION LAB USE ONLY (06/27/2024 10:24 AM CDT) Pathologist [facility] [place] ANTIBODY IDENTIFICATION Anti-D(A) 06/27/2024 12:48 PM CDT [facility] Blood BLOOD SPECIMEN / Unknown Venipuncture / Unknown 06/27/2024 10:24 AM CDT 06/27/2024 10:31 AM CDT Narrative [facility] - 06/27/2024 12:48 PM CDT Blood products may be delayed. Draw patient 24 hours prior to transfusion. Draw one red top and two purple top tubes for all Type and Screen orders. This patient's serological work-up may have included protocols and/or reagents that have not been cleared or approved by the [place].S. Food and Drug Administration. If specific information is required, please contact the performing laboratory Ilir Rausch MD BLOOD BANK Final Res ult [facility] [address] [place] [address], [place] [phone] * ANTIBODY IDENTIFICATION EACH PANEL (06/27/2024 10:24 AM CDT) QUANTITY 1 [facility] BLOOD BANK PANEL SELIN ID Panel Antibody ID [facility] Ilir Rausch MD BLOOD BANK Final Res ult Performing Organization Address City/[facility]/ZIP Co de Phone Number [facility] [address] [place] [address], [place] [phone] * PANEL-ABBREVIATED (06/27/2024 10:24 AM CDT) QUANTITY 1 [facility] PANEL ABBREVIATED Panel Abbreviated [facility] BLOOD BANK Ilir Rausch MD BLOOD BANK Final Res ult Performing Organization Address [facility]/ZIP Co de Phone Number [facility] [address] [place] [address], [place] [phone] * RED BLOOD CELLS EA UNIT (06/27/2024 10:24 AM CDT) Only the most recent of5 resultswithin the time period is included. Pathologist [facility] [place] CROSSMATCH Compatible Compatible [facility] [employer] LAB BLOOD BANK PRODUCT BLOOD TYPE A Rh Negative [facility] [employer] LAB BLOOD BANK PRODUCT ID NUMBER [id number] [facility] [employer]-CENTRAL LAB BLOOD BANK PRODUCT STATUS /Relea sed [facility] [employer]TR[facility] LAB BLOOD BANK PRODUCT DESCRIPTION RBC -1 LR [facility] [employer] LAB BLOOD BANK PRODUCT CODE [id number] [facility] LAB BLOOD BANK Ilir Rausch MD BLOOD BANK Edited Re sult - Final [facility] BLOOD BANK [address] [place] [address], [place] [phone] * TRANSFUSE PLT (NURSE COMMUNICATION ORDER) (06/24/2024 11:13 AM CDT) Blood BLOOD SPECIMEN / Unknown Olga Lidia Cleary MD NURSING BLOOD BANK Final Res ult * PLATELET ORDER, 1 unit (06/24/2024 7:43 AM CDT) Only the most recent of2 resultswithin the time period is included. Pathologist [facility] [place] QUANTITY 1 06/24/2024 7:4 3 AM CDT [facility] [employer] LAB BLOOD BANK Blood BLOOD SPECIMEN / Unknown 06/24/2024 7:41 AM CDT Olga Lidia Cleary MD BLOOD BANK Final Result [facility] [employer] LAB BLOOD BANK [address] [place] [address], [place] [phone] * PLATELET EA UNIT (06/24/2024 7:41 AM CDT) Only the most recent of2 resultswithin the time period is included. Pathologist [facility] [place] PRODUCT BLOOD TYPE A Rh Positive [facility] [employer] [facility] [employer] LAB BLOOD BANK PRODUCT ID NUMBER [id number] [facility] PRODUCT STATUS Transfused [facility] LAB BLOOD BANK PRODUCT DESCRIPTION SDP ACD-A IRR LR Pt3 [facility] LAB BLOOD BANK PRODUCT CODE [id number] [facility] BLOOD BANK ISSUE DATE/TIME 06/24/24 08:37 [facility] BLOOD BANK Olga Lidia Cleary MD BLOOD BANK Edited Resul t - Final [facility] B[facility]OD BANK [address] [place] [address], [place] [phone] * TRANSFUSE PLT (NURSE COMMUNICATION ORDER) (06/23/2024 6:16 PM CDT) Blood BLOOD SPECIMEN / Unknown Ilir Rausch MD NURSING BLOOD BANK Final Result * TRANSFUSE RBC (NURSE COMMUNICATION ORDER) (06/23/2024 2:04 PM CDT) Blood BLOOD SPECIMEN / Unknown Ilir Rausch MD NURSING BLOOD BANK Final Result * RBC W/O TYPE & SCREEN (06/23/2024 7:30 AM CDT) Only the most recent of2 resultswithin the time period is included. QUANTITY 1 06/23/2024 7:3 0 AM CDT [facility] BLOOD BANK Blood BLOOD SPECIMEN / Unknown 06/23/2024 7:26 AM CDT Ilir Rausch MD BLOOD BANK Final Res ult Performing Organization Address City/[facility]/ZIP Co de Phone Number [facility] BLOOD BANK [address] [place] [address], [place] [phone] * [place] Venous doppler BILATERAL lower extremity (06/22/2024 11:24 AM CDT) Anatomical Region Laterality Modality LEGS, LEG L, LEG R Ultrasound 06/22/2024 2:49 PM CDT Addenda Addendum by Joi Bañuelos MD on 06/22/2024 3:07 PM CDT Addendum: discussed with Dr Campo by phone at 2:58 pm on 06/22/2024. Impressions 06/22/2024 2:49 PM CDT 1. Acute DVT in the distal left common and popliteal veins. 2. No acute DVT on right. Dictated by Joi Bañuelos MD @ 06/22/2024 2:49:06 PM (Electronically Signed) Narrative 06/22/2024 2:49 PM CDT For Patients: As a result of the Cures Act, medical imaging exams and procedure reports are released immediately into your electronic medical record. You may view this report before your referring provider. If you have questions, please contact your health care provider. HISTORY: Swelling. TECHNIQUE: Ultrasound of the bilateral lower extremity deep veins using jacobsen-scale, color Doppler, and spectral Doppler. COMPARISON: None. FINDINGS: Left: Noncompressible distal femoral vein and popliteal vein. The common femoral, proximal and mid femoral veins are patent and compressible with normal response to augmentation. Deep femoral vein is patent and compressible. Posterior tibial vein is patent and compressible with normal response to augmentation. Peroneal vein is patent and compressible. Greater saphenous vein is patent and compressible at the junction with the femoral vein. Right: Common femoral, femoral, and popliteal veins are patent and compressible with normal response to augmentation. Deep femoral vein is patent and compressible. Posterior tibial vein is patent and compressible with normal response to augmentation. Peroneal vein is patent and compressible. Greater saphenous vein is patent and compressible at the junction with the femoral vein. us Ilir Rausch MD US Edited Re sult - Final * TRANSFUSE RBC (NURSE COMMUNICATION ORDER) (06/22/2024 8:03 AM CDT) Blood BLOOD SPECIMEN / Unknown us Alanna Calderon MD NURSING BLOOD BANK Final Re sult * MRSA/SA PCR (06/22/2024 4:10 AM CDT) Pathologist [facility] MRSA DNA PCR Negative Negative 06/22/2024 6:03 AM CDT [facility] STAPHYLOCOCCUS AUREUS PCR Negative Negative 06/22/2024 6:03 AM CDT [facility] Other SPECIMEN FROM INTERNAL NOSE / Unknown Non-Blood / Unknown 06/22/2024 4:10 AM CDT 06/22/2024 4:34 AM CDT Narrative [facility] - 06/22/2024 6:03 AM CDT Test result does not preclude MRSA or SA nasal colonization. Alanna Calderon MD MICROBIOLOGY Final Resul t [facility] [address] [place] [address], * TYPE & SCREEN (06/22/2024 3:16 AM CDT) Pathologist [facility] ABORH A Rh Negative 06/22/2024 4:43 AM CDT [facility] BLOOD BANK ANTIBODY SCREEN Negative Negative 06/22/2024 4:43 AM CDT [facility] BLOOD BANK SPECIMEN EXPIRATION DATE/TIME 06/25/24 23:59 06/22/2024 4:43 AM CDT [facility] BLOOD BANK Blood BLOOD SPECIMEN / Unknown Butterfly / Unknown 06/22/2024 3:16 AM CDT 06/22/2024 3:23 AM CDT Alanna Calderon MD BLOOD BANK Final Resul t [facility] BLOOD BANK [address] [place] [address], [place] [phone] * METHOTREXATE (MEXATE) (06/22/2024 3:16 AM CDT) Pathologist [facility] [place] METHOTREXATE (MEXATE) <0.04 uMoles/L 06/22/2024 4:17 AM CDT [facility] Blood BLOOD SPECIMEN / Unknown Butterfly / Unknown 06/22/2024 3:16 AM CDT 06/22/2024 3:23 AM CDT Narrative [facility] - 06/22/2024 4:17 AM CDT Toxic Values for Methotrexate: >50.0 uMoles/L at 24 hours post infusion >10.0 uMoles/L at 48 hours post infusion >0.20 uMoles/L at 72 hours post infusion us Alanna Calderon MD SEND OUTS Final Resul t [facility] [address] [place] [address], * (ABNORMAL) Hepatic function panel TODAY (06/22/2024 3:16 AM CDT) Only the most recent of2 resultswithin the time period is included. ALBUMIN 3.1(L) 4.0 - 4.9 g/dL 06/22/2024 3:48 AM CDT [facility] PROTEIN,TOTAL 5.2(L) 6.0 - 8.0 g/dL 06/22/2024 3:48 AM CDT [facility] BILIRUBIN,TOTAL 0.7 0.0 - 1.2 mg/dL 06/22/2024 3:48 AM CDT [facility] BILIRUBIN,DIRECT 0.4(H) 0.0 - 0.2 mg/dL 06/22/2024 3:48 AM CDT [facility] BILIRUBIN,INDIRE CT 0.3 0.2 - 0.8 mg/dL 06/22/2024 3:48 AM CDT [facility] ALK PHOSPHATASE 98 35 - 104 IU/L 06/22/2024 3:48 AM CDT [facility] ALT (SGPT) 55(H) 10 - 35 IU/L 06/22/2024 3:48 AM CDT [facility] AST (SGOT) 40(H) 10 - 35 IU/L 06/22/2024 3:48 AM CDT [facility] Blood BLOOD SPECIMEN / Unknown Butterfly / Unknown 06/22/2024 3:16 AM CDT 06/22/2024 3:23 AM CDT us Alanna Calderon MD CHEMISTRY Final Resul t [facility] [address] [place] [address], * (ABNORMAL) Basic metabolic panel AM (06/22/2024 3:16 AM CDT) Only the most recent of2 resultswithin the time period is included. SODIUM 134(L) 136 - 145 mmol/L 06/22/2024 3:48 AM CDT [facility] POTASSIUM 4.0 3.5 - 5.1 mmol/L 06/22/2024 3:48 AM CDT [facility] CHLORIDE 102 98 - 107 mmol/L 06/22/2024 3:48 AM CDT [facility] CO2,TOTAL 21(L) 22 - 29 mmol/L 06/22/2024 3:48 AM CDT [facility] ANION GAP 11 5 - 18 06/22/2024 3:48 AM CDT [facility] GLUCOSE 111(H) 70 - 99 mg/dL 06/22/2024 3:48 AM CDT [facility] CALCIUM 8.2(L) 8.8 - 10.4 mg/dL 06/22/2024 3:48 AM CDT [facility] Comment: Reference ranges for this test were updated on 01/30/2024 to reflect our healthy population more accurately. Reference range changes are not retroactively applied to results, but previous results using the same methodology can be interpreted in the context of the new reference range. BUN 43(H) 8 - 23 mg/dL 06/22/2024 3:48 AM CDT [facility] CREATININE 0.84 0.50 - 0.90 mg/dL 06/22/2024 3:48 AM CDT [facility] BUN/CREAT RATIO 51(H) 10 - 20 3:48 AM [facility] eGFR 69(L) >90 mL/min/1. 73m2 06/22/2024 3:48 AM T [facility] Comment:As of 2021, eG FR is calculated by the CKD-EPI creatinine equation without race adjustment. eGFR can be influenced by muscle mass, exercise, and diet. The reported eGFR is an estimation only and is only applicable if the renal function is stable. Blood BLOOD SPECIMEN / Unknown Butterfly / Unknown 06/22/2024 3:16 AM CDT 06/22/2024 3:23 AM CDT us Alanna Calderon MD CHEMISTRY Final Resul t [facility] [address] [place] [address], * (ABNORMAL) STAT Comp Metabolic Panel CMP (06/21/2024 12:57 PM CDT) SODIUM 132(L) 136 - 145 mmol/L 06/21/2024 2:32 PM [facility] POTASSIUM 4.8 3.5 - 5.1 mmol/L 06/21/2024 2:32 PM [facility] CHLORIDE 99 98 - 107 mmol/L 06/21/2024 2:32 PM [facility] CO2,TOTAL 22 22 - 29 mmol/L 06/21/2024 2:32 PM [facility] ANION GAP 11 5 - 18 06/21/2024 2:32 PM [facility] GLUCOSE 121(H) 70 - 99 mg/dL 06/21/2024 2:32 PM [facility] CALCIUM 8.9 8.8 - 10.4 mg/dL 06/21/2024 2:32 PM [facility] Comment: Reference ranges for this test were updated on 01/30/2024 to reflect our healthy population more accurately. Reference range changes are not retroactively applied to results, but previous results using the same methodology can be interpreted in the context of the new reference range. BUN 46(H) 8 - 23 mg/dL 06/21/2024 2:32 PM [facility] CREATININE 0.91(H) 0.50 - 0.90 mg/dL 06/21/2024 2:32 PM [facility] BUN/CREAT RATIO 51(H) 10 - 20 2:32 PM [facility] eGFR 62(L) >90 mL/min/1. 73m2 06/21/2024 2:32 PM [facility] Comment:As of 2021, eG FR is calculated by the CKD-EPI creatinine equation without race adjustment. eGFR can be influenced by muscle mass, exercise, and diet. The reported eGFR is an estimation only and is only applicable if the renal function is stable. ALBUMIN 3.5(L) 4.0 - 4.9 g/dL 06/21/2024 2:32 PM [facility] PROTEIN,TOTAL 6.2 6.0 - 8.0 g/dL 06/21/2024 2:32 PM [facility] BILIRUBIN,TOTAL 0.7 0.0 - 1.2 mg/dL 06/21/2024 2:32 PM [facility] ALK PHOSPHATASE 112(H) 35 - 104 IU/L 06/21/2024 2:32 PM [facility] ALT (SGPT) 70(H) 10 - 35 IU/L 06/21/2024 2:32 PM [facility] AST (SGOT) 55(H) 10 - 35 IU/L 06/21/2024 2:32 PM [facility] Blood BLOOD SPECIMEN / Unknown [facility] / Unknown 06/21/2024 12:57 PM CDT 06/21/2024 12:57 PM CDT us Constanza Cardozo MD CHEMISTRY Final Resul t [facility] [address] [place] [address] * (ABNORMAL) PLATELET ESTIMATION ([facility] REFLEX ONLY) (06/13/2024 2:04 PM CDT) Pathologist [facility] [place] PLATELET ESTIMATION DECREASED( A) ADEQUATE [facility] 06/13/2024 2:04 PM CDT 06/13/2024 2:05 PM CDT us Constanza Cardozo MD HEMATOLOGY Final Resul t [facility] [address] [place] [address], [facility] [address] [place] [address] * (ABNORMAL) CBC AND DIFFERENTIAL (06/13/2024 2:04 PM CDT) Only the most recent of2 resultswithin the time period is included. [facility] WHITE BLOOD CELL COUNT 4.5 3.8 - [...] Cardozo MD HEMATOLOGY Final Resul t [facility] [employer] [facility] [address] [place] [address], [place] [phone] [facility] [address] [place] [phone] * SCAN-ULTRASOUND REPORT (05/30/2024 12:00 AM REINFORCING STEEL MACHINE OPERATOR) Anatomical Region Laterality Modality Other us Scanner OTHER Final Result * (ABNORMAL) IRON PLUS IRON BINDING CAP (05/27/2024 11:00 AM REINFORCING STEEL MACHINE OPERATOR) IRON 93 37 - 145 ug/dL 05/28/2024 1:34 AM REINFORCING STEEL MACHINE OPERATOR [facility] UIBC (UNSATURATED) 110(L) 112 - 347 ug/dL 05/28/2024 1:34 AM REINFORCING STEEL MACHINE OPERATOR [facility] IRON BINDING CAPACITY 203(L) 250 - 400 ug/dL 05/28/2024 1:34 AM REINFORCING STEEL MACHINE OPERATOR [facility] IRON,% SATURATION 46 14 - 50 % 05/28/2024 1:34 AM REINFORCING STEEL MACHINE OPERATOR [facility] Blood BLOOD SPECIMEN / Unknown Venipuncture / Unknown 05/27/2024 11:00 AM REINFORCING STEEL MACHINE OPERATOR 05/27/2024 11:01 AM REINFORCING STEEL MACHINE OPERATOR us Jamila Harjit Mckeon DIRECT SUPPORT PROFESSIONAL CHEMISTRY Final Result [facility] [address] [place] [address], [place] * (ABNORMAL) FERRITIN (05/27/2024 11:00 AM REINFORCING STEEL MACHINE OPERATOR) FERRITIN 1,217.0(H) 15.0 - 150.0 ng/mL 05/28/2024 1:35 AM REINFORCING STEEL MACHINE OPERATOR [facility] Blood BLOOD SPECIMEN / Unknown Venipuncture / Unknown 05/27/2024 11:00 AM REINFORCING STEEL MACHINE OPERATOR 05/27/2024 11:01 AM REINFORCING STEEL MACHINE OPERATOR us Jamila L Jayney DIRECT SUPPORT PROFESSIONAL CHEMISTRY Final Result Performing Organization Address City/[facility]/ZIP Co de Phone Number [facility] [address] [address], [place] * SCAN CORRESP-LABORATORY RESULTS (05/23/2024 12:00 AM REINFORCING STEEL MACHINE OPERATOR) us Scanner OTHER Final Result * SCAN CORRESP-IMAGING (05/23/2024 12:00 AM REINFORCING STEEL MACHINE OPERATOR) Anatomical Region Laterality Modality Other us Scanner OTHER Final Result * SCAN-RADIOLOGY REPORT (05/14/2024 12:00 AM REINFORCING STEEL MACHINE OPERATOR) Anatomical Region Laterality Modality Other us Scanner OTHER Final Result * SCAN-LABORATORY REPORT (05/14/2024 12:00 AM REINFORCING STEEL MACHINE OPERATOR) us Scanner OTHER Final Result * SCAN-CT INTERPRETATION (05/14/2024 12:00 AM REINFORCING STEEL MACHINE OPERATOR) Anatomical Region Laterality Modality Other us Scanner OTHER Final Result * LAB TRACKING EVENT (05/13/2024 7:30 PM REINFORCING STEEL MACHINE OPERATOR) Other (Other) Client Collect / Unknown 05/13/2024 7:30 PM REINFORCING STEEL MACHINE OPERATOR 05/14/2024 10:14 PM REINFORCING STEEL MACHINE OPERATOR us Ebony Lee MD LAB BILL ONLY Final Result [facility] [employer] [facility] [address] [place] [address], * PERIPHERAL BLD MORPHOLOGY (05/13/2024 7:30 PM REINFORCING STEEL MACHINE OPERATOR) Case Report Special Hematology Report Case: [id number] Authorizing Provider: Ebony Lee, Collected: 05/13/20241929 Ordering Location: [facility] Received: 05/15/2024 0718 Pathologist: Ignacio Trammell MD Specimen: Peripheral Blood 05/20/2024 12:37 PM REINFORCING STEEL MACHINE OPERATOR [facility] ENTRAL LABORATORY Amendment 05/20/2024 - Absolute lymphocyte count corrected. 05/20/2024 12:37 PM REINFORCING STEEL MACHINE OPERATOR [facility] [employer]-[facility] ENTRAL LABORATORY Final Diagnosis PERIPHERAL BLOOD: 1. Moderate normocytic anemia 2. Moderate thrombocytopenia 3. Leukopenia with normal differential counts 4. See comment 05/20/2024 12:37 PM REINFORCING STEEL MACHINE OPERATOR [facility]AL LABORAT[facility] Amendment electronically signed by Ignacio Trammell MD on 05/20/2024 at 1237 REINFORCING STEEL MACHINE OPERATOR at 1139 REINFORCING STEEL MACHINE OPERATOR Comment The specific etiology of the anemia [...] also reviewed by Destiny Hylton MT, MS ([facility]). 05/20/2024 12:37 PM REINFORCING STEEL MACHINE OPERATOR [facility] [employer] [facility]-C ENTRAL LABORATORY Clinical Information The patient is not 83-year-old female. Per CBC scan: Anemia, leukopenia, and thrombocytopenia. Per EPIC: Additional history includes hypertension, rheumatoid arthritis, and hypertensive kidney disease. She is currently receiving prednisone. 05/20/2024 12:37 PM REINFORCING STEEL MACHINE OPERATOR [facility] [employer] [facility]-C ENTRAL LABORATORY CBC and Differential HEMATOLOGY PARAMETERS Tested at: [facility] Located Within [facility] RESULTS EXPECTED VALUES WBC: 3.0 4.5-53n2497/cumm DECREASED RBC: 2.25 4.00-5.20 mil/cummDECREASED HGB: 7.4 12-16 gm/dl DECREASED HCT: 21.9 33-51% DECREASED MCV: 97.0 80-100 fl NORMOCYTIC MCH: 32.9 26-34 pg MCHC: 33.8 32-36 gm/dl NORMOCHROMIC RDW: 232 11.5-15.5% ELEVATED PLT: 69 [id number]/uL DECREASED Retic: 0.5 0.5-1.5% Differential Absolute (%) Expected (%) (x10*9/L) (x10*9/L) Neutrophils: 1.9932 (66) 1.7-7.0 (42-72%) Lymphocytes: 0.8758 (29) 0.9-2.9 (20-44%) DECREASED Eosinophils: 0.1 (3.3) <0.5 (0-2%) 05/20/2024 12:37 PM REINFORCING STEEL MACHINE OPERATOR [facility] [employer] [facility]-C ENTRAL LABORATORY Microscopic Description The final diagnosis is based on microscopic examination of an appropriately stained blood smear. 05/20/2024 12:37 PM REINFORCING STEEL MACHINE OPERATOR [facility] ENTRAL LABORATORY Additional Information Interpreted at [facility] Central Laboratory - [address] [place] [address] [facility] [address] [address] 05/20/2024 12:37 PM REINFORCING STEEL MACHINE OPERATOR [facility] [employer] [facility]-C ENTRAL LABORATORY Blood (Peripheral Blood) 05/13/2024 7:30 PM REINFORCING STEEL MACHINE OPERATOR 05/15/2024 7:18 AM REINFORCING STEEL MACHINE OPERATOR Ebony Lee MD HEMATOLOGY Edited Result - Final [facility]AL LABORATORY [address] [place] [address], [place] * (ABNORMAL) XR DXA BONE DENSITY [...] greater than 5 years. Na Valdivia PA-C [facility] 10/11/2022 Narrative 10/11/2022 2:15 PM CDT For Patients: Results are automatically released to your [facility] ([employer]) account once available, in compliance with federal regulations. This means that you may see your results before your provider has had a chance to review them. Please allow 2-3 business days for your provider to comment on the results. XR DXA Bone Mineral Density (BMD) EXAM LOCATION: [address] [address] PATIENT NAME: Vanessa Andino DATE OF : [...] two scanners are made by the same miter grinder operator. PROCEDURE: Dual-energy x-ray absorptiometry performed with [...] Most Recently Relevant to Health Maintenance Insurance [facility] [employer] MEDICARE ADVANTAGE MR MEDICARE PART A HB ONLY [place] BLUE HB ONLY MEDICARE PART B HB ONLY [place] BLUE MR PB ONLY Advance Directives Documents on File Type Date Recorded Patient Warrant Clerk Expl anation POLST 07/14/2017 8:01 AM 01/12/2017 Power of Back Hoe Operator 07/14/2017 7:57 AM 12/25 Healthcare Directive 07/14/2017 7:57 AM * Full Code (Latest Code Status on File) Date Activated Date Inactivated Comments 06/22/2024 12:56 AM 07/01/2024 4:10 PM Question Answer Comments Code Status Discussion: Unable to Assess Preferences, Provider to review later * Full Code Date Activated Date Inactivated Comments 07/12/2017 7:10 AM 07/14/2017 4:57 PM * Full Code Date Activated Date Inactivated Comments 05/11/2016 10:33 AM 05/11/2016 7:12 PM * Full Code Date Activated Date Inactivated Comments 05/04/2016 7:01 AM 05/04/2016 3:07 PM Care Teams Manager Multicultural Relationship Specialty Start Date End Date Constanza Cardozo MD [address] [place] [address] PCP - General Family Practice 08/25/22 [place], Beto A, FOOT ORTHOPEDIST [employer] 07/13/17 Sharif Nunez MD [address] [facility] [address] [place] [address] Rheumatology 10/08/21 Riley Camacho MD [address] [place] [address] Surgery - Urology 08/25/22 [place] [address] [place] [address] Endocrinology Endocrinology 04/02/24
--- NOTE | 2024-07-14 07:15 | ED_ITS ---
HPI - General Adult General Chief complaint: Nausea/Vomiting Stated complaint: nausea, vomiting Time Seen by Provider: 07/14/24 07:13 History of Present Illness HPI narrative: fell at home tonight, felt very weak and nauseous. lives home independent with fianc?. he called 911 due to fever/weak/ nausea. denies urinary symptoms, denies recent sick contacts. on scene patients temp. 101 for EMS, patient reports chills. recent hospital stay at [facility] for what patient says was low hbg. 83-year-old woman presenting to the emergency department with concern of weakness and nausea. Is vomiting during triage. Became sick overnight. Does not have any pain abdominal or otherwise. Fiance helped her to the floor; she did not actually fall. Denies dysuria though she self caths for neurogenic bladder. EMS noted a temperature of 101?. She is feeling chilled. No noted exposures. No cough. Does have a wound on her left leg for which she is seeing wound care. Anticipating visit tomorrow. Relatively recent history of anemia and thrombocytopenia Related Data Home Medications ?Medication ?Instructions ?Recorded ?Confirmed aspirin 81 mg tablet,delayed 81 mg PO DAILY 10/04/21 05/30/24 release (Adult Aspirin Regimen) multivitamin (Multiple Vitamins 1 tab PO QDAY 11/26/21 06/21/24 tablet) alendronate 70 mg tablet 70 mg PO SILVA 02/28/22 06/21/24 calcium 600 mg (as 1 cap PO DAILY 02/28/22 06/21/24 carbonate)-vitamin D3 12.5 mcg (500 unit) capsule (Calcium with Vit D3) furosemide 20 mg tablet 20 mg PO BID 02/28/22 06/21/24 losartan 50 mg tablet 50 mg PO DAILY 02/28/22 06/21/24 acetaminophen 500 mg tablet 1,000 mg PO Q6H PRN 07/13/22 06/21/24 (Acetaminophen Extra Strength) methenamine hippurate 1 gram tablet 1 g PO BID 11/26/22 05/30/24 benzocaine 20 % mucosal gel 1 applic mucous membrane QID PRN 05/14/24 05/30/24 clotrimazole 1 % topical cream 1 applic topical BID 05/14/24 05/30/24 prednisone 1 mg tablet 2 mg PO DAILY 05/14/24 05/30/24 Previous Rx's ?Medication ?Instructions ?Recorded Magic Mouthwash 5 ml PO Q4H PRN #120 mL 05/04/24 (Lidocaine/Benadryl/Maalox) 120 mL suspension apixaban 5 mg tablet (Eliquis) 5 mg PO BID #60 tabs 05/30/24 Allergies Allergy/AdvReac Type Severity Reaction Status Date / Time clonidine Allergy Mild Hallucinati Verified 06/21/24 16:33 ng leflunomide Allergy Mild Hallucinati Verified 06/21/24 16:33 ng lisinopril Allergy Mild increased Verified 06/21/24 16:33 creatinine methotrexate Allergy Mild did not Verified 06/21/24 16:33 feel well hydrocodone Allergy Unknown Vomiting Verified 06/21/24 16:33 oxycodone Allergy Unknown Verified 06/21/24 16:33 Opioids - Morphine Analogues Allergy Verified 06/21/24 16:33 Sulfa (Sulfonamide Allergy Verified 06/21/24 16:33 Antibiotics) surgical glue Allergy Uncoded 04/30/24 18:36 Review of Systems Status of ROS: Reports: 6 or more systems reviewed and unremarkable except as noted in History and below [facility] Medical History Breast mass, right ?N63.10 - Unspecified lump in the right breast, unspecified quadrant (ICD-10) MRSA infection ?A49.02 - Methicillin resistant Staphylococcus aureus infection, unspecified site (ICD-10) Neurocardiogenic pre-syncope ?R55 - Syncope and collapse (ICD-10) Physical deconditioning ?R53.81 - Other malaise (ICD-10) Closed fracture of distal radius and ulna ?S52.509A - Unspecified fracture of the lower end of unspecified radius, initial encounter for closed fracture (ICD-10) ?S52.609A - Unspecified fracture of lower end of unspecified ulna, initial encounter for closed fracture (ICD-10) Post-traumatic osteoarthritis, left wrist ?M19.132 - Post-traumatic osteoarthritis, left wrist (ICD-10) Closed fracture of left distal radius ?S52.502A - Unspecified fracture of the lower end of left radius, initial encounter for closed fracture (ICD-10) Closed fracture of left proximal humerus ?S42.202A - Unspecified fracture of upper end of left humerus, initial encounter for closed fracture (ICD-10) Lower extremity edema ?R60.0 - Localized edema (ICD-10) Pneumonia ?J18.9 - Pneumonia, unspecified organism (ICD-10) Sepsis ?A41.9 - Sepsis, unspecified organism (ICD-10) Gram-negative bacteremia ?R78.81 - Bacteremia (ICD-10) Lung nodules ?R91.8 - Other nonspecific abnormal finding of lung field (ICD-10) Sensorineural hearing loss, bilateral ?H90.3 - Sensorineural hearing loss, bilateral (ICD-10) Prediabetes ?R73.03 - Prediabetes (ICD-10) Presence of neurostimulator ?Z96.82 - Presence of neurostimulator (ICD-10) Sacral nerve stimulator present ?Z96.82 - Presence of neurostimulator (ICD-10) Recurrent urinary tract infection ?N39.0 - Urinary tract infection, site not specified (ICD-10) Hyperlipidemia ?E78.5 - Hyperlipidemia, unspecified (ICD-10) History of DVT (deep vein thrombosis) ?Z86.718 - Personal history of other venous thrombosis and embolism (ICD-10) Stage 3 chronic kidney disease ?N18.30 - Chronic kidney disease, stage 3 unspecified (ICD-10) Rheumatoid arthritis ?M06.9 - Rheumatoid arthritis, unspecified (ICD-10) High blood pressure ?I10 - Essential (primary) hypertension (ICD-10) Osteoarthritis ?M19.90 - Unspecified osteoarthritis, unspecified site (ICD-10) Surgical History S/P ORIF (open reduction internal fixation) fracture (12/06/21) ?Z98.890 - Other specified postprocedural states (ICD-10) ?Z87.81 - Personal history of (healed) traumatic fracture (ICD-10) S/P ORIF (open reduction internal fixation) fracture ?Z98.890 - Other specified postprocedural states (ICD-10) ?Z87.81 - Personal history of (healed) traumatic fracture (ICD-10) S/P total knee arthroplasty ?Z96.659 - Presence of unspecified artificial knee joint (ICD-10) H/O hysterectomy with oophorectomy History of cholecystectomy ?Z90.49 - Acquired absence of other specified parts of digestive tract (ICD- 10) Family History Mother Stroke Rheumatoid arthritis Brother Diabetes Coronary artery disease Father Pancreatic cancer Social History Narrative: patient lives independently with her significant other, Cirilo Chambers. She has a niece, Peg. Those 2 would be healthcare power of immigration attorney. Code status is full. What is your current living situation?: I presently have a place to live Problems where you live: no known problems Problems where you live details: NA In the past 12 months, utilities in danger of being shut off: no In past 12 months, lack of transportation kept you from medical appts, meetings, work, or getting things needed for daily living: no In the past 12 mos, have been you worried that your food would run out before you had money to buy more?: never true In the past 12 mos, the food you bought just didn't last and you didn't have money to buy more?: never true Highest level of school completed/degree received: Associate degree: occupational, technical, vocational program Smoking Status: Never smoker Do you use any of these nicotine containing products: None Second hand tobacco smoke exposure: No How often do you have a drink containing alcohol: never How often do you have six or more drinks on one occasion: Never AUDIT-C Alcohol total score: 0 Non-prescribed substance use: denies use Caffeine: Yes How often does anyone, including family, friends and others, physically hurt you : never How often does anyone, including family, friends and others, insult or talk down to you: never How often does anyone, including family, friends and others, threaten you with harm: never How often does anyone, including family, friends and others, scream or curse at you: never Gender Identity: female Are you using contraception or practicing any form of control: No service: No Exam Narrative: Exam Narrative: Does appear fatigued. Attended to by fiance. Breathing easily. Heart in elevated rate but regular rhythm. Lungs with trace mid lung crepitus bilaterally. Quite kyphotic. Abdomen is protuberant soft and nontender. Skin is quite warm. Lower extremities with trace pretibial edema. Well-perfused. There is a Mepilex approximately 2 in dressing on the left lower inner leg. I do not see any surrounding erythema or induration. Const: Vital Signs, click to edit/add: Vital Signs - 24 hr 07/14/24 07:03 Temperature 98.9 F Pulse Rate [Pulse Oximeter] 103 H Respiratory Rate 20 Blood Pressure [Ri ght Upper Arm] 184/87 H Pulse Oximetry 95 Oxygen Delivery Me thod Room Air Documenting provider has reviewed patient's vital signs: yes Course Vital Signs Vital signs: Initial Vital Signs Temperature 98.9 F 07/14/24 07:03 Temperature Source Temporal Artery Scan 07/14/24 07:03 Pulse Rate 103 H 07/14/24 07:03 Respiratory Rate 20 07/14/24 07:03 Blood Pressure 184/87 H 07/14/24 07:03 Blood Pressure Mean 119 H 07/14/24 07:03 Blood Pressure Position Supine 07/14/24 07:03 Pulse Oximetry 95 07/14/24 07:03 Oxygen Delivery Method Room Air 07/14/24 07:03 Vital Signs Temperature 98.9 F 07/14/24 07:03 Pulse Rate 103 H 07/14/24 07:03 Respiratory Rate 20 07/14/24 07:03 Blood Pressure 184/87 H 07/14/24 07:03 Pulse Oximetry 95 07/14/24 07:03 Oxygen Delivery Method Room Air 07/14/24 07:03 Temperature 98.9 F 07/14/24 07:03 Pulse Rate 103 H 07/14/24 07:03 Respiratory Rate 20 07/14/24 07:03 Blood Pressure 184/87 H 07/14/24 07:03 Pulse Oximetry 95 07/14/24 07:03 Oxygen Delivery Method Room Air 07/14/24 07:03 Medications Administered Medications: Generic Name Dose Route Start Last Admin Trade Name Freq PRN Reason Stop Dose Admin Lactated Ringer's 1,000 mls @ 1,000 mls/hr 07/14/24 07:42 07/14/24 07:44 Lactated Ringers 1000 Ml IV 07/14/24 08:41 1,000 mls/hr .Q1H ONE Administration Discontinued Medications Generic Name Dose Route Start Last Admin Trade Name Freq PRN Reason Stop Dose Admin Ondansetron HCl 4 mg 07/14/24 07:24 07/14/24 07:42 Ondansetron 2 Mg/Ml Inj IVP 07/14/24 07:25 4 mg ONCE ONE Administration Medical Decision Making MDM Narrative Medical decision making narrative: Here with initial presentation of vomiting and weakness with measured fever by EMS. Will initiate treatment for symptoms with Zofran and IV normal saline -- this was changed to LR as available. Ordered for 1 L at this point Swabs for COVID and influenza are pending. Draw blood cultures as well as she does arrive tachycardic this might be more of a sepsis picture. Standard labs. Chest x-ray. Acetaminophen Chest x-ray independently reviewed by me looks to show some congestion maybe atelectasis. No clear infiltrate Radiology over-read noting no new infiltrate. INDICATION: Fever. TECHNIQUE: Chest 1 views. COMPARISON: X-ray chest May 14, 2024 FINDINGS/IMPRESSION: No new pulmonary infiltrate or patchy airspace opacity to suspect consolidation. No effusion or pneumothorax. Cardiac size is stable. No pulmonary edema. Dictated by Tucker Flores MD @ 07/14/2024 7:45:15 AM Will need to hand off at change of shift. Disposition likely determined by concerning findings on labs or persistent weakness in acute illness that might prevent her from managing at home in the short term. I do not think this is a bowel obstruction. I do not think that this wound is a source of current illness. Medical Records Medical records reviewed: Yes I reviewed the patient's medical records Discharge Plan Discharge Clinical Impression: Vomiting, Fever Prescriptions: No Action methenamine hippurate 1 gram tablet 1 g PO BID multivitamin [Multiple Vitamins] Tablet 1 tab PO QDAY aspirin [Adult Aspirin Regimen] 81 mg tablet,delayed release (DR/EC) 81 mg PO DAILY Magic Mouthwash (Lidocaine/Benadryl/Maalox) 120 mL suspension 5 ml PO Q4H PRNQty: 120 0RF Rx Instructions: Lidocaine Viscous 2 % mucosal solution 40 mL; Maalox 200 mg-200 mg-20 mg/5 mL oral suspension 40 mL; Benadryl 12.5 mg/5 mL oral elixir 40 mL; Per 120 mL SWISH AND SPIT. MAY COMPOUND IF FIRST PRODUCT IS NOT AVAILABLE. Eliquis 5 mg tablet 5 mg PO BID Qty: 60 0RF Rx Instructions: 10 mg twice daily for 7 days. Then 5 mg twice a day until follow up. calcium carbonate-vitamin D3 [Calcium 600 with Vitamin D3] 600 mg-12.5 mcg (500 unit) capsule 1 cap PO DAILY losartan 50 mg tablet 50 mg PO DAILY furosemide 20 mg tablet 20 mg PO BID alendronate 70 mg tablet 70 mg PO SILVA Patient Comments: TAKE 1 TABLET BY MOUTH EVERY 7 DAYS ON AN EMPTY STOMACH. REMAIN UPRIGHT FOR 30 MINUTES. TAKE WITH 8 OUNCES OF WATER acetaminophen [Acetaminophen Extra Strength] 500 mg tablet 1,000 mg PO Q6H PRN prednisone 1 mg tablet 2 mg PO DAILY benzocaine 20 % gel 1 applic MUCOUS MEMBRANE QID PRN Rx Instructions: Apply 0.5 g topically to affected area(s) 4 times daily if needed for Tooth Pain (for lip pain). Apply a thin layer to affected areas inside mouth up to 4 times daily. clotrimazole 1 % cream 1 applic TOPICAL BID Rx Instructions: Apply topically to affected area(s) two times daily. Follow Up/Referrals: Constanza Cardozo MD [Primary Care Provider] -
--- NOTE | 2024-07-14 07:23 | CRLHL7_ITS ---
For Patients: As a result of the Century Cures Act, medical imaging exams and procedure reports are released immediately into your electronic medical record. You may view this report before your referring provider. If you have questions, please contact your health care provider. INDICATION: Fever. TECHNIQUE: Chest 1 views. COMPARISON: X-ray chest May 14, 2024 FINDINGS/IMPRESSION: No new pulmonary infiltrate or patchy airspace opacity to suspect consolidation. No effusion or pneumothorax. Cardiac size is stable. No pulmonary edema. Dictated by Tucker Flores MD @ 07/14/2024 7:45:15 AM (Electronically Signed)
[2024-07-14] MEDS: ONDANSETRON 2 MG/ML inj 4 MG IVP (07:42)
[2024-07-14 07:44] LABS: Basophils Percent Auto 0.2 % (0.0-3.0); Hematocrit 35.5 % (33.0-51.0); Hemoglobin* 11.4 gm/dL (12.0-16.0); Immature Granulocytes Pct Auto 0.4 %; Lymphocytes Percent Auto 4.8 % (20-44); Mean Corpuscular HGB Conc 32 gm/dL (32-36); Mean Corpuscular Hemoglobin 32 pg (26-34); Mean Corpuscular Volume 100 fL (80-100); Monocytes Percent Auto 1.8 % (0.0-11.0); Neutrophils Percent Auto 92.8 % (42.0-72.0); Platelet Count* 375 K/uL (140-440); RDW Coefficient of Variation % 20.8 % (11.5-15.5); Red Blood Count 3.54 m/uL (4.00-5.20)
[2024-07-14] MEDS: LACTATED RINGERS 1000 ML 1,000 ML IV (07:44)
--- OUTSIDE RECORDS SUMMARY | 2024-07-14 07:49 | XMS_ITS | Continuity of Care Document ---
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 Name Role Phone Sharif Nunez MD [...] Protein Dna Antibody, Single Strand Dna Antibody, Elim Ira Nuclear Antigen Antibodies CCP Antibody Lyme Disease Antibody Rheumatoid Factor, IGM Rheumatoid Factor, IGG, IGA Vitamin D 25 Hydroxy Complete Cbc WAuto Diff Wbc Advance Directives Directive Yes / No Effective Date File Name No Information Encounters Encounter Description Practice Location Reason(s) For Visit Diagnoses Date Provider Providers Copied on Encounter [facility] , [address], [place], [address], [place] tel:[phone] [facility] , No Information 5 Mayra Olguin. [facility] [address], [place], [address], [place]. tel:[phone] Office/Outpa tient Visit, Est [facility] , [address], [place], [address], [place] tel:[phone] [facility] , Follow Up of Seropositive rheumatoid arthritis (chief complaint)Os teoporosis (chief complaint)Os teoarthritis (chief complaint) Rheumatoid arthritis with rheumatoid factor of multiple sites without organ or systems involvementA ge-related osteoporosis without current pathological fractureLong term (current) use of systemic steroidsOthe r [facility] ([facility]) drug therapyCellu litis of left lower limb 4 Mayra Olguin. [facility] [address], [place], [address], [place]. tel:[phone] Referring Provider: Sharif Phipps, [facility] [address], [place], [address]. tel:[phone] Office/Outpa tient Visit, Est [facility] , [address], [place], [address], [place] tel:[phone] [facility] , Follow Up of Seropositive rheumatoid arthritis (chief complaint)Os teoporosis (chief complaint)Os teoarthritis (chief complaint) Rheumatoid arthritis with rheumatoid factor of multiple sites without organ or systems involvementA ge-related osteoporosis without current pathological fractureLong term (current) use of systemic steroidsOthe r [facility] (current) drug therapyCellu litis of left lower limb Sep-0 4 Mayra Olguin. [facility] [address], [place], [address], [place]. tel:[phone] Referring Provider: Sharif Phipps, [facility] [address], [place], [address]. tel:[phone] Office/Outpa tient Visit, Est [facility] , [address], [place], [address], [place] tel:[phone] [facility] , Follow Up of Seropositive rheumatoid arthritis (chief complaint)Os teoporosis (chief complaint)Os teoarthritis (chief complaint) Rheumatoid arthritis with rheumatoid factor of multiple sites without organ or systems involvementA ge-related osteoporosis without current pathological fractureLong term (current) use of systemic steroidsOthe r [facility] ([facility]) drug therapyCellu litis of left lower limb Ozzy-0 4 Mayra Olguin. [facility] [address], [place], [address], [place]. tel:[phone] Referring Provider: Sharif Phipps [facility] [address], [place], [address]. tel:[phone] Office/Outpa tient Visit, Est [facility] , [address], [place], [address], [place] tel:[phone] [facility] , Follow [...] [address], [place], [address], [place]. tel:[phone] Referring Provider: Sharif Phipps, [facility] [address], [place], [address]. tel:[phone] Office/Outpa tient Visit, Est [facility] , [address], [place], [address], [place] tel:[phone] [facility] , Follow Up of Seropositive rheumatoid arthritis (chief complaint)Os teoporosis (chief complaint)Os teoarthritis (chief complaint) Rheumatoid arthritis with rheumatoid factor of multiple sites without organ or systems involvementA ge-related osteoporosis without current pathological fractureLong term (current) use of systemic steroidsOthe r [facility] (current) drug therapyCellu litis of left lower limb 3 Mayra Olguin. [facility] [address], [place], [address], [place]. tel:[phone] Referring Provider: Sharif Phipps [facility] [address], [place], [address]. tel:[phone] Office/Outpa tient Visit, Est [facility] , [address], [place], [address], [place] tel:[phone] [facility] , Follow [...] [address], [place], [address], [place]. tel:[phone] Referring Provider: Sharif Phipps, [facility] [address], [place], [address]. tel:[phone] Office/Outpa tient Visit, Est [facility] , [address], [place], [address], [place] tel:[phone] [facility] , Follow [...] [address], [place], [address], [place]. tel:[phone] Referring Provider: Sharif Phipps, [facility] [address], [place], [address]. tel:[phone] Office/Outpa tient Visit, Est [facility] , [address], [place], [address], [place] tel:[phone] [facility] , Follow Up of Seropositive rheumatoid arthritis (chief complaint)Os teoporosis (chief complaint)Os teoarthritis (chief complaint) Rheumatoid arthritis with rheumatoid factor of multiple sites without organ or systems involvementO ther low back painAge-rela sheryl osteoporosis without current pathological fractureLong term (current) use of systemic steroidsOthe r [facility] ([facility] drug therapy 3 Mayra Olguin. [facility] [address], [place], [address], [place]. tel:[phone] Referring Provider: Sharif Phipps, [facility] [address], [place], [address]. tel:[phone] Office/Outpa tient Visit, Est [facility] , [address], [place], [address], [place] tel:[phone] [facility] , Follow Up of Seropositive rheumatoid arthritis (chief complaint)Os teoporosis (chief complaint)Os teoarthritis (chief complaint) Rheumatoid arthritis with rheumatoid factor of multiple sites without organ or systems involvementO ther low back painAge-rela sheryl osteoporosis without current pathological fractureLong term (current) use of systemic steroidsOthe r supervisor intermediates (current) drug therapy 2 Mayra Olguin. [facility] [address], [place], [address], [place]. tel:[phone] Referring Provider: Sharif Phipps, [facility] [address], [place], [address]. tel:[phone] Office/Outpa tient Visit, Est [facility] , [address], [place], [address], [place] tel:[phone] [facility] , Follow Up of Seropositive rheumatoid arthritis (chief complaint)Os teoporosis (chief complaint)Os teoarthritis (chief complaint) Rheumatoid arthritis with rheumatoid factor of multiple sites without organ or systems involvementO ther low back painAge-rela sheryl osteoporosis without current pathological fractureLong term (current) use of systemic steroidsOthe r supervisor intermediates (current) drug therapy Ozzy- 2 Mayra Mcdonald [facility] [address], [place], [address], [place]. tel:[phone] Referring Provider: Sharif Phipps, [facility] [address], [place], [address]. tel:[phone] Office/Outpa tient Visit, Est [facility] , [address], [place], [address], [place] tel:[phone] [facility] , Follow Up of Seropositive rheumatoid arthritis (chief complaint)Os teoporosis (chief complaint)Os teoarthritis (chief complaint) Rheumatoid arthritis with rheumatoid factor of multiple sites without organ or systems involvementA ge-related osteoporosis without current pathological fractureLong term (current) use of systemic steroidsOthe r supervisor intermediates (current) drug therapyOther low back pain May-0 2 Mayra Olguin. [facility] [address], [place], [address], [place]. tel:[phone] Referring Provider: Sharif Phipps, [facility] [address], [place], [address]. tel:[phone] Office/Outpa tient Visit, Est [facility] , [address], [place], [address], [place] tel:[phone] [facility] , Follow Up of Seropositive rheumatoid arthritis (chief complaint)Os teoporosis (chief complaint)Os teoarthritis (chief complaint) Rheumatoid arthritis with rheumatoid factor of multiple sites without organ or systems involvementH allucination Eric-related osteoporosis without current pathological fractureOthe r [facility] (current) drug therapyLong term (current) use of systemic steroids 1 Mayra Mcdonald [facility] [address], [place], [address], [place]. tel:[phone] Referring Provider: Sharif Phipps, [facility] [address], [place], [address]. tel:[phone] Office/Outpa tient Visit, Est [facility] , [address], [place], [address], [place] tel:[phone] [facility] , Follow Up of Seropositive rheumatoid arthritis (chief complaint)Os teoporosis (chief complaint)Os teoarthritis (chief complaint) Rheumatoid arthritis with rheumatoid factor of multiple sites without organ or systems involvementH allucination Eric-related osteoporosis without current pathological fractureOthe r [facility] (current) drug therapyLong term (current) use of systemic steroids Nov- 1 Mayra Mcdonald [facility] [address], [place], [address], [place]. tel:[phone] Referring Provider: Sharif Phipps, [facility] [address], [place], [address]. tel:[phone] Office/Outpa tient Visit, Est [facility] , [address], [place], [address], [place] tel:[phone] [facility] , Follow Up of Seropositive rheumatoid arthritis (chief complaint)Os teoporosis (chief complaint) Rheumatoid arthritis with rheumatoid factor of multiple sites without organ or systems involvementO [facility]r [facility] ([facility]) drug therapyLong term (current) use of systemic steroidsAge- related osteoporosis without current pathological fracture Apr- 1 Mayra Mcdonald [facility] [address], [place], [address], [place]. tel:[phone] Referring Provider: Sharif Phipps, [facility] [address], [place], [address]. [phone] Office/Outpa tient Visit, Est [facility] , [address], [place], [address], [place] tel:[phone] [facility] , Follow Up of Seropositive rheumatoid arthritis (chief complaint) Rheumatoid arthritis with rheumatoid factor of multiple sites without organ or systems involvementA bnormal weight lossAge-rela sheryl osteoporosis without current pathological fractureOthe r [facility] (current) drug therapyLong term (current) use of systemic steroids 1 Mayra Mdconald [facility] [address], [place], [address], [place]. [phone] Referring Provider: Sharif Phipps, [facility] [address], [place], [address]. tel:[phone] Office/Outpa tient Visit, Est [facility] , [address], [place], [address], [place] tel:[phone] [facility] , Follow Up of Seropositive rheumatoid arthritis (chief complaint) Rheumatoid arthritis with rheumatoid factor of multiple sites without organ or systems involvementO ther supervisor intermediates (current) drug therapyLong term (current) use of systemic steroids 0 Mayra Mcdonald [facility] [address], [place], [address], [place]. tel:[phone] Referring Provider: Sharif Phipps, [facility] [address], [place], [address]. tel:[phone] Office/Outpa tient Visit, Est [facility] , [address], [place], [address], [place] tel:[phone] [facility] , Follow Up of seropositive rheumatoid arthritis (chief complaint) Rheu arthritis w rheu factor mult site w/o org/sys involvAge-re lated osteoporosis w/o current pathological fractureOthe r [facility] (current) drug therapyLong term (current) use of systemic steroids 0 Mayra Mcdonald [facility] [address], [place], [address], [place]. tel:[phone] Referring Provider: Sharif Phipps, [facility] [address], [place], [address]. tel:[phone] Office/Outpa tient Visit, Est [facility] , [address], [place], [address], [place] tel:[phone] [facility] , Follow Up of seropositive rheumatoid arthritis (chief complaint) Rheu arthritis w rheu factor mult site w/o org/sys involvPrimar y generalized (osteo)arthr itisAge-rela sheryl osteoporosis w/o current pathological fractureOthe r [facility] (current) drug therapyLong term (current) use of systemic steroids 0 Mayra Mcdonald [facility] [address], [place], [address], [place]. tel:[phone] Referring Provider: Sharif Phipps, [facility] [address], [place], [address]. tel:[phone] Phone E/M By Phys 11-20 Min [facility] , [address], [place], [address], [place] tel:[phone] Telehealth Follow Up of seropositive rheumatoid arthritis (chief complaint)os teoarthritis (chief complaint) Rheu arthritis w rheu factor mult site w/o org/sys involvPrimar y generalized (osteo)arthr itisOther supervisor intermediates (current) drug therapy 0 Mayra Olguin. [facility] [address], [place], [address], [place]. tel:[phone] Referring Provider: Sharif Phipps, [facility] [address], [place], [address]. tel:[phone] Office/Outpa tient Visit, Est [facility] , [address], [place], [address], [place] tel:[phone] [facility] , Follow Up of seropositive rheumatoid arthritis (chief complaint) Rheu arthritis w rheu factor mult site w/o org/sys involvCarpal tunnel syndrome, right upper limbAbnormal weight lossOther supervisor intermediates (current) drug therapyLong term (current) use of systemic steroids 0 Mayra Olguin. [facility] [address], [place], [address], [place]. tel:[phone] Referring Provider: Sharif Phipps, [facility] [address], [place], [address]. tel:[phone] Office/Outpa tient Visit, Est [facility] , [address], [place], [address], [place] tel:[phone] [facility] , Follow Up of seropositive rheumatoid arthritis (chief complaint) Rheu arthritis w rheu factor mult site w/o org/sys involvCarpal tunnel syndrome of right armPain in right shoulderOthe r supervisor intermediates (current) drug therapyLong term (current) use of systemic steroids 9 Mayra Olguin. [facility] [address], [place], [address], [place]. tel:[phone] Referring Provider: Sharif Phipps, [facility] [address], [place], [address]. tel:[phone] Office/Outpa tient Visit, Est [facility] , [address], [place], [address], [place] tel:[phone] [facility] , Follow Up of seropositive rheumatoid arthritis (chief complaint) Rheu arthritis w rheu factor mult site w/o org/sys involvOther [facility] ([facility]) drug therapyLong term (current) use of systemic steroids Mayra Olguin. [facility] [address], [place], [address], [place]. tel:[phone] Referring Provider: Sharif Phipps, [facility] [address], [place], [address]. tel:[phone] Office/Outpa tient Visit, Est [facility] , [address], [place], [address], [place] tel:[phone] [facility] , Follow Up of seropositive rheumatoid arthritis (chief complaint) Rheu arthritis w rheu factor mult site w/o org/sys involvOther [facility] ([facility]) drug therapyLong term (current) use of systemic steroids Mayra Olguin. [facility] [address], [place], [address], [place]. tel:[phone] Referring Provider: Sharif Phipps, [facility] [address], [place], [address]. tel:[phone] Office/Outpa tient Visit, Est [facility] , [address], [place], [address], [place] tel:[phone] [facility] , Follow Up of seropositive rheumatoid arthritis (chief complaint) Rheu arthritis w rheu factor mult site w/o org/sys involvDry eye syndrome of bilateral lacrimal glandsXerost omiaNasal congestionPr uritusOsteop orosisOther [facility] ([facility]) drug therapyLong term (current) use of systemic steroids Mayra Olguin. [facility] [address], [place], [address], [place]. tel:[phone] Referring Provider: hSarif Phipps, [facility] [address], [place], [address]. tel:[phone] Office/Outpa tient Visit, Est [facility] , [address], [place], [address], [place] tel:[phone] [facility] , Follow Up of seropositive rheumatoid arthritis (chief complaint) Rheu arthritis w rheu factor mult site w/o org/sys involvConjun ctivitisAge- related osteoporosis w/o current pathological fractureOthe r [facility] (current) drug therapyLong term (current) use of systemic steroids Mayra Olguin. [facility] [address], [place], [address], [place]. tel:[phone] Referring Provider: Sharif Phipps, [facility] [address], [place], [address]. tel:[phone] Office/Outpa tient Visit, Est [facility] , [address], [place], [address], [place] tel:[phone] [facility] , Follow Up of seropositive rheumatoid arthritis (chief complaint) Seropositive RA of multiple sites w/o organ involvementP ain in left kneeAge-rela sheryl osteoporosis w/o current pathological fractureOthe r [facility] ([facility]) drug therapy 8 Mayra Olguin. [facility] [address], [place], [address], [place]. tel:[phone] Referring Provider: Sharif Phipps, [facility] [address], [place], [address]. tel:[phone] Office/Outpa tient Visit, New [facility] , [address], [place], [address], [place] tel:[phone] [facility] , Inflammatory Polyarthropa thy (chief complaint) Inflammatory polyarthropa thyAge-relat ed osteoporosis w/o current pathological fracturePrim gutierrez generalized osteoarthrit isType 2 diabetes mellitus without complication sLong term use of systemic steroids 8 Mayra Olguin. [facility] [address], [place], [address], [place]. tel:[phone] Referring Provider: Sharif Phipps, [facility] [address], [place], [address]. tel:[phone] [facility] , [address], [place], [address], [place] tel:[phone] [facility] , No Information 8 Mayra Olguin. [facility] [address], [place], [address], [place]. tel:[phone] Family History Family Member Type Diagnosis Age At Onset Son Problem (finding) stroke Mother Problem (finding) Arthritis Immunizations Vaccine Date Status Comments COVID-19 Piloa administered Source: Oth er Provider COVID-19 Moderna administered Source: Oth er Provider COVID-19 Moderna administered Source: Oth er Provider Payers Payer name Insurance type Covered green party ID Authoriza tiryann(s) [employer] Advantage/[employer] BL [id number] Social History Type Description Quantity Date Captured [...] or systems involvement This is managed at [facility]. For this and multiple other reasons I still would like to taper her off of the prednisone if possible although that has been difficult. Related to Age-related osteoporosis without current pathological fracture See discussion above regarding the prednisone. 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 Related to Age-related osteoporosis without current pathological fracture See discussion above regarding the prednisone. 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 Related to Age-related osteoporosis without current pathological fracture At this point, I do not feel like it is urgent to taper this very low-dose of prednisone despite her history of osteoporosis. She simply does not do well with lower dose. 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 She has a Plaquenil eye exam scheduled next month. Related to [facility] drug [facility] She had an MRSA [...] do well with lower dose. Related to [facility] (current) use of systemic steroids She will [...] well with any lower dose. Related to [facility] (current) use of systemic steroids She will have routin e laboratories today for monitoring medications and disease. Related to [facility] She had a recent ivory lulitis involving the left lower leg. The actual ulcerated area is healed over with scab but is squeegee tender in the dry area. I recommended [...] her prednisone dose as tolerated. Related to equipment [employer] (current) use of systemic steroids She will [...] her prednisone dose as tolerated. 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 Related to [facility] drug therapy Her rheumatoid arthr itis [...] taper of her prednisone dose. 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 Related to [facility] drug therapy She is still doing [...] taper of her prednisone dose. Related to [facility] (current) use of systemic steroids She will have routin e laboratories today for monitoring medications and disease. Related to [facility] (current[facility] drug therapy See discussion above regarding very slow taper of her prednisone dose. Related to [facility] (current) use of systemic steroids She is [...] monitoring medications and disease. Related to [facility] (current) drug therapy Her last bone densit [...] supervisor intermediates (current) drug therapy She has done well [...] discussion above regarding the prednisone. Related to equipment [employer] (current) use of systemic steroids See discussion above regarding the prednisone. Related to equipment [employer] (current) use of systemic steroids She will [...] monitoring medications and disease. Related to [facility] ([facility] drug therapy Although she is stil [...] monitoring medications and disease. Related to [facility] (current) drug therapy Her rheumatoid arthr itis [...] systems involvement See discussion above. Related to [facility] (current) use of systemic steroids Her rheumatoid [...] monitoring medications and disease. Related to [facility] ([facility]) drug therapy Her generalized oste oarthritis [...] I last saw her. Related to [facility] drug therapy It is difficult for me to say, via phone consultation, how much of her recent increase in symptoms was related to rheumatoid arthritis versus osteoarthritis. Nevertheless, she is feeling better again now on her combination of low-dose prednisone, still low-dose although increased methotrexate, and full dose Plaquenil along with a very low dose of nwwf-ycz-lsyulup ibuprofen. I did not recommend any change in her current regimen for now. Hopefully I can see her in person in 3 months. Related to Rheu arthritis w rheu factor mult site w/o org/sys involv See discussion above regarding tapering the prednisone. Related to [facility] (current) use of systemic steroids Her rheumatoid [...] to Other [employer] (current) drug therapy Oct-31-2019 See discussion above regarding the prednisone. Related to [facility] (current) use of systemic steroids She was [...] was in September 2018. Related to [facility] drug therapy Although the prednis one [...] arthritis w rheu factor mult site w/o org/[employer] involv She has right carpal tunnel syndrome, [...] of calcium and vitamin D. Related to [facility] (current) use of systemic steroids If anything, [...] of that forwarded to me. Related to [facility] (current) use of systemic steroids She has [...] monitoring medications and disease. Related to [facility] ([facility] drug therapy She likely has osteo [...] monitoring medications and disease. Related to [facility] (current[facility] drug therapy See discussion above regarding the prednisone. Related to [employer] (current) use of systemic steroids See discussion above . I recommended followup with her primary physician regarding this issue. It's possible that she might benefit from a saline nasal spray such as [place]. Related to Nasal congestion If this is [...] eyes and dry mouth. These will include avsu-him-eoiyvaf preservative-free artificial tears (I gave her specific [...] monitoring medications and disease. Related to [facility] drug therapy See discussion above regarding further taper of her prednisone dose. Related to [employer] (current) use of systemic steroids She is [...] I would like her to see an corn sheller operator to make sure that she does not [...] discussion above regarding the prednisone. Related to [facility] use of systemic steroids She has significant [...]
--- OUTSIDE RECORDS SUMMARY | 2024-07-14 07:50 | XMS_ITS | Clinical Summary ---
Author Organization [facility] Address [address] [place] [address] Care Team Providers Care It Consultant Name Role Phone Beto Taylor PERMANENT MOLD SUPERVISOR Unavailable [phone] Sharif Nunez MD Unavailable Riley Camacho MD Unavailable [phone] Constanza Cardozo MD Primary Care Provider Inga Caballero MD Unavailable [phone] Allergies Active Allergy Reactions Criticality Noted Date Comments Blood-Group Specific Substance Other - Describe In Comment Field 06/27/2024 Patient has an Anti-D antibody. Blood products may be delayed. Draw patient 24 hours prior to transfusion. For [facility] testing, draw one red top and two [...] magic mouthwash 1:1:1 (diphen 12.5mg/5mL-lidoc kim 2%-maalox [phone]/5ml ) oral suspension Swish and spit 5-10 [...] weekly d/t ckd - Endo E-consult at [place] 10/09/2020 with recommendation to continue fosamax for [...] She has hearing aids ([facility] in [place]). Obesity with body mass index 30 or greater 12/21 Arthritis, rheumatoid 08/17/2017 Overview (10/08/2021): RA Sees Dr. Nunez at [facility] [phone] fax [phone] Last Assessment & Plan: I went over [...] & Plan: She is here today because [facility] will not supply her with 6 catheters /day. They told her that medicare would only cover 4 catheters/day. She only has 10 catheters left and needs a supply. I contacted Verónica Escalante TRANSLATIONAL SPECIALIST [place] [facility]. She sees her on a routine basis. She will provide Vanessa with enough catheters to get by until her order from [facility] is delivered. She will drive to [place] to pickle cutter the catheters. I had sent Dr. Lopez's order and visit note to [facility] in [place]. Renay Renee will process the order and [...] Description 07/11/2024 1:30 PM CDT Office Visit [facility] [address] [place] [address] Constanza Cardozo MD Follow Up (Left leg wound ) 07/11/2024 Travel 07/09/2024 10:15 AM CDT Office Visit [facility] [address] [place] [address] Jamila Mckeon, FINESSE Follow Up (Pancytopenia) 07/09/2024 9:12 AM CDT - 07/09/2024 11:59 PM CDT Hospital Encounter [facility] [address] [place] [address] Pancytopenia (HC); Anemia, unspecified type 07/09/[address] [facility] [address] [facility] [place] [address] Jamila Mckeon, TRANSLATIONAL SPECIALIST <No scans attached> 07/09/2024 Travel 07/04/2024 12:40 PM CDT Office Visit [facility] [address] [place] [address] Constanza Cardozo MD Hospital F/U (Pancytopenia/-07/01/24) 07/03/2024 10:30 AM CDT - 07/03/2024 11:59 PM CDT Hospital Encounter [facility] [address] [facility] [place] [address] Pancytopenia (HC) 07/03/2024 Telephone [facility] [address] [place] [address] Constanza Cardozo MD Questions (Verbal Orders) 07/03/2024 Travel 07/02/[address] [facility] [address] [facility] [place] [phone] Jamila Mckeon, TRANSLATIONAL SPECIALIST <No scans attached> 07/02/2024 Patient Outreach [facility] [address] [place] [address] Lisa Maldonado, RN Primary RN Care Management; Hospital F/U (LACE 63) 06/21/2024 11:58 PM CDT - 07/01/2024 1:59 PM CDT Hospital Encounter [facility] [address] [place] [address] [facility] Hospitalists Of Rosie Joshi MD Caldwell, MD Rashel Nix, Nidhi Cooper MD Left lumbar radiculopathy (Primary Dx); Rheumatoid arthritis involving multiple sites with positive rheumatoid factor (HC); Methotrexate toxicity, accidental or unintentional, initial encounter; Mucositis Discharge Disposition: Home Health 06/21/2024 1:30 PM CDT Orders Only [facility] [address] [place] [address] Lab, [place] Lab 06/21/2024 Telephone [facility] [address] [place] [address] Constanza Cardozo MD Error-please disregard 06/21/[address] [facility] [address] [place] [address] Jamila Mckeon, TRANSLATIONAL SPECIALIST Appointment 06/21/2024 Travel 06/21/2024 Refill [facility] [address] [place] [address] Constanza Cardozo MD Refill Request (Eliquis) 06/19/2024 Refill [facility] [address] [place] [address] Constanza Cardozo MD Refill Request (lidocaine, viscous, 2% (XYLOCAINE) 2 % solution/) 06/17/2024 Patient Outreach [facility] Care Management - Advanced Care Team [address] [place] [address] Jamila Dempsey Medication Management (COMPREHENSIVE MEDICATION REVIEW - PROVIDER REFERRAL - unsure if covered) 06/13/2024 12:40 PM CDT Office Visit [facility] [address] [place] [address] Constanza Cardozo MD Hospital F/U (06/11 Er) 06/13/2024 Travel 06/04/2024 Travel 05/31/2024 Orders Only [facility] [place] [address] Constanza Cardozo MD Lab (CBC with differential ) 05/30/2024 Orders Only [facility] Scanner 1 scan: (1-Ord) [facility] VENOUS LE LT, 05/30/2024 05/30/2024 Nurse Triage [facility] [address] [place] [address] Constanza Cardozo MD Leg Pain/problem 05/27/2024 10:49 AM BRAND AMBASSADOR - 05/27/2024 11:59 PM BRAND AMBASSADOR Hospital Encounter [facility] [address] [facility] [place] [address] Pancytopenia (HC) 05/27/2024 10:15 AM BRAND AMBASSADOR Office Visit [facility] [address] [facility] [place] [address] Jamila Mckeon, TRANSLATIONAL SPECIALIST Consult 05/27/2024 Travel 05/23/2024 Orders Only [facility] Scanner 1 scan: (1-Ord) INCOMING RECORDS-CT, [facility], 05/23/2024 05/23/2024 Orders Only [facility] Scanner 1 scan: (1-Ord) INCOMING RECORDS-LABS, [facility], 05/23/2024 05/21/2024 Telephone [facility] [place] [address] [address] [facility] [place] [address] Jamila Mckeon, TRANSLATIONAL SPECIALIST Appointment 05/20/2024 11:15 AM BRAND AMBASSADOR Office Visit [facility] [address] [place] [address] Riley Marquis MD Hospital F/U ([place], 05/13/24, mucositis) 05/20/2024 Travel 05/17/2024 Telephone [facility] [address] [place] [address] Constanza Cardozo MD Error-please disregard 05/14/2024 Orders Only [facility] Scanner 1 scan: (1-Ord) [facility], MULTIPLE LABS, 05/14/2024 05/14/2024 Orders Only [facility] Scanner 1 scan: (1-Ord) [place], CT CHEST W CON, 05/14/2024 05/14/2024 Orders Only [facility] Scanner 1 scan: (1-Ord) [facility], XR CHEST 2V, 05/14/2024 05/14/2024 Lab Requisition [facility] [phone] Ebony Lee MD 05/06/2024 1:25 PM BRAND AMBASSADOR Office Visit [facility] [address] [place] [address] Riley Marquis MD Follow Up (oral sores- mouthwash does not seem to help ) 05/06/2024 Travel 05/06/2024 Nurse Triage [facility] [address] [place] [address] Constanza Cardozo MD Mouth Problem from Last 3 Months Immunizations Immunization Administration Dates Next Due COVID-19 VACCINE COMIRNATY ([employer]-BIONTECH 30MCG/0.3ML) 12YO+ PFS 02/13/2024 COVID-19 VACCINE SPIKEVAX (M ODERNA 50MCG/0.5ML) 12YO+ PFS 02/13/2023 COVID-19 vaccine (Moderna 100mcg/0.5mL) PF, MDV 08/25/2021,02/23/2021,08/03/2020,2020 COVID-19 vaccine (Frankly-Bio NTech 30mcg/0.3mL) 12YO+ BIVALENT PF, MDV 01/04/2022 [...] on file Legal Sex Female 3:06 PM BRAND AMBASSADOR Gender Identity Not on file Sexual Orientation [...] Body Mass Index 25.55 05/27/2024 10:06 AM BRAND AMBASSADOR Plan of Treatment Upcoming Encounters Date Type Department Care Team (Late st Contact Info) Description 07/23/2024 12:30 PM CDT Appointment [facility] [address] [place] [address] 08/06/2024 11:15 AM CDT Orders Only [facility] [address] [place] [address] Lab, [place] 08/08/2024 3:00 PM CDT Office Visit [facility] [address] [facility] [place] [address] Eliseo Dias MD [address] [address] 08/20/2024 12:45 PM CDT Orders Only [facility] [address] [place] [address] Lab, [place] 09/03/2024 12:45 PM CDT Orders Only [facility] [address] [place] [address] [place] 09/16/2024 12:45 PM CDT Orders Only [facility] [address] [place] [address] Lab, [place] 09/18/2024 12:45 PM CDT Office Visit [facility] [place] [facility] [address] [place] [address] Jamila Mckeon, TRANSLATIONAL SPECIALIST [address] [place] [address] 04/03/2025 2:15 PM BRAND AMBASSADOR Office Visit [facility] [address] [address] [place] [address] [place] [address] Health Maintenance Due Date Last Done Comments [...] history exists Medical Devices Implanted Type Area Security Shift Manager Device Identifier Shelf Expiration Date Model / Serial / Lot Lead Bladder 28cm Interstim Tined 3mm Spacing - [id number] Implanted:Qty: 1 on 05/04/2016 by Cesar Groves MD at [facility] N/A: Sacrum [employer] Pain Therapy 04/25/2020 3889-28# / / [id number] Stimulator 7.7mm 14cc Interstim Ii - [id number] Implanted:Qty: 1 on 05/11/2016 by Cesar Groves MD at [facility] N/A: Sacrum [employer] Pain Therapy 10/07/2017 3058# / / [id number] Cmnt Bone 40g Simplex P Non Atb Mv - [id number] Implanted:Qty: 2 on 07/12/2017 by Ignacio Mead MD at [facility] Right: Knee [employer] 04/26/2018 6191-1-010 # / / [id number] Cmnt Bone 40g Simplex P Non Atb Mv - [id number] Implanted:Qty: 1 on 07/12/2017 by Ignacio Mead MD at [facility] Right: Knee [employer] 04/26/2018 6191-1-010 # / / [id number] S6661-R-158 - [id number] Implanted:Qty: 1 on 07/12/2017 by Ignacio Mead MD at [facility] Right: Knee [employer] 04/27/2022 5551-G-350 / / [id number] Description:Triathlon X3 Asy mmetric patella W2212-U-602 - [id number] Implanted:Qty: 1 on 07/12/2017 by Ignacio Mead MD at [facility] Right: Knee [employer] 03/11/2022 5520-B-500 / / [id number] Description:Triathlon primar y tibial baseplate K8516-M-766 - [id number] Implanted:Qty: 1 on 07/12/2017 by Ignacio Mead MD at [facility] Right: Knee [employer] 05/21/2021 5510-F-502 / / [id number] Description:Triathlon crucia te retaining femoral R6555-I-550 - [id number] Implanted:Qty: 1 on 07/12/2017 by Ignacio Mead MD at [facility] Right: Knee 5531-G-50 9 / / [id number] Description:X3 triathlon CS INS Explanted Type Area Security Shift Manager Device Identifier Shelf Expiration Date Model / Serial / Lot Lead Intrdcr Bladder Interstim - [id number] Explanted:Qty: 1 on 05/04/2016 by Cesar Groves MD at [facility] N/A: Sacrum [employer] Pain Therapy 05/27/2017 3550-18# / / [id number] Procedures Procedure Name Priority Date/Time Associated Diagnosis Comments BLOOD BANK EXTRA [facility] TOP Today 07/09/2024 9:28 AM CDT [...] CDT Pancytopenia (HC) SCAN-ULTRASOUND REPORT 12:00 AM BRAND AMBASSADOR CWS PATH REVIEW HEMATOLOGY Timed 05/27/2024 11:00 AM BRAND AMBASSADOR Pancytopenia (HC) RED CELL MORPHOLOGY Timed 05/27/2024 1 1:00 AM BRAND AMBASSADOR Pancytopenia (HC) PLATELET ESTIMATE Timed 05/27/2024 11: 00 AM BRAND AMBASSADOR Pancytopenia (HC) MANUAL DIFFERENTIAL Timed 05/27/2024 1 1:00 AM BRAND AMBASSADOR Pancytopenia (HC) CBC WITH AUTO DIFFERENTIAL Timed 05/27/2024 11:00 AM BRAND AMBASSADOR Pancytopenia (HC) FERRITIN Today 05/27/2024 11:00 AM BRAND AMBASSADOR Pancytopenia (HC) IRON PLUS IRON BINDING CAP Today 05/27/2024 11:00 AM BRAND AMBASSADOR Pancytopenia (HC) HEPATIC FUNCTION PANEL Today 11:00 AM BRAND AMBASSADOR Pancytopenia (HC) BASIC METABOLIC PANEL Today 05/27/2024 11:00 AM BRAND AMBASSADOR Pancytopenia (HC) RETICULOCYTES Today 05/27/2024 11:00 AM BRAND AMBASSADOR Pancytopenia (HC) CBC WITH AUTO DIFFERENTIAL Today 05/27/2024 11:00 AM BRAND AMBASSADOR Pancytopenia (HC) SCAN CORRESP-LABORATORY RESULTS 05/23/2024 12:00 AM BRAND AMBASSADOR SCAN CORRESP-IMAGING 05/23/2024 12:00 AM BRAND AMBASSADOR CBC WITH AUTO DIFFERENTIAL Routine 05/20/2024 12:19 PM BRAND AMBASSADOR Pancytopenia (HC) SCAN-LABORATORY REPORT 12:00 AM BRAND AMBASSADOR SCAN-CT INTERPRETATION 12:00 AM BRAND AMBASSADOR SCAN-RADIOLOGY REPORT 05/14/2024 12:00 AM BRAND AMBASSADOR LAB TRACKING EVENT Routine 05/13/2024 7: 30 PM BRAND AMBASSADOR PERIPHERAL BLD MORPHOLOGY Routine 05/13/2024 7:30 PM BRAND AMBASSADOR XR DXA BONE DENSITY 2 SITES AXIAL Routine 10/06/2022 10:59 AM CDT Age-related osteoporosis without current pathological fracture from Last 3 Months or Most Recently Relevant to Health Maintenance Results * (ABNORMAL) CBC WITH AUTO DIFFERENTIAL (07/09/2024 9:28 AM CDT) Only the most recent of14 resultswithin the time period is included. WHITE BLOOD COUNT 13.0(H) 4.5 - 11.0 thou/cu mm 07/09/2024 10:01 AM [facility] RED BLOOD COUNT 3.26(L) 4.00 - 5.20 mil/cu mm 07/09/2024 10:01 AM [facility] HEMOGLOBIN 10.3(L) 12.0 - 16.0 g/dL 07/09/2024 10:01 AM [facility] HEMATOCRIT 33.4 33.0 - 51.0 % 07/09/2024 10:01 AM [facility] MCV 103(H) 80 - 100 fL 07/09/2024 10:01 AM [facility] MCH 31.6 26.0 - 34.0 pg 07/09/2024 10:01 AM [facility] MCHC 30.8(L) 32.0 - 36.0 g/dL 07/09/2024 10:01 AM [facility] RDW 21.2(H) 11.5 - 15.5 % 07/09/2024 10:01 AM T [facility] PLATELET COUNT 731(H) 140 - 440 thou/cu mm 07/09/2024 10:01 AM T [facility] MPV 8.5 6.5 - 11.0 fL 07/09/2024 10:01 AM [facility] Blood BLOOD SPECIMEN / Unknown Butterfly / Unknown 07/09/2024 9:28 AM CDT 07/09/2024 9:34 AM CDT Jamila Mcekon NP HEMATOLOGY Final Result Performing Organization Address City/[facility]/ZIP Co de Phone Number [facility] [address] [place] [address] * (ABNORMAL) RED CELL MORPHOLOGY (07/09/2024 9:28 AM CDT) Only the most recent of10 resultswithin the time period is included. ELLIPTOCYTES Few 07/09/2024 10:01 AM [facility] SCHISTOCYTES Few 07/09/2024 10:01 AM [facility] TEARDROP CELLS Few 07/09/2024 10:01 AM [facility] RBC COMMENT Present(A) RBC morphology appears normal, RBC morphology within normal limits for newborns. 07/09/2024 10:01 AM [facility] LARGE PLATELETS Present 10:01 AM [facility] Blood BLOOD SPECIMEN / Unknown Butterfly / Unknown 07/09/2024 9:28 AM CDT 07/09/2024 9:34 AM CDT Jamila Mckeon NP HEMATOLOGY Final Result Performing Organization Address City/[facility]/ZIP Co de Phone Number [facility] [address] [place] [address] * (ABNORMAL) PLATELET ESTIMATE (07/09/2024 9:28 AM CDT) Only the most recent of10 resultswithin the time period is included. Pathologist [facility] PLATELET ESTIMATE Increased (A) Adequate, No estimate 07/09/2024 10:01 AM [facility] Blood BLOOD SPECIMEN / Unknown Butterfly / Unknown 07/09/2024 9:28 AM CDT 07/09/2024 9:34 AM CDT us Jamila Mckeon NP HEMATOLOGY Final Result [facility] [address] [place] [address] * (ABNORMAL) MANUAL DIFFERENTIAL (07/09/2024 9:28 AM CDT) Only the most recent of9 resultswithin the time period is included. [facility] % NEUTROPHILS 65.0 % 07/09/2024 10:01 AM [facility] % LYMPHOCYTES 18.0 % 07/09/2024 10:01 AM [facility] % MONOCYTES 16.0 % 07/09/2024 10:01 AM [facility] % EOSINOPHILS 1.0 % 07/09/2024 10:01 AM [facility] % BASOPHILS 0.0 % 07/09/2024 10:01 AM [facility] NEUTROPHILS ABSOLUTE 8.5(H) 1.7 - 7.0 thou/cu mm 07/09/2024 10:01 AM [facility] LYMPHOCYTES ABSOLUTE 2.3 0.9 - 2.9 thou/cu mm 07/09/2024 10:01 AM [facility] MONOCYTES ABSOLUTE 2.1(H) <0.9 thou/cu mm 07/09/2024 10:01 AM [facility] EOSINOPHILS ABSOLUTE 0.1 <0.5 thou/cu mm 07/09/2024 10:01 AM [facility] BASOPHILS ABSOLUTE 0.0 <0.3 thou/cu mm 07/09/2024 10:01 AM [facility] Blood BLOOD SPECIMEN / Unknown Butterfly / Unknown 07/09/2024 9:28 AM CDT 07/09/2024 9:34 AM CDT us Jamila Mckeon TRANSLATIONAL SPECIALIST HEMATOLOGY Final Result Performing Organization Address City/[facility]/ZIP Co de Phone Number [facility] [address] [place] [address] * BLOOD BANK EXTRA LAVENDER TOP (07/09/2024 9:28 AM CDT) Only the most recent of2 resultswithin the time period is included. Blood BLOOD SPECIMEN / Unknown Butterfly / Unknown 07/09/2024 9:28 AM CDT 07/09/2024 9:34 AM CDT us Jamila Mckeon TRANSLATIONAL SPECIALIST BLOOD BANK Final Result Performing Organization Address [facility] Co de Phone Number [facility] [address] [place] [address] * CWS PATH REVIEW HEMATOLOGY (07/03/2024 10:52 AM CDT) Only the most recent of3 resultswithin the time period is included. PATH COMMENT Reviewed by Destiny Hylton [place], MS (ASCP) on 07/04/2024 07/05/2024 2:05 PM CDT [facility] Blood BLOOD SPECIMEN / Unknown Venipuncture / Unknown 07/03/2024 10:52 AM CDT 07/03/2024 10:58 AM CDT us Jamila Godoydidier TRANSLATIONAL SPECIALIST LABORATORY Final Result Performing Organization Address City/[facility]/ZIP Co de Phone Number [facility] [address] [place] [address], [place] * (ABNORMAL) RETICULOCYTES (07/01/2024 6:10 AM CDT) Only the most recent of10 resultswithin the time period is included. RETIC% 5.6(H) 0.5 - 1.5 % 07/01/2024 8:06 AM CDT [facility] RETIC (ABSOLUTE) 0.15(H) 0.03 - 0.08 mil/cu mm 07/01/2024 8:06 AM CDT [facility] Blood BLOOD SPECIMEN / Unknown Venipuncture / Unknown 07/01/2024 6:10 AM CDT 07/01/2024 6:43 AM CDT us Olga Lidia Cleary MD HEMATOLOGY Final Result [facility] [address] [place] [address], * arterial duplex BILATERAL lower extremity TODAY [...] 135 mmHg Left Brachial: 122 mmHg Right PUBLIC WORKS INSPECTOR: 200 mmHg (JANINA 1.48) Right DPA: 160 mmHg (JANINA 1.19) Right great toe: 100 mmHg (TBI 0.74) Left PUBLIC WORKS INSPECTOR: Not obtained due to known lower extremity [...] 135 mmHg Left Brachial: 122 mmHg Right PUBLIC WORKS INSPECTOR: 200 mmHg (JANINA 1.48) Right DPA: 160 mmHg (JANINA 1.19) Right great toe: 100 mmHg (TBI 0.74) Left PUBLIC WORKS INSPECTOR: Not obtained due to known lower extremity [...] - 145 mmol/L 06/28/2024 8:47 AM CDT [facility] Blood BLOOD SPECIMEN / Unknown Butterfly / Unknown 06/28/2024 8:01 AM CDT 06/28/2024 8:11 AM CDT Ilir Rausch MD CHEMISTRY Final Res ult [facility] [address] [place] [address], * POTASSIUM (06/28/2024 8:01 AM CDT) Only the most recent of4 resultswithin the time period is included. POTASSIUM 3.9 3.5 - 5.1 mmol/L 06/28/2024 8:47 AM CDT [facility] Blood BLOOD SPECIMEN / Unknown Butterfly / Unknown 06/28/2024 8:01 AM CDT 06/28/2024 8:11 AM CDT Ilir Rausch MD CHEMISTRY Final Res ult Performing Organization Address City/[facility] Co de Phone Number [facility] [address] [address], [place] * (ABNORMAL) CREATININE (06/28/2024 8:01 AM CDT) Only the most recent of4 resultswithin the time period is included. eGFR 84(L) >90 mL/min/1.7 3m2 06/28/2024 8:47 AM CDT [facility] Comment:As of 2021, eG FR is calculated by the CKD-EPI creatinine equation without race adjustment. eGFR can be influenced by muscle mass, exercise, and diet. The reported eGFR is an estimation only and is only applicable if the renal function is stable. CREATININE 0.71 0.50 - 0.90 mg/dL 06/28/2024 8:47 AM CDT [facility] Blood BLOOD SPECIMEN / Unknown Butterfly / Unknown 06/28/2024 8:01 AM CDT 06/28/2024 8:11 AM CDT Ilir Rausch MD CHEMISTRY Final Res ult Performing Organization Address City/[facility]/ZIP Co de Phone Number [facility] [address] [address], [place] * (ABNORMAL) HEMOGLOBIN (06/27/2024 6:06 PM CDT) Only the most recent of2 resultswithin the time period is included. HEMOGLOBIN 9.5(L) 12.0 - 16.0 g/dL 06/27/2024 6:17 PM CDT [facility] MCV 95 80 - 100 fL 06/27/2024 6:17 PM CDT [facility] Blood BLOOD SPECIMEN / Unknown Butterfly / Unknown 06/27/2024 6:06 PM CDT 06/27/2024 6:11 PM CDT Ilir Rausch MD HEMATOLOGY Final Res ult [facility] [address] [place] [address], * TRANSFUSE RBC (NURSE COMMUNICATION ORDER) (06/27/2024 5:13 PM CDT) Blood BLOOD SPECIMEN / Unknown Ilir Rausch MD NURSING BLOOD BANK Final Result * (ABNORMAL) RBC W TYPE AND SCREEN (06/27/2024 10:24 AM CDT) Pathologist [facility] ABORH A Rh Negative 06/27/2024 11:14 AM CDT [facility] BLOOD BANK ANTIBODY SCREEN Positive(A) Negative 06/27/2024 11:14 AM CDT [facility] BLOOD BANK SPECIMEN EXPIRATION DATE/TIME 06/30/24 23:59 06/27/2024 11:14 AM CDT [facility] BLOOD BANK Blood BLOOD SPECIMEN / Unknown Venipuncture / Unknown 06/27/2024 10:24 AM CDT 06/27/2024 10:31 AM CDT Ilir Rausch MD BLOOD BANK Final Res ult [facility] BLOOD BANK [address] [place] [address], * (ABNORMAL) ANTIBODY IDENTIFICATION LAB USE ONLY (06/27/2024 10:24 AM CDT) Pathologist [facility] ANTIBODY IDENTIFICATION Anti-D(A) 06/27/2024 12:48 PM CDT [facility] Blood BLOOD SPECIMEN / Unknown Venipuncture / Unknown 06/27/2024 10:24 AM CDT 06/27/2024 10:31 AM CDT Narrative [facility] - 06/27/2024 12:48 PM [...] Rausch MD BLOOD BANK Final Res ult [facility] [address] [place] [address], [place] [phone] * ANTIBODY IDENTIFICATION EACH PANEL (06/27/2024 10:24 AM CDT) QUANTITY [address] [facility] LAB BLOOD BANK PANEL SELIN ID Panel Antibody ID [facility] Ilir Rausch MD BLOOD BANK Final Res ult Performing Organization Address City/[facility]/ZIP Co de Phone Number [facility] [address] [place] [address], [place] [phone] * PANEL-ABBREVIATED (06/27/2024 10:24 AM CDT) QUANTITY 1 [facility] PANEL ABBREVIATED Panel Abbreviated [facility] BLOOD BANK Ilir Rausch MD BLOOD BANK Final Res ult Performing Organization Address [facility]/ZIP Co de Phone Number [facility] [address] [place] [address], [place] [phone] * RED BLOOD CELLS EA UNIT (06/27/2024 10:24 AM CDT) Only the most recent of5 resultswithin the time period is included. Pathologist [facility] CROSSMATCH Compatible Compatible [facility] BLOOD B[facility] PRODUCT BLOOD TYPE A Rh Negative [facility] LAB BLOOD BANK PRODUCT ID NUMBER [id number] [facility] [employer]-CENTRAL LAB BLOOD BANK PRODUCT STATUS /Relea sed [facility] [employer]-CENTRAL LAB BLOOD BANK PRODUCT DESCRIPTION RBC -1 LR [facility] BLOOD BANK PRODUCT CODE [id number] [facility] Ilir Rausch MD BLOOD BANK Edited Re sult - Final [facility] SoftwareCENTRAL LAB BLOOD BANK [address] [place] [address], [place] [phone] * TRANSFUSE PLT (NURSE COMMUNICATION ORDER) (06/24/2024 11:13 AM CDT) Blood BLOOD SPECIMEN / Unknown Olga Lidia Cleary MD NURSING BLOOD BANK Final Res ult * PLATELET ORDER, 1 unit (06/24/2024 7:43 AM CDT) Only the most recent of2 resultswithin the time period is included. Pathologist [facility] QUANTITY 1 06/24/2024 7:4 3 AM CDT [facility] [employer] LAB BLOOD BANK Blood BLOOD SPECIMEN / Unknown 06/24/2024 7:41 AM CDT Olga Lidia Cleary MD BLOOD BANK Final Result [facility] BLOOD BANK [address] [place] [address], [place] [phone] * PLATELET EA UNIT (06/24/2024 7:41 AM CDT) Only the most recent of2 resultswithin the time period is included. Pathologist [facility] PRODUCT BLOOD TYPE A Rh Positive [facility] Self Point LAB BLOOD BANK PRODUCT ID NUMBER [id number] [facility] PRODUCT STATUS Transfused [facility] LAB BLOOD BANK PRODUCT DESCRIPTION SDP ACD-A IRR LR Pt3 [facility] LAB BLOOD BANK PRODUCT CODE [id number] [facility] LAB BLOOD BANK ISSUE DATE/TIME 06/24/24 08:37 [facility] BLOOD BANK Olga Lidia Cleary MD BLOOD BANK Edited Resul t - Final [facility] LAB BLOOD BANK [address] [place] [address], [place] [phone] * TRANSFUSE PLT (NURSE COMMUNICATION ORDER) (06/23/2024 [...] QUANTITY 1 06/23/2024 7:3 0 AM CDT [facility] BLOOD BANK Blood BLOOD SPECIMEN / Unknown 06/23/2024 7:26 AM CDT Ilir Rausch MD BLOOD BANK Final Res ult Performing Organization Address City/[facility]/ZIP Co de Phone Number [facility] LAB BLOOD BANK [address] [place] [address], [place] [phone] * [place] Venous doppler BILATERAL lower extremity [...] PCR (06/22/2024 4:10 AM CDT) Pathologist [facility] MRSA DNA PCR Negative Negative 06/22/2024 6:03 AM CDT [facility] STAPHYLOCOCCUS AUREUS PCR Negative Negative 06/22/2024 6:03 AM CDT [facility] Other SPECIMEN FROM INTERNAL NOSE / Unknown Non-Blood / Unknown 06/22/2024 4:10 AM CDT 06/22/2024 4:34 AM CDT Narrative [facility] - 06/22/2024 6:03 AM CDT Test result does not preclude MRSA or SA nasal colonization. Alanna Calderon MD MICROBIOLOGY Final Resul t [facility] [address] [place] [address], * TYPE & SCREEN (06/22/2024 3:16 AM CDT) Pathologist [facility] ABORH A Rh Negative 06/22/2024 4:43 AM CDT [facility] LAB BLOOD BANK ANTIBODY SCREEN Negative Negative 06/22/2024 4:43 AM CDT [facility] LAB BLOOD BANK SPECIMEN EXPIRATION DATE/TIME 06/25/24 23:59 06/22/2024 4:43 AM CDT [facility] LAB BLOOD BANK Blood BLOOD SPECIMEN / Unknown Butterfly / Unknown 06/22/2024 3:16 AM CDT 06/22/2024 3:23 AM CDT Alanna Calderon MD BLOOD BANK Final Resul t [facility] LAB BLOOD BANK [address] [place] [address], [place] [phone] * METHOTREXATE (MEXATE) (06/22/2024 3:16 AM CDT) Pathologist [facility] METHOTREXATE (MEXATE) <0.04 uMoles/L 06/22/2024 4:17 AM CDT [facility] Blood BLOOD SPECIMEN / Unknown Butterfly / Unknown 06/22/2024 3:16 AM CDT 06/22/2024 3:23 AM CDT Narrative [facility] - 06/22/2024 4:17 AM CDT Toxic Values for Methotrexate: >50.0 uMoles/L at 24 hours post infusion >10.0 uMoles/L at 48 hours post infusion >0.20 uMoles/L at 72 hours post infusion us Alanna Calderon MD SEND OUTS Final Resul t [facility] [address] [place] [address], * (ABNORMAL) Hepatic function panel TODAY (06/22/2024 3:16 AM CDT) Only the most recent of2 resultswithin the time period is included. ALBUMIN 3.1(L) 4.0 - 4.9 g/dL 06/22/2024 3:48 AM CDT [facility] PROTEIN,TOTAL 5.2(L) 6.0 - 8.0 g/dL 06/22/2024 3:48 AM CDT [facility] BILIRUBIN,TOTAL 0.7 0.0 - 1.2 mg/dL 06/22/2024 3:48 AM CDT [facility] BILIRUBIN,DIRECT 0.4(H) 0.0 - 0.2 mg/dL 06/22/2024 3:48 AM CDT [facility] BILIRUBIN,INDIRE CT 0.3 0.2 - 0.8 mg/dL 06/22/2024 3:48 AM CDT [facility] ALK PHOSPHATASE 98 35 - 104 IU/L 06/22/2024 3:48 AM CDT [facility] ALT (SGPT) 55(H) 10 - 35 IU/L 06/22/2024 3:48 AM CDT [facility] AST (SGOT) 40(H) 10 - 35 IU/L 06/22/2024 3:48 AM CDT [facility] Blood BLOOD SPECIMEN / Unknown Butterfly / Unknown 06/22/2024 3:16 AM CDT 06/22/2024 3:23 AM CDT us Alanna Calderon MD CHEMISTRY Final Resul t [facility] [address] [place] [address], * (ABNORMAL) Basic metabolic panel AM (06/22/2024 3:16 AM CDT) Only the most recent of2 resultswithin the time period is included. SODIUM 134(L) 136 - 145 mmol/L 06/22/2024 3:48 AM CDT [facility] POTASSIUM 4.0 3.5 - 5.1 mmol/L 06/22/2024 3:48 AM CDT [facility] CHLORIDE 102 98 - 107 mmol/L 06/22/2024 3:48 AM CDT [facility] CO2,TOTAL 21(L) 22 - 29 mmol/L 06/22/2024 3:48 AM CDT [facility] ANION GAP 11 5 - 18 06/22/2024 3:48 AM CDT [facility] GLUCOSE 111(H) 70 - 99 mg/dL 06/22/2024 3:48 AM CDT [facility] CALCIUM 8.2(L) 8.8 - 10.4 mg/dL 06/22/2024 3:48 AM CDT [facility] Comment: Reference ranges for this test were updated on 01/30/2024 to reflect our healthy population more accurately. Reference range changes are not retroactively applied to results, but previous results using the same methodology can be interpreted in the context of the new reference range. BUN 43(H) 8 - 23 mg/dL 06/22/2024 3:48 AM CDT [facility] CREATININE 0.84 0.50 - 0.90 mg/dL 06/22/2024 3:48 AM CDT [facility] BUN/CREAT RATIO 51(H) 10 - 20 3:48 AM T [facility] eGFR 69(L) >90 mL/min/1. 73m2 06/22/2024 3:48 AM T [facility] Comment:As of 2021, [...] Alanna Calderon MD CHEMISTRY Final Resul t [facility] [address] [place] [address], * (ABNORMAL) STAT Comp Metabolic Panel CMP (06/21/2024 12:57 PM CDT) SODIUM 132(L) 136 - 145 mmol/L 06/21/2024 2:32 PM [facility] POTASSIUM 4.8 3.5 - 5.1 mmol/L 06/21/2024 2:32 PM [facility] CHLORIDE 99 98 - 107 mmol/L 06/21/2024 2:32 PM [facility] CO2,TOTAL 22 22 - 29 mmol/L 06/21/2024 2:32 PM [facility] ANION GAP 11 5 - 18 06/21/2024 2:32 PM [facility] GLUCOSE 121(H) 70 - 99 mg/dL 06/21/2024 2:32 PM [facility] CALCIUM 8.9 8.8 - 10.4 mg/dL 06/21/2024 2:32 PM [facility] Comment: Reference ranges for this test were updated on 01/30/2024 to reflect our healthy population more accurately. Reference range changes are not retroactively applied to results, but previous results using the same methodology can be interpreted in the context of the new reference range. BUN 46(H) 8 - 23 mg/dL 06/21/2024 2:32 PM [facility] CREATININE 0.91(H) 0.50 - 0.90 mg/dL 06/21/2024 2:32 PM [facility] BUN/CREAT RATIO 51(H) 10 - 20 2:32 PM [facility] eGFR 62(L) >90 mL/min/1. 73m2 06/21/2024 2:32 PM [facility] Comment:As of 2021, eG FR is calculated by the CKD-EPI creatinine equation without race adjustment. eGFR can be influenced by muscle mass, exercise, and diet. The reported eGFR is an estimation only and is only applicable if the renal function is stable. ALBUMIN 3.5(L) 4.0 - 4.9 g/dL 06/21/2024 2:32 PM [facility] PROTEIN,TOTAL 6.2 6.0 - 8.0 g/dL 06/21/2024 2:32 PM [facility] BILIRUBIN,TOTAL 0.7 0.0 - 1.2 mg/dL 06/21/2024 2:32 PM [facility] ALK PHOSPHATASE 112(H) 35 - 104 IU/L 06/21/2024 2:32 PM [facility] ALT (SGPT) 70(H) 10 - 35 IU/L 06/21/2024 2:32 PM [facility] AST (SGOT) 55(H) 10 - 35 IU/L 06/21/2024 2:32 PM [facility] Blood BLOOD SPECIMEN / Unknown [facility] / Unknown 06/21/2024 12:57 PM CDT 06/21/2024 12:57 PM CDT us Constanza Cardozo MD CHEMISTRY Final Resul t [facility] [address] [place] [address] * (ABNORMAL) PLATELET ESTIMATION ([facility] REFLEX ONLY) (06/13/2024 2:04 PM CDT) Pathologist [facility] PLATELET ESTIMATION DECREASED( A) ADEQUATE [facility] 06/13/2024 2:04 PM CDT 06/13/2024 2:05 PM CDT us Constanza Cardozo MD HEMATOLOGY Final Resul t [facility] [address] [place] [address], [facility] [address] [place] [address] * (ABNORMAL) CBC AND DIFFERENTIAL (06/13/2024 2:04 PM CDT) Only the most recent of2 resultswithin the time period is included. [facility] WHITE BLOOD CELL COUNT 4.5 3.8 - [...] Cardozo MD HEMATOLOGY Final Resul t [facility] [address] [place] [address], [place] [phone] [facility] [address] [place] [address] * SCAN-ULTRASOUND REPORT (05/30/2024 12:00 AM BRAND AMBASSADOR) Anatomical Region Laterality Modality Other us Scanner OTHER Final Result * (ABNORMAL) IRON PLUS IRON BINDING CAP (05/27/2024 11:00 AM BRAND AMBASSADOR) IRON 93 37 - 145 ug/dL 05/28/2024 1:34 AM BRAND AMBASSADOR [facility] UIBC (UNSATURATED) 110(L) 112 - 347 ug/dL 05/28/2024 1:34 AM BRAND AMBASSADOR [facility] IRON BINDING CAPACITY 203(L) 250 - 400 ug/dL 05/28/2024 1:34 AM BRAND AMBASSADOR [facility] IRON,% SATURATION 46 14 - 50 % 05/28/2024 1:34 AM BRAND AMBASSADOR [facility] Blood BLOOD SPECIMEN / Unknown Venipuncture / Unknown 05/27/2024 11:00 AM BRAND AMBASSADOR 05/27/2024 11:01 AM BRAND AMBASSADOR us Jamila Harjit Mckeon TRANSLATIONAL SPECIALIST CHEMISTRY Final Result [facility] [address] [place] [address], [place] * (ABNORMAL) FERRITIN (05/27/2024 11:00 AM BRAND AMBASSADOR) FERRITIN 1,217.0(H) 15.0 - 150.0 ng/mL 05/28/2024 1:35 AM BRAND AMBASSADOR [facility] Blood BLOOD SPECIMEN / Unknown Venipuncture / Unknown 05/27/2024 11:00 AM BRAND AMBASSADOR 05/27/2024 11:01 AM BRAND AMBASSADOR us Jamila L Jayney TRANSLATIONAL SPECIALIST CHEMISTRY Final Result Performing Organization Address City/[facility]/ZIP Co de Phone Number [facility] [address] [address], [place] * SCAN CORRESP-LABORATORY RESULTS (05/23/2024 12:00 AM BRAND AMBASSADOR) us Scanner OTHER Final Result * SCAN CORRESP-IMAGING (05/23/2024 12:00 AM BRAND AMBASSADOR) Anatomical Region Laterality Modality Other us Scanner OTHER Final Result * SCAN-RADIOLOGY REPORT (05/14/2024 12:00 AM BRAND AMBASSADOR) Anatomical Region Laterality Modality Other us Scanner OTHER Final Result * SCAN-LABORATORY REPORT (05/14/2024 12:00 AM BRAND AMBASSADOR) us Scanner OTHER Final Result * SCAN-CT INTERPRETATION (05/14/2024 12:00 AM BRAND AMBASSADOR) Anatomical Region Laterality Modality Other us Scanner OTHER Final Result * LAB TRACKING EVENT (05/13/2024 7:30 PM BRAND AMBASSADOR) Other (Other) Client Collect / Unknown 05/13/2024 7:30 PM BRAND AMBASSADOR 05/14/2024 10:14 PM BRAND AMBASSADOR us Ebony Lee MD LAB BILL ONLY Final Result [facility] [employer] ([employer]) [facility] [address] [place] [address], * PERIPHERAL BLD MORPHOLOGY (05/13/2024 7:30 PM BRAND AMBASSADOR) Case Report Special Hematology Report Case: [id number] Authorizing Provider: Ebony Lee, Collected: 05/13/20241929 Ordering Location: [facility] CENTRAL LAB Received: 05/15/2024 0718 Pathologist: Ignacio Trammell MD Specimen: Peripheral Blood 05/20/2024 12:37 PM BRAND AMBASSADOR [employer] LABORATORY-C ENTRAL LABORATORY Amendment 05/20/2024 - Absolute lymphocyte count corrected. 05/20/2024 12:37 PM BRAND AMBASSADOR [facility] [employer]-C ENTRAL LABORATORY Final Diagnosis PERIPHERAL BLOOD: 1. Moderate normocytic anemia 2. Moderate thrombocytopenia 3. Leukopenia with normal differential counts 4. See comment 05/20/2024 12:37 PM BRAND AMBASSADOR [facility] LABORAT[facility]-C ENTRAL LABORATORY Amendment electronically signed by Ignacio Trammell MD on 05/20/2024 at 1237 BRAND AMBASSADOR at 1139 BRAND AMBASSADOR Comment The specific etiology of the anemia [...] also reviewed by Destiny Hylton MT, MS ([facility]). 05/20/2024 12:37 PM BRAND AMBASSADOR [facility] [employer] ([employer]) LABORATORY-C ENTRAL LABORATORY Clinical Information The patient is not 83-year-old female. Per CBC scan: Anemia, leukopenia, and thrombocytopenia. Per EPIC: Additional history includes hypertension, rheumatoid arthritis, and hypertensive kidney disease. She is currently receiving prednisone. 05/20/2024 12:37 PM BRAND AMBASSADOR [facility] [employer] ([employer]) LABORATORY-C ENTRAL LABORATORY CBC and Differential HEMATOLOGY PARAMETERS Tested at: [facility] [employer] [facility] Laboratory RESULTS EXPECTED VALUES WBC: 3.0 4.5-76q8950/cumm DECREASED RBC: 2.25 4.00-5.20 mil/cummDECREASED HGB: 7.4 12-16 gm/dl DECREASED HCT: 21.9 33-51% DECREASED MCV: 97.0 80-100 fl NORMOCYTIC MCH: 32.9 26-34 pg MCHC: 33.8 32-36 gm/dl NORMOCHROMIC RDW: 232 11.5-15.5% ELEVATED PLT: 69 140-470y0729/uL DECREASED Retic: 0.5 0.5-1.5% Differential Absolute (%) Expected (%) (x10*9/L) (x10*9/L) Neutrophils: 1.9932 (66) 1.7-7.0 (42-72%) Lymphocytes: 0.8758 (29) 0.9-2.9 (20-44%) DECREASED Eosinophils: 0.1 (3.3) <0.5 (0-2%) 05/20/2024 12:37 PM BRAND AMBASSADOR [facility] [employer] ([employer]) LABORATORY-C ENTRAL LABORATORY Microscopic Description The final diagnosis is based on microscopic examination of an appropriately stained blood smear. 05/20/2024 12:37 PM BRAND AMBASSADOR [facility] LABORAT[facility]-C ENTRAL LABORATORY Additional Information Interpreted at [facility] Central Laboratory - [address] [place] [address] [facility] [address] [address] 05/20/2024 12:37 PM BRAND AMBASSADOR [facility] [employer] ([employer]) LABORATORY-C ENTRAL LABORATORY Blood (Peripheral Blood) 05/13/2024 7:30 PM BRAND AMBASSADOR 05/15/2024 7:18 AM BRAND AMBASSADOR Ebony Lee MD HEMATOLOGY Edited Result - Final [facility] LAB[facility]-CEN[facility]AL LABORATORY [address] [place] [address], [place] * (ABNORMAL) XR DXA BONE DENSITY [...] greater than 5 years. Na Valdivia PA-C [facility] 10/11/2022 Narrative 10/11/2022 2:15 PM CDT For Patients: Results are automatically released to your [facility] ([employer]) account once available, in compliance with federal regulations. This means that you may see your results before your provider has had a chance to review them. Please allow 2-3 business days for your provider to comment on the results. XR DXA Bone Mineral Density (BMD) EXAM LOCATION: [address] [address] PATIENT NAME: Vanessa Andino DATE OF : [...] scanners are made by the same manager infrastructure. PROCEDURE: Dual-energy x-ray absorptiometry performed with routine [...] Most Recently Relevant to Health Maintenance Insurance MERGED WITH [facility] [employer] MEDICARE ADVANTAGE MR MEDICARE PART A HB ONLY [place] BLUE HB ONLY MEDICARE PART B HB ONLY [place] BLUE MR PB ONLY Advance Directives Documents on File Type Date Recorded Patient Precision Assembler Expl anation POLST 07/14/2017 8:01 AM 01/12/2017 Power of Translational Specialist 07/14/2017 7:57 AM 12/25 Healthcare Directive 07/14/2017 [...] 7:01 AM 05/04/2016 3:07 PM Care Teams It Consultant Relationship Specialty Start Date End Date Constanza Cardozo MD [address] [place] [address] PCP - General Family Practice 08/25/22 Reagan, Beto A, PERMANENT MOLD SUPERVISOR Ruling Machine Operator 07/13/17 Sharif Nunez MD [address] [facility] [address] [place] [address] Rheumatology 10/08/21 Riley Camacho MD [address] [place] [address] Surgery - Urology 08/25/22 [place] [address] [place] [address] Endocrinology Endocrinology 04/02/24
[2024-07-14 07:53] LABS: Chloride* 99 mmol/L (96-114); Potassium* 3.8 mmol/L (3.6-5.1); Sodium* 134 mmol/L (135-149)
[2024-07-14 07:56] LABS: Blood Urea Nitrogen* 30 mg/dL (7-30); Creatinine* 0.9 mg/dL (0.5-1.5); Estimated Glomerular Filt Rate 63 ml/min
[2024-07-14 07:57] LABS: Anion Gap 9 mEq/L (7-15); Calcium* 8.9 mg/dL (8.4-10.6); Carbon Dioxide* 26 mmol/L (20-32); Glucose* 124 mg/dL (60-115)
[2024-07-14 08:02] LABS: Slide Review Acceptable Review (Acceptable); Slide Review Reflex Yes; White Blood Count* 25.76 K/uL (4.50-11.00)
[2024-07-14 08:14] LABS: PCR FLU A Negative PCR FLU A (Negative); PCR FLU B Negative PCR FLU B (Negative); PCR RSV Negative PCR RSV (Negative); SARS PCR* Negative SARS-CoV-2 (Negative)
[2024-07-14 08:33] LABS: Appearance Urine Cloudy (Clear); Bilirubin Urine Negative (Negative); Blood Urine Trace-intact (Negative); Color Urine Yellow (Yellow); Glucose Urine Negative (Negative); Ketones Urine Negative (Negative); Leukocyte Esterase Urine 3+ (Negative); Nitrite Urine Positive (Negative); Protein Urine 1+ (Negative); Specific Gravity Urine 1.015 (1.000-1.030); Urobilinogen Urine 0.2 (0.2-1.0)
[2024-07-14 08:41] LABS: Lactate* 2.3 mmol/L (0.5-1.9)
[2024-07-14 08:47] LABS: Bacteria Urine Many; Other Sediment Urine FEW YEAST; Squamous Epithelial Cell Urine Few (None-Few); WBC Urine >100 (0-5)
== END 2024-07-14 09:44 | disposition home or self-care (01) ==
PROVIDERS: Internal Medicine; Emergency Provider Family Medicine; PCP Family Medicine
DX: N39.0 Urinary tract infection, site not specified (principal); D72.829 Elevated white blood cell count, unspecified; R00.0 Tachycardia, unspecified; R50.9 Fever, unspecified; R11.10 Vomiting, unspecified
CPT/HCPCS: 36415; 71045; 80048; 81001; 83605; 85025; 87040; 87086; 87631; 96374; 99284; J2405; J7120

== ENCOUNTER 2024-07-14 21:20 | Inpatient (IN) | payer MEDICARE, BC, SELFPAY ==
[2024-07-14 21:41] VITALS: BP 113/47; PULSE 70; RESP 16; TEMP 36.6; O2SAT 96; BMI 26.1
[2024-07-14 22:00] VITALS: BP 113/47; PULSE 70; RESP 16; TEMP 36.6; O2SAT 96
--- NOTE | 2024-07-14 22:02 | PM.IMHP1 ---
Assessment and Plan Assessment and plan (1) Sepsis: Problem comment: This morning tachycardic, WBC >25, lactate 2.3, suspected source urinary, now confirmed bacteremia as well Admission labs pending, UC pending CXR shows no new pulmonary infiltrate or patchy airspace opacity to suspected consolidation. No effusion or pneumothorax Zosyn and vancomycin started Normal saline bolus followed by maintenance fluids Status: Acute (2) Bacteremia: Problem comment: 1 of 2 blood cultures from 07/14/24 growing Gram-negative rods Repeat blood cultures on admission tonight Zosyn and vancomycin given recent hospitalization at [facility] the end of May Status: Acute (3) Acute UTI: Problem comment: UA this morning is cloudy, positive nitrites, 3+ LE, > 100 WBC, many bacteria. UC pending Discharged to home on Cipro (refused admission)- discontinued Zosyn and vancomycin as above Status: Acute (4) Neurogenic bladder: Problem comment: Self catheterization at home 6 times daily Vizcarra catheter placed Status: Acute (5) Rheumatoid arthritis: Problem comment: Weaning prednisone, currently on 7 mg daily Methotrexate discontinued following induced pancytopenia Followed by Dr. Nunez, rheumatology Status: Acute (6) History of DVT (deep vein thrombosis): Problem comment: Distal left common and popliteal veins noted on venous Doppler 06/22 Continue apixiban Status: Acute (7) High blood pressure: Problem comment: Continue losartan, blood pressures stable currently, monitor Status: Acute (8) Left lumbar radiculopathy: Problem comment: Developed during hospitalization at [facility] Per PCP, plan to gradually reduce morphine and methocarbamol, discontinue if not required. Lidocaine patch as needed Has home physical therapy Status: Acute (9) Anemia: Problem comment: Hemoglobin 9.6, 11.4 this morning Transfused during hospitalization at this hospital in April On Eliquis for DVT Monitor, further workup/labs if continues to drop Status: Resolved Total Time Spent Total Time Spent: Today I spent 90 minutes seeing the patient, reviewing Expanse and EPIC notes/diagnostics, discussing the care plan with our care time that includes social work, PT/OT, pharmacy, RT, jail and documenting my impressions and plan in the medical record. Hospitalist- H&P: HPI History of Present Illness Date Seen: 07/14/24 Chief complaint: direct admit Narrative: Vanessa Andino is a 83 year old female past medical history significant for hypertension, rheumatoid arthritis, recent pancytopenia induced by methotrexate, low back pain with lumbar radiculopathy, chronic wound is a direct admit to the medical floor from home for bacteremia. Patient is seen with her Arun campbell, at bedside. Patient was seen in the ED earlier this morning and discharged home after refusing admission on Cipro for suspected UTI. One of 2 blood cultures drawn this morning are growing Gram-negative rods. ED provider called her at home and plan was made for to be a direct admission to the medical floor. Patient admits to not feeling well for the past few days. In general more fatigued, intermittent nausea without vomiting. Denies headaches or dizziness. No falls. Denies chest pain or shortness of breath. Has had no fevers or chills at home. Denies abdominal pain or flank pain. Last normal bowel movement was today. Self catheterization 6 times daily. Patient was recently hospitalized at [facility] 06/21-07/01 for pancytopenia thought to be induced by methotrexate. Nonsmoker. Denies alcohol use. PCP is Dr. Cardozo. Wishes to be a full code. Review of Systems Narrative: REVIEW OF SYSTEMS: Complete review of systems performed and negative unless otherwise stated in HPI or below. [facility] Medical History Left lumbar radiculopathy ?M54.16 - Radiculopathy, lumbar region (ICD-10) Sepsis ?A41.9 - Sepsis, unspecified organism (ICD-10) Breast mass, right ?N63.10 - Unspecified lump in the right breast, unspecified quadrant (ICD-10) MRSA infection ?A49.02 - Methicillin resistant Staphylococcus aureus infection, unspecified site (ICD-10) Neurocardiogenic pre-syncope ?R55 - Syncope and collapse (ICD-10) Physical deconditioning ?R53.81 - Other malaise (ICD-10) Closed fracture of distal radius and ulna ?S52.509A - Unspecified fracture of the lower end of unspecified radius, initial encounter for closed fracture (ICD-10) ?S52.609A - Unspecified fracture of lower end of unspecified ulna, initial encounter for closed fracture (ICD-10) Post-traumatic osteoarthritis, left wrist ?M19.132 - Post-traumatic osteoarthritis, left wrist (ICD-10) Closed fracture of left distal radius ?S52.502A - Unspecified fracture of the lower end of left radius, initial encounter for closed fracture (ICD-10) Closed fracture of left proximal humerus ?S42.202A - Unspecified fracture of upper end of left humerus, initial encounter for closed fracture (ICD-10) Lower extremity edema ?R60.0 - Localized edema (ICD-10) Pneumonia ?J18.9 - Pneumonia, unspecified organism (ICD-10) Gram-negative bacteremia ?R78.81 - Bacteremia (ICD-10) Lung nodules ?R91.8 - Other nonspecific abnormal finding of lung field (ICD-10) Sensorineural hearing loss, bilateral ?H90.3 - Sensorineural hearing loss, bilateral (ICD-10) Prediabetes ?R73.03 - Prediabetes (ICD-10) Presence of neurostimulator ?Z96.82 - Presence of neurostimulator (ICD-10) Sacral nerve stimulator present ?Z96.82 - Presence of neurostimulator (ICD-10) Recurrent urinary tract infection ?N39.0 - Urinary tract infection, site not specified (ICD-10) Hyperlipidemia ?E78.5 - Hyperlipidemia, unspecified (ICD-10) History of DVT (deep vein thrombosis) ?Z86.718 - Personal history of other venous thrombosis and embolism (ICD-10) Stage 3 chronic kidney disease ?N18.30 - Chronic kidney disease, stage 3 unspecified (ICD-10) Rheumatoid arthritis ?M06.9 - Rheumatoid arthritis, unspecified (ICD-10) High blood pressure ?I10 - Essential (primary) hypertension (ICD-10) Osteoarthritis ?M19.90 - Unspecified osteoarthritis, unspecified site (ICD-10) Surgical History S/P ORIF (open reduction internal fixation) fracture (12/06/21) ?Z98.890 - Other specified postprocedural states (ICD-10) ?Z87.81 - Personal history of (healed) traumatic fracture (ICD-10) S/P ORIF (open reduction internal fixation) fracture ?Z98.890 - Other specified postprocedural states (ICD-10) ?Z87.81 - Personal history of (healed) traumatic fracture (ICD-10) S/P total knee arthroplasty ?Z96.659 - Presence of unspecified artificial knee joint (ICD-10) H/O hysterectomy with oophorectomy History of cholecystectomy ?Z90.49 - Acquired absence of other specified parts of digestive tract (ICD-10) Family History Mother Stroke Rheumatoid arthritis Brother Diabetes Coronary artery disease Father Pancreatic cancer Social History Narrative: patient lives independently with her significant other, Cirilo Chambers. She has a niece, Peg. Those 2 would be healthcare power of collections attorney. Code status is full. What is your current living situation?: I presently have a place to live Problems where you live: no known problems Problems where you live details: NA In the past 12 months, utilities in danger of being shut off: no In past 12 months, lack of transportation kept you from medical appts, meetings, work, or getting things needed for daily living: no In the past 12 mos, have been you worried that your food would run out before you had money to buy more?: never true In the past 12 mos, the food you bought just didn't last and you didn't have money to buy more?: never true Highest level of school completed/degree received: Associate degree: occupational, technical, vocational program Smoking Status: Never smoker Do you use any of these nicotine containing products: None Second hand tobacco smoke exposure: No How often do you have a drink containing alcohol: never How often do you have six or more drinks on one occasion: Never AUDIT-C Alcohol total score: 0 Non-prescribed substance use: denies use Caffeine: Yes How often does anyone, including family, friends and others, physically hurt you: never How often does anyone, including family, friends and others, insult or talk down to you: never How often does anyone, including family, friends and others, threaten you with harm: never How often does anyone, including family, friends and others, scream or curse at you: never Are you using contraception or practicing any form of control: No service: No Meds Home Medications and Allergies Home Medications ?Medication ?Instructions ?Recorded ?Confirmed ?Type aspirin 81 mg tablet,delayed 81 mg PO DAILY 10/04/21 05/30/24 History release (Adult Aspirin Regimen) multivitamin (Multiple Vitamins 1 tab PO QDAY 11/26/21 06/21/24 History tablet) alendronate 70 mg tablet 70 mg PO SILVA 02/28/22 06/21/24 History calcium 600 mg (as 1 cap PO DAILY 02/28/22 06/21/24 History carbonate)-vitamin D3 12.5 mcg (500 unit) capsule (Calcium with Vit D3) furosemide 20 mg tablet 20 mg PO BID 02/28/22 06/21/24 History losartan 50 mg tablet 50 mg PO DAILY 02/28/22 06/21/24 History acetaminophen 500 mg tablet 1,000 mg PO Q6H PRN 07/13/22 06/21/24 History (Acetaminophen Extra Strength) methenamine hippurate 1 gram tablet 1 g PO BID 11/26/22 05/30/24 History benzocaine 20 % mucosal gel 1 applic mucous membrane QID PRN 05/14/24 05/30/24 History clotrimazole 1 % topical cream 1 applic topical BID 05/14/24 05/30/24 History prednisone 1 mg tablet 2 mg PO DAILY 05/14/24 07/14/24 History Allergies Allergy/AdvReac Type Severity Reaction Status Date / Time clonidine Allergy Mild Hallucinati Verified 06/21/24 16:33 ng leflunomide Allergy Mild Hallucinati Verified 06/21/24 16:33 ng lisinopril Allergy Mild increased Verified 06/21/24 16:33 creatinine methotrexate Allergy Mild did not Verified 06/21/24 16:33 feel well hydrocodone Allergy Unknown Vomiting Verified 06/21/24 16:33 oxycodone Allergy Unknown Verified 06/21/24 16:33 Opioids - Morphine Analogues Allergy Verified 06/21/24 16:33 Sulfa (Sulfonamide Allergy Verified 06/21/24 16:33 Antibiotics) surgical glue Allergy Uncoded 04/30/24 18:36 Exam Narrative: Exam Narrative: PHYSICAL EXAM General: Other than appearing tired, is very pleasant, appropriately conversant, and in NAD HEENT: Normocephalic, atraumatic, sclera white, EOMI, oral mucosa moist Cardiovascular: RRR, S1S2. +2 pitting edema, compression stockings in place Pulmonary: CTA bilaterally without rhonchi, rales, expiratory wheezes. No dyspnea on room air Abdominal: Soft, nondistended, NTTP Neurological: Alert, answering questions appropriately, cranial nerves intact, no focal findings Extremities: No gross joint deformity or swelling. AROMI. Neurovascularly intact Skin: Warm, dry. Const: Vital Signs, click to edit/add: Vital Signs - 24 hr 07/14/24 21:41 Temperature 97.9 F Pulse Rate [Left P ulse Oximeter] 70 Respiratory Rate 16 Blood Pressure [Ri ght Arm] 113/47 L Pulse Oximetry 96 Oxygen Delivery Me thod Room Air Hospitalist - H&P: Result Imaging Chest x-ray: Attestation: I have reviewed the pertinent imaging results. Radiologist's impression: No new pulmonary infiltrate or patchy airspace opacity to suspect consolidation. No effusion or pneumothorax. Cardiac size is stable. No pulmonary edema.
[2024-07-14 22:21] LABS: Basophils Percent Auto 0.1 % (0.0-3.0); Hematocrit 30.3 % (33.0-51.0); Hemoglobin* 9.6 gm/dL (12.0-16.0); Immature Granulocytes Pct Auto 0.4 %; Lymphocytes Percent Auto 4.2 % (20-44); Mean Corpuscular HGB Conc 32 gm/dL (32-36); Mean Corpuscular Hemoglobin 32 pg (26-34); Mean Corpuscular Volume 101 fL (80-100); Neutrophils Percent Auto 91.3 % (42.0-72.0); Platelet Count* 289 K/uL (140-440); RDW Coefficient of Variation % 21.1 % (11.5-15.5); Red Blood Count 2.99 m/uL (4.00-5.20); White Blood Count* 21.99 K/uL (4.50-11.00)
[2024-07-14 22:22] LABS: Lactate* 1.5 mmol/L (0.5-1.9)
[2024-07-14] MEDS: 0.9 % SODIUM CHLORIDE 1000 ml 1,000 ML IV (22:29)
[2024-07-14] MEDS: PIPERACILLIN/TAZOBACTAM 4.5 GM in 0.9 % SODIUM CHLORIDE Mini-bag 100 ML IVPB (22:29)
[2024-07-14 22:31] LABS: Slide Review Reflex No
[2024-07-14 22:41] LABS: Albumin* 3.3 g/dL (3.3-5.0); Chloride* 99 mmol/L (96-114); Potassium* 4.1 mmol/L (3.6-5.1); Sodium* 132 mmol/L (135-149)
[2024-07-14 22:43] LABS: Blood Urea Nitrogen* 35 mg/dL (7-30); Creatinine* 1.3 mg/dL (0.5-1.5); Est. Creatinine Clearance* 24.31; Estimated Glomerular Filt Rate 41 ml/min
[2024-07-14 22:44] LABS: Alanine Aminotransferase* 33 U/L (4-35); Alkaline Phosphatase* 106 U/L (40-150); Anion Gap 6 mEq/L (7-15); Aspartate Amino Transferase* 43 U/L (12-35); Bilirubin Total* 0.5 mg/dL (0.1-1.5); Calcium* 8.4 mg/dL (8.4-10.6); Carbon Dioxide* 27 mmol/L (20-32); Glucose* 155 mg/dL (60-115); Total Protein* 6.1 g/dL (6.0-8.3)
[2024-07-14 22:47] LABS: C Reactive Protein* 5.1 mg/dL (0.5-1.0)
[2024-07-14 23:00] VITALS: BP 119/55; PULSE 63; RESP 16; TEMP 36.6; O2SAT 97
[2024-07-14] MEDS: VANCOMYCIN 1 GM/200 ML 1 GM/200 ML PIGGYBACK IVPB (23:06)
[2024-07-14 23:25] VITALS: PULSE 64
[2024-07-15] VITALS (7 sets, daily range): BP systolic 111–148; BP diastolic 49–63; PULSE 57–74; RESP 12–18; TEMP 36.1–36.8; O2SAT 96–97
[2024-07-15] MEDS: 0.9 % SODIUM CHLORIDE 1000 ml 1,000 ML 125 ML IV ×2 (01:04→09:11)
[2024-07-15] MEDS: PIPERACILLIN/TAZOBACTAM 4.5 GM in 0.9 % SODIUM CHLORIDE Mini-bag 100 ML IVPB ×2 (03:14→10:09)
--- NOTE | 2024-07-15 04:30 | PC.NURSE ---
Shift note: Pt was admitted to the unit as a direct admission from home at 2230. Prior to the admission, pt was seen at the ER for weakness and has a fall at home. Blood culture came out positive for gram negative jose antonio. Patient was called back for admission for IV abx treatment. She was conscious, alert and oriented. Fiance accompanied patient to the floor. Vital signs stable on admission and throughout the night. During history and assessment, pt mentioned that she straight cath 6x/day. was informed about that and ordered for Vizcarra placement which was successfully placed at 2300. Patient denied pain. IV fluid and abx given as prescribed. On assessment, pt has multiple bruises to the hands and legs and a wound to the left leg covered with Mepilex. Telemetry, TEDs and SCDs applied. Patient had adequate sleep tonight.
[2024-07-15 06:28] LABS: Hematocrit 28.1 % (33.0-51.0); Mean Corpuscular HGB Conc 32 gm/dL (32-36); Mean Corpuscular Hemoglobin 33 pg (26-34); Mean Corpuscular Volume 101 fL (80-100); Platelet Count* 249 K/uL (140-440); Red Blood Count 2.77 m/uL (4.00-5.20); White Blood Count* 15.56 K/uL (4.50-11.00)
[2024-07-15 06:35] LABS: Slide Review Reflex No
[2024-07-15 06:43] LABS: Chloride* 104 mmol/L (96-114); Potassium* 3.8 mmol/L (3.6-5.1); Sodium* 133 mmol/L (135-149)
[2024-07-15 06:46] LABS: Anion Gap 6 mEq/L (7-15); Blood Urea Nitrogen* 30 mg/dL (7-30); Calcium* 7.7 mg/dL (8.4-10.6); Carbon Dioxide* 23 mmol/L (20-32); Creatinine* 1.1 mg/dL (0.5-1.5); Est. Creatinine Clearance* 28.73; Estimated Glomerular Filt Rate 50 ml/min; Glucose* 104 mg/dL (60-115)
[2024-07-15 06:49] LABS: C Reactive Protein* 5.4 mg/dL (0.5-1.0)
[2024-07-15] MEDS: FUROSEMIDE 20 MG TABLET PO ×2 (07:50→14:13)
[2024-07-15] MEDS: LOSARTAN POTASSIUM 50 MG TABLET PO (08:55)
[2024-07-15] MEDS: APIXABAN 5 MG TABLET PO ×2 (08:55→21:13)
[2024-07-15] MEDS: GABAPENTIN 100 MG CAPSULE PO ×3 (08:55→21:13)
[2024-07-15] MEDS: predniSONE 5 MG TABLET PO (08:59)
[2024-07-15] MEDS: predniSONE 1 MG TABLET 2 MG PO (08:59)
--- NOTE | 2024-07-15 10:07 | PC.SOCIAL ---
Social Service Consult: SW met with patient to discuss needs at home and comments made about being afraid adrian will get mad if she's admitted. Patient states that they have things taken care of at home and partner is a great support. Patient reports that she has a whistle so that she can call him with it if she needs to go to the bathroom as she isn't supposed to get up on her own. Patient explains that she has a RN that comes three times a week to change her cellulitis dressings and has PT as well. When asked patient couldn't remember the name of the agency. Patient states that she reads and likes to be in her flower garden. Patient also states that she has bike pedals that she does when she is sitting in a chair. When asked about the statement of being afraid of her fiance getting mad patient states he never said anything like that and that he is very kind to her and the best man she has been with. Patient reports she was mad to get admitted as she just wants to be at home after a 10 day stay at [place] [facility]. Patient explains that her partner is the one who called the ambulance and feels that she needs to be here. Patient reports that she and partner have been together for 8 years. Patient reports no concerns for safety in their relationship. SW to assist with other needs if they arise.
--- NOTE | 2024-07-15 12:31 | PM.IMPN1 ---
Assessment and Plan Assessment and plan (1) Sepsis: Problem comment: - 07/14/2024: This morning tachycardic, WBC >25, lactate 2.3, suspected source urinary, now confirmed bacteremia as well Admission labs pending, UC pending CXR shows no new pulmonary infiltrate or patchy airspace opacity to suspected consolidation. No effusion or pneumothorax Zosyn and vancomycin started Normal saline bolus followed by maintenance fluids - 07/15/2024: Improving. No longer acting or feeling septic. Status: Acute (2) Bacteremia: Problem comment: - 07/14/2024: 1 of 2 blood cultures from 07/14/24 growing Gram-negative rods Repeat blood cultures on admission tonight Zosyn and vancomycin given recent hospitalization at [facility] the end may - 07/15/2024: Urine culture and 2 of 2 blood cultures drawn on 07/14/2024 growing Gram-negative rods. Organism identification and sensitivities are still pending. Status: Acute (3) Acute UTI: Problem comment: - 07/14/2024: UA this morning is cloudy, positive nitrites, 3+ LE, > 100 WBC, many bacteria. UC pending Discharged to home on Cipro (refused admission)- discontinued Zosyn and vancomycin as above - 07/15/2024: Consider deescalating vancomycin if still growing only 1 Gram-negative organism. Status: Acute (4) Neurogenic bladder: Problem comment: - 07/14/2024: Self catheterization at home 6 times daily Vizcarra catheter placed - 07/15/2024: Consider additional strategies to lower risk of recurrent UTIs including topical estrogen, prophylactic antibiotic therapy, and so forth. Status: Acute (5) Rheumatoid arthritis: Problem comment: Weaning prednisone, currently on 7 mg daily Methotrexate discontinued following induced pancytopenia Followed by Dr. Nunez, rheumatology Status: Acute (6) History of DVT (deep vein thrombosis): Problem comment: Distal left common and popliteal veins noted on venous Doppler 06/22 Continue apixiban Status: Acute (7) High blood pressure: Problem comment: Continue losartan, blood pressures stable currently, monitor Status: Acute (8) Left lumbar radiculopathy: Problem comment: Developed during hospitalization at [facility] Per PCP, plan to gradually reduce morphine and methocarbamol, discontinue if not required. Lidocaine patch as needed Has home physical therapy Status: Acute (9) Anemia: Problem comment: Hemoglobin 9.6, 11.4 this morning Transfused during hospitalization at this hospital in April On Eliquis for DVT Monitor, further workup/labs if continues to drop Status: Resolved Plan 1. Reviewed impression and recommendations with patient 2. Hazard or questions 3. She has agree with above stated plans and recommendations Total Time Spent Total Time Spent: 35 minutes Subjective Date Seen: 07/15/24 Interval history: Admission history of present illness, 07/14/2024: ?83 year old female past medical history significant for hypertension, rheumatoid arthritis, recent pancytopenia induced by methotrexate, low back pain with lumbar radiculopathy, chronic wound is a direct admit to the medical floor from home for bacteremia. ?Patient is seen with her fianceArun, at bedside. Patient was seen in the ED earlier this morning and discharged home after refusing admission on Cipro for suspected UTI. One of 2 blood cultures drawn this morning are growing Gram-negative rods. ED provider called her at home and plan was made for to be a direct admission to the medical floor. Patient admits to not feeling well for the past few days. In general more fatigued, intermittent nausea without vomiting. Denies headaches or dizziness. No falls. Denies chest pain or shortness of breath. Has had no fevers or chills at home. Denies abdominal pain or flank pain. Last normal bowel movement was today. Self catheterization 6 times daily. Off? Patient was recently hospitalized at [facility] 06/21-07/01 for pancytopenia thought to be induced by methotrexate. ?Nonsmoker. Denies alcohol use. PCP is Dr. Cardozo. Wishes to be a full code.? Hospital day 2, 07/15/2024: Feels notably improved today compared to yesterday. Still fatigued and not to baseline. Nausea seems to have subsided for now. Interested in eating and drinking now whereas previously was not. Still weak. Now both blood cultures plus the urine culture obtained on 07/14/2024 are growing out Gram-negative rods. The organism identification and sensitivities for these cultures are still pending. Exam Narrative: Exam Narrative: I examined the patient in her hospital room. Appears comfortable and in no acute distress. Articulate and cooperative. Alert and oriented x3. Vision is adequate and hearing is adequate when speaking loudly enough. Lungs are clear to auscultation. Kyphosis. Chest wall excursions adequate. No CVA tenderness. Heart tones with regular rhythm, normal S1-S2. PMI not laterally displaced. Abdomen with active bowel sounds, soft, nontender. No rebound or guarding. Trace edema pretibially bilaterally. Generalized weakness. No focal motor neurologic deficits. Const: Vital Signs, click to edit/add: Vital Signs - 24 hr 07/14/24 21:41 07/14/24 21:41 07/14/24 22:00 Temperature 97.9 F 97.9 F Pulse Rate Pulse Rate [Left P ulse Oximeter] 70 70 Respiratory Rate 16 16 16 Blood Pressure [Ri ght Arm] 113/47 L 113/47 L Pulse Oximetry 96 96 96 Oxygen Delivery Me thod Room Air Room Air Room Air 07/14/24 23:00 07/14/24 23:00 07/14/24 23:25 Temperature 97.9 F Pulse Rate 64 Pulse Rate [Left P ulse Oximeter] 63 63 Respiratory Rate 16 16 Blood Pressure [Ri ght Arm] 119/55 L Pulse Oximetry 97 Oxygen Delivery Me thod Room Air 07/15/24 02:31 07/15/24 07:00 07/15/24 07:00 Temperature 98.2 F 97.3 F L Pulse Rate 62 Pulse Rate [Left P ulse Oximeter] 70 62 Respiratory Rate 16 14 Blood Pressure [Ri ght Arm] 126/51 L 137/58 L Pulse Oximetry 96 97 Oxygen Delivery Me thod Room Air Room Air Labs Labs: Laboratory Results - last 24 hr 07/14/24 07/15/24 22:05 05:56 WBC 21.99 H 15.56 H RBC 2.99 L 2.77 L Hgb 9.6 L 9.0 L Hct 30.3 L 28.1 L MCV 101 H 101 H MCH 32 33 MCHC 32 32 RDW Coeff of Randa 21.1 H Plt Count 289 249 Neut % (Auto) 91.3 H Lymph % (Auto) 4.2 L Montgomery % (Auto) 4.0 Eos % (Auto) 0.0 Baso % (Auto) 0.1 Neut # (Auto) 20.10 H Lymph # (Auto) 0.90 Montgomery # (Auto) 0.90 Eos # (Auto) 0.00 Baso # (Auto) 0.00 Abs Immat Gran (auto) 0.10 Imm/Tot Granulo (auto) 0.4 Sodium 132 L 133 L Potassium 4.1 3.8 Chloride 99 104 Carbon Dioxide 27 23 Anion Gap 6 L 6 L BUN 35 H 30 Creatinine 1.3 1.1 Estimated Creat Clear 24.31 28.73 Estimated GFR 41 50 Glucose 155 H 104 Lactate 1.5 Calcium 8.4 7.7 L Total Bilirubin 0.5 AST 43 H ALT 33 Alkaline Phosphatase 106 C-Reactive Protein 5.1 H 5.4 H Total Protein 6.1 Albumin 3.3
--- NOTE | 2024-07-15 19:33 | PC.NURSE ---
Patient up with assist of one, gait belt, and walker. Patient ambulated in the [place] x 3 with staff. Patients IV and higginbotham patent, alert and oriented x 3.
[2024-07-15] MEDS: SODIUM CHLORIDE 0.9 % (FLUSH) 10 ML SYRINGE 5 ML IVF (21:13)
[2024-07-16 03:00] VITALS: BP 142/57; PULSE 66; RESP 18; TEMP 36.7; O2SAT 96
[2024-07-16 06:46] LABS: Hematocrit 29.3 % (33.0-51.0); Hemoglobin* 9.2 gm/dL (12.0-16.0); Mean Corpuscular HGB Conc 31 gm/dL (32-36); Mean Corpuscular Hemoglobin 32 pg (26-34); Mean Corpuscular Volume 102 fL (80-100); Platelet Count* 217 K/uL (140-440); Red Blood Count 2.88 m/uL (4.00-5.20)
[2024-07-16 06:49] LABS: Slide Review Reflex No
--- NOTE | 2024-07-16 06:57 | PC.NURSE ---
[id number]: Pt alert, oriented and vitally stable. Pt stated periods of confusion, especially after waking from a deep sleep; able to reorient herself. Denies pain. Tele NSR with 1st degree and bbb. Vizcarra patent and draining. 1a, walker and gait belt. Pt in bed, appears to be resting, call light within reach.?
[2024-07-16 07:00] VITALS: BP 158/64; PULSE 65; PULSE 74; RESP 16; RESP 18; TEMP 36.8; O2SAT 96
[2024-07-16 07:00] LABS: Chloride* 103 mmol/L (96-114); Sodium* 134 mmol/L (135-149)
[2024-07-16 07:01] LABS: Potassium* 3.8 mmol/L (3.6-5.1)
[2024-07-16 07:03] LABS: Anion Gap 7 mEq/L (7-15); Blood Urea Nitrogen* 35 mg/dL (7-30); Carbon Dioxide* 24 mmol/L (20-32); Creatinine* 1.2 mg/dL (0.5-1.5); Est. Creatinine Clearance* 26.33; Estimated Glomerular Filt Rate 45 ml/min
[2024-07-16 07:04] LABS: Calcium* 8.1 mg/dL (8.4-10.6); Glucose* 96 mg/dL (60-115)
[2024-07-16 07:07] LABS: C Reactive Protein* 4.2 mg/dL (0.5-1.0)
[2024-07-16] MEDS: predniSONE 1 MG TABLET 2 MG PO (09:30)
[2024-07-16] MEDS: GABAPENTIN 100 MG CAPSULE PO (09:31)
[2024-07-16] MEDS: APIXABAN 5 MG TABLET PO (09:31)
[2024-07-16] MEDS: predniSONE 5 MG TABLET PO (09:31)
[2024-07-16] MEDS: LOSARTAN POTASSIUM 50 MG TABLET PO (09:31)
[2024-07-16] MEDS: FUROSEMIDE 20 MG TABLET PO (09:31)
--- NOTE | 2024-07-16 10:15 | PM.DS1 ---
DS: Providers Provider Date Seen: 07/16/24 Date of admission: 07/14/24 21:37 Primary care physician: Constanza Cardozo MD Admitting Clin[facility] Consults: 07/14/24 21:37 Consult to Occupational Therapy [CONS] Routine Comment: Reason(s) for OT Consult:: Evaluate and Treat Any Restrictions?:: No Restrictions Consult to Physical Therapy [CONS] Routine Comment: Reason(s) for PT Consult:: Evaluate and Treat Any Restrictions?:: No Restrictions Consult to Telecommunications Field Technician [CONS] Routine Comment: Reason for Consult:: Social Service Consult Attending Physician on discharge: TE[facility] Date of Discharge: 07/16/24 DS: Diagnosis Discharge Diagnosis (1) Sepsis: Status: Resolved Problem details: - 07/14/2024: This morning tachycardic, WBC >25, lactate 2.3, suspected source urinary, now confirmed bacteremia as well Admission labs pending, UC pending CXR shows no new pulmonary infiltrate or patchy airspace opacity to suspected consolidation. No effusion or pneumothorax Zosyn and vancomycin started Normal saline bolus followed by maintenance fluids - 07/15/2024: Improving. No longer acting or feeling septic. Resolved prior to discharge. Urine culture 07/14/2024 growing > 100,000 E coli, sensitive to levofloxacin. First blood culture 07/14 growing E coli, sensitive to levofloxacin. MRSA negative. Patient is discharged to home on oral levofloxacin, renally dosed, to complete a 14 day course. (2) Bacteremia: Status: Acute Problem details: - 07/14/2024: 1 of 2 blood cultures from 07/14/24 growing Gram-negative rods Repeat blood cultures on admission tonight Zosyn and vancomycin given recent hospitalization at [facility] the end of May - 07/15/2024: Urine culture and 2 of 2 blood cultures drawn on 07/14/2024 growing Gram-negative rods. Organism identification and sensitivities are still pending. First blood culture 07/14 growing E coli, sensitive to levofloxacin. Urine culture 07/14/2024 growing > 100,000 E coli, sensitive to levofloxacin. First blood culture 07/14 growing E coli, sensitive to levofloxacin. Repeat blood cultures showing no growth after 24 hours. MRSA negative. Patient is discharged to home on oral levofloxacin, renally dosed, to complete a 14 day course. (3) Acute UTI: Status: Acute Problem details: - 07/14/2024: UA this morning is cloudy, positive nitrites, 3+ LE, > 100 WBC, many bacteria. UC pending Discharged to home on Cipro (refused admission)- discontinued Zosyn and vancomycin as above - 07/15/2024: Consider deescalating vancomycin if still growing only 1 Gram-negative organism. As above, patient is discharged on 14 day course of oral levofloxacin. She will resume methenamine after completing 14 day course of levofloxacin. Ongoing outpatient management with her urologist. (4) Neurogenic bladder: Status: Acute Problem details: - 07/14/2024: Self catheterization at home 6 times daily Vizcarra catheter placed - 07/15/2024: Consider additional strategies to lower risk of recurrent UTIs including topical estrogen, prophylactic antibiotic therapy, and so forth. Patient will continue with self catheterization 6 times daily. Follows with Urology. (5) Rheumatoid arthritis: Status: Acute Problem details: Weaning prednisone, currently on 7 mg daily Methotrexate discontinued following induced pancytopenia Followed by Dr. Nunez, rheumatology Patient is discharged on 5 mg prednisone daily. Outpatient follow-up with Dr. Nunez for ongoing management. (6) History of DVT (deep vein thrombosis): Status: Acute Problem details: Distal left common and popliteal veins noted on venous Doppler 06/22 Continue apixiban. Outpatient follow-up with Dr. Cardozo for ongoing management. (7) High blood pressure: Status: Acute Problem details: Continue losartan, blood pressures stable currently, monitor (8) Left lumbar radiculopathy: Status: Acute Problem details: Developed during hospitalization at [facility] Per PCP, plan to gradually reduce morphine and methocarbamol, discontinue if not required. Lidocaine patch as needed Has home physical therapy - to resume therapies upon discharge to home (9) Anemia: Status: Resolved Problem details: Hemoglobin 9.6, 11.4 this morning Transfused during hospitalization at this hospital in April On Eliquis for DVT Monitor, further workup/labs if continues to drop Hemoglobin remains stable. Not acute. MCV >100. No obvious source of bleeding or concern for blood loss but is on anticoagulant. Recent thrombocytopenia. Further outpatient workup to determine source. DS: Summary Hospital Course Hospital Course: Course of care and details as noted above. E coli bacteremia seeded from urinary source. Urine cultures and blood cultures sensitive to levofloxacin which she is discharged on to complete a 14 day course. Close outpatient follow-up with PCP. Ongoing management with Urology. Remainder of chronic medical comorbidities were monitored and managed with home medications. Status at Discharge Functional status at discharge: independent ambulation Overall status at discharge: patient is back to baseline Time Spent with Patient Time attestation: Total time spent providing and/or coordinating discharge services: Time spent: Greater than 30 minutes Exam Narrative: Exam Narrative: PHYSICAL EXAM General: Pleasant, conversant, NAD Cardiovascular: RRR Pulmonary: No dyspnea Neurological: Alert, answering questions appropriately Skin: Warm, dry. Const: Vital Signs, click to edit/add: Vital Signs - 24 hr 07/15/24 11:00 07/15/24 14:04 07/15/24 15:00 Temperature 97.2 F L 97.2 F L Pulse Rate 57 L Pulse Rate [Left P ulse Oximeter] 66 64 Respiratory Rate 14 12 Blood Pressure [Ri ght Arm] 120/49 L 111/54 L Pulse Oximetry 96 96 Oxygen Delivery Me thod Room Air Room Air 07/15/24 20:21 07/15/24 23:00 07/15/24 23:00 Temperature 97 F L 98.3 F Pulse Rate 67 Pulse Rate [Left P ulse Oximeter] 72 74 Respiratory Rate 16 18 Blood Pressure [Ri ght Arm] 120/49 L 148/63 H Pulse Oximetry 96 97 Oxygen Delivery Me thod Room Air Room Air 07/15/24 23:00 07/16/24 03:00 07/16/24 07:00 Temperature 98.0 F Pulse Rate 74 Pulse Rate [Left P ulse Oximeter] 74 66 Respiratory Rate 18 18 Blood Pressure [Ri ght Arm] 142/57 H Pulse Oximetry 96 Oxygen Delivery Me thod Room Air 07/16/24 07:00 07/16/24 07:00 Temperature 98.3 F Pulse Rate Pulse Rate [Left P ulse Oximeter] 65 65 Respiratory Rate 18 16 Blood Pressure [Ri ght Arm] 158/64 H Pulse Oximetry 96 Oxygen Delivery Me thod Room Air DS: Data Data Completed and Pending Completed studies during hospitalization: Procedures Assistance with Respiratory Ventilation, Less than 24 Consecutive Hours, Continuous Positive Airway Pressure (02/28/22) Introduction of Anti-inflammatory into Peripheral Vein, Percutaneous Approach (02/28/22) Introduction of Other Gas into Respiratory Tract, Via Natural or Artificial Opening (02/28/22) Introduction of Remdesivir Anti-infective into Peripheral Vein, Percutaneous Approach, [employer] (02/28/22) Transfusion of Nonautologous Red Blood Cells into Peripheral Vein, Percutaneous Approach (05/13/24) Pending studies at discharge: Second set of blood cultures no growth after 24 hours Labs on day of discharge: Labs from last 24 hours 07/16/24 06:09 WBC 8.80 RBC 2.88 L Hgb 9.2 L Hct 29.3 L MCV 102 H MCH 32 MCHC 31 L Plt Count 217 Sodium 134 L Potassium 3.8 Chloride 103 Carbon Dioxide 24 Anion Gap 7 BUN 35 H Creatinine 1.2 Estimated Creat Clear 26.33 Estimated GFR 45 Glucose 96 Calcium 8.1 L C-Reactive Protein 4.2 H Preliminary micro results at discharge 07/14/24 22:13 Blood Culture - Preliminary Blood NO GROWTH AFTER 24 HOURS 07/14/24 22:05 Blood Culture - Preliminary Blood NO GROWTH AFTER 24 HOURS Imaging Chest x-ray: Attestation: I have reviewed the pertinent imaging results. Radiologist's impression: No new pulmonary infiltrate or patchy airspace opacity to suspect consolidation. No effusion or pneumothorax. Cardiac size is stable. No pulmonary edema. Discharge Plan Discharge Disposition: Home, Self-Care Date of Admission: 07/14/24 21:37 Attending Provider on Discharge: Tamia Fields Primary Care Provider: Constanza Cardozo I Condition: Improved Anticipated Discharge Date/Time: 07/16/24 09:58 Discharge Medications: New gabapentin 100 mg Capsule 100 mg PO TID Qty: 90 0RF levofloxacin 250 mg tablet 250 mg PO DAILY Qty: 14 0RF prednisone 5 mg Tablet 5 mg PO DAILY Qty: 30 0RF Continued methenamine hippurate 1 gram tablet 1 g PO BID multivitamin [Multiple Vitamins] Tablet 1 tab PO QDAY aspirin [Adult Aspirin Regimen] 81 mg tablet,delayed release (DR/EC) 81 mg PO DAILY Magic Mouthwash (Lidocaine/Benadryl/Maalox) 120 mL suspension 5 ml PO Q4H PRNQty: 120 0RF Rx Instructions: Lidocaine Viscous 2 % mucosal solution 40 mL; Maalox 200 mg-200 mg-20 mg/5 mL oral suspension 40 mL; Benadryl 12.5 mg/5 mL oral elixir 40 mL; Per 120 mL SWISH AND SPIT. MAY COMPOUND IF FIRST PRODUCT IS NOT AVAILABLE. Eliquis 5 mg tablet 5 mg PO BID Qty: 60 0RF Rx Instructions: 10 mg twice daily for 7 days. Then 5 mg twice a day until follow up. gabapentin 100 mg capsule 100 mg PO 3XD calcium carbonate-vitamin D3 [Calcium 600 with Vitamin D3] 600 mg-12.5 mcg (500 unit) capsule 1 cap PO DAILY losartan 50 mg tablet 50 mg PO DAILY furosemide 20 mg tablet 20 mg PO BID alendronate 70 mg tablet 70 mg PO SILVA Patient Comments: TAKE 1 TABLET BY MOUTH EVERY 7 DAYS ON AN EMPTY STOMACH. REMAIN UPRIGHT FOR 30 MINUTES. TAKE WITH 8 OUNCES OF WATER acetaminophen [Acetaminophen Extra Strength] 500 mg tablet 1,000 mg PO Q6H PRN benzocaine 20 % gel 1 applic MUCOUS MEMBRANE QID PRN Rx Instructions: Apply 0.5 g topically to affected area(s) 4 times daily if needed for Tooth Pain (for lip pain). Apply a thin layer to affected areas inside mouth up to 4 times daily. clotrimazole 1 % cream 1 applic TOPICAL BID Rx Instructions: Apply topically to affected area(s) two times daily. Discontinued prednisone 1 mg tablet 2 mg PO DAILY Discharge Orders: Discharge Order (Routine); Ordered 07/16/24 Ordered By: Tamia Fields Patient Education: Prednisone (By mouth), Gabapentin (By mouth), Levofloxacin (By mouth), Kidney Infection (GEN), Bacteremia (GEN) Additional Instructions: MEDICATIONS: Your prednisone dose is now 5mg daily daily Continue gabapentin as recently prescribed Complete all of the levofloxacin. DO NOT TAKE THE CIPROFLOXACIN THAT WAS PRESCRIBED IN THE EMERGENCY DEPARTMENT. RESTART METHENAMINE AFTER COMPLETING THE LEVOFLOXACIN (DO NOT TAKE BOTH OF THEM TOGETHER). Activity Level: No Restrictions and Other Activity Detail: RESUME ALL HOME CARES Discharge Diet: Regular Follow Up Appointments: Constanza Cardozo MD [Primary Care Provider] - 07/19/24 1:30 pm ([facility] for post hospital follow-up.) Forms: Vserv Info Instructions
--- NOTE | 2024-07-16 11:15 | PC.SOCIAL ---
Discharge Planning: SW spoke with patient and patient's fiance about who provides the Home Health services. Both patient and partner could not remember the name. SW and provider looked in [facility] and found that patient receives services through [facility]. SW called [facility] to confirm she receives services, intake confirmed that she does. PRETTY provided fax number to discharge coordinator Rita who will send the discharge summary to resume home health services. Fax number is [phone].
--- NOTE | 2024-07-16 11:47 | PC.NURSE ---
Discharge: pt VSS. a/o x4, patient on RA, tolerating a reg. diet. Discharged to home today at 1055 accompanied by Hilton. Patient's higginbotham removed tip intact. IV removed. Discharge instructions signed and patient verbalized understanding of instructions.
== END 2024-07-16 10:55 | disposition home or self-care (01) | DRG 872 ==
PROVIDERS: Admitting Provider Physician Assistant; PCP Family Medicine; Visit Provider Family Medicine
DX: A41.51 Sepsis due to Escherichia coli [E. coli] (principal); N39.0 Urinary tract infection, site not specified; Z16.11 Resistance to penicillins; B96.20 Unspecified Escherichia coli [E. coli] as the cause of diseases classified elsewhere; N31.9 Neuromuscular dysfunction of bladder, unspecified; M06.9 Rheumatoid arthritis, unspecified; Z86.718 Personal history of other venous thrombosis and embolism; Z79.01 Long term (current) use of anticoagulants; I10 Essential (primary) hypertension; M54.16 Radiculopathy, lumbar region; D64.9 Anemia, unspecified; T45.515A Adverse effect of anticoagulants, initial encounter; D72.829 Elevated white blood cell count, unspecified; R00.0 Tachycardia, unspecified; R50.9 Fever, unspecified; R11.10 Vomiting, unspecified
CPT/HCPCS: 36415; 51701; 80048; 80053; 83605; 85025; 85027; 86140; 87040; 87081; 87800; 97116; 97162; 97165; 97530; 97535; A9270; J2543; J3372; J7030; J7512

== ENCOUNTER 2024-07-30 12:44 | Outpatient (CLI) | payer MEDICARE, BC, SELFPAY ==
--- NOTE | 2024-07-30 13:00 | CRLHL7_ITS ---
For Patients: As a result of the Century Cures Act, medical imaging exams and procedure reports are released immediately into your electronic medical record. You may view this report before your referring provider. If you have questions, please contact your health care provider. Indication: Lung nodules Technique: Noncontrast CT chest Please note that all CT scans at this facility use dose modulation, iterative reconstruction, and/or weight-based dosing when appropriate to reduce radiation dose to as low as reasonably achievable. Comparison: 05/14/2024 Findings: Cardiomegaly. Vascular calcifications. Right thyroid lobe nodule is again noted which measures 3.4 cm. This has been previously biopsied. Similar sub cm mediastinal lymph nodes. Postop changes to the left humerus. Nodular density within the inferolateral right middle lobe is stable, measuring 1.3 cm. Biapical pleural-parenchymal scarring noted. Scarring in both lung bases also present. No pleural effusion or acute CHF. Stable tiny nodule associated with the left lateral lung, series 4, image 29. Unchanged nodule within the superior segment of the right lower lobe adjacent to the fissure which measures 1.3 cm. Stable breast parenchyma. Increased thoracic kyphosis. No fracture. Impression: No significant change since the prior study. Please note that all CT scans at this facility use dose modulation, iterative reconstruction, and/or weight-based dosing when appropriate to reduce radiation dose to as low as reasonably achievable. Dictated by Elieso Gutierrez MD @ 07/31/2024 12:11:37 PM (Electronically Signed)
== END 2024-07-30 12:45 | disposition home or self-care (01) ==
LOC: CT 12:47
PROVIDERS: PCP Family Medicine; Visit Provider Internal Medicine
DX: R91.8 Other nonspecific abnormal finding of lung field (principal)
CPT/HCPCS: 71250

== ENCOUNTER 2025-03-23 15:23 | Emergency (ER) | payer MEDICARE, BC, SELFPAY ==
--- OUTSIDE RECORDS SUMMARY | 2025-03-23 15:25 | XMS_ITS | Clinical Summary ---
Author Organization [employer] [facility] Address [address] [place] [address] Care Team Providers Care Renderer Name Role Phone Beto Taylor CREDENTIALER Unavailable Unavailable Sharif Nunez MD Unavailable + [phone] Riley Camacho MD Unavailable [phone] Constanza Cardozo MD Primary Care Provider Inga Caballero MD Unavailable [phone] Allergies Active AllergyReactionsCriticalityNoted DateCommentsBlood-Group Specific SubstanceOther - Describe In Comment Field06/27/2024 Patient has an Anti-D antibody. Blood products may be delayed. Draw patient 24 hours prior to transfusion. For [facility] testing, draw one red top and two purple top tubes for all Type and Screenorders. DyrszorztXdchzgfauclylq92/07/2019DoxycyclineAtopic HbffytsshtJxslxq55/10/2025 Significant lip blistering/ pain JnlxypppqeiNeqerdlg23/04/5804SkxscgzlqqlIiedgfdewtjmvv37/27/2018Lisinopril *Ovhmbwx4605/23/2018 Increased creatinine Methotrexate*Mjsiycd9812/21/2017 Did not feel well Opioids - Morphine IyvkkkdrkMsmypxyi57/19/2023OxycodoneVomiting,*Unknown 08/11/2011 No reaction listed in [facility] Sulfa (Sulfonamide Antibiotics)*Ajsjizw9912/03/2015 On clinic list No reaction listed in [facility] Hydrocodone-RusxgmochufmuLsgvebyo95/01/2015 Medications MedicationSigDispense QuantityRefillsLast FilledStart DateEnd DateStatus CALCIUM CARBONATE/VITAMIN D2 (CALCIUM + VITAMIN D ORAL) Take 1 tablet by mouth once daily.01/11/2010ctive multivitamin-minerals therapeutic tablet Take 1 tablet by mouth once daily.Active acetaminophen (TYLENOL EXTRA STRENGTH) 500 mg tablet Indications:painTake 2 tablets by mouth every 6 hours if needed. Max acetaminophen dose: 4000mg in 24 hrs.Active Catheter 14 Fr Indications:Urinary retentionColoplast Speedie Cath 6 times each day as directed 180 Each 3Active predniSONE 1 mg tablet Take 2 Tablets by mouth once daily.5Active methenamine hippurate (HIPREX) 1 gram tablet Indications:Recurrent UTITake 1 Tablet (1 g) by mouth two times daily. 60 Tablet 5Active losartan (COZAAR) 50 mg tablet Indications:HTN (hypertension)Take 1 Tablet (50 mg) by mouth once daily. 100 Tablet 5Active alendronate (FOSAMAX) 70 mg tablet Indications:Age related osteoporosis, unspecified pathological fracture presence Take 1 Tablet (70 mg) by mouth once a week in the morning. ON AN EMPTY STOMACH AND WITH FULL GLASS OF WATER DO NOT LIE DOWN FOR 1 HOUR 13 Tablet 5Active hydroxychloroquine (PLAQUENIL) 200 mg tablet Take 1 Tablet by mouth two times daily.5Active furosemide (LASIX) 20 mg tablet Indications:Bilateral lower extremity edemaTake 1 Tablet (20 mg) by mouth two times daily. 186 Tablet 5Active alendronate (FOSAMAX) 70 mg tablet Indications:Age related osteoporosis, unspecified pathological fracture presence Take 1 Tablet (70 mg) by mouth once a week in the morning. Take on empty stomach with full glass ofwater. Do not lie down for 1 hr. 12 Tablet /Discontinued furosemide (LASIX) 20 mg tablet Indications:Bilateral lower extremity edemaTake 1 Tablet (20 mg) by mouth two times daily. 200 Tablet /09/2024Discontinued losartan (COZAAR) 50 mg tablet Indications:HTN (hypertension)Take 1 Tablet (50 mg) by mouth once daily. 100 Tablet /Discontinued(Reorder (E-cancel not sent)) predniSONE 5 mg tablet Take 5 mg by mouth once daily with a meal.Discontinued(*Med complete/Regimen complete/Level of care change) methocarbamoL 500 mg tablet Indications:Muscle spasmOne oral twice daily as needed muscle spasm 10 Tablet Discontinued(*Med complete/Regimen complete/Level of care change) furosemide (LASIX) 20 mg tablet Indications:Bilateral lower extremity edemaTAKE 1 TABLET(20 MG) BY MOUTH TWICE DAILY 180 Tablet Discontinued(Reorder (E-cancel not sent)) alendronate (FOSAMAX) 70 mg tablet Indications:Age related osteoporosis, unspecified pathological fracture presence TAKE 1 TABLET(70 MG) BY MOUTH 1 TIME A WEEK IN THE MORNING ON AN EMPTY STOMACH AND WITH FULL GLASS OF WATER. DO NOT LIE DOWN FOR 1 HOUR 13 Tablet Discontinued(Reorder (E-cancel not sent)) Active Problems ProblemNoted DateDiagnosed DateHistory of xofizqivhnpf66/29/2025 Overview (03/07/2025): Secondary to methotrexate. Resolved with discontinuation of methotrexate. Mass of right sttsrr1105/19/2024 Overview (03/07/2025): - 1.5 cm seen on chest CT 05/15/24. Recommended diagnostic mammo, not completed - Reviewed with radiology, Dr. Eliseo Gutierrez on 03/07/25. Finding present since at least 2022. He believes represents normal tissue. Not of concern and does not require additional evaluation. White coat syndrome with klpyxfhnggwn19/20/2023ge-related osteoporosis without current pathological xixbzjqq49/18/2023 Overview (10/11/2022): - Fosamax started 10/16/2018 for osteopenia with elevated hip fracture risk. 35 mg weekly d/t ckd - Endo E-consult at [facility] 10/09/2020 with recommendation to continue fosamax for 5 years, ok to increase to typical dosing Post-traumatic osteoarthritis, left wrist/Neurogenic bladder 03/10/2022 Overview (03/07/2025): Self caths Follows with [facility] Closed fracture of left proximal fcqlwbl3103/10/2022losed fracture of distal radius and ulna03/10/2022Mass of middle lobe of right lung12/20/2021 Overview (03/07/2025): From 07/2024 pulmonology note, Dr. Dias: ASSESSMENT: RML nodule, 1.7 x 1.5 cm in 11/2021 --> stable 01/2023 --> stable 07/2023 --> stable 07/2024 RLL nodule, 8-9 mm in 05/2022 --> possibly slightly larger in 01/2023 --> stable 07/2023 -->stable 16472 HTN HLD RA Obesity, Body mass index is 26.07 kg/m??. Nodules are stable. PLAN: - Her nodules have been stable for over 2 years. The pt would prefer to discontinue surveillance and I agree with this. Return to clinic planned for: PRN Thyroid dqmuww4412/20/2021 Overview (03/07/2025): Incidental on 11/[address] Thyroid US 12/2021 with 3.2 cm R thyroid nodule FNA 01/15 benign Thyroid US stable annually x3. Gen surg recommends no additional monitoring Presence of jpqdxklbxndqgxe91/01/1135Qcgwquqtwpd73/03/2021Generalized zubpevtdxkiigt73/02/2019Personal history of other venous thrombosis and embolism 06/29/2018 Overview (03/07/2025): LLE DVT in the context of prolonged systemic illness, pancytopenia 2/2 methotrexate. - completed 3 mos of DOAC Sensorineural hearing loss (SNHL) of both ears06/29/2018 Overview (10/08/2021): She has hearing aids ([facility] in [place]). Obesity with body mass index 30 or wiwptqt6712/21/2017Arthritis, rheumatoid 08/17/2017 Overview (03/07/2025): Follows with Dr. 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 In 2018, she saw Dr. Butler for high blood pressures. At that time, carvedilol was started with the intention to stop diltiazem. However, she continues on both medications. Furosemide was increase to bid at thattime for blood pressure benefit. She had been [...] low dose GUILLERMO/ARB if she is willing. HypertensionHyperlipidemia Resolved Problems ProblemNoted DateDiagnosed DateResolved DateDeep vein thrombosis (DVT) of left lower humtcqsoe96Transaminitisellulitis of left lower jyoqzosez78Left leg mgaayusqlbpg98/25/2024 01/19/2024ellulitis of left leg4Retention of urine02/01/2016 03/07/2025 Overview (10/08/2021): She has a medical need to catheterize 6x/day to prevent UTIs, to prevent kidney failure related to urinary retention, and to prevent discomfort related to urinary retention. Last Assessment & Plan: She is here today because [facility] will not supply her with 6 catheters /day. They told herthat medicare would only cover 4 catheters/day. She only has 10 catheters left and needs a supply. I contacted Verónica Escalante NP [facility]. She sees her on a routine basis. She will provide Vanessa with enough catheters to get by until her order from [facility] is delivered. She will drive to [place] to sisal picker the catheters. I had sent Dr. Lopez's order and visit note to [facility] in [place]. Renay Renee will process the order and have the catheters sent to her home. She felt that they would arrive by next Monday. Vanessa had been up since 5:00 very concerned that she would not be able to get the catheters. She voiced being grateful for the care today. Encounters DateTypeDepartmentCare YnspRvgrcwypdeg95/18/2025Results Follow-Up [address] [address] Constanza Cardozo MD 03/07/2025 1:05 PM CSTOffice Visit [address] [address] Constanza Cardozo MD Medicare ANNUAL (subsequent) Visit (annual)03/07/20256299Mskyyc51/06/2025Refill [address] [address] Constanza Cardozo MD Refill Request (Alendronate)02/28/2025Refill [address] [address] Constanza Cardozo MD Refill Request (Furosemide)02/03/2025Telephone [address] [address] Meena Kumari MD Results (ultrasound)01/31/2025 1:00 PM CSTAncillary Procedure [facility] [address] [place] [address] 01/31/20257642Oepwid87/21/2025Telephone [facility] [address] [place] [address] [address] Meena Kumari MD Testing (Needs 1 year follow up US thyroid--right thyroid nodule)12/25/2024 11:15 AM CDTOffice Visit [facility] [address] [place] [address] Yaya Tapia DPM Consult (Left foot callus )12/25/2024Travelfrom Last 3 Months Immunizations ImmunizationAdministration DatesNext DueCOVID-19 VACCINE COMIRNATY (PFIZER- BIONTECH 30MCG/0.3ML) 12YO+ PFS4COVID-19 VACCINE SPIKEVAX (MODERNA 50MCG/0.5ML) 12YO+ PFS3COVID-19 vaccine (Moderna 100mcg/0.5mL) PF, MDV 08/25/2021,02/23/2021,08/03/2020,1COVID-19 vaccine (Pfizer-BioNTech 30mcg/0.3mL) 12YO+ BIVALENT BALDEV MDV12DT (Age < 7 years)07/09/2005 Influenza Virus, Algguqcgobs29/08/2020,12/24/2015,01/19/2015Influenza, High-dose Qecogxerrfr07/31/2024,01/21/2019,01/11/2018,02/06/2017,12/24/2015,01/19/2015 Influenza, High-dose Quadrivalent Cksrpposhrl94/07/2023,01/04/2022,01/26/2021 Influenza, IIV3 (Age >=3 years)01/13/2014,01/22/2013,01/16/2012Influenza, Inactivated AIIV4 (Age 65+ Years) Preserv Free10/08/2020Pneumococcal Poly,23- Valent (Pneumovax)07/09/2005Pneumococcal conj 13-Valent (Prevnar 13)01/19/2015 Tdap104/04/2015 Family History Medical HistoryRelationNameCommentsCoronary artery diseaseBrotherDiabetesBrother Heart attackBrotherHypertensionBrotherCataractsFatherRheum arthritisMother RelationNameStatusCommentsBrotherFatherMother Social History Tobacco UseTypesPacks/DayYears UsedDateSmoking Tobacco: NeverSmokeless Tobacco: Never Tobacco Cessation:Counseling Given: Yes Alcohol UseStandard Drinks/WeekCommentsNo0 (1 standard drink = 0.6 oz pure alcohol)PHQ-2AnswerDate RecordedPHQ-2 TOTAL PFFWH791Social Connections AnswerDate RecordedDo you often feel lonely or isolated from those around you?0 06/24/2024lcohol UseAnswerDate RecordedHow often do you have a drink containing alcohol?verage Number of DrinksNot on file03/07/2025How often do you have five or more drinks on one occasion?Financial Resource Strain AnswerDate RecordedDifficulty of Paying Living Mmzobhga225ifficulty of Paying Living ExpensesNot on file02/06/2024Food InsecurityAnswerDate RecordedDo you worry your food will run out before you are able to buy more? Transportation NeedsAnswerDate RecordedDoes lack of transportation keep you from medical appointments?Does lack of transportation keep you from work, meetings or getting things that you need?Housing StabilityAnswerDate RecordedWhat is your housing situation today?Interpersonal Safety AnswerDate RecordedAre you being hit, kicked, pushed or yelled at (see row info)?No06/24/2024Interpersonal Safety Abuse 12 - 18Not on file06/24/2024 Interpersonal Safety Ambulatory VulnerabilityNot on 06/24/2024Utilities AnswerDate RecordedDo you have trouble paying for utilities (for example, heat, electricity, water, phone)?CommentsNoSex and Gender InformationValueDate RecordedSex Assigned at BirthNot on fileLegal SexFemale 02/12/2013 3:06 PM CSTGender IdentityNot on fileSexual OrientationNot on file Last Filed Vital Signs Vital SignReadingTime TakenCommentsBlood Uwdrihbn559/6103/07/2025 2:09 PM SHEARING SHED HAND Censo154303/07/2025 1:00 PM UDCOsezoelymoc67.6 ??C (97.8 ??F)03/07/2025 1:00 PM CSTRespiratory Ylks309909/18/2024 12:38 PM CDTOxygen Tjrjkpnmez76%03/07/2025 1:00 PM CSTInhaled Oxygen Concentration--Hhpbsb49.8 kg (136 lb 3.2 oz)03/07/2025 1:00 PM APQUniinu552.7 cm (5' 0.5)03/07/2025 1:00 PM CSTBody Mass Index26.16 03/07/2025 1:00 PM SHEARING SHED HAND Plan of Treatment DateTypeDepartmentCare Team (Latest Contact Info)Rshysczufmz87/30/2025 1:30 PM CSTAncillary Procedure [facility] [address] [place] [address] Health MaintenanceDue DateLast DoneCommentsZoster (shingles) series for age 50+ (1 of 2)12/04/1958RSV vaccine for adults or (1 - 1-dose 75+ series) 12/04/2014COVID-19 vaccine series ( season), 02/13/2023, 01/04/2022, Additional history existsInfluenza Vaccine (#1) , 01/02/2020, 01/02/2020, Additional history existsTetanus /11/2015BMI (ht and wt on same day) for age 18+03/07/2026 03/07/2025, 08/08/2024, 05/27/2024, Additional history existsDepression screening for age 12+, 01/19/2024, 01/18/2023, Additional history existsMedicare Wellness for age 65+, 01/19/2024, 01/17/2023, Additional history existsPneumococcal series for age 50+Completed 01/19/2015, 07/09/2005DEXA/DXA scan for age 65+Ihqrfngcp51/13/2023, 12/14/2020 (Verified in Care Everywhere or Patient Record)Hepatitis B series for 19+Aged OutNo longer eligible based on patient's age to complete this topic Medical Devices ImplantedTypeAreaManufacturerDevice IdentifierShelf Expiration DateModel / Serial / LotLead Bladder 28cm Interstim Tined 3mm Spacing - [id number] Implanted:Qty: 1 [facility] 05/04/[facility] SacrumMedtronic Pain Fdftbbq98/30/[id number]# / / [id number] 7.7mm 14cc Interstim Ii - [id number] Implanted:Qty: 1 on 05/11/2016 by Cesar Groves MD at [facility]/A: SacrumMedtronic Pain Grlzazr9610/07/[id number]# / / [id number] Bone 40g Simplex P Non Atb Mv - [id number] Implanted:Qty: 2 on [facility]/12/2017 [facility] KneeStryker Bhiiuwkhjckz18/31/[id number]# / / [id number] Bone 40g Simplex P Non Atb Mv - [id number] Implanted:Qty: 1 on 07/12/2017 [facility] KneeStryker Flelntqkxvrg72/31/[id number]# / / [id number] - [id number] Implanted:Qty: 1 on 07/12/2017 [facility] KneeStryker Jnleogttvruv92/01/[id number]-F-825 / / [id number]:Triathlon X3 Asymmetric guvvamtQ2314-E-258 - [id number] Implanted:Qty: 1 on 07/12/2017 [facility] KneeStrybanner Jvfvexmsygrx11/16/[id number]-P-298 / / [id number]:Triathlon primary tibial vqjoktzvwH8207-V-591 - [id number] Implanted:Qty: 1 on 07/12/2017 [facility] KneeStrybanner Cnfdrrfjyost90/25/[id number]-W-171 / / [id number]:Triathlon cruciate retaining fxfvqqyA5869-T-689 - [id number] Implanted:Qty: 1 on 07/12/2017 [facility]: Rins2118-N-071 / / [id number]:X3 triathlon CS INSExplantedTypeAreaManufacturerDevice IdentifierShelf Expiration DateModel / Serial / LotLead Intrdcr Bladder Interstim - [id number] Explanted:Qty: 1 on 05/04/2016 [facility]: SacrumMedtronic Pain Jgjzajj0505/27/[id number]# / / [id number] Procedures Procedure NamePriorityDate/TimeAssociated DiagnosisCommentsT4,FREERoutine 03/07/2025 2:32 PM SHEARING SHED HAND Abnormal thyroid blood test Abnormal results of thyroid function studies CIMJtihlsw68/12/2025 2:32 PM SHEARING SHED HAND Prediabetes Abnormal thyroid blood test HEMOGLOBIN V1EXprzqvn31/12/2025 2:32 PM SHEARING SHED HAND Prediabetes CBC W PLT NO ASEBJljvhzd46/12/2025 2:32 PM SHEARING SHED HAND History of pancytopenia BASIC METABOLIC IIJPRVdyelxz52/12/2025 2:32 PM SHEARING SHED HAND HTN (hypertension) US THYROID/RILTPKYUYIFTitaprs02/07/2025 1:10 PM SHEARING SHED HAND Thyroid nodule XR DXA BONE DENSITY 2 SITES PURLTUadlmwa61/13/2023 10:59 AM CDT Age-related osteoporosis without current pathological fracture from Last 3 Months or Most Recently Relevant to Health Maintenance Results * (ABNORMAL) HEMOGLOBIN A1C (03/07/2025 2:32 PM SHEARING SHED HAND)ComponentValueRef RangeTest MethodAnalysis TimePerformed AtPathologist SignatureHEMOGLOBIN A1C6.1(H)<5.7 % 03/08/2025 7:27 AM CSTQUEST DIAGNOSTICSComment: For someone without known diabetes, a hemoglobin A1c value between 5.7% and 6.4% is consistent with prediabetes and should be confirmed with a follow-up test. For someone with known diabetes, a value <7% indicates that their diabetes is well controlled. A1c targets should be individualized based on duration of diabetes, age, comorbid conditions, and other considerations. This assay result is consistent with an increased risk of diabetes. Currently, no consensus exists regarding use of hemoglobin A1c for diagnosis of diabetes for children. Specimen (Source)Anatomical Location / LateralityCollection Method / Volume Collection TimeReceived TimeBloodBLOOD SPECIMEN / UnknownQuest Collect / Unknown 03/07/2025 2:32 PM CST03/07/2025 2:32 PM SHEARING SHED HAND Narrative Authorizing ProviderResult TypeResult StatusRobyn Erika Cardozo MDCHEMISTRYFinal ResultPerforming OrganizationAddressCity/State/ZIP CodePhone Number [facility] [place] [facility] [place] [address], * (ABNORMAL) TSH (03/07/2025 2:32 PM SHEARING SHED HAND)ComponentValueRef RangeTest Method Analysis TimePerformed AtPathologist SignatureTSH0.23(L)0.40 - 4.50 mIU/L 03/08/2025 6:35 AM CSTQUEST DIAGNOSTICSSpecimen (Source)Anatomical Location / LateralityCollection Method / VolumeCollection TimeReceived TimeBloodBLOOD SPECIMEN / UnknownQuest Collect / Otuhgas3503/07/2025 2:32 PM CST03/07/2025 2:32 PM SHEARING SHED HAND Narrative Authorizing ProviderResult TypeResult StatusRobyn Erika CASAREZHEMISTRYFinal ResultPerforming OrganizationAddressCity/State/ZIP CodePhone Number [facility] [address] [place] [address], * CBC W PLT NO DIFF (03/07/2025 2:32 PM SHEARING SHED HAND)ComponentValueRef RangeTest Method Analysis TimePerformed AtPathologist SignatureWHITE BLOOD CELL COUNT8.23.8 - 10.8 Thousand/uL03/08/2025 4:22 AM CSTQUEST DIAGNOSTICSRED BLOOD CELL COUNT 3.943.80 - 5.10 Million/uL03/08/2025 4:22 AM CSTQUEST DIAGNOSTICSHEMOGLOBIN 12.311.7 - 15.5 g/dL03/08/2025 4:22 AM CSTQUEST TEMYASPBYHWPHJBSWOFUG50.235.9 - 46.0 %03/08/2025 4:22 AM CSTQUEST UCNDXRVXMRAKLD54.481.4 - 101.7 fL 03/08/2025 4:22 AM CSTQUEST OQIPGSCGQTEGQT98.227.0 - 33.0 pg03/08/2025 4:22 AM CSTQUEST ZPAXMVWKCRTOKPB82.131.6 - 35.4 g/dL03/08/2025 4:22 AM CSTQUEST YMYNOFZCTMZFPM20.011.0 - 15.0 %03/08/2025 4:22 AM CSTQUEST DIAGNOSTICSPLATELET BMSHX313771 - 400 Thousand/uL03/08/2025 4:22 AM CSTQUEST KHTBROFUEIWURN56.17.5 - 12.5 fL03/08/2025 4:22 AM CSTQUEST DIAGNOSTICSSpecimen (Source)Anatomical Location / LateralityCollection Method / VolumeCollection TimeReceived Time BloodBLOOD SPECIMEN / UnknownQuest Collect / Glbtzmb6003/07/2025 2:32 PM SHEARING SHED HAND 03/07/2025 2:32 PM SHEARING SHED HAND Narrative Authorizing ProviderResult TypeResult StatusRobdiogo Cardozo MDHEMATOLOGYFinal ResultPerforming OrganizationAddressCity/State/ZIP CodePhone Number [facility] [address] [place] [address], [place] [phone] * T4,FREE (03/07/2025 2:32 PM SHEARING SHED HAND)ComponentValueRef RangeTest MethodAnalysis TimePerformed AtPathologist SignatureT4, FREE1.50.8 - 1.8 ng/dL03/08/2025 6:35 AM CSTQUEST DIAGNOSTICSSpecimen (Source)Anatomical Location / Laterality Collection Method / VolumeCollection TimeReceived TimeBloodBLOOD SPECIMEN / UnknownQuest Collect / Kusnlgn4603/07/2025 2:32 PM CST03/07/2025 2:32 PM SHEARING SHED HAND Narrative Authorizing ProviderResult TypeResult StatusRobyn Erika Cardozo MDCHEMISTRYFinal ResultPerforming OrganizationAddressCity/State/ZIP CodePhone Number [employer] [facility] [address] [place] [address], * (ABNORMAL) BASIC METABOLIC PANEL (03/07/2025 2:32 PM SHEARING SHED HAND)ComponentValueRef RangeTest MethodAnalysis TimePerformed AtPathologist AzocduzdyXQJFLG566766 - 146 mmol/L105/09/2024 4:38 AM CSTQUEST DIAGNOSTICSPOTASSIUM4.43.5 - 5.3 mmol/L 03/08/2025 4:38 AM CSTQUEST DIAGNOSTICSCARBON DVNMBTO9093 - 32 mmol/L 03/08/2025 4:38 AM CSTQUEST VRSGGFPLOMGIHUMZHN934(H)65 - 99 mg/dL03/08/2025 4:38 AM CSTQUEST DIAGNOSTICSComment: ? Fasting reference interval For someone without known diabetes, a glucose value between 100 and 125 mg/dL is consistent with prediabetes and should be confirmed with a follow-up test. CALCIUM9.58.6 - 10.4 mg/dL03/08/2025 4:38 AM CSTQUEST DIAGNOSTICSCREATININE1.08 (H)0.60 - 0.95 mg/dL03/08/2025 4:38 AM CSTQUEST DIAGNOSTICSBUN/CREATININE RATIO 31(H)6 - 22 (calc)03/08/2025 4:38 AM CSTQUEST FSETCSGLULXEPRA11(L)> OR = 60 mL/min/1.73w99003/08/2025 4:38 AM CSTQUEST DIAGNOSTICSUREA NITROGEN (BUN)34(H)7 - 25 mg/dL03/08/2025 4:38 AM CSTQUEST DIAGNOSTICSELECTROLYTE YORTGEU81 - 17 mmol/L (calc)03/08/2025 4:38 AM CSTQUEST OADONMPTXPRFLKLOLLA67135 - 110 mmol/L 03/08/2025 4:38 AM CSTQUEST DIAGNOSTICSSpecimen (Source)Anatomical Location / LateralityCollection Method / VolumeCollection TimeReceived TimeBloodBLOOD SPECIMEN / UnknownQuest Collect / Juagcjq5203/07/2025 2:32 PM CST03/07/2025 2:32 PM SHEARING SHED HAND Narrative Authorizing ProviderResult TypeResult StatusRobyn Erika Cardozo MDCHEMISTRYFinal ResultPerforming OrganizationAddressCity/State/ZIP CodePhone Number [facility] [place] [address] [place] [address], * THYROID/PARATHYROID (01/31/2025 1:10 PM SHEARING SHED HAND)Anatomical RegionLaterality ModalityTHYROIDUltrasoundSpecimen (Source)Anatomical Location / Laterality Collection Method / VolumeCollection TimeReceived Time01/31/2025 1:40 PM SHEARING SHED HAND Impressions 01/31/2025 1:40 PM SHEARING SHED HAND Stable right thyroid lobe nodule. Dictated by Eliseo Gutierrez MD @ 01/31/2025 1:40:56 PM (Electronically Signed) Narrative 01/31/2025 1:40 PM SHEARING SHED HAND For Patients: As a result of the Century Cures Act, medical imaging exams and procedure reports are released immediately into your electronic medical record. You may view this report before your referring provider. If you have questions, please contact your health care provider. INDICATION: Thyroid nodule COMPARISON: 02/02/2024 TECHNIQUE: Awad scale and color Doppler images were acquired of the thyroid gland. FINDINGS: Isthmus measures 3.2 millimeters. Solid and cystic nodule right thyroid lobe measures 3.7 x 2.9 x 3.4 cm, previously measuring 3.6 x 3.2 x 2.8 cm. The right lobe measures 4.8 x 3.4 x 3.9 cm and the left lobe measures 3.5 x 1.7 x 1.4 cm in size. The color Doppler images demonstrate normal vascularity. There is no evidence of cervical lymphadenopathy or parathyroid mass. Procedure Note Eliseo Gutierrez MD - 01/31/2025 For Patients: As a result of the Cures Act, medical imagingexams and procedure reports are released immediately into your electronicmedical record. You may view this report before your referring provider.If you have questions, please contact your health care provider. INDICATION: Thyroid nodule COMPARISON: 02/02/2024 TECHNIQUE: Awad scale and color Doppler images were acquired of the thyroid gland. FINDINGS: Isthmus measures 3.2 millimeters. Solid and cystic nodule right thyroidlobe measures 3.7 x 2.9 x 3.4 cm, previously measuring 3.6 x 3.2 x 2.8 cm.The right lobe measures 4.8 x 3.4 x 3.9 cm and the left lobe measures 3.5x 1.7 x 1.4 cm in size. The color Doppler images demonstrate normalvascularity. There is no evidence of cervical lymphadenopathy orparathyroid mass. IMPRESSION: Stable right thyroid lobe nodule. Dictated by Eliseo Gutierrez MD @ 01/31/2025 1:40:56 PM (Electronically Signed) Authorizing ProviderResult TypeResult StatusKatja Kumari MDUSFinal Result * (ABNORMAL) XR DXA BONE DENSITY 2 SITES AXIAL (10/06/2022 10:59 AM CDT) Anatomical RegionLateralityModalitySpine, HIPS, HIPL, HIPROtherSpecimen (Source)Anatomical Location / LateralityCollection Method / VolumeCollection TimeReceived Time Impressions 10/11/2022 2:15 PM CDT Osteoporosis. RECOMMENDATIONS: [...] greater than 5 years. Na Valdivia PA-C [facility] 10/11/2022 Narrative 10/11/2022 2:15 PM CDT For Patients: Results are automatically released to your [facility] (Drivable) account once available, in compliance with federal regulations. This means that you may see your results before your provider has had a chance to review them. Please allow 2-3 business days for your provider to comment on the results. XR DXA Bone Mineral Density (BMD) EXAM LOCATION: [facility] [address] [facility] [id number] PATIENT NAME: Vanessa Andino DATE OF : [...] two scanners are made by the same business services assistant. PROCEDURE: Dual-energy x-ray absorptiometry performed with routine [...] Osteoporosis: T-score at or below -2.5 SD Authorizing ProviderResult TypeResult StatusRobyn Erika Cardozo MDDEXAFinal Result from Last 3 Months or Most Recently Relevant to Health Maintenance Insurance Advance Directives TypeDate RecordedPatient RepresentativeExplanationPOLST07/14/2017 8:01 AM 01/12/2017Power of Attorney07/14/2017 7:57 AM01/06/2017Healthcare Directive 07/14/2017 7:57 AM10 * Full Code (Latest Code Status on File) Date ActivatedDate InactivatedComments06/22/2024 12:56 AM07/01/2024 4:10 PMQuestion AnswerCommentsCode Status Discussion:* Unable to Assess Preferences, Provider to review later * Full Code Date ActivatedDate InactivatedComments07/12/2017 7:10 AM07/14/2017 4:57 PM * Full Code Date ActivatedDate InactivatedComments05/11/2016 10:33 AM05/11/2016 7:12 PM * Full Code Date ActivatedDate InactivatedComments05/04/2016 7:01 AM05/04/2016 3:07 PM Care Teams Team MemberRelationshipSpecialtyStart DateEnd Date Constanza Cardozo MD [address] [place] [address] PCP - GeneralFamily Practice08/25/22 [place], Beto Love [facility] Social Worker07/13/17 Sharif Nunez MD [address] [facility] [address] [place] [address] Rheumatology10/08/21 Riley Camacho MD [address] [facility] [place] [address] Surgery - Urology08/25/22 [place] [address] [place] [address] EndocrinologyEndocrinolog04/02/24
[2025-03-23 15:28] VITALS: BP 179/73; PULSE 81; RESP 18; TEMP 36.6; O2SAT 96; BMI 25.5
--- NOTE | 2025-03-23 16:46 | ED.GENADULT ---
HPI - General Adult General Date Seen: 03/23/25 Chief complaint: Laceration/Wound Stated complaint: Fell, cut left arm Time Seen by Provider: 03/23/25 16:44 History of Present Illness HPI narrative: 84-year-old female presenting by private car today the ER today, accompanied by her family, with concern for an arm wound. She was walking today when she had her left knee gave out and she got tangled up with her walker. She fell and directly on her left elbow. She initially thought she only bump her left elbow but then noted she was bleeding. When she checked it out and ran with her family's assistance she relates she has a fairly long, curving skin tear on the proximal forearm, just distal to her left elbow. She does not think her left elbow is broken and she is able to move it normally. No other injuries from the fall. She is not having any knee pain. She did not hit her head. She is unsure of her last tetanus (per [facility] medical record it was in it 2016) Related Data Home Medications ?Medication ?Instructions ?Recorded ?Confirmed aspirin 81 mg tablet,delayed 81 mg PO DAILY 10/04/21 05/30/24 release (Adult Aspirin Regimen) multivitamin (Multiple Vitamins 1 tab PO QDAY 11/26/21 06/21/24 tablet) alendronate 70 mg tablet 70 mg PO SILVA 02/28/22 06/21/24 calcium 600 mg (as 1 cap PO DAILY 02/28/22 06/21/24 carbonate)-vitamin D3 12.5 mcg (500 unit) capsule (Calcium with Vit D3) furosemide 20 mg tablet 20 mg PO BID 02/28/22 07/15/24 losartan 50 mg tablet 50 mg PO DAILY 02/28/22 07/15/24 acetaminophen 500 mg tablet 1,000 mg PO Q6H PRN 07/13/22 06/21/24 (Acetaminophen Extra Strength) methenamine hippurate 1 gram tablet 1 g PO BID 11/26/22 07/15/24 benzocaine 20 % mucosal gel 1 applic mucous membrane QID PRN 05/14/24 05/30/24 clotrimazole 1 % topical cream 1 applic topical BID 05/14/24 05/30/24 gabapentin 100 mg capsule 100 mg PO 3XD 07/15/24 07/15/24 Previous Rx's ?Medication ?Instructions ?Recorded Magic Mouthwash 5 ml PO Q4H PRN #120 mL 05/04/24 (Lidocaine/Benadryl/Maalox) 120 mL suspension apixaban 5 mg tablet (Eliquis) 5 mg PO BID #60 tabs 05/30/24 gabapentin 100 mg capsule 100 mg PO TID #90 caps 07/16/24 levofloxacin 250 mg tablet 250 mg PO DAILY #14 tabs 07/16/24 prednisone 5 mg tablet 5 mg PO DAILY #30 tabs 07/16/24 Allergies Allergy/AdvReac Type Severity Reaction Status Date / Time clonidine Allergy Mild Hallucinati Verified 06/21/24 16:33 ng leflunomide Allergy Mild Hallucinati Verified 06/21/24 16:33 ng lisinopril Allergy Mild increased Verified 06/21/24 16:33 creatinine methotrexate Allergy Mild did not Verified 06/21/24 16:33 feel well hydrocodone Allergy Unknown Vomiting Verified 06/21/24 16:33 oxycodone Allergy Unknown Verified 06/21/24 16:33 Opioids - Morphine Analogues Allergy Verified 06/21/24 16:33 Sulfa (Sulfonamide Allergy Verified 06/21/24 16:33 Antibiotics) surgical glue Allergy Uncoded 04/30/24 18:36 [facility] Medical History Left lumbar radiculopathy ?M54.16 - Radiculopathy, lumbar region (ICD-10) Sepsis ?A41.9 - Sepsis, unspecified organism (ICD-10) Breast mass, right ?N63.10 - Unspecified lump in the right breast, unspecified quadrant (ICD-10) MRSA infection ?A49.02 - Methicillin resistant Staphylococcus aureus infection, unspecified site (ICD-10) Neurocardiogenic pre-syncope ?R55 - Syncope and collapse (ICD-10) Physical deconditioning ?R53.81 - Other malaise (ICD-10) Closed fracture of distal radius and ulna ?S52.509A - Unspecified fracture of the lower end of unspecified radius, initial encounter for closed fracture (ICD-10) ?S52.609A - Unspecified fracture of lower end of unspecified ulna, initial encounter for closed fracture (ICD-10) Post-traumatic osteoarthritis, left wrist ?M19.132 - Post-traumatic osteoarthritis, left wrist (ICD-10) Closed fracture of left distal radius ?S52.502A - Unspecified fracture of the lower end of left radius, initial encounter for closed fracture (ICD-10) Closed fracture of left proximal humerus ?S42.202A - Unspecified fracture of upper end of left humerus, initial encounter for closed fracture (ICD-10) Lower extremity edema ?R60.0 - Localized edema (ICD-10) Pneumonia ?J18.9 - Pneumonia, unspecified organism (ICD-10) Gram-negative bacteremia ?R78.81 - Bacteremia (ICD-10) Lung nodules ?R91.8 - Other nonspecific abnormal finding of lung field (ICD-10) Sensorineural hearing loss, bilateral ?H90.3 - Sensorineural hearing loss, bilateral (ICD-10) Prediabetes ?R73.03 - Prediabetes (ICD-10) Presence of neurostimulator ?Z96.82 - Presence of neurostimulator (ICD-10) Sacral nerve stimulator present ?Z96.82 - Presence of neurostimulator (ICD-10) Recurrent urinary tract infection ?N39.0 - Urinary tract infection, site not specified (ICD-10) Hyperlipidemia ?E78.5 - Hyperlipidemia, unspecified (ICD-10) History of DVT (deep vein thrombosis) ?Z86.718 - Personal history of other venous thrombosis and embolism (ICD-10) Stage 3 chronic kidney disease ?N18.30 - Chronic kidney disease, stage 3 unspecified (ICD-10) Rheumatoid arthritis ?M06.9 - Rheumatoid arthritis, unspecified (ICD-10) High blood pressure ?I10 - Essential (primary) hypertension (ICD-10) Osteoarthritis ?M19.90 - Unspecified osteoarthritis, unspecified site (ICD-10) Surgical History S/P ORIF (open reduction internal fixation) fracture (12/06/21) ?Z98.890 - Other specified postprocedural states (ICD-10) ?Z87.81 - Personal history of (healed) traumatic fracture (ICD-10) S/P ORIF (open reduction internal fixation) fracture ?Z98.890 - Other specified postprocedural states (ICD-10) ?Z87.81 - Personal history of (healed) traumatic fracture (ICD-10) S/P total knee arthroplasty ?Z96.659 - Presence of unspecified artificial knee joint (ICD-10) H/O hysterectomy with oophorectomy History of cholecystectomy ?Z90.49 - Acquired absence of other specified parts of digestive tract (ICD-10) Family History Mother Stroke Rheumatoid arthritis Brother Diabetes Coronary artery disease Father Pancreatic cancer Social History Narrative: patient lives independently with her significant other, Cirilo Chambers. She has a niece, Peg. Those 2 would be healthcare power of workers compensation defense attorney. Code status is full. What is your current living situation?: I presently have a place to live Problems where you live: no known problems Problems where you live details: NA In the past 12 months, utilities in danger of being shut off: no In past 12 months, lack of transportation kept you from medical appts, meetings, work, or getting things needed for daily living: no In the past 12 mos, have been you worried that your food would run out before you had money to buy more?: never true In the past 12 mos, the food you bought just didn't last and you didn't have money to buy more?: never true Highest level of school completed/degree received: Associate degree: occupational, technical, vocational program Smoking Status: Never smoker Do you use any of these nicotine containing products: None Second hand tobacco smoke exposure: No How often do you have a drink containing alcohol: never How often do you have six or more drinks on one occasion: Never AUDIT-C Alcohol total score: 0 Non-prescribed substance use: denies use Caffeine: Yes How often does anyone, including family, friends and others, physically hurt you: never How often does anyone, including family, friends and others, insult or talk down to you: never How often does anyone, including family, friends and others, threaten you with harm: never How often does anyone, including family, friends and others, scream or curse at you: never Are you using contraception or practicing any form of control: No service: No Exam Narrative: Exam Narrative: Constitutional: Appears well-developed and well-nourished. Alert. Conversant. Non toxic. HENT: Head: Atraumatic. Nose: Nose normal. Hard of hearing. Wearing hearing aids Mouth/Throat: Oral mucosa is clear . Mucous membranes are moist. no trismus. Pharynx normal. Eyes: Conjunctivae normal. EOM normal. Pupils equal, round, and reactive to light. No scleral icterus. Neck: Normal range of motion. Neck supple. No tracheal deviation present. Cardiovascular: Normal rate, regular rhythm. Symmetric radial artery pulses Pulmonary/Chest: Effort normal. No stridor. No respiratory distress. Musculoskeletal: RUE: Normal range of motion. No tenderness. No deformity LUE: She has 8-10 cm curvilinear skin tear on the left elbow/proximal forearm affecting the dorsal/radial aspect. No active bleeding. No foreign body. Some of the skin from the skin tear is rolled under and it leaves a roughly 6 cm oval-shaped area of exposed dermis. I am able to gently use forceps to unroll the skin and completely cover the exposed area. She is not having any bony tenderness or deformity. Normal range of motion in her shoulder, elbow, forearm, wrist. Intact distal median, radial, ulnar nerve sensory function. Normal distal cap refill.. RLE: Normal range of motion. No edema. No tenderness. No deformity LLE: Normal range of motion. No edema. No tenderness. No deformity Neurological: Alert and oriented to person, place, and time. Normal strength. CN II-VII intact. No sensory deficit. GCS eye subscore is 4. GCS verbal subscore is 5. GCS motor subscore is 6. Normal coordination Skin: Skin is warm and dry. No rash noted. No pallor. Normal capillary refill. Psychiatric: Normal mood. Normal affect. Const: Vital Signs, click to edit/add: Vital Signs - 24 hr 03/23/25 15:28 Temperature 97.8 F Pulse Rate [Pulse Oximeter] 81 Respiratory Rate 18 Blood Pressure [Ri ght Upper Arm] 179/73 H Pulse Oximetry 96 Oxygen Delivery Me thod Room Air Course Vital Signs Vital signs: Initial Vital Signs Temperature 97.8 F 03/23/25 15:28 Temperature Source Temporal Artery Scan 03/23/25 15:28 Pulse Rate 81 03/23/25 15:28 Respiratory Rate 18 03/23/25 15:28 Blood Pressure 179/73 H 03/23/25 15:28 Blood Pressure Mean 108 H 03/23/25 15:28 Pulse Oximetry 96 03/23/25 15:28 Oxygen Delivery Method Room Air 03/23/25 15:28 Vital Signs Temperature 97.8 F 03/23/25 15:28 Pulse Rate 81 03/23/25 15:28 Respiratory Rate 18 03/23/25 15:28 Blood Pressure 179/73 H 03/23/25 15:28 Pulse Oximetry 96 03/23/25 15:28 Oxygen Delivery Method Room Air 03/23/25 15:28 Temperature 97.8 F 03/23/25 15:28 Pulse Rate 81 03/23/25 15:28 Respiratory Rate 18 03/23/25 15:28 Blood Pressure 179/73 H 03/23/25 15:28 Pulse Oximetry 96 03/23/25 15:28 Oxygen Delivery Method Room Air 03/23/25 15:28 Medical Decision Making MDM Narrative Medical decision making narrative: Findings and exam are consistent with an uncomplicated left elbow skin tear which was repaired as noted above. There is no evidence at this time to suggest any associated fracture or foreign body. There is no evidence to suggest tendon or arterial injury and patient is neurologically in tact. At this point we free she does not need elbow x-rays.. Indications to seek urgent reevaluation and signs of infection (including but not limited to increasing pain, redness, swelling, fevers, and drainage) were reviewed. Tetanus is up-to-date. This is a clean and non-contaminated wound in which prophylactic antibiotics are not indicated. An understanding of the discharge instructions and need for follow up were verbally confirmed. Discharge Plan Discharge Clinical Impression: Skin tear of left upper extremity Patient Disposition: Home, Self-Care Condition: Stable Instructions: Skin Tear (ED) Additional Instructions: As we discussed, we were able to close your skin tear today using Steri-Strips. Please keep a dry gauze dressing over the Steri-Strips every day to help protect the Steri-Strips and protect her elbow. Avoid activities that require a lot of bending or stretching of her elbow because this can put pressure on the wound edge and pull the Steri-Strips off. If he notice that the Steri-Strips are peeling use, you can treat trim off the peeling edge. If one of the Steri-Strips fall off, you can replace it with 1 of the spare Steri-Strips that you have. Please try to keep the Steri-Strips in place for about the next 10-14 days. After that it is okay for them to peel off. Watch carefully for signs of infection, such as redness, swelling, or pus draining from your wound. If you have any concerns, please come back to the ER or see your doctor right away. Prescriptions: No Action methenamine hippurate 1 gram tablet 1 g PO BID multivitamin [Multiple Vitamins] Tablet 1 tab PO QDAY aspirin [Adult Aspirin Regimen] 81 mg tablet,delayed release (DR/EC) 81 mg PO DAILY Magic Mouthwash (Lidocaine/Benadryl/Maalox) 120 mL suspension 5 ml PO Q4H PRNQty: 120 0RF Rx Instructions: Lidocaine Viscous 2 % mucosal solution 40 mL; Maalox 200 mg-200 mg-20 mg/5 mL oral suspension 40 mL; Benadryl 12.5 mg/5 mL oral elixir 40 mL; Per 120 mL SWISH AND SPIT. MAY COMPOUND IF FIRST PRODUCT IS NOT AVAILABLE. Eliquis 5 mg tablet 5 mg PO BID Qty: 60 0RF Rx Instructions: 10 mg twice daily for 7 days. Then 5 mg twice a day until follow up. gabapentin 100 mg capsule 100 mg PO 3XD gabapentin 100 mg Capsule 100 mg PO TID Qty: 90 0RF levofloxacin 250 mg tablet 250 mg PO DAILY Qty: 14 0RF prednisone 5 mg Tablet 5 mg PO DAILY Qty: 30 0RF calcium carbonate-vitamin D3 [Calcium 600 with Vitamin D3] 600 mg-12.5 mcg (500 unit) capsule 1 cap PO DAILY losartan 50 mg tablet 50 mg PO DAILY furosemide 20 mg tablet 20 mg PO BID alendronate 70 mg tablet 70 mg PO SILVA Patient Comments: TAKE 1 TABLET BY MOUTH EVERY 7 DAYS ON AN EMPTY STOMACH. REMAIN UPRIGHT FOR 30 MINUTES. TAKE WITH 8 OUNCES OF WATER acetaminophen [Acetaminophen Extra Strength] 500 mg tablet 1,000 mg PO Q6H PRN benzocaine 20 % gel 1 applic MUCOUS MEMBRANE QID PRN Rx Instructions: Apply 0.5 g topically to affected area(s) 4 times daily if needed for Tooth Pain (for lip pain). Apply a thin layer to affected areas inside mouth up to 4 times daily. clotrimazole 1 % cream 1 applic TOPICAL BID Rx Instructions: Apply topically to affected area(s) two times daily. Follow Up/Referrals: Constanza Cardozo MD [Primary Care Provider, Obstetrics] Stand Alone Forms: [facility] Info Instructions Procedures Laceration Left elbow skin tear: Site: upper extremity (Left elbow skin tear) Side (If applicable): left Size (cm): 10 Description: linear Depth: simple, single layer Skin layer closed with: other (Sterile cleansing with sterile gauze and saline. Wound was closed using Steri-Strips and benzoin. We avoided Dermabond because she does have a contact dermatitis from that skin glue.)
== END 2025-03-23 17:23 | disposition home or self-care (01) ==
LOC: ED 17:15
PROVIDERS: Emergency Provider Emergency Medicine; PCP Family Medicine
DX: S51.012A Laceration without foreign body of left elbow, initial encounter (principal); W01.198A Fall on same level from slipping, tripping and stumbling with subsequent striking against other object, initial encounter
CPT/HCPCS: 99282; 99283